=== PATIENT | female | born 1945 | race Caucasian/White ===

== ENCOUNTER 2016-12-05 10:52 | Inpatient (IN) | payer MEDICARE, OTHER ==
[~2016-12-05] VITALS: Ht 152.4 cm; Wt 77.1 kg
[~2016-12-05 10:52] MED LIST: ACET500T68 PO; ALBU0.63 NEB; ALPR0.5T6 PO; ASPI81TA2 PO; ATOR10TA60 PO; CEPH500C PO; CHOL2000 PO; CLON0.2T PO; COLE1TAB2 PO; DARB100D SQ; DARB10SY IJ; DICL100G7 TP; DIPH50DI IJ; FAMO20TA5 PO; FENT100D IV; FURO-68 PO; FURO40TA4 PO; GABA-585 PO; GLIP5TAB10 PO; HYDR-2666 PO; HYDR-2868 PO; HYDROCODONE PO; INSU100C SQ; INSU100C4 SQ; INSU100I13 SQ; INSU100I17 SQ; INSU100I27 SQ; INSU100V31 SQ; INSU100V8 SQ; ISOS30TA17 PO; LACT20SO PO; LEVO100T5 PO; LEVO500T38 PO; LEVO75TA5 PO; LISI-334 PO; MAGN400C PO; MECL25TA3 PO; METH-37 PO; METO2.5T5 PO; METO25TA4 PO; METO25TA9 PO; MORP2CAR IV; MULT-208 PO; NAPR220C4 PO; NITR0.4T6 SL; OMEP20CA9 PO; ONDA-35 PO; ONDA4TAB12 PO; PANT40TA5 PO; POTA20TA12 PO; PRED-220 PO; RIFA550T PO; SERT50TA8 PO; SIMV20TA PO; SPIR50TA PO; ZOLP5TAB5 PO; [UNRECOGNIZED DRUG - CODE] IV; welchol PO
[2016-12-05 13:48] LABS: BILIRUBIN,URINE NEGATIVE (NEG); GLUCOSE,URINE >=1000 mg/dL (NEG); NITRITE,URINE NEGATIVE (NEG); PROTEIN,URINE 100 mg/dL (NEG-TRACE); UROBILINOGEN,URINE 0.2 mg/dL (0.2 mg/dL)
--- NOTE | 2016-12-05 14:05 | ED.ADGEN ---
Past Medical History Past Medical History: Asthma, CHF, COPD, CVA, Depression, Diabetes-Type II, GERD, High Cholesterol, Hypertension, Hypothyroid, Renal Disease, Renal Failure , Other Additional Past Medical Histor: vertigo, Charcoe Qiana Tooth, neuropathy, Cirrhosis Past Surgical History: Hysterectomy, Other Additional Past Surgical Histo: bilat cataracts, L knee, bilat carpal tunnel, R trigger finger, R foot Alcohol Use: None Drug Use: None Adult General Chief Complaint Chief Complaint: MULTIPLE COMPLAINTS HPI HPI Patient is a 71 year old woman, history of type II diabetes mellitus, end- stage renal disease l disease on hemodialysis, hypertension, hyperlipidemia, CHF , COPD, CVA, Zktwbbm-Bxwar-Szhzs disease, who presents to the emergency department with complaint of difficulty moving her right upper extremity. Patient states that she did so last night were her arm felt like it was curled, and she was unable to flex or extend, states that her rubbed her hand and her forearm, and eventually did relax and she is able to use her hand again. States that she had some numbness in the right arm and hand as well, also in the right lower extremity. She states that this occurred this morning for a second time, both times it lasted about 50-30 minutes, currently is resolved with that she has some residual numbness in these extremities at this time. Denies any vision changes, any headache, any injuries, any other areas of weakness, numbness or tingling. States she had similar symptoms previously, that time she had a stroke. Review of Systems Review of Systems Constitutional: Denies fever or chills. [] Eyes: Denies change in visual acuity. [] HENT: Denies nasal congestion or sore throat. [] Respiratory: Denies cough or shortness of breath. [] Cardiovascular: Denies chest pain or edema. [] GI: Denies abdominal pain, nausea, vomiting, bloody stools or diarrhea. [] : Denies dysuria. [] Musculoskeletal: Denies back pain or joint pain. [] Integument: Denies rash. [] Neurologic: Denies headache, weakness and numbness in the right upper and lower extremity. Endocrine: Denies polyuria or polydipsia. [] Lymphatic: Denies swollen glands. [] Psychiatric: Denies depression or anxiety. [] Allergies Allergies Allergies Coded Allergies Type Severity Reaction Last Updated Verified adhesive Allergy Intermediate Rash 04/09/16 Yes Physical Exam Physical Exam Constitutional: Well developed, well nourished, no acute distress, non-toxic appearance. [] HENT: Normocephalic, atraumatic, bilateral external ears normal, oropharynx moist, no oral exudates, nose normal. [] Eyes: PERRLA, EOMI, conjunctiva normal, no discharge. [] Neck: Normal range of motion, no tenderness, supple, no stridor. [] Cardiovascular:Heart rate regular rhythm, no murmur [] Lungs & Thorax: Bilateral breath sounds clear to auscultation [] Abdomen: Bowel sounds normal, soft, no tenderness, no masses, no pulsatile masses. [] Skin: Warm, dry, no erythema, no rash. [] Back: No tenderness, no CVA tenderness. [] Extremities: No tenderness, no cyanosis, no clubbing, ROM intact, no edema. [] Neurologic: Alert and oriented X 3, normal motor function, normal sensory function, no focal deficits noted. [] Psychologic: Affect normal, judgement normal, mood normal. [] Current Patient Data Vital Signs Vital Signs Date Time Temp Pulse Resp B/P Pulse Ox O2 Delivery O2 Flow Rate FiO2 12/05/16 15:00 68 17 188/80 96 Room Air 12/05/16 13:07 98.3 98.3 Lab Values Laboratory Tests Test 12/05/16 13:30 12/05/16 14:15 Urine Collection Type Unknown Urine Color Yellow Urine Clarity Turbid Urine pH 5.0 Urine Specific Decker 1.015 Urine Protein 100mg/dL (NEG-TRACE) Urine Glucose (UA) >=1000mg/dL (NEG) Urine Ketones (Stick) Negativemg/dL (NEG) Urine Blood Moderate (NEG) Urine Nitrite Negative (NEG) Urine Bilirubin Negative (NEG) Urine Urobilinogen Dipstick 0.2mg/dL (0.2 mg/dL) Urine Leukocyte Esterase Large (NEG) Urine RBC 0/HPF (0-2) Urine WBC Tntc/HPF (0-4) Urine Squamous Epithelial Cells Few/LPF Urine Bacteria Few/HPF (0-FEW) Urine Opiates Screen Neg (NEG) Urine Methadone Screen Neg (NEG) Urine Barbiturates Neg (NEG) Urine Phencyclidine Screen Neg (NEG) Urine Amphetamine/Methamphetamine Neg (NEG) Urine Benzodiazepines Screen Neg (NEG) Urine Cocaine Screen Neg (NEG) Urine Cannabinoids Screen Neg (NEG) Urine Ethyl Alcohol Neg (NEG) White Blood Count 3.3x10^3/uL (4.0-11.0) L Red Blood Count 3.49x10^6/uL (3.50-5.40) L Hemoglobin 10.8g/dL (12.0-15.5) L Hematocrit 30.7% (36.0-47.0) L Mean Corpuscular Volume 88fL (79-100) Mean Corpuscular Hemoglobin 31pg (25-35) Mean Corpuscular Hemoglobin Concent 35g/dL (31-37) Red Cell Distribution Width 15.5% (11.5-14.5) H Platelet Count 45x10^3/uL (140-400) L Neutrophils (%) (Auto) 76% (31-73) H Lymphocytes (%) (Auto) 14% (24-48) L Monocytes (%) (Auto) 7% (0-9) Eosinophils (%) (Auto) 2% (0-3) Basophils (%) (Auto) 1% (0-3) Neutrophils # (Auto) 2.5x10^3uL (1.8-7.7) Lymphocytes # (Auto) 0.5x10^3/uL (1.0-4.8) L Monocytes # (Auto) 0.2x10^3/uL (0.0-1.1) Eosinophils # (Auto) 0.1x10^3/uL (0.0-0.7) Basophils # (Auto) 0.0x10^3/uL (0.0-0.2) Prothrombin Time 15.8SEC (11.7-14.0) H Prothrombin Time INR 1.3 (0.8-1.1) H PTT 39SEC (24-38) H Sodium Level 139mmol/L (136-145) Potassium Level 4.5mmol/L (3.5-5.1) Chloride Level 103mmol/L (98-107) Carbon Dioxide Level 26mmol/L (21-32) Anion Gap 10 (6-14) Blood Urea Nitrogen 45mg/dL (7-20) H Creatinine 3.9mg/dL (0.6-1.0) H Estimated GFR (Cockcroft-Gault) 11.4 BUN/Creatinine Ratio 12 (6-20) Glucose Level 461mg/dL (70-99) H Calcium Level 8.0mg/dL (8.5-10.1) L Phosphorus Level 4.9mg/dL (2.6-4.7) H Magnesium Level 2.0mg/dL (1.8-2.4) Total Bilirubin 0.8mg/dL (0.2-1.0) Aspartate Amino Transferase (AST) 18U/L (15-37) Alanine Aminotransferase (ALT) 27U/L (14-59) Alkaline Phosphatase 219U/L (46-116) H Troponin I Quantitative 0.020ng/mL (0.000-0.055) VI-Qmr-Y-Type Natriuretic Peptide 3921pg/mL (0-124) H Total Protein 6.7g/dL (6.4-8.2) Albumin 3.1g/dL (3.4-5.0) L Albumin/Globulin Ratio 0.9 (1.0-1.7) L Laboratory Tests 12/05/16 14:15 Laboratory Tests 12/05/16 14:15 EKG EKG EC: Sinus rhythm, heart rate 69 bpm, left axis deviation, QTC of 426, VA of 224, QRS of 80, no ST elevations or depressions, aside from left axis deviation, no other significant abnormalities identified. As interpreted by me. Radiology/Procedures Radiology/Procedures [] [facility] [address] [place], [place] [id number] IMAGING REPORT Signed PATIENT: YIN DIAZ ACCOUNT: [id number] : 1945 LOCATION: ER AGE: 71 SEX: F EXAM STATUS: REG ER ORD. PHYSICIAN: CAROLYN BOLAND DO REASON: LUE weakness PROCEDURE: CHEST AP ONLY Portable chest, 12/05/2016: History: Left upper extremity weakness Comparison is made to a study from 08/23/2016. The heart is enlarged. The pulmonary vascularity is at the upper limits of normal. No pulmonary infiltrates are seen. There is slight blunting of the lateral costophrenic angle suggesting a small amount of pleural fluid. IMPRESSION: 1. Cardiomegaly. 2. Probable tiny pleural effusions. DICTATED and SIGNED BY: RUPALI SLATER MD DATE: 12/05/16 1432 CC: CATHLEEN OLGUIN; CAROLYN BOLAND DO ~ Impressions: [facility] [address] [place] [address] IMAGING REPORT Signed PATIENT: YIN DIAZ ACCOUNT: [id number] : 1945 LOCATION: ER AGE: 71 SEX: F EXAM STATUS: REG ER ORD. PHYSICIAN: CAROLYN BOLAND DO REASON: LUE weakness PROCEDURE: CT HEAD WO CONTRAST CT of the head without contrast, 12/05/2016: History: Left upper extremity weakness Comparison is made to a study from 08/23/2016. There is moderate cerebral atrophy. The ventricles are within normal limits in size. There is no shift of the midline structures. There is no evidence of acute intracranial hemorrhage or mass effect. There is an unchanged single calcification in the right basal ganglia. IMPRESSION: No acute intracranial abnormality is detected. PQRS Compliance Statement: One or more of the following individualized dose reduction techniques were utilized for this examination: 1. Automated exposure control 2. Adjustment of the mA and/or kV according to patient size 3. Use of iterative reconstruction technique DICTATED and SIGNED BY: RUPALI SLATER MD DATE: 12/05/16 1448 CC: CATHLEEN OLGUIN; CAROLYN BOLAND DO ~ Course & Med Decision Making Course & Med Decision Making Pertinent Labs and Imaging studies reviewed. (See chart for details) Patient's examination does not reveal any evidence of motor function at this time, she does have some decreased sensation in the right upper and right lower extremity. CT of the head did not reveal any evidence of acutely concerning findings, patient did miss dialysis today, and her chest x-ray reveals some mild congestion. Laboratory studies not reveal any evidence of electrolyte abnormalities of a contributed to this finding. I did discuss findings as above with Dr. Jones of neurology with the patient, he recommends admission to the hospital for EEG and MRI to further elucidate her symptoms, as a possible focal seizure versus dystonia. Patient has had no recurrence of her symptoms at this time. Patient is agreeable with plan as stated, will also consult Dr. Miller the patient's teacher theater arts for establishing hemodialysis in the hospital. Findings as above discussed with Dr. Ledezma of internal medicine, patient accepted to his service as a full admission to the medical telemetry floor with plan as above. Bridge orders entered per discussion. Dragon Disclaimer Dragon Disclaimer This electronic medical record was generated, in whole or in part, using a voice recognition dictation system. Departure Impression: Primary Impression: Neurological complaint Additional Impressions: End stage renal disease Pulmonary edema Disposition: ADMITTED INPATIENT Admitting Physician: Kira Ledezma Condition: IMPROVED Problem Qualifiers CAROLYN BOLAND DO Dec 05, 2016 14:05
[2016-12-05 14:06] LABS: BACTERIA,URINE FEW /HPF (0-FEW); RBC,URINE 0 /HPF (0-2); SQUAMOUS EPITHELIAL CELL,UR FEW /LPF; WBC,URINE TNTC /HPF (0-4)
[2016-12-05 14:36] LABS: BASO % 1 % (0-3); EOS % 2 % (0-3); HEMATOCRIT 30.7 % (36.0-47.0); HEMOGLOBIN 10.8 g/dL (12.0-15.5); LYMPH # 0.5 x10^3/uL (1.0-4.8); LYMPH % 14 % (24-48); MEAN CORPUSCULAR HEMOGLOBIN 31 pg (25-35); MEAN CORPUSCULAR HGB CONC 35 g/dL (31-37); MEAN CORPUSCULAR VOLUME 88 fL (79-100); MONO % 7 % (0-9); NEUT % 76 % (31-73); PLATELET COUNT 45 x10^3/uL (140-400); RED BLOOD COUNT 3.49 x10^6/uL (3.50-5.40); RED CELL DISTRIBUTION WIDTH 15.5 % (11.5-14.5); WHITE BLOOD COUNT 3.3 x10^3/uL (4.0-11.0)
--- NOTE | 2016-12-05 14:36 | RAD ---
Portable chest, 12/05/2016: History: Left upper extremity weakness Comparison is made to a study from 08/23/2016. The heart is enlarged. The pulmonary vascularity is at the upper limits of normal. No pulmonary infiltrates are seen. There is slight blunting of the lateral costophrenic angle suggesting a small amount of pleural fluid. IMPRESSION: 1. Cardiomegaly. 2. Probable tiny pleural effusions.
[2016-12-05 14:47] LABS: INR 1.3 (0.8-1.1); PROTHROMBIN TIME PATIENT 15.8 SEC (11.7-14.0)
[2016-12-05 14:47] LABS: BARBITURATES NEG (NEG); BENZODIAZEPINES NEG (NEG); CANNABINOIDS NEG (NEG); COCAINE NEG (NEG); METHADONE NEG (NEG); OPIATES NEG (NEG); PHENCYCLIDINE NEG (NEG)
[2016-12-05 14:52] LABS: ETHANOL, URINE NEG (NEG)
--- NOTE | 2016-12-05 14:53 | RAD ---
CT of the head without contrast, 12/05/2016: History: Left upper extremity weakness Comparison is made to a study from 08/23/2016. There is moderate cerebral atrophy. The ventricles are within normal limits in size. There is no shift of the midline structures. There is no evidence of acute intracranial hemorrhage or mass effect. There is an unchanged single calcification in the right basal ganglia. IMPRESSION: No acute intracranial abnormality is detected. PQRS Compliance Statement: One or more of the following individualized dose reduction techniques were utilized for this examination: 1. Automated exposure control 2. Adjustment of the mA and/or kV according to patient size 3. Use of iterative reconstruction technique
[2016-12-05 14:57] LABS: CREATININE 3.9 mg/dL (0.6-1.0); GFR 11.4; POTASSIUM 4.5 mmol/L (3.5-5.1)
--- NOTE | 2016-12-05 15:00 | EKG ---
[facility] [address] [place] [address] Test Date: 2016-12-05 Test Time: 14:27:24 Pat Name: YIN DIAZ Department: Room: Gender: F Hospital Nurse Liaison: : 1945 Requested By: CAROLYN BOLAND Order Number: [id number] Reading MD: Measurements Intervals [place] Rate: 69 P: 27 [place]: 224 QRS: -8 QRSD: 88 T: 72 QT: 396 QTc: 426 Interpretive Statements SINUS RHYTHM PROLONGED OH INTERVAL LEFTWARD AXIS T ABNORMALITY IN HIGH LATERAL LEADS RI6.01 No previous ECG available for comparison
[2016-12-05 15:02] LABS: ALBUMIN 3.1 g/dL (3.4-5.0); ALBUMIN/GLOBULIN RATIO 0.9 (1.0-1.7); TOTAL BILIRUBIN 0.8 mg/dL (0.2-1.0); TOTAL PROTEIN 6.7 g/dL (6.4-8.2)
[2016-12-05 15:25] LABS: PHOSPHORUS 4.9 mg/dL (2.6-4.7)
[2016-12-05] MEDS ORDERED: DEXTROSE 50% 25 GM / 50ML DISP.SYRIN. IV PRN (15:45)
[2016-12-05] MEDS ORDERED: ACETAMINOPHEN 325 MG TABLET. PO PRN (15:45)
[2016-12-05] MEDS ORDERED: LORAZEPAM 0.5 MG TABLET. PO PRN (16:45)
[2016-12-05 17:16] VITALS: BP 164/68
[2016-12-05 17:17] VITALS: BP 164/68
[2016-12-05] MEDS ORDERED: INSU200I SQ (17:39)
[2016-12-05] MEDS ORDERED: INSULIN ASPART 300 UNITS/3 ML INSULN.PEN SQ ONE ×2 (17:45→21:30)
[2016-12-05] MEDS: INSULIN ASPART 300 UNITS/3 ML INSULN.PEN SQ SCH (18:27)
[2016-12-05 19:20] VITALS: BP 173/59
--- NOTE | 2016-12-05 19:23 | ACF ---
Admission Forms Criteria NEUROLOGY GRG Clinical Indications for Admission to Inpatient Care (Place ' X' for any and all applicable criteria): Hospital admission is needed for appropriate care of the patient because of 1 or more of the following: [ ]I. Encephalitis [ ]II. Severe LOW PR[employer]URE BOILER TENDER infections indicated by 1 or more of the following(1)(2)(3) : [ ]a) Intracranial abscess [ ]b) Spinal abscess or myelitis [ ]c) Tuberculous or other nonbacterial, nonviral LOW PRESSURE BOILER TENDER infection(8) [ ]III. Vasculitis and 1 or more of the following(14)(15): []a) Altered mental status that is severe or persistent or other acute neurologic change []b) Psychosis []c) Seizure [ ]IV. Status epilepticus or repetitive seizures not controlled with emergent treatment [A] (7)(8) [ ]V. Altered mental status that is severe or persistent [ ]. Transient alteration in consciousness with high-risk etiology; examples include (12)(13): [ ]a) Cardiovascular source [ ]b) Cataplexy [ ]VII. Cerebral aneurysm requiring ANY ONE of the following(14): [ ]a) IV antihypertensives or vasoactive agents [ ]b) Sedation and analgesia for suspected leak [ ]c) Need for external ventricular drainage and cerebral perfusion pressure monitoring [ ]d) Emergent evaluation to determine need for surgical clipping or endovascular coiling by interventional radiology. If surgery is required ( Also use Craniotomy, Supratentorial, for Surgery of Bleeding Intracranial Aneurysm (for bleeding aneurysm) or Craniotomy, Supratentorial (for nonbleeding aneurysm) as appropriate. [X]VIII. New-onset severe neurologic symptom requiring inpatient care indicated by ANY ONE of the following: [ ]a) Aphasia(15) [ ]b) Weakness (grade 3 or less) [ ]c) Paralysis (eg, hemiplegia) [ ]d) Spasticity(16) [ ]e) Dystonia [ ]e) Ataxia(17) [ ]f) Amnesia(18) [ ]g) Involuntary movements(19) [ ]h) Vertigo [ ] Visual loss [X]i) Other severe neurologic finding (eg, papilledema, mass effect on imaging, myoclonus not treatable at alternative level of care (eg, observation care) [ ]IX. Guillain-Independence syndrome(20) [ ]X. Myasthenia gravis crisis or inpatient monitoring need as indicated by 1 or more of the following(21): [ ]a) Intensive treatment (eg, course of plasmapheresis) with inadequate outpatient situation to monitor patients status [ ]b) Inadequate airway protection [ ]c) Respiratory insufficiency requiring intubation or inpatient. monitoring [ ]d) Progressive dysphagia with failure to thrive [ ]XI. Multiple sclerosis or other acute demyelinating disease requiring inpatient care as indicated by 1 or more of the following (22)(23): [ ]a) Acute severe deterioration requiring inpatient treatment (eg, IV steroids, plasmapheresis, close observation) [ ]b) Acute complication requiring inpatient care (eg, sepsis, severe decubitus, aspiration) [ ]XII.Parkinson disease requiring inpatient care (Also use Optimal Recovery Care Criteria or General Recovery Criteria as appropriate) indicated by 1 or more of the following(25): [ ]a) Infection (eg, aspiration pneumonia) not treatable at alternative level of care [ ]b Dehydration that is severe or persistent [ ]c) Life-threatening agitation or psychotic behavior not treatable on emergency, observation care, or alternative level (eg, residential) basis [ ]d) Severe medication withdrawal effects (eg, freezing, neuroleptic malignant syndrome) not responsive to emergency and observation care treatment ( as appropriate) [ ]e) Other severe manifestation not treatable at alternative level of care [ ]XII. Amyotrophic lateral sclerosis with inpatient care needs as indicated by ANY ONE of the following(26): [ ]a) Acute complications (eg, aspiration pneumonia, sepsis ) requiring inpatient care ( see other optimal Recovery Guideline as appropriate) [ ]b) Dehydration that is severe persistent AND artificial support desired [ ]c) Inadequate airway protection AND artificial support desired [ ]d) Severe ventilatory insufficiency AND artificial support desired [ ]XIII. Myasthenia gravis crisis or inpatient monitoring need as indicated by 1 or more of the following(21): [] a) Inadequate airway protection []b) Respiratory insufficiency requiring intubation or inpatient monitoring []c) Progressive dysphagia with failure to thrive []d) Intensive treatment (e.g., course of plasmapheresis) with inadequate outpatient situation to monitor patients status [ ]XIV. Multiple sclerosis or other acute demyelinating disease requiring inpatient care indicated by 1 or more of the following[C](36)(43)(44)(45)(46): []a) Acute severe deterioration requiring inpatient treatment (eg, IV steroids, plasmapheresis, close observation) []b) Acute complication requiring inpatient care (eg, sepsis, severe decubitus, aspiration) [ ]XV. Intracranial hypertension (e.g., pseudotumor cerebri) requiring inpatient care (e.g., acute visual loss, inadequate oral intake) (47)(48)(49) [ ]XVI. Parkinson disease requiring inpatient care (Also use Optimal Recovery Care Criteria or General Recovery Criteria as appropriate) indicated by 1 or more of the following(25): [] a) Infection (e.g., aspiration pneumonia) not treatable at alternative level of care []b) Volume depletion not responsive to emergency and observation care treatment (as appropriate) []c) Life-threatening agitation or psychotic behavior not treatable on emergency, observation care, or alternative level (e.g., residential) basis []d) Severe medication withdrawal effects (e.g., freezing, neuroleptic malignant syndrome) not responsive to emergency and observation care treatment (as appropriate) []e) Other severe manifestation not treatable at alternative level of care [ ]XVII. Amyotrophic lateral sclerosis with inpatient care needs as indicated by1 or more of the following(42): []a) Acute complications (eg, aspiration pneumonia, sepsis) requiring inpatient care (see other Optimal Recovery Guideline or General Recovery Guideline as appropriate) []b) Dehydration that is severe or persistent AND artificial support desired []c) Inadequate airway protection AND artificial support desired []d) Severe ventilatory insufficiency AND artificial support desired [ ]XVIII. Severe myopathy, neuropathy, or other neuromuscular disease indicated by 1 or more of the following(42)(52)(53)(54): []a ) New-onset severe diffuse weakness (eg, strength 3/5 or less) []b) Severe dysphagia []c) Dyspnea at rest or with minimal exertion (new) []d) Inadequate airway protection []e) Inadequate ventilation indicated by 1 or more of the following : i) Partial pressure of carbon dioxide greater than 44 mm Hg ( 5.9 kPa) (new) ii) Reduced peak expiratory flow rate (new) iii) Vital capacity less than 50% of predicted (less than 15 mL/kg) iv) Peak inspiratory force less negative than -30 cm H2O (- 2942 Pa) [ ]XVII.Complications of congenital or degenerative disease (eg, infection, seizures, dehydration, injury) not responsive to emergency and observation care treatment (as appropriate ) [C](16)(29)(30) [ ]XVIII.Suspected or confirmed nerve or muscle toxic injury, including ANY ONE of the following: [ ]a) Rhabdomyolysis(31) i) Acute renal failure ii) Dehydration that is severe or persistent iii) Altered mental status that is severe or persistent iv) Electrolyte abnormality that remains after emergency or observation level care ( as appropriate) [ ]b) Botulism(32) [ ]c) Other severe toxin-induced sign or symptom [ ]XIX. Neurologic trauma requiring inpatient treatment (medical) indicated by ANY ONE of the following(33)(34): [ ]a) Vital signs or neurologic signs more frequently than every 4 hours [ ]b) Hyperosmolar therapy [ ]c) Respiratory monitoring [ ]d) Intracranial pressure monitoring and treatment [ ]e) Stabilization and immobilization device placement (eg, braces, body jacket) [ ]f) Intubation & mechanical ventilation for airway protection or therapeutic hyperventilation [ ]g) Other treatment or monitoring needed that requires inpatient level of care [ ]XX.Complications of neurologic devices (eg, ventricular shunt, neurostimulator) requiring 1 or more of the following(35)(36): [ ]a) IV antibiotics with monitoring while awaiting culture results [ ]b) Monitoring for hydrocephalus [ ]XXI. Neurology condition symptom, or finding for which emergency and observation care have failed or are not considered appropriate. See General Criteria: Observation Care ISC, General Admission Criteria GRG, or Pediatric General Admission Criteria GRG guideline as appropriate. The original [facility] [employer] content created by [facility] has been revised. The portions of the content which have been revised are identified through the use of italic text or in bold, and [facility] has neither reviewed nor approved the modified material. All other unmodified content is copyright [facility] Please see references footnoted in the original [facility] edition 2016 Admission Criteria Met?: Yes DAVID HAMPTON Dec 05, 2016 19:23
--- NOTE | 2016-12-05 19:26 | PDOC2 ---
NEUROLOGY CONSULT Date of Admission Date of Admission DATE: 12/05/16 TIME: 19:12 Reason for Consult Reason for Consult: IMPRESSION: Right hand spasm x 2 days. Hyperglycemia, glucose 461. Bilateral carpal tunnel syndrome in past. Renal failure on dialysis. Pancytopenia. Thrombocytopenia. Hypocalcemia. UTI DM HTN HLD COPD Hypothyroidism Cardiomegaly. CHF RECOMMENDATIONS/PLAN: Treat medical diseases. Brain MRI was ordered. Lab: see orders. Please consult Hematology. OT/PT. HISTORY OF THE PRESENT ILLNESS: 71-y-old female patient with complicated medical diseases multiple complaints to come to the ER of [facility]. She also complained of right hand intermittent spasm since 12/04, so Neurology was called for consultation. She has renal failure on dialysis and calcium was low. No focalized motor or sensory deficits. PAST MEDICAL HISTORY: Please see above. PAST SURGERY HISTORY: Bilateral carpal tunnel release. Left knee surgery. ALLERGY: Reviewed. MEDICATIONS: Refer to [facility] FAMILY HISTORY: Non contributory. SOCIAL HISTORY: Denies illicit drug use. REVIEW OF SYSTEMS: Constitutional: No malnutrition, cachexia. Head: No traumatic brain or head injury. Skin: No edema, or rash. Ear: No infection, tinnitus. Eyes: No vision loss or color blindness. Nose: No bleeding or purulent discharges. Hearing: Hearing decrease. Neck: No injury. Breast: No history of cancer, masses,or discharges. Cardiac: CHF, HTN, HLD. Pulmonary: COPD. GI: No GI ulcer, GI bleeding. Urinary/genital: UTI. Endocrinologic: Diabetes Mellitus, hypothyroidism Skeletomuscular: No muscular atrophy, deformity. Neurological: see HP. Psychiatric: Denies drug use/abuse. Otherwise, not -alkwr review of systems. PHYSICAL EXAMINATION: General appearance is in subacute distress. HEENT: Normocephalic and nontraumatic. Eyes, nose, ears, and throat are unremarkable. Neck is supple. No lymphadenopathy. No crepitus. Cardiovascular: S1, S2, regular rate and rhythm. Pulmonary: Clear to auscultation bilaterally. Abdomen: Bowel sounds are positive. Extremities: No rash, lesions, or edema. No restriction of range of motion NEUROLOGICAL EXAMINATION: Awake. Oriented to time, place and person. PERRL. EOMI. CN: no focal findings. Muscle tone: within normal. Muscle strength: 4 DTR: 2 Plantar reflex: Flexor response bilaterally Gait: not examined in chair. Sensory exam: no abnormal findings. No cerebellar signs elicited. F-T-N test fine. Right hand spasm mild. Current Medications Current Medications Current Medications Acetaminophen (Tylenol) 650 mg PRN Q4HRS PRN PO FEVER; Start 12/05/16 at 15:45 ; Stop 12/06/16 at 15:44 Insulin Aspart (Novolog) 0-5 UNITS TIDWMEALS SQ Last administered on 12/05/16 18:27; Start 12/05/16 at 17:00 Dextrose (Dextrose 50%-Water Syringe) 12.5 gm PRN Q15MIN PRN IV SEE COMMENTS; Start 12/05/16 at 15:45 Lorazepam (Ativan) 0.5 mg PRN TID PRN PO TREMORS; Start 12/05/16 at 16:45 Insulin Aspart (Novolog) 15 units 1X ONCE SQ Last administered on 12/05/16 18 :27; Start 12/05/16 at 17:45; Stop 12/05/16 at 17:47; Status DC Active Scripts Active Lactulose 20 Gm/30 Ml Solution 30 Gm PO DAILY 30 Days Hydrocodone-Apap 5-325 (Hydrocodone Bit/Acetaminophen) 1 Each Tablet 1 Tab PO PRN Q6HRS PRN Reported Humalog Kwikpen (Insulin Lispro) 200 Unit/1 Ml Insuln.pen 20-30 Unit SQ TID Ondansetron Hcl 4 Mg Tablet 4 Mg PO Q6HRS PRN Zolpidem Tartrate 5 Mg Tablet 5 Mg PO PRN QHS PRN Famotidine 20 Mg Tablet 20 Mg PO DAILY Voltaren (Diclofenac Sodium) 100 Gm Gel..gram. 1 Gm TP TID Alprazolam 0.5 Mg Tablet 0.5 Mg PO Q8HRS PRN Gabapentin 100 Mg Capsule 100 Mg PO TID Levothyroxine Sodium 100 Mcg Tablet 1 Tab PO DAILY Clonidine Hcl 0.2 Mg Tablet 0.2 Mg PO DAILY PRN Xifaxan (Rifaximin) 550 Mg Tablet 1 Tab PO BID Metoprolol Tartrate 25 Mg Tablet 1 Tab PO DAILY Isosorbide Dinitrate 30 Mg Tablet 1 Tab PO DAILY Allergies Allergies: Coded Allergies: adhesive (Verified Allergy, Intermediate, Rash, 04/09/16) TAPE Vitals VITALS Vital Signs Date Time Temp Pulse Resp B/P Pulse Ox O2 Delivery O2 Flow Rate FiO2 12/05/16 17:17 97.5 71 19 164/68 95 Room Air 97.5 Labs Labs Laboratory Tests Test 12/05/16 13:30 12/05/16 14:15 12/05/16 17:22 Urine Collection Type Unknown Urine Color Yellow Urine Clarity Turbid Urine pH 5.0 Urine Specific [place] 1.015 Urine Protein 100mg/dL (NEG-TRACE) Urine Glucose (UA) >=1000mg/dL (NEG) Urine Ketones (Stick) Negativemg/dL (NEG) Urine Blood Moderate (NEG) Urine Nitrite Negative (NEG) Urine Bilirubin Negative (NEG) Urine Urobilinogen Dipstick 0.2mg/dL (0.2 mg/dL) Urine Leukocyte Esterase Large (NEG) Urine RBC 0/HPF (0-2) Urine WBC Tntc/HPF (0-4) Urine Squamous Epithelial Cells Few/LPF Urine Bacteria Few/HPF (0-FEW) Urine Opiates Screen Neg (NEG) Urine Methadone Screen Neg (NEG) Urine Barbiturates Neg (NEG) Urine Phencyclidine Screen Neg (NEG) Urine Amphetamine/Methamphetamine Neg (NEG) Urine Benzodiazepines Screen Neg (NEG) Urine Cocaine Screen Neg (NEG) Urine Cannabinoids Screen Neg (NEG) Urine Ethyl Alcohol Neg (NEG) White Blood Count 3.3x10^3/uL (4.0-11.0) Red Blood Count 3.49x10^6/uL (3.50-5.40) Hemoglobin 10.8g/dL (12.0-15.5) Hematocrit 30.7% (36.0-47.0) Mean Corpuscular Volume 88fL (79-100) Mean Corpuscular Hemoglobin 31pg (25-35) Mean Corpuscular Hemoglobin Concent 35g/dL (31-37) Red Cell Distribution Width 15.5% (11.5-14.5) Platelet Count 45x10^3/uL (140-400) Neutrophils (%) (Auto) 76% (31-73) Lymphocytes (%) (Auto) 14% (24-48) Monocytes (%) (Auto) 7% (0-9) Eosinophils (%) (Auto) 2% (0-3) Basophils (%) (Auto) 1% (0-3) Neutrophils # (Auto) 2.5x10^3uL (1.8-7.7) Lymphocytes # (Auto) 0.5x10^3/uL (1.0-4.8) Monocytes # (Auto) 0.2x10^3/uL (0.0-1.1) Eosinophils # (Auto) 0.1x10^3/uL (0.0-0.7) Basophils # (Auto) 0.0x10^3/uL (0.0-0.2) Prothrombin Time 15.8SEC (11.7-14.0) Prothromb Time International Ratio 1.3 (0.8-1.1) Activated Partial Thromboplast Time 39SEC (24-38) Sodium Level 139mmol/L (136-145) Potassium Level 4.5mmol/L (3.5-5.1) Chloride Level 103mmol/L (98-107) Carbon Dioxide Level 26mmol/L (21-32) Anion Gap 10 (6-14) Blood Urea Nitrogen 45mg/dL (7-20) Creatinine 3.9mg/dL (0.6-1.0) Estimated GFR (Cockcroft-Gault) 11.4 BUN/Creatinine Ratio 12 (6-20) Glucose Level 461mg/dL (70-99) Calcium Level 8.0mg/dL (8.5-10.1) Phosphorus Level 4.9mg/dL (2.6-4.7) Magnesium Level 2.0mg/dL (1.8-2.4) Total Bilirubin 0.8mg/dL (0.2-1.0) Aspartate Amino Transf (AST/SGOT) 18U/L (15-37) Alanine Aminotransferase (ALT/SGPT) 27U/L (14-59) Alkaline Phosphatase 219U/L (46-116) Troponin I Quantitative 0.020ng/mL (0.000-0.055) NL-Adh-P-Type Natriuretic Peptide 3921pg/mL (0-124) Total Protein 6.7g/dL (6.4-8.2) Albumin 3.1g/dL (3.4-5.0) Albumin/Globulin Ratio 0.9 (1.0-1.7) Glucose (Fingerstick) 360mg/dL (70-99) Laboratory Tests Test 12/05/16 13:30 12/05/16 14:15 12/05/16 17:22 Urine Collection Type Unknown Urine Color Yellow Urine Clarity Turbid Urine pH 5.0 Urine Specific [place] 1.015 Urine Protein 100mg/dL (NEG-TRACE) Urine Glucose (UA) >=1000mg/dL (NEG) Urine Ketones (Stick) Negativemg/dL (NEG) Urine Blood Moderate (NEG) Urine Nitrite Negative (NEG) Urine Bilirubin Negative (NEG) Urine Urobilinogen Dipstick 0.2mg/dL (0.2 mg/dL) Urine Leukocyte Esterase Large (NEG) Urine RBC 0/HPF (0-2) Urine WBC Tntc/HPF (0-4) Urine Squamous Epithelial Cells Few/LPF Urine Bacteria Few/HPF (0-FEW) Urine Opiates Screen Neg (NEG) Urine Methadone Screen Neg (NEG) Urine Barbiturates Neg (NEG) Urine Phencyclidine Screen Neg (NEG) Urine Amphetamine/Methamphetamine Neg (NEG) Urine Benzodiazepines Screen Neg (NEG) Urine Cocaine Screen Neg (NEG) Urine Cannabinoids Screen Neg (NEG) Urine Ethyl Alcohol Neg (NEG) White Blood Count 3.3x10^3/uL (4.0-11.0) Red Blood Count 3.49x10^6/uL (3.50-5.40) Hemoglobin 10.8g/dL (12.0-15.5) Hematocrit 30.7% (36.0-47.0) Mean Corpuscular Volume 88fL (79-100) Mean Corpuscular Hemoglobin 31pg (25-35) Mean Corpuscular Hemoglobin Concent 35g/dL (31-37) Red Cell Distribution Width 15.5% (11.5-14.5) Platelet Count 45x10^3/uL (140-400) Neutrophils (%) (Auto) 76% (31-73) Lymphocytes (%) (Auto) 14% (24-48) Monocytes (%) (Auto) 7% (0-9) Eosinophils (%) (Auto) 2% (0-3) Basophils (%) (Auto) 1% (0-3) Neutrophils # (Auto) 2.5x10^3uL (1.8-7.7) Lymphocytes # (Auto) 0.5x10^3/uL (1.0-4.8) Monocytes # (Auto) 0.2x10^3/uL (0.0-1.1) Eosinophils # (Auto) 0.1x10^3/uL (0.0-0.7) Basophils # (Auto) 0.0x10^3/uL (0.0-0.2) Prothrombin Time 15.8SEC (11.7-14.0) Prothromb Time International Ratio 1.3 (0.8-1.1) Activated Partial Thromboplast Time 39SEC (24-38) Sodium Level 139mmol/L (136-145) Potassium Level 4.5mmol/L (3.5-5.1) Chloride Level 103mmol/L (98-107) Carbon Dioxide Level 26mmol/L (21-32) Anion Gap 10 (6-14) Blood Urea Nitrogen 45mg/dL (7-20) Creatinine 3.9mg/dL (0.6-1.0) Estimated GFR (Cockcroft-Gault) 11.4 BUN/Creatinine Ratio 12 (6-20) Glucose Level 461mg/dL (70-99) Calcium Level 8.0mg/dL (8.5-10.1) Phosphorus Level 4.9mg/dL (2.6-4.7) Magnesium Level 2.0mg/dL (1.8-2.4) Total Bilirubin 0.8mg/dL (0.2-1.0) Aspartate Amino Transf (AST/SGOT) 18U/L (15-37) Alanine Aminotransferase (ALT/SGPT) 27U/L (14-59) Alkaline Phosphatase 219U/L (46-116) Troponin I Quantitative 0.020ng/mL (0.000-0.055) UT-Rfs-M-Type Natriuretic Peptide 3921pg/mL (0-124) Total Protein 6.7g/dL (6.4-8.2) Albumin 3.1g/dL (3.4-5.0) Albumin/Globulin Ratio 0.9 (1.0-1.7) Glucose (Fingerstick) 360mg/dL (70-99) GARY LOPES MD Dec 05, 2016 19:25
[2016-12-05] MEDS ORDERED: INSU100I13 SQ (19:51)
[2016-12-05] MEDS ORDERED: METO25TA9 PO (21:26)
[2016-12-05] MEDS ORDERED: CLONIDINE HCL 0.2 MG PO PRN (21:30)
[2016-12-05] MEDS ORDERED: HYDROCODONE/APAP 5/325MG TABLET. PO PRN (21:30)
[2016-12-05] MEDS ORDERED: ALPRAZOLAM 0.5 MG TABLET. PO PRN (21:30)
[2016-12-05] MEDS: ZOLPIDEM 5 MG TABLET. PO PRN (21:58)
[2016-12-05] MEDS: INSULIN DETEMIR 300 UNITS/3 ML INSULN.PEN. SQ SCH (22:02)
[2016-12-05] MEDS: RIFAXIMIN 550 MG TABLET PO SCH (22:02)
--- NOTE | 2016-12-05 23:01 | HP ---
ADMIT DATE: 12/05/2016 CHIEF COMPLAINT: Multiple complaints. HISTORY OF PRESENT ILLNESS: The patient is a pleasant 71-year-old female who has multiple medical problems. Basically, today she complains of right arm weakness. She complains that it is difficult to move. It shakes. She also has some associated neck pain. It appears she may have a possible stroke versus a TIA or even some atypical seizures. I have discussed the case with the ER physician. We are going to admit the patient and consult Neurology. PAST MEDICAL HISTORY: Cirrhosis, CHF, asthma, COPD, stroke, depression, anxiety, GERD, hyperlipidemia, diabetes, hypothyroidism, end-stage renal disease on dialysis, vertigo, Bbidesl-Ttrmn-[id number], neuropathy, cirrhosis, hysterectomy, bilateral cataracts, right trigger finger surgery, right foot surgery, bilateral carpal tunnel surgery. ALLERGIES: ADHESIVE. FAMILY HISTORY: Hypertension and strokes. SOCIAL HISTORY: She quit smoking. She is . 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 MEDICATIONS: Reviewed, please refer to the MRAD. REVIEW OF SYSTEMS: GENERAL: No history of weight change, weakness or fevers. SKIN: No bruising, hair changes or rashes. EYES: No blurred, double or loss of vision. NOSE AND THROAT: No history of nosebleeds, hoarseness or sore throat. HEART: No history of palpitations, chest pain or shortness of breath on exertion. LUNGS: Denies cough, hemoptysis, wheezing or shortness of breath. GASTROINTESTINAL: Denies changes in appetite, nausea, vomiting, diarrhea or constipation. GENITOURINARY: No history of frequency, urgency, hesitancy or nocturia. NEUROLOGIC: She complains of right arm weakness. PSYCHIATRIC: No history of panic, anxiety or depression. ENDOCRINE: No history of heat or cold intolerance, polyuria or polydipsia. EXTREMITIES: Denies muscle weakness, joint pain, pain on walking or stiffness. PHYSICAL EXAMINATION: VITAL SIGNS: Temperature afebrile, pulse 68, respirations 20, blood pressure 174/78. GENERAL: She is alert, cooperative, anxious. HEART: Normal S1, S2. LUNGS: Clear. ABDOMEN: Soft, positive bowel sounds. EXTREMITIES: 1+ edema. SKIN: No rashes. PSYCHIATRIC: She is anxious. VASCULAR: Good capillary refill. ENDOCRINE: No thyromegaly. LYMPHATICS: No cervical nodes. HEMATOPOIETIC: No bruising. NEUROLOGICAL: She is moving all extremities. The right arm is a little contracted at times. It shakes a little bit. It has got decreased screener and blender strength. LABORATORY DATA: White count 3, hemoglobin 10.8, platelets 45. Electrolytes: Sodium 139, potassium 4.5, chloride 103, bicarb 26, BUN 45, creatinine 3.9, glucose 461. CT of the head negative for acute disease. ASSESSMENT AND PLAN: Stroke-like symptoms versus a possible atypical seizure versus a nerve impingement in the neck. The patient has been admitted. We will consult Neurology. She also has pancytopenia. We will consult Hem/Onc, Dr. Gloria Matthews. Frequent labs, PT/OT. Resume home medicines. Cardiac monitoring. Consult Nephrology for dialysis. PROGNOSIS: Guarded. NIAL Jacinta CORREA DO DR: TRAE/susannah JOB#: [id number] / [id number]
[2016-12-05 23:25] VITALS: BP 152/43
[2016-12-06 03:25] VITALS: BP 141/58
[2016-12-06 04:13] LABS: BASO % 1 % (0-3); EOS % 3 % (0-3); HEMATOCRIT 28.2 % (36.0-47.0); HEMOGLOBIN 9.5 g/dL (12.0-15.5); LYMPH # 0.7 x10^3/uL (1.0-4.8); LYMPH % 16 % (24-48); MEAN CORPUSCULAR HEMOGLOBIN 30 pg (25-35); MEAN CORPUSCULAR HGB CONC 34 g/dL (31-37); MEAN CORPUSCULAR VOLUME 88 fL (79-100); MONO % 10 % (0-9); NEUT % 70 % (31-73); PLATELET COUNT 51 x10^3/uL (140-400); RED BLOOD COUNT 3.19 x10^6/uL (3.50-5.40); RED CELL DISTRIBUTION WIDTH 15.2 % (11.5-14.5); WHITE BLOOD COUNT 4.1 x10^3/uL (4.0-11.0)
[2016-12-06 04:26] LABS: CALCIUM 8.1 mg/dL (8.5-10.1); CREATININE 3.8 mg/dL (0.6-1.0); GFR 11.7; POTASSIUM 3.7 mmol/L (3.5-5.1)
[2016-12-06] MEDS: LEVOTHYROXINE 100 MCG TABLET PO SCH (06:04)
[2016-12-06 07:00] VITALS: BP 162/56
[2016-12-06] MEDS: INSULIN ASPART 300 UNITS/3 ML INSULN.PEN SQ SCH ×3 (08:00→17:22)
[2016-12-06] MEDS: DICLOFENAC SODIUM 1% TOPICAL GEL 100GM TUBE. TP SCH ×3 (08:55→20:35)
[2016-12-06] MEDS: LACTULOSE 20 GM/30 ML SOLUTION. PO SCH (08:56)
[2016-12-06] MEDS: RIFAXIMIN 550 MG TABLET PO SCH ×2 (08:56→20:33)
[2016-12-06] MEDS: FAMOTIDINE 20 MG TABLET. PO SCH (08:56)
[2016-12-06] MEDS: GABAPENTIN 100 MG CAPSULE. PO SCH ×3 (08:56→20:33)
[2016-12-06] MEDS ORDERED: ISOSORBIDE MONONITRATE ER 30 MG TAB.ER.24H PO SCH (09:00)
--- NOTE | 2016-12-06 09:19 | PDOC ---
Provider Note Provider Note Hem-Onc consult 1. Normochromic normocytic anemia/pancytopenia due to cirrhosis/ splenomegaly. Bone marrow bx done 08/28/2015, no evidence of malignancy or MDS. 2. Leukopenia. No evidence of infection. 3. Thrombocytopenia 4. Cirrhosis 5. Splenomegaly 20 cm per u/s 08/16/2015. See dictation # [id number] . KEITH SO MD Dec 06, 2016 09:19
--- NOTE | 2016-12-06 10:23 | RAD ---
PROCEDURE MRI brain without contrast. HISTORY Right hand weakness and tremors for 1 day TECHNIQUE Multiplanar, multi sequential non contrast MR imaging was performed of the brain. COMPARISON None FINDINGS There is motion degradation. There is no evidence of recent infarct or cytotoxic edema. There is no midline shift or intra-axial mass effect. There is mild supratentorial atrophy somewhat greater of the parietal lobes, ventricular size within normal limits. There is minimal T2 and FLAIR hyperintense signal abnormality of the supratentorial periventricular white matter, also a couple of small foci of the left emery radiata. There has been lens surgery bilaterally. There is nonspecific increased CSF signal of the optic nerve sheaths bilaterally. There is negligible patchy ethmoid air cell and frontal sinus mucosal thickening. There is patchy mild fluid of the mastoid air cells bilaterally. There is preservation of the major arterial intracranial flow voids at the skull base. Cerebellar tonsils are normal in location. There is no significant abnormality pineal gland or pituitary gland. Nonspecific mild heterogeneous low signal marrow of non expanded clivus. IMPRESSION 1. There is no evidence of a recent infarct or intracranial mass effect. 2. Minimal T2 and FLAIR hyperintense signal abnormality of the supratentorial white matter is most commonly due to chronic microvascular ischemic disease in a patient this age. 3. There is mild supratentorial atrophy relatively greater of the parietal lobes. Electronically signed by: Alonzo Beavers MD (Dec 06, 2016 10:22:01)
[2016-12-06 11:00] VITALS: BP 185/70
--- NOTE | 2016-12-06 11:47 | PDOC2 ---
CONSULT Date of Consult Date of Consult DATE: 12/06/16 TIME: 11:43 Reason for Consult Reason for Consult: ESRD Referring Physician Referring Physician: SUNNY Identification/Chief Complaint Chief Complaint RIGHT ARM AND RIGHT LE WEAKNESS Source Source: Chart review History of Present Illness Reason for Visit: THIS IS A 71 YR OLD WITH COMPLAINTS OF RIGHT ARM AND RIGHT LE WEAKNESS. 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 SHE HAS ESRD AND IS ON OP HD ON TTS. LABS ARE C/W ESRD Past Medical History Cardiovascular: CHF, HTN, Hyperlipidemia, Other Pulmonary: No pertinent hx, Other CENTRAL NERVOUS SYSTEM: CVA, Periperal neuropathy GI: GERD, Other Heme/Onc: Other Hepatobiliary: Cirrhosis Psych: Anxiety, Depression Musculoskeletal: Osteoarthritis, Other Rheumatologic: No pertinent hx Infectious disease: No pertinent hx Renal/: Chronic renal failure Endocrine: Diabetes, Hyperparathyroidism Past Surgical History Past Surgical History: Hysterectomy, Other Family History Family History: No Significant, Hypertension, Other Social History ALCOHOL: none Drugs: None Lives: with Family Current Problem List Problem List Problems Medical Problems: (1) End stage renal disease Status: Acute (2) Neurological complaint Status: Acute (3) Pulmonary edema Status: Acute Current Medications Current Medications Current Medications Acetaminophen (Tylenol) 650 mg PRN Q4HRS PRN PO FEVER; Start 12/05/16 at 15:45 ; Stop 12/06/16 at 15:44 Insulin Aspart (Novolog) 0-5 UNITS TIDWMEALS SQ Last administered on 12/05/16 18:27; Start 12/05/16 at 17:00 Dextrose (Dextrose 50%-Water Syringe) 12.5 gm PRN Q15MIN PRN IV SEE COMMENTS; Start 12/05/16 at 15:45 Lorazepam (Ativan) 0.5 mg PRN TID PRN PO TREMORS; Start 12/05/16 at 16:45 Insulin Aspart (Novolog) 15 units 1X ONCE SQ Last administered on 12/05/16 18 :27; Start 12/05/16 at 17:45; Stop 12/05/16 at 17:47; Status DC Insulin Aspart (Novolog) 20 units 1X ONCE SQ Last administered on 12/05/16 22 :02; Start 12/05/16 at 21:30; Stop 12/05/16 at 21:31; Status DC Alprazolam (Xanax) 0.5 mg PRN Q8HRS PRN PO ANXIETY / AGITATION; Start 12/05/16 at 21:30 Clonidine HCl (Catapres) 0.2 mg PRN DAILY PRN PO ELEVATED BP, SEE COMMENTS; Start 12/05/16 at 21:30 Diclofenac Sodium (Voltaren) 1 ronel TID TP ; Start 12/06/16 at 09:00 Famotidine (Pepcid) 20 mg DAILY PO Last administered on 12/06/16 08:56; Start 12/06/16 at 09:00 Gabapentin (Neurontin) 100 mg TID PO Last administered on 12/06/16 08:56; Start 12/06/16 at 09:00 Acetaminophen/ Hydrocodone Bitart (Lortab 5/325) 1 tab PRN Q6HRS PRN PO SEVERE PAIN; Start 12/05/16 at 21:30 Lactulose 30 gm DAILY PO ; Start 12/06/16 at 09:00 Levothyroxine Sodium (Synthroid) 100 mcg DAILY07 PO Last administered on 06:04; Start 12/06/16 at 07:00 Rifaximin (Xifaxan) 550 mg BID PO Last administered on 12/06/16 08:56; Start 12/05/16 at 22:00 Zolpidem Tartrate (Ambien) 5 mg PRN QHS PRN PO INSOMNIA Last administered on 21:58; Start 12/05/16 at 21:30 Insulin Detemir (Levemir) 50 units QHS SQ Last administered on 12/05/16 22:02 ; Start 12/05/16 at 22:00 Isosorbide Mononitrate (Imdur) 30 mg DAILY PO Last administered on 12/06/16 08 :56; Start 12/06/16 at 09:00 Active Scripts Active Lactulose 20 Gm/30 Ml Solution 30 Gm PO DAILY 30 Days Hydrocodone-Apap 5-325 (Hydrocodone Bit/Acetaminophen) 1 Each Tablet 1 Tab PO PRN Q6HRS PRN Reported Metoprolol Succinate ( Xl ) (Metoprolol Succinate) 25 Mg Tab.er.24h 25 Mg PO DAILY Lantus Solostar (Insulin Glargine,Hum.rec.anlog) 100 Unit/1 Ml Insuln.pen 50 Unit SQ QHS Humalog Kwikpen (Insulin Lispro) 200 Unit/1 Ml Insuln.pen 20-30 Unit SQ TID Ondansetron Hcl 4 Mg Tablet 4 Mg PO Q6HRS PRN Zolpidem Tartrate 5 Mg Tablet 5 Mg PO PRN QHS PRN Famotidine 20 Mg Tablet 20 Mg PO DAILY Voltaren (Diclofenac Sodium) 100 Gm Gel..gram. 1 Gm TP TID Alprazolam 0.5 Mg Tablet 0.5 Mg PO Q8HRS PRN Gabapentin 100 Mg Capsule 100 Mg PO TID Levothyroxine Sodium 100 Mcg Tablet 1 Tab PO DAILY Clonidine Hcl 0.2 Mg Tablet 0.2 Mg PO DAILY PRN Xifaxan (Rifaximin) 550 Mg Tablet 1 Tab PO BID Metoprolol Tartrate 25 Mg Tablet 1 Tab PO DAILY Isosorbide Dinitrate 30 Mg Tablet 1 Tab PO DAILY Allergies Allergies: Coded Allergies: adhesive (Verified Allergy, Intermediate, Rash, 04/09/16) TAPE ROS General: YES: Appetite, Fatigue PSYCHOLOGICAL ROS: YES: Anxiety Eyes: Yes Decreased vision HEENT: YES: Heacaches Respiratory: YES: Cough Gastrointestinal: Yes Constipation Genitourinary: YES Other (ANURIA) Musculoskeletal: Yes Muscular Weakness Neurological: Yes Weakness Skin: Yes Dry Skin Physical Exam General: Alert, Oriented X3, Cooperative, No acute distress HEENT: Atraumatic, PERRLA, EOMI, Mucous membr. moist/pink Lungs: Clear to auscultation, Normal air movement Heart: Regular rate, Normal S2 Abdomen: Normal bowel sounds, Soft, No tenderness Extremities: No clubbing Skin: No significant lesion Neuro: Normal speech Psych/Mental Status: Mental status NL, Mood NL MUSCULOSKELETAL: No deformity, No swelling Vitals VITALS Vital Signs Date Time Temp Pulse Resp B/P Pulse Ox O2 Delivery O2 Flow Rate FiO2 12/06/16 11:00 97.7 74 20 185/70 94 Room Air 97.7 12/06/16 03:25 2.0 Labs Labs Laboratory Tests Test 12/05/16 13:30 12/05/16 14:15 12/05/16 17:22 12/05/16 19:30 Urine Collection Type Unknown Urine Color Yellow Urine Clarity Turbid Urine pH 5.0 Urine Specific [place] 1.015 Urine Protein 100mg/dL (NEG-TRACE) Urine Glucose (UA) >=1000mg/dL (NEG) Urine Ketones (Stick) Negativemg/dL (NEG) Urine Blood Moderate (NEG) Urine Nitrite Negative (NEG) Urine Bilirubin Negative (NEG) Urine Urobilinogen Dipstick 0.2mg/dL (0.2 mg/dL) Urine Leukocyte Esterase Large (NEG) Urine RBC 0/HPF (0-2) Urine WBC Tntc/HPF (0-4) Urine Squamous Epithelial Cells Few/LPF Urine Bacteria Few/HPF (0-FEW) Urine Opiates Screen Neg (NEG) Urine Methadone Screen Neg (NEG) Urine Barbiturates Neg (NEG) Urine Phencyclidine Screen Neg (NEG) Urine Amphetamine/Methamphetamine Neg (NEG) Urine Benzodiazepines Screen Neg (NEG) Urine Cocaine Screen Neg (NEG) Urine Cannabinoids Screen Neg (NEG) Urine Ethyl Alcohol Neg (NEG) White Blood Count 3.3x10^3/uL (4.0-11.0) Red Blood Count 3.49x10^6/uL (3.50-5.40) Hemoglobin 10.8g/dL (12.0-15.5) Hematocrit 30.7% (36.0-47.0) Mean Corpuscular Volume 88fL (79-100) Mean Corpuscular Hemoglobin 31pg (25-35) Mean Corpuscular Hemoglobin Concent 35g/dL (31-37) Red Cell Distribution Width 15.5% (11.5-14.5) Platelet Count 45x10^3/uL (140-400) Neutrophils (%) (Auto) 76% (31-73) Lymphocytes (%) (Auto) 14% (24-48) Monocytes (%) (Auto) 7% (0-9) Eosinophils (%) (Auto) 2% (0-3) Basophils (%) (Auto) 1% (0-3) Neutrophils # (Auto) 2.5x10^3uL (1.8-7.7) Lymphocytes # (Auto) 0.5x10^3/uL (1.0-4.8) Monocytes # (Auto) 0.2x10^3/uL (0.0-1.1) Eosinophils # (Auto) 0.1x10^3/uL (0.0-0.7) Basophils # (Auto) 0.0x10^3/uL (0.0-0.2) Prothrombin Time 15.8SEC (11.7-14.0) Prothromb Time International Ratio 1.3 (0.8-1.1) Activated Partial Thromboplast Time 39SEC (24-38) Sodium Level 139mmol/L (136-145) Potassium Level 4.5mmol/L (3.5-5.1) Chloride Level 103mmol/L (98-107) Carbon Dioxide Level 26mmol/L (21-32) Anion Gap 10 (6-14) Blood Urea Nitrogen 45mg/dL (7-20) Creatinine 3.9mg/dL (0.6-1.0) Estimated GFR (Cockcroft-Gault) 11.4 BUN/Creatinine Ratio 12 (6-20) Glucose Level 461mg/dL (70-99) Calcium Level 8.0mg/dL (8.5-10.1) Phosphorus Level 4.9mg/dL (2.6-4.7) Magnesium Level 2.0mg/dL (1.8-2.4) Total Bilirubin 0.8mg/dL (0.2-1.0) Aspartate Amino Transf (AST/SGOT) 18U/L (15-37) Alanine Aminotransferase (ALT/SGPT) 27U/L (14-59) Alkaline Phosphatase 219U/L (46-116) Troponin I Quantitative 0.020ng/mL (0.000-0.055) AX-Axi-Y-Type Natriuretic Peptide 3921pg/mL (0-124) Total Protein 6.7g/dL (6.4-8.2) Albumin 3.1g/dL (3.4-5.0) Albumin/Globulin Ratio 0.9 (1.0-1.7) Glucose (Fingerstick) 360mg/dL (70-99) Erythrocyte Sedimentation Rate 20 (0-25) Ionized Calcium 1.07mmol/L (1.13-1.32) Test 12/05/16 21:08 12/06/16 03:30 12/06/16 08:09 Glucose (Fingerstick) 339mg/dL (70-99) 129mg/dL (70-99) White Blood Count 4.1x10^3/uL (4.0-11.0) Red Blood Count 3.19x10^6/uL (3.50-5.40) Hemoglobin 9.5g/dL (12.0-15.5) Hematocrit 28.2% (36.0-47.0) Mean Corpuscular Volume 88fL (79-100) Mean Corpuscular Hemoglobin 30pg (25-35) Mean Corpuscular Hemoglobin Concent 34g/dL (31-37) Red Cell Distribution Width 15.2% (11.5-14.5) Platelet Count 51x10^3/uL (140-400) Neutrophils (%) (Auto) 70% (31-73) Lymphocytes (%) (Auto) 16% (24-48) Monocytes (%) (Auto) 10% (0-9) Eosinophils (%) (Auto) 3% (0-3) Basophils (%) (Auto) 1% (0-3) Neutrophils # (Auto) 2.9x10^3uL (1.8-7.7) Lymphocytes # (Auto) 0.7x10^3/uL (1.0-4.8) Monocytes # (Auto) 0.4x10^3/uL (0.0-1.1) Eosinophils # (Auto) 0.1x10^3/uL (0.0-0.7) Basophils # (Auto) 0.0x10^3/uL (0.0-0.2) Sodium Level 142mmol/L (136-145) Potassium Level 3.7mmol/L (3.5-5.1) Chloride Level 106mmol/L (98-107) Carbon Dioxide Level 26mmol/L (21-32) Anion Gap 10 (6-14) Blood Urea Nitrogen 48mg/dL (7-20) Creatinine 3.8mg/dL (0.6-1.0) Estimated GFR (Cockcroft-Gault) 11.7 Glucose Level 92mg/dL (70-99) Calcium Level 8.1mg/dL (8.5-10.1) Triglycerides Level 61mg/dL (0-150) Cholesterol Level 99mg/dL (0-200) LDL Cholesterol, Calculated 37mg/dL (0-100) VLDL Cholesterol, Calculated 12mg/dL (0-40) HDL Cholesterol 50mg/dL (40-60) Cholesterol/HDL Ratio 2.0 Laboratory Tests Test 12/05/16 13:30 12/05/16 14:15 12/05/16 17:22 12/05/16 19:30 Urine Collection Type Unknown Urine Color Yellow Urine Clarity Turbid Urine pH 5.0 Urine Specific [place] 1.015 Urine Protein 100mg/dL (NEG-TRACE) Urine Glucose (UA) >=1000mg/dL (NEG) Urine Ketones (Stick) Negativemg/dL (NEG) Urine Blood Moderate (NEG) Urine Nitrite Negative (NEG) Urine Bilirubin Negative (NEG) Urine Urobilinogen Dipstick 0.2mg/dL (0.2 mg/dL) Urine Leukocyte Esterase Large (NEG) Urine RBC 0/HPF (0-2) Urine WBC Tntc/HPF (0-4) Urine Squamous Epithelial Cells Few/LPF Urine Bacteria Few/HPF (0-FEW) Urine Opiates Screen Neg (NEG) Urine Methadone Screen Neg (NEG) Urine Barbiturates Neg (NEG) Urine Phencyclidine Screen Neg (NEG) Urine Amphetamine/Methamphetamine Neg (NEG) Urine Benzodiazepines Screen Neg (NEG) Urine Cocaine Screen Neg (NEG) Urine Cannabinoids Screen Neg (NEG) Urine Ethyl Alcohol Neg (NEG) White Blood Count 3.3x10^3/uL (4.0-11.0) Red Blood Count 3.49x10^6/uL (3.50-5.40) Hemoglobin 10.8g/dL (12.0-15.5) Hematocrit 30.7% (36.0-47.0) Mean Corpuscular Volume 88fL (79-100) Mean Corpuscular Hemoglobin 31pg (25-35) Mean Corpuscular Hemoglobin Concent 35g/dL (31-37) Red Cell Distribution Width 15.5% (11.5-14.5) Platelet Count 45x10^3/uL (140-400) Neutrophils (%) (Auto) 76% (31-73) Lymphocytes (%) (Auto) 14% (24-48) Monocytes (%) (Auto) 7% (0-9) Eosinophils (%) (Auto) 2% (0-3) Basophils (%) (Auto) 1% (0-3) Neutrophils # (Auto) 2.5x10^3uL (1.8-7.7) Lymphocytes # (Auto) 0.5x10^3/uL (1.0-4.8) Monocytes # (Auto) 0.2x10^3/uL (0.0-1.1) Eosinophils # (Auto) 0.1x10^3/uL (0.0-0.7) Basophils # (Auto) 0.0x10^3/uL (0.0-0.2) Prothrombin Time 15.8SEC (11.7-14.0) Prothromb Time International Ratio 1.3 (0.8-1.1) Activated Partial Thromboplast Time 39SEC (24-38) Sodium Level 139mmol/L (136-145) Potassium Level 4.5mmol/L (3.5-5.1) Chloride Level 103mmol/L (98-107) Carbon Dioxide Level 26mmol/L (21-32) Anion Gap 10 (6-14) Blood Urea Nitrogen 45mg/dL (7-20) Creatinine 3.9mg/dL (0.6-1.0) Estimated GFR (Cockcroft-Gault) 11.4 BUN/Creatinine Ratio 12 (6-20) Glucose Level 461mg/dL (70-99) Calcium Level 8.0mg/dL (8.5-10.1) Phosphorus Level 4.9mg/dL (2.6-4.7) Magnesium Level 2.0mg/dL (1.8-2.4) Total Bilirubin 0.8mg/dL (0.2-1.0) Aspartate Amino Transf (AST/SGOT) 18U/L (15-37) Alanine Aminotransferase (ALT/SGPT) 27U/L (14-59) Alkaline Phosphatase 219U/L (46-116) Troponin I Quantitative 0.020ng/mL (0.000-0.055) UT-Mln-E-Type Natriuretic Peptide 3921pg/mL (0-124) Total Protein 6.7g/dL (6.4-8.2) Albumin 3.1g/dL (3.4-5.0) Albumin/Globulin Ratio 0.9 (1.0-1.7) Glucose (Fingerstick) 360mg/dL (70-99) Erythrocyte Sedimentation Rate 20 (0-25) Ionized Calcium 1.07mmol/L (1.13-1.32) Test 12/05/16 21:08 4/14/17 03:30 12/06/16 08:09 Glucose (Fingerstick) 339mg/dL (70-99) 129mg/dL (70-99) White Blood Count 4.1x10^3/uL (4.0-11.0) Red Blood Count 3.19x10^6/uL (3.50-5.40) Hemoglobin 9.5g/dL (12.0-15.5) Hematocrit 28.2% (36.0-47.0) Mean Corpuscular Volume 88fL (79-100) Mean Corpuscular Hemoglobin 30pg (25-35) Mean Corpuscular Hemoglobin Concent 34g/dL (31-37) Red Cell Distribution Width 15.2% (11.5-14.5) Platelet Count 51x10^3/uL (140-400) Neutrophils (%) (Auto) 70% (31-73) Lymphocytes (%) (Auto) 16% (24-48) Monocytes (%) (Auto) 10% (0-9) Eosinophils (%) (Auto) 3% (0-3) Basophils (%) (Auto) 1% (0-3) Neutrophils # (Auto) 2.9x10^3uL (1.8-7.7) Lymphocytes # (Auto) 0.7x10^3/uL (1.0-4.8) Monocytes # (Auto) 0.4x10^3/uL (0.0-1.1) Eosinophils # (Auto) 0.1x10^3/uL (0.0-0.7) Basophils # (Auto) 0.0x10^3/uL (0.0-0.2) Sodium Level 142mmol/L (136-145) Potassium Level 3.7mmol/L (3.5-5.1) Chloride Level 106mmol/L (98-107) Carbon Dioxide Level 26mmol/L (21-32) Anion Gap 10 (6-14) Blood Urea Nitrogen 48mg/dL (7-20) Creatinine 3.8mg/dL (0.6-1.0) Estimated GFR (Cockcroft-Gault) 11.7 Glucose Level 92mg/dL (70-99) Calcium Level 8.1mg/dL (8.5-10.1) Triglycerides Level 61mg/dL (0-150) Cholesterol Level 99mg/dL (0-200) LDL Cholesterol, Calculated 37mg/dL (0-100) VLDL Cholesterol, Calculated 12mg/dL (0-40) HDL Cholesterol 50mg/dL (40-60) Cholesterol/HDL Ratio 2.0 Assessment/Plan Assessment/Plan IMP ESRD POSSIBLE TIA ANEMIA DM II HTN PLAN START ARANESP HD TOMORROW NEUROLOGY EVAL AND TX WILL FOLLOW OPAL RUBI MD Dec 06, 2016 11:47
--- NOTE | 2016-12-06 14:11 | PDOC ---
PROGRESS NOTES Chief Complaint Chief Complaint cc: arm tightness A/P 1. RUE neuro symptoms, unclear etiology, : MRI negative, EEG pending, 2. End-stage renal disease, on hemodialysis: MTS 3. Nonalcoholic cirrhosis. 4. Hypertension. not controlled. :PRN hydralazine added, labs reviewed. 5. Diabetes mellitus with hyperglycemia. 6. Peripheral neuropathy. 7. Thrombocytopenia. : chronic stable. Vitals Vitals Vital Signs Date Time Temp Pulse Resp B/P Pulse Ox O2 Delivery O2 Flow Rate FiO2 12/06/16 12:58 18 Room Air 12/06/16 12:03 75 179/64 12/06/16 11:00 97.7 94 97.7 12/06/16 03:25 2.0 Physical Exam General: Alert, Oriented X3, Cooperative, No acute distress Heart: Regular rate, Normal S2 Lungs: Clear Abdomen: Normal bowel sounds, Soft, No tenderness Extremities: No clubbing Skin: No significant lesion Labs LABS Laboratory Tests Test 12/05/16 14:15 12/05/16 17:22 12/05/16 19:30 12/05/16 21:08 White Blood Count 3.3x10^3/uL (4.0-11.0) Red Blood Count 3.49x10^6/uL (3.50-5.40) Hemoglobin 10.8g/dL (12.0-15.5) Hematocrit 30.7% (36.0-47.0) Mean Corpuscular Volume 88fL (79-100) Mean Corpuscular Hemoglobin 31pg (25-35) Mean Corpuscular Hemoglobin Concent 35g/dL (31-37) Red Cell Distribution Width 15.5% (11.5-14.5) Platelet Count 45x10^3/uL (140-400) Neutrophils (%) (Auto) 76% (31-73) Lymphocytes (%) (Auto) 14% (24-48) Monocytes (%) (Auto) 7% (0-9) Eosinophils (%) (Auto) 2% (0-3) Basophils (%) (Auto) 1% (0-3) Neutrophils # (Auto) 2.5x10^3uL (1.8-7.7) Lymphocytes # (Auto) 0.5x10^3/uL (1.0-4.8) Monocytes # (Auto) 0.2x10^3/uL (0.0-1.1) Eosinophils # (Auto) 0.1x10^3/uL (0.0-0.7) Basophils # (Auto) 0.0x10^3/uL (0.0-0.2) Prothrombin Time 15.8SEC (11.7-14.0) Prothromb Time International Ratio 1.3 (0.8-1.1) Activated Partial Thromboplast Time 39SEC (24-38) Sodium Level 139mmol/L (136-145) Potassium Level 4.5mmol/L (3.5-5.1) Chloride Level 103mmol/L (98-107) Carbon Dioxide Level 26mmol/L (21-32) Anion Gap 10 (6-14) Blood Urea Nitrogen 45mg/dL (7-20) Creatinine 3.9mg/dL (0.6-1.0) Estimated GFR (Cockcroft-Gault) 11.4 BUN/Creatinine Ratio 12 (6-20) Glucose Level 461mg/dL (70-99) Calcium Level 8.0mg/dL (8.5-10.1) Phosphorus Level 4.9mg/dL (2.6-4.7) Magnesium Level 2.0mg/dL (1.8-2.4) Total Bilirubin 0.8mg/dL (0.2-1.0) Aspartate Amino Transf (AST/SGOT) 18U/L (15-37) Alanine Aminotransferase (ALT/SGPT) 27U/L (14-59) Alkaline Phosphatase 219U/L (46-116) Troponin I Quantitative 0.020ng/mL (0.000-0.055) RY-Gbd-V-Type Natriuretic Peptide 3921pg/mL (0-124) Total Protein 6.7g/dL (6.4-8.2) Albumin 3.1g/dL (3.4-5.0) Albumin/Globulin Ratio 0.9 (1.0-1.7) Glucose (Fingerstick) 360mg/dL (70-99) 339mg/dL (70-99) Erythrocyte Sedimentation Rate 20 (0-25) Ionized Calcium 1.07mmol/L (1.13-1.32) Rheumatoid Factor 36.0IU/mL (0.0-13.9) Test 12/06/16 03:30 12/06/16 08:09 12/06/16 12:00 White Blood Count 4.1x10^3/uL (4.0-11.0) Red Blood Count 3.19x10^6/uL (3.50-5.40) Hemoglobin 9.5g/dL (12.0-15.5) Hematocrit 28.2% (36.0-47.0) Mean Corpuscular Volume 88fL (79-100) Mean Corpuscular Hemoglobin 30pg (25-35) Mean Corpuscular Hemoglobin Concent 34g/dL (31-37) Red Cell Distribution Width 15.2% (11.5-14.5) Platelet Count 51x10^3/uL (140-400) Neutrophils (%) (Auto) 70% (31-73) Lymphocytes (%) (Auto) 16% (24-48) Monocytes (%) (Auto) 10% (0-9) Eosinophils (%) (Auto) 3% (0-3) Basophils (%) (Auto) 1% (0-3) Neutrophils # (Auto) 2.9x10^3uL (1.8-7.7) Lymphocytes # (Auto) 0.7x10^3/uL (1.0-4.8) Monocytes # (Auto) 0.4x10^3/uL (0.0-1.1) Eosinophils # (Auto) 0.1x10^3/uL (0.0-0.7) Basophils # (Auto) 0.0x10^3/uL (0.0-0.2) Sodium Level 142mmol/L (136-145) Potassium Level 3.7mmol/L (3.5-5.1) Chloride Level 106mmol/L (98-107) Carbon Dioxide Level 26mmol/L (21-32) Anion Gap 10 (6-14) Blood Urea Nitrogen 48mg/dL (7-20) Creatinine 3.8mg/dL (0.6-1.0) Estimated GFR (Cockcroft-Gault) 11.7 Glucose Level 92mg/dL (70-99) Calcium Level 8.1mg/dL (8.5-10.1) Triglycerides Level 61mg/dL (0-150) Cholesterol Level 99mg/dL (0-200) LDL Cholesterol, Calculated 37mg/dL (0-100) VLDL Cholesterol, Calculated 12mg/dL (0-40) HDL Cholesterol 50mg/dL (40-60) Cholesterol/HDL Ratio 2.0 Glucose (Fingerstick) 129mg/dL (70-99) 188mg/dL (70-99) Assessment and Plan Assessmemt and Plan Problems Medical Problems: (1) End stage renal disease Status: Acute (2) Neurological complaint Status: Acute (3) Pulmonary edema Status: Acute Problems: Comment Review of Relevant I have reviewed the following items karyn (where applicable) has been applied. Labs Laboratory Tests Test 12/05/16 13:30 12/05/16 14:15 12/05/16 17:22 12/05/16 19:30 Urine Collection Type Unknown Urine Color Yellow Urine Clarity Turbid Urine pH 5.0 Urine Specific [place] 1.015 Urine Protein 100mg/dL (NEG-TRACE) Urine Glucose (UA) >=1000mg/dL (NEG) Urine Ketones (Stick) Negativemg/dL (NEG) Urine Blood Moderate (NEG) Urine Nitrite Negative (NEG) Urine Bilirubin Negative (NEG) Urine Urobilinogen Dipstick 0.2mg/dL (0.2 mg/dL) Urine Leukocyte Esterase Large (NEG) Urine RBC 0/HPF (0-2) Urine WBC Tntc/HPF (0-4) Urine Squamous Epithelial Cells Few/LPF Urine Bacteria Few/HPF (0-FEW) Urine Opiates Screen Neg (NEG) Urine Methadone Screen Neg (NEG) Urine Barbiturates Neg (NEG) Urine Phencyclidine Screen Neg (NEG) Urine Amphetamine/Methamphetamine Neg (NEG) Urine Benzodiazepines Screen Neg (NEG) Urine Cocaine Screen Neg (NEG) Urine Cannabinoids Screen Neg (NEG) Urine Ethyl Alcohol Neg (NEG) White Blood Count 3.3x10^3/uL (4.0-11.0) Red Blood Count 3.49x10^6/uL (3.50-5.40) Hemoglobin 10.8g/dL (12.0-15.5) Hematocrit 30.7% (36.0-47.0) Mean Corpuscular Volume 88fL (79-100) Mean Corpuscular Hemoglobin 31pg (25-35) Mean Corpuscular Hemoglobin Concent 35g/dL (31-37) Red Cell Distribution Width 15.5% (11.5-14.5) Platelet Count 45x10^3/uL (140-400) Neutrophils (%) (Auto) 76% (31-73) Lymphocytes (%) (Auto) 14% (24-48) Monocytes (%) (Auto) 7% (0-9) Eosinophils (%) (Auto) 2% (0-3) Basophils (%) (Auto) 1% (0-3) Neutrophils # (Auto) 2.5x10^3uL (1.8-7.7) Lymphocytes # (Auto) 0.5x10^3/uL (1.0-4.8) Monocytes # (Auto) 0.2x10^3/uL (0.0-1.1) Eosinophils # (Auto) 0.1x10^3/uL (0.0-0.7) Basophils # (Auto) 0.0x10^3/uL (0.0-0.2) Prothrombin Time 15.8SEC (11.7-14.0) Prothromb Time International Ratio 1.3 (0.8-1.1) Activated Partial Thromboplast Time 39SEC (24-38) Sodium Level 139mmol/L (136-145) Potassium Level 4.5mmol/L (3.5-5.1) Chloride Level 103mmol/L (98-107) Carbon Dioxide Level 26mmol/L (21-32) Anion Gap 10 (6-14) Blood Urea Nitrogen 45mg/dL (7-20) Creatinine 3.9mg/dL (0.6-1.0) Estimated GFR (Cockcroft-Gault) 11.4 BUN/Creatinine Ratio 12 (6-20) Glucose Level 461mg/dL (70-99) Calcium Level 8.0mg/dL (8.5-10.1) Phosphorus Level 4.9mg/dL (2.6-4.7) Magnesium Level 2.0mg/dL (1.8-2.4) Total Bilirubin 0.8mg/dL (0.2-1.0) Aspartate Amino Transf (AST/SGOT) 18U/L (15-37) Alanine Aminotransferase (ALT/SGPT) 27U/L (14-59) Alkaline Phosphatase 219U/L (46-116) Troponin I Quantitative 0.020ng/mL (0.000-0.055) FH-Rhg-D-Type Natriuretic Peptide 3921pg/mL (0-124) Total Protein 6.7g/dL (6.4-8.2) Albumin 3.1g/dL (3.4-5.0) Albumin/Globulin Ratio 0.9 (1.0-1.7) Glucose (Fingerstick) 360mg/dL (70-99) Erythrocyte Sedimentation Rate 20 (0-25) Ionized Calcium 1.07mmol/L (1.13-1.32) Rheumatoid Factor 36.0IU/mL (0.0-13.9) Test 12/05/16 21:08 12/06/16 03:30 12/06/16 08:09 12/06/16 12:00 Glucose (Fingerstick) 339mg/dL (70-99) 129mg/dL (70-99) 188mg/dL (70-99) White Blood Count 4.1x10^3/uL (4.0-11.0) Red Blood Count 3.19x10^6/uL (3.50-5.40) Hemoglobin 9.5g/dL (12.0-15.5) Hematocrit 28.2% (36.0-47.0) Mean Corpuscular Volume 88fL (79-100) Mean Corpuscular Hemoglobin 30pg (25-35) Mean Corpuscular Hemoglobin Concent 34g/dL (31-37) Red Cell Distribution Width 15.2% (11.5-14.5) Platelet Count 51x10^3/uL (140-400) Neutrophils (%) (Auto) 70% (31-73) Lymphocytes (%) (Auto) 16% (24-48) Monocytes (%) (Auto) 10% (0-9) Eosinophils (%) (Auto) 3% (0-3) Basophils (%) (Auto) 1% (0-3) Neutrophils # (Auto) 2.9x10^3uL (1.8-7.7) Lymphocytes # (Auto) 0.7x10^3/uL (1.0-4.8) Monocytes # (Auto) 0.4x10^3/uL (0.0-1.1) Eosinophils # (Auto) 0.1x10^3/uL (0.0-0.7) Basophils # (Auto) 0.0x10^3/uL (0.0-0.2) Sodium Level 142mmol/L (136-145) Potassium Level 3.7mmol/L (3.5-5.1) Chloride Level 106mmol/L (98-107) Carbon Dioxide Level 26mmol/L (21-32) Anion Gap 10 (6-14) Blood Urea Nitrogen 48mg/dL (7-20) Creatinine 3.8mg/dL (0.6-1.0) Estimated GFR (Cockcroft-Gault) 11.7 Glucose Level 92mg/dL (70-99) Calcium Level 8.1mg/dL (8.5-10.1) Triglycerides Level 61mg/dL (0-150) Cholesterol Level 99mg/dL (0-200) LDL Cholesterol, Calculated 37mg/dL (0-100) VLDL Cholesterol, Calculated 12mg/dL (0-40) HDL Cholesterol 50mg/dL (40-60) Cholesterol/HDL Ratio 2.0 Laboratory Tests Test 12/05/16 14:15 12/05/16 17:22 12/05/16 19:30 12/05/16 21:08 White Blood Count 3.3x10^3/uL (4.0-11.0) Red Blood Count 3.49x10^6/uL (3.50-5.40) Hemoglobin 10.8g/dL (12.0-15.5) Hematocrit 30.7% (36.0-47.0) Mean Corpuscular Volume 88fL (79-100) Mean Corpuscular Hemoglobin 31pg (25-35) Mean Corpuscular Hemoglobin Concent 35g/dL (31-37) Red Cell Distribution Width 15.5% (11.5-14.5) Platelet Count 45x10^3/uL (140-400) Neutrophils (%) (Auto) 76% (31-73) Lymphocytes (%) (Auto) 14% (24-48) Monocytes (%) (Auto) 7% (0-9) Eosinophils (%) (Auto) 2% (0-3) Basophils (%) (Auto) 1% (0-3) Neutrophils # (Auto) 2.5x10^3uL (1.8-7.7) Lymphocytes # (Auto) 0.5x10^3/uL (1.0-4.8) Monocytes # (Auto) 0.2x10^3/uL (0.0-1.1) Eosinophils # (Auto) 0.1x10^3/uL (0.0-0.7) Basophils # (Auto) 0.0x10^3/uL (0.0-0.2) Prothrombin Time 15.8SEC (11.7-14.0) Prothromb Time International Ratio 1.3 (0.8-1.1) Activated Partial Thromboplast Time 39SEC (24-38) Sodium Level 139mmol/L (136-145) Potassium Level 4.5mmol/L (3.5-5.1) Chloride Level 103mmol/L (98-107) Carbon Dioxide Level 26mmol/L (21-32) Anion Gap 10 (6-14) Blood Urea Nitrogen 45mg/dL (7-20) Creatinine 3.9mg/dL (0.6-1.0) Estimated GFR (Cockcroft-Gault) 11.4 BUN/Creatinine Ratio 12 (6-20) Glucose Level 461mg/dL (70-99) Calcium Level 8.0mg/dL (8.5-10.1) Phosphorus Level 4.9mg/dL (2.6-4.7) Magnesium Level 2.0mg/dL (1.8-2.4) Total Bilirubin 0.8mg/dL (0.2-1.0) Aspartate Amino Transf (AST/SGOT) 18U/L (15-37) Alanine Aminotransferase (ALT/SGPT) 27U/L (14-59) Alkaline Phosphatase 219U/L (46-116) Troponin I Quantitative 0.020ng/mL (0.000-0.055) YJ-Kfk-N-Type Natriuretic Peptide 3921pg/mL (0-124) Total Protein 6.7g/dL (6.4-8.2) Albumin 3.1g/dL (3.4-5.0) Albumin/Globulin Ratio 0.9 (1.0-1.7) Glucose (Fingerstick) 360mg/dL (70-99) 339mg/dL (70-99) Erythrocyte Sedimentation Rate 20 (0-25) Ionized Calcium 1.07mmol/L (1.13-1.32) Rheumatoid Factor 36.0IU/mL (0.0-13.9) Test 12/06/16 03:30 12/06/16 08:09 12/06/16 12:00 White Blood Count 4.1x10^3/uL (4.0-11.0) Red Blood Count 3.19x10^6/uL (3.50-5.40) Hemoglobin 9.5g/dL (12.0-15.5) Hematocrit 28.2% (36.0-47.0) Mean Corpuscular Volume 88fL (79-100) Mean Corpuscular Hemoglobin 30pg (25-35) Mean Corpuscular Hemoglobin Concent 34g/dL (31-37) Red Cell Distribution Width 15.2% (11.5-14.5) Platelet Count 51x10^3/uL (140-400) Neutrophils (%) (Auto) 70% (31-73) Lymphocytes (%) (Auto) 16% (24-48) Monocytes (%) (Auto) 10% (0-9) Eosinophils (%) (Auto) 3% (0-3) Basophils (%) (Auto) 1% (0-3) Neutrophils # (Auto) 2.9x10^3uL (1.8-7.7) Lymphocytes # (Auto) 0.7x10^3/uL (1.0-4.8) Monocytes # (Auto) 0.4x10^3/uL (0.0-1.1) Eosinophils # (Auto) 0.1x10^3/uL (0.0-0.7) Basophils # (Auto) 0.0x10^3/uL (0.0-0.2) Sodium Level 142mmol/L (136-145) Potassium Level 3.7mmol/L (3.5-5.1) Chloride Level 106mmol/L (98-107) Carbon Dioxide Level 26mmol/L (21-32) Anion Gap 10 (6-14) Blood Urea Nitrogen 48mg/dL (7-20) Creatinine 3.8mg/dL (0.6-1.0) Estimated GFR (Cockcroft-Gault) 11.7 Glucose Level 92mg/dL (70-99) Calcium Level 8.1mg/dL (8.5-10.1) Triglycerides Level 61mg/dL (0-150) Cholesterol Level 99mg/dL (0-200) LDL Cholesterol, Calculated 37mg/dL (0-100) VLDL Cholesterol, Calculated 12mg/dL (0-40) HDL Cholesterol 50mg/dL (40-60) Cholesterol/HDL Ratio 2.0 Glucose (Fingerstick) 129mg/dL (70-99) 188mg/dL (70-99) Medications Current Medications Acetaminophen (Tylenol) 650 mg PRN Q4HRS PRN PO FEVER; Start 12/05/16 at 15:45 ; Stop 12/06/16 at 15:44 Insulin Aspart (Novolog) 0-5 UNITS TIDWMEALS SQ Last administered on 12/05/16 18:27; Start 12/05/16 at 17:00 Dextrose (Dextrose 50%-Water Syringe) 12.5 gm PRN Q15MIN PRN IV SEE COMMENTS; Start 12/05/16 at 15:45 Lorazepam (Ativan) 0.5 mg PRN TID PRN PO TREMORS Last administered on 12:03; Start 12/05/16 at 16:45 Insulin Aspart (Novolog) 15 units 1X ONCE SQ Last administered on 12/05/16 18 :27; Start 12/05/16 at 17:45; Stop 12/05/16 at 17:47; Status DC Insulin Aspart (Novolog) 20 units 1X ONCE SQ Last administered on 12/05/16 22 :02; Start 12/05/16 at 21:30; Stop 12/05/16 at 21:31; Status DC Alprazolam (Xanax) 0.5 mg PRN Q8HRS PRN PO ANXIETY / AGITATION; Start 12/05/16 at 21:30 Clonidine HCl (Catapres) 0.2 mg PRN DAILY PRN PO ELEVATED BP, SEE COMMENTS Last administered on 12/06/16 12:03; Start 12/05/16 at 21:30 Diclofenac Sodium (Voltaren) 1 ronel TID TP ; Start 12/06/16 at 09:00 Famotidine (Pepcid) 20 mg DAILY PO Last administered on 12/06/16 08:56; Start 12/06/16 at 09:00 Gabapentin (Neurontin) 100 mg TID PO Last administered on 12/06/16 08:56; Start 12/06/16 at 09:00 Acetaminophen/ Hydrocodone Bitart (Lortab 5/325) 1 tab PRN Q6HRS PRN PO SEVERE PAIN Last administered on 12/06/16 12:03; Start 12/05/16 at 21:30 Lactulose 30 gm DAILY PO ; Start 12/06/16 at 09:00 Levothyroxine Sodium (Synthroid) 100 mcg DAILY07 PO Last administered on 06:04; Start 12/06/16 at 07:00 Rifaximin (Xifaxan) 550 mg BID PO Last administered on 12/06/16 08:56; Start 12/05/16 at 22:00 Zolpidem Tartrate (Ambien) 5 mg PRN QHS PRN PO INSOMNIA Last administered on 21:58; Start 12/05/16 at 21:30 Insulin Detemir (Levemir) 50 units QHS SQ Last administered on 12/05/16 22:02 ; Start 12/05/16 at 22:00 Isosorbide Mononitrate (Imdur) 30 mg DAILY PO Last administered on 12/06/16 08 :56; Start 12/06/16 at 09:00 Darbepoetin Brandan (Aranesp) 60 mcg WEEKLYHS SQ ; Start 12/06/16 at 21:00 Hydralazine HCl (Apresoline) 10 mg PRN Q4HRS PRN IVP for SBP > 160; Start 12/06 at 14:15; Status UNV Active Scripts Active Lactulose 20 Gm/30 Ml Solution 30 Gm PO DAILY 30 Days Hydrocodone-Apap 5-325 (Hydrocodone Bit/Acetaminophen) 1 Each Tablet 1 Tab PO PRN Q6HRS PRN Reported Metoprolol Succinate ( Xl ) (Metoprolol Succinate) 25 Mg Tab.er.24h 25 Mg PO DAILY Lantus Solostar (Insulin Glargine,Hum.rec.anlog) 100 Unit/1 Ml Insuln.pen 50 Unit SQ QHS Humalog Kwikpen (Insulin Lispro) 200 Unit/1 Ml Insuln.pen 20-30 Unit SQ TID Ondansetron Hcl 4 Mg Tablet 4 Mg PO Q6HRS PRN Zolpidem Tartrate 5 Mg Tablet 5 Mg PO PRN QHS PRN Famotidine 20 Mg Tablet 20 Mg PO DAILY Voltaren (Diclofenac Sodium) 100 Gm Gel..gram. 1 Gm TP TID Alprazolam 0.5 Mg Tablet 0.5 Mg PO Q8HRS PRN Gabapentin 100 Mg Capsule 100 Mg PO TID Levothyroxine Sodium 100 Mcg Tablet 1 Tab PO DAILY Clonidine Hcl 0.2 Mg Tablet 0.2 Mg PO DAILY PRN Xifaxan (Rifaximin) 550 Mg Tablet 1 Tab PO BID Metoprolol Tartrate 25 Mg Tablet 1 Tab PO DAILY Isosorbide Dinitrate 30 Mg Tablet 1 Tab PO DAILY Vitals/I & O Vital Sign - Last 24 Hours 12/05/16 12/05/16 12/05/16 12/05/16 15:00 16:00 17:00 17:16 Temp 97.5 97.5 Pulse 68 64 71 Resp 17 16 19 B/P 188/80 174/78 164/68 Pulse Ox 96 96 95 O2 Delivery Room Air Room Air Room Air Room Air 12/05/16 12/05/16 12/05/16 12/05/16 17:17 19:20 20:05 23:25 Temp 97.5 98.1 98.1 97.5 98.1 98.1 Pulse 71 70 64 Resp 19 18 18 B/P 164/68 173/59 152/43 Pulse Ox 95 96 97 O2 Delivery Room Air Room Air Room Air Room Air 12/06/16 12/06/16 12/06/16 12/06/16 03:25 07:00 08:00 08:56 Temp 98.2 97.9 98.2 97.9 Pulse 60 67 67 Resp 18 20 B/P 141/58 162/56 162/56 Pulse Ox 100 95 O2 Delivery Nasal Cannula Room Air Room Air O2 Flow Rate 2.0 12/06/16 12/06/16 12/06/16 12/06/16 11:00 12:03 12:03 12:58 Temp 97.7 97.7 Pulse 74 75 Resp 20 16 18 B/P 185/70 179/64 Pulse Ox 94 O2 Delivery Room Air Room Air Room Air Intake and Output 12/05/16 12/05/1612/06/17 14:59 22:59 06:59 Intake Total 0 ml 0 ml Balance 0 ml 0 ml NARA DIAZ MD Dec 06, 2016 14:11
[2016-12-06] MEDS ORDERED: hydrALAZINE 20 MG/ML VIAL. IVP PRN (14:15)
[2016-12-06 15:00] VITALS: BP 103/43
--- NOTE | 2016-12-06 15:34 | PDOC ---
PROGRESS NOTES Assessment Assessment Right hand spasm x 2 days. Hyperglycemia, glucose 461. Bilateral carpal tunnel syndrome in past. Renal failure on dialysis. Pancytopenia. Thrombocytopenia. Hypocalcemia. UTI DM HTN HLD COPD Hypothyroidism Cardiomegaly. CHF RA? No evidence of acute CVA this time. RECOMMENDATIONS/PLAN: Treat medical diseases. Treat UTI. OT/PT. HISTORY OF THE PRESENT ILLNESS: 71-y-old female patient with complicated medical diseases multiple complaints to come to the ER of [facility]. She also complained of right hand intermittent spasm since 12/04, so Neurology was called for consultation. She has renal failure on dialysis and calcium was low. No focalized motor or sensory deficits. Right hand spasm improved on 12/06. PAST MEDICAL HISTORY: Please see above. PAST SURGERY HISTORY: Bilateral carpal tunnel release. Left knee surgery. ALLERGY: Reviewed. MEDICATIONS: Refer to [facility] HISTORY: Non contributory. SOCIAL HISTORY: Denies illicit drug use. REVIEW OF SYSTEMS: Constitutional: No malnutrition, cachexia. Head: No traumatic brain or head injury. Skin: No edema, or rash. Ear: No infection, tinnitus. Eyes: No vision loss or color blindness. Nose: No bleeding or purulent discharges. Hearing: Hearing decrease. Neck: No injury. Breast: No history of cancer, masses,or discharges. Cardiac: CHF, HTN, HLD. Pulmonary: COPD. GI: No GI ulcer, GI bleeding. Urinary/genital: UTI. Endocrinologic: Diabetes Mellitus, hypothyroidism Skeletomuscular: No muscular atrophy, deformity. Neurological: see HP. Psychiatric: Denies drug use/abuse. Otherwise, not [id number] review of systems. PHYSICAL EXAMINATION: General appearance is in no acute distress. HEENT: Normocephalic and nontraumatic. Eyes, nose, ears, and throat are unremarkable. Neck is supple. No lymphadenopathy. No crepitus. Cardiovascular: S1, S2, regular rate and rhythm. Pulmonary: Clear to auscultation bilaterally. Abdomen: Bowel sounds are positive. Extremities: No rash, lesions, or edema. No restriction of range of motion NEUROLOGICAL EXAMINATION: Awake. Oriented to time, place and person. PERRL. EOMI. CN: no focal findings. Muscle tone: within normal. Muscle strength: 4+ DTR: 2 Plantar reflex: Flexor response bilaterally Gait: able to walk with walker. Sensory exam: no abnormal findings. No cerebellar signs elicited. F-T-N test fine. Right hand spasm mild. Objective Objective Vital Signs Date Time Temp Pulse Resp B/P Pulse Ox O2 Delivery O2 Flow Rate FiO2 12/06/16 15:00 95.5 63 20 103/43 96 Room Air 95.5 12/06/16 03:25 2.0 Intake and Output 12/06/16 07:00 Intake Total 0 ml Balance 0 ml Intake Oral 0 ml # Voids 1 Vitals Signs Vitals VS - Last 72 Hours, by Label Date Time Temp Pulse Resp B/P Pulse Ox O2 Delivery O2 Flow Rate FiO2 12/06/16 15:00 95.5 63 20 103/43 96 Room Air 95.5 12/06/16 12:58 18 Room Air 12/06/16 12:03 16 Room Air 12/06/16 12:03 75 179/64 12/06/16 11:00 97.7 74 20 185/70 94 Room Air 97.7 12/06/16 08:56 67 162/56 12/06/16 08:00 Room Air 12/06/16 07:00 97.9 67 20 162/56 95 Room Air 97.9 12/06/16 03:25 98.2 60 18 141/58 100 Nasal Cannula 2.0 98.2 12/05/16 23:25 98.1 64 18 152/43 97 Room Air 98.1 12/05/16 20:05 Room Air 12/05/16 19:20 98.1 70 18 173/59 96 Room Air 98.1 12/05/16 17:17 97.5 71 19 164/68 95 Room Air 97.5 12/05/16 17:16 97.5 71 19 164/68 95 Room Air 97.5 12/05/16 17:00 Room Air 12/05/16 16:00 64 16 174/78 96 Room Air 12/05/16 15:00 68 17 188/80 96 Room Air 12/05/16 13:07 98.3 86 20 187/71 96 Room Air 98.3 Laboratory Laboratory Laboratory Tests Test 12/05/16 17:22 12/05/16 19:30 12/05/16 21:08 12/06/16 03:30 Glucose (Fingerstick) 360mg/dL (70-99) 339mg/dL (70-99) Erythrocyte Sedimentation Rate 20 (0-25) Ionized Calcium 1.07mmol/L (1.13-1.32) Rheumatoid Factor 36.0IU/mL (0.0-13.9) White Blood Count 4.1x10^3/uL (4.0-11.0) Red Blood Count 3.19x10^6/uL (3.50-5.40) Hemoglobin 9.5g/dL (12.0-15.5) Hematocrit 28.2% (36.0-47.0) Mean Corpuscular Volume 88fL (79-100) Mean Corpuscular Hemoglobin 30pg (25-35) Mean Corpuscular Hemoglobin Concent 34g/dL (31-37) Red Cell Distribution Width 15.2% (11.5-14.5) Platelet Count 51x10^3/uL (140-400) Neutrophils (%) (Auto) 70% (31-73) Lymphocytes (%) (Auto) 16% (24-48) Monocytes (%) (Auto) 10% (0-9) Eosinophils (%) (Auto) 3% (0-3) Basophils (%) (Auto) 1% (0-3) Neutrophils # (Auto) 2.9x10^3uL (1.8-7.7) Lymphocytes # (Auto) 0.7x10^3/uL (1.0-4.8) Monocytes # (Auto) 0.4x10^3/uL (0.0-1.1) Eosinophils # (Auto) 0.1x10^3/uL (0.0-0.7) Basophils # (Auto) 0.0x10^3/uL (0.0-0.2) Sodium Level 142mmol/L (136-145) Potassium Level 3.7mmol/L (3.5-5.1) Chloride Level 106mmol/L (98-107) Carbon Dioxide Level 26mmol/L (21-32) Anion Gap 10 (6-14) Blood Urea Nitrogen 48mg/dL (7-20) Creatinine 3.8mg/dL (0.6-1.0) Estimated GFR (Cockcroft-Gault) 11.7 Glucose Level 92mg/dL (70-99) Calcium Level 8.1mg/dL (8.5-10.1) Triglycerides Level 61mg/dL (0-150) Cholesterol Level 99mg/dL (0-200) LDL Cholesterol, Calculated 37mg/dL (0-100) VLDL Cholesterol, Calculated 12mg/dL (0-40) HDL Cholesterol 50mg/dL (40-60) Cholesterol/HDL Ratio 2.0 Test 12/06/16 08:09 12/06/16 12:00 Glucose (Fingerstick) 129mg/dL (70-99) 188mg/dL (70-99) Microbiology 12/05/16 Urine Culture - Preliminary, Resulted 12/05/16 Urine Culture Result 1 (DARIN) - Preliminary, Resulted Medication Medications Current Medications Acetaminophen (Tylenol) 650 mg PRN Q4HRS PRN PO FEVER; Start 12/05/16 at 15:45 ; Stop 12/06/16 at 15:44 Acetaminophen/ Hydrocodone Bitart (Lortab 5/325) 1 tab PRN Q6HRS PRN PO SEVERE PAIN Last administered on 12/06/16 12:03; Start 12/05/16 at 21:30 Alprazolam (Xanax) 0.5 mg PRN Q8HRS PRN PO ANXIETY / AGITATION; Start 12/05/16 at 21:30 Clonidine HCl (Catapres) 0.2 mg PRN DAILY PRN PO ELEVATED BP, SEE COMMENTS Last administered on 12/06/16 12:03; Start 12/05/16 at 21:30 Darbepoetin Brandan (Aranesp) 60 mcg WEEKLYHS SQ ; Start 12/06/16 at 21:00 Dextrose (Dextrose 50%-Water Syringe) 12.5 gm PRN Q15MIN PRN IV SEE COMMENTS; Start 12/05/16 at 15:45 Diclofenac Sodium (Voltaren) 1 ronel TID TP ; Start 12/06/16 at 09:00 Famotidine (Pepcid) 20 mg DAILY PO Last administered on 12/06/16 08:56; Start 12/06/16 at 09:00 Gabapentin (Neurontin) 100 mg TID PO Last administered on 12/06/16 14:23; Start 12/06/16 at 09:00 Hydralazine HCl (Apresoline) 10 mg PRN Q4HRS PRN IVP for SBP > 160; Start 12/06 at 14:15 Insulin Aspart (Novolog) 0-5 UNITS TIDWMEALS SQ Last administered on 12/05/16 18:27; Start 12/05/16 at 17:00 Insulin Aspart (Novolog) 15 units 1X ONCE SQ Last administered on 12/05/16 18 :27; Start 12/05/16 at 17:45; Stop 12/05/16 at 17:47; Status DC Insulin Aspart (Novolog) 20 units 1X ONCE SQ Last administered on 12/05/16 22 :02; Start 12/05/16 at 21:30; Stop 12/05/16 at 21:31; Status DC Insulin Detemir (Levemir) 50 units QHS SQ Last administered on 12/05/16 22:02 ; Start 12/05/16 at 22:00 Isosorbide Mononitrate (Imdur) 30 mg DAILY PO Last administered on 12/06/16 08 :56; Start 12/06/16 at 09:00 Lactulose 30 gm DAILY PO ; Start 12/06/16 at 09:00 Levothyroxine Sodium (Synthroid) 100 mcg DAILY07 PO Last administered on 06:04; Start 12/06/16 at 07:00 Lorazepam (Ativan) 0.5 mg PRN TID PRN PO TREMORS Last administered on 12:03; Start 12/05/16 at 16:45 Rifaximin (Xifaxan) 550 mg BID PO Last administered on 12/06/16 08:56; Start 12/05/16 at 22:00 Zolpidem Tartrate (Ambien) 5 mg PRN QHS PRN PO INSOMNIA Last administered on 21:58; Start 12/05/16 at 21:30 Comment Review of Relevant I have reviewed the following items karyn (where applicable) has been applied. GARY LOPES MD Dec 06, 2016 15:34
[2016-12-06 18:03] VITALS: BP 141/49
[2016-12-06] MEDS: ZOLPIDEM 5 MG TABLET. PO PRN (20:33)
[2016-12-06] MEDS: INSULIN DETEMIR 300 UNITS/3 ML INSULN.PEN. SQ SCH (20:41)
[2016-12-06] MEDS ORDERED: DARBEPOETIN ALFA 60 MCG/0.3 ML DISP.SYRIN. SQ SCH (21:00)
[2016-12-06 23:21] VITALS: BP 131/52
--- NOTE | 2016-12-06 23:22 | EEG ---
DATE OF SERVICE: 12/06/2016 EEG NUMBER: [id number]. OBJECTIVE: This is a 71-year-old female patient with history of abnormal movement in right hand multiple times a day. EEG was requested to help rule out seizure. METHOD: Twenty electrodes were applied according to the international 10-20 electrode placement system. EKG monitoring, hyperventilation and intermittent photic stimulation, monopolar and bipolar montages are routinely utilized. The record was obtained on a digital system with video monitoring. FINDINGS: 1. Background: The patient was recorded in the awake, drowsy, and sleep states. The overall background amplitude is 10-20 microvolts. A posterior dominant rhythm of 7-8 Hz is observed. 2. Abnormalities: No specific epileptiform discharge or electrographic seizure is seen. No focal or diffuse slowing. 3. Activation: Hyperventilation was performed with fair efforts and normal response. Intermittent photic stimulation was performed with photic driving. No specific epileptiform discharge or electrographic seizure induced with hyperventilation or intermittent photic stimulation. IMPRESSION: This EEG is a mildly abnormal study for the awake, drowsy, and sleep states. The posterior dominant rhythm of 7-8 Hz is mildly slow for age. No focal, lateralizing, specific epileptiform discharges, or electrographic seizure is seen. GARY LOPES MD DR: JULIUS/susannah JOB#: [id number] / [id number] GOKUL
--- NOTE | 2016-12-07 03:05 | CONS ---
DATE OF CONSULTATION: 12/06/2016 CONSULTATION REQUESTED BY: Dr. Eric Ledezma. REASON FOR CONSULTATION: Thrombocytopenia and anemia. HISTORY OF PRESENT ILLNESS: The patient is a 71-year-old female who has a history of nonalcoholic steatohepatitis, cirrhosis of the liver and splenomegaly, who was admitted to [facility] on 12/05/2016 with complaints of right arm weakness and concern for stroke. She was evaluated in the Emergency Room. She underwent CT scan of the head on 12/05/2016 that did not reveal any acute abnormality. Neurology was consulted and Neurology is now planning further evaluation and workup. She was noted to have pancytopenia on 12/05/2016 with a WBC of 3.3, hemoglobin 10.8, platelet count 45,000. A followup CBC on 12/06/2016 revealed a WBC to be 4.1, hemoglobin 9.5 and platelet count 51,000. Hence, I was consulted for further evaluation of pancytopenia. Review of the old records indicates that she has chronic pancytopenia. On 09/22/2013, her WBC was 3.8, hemoglobin 10, platelet count 83,000. On 09/01/2014, her WBC count was 3.6 with a hemoglobin of 11.9, platelet count of 92,000. On 08/28/2015, her hemoglobin was 9.8, WBC 3.6, platelet count 72,000. On 05/30/2016, her WBC was 2.6, hemoglobin 10.6, platelet count 56,000. She has had an abdominal ultrasound on 09/08/2015 that revealed evidence of ascites. CT scan of the abdomen and pelvis on 09/08/2015 revealed cirrhosis of the liver, portal hypertension, ascites, splenomegaly, varices. She has had nosebleeds on and off, but otherwise, she denies any hematemesis, melena, hematochezia, no hemoptysis or hematuria. PAST MEDICAL HISTORY: Carpal tunnel syndrome; end-stage renal disease, on hemodialysis; cirrhosis; splenomegaly; portal hypertension; ascites; encephalopathy; hypothyroidism; hypercholesterolemia; GERD; diabetes mellitus; congestive heart failure; asthma; COPD; CVA; vertigo; Kedgiuw-Mmimm-Sphop syndrome; neuropathy. PAST SURGICAL HISTORY: Hysterectomy, cataract surgery, left knee surgery, bilateral carpal tunnel surgery. SOCIAL HISTORY: No smoking or alcohol abuse. FAMILY HISTORY: Negative for any primary hematologic disorder. REVIEW OF SYSTEMS: A 12-point review of system was performed. Pertinent positives are mentioned in the history of present illness. Rest of the system review is negative. PHYSICAL EXAMINATION: GENERAL APPEARANCE: The patient is a 71-year-old female who is in no acute cardiorespiratory distress. VITAL SIGNS: Blood pressure 162/56, temperature 97.9. HEENT: Head: Atraumatic, normocephalic. Eyes: No icterus. NECK: Supple. CHEST: Bilaterally symmetrical. HEART: S1, S2 normal. ABDOMEN: Soft. She has umbilical hernia. CENTRAL NERVOUS SYSTEM: No focal deficits. LYMPHATICS: No lymphadenopathy. SKIN: No rashes. PSYCHOLOGIC: Mood and affect are appropriate. MUSCULOSKELETAL: No joint effusions. LYMPHATICS: No lymphadenopathy. LABORATORY DATA: On 12/06/2016, WBC 4.1, hemoglobin 9.5, MCV 88, platelet count 51,000. Her iron studies on 09/10/2015 were suggestive of anemia of chronic disease. B12 was normal on 08/16/2015. IMPRESSION AND PLAN: 1. Normochromic normocytic anemia secondary to anemia of chronic disease due to cirrhosis of the liver and end-stage renal disease. In addition, she has evidence of associated thrombocytopenia and leukopenia. Review of the old records indicates that she has chronic pancytopenia and records go back to 2013 when she has had pancytopenia. She did have extensive workup in the past including CT scan and abdominal ultrasound that revealed cirrhosis, portal hypertension and splenomegaly. She has also had a GI evaluation in the past. In addition, a bone marrow aspiration and biopsy was performed on 08/28/2015, which revealed no evidence of primary hematologic disorder and hence the pancytopenia was attributed to splenomegaly due to cirrhosis of the liver. There is no evidence of myelodysplastic syndrome. I explained to the patient the etiology of pancytopenia if cirrhosis and splenomegaly management is only a supportive care. I have advised continued monitoring of CBC and transfusions as needed. 2. Thrombocytopenia secondary to cirrhosis of the liver. Her platelet count was worse at 45,000 on 12/05/2016. There is no evidence of active blood loss. I explained to the patient that the etiology is splenomegaly and cirrhosis of the liver, management will be supportive and if she has any severe bleeding, she may require platelet transfusions. 3. Leukopenia secondary to cirrhosis and splenomegaly. Continue monitoring CBC as needed. 4. Nonalcoholic steatohepatitis, cirrhosis of the liver, portal hypertension. 5. Splenomegaly due to cirrhosis of the liver. 6. Spasms in her hands. Neurology workup ongoing. KEITH SO MD DR: LORENZO/susannah JOB#: [id number] / [id number] ERIC Zuniga
[2016-12-07 03:49] VITALS: BP 89/50
[2016-12-07 05:28] LABS: HEMOGLOBIN 9.8 g/dL (12.0-15.5); RED BLOOD COUNT 3.26 x10^6/uL (3.50-5.40); RED CELL DISTRIBUTION WIDTH 15.5 % (11.5-14.5); WHITE BLOOD COUNT 2.8 x10^3/uL (4.0-11.0)
[2016-12-07 05:46] LABS: GFR 11.1; POTASSIUM 3.8 mmol/L (3.5-5.1)
[2016-12-07] MEDS: LEVOTHYROXINE 100 MCG TABLET PO SCH (06:02)
[2016-12-07 07:00] VITALS: BP 133/52
[2016-12-07] MEDS: INSULIN ASPART 300 UNITS/3 ML INSULN.PEN SQ SCH ×2 (08:00→12:37)
[2016-12-07] MEDS: LACTULOSE 20 GM/30 ML SOLUTION. PO SCH ×2 (09:00→09:12)
[2016-12-07] MEDS: DICLOFENAC SODIUM 1% TOPICAL GEL 100GM TUBE. TP SCH ×2 (09:00→14:00)
[2016-12-07] MEDS: GABAPENTIN 100 MG CAPSULE. PO SCH ×2 (09:13→14:00)
[2016-12-07] MEDS: FAMOTIDINE 20 MG TABLET. PO SCH (09:13)
[2016-12-07] MEDS: RIFAXIMIN 550 MG TABLET PO SCH (09:13)
[2016-12-07 10:58] VITALS: BP 143/47
--- NOTE | 2016-12-07 12:57 | PDOC ---
PROGRESS NOTES Subjective Subjective SEEN IN FOLLOW UP OF ESRD Objective Objective Vital Signs Date Time Temp Pulse Resp B/P Pulse Ox O2 Delivery O2 Flow Rate FiO2 12/07/16 10:58 97.5 58 18 143/47 96 Room Air 97.5 12/07/16 07:00 2.0 Intake and Output 12/07/16 07:00 Intake Total 800 ml Balance 800 ml Intake Oral 800 ml # Voids 6 # Bowel Movements 3 Physical Exam Abdomen: Normal bowel sounds, Soft, No tenderness, No hepatosplenomegaly, No masses Heart: Regular rate, Normal S1, Normal S2, No murmurs, Gallops Extremities: No clubbing, No cyanosis, No edema, Normal pulses, No tenderness/ swelling General: Alert, Oriented X3, Cooperative, No acute distress Lungs: Clear to auscultation, Normal air movement Psych/Mental Status: Mental status NL, Mood NL Diagnosis RENAL FAILURE: ESRD Assessment Assessment Problems Medical Problems: (1) End stage renal disease Status: Acute (2) ESRD (end stage renal disease) Status: Acute (3) Neurological complaint Status: Acute (4) Pulmonary edema Status: Acute Plan Plan of Care FOR DIALYSIS TODAY Comment Review of Relevant I have reviewed the following items karyn (where applicable) has been applied. Labs Laboratory Tests Test 12/05/16 13:30 12/05/16 14:15 12/05/16 17:22 12/05/16 19:30 Urine Collection Type Unknown Urine Color Yellow Urine Clarity Turbid Urine pH 5.0 Urine Specific [place] 1.015 Urine Protein 100mg/dL (NEG-TRACE) Urine Glucose (UA) >=1000mg/dL (NEG) Urine Ketones (Stick) Negativemg/dL (NEG) Urine Blood Moderate (NEG) Urine Nitrite Negative (NEG) Urine Bilirubin Negative (NEG) Urine Urobilinogen Dipstick 0.2mg/dL (0.2 mg/dL) Urine Leukocyte Esterase Large (NEG) Urine RBC 0/HPF (0-2) Urine WBC Tntc/HPF (0-4) Urine Squamous Epithelial Cells Few/LPF Urine Bacteria Few/HPF (0-FEW) Urine Opiates Screen Neg (NEG) Urine Methadone Screen Neg (NEG) Urine Barbiturates Neg (NEG) Urine Phencyclidine Screen Neg (NEG) Urine Amphetamine/Methamphetamine Neg (NEG) Urine Benzodiazepines Screen Neg (NEG) Urine Cocaine Screen Neg (NEG) Urine Cannabinoids Screen Neg (NEG) Urine Ethyl Alcohol Neg (NEG) White Blood Count 3.3x10^3/uL (4.0-11.0) Red Blood Count 3.49x10^6/uL (3.50-5.40) Hemoglobin 10.8g/dL (12.0-15.5) Hematocrit 30.7% (36.0-47.0) Mean Corpuscular Volume 88fL (79-100) Mean Corpuscular Hemoglobin 31pg (25-35) Mean Corpuscular Hemoglobin Concent 35g/dL (31-37) Red Cell Distribution Width 15.5% (11.5-14.5) Platelet Count 45x10^3/uL (140-400) Neutrophils (%) (Auto) 76% (31-73) Lymphocytes (%) (Auto) 14% (24-48) Monocytes (%) (Auto) 7% (0-9) Eosinophils (%) (Auto) 2% (0-3) Basophils (%) (Auto) 1% (0-3) Neutrophils # (Auto) 2.5x10^3uL (1.8-7.7) Lymphocytes # (Auto) 0.5x10^3/uL (1.0-4.8) Monocytes # (Auto) 0.2x10^3/uL (0.0-1.1) Eosinophils # (Auto) 0.1x10^3/uL (0.0-0.7) Basophils # (Auto) 0.0x10^3/uL (0.0-0.2) Prothrombin Time 15.8SEC (11.7-14.0) Prothromb Time International Ratio 1.3 (0.8-1.1) Activated Partial Thromboplast Time 39SEC (24-38) Sodium Level 139mmol/L (136-145) Potassium Level 4.5mmol/L (3.5-5.1) Chloride Level 103mmol/L (98-107) Carbon Dioxide Level 26mmol/L (21-32) Anion Gap 10 (6-14) Blood Urea Nitrogen 45mg/dL (7-20) Creatinine 3.9mg/dL (0.6-1.0) Estimated GFR (Cockcroft-Gault) 11.4 BUN/Creatinine Ratio 12 (6-20) Glucose Level 461mg/dL (70-99) Calcium Level 8.0mg/dL (8.5-10.1) Phosphorus Level 4.9mg/dL (2.6-4.7) Magnesium Level 2.0mg/dL (1.8-2.4) Total Bilirubin 0.8mg/dL (0.2-1.0) Aspartate Amino Transf (AST/SGOT) 18U/L (15-37) Alanine Aminotransferase (ALT/SGPT) 27U/L (14-59) Alkaline Phosphatase 219U/L (46-116) Troponin I Quantitative 0.020ng/mL (0.000-0.055) ZY-Oxd-C-Type Natriuretic Peptide 3921pg/mL (0-124) Total Protein 6.7g/dL (6.4-8.2) Albumin 3.1g/dL (3.4-5.0) Albumin/Globulin Ratio 0.9 (1.0-1.7) Glucose (Fingerstick) 360mg/dL (70-99) Erythrocyte Sedimentation Rate 20 (0-25) Ionized Calcium 1.07mmol/L (1.13-1.32) Rheumatoid Factor 36.0IU/mL (0.0-13.9) Test 12/05/16 21:08 12/06/16 03:30 12/06/16 08:09 12/06/16 12:00 Glucose (Fingerstick) 339mg/dL (70-99) 129mg/dL (70-99) 188mg/dL (70-99) White Blood Count 4.1x10^3/uL (4.0-11.0) Red Blood Count 3.19x10^6/uL (3.50-5.40) Hemoglobin 9.5g/dL (12.0-15.5) Hematocrit 28.2% (36.0-47.0) Mean Corpuscular Volume 88fL (79-100) Mean Corpuscular Hemoglobin 30pg (25-35) Mean Corpuscular Hemoglobin Concent 34g/dL (31-37) Red Cell Distribution Width 15.2% (11.5-14.5) Platelet Count 51x10^3/uL (140-400) Neutrophils (%) (Auto) 70% (31-73) Lymphocytes (%) (Auto) 16% (24-48) Monocytes (%) (Auto) 10% (0-9) Eosinophils (%) (Auto) 3% (0-3) Basophils (%) (Auto) 1% (0-3) Neutrophils # (Auto) 2.9x10^3uL (1.8-7.7) Lymphocytes # (Auto) 0.7x10^3/uL (1.0-4.8) Monocytes # (Auto) 0.4x10^3/uL (0.0-1.1) Eosinophils # (Auto) 0.1x10^3/uL (0.0-0.7) Basophils # (Auto) 0.0x10^3/uL (0.0-0.2) Sodium Level 142mmol/L (136-145) Potassium Level 3.7mmol/L (3.5-5.1) Chloride Level 106mmol/L (98-107) Carbon Dioxide Level 26mmol/L (21-32) Anion Gap 10 (6-14) Blood Urea Nitrogen 48mg/dL (7-20) Creatinine 3.8mg/dL (0.6-1.0) Estimated GFR (Cockcroft-Gault) 11.7 Glucose Level 92mg/dL (70-99) Calcium Level 8.1mg/dL (8.5-10.1) Triglycerides Level 61mg/dL (0-150) Cholesterol Level 99mg/dL (0-200) LDL Cholesterol, Calculated 37mg/dL (0-100) VLDL Cholesterol, Calculated 12mg/dL (0-40) HDL Cholesterol 50mg/dL (40-60) Cholesterol/HDL Ratio 2.0 Test 12/06/16 16:13 12/06/16 20:33 12/07/16 03:40 12/07/16 07:25 Glucose (Fingerstick) 256mg/dL (70-99) 234mg/dL (70-99) 147mg/dL (70-99) White Blood Count 2.8x10^3/uL (4.0-11.0) Red Blood Count 3.26x10^6/uL (3.50-5.40) Hemoglobin 9.8g/dL (12.0-15.5) Hematocrit 29.0% (36.0-47.0) Mean Corpuscular Volume 89fL (79-100) Mean Corpuscular Hemoglobin 30pg (25-35) Mean Corpuscular Hemoglobin Concent 34g/dL (31-37) Red Cell Distribution Width 15.5% (11.5-14.5) Platelet Count 50x10^3/uL (140-400) Sodium Level 140mmol/L (136-145) Potassium Level 3.8mmol/L (3.5-5.1) Chloride Level 105mmol/L (98-107) Carbon Dioxide Level 27mmol/L (21-32) Anion Gap 8 (6-14) Blood Urea Nitrogen 51mg/dL (7-20) Creatinine 4.0mg/dL (0.6-1.0) Estimated GFR (Cockcroft-Gault) 11.1 Glucose Level 186mg/dL (70-99) Calcium Level 8.0mg/dL (8.5-10.1) Test 12/07/16 11:43 Glucose (Fingerstick) 217mg/dL (70-99) Laboratory Tests Test 12/06/16 16:13 12/06/16 20:33 12/07/16 03:40 12/07/16 07:25 Glucose (Fingerstick) 256mg/dL (70-99) 234mg/dL (70-99) 147mg/dL (70-99) White Blood Count 2.8x10^3/uL (4.0-11.0) Red Blood Count 3.26x10^6/uL (3.50-5.40) Hemoglobin 9.8g/dL (12.0-15.5) Hematocrit 29.0% (36.0-47.0) Mean Corpuscular Volume 89fL (79-100) Mean Corpuscular Hemoglobin 30pg (25-35) Mean Corpuscular Hemoglobin Concent 34g/dL (31-37) Red Cell Distribution Width 15.5% (11.5-14.5) Platelet Count 50x10^3/uL (140-400) Sodium Level 140mmol/L (136-145) Potassium Level 3.8mmol/L (3.5-5.1) Chloride Level 105mmol/L (98-107) Carbon Dioxide Level 27mmol/L (21-32) Anion Gap 8 (6-14) Blood Urea Nitrogen 51mg/dL (7-20) Creatinine 4.0mg/dL (0.6-1.0) Estimated GFR (Cockcroft-Gault) 11.1 Glucose Level 186mg/dL (70-99) Calcium Level 8.0mg/dL (8.5-10.1) Test 12/07/16 11:43 Glucose (Fingerstick) 217mg/dL (70-99) Microbiology 12/05/16 Urine Culture - Preliminary, Resulted 12/05/16 Urine Culture Result 1 (DARIN) - Preliminary, Resulted Medications Current Medications Acetaminophen (Tylenol) 650 mg PRN Q4HRS PRN PO FEVER; Start 12/05/16 at 15:45 ; Stop 12/06/16 at 15:44; Status DC Insulin Aspart (Novolog) 0-5 UNITS TIDWMEALS SQ Last administered on 12/07/16 12:37; Start 12/05/16 at 17:00 Dextrose (Dextrose 50%-Water Syringe) 12.5 gm PRN Q15MIN PRN IV SEE COMMENTS; Start 12/05/16 at 15:45 Lorazepam (Ativan) 0.5 mg PRN TID PRN PO TREMORS Last administered on 12:03; Start 12/05/16 at 16:45 Insulin Aspart (Novolog) 15 units 1X ONCE SQ Last administered on 12/05/16 18 :27; Start 12/05/16 at 17:45; Stop 12/05/16 at 17:47; Status DC Insulin Aspart (Novolog) 20 units 1X ONCE SQ Last administered on 12/05/16 22 :02; Start 12/05/16 at 21:30; Stop 12/05/16 at 21:31; Status DC Alprazolam (Xanax) 0.5 mg PRN Q8HRS PRN PO ANXIETY / AGITATION; Start 12/05/16 at 21:30 Clonidine HCl (Catapres) 0.2 mg PRN DAILY PRN PO ELEVATED BP, SEE COMMENTS Last administered on 12/06/16 12:03; Start 12/05/16 at 21:30 Diclofenac Sodium (Voltaren) 1 ronel TID TP Last administered on 12/06/16 20:35 ; Start 12/06/16 at 09:00 Famotidine (Pepcid) 20 mg DAILY PO Last administered on 12/07/16 09:13; Start 12/06/16 at 09:00 Gabapentin (Neurontin) 100 mg TID PO Last administered on 12/07/16 09:13; Start 12/06/16 at 09:00 Acetaminophen/ Hydrocodone Bitart (Lortab 5/325) 1 tab PRN Q6HRS PRN PO SEVERE PAIN Last administered on 12/06/16 12:03; Start 12/05/16 at 21:30 Lactulose 30 gm DAILY PO ; Start 12/06/16 at 09:00 Levothyroxine Sodium (Synthroid) 100 mcg DAILY07 PO Last administered on 06:02; Start 12/06/16 at 07:00 Rifaximin (Xifaxan) 550 mg BID PO Last administered on 12/07/16 09:13; Start 12/05/16 at 22:00 Zolpidem Tartrate (Ambien) 5 mg PRN QHS PRN PO INSOMNIA Last administered on 20:33; Start 12/05/16 at 21:30 Insulin Detemir (Levemir) 50 units QHS SQ Last administered on 12/06/16 20:41 ; Start 12/05/16 at 22:00 Isosorbide Mononitrate (Imdur) 30 mg DAILY PO Last administered on 12/06/16 08 :56; Start 12/06/16 at 09:00 Darbepoetin Brandan (Aranesp) 60 mcg WEEKLYHS SQ Last administered on 12/06/16 20 :34; Start 12/06/16 at 21:00 Hydralazine HCl (Apresoline) 10 mg PRN Q4HRS PRN IVP for SBP > 160; Start 12/06 at 14:15 Active Scripts Active Lactulose 20 Gm/30 Ml Solution 30 Gm PO DAILY 30 Days Hydrocodone-Apap 5-325 (Hydrocodone Bit/Acetaminophen) 1 Each Tablet 1 Tab PO PRN Q6HRS PRN Reported Metoprolol Succinate ( Xl ) (Metoprolol Succinate) 25 Mg Tab.er.24h 25 Mg PO DAILY Lantus Solostar (Insulin Glargine,Hum.rec.anlog) 100 Unit/1 Ml Insuln.pen 50 Unit SQ QHS Humalog Kwikpen (Insulin Lispro) 200 Unit/1 Ml Insuln.pen 20-30 Unit SQ TID Ondansetron Hcl 4 Mg Tablet 4 Mg PO Q6HRS PRN Zolpidem Tartrate 5 Mg Tablet 5 Mg PO PRN QHS PRN Famotidine 20 Mg Tablet 20 Mg PO DAILY Voltaren (Diclofenac Sodium) 100 Gm Gel..gram. 1 Gm TP TID Alprazolam 0.5 Mg Tablet 0.5 Mg PO Q8HRS PRN Gabapentin 100 Mg Capsule 100 Mg PO TID Levothyroxine Sodium 100 Mcg Tablet 1 Tab PO DAILY Clonidine Hcl 0.2 Mg Tablet 0.2 Mg PO DAILY PRN Xifaxan (Rifaximin) 550 Mg Tablet 1 Tab PO BID Metoprolol Tartrate 25 Mg Tablet 1 Tab PO DAILY Isosorbide Dinitrate 30 Mg Tablet 1 Tab PO DAILY Vitals/I & O Vital Sign - Last 24 Hours 12/06/16 12/06/16 12/06/16 12/06/16 12:58 15:00 18:03 20:07 Temp 95.5 97.7 95.5 97.7 Pulse 63 66 Resp 18 20 17 B/P 103/43 141/49 Pulse Ox 96 O2 Delivery Room Air Room Air Room Air Room Air 12/06/16 12/07/16 12/07/16 12/07/16 23:21 03:49 07:00 08:00 Temp 96.4 96.4 98.0 96.4 96.4 98.0 Pulse 68 63 58 Resp 16 16 18 B/P 131/52 89/50 133/52 Pulse Ox 94 99 100 O2 Delivery Room Air Room Air Nasal Cannula Room Air O2 Flow Rate 2.0 12/07/16 10:58 Temp 97.5 97.5 Pulse 58 Resp 18 B/P 143/47 Pulse Ox 96 O2 Delivery Room Air Intake and Output 12/06/16 12/06/16 12/07/16 15:00 23:00 07:00 Intake Total 360 ml 240 ml 200 ml Balance 360 ml 240 ml 200 ml Nutrition Consultation Dietary Evaluation: Recommendations by RD: Dietary education by RD, Increase Calorie Intake, Protein supplementation Comments: Boost glucose control BID - 250kcal and 14g protein per serving for increased nutrient needs of ESRD on HD Educated on renal diet and provided handout for reference upon d/c Expected Outcomes/Goals: to meet >75% est nutr needs Malnutrition Findings: Weight Status: Obese Fluid Accumulation (Non-Severe: Mild depletion LUDWIG MARIE MD Dec 07, 2016 12:57
--- NOTE | 2016-12-07 18:31 | PDOC ---
PROGRESS NOTES Chief Complaint Chief Complaint cc: arm tightness A/P 1. RUE neuro symptoms, unclear etiology, : MRI negative, EEG pending, Symptoms resolved, ? TIA vs Neuropathy 2. End-stage renal disease, on hemodialysis: MTS 3. Nonalcoholic cirrhosis. 4. Hypertension. not controlled. :PRN hydralazine added, labs reviewed. 5. Diabetes mellitus with hyperglycemia. 6. Peripheral neuropathy. 7. Thrombocytopenia. : chronic stable. Vitals Vitals Vital Signs Date Time Temp Pulse Resp B/P Pulse Ox O2 Delivery O2 Flow Rate FiO2 12/07/16 10:58 97.5 58 18 143/47 96 Room Air 97.5 12/07/16 07:00 2.0 Physical Exam General: Alert, Oriented X3, Cooperative, No acute distress Heart: Regular rate, Normal S1, Normal S2, No murmurs, Gallops Lungs: Clear Abdomen: Normal bowel sounds, Soft, No tenderness, No hepatosplenomegaly, No masses Extremities: No clubbing, No cyanosis, No edema, Normal pulses, No tenderness/ swelling Skin: No significant lesion Labs LABS Laboratory Tests Test 12/06/16 20:33 12/07/16 03:40 12/07/16 07:25 12/07/16 11:43 Glucose (Fingerstick) 234mg/dL (70-99) 147mg/dL (70-99) 217mg/dL (70-99) White Blood Count 2.8x10^3/uL (4.0-11.0) Red Blood Count 3.26x10^6/uL (3.50-5.40) Hemoglobin 9.8g/dL (12.0-15.5) Hematocrit 29.0% (36.0-47.0) Mean Corpuscular Volume 89fL (79-100) Mean Corpuscular Hemoglobin 30pg (25-35) Mean Corpuscular Hemoglobin Concent 34g/dL (31-37) Red Cell Distribution Width 15.5% (11.5-14.5) Platelet Count 50x10^3/uL (140-400) Sodium Level 140mmol/L (136-145) Potassium Level 3.8mmol/L (3.5-5.1) Chloride Level 105mmol/L (98-107) Carbon Dioxide Level 27mmol/L (21-32) Anion Gap 8 (6-14) Blood Urea Nitrogen 51mg/dL (7-20) Creatinine 4.0mg/dL (0.6-1.0) Estimated GFR (Cockcroft-Gault) 11.1 Glucose Level 186mg/dL (70-99) Calcium Level 8.0mg/dL (8.5-10.1) Assessment and Plan Assessmemt and Plan Problems Medical Problems: (1) End stage renal disease Status: Acute (2) ESRD (end stage renal disease) Status: Acute (3) Neurological complaint Status: Acute (4) Pulmonary edema Status: Acute Problems: Comment Review of Relevant I have reviewed the following items karyn (where applicable) has been applied. Labs Laboratory Tests Test 12/05/16 19:30 12/05/16 21:08 12/06/16 03:30 12/06/16 08:09 Erythrocyte Sedimentation Rate 20 (0-25) Ionized Calcium 1.07mmol/L (1.13-1.32) Rheumatoid Factor 36.0IU/mL (0.0-13.9) Glucose (Fingerstick) 339mg/dL (70-99) 129mg/dL (70-99) White Blood Count 4.1x10^3/uL (4.0-11.0) Red Blood Count 3.19x10^6/uL (3.50-5.40) Hemoglobin 9.5g/dL (12.0-15.5) Hematocrit 28.2% (36.0-47.0) Mean Corpuscular Volume 88fL (79-100) Mean Corpuscular Hemoglobin 30pg (25-35) Mean Corpuscular Hemoglobin Concent 34g/dL (31-37) Red Cell Distribution Width 15.2% (11.5-14.5) Platelet Count 51x10^3/uL (140-400) Neutrophils (%) (Auto) 70% (31-73) Lymphocytes (%) (Auto) 16% (24-48) Monocytes (%) (Auto) 10% (0-9) Eosinophils (%) (Auto) 3% (0-3) Basophils (%) (Auto) 1% (0-3) Neutrophils # (Auto) 2.9x10^3uL (1.8-7.7) Lymphocytes # (Auto) 0.7x10^3/uL (1.0-4.8) Monocytes # (Auto) 0.4x10^3/uL (0.0-1.1) Eosinophils # (Auto) 0.1x10^3/uL (0.0-0.7) Basophils # (Auto) 0.0x10^3/uL (0.0-0.2) Sodium Level 142mmol/L (136-145) Potassium Level 3.7mmol/L (3.5-5.1) Chloride Level 106mmol/L (98-107) Carbon Dioxide Level 26mmol/L (21-32) Anion Gap 10 (6-14) Blood Urea Nitrogen 48mg/dL (7-20) Creatinine 3.8mg/dL (0.6-1.0) Estimated GFR (Cockcroft-Gault) 11.7 Glucose Level 92mg/dL (70-99) Calcium Level 8.1mg/dL (8.5-10.1) Triglycerides Level 61mg/dL (0-150) Cholesterol Level 99mg/dL (0-200) LDL Cholesterol, Calculated 37mg/dL (0-100) VLDL Cholesterol, Calculated 12mg/dL (0-40) HDL Cholesterol 50mg/dL (40-60) Cholesterol/HDL Ratio 2.0 Test 12/06/16 12:00 12/06/16 16:13 12/06/16 20:33 12/07/16 03:40 Glucose (Fingerstick) 188mg/dL (70-99) 256mg/dL (70-99) 234mg/dL (70-99) White Blood Count 2.8x10^3/uL (4.0-11.0) Red Blood Count 3.26x10^6/uL (3.50-5.40) Hemoglobin 9.8g/dL (12.0-15.5) Hematocrit 29.0% (36.0-47.0) Mean Corpuscular Volume 89fL (79-100) Mean Corpuscular Hemoglobin 30pg (25-35) Mean Corpuscular Hemoglobin Concent 34g/dL (31-37) Red Cell Distribution Width 15.5% (11.5-14.5) Platelet Count 50x10^3/uL (140-400) Sodium Level 140mmol/L (136-145) Potassium Level 3.8mmol/L (3.5-5.1) Chloride Level 105mmol/L (98-107) Carbon Dioxide Level 27mmol/L (21-32) Anion Gap 8 (6-14) Blood Urea Nitrogen 51mg/dL (7-20) Creatinine 4.0mg/dL (0.6-1.0) Estimated GFR (Cockcroft-Gault) 11.1 Glucose Level 186mg/dL (70-99) Calcium Level 8.0mg/dL (8.5-10.1) Test 12/07/16 07:25 12/07/16 11:43 Glucose (Fingerstick) 147mg/dL (70-99) 217mg/dL (70-99) Laboratory Tests Test 12/06/16 20:33 12/07/16 03:40 12/07/16 07:25 12/07/16 11:43 Glucose (Fingerstick) 234mg/dL (70-99) 147mg/dL (70-99) 217mg/dL (70-99) White Blood Count 2.8x10^3/uL (4.0-11.0) Red Blood Count 3.26x10^6/uL (3.50-5.40) Hemoglobin 9.8g/dL (12.0-15.5) Hematocrit 29.0% (36.0-47.0) Mean Corpuscular Volume 89fL (79-100) Mean Corpuscular Hemoglobin 30pg (25-35) Mean Corpuscular Hemoglobin Concent 34g/dL (31-37) Red Cell Distribution Width 15.5% (11.5-14.5) Platelet Count 50x10^3/uL (140-400) Sodium Level 140mmol/L (136-145) Potassium Level 3.8mmol/L (3.5-5.1) Chloride Level 105mmol/L (98-107) Carbon Dioxide Level 27mmol/L (21-32) Anion Gap 8 (6-14) Blood Urea Nitrogen 51mg/dL (7-20) Creatinine 4.0mg/dL (0.6-1.0) Estimated GFR (Cockcroft-Gault) 11.1 Glucose Level 186mg/dL (70-99) Calcium Level 8.0mg/dL (8.5-10.1) Microbiology 12/05/16 Urine Culture - Final, Complete 12/05/16 Urine Culture Result 1 (DARIN) - Final, Complete 12/05/16 Antimicrobic Susceptibility - Final, Complete Medications Current Medications Acetaminophen (Tylenol) 650 mg PRN Q4HRS PRN PO FEVER; Start 12/05/16 at 15:45 ; Stop 12/06/16 at 15:44; Status DC Insulin Aspart (Novolog) 0-5 UNITS TIDWMEALS SQ Last administered on 12/07/16 12:37; Start 12/05/16 at 17:00 Dextrose (Dextrose 50%-Water Syringe) 12.5 gm PRN Q15MIN PRN IV SEE COMMENTS; Start 12/05/16 at 15:45 Lorazepam (Ativan) 0.5 mg PRN TID PRN PO TREMORS Last administered on 12:03; Start 12/05/16 at 16:45 Insulin Aspart (Novolog) 15 units 1X ONCE SQ Last administered on 12/05/16 18 :27; Start 12/05/16 at 17:45; Stop 12/05/16 at 17:47; Status DC Insulin Aspart (Novolog) 20 units 1X ONCE SQ Last administered on 12/05/16 22 :02; Start 12/05/16 at 21:30; Stop 12/05/16 at 21:31; Status DC Alprazolam (Xanax) 0.5 mg PRN Q8HRS PRN PO ANXIETY / AGITATION; Start 12/05/16 at 21:30 Clonidine HCl (Catapres) 0.2 mg PRN DAILY PRN PO ELEVATED BP, SEE COMMENTS Last administered on 12/06/16 12:03; Start 12/05/16 at 21:30 Diclofenac Sodium (Voltaren) 1 ronel TID TP Last administered on 12/06/16 20:35 ; Start 12/06/16 at 09:00 Famotidine (Pepcid) 20 mg DAILY PO Last administered on 12/07/16 09:13; Start 12/06/16 at 09:00 Gabapentin (Neurontin) 100 mg TID PO Last administered on 12/07/16 09:13; Start 12/06/16 at 09:00 Acetaminophen/ Hydrocodone Bitart (Lortab 5/325) 1 tab PRN Q6HRS PRN PO SEVERE PAIN Last administered on 12/06/16 12:03; Start 12/05/16 at 21:30 Lactulose 30 gm DAILY PO ; Start 12/06/16 at 09:00 Levothyroxine Sodium (Synthroid) 100 mcg DAILY07 PO Last administered on 06:02; Start 12/06/16 at 07:00 Rifaximin (Xifaxan) 550 mg BID PO Last administered on 12/07/16 09:13; Start 12/05/16 at 22:00 Zolpidem Tartrate (Ambien) 5 mg PRN QHS PRN PO INSOMNIA Last administered on 20:33; Start 12/05/16 at 21:30 Insulin Detemir (Levemir) 50 units QHS SQ Last administered on 12/06/16 20:41 ; Start 12/05/16 at 22:00 Isosorbide Mononitrate (Imdur) 30 mg DAILY PO Last administered on 12/06/16 08 :56; Start 12/06/16 at 09:00 Darbepoetin Brandan (Aranesp) 60 mcg WEEKLYHS SQ Last administered on 12/06/16 20 :34; Start 12/06/16 at 21:00 Hydralazine HCl (Apresoline) 10 mg PRN Q4HRS PRN IVP for SBP > 160; Start 12/06 at 14:15 Active Scripts Active Lactulose 20 Gm/30 Ml Solution 30 Gm PO DAILY 30 Days Hydrocodone-Apap 5-325 (Hydrocodone Bit/Acetaminophen) 1 Each Tablet 1 Tab PO PRN Q6HRS PRN Reported Metoprolol Succinate ( Xl ) (Metoprolol Succinate) 25 Mg Tab.er.24h 25 Mg PO DAILY Lantus Solostar (Insulin Glargine,Hum.rec.anlog) 100 Unit/1 Ml Insuln.pen 50 Unit SQ QHS Humalog Kwikpen (Insulin Lispro) 200 Unit/1 Ml Insuln.pen 20-30 Unit SQ TID Ondansetron Hcl 4 Mg Tablet 4 Mg PO Q6HRS PRN Zolpidem Tartrate 5 Mg Tablet 5 Mg PO PRN QHS PRN Famotidine 20 Mg Tablet 20 Mg PO DAILY Voltaren (Diclofenac Sodium) 100 Gm Gel..gram. 1 Gm TP TID Alprazolam 0.5 Mg Tablet 0.5 Mg PO Q8HRS PRN Gabapentin 100 Mg Capsule 100 Mg PO TID Levothyroxine Sodium 100 Mcg Tablet 1 Tab PO DAILY Clonidine Hcl 0.2 Mg Tablet 0.2 Mg PO DAILY PRN Xifaxan (Rifaximin) 550 Mg Tablet 1 Tab PO BID Metoprolol Tartrate 25 Mg Tablet 1 Tab PO DAILY Isosorbide Dinitrate 30 Mg Tablet 1 Tab PO DAILY Vitals/I & O Vital Sign - Last 24 Hours 12/06/16 12/06/16 12/07/16 12/07/16 20:07 23:21 03:49 07:00 Temp 96.4 96.4 98.0 96.4 96.4 98.0 Pulse 68 63 58 Resp 16 16 18 B/P 131/52 89/50 133/52 Pulse Ox 94 99 100 O2 Delivery Room Air Room Air Room Air Nasal Cannula O2 Flow Rate 2.0 12/07/16 12/07/16 08:00 10:58 Temp 97.5 97.5 Pulse 58 Resp 18 B/P 143/47 Pulse Ox 96 O2 Delivery Room Air Room Air Intake and Output 12/06/16 12/06/16 12/07/16 15:00 23:00 07:00 Intake Total 360 ml 240 ml 200 ml Balance 360 ml 240 ml 200 ml Nutrition Consultation Dietary Evaluation: Recommendations by RD: Dietary education by RD, Increase Calorie Intake, Protein supplementation Comments: Boost glucose control BID - 250kcal and 14g protein per serving for increased nutrient needs of ESRD on HD Educated on renal diet and provided handout for reference upon d/c Expected Outcomes/Goals: to meet >75% est nutr needs Malnutrition Findings: Weight Status: Obese Fluid Accumulation (Non-Severe: Mild depletion NARA DIAZ MD Dec 07, 2016 18:31
[2016-12-07 19:55] VITALS: BP 150/49
[2016-12-07] MEDS ORDERED: DIALYSIS PATIENT. MC PRN ×2 (22:30)
--- NOTE | 2016-12-16 05:56 | DS ---
DATE OF DISCHARGE: 12/08/2016 DISCHARGE DIAGNOSES: 1. Right upper extremity ____ symptoms, unclear etiology, suspected transient ischemic attack. MRI is negative. EEG is negative. 2. End-stage renal disease, on hemodialysis. 3. Nonalcoholic cirrhosis. 4. Hypertension. 5. Diabetes mellitus with hyperglycemia. 6. Peripheral neuropathy. 7. Thrombocytopenia. BRIEF HOSPITAL COURSE: This is a 71-year-old female patient admitted to the hospital for suspected CVA-like symptoms. She was evaluated by Neurology and she had investigations such as an MRI, which is negative. Her right upper extremity hand spasm for 2 days may be due to her carpal tunnel syndrome in the past or electrolyte problems due to her dialysis. At the time of my examination, the patient's strength is intact; however, she had some limited range of motion, which is chronic in nature as per the patient. At the time of discharge, she deemed clinically stable enough to go home and follow up with primary care doctor. DISCHARGE PHYSICAL EXAMINATION: Please see my progress note. DISCHARGE CONDITION: Stable. FOLLOWUP: With primary care doctor. MEDICATIONS: Reviewed, reconciled. Please see MRAD. DIET: Renal diet. Total time spent for discharge is 32 minutes for patient education, counseling and coordination of care. NARA DIAZ MD DR: LÁZARO/susannah JOB#: [id number] / [id number]
== END 2016-12-08 00:04 | disposition home or self-care (01) | DRG 291 ==
LOC: ER 10:52 → 6 SOUTH 15:31
PROVIDERS: ADMIT Internal Medicine; ATTEND Internal Medicine
PROC: 5A1D00Z (ICD-10-PCS; principal; 2016-12-06)
DX: I13.2 Hypertensive heart and chronic kidney disease with heart failure and with stage 5 chronic kidney disease, or end stage renal disease (principal); N18.6 End stage renal disease; K76.6 Portal hypertension; N39.0 Urinary tract infection, site not specified; G45.9 Transient cerebral ischemic attack, unspecified; E11.40 Type 2 diabetes mellitus with diabetic neuropathy, unspecified; R29.818 Other symptoms and signs involving the nervous system; E11.22 Type 2 diabetes mellitus with diabetic chronic kidney disease; E03.9 Hypothyroidism, unspecified; D69.59 Other secondary thrombocytopenia; D63.8 Anemia in other chronic diseases classified elsewhere; E11.65 Type 2 diabetes mellitus with hyperglycemia; E78.00 Pure hypercholesterolemia, unspecified; E78.5 Hyperlipidemia, unspecified; J44.9 Chronic obstructive pulmonary disease, unspecified; K21.9 Gastro-esophageal reflux disease without esophagitis; K74.60 Unspecified cirrhosis of liver; K75.81 Nonalcoholic steatohepatitis (NASH); E21.3 Hyperparathyroidism, unspecified; F32.9 Major depressive disorder, single episode, unspecified; F41.9 Anxiety disorder, unspecified; G56.03 Carpal tunnel syndrome, bilateral upper limbs; M19.90 Unspecified osteoarthritis, unspecified site; Z82.3 Family history of stroke; Z82.49 Family history of ischemic heart disease and other diseases of the circulatory system; Z86.73 Personal history of transient ischemic attack (TIA), and cerebral infarction without residual deficits; Z90.710 Acquired absence of both cervix and uterus; Z87.891 Personal history of nicotine dependence; Z99.2 Dependence on renal dialysis
CPT/HCPCS: 36415; 70450; 70551; 71010; 80048; 80053; 80061; 81001; 82310; 82947; 83735; 83880; 84100; 84484; 85027; 85610; 85651; 85730; 86431; 87086; 87186; 93005; 95816; G0481; J0881; J1815; 99285-25

== ENCOUNTER 2017-03-14 20:14 | Inpatient (IN) | payer MEDICARE, OTHER ==
[~2017-03-14] VITALS: Ht 152.4 cm; Wt 83.5 kg
[~2017-03-14 20:14] MED LIST changes: +ASPI-630 PO; -ASPI81TA2 PO; +DICL100G18 TP; -DICL100G7 TP; -HYDR-2666 PO; +HYDR-2758 PO; +INSU200I SQ; -ISOS30TA17 PO; +ISOS30TA19 PO; -LEVO500T38 PO; +LEVO500T59 PO; +NITR0.4T22 SL; -NITR0.4T6 SL; -ONDA-35 PO; +ONDA4TAB11 PO; -RIFA550T PO; +RIFA550T4 PO
--- NOTE | 2017-03-14 20:28 | PHYS DOC ---
Past Medical History Past Medical History: Asthma, CHF, COPD, CVA, Depression, Diabetes-Type II, GERD, High Cholesterol, Hypertension, Hypothyroid, Renal Disease, Renal Failure , Other Additional Past Medical Histor: vertigo, Charcoe Qiana Tooth, neuropathy, Cirrhosis Past Surgical History: Hysterectomy, Other Additional Past Surgical Histo: bilat cataracts, L knee, bilat carpal tunnel, R trigger finger, R foot Alcohol Use: None Drug Use: None Adult General Chief Complaint Chief Complaint: TREMORS HPI HPI Patient is a 71 year old female who presents with left-sided facial/ seizure activity, has been states that she was trying take her teeth out nose and she couldn't do anything she Staring at him he had a layered down on the side per EMS request. According her this lasted for partially 5 minutes until EMS arrived. EMS stated that her symptoms had resolved and she hadn't elevated glucose they could not even register on their machines. Currently she denies any fevers chills nausea vomiting abdominal pain or focal weaknesses. She states she was concerned she might be having a stroke since she's had one before needed TPA to fix it. She is end-stage renal disease and is scheduled for dialysis tomorrow. Review of Systems Review of Systems Constitutional: Denies fever or chills [] Eyes: Denies change in visual acuity, redness, or eye pain [] HENT: Denies nasal congestion or sore throat [] Respiratory: Denies cough or shortness of breath [] Cardiovascular: No additional information not addressed in HPI [] GI: Denies abdominal pain, nausea, vomiting, bloody stools or diarrhea [] : Denies dysuria or hematuria [] Musculoskeletal: Denies back pain or joint pain [] Integument: Denies rash or skin lesions [] Neurologic: Denies headache, focal weakness or sensory changes [] Endocrine: Denies polyuria or polydipsia [] Current Medications Current Medications Current Medications Medications (Trade) Dose Ordered Sig/Vijay Start Time Stop Time Status Last Admin Dose Admin Hydralazine HCl (Apresoline) 10 mg 1X ONCE 03/14/17 22:30 03/14/17 22:31 DC 03/14/17 22:25 10 MG Insulin Aspart (NovoLOG) 20 units 1X ONCE 03/14/17 22:30 03/14/17 22:31 DC 03/14/17 22:31 20 UNITS Lorazepam (Ativan) 2 mg STK-MED ONCE 03/14/17 22:32 03/14/17 22:33 DC Sodium Chloride 1,000 ml @ 1,000 mls/hr 1X ONCE 03/14/17 22:30 03/14/17 23:29 DC 03/14/17 22:23 1,000 MLS/HR Allergies Allergies Allergies Coded Allergies Type Severity Reaction Last Updated Verified adhesive Allergy Intermediate Rash 04/09/16 Yes Physical Exam Physical Exam Constitutional: Well developed, well nourished, no acute distress, non-toxic appearance. [] HENT: Normocephalic, atraumatic, bilateral external ears normal, oropharynx moist, no oral exudates, nose normal. [] Eyes: PERRLA, EOMI, conjunctiva normal, no discharge. [] Neck: Normal range of motion, no tenderness, supple, no stridor. [] Cardiovascular:Heart rate regular rhythm, no murmur [] Lungs & Thorax: Bilateral breath sounds clear to auscultation [] Abdomen: Bowel sounds normal, soft, no tenderness, no masses, no pulsatile masses. [] Skin: Warm, dry, no erythema, no rash. [] Back: No tenderness, no CVA tenderness. [] Extremities: No tenderness, no cyanosis, no clubbing, ROM intact, no edema. [] Neurologic: Alert and oriented X 3, normal motor function, normal sensory function, no focal deficits noted. [] Psychologic: Affect normal, judgement normal, mood normal. [] Current Patient Data Vital Signs Vital Signs Date Time Temp Pulse Resp B/P (MAP) Pulse Ox O2 Delivery O2 Flow Rate FiO2 03/14/17 22:25 81 197/121 03/14/17 20:24 98.2 26 97 Room Air 98.2 Lab Values Laboratory Tests Test 03/14/17 20:40 03/14/17 21:13 White Blood Count 3.0 x10^3/uL (4.0-11.0) L Red Blood Count 3.60 x10^6/uL (3.50-5.40) Hemoglobin 10.7 g/dL (12.0-15.5) L Hematocrit 32.6 % (36.0-47.0) L Mean Corpuscular Volume 91 fL (79-100) Mean Corpuscular Hemoglobin 30 pg (25-35) Mean Corpuscular Hemoglobin Concent 33 g/dL (31-37) Red Cell Distribution Width 16.5 % (11.5-14.5) H Platelet Count 58 x10^3/uL (140-400) L Neutrophils (%) (Auto) 69 % (31-73) Lymphocytes (%) (Auto) 16 % (24-48) L Monocytes (%) (Auto) 9 % (0-9) Eosinophils (%) (Auto) 5 % (0-3) H Basophils (%) (Auto) 1 % (0-3) Neutrophils # (Auto) 2.1 x10^3uL (1.8-7.7) Lymphocytes # (Auto) 0.5 x10^3/uL (1.0-4.8) L Monocytes # (Auto) 0.3 x10^3/uL (0.0-1.1) Eosinophils # (Auto) 0.1 x10^3/uL (0.0-0.7) Basophils # (Auto) 0.0 x10^3/uL (0.0-0.2) Sodium Level 134 mmol/L (136-145) L Potassium Level 3.8 mmol/L (3.5-5.1) Chloride Level 96 mmol/L (98-107) L Carbon Dioxide Level 28 mmol/L (21-32) Anion Gap 10 (6-14) Blood Urea Nitrogen 24 mg/dL (7-20) H Creatinine 2.9 mg/dL (0.6-1.0) H Estimated GFR (Cockcroft-Gault) 16.0 Glucose Level 747 mg/dL (70-99) *H Calcium Level 8.2 mg/dL (8.5-10.1) L Magnesium Level 1.8 mg/dL (1.8-2.4) Creatine Kinase 101 U/L (26-192) Creatine Kinase MB (Mass) 2.0 ng/mL (0.0-3.6) Creatine Kinase MB Relative Index 2.0 % (0-4) Troponin I Quantitative < 0.017 ng/mL (0.000-0.055) IB-Dgc-L-Type Natriuretic Peptide 4352 pg/mL (0-124) H Lipase 123 U/L (73-393) Thyroid Stimulating Hormone (TSH) 6.892 uIU/mL (0.358-3.74) H Urine Collection Type Unknown Urine Color Yellow Urine Clarity Clear Urine pH 5.0 Urine Specific [place] 1.025 Urine Protein 100 mg/dL (NEG-TRACE) Urine Glucose (UA) >=1000 mg/dL (NEG) Urine Ketones (Stick) Negative mg/dL (NEG) Urine Blood Large (NEG) Urine Nitrite Negative (NEG) Urine Bilirubin Negative (NEG) Urine Urobilinogen Dipstick 1.0 mg/dL (0.2 mg/dL) Urine Leukocyte Esterase Small (NEG) Urine RBC 11-20 /HPF (0-2) Urine WBC 5-10 /HPF (0-4) Urine Squamous Epithelial Cells Many /LPF Urine Bacteria Moderate /HPF (0-FEW) Laboratory Tests 03/14/17 20:40 Laboratory Tests 03/14/17 20:40 EKG EKG EKG shows sinus rhythm rate [address] elevations, T-wave inversions appreciated in lead aVL, left axis deviation noted, QTC 439 ms, as interpreted by me. Radiology/Procedures Radiology/Procedures View chest x-ray did not show any focal consolidations, bony abnormality, pneumothorax, as interpreted by me. [facility] [address] [place] [address] IMAGING REPORT Signed PATIENT: YIN DIAZ ACCOUNT: [id number] : 1945 LOCATION: ER AGE: 71 SEX: F EXAM STATUS: REG ER ORD. PHYSICIAN: MOHAMUD CONTRERAS MD REASON: left facial droop-resolved; pt has not taken her insulin today PROCEDURE: CT HEAD WO CONTRAST Exam performed: CT scan of the head without contrast. Date of Service: 03/14/2017. Comparison CT head without contrast from 12/05/2016. Clinical History: Dizziness and syncope. Technique: Helical acquisitions are obtained from the foramen magnum to the vertex without intravenous administration of contrast. Findings: Prominence of cortical sulci and ventricular system is noted consistent with age-related atrophy. There are areas of low-attenuation in both periventricular and subcortical deep white matter suggesting small vessel ischemic changes. Normal billy-white differentiation is maintained. There is no extra axial fluid collection, intraparenchymal hemorrhage or mass lesion. The visualized portions of the orbits, paranasal sinuses and the mastoid air cells appear clear. The calvarium is intact. Impression: 1. No acute intracranial process detected. 2. Age-related atrophy and bilateral periventricular small vessel ischemic changes. RS Compliance Statement: One or more of the following individualized dose reduction techniques were utilized for this examination: 1. Automated exposure control 2. Adjustment of the mA and/or kV according to patient size 3. Use of iterative reconstruction technique Electronically signed by: Angie Llamas MD (03/14/2017 10:14 PM) [facility] DICTATED and SIGNED BY: ANGIE LLAMAS MD DATE: 03/14/172211 CC: CATHLEEN OLGUIN; MOHAMUD CONTRERAS MD ~ Impressions: New-onset seizure Hyperglycemia Hypertensive urgency Uncontrolled diabetes Course & Med Decision Making Course & Med Decision Making Pertinent Labs and Imaging studies reviewed. (See chart for details) Her symptoms sound like a seizure. She did have a episode in the ER which lasted approximately 3 minutes of her jaw shaking and her unable to speak coherently no she can move all of her extremities and follow commands. This resolved with 1 mg Ativan. Spoke with Dr. Matias, who recommended giving a [address] head was negative which has been obtained and is now ordered. Her blood pressure is being treated with when necessary hydralazine IV. She also received 20 units subcutaneous NovoLog for glucose of 700s. She has a new onset seizure which could be secondary to her hyperglycemia or her previous stroke. MRI of brain is also ordered that can happen in the a.m. Patient is not a candidate for TPN since her glucose is greater than 400. male admitted to the ICU at this time in stable condition. Critical care time 55 minutes of critical care time was used on this patient excluding procedures. Dragon Disclaimer Dragon Disclaimer This electronic medical record was generated, in whole or in part, using a voice recognition dictation system. Departure Departure Impression: Primary Impression: Seizure Disposition: ADMITTED INPATIENT Admitting Physician: Other Condition: STABLE Referrals: CATHLEEN OLGUIN (PCP) MOHAMUD CONTRERAS MD Mar 14, 2017 20:28
[2017-03-14 20:47] LABS: BASO % 1 % (0-3); EOS % 5 % (0-3); HEMATOCRIT 32.6 % (36.0-47.0); HEMOGLOBIN 10.7 g/dL (12.0-15.5); LYMPH # 0.5 x10^3/uL (1.0-4.8); LYMPH % 16 % (24-48); MEAN CORPUSCULAR HEMOGLOBIN 30 pg (25-35); MEAN CORPUSCULAR HGB CONC 33 g/dL (31-37); MEAN CORPUSCULAR VOLUME 91 fL (79-100); MONO % 9 % (0-9); NEUT % 69 % (31-73); PLATELET COUNT 58 x10^3/uL (140-400); RED CELL DISTRIBUTION WIDTH 16.5 % (11.5-14.5)
[2017-03-14 21:14] LABS: CALCIUM 8.2 mg/dL (8.5-10.1); CREATININE 2.9 mg/dL (0.6-1.0); MAGNESIUM 1.8 mg/dL (1.8-2.4); POTASSIUM 3.8 mmol/L (3.5-5.1)
[2017-03-14 21:21] LABS: BILIRUBIN,URINE NEGATIVE (NEG); GLUCOSE,URINE >=1000 mg/dL (NEG); NITRITE,URINE NEGATIVE (NEG); PROTEIN,URINE 100 mg/dL (NEG-TRACE)
[2017-03-14 21:32] LABS: BACTERIA,URINE MODERATE /HPF (0-FEW); SQUAMOUS EPITHELIAL CELL,UR MANY /LPF
[2017-03-14] MEDS ORDERED: INSULIN ASPART 300 UNITS/3 ML INSULN.PEN SQ ONE ×2 (22:00→22:30)
--- NOTE | 2017-03-14 22:17 | RAD ---
Exam performed: CT scan of the head without contrast. Date of Service: 03/14/2017. Comparison CT head without contrast from 12/05/2016. Clinical History: Dizziness and syncope. Technique: Helical acquisitions are obtained from the foramen magnum to the vertex without intravenous administration of contrast. Findings: Prominence of cortical sulci and ventricular system is noted consistent with age-related atrophy. There are areas of low-attenuation in both periventricular and subcortical deep white matter suggesting small vessel ischemic changes. Normal billy-white differentiation is maintained. There is no extra axial fluid collection, intraparenchymal hemorrhage or mass lesion. The visualized portions of the orbits, paranasal sinuses and the mastoid air cells appear clear. The calvarium is intact. Impression: 1. No acute intracranial process detected. 2. Age-related atrophy and bilateral periventricular small vessel ischemic changes. RS Compliance Statement: One or more of the following individualized dose reduction techniques were utilized for this examination: 1. Automated exposure control 2. Adjustment of the mA and/or kV according to patient size 3. Use of iterative reconstruction technique Electronically signed by: Angie Llamas MD (03/14/2017 10:14 PM) [facility]
[2017-03-14] MEDS ORDERED: IV NORMAL SALINE 1000ML BAG 1,000 ML IV ONE (22:30)
[2017-03-14] MEDS ORDERED: hydrALAZINE 20 MG/ML VIAL. IVP ONE (22:30)
[2017-03-15] VITALS (20 sets, daily range): BP systolic 83–172; BP diastolic 34–86
[2017-03-15] MEDS ORDERED: hydrALAZINE 20 MG/ML VIAL. IVP PRN (00:15)
[2017-03-15] MEDS ORDERED: ONDANSETRON PF 4 MG/2 ML VIAL. IV PRN (00:15)
[2017-03-15] MEDS ORDERED: ASPIRIN CHEWABLE 81 MG TABLET. PO ONE (00:30)
[2017-03-15] MEDS ORDERED: DIPH25CA58 PO (01:48)
[2017-03-15] MEDS ORDERED: IPRA3AMP NEB (01:48)
[2017-03-15] MEDS ORDERED: LACT20SO PO (01:48)
[2017-03-15] MEDS ORDERED: CHOL500016 PO (01:48)
[2017-03-15] MEDS ORDERED: LEVO175T5 PO (01:48)
[2017-03-15] MEDS ORDERED: MULT-23 PO (01:48)
[2017-03-15] MEDS ORDERED: LOSA100T6 PO (01:48)
[2017-03-15] MEDS ORDERED: SERT50TA PO (01:49)
[2017-03-15] MEDS ORDERED: SEVE800T9 PO (01:49)
[2017-03-15] MEDS ORDERED: SODI650T PO (01:49)
[2017-03-15] MEDS ORDERED: GABA-585 PO (01:49)
[2017-03-15] MEDS ORDERED: ALPR0.5T6 PO (01:49)
[2017-03-15] MEDS ORDERED: CLON0.2T PO (01:49)
[2017-03-15] MEDS ORDERED: INSULIN ASPART 300 UNITS/3 ML INSULN.PEN SQ ONE (02:00)
--- NOTE | 2017-03-15 02:06 | ACF ---
Admission Forms Criteria SEIZURE Clinical Indications for Admission to Inpatient Care (Place 'X' for any and all applicable criteria): Admission is indicated for seizure and ANY ONE of the following(1)(2)(3)(4)(5): [X]I. Inpatient admission required rather than observation care (Also use Seizure: Observation Care Criteria as appropriate) because of ANY ONE of the following: [ ]a) Altered mental status that is severe or persistent [ ]b) New focal neurologic deficit that is severe or persistent [X]c) Metabolic disorder (eg, hypoglycemia, hyponatremia) that is severe or persistent [ ]d) Recurrent seizure [ ]e) Outpatient antiseizure regimen cannot be established (eg , patient cannot tolerate medication, initiation requires inpatient care) [ ]f) Need for ongoing intravenous infusion of antiseizure medication [ ]g) Cardiac arrhythmias of immediate concern [ ]h) Cerebral bleeding, hydrocephalus, or vasospasm monitoring (14) [ ]i) Increased intracranial pressure or cerebral edema monitoring (15) [ ]j) Other treatment or monitoring requiring inpatient admission [ ]II. Status epilepticus [A] or repetitive seizures not controlled with emergent treatment (6)(8) [ ]III. Brain disorder (eg, tumor, edema, and hydrocephalus) that requiring monitoring or intervention available only at inpatient level of care. [ ]IV. Brain insult (eg, severe trauma, stroke, drug toxicity, or withdrawal) that requires monitoring or intervention available only at inpatient level of care (10)(11) Extended stay beyond goal length of stay may be needed for (22) [ ]a) Complications of status epilepticus [ ]b) Refractory status epilepticus [ ]c) Etiology-specific therapy for conditions such as KAIAWHINA infection, head injury,eclampsia, severe metabolic abnormalities, and brain tumor [ ]d) Residual neurologic damage, [ ]e) Initiation of significant change to anticonvulsant treatment [ ]f) Older patients (65 years or older) [ ]g) Patient requiring intubation (eg, to protect airway) The original [employer] content created by [employer] has been revised. The portions of the content which have been revised are identified through the use of italic text or in bold, and [facility] has neither reviewed nor approved the modified material. All other unmodified content is copyright [facility] [employer]. Please see references footnoted in the original [facility] edition 2016 Admission Criteria Met?: Yes GURPREET SCHMIDT Mar 15, 2017 02:05
[2017-03-15] MEDS ORDERED: HYDROcodone/APAP 5/325MG 1 TAB TABLET PO PRN ×4 (05:15→08:15)
[2017-03-15] MEDS ORDERED: HYDR-2758 PO (05:44)
--- NOTE | 2017-03-15 07:35 | EKG ---
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
[2017-03-15 07:41] LABS: ALBUMIN 2.8 g/dL (3.4-5.0); ALBUMIN/GLOBULIN RATIO 0.8 (1.0-1.7); CALCIUM 7.4 mg/dL (8.5-10.1); CREATININE 2.8 mg/dL (0.6-1.0); GFR 16.7; POTASSIUM 3.1 mmol/L (3.5-5.1); TOTAL BILIRUBIN 1.4 mg/dL (0.2-1.0); TOTAL PROTEIN 6.3 g/dL (6.4-8.2)
[2017-03-15 07:51] LABS: BASO % 1 % (0-3); EOS % 5 % (0-3); HEMATOCRIT 31.2 % (36.0-47.0); HEMOGLOBIN 10.8 g/dL (12.0-15.5); LYMPH # 0.4 x10^3/uL (1.0-4.8); LYMPH % 11 % (24-48); MEAN CORPUSCULAR HEMOGLOBIN 31 pg (25-35); MEAN CORPUSCULAR HGB CONC 35 g/dL (31-37); MEAN CORPUSCULAR VOLUME 88 fL (79-100); MONO % 10 % (0-9); NEUT % 73 % (31-73); PLATELET COUNT 65 x10^3/uL (140-400); RED BLOOD COUNT 3.55 x10^6/uL (3.50-5.40); RED CELL DISTRIBUTION WIDTH 16.5 % (11.5-14.5); WHITE BLOOD COUNT 3.7 x10^3/uL (4.0-11.0)
[2017-03-15] MEDS ORDERED: DEXTROSE 50% 25 GM / 50ML DISP.SYRIN. IV PRN (08:15)
[2017-03-15] MEDS ORDERED: ONDANSETRON ODT 4 MG TAB.RAPDIS. PO PRN (08:30)
--- NOTE | 2017-03-15 08:36 | RAD ---
Indication CVA. Facial numbness. Protocol study. A single view of the chest was obtained and is compared to an examination 12/05/2016. There is unchanged mild cardiomegaly. There is no gross congestive heart failure. A consolidated pneumonia is not seen. No large pleural fluid collection is seen. There is no evidence of pneumothorax. IMPRESSION: Stable mild cardiomegaly. No acute or focal process seen in the chest
[2017-03-15] MEDS ORDERED: ALPRAZolam 0.5 MG TABLET PO SCH (09:00)
[2017-03-15] MEDS: FAMOTIDINE 20 MG TABLET. PO SCH (09:10)
[2017-03-15] MEDS: SEVELAMER CARBONATE 800 MG TABLET. PO SCH ×3 (09:10→17:34)
[2017-03-15] MEDS: GABAPENTIN 100 MG CAPSULE. PO SCH (09:10)
[2017-03-15] MEDS: rifAXIMin 550 MG TABLET PO SCH ×2 (09:10→22:02)
[2017-03-15] MEDS: cloNIDine HCL 0.2 MG TABLET PO SCH (09:10)
[2017-03-15] MEDS: ISOSORBIDE MONONITRATE ER 30 MG TAB.ER.24H PO SCH (09:10)
[2017-03-15] MEDS: METOPROLOL SUCC 24HR ER 25 MG TAB.ER.24H. PO SCH (09:11)
[2017-03-15] MEDS: SERTRALINE 50 MG TABLET. PO SCH (09:11)
[2017-03-15] MEDS: LOSARTAN POTASSIUM 50 MG TABLET. PO SCH (09:11)
[2017-03-15] MEDS: INSULIN ASPART 300 UNITS/3 ML INSULN.PEN SQ SCH ×6 (09:12→17:35)
--- NOTE | 2017-03-15 11:08 | PDOC2 ---
CONSULT Date of Consult Date of Consult DATE: 03/15/17 TIME: 11:00 Reason for Consult Reason for Consult: ESRD Referring Physician Referring Physician: Dr Cuellar Identification/Chief Complaint Chief Complaint ?subj Sz Problems: Source Source: Chart review, Patient History of Present Illness Reason for Visit: as dictated Past Medical History Cardiovascular: CHF, HTN, Hyperlipidemia, Other Pulmonary: No pertinent hx, Other CENTRAL NERVOUS SYSTEM: CVA, Periperal neuropathy GI: GERD, Other Heme/Onc: Other Hepatobiliary: Cirrhosis Psych: Anxiety, Depression Musculoskeletal: Osteoarthritis, Other Rheumatologic: No pertinent hx Infectious disease: No pertinent hx Renal/: Chronic renal failure Endocrine: Diabetes, Hyperparathyroidism Past Surgical History Past Surgical History: Hysterectomy, Other Family History Family History: No Significant, Hypertension, Other Social History ALCOHOL: none Drugs: None Lives: with Family Current Problem List Problem List Problems Medical Problems: (1) Seizure Status: Acute Current Medications Current Medications Current Medications Sodium Chloride 1,000 ml @ 1,000 mls/hr 1X ONCE IV Last administered on 22:23; Start 03/14/17 at 22:30; Stop 03/14/17 at 23:29; Status DC Hydralazine HCl (Apresoline) 10 mg 1X ONCE IVP Last administered on 03/14/17 22:25; Start 03/14/17 at 22:30; Stop 03/14/17 at 22:31; Status DC Insulin Aspart (NovoLOG) 30 units 1X ONCE SQ ; Start 03/14/17 at 22:00; Stop at 22:01; Status UNV Insulin Aspart (NovoLOG) 20 units 1X ONCE SQ Last administered on 03/14/17 22 :31; Start 03/14/17 at 22:30; Stop 03/14/17 at 22:31; Status DC Lorazepam (Ativan) 2 mg STK-MED ONCE .ROUTE ; Start 03/14/17 at 22:32; Stop at 22:33; Status DC Lorazepam (Ativan) 1 mg 1X ONCE IV Last administered on 03/14/17 22:36; Start 03/14/17 at 23:00; Stop 03/14/17 at 23:01; Status DC Ondansetron HCl (Zofran) 4 mg PRN Q8HRS PRN IV NAUSEA/VOMITING Last administered on 03/15/17 05:17; Start 03/15/17 at 00:15; Stop 03/16/17 at 00:14 Lorazepam (Ativan) 1 mg 1X PRN PRN IV seizure; Start 03/15/17 at 00:15 Hydralazine HCl (Apresoline) 10 mg PRN Q4HRS PRN IVP ELEVATED BP, SEE COMMENTS ; Start 03/15/17 at 00:15 Aspirin (Children'S Aspirin) 162 mg 1X ONCE PO ; Start 03/15/17 at 00:30; Stop 03/15/17 at 00:31; Status DC Insulin Aspart (NovoLOG) 30 units 1X ONCE SQ Last administered on 03/15/17 02 :37; Start 03/15/17 at 02:00; Stop 03/15/17 at 02:01; Status DC Acetaminophen/ Hydrocodone Bitart (Lortab 5/325) 1 tab PRN Q6HRS PRN PO MODERATE PAIN; Start 03/15/17 at 05:15 Acetaminophen/ Hydrocodone Bitart (Lortab 5/325) 2 tab PRN Q6HRS PRN PO SEVERE PAIN Last administered on 03/15/17 05:40; Start 03/15/17 at 05:15 Alprazolam (Xanax) 0.5 mg DAILY PO Last administered on 03/15/17 09:11; Start 03/15/17 at 09:00 Clonidine HCl (Catapres) 0.2 mg DAILY PO Last administered on 03/15/17 09:10; Start 03/15/17 at 09:00 Famotidine (Pepcid) 20 mg DAILY PO Last administered on 03/15/17 09:10; Start 03/15/17 at 09:00 Gabapentin (Neurontin) 100 mg DAILY PO Last administered on 03/15/17 09:10; Start 03/15/17 at 09:00 Acetaminophen/ Hydrocodone Bitart (Lortab 5/325) 1 tab PRN Q6HRS PRN PO PAIN; Start 03/15/17 at 08:15; Stop 03/15/17 at 08:26; Status DC Acetaminophen/ Hydrocodone Bitart (Lortab 5/325) 2 tab PRN Q6HRS PRN PO PAIN; Start 03/15/17 at 08:15; Stop 03/15/17 at 08:26; Status DC Albuterol/ Ipratropium (Duoneb) 3 ml QID NEB ; Start 03/15/17 at 09:00 Levothyroxine Sodium (Synthroid) 175 mcg DAILYAC PO ; Start 03/16/17 at 07:30 Metoprolol Succinate (Toprol Xl) 25 mg DAILY PO Last administered on 03/15/17 09:11; Start 03/15/17 at 09:00 Rifaximin (Xifaxan) 550 mg BID PO Last administered on 03/15/17 09:10; Start 03/15/17 at 09:00 Sertraline HCl (Zoloft) 50 mg DAILY PO Last administered on 03/15/17 09:11; Start 03/15/17 at 09:00 Sevelamer Carbonate (Renvela) 800 mg TIDWMEALS PO Last administered on 09:10; Start 03/15/17 at 09:00 Sodium Bicarbonate (Sodium Bicarbonate) 1,300 mg 3X/WEEK PO ; Start 03/17/17 at 09:00 Zolpidem Tartrate (Ambien) 5 mg PRN QHS PRN PO INSOMNIA; Start 03/15/17 at 08: 15 Ergocalciferol (Vitamin D2) 50,000 unit WEEKLY PO ; Start 03/22/17 at 09:00 Insulin Detemir (Levemir) 50 units QHS SQ ; Start 03/15/17 at 21:00 Isosorbide Mononitrate (Imdur) 30 mg DAILY PO Last administered on 03/15/17 09 :10; Start 03/15/17 at 09:00 Losartan Potassium (Cozaar) 100 mg DAILY PO Last administered on 03/15/17 09: 11; Start 03/15/17 at 09:00 Ondansetron HCl (Zofran Odt) 4 mg PRN Q6HRS PRN PO NAUSEA/VOMITING; Start 03/15 at 08:30 Insulin Aspart (NovoLOG) 0-9 UNITS TIDWMEALS SQ Last administered on 03/15/17 09:12; Start 03/15/17 at 09:03 Dextrose (Dextrose 50%-Water Syringe) 12.5 gm PRN Q15MIN PRN IV SEE COMMENTS; Start 7/22/17 at 08:15 Insulin Aspart (NovoLOG) 15 units TIDAC SQ ; Start 03/15/17 at 11:30; Stop 03/15 at 11:30; Status DC Insulin Aspart (NovoLOG) 20 units TIDAC SQ Last administered on 03/15/17t 09:13 ; Start 03/15/17 at 09:04 Active Scripts Active Hydrocodone-Apap 5-325 (Hydrocodone Bit/Acetaminophen) 1 Each Tablet 1 Tab PO PRN Q6HRS PRN Reported Hydrocodone-Apap 5-325 (Hydrocodone Bit/Acetaminophen) 1 Each Tablet 2 Tab PO PRN Q6HRS PRN Alprazolam 0.5 Mg Tablet 1 Tab PO DAILY Clonidine Hcl 0.2 Mg Tablet 0.2 Mg PO DAILY Gabapentin 100 Mg Capsule 100 Mg PO DAILY Sodium Bicarbonate 650 Mg Tablet 1,300 Mg PO 3X/WEEK Zoloft (Sertraline Hcl) 50 Mg Tablet 50 Mg PO DAILY Renvela (Sevelamer Carbonate) 800 Mg Tablet 1 Tab PO TIDWMEALS Losartan Potassium 100 Mg Tablet 100 Mg PO DAILY Levothyroxine Sodium 175 Mcg Tablet 175 Mcg PO DAILYAC Lactulose 20 Gm/30 Ml Solution 10 Gm PO PRN BID Dialyvite [place] D Tablet (Multivitamin, Min Cmb#25/Fa/D3) 1 Each Tablet 1 Each PO DAILY Vitamin D3 (Cholecalciferol (Vitamin D3)) 5,000 Unit Tablet 50,000 Unit PO WEEKLY Benadryl (Diphenhydramine Hcl) 25 Mg Capsule 1 Cap PO QHS PRN Duoneb 0.5-3(2.5) Mg/3 Ml (Albuterol/Ipratropium) 3 Ml Ampul.neb 3 Ml NEB QID Metoprolol Succinate ( Xl ) (Metoprolol Succinate) 25 Mg Tab.er.24h 25 Mg PO DAILY Lantus Solostar (Insulin Glargine,Hum.rec.anlog) 100 Unit/1 Ml Insuln.pen 50 Unit SQ QHS Humalog Kwikpen (Insulin Lispro) 200 Unit/1 Ml Insuln.pen 20-30 Unit SQ TID Ondansetron Hcl 4 Mg Tablet 4 Mg PO Q6HRS PRN Zolpidem Tartrate 5 Mg Tablet 5 Mg PO PRN QHS PRN Famotidine 20 Mg Tablet 20 Mg PO DAILY Voltaren (Diclofenac Sodium) 100 Gm Gel..gram. 1 Gm TP TID Xifaxan (Rifaximin) 550 Mg Tablet 1 Tab PO BID Isosorbide Dinitrate 30 Mg Tablet 1 Tab PO DAILY Allergies Allergies: Coded Allergies: adhesive (Verified Allergy, Intermediate, Rash, 04/09/16) TAPE ROS Review of System GEN: no Fevers no Chills EYES: no new Visual Complaints ENT: no EN Drainage no Hearing deficiets CVS: no Orthopnea no CP RESP: no SOB no BROOKE GI: + Nausea + Vomiting : no Dysuria no Urgency HEME: no easy bruising no Palp Ly Nodes NEURO no Focal Weakness + subj Sz PSYCH: no Suicidal Ideation no Depression SKIN: no Rashes ENDO: no Polyuria or Polydipsia no Hot/Cold Intolerance MU SK: no Arthraigia no Myalgia Physical Exam Physical Exam General Appearance: Awake Alert Oriented x 3 In no Distress Eyes: VIsion Unchanged Conjunctiva Normal EN: No EN Drainage Mucous Memb. dryish Neck: no JVD min JVP Supple no Thyromegaly CVS: S1 S2 ? Murmur No Gallop No Rub Ch brawny Edema Resp: no Rales no Rhonchi no Acc. Muscle use GI: BAS +ve NO Bruit Non Tender somewhat Distended : no CVA tenderness; no Suprapubic Tenderness SKIN: no Rashes Breast Exam deferred Mu.Sk: Adequate ROM no Muscle Atrophy Heme: Unable to palpate Obvious LAD no palp Splenomegaly NEURO: Good Strength and Tone Cranial Nerves II - XII grossly intact Psych: somewhat Depressed appearing no Active hallucination Vital Signs Vital Signs Date Time Temp Pulse Resp B/P (MAP) Pulse Ox O2 Delivery O2 Flow Rate FiO2 03/15/17 09:11 73 165/60 03/15/17 06:45 20 99 Nasal Cannula 2.0 03/15/17 04:00 98.3 98.3 Assessment & Plan ESRD: Dialysis as below F 180 NR 3.5 Hrs 4 K 2.5 Ca 140 Na 35 HC03 Qb 350 + Qd 500+ Heparin 0 Units Uf to dry weight as tolerated May give 25-50 gms of 25% Albumin if needed to maintain Hemodynamic stability Treatment plan reviewed and discussed with feather maker Anemia: Epogen Transfuse with next HD as needed. HTN: Current BP meds reviewed. See orders for changes. Bone & Mineral: follow phos and alter binder regimen as needed based on PO intake and trend HypoKalemia - Correct iwth HD Discussed Plan of Care and prognosis etc. at length with pt and RN Labs Labs Laboratory Tests Test 03/14/17 20:40 03/14/17 21:13 03/14/17 23:30 03/15/17 06:30 White Blood Count 3.0 x10^3/uL (4.0-11.0) 3.7 x10^3/uL (4.0-11.0) Red Blood Count 3.60 x10^6/uL (3.50-5.40) 3.55 x10^6/uL (3.50-5.40) Hemoglobin 10.7 g/dL (12.0-15.5) 10.8 g/dL (12.0-15.5) Hematocrit 32.6 % (36.0-47.0) 31.2 % (36.0-47.0) Mean Corpuscular Volume 91 fL (79-100) 88 fL (79-100) Mean Corpuscular Hemoglobin 30 pg (25-35) 31 pg (25-35) Mean Corpuscular Hemoglobin Concent 33 g/dL (31-37) 35 g/dL (31-37) Red Cell Distribution Width 16.5 % (11.5-14.5) 16.5 % (11.5-14.5) Platelet Count 58 x10^3/uL (140-400) 65 x10^3/uL (140-400) Neutrophils (%) (Auto) 69 % (31-73) 73 % (31-73) Lymphocytes (%) (Auto) 16 % (24-48) 11 % (24-48) Monocytes (%) (Auto) 9 % (0-9) 10 % (0-9) Eosinophils (%) (Auto) 5 % (0-3) 5 % (0-3) Basophils (%) (Auto) 1 % (0-3) 1 % (0-3) Neutrophils # (Auto) 2.1 x10^3uL (1.8-7.7) 2.7 x10^3uL (1.8-7.7) Lymphocytes # (Auto) 0.5 x10^3/uL (1.0-4.8) 0.4 x10^3/uL (1.0-4.8) Monocytes # (Auto) 0.3 x10^3/uL (0.0-1.1) 0.4 x10^3/uL (0.0-1.1) Eosinophils # (Auto) 0.1 x10^3/uL (0.0-0.7) 0.2 x10^3/uL (0.0-0.7) Basophils # (Auto) 0.0 x10^3/uL (0.0-0.2) 0.0 x10^3/uL (0.0-0.2) Sodium Level 134 mmol/L (136-145) 141 mmol/L (136-145) Potassium Level 3.8 mmol/L (3.5-5.1) 3.1 mmol/L (3.5-5.1) Chloride Level 96 mmol/L (98-107) 103 mmol/L (98-107) Carbon Dioxide Level 28 mmol/L (21-32) 30 mmol/L (21-32) Anion Gap 10 (6-14) 8 (6-14) Blood Urea Nitrogen 24 mg/dL (7-20) 26 mg/dL (7-20) Creatinine 2.9 mg/dL (0.6-1.0) 2.8 mg/dL (0.6-1.0) Estimated GFR (Cockcroft-Gault) 16.0 16.7 Glucose Level 747 mg/dL (70-99) 671 mg/dL (70-99) 214 mg/dL (70-99) Calcium Level 8.2 mg/dL (8.5-10.1) 7.4 mg/dL (8.5-10.1) Magnesium Level 1.8 mg/dL (1.8-2.4) Creatine Kinase 101 U/L (26-192) Creatine Kinase MB (Mass) 2.0 ng/mL (0.0-3.6) Creatine Kinase MB Relative Index 2.0 % (0-4) Troponin I Quantitative < 0.017 ng/mL (0.000-0.055) LR-Xvj-S-Type Natriuretic Peptide 4352 pg/mL (0-124) Lipase 123 U/L (73-393) Thyroid Stimulating Hormone (TSH) 6.892 uIU/mL (0.358-3.74) Urine Collection Type Unknown Urine Color Yellow Urine Clarity Clear Urine pH 5.0 Urine Specific [place] 1.025 Urine Protein 100 mg/dL (NEG-TRACE) Urine Glucose (UA) >=1000 mg/dL (NEG) Urine Ketones (Stick) Negative mg/dL (NEG) Urine Blood Large (NEG) Urine Nitrite Negative (NEG) Urine Bilirubin Negative (NEG) Urine Urobilinogen Dipstick 1.0 mg/dL (0.2 mg/dL) Urine Leukocyte Esterase Small (NEG) Urine RBC 11-20 /HPF (0-2) Urine WBC 5-10 /HPF (0-4) Urine Squamous Epithelial Cells Many /LPF Urine Bacteria Moderate /HPF (0-FEW) BUN/Creatinine Ratio 9 (6-20) Total Bilirubin 1.4 mg/dL (0.2-1.0) Aspartate Amino Transf (AST/SGOT) 17 U/L (15-37) Alanine Aminotransferase (ALT/SGPT) 22 U/L (14-59) Alkaline Phosphatase 203 U/L (46-116) Total Protein 6.3 g/dL (6.4-8.2) Albumin 2.8 g/dL (3.4-5.0) Albumin/Globulin Ratio 0.8 (1.0-1.7) Test 03/15/17 06:33 03/15/17 10:25 Troponin I Quantitative 0.022 ng/mL (0.000-0.055) Glucose (Fingerstick) 194 mg/dL (70-99) Laboratory Tests Test 03/14/17 20:40 03/14/17 21:13 03/14/17 23:30 03/15/17 06:30 White Blood Count 3.0 x10^3/uL (4.0-11.0) 3.7 x10^3/uL (4.0-11.0) Red Blood Count 3.60 x10^6/uL (3.50-5.40) 3.55 x10^6/uL (3.50-5.40) Hemoglobin 10.7 g/dL (12.0-15.5) 10.8 g/dL (12.0-15.5) Hematocrit 32.6 % (36.0-47.0) 31.2 % (36.0-47.0) Mean Corpuscular Volume 91 fL (79-100) 88 fL (79-100) Mean Corpuscular Hemoglobin 30 pg (25-35) 31 pg (25-35) Mean Corpuscular Hemoglobin Concent 33 g/dL (31-37) 35 g/dL (31-37) Red Cell Distribution Width 16.5 % (11.5-14.5) 16.5 % (11.5-14.5) Platelet Count 58 x10^3/uL (140-400) 65 x10^3/uL (140-400) Neutrophils (%) (Auto) 69 % (31-73) 73 % (31-73) Lymphocytes (%) (Auto) 16 % (24-48) 11 % (24-48) Monocytes (%) (Auto) 9 % (0-9) 10 % (0-9) Eosinophils (%) (Auto) 5 % (0-3) 5 % (0-3) Basophils (%) (Auto) 1 % (0-3) 1 % (0-3) Neutrophils # (Auto) 2.1 x10^3uL (1.8-7.7) 2.7 x10^3uL (1.8-7.7) Lymphocytes # (Auto) 0.5 x10^3/uL (1.0-4.8) 0.4 x10^3/uL (1.0-4.8) Monocytes # (Auto) 0.3 x10^3/uL (0.0-1.1) 0.4 x10^3/uL (0.0-1.1) Eosinophils # (Auto) 0.1 x10^3/uL (0.0-0.7) 0.2 x10^3/uL (0.0-0.7) Basophils # (Auto) 0.0 x10^3/uL (0.0-0.2) 0.0 x10^3/uL (0.0-0.2) Sodium Level 134 mmol/L (136-145) 141 mmol/L (136-145) Potassium Level 3.8 mmol/L (3.5-5.1) 3.1 mmol/L (3.5-5.1) Chloride Level 96 mmol/L (98-107) 103 mmol/L (98-107) Carbon Dioxide Level 28 mmol/L (21-32) 30 mmol/L (21-32) Anion Gap 10 (6-14) 8 (6-14) Blood Urea Nitrogen 24 mg/dL (7-20) 26 mg/dL (7-20) Creatinine 2.9 mg/dL (0.6-1.0) 2.8 mg/dL (0.6-1.0) Estimated GFR (Cockcroft-Gault) 16.0 16.7 Glucose Level 747 mg/dL (70-99) 671 mg/dL (70-99) 214 mg/dL (70-99) Calcium Level 8.2 mg/dL (8.5-10.1) 7.4 mg/dL (8.5-10.1) Magnesium Level 1.8 mg/dL (1.8-2.4) Creatine Kinase 101 U/L (26-192) Creatine Kinase MB (Mass) 2.0 ng/mL (0.0-3.6) Creatine Kinase MB Relative Index 2.0 % (0-4) Troponin I Quantitative < 0.017 ng/mL (0.000-0.055) SP-Tve-G-Type Natriuretic Peptide 4352 pg/mL (0-124) Lipase 123 U/L (73-393) Thyroid Stimulating Hormone (TSH) 6.892 uIU/mL (0.358-3.74) Urine Collection Type Unknown Urine Color Yellow Urine Clarity Clear Urine pH 5.0 Urine Specific [place] 1.025 Urine Protein 100 mg/dL (NEG-TRACE) Urine Glucose (UA) >=1000 mg/dL (NEG) Urine Ketones (Stick) Negative mg/dL (NEG) Urine Blood Large (NEG) Urine Nitrite Negative (NEG) Urine Bilirubin Negative (NEG) Urine Urobilinogen Dipstick 1.0 mg/dL (0.2 mg/dL) Urine Leukocyte Esterase Small (NEG) Urine RBC 11-20 /HPF (0-2) Urine WBC 5-10 /HPF (0-4) Urine Squamous Epithelial Cells Many /LPF Urine Bacteria Moderate /HPF (0-FEW) BUN/Creatinine Ratio 9 (6-20) Total Bilirubin 1.4 mg/dL (0.2-1.0) Aspartate Amino Transf (AST/SGOT) 17 U/L (15-37) Alanine Aminotransferase (ALT/SGPT) 22 U/L (14-59) Alkaline Phosphatase 203 U/L (46-116) Total Protein 6.3 g/dL (6.4-8.2) Albumin 2.8 g/dL (3.4-5.0) Albumin/Globulin Ratio 0.8 (1.0-1.7) Test 03/15/17 06:33 03/15/17 10:25 Troponin I Quantitative 0.022 ng/mL (0.000-0.055) Glucose (Fingerstick) 194 mg/dL (70-99) RALPH ALONZO MD Mar 15, 2017 11:08
[2017-03-15] MEDS ORDERED: IV NORMAL SALINE 1000ML BAG 1,000 ML IV PRN (11:23)
[2017-03-15] MEDS ORDERED: DIALYSIS PATIENT. MC PRN (11:30)
[2017-03-15] MEDS ORDERED: INSULIN ASPART 300 UNITS/3 ML INSULN.PEN SQ SCH (11:30)
[2017-03-15] MEDS ORDERED: ALBUMIN HUMAN 25% 200 ML IV PRN (11:30)
[2017-03-15] MEDS ORDERED: LIDOCAINE 1% PF 2 ML VIAL. INJ STA (12:25)
[2017-03-15] MEDS: IPRATRPIUM/ALBUTEROL 0.5/2.5MG 3 ML NEBU. NEB SCH ×3 (12:58→19:50)
--- NOTE | 2017-03-15 13:25 | PDOC1 ---
History and Physical Past Medical History Cardiovascular: CHF, HTN, Hyperlipidemia, Other Pulmonary: No pertinent hx, Other CENTRAL NERVOUS SYSTEM: CVA, Periperal neuropathy GI: GERD, Other Heme/Onc: Other Hepatobiliary: Cirrhosis Psych: Anxiety, Depression Rheumatologic: No pertinent hx Infectious disease: No pertinent hx Renal/: Chronic renal failure Endocrine: Diabetes, Hyperparathyroidism Past Surgical History Past Surgical History: Hysterectomy, Other Family History Family History: No Significant, Hypertension, Other Social History ALCOHOL: none Drugs: None Current Problem List Problem List Problems Medical Problems: (1) Seizure Status: Acute Current Medications Current Medications Current Medications Medications (Trade) Dose Ordered Sig/Vijay Start Time Stop Time Status Last Admin Dose Admin Acetaminophen/ Hydrocodone Bitart (Lortab 5/325) 2 tab PRN Q6HRS PRN 03/15/17 08:15 03/15/17 08:26 DC Albumin Human 200 ml @ 200 mls/hr 1X PRN PRN 03/15/17 11:30 03/15/17 17:29 Albuterol/ Ipratropium (Duoneb) 3 ml QID 03/15/17 09:00 03/15/17 12:58 3 ML Alprazolam (Xanax) 0.5 mg DAILY 03/15/17 09:00 03/15/17 09:11 0.5 MG Aspirin (Children'S Aspirin) 162 mg 1X ONCE 03/15/17 00:30 03/15/17 00:31 DC Clonidine HCl (Catapres) 0.2 mg DAILY 03/15/17 09:00 03/15/17 09:10 0.2 MG Dextrose (Dextrose 50%-Water Syringe) 12.5 gm PRN Q15MIN PRN 03/15/17 08:15 Ergocalciferol (Vitamin D2) 50,000 unit WEEKLY 03/22/17 09:00 Famotidine (Pepcid) 20 mg DAILY 03/15/17 09:00 03/15/17 09:10 20 MG Gabapentin (Neurontin) 100 mg DAILY 03/15/17 09:00 03/15/17 09:10 100 MG Hydralazine HCl (Apresoline) 10 mg PRN Q4HRS PRN 03/15/17 00:15 Info (PHARMACY MONITORING -- do not chart) 1 each PRN DAILY PRN 03/15/17 11:30 Insulin Aspart (NovoLOG) 20 units TIDAC 03/15/17 09:04 03/15/17 09:13 20 UNITS Insulin Detemir (Levemir) 50 units QHS 03/15/17 21:00 Isosorbide Mononitrate (Imdur) 30 mg DAILY 03/15/17 09:00 03/15/17 09:10 30 MG Levothyroxine Sodium (Synthroid) 175 mcg DAILYAC 03/16/17 07:30 Lidocaine HCl (Xylocaine-Mpf 1% Vial) 2 ml 1X STAT 03/15/17 12:25 03/15/17 12:27 DC Lorazepam (Ativan) 1 mg 1X PRN PRN 03/15/17 00:15 Losartan Potassium (Cozaar) 100 mg DAILY 03/15/17 09:00 03/15/17 09:11 100 MG Metoprolol Succinate (Toprol Xl) 25 mg DAILY 03/15/17 09:00 03/15/17 09:11 25 MG Ondansetron HCl (Zofran Odt) 4 mg PRN Q6HRS PRN 03/15/17 08:30 Ondansetron HCl (Zofran) 4 mg PRN Q8HRS PRN 03/15/17 00:15 03/16/17 00:14 03/15/17 05:17 4 MG Rifaximin (Xifaxan) 550 mg BID 03/15/17 09:00 03/15/17 09:10 550 MG Sertraline HCl (Zoloft) 50 mg DAILY 03/15/17 09:00 03/15/17 09:11 50 MG Sevelamer Carbonate (Renvela) 800 mg TIDWMEALS 03/15/17 09:00 03/15/17 09:10 800 MG Sodium Bicarbonate (Sodium Bicarbonate) 1,300 mg 3X/WEEK 03/17/17 09:00 Sodium Chloride 1,000 ml @ 1,000 mls/hr Q1H PRN 03/15/17 11:23 03/15/17 17:22 Zolpidem Tartrate (Ambien) 5 mg PRN QHS PRN 03/15/17 08:15 Allergies Allergies Allergies Coded Allergies Type Severity Reaction Last Updated Verified adhesive Allergy Intermediate Rash 04/09/16 Yes ROS Review of System CONSTITUTIONAL: No fever or chills, seizure-like activity EYES: No recent changes SKIN: No rash or itching CARDIOVASCULAR: No chest pain, syncope, palpitations, or edema RESPIRATORY: No SOB or cough GASTROINTESTINAL: No nausea, vomiting or abdominal pain NEUROLOGICAL: No headaches or weakness ENDOCRINE: No cold or heat intolerance GENITOURINARY: No urgency or frequency of urination MUSCULOSKELETAL: No back pain or joint pain LYMPHATICS: No enlarged lymph nodes PSYCHIATRIC: No anxiety or depression Physical Exam Physical Exam GEN.: No apparent distress. Alert and oriented. 3 HEENT: Head is normocephalic, atraumatic NECK: Supple. No JVD LUNGS: Clear to auscultation. Normal anterior airflow HEART: RRR, S1, S2 present. Peripheral pulses intact ABDOMEN: Soft, nontender. Positive bowel sounds. Distended with ventral hernia/umbilical hernia EXTREMITIES: Edema in bilateral lower extremities with bruising in the left lower extremity around the area, with redness in bilateral lower extremity with chronic changes NEUROLOGIC: Normal speech, normal tone PSYCHIATRIC: Normal affect, normal mood. SKIN: No visible cyanosis Vitals Vitals Vital Signs Date Time Temp Pulse Resp B/P (MAP) Pulse Ox O2 Delivery O2 Flow Rate FiO2 03/15/17 13:02 98 Nasal Cannula 2.0 03/15/17 09:11 73 165/60 03/15/17 06:45 20 03/15/17 04:00 98.3 98.3 Labs Labs Laboratory Tests Test 03/14/17 20:40 03/14/17 21:13 03/14/17 23:30 03/15/17 06:30 White Blood Count 3.0 x10^3/uL (4.0-11.0) 3.7 x10^3/uL (4.0-11.0) Red Blood Count 3.60 x10^6/uL (3.50-5.40) 3.55 x10^6/uL (3.50-5.40) Hemoglobin 10.7 g/dL (12.0-15.5) 10.8 g/dL (12.0-15.5) Hematocrit 32.6 % (36.0-47.0) 31.2 % (36.0-47.0) Mean Corpuscular Volume 91 fL (79-100) 88 fL (79-100) Mean Corpuscular Hemoglobin 30 pg (25-35) 31 pg (25-35) Mean Corpuscular Hemoglobin Concent 33 g/dL (31-37) 35 g/dL (31-37) Red Cell Distribution Width 16.5 % (11.5-14.5) 16.5 % (11.5-14.5) Platelet Count 58 x10^3/uL (140-400) 65 x10^3/uL (140-400) Neutrophils (%) (Auto) 69 % (31-73) 73 % (31-73) Lymphocytes (%) (Auto) 16 % (24-48) 11 % (24-48) Monocytes (%) (Auto) 9 % (0-9) 10 % (0-9) Eosinophils (%) (Auto) 5 % (0-3) 5 % (0-3) Basophils (%) (Auto) 1 % (0-3) 1 % (0-3) Neutrophils # (Auto) 2.1 x10^3uL (1.8-7.7) 2.7 x10^3uL (1.8-7.7) Lymphocytes # (Auto) 0.5 x10^3/uL (1.0-4.8) 0.4 x10^3/uL (1.0-4.8) Monocytes # (Auto) 0.3 x10^3/uL (0.0-1.1) 0.4 x10^3/uL (0.0-1.1) Eosinophils # (Auto) 0.1 x10^3/uL (0.0-0.7) 0.2 x10^3/uL (0.0-0.7) Basophils # (Auto) 0.0 x10^3/uL (0.0-0.2) 0.0 x10^3/uL (0.0-0.2) Sodium Level 134 mmol/L (136-145) 141 mmol/L (136-145) Potassium Level 3.8 mmol/L (3.5-5.1) 3.1 mmol/L (3.5-5.1) Chloride Level 96 mmol/L (98-107) 103 mmol/L (98-107) Carbon Dioxide Level 28 mmol/L (21-32) 30 mmol/L (21-32) Anion Gap 10 (6-14) 8 (6-14) Blood Urea Nitrogen 24 mg/dL (7-20) 26 mg/dL (7-20) Creatinine 2.9 mg/dL (0.6-1.0) 2.8 mg/dL (0.6-1.0) Estimated GFR (Cockcroft-Gault) 16.0 16.7 Glucose Level 747 mg/dL (70-99) 671 mg/dL (70-99) 214 mg/dL (70-99) Calcium Level 8.2 mg/dL (8.5-10.1) 7.4 mg/dL (8.5-10.1) Magnesium Level 1.8 mg/dL (1.8-2.4) Creatine Kinase 101 U/L (26-192) Creatine Kinase MB (Mass) 2.0 ng/mL (0.0-3.6) Creatine Kinase MB Relative Index 2.0 % (0-4) Troponin I Quantitative < 0.017 ng/mL (0.000-0.055) [id number]-Type Natriuretic Peptide 4352 pg/mL (0-124) Lipase 123 U/L (73-393) Thyroid Stimulating Hormone (TSH) 6.892 uIU/mL (0.358-3.74) Urine Collection Type Unknown Urine Color Yellow Urine Clarity Clear Urine pH 5.0 Urine Specific [place] 1.025 Urine Protein 100 mg/dL (NEG-TRACE) Urine Glucose (UA) >=1000 mg/dL (NEG) Urine Ketones (Stick) Negative mg/dL (NEG) Urine Blood Large (NEG) Urine Nitrite Negative (NEG) Urine Bilirubin Negative (NEG) Urine Urobilinogen Dipstick 1.0 mg/dL (0.2 mg/dL) Urine Leukocyte Esterase Small (NEG) Urine RBC 11-20 /HPF (0-2) Urine WBC 5-10 /HPF (0-4) Urine Squamous Epithelial Cells Many /LPF Urine Bacteria Moderate /HPF (0-FEW) BUN/Creatinine Ratio 9 (6-20) Total Bilirubin 1.4 mg/dL (0.2-1.0) Aspartate Amino Transf (AST/SGOT) 17 U/L (15-37) Alanine Aminotransferase (ALT/SGPT) 22 U/L (14-59) Alkaline Phosphatase 203 U/L (46-116) Total Protein 6.3 g/dL (6.4-8.2) Albumin 2.8 g/dL (3.4-5.0) Albumin/Globulin Ratio 0.8 (1.0-1.7) Test 03/15/17 06:33 03/15/17 10:25 Troponin I Quantitative 0.022 ng/mL (0.000-0.055) Glucose (Fingerstick) 194 mg/dL (70-99) Laboratory Tests Test 03/14/17 20:40 03/14/17 21:13 03/14/17 23:30 03/15/17 06:30 White Blood Count 3.0 x10^3/uL (4.0-11.0) 3.7 x10^3/uL (4.0-11.0) Red Blood Count 3.60 x10^6/uL (3.50-5.40) 3.55 x10^6/uL (3.50-5.40) Hemoglobin 10.7 g/dL (12.0-15.5) 10.8 g/dL (12.0-15.5) Hematocrit 32.6 % (36.0-47.0) 31.2 % (36.0-47.0) Mean Corpuscular Volume 91 fL (79-100) 88 fL (79-100) Mean Corpuscular Hemoglobin 30 pg (25-35) 31 pg (25-35) Mean Corpuscular Hemoglobin Concent 33 g/dL (31-37) 35 g/dL (31-37) Red Cell Distribution Width 16.5 % (11.5-14.5) 16.5 % (11.5-14.5) Platelet Count 58 x10^3/uL (140-400) 65 x10^3/uL (140-400) Neutrophils (%) (Auto) 69 % (31-73) 73 % (31-73) Lymphocytes (%) (Auto) 16 % (24-48) 11 % (24-48) Monocytes (%) (Auto) 9 % (0-9) 10 % (0-9) Eosinophils (%) (Auto) 5 % (0-3) 5 % (0-3) Basophils (%) (Auto) 1 % (0-3) 1 % (0-3) Neutrophils # (Auto) 2.1 x10^3uL (1.8-7.7) 2.7 x10^3uL (1.8-7.7) Lymphocytes # (Auto) 0.5 x10^3/uL (1.0-4.8) 0.4 x10^3/uL (1.0-4.8) Monocytes # (Auto) 0.3 x10^3/uL (0.0-1.1) 0.4 x10^3/uL (0.0-1.1) Eosinophils # (Auto) 0.1 x10^3/uL (0.0-0.7) 0.2 x10^3/uL (0.0-0.7) Basophils # (Auto) 0.0 x10^3/uL (0.0-0.2) 0.0 x10^3/uL (0.0-0.2) Sodium Level 134 mmol/L (136-145) 141 mmol/L (136-145) Potassium Level 3.8 mmol/L (3.5-5.1) 3.1 mmol/L (3.5-5.1) Chloride Level 96 mmol/L (98-107) 103 mmol/L (98-107) Carbon Dioxide Level 28 mmol/L (21-32) 30 mmol/L (21-32) Anion Gap 10 (6-14) 8 (6-14) Blood Urea Nitrogen 24 mg/dL (7-20) 26 mg/dL (7-20) Creatinine 2.9 mg/dL (0.6-1.0) 2.8 mg/dL (0.6-1.0) Estimated GFR (Cockcroft-Gault) 16.0 16.7 Glucose Level 747 mg/dL (70-99) 671 mg/dL (70-99) 214 mg/dL (70-99) Calcium Level 8.2 mg/dL (8.5-10.1) 7.4 mg/dL (8.5-10.1) Magnesium Level 1.8 mg/dL (1.8-2.4) Creatine Kinase 101 U/L (26-192) Creatine Kinase MB (Mass) 2.0 ng/mL (0.0-3.6) Creatine Kinase MB Relative Index 2.0 % (0-4) Troponin I Quantitative < 0.017 ng/mL (0.000-0.055) DT-[id number]-Type Natriuretic Peptide 4352 pg/mL (0-124) Lipase 123 U/L (73-393) Thyroid Stimulating Hormone (TSH) 6.892 uIU/mL (0.358-3.74) Urine Collection Type Unknown Urine Color Yellow Urine Clarity Clear Urine pH 5.0 Urine Specific [place] 1.025 Urine Protein 100 mg/dL (NEG-TRACE) Urine Glucose (UA) >=1000 mg/dL (NEG) Urine Ketones (Stick) Negative mg/dL (NEG) Urine Blood Large (NEG) Urine Nitrite Negative (NEG) Urine Bilirubin Negative (NEG) Urine Urobilinogen Dipstick 1.0 mg/dL (0.2 mg/dL) Urine Leukocyte Esterase Small (NEG) Urine RBC 11-20 /HPF (0-2) Urine WBC 5-10 /HPF (0-4) Urine Squamous Epithelial Cells Many /LPF Urine Bacteria Moderate /HPF (0-FEW) BUN/Creatinine Ratio 9 (6-20) Total Bilirubin 1.4 mg/dL (0.2-1.0) Aspartate Amino Transf (AST/SGOT) 17 U/L (15-37) Alanine Aminotransferase (ALT/SGPT) 22 U/L (14-59) Alkaline Phosphatase 203 U/L (46-116) Total Protein 6.3 g/dL (6.4-8.2) Albumin 2.8 g/dL (3.4-5.0) Albumin/Globulin Ratio 0.8 (1.0-1.7) Test 03/15/17 06:33 03/15/17 10:25 Troponin I Quantitative 0.022 ng/mL (0.000-0.055) Glucose (Fingerstick) 194 mg/dL (70-99) VTE Prophylaxis Ordered VTE Prophylaxis Devices: No VTE Pharmacological Prophylaxi: No NARA DIAZ MD Mar 15, 2017 13:25
[2017-03-15] MEDS: ALPRAZolam 0.5 MG TABLET PO SCH ×2 (15:00→22:03)
--- NOTE | 2017-03-15 15:23 | PDOC2 ---
NEUROLOGY CONSULT Date of Admission Date of Admission DATE: 03/15/17 TIME: 15:10 Reason for Consult Reason for Consult: IMPRESSION: Metabolic encephalopathy. Seizures x 2 , new onset. Hyperglycemia, glucose level 747 DM, poorly controlled. Renal failure on dialysis. CHF COPD HTN HLD CMT Hypothyroidism UTI Old CVA? RECOMMENDATIONS/PLAN: Control hyperglycemia. Rehydration. EEG Brain MRI w/o contrast. No contrast due to renal failure. Treat medical diseases. Dialysis. HISTORY OF THE PRESENT ILLNESS: 71-year-old female patient with above medical diseases had a seizure described as decreased mental status with left side facial abnormal twitching movements for several minutes observed by her . She was brought to the ER of [facility] and her glucode level revealed 747. She had 2 seizures per reports with postictal sleepiness. No history of seizure in the past. PAST MEDICAL HISTORY: Please see above. PAST SURGERY HISTORY: Cataract surgery. Carpal tunnel release surgery. Knee surgery. ALLERGY: Reviewed. MEDICATIONS: Refer to [facility] HISTORY: Non contributory. SOCIAL HISTORY: Lives with her at home. Denies current smoking, drinking, and illicit drug use. REVIEW OF SYSTEMS: Constitutional: No malnutrition, weight loss, cachexia. Head: No traumatic brain or head injury. Skin: No edema, or rash. Ear: No infection. Eyes: No vision loss or color blindness. Nose: No bleeding or purulent discharges. Hearing: No hearing decrease. Neck: No injury. Breast: No history of cancer, masses,or discharges. Cardiac: CHF, HTN, HLD. Pulmonary: COPD. GI: No GI ulcer, GI bleeding. Urinary/genital: UTI. Endocrinologic: Diabetes Mellitus Skeletomuscular: Generalized weakness. Neurological: see HP. Psychiatric: Denies drug use/abuse. Otherwise, not [id number] review of systems. PHYSICAL EXAMINATION: General appearance is in subacute distress. HEENT: Normocephalic and nontraumatic. Eyes, nose, ears, and throat are unremarkable. Neck is supple. No lymphadenopathy. No bruits are heard over the carotid artery. No crepitus. Cardiovascular: S1, S2, regular rate and rhythm. Pulmonary: Clear to auscultation bilaterally. Abdomen: Bowel sounds are positive. Extremities: No rash, lesions, or edema. No restriction of range of motion NEUROLOGICAL EXAMINATION: Drowsiness. Not oriented to time, but knows place and person. PERRL. EOMI. CN: no focal findings. Muscle tone: within normal. Muscle strength: 4 DTR: 2 Plantar reflex: Neutral response bilaterally Gait: not examined in bed. Sensory exam: no abnormal findings. No cerebellar signs elicited. F-T-N test not examed Current Medications Current Medications Current Medications Sodium Chloride 1,000 ml @ 1,000 mls/hr 1X ONCE IV Last administered on 22:23; Start 03/14/17 at 22:30; Stop 03/14/17 at 23:29; Status DC Hydralazine HCl (Apresoline) 10 mg 1X ONCE IVP Last administered on 03/14/17 22:25; Start 03/14/17 at 22:30; Stop 03/14/17 at 22:31; Status DC Insulin Aspart (NovoLOG) 30 units 1X ONCE SQ ; Start 03/14/17 at 22:00; Stop at 22:01; Status UNV Insulin Aspart (NovoLOG) 20 units 1X ONCE SQ Last administered on 03/14/17 22 :31; Start 03/14/17 at 22:30; Stop 03/14/17 at 22:31; Status DC Lorazepam (Ativan) 2 mg STK-MED ONCE .ROUTE ; Start 03/14/17 at 22:32; Stop at 22:33; Status DC Lorazepam (Ativan) 1 mg 1X ONCE IV Last administered on 03/14/17 22:36; Start 03/14/17 at 23:00; Stop 03/14/17 at 23:01; Status DC Ondansetron HCl (Zofran) 4 mg PRN Q8HRS PRN IV NAUSEA/VOMITING Last administered on 03/15/17 05:17; Start 03/15/17 at 00:15; Stop 03/16/17 at 00:14 Lorazepam (Ativan) 1 mg 1X PRN PRN IV seizure; Start 03/15/17 at 00:15 Hydralazine HCl (Apresoline) 10 mg PRN Q4HRS PRN IVP ELEVATED BP, SEE COMMENTS ; Start 03/15/17 at 00:15 Aspirin (Children'S Aspirin) 162 mg 1X ONCE PO ; Start 03/15/17 at 00:30; Stop 03/15/17 at 00:31; Status DC Insulin Aspart (NovoLOG) 30 units 1X ONCE SQ Last administered on 03/15/17 02 :37; Start 03/15/17 at 02:00; Stop 03/15/17 at 02:01; Status DC Acetaminophen/ Hydrocodone Bitart (Lortab 5/325) 1 tab PRN Q6HRS PRN PO MODERATE PAIN; Start 03/15/17 at 05:15 Acetaminophen/ Hydrocodone Bitart (Lortab 5/325) 2 tab PRN Q6HRS PRN PO SEVERE PAIN Last administered on 03/15/17 05:40; Start 03/15/17 at 05:15 Alprazolam (Xanax) 0.5 mg DAILY PO Last administered on 03/15/17 09:11; Start 03/15/17 at 09:00; Stop 03/15/17 at 14:46; Status DC Clonidine HCl (Catapres) 0.2 mg DAILY PO Last administered on 03/15/17 09:10; Start 03/15/17 at 09:00 Famotidine (Pepcid) 20 mg DAILY PO Last administered on 03/15/17 09:10; Start 03/15/17 at 09:00 Gabapentin (Neurontin) 100 mg DAILY PO Last administered on 03/15/17 09:10; Start 03/15/17 at 09:00 Acetaminophen/ Hydrocodone Bitart (Lortab 5/325) 1 tab PRN Q6HRS PRN PO PAIN; Start 03/15/17 at 08:15; Stop 03/15/17 at 08:26; Status DC Acetaminophen/ Hydrocodone Bitart (Lortab 5/325) 2 tab PRN Q6HRS PRN PO PAIN; Start 03/15/17 at 08:15; Stop 03/15/17 at 08:26; Status DC Albuterol/ Ipratropium (Duoneb) 3 ml QID NEB Last administered on 03/15/17 12: 58; Start 03/15/17 at 09:00 Levothyroxine Sodium (Synthroid) 175 mcg DAILYAC PO ; Start 03/16/17 at 07:30 Metoprolol Succinate (Toprol Xl) 25 mg DAILY PO Last administered on 03/15/17 09:11; Start 03/15/17 at 09:00 Rifaximin (Xifaxan) 550 mg BID PO Last administered on 03/15/17 09:10; Start 03/15/17 at 09:00 Sertraline HCl (Zoloft) 50 mg DAILY PO Last administered on 03/15/17 09:11; Start 03/15/17 at 09:00 Sevelamer Carbonate (Renvela) 800 mg TIDWMEALS PO Last administered on 09:10; Start 03/15/17 at 09:00 Sodium Bicarbonate (Sodium Bicarbonate) 1,300 mg 3X/WEEK PO ; Start 03/17/17 at 09:00 Zolpidem Tartrate (Ambien) 5 mg PRN QHS PRN PO INSOMNIA; Start 03/15/17 at 08: 15 Ergocalciferol (Vitamin D2) 50,000 unit WEEKLY PO ; Start 03/22/17 at 09:00 Insulin Detemir (Levemir) 50 units QHS SQ ; Start 03/15/17 at 21:00 Isosorbide Mononitrate (Imdur) 30 mg DAILY PO Last administered on 03/15/17 09 :10; Start 03/15/17 at 09:00 Losartan Potassium (Cozaar) 100 mg DAILY PO Last administered on 03/15/17 09: 11; Start 03/15/17 at 09:00 Ondansetron HCl (Zofran Odt) 4 mg PRN Q6HRS PRN PO NAUSEA/VOMITING; Start 03/15 at 08:30 Insulin Aspart (NovoLOG) 0-9 UNITS TIDWMEALS SQ Last administered on 03/15/17 09:12; Start 03/15/17 at 09:03 Dextrose (Dextrose 50%-Water Syringe) 12.5 gm PRN Q15MIN PRN IV SEE COMMENTS; Start 03/15/17 at 08:15 Insulin Aspart (NovoLOG) 15 units TIDAC SQ ; Start 03/15/17 at 11:30; Stop 03/15 at 11:30; Status DC Insulin Aspart (NovoLOG) 20 units TIDAC SQ Last administered on 03/15/17 09:13 ; Start 03/15/17 at 09:04 Sodium Chloride 1,000 ml @ 1,000 mls/hr Q1H PRN IV hypotension; Start 03/15/17 at 11:23; Stop 03/15/17 at 17:22 Albumin Human 200 ml @ 200 mls/hr 1X PRN PRN IV Hypotension Last administered on 03/15/17t 13:40; Start 03/15/17 at 11:30; Stop 03/15/17 at 17:29 Info (PHARMACY MONITORING -- do not chart) 1 each PRN DAILY PRN MC SEE COMMENTS ; Start 03/15/17 at 11:30 Lidocaine HCl (Xylocaine-Mpf 1% Vial) 2 ml 1X STAT INJ ; Start 03/15/17 at 12: 25; Stop 03/15/17 at 12:27; Status DC Alprazolam (Xanax) 0.5 mg TID PO ; Start 03/15/17 at 15:00 Active Scripts Active Hydrocodone-Apap 5-325 (Hydrocodone Bit/Acetaminophen) 1 Each Tablet 1 Tab PO PRN Q6HRS PRN Reported Hydrocodone-Apap 5-325 (Hydrocodone Bit/Acetaminophen) 1 Each Tablet 2 Tab PO PRN Q6HRS PRN Alprazolam 0.5 Mg Tablet 1 Tab PO DAILY Clonidine Hcl 0.2 Mg Tablet 0.2 Mg PO DAILY Gabapentin 100 Mg Capsule 100 Mg PO DAILY Sodium Bicarbonate 650 Mg Tablet 1,300 Mg PO 3X/WEEK Zoloft (Sertraline Hcl) 50 Mg Tablet 50 Mg PO DAILY Renvela (Sevelamer Carbonate) 800 Mg Tablet 1 Tab PO TIDWMEALS Losartan Potassium 100 Mg Tablet 100 Mg PO DAILY Levothyroxine Sodium 175 Mcg Tablet 175 Mcg PO DAILYAC Lactulose 20 Gm/30 Ml Solution 10 Gm PO PRN BID Dialyvite Floris D Tablet (Multivitamin, Min Cmb#25/Fa/D3) 1 Each Tablet 1 Each PO DAILY Vitamin D3 (Cholecalciferol (Vitamin D3)) 5,000 Unit Tablet 50,000 Unit PO WEEKLY Benadryl (Diphenhydramine Hcl) 25 Mg Capsule 1 Cap PO QHS PRN Duoneb 0.5-3(2.5) Mg/3 Ml (Albuterol/Ipratropium) 3 Ml Ampul.neb 3 Ml NEB QID Metoprolol Succinate ( Xl ) (Metoprolol Succinate) 25 Mg Tab.er.24h 25 Mg PO DAILY Lantus Solostar (Insulin Glargine,Hum.rec.anlog) 100 Unit/1 Ml Insuln.pen 50 Unit SQ QHS Humalog Kwikpen (Insulin Lispro) 200 Unit/1 Ml Insuln.pen 20-30 Unit SQ TID Ondansetron Hcl 4 Mg Tablet 4 Mg PO Q6HRS PRN Zolpidem Tartrate 5 Mg Tablet 5 Mg PO PRN QHS PRN Famotidine 20 Mg Tablet 20 Mg PO DAILY Voltaren (Diclofenac Sodium) 100 Gm Gel..gram. 1 Gm TP TID Xifaxan (Rifaximin) 550 Mg Tablet 1 Tab PO BID Isosorbide Dinitrate 30 Mg Tablet 1 Tab PO DAILY Allergies Allergies: Coded Allergies: adhesive (Verified Allergy, Intermediate, Rash, 04/09/16) TAPE Vitals VITALS Vital Signs Date Time Temp Pulse Resp B/P (MAP) Pulse Ox O2 Delivery O2 Flow Rate FiO2 03/15/17 13:02 98 Nasal Cannula 2.0 03/15/17 09:11 73 165/60 03/15/17 06:45 20 03/15/17 04:00 98.3 98.3 Labs Labs Laboratory Tests Test 03/14/17 20:40 03/14/17 21:13 03/14/17 23:30 03/15/17 06:30 White Blood Count 3.0 x10^3/uL (4.0-11.0) 3.7 x10^3/uL (4.0-11.0) Red Blood Count 3.60 x10^6/uL (3.50-5.40) 3.55 x10^6/uL (3.50-5.40) Hemoglobin 10.7 g/dL (12.0-15.5) 10.8 g/dL (12.0-15.5) Hematocrit 32.6 % (36.0-47.0) 31.2 % (36.0-47.0) Mean Corpuscular Volume 91 fL (79-100) 88 fL (79-100) Mean Corpuscular Hemoglobin 30 pg (25-35) 31 pg (25-35) Mean Corpuscular Hemoglobin Concent 33 g/dL (31-37) 35 g/dL (31-37) Red Cell Distribution Width 16.5 % (11.5-14.5) 16.5 % (11.5-14.5) Platelet Count 58 x10^3/uL (140-400) 65 x10^3/uL (140-400) Neutrophils (%) (Auto) 69 % (31-73) 73 % (31-73) Lymphocytes (%) (Auto) 16 % (24-48) 11 % (24-48) Monocytes (%) (Auto) 9 % (0-9) 10 % (0-9) Eosinophils (%) (Auto) 5 % (0-3) 5 % (0-3) Basophils (%) (Auto) 1 % (0-3) 1 % (0-3) Neutrophils # (Auto) 2.1 x10^3uL (1.8-7.7) 2.7 x10^3uL (1.8-7.7) Lymphocytes # (Auto) 0.5 x10^3/uL (1.0-4.8) 0.4 x10^3/uL (1.0-4.8) Monocytes # (Auto) 0.3 x10^3/uL (0.0-1.1) 0.4 x10^3/uL (0.0-1.1) Eosinophils # (Auto) 0.1 x10^3/uL (0.0-0.7) 0.2 x10^3/uL (0.0-0.7) Basophils # (Auto) 0.0 x10^3/uL (0.0-0.2) 0.0 x10^3/uL (0.0-0.2) Sodium Level 134 mmol/L (136-145) 141 mmol/L (136-145) Potassium Level 3.8 mmol/L (3.5-5.1) 3.1 mmol/L (3.5-5.1) Chloride Level 96 mmol/L (98-107) 103 mmol/L (98-107) Carbon Dioxide Level 28 mmol/L (21-32) 30 mmol/L (21-32) Anion Gap 10 (6-14) 8 (6-14) Blood Urea Nitrogen 24 mg/dL (7-20) 26 mg/dL (7-20) Creatinine 2.9 mg/dL (0.6-1.0) 2.8 mg/dL (0.6-1.0) Estimated GFR (Cockcroft-Gault) 16.0 16.7 Glucose Level 747 mg/dL (70-99) 671 mg/dL (70-99) 214 mg/dL (70-99) Calcium Level 8.2 mg/dL (8.5-10.1) 7.4 mg/dL (8.5-10.1) Magnesium Level 1.8 mg/dL (1.8-2.4) Creatine Kinase 101 U/L (26-192) Creatine Kinase MB (Mass) 2.0 ng/mL (0.0-3.6) Creatine Kinase MB Relative Index 2.0 % (0-4) Troponin I Quantitative < 0.017 ng/mL (0.000-0.055) LB-Hni-H-Type Natriuretic Peptide 4352 pg/mL (0-124) Lipase 123 U/L (73-393) Thyroid Stimulating Hormone (TSH) 6.892 uIU/mL (0.358-3.74) Urine Collection Type Unknown Urine Color Yellow Urine Clarity Clear Urine pH 5.0 Urine Specific [place] 1.025 Urine Protein 100 mg/dL (NEG-TRACE) Urine Glucose (UA) >=1000 mg/dL (NEG) Urine Ketones (Stick) Negative mg/dL (NEG) Urine Blood Large (NEG) Urine Nitrite Negative (NEG) Urine Bilirubin Negative (NEG) Urine Urobilinogen Dipstick 1.0 mg/dL (0.2 mg/dL) Urine Leukocyte Esterase Small (NEG) Urine RBC 11-20 /HPF (0-2) Urine WBC 5-10 /HPF (0-4) Urine Squamous Epithelial Cells Many /LPF Urine Bacteria Moderate /HPF (0-FEW) BUN/Creatinine Ratio 9 (6-20) Total Bilirubin 1.4 mg/dL (0.2-1.0) Aspartate Amino Transf (AST/SGOT) 17 U/L (15-37) Alanine Aminotransferase (ALT/SGPT) 22 U/L (14-59) Alkaline Phosphatase 203 U/L (46-116) Total Protein 6.3 g/dL (6.4-8.2) Albumin 2.8 g/dL (3.4-5.0) Albumin/Globulin Ratio 0.8 (1.0-1.7) Test 03/15/17 06:33 03/15/17 10:25 03/15/17 13:00 Troponin I Quantitative 0.022 ng/mL (0.000-0.055) < 0.017 ng/mL (0.000-0.055) Glucose (Fingerstick) 194 mg/dL (70-99) Laboratory Tests Test 03/14/17 20:40 03/14/17 21:13 03/14/17 23:30 03/15/17 06:30 White Blood Count 3.0 x10^3/uL (4.0-11.0) 3.7 x10^3/uL (4.0-11.0) Red Blood Count 3.60 x10^6/uL (3.50-5.40) 3.55 x10^6/uL (3.50-5.40) Hemoglobin 10.7 g/dL (12.0-15.5) 10.8 g/dL (12.0-15.5) Hematocrit 32.6 % (36.0-47.0) 31.2 % (36.0-47.0) Mean Corpuscular Volume 91 fL (79-100) 88 fL (79-100) Mean Corpuscular Hemoglobin 30 pg (25-35) 31 pg (25-35) Mean Corpuscular Hemoglobin Concent 33 g/dL (31-37) 35 g/dL (31-37) Red Cell Distribution Width 16.5 % (11.5-14.5) 16.5 % (11.5-14.5) Platelet Count 58 x10^3/uL (140-400) 65 x10^3/uL (140-400) Neutrophils (%) (Auto) 69 % (31-73) 73 % (31-73) Lymphocytes (%) (Auto) 16 % (24-48) 11 % (24-48) Monocytes (%) (Auto) 9 % (0-9) 10 % (0-9) Eosinophils (%) (Auto) 5 % (0-3) 5 % (0-3) Basophils (%) (Auto) 1 % (0-3) 1 % (0-3) Neutrophils # (Auto) 2.1 x10^3uL (1.8-7.7) 2.7 x10^3uL (1.8-7.7) Lymphocytes # (Auto) 0.5 x10^3/uL (1.0-4.8) 0.4 x10^3/uL (1.0-4.8) Monocytes # (Auto) 0.3 x10^3/uL (0.0-1.1) 0.4 x10^3/uL (0.0-1.1) Eosinophils # (Auto) 0.1 x10^3/uL (0.0-0.7) 0.2 x10^3/uL (0.0-0.7) Basophils # (Auto) 0.0 x10^3/uL (0.0-0.2) 0.0 x10^3/uL (0.0-0.2) Sodium Level 134 mmol/L (136-145) 141 mmol/L (136-145) Potassium Level 3.8 mmol/L (3.5-5.1) 3.1 mmol/L (3.5-5.1) Chloride Level 96 mmol/L (98-107) 103 mmol/L (98-107) Carbon Dioxide Level 28 mmol/L (21-32) 30 mmol/L (21-32) Anion Gap 10 (6-14) 8 (6-14) Blood Urea Nitrogen 24 mg/dL (7-20) 26 mg/dL (7-20) Creatinine 2.9 mg/dL (0.6-1.0) 2.8 mg/dL (0.6-1.0) Estimated GFR (Cockcroft-Gault) 16.0 16.7 Glucose Level 747 mg/dL (70-99) 671 mg/dL (70-99) 214 mg/dL (70-99) Calcium Level 8.2 mg/dL (8.5-10.1) 7.4 mg/dL (8.5-10.1) Magnesium Level 1.8 mg/dL (1.8-2.4) Creatine Kinase 101 U/L (26-192) Creatine Kinase MB (Mass) 2.0 ng/mL (0.0-3.6) Creatine Kinase MB Relative Index 2.0 % (0-4) Troponin I Quantitative < 0.017 ng/mL (0.000-0.055) EY-Opa-B-Type Natriuretic Peptide 4352 pg/mL (0-124) Lipase 123 U/L (73-393) Thyroid Stimulating Hormone (TSH) 6.892 uIU/mL (0.358-3.74) Urine Collection Type Unknown Urine Color Yellow Urine Clarity Clear Urine pH 5.0 Urine Specific [place] 1.025 Urine Protein 100 mg/dL (NEG-TRACE) Urine Glucose (UA) >=1000 mg/dL (NEG) Urine Ketones (Stick) Negative mg/dL (NEG) Urine Blood Large (NEG) Urine Nitrite Negative (NEG) Urine Bilirubin Negative (NEG) Urine Urobilinogen Dipstick 1.0 mg/dL (0.2 mg/dL) Urine Leukocyte Esterase Small (NEG) Urine RBC 11-20 /HPF (0-2) Urine WBC 5-10 /HPF (0-4) Urine Squamous Epithelial Cells Many /LPF Urine Bacteria Moderate /HPF (0-FEW) BUN/Creatinine Ratio 9 (6-20) Total Bilirubin 1.4 mg/dL (0.2-1.0) Aspartate Amino Transf (AST/SGOT) 17 U/L (15-37) Alanine Aminotransferase (ALT/SGPT) 22 U/L (14-59) Alkaline Phosphatase 203 U/L (46-116) Total Protein 6.3 g/dL (6.4-8.2) Albumin 2.8 g/dL (3.4-5.0) Albumin/Globulin Ratio 0.8 (1.0-1.7) Test 03/15/17 06:33 03/15/17 10:25 03/15/17 13:00 Troponin I Quantitative 0.022 ng/mL (0.000-0.055) < 0.017 ng/mL (0.000-0.055) Glucose (Fingerstick) 194 mg/dL (70-99) GARY LOPES MD Mar 15, 2017 15:23
--- NOTE | 2017-03-15 21:37 | RAD ---
MR of the brain without contrast Mild prominence of ventricles and sulci compatible with mild atrophy. HISTORY: Seizure activity. History of strokes. New onset seizure. TECHNIQUE: Axial diffusion weighted, T1-weighted, FLAIR, gradient echo, T2-weighted, coronal FLAIR, coronal T2 weighted, sagittal T1 weighted sequences are obtained. Emergency interpretation was requested. COMPARISON: December 06, 2016. FINDINGS: There is some degradation of image quality on this study due to mild/moderate motion. There is a tiny focus of restricted diffusion in the right parietal white matter. There may be an additional tiny focus of restricted diffusion in the right frontal white matter. No large or cortical areas of restricted diffusion are identified. Mild areas of hyperintense T2 and FLAIR signal are identified, roughly similar to the prior study. No evidence of acute intracranial hemorrhage. No evidence of abnormal extra-axial fluid collection. No evidence of midline shift. Major vascular structures demonstrate normal arterial intracranial flow voids. The sinuses appear essentially clear. IMPRESSION: 1. There appears to be a tiny focus of acute ischemia in the right parietal white matter. There may be an additional tiny focus of acute ischemia in the right frontal white matter. No large acute cortical infarction is seen. Findings communicated by telephone with the patient's nurse, Jen, at 2134 hours on 03/15/2017. 2. Mild T2 and FLAIR signal abnormality is again seen bilaterally, would most typically be due to chronic small vessel ischemic disease. Electronically signed by: Tony Montelongo MD (03/15/2017 9:34 PM) [id number]
[2017-03-15] MEDS: IV NORMAL SALINE 1000ML BAG 1,000 ML IV SCH ×2 (22:03→22:05)
[2017-03-15] MEDS: INSULIN DETEMIR 300 UNITS/3 ML INSULN.PEN. SQ SCH (22:04)
[2017-03-15] MEDS: ASPIRIN ENTERIC COATED 325 MG TABLET.DR. PO SCH (22:41)
[2017-03-16] VITALS (14 sets, daily range): BP systolic 80–138; BP diastolic 40–59
--- NOTE | 2017-03-16 00:05 | CONS ---
DATE OF CONSULTATION: PRIMARY PHYSICIAN: Dr. Cuellar. REASON FOR CONSULTATION: ESRD dialysis. HISTORY OF PRESENT ILLNESS: The patient is a 71-year-old female who I follow for ESRD needs. She dialyzes Friday, , Friday at [facility]. She has not missed any dialysis that she is aware of. She claims she had a subjective seizure-like activity where she claims her face was drawn towards the left and she could not her teeth. She came to the ER for further evaluation. Her glucose was noted to be 747 and a BNP of 4000. We were asked to see her for the same. This morning, her sugars are better controlled and her potassium has dropped to 3.1. She is up for dialysis today. We were asked to see her for the same. She has not had any further seizure activity that is reported. Neurology has been consulted. For rest of the details, see electronic records. RALPH ALONZO MD DR: TANYA/susannah JOB#: [id number] / [id number]
[2017-03-16 05:56] LABS: BASO % 1 % (0-3); EOS % 5 % (0-3); HEMATOCRIT 26.1 % (36.0-47.0); HEMOGLOBIN 9.1 g/dL (12.0-15.5); LYMPH # 0.5 x10^3/uL (1.0-4.8); LYMPH % 20 % (24-48); MEAN CORPUSCULAR HEMOGLOBIN 30 pg (25-35); MEAN CORPUSCULAR HGB CONC 35 g/dL (31-37); MEAN CORPUSCULAR VOLUME 86 fL (79-100); MONO % 10 % (0-9); NEUT % 64 % (31-73); PLATELET COUNT 49 x10^3/uL (140-400); RED BLOOD COUNT 3.03 x10^6/uL (3.50-5.40); RED CELL DISTRIBUTION WIDTH 16.7 % (11.5-14.5); WHITE BLOOD COUNT 2.4 x10^3/uL (4.0-11.0)
[2017-03-16 06:12] LABS: CALCIUM 7.1 mg/dL (8.5-10.1); CREATININE 2.3 mg/dL (0.6-1.0); POTASSIUM 3.3 mmol/L (3.5-5.1)
--- NOTE | 2017-03-16 06:57 | PDOC ---
PROGRESS NOTES Chief Complaint Chief Complaint Chief complaint seizure-like activity seizure-like activity unclear etiology possible due to hyperglycemia Hyperglycemia noncompliance End-stage renal disease on hemodialysis Pancytopenia likely do not on chronic cirrhosis Nonalcoholic cirrhosis with abdominal distention Hypertension Ascites with nonalcoholic cirrhosis Hypokalemia Plan Blood sugars are improving with sliding scale continue current regimen and home dose insulin Consult to interventional radiology for paracentesis Hemodialysis as per nephrology Patient continued to have pancytopenia which has been chronic likely due to cirrhosis and splenomegaly Her MRI showed a questionable a acute or /subacute CVA, neurology following EEG pending Echocardiogram and ultrasound carotid pending Physical therapy and occupational therapy Replace potassium History of Present Illness History of Present Illness No seizure-like activity noted, patient is feeling better, no fever no chills no nausea or vomiting except for mild distention of the abdomen Vitals Vitals Vital Signs Date Time Temp Pulse Resp B/P (MAP) Pulse Ox O2 Delivery O2 Flow Rate FiO2 03/16/17 06:00 54 11 136/59 (84) 95 Room Air 03/16/17 04:00 97.4 97.4 03/15/17 16:21 2.0 Physical Exam General: Alert, Oriented X3, Cooperative Heart: Normal S1, Normal S2 Lungs: Clear Abdomen: Normal bowel sounds, Other (abdomen distended with umbilical hernia) Extremities: No clubbing, No cyanosis Skin: Other (chronic edema with rash and lower extremities) Labs LABS Laboratory Tests Test 03/15/17 10:25 03/15/17 13:00 03/15/17 17:29 03/15/17 22:01 Glucose (Fingerstick) 194 mg/dL (70-99) 113 mg/dL (70-99) 130 mg/dL (70-99) Troponin I Quantitative < 0.017 ng/mL (0.000-0.055) Test 03/16/17 04:00 White Blood Count 2.4 x10^3/uL (4.0-11.0) Red Blood Count 3.03 x10^6/uL (3.50-5.40) Hemoglobin 9.1 g/dL (12.0-15.5) Hematocrit 26.1 % (36.0-47.0) Mean Corpuscular Volume 86 fL (79-100) Mean Corpuscular Hemoglobin 30 pg (25-35) Mean Corpuscular Hemoglobin Concent 35 g/dL (31-37) Red Cell Distribution Width 16.7 % (11.5-14.5) Platelet Count 49 x10^3/uL (140-400) Neutrophils (%) (Auto) 64 % (31-73) Lymphocytes (%) (Auto) 20 % (24-48) Monocytes (%) (Auto) 10 % (0-9) Eosinophils (%) (Auto) 5 % (0-3) Basophils (%) (Auto) 1 % (0-3) Neutrophils # (Auto) 1.6 x10^3uL (1.8-7.7) Lymphocytes # (Auto) 0.5 x10^3/uL (1.0-4.8) Monocytes # (Auto) 0.2 x10^3/uL (0.0-1.1) Eosinophils # (Auto) 0.1 x10^3/uL (0.0-0.7) Basophils # (Auto) 0.0 x10^3/uL (0.0-0.2) Sodium Level 140 mmol/L (136-145) Potassium Level 3.3 mmol/L (3.5-5.1) Chloride Level 105 mmol/L (98-107) Carbon Dioxide Level 29 mmol/L (21-32) Anion Gap 6 (6-14) Blood Urea Nitrogen 17 mg/dL (7-20) Creatinine 2.3 mg/dL (0.6-1.0) Estimated GFR (Cockcroft-Gault) 21.0 Glucose Level 80 mg/dL (70-99) Calcium Level 7.1 mg/dL (8.5-10.1) Assessment and Plan Assessmemt and Plan Problems Medical Problems: (1) Seizure Status: Acute Problems: Comment Review of Relevant I have reviewed the following items karyn (where applicable) has been applied. Labs Laboratory Tests Test 03/14/17 20:40 03/14/17 21:13 03/14/17 23:30 03/15/17 01:33 White Blood Count 3.0 x10^3/uL (4.0-11.0) Red Blood Count 3.60 x10^6/uL (3.50-5.40) Hemoglobin 10.7 g/dL (12.0-15.5) Hematocrit 32.6 % (36.0-47.0) Mean Corpuscular Volume 91 fL (79-100) Mean Corpuscular Hemoglobin 30 pg (25-35) Mean Corpuscular Hemoglobin Concent 33 g/dL (31-37) Red Cell Distribution Width 16.5 % (11.5-14.5) Platelet Count 58 x10^3/uL (140-400) Neutrophils (%) (Auto) 69 % (31-73) Lymphocytes (%) (Auto) 16 % (24-48) Monocytes (%) (Auto) 9 % (0-9) Eosinophils (%) (Auto) 5 % (0-3) Basophils (%) (Auto) 1 % (0-3) Neutrophils # (Auto) 2.1 x10^3uL (1.8-7.7) Lymphocytes # (Auto) 0.5 x10^3/uL (1.0-4.8) Monocytes # (Auto) 0.3 x10^3/uL (0.0-1.1) Eosinophils # (Auto) 0.1 x10^3/uL (0.0-0.7) Basophils # (Auto) 0.0 x10^3/uL (0.0-0.2) Sodium Level 134 mmol/L (136-145) Potassium Level 3.8 mmol/L (3.5-5.1) Chloride Level 96 mmol/L (98-107) Carbon Dioxide Level 28 mmol/L (21-32) Anion Gap 10 (6-14) Blood Urea Nitrogen 24 mg/dL (7-20) Creatinine 2.9 mg/dL (0.6-1.0) Estimated GFR (Cockcroft-Gault) 16.0 Glucose Level 747 mg/dL (70-99) 671 mg/dL (70-99) Calcium Level 8.2 mg/dL (8.5-10.1) Magnesium Level 1.8 mg/dL (1.8-2.4) Creatine Kinase 101 U/L (26-192) Creatine Kinase MB (Mass) 2.0 ng/mL (0.0-3.6) Creatine Kinase MB Relative Index 2.0 % (0-4) Troponin I Quantitative < 0.017 ng/mL (0.000-0.055) OJ-Ijv-Y-Type Natriuretic Peptide 4352 pg/mL (0-124) Lipase 123 U/L (73-393) Thyroid Stimulating Hormone (TSH) 6.892 uIU/mL (0.358-3.74) Urine Collection Type Unknown Urine Color Yellow Urine Clarity Clear Urine pH 5.0 Urine Specific Miller 1.025 Urine Protein 100 mg/dL (NEG-TRACE) Urine Glucose (UA) >=1000 mg/dL (NEG) Urine Ketones (Stick) Negative mg/dL (NEG) Urine Blood Large (NEG) Urine Nitrite Negative (NEG) Urine Bilirubin Negative (NEG) Urine Urobilinogen Dipstick 1.0 mg/dL (0.2 mg/dL) Urine Leukocyte Esterase Small (NEG) Urine RBC 11-20 /HPF (0-2) Urine WBC 5-10 /HPF (0-4) Urine Squamous Epithelial Cells Many /LPF Urine Bacteria Moderate /HPF (0-FEW) Nasal Screen MRSA (PCR) Negative (Negative) Test 03/15/17 06:30 03/15/17 06:33 03/15/17 10:25 03/15/17 13:00 White Blood Count 3.7 x10^3/uL (4.0-11.0) Red Blood Count 3.55 x10^6/uL (3.50-5.40) Hemoglobin 10.8 g/dL (12.0-15.5) Hematocrit 31.2 % (36.0-47.0) Mean Corpuscular Volume 88 fL (79-100) Mean Corpuscular Hemoglobin 31 pg (25-35) Mean Corpuscular Hemoglobin Concent 35 g/dL (31-37) Red Cell Distribution Width 16.5 % (11.5-14.5) Platelet Count 65 x10^3/uL (140-400) Neutrophils (%) (Auto) 73 % (31-73) Lymphocytes (%) (Auto) 11 % (24-48) Monocytes (%) (Auto) 10 % (0-9) Eosinophils (%) (Auto) 5 % (0-3) Basophils (%) (Auto) 1 % (0-3) Neutrophils # (Auto) 2.7 x10^3uL (1.8-7.7) Lymphocytes # (Auto) 0.4 x10^3/uL (1.0-4.8) Monocytes # (Auto) 0.4 x10^3/uL (0.0-1.1) Eosinophils # (Auto) 0.2 x10^3/uL (0.0-0.7) Basophils # (Auto) 0.0 x10^3/uL (0.0-0.2) Sodium Level 141 mmol/L (136-145) Potassium Level 3.1 mmol/L (3.5-5.1) Chloride Level 103 mmol/L (98-107) Carbon Dioxide Level 30 mmol/L (21-32) Anion Gap 8 (6-14) Blood Urea Nitrogen 26 mg/dL (7-20) Creatinine 2.8 mg/dL (0.6-1.0) Estimated GFR (Cockcroft-Gault) 16.7 BUN/Creatinine Ratio 9 (6-20) Glucose Level 214 mg/dL (70-99) Calcium Level 7.4 mg/dL (8.5-10.1) Total Bilirubin 1.4 mg/dL (0.2-1.0) Aspartate Amino Transf (AST/SGOT) 17 U/L (15-37) Alanine Aminotransferase (ALT/SGPT) 22 U/L (14-59) Alkaline Phosphatase 203 U/L (46-116) Total Protein 6.3 g/dL (6.4-8.2) Albumin 2.8 g/dL (3.4-5.0) Albumin/Globulin Ratio 0.8 (1.0-1.7) Troponin I Quantitative 0.022 ng/mL (0.000-0.055) < 0.017 ng/mL (0.000-0.055) Glucose (Fingerstick) 194 mg/dL (70-99) Test 03/15/17 17:29 03/15/17 22:01 03/16/17 04:00 Glucose (Fingerstick) 113 mg/dL (70-99) 130 mg/dL (70-99) White Blood Count 2.4 x10^3/uL (4.0-11.0) Red Blood Count 3.03 x10^6/uL (3.50-5.40) Hemoglobin 9.1 g/dL (12.0-15.5) Hematocrit 26.1 % (36.0-47.0) Mean Corpuscular Volume 86 fL (79-100) Mean Corpuscular Hemoglobin 30 pg (25-35) Mean Corpuscular Hemoglobin Concent 35 g/dL (31-37) Red Cell Distribution Width 16.7 % (11.5-14.5) Platelet Count 49 x10^3/uL (140-400) Neutrophils (%) (Auto) 64 % (31-73) Lymphocytes (%) (Auto) 20 % (24-48) Monocytes (%) (Auto) 10 % (0-9) Eosinophils (%) (Auto) 5 % (0-3) Basophils (%) (Auto) 1 % (0-3) Neutrophils # (Auto) 1.6 x10^3uL (1.8-7.7) Lymphocytes # (Auto) 0.5 x10^3/uL (1.0-4.8) Monocytes # (Auto) 0.2 x10^3/uL (0.0-1.1) Eosinophils # (Auto) 0.1 x10^3/uL (0.0-0.7) Basophils # (Auto) 0.0 x10^3/uL (0.0-0.2) Sodium Level 140 mmol/L (136-145) Potassium Level 3.3 mmol/L (3.5-5.1) Chloride Level 105 mmol/L (98-107) Carbon Dioxide Level 29 mmol/L (21-32) Anion Gap 6 (6-14) Blood Urea Nitrogen 17 mg/dL (7-20) Creatinine 2.3 mg/dL (0.6-1.0) Estimated GFR (Cockcroft-Gault) 21.0 Glucose Level 80 mg/dL (70-99) Calcium Level 7.1 mg/dL (8.5-10.1) Laboratory Tests Test 03/15/17 10:25 03/15/17 13:00 03/15/17 17:29 03/15/17 22:01 Glucose (Fingerstick) 194 mg/dL (70-99) 113 mg/dL (70-99) 130 mg/dL (70-99) Troponin I Quantitative < 0.017 ng/mL (0.000-0.055) Test 03/16/17 04:00 White Blood Count 2.4 x10^3/uL (4.0-11.0) Red Blood Count 3.03 x10^6/uL (3.50-5.40) Hemoglobin 9.1 g/dL (12.0-15.5) Hematocrit 26.1 % (36.0-47.0) Mean Corpuscular Volume 86 fL (79-100) Mean Corpuscular Hemoglobin 30 pg (25-35) Mean Corpuscular Hemoglobin Concent 35 g/dL (31-37) Red Cell Distribution Width 16.7 % (11.5-14.5) Platelet Count 49 x10^3/uL (140-400) Neutrophils (%) (Auto) 64 % (31-73) Lymphocytes (%) (Auto) 20 % (24-48) Monocytes (%) (Auto) 10 % (0-9) Eosinophils (%) (Auto) 5 % (0-3) Basophils (%) (Auto) 1 % (0-3) Neutrophils # (Auto) 1.6 x10^3uL (1.8-7.7) Lymphocytes # (Auto) 0.5 x10^3/uL (1.0-4.8) Monocytes # (Auto) 0.2 x10^3/uL (0.0-1.1) Eosinophils # (Auto) 0.1 x10^3/uL (0.0-0.7) Basophils # (Auto) 0.0 x10^3/uL (0.0-0.2) Sodium Level 140 mmol/L (136-145) Potassium Level 3.3 mmol/L (3.5-5.1) Chloride Level 105 mmol/L (98-107) Carbon Dioxide Level 29 mmol/L (21-32) Anion Gap 6 (6-14) Blood Urea Nitrogen 17 mg/dL (7-20) Creatinine 2.3 mg/dL (0.6-1.0) Estimated GFR (Cockcroft-Gault) 21.0 Glucose Level 80 mg/dL (70-99) Calcium Level 7.1 mg/dL (8.5-10.1) Microbiology 03/14/17 Urine Culture - Preliminary, Resulted 03/14/17 Urine Culture Result 1 (DARIN) - Preliminary, Resulted Medications Current Medications Sodium Chloride 1,000 ml @ 1,000 mls/hr 1X ONCE IV Last administered on t 22:23; Start 03/14/17 at 22:30; Stop 03/14/17 at 23:29; Status DC Hydralazine HCl (Apresoline) 10 mg 1X ONCE IVP Last administered on 03/14/17 22:25; Start 03/14/17 at 22:30; Stop 03/14/17 at 22:31; Status DC Insulin Aspart (NovoLOG) 30 units 1X ONCE SQ ; Start 03/14/17 at 22:00; Stop at 22:01; Status UNV Insulin Aspart (NovoLOG) 20 units 1X ONCE SQ Last administered on 03/14/17 22 :31; Start 03/14/17 at 22:30; Stop 03/14/17 at 22:31; Status DC Lorazepam (Ativan) 2 mg STK-MED ONCE .ROUTE ; Start 03/14/17 at 22:32; Stop at 22:33; Status DC Lorazepam (Ativan) 1 mg 1X ONCE IV Last administered on 03/14/17 22:36; Start 03/14/17 at 23:00; Stop 03/14/17 at 23:01; Status DC Ondansetron HCl (Zofran) 4 mg PRN Q8HRS PRN IV NAUSEA/VOMITING Last administered on 03/15/17 05:17; Start 03/15/17 at 00:15; Stop 03/16/17 at 00:14 ; Status DC Lorazepam (Ativan) 1 mg 1X PRN PRN IV seizure; Start 03/15/17 at 00:15 Hydralazine HCl (Apresoline) 10 mg PRN Q4HRS PRN IVP ELEVATED BP, SEE COMMENTS ; Start 03/15/17 at 00:15 Aspirin (Children'S Aspirin) 162 mg 1X ONCE PO ; Start 03/15/17 at 00:30; Stop 03/15/17 at 00:31; Status DC Insulin Aspart (NovoLOG) 30 units 1X ONCE SQ Last administered on 03/15/17 02 :37; Start 03/15/17 at 02:00; Stop 03/15/17 at 02:01; Status DC Acetaminophen/ Hydrocodone Bitart (Lortab 5/325) 1 tab PRN Q6HRS PRN PO MODERATE PAIN; Start 03/15/17 at 05:15 Acetaminophen/ Hydrocodone Bitart (Lortab 5/325) 2 tab PRN Q6HRS PRN PO SEVERE PAIN Last administered on 03/15/17 05:40; Start 03/15/17 at 05:15 Alprazolam (Xanax) 0.5 mg DAILY PO Last administered on 03/15/17 09:11; Start 03/15/17 at 09:00; Stop 03/15/17 at 14:46; Status DC Clonidine HCl (Catapres) 0.2 mg DAILY PO Last administered on 03/15/17 09:10; Start 03/15/17 at 09:00 Famotidine (Pepcid) 20 mg DAILY PO Last administered on 03/15/17 09:10; Start 03/15/17 at 09:00 Gabapentin (Neurontin) 100 mg DAILY PO Last administered on 03/15/17 09:10; Start 03/15/17 at 09:00 Acetaminophen/ Hydrocodone Bitart (Lortab 5/325) 1 tab PRN Q6HRS PRN PO PAIN; Start 03/15/17 at 08:15; Stop 03/15/17 at 08:26; Status DC Acetaminophen/ Hydrocodone Bitart (Lortab 5/325) 2 tab PRN Q6HRS PRN PO PAIN; Start 03/15/17 at 08:15; Stop 03/15/17 at 08:26; Status DC Albuterol/ Ipratropium (Duoneb) 3 ml QID NEB Last administered on 03/15/17 19: 50; Start 03/15/17 at 09:00 Levothyroxine Sodium (Synthroid) 175 mcg DAILYAC PO ; Start 03/16/17 at 07:30 Metoprolol Succinate (Toprol Xl) 25 mg DAILY PO Last administered on 03/15/17 09:11; Start 03/15/17 at 09:00 Rifaximin (Xifaxan) 550 mg BID PO Last administered on 03/15/17 22:02; Start 03/15/17 at 09:00 Sertraline HCl (Zoloft) 50 mg DAILY PO Last administered on 03/15/17 09:11; Start 03/15/17 at 09:00 Sevelamer Carbonate (Renvela) 800 mg TIDWMEALS PO Last administered on 17:34; Start 03/15/17 at 09:00 Sodium Bicarbonate (Sodium Bicarbonate) 1,300 mg 3X/WEEK PO ; Start 03/17/17 at 09:00 Zolpidem Tartrate (Ambien) 5 mg PRN QHS PRN PO INSOMNIA; Start 03/15/17 at 08: 15 Ergocalciferol (Vitamin D2) 50,000 unit WEEKLY PO ; Start 03/22/17 at 09:00 Insulin Detemir (Levemir) 50 units QHS SQ Last administered on 03/15/17 22:04 ; Start 03/15/17 at 21:00 Isosorbide Mononitrate (Imdur) 30 mg DAILY PO Last administered on 03/15/17 09 :10; Start 03/15/17 at 09:00 Losartan Potassium (Cozaar) 100 mg DAILY PO Last administered on 03/15/17 09: 11; Start 03/15/17 at 09:00 Ondansetron HCl (Zofran Odt) 4 mg PRN Q6HRS PRN PO NAUSEA/VOMITING; Start 03/15 at 08:30 Insulin Aspart (NovoLOG) 0-9 UNITS TIDWMEALS SQ Last administered on 03/15/17 09:12; Start 03/15/17 at 09:03 Dextrose (Dextrose 50%-Water Syringe) 12.5 gm PRN Q15MIN PRN IV SEE COMMENTS; Start 03/15/17 at 08:15 Insulin Aspart (NovoLOG) 15 units TIDAC SQ ; Start 03/15/17 at 11:30; Stop 03/15 at 11:30; Status DC Insulin Aspart (NovoLOG) 20 units TIDAC SQ Last administered on 03/15/17 17:35 ; Start 03/15/17 at 09:04 Sodium Chloride 1,000 ml @ 1,000 mls/hr Q1H PRN IV hypotension; Start 03/15/17 at 11:23; Stop 03/15/17 at 17:22; Status DC Albumin Human 200 ml @ 200 mls/hr 1X PRN PRN IV Hypotension Last administered on 03/15/17 13:40; Start 03/15/17 at 11:30; Stop 03/15/17 at 17:29; Status DC Info (PHARMACY MONITORING -- do not chart) 1 each PRN DAILY PRN MC SEE COMMENTS ; Start 03/15/17 at 11:30 Lidocaine HCl (Xylocaine-Mpf 1% Vial) 2 ml 1X STAT INJ ; Start 03/15/17 at 12: 25; Stop 03/15/17 at 12:27; Status DC Alprazolam (Xanax) 0.5 mg TID PO Last administered on 03/15/17 22:03; Start at 15:00 Sodium Chloride 1,000 ml @ 500 mls/hr Q2H IV Last administered on 03/15/17 22 :03; Start 03/15/17 at 19:15; Stop 03/15/17 at 22:22; Status DC Aspirin (Ecotrin) 325 mg DAILYWBKFT PO Last administered on 03/15/17 22:41; Start 03/15/17 at 22:30 Active Scripts Active Hydrocodone-Apap 5-325 (Hydrocodone Bit/Acetaminophen) 1 Each Tablet 1 Tab PO PRN Q6HRS PRN Reported Hydrocodone-Apap 5-325 (Hydrocodone Bit/Acetaminophen) 1 Each Tablet 2 Tab PO PRN Q6HRS PRN Alprazolam 0.5 Mg Tablet 1 Tab PO DAILY Clonidine Hcl 0.2 Mg Tablet 0.2 Mg PO DAILY Gabapentin 100 Mg Capsule 100 Mg PO DAILY Sodium Bicarbonate 650 Mg Tablet 1,300 Mg PO 3X/WEEK Zoloft (Sertraline Hcl) 50 Mg Tablet 50 Mg PO DAILY Renvela (Sevelamer Carbonate) 800 Mg Tablet 1 Tab PO TIDWMEALS Losartan Potassium 100 Mg Tablet 100 Mg PO DAILY Levothyroxine Sodium 175 Mcg Tablet 175 Mcg PO DAILYAC Lactulose 20 Gm/30 Ml Solution 10 Gm PO PRN BID Dialyvite [place] D Tablet (Multivitamin, Min Cmb#25/Fa/D3) 1 Each Tablet 1 Each PO DAILY Vitamin D3 (Cholecalciferol (Vitamin D3)) 5,000 Unit Tablet 50,000 Unit PO WEEKLY Benadryl (Diphenhydramine Hcl) 25 Mg Capsule 1 Cap PO QHS PRN Duoneb 0.5-3(2.5) Mg/3 Ml (Albuterol/Ipratropium) 3 Ml Ampul.neb 3 Ml NEB QID Metoprolol Succinate ( Xl ) (Metoprolol Succinate) 25 Mg Tab.er.24h 25 Mg PO DAILY Lantus Solostar (Insulin Glargine,Hum.rec.anlog) 100 Unit/1 Ml Insuln.pen 50 Unit SQ QHS Humalog Kwikpen (Insulin Lispro) 200 Unit/1 Ml Insuln.pen 20-30 Unit SQ TID Ondansetron Hcl 4 Mg Tablet 4 Mg PO Q6HRS PRN Zolpidem Tartrate 5 Mg Tablet 5 Mg PO PRN QHS PRN Famotidine 20 Mg Tablet 20 Mg PO DAILY Voltaren (Diclofenac Sodium) 100 Gm Gel..gram. 1 Gm TP TID Xifaxan (Rifaximin) 550 Mg Tablet 1 Tab PO BID Isosorbide Dinitrate 30 Mg Tablet 1 Tab PO DAILY Vitals/I & O Vital Sign - Last 24 Hours 03/15/17 03/15/17 03/15/17 03/15/17 08:00 08:00 09:10 09:10 Pulse 70 73 73 Resp 10 B/P (MAP) 153/71 (98) 165/60 165/60 Pulse Ox 97 O2 Delivery Room Air 03/15/17 03/15/17 03/15/17 03/15/17 09:11 09:11 11:00 12:00 Pulse 73 73 64 Resp 10 B/P (MAP) 165/60 165/60 108/59 (75) Pulse Ox 97 O2 Delivery Room Air 03/15/17 03/15/17 03/15/17 03/15/17 13:02 15:00 16:00 16:21 Pulse 54 Resp 10 B/P (MAP) 84/36 (52) Pulse Ox 98 97 98 O2 Delivery Nasal Cannula Room Air Nasal Cannula O2 Flow Rate 2.0 2.0 03/15/17 03/15/17 03/15/17 03/15/17 18:45 19:00 19:15 19:30 Pulse 54 54 52 54 Resp 12 12 12 10 B/P (MAP) 83/34 (50) 85/40 (55) 98/44 (62) 94/44 (61) Pulse Ox 97 97 96 95 O2 Delivery Room Air Room Air Room Air Room Air 03/15/17 03/15/17 03/15/17 03/15/17 19:45 19:45 19:50 20:00 Temp 97.4 97.4 Pulse 50 50 Resp 11 10 B/P (MAP) 91/45 (60) 97/45 (62) Pulse Ox 97 96 97 O2 Delivery Room Air Room Air Room Air Room Air 03/15/17 03/15/17 03/15/17 03/15/17 20:15 21:15 21:30 22:00 Pulse 54 56 57 60 Resp 10 10 10 10 B/P (MAP) 109/55 (73) 110/44 (66) 121/51 (74) Pulse Ox 100 96 98 95 O2 Delivery Room Air Room Air Room Air Room Air 03/15/17 03/16/17 03/16/17 03/16/17 23:00 00:00 00:09 01:00 Temp 97.4 97.4 Pulse 58 52 52 Resp 10 12 11 B/P (MAP) 101/45 (63) 87/43 (58) 80/42 (55) Pulse Ox 97 95 95 O2 Delivery Room Air Room Air Room Air Room Air 03/16/17 03/16/17 03/16/17 03/16/17 01:30 02:00 03:00 04:00 Temp 97.4 97.4 Pulse 50 50 50 50 Resp 11 11 11 11 B/P (MAP) 104/51 (68) 81/40 (54) 90/42 (58) 85/43 (57) Pulse Ox 95 95 95 96 O2 Delivery Room Air Room Air Room Air Room Air 03/16/17 03/16/17 03/16/17 03/16/17 04:10 04:30 05:00 06:00 Pulse 50 50 54 Resp 11 11 11 B/P (MAP) 95/44 (61) 93/43 (60) 136/59 (84) Pulse Ox 96 96 95 O2 Delivery Room Air Room Air Room Air Room Air Intake and Output 03/15/17 03/15/17 03/16/17 15:00 23:00 07:00 Output Total 200 ml 175 ml 30 ml Balance -200 ml -175 ml -30 ml NARA DIAZ MD Mar 16, 2017 06:57
[2017-03-16] MEDS: LEVOTHYROXINE 175 MCG TABLET PO SCH ×2 (07:26→07:48)
[2017-03-16] MEDS: LOSARTAN POTASSIUM 50 MG TABLET. PO SCH (07:28)
[2017-03-16] MEDS: cloNIDine HCL 0.2 MG TABLET PO SCH (07:28)
[2017-03-16] MEDS: METOPROLOL SUCC 24HR ER 25 MG TAB.ER.24H. PO SCH (07:29)
[2017-03-16] MEDS: ISOSORBIDE MONONITRATE ER 30 MG TAB.ER.24H PO SCH (07:29)
[2017-03-16] MEDS: INSULIN ASPART 300 UNITS/3 ML INSULN.PEN SQ SCH ×6 (07:30→17:19)
[2017-03-16] MEDS: rifAXIMin 550 MG TABLET PO SCH ×2 (07:48→21:09)
[2017-03-16] MEDS: ASPIRIN ENTERIC COATED 325 MG TABLET.DR. PO SCH (07:48)
[2017-03-16] MEDS: GABAPENTIN 100 MG CAPSULE. PO SCH (07:48)
[2017-03-16] MEDS: SEVELAMER CARBONATE 800 MG TABLET. PO SCH ×3 (07:48→17:17)
[2017-03-16] MEDS: SERTRALINE 50 MG TABLET. PO SCH (07:48)
[2017-03-16] MEDS: ALPRAZolam 0.5 MG TABLET PO SCH ×3 (07:48→21:09)
[2017-03-16] MEDS: FAMOTIDINE 20 MG TABLET. PO SCH (07:48)
--- NOTE | 2017-03-16 07:54 | PDOC ---
SUBJECTIVE ROS F/up for ESRD developed Hypotension yest when attempted to get to dry wt CVS: no Orthopnea, no CP RESP: no SOB, no BROOKE GI: no Nausea, no Vomiting : no Dysuria, no Urgency OBJECTIVE Vital Signs Vital Signs Date Time Temp Pulse Resp B/P (MAP) Pulse Ox O2 Delivery O2 Flow Rate FiO2 03/16/17 07:29 54 117/59 03/16/17 06:00 11 95 Room Air 03/16/17 04:00 97.4 97.4 03/15/17 16:21 2.0 I & 0 Intake and Output 03/16/17 07:00 Intake Total 1000 ml Output Total 405 ml Balance 595 ml IV Total 1000 ml Output Urine Total 405 ml PHYSICAL EXAM Physical Exam General Appearance: Awake Alert Oriented x 3 In no Distress Eyes: VIsion Unchanged Conjunctiva Normal EN: No EN Drainage Mucous Memb. dryish Neck: no JVD min JVP Supple no Thyromegaly CVS: S1 S2 ? Murmur No Gallop No Rub Ch brawny Edema Resp: no Rales no Rhonchi no Acc. Muscle use GI: BS +ve NO Bruit Non Tender somewhat Distended : no CVA tenderness; no Suprapubic Tenderness DIAGNOSIS/ASSESSMENT Assessment & Plan ESRD: Current fluid and E-lyte status does not necessitate emergent need for dialysis. Will re-evaluate for dialysis in the am and continue on TTSat schedule. Anemia: Epogen as ordered Transfuse with next HD as needed. HTN/ Hypotension: Current BP meds reviewed but are held. Suspect Dry weight will need to be changed from time to time depending on Hemodynamics and level of Ascites. Bone & Mineral: follow phos and alter binder regimen as needed based on PO intake and trend HypoKalemia - PO KCl Discussed Plan of Care and prognosis etc. at length with pt and RN Problems: COMMENT/RELEVANT DATA Meds Current Medications Medications (Trade) Dose Ordered Sig/Vijay Start Time Stop Time Status Last Admin Dose Admin Acetaminophen/ Hydrocodone Bitart (Lortab 5/325) 2 tab PRN Q6HRS PRN 03/15/17 08:15 03/15/17 08:26 DC Albumin Human 200 ml @ 200 mls/hr 1X PRN PRN 03/15/17 11:30 03/15/17 17:29 DC 03/15/17 13:40 200 MLS/HR Albuterol/ Ipratropium (Duoneb) 3 ml QID 03/15/17 09:00 03/15/17 19:50 3 ML Alprazolam (Xanax) 0.5 mg TID 03/15/17 15:00 03/16/17 07:48 0.5 MG Aspirin (Children'S Aspirin) 162 mg 1X ONCE 03/15/17 00:30 03/15/17 00:31 DC Aspirin (Ecotrin) 325 mg DAILYWBKFT 03/15/17 22:30 03/16/17 07:48 325 MG Clonidine HCl (Catapres) 0.2 mg DAILY 03/15/17 09:00 03/15/17 09:10 0.2 MG Dextrose (Dextrose 50%-Water Syringe) 12.5 gm PRN Q15MIN PRN 03/15/17 08:15 Ergocalciferol (Vitamin D2) 50,000 unit WEEKLY 03/22/17 09:00 Famotidine (Pepcid) 20 mg DAILY 03/15/17 09:00 03/16/17 07:48 20 MG Gabapentin (Neurontin) 100 mg DAILY 03/15/17 09:00 03/16/17 07:48 100 MG Hydralazine HCl (Apresoline) 10 mg PRN Q4HRS PRN 03/15/17 00:15 Info (PHARMACY MONITORING -- do not chart) 1 each PRN DAILY PRN 03/15/17 11:30 Insulin Aspart (NovoLOG) 20 units TIDAC 03/15/17 09:04 03/15/17 17:35 20 UNITS Insulin Detemir (Levemir) 50 units QHS 03/15/17 21:00 03/15/17 22:04 50 UNITS Isosorbide Mononitrate (Imdur) 30 mg DAILY 03/15/17 09:00 03/15/17 09:10 30 MG Levothyroxine Sodium (Synthroid) 175 mcg DAILYAC 03/16/17 07:30 03/16/17 07:48 175 MCG Lidocaine HCl (Xylocaine-Mpf 1% Vial) 2 ml 1X STAT 03/15/17 12:25 03/15/17 12:27 DC Lorazepam (Ativan) 1 mg 1X PRN PRN 03/15/17 00:15 Losartan Potassium (Cozaar) 100 mg DAILY 03/15/17 09:00 03/15/17 09:11 100 MG Metoprolol Succinate (Toprol Xl) 25 mg DAILY 03/15/17 09:00 03/15/17 09:11 25 MG Ondansetron HCl (Zofran Odt) 4 mg PRN Q6HRS PRN 03/15/17 08:30 Ondansetron HCl (Zofran) 4 mg PRN Q8HRS PRN 03/15/17 00:15 03/16/17 00:14 DC 03/15/17 05:17 4 MG Rifaximin (Xifaxan) 550 mg BID 03/15/17 09:00 03/16/17 07:48 550 MG Sertraline HCl (Zoloft) 50 mg DAILY 03/15/17 09:00 03/16/17 07:48 50 MG Sevelamer Carbonate (Renvela) 800 mg TIDWMEALS 03/15/17 09:00 03/16/17 07:48 800 MG Sodium Bicarbonate (Sodium Bicarbonate) 1,300 mg 3X/WEEK 03/17/17 09:00 Sodium Chloride 1,000 ml @ 500 mls/hr Q2H 03/15/17 19:15 03/15/17 22:22 DC 03/15/17 22:03 500 MLS/HR Zolpidem Tartrate (Ambien) 5 mg PRN QHS PRN 03/15/17 08:15 Lab Laboratory Tests Test 03/15/17 10:25 03/15/17 13:00 03/15/17 17:29 03/15/17 22:01 Glucose (Fingerstick) 194 mg/dL (70-99) 113 mg/dL (70-99) 130 mg/dL (70-99) Troponin I Quantitative < 0.017 ng/mL (0.000-0.055) Test 03/16/17 04:00 White Blood Count 2.4 x10^3/uL (4.0-11.0) Red Blood Count 3.03 x10^6/uL (3.50-5.40) Hemoglobin 9.1 g/dL (12.0-15.5) Hematocrit 26.1 % (36.0-47.0) Mean Corpuscular Volume 86 fL (79-100) Mean Corpuscular Hemoglobin 30 pg (25-35) Mean Corpuscular Hemoglobin Concent 35 g/dL (31-37) Red Cell Distribution Width 16.7 % (11.5-14.5) Platelet Count 49 x10^3/uL (140-400) Neutrophils (%) (Auto) 64 % (31-73) Lymphocytes (%) (Auto) 20 % (24-48) Monocytes (%) (Auto) 10 % (0-9) Eosinophils (%) (Auto) 5 % (0-3) Basophils (%) (Auto) 1 % (0-3) Neutrophils # (Auto) 1.6 x10^3uL (1.8-7.7) Lymphocytes # (Auto) 0.5 x10^3/uL (1.0-4.8) Monocytes # (Auto) 0.2 x10^3/uL (0.0-1.1) Eosinophils # (Auto) 0.1 x10^3/uL (0.0-0.7) Basophils # (Auto) 0.0 x10^3/uL (0.0-0.2) Sodium Level 140 mmol/L (136-145) Potassium Level 3.3 mmol/L (3.5-5.1) Chloride Level 105 mmol/L (98-107) Carbon Dioxide Level 29 mmol/L (21-32) Anion Gap 6 (6-14) Blood Urea Nitrogen 17 mg/dL (7-20) Creatinine 2.3 mg/dL (0.6-1.0) Estimated GFR (Cockcroft-Gault) 21.0 Glucose Level 80 mg/dL (70-99) Calcium Level 7.1 mg/dL (8.5-10.1) RALPH ALONZO MD Mar 16, 2017 07:54
[2017-03-16] MEDS ORDERED: POTASSIUM CHLORIDE 20 MEQ TABLET.ER. PO ONE ×2 (08:00→12:30)
[2017-03-16] MEDS ORDERED: MAGNESIUM SULFATE 2GM 50 ML IV PRN (08:00)
[2017-03-16 08:54] LABS: ANISOCYTOSIS SLIGHT; PLT ESTIMATE DECREASED (ADEQUATE)
[2017-03-16] MEDS: IPRATRPIUM/ALBUTEROL 0.5/2.5MG 3 ML NEBU. NEB SCH ×4 (09:47→21:02)
--- NOTE | 2017-03-16 10:20 | RAD ---
Indication:Abdominal distention and cirrhosis Grayscale images of the abdomen were obtained. Comparison note is made of a previous examination 11/18/2015 Liver:There is an abnormal contour of the liver. The appearance is compatible with the stated diagnosis of cirrhosis. A focal mass is not seen in the visualized liver. Gallbladder:Largely contracted. The common hepatic duct diameter of 7 mm is normal given the patient's age Spleen:Enlarged measuring approximately 18.4 cm in greatest dimension. No splenic mass was seen Pancreas:As visualized unremarkable. The entire body and tail were not seen. Kidneys:Normal Abdominal aorta and IVC:The most proximal abdominal aorta was seen and appeared unremarkable. The mid and distal abdominal aorta were obscured. The visualized inferior vena cava appeared normal Ancillary findings:Small amount of ascites Impression:Nodular liver and enlarged spleen compatible with the stated diagnosis of cirrhosis. Modest abdominal ascites. Midline structures largely obscured.
--- NOTE | 2017-03-16 14:05 | PDOC ---
PROGRESS NOTES Assessment Assessment Metabolic encephalopathy. Acute 2 tiny infarcts in right parietal WM and right frontal lobe. Seizures or seizure like episodes x 2 , new, related to acute metabolic condistion as hyperglycemia. Hyperglycemia, glucose level 747 DM, poorly controlled. Renal failure on dialysis. CHF COPD HTN HLD CMT Cirrhosis. Hypothyroidism UTI RECOMMENDATIONS/PLAN: Control hyperglycemia. Rehydration. ASA 325 mg daily. Carotid A US + Doppler. Echo + Bubble study. Fasting Lipid panel in a.m No AED is recommended at this time. Treat medical diseases. Dialysis. HISTORY OF THE PRESENT ILLNESS: 71-year-old female patient with above medical diseases had a seizure described as decreased mental status with left side facial abnormal twitching movements for several minutes observed by her . She was brought to the ER of [facility] and her glucode level revealed 747. She had 2 seizures or seizure like episodes per reports with postictal sleepiness. No history of seizure in the past. PAST MEDICAL HISTORY: Please see above. PAST SURGERY HISTORY: Cataract surgery. Carpal tunnel release surgery. Knee surgery. ALLERGY: Reviewed. MEDICATIONS: Refer to [facility] HISTORY: Non contributory. SOCIAL HISTORY: Lives with her at home. Denies current smoking, drinking, and illicit drug use. REVIEW OF SYSTEMS: Constitutional: No malnutrition, weight loss, cachexia. Head: No traumatic brain or head injury. Skin: No edema, or rash. Ear: No infection. Eyes: No vision loss or color blindness. Nose: No bleeding or purulent discharges. Hearing: No hearing decrease. Neck: No injury. Breast: No history of cancer, masses,or discharges. Cardiac: CHF, HTN, HLD. Pulmonary: COPD. GI: No GI ulcer, GI bleeding. Urinary/genital: UTI. Endocrinologic: Diabetes Mellitus Skeletomuscular: Generalized weakness. Neurological: see HP. Psychiatric: Denies drug use/abuse. Otherwise, not -dkncc review of systems. PHYSICAL EXAMINATION: General appearance is in subacute distress. HEENT: Normocephalic and nontraumatic. Eyes, nose, ears, and throat are unremarkable. Neck is supple. No lymphadenopathy. No bruits are heard over the carotid artery. No crepitus. Cardiovascular: S1, S2, regular rate and rhythm. Pulmonary: Clear to auscultation bilaterally. Abdomen: Bowel sounds are positive. Extremities: No rash, lesions, or edema. No restriction of range of motion NEUROLOGICAL EXAMINATION: Awake. Not fully oriented to time, but knows place and person. PERRL. EOMI. CN: no focal findings. Muscle tone: within normal. Muscle strength: 4+ DTR: 2 Plantar reflex: Neutral response bilaterally Gait: not examined in chair. Sensory exam: no abnormal findings. No cerebellar signs elicited. F-T-N test fine. Objective Objective Vital Signs Date Time Temp Pulse Resp B/P (MAP) Pulse Ox O2 Delivery O2 Flow Rate FiO2 03/16/17 12:22 Room Air 03/16/17 08:48 95 03/16/17 07:29 54 117/59 03/16/17 06:00 11 03/16/17 04:00 97.4 97.4 03/15/17 16:21 2.0 Intake and Output 03/16/17 07:00 Intake Total 1000 ml Output Total 405 ml Balance 595 ml IV Total 1000 ml Output Urine Total 405 ml Vitals Signs Vitals VS - Last 72 Hours, by Label Date Time Temp Pulse Resp B/P (MAP) Pulse Ox O2 Delivery O2 Flow Rate FiO2 03/16/17 12:22 Room Air 03/16/17 08:48 95 Room Air 03/16/17 07:29 54 117/59 03/16/17 07:29 55 117/55 03/16/17 07:28 54 117/55 03/16/17 07:28 54 117/55 03/16/17 06:00 54 11 136/59 (84) 95 Room Air 03/16/17 05:00 50 11 93/43 (60) 96 Room Air 03/16/17 04:30 50 11 95/44 (61) 96 Room Air 03/16/17 04:10 Room Air 03/16/17 04:00 97.4 50 11 85/43 (57) 96 Room Air 97.4 03/16/17 03:00 50 11 90/42 (58) 95 Room Air 03/16/17 02:00 50 11 81/40 (54) 95 Room Air 03/16/17 01:30 50 11 104/51 (68) 95 Room Air 03/16/17 01:00 52 11 80/42 (55) 95 Room Air 03/16/17 00:09 Room Air 03/16/17 00:00 97.4 52 12 87/43 (58) 95 Room Air 97.4 7/22/17 23:00 58 10 101/45 (63) 97 Room Air 03/15/17 22:00 60 10 121/51 (74) 95 Room Air 03/15/17 21:30 57 10 110/44 (66) 98 Room Air 03/15/17 21:15 56 10 109/55 (73) 96 Room Air 03/15/17 20:15 54 10 100 Room Air 03/15/17 20:00 50 10 97/45 (62) 97 Room Air 03/15/17 19:50 96 Room Air 03/15/17 19:45 Room Air 03/15/17 19:45 97.4 50 11 91/45 (60) 97 Room Air 97.4 03/15/17 19:30 54 10 94/44 (61) 95 Room Air 03/15/17 19:15 52 12 98/44 (62) 96 Room Air 03/15/17 19:00 54 12 85/40 (55) 97 Room Air 03/15/17 18:45 54 12 83/34 (50) 97 Room Air 03/15/17 16:21 98 Nasal Cannula 2.0 03/15/17 16:00 Room Air 03/15/17 15:00 54 10 84/36 (52) 97 03/15/17 13:02 98 Nasal Cannula 2.0 03/15/17 12:00 Room Air 03/15/17 11:00 64 10 108/59 (75) 97 03/15/17 09:11 73 165/60 03/15/17 09:11 73 165/60 03/15/17 09:10 73 165/60 03/15/17 09:10 73 165/60 03/15/17 08:00 70 10 153/71 (98) 97 03/15/17 08:00 Room Air Laboratory Laboratory Laboratory Tests Test 03/15/17 17:29 03/15/17 22:01 03/16/17 04:00 03/16/17 12:26 Glucose (Fingerstick) 113 mg/dL (70-99) 130 mg/dL (70-99) 126 mg/dL (70-99) White Blood Count 2.4 x10^3/uL (4.0-11.0) Red Blood Count 3.03 x10^6/uL (3.50-5.40) Hemoglobin 9.1 g/dL (12.0-15.5) Hematocrit 26.1 % (36.0-47.0) Mean Corpuscular Volume 86 fL (79-100) Mean Corpuscular Hemoglobin 30 pg (25-35) Mean Corpuscular Hemoglobin Concent 35 g/dL (31-37) Red Cell Distribution Width 16.7 % (11.5-14.5) Platelet Count 49 x10^3/uL (140-400) Neutrophils (%) (Auto) 64 % (31-73) Lymphocytes (%) (Auto) 20 % (24-48) Monocytes (%) (Auto) 10 % (0-9) Eosinophils (%) (Auto) 5 % (0-3) Basophils (%) (Auto) 1 % (0-3) Neutrophils # (Auto) 1.6 x10^3uL (1.8-7.7) Lymphocytes # (Auto) 0.5 x10^3/uL (1.0-4.8) Monocytes # (Auto) 0.2 x10^3/uL (0.0-1.1) Eosinophils # (Auto) 0.1 x10^3/uL (0.0-0.7) Basophils # (Auto) 0.0 x10^3/uL (0.0-0.2) Platelet Estimate Decreased (ADEQUATE) Anisocytosis Slight Sodium Level 140 mmol/L (136-145) Potassium Level 3.3 mmol/L (3.5-5.1) Chloride Level 105 mmol/L (98-107) Carbon Dioxide Level 29 mmol/L (21-32) Anion Gap 6 (6-14) Blood Urea Nitrogen 17 mg/dL (7-20) Creatinine 2.3 mg/dL (0.6-1.0) Estimated GFR (Cockcroft-Gault) 21.0 Glucose Level 80 mg/dL (70-99) Calcium Level 7.1 mg/dL (8.5-10.1) Microbiology 03/14/17 Urine Culture - Preliminary, Resulted 03/14/17 Urine Culture Result 1 (DARIN) - Preliminary, Resulted Medication Medications Current Medications Alprazolam (Xanax) 0.5 mg TID PO Last administered on 03/16/17t 07:48; Start at 15:00 Aspirin (Ecotrin) 325 mg DAILYWBKFT PO Last administered on 03/16/17 07:48; Start 03/15/17 at 22:30 Darbepoetin Brandan (Aranesp) 60 mcg WEEKLYHS SQ ; Start 03/16/17 at 21:00 Ergocalciferol (Vitamin D2) 50,000 unit WEEKLY PO ; Start 03/22/17 at 09:00 Insulin Detemir (Levemir) 50 units QHS SQ Last administered on 03/15/17 22:04 ; Start 03/15/17 at 21:00 Levothyroxine Sodium (Synthroid) 175 mcg DAILYAC PO Last administered on 07:48; Start 03/16/17 at 07:30 Magnesium Sulfate/ Dextrose 50 ml @ 25 mls/hr PRN DAILY PRN IV for Mag < 1.7 on am labs; Start 03/16/17 at 08:00 Potassium Chloride (Klor-Con) 40 meq 1X ONCE PO Last administered on 08:22; Start 03/16/17 at 08:00; Stop 03/16/17 at 08:04; Status DC Potassium Chloride (Klor-Con) 40 meq 1X ONCE PO ; Start 03/16/17 at 12:30; Stop 03/16/17 at 12:31; Status DC Sodium Bicarbonate (Sodium Bicarbonate) 1,300 mg 3X/WEEK PO ; Start 03/17/17 at 09:00 Sodium Chloride 1,000 ml @ 500 mls/hr Q2H IV Last administered on 03/15/17 22 :03; Start 03/15/17 at 19:15; Stop 03/15/17 at 22:22; Status DC Comment Review of Relevant I have reviewed the following items karyn (where applicable) has been applied. GARY LOPES MD Mar 16, 2017 14:05
--- NOTE | 2017-03-16 16:32 | RAD ---
Indication CVA. Grayscale color Doppler and spectral imaging targeted to the carotid bifurcations was performed. On the right there is modest plaquing at the bifurcation. The color Doppler images do not suggest significant turbulence. The common carotid is tortuous. Waveforms associated with the common carotid are unremarkable. The external carotid has a normal appearance. The internal carotid, similar to the common carotid, is tortuous. The peak systolic and diastolic values are within normal limits. The vertebral is patent and demonstrates normal directional flow. On the left there is no significant turbulence suggested on the color images. There is some modest plaquing at the bifurcation. The common carotid waveform and velocities are normal. The external carotid artery has a modestly elevated peak systolic velocity compatible with mild incidental stenosis in this vessel. The internal carotid waveform and velocities are normal. The vertebral is patent and demonstrates normal directional flow. There is an elevated peak velocity associated with the right subclavian artery of approximately 217 cm/s suggesting a stenotic component in this vessel. IMPRESSION: Mild atherosclerotic plaquing involving both carotid bifurcations. No evidence of hemodynamically significant stenosis involving the common or internal carotid arteries bilaterally. Stenosis 0-50%. Suggested mild stenosis associated with the right subclavian artery Note: Stenosis calculations for CT, MR and conventional angiography are based upon determination of the distal ICA diameter in accordance with the NASCET methodology. Stenosis calculations for doppler studies are derived from validated velocity criteria which are known to correlate with NASCET methodology of determining stenosis.
[2017-03-16] MEDS ORDERED: DARBEPOETIN ALFA 60 MCG/0.3 ML DISP.SYRIN. SQ SCH (21:00)
[2017-03-16] MEDS: ZOLPIDEM 5 MG TABLET. PO PRN (21:09)
[2017-03-16] MEDS: INSULIN DETEMIR 300 UNITS/3 ML INSULN.PEN. SQ SCH (21:10)
[2017-03-17 00:50] VITALS: BP 134/50
[2017-03-17 06:21] VITALS: BP 120/50
[2017-03-17 07:15] LABS: ALBUMIN 2.4 g/dL (3.4-5.0); CALCIUM 7.7 mg/dL (8.5-10.1); CREATININE 3.3 mg/dL (0.6-1.0); GFR 13.8; PHOSPHORUS 3.9 mg/dL (2.6-4.7)
[2017-03-17 07:18] LABS: CHOLESTEROL/HDL RATIO 1.8
[2017-03-17 08:00] VITALS: BP 149/78
[2017-03-17] MEDS: IPRATRPIUM/ALBUTEROL 0.5/2.5MG 3 ML NEBU. NEB SCH ×4 (08:12→20:01)
[2017-03-17] MEDS ORDERED: SODIUM BICARBONATE 650 MG TABLET. PO SCH (09:00)
[2017-03-17] MEDS ORDERED: MAGNESIUM SULFATE 2GM 50 ML IV ONE (09:30)
[2017-03-17] MEDS: ISOSORBIDE MONONITRATE ER 30 MG TAB.ER.24H PO SCH (09:36)
[2017-03-17] MEDS: ALPRAZolam 0.5 MG TABLET PO SCH ×3 (09:37→22:51)
[2017-03-17] MEDS: GABAPENTIN 100 MG CAPSULE. PO SCH (09:37)
[2017-03-17] MEDS: ASPIRIN ENTERIC COATED 325 MG TABLET.DR. PO SCH (09:37)
[2017-03-17] MEDS: SERTRALINE 50 MG TABLET. PO SCH (09:37)
[2017-03-17] MEDS: SEVELAMER CARBONATE 800 MG TABLET. PO SCH ×3 (09:37→17:24)
[2017-03-17] MEDS: rifAXIMin 550 MG TABLET PO SCH ×2 (09:37→22:51)
[2017-03-17] MEDS: FAMOTIDINE 20 MG TABLET. PO SCH (09:38)
[2017-03-17] MEDS: METOPROLOL SUCC 24HR ER 25 MG TAB.ER.24H. PO SCH (09:38)
[2017-03-17] MEDS: LOSARTAN POTASSIUM 50 MG TABLET. PO SCH (09:38)
[2017-03-17] MEDS: INSULIN ASPART 300 UNITS/3 ML INSULN.PEN SQ SCH ×6 (09:43→17:00)
--- NOTE | 2017-03-17 10:14 | PDOC ---
PROGRESS NOTES Assessment Problems Medical Problems: (1) Seizure Status: Acute Metabolic encephalopathy. Acute 2 tiny infarcts in right parietal WM and right frontal lobe. Seizures or seizure like episodes x 2 , new, related to acute metabolic condistion as hyperglycemia. Hyperglycemia, glucose level 747 DM, poorly controlled. Renal failure on dialysis. CHF COPD HTN HLD CMT Cirrhosis. Hypothyroidism UTI Objective Vital Signs Date Time Temp Pulse Resp B/P (MAP) Pulse Ox O2 Delivery O2 Flow Rate FiO2 03/17/17 09:38 75 149/57 03/17/17 08:12 Room Air 03/17/17 06:21 98.2 14 95 98.2 Intake and Output 03/17/17 07:00 Output Total 75 ml Balance -75 ml Output Urine Total 75 ml # Voids 1 PHYSICAL EXAM Alert. Oriented to place and person, Not time. PERRL. EOMI. CN: no focal findings. Muscle tone: normal. Muscle strength: 4/5 DTR: 2+ Plantar reflex: flexor Gait: not examined in bed. Sensory exam: no abnormal findings. No cerebellar signs elicited. Review of Relevant I have reviewed the following items karyn (where applicable) has been applied. Labs Laboratory Tests Test 03/15/17 10:25 03/15/17 13:00 03/15/17 17:29 03/15/17 22:01 Glucose (Fingerstick) 194 mg/dL (70-99) 113 mg/dL (70-99) 130 mg/dL (70-99) Troponin I Quantitative < 0.017 ng/mL (0.000-0.055) Test 03/16/17 04:00 03/16/17 12:26 03/16/17 17:15 03/16/17 21:01 White Blood Count 2.4 x10^3/uL (4.0-11.0) Red Blood Count 3.03 x10^6/uL (3.50-5.40) Hemoglobin 9.1 g/dL (12.0-15.5) Hematocrit 26.1 % (36.0-47.0) Mean Corpuscular Volume 86 fL (79-100) Mean Corpuscular Hemoglobin 30 pg (25-35) Mean Corpuscular Hemoglobin Concent 35 g/dL (31-37) Red Cell Distribution Width 16.7 % (11.5-14.5) Platelet Count 49 x10^3/uL (140-400) Neutrophils (%) (Auto) 64 % (31-73) Lymphocytes (%) (Auto) 20 % (24-48) Monocytes (%) (Auto) 10 % (0-9) Eosinophils (%) (Auto) 5 % (0-3) Basophils (%) (Auto) 1 % (0-3) Neutrophils # (Auto) 1.6 x10^3uL (1.8-7.7) Lymphocytes # (Auto) 0.5 x10^3/uL (1.0-4.8) Monocytes # (Auto) 0.2 x10^3/uL (0.0-1.1) Eosinophils # (Auto) 0.1 x10^3/uL (0.0-0.7) Basophils # (Auto) 0.0 x10^3/uL (0.0-0.2) Platelet Estimate Decreased (ADEQUATE) Anisocytosis Slight Sodium Level 140 mmol/L (136-145) Potassium Level 3.3 mmol/L (3.5-5.1) Chloride Level 105 mmol/L (98-107) Carbon Dioxide Level 29 mmol/L (21-32) Anion Gap 6 (6-14) Blood Urea Nitrogen 17 mg/dL (7-20) Creatinine 2.3 mg/dL (0.6-1.0) Estimated GFR (Cockcroft-Gault) 21.0 Glucose Level 80 mg/dL (70-99) Calcium Level 7.1 mg/dL (8.5-10.1) Glucose (Fingerstick) 126 mg/dL (70-99) 215 mg/dL (70-99) 187 mg/dL (70-99) Test 03/17/17 06:45 03/17/17 08:10 Hemoglobin 8.9 g/dL (12.0-15.5) Sodium Level 136 mmol/L (136-145) Potassium Level 4.0 mmol/L (3.5-5.1) Chloride Level 101 mmol/L (98-107) Carbon Dioxide Level 29 mmol/L (21-32) Anion Gap 6 (6-14) Blood Urea Nitrogen 28 mg/dL (7-20) Creatinine 3.3 mg/dL (0.6-1.0) Estimated GFR (Cockcroft-Gault) 13.8 Glucose Level 181 mg/dL (70-99) Calcium Level 7.7 mg/dL (8.5-10.1) Phosphorus Level 3.9 mg/dL (2.6-4.7) Magnesium Level 1.7 mg/dL (1.8-2.4) Albumin 2.4 g/dL (3.4-5.0) Triglycerides Level 40 mg/dL (0-150) Cholesterol Level 83 mg/dL (0-200) LDL Cholesterol, Calculated 29 mg/dL (0-100) VLDL Cholesterol, Calculated 8 mg/dL (0-40) Non-HDL Cholesterol Calculated 37 mg/dL (0-129) HDL Cholesterol 46 mg/dL (40-60) Cholesterol/HDL Ratio 1.8 Glucose (Fingerstick) 168 mg/dL (70-99) Laboratory Tests Test 03/16/17 12:26 03/16/17 17:15 03/16/17 21:01 03/17/17 06:45 Glucose (Fingerstick) 126 mg/dL (70-99) 215 mg/dL (70-99) 187 mg/dL (70-99) Hemoglobin 8.9 g/dL (12.0-15.5) Sodium Level 136 mmol/L (136-145) Potassium Level 4.0 mmol/L (3.5-5.1) Chloride Level 101 mmol/L (98-107) Carbon Dioxide Level 29 mmol/L (21-32) Anion Gap 6 (6-14) Blood Urea Nitrogen 28 mg/dL (7-20) Creatinine 3.3 mg/dL (0.6-1.0) Estimated GFR (Cockcroft-Gault) 13.8 Glucose Level 181 mg/dL (70-99) Calcium Level 7.7 mg/dL (8.5-10.1) Phosphorus Level 3.9 mg/dL (2.6-4.7) Magnesium Level 1.7 mg/dL (1.8-2.4) Albumin 2.4 g/dL (3.4-5.0) Triglycerides Level 40 mg/dL (0-150) Cholesterol Level 83 mg/dL (0-200) LDL Cholesterol, Calculated 29 mg/dL (0-100) VLDL Cholesterol, Calculated 8 mg/dL (0-40) Non-HDL Cholesterol Calculated 37 mg/dL (0-129) HDL Cholesterol 46 mg/dL (40-60) Cholesterol/HDL Ratio 1.8 Test 03/17/17 08:10 Glucose (Fingerstick) 168 mg/dL (70-99) Microbiology 03/14/17 Urine Culture - Final, Complete 03/14/17 Urine Culture Result 1 (DARIN) - Final, Complete Medications Current Medications Sodium Chloride 1,000 ml @ 1,000 mls/hr 1X ONCE IV Last administered on 22:23; Start 03/14/17 at 22:30; Stop 03/14/17 at 23:29; Status DC Hydralazine HCl (Apresoline) 10 mg 1X ONCE IVP Last administered on 03/14/17 22:25; Start 03/14/17 at 22:30; Stop 03/14/17 at 22:31; Status DC Insulin Aspart (NovoLOG) 30 units 1X ONCE SQ ; Start 03/14/17 at 22:00; Stop at 22:01; Status UNV Insulin Aspart (NovoLOG) 20 units 1X ONCE SQ Last administered on 03/14/17 22 :31; Start 03/14/17 at 22:30; Stop 03/14/17 at 22:31; Status DC Lorazepam (Ativan) 2 mg STK-MED ONCE .ROUTE ; Start 03/14/17 at 22:32; Stop at 22:33; Status DC Lorazepam (Ativan) 1 mg 1X ONCE IV Last administered on 03/14/17 22:36; Start 03/14/17 at 23:00; Stop 03/14/17 at 23:01; Status DC Ondansetron HCl (Zofran) 4 mg PRN Q8HRS PRN IV NAUSEA/VOMITING Last administered on 03/15/17 05:17; Start 03/15/17 at 00:15; Stop 03/16/17 at 00:14 ; Status DC Lorazepam (Ativan) 1 mg 1X PRN PRN IV seizure; Start 03/15/17 at 00:15 Hydralazine HCl (Apresoline) 10 mg PRN Q4HRS PRN IVP ELEVATED BP, SEE COMMENTS ; Start 03/15/17 at 00:15 Aspirin (Children'S Aspirin) 162 mg 1X ONCE PO ; Start 03/15/17 at 00:30; Stop 03/15/17 at 00:31; Status DC Insulin Aspart (NovoLOG) 30 units 1X ONCE SQ Last administered on 03/15/17 02 :37; Start 03/15/17 at 02:00; Stop 03/15/17 at 02:01; Status DC Acetaminophen/ Hydrocodone Bitart (Lortab 5/325) 1 tab PRN Q6HRS PRN PO MODERATE PAIN; Start 03/15/17 at 05:15 Acetaminophen/ Hydrocodone Bitart (Lortab 5/325) 2 tab PRN Q6HRS PRN PO SEVERE PAIN Last administered on 03/15/17 05:40; Start 03/15/17 at 05:15 Alprazolam (Xanax) 0.5 mg DAILY PO Last administered on 03/15/17 09:11; Start 03/15/17 at 09:00; Stop 03/15/17 at 14:46; Status DC Clonidine HCl (Catapres) 0.2 mg DAILY PO Last administered on 03/15/17 09:10; Start 03/15/17 at 09:00; Stop 03/16/17 at 07:54; Status DC Famotidine (Pepcid) 20 mg DAILY PO Last administered on 03/17/17 09:38; Start 03/15/17 at 09:00 Gabapentin (Neurontin) 100 mg DAILY PO Last administered on 03/17/17 09:37; Start 03/15/17 at 09:00 Acetaminophen/ Hydrocodone Bitart (Lortab 5/325) 1 tab PRN Q6HRS PRN PO PAIN; Start 03/15/17 at 08:15; Stop 03/15/17 at 08:26; Status DC Acetaminophen/ Hydrocodone Bitart (Lortab 5/325) 2 tab PRN Q6HRS PRN PO PAIN; Start 03/15/17 at 08:15; Stop 03/15/17 at 08:26; Status DC Albuterol/ Ipratropium (Duoneb) 3 ml QID NEB Last administered on 03/17/17 08: 12; Start 03/15/17 at 09:00 Levothyroxine Sodium (Synthroid) 175 mcg DAILYAC PO Last administered on 07:48; Start 03/16/17 at 07:30 Metoprolol Succinate (Toprol Xl) 25 mg DAILY PO Last administered on 03/17/17 09:38; Start 03/15/17 at 09:00 Rifaximin (Xifaxan) 550 mg BID PO Last administered on 03/17/17 09:37; Start 03/15/17 at 09:00 Sertraline HCl (Zoloft) 50 mg DAILY PO Last administered on 03/17/17 09:37; Start 03/15/17 at 09:00 Sevelamer Carbonate (Renvela) 800 mg TIDWMEALS PO Last administered on 09:37; Start 03/15/17 at 09:00 Sodium Bicarbonate (Sodium Bicarbonate) 1,300 mg 3X/WEEK PO Last administered on 03/17/17 09:37; Start 03/17/17 at 09:00 Zolpidem Tartrate (Ambien) 5 mg PRN QHS PRN PO INSOMNIA Last administered on 21:09; Start 03/15/17 at 08:15 Ergocalciferol (Vitamin D2) 50,000 unit WEEKLY PO ; Start 03/22/17 at 09:00 Insulin Detemir (Levemir) 50 units QHS SQ Last administered on 03/16/17 21:10 ; Start 03/15/17 at 21:00 Isosorbide Mononitrate (Imdur) 30 mg DAILY PO Last administered on 03/17/17 09 :36; Start 03/15/17 at 09:00 Losartan Potassium (Cozaar) 100 mg DAILY PO Last administered on 03/17/17 09: 38; Start 03/15/17 at 09:00 Ondansetron HCl (Zofran Odt) 4 mg PRN Q6HRS PRN PO NAUSEA/VOMITING; Start 03/15 at 08:30 Insulin Aspart (NovoLOG) 0-9 UNITS TIDWMEALS SQ Last administered on 03/17/17 09:43; Start 03/15/17 at 09:03 Dextrose (Dextrose 50%-Water Syringe) 12.5 gm PRN Q15MIN PRN IV SEE COMMENTS; Start 03/15/17 at 08:15 Insulin Aspart (NovoLOG) 15 units TIDAC SQ ; Start 03/15/17 at 11:30; Stop 03/15 at 11:30; Status DC Insulin Aspart (NovoLOG) 20 units TIDAC SQ Last administered on 03/17/17 09:43 ; Start 03/15/17 at 09:04 Sodium Chloride 1,000 ml @ 1,000 mls/hr Q1H PRN IV hypotension; Start 03/15/17 at 11:23; Stop 03/15/17 at 17:22; Status DC Albumin Human 200 ml @ 200 mls/hr 1X PRN PRN IV Hypotension Last administered on 03/15/17 13:40; Start 03/15/17 at 11:30; Stop 03/15/17 at 17:29; Status DC Info (PHARMACY MONITORING -- do not chart) 1 each PRN DAILY PRN MC SEE COMMENTS ; Start 03/15/17 at 11:30 Lidocaine HCl (Xylocaine-Mpf 1% Vial) 2 ml 1X STAT INJ ; Start 03/15/17 at 12: 25; Stop 03/15/17 at 12:27; Status DC Alprazolam (Xanax) 0.5 mg TID PO Last administered on 03/17/17 09:37; Start at 15:00 Sodium Chloride 1,000 ml @ 500 mls/hr Q2H IV Last administered on 03/15/17 22 :03; Start 03/15/17 at 19:15; Stop 03/15/17 at 22:22; Status DC Aspirin (Ecotrin) 325 mg DAILYWBKFT PO Last administered on 03/17/17 09:37; Start 03/15/17 at 22:30 Darbepoetin Brandan (Aranesp) 60 mcg WEEKLYHS SQ Last administered on 03/16/17 21 :08; Start 03/16/17 at 21:00 Potassium Chloride (Klor-Con) 40 meq 1X ONCE PO Last administered on 08:22; Start 03/16/17 at 08:00; Stop 03/16/17 at 08:04; Status DC Magnesium Sulfate/ Dextrose 50 ml @ 25 mls/hr PRN DAILY PRN IV for Mag < 1.7 on am labs; Start 03/16/17 at 08:00 Potassium Chloride (Klor-Con) 40 meq 1X ONCE PO ; Start 03/16/17 at 12:30; Stop 03/16/17 at 12:31; Status DC Magnesium Sulfate/ Dextrose 50 ml @ 25 mls/hr 1X ONCE IV ; Start 03/17/17 at 09 :30; Stop 03/17/17 at 11:29 Active Scripts Active Hydrocodone-Apap 5-325 (Hydrocodone Bit/Acetaminophen) 1 Each Tablet 1 Tab PO PRN Q6HRS PRN Reported Hydrocodone-Apap 5-325 (Hydrocodone Bit/Acetaminophen) 1 Each Tablet 2 Tab PO PRN Q6HRS PRN Alprazolam 0.5 Mg Tablet 1 Tab PO DAILY Clonidine Hcl 0.2 Mg Tablet 0.2 Mg PO DAILY Gabapentin 100 Mg Capsule 100 Mg PO DAILY Sodium Bicarbonate 650 Mg Tablet 1,300 Mg PO 3X/WEEK Zoloft (Sertraline Hcl) 50 Mg Tablet 50 Mg PO DAILY Renvela (Sevelamer Carbonate) 800 Mg Tablet 1 Tab PO TIDWMEALS Losartan Potassium 100 Mg Tablet 100 Mg PO DAILY Levothyroxine Sodium 175 Mcg Tablet 175 Mcg PO DAILYAC Lactulose 20 Gm/30 Ml Solution 10 Gm PO PRN BID Dialyvite [place] D Tablet (Multivitamin, Min Cmb#25/Fa/D3) 1 Each Tablet 1 Each PO DAILY Vitamin D3 (Cholecalciferol (Vitamin D3)) 5,000 Unit Tablet 50,000 Unit PO WEEKLY Benadryl (Diphenhydramine Hcl) 25 Mg Capsule 1 Cap PO QHS PRN Duoneb 0.5-3(2.5) Mg/3 Ml (Albuterol/Ipratropium) 3 Ml Ampul.neb 3 Ml NEB QID Metoprolol Succinate ( Xl ) (Metoprolol Succinate) 25 Mg Tab.er.24h 25 Mg PO DAILY Lantus Solostar (Insulin Glargine,Hum.rec.anlog) 100 Unit/1 Ml Insuln.pen 50 Unit SQ QHS Humalog Kwikpen (Insulin Lispro) 200 Unit/1 Ml Insuln.pen 20-30 Unit SQ TID Ondansetron Hcl 4 Mg Tablet 4 Mg PO Q6HRS PRN Zolpidem Tartrate 5 Mg Tablet 5 Mg PO PRN QHS PRN Famotidine 20 Mg Tablet 20 Mg PO DAILY Voltaren (Diclofenac Sodium) 100 Gm Gel..gram. 1 Gm TP TID Xifaxan (Rifaximin) 550 Mg Tablet 1 Tab PO BID Isosorbide Dinitrate 30 Mg Tablet 1 Tab PO DAILY Vitals/I & O Vital Sign - Last 24 Hours 03/16/17 03/16/17 03/16/17 03/16/17 11:00 12:22 13:00 15:00 Pulse 58 68 68 Resp 11 11 11 B/P (MAP) 126/56 (79) 114/44 (67) 114/44 (67) Pulse Ox 95 95 95 O2 Delivery Room Air Room Air Room Air Room Air 03/16/17 03/16/17 03/16/17 03/16/17 16:16 20:00 20:00 21:03 Temp 98.2 98.2 Pulse 65 Resp 14 B/P (MAP) 138/53 (81) Pulse Ox 98 O2 Delivery Room Air Room Air Room Air Room Air 03/17/17 03/17/17 03/17/17 03/17/17 00:50 06:21 08:12 09:36 Temp 98.2 98.2 98.2 98.2 Pulse 67 75 74 Resp 14 14 B/P (MAP) 134/50 (78) 120/50 (73) 149/57 Pulse Ox 97 95 O2 Delivery Room Air Room Air Room Air 03/17/17 03/17/17 09:38 09:38 Pulse 73 75 B/P (MAP) 149/57 149/57 Intake and Output 03/16/17 03/16/17 03/17/17 15:00 23:00 07:00 Output Total 75 ml Balance -75 ml JUAN MEJIAS MD Mar 17, 2017 10:14
--- NOTE | 2017-03-17 11:12 | PDOC ---
Renal-Progress Notes Subjective Notes Notes NONE History of Present Illness Hx of present illness STABLE Vitals Vitals Vital Signs Date Time Temp Pulse Resp B/P (MAP) Pulse Ox O2 Delivery O2 Flow Rate FiO2 03/17/17 09:38 75 149/57 03/17/17 08:12 Room Air 03/17/17 08:00 98.0 22 95 98.0 Weight Weight [ ] I.O. Intake and Output Intake and Output 03/17/17 07:00 Output Total 75 ml Balance -75 ml Output Urine Total 75 ml # Voids 1 Labs Labs Laboratory Tests Test 03/16/17 12:26 03/16/17 17:15 03/16/17 21:01 03/17/17 06:45 Glucose (Fingerstick) 126 mg/dL (70-99) 215 mg/dL (70-99) 187 mg/dL (70-99) Hemoglobin 8.9 g/dL (12.0-15.5) Sodium Level 136 mmol/L (136-145) Potassium Level 4.0 mmol/L (3.5-5.1) Chloride Level 101 mmol/L (98-107) Carbon Dioxide Level 29 mmol/L (21-32) Anion Gap 6 (6-14) Blood Urea Nitrogen 28 mg/dL (7-20) Creatinine 3.3 mg/dL (0.6-1.0) Estimated GFR (Cockcroft-Gault) 13.8 Glucose Level 181 mg/dL (70-99) Calcium Level 7.7 mg/dL (8.5-10.1) Phosphorus Level 3.9 mg/dL (2.6-4.7) Magnesium Level 1.7 mg/dL (1.8-2.4) Albumin 2.4 g/dL (3.4-5.0) Triglycerides Level 40 mg/dL (0-150) Cholesterol Level 83 mg/dL (0-200) LDL Cholesterol, Calculated 29 mg/dL (0-100) VLDL Cholesterol, Calculated 8 mg/dL (0-40) Non-HDL Cholesterol Calculated 37 mg/dL (0-129) HDL Cholesterol 46 mg/dL (40-60) Cholesterol/HDL Ratio 1.8 Test 03/17/17 08:10 Glucose (Fingerstick) 168 mg/dL (70-99) Micro Micro Microbiology 03/14/17 Urine Culture - Final, Complete 03/14/17 Urine Culture Result 1 (DARIN) - Final, Complete Review of Systems Constitutional: yes: alert, oriented Ears/Nose/Throat: Yes: no symptom reported Eyes: Yes: no symptom reported Cardiovascular: Yes edema Gastrointestional: Yes: constipation Musculoskeletal: Yes: muscle stiffness Skin: Yes no symptom reported Psychiatric/Neurological: Yes: no symptom reported Physical Exam General Appearance: no apparent distress Respiratory: bilateral CTA Heart: S1S2, RRR Abdomen: soft, bowel sounds present Extremities: pulses present Neurology: alert, oriented Musculoskeletal: Osteoarthritis, Other Assessment Assessment IMP SEIZURE HYPERGLYCEMIA ANEMIA ESRD COPD CHF PLAN CONT ARANESP HD TOMORROW LABS IN AM OPAL RUBI MD Mar 17, 2017 11:12
[2017-03-17 12:00] VITALS: BP 125/49
--- NOTE | 2017-03-17 13:36 | PDOC ---
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 Hypertension Ascites with nonalcoholic cirrhosis Hypokalemia hypomagnesemia MRI brain showed 2 small acute stroke Plan Blood sugars are improving with sliding scale continue current regimen and home dose insulin Consult to interventional radiology for paracentesis Hemodialysis as per nephrology Patient continued to have pancytopenia which has been chronic likely due to cirrhosis and splenomegaly Her MRI showed a questionable a acute or /subacute CVA, neurology following no EEG Echocardiogram and ultrasound carotid pending Physical therapy and occupational therapy Replace potassium replete Mag ok transfer out of ICU History of Present Illness History of Present Illness No seizure-like activity noted, patient is feeling better, no fever no chills no nausea or vomiting except for mild distention of the abdomen bl leg swelling chronic abd mild distended, with chronic ascites bl shaky thighs and fingers, otherwise no obvious neurologic deficit from acute small strokes Vitals Vitals Vital Signs Date Time Temp Pulse Resp B/P (MAP) Pulse Ox O2 Delivery O2 Flow Rate FiO2 03/17/17 13:05 95 Room Air 03/17/17 12:00 98.2 69 20 125/49 (74) 98.2 Physical Exam General: Alert, Oriented X3, Cooperative Heart: Normal S1, Normal S2 Lungs: Clear Abdomen: Normal bowel sounds, Other (abdomen distended with umbilical hernia) Extremities: No clubbing, No cyanosis, Other (bl leg 3+ edema) Skin: Other (chronic edema with rash and lower extremities) Labs LABS Laboratory Tests Test 03/16/17 17:15 03/16/17 21:01 03/17/17 06:45 03/17/17 08:10 Glucose (Fingerstick) 215 mg/dL (70-99) 187 mg/dL (70-99) 168 mg/dL (70-99) Hemoglobin 8.9 g/dL (12.0-15.5) Sodium Level 136 mmol/L (136-145) Potassium Level 4.0 mmol/L (3.5-5.1) Chloride Level 101 mmol/L (98-107) Carbon Dioxide Level 29 mmol/L (21-32) Anion Gap 6 (6-14) Blood Urea Nitrogen 28 mg/dL (7-20) Creatinine 3.3 mg/dL (0.6-1.0) Estimated GFR (Cockcroft-Gault) 13.8 Glucose Level 181 mg/dL (70-99) Calcium Level 7.7 mg/dL (8.5-10.1) Phosphorus Level 3.9 mg/dL (2.6-4.7) Magnesium Level 1.7 mg/dL (1.8-2.4) Albumin 2.4 g/dL (3.4-5.0) Triglycerides Level 40 mg/dL (0-150) Cholesterol Level 83 mg/dL (0-200) LDL Cholesterol, Calculated 29 mg/dL (0-100) VLDL Cholesterol, Calculated 8 mg/dL (0-40) Non-HDL Cholesterol Calculated 37 mg/dL (0-129) HDL Cholesterol 46 mg/dL (40-60) Cholesterol/HDL Ratio 1.8 Test 03/17/17 11:41 Glucose (Fingerstick) 155 mg/dL (70-99) Review of Systems Review of Systems no fever, chills, sob or chest pain Assessment and Plan Assessmemt and Plan Problems Medical Problems: (1) Seizure Status: Acute Problems: Comment Review of Relevant I have reviewed the following items karyn (where applicable) has been applied. Labs Laboratory Tests Test 03/15/17 17:29 03/15/17 22:01 03/16/17 04:00 03/16/17 12:26 Glucose (Fingerstick) 113 mg/dL (70-99) 130 mg/dL (70-99) 126 mg/dL (70-99) White Blood Count 2.4 x10^3/uL (4.0-11.0) Red Blood Count 3.03 x10^6/uL (3.50-5.40) Hemoglobin 9.1 g/dL (12.0-15.5) Hematocrit 26.1 % (36.0-47.0) Mean Corpuscular Volume 86 fL (79-100) Mean Corpuscular Hemoglobin 30 pg (25-35) Mean Corpuscular Hemoglobin Concent 35 g/dL (31-37) Red Cell Distribution Width 16.7 % (11.5-14.5) Platelet Count 49 x10^3/uL (140-400) Neutrophils (%) (Auto) 64 % (31-73) Lymphocytes (%) (Auto) 20 % (24-48) Monocytes (%) (Auto) 10 % (0-9) Eosinophils (%) (Auto) 5 % (0-3) Basophils (%) (Auto) 1 % (0-3) Neutrophils # (Auto) 1.6 x10^3uL (1.8-7.7) Lymphocytes # (Auto) 0.5 x10^3/uL (1.0-4.8) Monocytes # (Auto) 0.2 x10^3/uL (0.0-1.1) Eosinophils # (Auto) 0.1 x10^3/uL (0.0-0.7) Basophils # (Auto) 0.0 x10^3/uL (0.0-0.2) Platelet Estimate Decreased (ADEQUATE) Anisocytosis Slight Sodium Level 140 mmol/L (136-145) Potassium Level 3.3 mmol/L (3.5-5.1) Chloride Level 105 mmol/L (98-107) Carbon Dioxide Level 29 mmol/L (21-32) Anion Gap 6 (6-14) Blood Urea Nitrogen 17 mg/dL (7-20) Creatinine 2.3 mg/dL (0.6-1.0) Estimated GFR (Cockcroft-Gault) 21.0 Glucose Level 80 mg/dL (70-99) Calcium Level 7.1 mg/dL (8.5-10.1) Test 03/16/17 17:15 03/16/17 21:01 03/17/17 06:45 03/17/17 08:10 Glucose (Fingerstick) 215 mg/dL (70-99) 187 mg/dL (70-99) 168 mg/dL (70-99) Hemoglobin 8.9 g/dL (12.0-15.5) Sodium Level 136 mmol/L (136-145) Potassium Level 4.0 mmol/L (3.5-5.1) Chloride Level 101 mmol/L (98-107) Carbon Dioxide Level 29 mmol/L (21-32) Anion Gap 6 (6-14) Blood Urea Nitrogen 28 mg/dL (7-20) Creatinine 3.3 mg/dL (0.6-1.0) Estimated GFR (Cockcroft-Gault) 13.8 Glucose Level 181 mg/dL (70-99) Calcium Level 7.7 mg/dL (8.5-10.1) Phosphorus Level 3.9 mg/dL (2.6-4.7) Magnesium Level 1.7 mg/dL (1.8-2.4) Albumin 2.4 g/dL (3.4-5.0) Triglycerides Level 40 mg/dL (0-150) Cholesterol Level 83 mg/dL (0-200) LDL Cholesterol, Calculated 29 mg/dL (0-100) VLDL Cholesterol, Calculated 8 mg/dL (0-40) Non-HDL Cholesterol Calculated 37 mg/dL (0-129) HDL Cholesterol 46 mg/dL (40-60) Cholesterol/HDL Ratio 1.8 Test 03/17/17 11:41 Glucose (Fingerstick) 155 mg/dL (70-99) Laboratory Tests Test 03/16/17 17:15 03/16/17 21:01 03/17/17 06:45 03/17/17 08:10 Glucose (Fingerstick) 215 mg/dL (70-99) 187 mg/dL (70-99) 168 mg/dL (70-99) Hemoglobin 8.9 g/dL (12.0-15.5) Sodium Level 136 mmol/L (136-145) Potassium Level 4.0 mmol/L (3.5-5.1) Chloride Level 101 mmol/L (98-107) Carbon Dioxide Level 29 mmol/L (21-32) Anion Gap 6 (6-14) Blood Urea Nitrogen 28 mg/dL (7-20) Creatinine 3.3 mg/dL (0.6-1.0) Estimated GFR (Cockcroft-Gault) 13.8 Glucose Level 181 mg/dL (70-99) Calcium Level 7.7 mg/dL (8.5-10.1) Phosphorus Level 3.9 mg/dL (2.6-4.7) Magnesium Level 1.7 mg/dL (1.8-2.4) Albumin 2.4 g/dL (3.4-5.0) Triglycerides Level 40 mg/dL (0-150) Cholesterol Level 83 mg/dL (0-200) LDL Cholesterol, Calculated 29 mg/dL (0-100) VLDL Cholesterol, Calculated 8 mg/dL (0-40) Non-HDL Cholesterol Calculated 37 mg/dL (0-129) HDL Cholesterol 46 mg/dL (40-60) Cholesterol/HDL Ratio 1.8 Test 03/17/17 11:41 Glucose (Fingerstick) 155 mg/dL (70-99) Microbiology 03/14/17 Urine Culture - Final, Complete 03/14/17 Urine Culture Result 1 (DARIN) - Final, Complete Medications Current Medications Sodium Chloride 1,000 ml @ 1,000 mls/hr 1X ONCE IV Last administered on 22:23; Start 03/14/17 at 22:30; Stop 03/14/17 at 23:29; Status DC Hydralazine HCl (Apresoline) 10 mg 1X ONCE IVP Last administered on 03/14/17 22:25; Start 03/14/17 at 22:30; Stop 03/14/17 at 22:31; Status DC Insulin Aspart (NovoLOG) 30 units 1X ONCE SQ ; Start 03/14/17 at 22:00; Stop at 22:01; Status UNV Insulin Aspart (NovoLOG) 20 units 1X ONCE SQ Last administered on 03/14/17 22 :31; Start 03/14/17 at 22:30; Stop 03/14/17 at 22:31; Status DC Lorazepam (Ativan) 2 mg STK-MED ONCE .ROUTE ; Start 03/14/17 at 22:32; Stop at 22:33; Status DC Lorazepam (Ativan) 1 mg 1X ONCE IV Last administered on 03/14/17 22:36; Start 03/14/17 at 23:00; Stop 03/14/17 at 23:01; Status DC Ondansetron HCl (Zofran) 4 mg PRN Q8HRS PRN IV NAUSEA/VOMITING Last administered on 03/15/17 05:17; Start 03/15/17 at 00:15; Stop 03/16/17 at 00:14 ; Status DC Lorazepam (Ativan) 1 mg 1X PRN PRN IV seizure; Start 03/15/17 at 00:15 Hydralazine HCl (Apresoline) 10 mg PRN Q4HRS PRN IVP ELEVATED BP, SEE COMMENTS ; Start 03/15/17 at 00:15 Aspirin (Children'S Aspirin) 162 mg 1X ONCE PO ; Start 03/15/17 at 00:30; Stop 03/15/17 at 00:31; Status DC Insulin Aspart (NovoLOG) 30 units 1X ONCE SQ Last administered on 03/15/17 02 :37; Start 03/15/17 at 02:00; Stop 03/15/17 at 02:01; Status DC Acetaminophen/ Hydrocodone Bitart (Lortab 5/325) 1 tab PRN Q6HRS PRN PO MODERATE PAIN; Start 03/15/17 at 05:15 Acetaminophen/ Hydrocodone Bitart (Lortab 5/325) 2 tab PRN Q6HRS PRN PO SEVERE PAIN Last administered on 03/15/17 05:40; Start 03/15/17 at 05:15 Alprazolam (Xanax) 0.5 mg DAILY PO Last administered on 03/15/17 09:11; Start 03/15/17 at 09:00; Stop 03/15/17 at 14:46; Status DC Clonidine HCl (Catapres) 0.2 mg DAILY PO Last administered on 03/15/17 09:10; Start 03/15/17 at 09:00; Stop 03/16/17 at 07:54; Status DC Famotidine (Pepcid) 20 mg DAILY PO Last administered on 03/17/17 09:38; Start 03/15/17 at 09:00 Gabapentin (Neurontin) 100 mg DAILY PO Last administered on 03/17/17 09:37; Start 03/15/17 at 09:00 Acetaminophen/ Hydrocodone Bitart (Lortab 5/325) 1 tab PRN Q6HRS PRN PO PAIN; Start 03/15/17 at 08:15; Stop 03/15/17 at 08:26; Status DC Acetaminophen/ Hydrocodone Bitart (Lortab 5/325) 2 tab PRN Q6HRS PRN PO PAIN; Start 03/15/17 at 08:15; Stop 03/15/17 at 08:26; Status DC Albuterol/ Ipratropium (Duoneb) 3 ml QID NEB Last administered on 03/17/17 13: 05; Start 03/15/17 at 09:00 Levothyroxine Sodium (Synthroid) 175 mcg DAILYAC PO Last administered on 07:48; Start 03/16/17 at 07:30 Metoprolol Succinate (Toprol Xl) 25 mg DAILY PO Last administered on 03/17/17 09:38; Start 03/15/17 at 09:00 Rifaximin (Xifaxan) 550 mg BID PO Last administered on 03/17/17 09:37; Start 03/15/17 at 09:00 Sertraline HCl (Zoloft) 50 mg DAILY PO Last administered on 03/17/17 09:37; Start 03/15/17 at 09:00 Sevelamer Carbonate (Renvela) 800 mg TIDWMEALS PO Last administered on 11:39; Start 03/15/17 at 09:00 Sodium Bicarbonate (Sodium Bicarbonate) 1,300 mg 3X/WEEK PO Last administered on 03/17/17 09:37; Start 03/17/17 at 09:00 Zolpidem Tartrate (Ambien) 5 mg PRN QHS PRN PO INSOMNIA Last administered on 21:09; Start 03/15/17 at 08:15 Ergocalciferol (Vitamin D2) 50,000 unit WEEKLY PO ; Start 03/22/17 at 09:00 Insulin Detemir (Levemir) 50 units QHS SQ Last administered on 03/16/17 21:10 ; Start 03/15/17 at 21:00 Isosorbide Mononitrate (Imdur) 30 mg DAILY PO Last administered on 03/17/17 09 :36; Start 03/15/17 at 09:00 Losartan Potassium (Cozaar) 100 mg DAILY PO Last administered on 03/17/17 09: 38; Start 03/15/17 at 09:00 Ondansetron HCl (Zofran Odt) 4 mg PRN Q6HRS PRN PO NAUSEA/VOMITING; Start 03/15 at 08:30 Insulin Aspart (NovoLOG) 0-9 UNITS TIDWMEALS SQ Last administered on 03/17/17 11:43; Start 03/15/17 at 09:03 Dextrose (Dextrose 50%-Water Syringe) 12.5 gm PRN Q15MIN PRN IV SEE COMMENTS; Start 03/15/17 at 08:15 Insulin Aspart (NovoLOG) 15 units TIDAC SQ ; Start 03/15/17 at 11:30; Stop 03/15 at 11:30; Status DC Insulin Aspart (NovoLOG) 20 units TIDAC SQ Last administered on 03/17/17 11:42 ; Start 03/15/17 at 09:04 Sodium Chloride 1,000 ml @ 1,000 mls/hr Q1H PRN IV hypotension; Start 03/15/17 at 11:23; Stop 03/15/17 at 17:22; Status DC Albumin Human 200 ml @ 200 mls/hr 1X PRN PRN IV Hypotension Last administered on 03/15/17 13:40; Start 03/15/17 at 11:30; Stop 03/15/17 at 17:29; Status DC Info (PHARMACY MONITORING -- do not chart) 1 each PRN DAILY PRN MC SEE COMMENTS ; Start 03/15/17 at 11:30 Lidocaine HCl (Xylocaine-Mpf 1% Vial) 2 ml 1X STAT INJ ; Start 03/15/17 at 12: 25; Stop 03/15/17 at 12:27; Status DC Alprazolam (Xanax) 0.5 mg TID PO Last administered on 03/17/17 09:37; Start at 15:00 Sodium Chloride 1,000 ml @ 500 mls/hr Q2H IV Last administered on 03/15/17 22 :03; Start 03/15/17 at 19:15; Stop 03/15/17 at 22:22; Status DC Aspirin (Ecotrin) 325 mg DAILYWBKFT PO Last administered on 03/17/17 09:37; Start 03/15/17 at 22:30 Darbepoetin Brandan (Aranesp) 60 mcg WEEKLYHS SQ Last administered on 03/16/17 21 :08; Start 03/16/17 at 21:00 Potassium Chloride (Klor-Con) 40 meq 1X ONCE PO Last administered on 08:22; Start 03/16/17 at 08:00; Stop 03/16/17 at 08:04; Status DC Magnesium Sulfate/ Dextrose 50 ml @ 25 mls/hr PRN DAILY PRN IV for Mag < 1.7 on am labs; Start 03/16/17 at 08:00 Potassium Chloride (Klor-Con) 40 meq 1X ONCE PO ; Start 03/16/17 at 12:30; Stop 03/16/17 at 12:31; Status DC Magnesium Sulfate/ Dextrose 50 ml @ 25 mls/hr 1X ONCE IV Last administered on 03/17/17t 11:39; Start 03/17/17 at 09:30; Stop 03/17/17 at 11:29; Status DC Active Scripts Active Hydrocodone-Apap 5-325 (Hydrocodone Bit/Acetaminophen) 1 Each Tablet 1 Tab PO PRN Q6HRS PRN Reported Hydrocodone-Apap 5-325 (Hydrocodone Bit/Acetaminophen) 1 Each Tablet 2 Tab PO PRN Q6HRS PRN Alprazolam 0.5 Mg Tablet 1 Tab PO DAILY Clonidine Hcl 0.2 Mg Tablet 0.2 Mg PO DAILY Gabapentin 100 Mg Capsule 100 Mg PO DAILY Sodium Bicarbonate 650 Mg Tablet 1,300 Mg PO 3X/WEEK Zoloft (Sertraline Hcl) 50 Mg Tablet 50 Mg PO DAILY Renvela (Sevelamer Carbonate) 800 Mg Tablet 1 Tab PO TIDWMEALS Losartan Potassium 100 Mg Tablet 100 Mg PO DAILY Levothyroxine Sodium 175 Mcg Tablet 175 Mcg PO DAILYAC Lactulose 20 Gm/30 Ml Solution 10 Gm PO PRN BID Dialyvite Bastian D Tablet (Multivitamin, Min Cmb#25/Fa/D3) 1 Each Tablet 1 Each PO DAILY Vitamin D3 (Cholecalciferol (Vitamin D3)) 5,000 Unit Tablet 50,000 Unit PO WEEKLY Benadryl (Diphenhydramine Hcl) 25 Mg Capsule 1 Cap PO QHS PRN Duoneb 0.5-3(2.5) Mg/3 Ml (Albuterol/Ipratropium) 3 Ml Ampul.neb 3 Ml NEB QID Metoprolol Succinate ( Xl ) (Metoprolol Succinate) 25 Mg Tab.er.24h 25 Mg PO DAILY Lantus Solostar (Insulin Glargine,Hum.rec.anlog) 100 Unit/1 Ml Insuln.pen 50 Unit SQ QHS Humalog Kwikpen (Insulin Lispro) 200 Unit/1 Ml Insuln.pen 20-30 Unit SQ TID Ondansetron Hcl 4 Mg Tablet 4 Mg PO Q6HRS PRN Zolpidem Tartrate 5 Mg Tablet 5 Mg PO PRN QHS PRN Famotidine 20 Mg Tablet 20 Mg PO DAILY Voltaren (Diclofenac Sodium) 100 Gm Gel..gram. 1 Gm TP TID Xifaxan (Rifaximin) 550 Mg Tablet 1 Tab PO BID Isosorbide Dinitrate 30 Mg Tablet 1 Tab PO DAILY Vitals/I & O Vital Sign - Last 24 Hours 03/16/17 03/16/17 03/16/17 03/16/17 15:00 16:16 20:00 20:00 Temp 98.2 98.2 Pulse 68 65 Resp 11 14 B/P (MAP) 114/44 (67) 138/53 (81) Pulse Ox 95 98 O2 Delivery Room Air Room Air Room Air Room Air 03/16/17 03/17/17 03/17/17 03/17/17 21:03 00:50 06:21 08:00 Temp 98.2 98.2 98.0 98.2 98.2 98.0 Pulse 67 75 72 Resp 14 14 22 B/P (MAP) 134/50 (78) 120/50 (73) 149/78 (101) Pulse Ox 97 95 95 O2 Delivery Room Air Room Air Room Air Room Air 03/17/17 03/17/17 03/17/17 03/17/17 08:00 08:12 09:36 09:38 Pulse 74 73 B/P (MAP) 149/57 149/57 O2 Delivery Room Air Room Air 03/17/17 03/17/17 03/17/17 09:38 12:00 13:05 Temp 98.2 98.2 Pulse 75 69 Resp 20 B/P (MAP) 149/57 125/49 (74) Pulse Ox 96 95 O2 Delivery Room Air Room Air Intake and Output 03/16/17 03/16/17 03/17/17 14:59 22:59 06:59 Output Total 75 ml Balance -75 ml Nutrition Consultation Dietary Evaluation: Recommendations by RD: Dietary education by RD Comments: Provided education on the diabetic diet including handouts on carb counting and nutrition label reading. Discussed with pt Update diet order to renal/ada due to PmHx Expected Outcomes/Goals: meet 75% estimated nutrition needs stable blood sugar labs Malnutrition Findings: Malnutrition related to morbid: No Weight Status: Obese LETICIA BYRNES MD Mar 17, 2017 13:36
[2017-03-17] MEDS: HEPARIN PF for SUB-Q USE 5,000 UNIT/0.5 ML VIAL. SQ SCH ×2 (15:06→22:52)
[2017-03-17 16:00] VITALS: BP 161/64
--- NOTE | 2017-03-17 18:49 | CARD ---
APPROVED REPORT EXAM: Two-dimensional and M-mode echocardiogram with Doppler and color Doppler. Other Information Quality : Good INDICATION CVA/TIA 2D DIMENSIONS Left Atrium(2D)4.7 (1.6-4.0cm)IVSd1.3 (0.7-1.1cm) Aortic Root(2D)2.7 (2.0-3.7cm)LVDd4.8 (3.9-5.9cm) LVOT Diameter2.0 (1.8-2.4cm)PWd1.3 (0.7-1.1cm) LVDs2.6 (2.5-4.0cm)FS (%) 30.0 % SV85.2 mlLVEF(%)60.0 (>50%) Aortic Valve AoV Peak Sim.183.6cm/sAoV VTI39.6cm AO Peak GR.13.5mmHgLVOT VTI 33.99cm AO Mean GR.7mmHgAVA (VTI)2.60cm2 Mitral Valve MV E Wchwquyc416.6cm/sMV DECEL [id number] MV A Fqnxxfwc247.5cm/sE/A Ratio1.1 TDI Lateral E' P. V9.59cm/sMedial E' P. V5.15cm/s E/Lateral E'14.0E/Medial E'26.1 Tricuspid Valve TR P. Ngmpslls629ol/sRAP [id number] TR Peak Gr.[id number] Pulmonary Vein S1 Eaghapem95.8cm/sS2 Wahualtu56.84cm/s D2 Dwvwoyjh46.8cm/sPVa [id number] LEFT VENTRICLE The left ventricle is normal size. There is mild concentric left ventricular hypertrophy. The left ve ntricular systolic function is normal and the ejection fraction is within normal range. The Ejection Fraction is 60%. There is normal LV segmental wall motion. RIGHT VENTRICLE The right ventricle is normal size. The right ventricular systolic function is normal. ATRIA The left atrium is mildly dilated. The right atrium size is normal. The interatrial septum is intact with no evidence for an atrial septal defect or patent foramen ovale as noted on 2-D or Doppler imagi ng. AORTIC VALVE The aortic valve is calcified but opens well. Doppler and Color Flow revealed no significant aortic r egurgitation. There is no significant aortic valvular stenosis. MITRAL VALVE The mitral valve is calcified but opens well. Mitral annular calcification is mild. There is no evide nce of mitral valve prolapse. There is no mitral valve stenosis. Doppler and Color-flow revealed mild mitral regurgitation. TRICUSPID VALVE The tricuspid valve is normal in structure and function. Doppler and Color Flow revealed mild to mode rate tricuspid regurgitation. There is moderate pulmonary hypertension. The PA pressure was estimated at 54 mmHg. There is no tricuspid valve stenosis. PULMONIC VALVE The pulmonary valve is normal in structure Doppler and Color Flow revealed trace to mild pulmonic paul vular regurgitation. There is no pulmonic valvular stenosis. GREAT VESSELS The aortic root is normal in size. The ascending aorta is normal in size. The IVC is normal in size a nd collapses <50% with inspiration. PERICARDIAL EFFUSION There is moderate left and right pleural effusion. There is a trace circumferential pericardial effus ion. Critical Notification Critical Value: No <Conclusion> The left ventricular systolic function is normal and the ejection fraction is within normal range. The Ejection Fraction is 60%. There is mild concentric left ventricular hypertrophy. The left atrium is mildly dilated. The right atrium size is normal. The aortic valve is calcified but opens well. The mitral valve is calcified but opens well. Mitral annular calcification is mild. Doppler and Color-flow revealed mild mitral regurgitation. Doppler and Color Flow revealed mild to moderate tricuspid regurgitation. There is moderate pulmonary hypertension. The PA pressure was estimated at 54 mmHg. Doppler and Color Flow revealed trace to mild pulmonic valvular regurgitation. There is a trace circumferential pericardial effusion.
[2017-03-17 20:00] VITALS: BP 133/54
[2017-03-17] MEDS: ZOLPIDEM 5 MG TABLET. PO PRN (22:51)
[2017-03-17] MEDS: INSULIN DETEMIR 300 UNITS/3 ML INSULN.PEN. SQ SCH (22:52)
[2017-03-18] VITALS: BP 157/62
[2017-03-18 04:00] VITALS: BP 156/60
[2017-03-18 05:38] LABS: BASO % 1 % (0-3); EOS % 4 % (0-3); HEMATOCRIT 25.7 % (36.0-47.0); HEMOGLOBIN 9.1 g/dL (12.0-15.5); LYMPH # 0.5 x10^3/uL (1.0-4.8); LYMPH % 20 % (24-48); MEAN CORPUSCULAR HEMOGLOBIN 31 pg (25-35); MEAN CORPUSCULAR HGB CONC 35 g/dL (31-37); MEAN CORPUSCULAR VOLUME 86 fL (79-100); MONO % 12 % (0-9); NEUT % 62 % (31-73); PLATELET COUNT 60 x10^3/uL (140-400); RED BLOOD COUNT 2.99 x10^6/uL (3.50-5.40); RED CELL DISTRIBUTION WIDTH 16.6 % (11.5-14.5); WHITE BLOOD COUNT 2.4 x10^3/uL (4.0-11.0)
[2017-03-18 06:07] LABS: ALBUMIN 2.3 g/dL (3.4-5.0); CALCIUM 7.3 mg/dL (8.5-10.1); CREATININE 3.6 mg/dL (0.6-1.0); GFR 12.5; PHOSPHORUS 3.5 mg/dL (2.6-4.7); POTASSIUM 4.5 mmol/L (3.5-5.1)
[2017-03-18] MEDS: HEPARIN PF for SUB-Q USE 5,000 UNIT/0.5 ML VIAL. SQ SCH (06:17)
[2017-03-18 08:00] VITALS: BP 142/87
[2017-03-18] MEDS ORDERED: INSULIN ASPART 300 UNITS/3 ML INSULN.PEN SQ SCH (08:00)
[2017-03-18] MEDS: INSULIN ASPART 300 UNITS/3 ML INSULN.PEN SQ SCH (08:00)
[2017-03-18] MEDS ORDERED: IV NORMAL SALINE 1000ML BAG 1,000 ML IV PRN ×2 (08:04)
[2017-03-18] MEDS ORDERED: DIALYSIS PATIENT. MC PRN ×2 (08:15)
[2017-03-18] MEDS: IPRATRPIUM/ALBUTEROL 0.5/2.5MG 3 ML NEBU. NEB SCH ×2 (08:17→12:48)
[2017-03-18] MEDS: ALPRAZolam 0.5 MG TABLET PO SCH (09:00)
[2017-03-18] MEDS: METOPROLOL SUCC 24HR ER 25 MG TAB.ER.24H. PO SCH (09:00)
[2017-03-18] MEDS ORDERED: ASPI325T11 PO (09:10)
[2017-03-18] MEDS: SEVELAMER CARBONATE 800 MG TABLET. PO SCH (09:45)
[2017-03-18] MEDS: LEVOTHYROXINE 175 MCG TABLET PO SCH (09:45)
[2017-03-18] MEDS: rifAXIMin 550 MG TABLET PO SCH (09:46)
[2017-03-18] MEDS: SERTRALINE 50 MG TABLET. PO SCH (09:46)
[2017-03-18] MEDS: LOSARTAN POTASSIUM 50 MG TABLET. PO SCH (09:46)
[2017-03-18] MEDS: FAMOTIDINE 20 MG TABLET. PO SCH (09:46)
[2017-03-18] MEDS: ASPIRIN ENTERIC COATED 325 MG TABLET.DR. PO SCH (09:46)
[2017-03-18] MEDS: GABAPENTIN 100 MG CAPSULE. PO SCH (09:46)
[2017-03-18] MEDS: ISOSORBIDE MONONITRATE ER 30 MG TAB.ER.24H PO SCH (09:46)
--- NOTE | 2017-03-18 10:44 | PDOC ---
PROGRESS NOTES Assessment Problems Medical Problems: (1) Seizure Status: Acute Metabolic encephalopathy. Acute 2 tiny infarcts in right parietal white matter and right frontal lobe. Seizures due to hyperglycemia. Plan Continue current medications. No need for anticonvulsants Subjective No complaints Objective Vital Signs Date Time Temp Pulse Resp B/P (MAP) Pulse Ox O2 Delivery O2 Flow Rate FiO2 03/18/17 09:46 66 142/87 03/18/17 08:19 99 Room Air 03/18/17 08:00 98.5 13 98.5 03/18/17 04:00 2.0 Intake and Output 03/18/17 07:00 Intake Total 900 ml Balance 900 ml Intake Oral 900 ml # Voids 9 # Bowel Movements 1 PHYSICAL EXAM Alert. Oriented to place and person, Not time. She got some Ambien early this morning PERRL. EOMI. CN: no focal findings. Muscle tone: normal. Muscle strength: 4/5 DTR: 2+ Plantar reflex: flexor Gait: not examined in bed. Sensory exam: no abnormal findings. No cerebellar signs elicited. Review of Relevant I have reviewed the following items karyn (where applicable) has been applied. Labs Laboratory Tests Test 03/16/17 12:26 03/16/17 17:15 03/16/17 21:01 03/17/17 06:45 Glucose (Fingerstick) 126 mg/dL (70-99) 215 mg/dL (70-99) 187 mg/dL (70-99) Hemoglobin 8.9 g/dL (12.0-15.5) Sodium Level 136 mmol/L (136-145) Potassium Level 4.0 mmol/L (3.5-5.1) Chloride Level 101 mmol/L (98-107) Carbon Dioxide Level 29 mmol/L (21-32) Anion Gap 6 (6-14) Blood Urea Nitrogen 28 mg/dL (7-20) Creatinine 3.3 mg/dL (0.6-1.0) Estimated GFR (Cockcroft-Gault) 13.8 Glucose Level 181 mg/dL (70-99) Calcium Level 7.7 mg/dL (8.5-10.1) Phosphorus Level 3.9 mg/dL (2.6-4.7) Magnesium Level 1.7 mg/dL (1.8-2.4) Albumin 2.4 g/dL (3.4-5.0) Triglycerides Level 40 mg/dL (0-150) Cholesterol Level 83 mg/dL (0-200) LDL Cholesterol, Calculated 29 mg/dL (0-100) VLDL Cholesterol, Calculated 8 mg/dL (0-40) Non-HDL Cholesterol Calculated 37 mg/dL (0-129) HDL Cholesterol 46 mg/dL (40-60) Cholesterol/HDL Ratio 1.8 Test 03/17/17 08:10 03/17/17 11:41 03/17/17 16:51 03/17/17 16:52 Glucose (Fingerstick) 168 mg/dL (70-99) 155 mg/dL (70-99) 47 mg/dL (70-99) 48 mg/dL (70-99) Test 03/17/17 17:15 03/17/17 18:04 03/17/17 22:09 03/18/17 05:05 Glucose (Fingerstick) 100 mg/dL (70-99) 120 mg/dL (70-99) 189 mg/dL (70-99) White Blood Count 2.4 x10^3/uL (4.0-11.0) Red Blood Count 2.99 x10^6/uL (3.50-5.40) Hemoglobin 9.1 g/dL (12.0-15.5) Hematocrit 25.7 % (36.0-47.0) Mean Corpuscular Volume 86 fL (79-100) Mean Corpuscular Hemoglobin 31 pg (25-35) Mean Corpuscular Hemoglobin Concent 35 g/dL (31-37) Red Cell Distribution Width 16.6 % (11.5-14.5) Platelet Count 60 x10^3/uL (140-400) Neutrophils (%) (Auto) 62 % (31-73) Lymphocytes (%) (Auto) 20 % (24-48) Monocytes (%) (Auto) 12 % (0-9) Eosinophils (%) (Auto) 4 % (0-3) Basophils (%) (Auto) 1 % (0-3) Neutrophils # (Auto) 1.5 x10^3uL (1.8-7.7) Lymphocytes # (Auto) 0.5 x10^3/uL (1.0-4.8) Monocytes # (Auto) 0.3 x10^3/uL (0.0-1.1) Eosinophils # (Auto) 0.1 x10^3/uL (0.0-0.7) Basophils # (Auto) 0.0 x10^3/uL (0.0-0.2) Sodium Level 136 mmol/L (136-145) Potassium Level 4.5 mmol/L (3.5-5.1) Chloride Level 101 mmol/L (98-107) Carbon Dioxide Level 28 mmol/L (21-32) Anion Gap 7 (6-14) Blood Urea Nitrogen 38 mg/dL (7-20) Creatinine 3.6 mg/dL (0.6-1.0) Estimated GFR (Cockcroft-Gault) 12.5 Glucose Level 240 mg/dL (70-99) Calcium Level 7.3 mg/dL (8.5-10.1) Phosphorus Level 3.5 mg/dL (2.6-4.7) Magnesium Level 2.0 mg/dL (1.8-2.4) Albumin 2.3 g/dL (3.4-5.0) Test 03/18/17 07:49 Glucose (Fingerstick) 188 mg/dL (70-99) Laboratory Tests Test 03/17/17 11:41 03/17/17 16:51 03/17/17 16:52 03/17/17 17:15 Glucose (Fingerstick) 155 mg/dL (70-99) 47 mg/dL (70-99) 48 mg/dL (70-99) 100 mg/dL (70-99) Test 03/17/17 18:04 03/17/17 22:09 03/18/17 05:05 03/18/17 07:49 Glucose (Fingerstick) 120 mg/dL (70-99) 189 mg/dL (70-99) 188 mg/dL (70-99) White Blood Count 2.4 x10^3/uL (4.0-11.0) Red Blood Count 2.99 x10^6/uL (3.50-5.40) Hemoglobin 9.1 g/dL (12.0-15.5) Hematocrit 25.7 % (36.0-47.0) Mean Corpuscular Volume 86 fL (79-100) Mean Corpuscular Hemoglobin 31 pg (25-35) Mean Corpuscular Hemoglobin Concent 35 g/dL (31-37) Red Cell Distribution Width 16.6 % (11.5-14.5) Platelet Count 60 x10^3/uL (140-400) Neutrophils (%) (Auto) 62 % (31-73) Lymphocytes (%) (Auto) 20 % (24-48) Monocytes (%) (Auto) 12 % (0-9) Eosinophils (%) (Auto) 4 % (0-3) Basophils (%) (Auto) 1 % (0-3) Neutrophils # (Auto) 1.5 x10^3uL (1.8-7.7) Lymphocytes # (Auto) 0.5 x10^3/uL (1.0-4.8) Monocytes # (Auto) 0.3 x10^3/uL (0.0-1.1) Eosinophils # (Auto) 0.1 x10^3/uL (0.0-0.7) Basophils # (Auto) 0.0 x10^3/uL (0.0-0.2) Sodium Level 136 mmol/L (136-145) Potassium Level 4.5 mmol/L (3.5-5.1) Chloride Level 101 mmol/L (98-107) Carbon Dioxide Level 28 mmol/L (21-32) Anion Gap 7 (6-14) Blood Urea Nitrogen 38 mg/dL (7-20) Creatinine 3.6 mg/dL (0.6-1.0) Estimated GFR (Cockcroft-Gault) 12.5 Glucose Level 240 mg/dL (70-99) Calcium Level 7.3 mg/dL (8.5-10.1) Phosphorus Level 3.5 mg/dL (2.6-4.7) Magnesium Level 2.0 mg/dL (1.8-2.4) Albumin 2.3 g/dL (3.4-5.0) Microbiology 03/14/17 Urine Culture - Final, Complete 03/14/17 Urine Culture Result 1 (DARIN) - Final, Complete Medications Current Medications Sodium Chloride 1,000 ml @ 1,000 mls/hr 1X ONCE IV Last administered on t 22:23; Start 03/14/17 at 22:30; Stop 03/14/17 at 23:29; Status DC Hydralazine HCl (Apresoline) 10 mg 1X ONCE IVP Last administered on 03/14/17 22:25; Start 03/14/17 at 22:30; Stop 03/14/17 at 22:31; Status DC Insulin Aspart (NovoLOG) 30 units 1X ONCE SQ ; Start 03/14/17 at 22:00; Stop at 22:01; Status UNV Insulin Aspart (NovoLOG) 20 units 1X ONCE SQ Last administered on 03/14/17 22 :31; Start 03/14/17 at 22:30; Stop 03/14/17 at 22:31; Status DC Lorazepam (Ativan) 2 mg STK-MED ONCE .ROUTE ; Start 03/14/17 at 22:32; Stop at 22:33; Status DC Lorazepam (Ativan) 1 mg 1X ONCE IV Last administered on 03/14/17 22:36; Start 03/14/17 at 23:00; Stop 03/14/17 at 23:01; Status DC Ondansetron HCl (Zofran) 4 mg PRN Q8HRS PRN IV NAUSEA/VOMITING Last administered on 03/15/17 05:17; Start 03/15/17 at 00:15; Stop 03/16/17 at 00:14 ; Status DC Lorazepam (Ativan) 1 mg 1X PRN PRN IV seizure; Start 03/15/17 at 00:15 Hydralazine HCl (Apresoline) 10 mg PRN Q4HRS PRN IVP ELEVATED BP, SEE COMMENTS ; Start 03/15/17 at 00:15 Aspirin (Children'S Aspirin) 162 mg 1X ONCE PO ; Start 03/15/17 at 00:30; Stop 03/15/17 at 00:31; Status DC Insulin Aspart (NovoLOG) 30 units 1X ONCE SQ Last administered on 03/15/17 02 :37; Start 03/15/17 at 02:00; Stop 03/15/17 at 02:01; Status DC Acetaminophen/ Hydrocodone Bitart (Lortab 5/325) 1 tab PRN Q6HRS PRN PO MODERATE PAIN; Start 03/15/17 at 05:15 Acetaminophen/ Hydrocodone Bitart (Lortab 5/325) 2 tab PRN Q6HRS PRN PO SEVERE PAIN Last administered on 03/15/17 05:40; Start 03/15/17 at 05:15 Alprazolam (Xanax) 0.5 mg DAILY PO Last administered on 03/15/17 09:11; Start 03/15/17 at 09:00; Stop 03/15/17 at 14:46; Status DC Clonidine HCl (Catapres) 0.2 mg DAILY PO Last administered on 03/15/17 09:10; Start 03/15/17 at 09:00; Stop 03/16/17 at 07:54; Status DC Famotidine (Pepcid) 20 mg DAILY PO Last administered on 03/18/17 09:46; Start 03/15/17 at 09:00 Gabapentin (Neurontin) 100 mg DAILY PO Last administered on 03/18/17 09:46; Start 03/15/17 at 09:00 Acetaminophen/ Hydrocodone Bitart (Lortab 5/325) 1 tab PRN Q6HRS PRN PO PAIN; Start 03/15/17 at 08:15; Stop 03/15/17 at 08:26; Status DC Acetaminophen/ Hydrocodone Bitart (Lortab 5/325) 2 tab PRN Q6HRS PRN PO PAIN; Start 03/15/17 at 08:15; Stop 03/15/17 at 08:26; Status DC Albuterol/ Ipratropium (Duoneb) 3 ml QID NEB Last administered on 03/18/17 08: 17; Start 03/15/17 at 09:00 Levothyroxine Sodium (Synthroid) 175 mcg DAILYAC PO Last administered on 09:45; Start 03/16/17 at 07:30 Metoprolol Succinate (Toprol Xl) 25 mg DAILY PO Last administered on 03/17/17 09:38; Start 03/15/17 at 09:00 Rifaximin (Xifaxan) 550 mg BID PO Last administered on 03/18/17 09:46; Start 03/15/17 at 09:00 Sertraline HCl (Zoloft) 50 mg DAILY PO Last administered on 03/18/17 09:46; Start 03/15/17 at 09:00 Sevelamer Carbonate (Renvela) 800 mg TIDWMEALS PO Last administered on 09:45; Start 03/15/17 at 09:00 Sodium Bicarbonate (Sodium Bicarbonate) 1,300 mg 3X/WEEK PO Last administered on 03/17/17 09:37; Start 03/17/17 at 09:00 Zolpidem Tartrate (Ambien) 5 mg PRN QHS PRN PO INSOMNIA Last administered on 22:51; Start 03/15/17 at 08:15 Ergocalciferol (Vitamin D2) 50,000 unit WEEKLY PO ; Start 03/22/17 at 09:00 Insulin Detemir (Levemir) 50 units QHS SQ Last administered on 03/17/17 22:52 ; Start 03/15/17 at 21:00 Isosorbide Mononitrate (Imdur) 30 mg DAILY PO Last administered on 03/18/17 09 :46; Start 03/15/17 at 09:00 Losartan Potassium (Cozaar) 100 mg DAILY PO Last administered on 03/18/17 09: 46; Start 03/15/17 at 09:00 Ondansetron HCl (Zofran Odt) 4 mg PRN Q6HRS PRN PO NAUSEA/VOMITING; Start 03/15 at 08:30 Insulin Aspart (NovoLOG) 0-9 UNITS TIDWMEALS SQ Last administered on 03/17/17 11:43; Start 03/15/17 at 09:03 Dextrose (Dextrose 50%-Water Syringe) 12.5 gm PRN Q15MIN PRN IV SEE COMMENTS Last administered on 03/17/17 17:06; Start 03/15/17 at 08:15 Insulin Aspart (NovoLOG) 15 units TIDAC SQ ; Start 03/15/17 at 11:30; Stop 03/15 at 11:30; Status DC Insulin Aspart (NovoLOG) 20 units TIDAC SQ Last administered on 03/17/17 11:42 ; Start 03/15/17 at 09:04; Stop 03/18/17 at 07:47; Status DC Sodium Chloride 1,000 ml @ 1,000 mls/hr Q1H PRN IV hypotension; Start 03/15/17 at 11:23; Stop 03/15/17 at 17:22; Status DC Albumin Human 200 ml @ 200 mls/hr 1X PRN PRN IV Hypotension Last administered on 03/15/17 13:40; Start 03/15/17 at 11:30; Stop 03/15/17 at 17:29; Status DC Info (PHARMACY MONITORING -- do not chart) 1 each PRN DAILY PRN MC SEE COMMENTS ; Start 03/15/17 at 11:30 Lidocaine HCl (Xylocaine-Mpf 1% Vial) 2 ml 1X STAT INJ ; Start 03/15/17 at 12: 25; Stop 03/15/17 at 12:27; Status DC Alprazolam (Xanax) 0.5 mg TID PO Last administered on 03/17/17 22:51; Start at 15:00 Sodium Chloride 1,000 ml @ 500 mls/hr Q2H IV Last administered on 03/15/17 22 :03; Start 03/15/17 at 19:15; Stop 03/15/17 at 22:22; Status DC Aspirin (Ecotrin) 325 mg DAILYWBKFT PO Last administered on 03/18/17 09:46; Start 03/15/17 at 22:30 Darbepoetin Brandan (Aranesp) 60 mcg WEEKLYHS SQ Last administered on 03/16/17 21 :08; Start 03/16/17 at 21:00 Potassium Chloride (Klor-Con) 40 meq 1X ONCE PO Last administered on 08:22; Start 03/16/17 at 08:00; Stop 03/16/17 at 08:04; Status DC Magnesium Sulfate/ Dextrose 50 ml @ 25 mls/hr PRN DAILY PRN IV for Mag < 1.7 on am labs; Start 03/16/17 at 08:00 Potassium Chloride (Klor-Con) 40 meq 1X ONCE PO ; Start 03/16/17 at 12:30; Stop 03/16/17 at 12:31; Status DC Magnesium Sulfate/ Dextrose 50 ml @ 25 mls/hr 1X ONCE IV Last administered on 03/17/17 11:39; Start 03/17/17 at 09:30; Stop 03/17/17 at 11:29; Status DC Heparin Sodium (Porcine) (Heparin Sq) 5,000 unit Q8HRS SQ Last administered on 03/18/17 06:17; Start 03/17/17 at 14:00 Insulin Aspart (NovoLOG) 15 units TIDAC SQ ; Start 03/18/17 at 08:00 Sodium Chloride 1,000 ml @ 1,000 mls/hr Q1H PRN IV hypotension; Start 03/18/17 at 08:04; Stop 03/18/17 at 14:03 Sodium Chloride 1,000 ml @ 400 mls/hr Q2H30M PRN IV PATENCY; Start 03/18/17 at 08:04; Stop 03/18/17 at 20:03 Info (PHARMACY MONITORING -- do not chart) 1 each PRN DAILY PRN MC SEE COMMENTS ; Start 03/18/17 at 08:15; Stop 03/18/17 at 08:15; Status DC Info (PHARMACY MONITORING -- do not chart) 1 each PRN DAILY PRN MC SEE COMMENTS ; Start 03/18/17 at 08:15 Active Scripts Active Aspirin Ec (Aspirin) 325 Mg Tablet. 325 Mg PO DAILYWBKFT 30 Days Hydrocodone-Apap 5-325 (Hydrocodone Bit/Acetaminophen) 1 Each Tablet 1 Tab PO PRN Q6HRS PRN Reported Hydrocodone-Apap 5-325 (Hydrocodone Bit/Acetaminophen) 1 Each Tablet 2 Tab PO PRN Q6HRS PRN Alprazolam 0.5 Mg Tablet 1 Tab PO DAILY Clonidine Hcl 0.2 Mg Tablet 0.2 Mg PO DAILY Gabapentin 100 Mg Capsule 100 Mg PO DAILY Sodium Bicarbonate 650 Mg Tablet 1,300 Mg PO 3X/WEEK Zoloft (Sertraline Hcl) 50 Mg Tablet 50 Mg PO DAILY Renvela (Sevelamer Carbonate) 800 Mg Tablet 1 Tab PO TIDWMEALS Losartan Potassium 100 Mg Tablet 100 Mg PO DAILY Levothyroxine Sodium 175 Mcg Tablet 175 Mcg PO DAILYAC Lactulose 20 Gm/30 Ml Solution 10 Gm PO PRN BID Dialyvite [place] D Tablet (Multivitamin, Min Cmb#25/Fa/D3) 1 Each Tablet 1 Each PO DAILY Vitamin D3 (Cholecalciferol (Vitamin D3)) 5,000 Unit Tablet 50,000 Unit PO WEEKLY Benadryl (Diphenhydramine Hcl) 25 Mg Capsule 1 Cap PO QHS PRN Duoneb 0.5-3(2.5) Mg/3 Ml (Albuterol/Ipratropium) 3 Ml Ampul.neb 3 Ml NEB QID Metoprolol Succinate ( Xl ) (Metoprolol Succinate) 25 Mg Tab.er.24h 25 Mg PO DAILY Lantus Solostar (Insulin Glargine,Hum.rec.anlog) 100 Unit/1 Ml Insuln.pen 50 Unit SQ QHS Humalog Kwikpen (Insulin Lispro) 200 Unit/1 Ml Insuln.pen 20-30 Unit SQ TID Ondansetron Hcl 4 Mg Tablet 4 Mg PO Q6HRS PRN Zolpidem Tartrate 5 Mg Tablet 5 Mg PO PRN QHS PRN Famotidine 20 Mg Tablet 20 Mg PO DAILY Voltaren (Diclofenac Sodium) 100 Gm Gel..gram. 1 Gm TP TID Xifaxan (Rifaximin) 550 Mg Tablet 1 Tab PO BID Isosorbide Dinitrate 30 Mg Tablet 1 Tab PO DAILY Vitals/I & O Vital Sign - Last 24 Hours 03/17/17 03/17/17 03/17/17 03/17/17 12:00 13:05 16:00 16:11 Temp 98.2 97.9 98.2 97.9 Pulse 69 75 Resp 20 13 B/P (MAP) 125/49 (74) 161/64 (96) Pulse Ox 96 95 95 95 O2 Delivery Room Air Room Air Room Air Room Air 03/17/17 03/17/17 03/17/17 03/18/17 20:00 20:00 20:03 00:00 Temp 97.9 97.6 97.9 97.6 Pulse 62 74 Resp 16 12 B/P (MAP) 133/54 (80) 157/62 (93) Pulse Ox 93 99 93 O2 Delivery Room Air Room Air Room Air Room Air 03/18/17 03/18/17 03/18/17 03/18/17 04:00 08:00 08:00 08:19 Temp 97.6 98.5 97.6 98.5 Pulse 64 66 Resp 12 13 B/P (MAP) 156/60 (92) 142/87 (105) Pulse Ox 93 98 99 O2 Delivery Room Air Room Air Room Air Room Air O2 Flow Rate 2.0 03/18/17 03/18/17 09:46 09:46 Pulse 66 66 B/P (MAP) 142/87 142/87 Intake and Output 03/17/17 03/17/17 03/18/17 15:00 23:00 07:00 Intake Total 650 ml 250 ml Balance 650 ml 250 ml Images Echocardiogram 03/16: LEFT VENTRICLE The left ventricle is normal size. There is mild concentric left ventricular hypertrophy. The left ventricular systolic function is normal and the ejection fraction is within normal range. The Ejection Fraction is 60%. There is normal LV segmental wall motion. RIGHT VENTRICLE The right ventricle is normal size. The right ventricular systolic function is normal. ATRIA The left atrium is mildly dilated. The right atrium size is normal. The interatrial septum is intact with no evidence for an atrial septal defect or patent foramen ovale as noted on 2-D or Doppler imaging. AORTIC VALVE The aortic valve is calcified but opens well. Doppler and Color Flow revealed no significant aortic regurgitation. There is no significant aortic valvular stenosis. MITRAL VALVE The mitral valve is calcified but opens well. Mitral annular calcification is mild. There is no evidence of mitral valve prolapse. There is no mitral valve stenosis. Doppler and Color-flow revealed mild mitral regurgitation. TRICUSPID VALVE The tricuspid valve is normal in structure and function. Doppler and Color Flow revealed mild to moderate tricuspid regurgitation. There is moderate pulmonary hypertension. The PA pressure was estimated at 54 mmHg. There is no tricuspid valve stenosis. PULMONIC VALVE The pulmonary valve is normal in structure Doppler and Color Flow revealed trace to mild pulmonic valvular regurgitation. There is no pulmonic valvular stenosis. GREAT VESSELS The aortic root is normal in size. The ascending aorta is normal in size. The IVC is normal in size and collapses <50% with inspiration. PERICARDIAL EFFUSION There is moderate left and right pleural effusion. There is a trace circumferential pericardial effusion. Critical Notification Critical Value: No <Conclusion> The left ventricular systolic function is normal and the ejection fraction is within normal range. The Ejection Fraction is 60%. There is mild concentric left ventricular hypertrophy. The left atrium is mildly dilated. The right atrium size is normal. The aortic valve is calcified but opens well. The mitral valve is calcified but opens well. Mitral annular calcification is mild. Doppler and Color-flow revealed mild mitral regurgitation. Doppler and Color Flow revealed mild to moderate tricuspid regurgitation. There is moderate pulmonary hypertension. The PA pressure was estimated at 54 mmHg. Doppler and Color Flow revealed trace to mild pulmonic valvular regurgitation. There is a trace circumferential pericardial effusion. JUAN MEJIAS MD Mar 18, 2017 10:44
--- NOTE | 2017-03-18 11:54 | PDOC ---
Renal-Progress Notes Subjective Notes Notes NO NEW COMPLAINTS EXCEPT ABD DISTENTION History of Present Illness Hx of present illness STABLE Vitals Vitals Vital Signs Date Time Temp Pulse Resp B/P (MAP) Pulse Ox O2 Delivery O2 Flow Rate FiO2 03/18/17 09:46 66 142/87 03/18/17 08:19 99 Room Air 03/18/17 08:00 98.5 13 98.5 03/18/17 04:00 2.0 Weight Weight [ ] I.O. Intake and Output Intake and Output 03/18/17 07:00 Intake Total 900 ml Balance 900 ml Intake Oral 900 ml # Voids 9 # Bowel Movements 1 Labs Labs Laboratory Tests Test 03/17/17 16:51 03/17/17 16:52 03/17/17 17:15 03/17/17 18:04 Glucose (Fingerstick) 47 mg/dL (70-99) 48 mg/dL (70-99) 100 mg/dL (70-99) 120 mg/dL (70-99) Test 03/17/17 22:09 03/18/17 05:05 03/18/17 07:49 03/18/17 11:21 Glucose (Fingerstick) 189 mg/dL (70-99) 188 mg/dL (70-99) 111 mg/dL (70-99) White Blood Count 2.4 x10^3/uL (4.0-11.0) Red Blood Count 2.99 x10^6/uL (3.50-5.40) Hemoglobin 9.1 g/dL (12.0-15.5) Hematocrit 25.7 % (36.0-47.0) Mean Corpuscular Volume 86 fL (79-100) Mean Corpuscular Hemoglobin 31 pg (25-35) Mean Corpuscular Hemoglobin Concent 35 g/dL (31-37) Red Cell Distribution Width 16.6 % (11.5-14.5) Platelet Count 60 x10^3/uL (140-400) Neutrophils (%) (Auto) 62 % (31-73) Lymphocytes (%) (Auto) 20 % (24-48) Monocytes (%) (Auto) 12 % (0-9) Eosinophils (%) (Auto) 4 % (0-3) Basophils (%) (Auto) 1 % (0-3) Neutrophils # (Auto) 1.5 x10^3uL (1.8-7.7) Lymphocytes # (Auto) 0.5 x10^3/uL (1.0-4.8) Monocytes # (Auto) 0.3 x10^3/uL (0.0-1.1) Eosinophils # (Auto) 0.1 x10^3/uL (0.0-0.7) Basophils # (Auto) 0.0 x10^3/uL (0.0-0.2) Sodium Level 136 mmol/L (136-145) Potassium Level 4.5 mmol/L (3.5-5.1) Chloride Level 101 mmol/L (98-107) Carbon Dioxide Level 28 mmol/L (21-32) Anion Gap 7 (6-14) Blood Urea Nitrogen 38 mg/dL (7-20) Creatinine 3.6 mg/dL (0.6-1.0) Estimated GFR (Cockcroft-Gault) 12.5 Glucose Level 240 mg/dL (70-99) Calcium Level 7.3 mg/dL (8.5-10.1) Phosphorus Level 3.5 mg/dL (2.6-4.7) Magnesium Level 2.0 mg/dL (1.8-2.4) Albumin 2.3 g/dL (3.4-5.0) Micro Micro Microbiology 03/14/17 Urine Culture - Final, Complete 03/14/17 Urine Culture Result 1 (DARIN) - Final, Complete Review of Systems Constitutional: yes: alert, oriented Ears/Nose/Throat: Yes: no symptom reported Eyes: Yes: no symptom reported Cardiovascular: Yes edema Gastrointestional: Yes: constipation Musculoskeletal: Yes: muscle stiffness Skin: Yes no symptom reported Psychiatric/Neurological: Yes: no symptom reported Physical Exam General Appearance: no apparent distress Respiratory: bilateral CTA Heart: S1S2, RRR Abdomen: soft, bowel sounds present Extremities: pulses present, edema Neurology: alert, oriented Musculoskeletal: Osteoarthritis, Other Assessment Assessment IMP SEIZURE HYPERGLYCEMIA ANEMIA ESRD COPD CHF EDEMA PLAN CONT ARANESP HD TODAY UF ABOUT 4 LITERS WILL HD AGAIN TOMORROW PARACENTESIS PENDING OPAL RUBI MD Mar 18, 2017 11:54
[2017-03-18 12:00] VITALS: BP 86/61
--- NOTE | 2017-03-18 13:51 | PDOC3 ---
Discharge Summary [facility] Date of Admission: Mar 14, 2017 Discharge Date: Mar 18, 2017 Admitting Diagnosis seizure-like activity unclear etiology possible due to hyperglycemia Hyperglycemia noncompliance End-stage renal disease on hemodialysis TTS Pancytopenia with chronic cirrhosis Nonalcoholic cirrhosis with abdominal distention Hypertension Ascites with nonalcoholic cirrhosis, paracentesis q6ms Hypokalemia hypomagnesemia MRI brain showed 2 small acute stroke Problems: Final Diagnosis CONSULTS renal neuro Brief Hospital Course Ms. Douglass is a 71 old F, not compliant with her meds , came for some seizure like activity, likely 2/2 hyperglycemia. MRI showed 2 small acute stroke, which likely didnot cause any neurologic deficit. chronic BILLINGS with ascites and bl leg edema, ESRD on HD stable to go home, IR consulted for paracentesis which pt does every 6months, but IR wont do it given had heparin today, recommend do as outpt. dc time 35min , with asa 325mg daily. General: Alert, Oriented X3, Cooperative Heart: Normal S1, Normal S2 Lungs: Clear Abdomen: Normal bowel sounds, Other (abdomen distended with umbilical hernia) Extremities: No clubbing, No cyanosis, Other (bl leg 3+ edema) Skin: Other (chronic edema with rash and lower extremities) Patient History: Patient reports no known family medical history. Problems: Disposition home CONDITION AT DISCHARGE: Improved Diet renal Scheduled Alprazolam (Alprazolam), 1 TAB PO DAILY, (Reported) Aspirin (Aspirin Ec), 325 MG PO DAILYWBKFT Cholecalciferol (Vitamin D3) (Vitamin D3), 50,000 UNIT PO WEEKLY, (Reported) Clonidine Hcl (Clonidine Hcl), 0.2 MG PO DAILY, (Reported) Diclofenac Sodium (Voltaren), 1 GM TP TID, (Reported) Famotidine (Famotidine), 20 MG PO DAILY, (Reported) Gabapentin (Gabapentin), 100 MG PO DAILY, (Reported) Insulin Glargine,Hum.rec.anlog (Lantus Solostar), 50 UNIT SQ QHS, (Reported) Insulin Lispro (Humalog Kwikpen), 20-30 UNIT SQ TID, (Reported) Ipratropium/Albuterol Sulfate (Duoneb 0.5-3(2.5) Mg/3 Ml), 3 ML NEB QID, ( Reported) Isosorbide Dinitrate (Isosorbide Dinitrate), 1 TAB PO DAILY, (Reported) Lactulose (Lactulose), 10 GM PO PRN BID, (Reported) Levothyroxine Sodium (Levothyroxine Sodium), 175 MCG PO DAILYAC, (Reported) Losartan Potassium (Losartan Potassium), 100 MG PO DAILY, (Reported) Metoprolol Succinate (Metoprolol Succinate ( Xl )), 25 MG PO DAILY, (Reported) Multivitamin, Min Cmb#25/Fa/D3 (Dialyvite [place] D Tablet), 1 EACH PO DAILY, ( Reported) Rifaximin (Xifaxan), 1 TAB PO BID, (Reported) Sertraline Hcl (Zoloft), 50 MG PO DAILY, (Reported) Sevelamer Carbonate (Renvela), 1 TAB PO TIDWMEALS, (Reported) Sodium Bicarbonate (Sodium Bicarbonate), 1,300 MG PO 3X/WEEK, (Reported) Scheduled PRN Diphenhydramine Hcl (Benadryl), 1 CAP PO QHS PRN for INSOMNIA, (Reported) Hydrocodone Bit/Acetaminophen (Hydrocodone-Apap 5-325 ), 1 TAB PO PRN Q6HRS PRN for PAIN Hydrocodone Bit/Acetaminophen (Hydrocodone-Apap 5-325 ), 2 TAB PO PRN Q6HRS PRN for PAIN, (Reported) Ondansetron Hcl (Ondansetron Hcl), 4 MG PO Q6HRS PRN for NAUSEA/VOMITING, ( Reported) Zolpidem Tartrate (Zolpidem Tartrate), 5 MG PO PRN QHS PRN for INSOMNIA, ( Reported) Discontinued Medications Alprazolam (Alprazolam), 0.5 MG PO Q8HRS PRN for ANXIETY / AGITATION, (Reported) Clonidine Hcl (Clonidine Hcl), 0.2 MG PO DAILY PRN for ELEVATED BP, SEE COMMENTS , (Reported) Gabapentin (Gabapentin), 100 MG PO TID, (Reported) Levothyroxine Sodium (Levothyroxine Sodium), 1 TAB PO DAILY, (Reported) Follow Up pcp , LETICIA Muhammad MD Mar 18, 2017 13:51
[2017-03-18 16:00] VITALS: BP 125/60
[2017-03-22] MEDS ORDERED: ERGOCALCIFEROL (VITAMIN D2) 50,000 UNIT CAPSULE. PO SCH (09:00)
== END 2017-03-18 17:00 | disposition home or self-care (01) | DRG 100 ==
LOC: ER 20:14 → 1 WEST ICU 22:45
PROVIDERS: ADMIT Internal Medicine Hematology & Oncology; ATTEND Internal Medicine Hematology & Oncology
DX: R56.9 Unspecified convulsions (principal); G93.41 Metabolic encephalopathy; N18.6 End stage renal disease; I13.2 Hypertensive heart and chronic kidney disease with heart failure and with stage 5 chronic kidney disease, or end stage renal disease; N39.0 Urinary tract infection, site not specified; R18.8 Other ascites; D61.818 Other pancytopenia; E11.65 Type 2 diabetes mellitus with hyperglycemia; E03.9 Hypothyroidism, unspecified; E11.22 Type 2 diabetes mellitus with diabetic chronic kidney disease; E78.00 Pure hypercholesterolemia, unspecified; E78.5 Hyperlipidemia, unspecified; E87.6 Hypokalemia; I50.9 Heart failure, unspecified; J44.9 Chronic obstructive pulmonary disease, unspecified; K21.9 Gastro-esophageal reflux disease without esophagitis; E21.3 Hyperparathyroidism, unspecified; F32.9 Major depressive disorder, single episode, unspecified; F41.9 Anxiety disorder, unspecified; G56.03 Carpal tunnel syndrome, bilateral upper limbs; E11.42 Type 2 diabetes mellitus with diabetic polyneuropathy; M19.90 Unspecified osteoarthritis, unspecified site; E66.9 Obesity, unspecified; D64.9 Anemia, unspecified; R55 Syncope and collapse; I95.9 Hypotension, unspecified; K74.60 Unspecified cirrhosis of liver; Z79.4 Long term (current) use of insulin; Z79.82 Long term (current) use of aspirin; Z82.49 Family history of ischemic heart disease and other diseases of the circulatory system; Z86.73 Personal history of transient ischemic attack (TIA), and cerebral infarction without residual deficits; Z99.2 Dependence on renal dialysis; Z90.710 Acquired absence of both cervix and uterus; Z91.19 Patient's noncompliance with other medical treatment and regimen; Z88.8 Allergy status to other drugs, medicaments and biological substances; Z68.35 Body mass index [BMI] 35.0-35.9, adult
CPT/HCPCS: 36415; 51701; 70450; 70551; 71010; 76700; 80048; 80053; 80061; 80069; 81001; 82553; 82947; 82962; 83690; 83735; 83880; 84443; 84484; 85007; 85018; 85027; 87086; 87641; 93005; 93306; 93880; 94250; 94640; 94760; 96365; 96372; 96375; J0360; J0881; J1815; J2060; J2405; J7030; J7042; J7060; J7620; P9046; 97116; 97530; 99291-25

== ENCOUNTER → 2017-03-31 | Outpatient (CLI) | payer MEDICARE, OTHER ==
[~2017-03-31] VITALS: Ht 152.4 cm; Wt 80.3 kg
[~2017-03-31] MED LIST changes: +ASPI325T11 PO; +CHOL500016 PO; +CHOL500050 PO; +DIPH25CA58 PO; +IPRA3AMP NEB; +LEVO175T5 PO; +LOSA100T6 PO; +MULT-23 PO; +SERT50TA PO; +SEVE800T9 PO; +SODI650T PO; +TIZA2CAP PO
[2017-03-31 08:47] LABS: BASO % 1 % (0-3); EOS % 4 % (0-3); HEMATOCRIT 31.7 % (36.0-47.0); HEMOGLOBIN 10.7 g/dL (12.0-15.5); LYMPH # 0.5 x10^3/uL (1.0-4.8); LYMPH % 11 % (24-48); MEAN CORPUSCULAR HEMOGLOBIN 30 pg (25-35); MEAN CORPUSCULAR HGB CONC 34 g/dL (31-37); MEAN CORPUSCULAR VOLUME 90 fL (79-100); MONO % 6 % (0-9); NEUT % 77 % (31-73); PLATELET COUNT 74 x10^3/uL (140-400); RED BLOOD COUNT 3.53 x10^6/uL (3.50-5.40); RED CELL DISTRIBUTION WIDTH 16.4 % (11.5-14.5)
[2017-03-31 09:09] LABS: INR 1.4 (0.8-1.1); PROTHROMBIN TIME PATIENT 16.2 SEC (11.7-14.0)
[2017-03-31 09:19] VITALS: BP 117/55
--- NOTE | 2017-03-31 13:57 | RAD ---
Limited abdominal ultrasound 03/31/2017 Indication: Evaluation for paracentesis Discussion: Limited abdominal ultrasound was performed of the abdomen. Scant ascites is seen the right lower quadrant. No other significant ascites is identified. Paracentesis would be of questionable clinical benefit. This was discussed with the patient who elects to hold off on the procedure at this time. Impression: Only scant intra-abdominal ascites is noted. No paracentesis was performed.
== END | disposition home or self-care (01) ==
LOC: INTRAD 08:17
PROVIDERS: ATTEND Internal Medicine Gastroenterology
DX: K74.60 Unspecified cirrhosis of liver (principal); E78.00 Pure hypercholesterolemia, unspecified; J44.9 Chronic obstructive pulmonary disease, unspecified; E11.42 Type 2 diabetes mellitus with diabetic polyneuropathy; I13.2 Hypertensive heart and chronic kidney disease with heart failure and with stage 5 chronic kidney disease, or end stage renal disease; E11.22 Type 2 diabetes mellitus with diabetic chronic kidney disease; N18.6 End stage renal disease; I50.9 Heart failure, unspecified; E03.9 Hypothyroidism, unspecified; F41.9 Anxiety disorder, unspecified; F32.9 Major depressive disorder, single episode, unspecified; Z98.41 Cataract extraction status, right eye; Z98.42 Cataract extraction status, left eye; Z86.69 Personal history of other diseases of the nervous system and sense organs; Z90.710 Acquired absence of both cervix and uterus; Z99.2 Dependence on renal dialysis
CPT/HCPCS: 36415; 76705; 82962; 85027; 85610; C1887

== ENCOUNTER 2017-07-15 16:30 | Inpatient (IN) | payer MEDICARE, OTHER ==
[~2017-07-15] VITALS: Ht 152.4 cm; Wt 80.3 kg
[~2017-07-15 16:30] MED LIST changes: +METO-239 PO; -METO25TA9 PO
[2017-07-15] MEDS ORDERED: IPRATRPIUM/ALBUTEROL 0.5/2.5MG 3 ML NEBU. NEB ONE (17:00)
[2017-07-15] MEDS ORDERED: methylPREDNISolone SOD SUCC PF 125 MG/2 ML VIAL. IV ONE (17:00)
[2017-07-15] MEDS ORDERED: AZITHRMYCN 500MG IVPB FOR OMNI 250 ML IV ONE (17:00)
[2017-07-15] MEDS: IV NORMAL SALINE 1000ML BAG 1,000 ML IV SCH (17:12)
--- NOTE | 2017-07-15 17:13 | PHYS DOC ---
Past Medical History Past Medical History: Asthma, CHF, COPD, CVA, Depression, Diabetes-Type II, GERD, High Cholesterol, Hypertension, Hypothyroid, Renal Disease, Renal Failure , Other Additional Past Medical Histor: vertigo, Charcoe Qiana Tooth, neuropathy, Cirrhosis Past Surgical History: Hysterectomy, Other Additional Past Surgical Histo: bilat cataracts, L knee, bilat carpal tunnel, R trigger finger, R foot Alcohol Use: None Drug Use: None Adult General Chief Complaint Chief Complaint: SHORTNESS OF BREATH HPI HPI 71-year-old female with a history of CHF and COPD, no longer smokes but uses 2 L home O2 as needed. Patient now presents the emergency department because of productive cough worsening over several days with fevers today as high as 101. She's also had wheezing and shortness of breath beyond her baseline. Patient denies chest pain. She is a type II diabetic on insulin as well. Patient feels she has a pulmonary illness. She has not been admitted to the hospital for more than 2 days within the last 90 days and patient lives at home with her . She is a dialysis patient is been compliant with her dialysis with most recent treatment yesterday. No other complaints Review of Systems Review of Systems Constitutional: Denies fever or chills [] Eyes: Denies change in visual acuity, redness, or eye pain [] HENT: Denies nasal congestion or sore throat [] Respiratory: Denies cough or shortness of breath [] Cardiovascular: No additional information not addressed in HPI [] GI: Denies abdominal pain, nausea, vomiting, bloody stools or diarrhea [] : Denies dysuria or hematuria [] Musculoskeletal: Denies back pain or joint pain [] Integument: Denies rash or skin lesions [] Neurologic: Denies headache, focal weakness or sensory changes [] Endocrine: Denies polyuria or polydipsia [] All other systems were reviewed and found to be within normal limits, except as documented in this note. Current Medications Current Medications Current Medications Medications (Trade) Dose Ordered Sig/Vijay Start Time Stop Time Status Last Admin Dose Admin Acetaminophen (Tylenol) 650 mg PRN Q6HRS PRN 07/15/17 17:30 Acetaminophen/ Hydrocodone Bitart (Lortab 5/325) 2 tab PRN Q6HRS PRN 07/15/17 17:45 Al Hydroxide/Mg Hydroxide (Mylanta Plus Xs) 30 ml PRN Q3HRS PRN 07/15/17 17:30 Albuterol/ Ipratropium (Duoneb) 3 ml 1X ONCE 07/15/17 17:00 07/15/17 17:01 DC 07/15/17 17:27 3 ML Azithromycin 250 ml @ 250 mls/hr 1X ONCE 07/15/17 17:00 07/15/17 17:59 DC 07/15/17 18:30 250 MLS/HR Azithromycin 500 mg/Sodium Chloride 250 ml @ 250 mls/hr Q24H 07/15/17 17:30 07/15/17 18:57 DC Calcium Carbonate/ Glycine (Tums) 500 mg PRN Q3HRS PRN 07/15/17 17:30 Ceftriaxone Sodium 1 gm/ Dextrose 50 ml @ 100 mls/hr Q24H 07/15/17 17:30 07/15/17 18:56 DC Ceftriaxone Sodium 50 ml @ 100 mls/hr 1X ONCE 07/15/17 17:00 07/15/17 17:29 DC 07/15/17 17:19 100 MLS/HR Dextrose (Dextrose 50%-Water Syringe) 12.5 gm PRN Q15MIN PRN 07/15/17 17:45 Guaifenesin (Robitussin Dm) 10 ml PRN Q6HRS PRN 07/15/17 17:30 Lactulose 20 gm PRN Q12HR PRN 07/15/17 17:30 Magnesium Hydroxide (Milk Of Magnesia) 2,400 mg PRN Q12HR PRN 07/15/17 17:30 Methylprednisolone Sodium Succinate (SOLU-Medrol 125MG VIAL) 125 mg 1X ONCE 07/15/17 17:00 07/15/17 17:01 DC 07/15/17 17:15 125 MG Morphine Sulfate 1 mg PRN Q1HR PRN 07/15/17 17:30 Non-Formulary Medication 10 gm PRN TID PRN 07/15/17 17:45 UNV Ondansetron HCl (Zofran Odt) 4 mg PRN Q6HRS PRN 07/15/17 18:15 Ondansetron HCl (Zofran) 4 mg PRN Q8HRS PRN 07/15/17 18:30 07/16/17 18:29 Prochlorperazine (Compazine) 25 mg PRN Q12HR PRN 07/15/17 17:30 Prochlorperazine Edisylate (Compazine) 10 mg PRN Q6HRS PRN 07/15/17 17:30 Sodium Chloride 1,000 ml @ 125 mls/hr Q8H 07/15/17 18:17 07/16/17 18:16 07/16/17 03:56 125 MLS/HR Tizanidine HCl (Zanaflex) 2 mg PRN Q12HRS PRN 07/15/17 18:15 Allergies Allergies Allergies Coded Allergies Type Severity Reaction Last Updated Verified adhesive Allergy Intermediate Rash 04/09/16 Yes Physical Exam Physical Exam Constitutional: Well developed, well nourished, no acute distress, non-toxic appearance. [] HENT: Normocephalic, atraumatic, bilateral external ears normal, oropharynx moist, no oral exudates, nose normal. [] Eyes: PERRLA, EOMI, conjunctiva normal, no discharge. [] Neck: Normal range of motion, no tenderness, supple, no stridor. [] Cardiovascular:Heart rate regular rhythm, no murmur [] Lungs & Thorax: Bilateral breath sounds clear to auscultation [] Abdomen: Bowel sounds normal, soft, no tenderness, no masses, no pulsatile masses. [] Skin: Warm, dry, no erythema, no rash. [] Back: No tenderness, no CVA tenderness. [] Extremities: No tenderness, no cyanosis, no clubbing, ROM intact, no edema. [] Neurologic: Alert and oriented X 3, normal motor function, normal sensory function, no focal deficits noted. [] Psychologic: Affect normal, judgement normal, mood normal. [] Current Patient Data Vital Signs Vital Signs Date Time Temp Pulse Resp B/P (MAP) Pulse Ox O2 Delivery O2 Flow Rate FiO2 07/15/17 18:21 55 22 143/65 (91) 97 Nasal Cannula 2.0 07/15/17 16:43 98.4 98.4 Lab Values Laboratory Tests Test 07/15/17 17:08 White Blood Count 3.4 x10^3/uL (4.0-11.0) L Red Blood Count 3.54 x10^6/uL (3.50-5.40) Hemoglobin 10.8 g/dL (12.0-15.5) L Hematocrit 32.5 % (36.0-47.0) L Mean Corpuscular Volume 92 fL (79-100) Mean Corpuscular Hemoglobin 31 pg (25-35) Mean Corpuscular Hemoglobin Concent 33 g/dL (31-37) Red Cell Distribution Width 15.8 % (11.5-14.5) H Platelet Count 59 x10^3/uL (140-400) L Neutrophils (%) (Auto) 64 % (31-73) Lymphocytes (%) (Auto) 16 % (24-48) L Monocytes (%) (Auto) 15 % (0-9) H Eosinophils (%) (Auto) 4 % (0-3) H Basophils (%) (Auto) 1 % (0-3) Neutrophils # (Auto) 2.2 x10^3uL (1.8-7.7) Lymphocytes # (Auto) 0.6 x10^3/uL (1.0-4.8) L Monocytes # (Auto) 0.5 x10^3/uL (0.0-1.1) Eosinophils # (Auto) 0.1 x10^3/uL (0.0-0.7) Basophils # (Auto) 0.0 x10^3/uL (0.0-0.2) Sodium Level 139 mmol/L (136-145) Potassium Level 4.5 mmol/L (3.5-5.1) Chloride Level 103 mmol/L (98-107) Carbon Dioxide Level 27 mmol/L (21-32) Anion Gap 9 (6-14) Blood Urea Nitrogen 28 mg/dL (7-20) H Creatinine 3.6 mg/dL (0.6-1.0) H Estimated GFR (Cockcroft-Gault) 12.5 Glucose Level 201 mg/dL (70-99) H Lactic Acid Level 1.1 mmol/L (0.4-2.0) Calcium Level 8.0 mg/dL (8.5-10.1) L Troponin I Quantitative < 0.017 ng/mL (0.000-0.055) Laboratory Tests 07/15/17 17:08 Laboratory Tests 07/15/17 17:08 EKG EKG EKG with normal sinus rhythm at 57 normal axis no STEMI interpreted by me[] Radiology/Procedures Radiology/Procedures [] Course & Med Decision Making Course & Med Decision Making Pertinent Labs and Imaging studies reviewed. (See chart for details) Signs and symptoms consistent with pulmonary infection likely pneumonia clinically with fevers in the setting of COPD exacerbation. Patient has no orthopnea or significant lower extremity edema and does not seem to be manifesting clinical exacerbation of congestive heart failure. Full workup pending. Blood cultures drawn and sputum culture will be collected if available. Antibiotic coverage for pneumonia initiated Anticipate inpatient admission for further workup and treatment. [] Dragon Disclaimer Dragon Disclaimer This electronic medical record was generated, in whole or in part, using a voice recognition dictation system. Departure Departure Impression: Primary Impression: COPD exacerbation Additional Impressions: Pneumonia Fever Acute dyspnea Disposition: 09 ADMITTED INPATIENT Admitting Physician: Tori Funez Condition: IMPROVED Referrals: CATHLEEN OLGUIN (PCP) Problem Qualifiers LUDWIG LORENZO MD Jul 15, 2017 17:13
[2017-07-15 17:23] LABS: BASO % 1 % (0-3); EOS % 4 % (0-3); HEMATOCRIT 32.5 % (36.0-47.0); HEMOGLOBIN 10.8 g/dL (12.0-15.5); LYMPH # 0.6 x10^3/uL (1.0-4.8); LYMPH % 16 % (24-48); MEAN CORPUSCULAR HEMOGLOBIN 31 pg (25-35); MEAN CORPUSCULAR HGB CONC 33 g/dL (31-37); MEAN CORPUSCULAR VOLUME 92 fL (79-100); MONO % 15 % (0-9); NEUT % 64 % (31-73); PLATELET COUNT 59 x10^3/uL (140-400); RED BLOOD COUNT 3.54 x10^6/uL (3.50-5.40); RED CELL DISTRIBUTION WIDTH 15.8 % (11.5-14.5); WHITE BLOOD COUNT 3.4 x10^3/uL (4.0-11.0)
[2017-07-15] MEDS ORDERED: PROCHLORPERAZINE 10 MG/2 ML VIAL. IV PRN (17:30)
[2017-07-15] MEDS ORDERED: guaiFENesin DM 200MG/20MG 10 ML SYRUP PO PRN (17:30)
[2017-07-15] MEDS ORDERED: CALCIUM CARBONATE 500 MG TAB.CHEW PO PRN (17:30)
[2017-07-15] MEDS ORDERED: MAGNESIUM HYDROXIDE 2,400 MG/30 ML ORAL.SUSP. PO PRN (17:30)
[2017-07-15] MEDS ORDERED: PROCHLORPERAZINE 25 MG SUPP.RECT. PR PRN (17:30)
[2017-07-15] MEDS ORDERED: LACTULOSE 20 GM/30 ML SOLUTION. PO PRN (17:30)
[2017-07-15] MEDS ORDERED: MORPHINE SULFATE 2 MG/ML DISP.SYRIN. IV PRN (17:30)
[2017-07-15] MEDS ORDERED: ACETAMINOPHEN 325 MG TABLET. PO PRN (17:30)
[2017-07-15] MEDS ORDERED: MAG HYDROX/ALUMINUM HYD/SIMETH 30 ML ORAL.SUSP PO PRN (17:30)
[2017-07-15] MEDS ORDERED: ONDANSETRON PF 4 MG/2 ML VIAL. IV PRN ×2 (17:30→18:30)
[2017-07-15] MEDS ORDERED: AZITHROMYCIN 500 MG in IV NORMAL SALINE 250ML 250 ML IV SCH (17:30)
[2017-07-15 17:33] LABS: CREATININE 3.6 mg/dL (0.6-1.0); GFR 12.5; POTASSIUM 4.5 mmol/L (3.5-5.1)
--- NOTE | 2017-07-15 17:40 | EKG ---
[facility] [address] [place] [address] Test Date: 2017-07-15 Test Time: 16:45:48 Pat Name: YIN DIAZ Department: Room: Gender: Female Clinical Data Research: : 1945 Requested By: LUDWIG LORENZO Order Number: [id number] Reading MD: Thomas Farr Measurements Intervals [place] Rate: 57 P: 61 NM: 226 QRS: 1 QRSD: 80 T: 86 QT: 444 QTc: 435 Interpretive Statements SINUS RHYTHM PROLONGED NM INTERVAL T ABNORMALITY IN HIGH LATERAL LEADS ABNORMAL ECG Electronically Signed On 07-28-2017 13:56:14 MACHINE GREASER by Thomas Farr
[2017-07-15] MEDS ORDERED: DEXTROSE 50% 25 GM / 50ML DISP.SYRIN. IV PRN (17:45)
[2017-07-15] MEDS ORDERED: LACTULOSE 10 GM PO PRN (17:45)
[2017-07-15] MEDS ORDERED: HYDROcodone/APAP 5/325MG 1 TAB TABLET PO PRN (17:45)
--- NOTE | 2017-07-15 17:45 | PDOC1 ---
History and Physical Date of Admission Date of Admission DATE: 07/15/17 TIME: 17:40 Identification/Chief Complaint Chief Complaint SOA, phlegm Problems: Source Source: Caregiver, Chart review, Patient History of Present Illness History of Present Illness 71 y.o female known to me from advanced cirrhosis at one point needing abd paracentesis every so often, has been out of the hospital at least 90 days now, cough yellowish phlegm, fevers at home. being treated for CAP, CBC pending, She is drowsy bec she took nyquil today and given her liver fcn she does not metabolize this that well. VS ok, On HD, never missed as session, claims complaince to PO home meds Past Medical History Cardiovascular: CHF, HTN, Hyperlipidemia, Other Pulmonary: No pertinent hx, Other CENTRAL NERVOUS SYSTEM: CVA, Periperal neuropathy GI: GERD, Other Heme/Onc: Other Hepatobiliary: Cirrhosis Psych: Anxiety, Depression Musculoskeletal: Osteoarthritis, Other Rheumatologic: No pertinent hx Infectious disease: No pertinent hx Renal/: Chronic renal failure Endocrine: Diabetes, Hyperparathyroidism Past Surgical History Past Surgical History: Hysterectomy, Other Family History Family History: No Significant, Hypertension, Other Social History Smoke: No ALCOHOL: none Drugs: None Current Problem List Problem List Problems Medical Problems: (1) Acute dyspnea Status: Acute (2) COPD exacerbation Status: Acute (3) Fever Status: Acute (4) Pneumonia Status: Acute Problems: Current Medications Current Medications Current Medications Sodium Chloride 1,000 ml @ 125 mls/hr Q8H IV Last administered on 07/15/17 17:12; Start 07/15/17 at 16:52; Stop 07/16/17 at 16:51 Albuterol/ Ipratropium (Duoneb) 3 ml 1X ONCE NEB Last administered on 17:27; Start 07/15/17 at 17:00; Stop 07/15/17 at 17:01; Status DC Methylprednisolone Sodium Succinate (SOLU-Medrol 125MG VIAL) 125 mg 1X ONCE IV Last administered on 07/15/17 17:15; Start 07/15/17 at 17:00; Stop at 17:01; Status DC Ceftriaxone Sodium 1 gm/ Dextrose 50 ml @ 0 mls/hr 1X ONCE IV ; Start at 17:00; Stop 07/15/17 at 17:01; Status UNV Azithromycin 250 ml @ 250 mls/hr 1X ONCE IV ; Start 07/15/17 at 17:00; Stop 07/15/17 at 17:59 Ceftriaxone Sodium 50 ml @ 100 mls/hr 1X ONCE IV Last administered on t 17:19; Start 07/15/17 at 17:00; Stop 07/15/17 at 17:29; Status DC Ondansetron HCl (Zofran) 4 mg PRN Q6HRS PRN IV NAUSEA/VOMITING; Start at 17:30; Status UNV Prochlorperazine Edisylate (Compazine) 10 mg PRN Q6HRS PRN IV NAUSEA/VOMITING; Start 07/15/17 at 17:30 Prochlorperazine (Compazine) 25 mg PRN Q12HR PRN [place] NAUSEA/VOMITING; Start at 17:30 Al Hydroxide/Mg Hydroxide (Mylanta Plus Xs) 30 ml PRN Q3HRS PRN PO HEARTBURN / GAS; Start 07/15/17 at 17:30 Calcium Carbonate/ Glycine (Tums) 500 mg PRN Q3HRS PRN PO UPSET STOMACH; Start 07/15/17 at 17:30 Morphine Sulfate 1 mg PRN Q1HR PRN IV PAIN; Start 07/15/17 at 17:30 Acetaminophen (Tylenol) 650 mg PRN Q6HRS PRN PO Headaches, Temp > 101.5F; Start 07/15/17 at 17:30 Docusate Sodium (Colace) 100 mg BID PO ; Start 07/15/17 at 21:00 Magnesium Hydroxide (Milk Of Magnesia) 2,400 mg PRN Q12HR PRN PO CONSTIPATION; Start 07/15/17 at 17:30 Lactulose 20 gm PRN Q12HR PRN PO CONSTIPATION; Start 07/15/17 at 17:30 Heparin Sodium (Porcine) (Heparin Sq) 5,000 unit Q8HRS SQ ; Start 07/15/17 at 22:00 Albuterol/ Ipratropium (Duoneb) 3 ml RTQID NEB ; Start 07/15/17 at 20:00 Benzonatate (Tessalon Perle) 100 mg [id number] PO ; Start 07/15/17 at 21:00 Guaifenesin (Robitussin Dm) 10 ml PRN Q6HRS PRN PO COUGH; Start 07/15/17 at 17 :30 Ceftriaxone Sodium 1 gm/ Dextrose 50 ml @ 100 mls/hr Q24H IV ; Start 07/15/17 at 17:30; Status UNV Azithromycin 500 mg/Sodium Chloride 250 ml @ 250 mls/hr Q24H IV ; Start at 17:30; Status UNV Aspirin (Ecotrin) 325 mg DAILYWBKFT PO ; Start 07/16/17 at 08:00 Clonidine HCl (Catapres) 0.2 mg DAILY PO ; Start 07/16/17 at 09:00; Status UNV Diclofenac Sodium (Voltaren) 1 ronel BID TP ; Start 07/15/17 at 21:00; Status UNV Famotidine (Pepcid) 20 mg DAILY PO ; Start 07/16/17 at 09:00; Status UNV Gabapentin (Neurontin) 100 mg DAILY PO ; Start 07/16/17 at 09:00; Status UNV Acetaminophen/ Hydrocodone Bitart (Lortab 5/325) 2 tab PRN Q6HRS PRN PO PAIN; Start 07/15/17 at 17:45; Status UNV Insulin Aspart (NovoLOG) 25 units TIDAC SQ ; Start 07/16/17 at 07:30; Status UNV Levothyroxine Sodium (Synthroid) 125 mcg DAILYAC PO ; Start 07/16/17 at 07:30; Status UNV Metoprolol Succinate (Toprol Xl) 25 mg DAILY PO ; Start 07/16/17 at 09:00; Status UNV Rifaximin (Xifaxan) 550 mg BID PO ; Start 07/15/17 at 21:00; Status UNV Sertraline HCl (Zoloft) 75 mg DAILY PO ; Start 07/16/17 at 09:00; Status UNV Sevelamer Carbonate (Renvela) 800 mg TIDWMEALS PO ; Start 07/16/17 at 08:00; Status UNV Non-Formulary Medication 50,000 unit DAILY PO ; Start 07/16/17 at 09:00; Status UNV Non-Formulary Medication 30 unit QHS SQ ; Start 07/15/17 at 21:00; Status UNV Non-Formulary Medication 1 tab DAILY PO ; Start 07/16/17 at 09:00; Status UNV Non-Formulary Medication 10 gm PRN TID PRN PO CONSTIPATION; Start 07/15/17 at 17:45; Status UNV Non-Formulary Medication 1 tab TID PO ; Start 07/15/17 at 21:00; Status UNV Non-Formulary Medication 1 each DAILY PO ; Start 07/16/17 at 09:00; Status UNV Non-Formulary Medication 4 mg Q6HRS PRN PO NAUSEA/VOMITING; Start 07/15/17 at 17:45; Status UNV Non-Formulary Medication 2 mg BID PRN PO MUSCLE SPASMS; Start 07/15/17 at 17: 45; Status UNV Insulin Aspart (NovoLOG) 0-9 UNITS TIDWMEALS SQ ; Start 07/16/17 at 08:00; Status UNV Dextrose (Dextrose 50%-Water Syringe) 12.5 gm PRN Q15MIN PRN IV SEE COMMENTS; Start 07/15/17 at 17:45; Status UNV Active Scripts Active Aspirin Ec (Aspirin) 325 Mg Tablet.dr 325 Mg PO DAILYWBKFT 30 Days Reported Novolog Flexpen (Insulin Aspart) 100 Unit/1 Ml Insuln.pen 25 Unit SQ TIDAC Vitamin D (Cholecalciferol (Vitamin D3)) 50,000 Unit Capsule 50,000 Unit PO DAILY Tizanidine Hcl 2 Mg Capsule 2 Mg PO BID PRN Meclizine Hcl 25 Mg Tablet 1 Tab PO TID Voltaren (Diclofenac Sodium) 100 Gm Gel..gram. 1 Gm TP BID Hydrocodone-Apap 5-325 (Hydrocodone Bit/Acetaminophen) 1 Each Tablet 2 Tab PO PRN Q6HRS PRN Clonidine Hcl 0.2 Mg Tablet 0.2 Mg PO DAILY Gabapentin 100 Mg Capsule 100 Mg PO DAILY Zoloft (Sertraline Hcl) 50 Mg Tablet 75 Mg PO DAILY Renvela (Sevelamer Carbonate) 800 Mg Tablet 1 Tab PO TIDWMEALS Levothyroxine Sodium 175 Mcg Tablet 125 Mcg PO DAILYAC Lactulose 20 Gm/30 Ml Solution 10 Gm PO PRN TID PRN Dialyvite [place] D Tablet (Multivitamin, Min Cmb#25/Fa/D3) 1 Each Tablet 1 Each PO DAILY Metoprolol Succinate ( Xl ) (Metoprolol Succinate) 25 Mg Tab.er.24h 25 Mg PO DAILY Lantus Solostar (Insulin Glargine,Hum.rec.anlog) 100 Unit/1 Ml Insuln.pen 30 Unit SQ QHS Ondansetron Hcl 4 Mg Tablet 4 Mg PO Q6HRS PRN Zolpidem Tartrate 5 Mg Tablet 5 Mg PO PRN QHS PRN Famotidine 20 Mg Tablet 20 Mg PO DAILY Xifaxan (Rifaximin) 550 Mg Tablet 1 Tab PO BID Isosorbide Dinitrate 30 Mg Tablet 1 Tab PO DAILY Allergies Allergies: Coded Allergies: adhesive (Verified Allergy, Intermediate, Rash, 04/09/16) TAPE ROS General: YES: Chills, Fatigue, Malaise Eyes: No Blurry vision, No Decreased vision, No Double vision, No Dry eyes, No Excessive tearing, No Eye Pain, No Itchy Eyes, No Loss of vision, No Photophobia , No Scotomata, No Uses contacts, No Uses glasses, No Other HEENT: No: Heacaches, Visual Changes, Hearing change, Nasal congestion, Nasal discharge, Oral lesions, Sinus pain, Sore Throat, Epistaxis, Sneezing, Snoring, Tinnitus, Vertigo, Vocal changes, Other Hematological and Lymphatic: No: Bleeding Problems, Blood Clots, Blood Transfusions, Brusing, Night Sweats, Pallor, Swollen Lymph Nodes, Other ENDOCRINE: No: Breast Changes, Galactorrhea, Hair Pattern Changes, Hot Flashes , Malaise/lethargy, Mood Swings, Palpitations, Polydipsia/polyuria, Skin Changes , Temperature Intolerance, Unexpected Weight Changes, Other Respiratory: YES: Cough, Shortness of breath, SOB with excertion, Sputum Changes, No: Hemoptysis, Orthopnea, Pleuritic Pain, Stridor, Tachypnea, Wheezing, Other Cardiovascular: No Chest Pain, No Palpitations, No Orthopnea, No Paroxysmal Noc. Dyspnea, No Edema, No Lt Headedness, No Other Genitourinary: No Dysuria, No Frequency, No Incontinence, No Hematuria, No Retention, No Discharge, No Urgency, No Pain, No Flank Pain, No Other, No , No , No , No , No , No , No Musculoskeletal: No Gait Disturbance, No Joint Pain, No Joint Stiffness, No Joint Swelling, No Muscle Pain, No Muscular Weakness, No Pain In:, No Swelling In:, No Other Neurological: No Behavorial Changes, No Bowel/Bladder ControlChng, No Confusion , No Dizziness, No Gait Disturbance, No Headaches, No Impaired Coord/balance, No Memory Loss, No Numbness/Tingling, No Seizures, No Speech Problems, No Tremors, No Visual Changes, No Weakness, No Other Skin: No Dry Skin, No Eczema, No Hair Changes, No Lumps, No Mole Changes, No Mottling, No Nail Changes, No Pruritus, No Rash, No Skin Lesion Changes, No Other, No Acne Physical Exam General: Alert, Oriented X3, Cooperative, No acute distress HEENT: Atraumatic, PERRLA, EOMI Lungs: Clear to auscultation, Normal air movement Heart: S1S2, RRR, no thrills, no rubs, no gallops, no murmurs Cardiovascular: S1, S2 Breasts: Normal, Rt breast nml w/o mass, Lt breast nml w/o mass, Nipples normal Abdomen: Normal bowel sounds, Soft, No tenderness, No hepatosplenomegaly, No masses Rectal Exam: not examined PELVIC: Nml ext genitalia Extremities: No clubbing, No cyanosis, No edema, Normal pulses, No tenderness/ swelling Skin: No rashes, No breakdown, No significant lesion Neuro: Normal gait, Normal speech, Strength at 5/5 X4 ext, Normal tone, Sensation intact, Cranial nerves 3-12 NL, Reflexes 2+ Psych/Mental Status: Mental status NL, Mood NL Vitals Vitals Vital Signs Date Time Temp Pulse Resp B/P (MAP) Pulse Ox O2 Delivery O2 Flow Rate FiO2 07/15/17 17:27 92 Room Air 07/15/17 17:21 56 20 131/60 (83) 07/15/17 16:43 98.4 98.4 Labs Labs Laboratory Tests Test 07/15/17 17:08 White Blood Count 3.4 x10^3/uL (4.0-11.0) Red Blood Count 3.54 x10^6/uL (3.50-5.40) Hemoglobin 10.8 g/dL (12.0-15.5) Hematocrit 32.5 % (36.0-47.0) Mean Corpuscular Volume 92 fL (79-100) Mean Corpuscular Hemoglobin 31 pg (25-35) Mean Corpuscular Hemoglobin Concent 33 g/dL (31-37) Red Cell Distribution Width 15.8 % (11.5-14.5) Platelet Count 59 x10^3/uL (140-400) Neutrophils (%) (Auto) 64 % (31-73) Lymphocytes (%) (Auto) 16 % (24-48) Monocytes (%) (Auto) 15 % (0-9) Eosinophils (%) (Auto) 4 % (0-3) Basophils (%) (Auto) 1 % (0-3) Neutrophils # (Auto) 2.2 x10^3uL (1.8-7.7) Lymphocytes # (Auto) 0.6 x10^3/uL (1.0-4.8) Monocytes # (Auto) 0.5 x10^3/uL (0.0-1.1) Eosinophils # (Auto) 0.1 x10^3/uL (0.0-0.7) Basophils # (Auto) 0.0 x10^3/uL (0.0-0.2) Sodium Level 139 mmol/L (136-145) Potassium Level 4.5 mmol/L (3.5-5.1) Chloride Level 103 mmol/L (98-107) Carbon Dioxide Level 27 mmol/L (21-32) Anion Gap 9 (6-14) Blood Urea Nitrogen 28 mg/dL (7-20) Creatinine 3.6 mg/dL (0.6-1.0) Estimated GFR (Cockcroft-Gault) 12.5 Glucose Level 201 mg/dL (70-99) Calcium Level 8.0 mg/dL (8.5-10.1) Laboratory Tests Test 07/15/17 17:08 White Blood Count 3.4 x10^3/uL (4.0-11.0) Red Blood Count 3.54 x10^6/uL (3.50-5.40) Hemoglobin 10.8 g/dL (12.0-15.5) Hematocrit 32.5 % (36.0-47.0) Mean Corpuscular Volume 92 fL (79-100) Mean Corpuscular Hemoglobin 31 pg (25-35) Mean Corpuscular Hemoglobin Concent 33 g/dL (31-37) Red Cell Distribution Width 15.8 % (11.5-14.5) Platelet Count 59 x10^3/uL (140-400) Neutrophils (%) (Auto) 64 % (31-73) Lymphocytes (%) (Auto) 16 % (24-48) Monocytes (%) (Auto) 15 % (0-9) Eosinophils (%) (Auto) 4 % (0-3) Basophils (%) (Auto) 1 % (0-3) Neutrophils # (Auto) 2.2 x10^3uL (1.8-7.7) Lymphocytes # (Auto) 0.6 x10^3/uL (1.0-4.8) Monocytes # (Auto) 0.5 x10^3/uL (0.0-1.1) Eosinophils # (Auto) 0.1 x10^3/uL (0.0-0.7) Basophils # (Auto) 0.0 x10^3/uL (0.0-0.2) Sodium Level 139 mmol/L (136-145) Potassium Level 4.5 mmol/L (3.5-5.1) Chloride Level 103 mmol/L (98-107) Carbon Dioxide Level 27 mmol/L (21-32) Anion Gap 9 (6-14) Blood Urea Nitrogen 28 mg/dL (7-20) Creatinine 3.6 mg/dL (0.6-1.0) Estimated GFR (Cockcroft-Gault) 12.5 Glucose Level 201 mg/dL (70-99) Calcium Level 8.0 mg/dL (8.5-10.1) VTE Prophylaxis Ordered VTE Prophylaxis Devices: Yes VTE Pharmacological Prophylaxi: Yes Assessment/Plan Assessment/Plan 1. CAP 2. HX advanced cirrhosis and multiple abd taps in the past 3. Obesity 4. Carpal tunnel syndrome; end-stage renal disease, on hemodialysis; cirrhosis; splenomegaly; portal hypertension; ascites; encephalopathy; hypothyroidism; hypercholesterolemia; GERD; diabetes mellitus; congestive heart failure; asthma; COPD; CVA; vertigo; Dwskbcz-Xlqjy-Fzdut syndrome; neuropathy. 5. ESRD in HD 6,. ANemia of ESRD PLAn: Admit 2mN CAP coverage Renal consult for hD PT./OT Rsume home meds Duonebs COugh med Ff up basic labs Seen at ER Dw , HANNA Roldan MD Jul 15, 2017 17:45
[2017-07-15] MEDS ORDERED: tiZANidine 4 MG TABLET. PO PRN (18:15)
[2017-07-15] MEDS ORDERED: ONDANSETRON ODT 4 MG TAB.RAPDIS. PO PRN (18:15)
[2017-07-15 19:00] VITALS: BP 113/46
[2017-07-15] MEDS: IPRATRPIUM/ALBUTEROL 0.5/2.5MG 3 ML NEBU. NEB SCH (19:43)
[2017-07-15] MEDS: DICLOFENAC SODIUM 1% TOPICAL GEL 100GM TUBE. TP SCH (21:00)
[2017-07-15] MEDS: INSULIN DETEMIR 300 UNITS/3 ML INSULN.PEN. SQ SCH (21:00)
[2017-07-15] MEDS: DOCUSATE SODIUM 100 MG CAPSULE. PO SCH (21:00)
[2017-07-15] MEDS: BENZONATATE 100 MG CAPSULE. PO SCH (22:05)
[2017-07-15] MEDS: rifAXIMin 550 MG TABLET PO SCH (22:05)
[2017-07-15] MEDS: MECLIZINE HCL 12.5 MG TABLET. PO SCH (22:06)
[2017-07-15] MEDS: HEPARIN PF for SUB-Q USE 5,000 UNIT/0.5 ML VIAL. SQ SCH (22:12)
[2017-07-15 22:44] VITALS: BP 119/51
[2017-07-16 03:00] VITALS: BP 130/46
[2017-07-16] MEDS: IV NORMAL SALINE 1000ML BAG 1,000 ML IV SCH ×4 (03:56→10:17)
[2017-07-16 04:56] LABS: BASO % 0 % (0-3); EOS % 0 % (0-3); HEMATOCRIT 30.3 % (36.0-47.0); LYMPH # 0.2 x10^3/uL (1.0-4.8); LYMPH % 10 % (24-48); MEAN CORPUSCULAR HEMOGLOBIN 31 pg (25-35); MEAN CORPUSCULAR HGB CONC 33 g/dL (31-37); MEAN CORPUSCULAR VOLUME 93 fL (79-100); MONO % 2 % (0-9); NEUT % 87 % (31-73); PLATELET COUNT 45 x10^3/uL (140-400); RED BLOOD COUNT 3.27 x10^6/uL (3.50-5.40); RED CELL DISTRIBUTION WIDTH 15.9 % (11.5-14.5); WHITE BLOOD COUNT 2.2 x10^3/uL (4.0-11.0)
[2017-07-16 05:23] LABS: CALCIUM 7.6 mg/dL (8.5-10.1); CREATININE 4.1 mg/dL (0.6-1.0); GFR 10.8; POTASSIUM 5.9 mmol/L (3.5-5.1)
[2017-07-16] MEDS: LEVOTHYROXINE 125 MCG TABLET PO SCH (06:22)
[2017-07-16] MEDS: HEPARIN PF for SUB-Q USE 5,000 UNIT/0.5 ML VIAL. SQ SCH ×3 (06:26→21:27)
[2017-07-16] MEDS ORDERED: INSULIN ASPART 300 UNITS/3 ML INSULN.PEN SQ ONE ×2 (06:30→09:00)
[2017-07-16 06:59] LABS: ANISOCYTOSIS PRESENT; PLT ESTIMATE DECREASED (ADEQUATE)
[2017-07-16 07:30] VITALS: BP 142/54
[2017-07-16] MEDS: IPRATRPIUM/ALBUTEROL 0.5/2.5MG 3 ML NEBU. NEB SCH ×4 (07:54→20:43)
--- NOTE | 2017-07-16 08:08 | RAD ---
EXAM: Chest one view. HISTORY: Cough and bodyaches. COMPARISON: 03/14/2017. FINDINGS: A frontal view of the chest is obtained. There are mild interstitial opacities in the bases. Pulmonary vascular redistribution is noted. There is no pneumothorax. Tiny pleural effusions cannot be excluded. Interval aorta The heart is moderately enlarged. IMPRESSION: 1. Moderate cardiomegaly. Correlate for volume overload.
[2017-07-16] MEDS: MULTIVITAMIN with MINERAL TABLET. PO SCH (08:12)
[2017-07-16] MEDS: FAMOTIDINE 20 MG TABLET. PO SCH (08:12)
[2017-07-16] MEDS: BENZONATATE 100 MG CAPSULE. PO SCH ×3 (08:12→21:17)
[2017-07-16] MEDS: ASPIRIN ENTERIC COATED 325 MG TABLET.DR. PO SCH (08:12)
[2017-07-16] MEDS: MECLIZINE HCL 12.5 MG TABLET. PO SCH ×3 (08:12→21:17)
[2017-07-16] MEDS: GABAPENTIN 100 MG CAPSULE. PO SCH (08:13)
[2017-07-16] MEDS: SERTRALINE 25 MG TABLET. PO SCH (08:13)
[2017-07-16] MEDS: rifAXIMin 550 MG TABLET PO SCH ×2 (08:13→21:17)
[2017-07-16] MEDS: SEVELAMER CARBONATE 800 MG TABLET. PO SCH ×3 (08:14→18:14)
[2017-07-16] MEDS: INSULIN ASPART 300 UNITS/3 ML INSULN.PEN SQ SCH ×6 (08:22→17:00)
[2017-07-16] MEDS: DOCUSATE SODIUM 100 MG CAPSULE. PO SCH ×2 (09:00→21:00)
[2017-07-16] MEDS: DICLOFENAC SODIUM 1% TOPICAL GEL 100GM TUBE. TP SCH ×2 (09:00→21:00)
[2017-07-16] MEDS: METOPROLOL SUCC 24HR ER 25 MG TAB.ER.24H. PO SCH (09:00)
[2017-07-16] MEDS: cloNIDine HCL 0.2 MG TABLET PO SCH (09:00)
[2017-07-16] MEDS ORDERED: ERGOCALCIFEROL (VITAMIN D2) 50,000 UNIT CAPSULE. PO SCH (09:00)
[2017-07-16] MEDS: ISOSORBIDE MONONITRATE ER 30 MG TAB.ER.24H PO SCH (09:00)
[2017-07-16] MEDS ORDERED: IV NORMAL SALINE 1000ML BAG 1,000 ML IV PRN ×2 (10:47)
[2017-07-16] MEDS ORDERED: DIALYSIS PATIENT. MC PRN (11:00)
[2017-07-16] MEDS ORDERED: ALBUMIN HUMAN 25% 200 ML IV PRN (11:00)
[2017-07-16] MEDS ORDERED: diphenhydrAMINE 50 MG/ML VIAL IV PRN (11:30)
[2017-07-16] MEDS: SODIUM BICARBONATE 650 MG TABLET. PO SCH (12:00)
--- NOTE | 2017-07-16 12:00 | PDOC2 ---
CONSULT Date of Consult Date of Consult DATE: 07/16/17 TIME: 11:59 Reason for Consult Reason for Consult: ESRD Referring Physician Referring Physician: Dee Dee Source Source: Chart review, Patient History of Present Illness Reason for Visit: as dictated Past Medical History Cardiovascular: CHF, HTN, Hyperlipidemia, Other Pulmonary: No pertinent hx, Other CENTRAL NERVOUS SYSTEM: CVA, Periperal neuropathy GI: GERD, Other Heme/Onc: Other Hepatobiliary: Cirrhosis Psych: Anxiety, Depression Musculoskeletal: Osteoarthritis, Other Rheumatologic: No pertinent hx Infectious disease: No pertinent hx Renal/: Chronic renal failure Endocrine: Diabetes, Hyperparathyroidism Past Surgical History Past Surgical History: Hysterectomy, Other Family History Family History: No Significant, Hypertension, Other Social History No ALCOHOL: none Drugs: None Lives: with Family Current Problem List Problem List Problems Medical Problems: (1) Acute dyspnea Status: Acute (2) COPD exacerbation Status: Acute (3) Fever Status: Acute (4) Pneumonia Status: Acute Current Medications Current Medications Current Medications Sodium Chloride 1,000 ml @ 125 mls/hr Q8H IV Last administered on 07/15/17 17:12; Start 07/15/17 at 16:52; Stop 07/16/17 at 16:51 Albuterol/ Ipratropium (Duoneb) 3 ml 1X ONCE NEB Last administered on 17:27; Start 07/15/17 at 17:00; Stop 07/15/17 at 17:01; Status DC Methylprednisolone Sodium Succinate (SOLU-Medrol 125MG VIAL) 125 mg 1X ONCE IV Last administered on 07/15/17 17:15; Start 07/15/17 at 17:00; Stop at 17:01; Status DC Ceftriaxone Sodium 1 gm/ Dextrose 50 ml @ 0 mls/hr 1X ONCE IV ; Start at 17:00; Stop 07/15/17 at 17:01; Status UNV Azithromycin 250 ml @ 250 mls/hr 1X ONCE IV Last administered on 07/15/17 18:30; Start 07/15/17 at 17:00; Stop 07/15/17 at 17:59; Status DC Ceftriaxone Sodium 50 ml @ 100 mls/hr 1X ONCE IV Last administered on 17:19; Start 07/15/17 at 17:00; Stop 07/15/17 at 17:29; Status DC Ondansetron HCl (Zofran) 4 mg PRN Q6HRS PRN IV NAUSEA/VOMITING; Start at 17:30 Prochlorperazine Edisylate (Compazine) 10 mg PRN Q6HRS PRN IV NAUSEA/VOMITING; Start 07/15/17 at 17:30 Prochlorperazine (Compazine) 25 mg PRN Q12HR PRN [place] NAUSEA/VOMITING; Start at 17:30 Al Hydroxide/Mg Hydroxide (Mylanta Plus Xs) 30 ml PRN Q3HRS PRN PO HEARTBURN / GAS; Start 07/15/17 at 17:30 Calcium Carbonate/ Glycine (Tums) 500 mg PRN Q3HRS PRN PO UPSET STOMACH; Start 07/15/17 at 17:30 Morphine Sulfate 1 mg PRN Q1HR PRN IV PAIN; Start 07/15/17 at 17:30 Acetaminophen (Tylenol) 650 mg PRN Q6HRS PRN PO Headaches, Temp > 101.5F; Start 07/15/17 at 17:30 Docusate Sodium (Colace) 100 mg BID PO ; Start 07/15/17 at 21:00 Magnesium Hydroxide (Milk Of Magnesia) 2,400 mg PRN Q12HR PRN PO CONSTIPATION; Start 07/15/17 at 17:30 Lactulose 20 gm PRN Q12HR PRN PO CONSTIPATION; Start 07/15/17 at 17:30 Heparin Sodium (Porcine) (Heparin Sq) 5,000 unit Q8HRS SQ Last administered on 07/16/17 06:26; Start 07/15/17 at 22:00 Albuterol/ Ipratropium (Duoneb) 3 ml RTQID NEB Last administered on 07/16/17 07:54; Start 07/15/17 at 20:00 Benzonatate (Tessalon Perle) 100 mg [id number] PO Last administered on 07/16/17 08:12; Start 07/15/17 at 21:00 Guaifenesin (Robitussin Dm) 10 ml PRN Q6HRS PRN PO COUGH; Start 07/15/17 at 17 :30 Ceftriaxone Sodium 1 gm/ Dextrose 50 ml @ 100 mls/hr Q24H IV ; Start 07/15/17 at 17:30; Stop 07/15/17 at 18:56; Status DC Azithromycin 500 mg/Sodium Chloride 250 ml @ 250 mls/hr Q24H IV ; Start at 17:30; Stop 07/15/17 at 18:57; Status DC Aspirin (Ecotrin) 325 mg DAILYWBKFT PO Last administered on 07/16/17 08:12; Start 07/16/17 at 08:00 Clonidine HCl (Catapres) 0.2 mg DAILY PO ; Start 07/16/17 at 09:00 Diclofenac Sodium (Voltaren) 1 ronel BID TP ; Start 07/15/17 at 21:00 Famotidine (Pepcid) 20 mg DAILY PO Last administered on 07/16/17 08:12; Start 07/16/17 at 09:00 Gabapentin (Neurontin) 100 mg DAILY PO Last administered on 07/16/17 08:13; Start 07/16/17 at 09:00 Acetaminophen/ Hydrocodone Bitart (Lortab 5/325) 2 tab PRN Q6HRS PRN PO PAIN; Start 07/15/17 at 17:45 Insulin Aspart (NovoLOG) 25 units TIDAC SQ Last administered on 07/16/17 11: 25; Start 07/16/17 at 07:30 Levothyroxine Sodium (Synthroid) 125 mcg DAILY07 PO Last administered on 06:22; Start 07/16/17 at 07:00 Metoprolol Succinate (Toprol Xl) 25 mg DAILY PO ; Start 07/16/17 at 09:00 Rifaximin (Xifaxan) 550 mg BID PO Last administered on 07/16/17 08:13; Start 07/15/17 at 21:00 Sertraline HCl (Zoloft) 75 mg DAILY PO Last administered on 07/16/17 08:13; Start 07/16/17 at 09:00 Sevelamer Carbonate (Renvela) 800 mg TIDWMEALS PO Last administered on 08:14; Start 07/16/17 at 08:00 Ergocalciferol (Vitamin D2) 50,000 unit WEEKLY PO Last administered on 08:12; Start 07/16/17 at 09:00 Insulin Detemir (Levemir) 30 units QHS SQ ; Start 07/15/17 at 21:00 Isosorbide Mononitrate (Imdur) 30 mg DAILY PO ; Start 07/16/17 at 09:00 Non-Formulary Medication 10 gm PRN TID PRN PO CONSTIPATION; Start 07/15/17 at 17:45; Status UNV Meclizine HCl (Antivert) 25 mg TID PO Last administered on 07/16/17 08:12; Start 07/15/17 at 21:00 Multivitamins (Thera M Plus) 1 tab DAILY PO Last administered on 07/16/17 08: 12; Start 07/16/17 at 09:00 Ondansetron HCl (Zofran Odt) 4 mg PRN Q6HRS PRN PO NAUSEA/VOMITING; Start at 18:15 Tizanidine HCl (Zanaflex) 2 mg PRN Q12HRS PRN PO MUSCLE SPASMS; Start at 18:15 Insulin Aspart (NovoLOG) 0-9 UNITS TIDWMEALS SQ Last administered on 11:24; Start 07/16/17 at 08:00 Dextrose (Dextrose 50%-Water Syringe) 12.5 gm PRN Q15MIN PRN IV SEE COMMENTS; Start 07/15/17 at 17:45 Ondansetron HCl (Zofran) 4 mg PRN Q8HRS PRN IV NAUSEA/VOMITING; Start at 18:30; Stop 07/16/17 at 18:29 Sodium Chloride 1,000 ml @ 125 mls/hr Q8H IV Last administered on 07/16/17 03:56; Start 07/15/17 at 18:17; Stop 07/16/17 at 18:16 Ceftriaxone Sodium (Rocephin) 1 gm Q24H IVP ; Start 07/16/17 at 17:00 Azithromycin 500 mg/Sodium Chloride 250 ml @ 250 mls/hr Q24H IV ; Start at 18:00 Insulin Aspart (NovoLOG) 20 units 1X ONCE SQ Last administered on 07/16/17 06:44; Start 07/16/17 at 06:30; Stop 07/16/17 at 06:32; Status DC Insulin Aspart (NovoLOG) 5 units 1X ONCE SQ Last administered on 07/16/17 09 :11; Start 07/16/17 at 09:00; Stop 07/16/17 at 09:02; Status DC Sodium Chloride 1,000 ml @ 1,000 mls/hr Q1H PRN IV hypotension; Start at 10:47; Stop 07/16/17 at 16:46 Albumin Human 200 ml @ 200 mls/hr 1X PRN PRN IV Hypotension; Start 07/16/17 at 11:00; Stop 07/16/17 at 16:59 Sodium Chloride 1,000 ml @ 400 mls/hr Q2H30M PRN IV PATENCY; Start 07/16/17 at 10:47; Stop 07/16/17 at 22:46 Info (PHARMACY MONITORING -- do not chart) 1 each PRN DAILY PRN MC SEE COMMENTS ; Start 07/16/17 at 11:00 Diphenhydramine HCl (Benadryl) 25 mg 1X PRN PRN IV ITCHING Last administered on 07/16/17 11:48; Start 07/16/17 at 11:30; Stop 07/17/17 at 11:29 Sodium Bicarbonate (Sodium Bicarbonate) 1,300 mg DAILY PO ; Start 07/16/17 at 12:00 Active Scripts Active Aspirin Ec (Aspirin) 325 Mg Tablet. 325 Mg PO DAILYWBKFT 30 Days Reported Novolog Flexpen (Insulin Aspart) 100 Unit/1 Ml Insuln.pen 25 Unit SQ TIDAC Vitamin D (Cholecalciferol (Vitamin D3)) 50,000 Unit Capsule 50,000 Unit PO DAILY Tizanidine Hcl 2 Mg Capsule 2 Mg PO BID PRN Meclizine Hcl 25 Mg Tablet 1 Tab PO TID Voltaren (Diclofenac Sodium) 100 Gm Gel..gram. 1 Gm TP BID Hydrocodone-Apap 5-325 (Hydrocodone Bit/Acetaminophen) 1 Each Tablet 2 Tab PO PRN Q6HRS PRN Clonidine Hcl 0.2 Mg Tablet 0.2 Mg PO DAILY Gabapentin 100 Mg Capsule 100 Mg PO DAILY Zoloft (Sertraline Hcl) 50 Mg Tablet 75 Mg PO DAILY Renvela (Sevelamer Carbonate) 800 Mg Tablet 1 Tab PO TIDWMEALS Levothyroxine Sodium 175 Mcg Tablet 125 Mcg PO DAILYAC Lactulose 20 Gm/30 Ml Solution 10 Gm PO PRN TID PRN Dialyvite [place] D Tablet (Multivitamin, Min Cmb#25/Fa/D3) 1 Each Tablet 1 Each PO DAILY Metoprolol Succinate ( Xl ) (Metoprolol Succinate) 25 Mg Tab.er.24h 25 Mg PO DAILY Lantus Solostar (Insulin Glargine,Hum.rec.anlog) 100 Unit/1 Ml Insuln.pen 30 Unit SQ QHS Ondansetron Hcl 4 Mg Tablet 4 Mg PO Q6HRS PRN Zolpidem Tartrate 5 Mg Tablet 5 Mg PO PRN QHS PRN Famotidine 20 Mg Tablet 20 Mg PO DAILY Xifaxan (Rifaximin) 550 Mg Tablet 1 Tab PO BID Isosorbide Dinitrate 30 Mg Tablet 1 Tab PO DAILY Allergies Allergies: Coded Allergies: adhesive (Verified Allergy, Intermediate, Rash, 04/09/16) TAPE ROS Review of System GEN: + Fevers (101 over wknd) now low grd no Chills EYES: no new Visual Complaints ENT: no EN Drainage no Hearing deficiets CVS: no Orthopnea no CP RESP: no SOB no BROOKE GI: min Nausea + Vomiting ? diarrhea : no Dysuria no Urgency HEME: no easy bruising no Palp Ly Nodes NEURO no Focal Weakness no Sz PSYCH: no Suicidal Ideation no Depression SKIN: no Rashes ENDO: no Polyuria or Polydipsia no Hot/Cold Intolerance MU SK: + back Arthraigia no Myalgia Physical Exam Physical Exam General Appearance: Awake Alert Oriented x 3 In no Distress Eyes: VIsion Unchanged Conjunctiva Normal EN: No EN Drainage Mucous Memb. moist Neck: no JVD min JVP Supple no Thyromegaly CVS: S1 S2 soft Murmur No Gallop No Rub tr Edema Resp: no Rales no Rhonchi no Acc. Muscle use GI: BS +ve NO Bruit Non Tender Non Distended - Obese : ? Rt CVA pain wihout T'ness no Suprapubic Tenderness SKIN: no Rashes Breast Exam deferred Mu.Sk: Adequate ROM no Muscle Atrophy Heme: Unable to palpate Obvious LAD no palp Splenomegaly NEURO: Good Strength and Tone Cranial Nerves II - XII grossly intact Psych: not Depressed no Active hallucination Vital Signs Vital Signs Date Time Temp Pulse Resp B/P (MAP) Pulse Ox O2 Delivery O2 Flow Rate FiO2 07/16/17 08:00 Room Air 07/16/17 07:55 91 07/16/17 07:30 97.4 57 20 142/54 (83) 97.4 07/16/17 01:18 2.0 Assessment & Plan ESRD: Dialysis as below F 180 NR 3.0 Hrs 2 K 2.5 Ca 140 Na 35 HC03 Qb 350 + Qd 500+ Heparin 0 Units Uf 3 Kgs or to dry weight as tolerated May give 25-50 gms of 25% Albumin if needed to maintain Hemodynamic stability Treatment plan reviewed and discussed with grill chef ^edK - suspect due to ^ed FSBS too - antiicpate correction with HD Anemia: Epogen as ordered; Transfuse with next HD as needed. HTN: Current BP meds reviewed. See orders for changes. Bone & Mineral: follow phos and alter binder regimen as needed Discussed Plan of Care and prognosis etc. at length with family. Labs Labs Laboratory Tests Test 07/15/17 17:08 07/15/17 19:34 07/15/17 20:35 07/16/17 03:50 White Blood Count 3.4 x10^3/uL (4.0-11.0) 2.2 x10^3/uL (4.0-11.0) Red Blood Count 3.54 x10^6/uL (3.50-5.40) 3.27 x10^6/uL (3.50-5.40) Hemoglobin 10.8 g/dL (12.0-15.5) 10.0 g/dL (12.0-15.5) Hematocrit 32.5 % (36.0-47.0) 30.3 % (36.0-47.0) Mean Corpuscular Volume 92 fL (79-100) 93 fL (79-100) Mean Corpuscular Hemoglobin 31 pg (25-35) 31 pg (25-35) Mean Corpuscular Hemoglobin Concent 33 g/dL (31-37) 33 g/dL (31-37) Red Cell Distribution Width 15.8 % (11.5-14.5) 15.9 % (11.5-14.5) Platelet Count 59 x10^3/uL (140-400) 45 x10^3/uL (140-400) Neutrophils (%) (Auto) 64 % (31-73) 87 % (31-73) Lymphocytes (%) (Auto) 16 % (24-48) 10 % (24-48) Monocytes (%) (Auto) 15 % (0-9) 2 % (0-9) Eosinophils (%) (Auto) 4 % (0-3) 0 % (0-3) Basophils (%) (Auto) 1 % (0-3) 0 % (0-3) Neutrophils # (Auto) 2.2 x10^3uL (1.8-7.7) 1.9 x10^3uL (1.8-7.7) Lymphocytes # (Auto) 0.6 x10^3/uL (1.0-4.8) 0.2 x10^3/uL (1.0-4.8) Monocytes # (Auto) 0.5 x10^3/uL (0.0-1.1) 0.0 x10^3/uL (0.0-1.1) Eosinophils # (Auto) 0.1 x10^3/uL (0.0-0.7) 0.0 x10^3/uL (0.0-0.7) Basophils # (Auto) 0.0 x10^3/uL (0.0-0.2) 0.0 x10^3/uL (0.0-0.2) Sodium Level 139 mmol/L (136-145) 134 mmol/L (136-145) Potassium Level 4.5 mmol/L (3.5-5.1) 5.9 mmol/L (3.5-5.1) Chloride Level 103 mmol/L (98-107) 102 mmol/L (98-107) Carbon Dioxide Level 27 mmol/L (21-32) 21 mmol/L (21-32) Anion Gap 9 (6-14) 11 (6-14) Blood Urea Nitrogen 28 mg/dL (7-20) 38 mg/dL (7-20) Creatinine 3.6 mg/dL (0.6-1.0) 4.1 mg/dL (0.6-1.0) Estimated GFR (Cockcroft-Gault) 12.5 10.8 Glucose Level 201 mg/dL (70-99) 519 mg/dL (70-99) Lactic Acid Level 1.1 mmol/L (0.4-2.0) 1.7 mmol/L (0.4-2.0) Calcium Level 8.0 mg/dL (8.5-10.1) 7.6 mg/dL (8.5-10.1) Troponin I Quantitative < 0.017 ng/mL (0.000-0.055) Glucose (Fingerstick) 166 mg/dL (70-99) Segmented Neutrophils % 89 % (35-66) Band Neutrophils % 5 % (0-9) Lymphocytes % 6 % (24-48) Platelet Estimate Decreased (ADEQUATE) Anisocytosis Present 25-Hydroxy Vitamin D Total 34.0 ng/mL (30-100) Test 07/16/17 05:32 07/16/17 07:40 07/16/17 11:12 Glucose (Fingerstick) 488 mg/dL (70-99) 458 mg/dL (70-99) 480 mg/dL (70-99) Laboratory Tests Test 07/15/17 17:08 07/15/17 19:34 07/15/17 20:35 07/16/17 03:50 White Blood Count 3.4 x10^3/uL (4.0-11.0) 2.2 x10^3/uL (4.0-11.0) Red Blood Count 3.54 x10^6/uL (3.50-5.40) 3.27 x10^6/uL (3.50-5.40) Hemoglobin 10.8 g/dL (12.0-15.5) 10.0 g/dL (12.0-15.5) Hematocrit 32.5 % (36.0-47.0) 30.3 % (36.0-47.0) Mean Corpuscular Volume 92 fL (79-100) 93 fL (79-100) Mean Corpuscular Hemoglobin 31 pg (25-35) 31 pg (25-35) Mean Corpuscular Hemoglobin Concent 33 g/dL (31-37) 33 g/dL (31-37) Red Cell Distribution Width 15.8 % (11.5-14.5) 15.9 % (11.5-14.5) Platelet Count 59 x10^3/uL (140-400) 45 x10^3/uL (140-400) Neutrophils (%) (Auto) 64 % (31-73) 87 % (31-73) Lymphocytes (%) (Auto) 16 % (24-48) 10 % (24-48) Monocytes (%) (Auto) 15 % (0-9) 2 % (0-9) Eosinophils (%) (Auto) 4 % (0-3) 0 % (0-3) Basophils (%) (Auto) 1 % (0-3) 0 % (0-3) Neutrophils # (Auto) 2.2 x10^3uL (1.8-7.7) 1.9 x10^3uL (1.8-7.7) Lymphocytes # (Auto) 0.6 x10^3/uL (1.0-4.8) 0.2 x10^3/uL (1.0-4.8) Monocytes # (Auto) 0.5 x10^3/uL (0.0-1.1) 0.0 x10^3/uL (0.0-1.1) Eosinophils # (Auto) 0.1 x10^3/uL (0.0-0.7) 0.0 x10^3/uL (0.0-0.7) Basophils # (Auto) 0.0 x10^3/uL (0.0-0.2) 0.0 x10^3/uL (0.0-0.2) Sodium Level 139 mmol/L (136-145) 134 mmol/L (136-145) Potassium Level 4.5 mmol/L (3.5-5.1) 5.9 mmol/L (3.5-5.1) Chloride Level 103 mmol/L (98-107) 102 mmol/L (98-107) Carbon Dioxide Level 27 mmol/L (21-32) 21 mmol/L (21-32) Anion Gap 9 (6-14) 11 (6-14) Blood Urea Nitrogen 28 mg/dL (7-20) 38 mg/dL (7-20) Creatinine 3.6 mg/dL (0.6-1.0) 4.1 mg/dL (0.6-1.0) Estimated GFR (Cockcroft-Gault) 12.5 10.8 Glucose Level 201 mg/dL (70-99) 519 mg/dL (70-99) Lactic Acid Level 1.1 mmol/L (0.4-2.0) 1.7 mmol/L (0.4-2.0) Calcium Level 8.0 mg/dL (8.5-10.1) 7.6 mg/dL (8.5-10.1) Troponin I Quantitative < 0.017 ng/mL (0.000-0.055) Glucose (Fingerstick) 166 mg/dL (70-99) Segmented Neutrophils % 89 % (35-66) Band Neutrophils % 5 % (0-9) Lymphocytes % 6 % (24-48) Platelet Estimate Decreased (ADEQUATE) Anisocytosis Present 25-Hydroxy Vitamin D Total 34.0 ng/mL (30-100) Test 07/16/17 05:32 07/16/17 07:40 07/16/17 11:12 Glucose (Fingerstick) 488 mg/dL (70-99) 458 mg/dL (70-99) 480 mg/dL (70-99) Images Images COMPARISON: 03/14/2017. FINDINGS: A frontal view of the chest is obtained. There are mild interstitial opacities in the bases. Pulmonary vascular redistribution is noted. There is no pneumothorax. Tiny pleural effusions cannot be excluded. Interval aorta The heart is moderately enlarged. IMPRESSION: 1. Moderate cardiomegaly. Correlate for volume overload. RALPH ALONZO MD Jul 16, 2017 11:59
[2017-07-16] MEDS ORDERED: MAGNESIUM SULFATE 2GM 50 ML IV PRN (12:15)
[2017-07-16 15:00] VITALS: BP 130/60
--- NOTE | 2017-07-16 16:32 | PDOC ---
PROGRESS NOTES Vitals Vitals Vital Signs Date Time Temp Pulse Resp B/P (MAP) Pulse Ox O2 Delivery O2 Flow Rate FiO2 07/16/17 15:00 97.9 59 18 130/60 (83) 98 Room Air 97.9 07/16/17 01:18 2.0 Physical Exam Physical Exam ROS General: YES: Chills, Fatigue, Malaise Eyes: No Blurry vision, No Decreased vision, No Double vision, No Dry eyes, No Excessive tearing, No Eye Pain, No Itchy Eyes, No Loss of vision, No Photophobia , No Scotomata, No Uses contacts, No Uses glasses, No Other HEENT: No: Heacaches, Visual Changes, Hearing change, Nasal congestion, Nasal discharge, Oral lesions, Sinus pain, Sore Throat, Epistaxis, Sneezing, Snoring, Tinnitus, Vertigo, Vocal changes, Other Hematological and Lymphatic: No: Bleeding Problems, Blood Clots, Blood Transfusions, Brusing, Night Sweats, Pallor, Swollen Lymph Nodes, Other ENDOCRINE: No: Breast Changes, Galactorrhea, Hair Pattern Changes, Hot Flashes , Malaise/lethargy, Mood Swings, Palpitations, Polydipsia/polyuria, Skin Changes , Temperature Intolerance, Unexpected Weight Changes, Other Respiratory: YES: Cough, Shortness of breath, SOB with excertion, Sputum Changes, No: Hemoptysis, Orthopnea, Pleuritic Pain, Stridor, Tachypnea, Wheezing, Other Cardiovascular: No Chest Pain, No Palpitations, No Orthopnea, No Paroxysmal Noc. Dyspnea, No Edema, No Lt Headedness, No Other Genitourinary: No Dysuria, No Frequency, No Incontinence, No Hematuria, No Retention, No Discharge, No Urgency, No Pain, No Flank Pain, No Other, No , No , No , No , No , No , No Musculoskeletal: No Gait Disturbance, No Joint Pain, No Joint Stiffness, No Joint Swelling, No Muscle Pain, No Muscular Weakness, No Pain In:, No Swelling In:, No Other Neurological: No Behavorial Changes, No Bowel/Bladder ControlChng, No Confusion , No Dizziness, No Gait Disturbance, No Headaches, No Impaired Coord/balance, No Memory Loss, No Numbness/Tingling, No Seizures, No Speech Problems, No Tremors, No Visual Changes, No Weakness, No Other Skin: No Dry Skin, No Eczema, No Hair Changes, No Lumps, No Mole Changes, No Mottling, No Nail Changes, No Pruritus, No Rash, No Skin Lesion Changes, No Other, No Acne Physical Exam General: Alert, Oriented X3, Cooperative, No acute distress HEENT: Atraumatic, PERRLA, EOMI Lungs: Clear to auscultation, Normal air movement Heart: S1S2, RRR, no thrills, no rubs, no gallops, no murmurs Cardiovascular: S1, S2 Abdomen: Normal bowel sounds, Soft, No tenderness, No hepatosplenomegaly, No masses Rectal Exam: not examined PELVIC: Nml ext genitalia Extremities: No clubbing, No cyanosis, No edema, Normal pulses, No tenderness/ swelling Skin: No rashes, No breakdown, No significant lesion Neuro: Normal gait, Normal speech, Strength at 5/5 X4 ext, Normal tone, Sensation intact, Cranial nerves 3-12 NL, Reflexes 2+ Psych/Mental Status: Mental status NL, Mood NL General: Alert, Oriented X3, Cooperative, No acute distress Lungs: Clear Abdomen: Normal bowel sounds, Soft, No tenderness, No hepatosplenomegaly, No masses Extremities: No clubbing, No cyanosis, No edema, Normal pulses, No tenderness/ swelling Skin: No rashes, No breakdown, No significant lesion Labs LABS Laboratory Tests Test 07/15/17 17:08 07/15/17 19:34 07/15/17 20:35 07/16/17 03:50 White Blood Count 3.4 x10^3/uL (4.0-11.0) 2.2 x10^3/uL (4.0-11.0) Red Blood Count 3.54 x10^6/uL (3.50-5.40) 3.27 x10^6/uL (3.50-5.40) Hemoglobin 10.8 g/dL (12.0-15.5) 10.0 g/dL (12.0-15.5) Hematocrit 32.5 % (36.0-47.0) 30.3 % (36.0-47.0) Mean Corpuscular Volume 92 fL (79-100) 93 fL (79-100) Mean Corpuscular Hemoglobin 31 pg (25-35) 31 pg (25-35) Mean Corpuscular Hemoglobin Concent 33 g/dL (31-37) 33 g/dL (31-37) Red Cell Distribution Width 15.8 % (11.5-14.5) 15.9 % (11.5-14.5) Platelet Count 59 x10^3/uL (140-400) 45 x10^3/uL (140-400) Neutrophils (%) (Auto) 64 % (31-73) 87 % (31-73) Lymphocytes (%) (Auto) 16 % (24-48) 10 % (24-48) Monocytes (%) (Auto) 15 % (0-9) 2 % (0-9) Eosinophils (%) (Auto) 4 % (0-3) 0 % (0-3) Basophils (%) (Auto) 1 % (0-3) 0 % (0-3) Neutrophils # (Auto) 2.2 x10^3uL (1.8-7.7) 1.9 x10^3uL (1.8-7.7) Lymphocytes # (Auto) 0.6 x10^3/uL (1.0-4.8) 0.2 x10^3/uL (1.0-4.8) Monocytes # (Auto) 0.5 x10^3/uL (0.0-1.1) 0.0 x10^3/uL (0.0-1.1) Eosinophils # (Auto) 0.1 x10^3/uL (0.0-0.7) 0.0 x10^3/uL (0.0-0.7) Basophils # (Auto) 0.0 x10^3/uL (0.0-0.2) 0.0 x10^3/uL (0.0-0.2) Sodium Level 139 mmol/L (136-145) 134 mmol/L (136-145) Potassium Level 4.5 mmol/L (3.5-5.1) 5.9 mmol/L (3.5-5.1) Chloride Level 103 mmol/L (98-107) 102 mmol/L (98-107) Carbon Dioxide Level 27 mmol/L (21-32) 21 mmol/L (21-32) Anion Gap 9 (6-14) 11 (6-14) Blood Urea Nitrogen 28 mg/dL (7-20) 38 mg/dL (7-20) Creatinine 3.6 mg/dL (0.6-1.0) 4.1 mg/dL (0.6-1.0) Estimated GFR (Cockcroft-Gault) 12.5 10.8 Glucose Level 201 mg/dL (70-99) 519 mg/dL (70-99) Lactic Acid Level 1.1 mmol/L (0.4-2.0) 1.7 mmol/L (0.4-2.0) Calcium Level 8.0 mg/dL (8.5-10.1) 7.6 mg/dL (8.5-10.1) Troponin I Quantitative < 0.017 ng/mL (0.000-0.055) Glucose (Fingerstick) 166 mg/dL (70-99) Segmented Neutrophils % 89 % (35-66) Band Neutrophils % 5 % (0-9) Lymphocytes % 6 % (24-48) Platelet Estimate Decreased (ADEQUATE) Anisocytosis Present 25-Hydroxy Vitamin D Total 34.0 ng/mL (30-100) Test 07/16/17 05:32 07/16/17 06:04 07/16/17 07:40 07/16/17 11:12 Glucose (Fingerstick) 488 mg/dL (70-99) 458 mg/dL (70-99) 480 mg/dL (70-99) Clostridium difficile Toxin (PCR) Negative (Negative) Test 07/16/17 16:07 Glucose (Fingerstick) 46 mg/dL (70-99) Assessment and Plan Assessmemt and Plan Problems Medical Problems: (1) Acute dyspnea Status: Acute (2) COPD exacerbation Status: Acute (3) Fever Status: Acute (4) Pneumonia Status: Acute 5. ENDSTAGE RENAL DISEASE ON DIALYSIS Assessment/Plan Assessment/Plan 1. CAP 2. HX advanced cirrhosis and multiple abd taps in the past 3. Obesity 4. Carpal tunnel syndrome; end-stage renal disease, on hemodialysis; cirrhosis; splenomegaly; portal hypertension; ascites; encephalopathy; hypothyroidism; hypercholesterolemia; GERD; diabetes mellitus; congestive heart failure; asthma; COPD; CVA; vertigo; Vpqfuez-Ubzsm-Tmmpq syndrome; neuropathy. 5. ESRD in HD 6,. ANemia of ESRD 7. THROMBOCYTOPENIA sec to cirrhosis PLAn: CAP coverage Renal consult for hD PT./OT Rsume home meds Duonebs COugh med Ff up basic labs follow plts Problems: Comment Review of Relevant I have reviewed the following items karyn (where applicable) has been applied. Labs Laboratory Tests Test 07/15/17 17:08 07/15/17 19:34 07/15/17 20:35 07/16/17 03:50 White Blood Count 3.4 x10^3/uL (4.0-11.0) 2.2 x10^3/uL (4.0-11.0) Red Blood Count 3.54 x10^6/uL (3.50-5.40) 3.27 x10^6/uL (3.50-5.40) Hemoglobin 10.8 g/dL (12.0-15.5) 10.0 g/dL (12.0-15.5) Hematocrit 32.5 % (36.0-47.0) 30.3 % (36.0-47.0) Mean Corpuscular Volume 92 fL (79-100) 93 fL (79-100) Mean Corpuscular Hemoglobin 31 pg (25-35) 31 pg (25-35) Mean Corpuscular Hemoglobin Concent 33 g/dL (31-37) 33 g/dL (31-37) Red Cell Distribution Width 15.8 % (11.5-14.5) 15.9 % (11.5-14.5) Platelet Count 59 x10^3/uL (140-400) 45 x10^3/uL (140-400) Neutrophils (%) (Auto) 64 % (31-73) 87 % (31-73) Lymphocytes (%) (Auto) 16 % (24-48) 10 % (24-48) Monocytes (%) (Auto) 15 % (0-9) 2 % (0-9) Eosinophils (%) (Auto) 4 % (0-3) 0 % (0-3) Basophils (%) (Auto) 1 % (0-3) 0 % (0-3) Neutrophils # (Auto) 2.2 x10^3uL (1.8-7.7) 1.9 x10^3uL (1.8-7.7) Lymphocytes # (Auto) 0.6 x10^3/uL (1.0-4.8) 0.2 x10^3/uL (1.0-4.8) Monocytes # (Auto) 0.5 x10^3/uL (0.0-1.1) 0.0 x10^3/uL (0.0-1.1) Eosinophils # (Auto) 0.1 x10^3/uL (0.0-0.7) 0.0 x10^3/uL (0.0-0.7) Basophils # (Auto) 0.0 x10^3/uL (0.0-0.2) 0.0 x10^3/uL (0.0-0.2) Sodium Level 139 mmol/L (136-145) 134 mmol/L (136-145) Potassium Level 4.5 mmol/L (3.5-5.1) 5.9 mmol/L (3.5-5.1) Chloride Level 103 mmol/L (98-107) 102 mmol/L (98-107) Carbon Dioxide Level 27 mmol/L (21-32) 21 mmol/L (21-32) Anion Gap 9 (6-14) 11 (6-14) Blood Urea Nitrogen 28 mg/dL (7-20) 38 mg/dL (7-20) Creatinine 3.6 mg/dL (0.6-1.0) 4.1 mg/dL (0.6-1.0) Estimated GFR (Cockcroft-Gault) 12.5 10.8 Glucose Level 201 mg/dL (70-99) 519 mg/dL (70-99) Lactic Acid Level 1.1 mmol/L (0.4-2.0) 1.7 mmol/L (0.4-2.0) Calcium Level 8.0 mg/dL (8.5-10.1) 7.6 mg/dL (8.5-10.1) Troponin I Quantitative < 0.017 ng/mL (0.000-0.055) Glucose (Fingerstick) 166 mg/dL (70-99) Segmented Neutrophils % 89 % (35-66) Band Neutrophils % 5 % (0-9) Lymphocytes % 6 % (24-48) Platelet Estimate Decreased (ADEQUATE) Anisocytosis Present 25-Hydroxy Vitamin D Total 34.0 ng/mL (30-100) Test 07/16/17 05:32 07/16/17 06:04 07/16/17 07:40 07/16/17 11:12 Glucose (Fingerstick) 488 mg/dL (70-99) 458 mg/dL (70-99) 480 mg/dL (70-99) Clostridium difficile Toxin (PCR) Negative (Negative) Test 07/16/17 16:07 Glucose (Fingerstick) 46 mg/dL (70-99) Laboratory Tests Test 07/15/17 17:08 07/15/17 19:34 07/15/17 20:35 07/16/17 03:50 White Blood Count 3.4 x10^3/uL (4.0-11.0) 2.2 x10^3/uL (4.0-11.0) Red Blood Count 3.54 x10^6/uL (3.50-5.40) 3.27 x10^6/uL (3.50-5.40) Hemoglobin 10.8 g/dL (12.0-15.5) 10.0 g/dL (12.0-15.5) Hematocrit 32.5 % (36.0-47.0) 30.3 % (36.0-47.0) Mean Corpuscular Volume 92 fL (79-100) 93 fL (79-100) Mean Corpuscular Hemoglobin 31 pg (25-35) 31 pg (25-35) Mean Corpuscular Hemoglobin Concent 33 g/dL (31-37) 33 g/dL (31-37) Red Cell Distribution Width 15.8 % (11.5-14.5) 15.9 % (11.5-14.5) Platelet Count 59 x10^3/uL (140-400) 45 x10^3/uL (140-400) Neutrophils (%) (Auto) 64 % (31-73) 87 % (31-73) Lymphocytes (%) (Auto) 16 % (24-48) 10 % (24-48) Monocytes (%) (Auto) 15 % (0-9) 2 % (0-9) Eosinophils (%) (Auto) 4 % (0-3) 0 % (0-3) Basophils (%) (Auto) 1 % (0-3) 0 % (0-3) Neutrophils # (Auto) 2.2 x10^3uL (1.8-7.7) 1.9 x10^3uL (1.8-7.7) Lymphocytes # (Auto) 0.6 x10^3/uL (1.0-4.8) 0.2 x10^3/uL (1.0-4.8) Monocytes # (Auto) 0.5 x10^3/uL (0.0-1.1) 0.0 x10^3/uL (0.0-1.1) Eosinophils # (Auto) 0.1 x10^3/uL (0.0-0.7) 0.0 x10^3/uL (0.0-0.7) Basophils # (Auto) 0.0 x10^3/uL (0.0-0.2) 0.0 x10^3/uL (0.0-0.2) Sodium Level 139 mmol/L (136-145) 134 mmol/L (136-145) Potassium Level 4.5 mmol/L (3.5-5.1) 5.9 mmol/L (3.5-5.1) Chloride Level 103 mmol/L (98-107) 102 mmol/L (98-107) Carbon Dioxide Level 27 mmol/L (21-32) 21 mmol/L (21-32) Anion Gap 9 (6-14) 11 (6-14) Blood Urea Nitrogen 28 mg/dL (7-20) 38 mg/dL (7-20) Creatinine 3.6 mg/dL (0.6-1.0) 4.1 mg/dL (0.6-1.0) Estimated GFR (Cockcroft-Gault) 12.5 10.8 Glucose Level 201 mg/dL (70-99) 519 mg/dL (70-99) Lactic Acid Level 1.1 mmol/L (0.4-2.0) 1.7 mmol/L (0.4-2.0) Calcium Level 8.0 mg/dL (8.5-10.1) 7.6 mg/dL (8.5-10.1) Troponin I Quantitative < 0.017 ng/mL (0.000-0.055) Glucose (Fingerstick) 166 mg/dL (70-99) Segmented Neutrophils % 89 % (35-66) Band Neutrophils % 5 % (0-9) Lymphocytes % 6 % (24-48) Platelet Estimate Decreased (ADEQUATE) Anisocytosis Present 25-Hydroxy Vitamin D Total 34.0 ng/mL (30-100) Test 07/16/17 05:32 07/16/17 06:04 07/16/17 07:40 07/16/17 11:12 Glucose (Fingerstick) 488 mg/dL (70-99) 458 mg/dL (70-99) 480 mg/dL (70-99) Clostridium difficile Toxin (PCR) Negative (Negative) Test 07/16/17 16:07 Glucose (Fingerstick) 46 mg/dL (70-99) Medications Current Medications Sodium Chloride 1,000 ml @ 125 mls/hr Q8H IV Last administered on 07/15/17 17:12; Start 07/15/17 at 16:52; Stop 07/16/17 at 16:51 Albuterol/ Ipratropium (Duoneb) 3 ml 1X ONCE NEB Last administered on 17:27; Start 07/15/17 at 17:00; Stop 07/15/17 at 17:01; Status DC Methylprednisolone Sodium Succinate (SOLU-Medrol 125MG VIAL) 125 mg 1X ONCE IV Last administered on 07/15/17 17:15; Start 07/15/17 at 17:00; Stop at 17:01; Status DC Ceftriaxone Sodium 1 gm/ Dextrose 50 ml @ 0 mls/hr 1X ONCE IV ; Start at 17:00; Stop 07/15/17 at 17:01; Status UNV Azithromycin 250 ml @ 250 mls/hr 1X ONCE IV Last administered on 07/15/17 18:30; Start 07/15/17 at 17:00; Stop 07/15/17 at 17:59; Status DC Ceftriaxone Sodium 50 ml @ 100 mls/hr 1X ONCE IV Last administered on 17:19; Start 07/15/17 at 17:00; Stop 07/15/17 at 17:29; Status DC Ondansetron HCl (Zofran) 4 mg PRN Q6HRS PRN IV NAUSEA/VOMITING; Start at 17:30 Prochlorperazine Edisylate (Compazine) 10 mg PRN Q6HRS PRN IV NAUSEA/VOMITING; Start 07/15/17 at 17:30 Prochlorperazine (Compazine) 25 mg PRN Q12HR PRN PA NAUSEA/VOMITING; Start at 17:30 Al Hydroxide/Mg Hydroxide (Mylanta Plus Xs) 30 ml PRN Q3HRS PRN PO HEARTBURN / GAS; Start 07/15/17 at 17:30 Calcium Carbonate/ Glycine (Tums) 500 mg PRN Q3HRS PRN PO UPSET STOMACH; Start 07/15/17 at 17:30 Morphine Sulfate 1 mg PRN Q1HR PRN IV PAIN; Start 07/15/17 at 17:30 Acetaminophen (Tylenol) 650 mg PRN Q6HRS PRN PO Headaches, Temp > 101.5F; Start 07/15/17 at 17:30 Docusate Sodium (Colace) 100 mg BID PO ; Start 07/15/17 at 21:00 Magnesium Hydroxide (Milk Of Magnesia) 2,400 mg PRN Q12HR PRN PO CONSTIPATION; Start 07/15/17 at 17:30 Lactulose 20 gm PRN Q12HR PRN PO CONSTIPATION; Start 07/15/17 at 17:30 Heparin Sodium (Porcine) (Heparin Sq) 5,000 unit Q8HRS SQ Last administered on 07/16/17 06:26; Start 07/15/17 at 22:00 Albuterol/ Ipratropium (Duoneb) 3 ml RTQID NEB Last administered on 07/16/17 07:54; Start 07/15/17 at 20:00 Benzonatate (Tessalon Perle) 100 mg [id number] PO Last administered on 07/16/17 08:12; Start 07/15/17 at 21:00 Guaifenesin (Robitussin Dm) 10 ml PRN Q6HRS PRN PO COUGH; Start 07/15/17 at 17 :30 Ceftriaxone Sodium 1 gm/ Dextrose 50 ml @ 100 mls/hr Q24H IV ; Start 07/15/17 at 17:30; Stop 07/15/17 at 18:56; Status DC Azithromycin 500 mg/Sodium Chloride 250 ml @ 250 mls/hr Q24H IV ; Start at 17:30; Stop 07/15/17 at 18:57; Status DC Aspirin (Ecotrin) 325 mg DAILYWBKFT PO Last administered on 07/16/17 08:12; Start 07/16/17 at 08:00 Clonidine HCl (Catapres) 0.2 mg DAILY PO ; Start 07/16/17 at 09:00 Diclofenac Sodium (Voltaren) 1 ronel BID TP ; Start 07/15/17 at 21:00 Famotidine (Pepcid) 20 mg DAILY PO Last administered on 07/16/17 08:12; Start 07/16/17 at 09:00 Gabapentin (Neurontin) 100 mg DAILY PO Last administered on 07/16/17 08:13; Start 07/16/17 at 09:00 Acetaminophen/ Hydrocodone Bitart (Lortab 5/325) 2 tab PRN Q6HRS PRN PO PAIN; Start 07/15/17 at 17:45 Insulin Aspart (NovoLOG) 25 units TIDAC SQ Last administered on 07/16/17 11: 25; Start 07/16/17 at 07:30 Levothyroxine Sodium (Synthroid) 125 mcg DAILY07 PO Last administered on 06:22; Start 07/16/17 at 07:00 Metoprolol Succinate (Toprol Xl) 25 mg DAILY PO ; Start 07/16/17 at 09:00 Rifaximin (Xifaxan) 550 mg BID PO Last administered on 07/16/17 08:13; Start 07/15/17 at 21:00 Sertraline HCl (Zoloft) 75 mg DAILY PO Last administered on 07/16/17 08:13; Start 07/16/17 at 09:00 Sevelamer Carbonate (Renvela) 800 mg TIDWMEALS PO Last administered on 08:14; Start 07/16/17 at 08:00 Ergocalciferol (Vitamin D2) 50,000 unit WEEKLY PO Last administered on 08:12; Start 07/16/17 at 09:00 Insulin Detemir (Levemir) 30 units QHS SQ ; Start 07/15/17 at 21:00 Isosorbide Mononitrate (Imdur) 30 mg DAILY PO ; Start 07/16/17 at 09:00 Non-Formulary Medication 10 gm PRN TID PRN PO CONSTIPATION; Start 07/15/17 at 17:45; Status UNV Meclizine HCl (Antivert) 25 mg TID PO Last administered on 07/16/17 08:12; Start 07/15/17 at 21:00 Multivitamins (Thera M Plus) 1 tab DAILY PO Last administered on 07/16/17 08: 12; Start 07/16/17 at 09:00 Ondansetron HCl (Zofran Odt) 4 mg PRN Q6HRS PRN PO NAUSEA/VOMITING; Start at 18:15 Tizanidine HCl (Zanaflex) 2 mg PRN Q12HRS PRN PO MUSCLE SPASMS; Start at 18:15 Insulin Aspart (NovoLOG) 0-9 UNITS TIDWMEALS SQ Last administered on 11:24; Start 07/16/17 at 08:00 Dextrose (Dextrose 50%-Water Syringe) 12.5 gm PRN Q15MIN PRN IV SEE COMMENTS; Start 07/15/17 at 17:45 Ondansetron HCl (Zofran) 4 mg PRN Q8HRS PRN IV NAUSEA/VOMITING; Start at 18:30; Stop 07/16/17 at 18:29 Sodium Chloride 1,000 ml @ 125 mls/hr Q8H IV Last administered on 07/16/17 03:56; Start 07/15/17 at 18:17; Stop 07/16/17 at 18:16 Ceftriaxone Sodium (Rocephin) 1 gm Q24H IVP ; Start 07/16/17 at 17:00 Azithromycin 500 mg/Sodium Chloride 250 ml @ 250 mls/hr Q24H IV ; Start at 18:00 Insulin Aspart (NovoLOG) 20 units 1X ONCE SQ Last administered on 07/16/17 06:44; Start 07/16/17 at 06:30; Stop 07/16/17 at 06:32; Status DC Insulin Aspart (NovoLOG) 5 units 1X ONCE SQ Last administered on 07/16/17 09 :11; Start 07/16/17 at 09:00; Stop 07/16/17 at 09:02; Status DC Sodium Chloride 1,000 ml @ 1,000 mls/hr Q1H PRN IV hypotension; Start at 10:47; Stop 07/16/17 at 16:46 Albumin Human 200 ml @ 200 mls/hr 1X PRN PRN IV Hypotension; Start 07/16/17 at 11:00; Stop 07/16/17 at 16:59 Sodium Chloride 1,000 ml @ 400 mls/hr Q2H30M PRN IV PATENCY; Start 07/16/17 at 10:47; Stop 07/16/17 at 22:46 Info (PHARMACY MONITORING -- do not chart) 1 each PRN DAILY PRN MC SEE COMMENTS ; Start 07/16/17 at 11:00 Diphenhydramine HCl (Benadryl) 25 mg 1X PRN PRN IV ITCHING Last administered on 07/16/17 11:48; Start 07/16/17 at 11:30; Stop 07/17/17 at 11:29 Sodium Bicarbonate (Sodium Bicarbonate) 1,300 mg DAILY PO Last administered on 07/16/17t 12:00; Start 07/16/17 at 12:00 Magnesium Sulfate/ Dextrose 50 ml @ 25 mls/hr PRN DAILY PRN IV for Mag < 1.7 on am labs; Start 07/16/17 at 12:15 Darbepoetin Brandan (Aranesp) 60 mcg WEEKLYHS SQ ; Start 07/19/17 at 21:00 Lactobacillus Rhamnosus (Culturelle) 1 cap BID PO ; Start 07/16/17 at 21:00 Active Scripts Active Aspirin Ec (Aspirin) 325 Mg Tablet.dr 325 Mg PO DAILYWBKFT 30 Days Reported Novolog Flexpen (Insulin Aspart) 100 Unit/1 Ml Insuln.pen 25 Unit SQ TIDAC Vitamin D (Cholecalciferol (Vitamin D3)) 50,000 Unit Capsule 50,000 Unit PO DAILY Tizanidine Hcl 2 Mg Capsule 2 Mg PO BID PRN Meclizine Hcl 25 Mg Tablet 1 Tab PO TID Voltaren (Diclofenac Sodium) 100 Gm Gel..gram. 1 Gm TP BID Hydrocodone-Apap 5-325 (Hydrocodone Bit/Acetaminophen) 1 Each Tablet 2 Tab PO PRN Q6HRS PRN Clonidine Hcl 0.2 Mg Tablet 0.2 Mg PO DAILY Gabapentin 100 Mg Capsule 100 Mg PO DAILY Zoloft (Sertraline Hcl) 50 Mg Tablet 75 Mg PO DAILY Renvela (Sevelamer Carbonate) 800 Mg Tablet 1 Tab PO TIDWMEALS Levothyroxine Sodium 175 Mcg Tablet 125 Mcg PO DAILYAC Lactulose 20 Gm/30 Ml Solution 10 Gm PO PRN TID PRN Dialyvite Corcoran D Tablet (Multivitamin, Min Cmb#25/Fa/D3) 1 Each Tablet 1 Each PO DAILY Metoprolol Succinate ( Xl ) (Metoprolol Succinate) 25 Mg Tab.er.24h 25 Mg PO DAILY Lantus Solostar (Insulin Glargine,Hum.rec.anlog) 100 Unit/1 Ml Insuln.pen 30 Unit SQ QHS Ondansetron Hcl 4 Mg Tablet 4 Mg PO Q6HRS PRN Zolpidem Tartrate 5 Mg Tablet 5 Mg PO PRN QHS PRN Famotidine 20 Mg Tablet 20 Mg PO DAILY Xifaxan (Rifaximin) 550 Mg Tablet 1 Tab PO BID Isosorbide Dinitrate 30 Mg Tablet 1 Tab PO DAILY Vitals/I & O Vital Sign - Last 24 Hours 07/15/17 07/15/17 07/15/17 07/15/17 16:43 17:21 17:27 17:51 Temp 98.4 98.4 Pulse 59 56 54 Resp 20 20 22 B/P (MAP) 130/58 (82) 131/60 (83) 131/60 (83) Pulse Ox 96 98 92 100 O2 Delivery Room Air Room Air Room Air Nasal Cannula O2 Flow Rate 2.0 07/15/17 07/15/17 07/15/17 07/15/17 18:21 19:00 19:00 19:43 Temp 98.3 98.3 98.3 98.3 Pulse 55 65 65 Resp 18 18 B/P (MAP) 143/65 (91) 113/46 (68) 113/46 (68) Pulse Ox 97 94 94 94 O2 Delivery Nasal Cannula Room Air Room Air Room Air O2 Flow Rate 2.0 07/15/17 07/15/17 07/16/17 07/16/17 20:00 22:44 01:18 03:00 Temp 98.3 98.2 98.3 98.2 Pulse 68 69 Resp 17 B/P (MAP) 119/51 (73) 130/46 (74) Pulse Ox 93 96 O2 Delivery Nasal Cannula Room Air Nasal Cannula Room Air O2 Flow Rate 2.0 2.0 07/16/17 07/16/17 07/16/17 07/16/17 07:30 07:55 08:00 15:00 Temp 97.4 97.9 97.4 97.9 Pulse 57 59 Resp 20 18 B/P (MAP) 142/54 (83) 130/60 (83) Pulse Ox 97 91 98 O2 Delivery Room Air Room Air Room Air Room Air Intake and Output 07/15/17 07/15/17 07/16/17 15:00 23:00 07:00 Intake Total 50 ml 200 ml Balance 50 ml 200 ml FEROZ KELLY MD Jul 16, 2017 16:32
--- NOTE | 2017-07-16 16:56 | CONS ---
DATE OF CONSULTATION: PRIMARY PHYSICIAN: Dr. Funez. REASON FOR CONSULTATION: ESRD dialysis. HISTORY OF PRESENT ILLNESS: The patient is a 71-year-old female, known diabetic with BILLINGS, has been on dialysis for the last few years. She dialyzes at [facility] on Friday, Friday, and Friday basis. She apparently developed high-grade fevers as high as 101 at home over the weekend. She also claims she has had some yellowish cough and phlegm. She has low-grade fevers currently. She presented to the ER for similar complaints. In the ER, she was noted to have sugars of 519. Vitals from the ER are not available for review at this time. She has been compliant with her dialysis and went yesterday; however, her sugars were 519 and potassium was 5.9, hence she is being dialyzed today. I have seen her on dialysis for the same. Fevers are being worked up by Dr. Funez. For rest of the details, see electronic records. RALPH ALONZO MD DR: TANYA/susannah JOB#: [id number] / [id number]
[2017-07-16 17:54] LABS: BASO % 0 % (0-3); EOS % 1 % (0-3); HEMATOCRIT 32.2 % (36.0-47.0); HEMOGLOBIN 10.9 g/dL (12.0-15.5); LYMPH # 0.7 x10^3/uL (1.0-4.8); LYMPH % 12 % (24-48); MEAN CORPUSCULAR HEMOGLOBIN 31 pg (25-35); MEAN CORPUSCULAR HGB CONC 34 g/dL (31-37); MEAN CORPUSCULAR VOLUME 91 fL (79-100); MONO % 14 % (0-9); NEUT % 73 % (31-73); PLATELET COUNT 76 x10^3/uL (140-400); RED BLOOD COUNT 3.55 x10^6/uL (3.50-5.40); RED CELL DISTRIBUTION WIDTH 15.8 % (11.5-14.5); WHITE BLOOD COUNT 5.7 x10^3/uL (4.0-11.0)
[2017-07-16] MEDS ORDERED: AZITHROMYCIN 500 MG in IV NORMAL SALINE 250ML 250 ML IV SCH (18:00)
[2017-07-16] MEDS: cefTRIAXone IV Push 1 GM VIAL. IVP SCH (18:15)
[2017-07-16 19:00] VITALS: BP 124/49
[2017-07-16] MEDS ORDERED: ZOLPIDEM 5 MG TABLET. PO ONE (20:30)
[2017-07-16] MEDS: LACTOBACILLUS RHAMNOSUS GG 1 CAPSULE. PO SCH (21:17)
[2017-07-16] MEDS: INSULIN DETEMIR 300 UNITS/3 ML INSULN.PEN. SQ SCH (21:26)
[2017-07-16 23:00] VITALS: BP 122/44
[2017-07-17 03:00] VITALS: BP 133/48
[2017-07-17 05:07] LABS: ALBUMIN 2.8 g/dL (3.4-5.0); CALCIUM 7.6 mg/dL (8.5-10.1); CREATININE 3.2 mg/dL (0.6-1.0); GFR 14.3; PHOSPHORUS 4.7 mg/dL (2.6-4.7); POTASSIUM 3.9 mmol/L (3.5-5.1)
[2017-07-17 07:00] VITALS: BP 138/59
[2017-07-17] MEDS: IPRATRPIUM/ALBUTEROL 0.5/2.5MG 3 ML NEBU. NEB SCH ×4 (07:04→19:55)
[2017-07-17] MEDS: LEVOTHYROXINE 125 MCG TABLET PO SCH (07:11)
[2017-07-17] MEDS: HEPARIN PF for SUB-Q USE 5,000 UNIT/0.5 ML VIAL. SQ SCH ×4 (07:14→22:00)
[2017-07-17] MEDS: ASPIRIN ENTERIC COATED 325 MG TABLET.DR. PO SCH (08:25)
[2017-07-17] MEDS: SEVELAMER CARBONATE 800 MG TABLET. PO SCH ×3 (08:25→17:46)
[2017-07-17] MEDS: MECLIZINE HCL 12.5 MG TABLET. PO SCH ×3 (08:26→20:57)
[2017-07-17] MEDS: SODIUM BICARBONATE 650 MG TABLET. PO SCH (08:26)
[2017-07-17] MEDS: MULTIVITAMIN with MINERAL TABLET. PO SCH (08:27)
[2017-07-17] MEDS: FAMOTIDINE 20 MG TABLET. PO SCH (08:27)
[2017-07-17] MEDS: BENZONATATE 100 MG CAPSULE. PO SCH ×3 (08:27→20:57)
[2017-07-17] MEDS: GABAPENTIN 100 MG CAPSULE. PO SCH (08:27)
[2017-07-17] MEDS: SERTRALINE 25 MG TABLET. PO SCH (08:27)
[2017-07-17] MEDS: AZITHROMYCIN 250 MG TABLET. PO SCH (08:28)
[2017-07-17] MEDS: LACTOBACILLUS RHAMNOSUS GG 1 CAPSULE. PO SCH ×2 (08:28→20:58)
[2017-07-17] MEDS: ISOSORBIDE MONONITRATE ER 30 MG TAB.ER.24H PO SCH (08:28)
[2017-07-17] MEDS: METOPROLOL SUCC 24HR ER 25 MG TAB.ER.24H. PO SCH (08:29)
[2017-07-17] MEDS: DOCUSATE SODIUM 100 MG CAPSULE. PO SCH ×2 (08:29→20:59)
[2017-07-17] MEDS: cloNIDine HCL 0.2 MG TABLET PO SCH (08:29)
[2017-07-17] MEDS: INSULIN ASPART 300 UNITS/3 ML INSULN.PEN SQ SCH ×6 (08:44→17:00)
[2017-07-17] MEDS: rifAXIMin 550 MG TABLET PO SCH ×2 (08:46→20:58)
--- NOTE | 2017-07-17 10:26 | RAD ---
Single view chest History:Follow-up, cough An AP view of the chest is submitted. Comparison: 07/15/2017. Findings: Cardiac silhouette is enlarged although stable. There is probable trace left pleural effusion. There is mild interstitial opacity although stable. There is no pneumothorax. Impression: 1. There is probable trace left pleural effusion. There is mild interstitial opacity which is stable.
--- NOTE | 2017-07-17 11:08 | PDOC ---
PROGRESS NOTES Chief Complaint Chief Complaint Acute hypoxic respir failure ASSESSMENT AND PLAN: 1. CHF exacerbation: echo in 02/2107 with pHTN 54, normal EF at 60. manage with UF at HD 2. Bronchitis: on azithro, ceftriax. 3. Leukopenia: prob 2/2 viral syndrome; resolved 4. ESRD: on HD, next on Sat 5. Anemia: 2/2 ESRD 6. End stage cirrhosis 7. Recurrent ascites: serial taps PRN 8. Thrombocytopenia: 2/2 cirrhosis/splenomegaly 9. Hepatic encephalopathy: on lactulose tid 10. DM2: fair control; cont home regimen and ISS 11. Diabetic neuropathy: on gabapentin 10. GERD: PPI 11. Hypothyroidism: on synthroid. check TSH - elevated in February. 13. Obesity 14. Qefwxym-Cqupj-Tcxam syndrome 15. Carpal tunnel syndrome History of Present Illness History of Present Illness fatigued, cough, no CP or palp Vitals Vitals Vital Signs Date Time Temp Pulse Resp B/P (MAP) Pulse Ox O2 Delivery O2 Flow Rate FiO2 07/17/17 08:29 66 138/59 07/17/17 07:07 Room Air 07/17/17 07:00 98.8 18 91 98.8 07/16/17 20:00 2.0 Physical Exam Physical Exam ROS General: YES: Chills, Fatigue, Malaise Eyes: No Blurry vision, No Decreased vision, No Double vision, No Dry eyes, No Excessive tearing, No Eye Pain, No Itchy Eyes, No Loss of vision, No Photophobia , No Scotomata, No Uses contacts, No Uses glasses, No Other HEENT: No: Heacaches, Visual Changes, Hearing change, Nasal congestion, Nasal discharge, Oral lesions, Sinus pain, Sore Throat, Epistaxis, Sneezing, Snoring, Tinnitus, Vertigo, Vocal changes, Other Hematological and Lymphatic: No: Bleeding Problems, Blood Clots, Blood Transfusions, Brusing, Night Sweats, Pallor, Swollen Lymph Nodes, Other ENDOCRINE: No: Breast Changes, Galactorrhea, Hair Pattern Changes, Hot Flashes , Malaise/lethargy, Mood Swings, Palpitations, Polydipsia/polyuria, Skin Changes , Temperature Intolerance, Unexpected Weight Changes, Other Respiratory: YES: Cough, Shortness of breath, SOB with excertion, Sputum Changes, No: Hemoptysis, Orthopnea, Pleuritic Pain, Stridor, Tachypnea, Wheezing, Other Cardiovascular: No Chest Pain, No Palpitations, No Orthopnea, No Paroxysmal Noc. Dyspnea, No Edema, No Lt Headedness, No Other Genitourinary: No Dysuria, No Frequency, No Incontinence, No Hematuria, No Retention, No Discharge, No Urgency, No Pain, No Flank Pain, No Other, No , No , No , No , No , No , No Musculoskeletal: No Gait Disturbance, No Joint Pain, No Joint Stiffness, No Joint Swelling, No Muscle Pain, No Muscular Weakness, No Pain In:, No Swelling In:, No Other Neurological: No Behavorial Changes, No Bowel/Bladder ControlChng, No Confusion , No Dizziness, No Gait Disturbance, No Headaches, No Impaired Coord/balance, No Memory Loss, No Numbness/Tingling, No Seizures, No Speech Problems, No Tremors, No Visual Changes, No Weakness, No Other Skin: No Dry Skin, No Eczema, No Hair Changes, No Lumps, No Mole Changes, No Mottling, No Nail Changes, No Pruritus, No Rash, No Skin Lesion Changes, No Other, No Acne Physical Exam General: Alert, Oriented X3, Cooperative, No acute distress HEENT: Atraumatic, PERRLA, EOMI Lungs: Clear to auscultation, Normal air movement Heart: S1S2, RRR, no thrills, no rubs, no gallops, no murmurs Cardiovascular: S1, S2 Abdomen: Normal bowel sounds, Soft, No tenderness, No hepatosplenomegaly, No masses Rectal Exam: not examined PELVIC: Nml ext genitalia Extremities: No clubbing, No cyanosis, No edema, Normal pulses, No tenderness/ swelling Skin: No rashes, No breakdown, No significant lesion Neuro: Normal gait, Normal speech, Strength at 5/5 X4 ext, Normal tone, Sensation intact, Cranial nerves 3-12 NL, Reflexes 2+ Psych/Mental Status: Mental status NL, Mood NL General: Alert, Oriented X3, Cooperative, No acute distress Lungs: Clear Abdomen: Normal bowel sounds, Soft, No tenderness Extremities: No edema Skin: No rashes Labs LABS Laboratory Tests Test 07/16/17 11:12 07/16/17 16:07 07/16/17 17:02 07/16/17 17:40 Glucose (Fingerstick) 480 mg/dL (70-99) 46 mg/dL (70-99) 91 mg/dL (70-99) White Blood Count 5.7 x10^3/uL (4.0-11.0) Red Blood Count 3.55 x10^6/uL (3.50-5.40) Hemoglobin 10.9 g/dL (12.0-15.5) Hematocrit 32.2 % (36.0-47.0) Mean Corpuscular Volume 91 fL (79-100) Mean Corpuscular Hemoglobin 31 pg (25-35) Mean Corpuscular Hemoglobin Concent 34 g/dL (31-37) Red Cell Distribution Width 15.8 % (11.5-14.5) Platelet Count 76 x10^3/uL (140-400) Neutrophils (%) (Auto) 73 % (31-73) Lymphocytes (%) (Auto) 12 % (24-48) Monocytes (%) (Auto) 14 % (0-9) Eosinophils (%) (Auto) 1 % (0-3) Basophils (%) (Auto) 0 % (0-3) Neutrophils # (Auto) 4.1 x10^3uL (1.8-7.7) Lymphocytes # (Auto) 0.7 x10^3/uL (1.0-4.8) Monocytes # (Auto) 0.8 x10^3/uL (0.0-1.1) Eosinophils # (Auto) 0.1 x10^3/uL (0.0-0.7) Basophils # (Auto) 0.0 x10^3/uL (0.0-0.2) Test 07/16/17 19:42 07/16/17 20:53 07/17/17 04:22 07/17/17 07:43 Glucose (Fingerstick) 134 mg/dL (70-99) 139 mg/dL (70-99) 197 mg/dL (70-99) Hemoglobin 9.7 g/dL (12.0-15.5) Sodium Level 137 mmol/L (136-145) Potassium Level 3.9 mmol/L (3.5-5.1) Chloride Level 100 mmol/L (98-107) Carbon Dioxide Level 30 mmol/L (21-32) Anion Gap 7 (6-14) Blood Urea Nitrogen 39 mg/dL (7-20) Creatinine 3.2 mg/dL (0.6-1.0) Estimated GFR (Cockcroft-Gault) 14.3 Glucose Level 297 mg/dL (70-99) Calcium Level 7.6 mg/dL (8.5-10.1) Phosphorus Level 4.7 mg/dL (2.6-4.7) Magnesium Level 2.0 mg/dL (1.8-2.4) Albumin 2.8 g/dL (3.4-5.0) CATHERINE GIPSON MD Jul 17, 2017 11:08
[2017-07-17 11:12] VITALS: BP 90/44
[2017-07-17] MEDS: DICLOFENAC SODIUM 1% TOPICAL GEL 100GM TUBE. TP SCH ×2 (12:27→21:01)
[2017-07-17 15:25] VITALS: BP 113/41
[2017-07-17] MEDS: cefTRIAXone IV Push 1 GM VIAL. IVP SCH (17:48)
[2017-07-17 19:00] VITALS: BP 107/52
[2017-07-17] MEDS: INSULIN DETEMIR 300 UNITS/3 ML INSULN.PEN. SQ SCH (21:12)
[2017-07-17] MEDS ORDERED: ZOLPIDEM 5 MG TABLET. PO PRN (21:30)
[2017-07-17 23:00] VITALS: BP 115/56
[2017-07-18] MEDS: DICLOFENAC SODIUM 1% TOPICAL GEL 100GM TUBE. TP SCH ×2 (01:01→09:00)
[2017-07-18 03:00] VITALS: BP 106/93
[2017-07-18] MEDS: HEPARIN PF for SUB-Q USE 5,000 UNIT/0.5 ML VIAL. SQ SCH ×2 (06:00→14:00)
[2017-07-18 06:15] LABS: BASO % 1 % (0-3); EOS % 4 % (0-3); HEMATOCRIT 27.5 % (36.0-47.0); HEMOGLOBIN 9.5 g/dL (12.0-15.5); LYMPH # 0.6 x10^3/uL (1.0-4.8); LYMPH % 22 % (24-48); MEAN CORPUSCULAR HEMOGLOBIN 31 pg (25-35); MEAN CORPUSCULAR HGB CONC 35 g/dL (31-37); MEAN CORPUSCULAR VOLUME 90 fL (79-100); MONO % 12 % (0-9); NEUT % 60 % (31-73); PLATELET COUNT 53 x10^3/uL (140-400); RED BLOOD COUNT 3.07 x10^6/uL (3.50-5.40); RED CELL DISTRIBUTION WIDTH 15.7 % (11.5-14.5); WHITE BLOOD COUNT 2.5 x10^3/uL (4.0-11.0)
[2017-07-18] MEDS: LEVOTHYROXINE 125 MCG TABLET PO SCH (06:19)
[2017-07-18 07:00] VITALS: BP 136/60
[2017-07-18 07:26] LABS: ALBUMIN 2.8 g/dL (3.4-5.0); PHOSPHORUS 5.8 mg/dL (2.6-4.7)
[2017-07-18 07:29] LABS: CALCIUM 7.1 mg/dL (8.5-10.1); CREATININE 4.3 mg/dL (0.6-1.0); GFR 10.2; POTASSIUM 3.9 mmol/L (3.5-5.1)
[2017-07-18] MEDS: INSULIN ASPART 300 UNITS/3 ML INSULN.PEN SQ SCH ×4 (07:30→12:00)
[2017-07-18] MEDS: SEVELAMER CARBONATE 800 MG TABLET. PO SCH ×2 (08:00→12:54)
[2017-07-18] MEDS ORDERED: IV NORMAL SALINE 1000ML BAG 1,000 ML IV PRN ×2 (08:04)
[2017-07-18] MEDS ORDERED: DIALYSIS PATIENT. MC PRN ×2 (08:15)
[2017-07-18] MEDS: SODIUM BICARBONATE 650 MG TABLET. PO SCH (08:30)
[2017-07-18] MEDS: IPRATRPIUM/ALBUTEROL 0.5/2.5MG 3 ML NEBU. NEB SCH ×2 (08:39→11:50)
[2017-07-18] MEDS ORDERED: LIDOCAINE 1% PF 2 ML VIAL. ONE (08:49)
[2017-07-18] MEDS: DOCUSATE SODIUM 100 MG CAPSULE. PO SCH (09:00)
[2017-07-18 11:00] VITALS: BP 143/53
[2017-07-18] MEDS: LACTOBACILLUS RHAMNOSUS GG 1 CAPSULE. PO SCH (12:54)
[2017-07-18] MEDS: ASPIRIN ENTERIC COATED 325 MG TABLET.DR. PO SCH (12:54)
[2017-07-18] MEDS: cloNIDine HCL 0.2 MG TABLET PO SCH (12:55)
[2017-07-18] MEDS: SERTRALINE 25 MG TABLET. PO SCH (12:55)
[2017-07-18] MEDS: rifAXIMin 550 MG TABLET PO SCH (12:55)
[2017-07-18] MEDS: GABAPENTIN 100 MG CAPSULE. PO SCH (12:56)
[2017-07-18] MEDS: METOPROLOL SUCC 24HR ER 25 MG TAB.ER.24H. PO SCH (12:56)
[2017-07-18] MEDS: BENZONATATE 100 MG CAPSULE. PO SCH ×2 (12:56→13:24)
[2017-07-18] MEDS: ISOSORBIDE MONONITRATE ER 30 MG TAB.ER.24H PO SCH (12:56)
[2017-07-18] MEDS: MECLIZINE HCL 12.5 MG TABLET. PO SCH ×2 (12:56→13:24)
[2017-07-18] MEDS: AZITHROMYCIN 250 MG TABLET. PO SCH (12:57)
[2017-07-18] MEDS: FAMOTIDINE 20 MG TABLET. PO SCH (12:57)
[2017-07-18] MEDS: MULTIVITAMIN with MINERAL TABLET. PO SCH (12:57)
--- NOTE | 2017-07-18 13:43 | PDOC ---
PROGRESS NOTES Chief Complaint Chief Complaint Acute hypoxic respir failure ASSESSMENT AND PLAN: 1. CHF exacerbation: resolved. echo in 02/2107 with pHTN 54, normal EF at 60. manage with UF at HD 2. Bronchitis: on azithro, ceftriax. 3. Leukopenia: prob 2/2 viral syndrome; resolved 4. ESRD: on HD, next on Sat 5. Anemia: 2/2 ESRD 6. End stage cirrhosis 7. Recurrent ascites: serial taps PRN 8. Thrombocytopenia: 2/2 cirrhosis/splenomegaly 9. Hepatic encephalopathy: on lactulose tid 10. DM2: fair control; cont home regimen and ISS 11. Diabetic neuropathy: on gabapentin 10. GERD: PPI 11. Hypothyroidism: on synthroid. check TSH - elevated in February. 13. Obesity 14. Zsgcmbd-Klzca-Bgpbv syndrome 15. Carpal tunnel syndrome History of Present Illness History of Present Illness feels much improved. eager to go home Vitals Vitals Vital Signs Date Time Temp Pulse Resp B/P (MAP) Pulse Ox O2 Delivery O2 Flow Rate FiO2 07/18/17 12:56 63 143/53 07/18/17 11:51 96 Room Air 07/18/17 11:00 99.1 20 99.1 Physical Exam General: Alert, Oriented X3, Cooperative, No acute distress Heart: Regular rate Lungs: Clear Abdomen: Normal bowel sounds, Soft, No tenderness Extremities: No edema Skin: No rashes Labs LABS Laboratory Tests Test 07/17/17 15:58 07/17/17 20:12 07/18/17 05:20 07/18/17 07:06 Glucose (Fingerstick) 52 mg/dL (70-99) 70 mg/dL (70-99) 46 mg/dL (70-99) White Blood Count 2.5 x10^3/uL (4.0-11.0) Red Blood Count 3.07 x10^6/uL (3.50-5.40) Hemoglobin 9.5 g/dL (12.0-15.5) Hematocrit 27.5 % (36.0-47.0) Mean Corpuscular Volume 90 fL (79-100) Mean Corpuscular Hemoglobin 31 pg (25-35) Mean Corpuscular Hemoglobin Concent 35 g/dL (31-37) Red Cell Distribution Width 15.7 % (11.5-14.5) Platelet Count 53 x10^3/uL (140-400) Neutrophils (%) (Auto) 60 % (31-73) Lymphocytes (%) (Auto) 22 % (24-48) Monocytes (%) (Auto) 12 % (0-9) Eosinophils (%) (Auto) 4 % (0-3) Basophils (%) (Auto) 1 % (0-3) Neutrophils # (Auto) 1.5 x10^3uL (1.8-7.7) Lymphocytes # (Auto) 0.6 x10^3/uL (1.0-4.8) Monocytes # (Auto) 0.3 x10^3/uL (0.0-1.1) Eosinophils # (Auto) 0.1 x10^3/uL (0.0-0.7) Basophils # (Auto) 0.0 x10^3/uL (0.0-0.2) Sodium Level 137 mmol/L (136-145) Potassium Level 3.9 mmol/L (3.5-5.1) Chloride Level 101 mmol/L (98-107) Carbon Dioxide Level 29 mmol/L (21-32) Anion Gap 7 (6-14) Blood Urea Nitrogen 59 mg/dL (7-20) Creatinine 4.3 mg/dL (0.6-1.0) Estimated GFR (Cockcroft-Gault) 10.2 Glucose Level 47 mg/dL (70-99) Calcium Level 7.1 mg/dL (8.5-10.1) Phosphorus Level 5.8 mg/dL (2.6-4.7) Magnesium Level 1.9 mg/dL (1.8-2.4) Albumin 2.8 g/dL (3.4-5.0) 25-Hydroxy Vitamin D Total 38.7 ng/mL (30-100) Test 07/18/17 07:44 07/18/17 12:42 Glucose (Fingerstick) 173 mg/dL (70-99) 101 mg/dL (70-99) CATHERINE GIPSON MD Jul 18, 2017 13:43
[2017-07-18] MEDS ORDERED: DOXY100C14 PO (13:46)
--- NOTE | 2017-07-18 14:46 | PDOC ---
PROGRESS NOTES Subjective Subjective SEEN IN FOLLOW UP OF ESRD Objective Objective Vital Signs Date Time Temp Pulse Resp B/P (MAP) Pulse Ox O2 Delivery O2 Flow Rate FiO2 07/18/17 12:56 63 143/53 07/18/17 11:51 96 Room Air 07/18/17 11:00 99.1 20 99.1 07/16/17 20:00 2.0 Intake and Output 07/18/17 07:00 Intake Total 1460 ml Output Total 750 ml Balance 710 ml Intake Oral 1460 ml Output Urine Total 750 ml # Voids 2 Physical Exam Abdomen: Normal bowel sounds, Soft, No tenderness, No hepatosplenomegaly, No masses Heart: Regular rate, Normal S1, Normal S2, No murmurs, Gallops Extremities: No clubbing, No cyanosis, No edema, Normal pulses, No tenderness/ swelling General: Alert, Oriented X3, Cooperative, No acute distress Psych/Mental Status: Mental status NL, Mood NL Diagnosis RENAL FAILURE: ESRD Assessment Assessment Problems Medical Problems: (1) Acute dyspnea Status: Acute (2) COPD exacerbation Status: Acute (3) Fever Status: Acute (4) Pneumonia Status: Acute Plan Plan of Care DIALYSIS TODAY FOR SOLUTE CLEARANCE AND FLUID BALANCE. FOR D/C TODAY. TO OUTPATIENT DIALYSIS TOMORROW. EPOGEN FOR ANEMIA OF CKD GIVEN. SOME HYPOTENSION ATYEND OF DIALYSIS LIKELY DUE TO "AT DRY WEIGHT" Comment Review of Relevant I have reviewed the following items karyn (where applicable) has been applied. Labs Laboratory Tests Test 07/16/17 16:07 07/16/17 17:02 07/16/17 17:40 07/16/17 19:42 Glucose (Fingerstick) 46 mg/dL (70-99) 91 mg/dL (70-99) 134 mg/dL (70-99) White Blood Count 5.7 x10^3/uL (4.0-11.0) Red Blood Count 3.55 x10^6/uL (3.50-5.40) Hemoglobin 10.9 g/dL (12.0-15.5) Hematocrit 32.2 % (36.0-47.0) Mean Corpuscular Volume 91 fL (79-100) Mean Corpuscular Hemoglobin 31 pg (25-35) Mean Corpuscular Hemoglobin Concent 34 g/dL (31-37) Red Cell Distribution Width 15.8 % (11.5-14.5) Platelet Count 76 x10^3/uL (140-400) Neutrophils (%) (Auto) 73 % (31-73) Lymphocytes (%) (Auto) 12 % (24-48) Monocytes (%) (Auto) 14 % (0-9) Eosinophils (%) (Auto) 1 % (0-3) Basophils (%) (Auto) 0 % (0-3) Neutrophils # (Auto) 4.1 x10^3uL (1.8-7.7) Lymphocytes # (Auto) 0.7 x10^3/uL (1.0-4.8) Monocytes # (Auto) 0.8 x10^3/uL (0.0-1.1) Eosinophils # (Auto) 0.1 x10^3/uL (0.0-0.7) Basophils # (Auto) 0.0 x10^3/uL (0.0-0.2) Test 07/16/17 20:53 07/17/17 04:22 07/17/17 07:43 07/17/17 10:55 Glucose (Fingerstick) 139 mg/dL (70-99) 197 mg/dL (70-99) 87 mg/dL (70-99) Hemoglobin 9.7 g/dL (12.0-15.5) Sodium Level 137 mmol/L (136-145) Potassium Level 3.9 mmol/L (3.5-5.1) Chloride Level 100 mmol/L (98-107) Carbon Dioxide Level 30 mmol/L (21-32) Anion Gap 7 (6-14) Blood Urea Nitrogen 39 mg/dL (7-20) Creatinine 3.2 mg/dL (0.6-1.0) Estimated GFR (Cockcroft-Gault) 14.3 Glucose Level 297 mg/dL (70-99) Calcium Level 7.6 mg/dL (8.5-10.1) Phosphorus Level 4.7 mg/dL (2.6-4.7) Magnesium Level 2.0 mg/dL (1.8-2.4) GM-Ldx-W-Type Natriuretic Peptide 4853 pg/mL (0-124) Albumin 2.8 g/dL (3.4-5.0) Test 07/17/17 15:58 07/17/17 20:12 07/18/17 05:20 07/18/17 07:06 Glucose (Fingerstick) 52 mg/dL (70-99) 70 mg/dL (70-99) 46 mg/dL (70-99) White Blood Count 2.5 x10^3/uL (4.0-11.0) Red Blood Count 3.07 x10^6/uL (3.50-5.40) Hemoglobin 9.5 g/dL (12.0-15.5) Hematocrit 27.5 % (36.0-47.0) Mean Corpuscular Volume 90 fL (79-100) Mean Corpuscular Hemoglobin 31 pg (25-35) Mean Corpuscular Hemoglobin Concent 35 g/dL (31-37) Red Cell Distribution Width 15.7 % (11.5-14.5) Platelet Count 53 x10^3/uL (140-400) Neutrophils (%) (Auto) 60 % (31-73) Lymphocytes (%) (Auto) 22 % (24-48) Monocytes (%) (Auto) 12 % (0-9) Eosinophils (%) (Auto) 4 % (0-3) Basophils (%) (Auto) 1 % (0-3) Neutrophils # (Auto) 1.5 x10^3uL (1.8-7.7) Lymphocytes # (Auto) 0.6 x10^3/uL (1.0-4.8) Monocytes # (Auto) 0.3 x10^3/uL (0.0-1.1) Eosinophils # (Auto) 0.1 x10^3/uL (0.0-0.7) Basophils # (Auto) 0.0 x10^3/uL (0.0-0.2) Sodium Level 137 mmol/L (136-145) Potassium Level 3.9 mmol/L (3.5-5.1) Chloride Level 101 mmol/L (98-107) Carbon Dioxide Level 29 mmol/L (21-32) Anion Gap 7 (6-14) Blood Urea Nitrogen 59 mg/dL (7-20) Creatinine 4.3 mg/dL (0.6-1.0) Estimated GFR (Cockcroft-Gault) 10.2 Glucose Level 47 mg/dL (70-99) Calcium Level 7.1 mg/dL (8.5-10.1) Phosphorus Level 5.8 mg/dL (2.6-4.7) Magnesium Level 1.9 mg/dL (1.8-2.4) Albumin 2.8 g/dL (3.4-5.0) 25-Hydroxy Vitamin D Total 38.7 ng/mL (30-100) Test 07/18/17 07:44 07/18/17 12:42 Glucose (Fingerstick) 173 mg/dL (70-99) 101 mg/dL (70-99) Laboratory Tests Test 07/17/17 15:58 07/17/17 20:12 07/18/17 05:20 07/18/17 07:06 Glucose (Fingerstick) 52 mg/dL (70-99) 70 mg/dL (70-99) 46 mg/dL (70-99) White Blood Count 2.5 x10^3/uL (4.0-11.0) Red Blood Count 3.07 x10^6/uL (3.50-5.40) Hemoglobin 9.5 g/dL (12.0-15.5) Hematocrit 27.5 % (36.0-47.0) Mean Corpuscular Volume 90 fL (79-100) Mean Corpuscular Hemoglobin 31 pg (25-35) Mean Corpuscular Hemoglobin Concent 35 g/dL (31-37) Red Cell Distribution Width 15.7 % (11.5-14.5) Platelet Count 53 x10^3/uL (140-400) Neutrophils (%) (Auto) 60 % (31-73) Lymphocytes (%) (Auto) 22 % (24-48) Monocytes (%) (Auto) 12 % (0-9) Eosinophils (%) (Auto) 4 % (0-3) Basophils (%) (Auto) 1 % (0-3) Neutrophils # (Auto) 1.5 x10^3uL (1.8-7.7) Lymphocytes # (Auto) 0.6 x10^3/uL (1.0-4.8) Monocytes # (Auto) 0.3 x10^3/uL (0.0-1.1) Eosinophils # (Auto) 0.1 x10^3/uL (0.0-0.7) Basophils # (Auto) 0.0 x10^3/uL (0.0-0.2) Sodium Level 137 mmol/L (136-145) Potassium Level 3.9 mmol/L (3.5-5.1) Chloride Level 101 mmol/L (98-107) Carbon Dioxide Level 29 mmol/L (21-32) Anion Gap 7 (6-14) Blood Urea Nitrogen 59 mg/dL (7-20) Creatinine 4.3 mg/dL (0.6-1.0) Estimated GFR (Cockcroft-Gault) 10.2 Glucose Level 47 mg/dL (70-99) Calcium Level 7.1 mg/dL (8.5-10.1) Phosphorus Level 5.8 mg/dL (2.6-4.7) Magnesium Level 1.9 mg/dL (1.8-2.4) Albumin 2.8 g/dL (3.4-5.0) 25-Hydroxy Vitamin D Total 38.7 ng/mL (30-100) Test 07/18/17 07:44 07/18/17 12:42 Glucose (Fingerstick) 173 mg/dL (70-99) 101 mg/dL (70-99) Microbiology 07/15/17 Blood Culture - Preliminary, Resulted NO GROWTH AFTER 2 DAYS Medications Current Medications Sodium Chloride 1,000 ml @ 125 mls/hr Q8H IV Last administered on 07/15/17 17:12; Start 07/15/17 at 16:52; Stop 07/16/17 at 16:51; Status DC Albuterol/ Ipratropium (Duoneb) 3 ml 1X ONCE NEB Last administered on 17:27; Start 07/15/17 at 17:00; Stop 07/15/17 at 17:01; Status DC Methylprednisolone Sodium Succinate (SOLU-Medrol 125MG VIAL) 125 mg 1X ONCE IV Last administered on 07/15/17 17:15; Start 07/15/17 at 17:00; Stop at 17:01; Status DC Ceftriaxone Sodium 1 gm/ Dextrose 50 ml @ 0 mls/hr 1X ONCE IV ; Start at 17:00; Stop 07/15/17 at 17:01; Status UNV Azithromycin 250 ml @ 250 mls/hr 1X ONCE IV Last administered on 07/15/17 18:30; Start 07/15/17 at 17:00; Stop 07/15/17 at 17:59; Status DC Ceftriaxone Sodium 50 ml @ 100 mls/hr 1X ONCE IV Last administered on 17:19; Start 07/15/17 at 17:00; Stop 07/15/17 at 17:29; Status DC Ondansetron HCl (Zofran) 4 mg PRN Q6HRS PRN IV NAUSEA/VOMITING, 1ST CHOICE; Start 07/15/17 at 17:30 Prochlorperazine Edisylate (Compazine) 10 mg PRN Q6HRS PRN IV NAUSEA/VOMITING, 2ND CHOICE Last administered on 07/18/17 04:34; Start 07/15/17 at 17:30 Prochlorperazine (Compazine) 25 mg PRN Q12HR PRN MA NAUSEA/VOMITING; Start at 17:30 Al Hydroxide/Mg Hydroxide (Mylanta Plus Xs) 30 ml PRN Q3HRS PRN PO HEARTBURN / GAS; Start 07/15/17 at 17:30 Calcium Carbonate/ Glycine (Tums) 500 mg PRN Q3HRS PRN PO UPSET STOMACH; Start 07/15/17 at 17:30 Morphine Sulfate 1 mg PRN Q1HR PRN IV PAIN; Start 07/15/17 at 17:30 Acetaminophen (Tylenol) 650 mg PRN Q6HRS PRN PO Headaches, Temp > 101.5F; Start 07/15/17 at 17:30 Docusate Sodium (Colace) 100 mg BID PO Last administered on 07/17/17 08:29; Start 07/15/17 at 21:00 Magnesium Hydroxide (Milk Of Magnesia) 2,400 mg PRN Q12HR PRN PO CONSTIPATION; Start 07/15/17 at 17:30 Lactulose 20 gm PRN Q12HR PRN PO CONSTIPATION; Start 07/15/17 at 17:30 Heparin Sodium (Porcine) (Heparin Sq) 5,000 unit Q8HRS SQ Last administered on 07/17/17 07:14; Start 07/15/17 at 22:00 Albuterol/ Ipratropium (Duoneb) 3 ml RTQID NEB Last administered on 07/18/17 11:50; Start 07/15/17 at 20:00 Benzonatate (Tessalon Perle) 100 mg [id number] PO Last administered on 07/18/17 12:56; Start 07/15/17 at 21:00 Guaifenesin (Robitussin Dm) 10 ml PRN Q6HRS PRN PO COUGH Last administered on 07/16/17 21:17; Start 07/15/17 at 17:30 Ceftriaxone Sodium 1 gm/ Dextrose 50 ml @ 100 mls/hr Q24H IV ; Start 07/15/17 at 17:30; Stop 07/15/17 at 18:56; Status DC Azithromycin 500 mg/Sodium Chloride 250 ml @ 250 mls/hr Q24H IV ; Start at 17:30; Stop 07/15/17 at 18:57; Status DC Aspirin (Ecotrin) 325 mg [id number] PO Last administered on 07/18/17 12:54; Start 07/16/17 at 08:00 Clonidine HCl (Catapres) 0.2 mg DAILY PO Last administered on 07/18/17 12:55 ; Start 07/16/17 at 09:00 Diclofenac Sodium (Voltaren) 1 ronel BID TP Last administered on 07/17/17 21:01 ; Start 07/15/17 at 21:00 Famotidine (Pepcid) 20 mg DAILY PO Last administered on 07/18/17 12:57; Start 07/16/17 at 09:00 Gabapentin (Neurontin) 100 mg DAILY PO Last administered on 07/18/17 12:56; Start 07/16/17 at 09:00 Acetaminophen/ Hydrocodone Bitart (Lortab 5/325) 2 tab PRN Q6HRS PRN PO PAIN; Start 07/15/17 at 17:45 Insulin Aspart (NovoLOG) 25 units TIDAC SQ Last administered on 07/17/17 12: 35; Start 07/16/17 at 07:30 Levothyroxine Sodium (Synthroid) 125 mcg DAILY07 PO Last administered on 06:19; Start 07/16/17 at 07:00 Metoprolol Succinate (Toprol Xl) 25 mg DAILY PO Last administered on 12:56; Start 07/16/17 at 09:00 Rifaximin (Xifaxan) 550 mg BID PO Last administered on 07/18/17 12:55; Start 07/15/17 at 21:00 Sertraline HCl (Zoloft) 75 mg DAILY PO Last administered on 07/18/17 12:55; Start 07/16/17 at 09:00 Sevelamer Carbonate (Renvela) 800 mg TIDWMEALS PO Last administered on 12:54; Start 07/16/17 at 08:00 Ergocalciferol (Vitamin D2) 50,000 unit WEEKLY PO Last administered on 08:12; Start 07/16/17 at 09:00 Insulin Detemir (Levemir) 30 units QHS SQ Last administered on 07/17/17 21:12 ; Start 07/15/17 at 21:00; Stop 07/18/17 at 13:28; Status DC Isosorbide Mononitrate (Imdur) 30 mg DAILY PO Last administered on 07/18/17 12:56; Start 07/16/17 at 09:00 Non-Formulary Medication 10 gm PRN TID PRN PO CONSTIPATION; Start 07/15/17 at 17:45; Status UNV Meclizine HCl (Antivert) 25 mg TID PO Last administered on 07/18/17 12:56; Start 07/15/17 at 21:00 Multivitamins (Thera M Plus) 1 tab DAILY PO Last administered on 07/18/17 12: 57; Start 07/16/17 at 09:00 Ondansetron HCl (Zofran Odt) 4 mg PRN Q6HRS PRN PO NAUSEA/VOMITING; Start at 18:15 Tizanidine HCl (Zanaflex) 2 mg PRN Q12HRS PRN PO MUSCLE SPASMS; Start at 18:15 Insulin Aspart (NovoLOG) 0-9 UNITS TIDWMEALS SQ Last administered on 08:44; Start 07/16/17 at 08:00 Dextrose (Dextrose 50%-Water Syringe) 12.5 gm PRN Q15MIN PRN IV SEE COMMENTS Last administered on 07/18/17 07:14; Start 07/15/17 at 17:45 Ondansetron HCl (Zofran) 4 mg PRN Q8HRS PRN IV NAUSEA/VOMITING; Start at 18:30; Stop 07/16/17 at 18:29; Status DC Sodium Chloride 1,000 ml @ 125 mls/hr Q8H IV Last administered on 07/16/17 03:56; Start 07/15/17 at 18:17; Stop 07/16/17 at 18:16; Status DC Ceftriaxone Sodium (Rocephin) 1 gm Q24H IVP Last administered on 07/17/17 17: 48; Start 07/16/17 at 17:00 Azithromycin 500 mg/Sodium Chloride 250 ml @ 250 mls/hr Q24H IV Last administered on 07/16/17 18:15; Start 07/16/17 at 18:00; Stop 07/17/17 at 06 :00; Status DC Insulin Aspart (NovoLOG) 20 units 1X ONCE SQ Last administered on 07/16/17 06:44; Start 07/16/17 at 06:30; Stop 07/16/17 at 06:32; Status DC Insulin Aspart (NovoLOG) 5 units 1X ONCE SQ Last administered on 07/16/17 09 :11; Start 07/16/17 at 09:00; Stop 07/16/17 at 09:02; Status DC Sodium Chloride 1,000 ml @ 1,000 mls/hr Q1H PRN IV hypotension; Start at 10:47; Stop 07/16/17 at 16:46; Status DC Albumin Human 200 ml @ 200 mls/hr 1X PRN PRN IV Hypotension; Start 07/16/17 at 11:00; Stop 07/16/17 at 16:59; Status DC Sodium Chloride 1,000 ml @ 400 mls/hr Q2H30M PRN IV PATENCY; Start 07/16/17 at 10:47; Stop 07/16/17 at 22:46; Status DC Info (PHARMACY MONITORING -- do not chart) 1 each PRN DAILY PRN MC SEE COMMENTS ; Start 07/16/17 at 11:00 Diphenhydramine HCl (Benadryl) 25 mg 1X PRN PRN IV ITCHING Last administered on 07/16/17 11:48; Start 07/16/17 at 11:30; Stop 07/17/17 at 11:29; Status DC Sodium Bicarbonate (Sodium Bicarbonate) 1,300 mg DAILY PO Last administered on 07/18/17 08:30; Start 07/16/17 at 12:00 Magnesium Sulfate/ Dextrose 50 ml @ 25 mls/hr PRN DAILY PRN IV for Mag < 1.7 on am labs; Start 07/16/17 at 12:15 Darbepoetin Brandan (Aranesp) 60 mcg WEEKLYHS SQ ; Start 07/19/17 at 21:00 Lactobacillus Rhamnosus (Culturelle) 1 cap BID PO Last administered on 12:54; Start 07/16/17 at 21:00 Zolpidem Tartrate (Ambien) 5 mg 1X ONCE PO Last administered on 07/16/17 21: 17; Start 07/16/17 at 20:30; Stop 07/16/17 at 20:31; Status DC Azithromycin (Zithromax) 500 mg DAILY PO Last administered on 07/18/17 12:57 ; Start 07/17/17 at 09:00 Zolpidem Tartrate (Ambien) 2.5 mg PRN QHS PRN PO INSOMNIA Last administered on 07/17/17 23:01; Start 07/17/17 at 21:30 Sodium Chloride 1,000 ml @ 1,000 mls/hr Q1H PRN IV hypotension; Start at 08:04; Stop 07/18/17 at 14:03; Status DC Sodium Chloride 1,000 ml @ 400 mls/hr Q2H30M PRN IV PATENCY; Start 07/18/17 at 08:04; Stop 07/18/17 at 20:03 Info (PHARMACY MONITORING -- do not chart) 1 each PRN DAILY PRN MC SEE COMMENTS ; Start 07/18/17 at 08:15; Status UNV Info (PHARMACY MONITORING -- do not chart) 1 each PRN DAILY PRN MC SEE COMMENTS ; Start 07/18/17 at 08:15; Status UNV Insulin Detemir (Levemir) 25 units QHS SQ ; Start 07/18/17 at 21:00 Active Scripts Active Doxycycline Monohydrate 100 Mg Capsule 1 Cap PO BID Aspirin Ec (Aspirin) 325 Mg Tablet.dr 325 Mg PO [id number] 30 Days Reported Novolog Flexpen (Insulin Aspart) 100 Unit/1 Ml Insuln.pen 25 Unit SQ TIDAC Vitamin D (Cholecalciferol (Vitamin D3)) 50,000 Unit Capsule 50,000 Unit PO DAILY Tizanidine Hcl 2 Mg Capsule 2 Mg PO BID PRN Meclizine Hcl 25 Mg Tablet 1 Tab PO TID Voltaren (Diclofenac Sodium) 100 Gm Gel..gram. 1 Gm TP BID Hydrocodone-Apap 5-325 (Hydrocodone Bit/Acetaminophen) 1 Each Tablet 2 Tab PO PRN Q6HRS PRN Clonidine Hcl 0.2 Mg Tablet 0.2 Mg PO DAILY Gabapentin 100 Mg Capsule 100 Mg PO DAILY Zoloft (Sertraline Hcl) 50 Mg Tablet 75 Mg PO DAILY Renvela (Sevelamer Carbonate) 800 Mg Tablet 1 Tab PO TIDWMEALS Levothyroxine Sodium 175 Mcg Tablet 125 Mcg PO DAILYAC Lactulose 20 Gm/30 Ml Solution 10 Gm PO PRN TID PRN Dialyvite [place] D Tablet (Multivitamin, Min Cmb#25/Fa/D3) 1 Each Tablet 1 Each PO DAILY Metoprolol Succinate ( Xl ) (Metoprolol Succinate) 25 Mg Tab.er.24h 25 Mg PO DAILY Lantus Solostar (Insulin Glargine,Hum.rec.anlog) 100 Unit/1 Ml Insuln.pen 30 Unit SQ QHS Ondansetron Hcl 4 Mg Tablet 4 Mg PO Q6HRS PRN Zolpidem Tartrate 5 Mg Tablet 5 Mg PO PRN QHS PRN Famotidine 20 Mg Tablet 20 Mg PO DAILY Xifaxan (Rifaximin) 550 Mg Tablet 1 Tab PO BID Isosorbide Dinitrate 30 Mg Tablet 1 Tab PO DAILY Vitals/I & O Vital Sign - Last 24 Hours 07/17/17 07/17/17 07/17/17 07/17/17 15:14 15:25 19:00 19:56 Temp 98.0 98.1 98.0 98.1 Pulse 61 62 Resp 19 18 B/P (MAP) 113/41 (65) 107/52 (70) Pulse Ox 96 93 95 O2 Delivery Room Air Room Air Room Air Room Air 07/17/17 07/17/17 07/18/17 07/18/17 20:00 23:00 03:00 07:00 Temp 98.1 98.2 97.7 98.1 98.2 97.7 Pulse 104 63 63 Resp 16 16 24 B/P (MAP) 115/56 (75) 106/93 (97) 136/60 (85) Pulse Ox 94 90 98 O2 Delivery Room Air Room Air Room Air Room Air 07/18/17 07/18/17 07/18/17 07/18/17 08:05 08:42 11:00 11:51 Temp 99.1 99.1 Pulse 53 Resp 20 B/P (MAP) 143/53 (83) Pulse Ox 96 98 96 O2 Delivery Room Air Room Air Room Air Room Air 07/18/17 07/18/17 07/18/17 12:55 12:56 12:56 Pulse 63 63 63 B/P (MAP) 143/53 143/53 143/53 Intake and Output 07/17/17 07/17/17 07/18/17 15:00 23:00 07:00 Intake Total 360 ml 350 ml 750 ml Output Total 750 ml Balance 360 ml 350 ml 0 ml LUDWIG MARIE MD Jul 18, 2017 14:46
[2017-07-18 15:00] VITALS: BP 155/54
--- NOTE | 2017-07-18 15:34 | DS ---
DATE OF DISCHARGE: 07/18/2017 CHIEF COMPLAINT: Acute hypoxic respiratory failure. HOSPITAL COURSE: The patient is a 71-year-old woman with a known history of CHF, end-stage renal disease presenting with respiratory failure. This was attributed to CHF exacerbation as well as bronchitis. She was treated with additional ultrafiltration at dialysis as well as antibiotics for her bronchitis. She was noted to have a leukopenia, which was attributed to viral syndrome and resolved prior to discharge. For her end-stage renal disease, she was continued on dialysis. No other acute issues arose and patient was discharged to home on 07/18/2017. PHYSICAL EXAMINATION: VITAL SIGNS: Show blood pressure of 143/53, heart rate of 63, respiratory rate at 20. She is afebrile. GENERAL: Alert and oriented, no acute distress. HEENT: No icterus. LUNGS: Clear. HEART: Regular rate and rhythm. ABDOMEN: Obese, positive bowel sounds. EXTREMITIES: No edema. DISCHARGE DATE: 07/18/2017. DISCHARGE DIAGNOSES: Congestive heart failure exacerbation/fluid overload, bronchitis, end-stage renal disease. DISCHARGE DISPOSITION: To home. DISCHARGE CONDITION: Improved. DISCHARGE MEDICATIONS: Please refer to MAR. DISCHARGE INSTRUCTIONS: The patient will follow up with PCP in 1-2 weeks and with dialysis as previously arranged. CATHERINE GIPSON MD DR: JANEE/nts JOB#: [id number] / [id number] CATHLEEN Shultz
[2017-07-18] MEDS ORDERED: INSULIN DETEMIR 300 UNITS/3 ML INSULN.PEN. SQ SCH (21:00)
[2017-07-19] MEDS ORDERED: DARBEPOETIN ALFA 60 MCG/0.3 ML DISP.SYRIN. SQ SCH (21:00)
== END 2017-07-18 16:46 | disposition home or self-care (01) | DRG 871 ==
LOC: ER 16:30 → 5 SOUTH 18:33
PROVIDERS: ADMIT Internal Medicine; ATTEND Internal Medicine
PROC: 5A1D70Z Performance of Urinary Filtration, Intermittent, Less than 6 Hours Per Day (ICD-10-PCS; principal; 2017-07-16)
DX: A41.9 Sepsis, unspecified organism (principal); J96.01 Acute respiratory failure with hypoxia; I13.2 Hypertensive heart and chronic kidney disease with heart failure and with stage 5 chronic kidney disease, or end stage renal disease; J18.9 Pneumonia, unspecified organism; D69.59 Other secondary thrombocytopenia; E11.22 Type 2 diabetes mellitus with diabetic chronic kidney disease; E11.42 Type 2 diabetes mellitus with diabetic polyneuropathy; K76.6 Portal hypertension; N18.6 End stage renal disease; I50.33 Acute on chronic diastolic (congestive) heart failure; J44.0 Chronic obstructive pulmonary disease with (acute) lower respiratory infection; J44.1 Chronic obstructive pulmonary disease with (acute) exacerbation; R18.8 Other ascites; K72.90 Hepatic failure, unspecified without coma; G60.0 Hereditary motor and sensory neuropathy; D63.1 Anemia in chronic kidney disease; B34.9 Viral infection, unspecified; E03.9 Hypothyroidism, unspecified; E66.9 Obesity, unspecified; E78.00 Pure hypercholesterolemia, unspecified; E78.5 Hyperlipidemia, unspecified; G56.00 Carpal tunnel syndrome, unspecified upper limb; M65.30 Trigger finger, unspecified finger; M19.90 Unspecified osteoarthritis, unspecified site; G56.03 Carpal tunnel syndrome, bilateral upper limbs; F41.9 Anxiety disorder, unspecified; F32.9 Major depressive disorder, single episode, unspecified; K21.9 Gastro-esophageal reflux disease without esophagitis; K74.60 Unspecified cirrhosis of liver; Z79.4 Long term (current) use of insulin; Z82.49 Family history of ischemic heart disease and other diseases of the circulatory system; Z86.73 Personal history of transient ischemic attack (TIA), and cerebral infarction without residual deficits; Z90.710 Acquired absence of both cervix and uterus; Z87.891 Personal history of nicotine dependence; Z99.2 Dependence on renal dialysis; Z98.49 Cataract extraction status, unspecified eye; Z91.09 Other allergy status, other than to drugs and biological substances
CPT/HCPCS: 36415; 71010; 80048; 80069; 82306; 82962; 83605; 83735; 83880; 84484; 85007; 85018; 85025; 87040; 87324; 93005; 94250; 94640; 94760; 96365; 96367; 96375; J0456; J0690; J0696; J0780; J1200; J1815; J2930; J7030; J7042; J7050; J7620; J8597; Q0144; 99285-25

== ENCOUNTER 2018-01-02 18:01 | Emergency (ER) | payer MEDICARE, OTHER ==
[2018-01-02 18:52] LABS: ADD MAN DIFF? NO
[2018-01-02 18:56] LABS: BASO % 0 % (0-3); EOS # 0.1 x10^3/uL (0.0-0.7); EOS % 1 % (0-3); HEMATOCRIT 33.6 % (36.0-47.0); HEMOGLOBIN 11.6 g/dL (12.0-15.5); LYMPH # 0.5 x10^3/uL (1.0-4.8); LYMPH % 8 % (24-48); MEAN CORPUSCULAR HEMOGLOBIN 31 pg (25-35); MEAN CORPUSCULAR HGB CONC 34 g/dL (31-37); MEAN CORPUSCULAR VOLUME 91 fL (79-100); MONO # 0.6 x10^3/uL (0.0-1.1); MONO % 9 % (0-9); NEUT # 5.2 x10^3uL (1.8-7.7); NEUT % 82 % (31-73); PLATELET COUNT 79 x10^3/uL (140-400); RED BLOOD COUNT 3.71 x10^6/uL (3.50-5.40); RED CELL DISTRIBUTION WIDTH 15.2 % (11.5-14.5); WHITE BLOOD COUNT 6.4 x10^3/uL (4.0-11.0)
[2018-01-02 19:11] LABS: ANION GAP 10 (6-14); BLOOD UREA NITROGEN 47 mg/dL (7-20); BUN/CREATININE RATIO 8 (6-20); CARBON DIOXIDE 25 mmol/L (21-32); CHLORIDE 99 mmol/L (98-107); CREATININE 6.1 mg/dL (0.6-1.0); GFR 6.8; GLUCOSE 260 mg/dL (70-99); POTASSIUM 4.5 mmol/L (3.5-5.1); SODIUM 134 mmol/L (136-145)
[2018-01-02 19:17] LABS: ALBUMIN 2.7 g/dL (3.4-5.0); ALBUMIN/GLOBULIN RATIO 0.7 (1.0-1.7); ALK PHOS 87 U/L (46-116); ALT (SGPT) 24 U/L (14-59); AST (SGOT) 22 U/L (15-37); MAGNESIUM 2.2 mg/dL (1.8-2.4); TOTAL BILIRUBIN 1.1 mg/dL (0.2-1.0); TOTAL PROTEIN 6.7 g/dL (6.4-8.2)
[2018-01-02 19:24] LABS: CKMB MASS 1.6 ng/mL (0.0-3.6); CREATINE KINASE 153 U/L (26-192)
[2018-01-02 19:28] LABS: TROPONINI < 0.017 ng/mL (0.000-0.055)
[2018-01-02 19:30] LABS: BILIRUBIN,URINE SMALL (NEG); CLARITY,URINE CLOUDY; COLOR,URINE YELLOW; GLUCOSE,URINE 250 mg/dL (NEG); NITRITE,URINE NEGATIVE (NEG); PROTEIN,URINE 100 mg/dL (NEG-TRACE); UROBILINOGEN,URINE 0.2 mg/dL (0.2 mg/dL)
[2018-01-02 19:43] LABS: BACTERIA,URINE MANY /HPF (0-FEW); SQUAMOUS EPITHELIAL CELL,UR OCC /LPF; WBC,URINE 20-40 /HPF (0-4)
== END 2018-01-02 22:25 | disposition home or self-care (01) ==
LOC: ER 18:01
DX: N39.0 Urinary tract infection, site not specified (principal); R53.83 Other fatigue; E03.9 Hypothyroidism, unspecified; J44.9 Chronic obstructive pulmonary disease, unspecified; E78.00 Pure hypercholesterolemia, unspecified; I13.2 Hypertensive heart and chronic kidney disease with heart failure and with stage 5 chronic kidney disease, or end stage renal disease; E11.22 Type 2 diabetes mellitus with diabetic chronic kidney disease; N18.6 End stage renal disease; I50.9 Heart failure, unspecified; Z99.2 Dependence on renal dialysis; K21.9 Gastro-esophageal reflux disease without esophagitis; E11.40 Type 2 diabetes mellitus with diabetic neuropathy, unspecified; Z86.73 Personal history of transient ischemic attack (TIA), and cerebral infarction without residual deficits; Z90.710 Acquired absence of both cervix and uterus; Z88.8 Allergy status to other drugs, medicaments and biological substances
CPT/HCPCS: 36415; 71045; 80053; 81001; 82553; 83735; 84484; 85025; 93005; 96365; 99285-25; J0690

== ENCOUNTER 2018-10-15 13:24 | Inpatient (IN) | payer MEDICARE, OTHER ==
[~2018-10-15] VITALS: Ht 152.4 cm; Wt 80.9 kg
[~2018-10-15 13:24] MED LIST changes: +CIPR250T30 PO; +CIPR500T94 PO; +DOXY100C14 PO; -HYDR-2758 PO; +HYDR-2761 PO; +INSU100I11 SQ; -IPRA3AMP NEB; +IPRA3AMP29 NEB; +LACT1CAP19 PO; +LOSA100T14 PO; -LOSA100T6 PO; +OMEP20CA10 PO; -OMEP20CA9 PO; +SULF1TAB24 PO
[2018-10-15 14:12] LABS: BASO # 0.1 x10^3/uL (0.0-0.2); BASO % 1 % (0-3); EOS # 0.1 x10^3/uL (0.0-0.7); EOS % 2 % (0-3); HEMATOCRIT 29.9 % (36.0-47.0); LYMPH # 0.5 x10^3/uL (1.0-4.8); LYMPH % 10 % (24-48); MEAN CORPUSCULAR HEMOGLOBIN 31 pg (25-35); MEAN CORPUSCULAR HGB CONC 34 g/dL (31-37); MEAN CORPUSCULAR VOLUME 92 fL (79-100); MONO # 0.8 x10^3/uL (0.0-1.1); MONO % 16 % (0-9); NEUT # 3.5 x10^3uL (1.8-7.7); NEUT % 71 % (31-73); PLATELET COUNT 71 x10^3/uL (140-400); RED BLOOD COUNT 3.24 x10^6/uL (3.50-5.40); RED CELL DISTRIBUTION WIDTH 16.8 % (11.5-14.5); WHITE BLOOD COUNT 4.9 x10^3/uL (4.0-11.0)
[2018-10-15] MEDS: MORPHINE SULFATE 4 MG/ML VIAL. IV/SQ PRN ×2 (14:15→18:50)
[2018-10-15 14:31] LABS: CALCIUM 7.7 mg/dL (8.5-10.1); CREATININE 4.7 mg/dL (0.6-1.0); GFR 9.1; POTASSIUM 3.9 mmol/L (3.5-5.1)
[2018-10-15 14:37] LABS: ALBUMIN 2.2 g/dL (3.4-5.0); ALBUMIN/GLOBULIN RATIO 0.5 (1.0-1.7); C-REACTIVE PROTEIN 55.5 mg/L (0-3.3); MAGNESIUM 1.7 mg/dL (1.8-2.4); TOTAL BILIRUBIN 1.1 mg/dL (0.2-1.0); TOTAL PROTEIN 6.8 g/dL (6.4-8.2)
--- NOTE | 2018-10-15 14:44 | RAD ---
Indication:WEAKNESS, NAUSEA, RT SHOULDER PAIN. NO KNOWN INJURY TECHNIQUE:Portable AP chest X-ray COMPARISON:None FINDINGS: Heart is normal in size. Bilateral prominent bronchovascular markings are seen. No focal consolidation. No pneumothorax or pleural effusion. Visualized bony thorax within normal limits IMPRESSION: Findings of mild interstitial pulmonary edema, atypical/viral infection or chronic interstitial changes. Indication:WEAKNESS, NAUSEA, RT SHOULDER PAIN. NO KNOWN INJURY TECHNIQUE: 3 views of the right shoulder COMPARISON:None FINDINGS/impression:No acute fracture or dislocation. No significant arthritic changes. Electronically signed by: Dale Conde DO (10/15/2018 2:41 PM) [id number]
--- NOTE | 2018-10-15 14:57 | RAD ---
PQRS Compliance statement: One or more of the following individualized dose reduction techniques were utilized for this examination: 1. Automated exposure control. 2. Adjustment of the mA and/or kV according to patient size. 3. Use of iterative reconstruction technique. Indication:ABD PAIN X SEVERAL DAYS, MISSED DIALYSIS YESTERDAY TECHNIQUE: CT abdomen and pelvis without IV contrast with multiplanar reformats. COMPARISON: Previous exam from 02/23/2016 FINDINGS: Limited evaluation of solid abdominal and pelvic organs due to lack of IV contrast. Heart is normal in size. Trace bilateral pleural effusion. Clear lung bases. Nodular contour of the liver with multiple low attenuating lesions in segment IVb, the largest measuring 1 mm, stable from previous exam. Spleen is enlarged measuring 17 cm. Gallstones noted. Noncontrast appearance of the pancreas is within normal limits. Adrenal glands demonstrate no nodularity. Small volume ascites. No nephrolithiasis or hydronephrosis. Diffuse atherosclerotic disease of the abdominal aorta and its major arteries. No bowel obstruction. Midline umbilical hernia is seen containing small amount of ascitic fluid. Diffuse body wall edema. Mildly enlarged bilateral inguinal lymph nodes, nonspecific. No enlarged pelvic or retroperitoneal adenopathy. No pneumoperitoneum. No suspicious bony lesion. Urinary bladder demonstrates no radiopaque stones. Status post hysterectomy. IMPRESSION: Limited evaluation of solid abdominal and pelvic organs due to lack of IV contrast. 1. Cirrhosis with evidence of portal venous hypertension as suggested by splenomegaly and small volume ascites. 2. Cholelithiasis without imaging evidence of acute cholecystitis. Electronically signed by: Dale Conde DO (10/15/2018 2:54 PM) [id number]
[2018-10-15 15:49] LABS: BILIRUBIN,URINE NEGATIVE (NEG); COLOR,URINE YELLOW; NITRITE,URINE NEGATIVE (NEG); PH,URINE 5.5; PROTEIN,URINE 100 mg/dL (NEG-TRACE); UROBILINOGEN,URINE 0.2 mg/dL (0.2 mg/dL)
[2018-10-15 16:07] LABS: BACTERIA,URINE MANY /HPF (0-FEW); CLARITY,URINE HAZY; SQUAMOUS EPITHELIAL CELL,UR MANY /LPF
[2018-10-15 16:08] LABS: WBC,URINE 20-40 /HPF (0-4)
[2018-10-15] MEDS ORDERED: INSULIN REGULAR 100 UNIT/ML 3ML VIAL. IV ONE ×2 (16:45→17:15)
[2018-10-15] MEDS ORDERED: CEPH500T PO (17:34)
--- NOTE | 2018-10-15 17:35 | PHYS DOC ---
Past Medical History Past Medical History: Anxiety, COPD, CVA, Depression, Diabetes-Type II, Hypertension, Hypothyroid, Hepatitis, Liver Disease, Renal Failure, Other Additional Past Medical Histor: CIRRHOSIS Past Surgical History: Hysterectomy Additional Past Surgical Histo: bilat cataracts, L knee, bilat carpal tunnel, R trigger finger, R foot Alcohol Use: None Drug Use: None Adult General Chief Complaint Chief Complaint: MULTIPLE COMPLAINTS HPI HPI Patient is a 73 year old female with history of diabetes type 2, hypertension, high cholesterol, diabetes type 2, end-stage renal disease on dialysis Friday, Friday last dialyzed on Friday, who presents today complaining of 10 out of 10 right shoulder pain and generalized abdominal pain that she states has been going on "for a while". Patient states today she was supposed to have surgery on her right foot for chronic wound. She states she was not able to go to surgery this afternoon but came to the ED to be evaluated for abdominal pain. She also states she's had some nausea vomiting and diarrhea. She states she has history of liver disease as well and chronic abdominal distention from cirrhosis of the liver and is supposed to follow-up with GI doctor. Patient denies any fever. She states she missed dialysis yesterday. Patient denies any chest pain or shortness of breath. Review of Systems Review of Systems Constitutional: Denies fever or chills [] Eyes: Denies change in visual acuity, redness, or eye pain [] HENT: Denies nasal congestion or sore throat [] Respiratory: Denies cough or shortness of breath [] Cardiovascular: No additional information not addressed in HPI [] GI: Reports chronic abdominal pain, nausea and vomiting. Denies any hematemesis or melena : Denies dysuria or hematuria [] Musculoskeletal: Denies back pain or joint pain [] Integument: Denies rash or skin lesions [] Neurologic: Denies headache, focal weakness or sensory changes [] Endocrine: End-stage renal disease on dialysis Friday All other systems were reviewed and found to be within normal limits, except as documented in this note. Current Medications Current Medications Current Medications Medications (Trade) Dose Ordered Sig/Vijay Start Time Stop Time Status Last Admin Dose Admin Insulin Human Regular (HumuLIN R VIAL) 5 unit 1X ONCE 10/15/18 17:15 10/15/18 17:16 DC 10/15/18 17:04 5 UNIT Morphine Sulfate (Morphine Sulfate) 4 mg PRN Q15MIN PRN 10/15/18 14:15 10/16/18 14:14 10/15/18 18:50 4 MG Allergies Allergies Allergies Coded Allergies Type Severity Reaction Last Updated Verified adhesive Allergy Intermediate Rash 10/15/18 Yes Physical Exam Physical Exam Constitutional: Well developed, well nourished, no acute distress, non-toxic appearance. [] HENT: Normocephalic, atraumatic, bilateral external ears normal, oropharynx moist, no oral exudates, nose normal. [] Eyes: PERRLA, EOMI, conjunctiva normal, no discharge. [] Neck: Normal range of motion, no tenderness, supple, no stridor. [] Cardiovascular:Heart rate regular rhythm, no murmur [] Lungs & Thorax: Bilateral breath sounds clear to auscultation [] Abdomen: Chronic on a distended abdomen. Bowel sounds normal, soft, diffuse tenderness throughout, no masses, no pulsatile masses. [] Skin: arc of the right foot with an open wound approximately 3 x 3 cm. The wound appears to be tunneling. No drainage. Neurovascular exam is intact to the foot. Back: No tenderness, no CVA tenderness. [] Extremities: No tenderness, no cyanosis, no clubbing, ROM intact, no edema. [] Neurologic: Alert and oriented X 3, normal motor function, normal sensory function, no focal deficits noted. [] Psychologic: Affect normal, judgement normal, mood normal. [] Current Patient Data Vital Signs Vital Signs Date Time Temp Pulse Resp B/P (MAP) Pulse Ox O2 Delivery O2 Flow Rate FiO2 10/15/18 16:34 81 146/55 (85) 93 Room Air 10/15/18 15:34 20 10/15/18 13:38 98.9 98.9 Lab Values Laboratory Tests Test 10/15/18 13:41 10/15/18 13:50 10/15/18 15:00 10/15/18 15:41 Glucose (Fingerstick) 440 mg/dL (70-99) H White Blood Count 4.9 x10^3/uL (4.0-11.0) Red Blood Count 3.24 x10^6/uL (3.50-5.40) L Hemoglobin 10.0 g/dL (12.0-15.5) L Hematocrit 29.9 % (36.0-47.0) L Mean Corpuscular Volume 92 fL (79-100) Mean Corpuscular Hemoglobin 31 pg (25-35) Mean Corpuscular Hemoglobin Concent 34 g/dL (31-37) Red Cell Distribution Width 16.8 % (11.5-14.5) H Platelet Count 71 x10^3/uL (140-400) L Neutrophils (%) (Auto) 71 % (31-73) Lymphocytes (%) (Auto) 10 % (24-48) L Monocytes (%) (Auto) 16 % (0-9) H Eosinophils (%) (Auto) 2 % (0-3) Basophils (%) (Auto) 1 % (0-3) Neutrophils # (Auto) 3.5 x10^3uL (1.8-7.7) Lymphocytes # (Auto) 0.5 x10^3/uL (1.0-4.8) L Monocytes # (Auto) 0.8 x10^3/uL (0.0-1.1) Eosinophils # (Auto) 0.1 x10^3/uL (0.0-0.7) Basophils # (Auto) 0.1 x10^3/uL (0.0-0.2) Erythrocyte Sedimentation Rate 30 (0-25) H Sodium Level 134 mmol/L (136-145) L Potassium Level 3.9 mmol/L (3.5-5.1) Chloride Level 95 mmol/L (98-107) L Carbon Dioxide Level 26 mmol/L (21-32) Anion Gap 13 (6-14) Blood Urea Nitrogen 23 mg/dL (7-20) H Creatinine 4.7 mg/dL (0.6-1.0) H Estimated GFR (Cockcroft-Gault) 9.1 BUN/Creatinine Ratio 5 (6-20) L Glucose Level 476 mg/dL (70-99) H Lactic Acid Level 2.0 mmol/L (0.4-2.0) Calcium Level 7.7 mg/dL (8.5-10.1) L Magnesium Level 1.7 mg/dL (1.8-2.4) L Total Bilirubin 1.1 mg/dL (0.2-1.0) H Aspartate Amino Transferase (AST) 19 U/L (15-37) Alanine Aminotransferase (ALT) 14 U/L (14-59) Alkaline Phosphatase 110 U/L (46-116) Creatine Kinase 78 U/L (26-192) Creatine Kinase MB (Mass) 1.6 ng/mL (0.0-3.6) Creatine Kinase MB Relative Index 2.1 % (0-4) Troponin I Quantitative 0.017 ng/mL (0.000-0.055) C-Reactive Protein, Quantitative 55.5 mg/L (0-3.3) H CX-Rlp-Q-Type Natriuretic Peptide 56500 pg/mL (0-124) H Total Protein 6.8 g/dL (6.4-8.2) Albumin 2.2 g/dL (3.4-5.0) L Albumin/Globulin Ratio 0.5 (1.0-1.7) L Ammonia 47 mcmol/L (11-34) H Urine Collection Type Unknown Urine Color Yellow Urine Clarity Hazy Urine pH 5.5 Urine Specific [place] 1.020 Urine Protein 100 mg/dL (NEG-TRACE) Urine Glucose (UA) >=1000 mg/dL (NEG) Urine Ketones (Stick) Negative mg/dL (NEG) Urine Blood Large (NEG) Urine Nitrite Negative (NEG) Urine Bilirubin Negative (NEG) Urine Urobilinogen Dipstick 0.2 mg/dL (0.2 mg/dL) Urine Leukocyte Esterase Moderate (NEG) Urine RBC 3-5 /HPF (0-2) Urine WBC 20-40 /HPF (0-4) Urine Squamous Epithelial Cells Many /LPF Urine Bacteria Many /HPF (0-FEW) Laboratory Tests 10/15/18 13:50 Laboratory Tests 10/15/18 13:50 EKG EKG [address] Yeboah sinus rhythm HR 90 no STEMI[] Radiology/Procedures Radiology/Procedures [] Course & Med Decision Making Course & Med Decision Making Pertinent Labs and Imaging studies reviewed. (See chart for details) This is a 73-year-old female patient on end-stage renal disease, liver cirrhosis , presenting to the ED today complaining of abdominal pain and right shoulder pain for what sounds as a long time. There is nothing acute on her workup. Urine shows some infection. Offered patient admission, patient started complaining stating none of her family members came to see her in the hospital/ emergency room. She states she just wants to go home. Gave her prescription for cephalexin. She will follow-up with her own doctors tomorrow. Family returns and grand daughter on the phone requesting she gets admitted. consulted with Dr. Cuellar who accepted patient for admission. Dragon Disclaimer Dragon Disclaimer This electronic medical record was generated, in whole or in part, using a voice recognition dictation system. Departure Departure Impression: Primary Impression: UTI (urinary tract infection) Additional Impressions: Cirrhosis of liver with ascites Open wound of right foot Hyperglycemia Disposition: ADMITTED INPATIENT Condition: STABLE Referrals: ADDIS ANGEL (PCP) follow up in 1 days Patient Instructions: Abdominal Pain, Urinary Tract Infection Additional Instructions: You were evaluated in the emergency room, we put you on antibiotics, ensure you complete them. Continue following up with the GI doctor as well as a dialysis outpatient center and primary care doctor. Please come back to the ED at any point symptoms worsen. Scripts Ondansetron Hcl (ZOFRAN) 4 Mg Tablet 1 TAB PO Q6HRS, #20 TAB Prov: VANIA CASAREZ APRN 10/15/18 Cephalexin (CEPHALEXIN) 500 Mg Tablet 1 TAB PO BID, #14 TAB Prov: VANIA CASAREZ APRN 10/15/18 Problem Qualifiers Primary Impression: UTI (urinary tract infection) Urinary tract infection type: site unspecified Hematuria presence: without hematuria Qualified Codes: N39.0 - Urinary tract infection, site not specified Additional Impressions: Cirrhosis of liver with ascites Hepatic cirrhosis type: unspecified hepatic cirrhosis Qualified Codes: K74.60 - Unspecified cirrhosis of liver; R18.8 - Other ascites Open wound of right foot Encounter type: initial encounter Qualified Codes: S91.301A - Unspecified open wound, right foot, initial encounter VANIA CASAREZ APRN Oct 15, 2018 17:35
[2018-10-15] MEDS ORDERED: ONDA4TAB7 PO (17:38)
[2018-10-15] MEDS ORDERED: MORPHINE SULFATE 4 MG/ML VIAL. IV PRN (19:15)
[2018-10-15] MEDS ORDERED: DEXTROSE 50% 25 GM / 50ML DISP.SYRIN. IV PRN (19:15)
[2018-10-15] MEDS ORDERED: ONDANSETRON PF 4 MG/2 ML VIAL. IV PRN (19:15)
[2018-10-15] MEDS ORDERED: cefTRIAXone IV Push 1 GM VIAL. IVP SCH (20:00)
--- NOTE | 2018-10-15 20:44 | PDOC1 ---
History and Physical Date of Admission Date of Admission DATE: 10/15/18 TIME: 20:44 Source Source: Chart review, Patient History of Present Illness History of Present Illness Ms. Douglass is a 73 year old female with severe right shoulder pain and abdominal pain. Her pain to her abdomen fluctuates, worse today, no quigley ein stool, Also 10/10 right shoulder pain, she can barely move the arm due to pain. she was last dialyzed on Friday, and abd pain had fluctated in the past few days. seen earlier today in the ER, tried to DC home, Past Medical History Cardiovascular: CHF, HTN, Hyperlipidemia Pulmonary: COPD, Pneumonia, Other CENTRAL NERVOUS SYSTEM: CVA, Periperal neuropathy GI: GERD Heme/Onc: Anemia NOS Hepatobiliary: Cirrhosis Psych: Anxiety, Depression Musculoskeletal: Osteoarthritis Rheumatologic: No pertinent hx Infectious disease: No pertinent hx Renal/: Chronic renal failure, UTI Endocrine: Diabetes, Hypothyroidism Past Surgical History Past Surgical History: Hysterectomy Family History Family History: Diabetes Social History Smoke: No ALCOHOL: none Drugs: None Current Problem List Problem List Problems Medical Problems: (1) Cirrhosis of liver with ascites Status: Acute (2) Hyperglycemia Status: Acute (3) Open wound of right foot Status: Acute (4) UTI (urinary tract infection) Status: Acute Current Medications Current Medications Current Medications Morphine Sulfate (Morphine Sulfate) 4 mg PRN Q15MIN PRN IV/SQ PAIN GREATER THAN 3/10 Last administered on 10/15/18at 18:50; Start 10/15/18 at 14:15; Stop at 14:14 Insulin Human Regular (HumuLIN R VIAL) 10 unit 1X ONCE IV ; Start 10/15/18 at 16:45; Stop 10/15/18 at 16:46; Status Cancel Insulin Human Regular (HumuLIN R VIAL) 5 unit 1X ONCE IV Last administered on 10/15/18at 17:04; Start 10/15/18 at 17:15; Stop 10/15/18 at 17:16; Status DC Ondansetron HCl (Zofran) 4 mg PRN Q8HRS PRN IV NAUSEA/VOMITING; Start 10/15/18 at 19:15; Stop 10/16/18 at 19:14 Morphine Sulfate (Morphine Sulfate) 4 mg PRN Q2HR PRN IV PAIN; Start 10/15/18 at 19:15; Stop 10/16/18 at 19:14 Insulin Human Lispro (HumaLOG) 0-7 UNITS TIDWMEALS SQ ; Start 10/16/18 at 08:00 Dextrose (Dextrose 50%-Water Syringe) 12.5 gm PRN Q15MIN PRN IV SEE COMMENTS; Start 10/15/18 at 19:15 Ceftriaxone Sodium (Rocephin) 1 gm Q24H IVP ; Start 10/15/18 at 20:00 Active Scripts Active Zofran (Ondansetron Hcl) 4 Mg Tablet 1 Tab PO Q6HRS Cephalexin 500 Mg Tablet 1 Tab PO BID Humalog (Insulin Lispro) 100 Unit/1 Ml Insuln.pen 5 Units SQ TIDWMEALS 28 Days Culturelle (Lactobacillus Rhamnosus Gg) 1 Each Cap.sprink 1 Cap PO BID 28 Days Lantus Solostar (Insulin Glargine,Hum.rec.anlog) 100 Unit/1 Ml Insuln.pen 15 Units SQ DAILY 28 Days Cipro (Ciprofloxacin Hcl) 250 Mg Tablet 250 Mg PO DAILY 10 Days Lactulose 20 Gm/30 Ml Solution 10 Gm PO PRN TID PRN 10 Days Aspirin Ec (Aspirin) 325 Mg Tablet.dr 325 Mg PO DAILYWBKFT 30 Days Reported Vitamin D (Cholecalciferol (Vitamin D3)) 50,000 Unit Capsule 50,000 Unit PO DAILY Tizanidine Hcl 2 Mg Capsule 2 Mg PO BID PRN Meclizine Hcl 25 Mg Tablet 1 Tab PO TID Voltaren (Diclofenac Sodium) 100 Gm Gel..gram. 1 Gm TP BID Hydrocodone-Apap 5-325 (Hydrocodone Bit/Acetaminophen) 1 Each Tablet 2 Tab PO PRN Q6HRS PRN Clonidine Hcl 0.2 Mg Tablet 0.2 Mg PO DAILY Gabapentin (Gabapentin) 100 Mg Capsule 100 Mg PO DAILY Zoloft (Sertraline Hcl) 50 Mg Tablet 75 Mg PO DAILY Renvela (Sevelamer Carbonate) 800 Mg Tablet 1 Tab PO TIDWMEALS Levothyroxine Sodium 175 Mcg Tablet 125 Mcg PO DAILYAC Dialyvite Luxora D Tablet (Multivitamin, Min Cmb#25/Fa/D3) 1 Each Tablet 1 Each PO DAILY Metoprolol Succinate ( Xl ) (Metoprolol Succinate) 25 Mg Tab.er.24h 25 Mg PO DAILY Ondansetron Hcl 4 Mg Tablet 4 Mg PO Q6HRS PRN Zolpidem Tartrate 5 Mg Tablet 5 Mg PO PRN QHS PRN Famotidine 20 Mg Tablet 20 Mg PO DAILY Xifaxan (Rifaximin) 550 Mg Tablet 1 Tab PO BID Isosorbide Dinitrate 30 Mg Tablet 1 Tab PO DAILY Allergies Allergies: Coded Allergies: adhesive (Verified Allergy, Intermediate, Rash, 10/15/18) TAPE ROS General: YES: Chills, Fatigue, Malaise PSYCHOLOGICAL ROS: YES: Sleep disturbances; No: Anxiety, Behavioral Disorder, Concentration difficultie, Decreased libido , Depression, Disorientation, Hallucinations, Hostility, Irritablity, Memory difficulties, Mood Swings, Obsessive thoughts, Other Eyes: No Blurry vision, No Decreased vision, No Double vision, No Dry eyes, No Excessive tearing, No Eye Pain, No Itchy Eyes, No Loss of vision, No Photophobia , No Scotomata, No Uses contacts, No Uses glasses, No Other HEENT: No: Heacaches, Visual Changes, Hearing change, Nasal congestion, Nasal discharge, Oral lesions, Sinus pain, Sore Throat, Epistaxis, Sneezing, Snoring, Tinnitus, Vertigo, Vocal changes, Other Respiratory: No: Cough, Hemoptysis, Orthopnea, Pleuritic Pain, Shortness of breath, SOB with excertion, Sputum Changes, Stridor, Tachypnea, Wheezing, Other Cardiovascular: No Chest Pain, No Palpitations, No Orthopnea, No Paroxysmal Noc. Dyspnea, No Edema, No Lt Headedness, No Other Gastrointestinal: Yes Nausea, Yes Abdominal Pain Genitourinary: No Dysuria, No Frequency, No Incontinence, No Hematuria, No Retention, No Discharge, No Urgency, No Pain, No Flank Pain, No Other, No , No , No , No , No , No , No Musculoskeletal: Yes Joint Pain, Yes Joint Stiffness, Yes Muscle Pain, Yes Muscular Weakness (right shoulder) Neurological: No Behavorial Changes, No Bowel/Bladder ControlChng, No Confusion , No Dizziness, No Gait Disturbance, No Headaches, No Impaired Coord/balance, No Memory Loss, No Numbness/Tingling, No Seizures, No Speech Problems, No Tremors, No Visual Changes, No Weakness, No Other Skin: Yes Dry Skin; No Eczema, No Hair Changes, No Lumps, No Mole Changes, No Mottling, No Nail Changes, No Pruritus, No Rash, No Skin Lesion Changes, No Other, No Acne Physical Exam General: Alert, Oriented X3, Cooperative, moderate distress HEENT: Atraumatic, PERRLA, Other Lungs: Clear to auscultation, Normal air movement Abdomen: Soft (tender, diffuse right to mid-epigastrum. large ventral hernia , obese, ) Extremities: No cyanosis, Other (redness, and swelling to bilat feet, wound to right foot in bandaged) Skin: No rashes, No significant lesion Neuro: Normal speech, Normal tone, Cranial nerves 3-12 NL Psych/Mental Status: Mood NL Vitals Vitals Vital Signs Date Time Temp Pulse Resp B/P (MAP) Pulse Ox O2 Delivery O2 Flow Rate FiO2 10/15/18 20:04 71 18 131/60 (83) 100 Room Air 10/15/18 13:38 98.9 98.9 Labs Labs Laboratory Tests Test 10/15/18 13:41 10/15/18 13:50 10/15/18 15:00 10/15/18 15:41 Glucose (Fingerstick) 440 mg/dL (70-99) White Blood Count 4.9 x10^3/uL (4.0-11.0) Red Blood Count 3.24 x10^6/uL (3.50-5.40) Hemoglobin 10.0 g/dL (12.0-15.5) Hematocrit 29.9 % (36.0-47.0) Mean Corpuscular Volume 92 fL (79-100) Mean Corpuscular Hemoglobin 31 pg (25-35) Mean Corpuscular Hemoglobin Concent 34 g/dL (31-37) Red Cell Distribution Width 16.8 % (11.5-14.5) Platelet Count 71 x10^3/uL (140-400) Neutrophils (%) (Auto) 71 % (31-73) Lymphocytes (%) (Auto) 10 % (24-48) Monocytes (%) (Auto) 16 % (0-9) Eosinophils (%) (Auto) 2 % (0-3) Basophils (%) (Auto) 1 % (0-3) Neutrophils # (Auto) 3.5 x10^3uL (1.8-7.7) Lymphocytes # (Auto) 0.5 x10^3/uL (1.0-4.8) Monocytes # (Auto) 0.8 x10^3/uL (0.0-1.1) Eosinophils # (Auto) 0.1 x10^3/uL (0.0-0.7) Basophils # (Auto) 0.1 x10^3/uL (0.0-0.2) Erythrocyte Sedimentation Rate 30 (0-25) Sodium Level 134 mmol/L (136-145) Potassium Level 3.9 mmol/L (3.5-5.1) Chloride Level 95 mmol/L (98-107) Carbon Dioxide Level 26 mmol/L (21-32) Anion Gap 13 (6-14) Blood Urea Nitrogen 23 mg/dL (7-20) Creatinine 4.7 mg/dL (0.6-1.0) Estimated GFR (Cockcroft-Gault) 9.1 BUN/Creatinine Ratio 5 (6-20) Glucose Level 476 mg/dL (70-99) Lactic Acid Level 2.0 mmol/L (0.4-2.0) Calcium Level 7.7 mg/dL (8.5-10.1) Magnesium Level 1.7 mg/dL (1.8-2.4) Total Bilirubin 1.1 mg/dL (0.2-1.0) Aspartate Amino Transf (AST/SGOT) 19 U/L (15-37) Alanine Aminotransferase (ALT/SGPT) 14 U/L (14-59) Alkaline Phosphatase 110 U/L (46-116) Creatine Kinase 78 U/L (26-192) Creatine Kinase MB (Mass) 1.6 ng/mL (0.0-3.6) Creatine Kinase MB Relative Index 2.1 % (0-4) Troponin I Quantitative 0.017 ng/mL (0.000-0.055) C-Reactive Protein, Quantitative 55.5 mg/L (0-3.3) FV-Jsn-V-Type Natriuretic Peptide 61677 pg/mL (0-124) Total Protein 6.8 g/dL (6.4-8.2) Albumin 2.2 g/dL (3.4-5.0) Albumin/Globulin Ratio 0.5 (1.0-1.7) Ammonia 47 mcmol/L (11-34) Urine Collection Type Unknown Urine Color Yellow Urine Clarity Hazy Urine pH 5.5 Urine Specific [place] 1.020 Urine Protein 100 mg/dL (NEG-TRACE) Urine Glucose (UA) >=1000 mg/dL (NEG) Urine Ketones (Stick) Negative mg/dL (NEG) Urine Blood Large (NEG) Urine Nitrite Negative (NEG) Urine Bilirubin Negative (NEG) Urine Urobilinogen Dipstick 0.2 mg/dL (0.2 mg/dL) Urine Leukocyte Esterase Moderate (NEG) Urine RBC 3-5 /HPF (0-2) Urine WBC 20-40 /HPF (0-4) Urine Squamous Epithelial Cells Many /LPF Urine Bacteria Many /HPF (0-FEW) Laboratory Tests Test 10/15/18 13:41 10/15/18 13:50 10/15/18 15:00 10/15/18 15:41 Glucose (Fingerstick) 440 mg/dL (70-99) White Blood Count 4.9 x10^3/uL (4.0-11.0) Red Blood Count 3.24 x10^6/uL (3.50-5.40) Hemoglobin 10.0 g/dL (12.0-15.5) Hematocrit 29.9 % (36.0-47.0) Mean Corpuscular Volume 92 fL (79-100) Mean Corpuscular Hemoglobin 31 pg (25-35) Mean Corpuscular Hemoglobin Concent 34 g/dL (31-37) Red Cell Distribution Width 16.8 % (11.5-14.5) Platelet Count 71 x10^3/uL (140-400) Neutrophils (%) (Auto) 71 % (31-73) Lymphocytes (%) (Auto) 10 % (24-48) Monocytes (%) (Auto) 16 % (0-9) Eosinophils (%) (Auto) 2 % (0-3) Basophils (%) (Auto) 1 % (0-3) Neutrophils # (Auto) 3.5 x10^3uL (1.8-7.7) Lymphocytes # (Auto) 0.5 x10^3/uL (1.0-4.8) Monocytes # (Auto) 0.8 x10^3/uL (0.0-1.1) Eosinophils # (Auto) 0.1 x10^3/uL (0.0-0.7) Basophils # (Auto) 0.1 x10^3/uL (0.0-0.2) Erythrocyte Sedimentation Rate 30 (0-25) Sodium Level 134 mmol/L (136-145) Potassium Level 3.9 mmol/L (3.5-5.1) Chloride Level 95 mmol/L (98-107) Carbon Dioxide Level 26 mmol/L (21-32) Anion Gap 13 (6-14) Blood Urea Nitrogen 23 mg/dL (7-20) Creatinine 4.7 mg/dL (0.6-1.0) Estimated GFR (Cockcroft-Gault) 9.1 BUN/Creatinine Ratio 5 (6-20) Glucose Level 476 mg/dL (70-99) Lactic Acid Level 2.0 mmol/L (0.4-2.0) Calcium Level 7.7 mg/dL (8.5-10.1) Magnesium Level 1.7 mg/dL (1.8-2.4) Total Bilirubin 1.1 mg/dL (0.2-1.0) Aspartate Amino Transf (AST/SGOT) 19 U/L (15-37) Alanine Aminotransferase (ALT/SGPT) 14 U/L (14-59) Alkaline Phosphatase 110 U/L (46-116) Creatine Kinase 78 U/L (26-192) Creatine Kinase MB (Mass) 1.6 ng/mL (0.0-3.6) Creatine Kinase MB Relative Index 2.1 % (0-4) Troponin I Quantitative 0.017 ng/mL (0.000-0.055) C-Reactive Protein, Quantitative 55.5 mg/L (0-3.3) GU-Lii-U-Type Natriuretic Peptide 49946 pg/mL (0-124) Total Protein 6.8 g/dL (6.4-8.2) Albumin 2.2 g/dL (3.4-5.0) Albumin/Globulin Ratio 0.5 (1.0-1.7) Ammonia 47 mcmol/L (11-34) Urine Collection Type Unknown Urine Color Yellow Urine Clarity Hazy Urine pH 5.5 Urine Specific [place] 1.020 Urine Protein 100 mg/dL (NEG-TRACE) Urine Glucose (UA) >=1000 mg/dL (NEG) Urine Ketones (Stick) Negative mg/dL (NEG) Urine Blood Large (NEG) Urine Nitrite Negative (NEG) Urine Bilirubin Negative (NEG) Urine Urobilinogen Dipstick 0.2 mg/dL (0.2 mg/dL) Urine Leukocyte Esterase Moderate (NEG) Urine RBC 3-5 /HPF (0-2) Urine WBC 20-40 /HPF (0-4) Urine Squamous Epithelial Cells Many /LPF Urine Bacteria Many /HPF (0-FEW) VTE Prophylaxis Ordered VTE Prophylaxis Devices: No VTE Pharmacological Prophylaxi: Yes Assessment/Plan Assessment/Plan sepsis cellulitis foot weakness and debility, acquired acute on chroinc abdominal pain, has seen Dr. Zabala before unsure if some coliits right shoulder pain, bicep tendon tender to palpation, poor ROM, consult ortho foot wound in [facility], she has seen Dr. Teresa previously, will consult vascular, obese, BMI 31, severe malnutrition, alb 2.2, in [facility] ESRD, on HD, T,R,ROB Haddad MD Oct 15, 2018 20:44
[2018-10-15 20:55] VITALS: BP 128/42
[2018-10-15] MEDS ORDERED: CALC667T4 PO ×2 (21:05→21:07)
[2018-10-15] MEDS ORDERED: ZOLPIDEM 5 MG TABLET. PO PRN (22:15)
[2018-10-15 23:00] VITALS: BP 118/75
[2018-10-16 03:00] VITALS: BP 126/63
[2018-10-16 04:50] LABS: BASO # 0.1 x10^3/uL (0.0-0.2); BASO % 1 % (0-3); EOS # 0.2 x10^3/uL (0.0-0.7); EOS % 3 % (0-3); HEMATOCRIT 30.9 % (36.0-47.0); HEMOGLOBIN 10.3 g/dL (12.0-15.5); LYMPH # 0.7 x10^3/uL (1.0-4.8); LYMPH % 11 % (24-48); MEAN CORPUSCULAR HEMOGLOBIN 31 pg (25-35); MEAN CORPUSCULAR HGB CONC 34 g/dL (31-37); MEAN CORPUSCULAR VOLUME 92 fL (79-100); MONO % 15 % (0-9); NEUT # 4.8 x10^3uL (1.8-7.7); NEUT % 71 % (31-73); PLATELET COUNT 84 x10^3/uL (140-400); RED BLOOD COUNT 3.37 x10^6/uL (3.50-5.40); RED CELL DISTRIBUTION WIDTH 16.7 % (11.5-14.5); WHITE BLOOD COUNT 6.8 x10^3/uL (4.0-11.0)
[2018-10-16 06:01] LABS: ALBUMIN 2.2 g/dL (3.4-5.0); ALBUMIN/GLOBULIN RATIO 0.4 (1.0-1.7); CALCIUM 7.9 mg/dL (8.5-10.1); GFR 8.5; POTASSIUM 3.9 mmol/L (3.5-5.1); TOTAL BILIRUBIN 1.2 mg/dL (0.2-1.0); TOTAL PROTEIN 7.4 g/dL (6.4-8.2)
[2018-10-16 07:00] VITALS: BP 157/47
--- NOTE | 2018-10-16 08:21 | PDOC ---
PROGRESS NOTES Chief Complaint Chief Complaint Cirrhosis Foot ulcer ESRD on HD DM2 History of Present Illness History of Present Illness Ms. Douglass is a 73 year old female with severe right shoulder pain and abdominal pain. Her pain to her abdomen fluctuates, worse today, no quigley in stool, Also 10/10 right shoulder pain, she can barely move the arm due to pain. she was last dialyzed on Friday, and abd pain had fluctated in the past few days. seen earlier today in the ER, tried to DC home Right foot very painful today. No BM. Abdomen swelling. Plan: Consult vascular surgery - EBONY of right leg GI to see for cirrhosis Nephro to see for ESRD ID for history of MDRO infection - pseudomonas last month Vitals Vitals Vital Signs Date Time Temp Pulse Resp B/P (MAP) Pulse Ox O2 Delivery O2 Flow Rate FiO2 10/16/18 07:00 97.7 84 18 157/47 (83) 92 Room Air 97.7 Physical Exam General: Alert, Oriented X3, Cooperative, moderate distress Lungs: Clear Abdomen: Soft (tender, diffuse right to mid-epigastrum. large ventral hernia , obese, ) Extremities: No cyanosis, Other (redness, and swelling to bilat feet, wound to right foot in bandaged) Skin: No rashes, No significant lesion Labs LABS Laboratory Tests Test 10/15/18 13:41 10/15/18 13:50 10/15/18 15:00 10/15/18 15:41 Glucose (Fingerstick) 440 mg/dL (70-99) White Blood Count 4.9 x10^3/uL (4.0-11.0) Red Blood Count 3.24 x10^6/uL (3.50-5.40) Hemoglobin 10.0 g/dL (12.0-15.5) Hematocrit 29.9 % (36.0-47.0) Mean Corpuscular Volume 92 fL (79-100) Mean Corpuscular Hemoglobin 31 pg (25-35) Mean Corpuscular Hemoglobin Concent 34 g/dL (31-37) Red Cell Distribution Width 16.8 % (11.5-14.5) Platelet Count 71 x10^3/uL (140-400) Neutrophils (%) (Auto) 71 % (31-73) Lymphocytes (%) (Auto) 10 % (24-48) Monocytes (%) (Auto) 16 % (0-9) Eosinophils (%) (Auto) 2 % (0-3) Basophils (%) (Auto) 1 % (0-3) Neutrophils # (Auto) 3.5 x10^3uL (1.8-7.7) Lymphocytes # (Auto) 0.5 x10^3/uL (1.0-4.8) Monocytes # (Auto) 0.8 x10^3/uL (0.0-1.1) Eosinophils # (Auto) 0.1 x10^3/uL (0.0-0.7) Basophils # (Auto) 0.1 x10^3/uL (0.0-0.2) Erythrocyte Sedimentation Rate 30 (0-25) Sodium Level 134 mmol/L (136-145) Potassium Level 3.9 mmol/L (3.5-5.1) Chloride Level 95 mmol/L (98-107) Carbon Dioxide Level 26 mmol/L (21-32) Anion Gap 13 (6-14) Blood Urea Nitrogen 23 mg/dL (7-20) Creatinine 4.7 mg/dL (0.6-1.0) Estimated GFR (Cockcroft-Gault) 9.1 BUN/Creatinine Ratio 5 (6-20) Glucose Level 476 mg/dL (70-99) Lactic Acid Level 2.0 mmol/L (0.4-2.0) Calcium Level 7.7 mg/dL (8.5-10.1) Magnesium Level 1.7 mg/dL (1.8-2.4) Total Bilirubin 1.1 mg/dL (0.2-1.0) Aspartate Amino Transf (AST/SGOT) 19 U/L (15-37) Alanine Aminotransferase (ALT/SGPT) 14 U/L (14-59) Alkaline Phosphatase 110 U/L (46-116) Creatine Kinase 78 U/L (26-192) Creatine Kinase MB (Mass) 1.6 ng/mL (0.0-3.6) Creatine Kinase MB Relative Index 2.1 % (0-4) Troponin I Quantitative 0.017 ng/mL (0.000-0.055) C-Reactive Protein, Quantitative 55.5 mg/L (0-3.3) KM-Rpg-I-Type Natriuretic Peptide 36580 pg/mL (0-124) Total Protein 6.8 g/dL (6.4-8.2) Albumin 2.2 g/dL (3.4-5.0) Albumin/Globulin Ratio 0.5 (1.0-1.7) Ammonia 47 mcmol/L (11-34) Urine Collection Type Unknown Urine Color Yellow Urine Clarity Hazy Urine pH 5.5 Urine Specific [place] 1.020 Urine Protein 100 mg/dL (NEG-TRACE) Urine Glucose (UA) >=1000 mg/dL (NEG) Urine Ketones (Stick) Negative mg/dL (NEG) Urine Blood Large (NEG) Urine Nitrite Negative (NEG) Urine Bilirubin Negative (NEG) Urine Urobilinogen Dipstick 0.2 mg/dL (0.2 mg/dL) Urine Leukocyte Esterase Moderate (NEG) Urine RBC 3-5 /HPF (0-2) Urine WBC 20-40 /HPF (0-4) Urine Squamous Epithelial Cells Many /LPF Urine Bacteria Many /HPF (0-FEW) Test 10/16/18 04:10 10/16/18 08:03 White Blood Count 6.8 x10^3/uL (4.0-11.0) Red Blood Count 3.37 x10^6/uL (3.50-5.40) Hemoglobin 10.3 g/dL (12.0-15.5) Hematocrit 30.9 % (36.0-47.0) Mean Corpuscular Volume 92 fL (79-100) Mean Corpuscular Hemoglobin 31 pg (25-35) Mean Corpuscular Hemoglobin Concent 34 g/dL (31-37) Red Cell Distribution Width 16.7 % (11.5-14.5) Platelet Count 84 x10^3/uL (140-400) Neutrophils (%) (Auto) 71 % (31-73) Lymphocytes (%) (Auto) 11 % (24-48) Monocytes (%) (Auto) 15 % (0-9) Eosinophils (%) (Auto) 3 % (0-3) Basophils (%) (Auto) 1 % (0-3) Neutrophils # (Auto) 4.8 x10^3uL (1.8-7.7) Lymphocytes # (Auto) 0.7 x10^3/uL (1.0-4.8) Monocytes # (Auto) 1.0 x10^3/uL (0.0-1.1) Eosinophils # (Auto) 0.2 x10^3/uL (0.0-0.7) Basophils # (Auto) 0.1 x10^3/uL (0.0-0.2) Sodium Level 133 mmol/L (136-145) Potassium Level 3.9 mmol/L (3.5-5.1) Chloride Level 96 mmol/L (98-107) Carbon Dioxide Level 24 mmol/L (21-32) Anion Gap 13 (6-14) Blood Urea Nitrogen 26 mg/dL (7-20) Creatinine 5.0 mg/dL (0.6-1.0) Estimated GFR (Cockcroft-Gault) 8.5 BUN/Creatinine Ratio 5 (6-20) Glucose Level 336 mg/dL (70-99) Calcium Level 7.9 mg/dL (8.5-10.1) Total Bilirubin 1.2 mg/dL (0.2-1.0) Aspartate Amino Transf (AST/SGOT) 17 U/L (15-37) Alanine Aminotransferase (ALT/SGPT) 14 U/L (14-59) Alkaline Phosphatase 101 U/L (46-116) Total Protein 7.4 g/dL (6.4-8.2) Albumin 2.2 g/dL (3.4-5.0) Albumin/Globulin Ratio 0.4 (1.0-1.7) Glucose (Fingerstick) 324 mg/dL (70-99) Assessment and Plan Assessmemt and Plan Problems Medical Problems: (1) Cirrhosis of liver with ascites Status: Acute (2) Hyperglycemia Status: Acute (3) Open wound of right foot Status: Acute (4) UTI (urinary tract infection) Status: Acute Comment Review of Relevant I have reviewed the following items karyn (where applicable) has been applied. Labs Laboratory Tests Test 10/15/18 13:41 10/15/18 13:50 10/15/18 15:00 10/15/18 15:41 Glucose (Fingerstick) 440 mg/dL (70-99) White Blood Count 4.9 x10^3/uL (4.0-11.0) Red Blood Count 3.24 x10^6/uL (3.50-5.40) Hemoglobin 10.0 g/dL (12.0-15.5) Hematocrit 29.9 % (36.0-47.0) Mean Corpuscular Volume 92 fL (79-100) Mean Corpuscular Hemoglobin 31 pg (25-35) Mean Corpuscular Hemoglobin Concent 34 g/dL (31-37) Red Cell Distribution Width 16.8 % (11.5-14.5) Platelet Count 71 x10^3/uL (140-400) Neutrophils (%) (Auto) 71 % (31-73) Lymphocytes (%) (Auto) 10 % (24-48) Monocytes (%) (Auto) 16 % (0-9) Eosinophils (%) (Auto) 2 % (0-3) Basophils (%) (Auto) 1 % (0-3) Neutrophils # (Auto) 3.5 x10^3uL (1.8-7.7) Lymphocytes # (Auto) 0.5 x10^3/uL (1.0-4.8) Monocytes # (Auto) 0.8 x10^3/uL (0.0-1.1) Eosinophils # (Auto) 0.1 x10^3/uL (0.0-0.7) Basophils # (Auto) 0.1 x10^3/uL (0.0-0.2) Erythrocyte Sedimentation Rate 30 (0-25) Sodium Level 134 mmol/L (136-145) Potassium Level 3.9 mmol/L (3.5-5.1) Chloride Level 95 mmol/L (98-107) Carbon Dioxide Level 26 mmol/L (21-32) Anion Gap 13 (6-14) Blood Urea Nitrogen 23 mg/dL (7-20) Creatinine 4.7 mg/dL (0.6-1.0) Estimated GFR (Cockcroft-Gault) 9.1 BUN/Creatinine Ratio 5 (6-20) Glucose Level 476 mg/dL (70-99) Lactic Acid Level 2.0 mmol/L (0.4-2.0) Calcium Level 7.7 mg/dL (8.5-10.1) Magnesium Level 1.7 mg/dL (1.8-2.4) Total Bilirubin 1.1 mg/dL (0.2-1.0) Aspartate Amino Transf (AST/SGOT) 19 U/L (15-37) Alanine Aminotransferase (ALT/SGPT) 14 U/L (14-59) Alkaline Phosphatase 110 U/L (46-116) Creatine Kinase 78 U/L (26-192) Creatine Kinase MB (Mass) 1.6 ng/mL (0.0-3.6) Creatine Kinase MB Relative Index 2.1 % (0-4) Troponin I Quantitative 0.017 ng/mL (0.000-0.055) C-Reactive Protein, Quantitative 55.5 mg/L (0-3.3) QK-Azq-W-Type Natriuretic Peptide 82967 pg/mL (0-124) Total Protein 6.8 g/dL (6.4-8.2) Albumin 2.2 g/dL (3.4-5.0) Albumin/Globulin Ratio 0.5 (1.0-1.7) Ammonia 47 mcmol/L (11-34) Urine Collection Type Unknown Urine Color Yellow Urine Clarity Hazy Urine pH 5.5 Urine Specific [place] 1.020 Urine Protein 100 mg/dL (NEG-TRACE) Urine Glucose (UA) >=1000 mg/dL (NEG) Urine Ketones (Stick) Negative mg/dL (NEG) Urine Blood Large (NEG) Urine Nitrite Negative (NEG) Urine Bilirubin Negative (NEG) Urine Urobilinogen Dipstick 0.2 mg/dL (0.2 mg/dL) Urine Leukocyte Esterase Moderate (NEG) Urine RBC 3-5 /HPF (0-2) Urine WBC 20-40 /HPF (0-4) Urine Squamous Epithelial Cells Many /LPF Urine Bacteria Many /HPF (0-FEW) Test 10/16/18 04:10 10/16/18 08:03 White Blood Count 6.8 x10^3/uL (4.0-11.0) Red Blood Count 3.37 x10^6/uL (3.50-5.40) Hemoglobin 10.3 g/dL (12.0-15.5) Hematocrit 30.9 % (36.0-47.0) Mean Corpuscular Volume 92 fL (79-100) Mean Corpuscular Hemoglobin 31 pg (25-35) Mean Corpuscular Hemoglobin Concent 34 g/dL (31-37) Red Cell Distribution Width 16.7 % (11.5-14.5) Platelet Count 84 x10^3/uL (140-400) Neutrophils (%) (Auto) 71 % (31-73) Lymphocytes (%) (Auto) 11 % (24-48) Monocytes (%) (Auto) 15 % (0-9) Eosinophils (%) (Auto) 3 % (0-3) Basophils (%) (Auto) 1 % (0-3) Neutrophils # (Auto) 4.8 x10^3uL (1.8-7.7) Lymphocytes # (Auto) 0.7 x10^3/uL (1.0-4.8) Monocytes # (Auto) 1.0 x10^3/uL (0.0-1.1) Eosinophils # (Auto) 0.2 x10^3/uL (0.0-0.7) Basophils # (Auto) 0.1 x10^3/uL (0.0-0.2) Sodium Level 133 mmol/L (136-145) Potassium Level 3.9 mmol/L (3.5-5.1) Chloride Level 96 mmol/L (98-107) Carbon Dioxide Level 24 mmol/L (21-32) Anion Gap 13 (6-14) Blood Urea Nitrogen 26 mg/dL (7-20) Creatinine 5.0 mg/dL (0.6-1.0) Estimated GFR (Cockcroft-Gault) 8.5 BUN/Creatinine Ratio 5 (6-20) Glucose Level 336 mg/dL (70-99) Calcium Level 7.9 mg/dL (8.5-10.1) Total Bilirubin 1.2 mg/dL (0.2-1.0) Aspartate Amino Transf (AST/SGOT) 17 U/L (15-37) Alanine Aminotransferase (ALT/SGPT) 14 U/L (14-59) Alkaline Phosphatase 101 U/L (46-116) Total Protein 7.4 g/dL (6.4-8.2) Albumin 2.2 g/dL (3.4-5.0) Albumin/Globulin Ratio 0.4 (1.0-1.7) Glucose (Fingerstick) 324 mg/dL (70-99) Laboratory Tests Test 10/15/18 13:41 10/15/18 13:50 10/15/18 15:00 10/15/18 15:41 Glucose (Fingerstick) 440 mg/dL (70-99) White Blood Count 4.9 x10^3/uL (4.0-11.0) Red Blood Count 3.24 x10^6/uL (3.50-5.40) Hemoglobin 10.0 g/dL (12.0-15.5) Hematocrit 29.9 % (36.0-47.0) Mean Corpuscular Volume 92 fL (79-100) Mean Corpuscular Hemoglobin 31 pg (25-35) Mean Corpuscular Hemoglobin Concent 34 g/dL (31-37) Red Cell Distribution Width 16.8 % (11.5-14.5) Platelet Count 71 x10^3/uL (140-400) Neutrophils (%) (Auto) 71 % (31-73) Lymphocytes (%) (Auto) 10 % (24-48) Monocytes (%) (Auto) 16 % (0-9) Eosinophils (%) (Auto) 2 % (0-3) Basophils (%) (Auto) 1 % (0-3) Neutrophils # (Auto) 3.5 x10^3uL (1.8-7.7) Lymphocytes # (Auto) 0.5 x10^3/uL (1.0-4.8) Monocytes # (Auto) 0.8 x10^3/uL (0.0-1.1) Eosinophils # (Auto) 0.1 x10^3/uL (0.0-0.7) Basophils # (Auto) 0.1 x10^3/uL (0.0-0.2) Erythrocyte Sedimentation Rate 30 (0-25) Sodium Level 134 mmol/L (136-145) Potassium Level 3.9 mmol/L (3.5-5.1) Chloride Level 95 mmol/L (98-107) Carbon Dioxide Level 26 mmol/L (21-32) Anion Gap 13 (6-14) Blood Urea Nitrogen 23 mg/dL (7-20) Creatinine 4.7 mg/dL (0.6-1.0) Estimated GFR (Cockcroft-Gault) 9.1 BUN/Creatinine Ratio 5 (6-20) Glucose Level 476 mg/dL (70-99) Lactic Acid Level 2.0 mmol/L (0.4-2.0) Calcium Level 7.7 mg/dL (8.5-10.1) Magnesium Level 1.7 mg/dL (1.8-2.4) Total Bilirubin 1.1 mg/dL (0.2-1.0) Aspartate Amino Transf (AST/SGOT) 19 U/L (15-37) Alanine Aminotransferase (ALT/SGPT) 14 U/L (14-59) Alkaline Phosphatase 110 U/L (46-116) Creatine Kinase 78 U/L (26-192) Creatine Kinase MB (Mass) 1.6 ng/mL (0.0-3.6) Creatine Kinase MB Relative Index 2.1 % (0-4) Troponin I Quantitative 0.017 ng/mL (0.000-0.055) C-Reactive Protein, Quantitative 55.5 mg/L (0-3.3) MW-Jbt-B-Type Natriuretic Peptide 53434 pg/mL (0-124) Total Protein 6.8 g/dL (6.4-8.2) Albumin 2.2 g/dL (3.4-5.0) Albumin/Globulin Ratio 0.5 (1.0-1.7) Ammonia 47 mcmol/L (11-34) Urine Collection Type Unknown Urine Color Yellow Urine Clarity Hazy Urine pH 5.5 Urine Specific [place] 1.020 Urine Protein 100 mg/dL (NEG-TRACE) Urine Glucose (UA) >=1000 mg/dL (NEG) Urine Ketones (Stick) Negative mg/dL (NEG) Urine Blood Large (NEG) Urine Nitrite Negative (NEG) Urine Bilirubin Negative (NEG) Urine Urobilinogen Dipstick 0.2 mg/dL (0.2 mg/dL) Urine Leukocyte Esterase Moderate (NEG) Urine RBC 3-5 /HPF (0-2) Urine WBC 20-40 /HPF (0-4) Urine Squamous Epithelial Cells Many /LPF Urine Bacteria Many /HPF (0-FEW) Test 10/16/18 04:10 10/16/18 08:03 White Blood Count 6.8 x10^3/uL (4.0-11.0) Red Blood Count 3.37 x10^6/uL (3.50-5.40) Hemoglobin 10.3 g/dL (12.0-15.5) Hematocrit 30.9 % (36.0-47.0) Mean Corpuscular Volume 92 fL (79-100) Mean Corpuscular Hemoglobin 31 pg (25-35) Mean Corpuscular Hemoglobin Concent 34 g/dL (31-37) Red Cell Distribution Width 16.7 % (11.5-14.5) Platelet Count 84 x10^3/uL (140-400) Neutrophils (%) (Auto) 71 % (31-73) Lymphocytes (%) (Auto) 11 % (24-48) Monocytes (%) (Auto) 15 % (0-9) Eosinophils (%) (Auto) 3 % (0-3) Basophils (%) (Auto) 1 % (0-3) Neutrophils # (Auto) 4.8 x10^3uL (1.8-7.7) Lymphocytes # (Auto) 0.7 x10^3/uL (1.0-4.8) Monocytes # (Auto) 1.0 x10^3/uL (0.0-1.1) Eosinophils # (Auto) 0.2 x10^3/uL (0.0-0.7) Basophils # (Auto) 0.1 x10^3/uL (0.0-0.2) Sodium Level 133 mmol/L (136-145) Potassium Level 3.9 mmol/L (3.5-5.1) Chloride Level 96 mmol/L (98-107) Carbon Dioxide Level 24 mmol/L (21-32) Anion Gap 13 (6-14) Blood Urea Nitrogen 26 mg/dL (7-20) Creatinine 5.0 mg/dL (0.6-1.0) Estimated GFR (Cockcroft-Gault) 8.5 BUN/Creatinine Ratio 5 (6-20) Glucose Level 336 mg/dL (70-99) Calcium Level 7.9 mg/dL (8.5-10.1) Total Bilirubin 1.2 mg/dL (0.2-1.0) Aspartate Amino Transf (AST/SGOT) 17 U/L (15-37) Alanine Aminotransferase (ALT/SGPT) 14 U/L (14-59) Alkaline Phosphatase 101 U/L (46-116) Total Protein 7.4 g/dL (6.4-8.2) Albumin 2.2 g/dL (3.4-5.0) Albumin/Globulin Ratio 0.4 (1.0-1.7) Glucose (Fingerstick) 324 mg/dL (70-99) Medications Current Medications Morphine Sulfate (Morphine Sulfate) 4 mg PRN Q15MIN PRN IV/SQ PAIN GREATER THAN 3/10 Last administered on 10/15/18at 18:50; Start 10/15/18 at 14:15; Stop at 14:14 Insulin Human Regular (HumuLIN R VIAL) 10 unit 1X ONCE IV ; Start 10/15/18 at 16:45; Stop 10/15/18 at 16:46; Status Cancel Insulin Human Regular (HumuLIN R VIAL) 5 unit 1X ONCE IV Last administered on 10/15/18at 17:04; Start 10/15/18 at 17:15; Stop 10/15/18 at 17:16; Status DC Ondansetron HCl (Zofran) 4 mg PRN Q8HRS PRN IV NAUSEA/VOMITING; Start 10/15/18 at 19:15; Stop 10/16/18 at 19:14 Morphine Sulfate (Morphine Sulfate) 4 mg PRN Q2HR PRN IV PAIN; Start 10/15/18 at 19:15; Stop 10/16/18 at 19:14 Insulin Human Lispro (HumaLOG) 0-7 UNITS TIDWMEALS SQ ; Start 10/16/18 at 08:00 Dextrose (Dextrose 50%-Water Syringe) 12.5 gm PRN Q15MIN PRN IV SEE COMMENTS; Start 10/15/18 at 19:15 Ceftriaxone Sodium (Rocephin) 1 gm Q24H IVP Last administered on 10/15/18at 22: 27; Start 10/15/18 at 20:00 Zolpidem Tartrate (Ambien) 5 mg PRN QHS PRN PO INSOMNIA Last administered on at 22:27; Start 10/15/18 at 22:15 Active Scripts Active Zofran (Ondansetron Hcl) 4 Mg Tablet 1 Tab PO Q6HRS Cephalexin 500 Mg Tablet 1 Tab PO BID Humalog (Insulin Lispro) 100 Unit/1 Ml Insuln.pen 5 Units SQ TIDWMEALS 28 Days Culturelle (Lactobacillus Rhamnosus Gg) 1 Each Cap.sprink 1 Cap PO BID 28 Days Lantus Solostar (Insulin Glargine,Hum.rec.anlog) 100 Unit/1 Ml Insuln.pen 15 Units SQ DAILY 28 Days Cipro (Ciprofloxacin Hcl) 250 Mg Tablet 250 Mg PO DAILY 10 Days Lactulose 20 Gm/30 Ml Solution 10 Gm PO PRN TID PRN 10 Days Aspirin Ec (Aspirin) 325 Mg Tablet.dr 325 Mg PO DAILYWBKFT 30 Days Reported Calcium Acetate 667 Mg Tablet 667 Mg PO BID Calcium Acetate 667 Mg Tablet 1,334 Mg PO TIDWMEALS Vitamin D (Cholecalciferol (Vitamin D3)) 50,000 Unit Capsule 50,000 Unit PO DAILY Tizanidine Hcl 2 Mg Capsule 2 Mg PO BID PRN Meclizine Hcl 25 Mg Tablet 1 Tab PO TID Voltaren (Diclofenac Sodium) 100 Gm Gel..gram. 1 Gm TP BID Hydrocodone-Apap 5-325 (Hydrocodone Bit/Acetaminophen) 1 Each Tablet 2 Tab PO PRN Q6HRS PRN Clonidine Hcl 0.2 Mg Tablet 0.2 Mg PO DAILY Gabapentin (Gabapentin) 100 Mg Capsule 100 Mg PO DAILY Zoloft (Sertraline Hcl) 50 Mg Tablet 75 Mg PO DAILY Renvela (Sevelamer Carbonate) 800 Mg Tablet 1 Tab PO TIDWMEALS Levothyroxine Sodium 175 Mcg Tablet 125 Mcg PO DAILYAC Dialyvite [place] D Tablet (Multivitamin, Min Cmb#25/Fa/D3) 1 Each Tablet 1 Each PO DAILY Metoprolol Succinate ( Xl ) (Metoprolol Succinate) 25 Mg Tab.er.24h 25 Mg PO DAILY Ondansetron Hcl 4 Mg Tablet 4 Mg PO Q6HRS PRN Zolpidem Tartrate 5 Mg Tablet 5 Mg PO PRN QHS PRN Famotidine 20 Mg Tablet 20 Mg PO DAILY Xifaxan (Rifaximin) 550 Mg Tablet 1 Tab PO BID Isosorbide Dinitrate 30 Mg Tablet 1 Tab PO DAILY Vitals/I & O Vital Sign - Last 24 Hours 10/15/18 10/15/18 10/15/18 10/15/18 13:38 14:04 14:15 15:25 Temp 98.9 98.9 Pulse 89 87 90 Resp 18 20 16 20 B/P (MAP) 170/67 (101) 143/49 (80) 158/61 (93) Pulse Ox 95 87 95 93 O2 Delivery Room Air Room Air Room Air 10/15/18 10/15/18 10/15/18 10/15/18 15:34 16:04 16:34 20:04 Pulse 84 85 81 71 Resp 20 18 B/P (MAP) 155/62 (93) 149/72 (97) 146/55 (85) 131/60 (83) Pulse Ox 90 93 93 100 O2 Delivery Room Air Room Air Room Air Room Air 10/15/18 10/15/18 10/16/18 10/16/18 20:55 23:00 03:00 07:00 Temp 98.4 98.3 98.3 97.7 98.4 98.3 98.3 97.7 Pulse 75 42 58 84 Resp 18 17 17 18 B/P (MAP) 128/42 (70) 118/75 (89) 126/63 (84) 157/47 (83) Pulse Ox 93 99 99 92 O2 Delivery Room Air Room Air Room Air Room Air Images CT Abd - 1. Cirrhosis with evidence of portal venous hypertension as suggested by splenomegaly and small volume ascites. 2. Cholelithiasis without imaging evidence of acute cholecystitis. IVIS SAWYER MD Oct 16, 2018 08:21
[2018-10-16] MEDS ORDERED: LACTULOSE 20 GM/30 ML SOLUTION. PO PRN (08:30)
[2018-10-16] MEDS: INSULIN LISPRO 300 UNITS/3 ML INSULN.PEN. SQ SCH ×5 (08:43→17:11)
--- NOTE | 2018-10-16 08:58 | PDOC2 ---
CONSULT Date of Consult Date of Consult DATE: 10/16/18 TIME: 08:46 Reason for Consult Reason for Consult: Right foot chronic DM ulcer History of Present Illness Reason for Visit: This is a 73 year old female with history of DM2, cirrhosis and ESRD on dialysis who was admitted yesterday for right shoulder pain and abdominal pain. She has a right foot chronic DM ulcer that has reportedly been treated by wound care in the past. I am unable to assess how long this has been present or obtain a history from the patient as she is very drowsy, she reportedly received Ambien last night. She is arousable, but not opening her eyes or participating in history or exam. She does respond appropriately when stimulated. There is no family present bedside. History obtained from chart review from [facility], our office and Count includes the [facility] wound care center. She had an MRI on 09/07/18 that did not show acute evidence of osteomyelitis, but clinical correlation advised. She was seen at [facility] after a 3 year absence on 09/08/[address] Arias who recommended she follow up with us which was supposed to take place yesterday. I am unable to find any records of arterial studies. She reportedly was going to [facility] for wound care. She also had a carotid duplex in 2017 showing less than 50%. She was seen in our office back in 2016 for her right upper arm shunt, however not since. She usually does dialysis TTS. Past Medical History Cardiovascular: CHF, HTN, Hyperlipidemia Pulmonary: COPD, Pneumonia, Other CENTRAL NERVOUS SYSTEM: CVA, Periperal neuropathy GI: GERD Heme/Onc: Anemia NOS Hepatobiliary: Cirrhosis Psych: Anxiety, Depression Musculoskeletal: Osteoarthritis Rheumatologic: No pertinent hx Infectious disease: No pertinent hx Renal/: Chronic renal failure, UTI Endocrine: Diabetes, Hypothyroidism Past Surgical History Past Surgical History Unable to obtain other than chart review Past Surgical History: Hysterectomy Family History Family History Unable to obtiain other than chart review Family History: Diabetes Social History Social History Unable to obtain other than chart review No ALCOHOL: none Drugs: None Lives: with Family Current Problem List Problem List Problems Medical Problems: (1) Cirrhosis of liver with ascites Status: Acute (2) Hyperglycemia Status: Acute (3) Open wound of right foot Status: Acute (4) UTI (urinary tract infection) Status: Acute Current Medications Current Medications Current Medications Morphine Sulfate (Morphine Sulfate) 4 mg PRN Q15MIN PRN IV/SQ PAIN GREATER THAN 3/10 Last administered on 10/15/18at 18:50; Start 10/15/18 at 14:15; Stop at 14:14 Insulin Human Regular (HumuLIN R VIAL) 10 unit 1X ONCE IV ; Start 10/15/18 at 16:45; Stop 10/15/18 at 16:46; Status Cancel Insulin Human Regular (HumuLIN R VIAL) 5 unit 1X ONCE IV Last administered on 10/15/18at 17:04; Start 10/15/18 at 17:15; Stop 10/15/18 at 17:16; Status DC Ondansetron HCl (Zofran) 4 mg PRN Q8HRS PRN IV NAUSEA/VOMITING; Start 10/15/18 at 19:15; Stop 10/16/18 at 19:14 Morphine Sulfate (Morphine Sulfate) 4 mg PRN Q2HR PRN IV PAIN; Start 10/15/18 at 19:15; Stop 10/16/18 at 19:14 Insulin Human Lispro (HumaLOG) 0-7 UNITS TIDWMEALS SQ ; Start 10/16/18 at 08:00 Dextrose (Dextrose 50%-Water Syringe) 12.5 gm PRN Q15MIN PRN IV SEE COMMENTS; Start 10/15/18 at 19:15 Ceftriaxone Sodium (Rocephin) 1 gm Q24H IVP Last administered on 10/15/18at 22: 27; Start 10/15/18 at 20:00 Zolpidem Tartrate (Ambien) 5 mg PRN QHS PRN PO INSOMNIA Last administered on at 22:27; Start 10/15/18 at 22:15 Aspirin (Ecotrin) 325 mg DAILYWBKFT PO ; Start 10/16/18 at 10:00 Clonidine HCl (Catapres) 0.2 mg DAILY PO ; Start 10/16/18 at 09:00 Diclofenac Sodium (Voltaren) 1 ronel BID TP ; Start 10/16/18 at 09:00 Famotidine (Pepcid) 20 mg QODAY PO ; Start 10/16/18 at 09:00 Gabapentin (Neurontin) 100 mg DAILY PO ; Start 10/16/18 at 09:00 Acetaminophen/ Hydrocodone Bitart (Lortab 5/325) 2 tab PRN Q6HRS PRN PO PAIN; Start 10/16/18 at 08:30 Insulin Glargine (Lantus) 15 units DAILY SQ ; Start 10/16/18 at 09:00 Insulin Human Lispro (HumaLOG) 5 units TIDWMEALS SQ ; Start 10/16/18 at 12:00 Lactobacillus Rhamnosus (Culturelle) 1 cap BID PO ; Start 10/16/18 at 09:00 Lactulose (Lactulose) 10 gm PRN TID PRN PO CONSTIPATION; Start 10/16/18 at 08: 30 Levothyroxine Sodium (Synthroid) 125 mcg DAILY06 PO ; Start 10/16/18 at 09:00 Metoprolol Succinate (Toprol Xl) 25 mg DAILY PO ; Start 10/16/18 at 09:00 Rifaximin (Xifaxan) 550 mg BID PO ; Start 10/16/18 at 09:00 Sertraline HCl (Zoloft) 75 mg DAILY PO ; Start 10/16/18 at 09:00 Sevelamer Carbonate (Renvela) 800 mg TIDWMEALS PO ; Start 10/16/18 at 12:00 Isosorbide Mononitrate (Imdur) 30 mg DAILY PO ; Start 10/16/18 at 09:00 Active Scripts Active Zofran (Ondansetron Hcl) 4 Mg Tablet 1 Tab PO Q6HRS Cephalexin 500 Mg Tablet 1 Tab PO BID Humalog (Insulin Lispro) 100 Unit/1 Ml Insuln.pen 5 Units SQ TIDWMEALS 28 Days Culturelle (Lactobacillus Rhamnosus Gg) 1 Each Cap.sprink 1 Cap PO BID 28 Days Lantus Solostar (Insulin Glargine,Hum.rec.anlog) 100 Unit/1 Ml Insuln.pen 15 Units SQ DAILY 28 Days Cipro (Ciprofloxacin Hcl) 250 Mg Tablet 250 Mg PO DAILY 10 Days Lactulose 20 Gm/30 Ml Solution 10 Gm PO PRN TID PRN 10 Days Aspirin Ec (Aspirin) 325 Mg Tablet.dr 325 Mg PO DAILYWBKFT 30 Days Reported Calcium Acetate 667 Mg Tablet 667 Mg PO BID Calcium Acetate 667 Mg Tablet 1,334 Mg PO TIDWMEALS Vitamin D (Cholecalciferol (Vitamin D3)) 50,000 Unit Capsule 50,000 Unit PO DAILY Tizanidine Hcl 2 Mg Capsule 2 Mg PO BID PRN Meclizine Hcl 25 Mg Tablet 1 Tab PO TID Voltaren (Diclofenac Sodium) 100 Gm Gel..gram. 1 Gm TP BID Hydrocodone-Apap 5-325 (Hydrocodone Bit/Acetaminophen) 1 Each Tablet 2 Tab PO PRN Q6HRS PRN Clonidine Hcl 0.2 Mg Tablet 0.2 Mg PO DAILY Gabapentin (Gabapentin) 100 Mg Capsule 100 Mg PO DAILY Zoloft (Sertraline Hcl) 50 Mg Tablet 75 Mg PO DAILY Renvela (Sevelamer Carbonate) 800 Mg Tablet 1 Tab PO TIDWMEALS Levothyroxine Sodium 175 Mcg Tablet 125 Mcg PO DAILYAC Dialyvite Ezel D Tablet (Multivitamin, Min Cmb#25/Fa/D3) 1 Each Tablet 1 Each PO DAILY Metoprolol Succinate ( Xl ) (Metoprolol Succinate) 25 Mg Tab.er.24h 25 Mg PO DAILY Ondansetron Hcl 4 Mg Tablet 4 Mg PO Q6HRS PRN Zolpidem Tartrate 5 Mg Tablet 5 Mg PO PRN QHS PRN Famotidine 20 Mg Tablet 20 Mg PO DAILY Xifaxan (Rifaximin) 550 Mg Tablet 1 Tab PO BID Isosorbide Dinitrate 30 Mg Tablet 1 Tab PO DAILY Allergies Allergies: Coded Allergies: adhesive (Verified Allergy, Intermediate, Rash, 10/15/18) TAPE ROS Review of System Unable to obtain Physical Exam General: No acute distress, Other (Pt drowsy, responds appropriately with stimulation. Does not participate in exam) HEENT: Atraumatic Lungs: Normal air movement Heart: Regular rate Abdomen: Normal bowel sounds, Other (Tenderness to both lower quadrants. Skin hypertrophied in both lower quadrants. ) Extremities: No cyanosis, Other (Right upper arm shunt with strong thrill and bruit. Good radial pulses bilaterally. Femoral pulses bilaterally present. Unable to appreciate pedal pulses as pt with cellulitis and edema to both lower extermities. Doppler signals weak but present on left AT and PT, right AT dopplerable, unable to find right PT doppler signal. ) Skin: Other (Erythema and edema to both lower extremities inferior to knees with pedal edema, skin dry. Left foot with no wounds or skin breakdown. Right foot with large ulcer to plantar mid foot with lateral deformity, there is some granulation tissue with moist white thick covering, mild odor, minimal what appears to be pustular drainage. Can probe to bone, wound undermines distally at distal wound. ) Neuro: Normal speech Psych/Mental Status: Mental status NL MUSCULOSKELETAL: Other (Significant right shoulder pain, resistent to any ROM) Vitals VITALS Vital Signs Date Time Temp Pulse Resp B/P (MAP) Pulse Ox O2 Delivery O2 Flow Rate FiO2 10/16/18 07:00 97.7 84 18 157/47 (83) 92 Room Air 97.7 Labs Labs Laboratory Tests Test 10/15/18 13:41 10/15/18 13:50 10/15/18 15:00 10/15/18 15:41 Glucose (Fingerstick) 440 mg/dL (70-99) White Blood Count 4.9 x10^3/uL (4.0-11.0) Red Blood Count 3.24 x10^6/uL (3.50-5.40) Hemoglobin 10.0 g/dL (12.0-15.5) Hematocrit 29.9 % (36.0-47.0) Mean Corpuscular Volume 92 fL (79-100) Mean Corpuscular Hemoglobin 31 pg (25-35) Mean Corpuscular Hemoglobin Concent 34 g/dL (31-37) Red Cell Distribution Width 16.8 % (11.5-14.5) Platelet Count 71 x10^3/uL (140-400) Neutrophils (%) (Auto) 71 % (31-73) Lymphocytes (%) (Auto) 10 % (24-48) Monocytes (%) (Auto) 16 % (0-9) Eosinophils (%) (Auto) 2 % (0-3) Basophils (%) (Auto) 1 % (0-3) Neutrophils # (Auto) 3.5 x10^3uL (1.8-7.7) Lymphocytes # (Auto) 0.5 x10^3/uL (1.0-4.8) Monocytes # (Auto) 0.8 x10^3/uL (0.0-1.1) Eosinophils # (Auto) 0.1 x10^3/uL (0.0-0.7) Basophils # (Auto) 0.1 x10^3/uL (0.0-0.2) Erythrocyte Sedimentation Rate 30 (0-25) Sodium Level 134 mmol/L (136-145) Potassium Level 3.9 mmol/L (3.5-5.1) Chloride Level 95 mmol/L (98-107) Carbon Dioxide Level 26 mmol/L (21-32) Anion Gap 13 (6-14) Blood Urea Nitrogen 23 mg/dL (7-20) Creatinine 4.7 mg/dL (0.6-1.0) Estimated GFR (Cockcroft-Gault) 9.1 BUN/Creatinine Ratio 5 (6-20) Glucose Level 476 mg/dL (70-99) Lactic Acid Level 2.0 mmol/L (0.4-2.0) Calcium Level 7.7 mg/dL (8.5-10.1) Magnesium Level 1.7 mg/dL (1.8-2.4) Total Bilirubin 1.1 mg/dL (0.2-1.0) Aspartate Amino Transf (AST/SGOT) 19 U/L (15-37) Alanine Aminotransferase (ALT/SGPT) 14 U/L (14-59) Alkaline Phosphatase 110 U/L (46-116) Creatine Kinase 78 U/L (26-192) Creatine Kinase MB (Mass) 1.6 ng/mL (0.0-3.6) Creatine Kinase MB Relative Index 2.1 % (0-4) Troponin I Quantitative 0.017 ng/mL (0.000-0.055) C-Reactive Protein, Quantitative 55.5 mg/L (0-3.3) LA-Vyb-V-Type Natriuretic Peptide 70842 pg/mL (0-124) Total Protein 6.8 g/dL (6.4-8.2) Albumin 2.2 g/dL (3.4-5.0) Albumin/Globulin Ratio 0.5 (1.0-1.7) Ammonia 47 mcmol/L (11-34) Urine Collection Type Unknown Urine Color Yellow Urine Clarity Hazy Urine pH 5.5 Urine Specific Ethridge 1.020 Urine Protein 100 mg/dL (NEG-TRACE) Urine Glucose (UA) >=1000 mg/dL (NEG) Urine Ketones (Stick) Negative mg/dL (NEG) Urine Blood Large (NEG) Urine Nitrite Negative (NEG) Urine Bilirubin Negative (NEG) Urine Urobilinogen Dipstick 0.2 mg/dL (0.2 mg/dL) Urine Leukocyte Esterase Moderate (NEG) Urine RBC 3-5 /HPF (0-2) Urine WBC 20-40 /HPF (0-4) Urine Squamous Epithelial Cells Many /LPF Urine Bacteria Many /HPF (0-FEW) Test 10/16/18 04:10 10/16/18 08:03 White Blood Count 6.8 x10^3/uL (4.0-11.0) Red Blood Count 3.37 x10^6/uL (3.50-5.40) Hemoglobin 10.3 g/dL (12.0-15.5) Hematocrit 30.9 % (36.0-47.0) Mean Corpuscular Volume 92 fL (79-100) Mean Corpuscular Hemoglobin 31 pg (25-35) Mean Corpuscular Hemoglobin Concent 34 g/dL (31-37) Red Cell Distribution Width 16.7 % (11.5-14.5) Platelet Count 84 x10^3/uL (140-400) Neutrophils (%) (Auto) 71 % (31-73) Lymphocytes (%) (Auto) 11 % (24-48) Monocytes (%) (Auto) 15 % (0-9) Eosinophils (%) (Auto) 3 % (0-3) Basophils (%) (Auto) 1 % (0-3) Neutrophils # (Auto) 4.8 x10^3uL (1.8-7.7) Lymphocytes # (Auto) 0.7 x10^3/uL (1.0-4.8) Monocytes # (Auto) 1.0 x10^3/uL (0.0-1.1) Eosinophils # (Auto) 0.2 x10^3/uL (0.0-0.7) Basophils # (Auto) 0.1 x10^3/uL (0.0-0.2) Sodium Level 133 mmol/L (136-145) Potassium Level 3.9 mmol/L (3.5-5.1) Chloride Level 96 mmol/L (98-107) Carbon Dioxide Level 24 mmol/L (21-32) Anion Gap 13 (6-14) Blood Urea Nitrogen 26 mg/dL (7-20) Creatinine 5.0 mg/dL (0.6-1.0) Estimated GFR (Cockcroft-Gault) 8.5 BUN/Creatinine Ratio 5 (6-20) Glucose Level 336 mg/dL (70-99) Calcium Level 7.9 mg/dL (8.5-10.1) Total Bilirubin 1.2 mg/dL (0.2-1.0) Aspartate Amino Transf (AST/SGOT) 17 U/L (15-37) Alanine Aminotransferase (ALT/SGPT) 14 U/L (14-59) Alkaline Phosphatase 101 U/L (46-116) Total Protein 7.4 g/dL (6.4-8.2) Albumin 2.2 g/dL (3.4-5.0) Albumin/Globulin Ratio 0.4 (1.0-1.7) Glucose (Fingerstick) 324 mg/dL (70-99) Laboratory Tests Test 10/15/18 13:41 10/15/18 13:50 10/15/18 15:00 10/15/18 15:41 Glucose (Fingerstick) 440 mg/dL (70-99) White Blood Count 4.9 x10^3/uL (4.0-11.0) Red Blood Count 3.24 x10^6/uL (3.50-5.40) Hemoglobin 10.0 g/dL (12.0-15.5) Hematocrit 29.9 % (36.0-47.0) Mean Corpuscular Volume 92 fL (79-100) Mean Corpuscular Hemoglobin 31 pg (25-35) Mean Corpuscular Hemoglobin Concent 34 g/dL (31-37) Red Cell Distribution Width 16.8 % (11.5-14.5) Platelet Count 71 x10^3/uL (140-400) Neutrophils (%) (Auto) 71 % (31-73) Lymphocytes (%) (Auto) 10 % (24-48) Monocytes (%) (Auto) 16 % (0-9) Eosinophils (%) (Auto) 2 % (0-3) Basophils (%) (Auto) 1 % (0-3) Neutrophils # (Auto) 3.5 x10^3uL (1.8-7.7) Lymphocytes # (Auto) 0.5 x10^3/uL (1.0-4.8) Monocytes # (Auto) 0.8 x10^3/uL (0.0-1.1) Eosinophils # (Auto) 0.1 x10^3/uL (0.0-0.7) Basophils # (Auto) 0.1 x10^3/uL (0.0-0.2) Erythrocyte Sedimentation Rate 30 (0-25) Sodium Level 134 mmol/L (136-145) Potassium Level 3.9 mmol/L (3.5-5.1) Chloride Level 95 mmol/L (98-107) Carbon Dioxide Level 26 mmol/L (21-32) Anion Gap 13 (6-14) Blood Urea Nitrogen 23 mg/dL (7-20) Creatinine 4.7 mg/dL (0.6-1.0) Estimated GFR (Cockcroft-Gault) 9.1 BUN/Creatinine Ratio 5 (6-20) Glucose Level 476 mg/dL (70-99) Lactic Acid Level 2.0 mmol/L (0.4-2.0) Calcium Level 7.7 mg/dL (8.5-10.1) Magnesium Level 1.7 mg/dL (1.8-2.4) Total Bilirubin 1.1 mg/dL (0.2-1.0) Aspartate Amino Transf (AST/SGOT) 19 U/L (15-37) Alanine Aminotransferase (ALT/SGPT) 14 U/L (14-59) Alkaline Phosphatase 110 U/L (46-116) Creatine Kinase 78 U/L (26-192) Creatine Kinase MB (Mass) 1.6 ng/mL (0.0-3.6) Creatine Kinase MB Relative Index 2.1 % (0-4) Troponin I Quantitative 0.017 ng/mL (0.000-0.055) C-Reactive Protein, Quantitative 55.5 mg/L (0-3.3) DA-Xlw-G-Type Natriuretic Peptide 44677 pg/mL (0-124) Total Protein 6.8 g/dL (6.4-8.2) Albumin 2.2 g/dL (3.4-5.0) Albumin/Globulin Ratio 0.5 (1.0-1.7) Ammonia 47 mcmol/L (11-34) Urine Collection Type Unknown Urine Color Yellow Urine Clarity Hazy Urine pH 5.5 Urine Specific Ethridge 1.020 Urine Protein 100 mg/dL (NEG-TRACE) Urine Glucose (UA) >=1000 mg/dL (NEG) Urine Ketones (Stick) Negative mg/dL (NEG) Urine Blood Large (NEG) Urine Nitrite Negative (NEG) Urine Bilirubin Negative (NEG) Urine Urobilinogen Dipstick 0.2 mg/dL (0.2 mg/dL) Urine Leukocyte Esterase Moderate (NEG) Urine RBC 3-5 /HPF (0-2) Urine WBC 20-40 /HPF (0-4) Urine Squamous Epithelial Cells Many /LPF Urine Bacteria Many /HPF (0-FEW) Test 10/16/18 04:10 10/16/18 08:03 White Blood Count 6.8 x10^3/uL (4.0-11.0) Red Blood Count 3.37 x10^6/uL (3.50-5.40) Hemoglobin 10.3 g/dL (12.0-15.5) Hematocrit 30.9 % (36.0-47.0) Mean Corpuscular Volume 92 fL (79-100) Mean Corpuscular Hemoglobin 31 pg (25-35) Mean Corpuscular Hemoglobin Concent 34 g/dL (31-37) Red Cell Distribution Width 16.7 % (11.5-14.5) Platelet Count 84 x10^3/uL (140-400) Neutrophils (%) (Auto) 71 % (31-73) Lymphocytes (%) (Auto) 11 % (24-48) Monocytes (%) (Auto) 15 % (0-9) Eosinophils (%) (Auto) 3 % (0-3) Basophils (%) (Auto) 1 % (0-3) Neutrophils # (Auto) 4.8 x10^3uL (1.8-7.7) Lymphocytes # (Auto) 0.7 x10^3/uL (1.0-4.8) Monocytes # (Auto) 1.0 x10^3/uL (0.0-1.1) Eosinophils # (Auto) 0.2 x10^3/uL (0.0-0.7) Basophils # (Auto) 0.1 x10^3/uL (0.0-0.2) Sodium Level 133 mmol/L (136-145) Potassium Level 3.9 mmol/L (3.5-5.1) Chloride Level 96 mmol/L (98-107) Carbon Dioxide Level 24 mmol/L (21-32) Anion Gap 13 (6-14) Blood Urea Nitrogen 26 mg/dL (7-20) Creatinine 5.0 mg/dL (0.6-1.0) Estimated GFR (Cockcroft-Gault) 8.5 BUN/Creatinine Ratio 5 (6-20) Glucose Level 336 mg/dL (70-99) Calcium Level 7.9 mg/dL (8.5-10.1) Total Bilirubin 1.2 mg/dL (0.2-1.0) Aspartate Amino Transf (AST/SGOT) 17 U/L (15-37) Alanine Aminotransferase (ALT/SGPT) 14 U/L (14-59) Alkaline Phosphatase 101 U/L (46-116) Total Protein 7.4 g/dL (6.4-8.2) Albumin 2.2 g/dL (3.4-5.0) Albumin/Globulin Ratio 0.4 (1.0-1.7) Glucose (Fingerstick) 324 mg/dL (70-99) Assessment/Plan Assessment/Plan Pt with chronic DM right foot plantar ulcer that penetrates to bone. This appears to have been present for years although exact amount of time present is unknown at this time. She had an MRI on 09/07/18 that did not show osteomyelitis , however wound does probe to bone and clinical correlation may indicate another scan. I am unsure wether she was on abx prior to her admission last night when Rocephin was started. Will consult ID. Cannot appreciate palpable pulses due to cellulitis, and doppler signals not impressive. I am Unable to find any records of arterial studies in [facility], [facility] or through our office (please see history), will obtain arterial US to start. Pt will likely require wound debridement possible TMA in the future once arterial circulation shows adequacy. If inadequate via US pt will likely require arteriogram. She is ESRD on HD, her right arm AV shunt is functioning well with good radial pulse. Continue baby aspirin. Pt should be heel touch only on right foot, nonweight bearing on right midfoot. Discussed with Dr. Arango. We will continue to follow, thank you for consult. SANDRA ISRAEL Oct 16, 2018 08:58
[2018-10-16] MEDS: DICLOFENAC SODIUM 1% TOPICAL GEL 100GM TUBE. TP SCH ×2 (09:00→20:52)
[2018-10-16] MEDS ORDERED: FAMOTIDINE 20 MG TABLET. PO SCH (09:00)
[2018-10-16] MEDS ORDERED: rifAXIMin 550 MG TABLET PO SCH (09:00)
--- NOTE | 2018-10-16 09:30 | NUR ---
PATIENT SLEEPING THROUGHOUT THE AM, RESPONDS TO NAME AND LIGHT TOUCH, PATIENT ANSWERS QUESTIONS READILY AND THEN FALLS BACK TO SLEEP, PATIENT DID NOT CONSUME BREAKFAST THIS AM DUE TO BEING TOO SLEEPY, WILL HOLD AM MEDS AT THIS TIME AND ADMINISTER THEM WHEN PATIENT IS MORE FULLY AWAKE. ASSESSMENT COMPLETED, WILL MONITOR.
--- NOTE | 2018-10-16 09:35 | PDOC2 ---
GI CONSULT Reason For Consult: Liver cirrhosis HPI: HPI: 73 y/o female who is very drowsy this morning, has difficulty keeping her eyes open during the interview. Had Ambien and morphine last night. Came to ER w/ shoulder and abd pain yesterday, admitted. H/o cirrhosis (suspected BILLINGS - viral hepatitis negative in the past along w/ JULES), ascites and paracentesis, and hepatic encephalopathy. Last admission had GI eval for abdominal pain - therapeutic paracentesis considered but not pursued after discussion with IR - felt not enough fluid present to alter symptoms. Unclear what she takes at home - this time has lactulose ordered PRN , no Xifaxan. Additional orders for famotidine QOD. Cholelithiasis on past imaging (again demonstrated on yesterday's CT w/o cholecystitis). ACD w/ past hematology eval and bone marrow biopsy. Reviewed w/ our office - had EGD (Dr. Nuno) in 2006 w/ single non-bleeding ulcer. No record of colonoscopy. Has cancelled several office visits, also no- showed once. H/o DM, CHF, ESRD on HD (w/ some compliance issues I think). PMH: PMH: CHF, HTN, HLD, COPD, pneumonia, GONZALO, CVA, peripheral neuropathy, anemia ( chronic disease), cirrhosis (ascites, paracentesis, hepatic encephalopathy), anxiety, depression, OA, ESRD on HD, UTI, DM, hypothyroidism, cholelithiasis, PUD hysterectomy, bone marrow biopsy FH: Family History: DM Social History: Smoke: No ALCOHOL: none Drugs: None ROS: Difficult to obtain, please refer to HPI. Vitals: Vitals: Vital Signs Date Time Temp Pulse Resp B/P (MAP) Pulse Ox O2 Delivery O2 Flow Rate FiO2 10/16/18 07:00 97.7 84 18 157/47 (83) 92 Room Air 97.7 Labs: Labs: Laboratory Tests Test 10/15/18 13:41 10/15/18 13:50 10/15/18 15:00 10/15/18 15:41 Glucose (Fingerstick) 440 mg/dL (70-99) White Blood Count 4.9 x10^3/uL (4.0-11.0) Red Blood Count 3.24 x10^6/uL (3.50-5.40) Hemoglobin 10.0 g/dL (12.0-15.5) Hematocrit 29.9 % (36.0-47.0) Mean Corpuscular Volume 92 fL (79-100) Mean Corpuscular Hemoglobin 31 pg (25-35) Mean Corpuscular Hemoglobin Concent 34 g/dL (31-37) Red Cell Distribution Width 16.8 % (11.5-14.5) Platelet Count 71 x10^3/uL (140-400) Neutrophils (%) (Auto) 71 % (31-73) Lymphocytes (%) (Auto) 10 % (24-48) Monocytes (%) (Auto) 16 % (0-9) Eosinophils (%) (Auto) 2 % (0-3) Basophils (%) (Auto) 1 % (0-3) Neutrophils # (Auto) 3.5 x10^3uL (1.8-7.7) Lymphocytes # (Auto) 0.5 x10^3/uL (1.0-4.8) Monocytes # (Auto) 0.8 x10^3/uL (0.0-1.1) Eosinophils # (Auto) 0.1 x10^3/uL (0.0-0.7) Basophils # (Auto) 0.1 x10^3/uL (0.0-0.2) Erythrocyte Sedimentation Rate 30 (0-25) Sodium Level 134 mmol/L (136-145) Potassium Level 3.9 mmol/L (3.5-5.1) Chloride Level 95 mmol/L (98-107) Carbon Dioxide Level 26 mmol/L (21-32) Anion Gap 13 (6-14) Blood Urea Nitrogen 23 mg/dL (7-20) Creatinine 4.7 mg/dL (0.6-1.0) Estimated GFR (Cockcroft-Gault) 9.1 BUN/Creatinine Ratio 5 (6-20) Glucose Level 476 mg/dL (70-99) Lactic Acid Level 2.0 mmol/L (0.4-2.0) Calcium Level 7.7 mg/dL (8.5-10.1) Magnesium Level 1.7 mg/dL (1.8-2.4) Total Bilirubin 1.1 mg/dL (0.2-1.0) Aspartate Amino Transf (AST/SGOT) 19 U/L (15-37) Alanine Aminotransferase (ALT/SGPT) 14 U/L (14-59) Alkaline Phosphatase 110 U/L (46-116) Creatine Kinase 78 U/L (26-192) Creatine Kinase MB (Mass) 1.6 ng/mL (0.0-3.6) Creatine Kinase MB Relative Index 2.1 % (0-4) Troponin I Quantitative 0.017 ng/mL (0.000-0.055) C-Reactive Protein, Quantitative 55.5 mg/L (0-3.3) SX-Zbr-E-Type Natriuretic Peptide 90261 pg/mL (0-124) Total Protein 6.8 g/dL (6.4-8.2) Albumin 2.2 g/dL (3.4-5.0) Albumin/Globulin Ratio 0.5 (1.0-1.7) Ammonia 47 mcmol/L (11-34) Urine Collection Type Unknown Urine Color Yellow Urine Clarity Hazy Urine pH 5.5 Urine Specific [place] 1.020 Urine Protein 100 mg/dL (NEG-TRACE) Urine Glucose (UA) >=1000 mg/dL (NEG) Urine Ketones (Stick) Negative mg/dL (NEG) Urine Blood Large (NEG) Urine Nitrite Negative (NEG) Urine Bilirubin Negative (NEG) Urine Urobilinogen Dipstick 0.2 mg/dL (0.2 mg/dL) Urine Leukocyte Esterase Moderate (NEG) Urine RBC 3-5 /HPF (0-2) Urine WBC 20-40 /HPF (0-4) Urine Squamous Epithelial Cells Many /LPF Urine Bacteria Many /HPF (0-FEW) Test 10/16/18 04:10 10/16/18 08:03 White Blood Count 6.8 x10^3/uL (4.0-11.0) Red Blood Count 3.37 x10^6/uL (3.50-5.40) Hemoglobin 10.3 g/dL (12.0-15.5) Hematocrit 30.9 % (36.0-47.0) Mean Corpuscular Volume 92 fL (79-100) Mean Corpuscular Hemoglobin 31 pg (25-35) Mean Corpuscular Hemoglobin Concent 34 g/dL (31-37) Red Cell Distribution Width 16.7 % (11.5-14.5) Platelet Count 84 x10^3/uL (140-400) Neutrophils (%) (Auto) 71 % (31-73) Lymphocytes (%) (Auto) 11 % (24-48) Monocytes (%) (Auto) 15 % (0-9) Eosinophils (%) (Auto) 3 % (0-3) Basophils (%) (Auto) 1 % (0-3) Neutrophils # (Auto) 4.8 x10^3uL (1.8-7.7) Lymphocytes # (Auto) 0.7 x10^3/uL (1.0-4.8) Monocytes # (Auto) 1.0 x10^3/uL (0.0-1.1) Eosinophils # (Auto) 0.2 x10^3/uL (0.0-0.7) Basophils # (Auto) 0.1 x10^3/uL (0.0-0.2) Sodium Level 133 mmol/L (136-145) Potassium Level 3.9 mmol/L (3.5-5.1) Chloride Level 96 mmol/L (98-107) Carbon Dioxide Level 24 mmol/L (21-32) Anion Gap 13 (6-14) Blood Urea Nitrogen 26 mg/dL (7-20) Creatinine 5.0 mg/dL (0.6-1.0) Estimated GFR (Cockcroft-Gault) 8.5 BUN/Creatinine Ratio 5 (6-20) Glucose Level 336 mg/dL (70-99) Calcium Level 7.9 mg/dL (8.5-10.1) Total Bilirubin 1.2 mg/dL (0.2-1.0) Aspartate Amino Transf (AST/SGOT) 17 U/L (15-37) Alanine Aminotransferase (ALT/SGPT) 14 U/L (14-59) Alkaline Phosphatase 101 U/L (46-116) Total Protein 7.4 g/dL (6.4-8.2) Albumin 2.2 g/dL (3.4-5.0) Albumin/Globulin Ratio 0.4 (1.0-1.7) Glucose (Fingerstick) 324 mg/dL (70-99) Allergies: Coded Allergies: adhesive (Verified Allergy, Intermediate, Rash, 10/15/18) TAPE Medications: Current Medications Medications (Trade) Dose Ordered Sig/Vijay Route PRN Reason Start Time Stop Time Status Last Admin Dose Admin Morphine Sulfate (Morphine Sulfate) 4 mg PRN Q15MIN PRN IV/SQ PAIN GREATER THAN 3/10 10/15/18 14:15 10/16/18 14:14 10/15/18 18:50 Insulin Human Regular (HumuLIN R VIAL) 5 unit 1X ONCE IV 10/15/18 17:15 10/15/18 17:16 DC 10/15/18 17:04 Insulin Human Lispro (HumaLOG) 0-7 UNITS TIDWMEALS SQ 10/16/18 08:00 10/16/18 08:43 Ceftriaxone Sodium (Rocephin) 1 gm Q24H IVP 10/15/18 20:00 10/15/18 22:27 Zolpidem Tartrate (Ambien) 5 mg PRN QHS PRN PO INSOMNIA 10/15/18 22:15 10/15/18 22:27 Imaging: Imaging: CXR IMPRESSION: Findings of mild interstitial pulmonary edema, atypical/viral infection or chronic interstitial changes. Right shoulder X-Ray IMPRESSION:No acute fracture or dislocation. No significant arthritic changes. CT A/P w/o contrast FINDINGS: Limited evaluation of solid abdominal and pelvic organs due to lack of IV contrast. Heart is normal in size. Trace bilateral pleural effusion. Clear lung bases. Nodular contour of the liver with multiple low attenuating lesions in segment IVb, the largest measuring 1 mm, stable from previous exam. Spleen is enlarged measuring 17 cm. Gallstones noted. Noncontrast appearance of the pancreas is within normal limits. Adrenal glands demonstrate no nodularity. Small volume ascites. No nephrolithiasis or hydronephrosis. Diffuse atherosclerotic disease of the abdominal aorta and its major arteries. No bowel obstruction. Midline umbilical hernia is seen containing small amount of ascitic fluid. Diffuse body wall edema. Mildly enlarged bilateral inguinal lymph nodes, nonspecific. No enlarged pelvic or retroperitoneal adenopathy. No pneumoperitoneum. No suspicious bony lesion. Urinary bladder demonstrates no radiopaque stones. Status post hysterectomy. IMPRESSION: Limited evaluation of solid abdominal and pelvic organs due to lack of IV contrast. 1. Cirrhosis with evidence of portal venous hypertension as suggested by splenomegaly and small volume ascites. 2. Cholelithiasis without imaging evidence of acute cholecystitis. PE: GEN: NAD HEENT: Atraumatic, PERRL LUNGS: CTAB HEART: RRR ABD: obese, lower abdomen/above pannus is quite tender to light touch - skin is thickened and erythematous - seems superficial tenderness, also note umbilical hernia EXTREMITY/SKIN: chronic changes BLE w/ woody erythema, right foot wound NEURO/PSYCH: drowsy, eyes will flutter open when asked, mumbles a few words - seems oriented A/P: A/P: Shoulder and abd pain, right foot wound -note plans for ID to see Cirrhosis, h/o ascites/paracentesis, h/o hepatic encephalopathy -portal hypertension noted on CT, small ascites -ammonia 47 -doppler last month ok H/o GERD, PUD ACD, DM/hyperglycemia, ESRD on HD Asymptomatic cholelithiasis CRC screen - unclear -- ?abd pain seems superficial Add Xiafaxan, adjust lactulose as needed - goal for 2-3 stools daily. Will change from H2 bakari QOD to PPI QD. Could consider paracentesis though only small ascites on CT. Other per BRENDA Mcclelland Oct 16, 2018 09:35
[2018-10-16] MEDS: rifAXIMin 550 MG TABLET PO SCH ×2 (10:00→20:52)
--- NOTE | 2018-10-16 10:18 | EKG ---
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
[2018-10-16 11:00] VITALS: BP 142/58
[2018-10-16] MEDS ORDERED: VANCOMYCIN 1.75 GM in IV NORMAL SALINE 500ML BAG 500 ML IV ONE (11:00)
--- NOTE | 2018-10-16 11:03 | PDOC ---
Infectious Disease Note Vital Sign Vital Signs Vital Signs Date Time Temp Pulse Resp B/P (MAP) Pulse Ox O2 Delivery O2 Flow Rate FiO2 10/16/18 07:00 97.7 84 18 157/47 (83) 92 Room Air 97.7 Labs Lab Laboratory Tests Test 10/15/18 13:41 10/15/18 13:50 10/15/18 15:00 10/15/18 15:41 Glucose (Fingerstick) 440 mg/dL (70-99) White Blood Count 4.9 x10^3/uL (4.0-11.0) Red Blood Count 3.24 x10^6/uL (3.50-5.40) Hemoglobin 10.0 g/dL (12.0-15.5) Hematocrit 29.9 % (36.0-47.0) Mean Corpuscular Volume 92 fL (79-100) Mean Corpuscular Hemoglobin 31 pg (25-35) Mean Corpuscular Hemoglobin Concent 34 g/dL (31-37) Red Cell Distribution Width 16.8 % (11.5-14.5) Platelet Count 71 x10^3/uL (140-400) Neutrophils (%) (Auto) 71 % (31-73) Lymphocytes (%) (Auto) 10 % (24-48) Monocytes (%) (Auto) 16 % (0-9) Eosinophils (%) (Auto) 2 % (0-3) Basophils (%) (Auto) 1 % (0-3) Neutrophils # (Auto) 3.5 x10^3uL (1.8-7.7) Lymphocytes # (Auto) 0.5 x10^3/uL (1.0-4.8) Monocytes # (Auto) 0.8 x10^3/uL (0.0-1.1) Eosinophils # (Auto) 0.1 x10^3/uL (0.0-0.7) Basophils # (Auto) 0.1 x10^3/uL (0.0-0.2) Erythrocyte Sedimentation Rate 30 (0-25) Sodium Level 134 mmol/L (136-145) Potassium Level 3.9 mmol/L (3.5-5.1) Chloride Level 95 mmol/L (98-107) Carbon Dioxide Level 26 mmol/L (21-32) Anion Gap 13 (6-14) Blood Urea Nitrogen 23 mg/dL (7-20) Creatinine 4.7 mg/dL (0.6-1.0) Estimated GFR (Cockcroft-Gault) 9.1 BUN/Creatinine Ratio 5 (6-20) Glucose Level 476 mg/dL (70-99) Lactic Acid Level 2.0 mmol/L (0.4-2.0) Calcium Level 7.7 mg/dL (8.5-10.1) Magnesium Level 1.7 mg/dL (1.8-2.4) Total Bilirubin 1.1 mg/dL (0.2-1.0) Aspartate Amino Transf (AST/SGOT) 19 U/L (15-37) Alanine Aminotransferase (ALT/SGPT) 14 U/L (14-59) Alkaline Phosphatase 110 U/L (46-116) Creatine Kinase 78 U/L (26-192) Creatine Kinase MB (Mass) 1.6 ng/mL (0.0-3.6) Creatine Kinase MB Relative Index 2.1 % (0-4) Troponin I Quantitative 0.017 ng/mL (0.000-0.055) C-Reactive Protein, Quantitative 55.5 mg/L (0-3.3) ON-Yyh-G-Type Natriuretic Peptide 90023 pg/mL (0-124) Total Protein 6.8 g/dL (6.4-8.2) Albumin 2.2 g/dL (3.4-5.0) Albumin/Globulin Ratio 0.5 (1.0-1.7) Ammonia 47 mcmol/L (11-34) Urine Collection Type Unknown Urine Color Yellow Urine Clarity Hazy Urine pH 5.5 Urine Specific [place] 1.020 Urine Protein 100 mg/dL (NEG-TRACE) Urine Glucose (UA) >=1000 mg/dL (NEG) Urine Ketones (Stick) Negative mg/dL (NEG) Urine Blood Large (NEG) Urine Nitrite Negative (NEG) Urine Bilirubin Negative (NEG) Urine Urobilinogen Dipstick 0.2 mg/dL (0.2 mg/dL) Urine Leukocyte Esterase Moderate (NEG) Urine RBC 3-5 /HPF (0-2) Urine WBC 20-40 /HPF (0-4) Urine Squamous Epithelial Cells Many /LPF Urine Bacteria Many /HPF (0-FEW) Test 10/16/18 04:10 10/16/18 08:03 White Blood Count 6.8 x10^3/uL (4.0-11.0) Red Blood Count 3.37 x10^6/uL (3.50-5.40) Hemoglobin 10.3 g/dL (12.0-15.5) Hematocrit 30.9 % (36.0-47.0) Mean Corpuscular Volume 92 fL (79-100) Mean Corpuscular Hemoglobin 31 pg (25-35) Mean Corpuscular Hemoglobin Concent 34 g/dL (31-37) Red Cell Distribution Width 16.7 % (11.5-14.5) Platelet Count 84 x10^3/uL (140-400) Neutrophils (%) (Auto) 71 % (31-73) Lymphocytes (%) (Auto) 11 % (24-48) Monocytes (%) (Auto) 15 % (0-9) Eosinophils (%) (Auto) 3 % (0-3) Basophils (%) (Auto) 1 % (0-3) Neutrophils # (Auto) 4.8 x10^3uL (1.8-7.7) Lymphocytes # (Auto) 0.7 x10^3/uL (1.0-4.8) Monocytes # (Auto) 1.0 x10^3/uL (0.0-1.1) Eosinophils # (Auto) 0.2 x10^3/uL (0.0-0.7) Basophils # (Auto) 0.1 x10^3/uL (0.0-0.2) Sodium Level 133 mmol/L (136-145) Potassium Level 3.9 mmol/L (3.5-5.1) Chloride Level 96 mmol/L (98-107) Carbon Dioxide Level 24 mmol/L (21-32) Anion Gap 13 (6-14) Blood Urea Nitrogen 26 mg/dL (7-20) Creatinine 5.0 mg/dL (0.6-1.0) Estimated GFR (Cockcroft-Gault) 8.5 BUN/Creatinine Ratio 5 (6-20) Glucose Level 336 mg/dL (70-99) Calcium Level 7.9 mg/dL (8.5-10.1) Total Bilirubin 1.2 mg/dL (0.2-1.0) Aspartate Amino Transf (AST/SGOT) 17 U/L (15-37) Alanine Aminotransferase (ALT/SGPT) 14 U/L (14-59) Alkaline Phosphatase 101 U/L (46-116) Total Protein 7.4 g/dL (6.4-8.2) Albumin 2.2 g/dL (3.4-5.0) Albumin/Globulin Ratio 0.4 (1.0-1.7) Glucose (Fingerstick) 324 mg/dL (70-99) Micro Pseudomonas aeruginosa 4+ AEROBIC RES 2 Final Mixed skin georgi Scant growth ANTIMICROBIAL SUSCEPTIBILITY Final Comment S = Susceptible; I = Intermediate; R = Resistant P = Positive; N = Negative MICS are expressed in micrograms per mL Antibiotic RSLT#1 RSLT#2 RSLT#3 RSLT#4 Amikacin S<=2 Cefepime S =2 Ceftazidime S =4 Ciprofloxacin S<=0.25 Gentamicin S<=1 CONTINUED ON NEXT PAGE RUN DATE: 09/11/18 PAGE 2 RUN TIME: 1724 [facility] [address] [id number] Sebastian Lyons M.D., Housekeeping Staff SPEC: [id number] PATIENT: YIN DIAZ [id number] ( Continued) Procedure Result ANTIMICROBIAL SUSCEPTIBILITY Final (continued) Imipenem S<=1 Levofloxacin S =1 Meropenem S<=0.25 Piperacillin S =8 Ticarcillin S =32 Tobramycin S<=1 Objective Assessment R Foot Dm plantar ulcer - probes to bone Encephalopathy H/o PSA 09/08 CKD on HD cirrhosis Toe cellulitis - healed Shoulder pain - no swelling Plan Plan of Care D/c rocephin Begin Zosyn/Vanc F/u arterial studies F/u labs and cults Await further vascular f/u will likely need I and D Await Ortho eval shoulder D/w Dr. Arango and Gracia HO Thank you # [phone] KJ MEZA MD Oct 16, 2018 11:03
--- NOTE | 2018-10-16 11:14 | NUR ---
SW reviewed pt's medical chart and evaluated for dc needs. Pt is from home with spouse and was admitted chronic abdominal pain and UTI. Pt is current with [facility], phone: [phone], fax: [phone] and will resume services upon dc. Polina with [facility] confirmed plan for resumption. Pt is current with [facility] in [place]. Pt chair time is T, TH, S at 10:15am. SW will be available to resume pt's HH and for any additional dc needs.
--- NOTE | 2018-10-16 11:42 | RAD ---
Right lower extremity arterial ultrasound, 10/16/2018: HISTORY: Chronic diabetic foot ulcer, nonpalpable pulses Duplex evaluation of the major arteries in the right lower extremity was performed including grayscale, color-flow and spectral Doppler analysis. Portions of the exam were compromised by the patient's inability to fully cooperate. There are moderate scattered calcified atherosclerotic plaques. The right common femoral Doppler waveform is triphasic. The right superficial femoral and popliteal Doppler waveforms are predominantly monophasic. No significant focal velocity acceleration is seen through those regions to suggest high-grade focal stenosis. Patent posterior tibial, peroneal and anterior tibial arteries are present in the right lower leg demonstrating good amplitude monophasic Doppler waveforms. The right dorsalis pedis artery is also patent with a monophasic Doppler waveform. Incidental note is made of moderate generalized subcutaneous edema. A prominent lymph node is noted at the right groin measuring 30 x 28 x 9 mm. IMPRESSION: 1. Moderate generalized atherosclerotic plaquing. 2. No high-grade focal femoral-popliteal stenosis is identified. 3. Mild degradation of the distal Doppler waveforms. Electronically signed by: Carlos Solis MD (10/16/2018 11:39 AM) [facility]
[2018-10-16] MEDS: SEVELAMER CARBONATE 800 MG TABLET. PO SCH ×2 (12:00→16:56)
[2018-10-16] MEDS: INSULIN GLARGINE 300 UNITS/3 ML INSULN.PEN. SQ SCH (13:31)
--- NOTE | 2018-10-16 13:34 | PDOC2 ---
CONSULT Date of Consult Date of Consult DATE: 10/16/18 TIME: 13:29 Identification/Chief Complaint Chief Complaint Right shoulder pain and weakness Source Source: Chart review, Patient History of Present Illness Reason for Visit: 73-year-old left-handed woman with complaint of right shoulder pain for about 2 weeks area and she says she fell, while holding onto a handrail and had pain and weakness of the shoulder after that. She think she had an MRI of the shoulder at [facility] but I don't see anything on our system to indicate MRI of the shoulder. She has multiple other comorbidities Past Medical History Cardiovascular: CHF, HTN, Hyperlipidemia Pulmonary: COPD, Pneumonia, Other CENTRAL NERVOUS SYSTEM: CVA, Periperal neuropathy GI: GERD Heme/Onc: Anemia NOS Hepatobiliary: Cirrhosis Psych: Anxiety, Depression Musculoskeletal: Osteoarthritis Rheumatologic: No pertinent hx Infectious disease: No pertinent hx Renal/: Chronic renal failure, UTI Endocrine: Diabetes, Hypothyroidism Past Surgical History Past Surgical History: Hysterectomy Family History Family History: Diabetes Social History No ALCOHOL: none Drugs: None Lives: with Family Current Problem List Problem List Problems Medical Problems: (1) Cirrhosis of liver with ascites Status: Acute (2) Hyperglycemia Status: Acute (3) Open wound of right foot Status: Acute (4) UTI (urinary tract infection) Status: Acute Current Medications Current Medications Current Medications Morphine Sulfate (Morphine Sulfate) 4 mg PRN Q15MIN PRN IV/SQ PAIN GREATER THAN 3/10 Last administered on 10/15/18at 18:50; Start 10/15/18 at 14:15; Stop at 14:14 Insulin Human Regular (HumuLIN R VIAL) 10 unit 1X ONCE IV ; Start 10/15/18 at 16:45; Stop 10/15/18 at 16:46; Status Cancel Insulin Human Regular (HumuLIN R VIAL) 5 unit 1X ONCE IV Last administered on 10/15/18at 17:04; Start 10/15/18 at 17:15; Stop 10/15/18 at 17:16; Status DC Ondansetron HCl (Zofran) 4 mg PRN Q8HRS PRN IV NAUSEA/VOMITING; Start 10/15/18 at 19:15; Stop 10/16/18 at 19:14 Morphine Sulfate (Morphine Sulfate) 4 mg PRN Q2HR PRN IV PAIN; Start 10/15/18 at 19:15; Stop 10/16/18 at 19:14 Insulin Human Lispro (HumaLOG) 0-7 UNITS TIDWMEALS SQ Last administered on 10/16at 08:43; Start 10/16/18 at 08:00 Dextrose (Dextrose 50%-Water Syringe) 12.5 gm PRN Q15MIN PRN IV SEE COMMENTS; Start 10/15/18 at 19:15 Ceftriaxone Sodium (Rocephin) 1 gm Q24H IVP Last administered on 10/15/18at 22: 27; Start 10/15/18 at 20:00; Stop 10/16/18 at 10:39; Status DC Zolpidem Tartrate (Ambien) 5 mg PRN QHS PRN PO INSOMNIA Last administered on at 22:27; Start 10/15/18 at 22:15 Aspirin (Ecotrin) 325 mg DAILYWBKFT PO ; Start 10/16/18 at 10:00 Clonidine HCl (Catapres) 0.2 mg DAILY PO ; Start 10/16/18 at 09:00 Diclofenac Sodium (Voltaren) 1 ronel BID TP ; Start 10/16/18 at 09:00 Famotidine (Pepcid) 20 mg QODAY PO ; Start 10/16/18 at 09:00; Stop 10/16/18 at 09:35; Status DC Gabapentin (Neurontin) 100 mg DAILY PO ; Start 10/16/18 at 09:00 Acetaminophen/ Hydrocodone Bitart (Lortab 5/325) 2 tab PRN Q6HRS PRN PO PAIN; Start 10/16/18 at 08:30 Insulin Glargine (Lantus) 15 units DAILY SQ ; Start 10/16/18 at 09:00 Insulin Human Lispro (HumaLOG) 5 units TIDWMEALS SQ ; Start 10/16/18 at 12:00 Lactobacillus Rhamnosus (Culturelle) 1 cap BID PO ; Start 10/16/18 at 09:00 Lactulose (Lactulose) 10 gm PRN TID PRN PO CONSTIPATION; Start 10/16/18 at 08: 30; Stop 10/16/18 at 09:35; Status DC Levothyroxine Sodium (Synthroid) 125 mcg DAILY06 PO ; Start 10/16/18 at 09:00 Metoprolol Succinate (Toprol Xl) 25 mg DAILY PO ; Start 10/16/18 at 09:00 Rifaximin (Xifaxan) 550 mg BID PO ; Start 10/16/18 at 09:00 Sertraline HCl (Zoloft) 75 mg DAILY PO ; Start 10/16/18 at 09:00 Sevelamer Carbonate (Renvela) 800 mg TIDWMEALS PO ; Start 10/16/18 at 12:00 Isosorbide Mononitrate (Imdur) 30 mg DAILY PO ; Start 10/16/18 at 09:00 Lactulose (Lactulose) 10 gm TID PO ; Start 10/16/18 at 14:00 Rifaximin (Xifaxan) 550 mg Q12HR PO ; Start 10/16/18 at 10:00 Pantoprazole Sodium (Protonix) 40 mg DAILYAC PO ; Start 10/16/18 at 10:00 Piperacillin Sod/ Tazobactam Sod 2.25 gm/Sodium Chloride 50 ml @ 100 mls/hr Q8HRS IV ; Start 10/16/18 at 11:00 Vancomycin HCl (Vanco Per Pharmacy) 1 each PRN DAILY PRN MC SEE COMMENTS; Start 10/16/18 at 10:45 Vancomycin HCl 1.75 gm/Sodium Chloride 500 ml @ 250 mls/hr 1X ONCE IV ; Start 10/16/18 at 11:00; Stop 10/16/18 at 12:59; Status DC Active Scripts Active Zofran (Ondansetron Hcl) 4 Mg Tablet 1 Tab PO Q6HRS Cephalexin 500 Mg Tablet 1 Tab PO BID Humalog (Insulin Lispro) 100 Unit/1 Ml Insuln.pen 5 Units SQ TIDWMEALS 28 Days Culturelle (Lactobacillus Rhamnosus Gg) 1 Each Cap.sprink 1 Cap PO BID 28 Days Lantus Solostar (Insulin Glargine,Hum.rec.anlog) 100 Unit/1 Ml Insuln.pen 15 Units SQ DAILY 28 Days Cipro (Ciprofloxacin Hcl) 250 Mg Tablet 250 Mg PO DAILY 10 Days Lactulose 20 Gm/30 Ml Solution 10 Gm PO PRN TID PRN 10 Days Aspirin Ec (Aspirin) 325 Mg Tablet.dr 325 Mg PO DAILYWBKFT 30 Days Reported Calcium Acetate 667 Mg Tablet 667 Mg PO BID Calcium Acetate 667 Mg Tablet 1,334 Mg PO TIDWMEALS Vitamin D (Cholecalciferol (Vitamin D3)) 50,000 Unit Capsule 50,000 Unit PO DAILY Tizanidine Hcl 2 Mg Capsule 2 Mg PO BID PRN Meclizine Hcl 25 Mg Tablet 1 Tab PO TID Voltaren (Diclofenac Sodium) 100 Gm Gel..gram. 1 Gm TP BID Hydrocodone-Apap 5-325 (Hydrocodone Bit/Acetaminophen) 1 Each Tablet 2 Tab PO PRN Q6HRS PRN Clonidine Hcl 0.2 Mg Tablet 0.2 Mg PO DAILY Gabapentin (Gabapentin) 100 Mg Capsule 100 Mg PO DAILY Zoloft (Sertraline Hcl) 50 Mg Tablet 75 Mg PO DAILY Renvela (Sevelamer Carbonate) 800 Mg Tablet 1 Tab PO TIDWMEALS Levothyroxine Sodium 175 Mcg Tablet 125 Mcg PO DAILYAC Dialyvite [place] D Tablet (Multivitamin, Min Cmb#25/Fa/D3) 1 Each Tablet 1 Each PO DAILY Metoprolol Succinate ( Xl ) (Metoprolol Succinate) 25 Mg Tab.er.24h 25 Mg PO DAILY Ondansetron Hcl 4 Mg Tablet 4 Mg PO Q6HRS PRN Zolpidem Tartrate 5 Mg Tablet 5 Mg PO PRN QHS PRN Famotidine 20 Mg Tablet 20 Mg PO DAILY Xifaxan (Rifaximin) 550 Mg Tablet 1 Tab PO BID Isosorbide Dinitrate 30 Mg Tablet 1 Tab PO DAILY Allergies Allergies: Coded Allergies: adhesive (Verified Allergy, Intermediate, Rash, 10/15/18) TAPE ROS Review of System She denied numbness or tingling in the fingers of the right hand. She denied neck pain other than slight radiation from the right shoulder to the neck. She said the shoulder is painful for range of motion, and is weak Physical Exam General: Alert, Cooperative HEENT: Atraumatic Lungs: Normal air movement Heart: Regular rate Abdomen: Soft Extremities: Other (the right shoulder is tender to palpation around the greater tuberosity and rotator cuff. The gross alignment is normal and there is no effusion or erythema. Passive range of motion is very limited, and was painful at the extremes, only about 40 forward flexion and 40 of abduction before it got quite painful and she said "I'm going to hit you if you continue" . She has a pulsatile dialysis shunt in the right upper arm near the distal biceps, anterior humerus antecubital fossa region. The biceps tendon seems to be intact to resisted motion, and there does not seem to be pain or deformity at the elbow. Her distal sensation and motor function are preserved.) Neuro: Normal speech, Normal tone MUSCULOSKELETAL: Abnormal exam of right (shoulder. Weak active range of motion and painful passive range of motion. Difficult examination. Skin intact. No obvious infection.) Vitals VITALS Vital Signs Date Time Temp Pulse Resp B/P (MAP) Pulse Ox O2 Delivery O2 Flow Rate FiO2 10/16/18 11:00 97.8 75 18 142/58 (86) 94 Room Air 97.8 Labs Labs Laboratory Tests Test 10/15/18 13:41 10/15/18 13:50 10/15/18 15:00 10/15/18 15:41 Glucose (Fingerstick) 440 mg/dL (70-99) White Blood Count 4.9 x10^3/uL (4.0-11.0) Red Blood Count 3.24 x10^6/uL (3.50-5.40) Hemoglobin 10.0 g/dL (12.0-15.5) Hematocrit 29.9 % (36.0-47.0) Mean Corpuscular Volume 92 fL (79-100) Mean Corpuscular Hemoglobin 31 pg (25-35) Mean Corpuscular Hemoglobin Concent 34 g/dL (31-37) Red Cell Distribution Width 16.8 % (11.5-14.5) Platelet Count 71 x10^3/uL (140-400) Neutrophils (%) (Auto) 71 % (31-73) Lymphocytes (%) (Auto) 10 % (24-48) Monocytes (%) (Auto) 16 % (0-9) Eosinophils (%) (Auto) 2 % (0-3) Basophils (%) (Auto) 1 % (0-3) Neutrophils # (Auto) 3.5 x10^3uL (1.8-7.7) Lymphocytes # (Auto) 0.5 x10^3/uL (1.0-4.8) Monocytes # (Auto) 0.8 x10^3/uL (0.0-1.1) Eosinophils # (Auto) 0.1 x10^3/uL (0.0-0.7) Basophils # (Auto) 0.1 x10^3/uL (0.0-0.2) Erythrocyte Sedimentation Rate 30 (0-25) Sodium Level 134 mmol/L (136-145) Potassium Level 3.9 mmol/L (3.5-5.1) Chloride Level 95 mmol/L (98-107) Carbon Dioxide Level 26 mmol/L (21-32) Anion Gap 13 (6-14) Blood Urea Nitrogen 23 mg/dL (7-20) Creatinine 4.7 mg/dL (0.6-1.0) Estimated GFR (Cockcroft-Gault) 9.1 BUN/Creatinine Ratio 5 (6-20) Glucose Level 476 mg/dL (70-99) Lactic Acid Level 2.0 mmol/L (0.4-2.0) Calcium Level 7.7 mg/dL (8.5-10.1) Magnesium Level 1.7 mg/dL (1.8-2.4) Total Bilirubin 1.1 mg/dL (0.2-1.0) Aspartate Amino Transf (AST/SGOT) 19 U/L (15-37) Alanine Aminotransferase (ALT/SGPT) 14 U/L (14-59) Alkaline Phosphatase 110 U/L (46-116) Creatine Kinase 78 U/L (26-192) Creatine Kinase MB (Mass) 1.6 ng/mL (0.0-3.6) Creatine Kinase MB Relative Index 2.1 % (0-4) Troponin I Quantitative 0.017 ng/mL (0.000-0.055) C-Reactive Protein, Quantitative 55.5 mg/L (0-3.3) DI-Xki-T-Type Natriuretic Peptide 12497 pg/mL (0-124) Total Protein 6.8 g/dL (6.4-8.2) Albumin 2.2 g/dL (3.4-5.0) Albumin/Globulin Ratio 0.5 (1.0-1.7) Ammonia 47 mcmol/L (11-34) Urine Collection Type Unknown Urine Color Yellow Urine Clarity Hazy Urine pH 5.5 Urine Specific [place] 1.020 Urine Protein 100 mg/dL (NEG-TRACE) Urine Glucose (UA) >=1000 mg/dL (NEG) Urine Ketones (Stick) Negative mg/dL (NEG) Urine Blood Large (NEG) Urine Nitrite Negative (NEG) Urine Bilirubin Negative (NEG) Urine Urobilinogen Dipstick 0.2 mg/dL (0.2 mg/dL) Urine Leukocyte Esterase Moderate (NEG) Urine RBC 3-5 /HPF (0-2) Urine WBC 20-40 /HPF (0-4) Urine Squamous Epithelial Cells Many /LPF Urine Bacteria Many /HPF (0-FEW) Test 10/16/18 04:10 10/16/18 08:03 10/16/18 11:17 White Blood Count 6.8 x10^3/uL (4.0-11.0) Red Blood Count 3.37 x10^6/uL (3.50-5.40) Hemoglobin 10.3 g/dL (12.0-15.5) Hematocrit 30.9 % (36.0-47.0) Mean Corpuscular Volume 92 fL (79-100) Mean Corpuscular Hemoglobin 31 pg (25-35) Mean Corpuscular Hemoglobin Concent 34 g/dL (31-37) Red Cell Distribution Width 16.7 % (11.5-14.5) Platelet Count 84 x10^3/uL (140-400) Neutrophils (%) (Auto) 71 % (31-73) Lymphocytes (%) (Auto) 11 % (24-48) Monocytes (%) (Auto) 15 % (0-9) Eosinophils (%) (Auto) 3 % (0-3) Basophils (%) (Auto) 1 % (0-3) Neutrophils # (Auto) 4.8 x10^3uL (1.8-7.7) Lymphocytes # (Auto) 0.7 x10^3/uL (1.0-4.8) Monocytes # (Auto) 1.0 x10^3/uL (0.0-1.1) Eosinophils # (Auto) 0.2 x10^3/uL (0.0-0.7) Basophils # (Auto) 0.1 x10^3/uL (0.0-0.2) Sodium Level 133 mmol/L (136-145) Potassium Level 3.9 mmol/L (3.5-5.1) Chloride Level 96 mmol/L (98-107) Carbon Dioxide Level 24 mmol/L (21-32) Anion Gap 13 (6-14) Blood Urea Nitrogen 26 mg/dL (7-20) Creatinine 5.0 mg/dL (0.6-1.0) Estimated GFR (Cockcroft-Gault) 8.5 BUN/Creatinine Ratio 5 (6-20) Glucose Level 336 mg/dL (70-99) Calcium Level 7.9 mg/dL (8.5-10.1) Total Bilirubin 1.2 mg/dL (0.2-1.0) Aspartate Amino Transf (AST/SGOT) 17 U/L (15-37) Alanine Aminotransferase (ALT/SGPT) 14 U/L (14-59) Alkaline Phosphatase 101 U/L (46-116) Total Protein 7.4 g/dL (6.4-8.2) Albumin 2.2 g/dL (3.4-5.0) Albumin/Globulin Ratio 0.4 (1.0-1.7) Glucose (Fingerstick) 324 mg/dL (70-99) 293 mg/dL (70-99) Laboratory Tests Test 10/15/18 13:41 10/15/18 13:50 10/15/18 15:00 10/15/18 15:41 Glucose (Fingerstick) 440 mg/dL (70-99) White Blood Count 4.9 x10^3/uL (4.0-11.0) Red Blood Count 3.24 x10^6/uL (3.50-5.40) Hemoglobin 10.0 g/dL (12.0-15.5) Hematocrit 29.9 % (36.0-47.0) Mean Corpuscular Volume 92 fL (79-100) Mean Corpuscular Hemoglobin 31 pg (25-35) Mean Corpuscular Hemoglobin Concent 34 g/dL (31-37) Red Cell Distribution Width 16.8 % (11.5-14.5) Platelet Count 71 x10^3/uL (140-400) Neutrophils (%) (Auto) 71 % (31-73) Lymphocytes (%) (Auto) 10 % (24-48) Monocytes (%) (Auto) 16 % (0-9) Eosinophils (%) (Auto) 2 % (0-3) Basophils (%) (Auto) 1 % (0-3) Neutrophils # (Auto) 3.5 x10^3uL (1.8-7.7) Lymphocytes # (Auto) 0.5 x10^3/uL (1.0-4.8) Monocytes # (Auto) 0.8 x10^3/uL (0.0-1.1) Eosinophils # (Auto) 0.1 x10^3/uL (0.0-0.7) Basophils # (Auto) 0.1 x10^3/uL (0.0-0.2) Erythrocyte Sedimentation Rate 30 (0-25) Sodium Level 134 mmol/L (136-145) Potassium Level 3.9 mmol/L (3.5-5.1) Chloride Level 95 mmol/L (98-107) Carbon Dioxide Level 26 mmol/L (21-32) Anion Gap 13 (6-14) Blood Urea Nitrogen 23 mg/dL (7-20) Creatinine 4.7 mg/dL (0.6-1.0) Estimated GFR (Cockcroft-Gault) 9.1 BUN/Creatinine Ratio 5 (6-20) Glucose Level 476 mg/dL (70-99) Lactic Acid Level 2.0 mmol/L (0.4-2.0) Calcium Level 7.7 mg/dL (8.5-10.1) Magnesium Level 1.7 mg/dL (1.8-2.4) Total Bilirubin 1.1 mg/dL (0.2-1.0) Aspartate Amino Transf (AST/SGOT) 19 U/L (15-37) Alanine Aminotransferase (ALT/SGPT) 14 U/L (14-59) Alkaline Phosphatase 110 U/L (46-116) Creatine Kinase 78 U/L (26-192) Creatine Kinase MB (Mass) 1.6 ng/mL (0.0-3.6) Creatine Kinase MB Relative Index 2.1 % (0-4) Troponin I Quantitative 0.017 ng/mL (0.000-0.055) C-Reactive Protein, Quantitative 55.5 mg/L (0-3.3) IZ-Hyw-Z-Type Natriuretic Peptide 58582 pg/mL (0-124) Total Protein 6.8 g/dL (6.4-8.2) Albumin 2.2 g/dL (3.4-5.0) Albumin/Globulin Ratio 0.5 (1.0-1.7) Ammonia 47 mcmol/L (11-34) Urine Collection Type Unknown Urine Color Yellow Urine Clarity Hazy Urine pH 5.5 Urine Specific [place] 1.020 Urine Protein 100 mg/dL (NEG-TRACE) Urine Glucose (UA) >=1000 mg/dL (NEG) Urine Ketones (Stick) Negative mg/dL (NEG) Urine Blood Large (NEG) Urine Nitrite Negative (NEG) Urine Bilirubin Negative (NEG) Urine Urobilinogen Dipstick 0.2 mg/dL (0.2 mg/dL) Urine Leukocyte Esterase Moderate (NEG) Urine RBC 3-5 /HPF (0-2) Urine WBC 20-40 /HPF (0-4) Urine Squamous Epithelial Cells Many /LPF Urine Bacteria Many /HPF (0-FEW) Test 10/16/18 04:10 10/16/18 08:03 10/16/18 11:17 White Blood Count 6.8 x10^3/uL (4.0-11.0) Red Blood Count 3.37 x10^6/uL (3.50-5.40) Hemoglobin 10.3 g/dL (12.0-15.5) Hematocrit 30.9 % (36.0-47.0) Mean Corpuscular Volume 92 fL (79-100) Mean Corpuscular Hemoglobin 31 pg (25-35) Mean Corpuscular Hemoglobin Concent 34 g/dL (31-37) Red Cell Distribution Width 16.7 % (11.5-14.5) Platelet Count 84 x10^3/uL (140-400) Neutrophils (%) (Auto) 71 % (31-73) Lymphocytes (%) (Auto) 11 % (24-48) Monocytes (%) (Auto) 15 % (0-9) Eosinophils (%) (Auto) 3 % (0-3) Basophils (%) (Auto) 1 % (0-3) Neutrophils # (Auto) 4.8 x10^3uL (1.8-7.7) Lymphocytes # (Auto) 0.7 x10^3/uL (1.0-4.8) Monocytes # (Auto) 1.0 x10^3/uL (0.0-1.1) Eosinophils # (Auto) 0.2 x10^3/uL (0.0-0.7) Basophils # (Auto) 0.1 x10^3/uL (0.0-0.2) Sodium Level 133 mmol/L (136-145) Potassium Level 3.9 mmol/L (3.5-5.1) Chloride Level 96 mmol/L (98-107) Carbon Dioxide Level 24 mmol/L (21-32) Anion Gap 13 (6-14) Blood Urea Nitrogen 26 mg/dL (7-20) Creatinine 5.0 mg/dL (0.6-1.0) Estimated GFR (Cockcroft-Gault) 8.5 BUN/Creatinine Ratio 5 (6-20) Glucose Level 336 mg/dL (70-99) Calcium Level 7.9 mg/dL (8.5-10.1) Total Bilirubin 1.2 mg/dL (0.2-1.0) Aspartate Amino Transf (AST/SGOT) 17 U/L (15-37) Alanine Aminotransferase (ALT/SGPT) 14 U/L (14-59) Alkaline Phosphatase 101 U/L (46-116) Total Protein 7.4 g/dL (6.4-8.2) Albumin 2.2 g/dL (3.4-5.0) Albumin/Globulin Ratio 0.4 (1.0-1.7) Glucose (Fingerstick) 324 mg/dL (70-99) 293 mg/dL (70-99) Images Images Plain x-rays of the shoulder were normal. Images and report reviewed. I don't see evidence of an MRI of the shoulder. Indication:WEAKNESS, NAUSEA, RT SHOULDER PAIN. NO KNOWN INJURY TECHNIQUE: 3 views of the right shoulder COMPARISON:None FINDINGS/impression:No acute fracture or dislocation. No significant arthritic changes. Electronically signed by: Dale Francois DO (10/15/2018 2:41 PM) [id number] DICTATED and SIGNED BY: DALE FRANCOIS DO DATE: 10/15/18 1439 Assessment/Plan Assessment/Plan Right shoulder pain and weakness. Recent injury. I suspect a significant rotator cuff tear. Difficult examination. I recommended MRI. I spoke to her about obtaining an MRI during this hospitalization and she is agreeable to me ordering an MRI. BLAINE HURTADO MD Oct 16, 2018 13:34
[2018-10-16] MEDS: cloNIDine HCL 0.2 MG TABLET PO SCH (13:40)
[2018-10-16] MEDS: GABAPENTIN 100 MG CAPSULE. PO SCH (13:41)
[2018-10-16] MEDS: METOPROLOL SUCC 24HR ER 25 MG TAB.ER.24H. PO SCH (13:41)
[2018-10-16] MEDS: LACTOBACILLUS RHAMNOSUS GG 1 CAPSULE. PO SCH ×2 (13:42→20:52)
[2018-10-16] MEDS: ISOSORBIDE MONONITRATE ER 30 MG TAB.ER.24H PO SCH (13:42)
[2018-10-16] MEDS: PANTOPRAZOLE 40 MG TABLET.DR. PO SCH (13:42)
[2018-10-16] MEDS: SERTRALINE 50 MG TABLET. PO SCH (13:42)
[2018-10-16] MEDS: LEVOTHYROXINE 125 MCG TABLET PO SCH (13:43)
[2018-10-16] MEDS: ASPIRIN ENTERIC COATED 325 MG TABLET.DR. PO SCH (13:43)
[2018-10-16] MEDS: PIPERACILLIN/TAZOBACTAM 2.25 GM in IV NORMAL SALINE 50ML 50 ML IV SCH ×3 (13:47→20:52)
--- NOTE | 2018-10-16 14:31 | PDOC2 ---
CONSULT Date of Consult Date of Consult DATE: 10/16/18 TIME: 14:19 Reason for Consult Reason for Consult: ESRD TTS Identification/Chief Complaint Chief Complaint Sleepy Source Source: Chart review History of Present Illness Reason for Visit: 73 y/oCF ESRD on HD TTS very drowsy this morning, has difficulty keeping her eyes open during the interview - Ambien and morphine last night. She Came to ER w/ shoulder and abd pain yesterday H/o cirrhosis (suspected BILLINGS - viral hepatitis negative in the past along w/ JULES), ascites and paracentesis, and hepatic encephalopathy. ACD w/ past hematology eval and bone marrow biopsy. EGD (Dr. Nuno) in 2006 w/ single non-bleeding ulcer. No record of colonoscopy. Has cancelled several GI office visits . Compliiance issues with HD as well, misses treatments No CP, SOB, Lying flat, RA. Past Medical History Cardiovascular: CHF, HTN, Hyperlipidemia Pulmonary: COPD, Pneumonia, Other CENTRAL NERVOUS SYSTEM: CVA, Periperal neuropathy GI: GERD Heme/Onc: Anemia NOS Hepatobiliary: Cirrhosis Psych: Anxiety, Depression Musculoskeletal: Osteoarthritis Rheumatologic: No pertinent hx Infectious disease: No pertinent hx Renal/: Chronic renal failure, UTI Endocrine: Diabetes, Hypothyroidism Past Surgical History Past Surgical History: Hysterectomy Family History Family History: Diabetes Social History No ALCOHOL: none Drugs: None Lives: with Family Current Problem List Problem List Problems Medical Problems: (1) Cirrhosis of liver with ascites Status: Acute (2) Hyperglycemia Status: Acute (3) Open wound of right foot Status: Acute (4) UTI (urinary tract infection) Status: Acute Current Medications Current Medications Current Medications Morphine Sulfate (Morphine Sulfate) 4 mg PRN Q15MIN PRN IV/SQ PAIN GREATER THAN 3/10 Last administered on 10/15/18at 18:50; Start 10/15/18 at 14:15; Stop at 14:14; Status DC Insulin Human Regular (HumuLIN R VIAL) 10 unit 1X ONCE IV ; Start 10/15/18 at 16:45; Stop 10/15/18 at 16:46; Status Cancel Insulin Human Regular (HumuLIN R VIAL) 5 unit 1X ONCE IV Last administered on 10/15/18at 17:04; Start 10/15/18 at 17:15; Stop 10/15/18 at 17:16; Status DC Ondansetron HCl (Zofran) 4 mg PRN Q8HRS PRN IV NAUSEA/VOMITING; Start 10/15/18 at 19:15; Stop 10/16/18 at 19:14 Morphine Sulfate (Morphine Sulfate) 4 mg PRN Q2HR PRN IV PAIN; Start 10/15/18 at 19:15; Stop 10/16/18 at 19:14 Insulin Human Lispro (HumaLOG) 0-7 UNITS TIDWMEALS SQ Last administered on 10/16at 13:30; Start 10/16/18 at 08:00 Dextrose (Dextrose 50%-Water Syringe) 12.5 gm PRN Q15MIN PRN IV SEE COMMENTS; Start 10/15/18 at 19:15 Ceftriaxone Sodium (Rocephin) 1 gm Q24H IVP Last administered on 10/15/18at 22: 27; Start 10/15/18 at 20:00; Stop 10/16/18 at 10:39; Status DC Zolpidem Tartrate (Ambien) 5 mg PRN QHS PRN PO INSOMNIA Last administered on at 22:27; Start 10/15/18 at 22:15 Aspirin (Ecotrin) 325 mg DAILYWBKFT PO Last administered on 10/16/18at 13:43; Start 10/16/18 at 10:00 Clonidine HCl (Catapres) 0.2 mg DAILY PO Last administered on 10/16/18 13:40; Start 10/16/18 at 09:00 Diclofenac Sodium (Voltaren) 1 ronel BID TP Last administered on 10/16/18at 09:00 ; Start 10/16/18 at 09:00 Famotidine (Pepcid) 20 mg QODAY PO ; Start 10/16/18 at 09:00; Stop 10/16/18 at 09:35; Status DC Gabapentin (Neurontin) 100 mg DAILY PO Last administered on 10/16/18at 13:41; Start 10/16/18 at 09:00 Acetaminophen/ Hydrocodone Bitart (Lortab 5/325) 2 tab PRN Q6HRS PRN PO PAIN; Start 10/16/18 at 08:30 Insulin Glargine (Lantus) 15 units DAILY SQ Last administered on 10/16/18at 13: 31; Start 10/16/18 at 09:00 Insulin Human Lispro (HumaLOG) 5 units TIDWMEALS SQ Last administered on 13:29; Start 10/16/18 at 12:00 Lactobacillus Rhamnosus (Culturelle) 1 cap BID PO Last administered on 13:42; Start 10/16/18 at 09:00 Lactulose (Lactulose) 10 gm PRN TID PRN PO CONSTIPATION; Start 10/16/18 at 08: 30; Stop 10/16/18 at 09:35; Status DC Levothyroxine Sodium (Synthroid) 125 mcg DAILY06 PO Last administered on 13:43; Start 10/16/18 at 09:00 Metoprolol Succinate (Toprol Xl) 25 mg DAILY PO Last administered on 10/16/18 13:41; Start 10/16/18 at 09:00 Rifaximin (Xifaxan) 550 mg BID PO Last administered on 10/16/18 13:40; Start 10/16/18 at 09:00 Sertraline HCl (Zoloft) 75 mg DAILY PO Last administered on 10/16/18 13:42; Start 10/16/18 at 09:00 Sevelamer Carbonate (Renvela) 800 mg TIDWMEALS PO ; Start 10/16/18 at 12:00 Isosorbide Mononitrate (Imdur) 30 mg DAILY PO Last administered on 10/16/18 13 :42; Start 10/16/18 at 09:00 Lactulose (Lactulose) 10 gm TID PO ; Start 10/16/18 at 14:00 Rifaximin (Xifaxan) 550 mg Q12HR PO ; Start 10/16/18 at 10:00 Pantoprazole Sodium (Protonix) 40 mg DAILYAC PO Last administered on 10/16/18 13:42; Start 10/16/18 at 10:00 Piperacillin Sod/ Tazobactam Sod 2.25 gm/Sodium Chloride 50 ml @ 100 mls/hr Q8HRS IV Last administered on 10/16/18at 13:47; Start 10/16/18 at 11:00 Vancomycin HCl (Vanco Per Pharmacy) 1 each PRN DAILY PRN MC SEE COMMENTS; Start 10/16/18 at 10:45 Vancomycin HCl 1.75 gm/Sodium Chloride 500 ml @ 250 mls/hr 1X ONCE IV ; Start 10/16/18 at 11:00; Stop 10/16/18 at 12:59; Status DC Active Scripts Active Zofran (Ondansetron Hcl) 4 Mg Tablet 1 Tab PO Q6HRS Cephalexin 500 Mg Tablet 1 Tab PO BID Humalog (Insulin Lispro) 100 Unit/1 Ml Insuln.pen 5 Units SQ TIDWMEALS 28 Days Culturelle (Lactobacillus Rhamnosus Gg) 1 Each Cap.sprink 1 Cap PO BID 28 Days Lantus Solostar (Insulin Glargine,Hum.rec.anlog) 100 Unit/1 Ml Insuln.pen 15 Units SQ DAILY 28 Days Cipro (Ciprofloxacin Hcl) 250 Mg Tablet 250 Mg PO DAILY 10 Days Lactulose 20 Gm/30 Ml Solution 10 Gm PO PRN TID PRN 10 Days Aspirin Ec (Aspirin) 325 Mg Tablet.dr 325 Mg PO DAILYWBKFT 30 Days Reported Calcium Acetate 667 Mg Tablet 667 Mg PO BID Calcium Acetate 667 Mg Tablet 1,334 Mg PO TIDWMEALS Vitamin D (Cholecalciferol (Vitamin D3)) 50,000 Unit Capsule 50,000 Unit PO DAILY Tizanidine Hcl 2 Mg Capsule 2 Mg PO BID PRN Meclizine Hcl 25 Mg Tablet 1 Tab PO TID Voltaren (Diclofenac Sodium) 100 Gm Gel..gram. 1 Gm TP BID Hydrocodone-Apap 5-325 (Hydrocodone Bit/Acetaminophen) 1 Each Tablet 2 Tab PO PRN Q6HRS PRN Clonidine Hcl 0.2 Mg Tablet 0.2 Mg PO DAILY Gabapentin (Gabapentin) 100 Mg Capsule 100 Mg PO DAILY Zoloft (Sertraline Hcl) 50 Mg Tablet 75 Mg PO DAILY Renvela (Sevelamer Carbonate) 800 Mg Tablet 1 Tab PO TIDWMEALS Levothyroxine Sodium 175 Mcg Tablet 125 Mcg PO DAILYAC Dialyvite [place] D Tablet (Multivitamin, Min Cmb#25/Fa/D3) 1 Each Tablet 1 Each PO DAILY Metoprolol Succinate ( Xl ) (Metoprolol Succinate) 25 Mg Tab.er.24h 25 Mg PO DAILY Ondansetron Hcl 4 Mg Tablet 4 Mg PO Q6HRS PRN Zolpidem Tartrate 5 Mg Tablet 5 Mg PO PRN QHS PRN Famotidine 20 Mg Tablet 20 Mg PO DAILY Xifaxan (Rifaximin) 550 Mg Tablet 1 Tab PO BID Isosorbide Dinitrate 30 Mg Tablet 1 Tab PO DAILY Allergies Allergies: Coded Allergies: adhesive (Verified Allergy, Intermediate, Rash, 10/15/18) TAPE ROS Review of System As per HPI Physical Exam Physical Exam General: Alert, Oriented X3, Cooperative, moderate distress HEENT: Atraumatic, PERRLA, Other Neck supple Lungs: Clear to auscultation, Normal air movement Abdomen: Soft (tender, diffuse right to mid-epigastrum. large ventral hernia , obese, ) Extremities: No cyanosis, Other (redness, and swelling to bilat feet, wound to right foot in bandaged) Skin: No rashes, No significant lesion Neuro: Normal speech, Normal tone, Cranial nerves 3-12 NL No fairchild Vital Signs Vital Signs Date Time Temp Pulse Resp B/P (MAP) Pulse Ox O2 Delivery O2 Flow Rate FiO2 10/16/18 13:42 75 142/58 10/16/18 11:00 97.8 18 94 Room Air 97.8 Assessment & Plan ESRD - HD TTS at [facility] Missed treatments Labs and Vol status stable Currently No Indication for HD today Tomorrow as per her schedule Right shoulder pain and weakness- Recent injury- Ortho consulted MRI as per Ortho Chronic DM right foot plantar ulcer that penetrates to bone- chronic MRI on 09/07/18 No osteomyelitis. Vascular following Cirrhosis, h/o ascites/paracentesis, h/o hepatic encephalopathy portal hypertension noted on CT, small ascites ammonia 47 Labs Labs Laboratory Tests Test 10/15/18 13:41 10/15/18 13:50 10/15/18 15:00 10/15/18 15:41 Glucose (Fingerstick) 440 mg/dL (70-99) White Blood Count 4.9 x10^3/uL (4.0-11.0) Red Blood Count 3.24 x10^6/uL (3.50-5.40) Hemoglobin 10.0 g/dL (12.0-15.5) Hematocrit 29.9 % (36.0-47.0) Mean Corpuscular Volume 92 fL (79-100) Mean Corpuscular Hemoglobin 31 pg (25-35) Mean Corpuscular Hemoglobin Concent 34 g/dL (31-37) Red Cell Distribution Width 16.8 % (11.5-14.5) Platelet Count 71 x10^3/uL (140-400) Neutrophils (%) (Auto) 71 % (31-73) Lymphocytes (%) (Auto) 10 % (24-48) Monocytes (%) (Auto) 16 % (0-9) Eosinophils (%) (Auto) 2 % (0-3) Basophils (%) (Auto) 1 % (0-3) Neutrophils # (Auto) 3.5 x10^3uL (1.8-7.7) Lymphocytes # (Auto) 0.5 x10^3/uL (1.0-4.8) Monocytes # (Auto) 0.8 x10^3/uL (0.0-1.1) Eosinophils # (Auto) 0.1 x10^3/uL (0.0-0.7) Basophils # (Auto) 0.1 x10^3/uL (0.0-0.2) Erythrocyte Sedimentation Rate 30 (0-25) Sodium Level 134 mmol/L (136-145) Potassium Level 3.9 mmol/L (3.5-5.1) Chloride Level 95 mmol/L (98-107) Carbon Dioxide Level 26 mmol/L (21-32) Anion Gap 13 (6-14) Blood Urea Nitrogen 23 mg/dL (7-20) Creatinine 4.7 mg/dL (0.6-1.0) Estimated GFR (Cockcroft-Gault) 9.1 BUN/Creatinine Ratio 5 (6-20) Glucose Level 476 mg/dL (70-99) Lactic Acid Level 2.0 mmol/L (0.4-2.0) Calcium Level 7.7 mg/dL (8.5-10.1) Magnesium Level 1.7 mg/dL (1.8-2.4) Total Bilirubin 1.1 mg/dL (0.2-1.0) Aspartate Amino Transf (AST/SGOT) 19 U/L (15-37) Alanine Aminotransferase (ALT/SGPT) 14 U/L (14-59) Alkaline Phosphatase 110 U/L (46-116) Creatine Kinase 78 U/L (26-192) Creatine Kinase MB (Mass) 1.6 ng/mL (0.0-3.6) Creatine Kinase MB Relative Index 2.1 % (0-4) Troponin I Quantitative 0.017 ng/mL (0.000-0.055) C-Reactive Protein, Quantitative 55.5 mg/L (0-3.3) LE-Nab-R-Type Natriuretic Peptide 42568 pg/mL (0-124) Total Protein 6.8 g/dL (6.4-8.2) Albumin 2.2 g/dL (3.4-5.0) Albumin/Globulin Ratio 0.5 (1.0-1.7) Ammonia 47 mcmol/L (11-34) Urine Collection Type Unknown Urine Color Yellow Urine Clarity Hazy Urine pH 5.5 Urine Specific [place] 1.020 Urine Protein 100 mg/dL (NEG-TRACE) Urine Glucose (UA) >=1000 mg/dL (NEG) Urine Ketones (Stick) Negative mg/dL (NEG) Urine Blood Large (NEG) Urine Nitrite Negative (NEG) Urine Bilirubin Negative (NEG) Urine Urobilinogen Dipstick 0.2 mg/dL (0.2 mg/dL) Urine Leukocyte Esterase Moderate (NEG) Urine RBC 3-5 /HPF (0-2) Urine WBC 20-40 /HPF (0-4) Urine Squamous Epithelial Cells Many /LPF Urine Bacteria Many /HPF (0-FEW) Test 10/16/18 04:10 10/16/18 08:03 10/16/18 11:17 White Blood Count 6.8 x10^3/uL (4.0-11.0) Red Blood Count 3.37 x10^6/uL (3.50-5.40) Hemoglobin 10.3 g/dL (12.0-15.5) Hematocrit 30.9 % (36.0-47.0) Mean Corpuscular Volume 92 fL (79-100) Mean Corpuscular Hemoglobin 31 pg (25-35) Mean Corpuscular Hemoglobin Concent 34 g/dL (31-37) Red Cell Distribution Width 16.7 % (11.5-14.5) Platelet Count 84 x10^3/uL (140-400) Neutrophils (%) (Auto) 71 % (31-73) Lymphocytes (%) (Auto) 11 % (24-48) Monocytes (%) (Auto) 15 % (0-9) Eosinophils (%) (Auto) 3 % (0-3) Basophils (%) (Auto) 1 % (0-3) Neutrophils # (Auto) 4.8 x10^3uL (1.8-7.7) Lymphocytes # (Auto) 0.7 x10^3/uL (1.0-4.8) Monocytes # (Auto) 1.0 x10^3/uL (0.0-1.1) Eosinophils # (Auto) 0.2 x10^3/uL (0.0-0.7) Basophils # (Auto) 0.1 x10^3/uL (0.0-0.2) Sodium Level 133 mmol/L (136-145) Potassium Level 3.9 mmol/L (3.5-5.1) Chloride Level 96 mmol/L (98-107) Carbon Dioxide Level 24 mmol/L (21-32) Anion Gap 13 (6-14) Blood Urea Nitrogen 26 mg/dL (7-20) Creatinine 5.0 mg/dL (0.6-1.0) Estimated GFR (Cockcroft-Gault) 8.5 BUN/Creatinine Ratio 5 (6-20) Glucose Level 336 mg/dL (70-99) Calcium Level 7.9 mg/dL (8.5-10.1) Total Bilirubin 1.2 mg/dL (0.2-1.0) Aspartate Amino Transf (AST/SGOT) 17 U/L (15-37) Alanine Aminotransferase (ALT/SGPT) 14 U/L (14-59) Alkaline Phosphatase 101 U/L (46-116) Total Protein 7.4 g/dL (6.4-8.2) Albumin 2.2 g/dL (3.4-5.0) Albumin/Globulin Ratio 0.4 (1.0-1.7) Glucose (Fingerstick) 324 mg/dL (70-99) 293 mg/dL (70-99) Laboratory Tests Test 10/15/18 15:00 10/15/18 15:41 10/16/18 04:10 10/16/18 08:03 Ammonia 47 mcmol/L (11-34) Urine Collection Type Unknown Urine Color Yellow Urine Clarity Hazy Urine pH 5.5 Urine Specific [place] 1.020 Urine Protein 100 mg/dL (NEG-TRACE) Urine Glucose (UA) >=1000 mg/dL (NEG) Urine Ketones (Stick) Negative mg/dL (NEG) Urine Blood Large (NEG) Urine Nitrite Negative (NEG) Urine Bilirubin Negative (NEG) Urine Urobilinogen Dipstick 0.2 mg/dL (0.2 mg/dL) Urine Leukocyte Esterase Moderate (NEG) Urine RBC 3-5 /HPF (0-2) Urine WBC 20-40 /HPF (0-4) Urine Squamous Epithelial Cells Many /LPF Urine Bacteria Many /HPF (0-FEW) White Blood Count 6.8 x10^3/uL (4.0-11.0) Red Blood Count 3.37 x10^6/uL (3.50-5.40) Hemoglobin 10.3 g/dL (12.0-15.5) Hematocrit 30.9 % (36.0-47.0) Mean Corpuscular Volume 92 fL (79-100) Mean Corpuscular Hemoglobin 31 pg (25-35) Mean Corpuscular Hemoglobin Concent 34 g/dL (31-37) Red Cell Distribution Width 16.7 % (11.5-14.5) Platelet Count 84 x10^3/uL (140-400) Neutrophils (%) (Auto) 71 % (31-73) Lymphocytes (%) (Auto) 11 % (24-48) Monocytes (%) (Auto) 15 % (0-9) Eosinophils (%) (Auto) 3 % (0-3) Basophils (%) (Auto) 1 % (0-3) Neutrophils # (Auto) 4.8 x10^3uL (1.8-7.7) Lymphocytes # (Auto) 0.7 x10^3/uL (1.0-4.8) Monocytes # (Auto) 1.0 x10^3/uL (0.0-1.1) Eosinophils # (Auto) 0.2 x10^3/uL (0.0-0.7) Basophils # (Auto) 0.1 x10^3/uL (0.0-0.2) Sodium Level 133 mmol/L (136-145) Potassium Level 3.9 mmol/L (3.5-5.1) Chloride Level 96 mmol/L (98-107) Carbon Dioxide Level 24 mmol/L (21-32) Anion Gap 13 (6-14) Blood Urea Nitrogen 26 mg/dL (7-20) Creatinine 5.0 mg/dL (0.6-1.0) Estimated GFR (Cockcroft-Gault) 8.5 BUN/Creatinine Ratio 5 (6-20) Glucose Level 336 mg/dL (70-99) Calcium Level 7.9 mg/dL (8.5-10.1) Total Bilirubin 1.2 mg/dL (0.2-1.0) Aspartate Amino Transf (AST/SGOT) 17 U/L (15-37) Alanine Aminotransferase (ALT/SGPT) 14 U/L (14-59) Alkaline Phosphatase 101 U/L (46-116) Total Protein 7.4 g/dL (6.4-8.2) Albumin 2.2 g/dL (3.4-5.0) Albumin/Globulin Ratio 0.4 (1.0-1.7) Glucose (Fingerstick) 324 mg/dL (70-99) Test 10/16/18 11:17 Glucose (Fingerstick) 293 mg/dL (70-99) Review All relevant outside records, renal labs, imaging studies, telemetry/EKG's were reviewed. ALE YEH MD Oct 16, 2018 14:31
--- NOTE | 2018-10-16 14:52 | NUR ---
wound care patient seen per wound care consult. see wound assessment. patient has a DFU to the right plantar foot, the wound was cleaned, measured and redressed with recommendations of packing with Aquacel ag and placing an abd pad over with Kerlix and tape, change every 2-3 days. patient needs to keep heels in an offloading position, this was done so at this time. patient was assessed from head to toe and no other wounds noted at this time, wound care will continue to f/u for possible changes.
[2018-10-16 15:00] VITALS: BP 145/54
--- NOTE | 2018-10-16 15:08 | PDOC ---
Progress Note-Wound Care SUBJECTIVE Ms. Douglass has significant DFU which has been followed at [facility] and is currently being addressed by Vascular Surgery. She has not been seen in our wound care clinic. I appreciate the request to participate in this pt's care but I believe our services would duplicate those already being provided by Dr. Nicole and his team. For now I will defer from becoming involved in this case. If there are services that we can provide, or if pt wants to be followed in our clinic after discharge, I will certainly oblige. Otherwise I'll leave her in the capable hands of the Vascular Surgery team. Thanks. OBJECTIVE Vital Signs Vital Signs Date Time Temp Pulse Resp B/P (MAP) Pulse Ox O2 Delivery O2 Flow Rate FiO2 10/15/18 13:38 98.9 89 18 170/67 (101) 95 Room Air 98.9 Vital Signs Date Time Temp Pulse Resp B/P (MAP) Pulse Ox O2 Delivery O2 Flow Rate FiO2 10/16/18 13:42 75 142/58 10/16/18 11:00 97.8 18 94 Room Air 97.8 WOUND Surrounding Tissue Appearance: pink Wound Description: skin, SQ, muscle Grade Goldberg: 2 ANNA VILLELA MD Oct 16, 2018 15:08
[2018-10-16] MEDS: LACTULOSE 20 GM/30 ML SOLUTION. PO SCH ×2 (15:24→20:52)
[2018-10-16] MEDS: VANCOMYCIN PER PHARMACY MC PRN (16:10)
--- NOTE | 2018-10-16 16:10 | NUR ---
Pharmacy Vancomycin Dosing Note S:Consulted to monitor and dose vancomycin started 10/16/18. O:YIN DIAZ is a 73 year old F with a DM foot ulcer, no mention of osteo in notes. Height: 5 feet, 0 inches Weight: 80.7 kg Dosing Weight: Actual Other Antibiotics: ZOSYN 2.25G IV Q8HRS LABS: Last BUN: 26 Last Creatinine: 5.0 Creatinine Clearance: ESRD on HD Tue/Thur/Sat Last WBC: 6.8 Last Procalcitonin: - Tmax (past 24 hours): 98.9 Microbiology: URINE CX PENDING I/O: 300/output not documented; 2 voids A: Patient requires vancomycin for a DM ulcer, goal trough 10-20 mcg/ml. Patient is ESRD on HD Tue/Thur/Sat. P: 1. Initiate Vancomycin 1750 IV x 1 dose 2. Follow up Random level on 10/17/18 at 0600 3. Pharmacy will continue to monitor, follow and adjust therapy as needed. KADEEM MCARTHUR [facility], 10/16/18 [id number]
[2018-10-16] MEDS ORDERED: IOHEXOL 350 MG/ML 100 ML VIAL. IV ONE (17:15)
[2018-10-16] MEDS ORDERED: CONTRAST GIVEN. MC PRN (17:30)
[2018-10-16 19:00] VITALS: BP 99/45
--- NOTE | 2018-10-16 21:25 | PDOC2 ---
CONSULT Date of Consult Date of Consult DATE: 10/16/18 TIME: 21:21 Reason for Consult Reason for Consult: abd pain Referring Physician Referring Physician: Polo Identification/Chief Complaint Chief Complaint abd pain Source Source: Chart review, Patient History of Present Illness Reason for Visit: 73 yo F with multiple medical problems presents with right shoulder pain and abd pain. Shoulder pain being addressed by ortho. Pt notes rash and pain in bilateral pannus area with induration of this with some erythematous rash. Tolerating reg diet. Past Medical History Cardiovascular: CHF, HTN, Hyperlipidemia Pulmonary: COPD, Pneumonia, Other CENTRAL NERVOUS SYSTEM: CVA, Periperal neuropathy GI: GERD Heme/Onc: Anemia NOS Hepatobiliary: Cirrhosis Psych: Anxiety, Depression Musculoskeletal: Osteoarthritis Rheumatologic: No pertinent hx Infectious disease: No pertinent hx Renal/: Chronic renal failure, UTI Endocrine: Diabetes, Hypothyroidism Past Surgical History Past Surgical History: Hysterectomy Family History Family History: Diabetes Social History No ALCOHOL: none Drugs: None Lives: with Family Current Problem List Problem List Problems Medical Problems: (1) Cirrhosis of liver with ascites Status: Acute (2) Hyperglycemia Status: Acute (3) Open wound of right foot Status: Acute (4) UTI (urinary tract infection) Status: Acute Current Medications Current Medications Current Medications Morphine Sulfate (Morphine Sulfate) 4 mg PRN Q15MIN PRN IV/SQ PAIN GREATER THAN 3/10 Last administered on 10/15/18at 18:50; Start 10/15/18 at 14:15; Stop at 14:14; Status DC Insulin Human Regular (HumuLIN R VIAL) 10 unit 1X ONCE IV ; Start 10/15/18 at 16:45; Stop 10/15/18 at 16:46; Status Cancel Insulin Human Regular (HumuLIN R VIAL) 5 unit 1X ONCE IV Last administered on 10/15/18at 17:04; Start 10/15/18 at 17:15; Stop 10/15/18 at 17:16; Status DC Ondansetron HCl (Zofran) 4 mg PRN Q8HRS PRN IV NAUSEA/VOMITING; Start 10/15/18 at 19:15; Stop 10/16/18 at 19:14; Status DC Morphine Sulfate (Morphine Sulfate) 4 mg PRN Q2HR PRN IV PAIN; Start 10/15/18 at 19:15; Stop 10/16/18 at 19:14; Status DC Insulin Human Lispro (HumaLOG) 0-7 UNITS TIDWMEALS SQ Last administered on 10/16 17:11; Start 10/16/18 at 08:00 Dextrose (Dextrose 50%-Water Syringe) 12.5 gm PRN Q15MIN PRN IV SEE COMMENTS; Start 10/15/18 at 19:15 Ceftriaxone Sodium (Rocephin) 1 gm Q24H IVP Last administered on 10/15/18at 22: 27; Start 10/15/18 at 20:00; Stop 10/16/18 at 10:39; Status DC Zolpidem Tartrate (Ambien) 5 mg PRN QHS PRN PO INSOMNIA Last administered on at 22:27; Start 10/15/18 at 22:15 Aspirin (Ecotrin) 325 mg DAILYWBKFT PO Last administered on 10/16/18 13:43; Start 10/16/18 at 10:00 Clonidine HCl (Catapres) 0.2 mg DAILY PO Last administered on 10/16/18 13:40; Start 10/16/18 at 09:00 Diclofenac Sodium (Voltaren) 1 ronel BID TP Last administered on 10/16/18 20:52 ; Start 10/16/18 at 09:00 Famotidine (Pepcid) 20 mg QODAY PO ; Start 10/16/18 at 09:00; Stop 10/16/18 at 09:35; Status DC Gabapentin (Neurontin) 100 mg DAILY PO Last administered on 10/16/18at 13:41; Start 10/16/18 at 09:00 Acetaminophen/ Hydrocodone Bitart (Lortab 5/325) 2 tab PRN Q6HRS PRN PO PAIN; Start 10/16/18 at 08:30 Insulin Glargine (Lantus) 15 units DAILY SQ Last administered on 10/16/18 13: 31; Start 10/16/18 at 09:00 Insulin Human Lispro (HumaLOG) 5 units TIDWMEALS SQ Last administered on 13:29; Start 10/16/18 at 12:00 Lactobacillus Rhamnosus (Culturelle) 1 cap BID PO Last administered on at 20:52; Start 10/16/18 at 09:00 Lactulose (Lactulose) 10 gm PRN TID PRN PO CONSTIPATION; Start 10/16/18 at 08: 30; Stop 10/16/18 at 09:35; Status DC Levothyroxine Sodium (Synthroid) 125 mcg DAILY06 PO Last administered on 13:43; Start 10/16/18 at 09:00 Metoprolol Succinate (Toprol Xl) 25 mg DAILY PO Last administered on 10/16/18 13:41; Start 10/16/18 at 09:00 Rifaximin (Xifaxan) 550 mg BID PO Last administered on 10/16/18 13:40; Start 10/16/18 at 09:00; Stop 10/16/18 at 16:03; Status DC Sertraline HCl (Zoloft) 75 mg DAILY PO Last administered on 10/16/18 13:42; Start 10/16/18 at 09:00 Sevelamer Carbonate (Renvela) 800 mg TIDWMEALS PO Last administered on 16:56; Start 10/16/18 at 12:00 Isosorbide Mononitrate (Imdur) 30 mg DAILY PO Last administered on 10/16/18 13 :42; Start 10/16/18 at 09:00 Lactulose (Lactulose) 10 gm TID PO Last administered on 10/16/18 20:52; Start 10/16/18 at 14:00 Rifaximin (Xifaxan) 550 mg Q12HR PO Last administered on 10/16/18 20:52; Start 10/16/18 at 10:00 Pantoprazole Sodium (Protonix) 40 mg DAILYAC PO Last administered on 10/16/18 13:42; Start 10/16/18 at 10:00 Piperacillin Sod/ Tazobactam Sod 2.25 gm/Sodium Chloride 50 ml @ 100 mls/hr Q8HRS IV Last administered on 10/16/18 20:52; Start 10/16/18 at 11:00 Vancomycin HCl (Vanco Per Pharmacy) 1 each PRN DAILY PRN MC SEE COMMENTS Last administered on 10/16/18 16:10; Start 10/16/18 at 10:45 Vancomycin HCl 1.75 gm/Sodium Chloride 500 ml @ 250 mls/hr 1X ONCE IV Last administered on 10/16/18at 15:24; Start 10/16/18 at 11:00; Stop 10/16/18 at 12:59 ; Status DC Vancomycin HCl (Vancomycin Random Level) 1 each 1X ONCE MC ; Start 10/17/18 at 06:00; Stop 10/17/18 at 06:01 Iohexol (Omnipaque 350 Mg/ml) 100 ml 1X ONCE IV ; Start 10/16/18 at 17:15; Stop 10/16/18 at 17:16; Status DC Info (CONTRAST GIVEN -- Rx MONITORING) 1 each PRN DAILY PRN MC SEE COMMENTS; Start 10/16/18 at 17:30; Stop 10/18/18 at 17:29 Active Scripts Active Zofran (Ondansetron Hcl) 4 Mg Tablet 1 Tab PO Q6HRS Cephalexin 500 Mg Tablet 1 Tab PO BID Humalog (Insulin Lispro) 100 Unit/1 Ml Insuln.pen 5 Units SQ TIDWMEALS 28 Days Culturelle (Lactobacillus Rhamnosus Gg) 1 Each Cap.sprink 1 Cap PO BID 28 Days Lantus Solostar (Insulin Glargine,Hum.rec.anlog) 100 Unit/1 Ml Insuln.pen 15 Units SQ DAILY 28 Days Cipro (Ciprofloxacin Hcl) 250 Mg Tablet 250 Mg PO DAILY 10 Days Lactulose 20 Gm/30 Ml Solution 10 Gm PO PRN TID PRN 10 Days Aspirin Ec (Aspirin) 325 Mg Tablet.dr 325 Mg PO DAILYWBKFT 30 Days Reported Calcium Acetate 667 Mg Tablet 667 Mg PO BID Calcium Acetate 667 Mg Tablet 1,334 Mg PO TIDWMEALS Vitamin D (Cholecalciferol (Vitamin D3)) 50,000 Unit Capsule 50,000 Unit PO DAILY Tizanidine Hcl 2 Mg Capsule 2 Mg PO BID PRN Meclizine Hcl 25 Mg Tablet 1 Tab PO TID Voltaren (Diclofenac Sodium) 100 Gm Gel..gram. 1 Gm TP BID Hydrocodone-Apap 5-325 (Hydrocodone Bit/Acetaminophen) 1 Each Tablet 2 Tab PO PRN Q6HRS PRN Clonidine Hcl 0.2 Mg Tablet 0.2 Mg PO DAILY Gabapentin (Gabapentin) 100 Mg Capsule 100 Mg PO DAILY Zoloft (Sertraline Hcl) 50 Mg Tablet 75 Mg PO DAILY Renvela (Sevelamer Carbonate) 800 Mg Tablet 1 Tab PO TIDWMEALS Levothyroxine Sodium 175 Mcg Tablet 125 Mcg PO DAILYAC Dialyvite Success D Tablet (Multivitamin, Min Cmb#25/Fa/D3) 1 Each Tablet 1 Each PO DAILY Metoprolol Succinate ( Xl ) (Metoprolol Succinate) 25 Mg Tab.er.24h 25 Mg PO DAILY Ondansetron Hcl 4 Mg Tablet 4 Mg PO Q6HRS PRN Zolpidem Tartrate 5 Mg Tablet 5 Mg PO PRN QHS PRN Famotidine 20 Mg Tablet 20 Mg PO DAILY Xifaxan (Rifaximin) 550 Mg Tablet 1 Tab PO BID Isosorbide Dinitrate 30 Mg Tablet 1 Tab PO DAILY Allergies Allergies: Coded Allergies: adhesive (Verified Allergy, Intermediate, Rash, 10/15/18) TAPE ROS Gastrointestinal: Yes Abdominal Pain Musculoskeletal: Yes Joint Pain Physical Exam General: Alert, Oriented X3, Cooperative, mild distress HEENT: Atraumatic Lungs: Normal air movement Abdomen: Soft, Other (bilateral pannus induration, mild TTP, umbilical hernia, reducible, mild erythema left groin under pannus) Skin: Other (as above) Neuro: Normal speech, Sensation intact Psych/Mental Status: Mental status NL, Mood NL Vitals VITALS Vital Signs Date Time Temp Pulse Resp B/P (MAP) Pulse Ox O2 Delivery O2 Flow Rate FiO2 10/16/18 19:00 98.8 58 18 99/45 (63) 97 98.8 10/16/18 15:00 Room Air Labs Labs Laboratory Tests Test 10/15/18 13:41 10/15/18 13:50 10/15/18 15:00 10/15/18 15:41 Glucose (Fingerstick) 440 mg/dL (70-99) White Blood Count 4.9 x10^3/uL (4.0-11.0) Red Blood Count 3.24 x10^6/uL (3.50-5.40) Hemoglobin 10.0 g/dL (12.0-15.5) Hematocrit 29.9 % (36.0-47.0) Mean Corpuscular Volume 92 fL (79-100) Mean Corpuscular Hemoglobin 31 pg (25-35) Mean Corpuscular Hemoglobin Concent 34 g/dL (31-37) Red Cell Distribution Width 16.8 % (11.5-14.5) Platelet Count 71 x10^3/uL (140-400) Neutrophils (%) (Auto) 71 % (31-73) Lymphocytes (%) (Auto) 10 % (24-48) Monocytes (%) (Auto) 16 % (0-9) Eosinophils (%) (Auto) 2 % (0-3) Basophils (%) (Auto) 1 % (0-3) Neutrophils # (Auto) 3.5 x10^3uL (1.8-7.7) Lymphocytes # (Auto) 0.5 x10^3/uL (1.0-4.8) Monocytes # (Auto) 0.8 x10^3/uL (0.0-1.1) Eosinophils # (Auto) 0.1 x10^3/uL (0.0-0.7) Basophils # (Auto) 0.1 x10^3/uL (0.0-0.2) Erythrocyte Sedimentation Rate 30 (0-25) Sodium Level 134 mmol/L (136-145) Potassium Level 3.9 mmol/L (3.5-5.1) Chloride Level 95 mmol/L (98-107) Carbon Dioxide Level 26 mmol/L (21-32) Anion Gap 13 (6-14) Blood Urea Nitrogen 23 mg/dL (7-20) Creatinine 4.7 mg/dL (0.6-1.0) Estimated GFR (Cockcroft-Gault) 9.1 BUN/Creatinine Ratio 5 (6-20) Glucose Level 476 mg/dL (70-99) Lactic Acid Level 2.0 mmol/L (0.4-2.0) Calcium Level 7.7 mg/dL (8.5-10.1) Magnesium Level 1.7 mg/dL (1.8-2.4) Total Bilirubin 1.1 mg/dL (0.2-1.0) Aspartate Amino Transf (AST/SGOT) 19 U/L (15-37) Alanine Aminotransferase (ALT/SGPT) 14 U/L (14-59) Alkaline Phosphatase 110 U/L (46-116) Creatine Kinase 78 U/L (26-192) Creatine Kinase MB (Mass) 1.6 ng/mL (0.0-3.6) Creatine Kinase MB Relative Index 2.1 % (0-4) Troponin I Quantitative 0.017 ng/mL (0.000-0.055) C-Reactive Protein, Quantitative 55.5 mg/L (0-3.3) IY-Noq-W-Type Natriuretic Peptide 82458 pg/mL (0-124) Total Protein 6.8 g/dL (6.4-8.2) Albumin 2.2 g/dL (3.4-5.0) Albumin/Globulin Ratio 0.5 (1.0-1.7) Ammonia 47 mcmol/L (11-34) Urine Collection Type Unknown Urine Color Yellow Urine Clarity Hazy Urine pH 5.5 Urine Specific [place] 1.020 Urine Protein 100 mg/dL (NEG-TRACE) Urine Glucose (UA) >=1000 mg/dL (NEG) Urine Ketones (Stick) Negative mg/dL (NEG) Urine Blood Large (NEG) Urine Nitrite Negative (NEG) Urine Bilirubin Negative (NEG) Urine Urobilinogen Dipstick 0.2 mg/dL (0.2 mg/dL) Urine Leukocyte Esterase Moderate (NEG) Urine RBC 3-5 /HPF (0-2) Urine WBC 20-40 /HPF (0-4) Urine Squamous Epithelial Cells Many /LPF Urine Bacteria Many /HPF (0-FEW) Test 10/16/18 04:10 10/16/18 08:03 10/16/18 11:17 10/16/18 16:35 White Blood Count 6.8 x10^3/uL (4.0-11.0) Red Blood Count 3.37 x10^6/uL (3.50-5.40) Hemoglobin 10.3 g/dL (12.0-15.5) Hematocrit 30.9 % (36.0-47.0) Mean Corpuscular Volume 92 fL (79-100) Mean Corpuscular Hemoglobin 31 pg (25-35) Mean Corpuscular Hemoglobin Concent 34 g/dL (31-37) Red Cell Distribution Width 16.7 % (11.5-14.5) Platelet Count 84 x10^3/uL (140-400) Neutrophils (%) (Auto) 71 % (31-73) Lymphocytes (%) (Auto) 11 % (24-48) Monocytes (%) (Auto) 15 % (0-9) Eosinophils (%) (Auto) 3 % (0-3) Basophils (%) (Auto) 1 % (0-3) Neutrophils # (Auto) 4.8 x10^3uL (1.8-7.7) Lymphocytes # (Auto) 0.7 x10^3/uL (1.0-4.8) Monocytes # (Auto) 1.0 x10^3/uL (0.0-1.1) Eosinophils # (Auto) 0.2 x10^3/uL (0.0-0.7) Basophils # (Auto) 0.1 x10^3/uL (0.0-0.2) Sodium Level 133 mmol/L (136-145) Potassium Level 3.9 mmol/L (3.5-5.1) Chloride Level 96 mmol/L (98-107) Carbon Dioxide Level 24 mmol/L (21-32) Anion Gap 13 (6-14) Blood Urea Nitrogen 26 mg/dL (7-20) Creatinine 5.0 mg/dL (0.6-1.0) Estimated GFR (Cockcroft-Gault) 8.5 BUN/Creatinine Ratio 5 (6-20) Glucose Level 336 mg/dL (70-99) Calcium Level 7.9 mg/dL (8.5-10.1) Total Bilirubin 1.2 mg/dL (0.2-1.0) Aspartate Amino Transf (AST/SGOT) 17 U/L (15-37) Alanine Aminotransferase (ALT/SGPT) 14 U/L (14-59) Alkaline Phosphatase 101 U/L (46-116) Total Protein 7.4 g/dL (6.4-8.2) Albumin 2.2 g/dL (3.4-5.0) Albumin/Globulin Ratio 0.4 (1.0-1.7) Glucose (Fingerstick) 324 mg/dL (70-99) 293 mg/dL (70-99) 202 mg/dL (70-99) Laboratory Tests Test 10/16/18 04:10 10/16/18 08:03 10/16/18 11:17 10/16/18 16:35 White Blood Count 6.8 x10^3/uL (4.0-11.0) Red Blood Count 3.37 x10^6/uL (3.50-5.40) Hemoglobin 10.3 g/dL (12.0-15.5) Hematocrit 30.9 % (36.0-47.0) Mean Corpuscular Volume 92 fL (79-100) Mean Corpuscular Hemoglobin 31 pg (25-35) Mean Corpuscular Hemoglobin Concent 34 g/dL (31-37) Red Cell Distribution Width 16.7 % (11.5-14.5) Platelet Count 84 x10^3/uL (140-400) Neutrophils (%) (Auto) 71 % (31-73) Lymphocytes (%) (Auto) 11 % (24-48) Monocytes (%) (Auto) 15 % (0-9) Eosinophils (%) (Auto) 3 % (0-3) Basophils (%) (Auto) 1 % (0-3) Neutrophils # (Auto) 4.8 x10^3uL (1.8-7.7) Lymphocytes # (Auto) 0.7 x10^3/uL (1.0-4.8) Monocytes # (Auto) 1.0 x10^3/uL (0.0-1.1) Eosinophils # (Auto) 0.2 x10^3/uL (0.0-0.7) Basophils # (Auto) 0.1 x10^3/uL (0.0-0.2) Sodium Level 133 mmol/L (136-145) Potassium Level 3.9 mmol/L (3.5-5.1) Chloride Level 96 mmol/L (98-107) Carbon Dioxide Level 24 mmol/L (21-32) Anion Gap 13 (6-14) Blood Urea Nitrogen 26 mg/dL (7-20) Creatinine 5.0 mg/dL (0.6-1.0) Estimated GFR (Cockcroft-Gault) 8.5 BUN/Creatinine Ratio 5 (6-20) Glucose Level 336 mg/dL (70-99) Calcium Level 7.9 mg/dL (8.5-10.1) Total Bilirubin 1.2 mg/dL (0.2-1.0) Aspartate Amino Transf (AST/SGOT) 17 U/L (15-37) Alanine Aminotransferase (ALT/SGPT) 14 U/L (14-59) Alkaline Phosphatase 101 U/L (46-116) Total Protein 7.4 g/dL (6.4-8.2) Albumin 2.2 g/dL (3.4-5.0) Albumin/Globulin Ratio 0.4 (1.0-1.7) Glucose (Fingerstick) 324 mg/dL (70-99) 293 mg/dL (70-99) 202 mg/dL (70-99) Images Images Ct with hernia and cirrhosis, anasarca Assessment/Plan Assessment/Plan Mild panniculitis will try nystatin powder recommend against any surgical intervention given cirrhosis and portal hypertension. Thanks for consult! ARIC BALDERAS MD Oct 16, 2018 21:25
[2018-10-16] MEDS: NYSTATIN TOPICAL POWDER 15GM BOTTLE. TP SCH (21:30)
[2018-10-16 23:00] VITALS: BP_SYST 120; BP_SYST 126; BP_DIAS 60; BP_DIAS 81
[2018-10-16 23:10] LABS: HEMOGLOBIN A1C 7.5 % (4.8-5.6)
--- NOTE | 2018-10-16 23:29 | CONS ---
DATE OF CONSULTATION: 10/16/2018 ROOM: 578. REQUESTING PHYSICIAN: ____ Vascular Surgery. REASON FOR CONSULTATION: Foot pain. HISTORY OF PRESENT ILLNESS: The patient is a 73-year-old female with history of chronic kidney disease, on hemodialysis, also has a history of cirrhosis. She was recently treated for right great toe infection with pseudomonas. She was brought to [facility] Emergency Room on the evening of the secondary to complaints of shoulder pain. Currently, she is a little encephalopathic. She has received some Ambien last evening. She states she has fallen in the hospital, but she does not know when. The pain was 10/10 and she is supposed to have some surgery on her right foot, but was unable to go to surgery. On arrival, she had a white count of 4.9, it was normal. Sed rate was 30. She was placed on Rocephin. She underwent shoulder x-ray and chest x-ray, did not show any acute complications, although she has some mild interstitial pulmonary edema. Additionally, she underwent a CT abdomen and pelvis, which showed some cirrhosis and cholelithiasis without acute cholecystitis. She was seen by ____ this morning, it was noted that she had a large plantar ulcer that was probing to the bone, hence I have been consulted. Currently, the patient lying in bed. She is fairly comfortable. She is arousing, but is a questionable historian at this point. She is uncertain if she has taken any antibiotics prior to coming to the hospital. She had a little bit of nausea. No sinus headaches, no sore throat, no cough or chest pain. PAST MEDICAL HISTORY: Positive for recent toe cellulitis with pseudomonas, congestive heart failure, hypertension, hyperlipidemia, COPD, pneumonia, CVA, peripheral neuropathy, gastroesophageal reflux disease, anemia, cirrhosis, depression, anxiety, osteoarthritis, chronic kidney disease, on hemodialysis, diabetes, and hypothyroidism. PAST SURGICAL HISTORY: Positive for hysterectomy as well as previous right great toe removal, has a history of right AV shunt, upper extremity, as well as hysterectomy. REVIEW OF SYSTEMS: Otherwise negative, is somewhat unreliable. ALLERGIES: LISTED ADHESIVE TAPE. SOCIAL HISTORY: No tobacco or alcohol. Supportive family. FAMILY HISTORY: Positive for hypertension. CURRENT MEDICATIONS: Include Rocephin, aspirin, Catapres, Pepcid, Neurontin, insulin, lactobacillus, lactulose, rifaximin, and Ambien. PHYSICAL EXAMINATION: VITAL SIGNS: Afebrile, temperature 97.7, pulse 84, respirations 18, blood pressure 157/47, and satting 93% on room air. CONSTITUTIONAL: She is arousable. She appears comfortable. She is in no acute distress. HEENT: Oral cavity, pharynx is dry. She has normal conjunctivae. NECK: Supple. LUNGS: Decreased at bases. HEART: S1 and S2. ABDOMEN: Obese, soft, mildly tender, is tender to the right side. There is no guarding, there is no rebound. Does have an umbilical hernia that is reducible. EXTREMITIES: Without clubbing, cyanosis. She has chronic changes of her lower extremities. Right foot has a large plantar ulcer, it does probe to the bone. There is odor associated with it. There is no pus. No gross erythema. Her right shoulder is without gross erythema or edema. She does have pain, particularly with extension. Passive range of motion. There is no crepitus or collarbone. SKIN: Otherwise warm to touch. NEUROLOGIC: She is somewhat encephalopathic. LABORATORY DATA: White count 6.8, hemoglobin 10.3, platelets of 84, segs are 71. The sed rate of 30, creatinine was 5, glucose 336. Normal liver function study tests. Urinalysis, many squamous cells appears contaminated. ASSESSMENT: 1. 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 2. Encephalopathy. 3. History of pseudomonas on 09/08/2018. 4. Chronic kidney disease, on hemodialysis. 5. Cirrhosis. 6. History of toe cellulitis and wound that is healed. 7. Shoulder pain without swelling. RECOMMENDATIONS: We will discontinue Rocephin. Begin Zosyn and vancomycin. Follow up arterial studies. Wait labs and cultures, await further vascular followup. Will likely need I and D. Await ortho evaluation of the shoulder. Thank you for allowing us to participate in the patient's care. Should you have any further questions, please do not hesitate to contact me. KJ MEZA MD DR: AYE/susannah JOB#: [id number] / [id number]
[2018-10-17] MEDS: HYDROcodone/APAP 5/325MG 1 TAB TABLET PO PRN ×4 (00:36→21:31)
[2018-10-17 03:00] VITALS: BP 95/35
[2018-10-17] MEDS: PIPERACILLIN/TAZOBACTAM 2.25 GM in IV NORMAL SALINE 50ML 50 ML IV SCH ×3 (05:05→21:34)
[2018-10-17] MEDS: LEVOTHYROXINE 125 MCG TABLET PO SCH (05:05)
[2018-10-17] MEDS ORDERED: VANCOMYCIN RANDOM LEVEL. MC ONE (06:00)
[2018-10-17 07:00] VITALS: BP 120/41
[2018-10-17] MEDS: ASPIRIN ENTERIC COATED 325 MG TABLET.DR. PO SCH ×2 (08:00→08:44)
[2018-10-17] MEDS: SEVELAMER CARBONATE 800 MG TABLET. PO SCH ×3 (08:44→18:10)
[2018-10-17] MEDS: PANTOPRAZOLE 40 MG TABLET.DR. PO SCH (08:44)
[2018-10-17] MEDS: GABAPENTIN 100 MG CAPSULE. PO SCH (08:45)
[2018-10-17] MEDS: LACTOBACILLUS RHAMNOSUS GG 1 CAPSULE. PO SCH ×2 (08:45→21:30)
[2018-10-17] MEDS: SERTRALINE 50 MG TABLET. PO SCH (08:47)
[2018-10-17] MEDS: LACTULOSE 20 GM/30 ML SOLUTION. PO SCH ×4 (08:48→21:00)
[2018-10-17] MEDS: DICLOFENAC SODIUM 1% TOPICAL GEL 100GM TUBE. TP SCH ×2 (08:57→21:32)
[2018-10-17] MEDS: rifAXIMin 550 MG TABLET PO SCH ×2 (08:57→21:29)
[2018-10-17] MEDS: NYSTATIN TOPICAL POWDER 15GM BOTTLE. TP SCH ×2 (09:00→21:32)
[2018-10-17] MEDS: METOPROLOL SUCC 24HR ER 25 MG TAB.ER.24H. PO SCH (09:00)
[2018-10-17] MEDS: cloNIDine HCL 0.2 MG TABLET PO SCH (09:00)
--- NOTE | 2018-10-17 09:03 | PDOC ---
SURGICAL PROGRESS NOTE Subjective Pt with c/o mild RLQ abd pain, eren PO well, denies N/V Vital Signs Vital Signs Date Time Temp Pulse Resp B/P (MAP) Pulse Ox O2 Delivery O2 Flow Rate FiO2 10/17/18 03:00 98.2 57 16 95/35 (55) 98 Room Air 98.2 I&O Intake and Output 10/17/18 06:59 Intake Total 1180 ml Balance 1180 ml Intake Oral 1180 ml # Voids 4 # Bowel Movements 3 General: Alert, Cooperative, No acute distress Abdomen: Soft, Other (mild TTP, hernia reducible) Skin: Other (right foot dressing with some sanguinous drainage) Labs Laboratory Tests Test 10/15/18 13:41 10/15/18 13:50 10/15/18 15:00 10/15/18 15:41 Glucose (Fingerstick) 440 mg/dL (70-99) White Blood Count 4.9 x10^3/uL (4.0-11.0) Red Blood Count 3.24 x10^6/uL (3.50-5.40) Hemoglobin 10.0 g/dL (12.0-15.5) Hematocrit 29.9 % (36.0-47.0) Mean Corpuscular Volume 92 fL (79-100) Mean Corpuscular Hemoglobin 31 pg (25-35) Mean Corpuscular Hemoglobin Concent 34 g/dL (31-37) Red Cell Distribution Width 16.8 % (11.5-14.5) Platelet Count 71 x10^3/uL (140-400) Neutrophils (%) (Auto) 71 % (31-73) Lymphocytes (%) (Auto) 10 % (24-48) Monocytes (%) (Auto) 16 % (0-9) Eosinophils (%) (Auto) 2 % (0-3) Basophils (%) (Auto) 1 % (0-3) Neutrophils # (Auto) 3.5 x10^3uL (1.8-7.7) Lymphocytes # (Auto) 0.5 x10^3/uL (1.0-4.8) Monocytes # (Auto) 0.8 x10^3/uL (0.0-1.1) Eosinophils # (Auto) 0.1 x10^3/uL (0.0-0.7) Basophils # (Auto) 0.1 x10^3/uL (0.0-0.2) Erythrocyte Sedimentation Rate 30 (0-25) Sodium Level 134 mmol/L (136-145) Potassium Level 3.9 mmol/L (3.5-5.1) Chloride Level 95 mmol/L (98-107) Carbon Dioxide Level 26 mmol/L (21-32) Anion Gap 13 (6-14) Blood Urea Nitrogen 23 mg/dL (7-20) Creatinine 4.7 mg/dL (0.6-1.0) Estimated GFR (Cockcroft-Gault) 9.1 BUN/Creatinine Ratio 5 (6-20) Glucose Level 476 mg/dL (70-99) Lactic Acid Level 2.0 mmol/L (0.4-2.0) Calcium Level 7.7 mg/dL (8.5-10.1) Magnesium Level 1.7 mg/dL (1.8-2.4) Total Bilirubin 1.1 mg/dL (0.2-1.0) Aspartate Amino Transf (AST/SGOT) 19 U/L (15-37) Alanine Aminotransferase (ALT/SGPT) 14 U/L (14-59) Alkaline Phosphatase 110 U/L (46-116) Creatine Kinase 78 U/L (26-192) Creatine Kinase MB (Mass) 1.6 ng/mL (0.0-3.6) Creatine Kinase MB Relative Index 2.1 % (0-4) Troponin I Quantitative 0.017 ng/mL (0.000-0.055) C-Reactive Protein, Quantitative 55.5 mg/L (0-3.3) JP-Ist-P-Type Natriuretic Peptide 61392 pg/mL (0-124) Total Protein 6.8 g/dL (6.4-8.2) Albumin 2.2 g/dL (3.4-5.0) Albumin/Globulin Ratio 0.5 (1.0-1.7) Ammonia 47 mcmol/L (11-34) Urine Collection Type Unknown Urine Color Yellow Urine Clarity Hazy Urine pH 5.5 Urine Specific [place] 1.020 Urine Protein 100 mg/dL (NEG-TRACE) Urine Glucose (UA) >=1000 mg/dL (NEG) Urine Ketones (Stick) Negative mg/dL (NEG) Urine Blood Large (NEG) Urine Nitrite Negative (NEG) Urine Bilirubin Negative (NEG) Urine Urobilinogen Dipstick 0.2 mg/dL (0.2 mg/dL) Urine Leukocyte Esterase Moderate (NEG) Urine RBC 3-5 /HPF (0-2) Urine WBC 20-40 /HPF (0-4) Urine Squamous Epithelial Cells Many /LPF Urine Bacteria Many /HPF (0-FEW) Test 10/16/18 04:10 10/16/18 08:03 10/16/18 11:17 10/16/18 16:35 White Blood Count 6.8 x10^3/uL (4.0-11.0) Red Blood Count 3.37 x10^6/uL (3.50-5.40) Hemoglobin 10.3 g/dL (12.0-15.5) Hematocrit 30.9 % (36.0-47.0) Mean Corpuscular Volume 92 fL (79-100) Mean Corpuscular Hemoglobin 31 pg (25-35) Mean Corpuscular Hemoglobin Concent 34 g/dL (31-37) Red Cell Distribution Width 16.7 % (11.5-14.5) Platelet Count 84 x10^3/uL (140-400) Neutrophils (%) (Auto) 71 % (31-73) Lymphocytes (%) (Auto) 11 % (24-48) Monocytes (%) (Auto) 15 % (0-9) Eosinophils (%) (Auto) 3 % (0-3) Basophils (%) (Auto) 1 % (0-3) Neutrophils # (Auto) 4.8 x10^3uL (1.8-7.7) Lymphocytes # (Auto) 0.7 x10^3/uL (1.0-4.8) Monocytes # (Auto) 1.0 x10^3/uL (0.0-1.1) Eosinophils # (Auto) 0.2 x10^3/uL (0.0-0.7) Basophils # (Auto) 0.1 x10^3/uL (0.0-0.2) Sodium Level 133 mmol/L (136-145) Potassium Level 3.9 mmol/L (3.5-5.1) Chloride Level 96 mmol/L (98-107) Carbon Dioxide Level 24 mmol/L (21-32) Anion Gap 13 (6-14) Blood Urea Nitrogen 26 mg/dL (7-20) Creatinine 5.0 mg/dL (0.6-1.0) Estimated GFR (Cockcroft-Gault) 8.5 BUN/Creatinine Ratio 5 (6-20) Glucose Level 336 mg/dL (70-99) Hemoglobin A1c 7.5 % (4.8-5.6) Calcium Level 7.9 mg/dL (8.5-10.1) Total Bilirubin 1.2 mg/dL (0.2-1.0) Aspartate Amino Transf (AST/SGOT) 17 U/L (15-37) Alanine Aminotransferase (ALT/SGPT) 14 U/L (14-59) Alkaline Phosphatase 101 U/L (46-116) Total Protein 7.4 g/dL (6.4-8.2) Albumin 2.2 g/dL (3.4-5.0) Albumin/Globulin Ratio 0.4 (1.0-1.7) Glucose (Fingerstick) 324 mg/dL (70-99) 293 mg/dL (70-99) 202 mg/dL (70-99) Test 10/17/18 04:10 10/17/18 08:08 Random Vancomycin Level 16.6 mcg/mL Glucose (Fingerstick) 157 mg/dL (70-99) Laboratory Tests Test 10/16/18 11:17 10/16/18 16:35 10/17/18 04:10 10/17/18 08:08 Glucose (Fingerstick) 293 mg/dL (70-99) 202 mg/dL (70-99) 157 mg/dL (70-99) Random Vancomycin Level 16.6 mcg/mL Problem List Problems Medical Problems: (1) Cirrhosis of liver with ascites Status: Acute (2) Hyperglycemia Status: Acute (3) Open wound of right foot Status: Acute (4) UTI (urinary tract infection) Status: Acute Assessment/Plan suspect mild panniculitis of lower abd wall will cont nystatin powder poor surgical candidate ARIC BALEDRAS MD Oct 17, 2018 09:02
[2018-10-17] MEDS: INSULIN GLARGINE 300 UNITS/3 ML INSULN.PEN. SQ SCH (09:15)
[2018-10-17] MEDS: INSULIN LISPRO 300 UNITS/3 ML INSULN.PEN. SQ SCH ×6 (09:16→18:19)
--- NOTE | 2018-10-17 09:27 | PDOC ---
PROGRESS NOTES Chief Complaint Chief Complaint Cirrhosis Foot ulcer ESRD on HD DM2 History of Present Illness History of Present Illness Ms. Douglass is a 73 year old female with severe right shoulder pain and abdominal pain. Her pain to her abdomen fluctuates, worse today, no quigley in stool, Also 10/10 right shoulder pain, she can barely move the arm due to pain. she was last dialyzed on Friday, and abd pain had fluctated in the past few days prior to admit. 10/17: Seen by vascular for right foot, ID for h/o infection, nephro for ESRD, general surgery for panniculitis. Seen by ortho for shoulder pain. Right foot very painful today. No BM. Abdomen swelling. Tolerated diet ok. Seen on dialysis Plan: Consult vascular surgery - EBONY of right leg. Patient would like second opinion on BKA recommendation, will reach out to ortho for this. GI to see for cirrhosis Nephro to see for ESRD ID for history of MDRO infection - pseudomonas last month Vitals Vitals Vital Signs Date Time Temp Pulse Resp B/P (MAP) Pulse Ox O2 Delivery O2 Flow Rate FiO2 10/17/18 09:22 16 96 Room Air 10/17/18 07:00 98.4 56 120/41 (67) 98.4 Physical Exam General: Alert, Cooperative, No acute distress Heart: Regular rate Lungs: Clear Abdomen: Soft, Other (mild TTP, hernia reducible) Extremities: Other (the right shoulder is tender to palpation around the greater tuberosity and rotator cuff. The gross alignment is normal and there is no effusion or erythema. Passive range of motion is very limited, and was painful at the extremes, only about 40 forward flexion and 40 of abduction before it got quite painful and she said "I'm going to hit you if you continue" . She has a pulsatile dialysis shunt in the right upper arm near the distal biceps, anterior humerus antecubital fossa region. The biceps tendon seems to be intact to resisted motion, and there does not seem to be pain or deformity at the elbow. Her distal sensation and motor function are preserved.) Skin: Other (right foot dressing with some sanguinous drainage) Labs LABS Laboratory Tests Test 10/16/18 11:17 10/16/18 16:35 10/17/18 04:10 10/17/18 08:08 Glucose (Fingerstick) 293 mg/dL (70-99) 202 mg/dL (70-99) 157 mg/dL (70-99) Random Vancomycin Level 16.6 mcg/mL Assessment and Plan Assessmemt and Plan Problems Medical Problems: (1) Cirrhosis of liver with ascites Status: Acute (2) Hyperglycemia Status: Acute (3) Open wound of right foot Status: Acute (4) UTI (urinary tract infection) Status: Acute Comment Review of Relevant I have reviewed the following items karyn (where applicable) has been applied. Labs Laboratory Tests Test 10/15/18 13:41 10/15/18 13:50 10/15/18 15:00 10/15/18 15:41 Glucose (Fingerstick) 440 mg/dL (70-99) White Blood Count 4.9 x10^3/uL (4.0-11.0) Red Blood Count 3.24 x10^6/uL (3.50-5.40) Hemoglobin 10.0 g/dL (12.0-15.5) Hematocrit 29.9 % (36.0-47.0) Mean Corpuscular Volume 92 fL (79-100) Mean Corpuscular Hemoglobin 31 pg (25-35) Mean Corpuscular Hemoglobin Concent 34 g/dL (31-37) Red Cell Distribution Width 16.8 % (11.5-14.5) Platelet Count 71 x10^3/uL (140-400) Neutrophils (%) (Auto) 71 % (31-73) Lymphocytes (%) (Auto) 10 % (24-48) Monocytes (%) (Auto) 16 % (0-9) Eosinophils (%) (Auto) 2 % (0-3) Basophils (%) (Auto) 1 % (0-3) Neutrophils # (Auto) 3.5 x10^3uL (1.8-7.7) Lymphocytes # (Auto) 0.5 x10^3/uL (1.0-4.8) Monocytes # (Auto) 0.8 x10^3/uL (0.0-1.1) Eosinophils # (Auto) 0.1 x10^3/uL (0.0-0.7) Basophils # (Auto) 0.1 x10^3/uL (0.0-0.2) Erythrocyte Sedimentation Rate 30 (0-25) Sodium Level 134 mmol/L (136-145) Potassium Level 3.9 mmol/L (3.5-5.1) Chloride Level 95 mmol/L (98-107) Carbon Dioxide Level 26 mmol/L (21-32) Anion Gap 13 (6-14) Blood Urea Nitrogen 23 mg/dL (7-20) Creatinine 4.7 mg/dL (0.6-1.0) Estimated GFR (Cockcroft-Gault) 9.1 BUN/Creatinine Ratio 5 (6-20) Glucose Level 476 mg/dL (70-99) Lactic Acid Level 2.0 mmol/L (0.4-2.0) Calcium Level 7.7 mg/dL (8.5-10.1) Magnesium Level 1.7 mg/dL (1.8-2.4) Total Bilirubin 1.1 mg/dL (0.2-1.0) Aspartate Amino Transf (AST/SGOT) 19 U/L (15-37) Alanine Aminotransferase (ALT/SGPT) 14 U/L (14-59) Alkaline Phosphatase 110 U/L (46-116) Creatine Kinase 78 U/L (26-192) Creatine Kinase MB (Mass) 1.6 ng/mL (0.0-3.6) Creatine Kinase MB Relative Index 2.1 % (0-4) Troponin I Quantitative 0.017 ng/mL (0.000-0.055) C-Reactive Protein, Quantitative 55.5 mg/L (0-3.3) XZ-Wqs-[id number]-Type Natriuretic Peptide 87337 pg/mL (0-124) Total Protein 6.8 g/dL (6.4-8.2) Albumin 2.2 g/dL (3.4-5.0) Albumin/Globulin Ratio 0.5 (1.0-1.7) Ammonia 47 mcmol/L (11-34) Urine Collection Type Unknown Urine Color Yellow Urine Clarity Hazy Urine pH 5.5 Urine Specific [place] 1.020 Urine Protein 100 mg/dL (NEG-TRACE) Urine Glucose (UA) >=1000 mg/dL (NEG) Urine Ketones (Stick) Negative mg/dL (NEG) Urine Blood Large (NEG) Urine Nitrite Negative (NEG) Urine Bilirubin Negative (NEG) Urine Urobilinogen Dipstick 0.2 mg/dL (0.2 mg/dL) Urine Leukocyte Esterase Moderate (NEG) Urine RBC 3-5 /HPF (0-2) Urine WBC 20-40 /HPF (0-4) Urine Squamous Epithelial Cells Many /LPF Urine Bacteria Many /HPF (0-FEW) Test 10/16/18 04:10 10/16/18 08:03 10/16/18 11:17 10/16/18 16:35 White Blood Count 6.8 x10^3/uL (4.0-11.0) Red Blood Count 3.37 x10^6/uL (3.50-5.40) Hemoglobin 10.3 g/dL (12.0-15.5) Hematocrit 30.9 % (36.0-47.0) Mean Corpuscular Volume 92 fL (79-100) Mean Corpuscular Hemoglobin 31 pg (25-35) Mean Corpuscular Hemoglobin Concent 34 g/dL (31-37) Red Cell Distribution Width 16.7 % (11.5-14.5) Platelet Count 84 x10^3/uL (140-400) Neutrophils (%) (Auto) 71 % (31-73) Lymphocytes (%) (Auto) 11 % (24-48) Monocytes (%) (Auto) 15 % (0-9) Eosinophils (%) (Auto) 3 % (0-3) Basophils (%) (Auto) 1 % (0-3) Neutrophils # (Auto) 4.8 x10^3uL (1.8-7.7) Lymphocytes # (Auto) 0.7 x10^3/uL (1.0-4.8) Monocytes # (Auto) 1.0 x10^3/uL (0.0-1.1) Eosinophils # (Auto) 0.2 x10^3/uL (0.0-0.7) Basophils # (Auto) 0.1 x10^3/uL (0.0-0.2) Sodium Level 133 mmol/L (136-145) Potassium Level 3.9 mmol/L (3.5-5.1) Chloride Level 96 mmol/L (98-107) Carbon Dioxide Level 24 mmol/L (21-32) Anion Gap 13 (6-14) Blood Urea Nitrogen 26 mg/dL (7-20) Creatinine 5.0 mg/dL (0.6-1.0) Estimated GFR (Cockcroft-Gault) 8.5 BUN/Creatinine Ratio 5 (6-20) Glucose Level 336 mg/dL (70-99) Hemoglobin A1c 7.5 % (4.8-5.6) Calcium Level 7.9 mg/dL (8.5-10.1) Total Bilirubin 1.2 mg/dL (0.2-1.0) Aspartate Amino Transf (AST/SGOT) 17 U/L (15-37) Alanine Aminotransferase (ALT/SGPT) 14 U/L (14-59) Alkaline Phosphatase 101 U/L (46-116) Total Protein 7.4 g/dL (6.4-8.2) Albumin 2.2 g/dL (3.4-5.0) Albumin/Globulin Ratio 0.4 (1.0-1.7) Glucose (Fingerstick) 324 mg/dL (70-99) 293 mg/dL (70-99) 202 mg/dL (70-99) Test 10/17/18 04:10 10/17/18 08:08 Random Vancomycin Level 16.6 mcg/mL Glucose (Fingerstick) 157 mg/dL (70-99) Laboratory Tests Test 10/16/18 11:17 10/16/18 16:35 10/17/18 04:10 10/17/18 08:08 Glucose (Fingerstick) 293 mg/dL (70-99) 202 mg/dL (70-99) 157 mg/dL (70-99) Random Vancomycin Level 16.6 mcg/mL Microbiology 10/15/18 Urine Culture - Final, Complete 10/15/18 Urine Culture Result 1 (DARIN) - Final, Complete Medications Current Medications Morphine Sulfate (Morphine Sulfate) 4 mg PRN Q15MIN PRN IV/SQ PAIN GREATER THAN 3/10 Last administered on 10/15/18at 18:50; Start 10/15/18 at 14:15; Stop at 14:14; Status DC Insulin Human Regular (HumuLIN R VIAL) 10 unit 1X ONCE IV ; Start 10/15/18 at 16:45; Stop 10/15/18 at 16:46; Status Cancel Insulin Human Regular (HumuLIN R VIAL) 5 unit 1X ONCE IV Last administered on 10/15/18at 17:04; Start 10/15/18 at 17:15; Stop 10/15/18 at 17:16; Status DC Ondansetron HCl (Zofran) 4 mg PRN Q8HRS PRN IV NAUSEA/VOMITING; Start 10/15/18 at 19:15; Stop 10/16/18 at 19:14; Status DC Morphine Sulfate (Morphine Sulfate) 4 mg PRN Q2HR PRN IV PAIN; Start 10/15/18 at 19:15; Stop 10/16/18 at 19:14; Status DC Insulin Human Lispro (HumaLOG) 0-7 UNITS TIDWMEALS SQ Last administered on 10/17at 09:17; Start 10/16/18 at 08:00 Dextrose (Dextrose 50%-Water Syringe) 12.5 gm PRN Q15MIN PRN IV SEE COMMENTS; Start 10/15/18 at 19:15 Ceftriaxone Sodium (Rocephin) 1 gm Q24H IVP Last administered on 10/15/18at 22: 27; Start 10/15/18 at 20:00; Stop 10/16/18 at 10:39; Status DC Zolpidem Tartrate (Ambien) 5 mg PRN QHS PRN PO INSOMNIA Last administered on at 22:27; Start 10/15/18 at 22:15; Stop 10/16/18 at 22:30; Status DC Aspirin (Ecotrin) 325 mg DAILYWBKFT PO Last administered on 10/16/18at 13:43; Start 10/16/18 at 10:00 Clonidine HCl (Catapres) 0.2 mg DAILY PO Last administered on 10/16/18at 13:40; Start 10/16/18 at 09:00 Diclofenac Sodium (Voltaren) 1 ronel BID TP Last administered on 10/17/18at 08:57 ; Start 10/16/18 at 09:00 Famotidine (Pepcid) 20 mg QODAY PO ; Start 10/16/18 at 09:00; Stop 10/16/18 at 09:35; Status DC Gabapentin (Neurontin) 100 mg DAILY PO Last administered on 10/17/18at 08:45; Start 10/16/18 at 09:00 Acetaminophen/ Hydrocodone Bitart (Lortab 5/325) 2 tab PRN Q6HRS PRN PO PAIN Last administered on 10/17/18at 09:22; Start 10/16/18 at 08:30 Insulin Glargine (Lantus) 15 units DAILY SQ Last administered on 10/17/18 09: 15; Start 10/16/18 at 09:00 Insulin Human Lispro (HumaLOG) 5 units TIDWMEALS SQ Last administered on 09:16; Start 10/16/18 at 12:00 Lactobacillus Rhamnosus (Culturelle) 1 cap BID PO Last administered on 08:45; Start 10/16/18 at 09:00 Lactulose (Lactulose) 10 gm PRN TID PRN PO CONSTIPATION; Start 10/16/18 at 08: 30; Stop 10/16/18 at 09:35; Status DC Levothyroxine Sodium (Synthroid) 125 mcg DAILY06 PO Last administered on 05:05; Start 10/16/18 at 09:00 Metoprolol Succinate (Toprol Xl) 25 mg DAILY PO Last administered on 10/16/18 13:41; Start 10/16/18 at 09:00 Rifaximin (Xifaxan) 550 mg BID PO Last administered on 10/16/18 13:40; Start 10/16/18 at 09:00; Stop 10/16/18 at 16:03; Status DC Sertraline HCl (Zoloft) 75 mg DAILY PO Last administered on 10/17/18 08:47; Start 10/16/18 at 09:00 Sevelamer Carbonate (Renvela) 800 mg TIDWMEALS PO Last administered on 08:44; Start 10/16/18 at 12:00 Isosorbide Mononitrate (Imdur) 30 mg DAILY PO Last administered on 10/16/18 13 :42; Start 10/16/18 at 09:00 Lactulose (Lactulose) 10 gm TID PO Last administered on 10/16/18 20:52; Start 10/16/18 at 14:00 Rifaximin (Xifaxan) 550 mg Q12HR PO Last administered on 10/17/18 08:57; Start 10/16/18 at 10:00 Pantoprazole Sodium (Protonix) 40 mg DAILYAC PO Last administered on 10/17/18 08:44; Start 10/16/18 at 10:00 Piperacillin Sod/ Tazobactam Sod 2.25 gm/Sodium Chloride 50 ml @ 100 mls/hr Q8HRS IV Last administered on 10/17/18at 05:05; Start 10/16/18 at 11:00 Vancomycin HCl (Vanco Per Pharmacy) 1 each PRN DAILY PRN MC SEE COMMENTS Last administered on 10/16/18at 16:10; Start 10/16/18 at 10:45 Vancomycin HCl 1.75 gm/Sodium Chloride 500 ml @ 250 mls/hr 1X ONCE IV Last administered on 10/16/18at 15:24; Start 10/16/18 at 11:00; Stop 10/16/18 at 12:59 ; Status DC Vancomycin HCl (Vancomycin Random Level) 1 each 1X ONCE MC Last administered on 10/17/18at 05:05; Start 10/17/18 at 06:00; Stop 10/17/18 at 06:01; Status DC Iohexol (Omnipaque 350 Mg/ml) 100 ml 1X ONCE IV ; Start 10/16/18 at 17:15; Stop 10/16/18 at 17:16; Status DC Info (CONTRAST GIVEN -- Rx MONITORING) 1 each PRN DAILY PRN MC SEE COMMENTS; Start 10/16/18 at 17:30; Stop 10/18/18 at 17:29 Nystatin (Nystop) 1 ronel BID TP Last administered on 10/16/18at 21:30; Start at 21:30 Temazepam (Restoril) 7.5 mg PRN QHS PRN PO INSOMNIA; Start 10/16/18 at 22:30 Active Scripts Active Zofran (Ondansetron Hcl) 4 Mg Tablet 1 Tab PO Q6HRS Cephalexin 500 Mg Tablet 1 Tab PO BID Humalog (Insulin Lispro) 100 Unit/1 Ml Insuln.pen 5 Units SQ TIDWMEALS 28 Days Culturelle (Lactobacillus Rhamnosus Gg) 1 Each Cap.sprink 1 Cap PO BID 28 Days Lantus Solostar (Insulin Glargine,Hum.rec.anlog) 100 Unit/1 Ml Insuln.pen 15 Units SQ DAILY 28 Days Cipro (Ciprofloxacin Hcl) 250 Mg Tablet 250 Mg PO DAILY 10 Days Lactulose 20 Gm/30 Ml Solution 10 Gm PO PRN TID PRN 10 Days Aspirin Ec (Aspirin) 325 Mg Tablet.dr 325 Mg PO DAILYWBKFT 30 Days Reported Calcium Acetate 667 Mg Tablet 667 Mg PO BID Calcium Acetate 667 Mg Tablet 1,334 Mg PO TIDWMEALS Vitamin D (Cholecalciferol (Vitamin D3)) 50,000 Unit Capsule 50,000 Unit PO DAILY Tizanidine Hcl 2 Mg Capsule 2 Mg PO BID PRN Meclizine Hcl 25 Mg Tablet 1 Tab PO TID Voltaren (Diclofenac Sodium) 100 Gm Gel..gram. 1 Gm TP BID Hydrocodone-Apap 5-325 (Hydrocodone Bit/Acetaminophen) 1 Each Tablet 2 Tab PO PRN Q6HRS PRN Clonidine Hcl 0.2 Mg Tablet 0.2 Mg PO DAILY Gabapentin (Gabapentin) 100 Mg Capsule 100 Mg PO DAILY Zoloft (Sertraline Hcl) 50 Mg Tablet 75 Mg PO DAILY Renvela (Sevelamer Carbonate) 800 Mg Tablet 1 Tab PO TIDWMEALS Levothyroxine Sodium 175 Mcg Tablet 125 Mcg PO DAILYAC Dialyvite [place] D Tablet (Multivitamin, Min Cmb#25/Fa/D3) 1 Each Tablet 1 Each PO DAILY Metoprolol Succinate ( Xl ) (Metoprolol Succinate) 25 Mg Tab.er.24h 25 Mg PO DAILY Ondansetron Hcl 4 Mg Tablet 4 Mg PO Q6HRS PRN Zolpidem Tartrate 5 Mg Tablet 5 Mg PO PRN QHS PRN Famotidine 20 Mg Tablet 20 Mg PO DAILY Xifaxan (Rifaximin) 550 Mg Tablet 1 Tab PO BID Isosorbide Dinitrate 30 Mg Tablet 1 Tab PO DAILY Vitals/I & O Vital Sign - Last 24 Hours 10/16/18 10/16/18 10/16/18 10/16/18 11:00 13:40 13:41 13:42 Temp 97.8 97.8 Pulse 75 75 75 75 Resp 18 B/P (MAP) 142/58 (86) 142/58 142/58 142/58 Pulse Ox 94 O2 Delivery Room Air 10/16/18 10/16/18 10/16/18 10/17/18 15:00 19:00 23:00 00:36 Temp 97.8 98.8 98.2 97.8 98.8 98.2 Pulse 78 58 63 Resp 18 18 20 B/P (MAP) 145/54 (84) 99/45 (63) 126/60 (82) Pulse Ox 94 97 100 O2 Delivery Room Air Room Air 10/17/18 10/17/18 10/17/18 10/17/18 01:31 03:00 07:00 09:22 Temp 98.2 98.4 98.2 98.4 Pulse 57 56 Resp 16 16 16 B/P (MAP) 95/35 (55) 120/41 (67) Pulse Ox 98 96 96 O2 Delivery Room Air Room Air Room Air Room Air Intake and Output 10/16/18 10/16/18 10/17/18 14:59 22:59 06:59 Intake Total 300 ml 360 ml 520 ml Balance 300 ml 360 ml 520 ml IVIS SAWYER MD Oct 17, 2018 09:27
[2018-10-17] MEDS ORDERED: IV NORMAL SALINE 1000ML BAG 1,000 ML IV PRN ×2 (09:28)
[2018-10-17] MEDS ORDERED: ALBUMIN HUMAN 25% 200 ML IV PRN (09:30)
[2018-10-17] MEDS ORDERED: DIALYSIS PATIENT. MC PRN ×2 (09:30)
--- NOTE | 2018-10-17 10:00 | PDOC ---
Infectious Disease Note Subjective Subjective c/o right shoulder pain and weakness Denies F/C/S/N/V/SOA ROS ROS per HPI otherwise neg Vital Sign Vital Signs Vital Signs Date Time Temp Pulse Resp B/P (MAP) Pulse Ox O2 Delivery O2 Flow Rate FiO2 10/17/18 09:22 16 96 Room Air 10/17/18 07:00 98.4 56 120/41 (67) 98.4 Physical Exam PHYSICAL EXAM GENERAL: Up in the chair, alert, NAD HEENT: Oral cavity, pharynx is dry. She has normal conjunctivae. NECK: Supple. LUNGS: Decreased at bases. HEART: S1 and S2. ABDOMEN: Obese, soft, mildly tender, is tender to the right side. There is no guarding, there is no rebound. Does have an umbilical hernia that is reducible. EXTREMITIES: Without clubbing, cyanosis. Chronic changes lower extremities. Right foot bandaged. SKIN: No rash NEUROLOGIC: Alert, responds appropriately PIV ok Labs Lab Laboratory Tests Test 10/16/18 11:17 10/16/18 16:35 10/17/18 04:10 10/17/18 08:08 Glucose (Fingerstick) 293 mg/dL (70-99) 202 mg/dL (70-99) 157 mg/dL (70-99) Random Vancomycin Level 16.6 mcg/mL Right arterial 1. Moderate generalized atherosclerotic plaquing. 2. No high-grade focal femoral-popliteal stenosis is identified. 3. Mild degradation of the distal Doppler waveforms. Micro URINE CULTURE RES 1 Final Comment Mixed urogenital georgi Objective Assessment Right foot diabetic plantar ulcer, 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 Encephalopathy, better History of pseudomonas on 09/08/2018. Chronic kidney disease, on hemodialysis. Cirrhosis. History of toe cellulitis and wound that is healed. Shoulder pain without swelling. Plan Plan of Care Vanc and Zosyn Random [id number] MRI report pending Await further vascular f/u will likely need I and D Await Ortho eval shoulder D/w Dr. Huitron - needs BKA but she wants a second opinion Attending Co-Sign Attending Co-Sign The patient was seen and interviewed as well as examined at the bedside. The chart was reviewed. The case was discussed. Agree with the plan of care. JOELLE GUTIERREZ APRN Oct 17, 2018 10:00 KJ MEZA MD Oct 17, 2018 14:01
--- NOTE | 2018-10-17 11:28 | PDOC ---
Dialysis Progress Note Dialysis Note Dialysis Note Seen on Hemodialysis, tolerating treatment Okay so far Vitals on Hemodialysis General Appearance: Awake: Alert Oriented x 2-3 Neck: No JVD or JVP Chest: CTA [place] Heart: S1 S2 Abdomen - Soft NT, ? Obese vs distended Extremities - + Edema ESRD: Dialysis as below F 180 NR 3.15 Hrs 3 K 2.5 Ca 140 Na 35 HC03 Qb 350 + Qd 500+ Heparin 0 Units Uf 1 Kgs or to dry weight as tolerated May give 25-50 gms of 25% Albumin if needed to maintain Hemodynamic stability Treatment plan reviewed and discussed with locum tenens Vitals Vital Signs Vital Signs Date Time Temp Pulse Resp B/P (MAP) Pulse Ox O2 Delivery O2 Flow Rate FiO2 10/17/18 09:22 16 96 Room Air 10/17/18 07:00 98.4 56 120/41 (67) 98.4 Labs Last Labs Laboratory Tests Test 10/15/18 13:41 10/15/18 13:50 10/15/18 15:00 10/15/18 15:41 Glucose (Fingerstick) 440 mg/dL (70-99) White Blood Count 4.9 x10^3/uL (4.0-11.0) Red Blood Count 3.24 x10^6/uL (3.50-5.40) Hemoglobin 10.0 g/dL (12.0-15.5) Hematocrit 29.9 % (36.0-47.0) Mean Corpuscular Volume 92 fL (79-100) Mean Corpuscular Hemoglobin 31 pg (25-35) Mean Corpuscular Hemoglobin Concent 34 g/dL (31-37) Red Cell Distribution Width 16.8 % (11.5-14.5) Platelet Count 71 x10^3/uL (140-400) Neutrophils (%) (Auto) 71 % (31-73) Lymphocytes (%) (Auto) 10 % (24-48) Monocytes (%) (Auto) 16 % (0-9) Eosinophils (%) (Auto) 2 % (0-3) Basophils (%) (Auto) 1 % (0-3) Neutrophils # (Auto) 3.5 x10^3uL (1.8-7.7) Lymphocytes # (Auto) 0.5 x10^3/uL (1.0-4.8) Monocytes # (Auto) 0.8 x10^3/uL (0.0-1.1) Eosinophils # (Auto) 0.1 x10^3/uL (0.0-0.7) Basophils # (Auto) 0.1 x10^3/uL (0.0-0.2) Erythrocyte Sedimentation Rate 30 (0-25) Sodium Level 134 mmol/L (136-145) Potassium Level 3.9 mmol/L (3.5-5.1) Chloride Level 95 mmol/L (98-107) Carbon Dioxide Level 26 mmol/L (21-32) Anion Gap 13 (6-14) Blood Urea Nitrogen 23 mg/dL (7-20) Creatinine 4.7 mg/dL (0.6-1.0) Estimated GFR (Cockcroft-Gault) 9.1 BUN/Creatinine Ratio 5 (6-20) Glucose Level 476 mg/dL (70-99) Lactic Acid Level 2.0 mmol/L (0.4-2.0) Calcium Level 7.7 mg/dL (8.5-10.1) Magnesium Level 1.7 mg/dL (1.8-2.4) Total Bilirubin 1.1 mg/dL (0.2-1.0) Aspartate Amino Transf (AST/SGOT) 19 U/L (15-37) Alanine Aminotransferase (ALT/SGPT) 14 U/L (14-59) Alkaline Phosphatase 110 U/L (46-116) Creatine Kinase 78 U/L (26-192) Creatine Kinase MB (Mass) 1.6 ng/mL (0.0-3.6) Creatine Kinase MB Relative Index 2.1 % (0-4) Troponin I Quantitative 0.017 ng/mL (0.000-0.055) C-Reactive Protein, Quantitative 55.5 mg/L (0-3.3) ZC-Mhq-P-Type Natriuretic Peptide 57579 pg/mL (0-124) Total Protein 6.8 g/dL (6.4-8.2) Albumin 2.2 g/dL (3.4-5.0) Albumin/Globulin Ratio 0.5 (1.0-1.7) Ammonia 47 mcmol/L (11-34) Urine Collection Type Unknown Urine Color Yellow Urine Clarity Hazy Urine pH 5.5 Urine Specific [place] 1.020 Urine Protein 100 mg/dL (NEG-TRACE) Urine Glucose (UA) >=1000 mg/dL (NEG) Urine Ketones (Stick) Negative mg/dL (NEG) Urine Blood Large (NEG) Urine Nitrite Negative (NEG) Urine Bilirubin Negative (NEG) Urine Urobilinogen Dipstick 0.2 mg/dL (0.2 mg/dL) Urine Leukocyte Esterase Moderate (NEG) Urine RBC 3-5 /HPF (0-2) Urine WBC 20-40 /HPF (0-4) Urine Squamous Epithelial Cells Many /LPF Urine Bacteria Many /HPF (0-FEW) Test 10/16/18 04:10 10/16/18 08:03 10/16/18 11:17 10/16/18 16:35 White Blood Count 6.8 x10^3/uL (4.0-11.0) Red Blood Count 3.37 x10^6/uL (3.50-5.40) Hemoglobin 10.3 g/dL (12.0-15.5) Hematocrit 30.9 % (36.0-47.0) Mean Corpuscular Volume 92 fL (79-100) Mean Corpuscular Hemoglobin 31 pg (25-35) Mean Corpuscular Hemoglobin Concent 34 g/dL (31-37) Red Cell Distribution Width 16.7 % (11.5-14.5) Platelet Count 84 x10^3/uL (140-400) Neutrophils (%) (Auto) 71 % (31-73) Lymphocytes (%) (Auto) 11 % (24-48) Monocytes (%) (Auto) 15 % (0-9) Eosinophils (%) (Auto) 3 % (0-3) Basophils (%) (Auto) 1 % (0-3) Neutrophils # (Auto) 4.8 x10^3uL (1.8-7.7) Lymphocytes # (Auto) 0.7 x10^3/uL (1.0-4.8) Monocytes # (Auto) 1.0 x10^3/uL (0.0-1.1) Eosinophils # (Auto) 0.2 x10^3/uL (0.0-0.7) Basophils # (Auto) 0.1 x10^3/uL (0.0-0.2) Sodium Level 133 mmol/L (136-145) Potassium Level 3.9 mmol/L (3.5-5.1) Chloride Level 96 mmol/L (98-107) Carbon Dioxide Level 24 mmol/L (21-32) Anion Gap 13 (6-14) Blood Urea Nitrogen 26 mg/dL (7-20) Creatinine 5.0 mg/dL (0.6-1.0) Estimated GFR (Cockcroft-Gault) 8.5 BUN/Creatinine Ratio 5 (6-20) Glucose Level 336 mg/dL (70-99) Hemoglobin A1c 7.5 % (4.8-5.6) Calcium Level 7.9 mg/dL (8.5-10.1) Total Bilirubin 1.2 mg/dL (0.2-1.0) Aspartate Amino Transf (AST/SGOT) 17 U/L (15-37) Alanine Aminotransferase (ALT/SGPT) 14 U/L (14-59) Alkaline Phosphatase 101 U/L (46-116) Total Protein 7.4 g/dL (6.4-8.2) Albumin 2.2 g/dL (3.4-5.0) Albumin/Globulin Ratio 0.4 (1.0-1.7) Glucose (Fingerstick) 324 mg/dL (70-99) 293 mg/dL (70-99) 202 mg/dL (70-99) Test 10/17/18 04:10 10/17/18 08:08 Random Vancomycin Level 16.6 mcg/mL Glucose (Fingerstick) 157 mg/dL (70-99) Laboratory Tests Test 10/16/18 16:35 10/17/18 04:10 10/17/18 08:08 Glucose (Fingerstick) 202 mg/dL (70-99) 157 mg/dL (70-99) Random Vancomycin Level 16.6 mcg/mL Assessment Assessment Problems Medical Problems: (1) Cirrhosis of liver with ascites Status: Acute (2) Hyperglycemia Status: Acute (3) Open wound of right foot Status: Acute (4) UTI (urinary tract infection) Status: Acute Plan Plan of Care Problems Medical Problems: (1) Cirrhosis of liver with ascites Status: Acute (2) Hyperglycemia Status: Acute (3) Open wound of right foot Status: Acute (4) UTI (urinary tract infection) Status: Acute RALPH ALONZO MD Oct 17, 2018 11:28
--- NOTE | 2018-10-17 13:29 | PDOC ---
G I PROGRESS NOTE Subjective Still with complaints of abdominal pain; indicates roughly RLQ. Physical Exam Lungs clear. RRR Abdomen soft, obese. Reducible umbilical hernia. Tender, indurated area roughly RLQ, but clearly skin/abdominal wall-related. Feels warmer than other skin apart from this. Review of Relevant I have reviewed the following items karyn (where applicable) has been applied. Labs Laboratory Tests Test 10/15/18 13:41 10/15/18 13:50 10/15/18 15:00 10/15/18 15:41 Glucose (Fingerstick) 440 mg/dL (70-99) White Blood Count 4.9 x10^3/uL (4.0-11.0) Red Blood Count 3.24 x10^6/uL (3.50-5.40) Hemoglobin 10.0 g/dL (12.0-15.5) Hematocrit 29.9 % (36.0-47.0) Mean Corpuscular Volume 92 fL (79-100) Mean Corpuscular Hemoglobin 31 pg (25-35) Mean Corpuscular Hemoglobin Concent 34 g/dL (31-37) Red Cell Distribution Width 16.8 % (11.5-14.5) Platelet Count 71 x10^3/uL (140-400) Neutrophils (%) (Auto) 71 % (31-73) Lymphocytes (%) (Auto) 10 % (24-48) Monocytes (%) (Auto) 16 % (0-9) Eosinophils (%) (Auto) 2 % (0-3) Basophils (%) (Auto) 1 % (0-3) Neutrophils # (Auto) 3.5 x10^3uL (1.8-7.7) Lymphocytes # (Auto) 0.5 x10^3/uL (1.0-4.8) Monocytes # (Auto) 0.8 x10^3/uL (0.0-1.1) Eosinophils # (Auto) 0.1 x10^3/uL (0.0-0.7) Basophils # (Auto) 0.1 x10^3/uL (0.0-0.2) Erythrocyte Sedimentation Rate 30 (0-25) Sodium Level 134 mmol/L (136-145) Potassium Level 3.9 mmol/L (3.5-5.1) Chloride Level 95 mmol/L (98-107) Carbon Dioxide Level 26 mmol/L (21-32) Anion Gap 13 (6-14) Blood Urea Nitrogen 23 mg/dL (7-20) Creatinine 4.7 mg/dL (0.6-1.0) Estimated GFR (Cockcroft-Gault) 9.1 BUN/Creatinine Ratio 5 (6-20) Glucose Level 476 mg/dL (70-99) Lactic Acid Level 2.0 mmol/L (0.4-2.0) Calcium Level 7.7 mg/dL (8.5-10.1) Magnesium Level 1.7 mg/dL (1.8-2.4) Total Bilirubin 1.1 mg/dL (0.2-1.0) Aspartate Amino Transf (AST/SGOT) 19 U/L (15-37) Alanine Aminotransferase (ALT/SGPT) 14 U/L (14-59) Alkaline Phosphatase 110 U/L (46-116) Creatine Kinase 78 U/L (26-192) Creatine Kinase MB (Mass) 1.6 ng/mL (0.0-3.6) Creatine Kinase MB Relative Index 2.1 % (0-4) Troponin I Quantitative 0.017 ng/mL (0.000-0.055) C-Reactive Protein, Quantitative 55.5 mg/L (0-3.3) PU-Xex-O-Type Natriuretic Peptide 69405 pg/mL (0-124) Total Protein 6.8 g/dL (6.4-8.2) Albumin 2.2 g/dL (3.4-5.0) Albumin/Globulin Ratio 0.5 (1.0-1.7) Ammonia 47 mcmol/L (11-34) Urine Collection Type Unknown Urine Color Yellow Urine Clarity Hazy Urine pH 5.5 Urine Specific Sunflower 1.020 Urine Protein 100 mg/dL (NEG-TRACE) Urine Glucose (UA) >=1000 mg/dL (NEG) Urine Ketones (Stick) Negative mg/dL (NEG) Urine Blood Large (NEG) Urine Nitrite Negative (NEG) Urine Bilirubin Negative (NEG) Urine Urobilinogen Dipstick 0.2 mg/dL (0.2 mg/dL) Urine Leukocyte Esterase Moderate (NEG) Urine RBC 3-5 /HPF (0-2) Urine WBC 20-40 /HPF (0-4) Urine Squamous Epithelial Cells Many /LPF Urine Bacteria Many /HPF (0-FEW) Test 10/16/18 04:10 10/16/18 08:03 10/16/18 11:17 10/16/18 16:35 White Blood Count 6.8 x10^3/uL (4.0-11.0) Red Blood Count 3.37 x10^6/uL (3.50-5.40) Hemoglobin 10.3 g/dL (12.0-15.5) Hematocrit 30.9 % (36.0-47.0) Mean Corpuscular Volume 92 fL (79-100) Mean Corpuscular Hemoglobin 31 pg (25-35) Mean Corpuscular Hemoglobin Concent 34 g/dL (31-37) Red Cell Distribution Width 16.7 % (11.5-14.5) Platelet Count 84 x10^3/uL (140-400) Neutrophils (%) (Auto) 71 % (31-73) Lymphocytes (%) (Auto) 11 % (24-48) Monocytes (%) (Auto) 15 % (0-9) Eosinophils (%) (Auto) 3 % (0-3) Basophils (%) (Auto) 1 % (0-3) Neutrophils # (Auto) 4.8 x10^3uL (1.8-7.7) Lymphocytes # (Auto) 0.7 x10^3/uL (1.0-4.8) Monocytes # (Auto) 1.0 x10^3/uL (0.0-1.1) Eosinophils # (Auto) 0.2 x10^3/uL (0.0-0.7) Basophils # (Auto) 0.1 x10^3/uL (0.0-0.2) Sodium Level 133 mmol/L (136-145) Potassium Level 3.9 mmol/L (3.5-5.1) Chloride Level 96 mmol/L (98-107) Carbon Dioxide Level 24 mmol/L (21-32) Anion Gap 13 (6-14) Blood Urea Nitrogen 26 mg/dL (7-20) Creatinine 5.0 mg/dL (0.6-1.0) Estimated GFR (Cockcroft-Gault) 8.5 BUN/Creatinine Ratio 5 (6-20) Glucose Level 336 mg/dL (70-99) Hemoglobin A1c 7.5 % (4.8-5.6) Calcium Level 7.9 mg/dL (8.5-10.1) Total Bilirubin 1.2 mg/dL (0.2-1.0) Aspartate Amino Transf (AST/SGOT) 17 U/L (15-37) Alanine Aminotransferase (ALT/SGPT) 14 U/L (14-59) Alkaline Phosphatase 101 U/L (46-116) Total Protein 7.4 g/dL (6.4-8.2) Albumin 2.2 g/dL (3.4-5.0) Albumin/Globulin Ratio 0.4 (1.0-1.7) Glucose (Fingerstick) 324 mg/dL (70-99) 293 mg/dL (70-99) 202 mg/dL (70-99) Test 10/17/18 04:10 10/17/18 08:08 Random Vancomycin Level 16.6 mcg/mL Glucose (Fingerstick) 157 mg/dL (70-99) Laboratory Tests Test 10/16/18 16:35 10/17/18 04:10 10/17/18 08:08 Glucose (Fingerstick) 202 mg/dL (70-99) 157 mg/dL (70-99) Random Vancomycin Level 16.6 mcg/mL Microbiology 10/15/18 Urine Culture - Final, Complete 10/15/18 Urine Culture Result 1 (DARIN) - Final, Complete Vitals/I & O Vital Sign - Last 24 Hours 10/16/18 10/16/18 10/16/18 10/16/18 13:40 13:41 13:42 15:00 Temp 97.8 97.8 Pulse 75 75 75 78 Resp 18 B/P (MAP) 142/58 142/58 142/58 145/54 (84) Pulse Ox 94 O2 Delivery Room Air 10/16/18 10/16/18 10/17/18 10/17/18 19:00 23:00 00:36 01:31 Temp 98.8 98.2 98.8 98.2 Pulse 58 63 Resp 18 20 B/P (MAP) 99/45 (63) 126/60 (82) Pulse Ox 97 100 O2 Delivery Room Air Room Air 10/17/18 10/17/18 10/17/18 03:00 07:00 09:22 Temp 98.2 98.4 98.2 98.4 Pulse 57 56 Resp 16 16 16 B/P (MAP) 95/35 (55) 120/41 (67) Pulse Ox 98 96 96 O2 Delivery Room Air Room Air Room Air Intake and Output 10/16/18 10/16/18 10/17/18 14:59 22:59 06:59 Intake Total 300 ml 360 ml 520 ml Balance 300 ml 360 ml 520 ml Problem List Problems Medical Problems: (1) Cirrhosis of liver with ascites Status: Acute (2) Hyperglycemia Status: Acute (3) Open wound of right foot Status: Acute (4) UTI (urinary tract infection) Status: Acute Assessment Abdominal pain; on exam, seems likely from skin/underlying structures and not intra-abdominal. Not typical appearance, but cellulitis? Plan of Care: Continue current Tx, LUDWIG Hernandez MD Oct 17, 2018 13:29
[2018-10-17 15:00] VITALS: BP 115/38
[2018-10-17] MEDS: VANCOMYCIN PER PHARMACY MC PRN (15:19)
[2018-10-17] MEDS: ISOSORBIDE MONONITRATE ER 30 MG TAB.ER.24H PO SCH (15:21)
--- NOTE | 2018-10-17 15:41 | PDOC ---
Provider Note Provider Note MRI completed and not yet read. I reviewed images. Motion degradation. I believe there is a small rotator cuff tear, and shoulder effusion, but not the massive tear that I was expecting. I will wait for radiology report. BLAINE HURTADO MD Oct 17, 2018 15:41
--- NOTE | 2018-10-17 16:42 | NUR ---
Patient underwent hemodialysis this morning at HD unit, held dose of clonidine and metoprolol. She's back at the unit at 1430, no complaints of pain; right foot dressing changed. Patient ate her lunch post dialysis, family members present at bedside.
[2018-10-17] MEDS: VANCOMYCIN 500 MG in IV NORMAL SALINE 100ML 100 ML IV SCH (17:25)
[2018-10-17 19:00] VITALS: BP 102/42
[2018-10-17 22:32] VITALS: BP 110/45
[2018-10-18 02:45] VITALS: BP 111/45
[2018-10-18] MEDS: LEVOTHYROXINE 125 MCG TABLET PO SCH (05:23)
[2018-10-18] MEDS: PIPERACILLIN/TAZOBACTAM 2.25 GM in IV NORMAL SALINE 50ML 50 ML IV SCH ×3 (05:24→20:58)
[2018-10-18 07:00] VITALS: BP 116/43
[2018-10-18] MEDS: ASPIRIN ENTERIC COATED 325 MG TABLET.DR. PO SCH ×2 (08:00→08:48)
[2018-10-18] MEDS: INSULIN LISPRO 300 UNITS/3 ML INSULN.PEN. SQ SCH ×6 (08:00→17:03)
--- NOTE | 2018-10-18 08:22 | PDOC ---
PROGRESS NOTES Chief Complaint Chief Complaint Cirrhosis Foot ulcer ESRD on HD DM2 History of Present Illness History of Present Illness Ms. Douglass is a 73 year old female with severe right shoulder pain and abdominal pain. Her pain to her abdomen fluctuates, worse today, no quigley in stool, Also 10/10 right shoulder pain, she can barely move the arm due to pain. she was last dialyzed on Friday, and abd pain had fluctated in the past few days prior to admit. 10/17: Seen by vascular for right foot, ID for h/o infection, nephro for ESRD, general surgery for panniculitis. Seen by ortho for shoulder pain. 10/18: Right foot very painful today. No BM. Abdomen swelling. Tolerated diet ok. Seen on dialysis. MRI shoulder resulted - Rotator cuff tendinosis. There does appear to be a small full-thickness rotator cuff tear of the supraspinatus tendon, and a probable mild subscapularis tendon tear. Mild subdeltoid bursal fluid or bursitis. She is feeling shoulder pain, foot pain, breast pain today all on the right from her fall. She is depressed now that nearly all physicians have told her she should undergo BKA of RLE. Labs reviewed. D/W nursing staff Plan: Consult vascular surgery - EBONY of right leg. Patient would like second opinion on BKA recommendation, will reach out to ortho for this. GI to see for cirrhosis Nephro to see for ESRD ID for history of MDRO infection - pseudomonas last month Vitals Vitals Vital Signs Date Time Temp Pulse Resp B/P (MAP) Pulse Ox O2 Delivery O2 Flow Rate FiO2 10/18/18 07:00 98.1 64 19 116/43 (67) 92 Room Air 98.1 Physical Exam Physical Exam GENERAL: Up in the chair, alert, NAD HEENT: Oral cavity, pharynx is dry. She has normal conjunctivae. NECK: Supple. LUNGS: Decreased at bases. HEART: S1 and S2. ABDOMEN: Obese, soft, mildly tender, is tender to the right side. There is no guarding, there is no rebound. Does have an umbilical hernia that is reducible. EXTREMITIES: Without clubbing, cyanosis. Chronic changes lower extremities. Right foot bandaged. SKIN: No rash NEUROLOGIC: Alert, responds appropriately PIV ok General: Alert, Cooperative, No acute distress Heart: Regular rate Lungs: Clear Abdomen: Soft, Other (mild TTP, hernia reducible) Extremities: Other (the right shoulder is tender to palpation around the greater tuberosity and rotator cuff. The gross alignment is normal and there is no effusion or erythema. Passive range of motion is very limited, and was painful at the extremes, only about 40 forward flexion and 40 of abduction before it got quite painful and she said "I'm going to hit you if you continue" . She has a pulsatile dialysis shunt in the right upper arm near the distal biceps, anterior humerus antecubital fossa region. The biceps tendon seems to be intact to resisted motion, and there does not seem to be pain or deformity at the elbow. Her distal sensation and motor function are preserved.) Skin: Other (right foot dressing with some sanguinous drainage) Labs LABS Laboratory Tests Test 10/17/18 13:29 10/17/18 17:10 10/17/18 20:19 10/18/18 07:29 Glucose (Fingerstick) 111 mg/dL (70-99) 138 mg/dL (70-99) 169 mg/dL (70-99) 198 mg/dL (70-99) Assessment and Plan Assessmemt and Plan Problems Medical Problems: (1) Cirrhosis of liver with ascites Status: Acute (2) Hyperglycemia Status: Acute (3) Open wound of right foot Status: Acute (4) UTI (urinary tract infection) Status: Acute Comment Review of Relevant I have reviewed the following items karyn (where applicable) has been applied. Labs Laboratory Tests Test 10/16/18 11:17 10/16/18 16:35 10/16/18 20:58 10/17/18 04:10 Glucose (Fingerstick) 293 mg/dL (70-99) 202 mg/dL (70-99) 147 mg/dL (70-99) Random Vancomycin Level 16.6 mcg/mL Test 10/17/18 08:08 10/17/18 13:29 10/17/18 17:10 10/17/18 20:19 Glucose (Fingerstick) 157 mg/dL (70-99) 111 mg/dL (70-99) 138 mg/dL (70-99) 169 mg/dL (70-99) Test 10/18/18 07:29 Glucose (Fingerstick) 198 mg/dL (70-99) Laboratory Tests Test 10/17/18 13:29 10/17/18 17:10 10/17/18 20:19 10/18/18 07:29 Glucose (Fingerstick) 111 mg/dL (70-99) 138 mg/dL (70-99) 169 mg/dL (70-99) 198 mg/dL (70-99) Microbiology 10/15/18 Urine Culture - Final, Complete 10/15/18 Urine Culture Result 1 (DARIN) - Final, Complete Medications Current Medications Morphine Sulfate (Morphine Sulfate) 4 mg PRN Q15MIN PRN IV/SQ PAIN GREATER THAN 3/10 Last administered on 10/15/18at 18:50; Start 10/15/18 at 14:15; Stop at 14:14; Status DC Insulin Human Regular (HumuLIN R VIAL) 10 unit 1X ONCE IV ; Start 10/15/18 at 16:45; Stop 10/15/18 at 16:46; Status Cancel Insulin Human Regular (HumuLIN R VIAL) 5 unit 1X ONCE IV Last administered on 10/15/18at 17:04; Start 10/15/18 at 17:15; Stop 10/15/18 at 17:16; Status DC Ondansetron HCl (Zofran) 4 mg PRN Q8HRS PRN IV NAUSEA/VOMITING; Start 10/15/18 at 19:15; Stop 10/16/18 at 19:14; Status DC Morphine Sulfate (Morphine Sulfate) 4 mg PRN Q2HR PRN IV PAIN; Start 10/15/18 at 19:15; Stop 10/16/18 at 19:14; Status DC Insulin Human Lispro (HumaLOG) 0-7 UNITS TIDWMEALS SQ Last administered on 10/17at 09:17; Start 10/16/18 at 08:00 Dextrose (Dextrose 50%-Water Syringe) 12.5 gm PRN Q15MIN PRN IV SEE COMMENTS; Start 10/15/18 at 19:15 Ceftriaxone Sodium (Rocephin) 1 gm Q24H IVP Last administered on 10/15/18at 22: 27; Start 10/15/18 at 20:00; Stop 10/16/18 at 10:39; Status DC Zolpidem Tartrate (Ambien) 5 mg PRN QHS PRN PO INSOMNIA Last administered on at 22:27; Start 10/15/18 at 22:15; Stop 10/16/18 at 22:30; Status DC Aspirin (Ecotrin) 325 mg DAILYWBKFT PO Last administered on 10/16/18 13:43; Start 10/16/18 at 10:00 Clonidine HCl (Catapres) 0.2 mg DAILY PO Last administered on 10/16/18 13:40; Start 10/16/18 at 09:00 Diclofenac Sodium (Voltaren) 1 ronel BID TP Last administered on 10/17/18 21:32 ; Start 10/16/18 at 09:00 Famotidine (Pepcid) 20 mg QODAY PO ; Start 10/16/18 at 09:00; Stop 10/16/18 at 09:35; Status DC Gabapentin (Neurontin) 100 mg DAILY PO Last administered on 10/17/18 08:45; Start 10/16/18 at 09:00 Acetaminophen/ Hydrocodone Bitart (Lortab 5/325) 2 tab PRN Q6HRS PRN PO PAIN Last administered on 10/17/18 21:31; Start 10/16/18 at 08:30 Insulin Glargine (Lantus) 15 units DAILY SQ Last administered on 10/17/18 09: 15; Start 10/16/18 at 09:00 Insulin Human Lispro (HumaLOG) 5 units TIDWMEALS SQ Last administered on 18:19; Start 10/16/18 at 12:00 Lactobacillus Rhamnosus (Culturelle) 1 cap BID PO Last administered on 21:30; Start 10/16/18 at 09:00 Lactulose (Lactulose) 10 gm PRN TID PRN PO CONSTIPATION; Start 10/16/18 at 08: 30; Stop 10/16/18 at 09:35; Status DC Levothyroxine Sodium (Synthroid) 125 mcg DAILY06 PO Last administered on 05:23; Start 10/16/18 at 09:00 Metoprolol Succinate (Toprol Xl) 25 mg DAILY PO Last administered on 10/16/18 13:41; Start 10/16/18 at 09:00 Rifaximin (Xifaxan) 550 mg BID PO Last administered on 10/16/18 13:40; Start 10/16/18 at 09:00; Stop 10/16/18 at 16:03; Status DC Sertraline HCl (Zoloft) 75 mg DAILY PO Last administered on 10/17/18at 08:47; Start 10/16/18 at 09:00 Sevelamer Carbonate (Renvela) 800 mg TIDWMEALS PO Last administered on at 18:10; Start 10/16/18 at 12:00 Isosorbide Mononitrate (Imdur) 30 mg DAILY PO Last administered on 10/17/18at 15 :21; Start 10/16/18 at 09:00 Lactulose (Lactulose) 10 gm TID PO Last administered on 10/16/18at 20:52; Start 10/16/18 at 14:00 Rifaximin (Xifaxan) 550 mg Q12HR PO Last administered on 10/17/18 21:29; Start 10/16/18 at 10:00 Pantoprazole Sodium (Protonix) 40 mg DAILYAC PO Last administered on 10/17/18at 08:44; Start 10/16/18 at 10:00 Piperacillin Sod/ Tazobactam Sod 2.25 gm/Sodium Chloride 50 ml @ 100 mls/hr Q8HRS IV Last administered on 10/18/18at 05:24; Start 10/16/18 at 11:00 Vancomycin HCl (Vanco Per Pharmacy) 1 each PRN DAILY PRN MC SEE COMMENTS Last administered on 10/17/18at 15:19; Start 10/16/18 at 10:45 Vancomycin HCl 1.75 gm/Sodium Chloride 500 ml @ 250 mls/hr 1X ONCE IV Last administered on 10/16/18at 15:24; Start 10/16/18 at 11:00; Stop 10/16/18 at 12:59 ; Status DC Vancomycin HCl (Vancomycin Random Level) 1 each 1X ONCE MC Last administered on 10/17/18at 05:05; Start 10/17/18 at 06:00; Stop 10/17/18 at 06:01; Status DC Iohexol (Omnipaque 350 Mg/ml) 100 ml 1X ONCE IV ; Start 10/16/18 at 17:15; Stop 10/16/18 at 17:16; Status DC Info (CONTRAST GIVEN -- Rx MONITORING) 1 each PRN DAILY PRN MC SEE COMMENTS; Start 10/16/18 at 17:30; Stop 10/18/18 at 17:29 Nystatin (Nystop) 1 ronel BID TP Last administered on 10/17/18at 21:32; Start at 21:30 Temazepam (Restoril) 7.5 mg PRN QHS PRN PO INSOMNIA; Start 10/16/18 at 22:30 Sodium Chloride 1,000 ml @ 1,000 mls/hr Q1H PRN IV hypotension; Start 10/17/18 at 09:28; Stop 10/17/18 at 15:27; Status DC Albumin Human 200 ml @ 200 mls/hr 1X PRN PRN IV Hypotension; Start 10/17/18 at 09:30; Stop 10/17/18 at 15:29; Status DC Sodium Chloride 1,000 ml @ 400 mls/hr Q2H30M PRN IV PATENCY; Start 10/17/18 at 09:28; Stop 10/17/18 at 21:27; Status DC Info (PHARMACY MONITORING -- do not chart) 1 each PRN DAILY PRN MC SEE COMMENTS ; Start 10/17/18 at 09:30; Stop 10/17/18 at 09:34; Status DC Info (PHARMACY MONITORING -- do not chart) 1 each PRN DAILY PRN MC SEE COMMENTS ; Start 10/17/18 at 09:30 Vancomycin HCl 500 mg/Sodium Chloride 100 ml @ 100 mls/hr QTUTHSA IV Last administered on 10/17/18at 17:25; Start 10/17/18 at 16:00 Active Scripts Active Zofran (Ondansetron Hcl) 4 Mg Tablet 1 Tab PO Q6HRS Cephalexin 500 Mg Tablet 1 Tab PO BID Humalog (Insulin Lispro) 100 Unit/1 Ml Insuln.pen 5 Units SQ TIDWMEALS 28 Days Culturelle (Lactobacillus Rhamnosus Gg) 1 Each Cap.sprink 1 Cap PO BID 28 Days Lantus Solostar (Insulin Glargine,Hum.rec.anlog) 100 Unit/1 Ml Insuln.pen 15 Units SQ DAILY 28 Days Cipro (Ciprofloxacin Hcl) 250 Mg Tablet 250 Mg PO DAILY 10 Days Lactulose 20 Gm/30 Ml Solution 10 Gm PO PRN TID PRN 10 Days Aspirin Ec (Aspirin) 325 Mg Tablet.dr 325 Mg PO DAILYWBKFT 30 Days Reported Calcium Acetate 667 Mg Tablet 667 Mg PO BID Calcium Acetate 667 Mg Tablet 1,334 Mg PO TIDWMEALS Vitamin D (Cholecalciferol (Vitamin D3)) 50,000 Unit Capsule 50,000 Unit PO DAILY Tizanidine Hcl 2 Mg Capsule 2 Mg PO BID PRN Meclizine Hcl 25 Mg Tablet 1 Tab PO TID Voltaren (Diclofenac Sodium) 100 Gm Gel..gram. 1 Gm TP BID Hydrocodone-Apap 5-325 (Hydrocodone Bit/Acetaminophen) 1 Each Tablet 2 Tab PO PRN Q6HRS PRN Clonidine Hcl 0.2 Mg Tablet 0.2 Mg PO DAILY Gabapentin (Gabapentin) 100 Mg Capsule 100 Mg PO DAILY Zoloft (Sertraline Hcl) 50 Mg Tablet 75 Mg PO DAILY Renvela (Sevelamer Carbonate) 800 Mg Tablet 1 Tab PO TIDWMEALS Levothyroxine Sodium 175 Mcg Tablet 125 Mcg PO DAILYAC Dialyvite [place] D Tablet (Multivitamin, Min Cmb#25/Fa/D3) 1 Each Tablet 1 Each PO DAILY Metoprolol Succinate ( Xl ) (Metoprolol Succinate) 25 Mg Tab.er.24h 25 Mg PO DAILY Ondansetron Hcl 4 Mg Tablet 4 Mg PO Q6HRS PRN Zolpidem Tartrate 5 Mg Tablet 5 Mg PO PRN QHS PRN Famotidine 20 Mg Tablet 20 Mg PO DAILY Xifaxan (Rifaximin) 550 Mg Tablet 1 Tab PO BID Isosorbide Dinitrate 30 Mg Tablet 1 Tab PO DAILY Vitals/I & O Vital Sign - Last 24 Hours 10/17/18 10/17/18 10/17/18 10/17/18 09:22 15:00 15:21 15:25 Temp 98.2 98.2 Pulse 61 69 Resp 16 18 16 B/P (MAP) 115/38 (63) 115/38 Pulse Ox 96 94 96 O2 Delivery Room Air Room Air Room Air 10/17/18 10/17/18 10/17/18 10/17/18 19:00 20:00 21:31 22:32 Temp 97.9 98.1 97.9 98.1 Pulse 58 55 Resp 16 17 18 B/P (MAP) 102/42 (62) 110/45 (66) Pulse Ox 94 94 96 O2 Delivery Room Air Room Air Room Air Room Air 10/17/18 10/18/18 10/18/18 23:05 02:45 07:00 Temp 97.4 98.1 97.4 98.1 Pulse 59 64 Resp B/P (MAP) 111/45 (67) 116/43 (67) Pulse Ox 96 94 92 O2 Delivery Room Air Room Air Room Air Intake and Output 10/17/18 10/17/18 10/18/18 15:00 23:00 07:00 Intake Total 50 ml Output Total 10 ml Balance 50 ml -10 ml IVIS SAWYER MD Oct 18, 2018 08:22
[2018-10-18] MEDS: LACTULOSE 20 GM/30 ML SOLUTION. PO SCH ×4 (08:44→20:56)
[2018-10-18] MEDS: SERTRALINE 50 MG TABLET. PO SCH (08:45)
[2018-10-18] MEDS: METOPROLOL SUCC 24HR ER 25 MG TAB.ER.24H. PO SCH (08:46)
[2018-10-18] MEDS: cloNIDine HCL 0.2 MG TABLET PO SCH (08:46)
[2018-10-18] MEDS: rifAXIMin 550 MG TABLET PO SCH ×2 (08:46→20:57)
[2018-10-18] MEDS: LACTOBACILLUS RHAMNOSUS GG 1 CAPSULE. PO SCH ×2 (08:46→20:57)
[2018-10-18] MEDS: ISOSORBIDE MONONITRATE ER 30 MG TAB.ER.24H PO SCH (08:47)
[2018-10-18] MEDS: GABAPENTIN 100 MG CAPSULE. PO SCH (08:47)
[2018-10-18] MEDS: PANTOPRAZOLE 40 MG TABLET.DR. PO SCH (08:47)
[2018-10-18] MEDS: SEVELAMER CARBONATE 800 MG TABLET. PO SCH ×3 (08:47→16:49)
[2018-10-18] MEDS: NYSTATIN TOPICAL POWDER 15GM BOTTLE. TP SCH ×2 (08:58→20:55)
[2018-10-18] MEDS: DICLOFENAC SODIUM 1% TOPICAL GEL 100GM TUBE. TP SCH ×2 (09:00→20:56)
--- NOTE | 2018-10-18 09:35 | PDOC ---
Infectious Disease Note Subjective Subjective Feeling better this morning Got some sleep, + appetite Right shoulder pain/limited ROM No F/C/S ROS ROS per HPI otherwise neg Vital Sign Vital Signs Vital Signs Date Time Temp Pulse Resp B/P (MAP) Pulse Ox O2 Delivery O2 Flow Rate FiO2 10/18/18 08:47 64 116/43 10/18/18 07:00 98.1 19 92 Room Air 98.1 Physical Exam PHYSICAL EXAM GENERAL: Sitting on the side of the bed, alert, eating breakfast. In chair on my arrival but looks better HEENT: Oral cavity, pharynx is dry. NECK: Supple. LUNGS: Decreased at bases. HEART: S1 and S2. ABDOMEN: Obese, soft EXTREMITIES: Without clubbing, cyanosis. Chronic changes lower extremities, trace edema, RUE-AVF unremarkable. Right foot bandaged. SKIN: No rash NEUROLOGIC: Alert, responds appropriately PIV ok Labs Lab Laboratory Tests Test 10/17/18 13:29 10/17/18 17:10 10/17/18 20:19 10/18/18 07:29 Glucose (Fingerstick) 111 mg/dL (70-99) 138 mg/dL (70-99) 169 mg/dL (70-99) 198 mg/dL (70-99) Micro URINE CULTURE RES 1 Final Comment Mixed urogenital georgi MRI shoulder IMPRESSION: 1. Moderate motion degradation. 2. Rotator cuff tendinosis. There does appear to be a small full-thickness rotator cuff tear of the supraspinatus tendon, and a probable mild subscapularis tendon tear. Mild subdeltoid bursal fluid or bursitis. 3. Diffuse soft tissue and intramuscular edema or strain. Objective Assessment Right foot diabetic plantar ulcer, 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 Encephalopathy, better History of pseudomonas on 09/08/2018. Chronic kidney disease, on hemodialysis via AVF Cirrhosis. History of toe cellulitis and wound that is healed. Shoulder pain without swelling. ? rotator tear. Ortho is following Plan Plan of Care Vanc and Zosyn Random [id number] Probiotics Vacular recommending BKA but she wants a second opinion - Ortho consulted f/u am labs Supportive care Attending Co-Sign Attending Co-Sign The patient was seen and interviewed as well as examined at the bedside. The chart was reviewed. The case was discussed. Agree with the plan of care. JOELLE GUTIERREZ APRN Oct 18, 2018 09:35 KJ MEZA MD Oct 18, 2018 11:33
--- NOTE | 2018-10-18 09:39 | RAD ---
MR of the right shoulder HISTORY: Pain and weakness. Recent injury. TECHNIQUE: Routine multiplanar sequences are obtained. No prior for comparison. FINDINGS: Moderate motion degradation. The acromioclavicular joint is degenerative with small undersurface osteophytes. Small effusion of the joint. There is extensive rotator cuff tendinosis. Tear of the supraspinatus tendon appears to be full-thickness, coronal series 8, image 8 and 9, and no more than 1 cm in diameter. No gross retraction. Small subdeltoid bursal effusion. Subscapularis tendinosis with probable partial tearing. Mild muscle volume loss and fatty infiltration, as well as intramuscular edema. Small glenohumeral joint effusion. Labrum an biceps tendon not adequately visualized to exclude a tear. No evidence of acute fracture or bone destruction. Diffuse soft tissue and intramuscular edema. IMPRESSION: 1. Moderate motion degradation. 2. Rotator cuff tendinosis. There does appear to be a small full-thickness rotator cuff tear of the supraspinatus tendon, and a probable mild subscapularis tendon tear. Mild subdeltoid bursal fluid or bursitis. 3. Diffuse soft tissue and intramuscular edema or strain. Electronically signed by: Tony Montelongo MD (10/18/2018 9:37 AM) [facility]
[2018-10-18] MEDS: INSULIN GLARGINE 300 UNITS/3 ML INSULN.PEN. SQ SCH (09:42)
[2018-10-18 09:49] LABS: BASO % 1 % (0-3); EOS # 0.2 x10^3/uL (0.0-0.7); EOS % 3 % (0-3); HEMATOCRIT 30.5 % (36.0-47.0); HEMOGLOBIN 10.3 g/dL (12.0-15.5); LYMPH # 0.5 x10^3/uL (1.0-4.8); LYMPH % 8 % (24-48); MEAN CORPUSCULAR HEMOGLOBIN 31 pg (25-35); MEAN CORPUSCULAR HGB CONC 34 g/dL (31-37); MEAN CORPUSCULAR VOLUME 92 fL (79-100); MONO # 0.6 x10^3/uL (0.0-1.1); MONO % 9 % (0-9); NEUT # 4.8 x10^3uL (1.8-7.7); NEUT % 79 % (31-73); PLATELET COUNT 71 x10^3/uL (140-400); RED BLOOD COUNT 3.31 x10^6/uL (3.50-5.40); RED CELL DISTRIBUTION WIDTH 16.7 % (11.5-14.5); WHITE BLOOD COUNT 6.1 x10^3/uL (4.0-11.0)
[2018-10-18 10:01] LABS: ALBUMIN 1.9 g/dL (3.4-5.0); CALCIUM 7.4 mg/dL (8.5-10.1); PHOSPHORUS 4.7 mg/dL (2.6-4.7); POTASSIUM 3.7 mmol/L (3.5-5.1)
[2018-10-18 11:00] VITALS: BP 85/39
[2018-10-18] MEDS ORDERED: IV NORMAL SALINE 500ML BAG 250 ML IV PRN (12:30)
[2018-10-18] MEDS ORDERED: methylPREDNISolone ACETATE 40 MG/ML VIAL. IM ONE (13:45)
[2018-10-18] MEDS ORDERED: BUPIVACAINE MPF 0.25% 10 ML VIAL. IJ ONE (13:45)
--- NOTE | 2018-10-18 13:59 | PDOC ---
SURGICAL PROGRESS NOTE Subjective Pt with persistent lower abd pain, but eren diet Vital Signs Vital Signs Date Time Temp Pulse Resp B/P (MAP) Pulse Ox O2 Delivery O2 Flow Rate FiO2 10/18/18 11:00 98.1 50 16 85/39 (54) 95 Room Air 98.1 I&O Intake and Output 10/18/18 07:00 Intake Total 50 ml Output Total 10 ml Balance 40 ml Intake Oral 50 ml Output Urine Total 10 ml # Voids 2 General: Alert, Oriented X3, Cooperative, No acute distress Abdomen: Soft, Other (mild induration bilateral lower abd, reducible hernia) Labs Laboratory Tests Test 10/16/18 16:35 10/16/18 20:58 10/17/18 04:10 10/17/18 08:08 Glucose (Fingerstick) 202 mg/dL (70-99) 147 mg/dL (70-99) 157 mg/dL (70-99) Random Vancomycin Level 16.6 mcg/mL Test 10/17/18 13:29 10/17/18 17:10 10/17/18 20:19 10/18/18 07:29 Glucose (Fingerstick) 111 mg/dL (70-99) 138 mg/dL (70-99) 169 mg/dL (70-99) 198 mg/dL (70-99) Test 10/18/18 09:35 10/18/18 10:58 White Blood Count 6.1 x10^3/uL (4.0-11.0) Red Blood Count 3.31 x10^6/uL (3.50-5.40) Hemoglobin 10.3 g/dL (12.0-15.5) Hematocrit 30.5 % (36.0-47.0) Mean Corpuscular Volume 92 fL (79-100) Mean Corpuscular Hemoglobin 31 pg (25-35) Mean Corpuscular Hemoglobin Concent 34 g/dL (31-37) Red Cell Distribution Width 16.7 % (11.5-14.5) Platelet Count 71 x10^3/uL (140-400) Neutrophils (%) (Auto) 79 % (31-73) Lymphocytes (%) (Auto) 8 % (24-48) Monocytes (%) (Auto) 9 % (0-9) Eosinophils (%) (Auto) 3 % (0-3) Basophils (%) (Auto) 1 % (0-3) Neutrophils # (Auto) 4.8 x10^3uL (1.8-7.7) Lymphocytes # (Auto) 0.5 x10^3/uL (1.0-4.8) Monocytes # (Auto) 0.6 x10^3/uL (0.0-1.1) Eosinophils # (Auto) 0.2 x10^3/uL (0.0-0.7) Basophils # (Auto) 0.0 x10^3/uL (0.0-0.2) Sodium Level 136 mmol/L (136-145) Potassium Level 3.7 mmol/L (3.5-5.1) Chloride Level 97 mmol/L (98-107) Carbon Dioxide Level 28 mmol/L (21-32) Anion Gap 11 (6-14) Blood Urea Nitrogen 23 mg/dL (7-20) Creatinine 4.0 mg/dL (0.6-1.0) Estimated GFR (Cockcroft-Gault) 11.0 Glucose Level 208 mg/dL (70-99) Calcium Level 7.4 mg/dL (8.5-10.1) Phosphorus Level 4.7 mg/dL (2.6-4.7) Albumin 1.9 g/dL (3.4-5.0) Glucose (Fingerstick) 167 mg/dL (70-99) Laboratory Tests Test 10/17/18 17:10 10/17/18 20:19 10/18/18 07:29 10/18/18 09:35 Glucose (Fingerstick) 138 mg/dL (70-99) 169 mg/dL (70-99) 198 mg/dL (70-99) White Blood Count 6.1 x10^3/uL (4.0-11.0) Red Blood Count 3.31 x10^6/uL (3.50-5.40) Hemoglobin 10.3 g/dL (12.0-15.5) Hematocrit 30.5 % (36.0-47.0) Mean Corpuscular Volume 92 fL (79-100) Mean Corpuscular Hemoglobin 31 pg (25-35) Mean Corpuscular Hemoglobin Concent 34 g/dL (31-37) Red Cell Distribution Width 16.7 % (11.5-14.5) Platelet Count 71 x10^3/uL (140-400) Neutrophils (%) (Auto) 79 % (31-73) Lymphocytes (%) (Auto) 8 % (24-48) Monocytes (%) (Auto) 9 % (0-9) Eosinophils (%) (Auto) 3 % (0-3) Basophils (%) (Auto) 1 % (0-3) Neutrophils # (Auto) 4.8 x10^3uL (1.8-7.7) Lymphocytes # (Auto) 0.5 x10^3/uL (1.0-4.8) Monocytes # (Auto) 0.6 x10^3/uL (0.0-1.1) Eosinophils # (Auto) 0.2 x10^3/uL (0.0-0.7) Basophils # (Auto) 0.0 x10^3/uL (0.0-0.2) Sodium Level 136 mmol/L (136-145) Potassium Level 3.7 mmol/L (3.5-5.1) Chloride Level 97 mmol/L (98-107) Carbon Dioxide Level 28 mmol/L (21-32) Anion Gap 11 (6-14) Blood Urea Nitrogen 23 mg/dL (7-20) Creatinine 4.0 mg/dL (0.6-1.0) Estimated GFR (Cockcroft-Gault) 11.0 Glucose Level 208 mg/dL (70-99) Calcium Level 7.4 mg/dL (8.5-10.1) Phosphorus Level 4.7 mg/dL (2.6-4.7) Albumin 1.9 g/dL (3.4-5.0) Test 10/18/18 10:58 Glucose (Fingerstick) 167 mg/dL (70-99) Problem List Problems Medical Problems: (1) Cirrhosis of liver with ascites Status: Acute (2) Hyperglycemia Status: Acute (3) Open wound of right foot Status: Acute (4) UTI (urinary tract infection) Status: Acute Assessment/Plan mild panniculitis cont supportive care and nystatin ARIC BALDERAS MD Oct 18, 2018 13:59
[2018-10-18 15:00] VITALS: BP 92/46
--- NOTE | 2018-10-18 15:23 | PDOC ---
PROGRESS NOTES Subjective Subjective Reviewed right shoulder MRI results with her. Small rotator cuff tear and some edema. Rotator cuff tendinitis. She and I and her also discussed her right foot wound and I examined that. She has a rocker-bottom deformity, poor sensation, plantar ulcer that tracks to bone. The recent MRI did not show osteomyelitis. She has not been septic. She had a wound debridement about a month ago. Her says the wound is getting smaller and smaller with wound care and time. Objective Vital Signs Vital Signs Date Time Temp Pulse Resp B/P (MAP) Pulse Ox O2 Delivery O2 Flow Rate FiO2 10/18/18 11:00 98.1 50 16 85/39 (54) 95 Room Air 98.1 Physical Exam Right shoulder is still mildly tender to palpation. Active range of motion is poor. The right foot has a plantar ulcer 3 x 3 cm, at the center of her rocker- bottom deformity. Decreased pulses, and decreased sensation. I did not detect a followed her. No purulent drainage. Deep ulcer that probably tracks to bone on the plantar aspect. She does not appear septic Labs Laboratory Tests Test 10/16/18 16:35 10/16/18 20:58 10/17/18 04:10 10/17/18 08:08 Glucose (Fingerstick) 202 mg/dL (70-99) 147 mg/dL (70-99) 157 mg/dL (70-99) Random Vancomycin Level 16.6 mcg/mL Test 10/17/18 13:29 10/17/18 17:10 10/17/18 20:19 10/18/18 07:29 Glucose (Fingerstick) 111 mg/dL (70-99) 138 mg/dL (70-99) 169 mg/dL (70-99) 198 mg/dL (70-99) Test 10/18/18 09:35 10/18/18 10:58 White Blood Count 6.1 x10^3/uL (4.0-11.0) Red Blood Count 3.31 x10^6/uL (3.50-5.40) Hemoglobin 10.3 g/dL (12.0-15.5) Hematocrit 30.5 % (36.0-47.0) Mean Corpuscular Volume 92 fL (79-100) Mean Corpuscular Hemoglobin 31 pg (25-35) Mean Corpuscular Hemoglobin Concent 34 g/dL (31-37) Red Cell Distribution Width 16.7 % (11.5-14.5) Platelet Count 71 x10^3/uL (140-400) Neutrophils (%) (Auto) 79 % (31-73) Lymphocytes (%) (Auto) 8 % (24-48) Monocytes (%) (Auto) 9 % (0-9) Eosinophils (%) (Auto) 3 % (0-3) Basophils (%) (Auto) 1 % (0-3) Neutrophils # (Auto) 4.8 x10^3uL (1.8-7.7) Lymphocytes # (Auto) 0.5 x10^3/uL (1.0-4.8) Monocytes # (Auto) 0.6 x10^3/uL (0.0-1.1) Eosinophils # (Auto) 0.2 x10^3/uL (0.0-0.7) Basophils # (Auto) 0.0 x10^3/uL (0.0-0.2) Sodium Level 136 mmol/L (136-145) Potassium Level 3.7 mmol/L (3.5-5.1) Chloride Level 97 mmol/L (98-107) Carbon Dioxide Level 28 mmol/L (21-32) Anion Gap 11 (6-14) Blood Urea Nitrogen 23 mg/dL (7-20) Creatinine 4.0 mg/dL (0.6-1.0) Estimated GFR (Cockcroft-Gault) 11.0 Glucose Level 208 mg/dL (70-99) Calcium Level 7.4 mg/dL (8.5-10.1) Phosphorus Level 4.7 mg/dL (2.6-4.7) Albumin 1.9 g/dL (3.4-5.0) Glucose (Fingerstick) 167 mg/dL (70-99) Laboratory Tests Test 10/17/18 17:10 10/17/18 20:19 10/18/18 07:29 10/18/18 09:35 Glucose (Fingerstick) 138 mg/dL (70-99) 169 mg/dL (70-99) 198 mg/dL (70-99) White Blood Count 6.1 x10^3/uL (4.0-11.0) Red Blood Count 3.31 x10^6/uL (3.50-5.40) Hemoglobin 10.3 g/dL (12.0-15.5) Hematocrit 30.5 % (36.0-47.0) Mean Corpuscular Volume 92 fL (79-100) Mean Corpuscular Hemoglobin 31 pg (25-35) Mean Corpuscular Hemoglobin Concent 34 g/dL (31-37) Red Cell Distribution Width 16.7 % (11.5-14.5) Platelet Count 71 x10^3/uL (140-400) Neutrophils (%) (Auto) 79 % (31-73) Lymphocytes (%) (Auto) 8 % (24-48) Monocytes (%) (Auto) 9 % (0-9) Eosinophils (%) (Auto) 3 % (0-3) Basophils (%) (Auto) 1 % (0-3) Neutrophils # (Auto) 4.8 x10^3uL (1.8-7.7) Lymphocytes # (Auto) 0.5 x10^3/uL (1.0-4.8) Monocytes # (Auto) 0.6 x10^3/uL (0.0-1.1) Eosinophils # (Auto) 0.2 x10^3/uL (0.0-0.7) Basophils # (Auto) 0.0 x10^3/uL (0.0-0.2) Sodium Level 136 mmol/L (136-145) Potassium Level 3.7 mmol/L (3.5-5.1) Chloride Level 97 mmol/L (98-107) Carbon Dioxide Level 28 mmol/L (21-32) Anion Gap 11 (6-14) Blood Urea Nitrogen 23 mg/dL (7-20) Creatinine 4.0 mg/dL (0.6-1.0) Estimated GFR (Cockcroft-Gault) 11.0 Glucose Level 208 mg/dL (70-99) Calcium Level 7.4 mg/dL (8.5-10.1) Phosphorus Level 4.7 mg/dL (2.6-4.7) Albumin 1.9 g/dL (3.4-5.0) Test 10/18/18 10:58 Glucose (Fingerstick) 167 mg/dL (70-99) Assessment Assessment Right shoulder small rotator cuff tear. I recommend nonoperative treatment. She agrees with a cortisone injection today, and I will order physical therapy for the shoulder. The right foot has a plantar ulcer, draining wound, and she is high risk for poor wound healing with dialysis, diabetes and other comorbidities. There was no osteomyelitis on the recent MRI, and she is not currently septic. She and her both don't want to proceed with amputation at this time. I agree with Dr. Driscoll, amputation would be the best surgical choice for healing. She currently does not want any surgery and I think it is reasonable to continue wound care and antibiotics, with the caveat that if she gets septic or worsens she needs amputation urgently. She has not been on routine antibiotics, so adding antibiotics to her wound care may be helpful. They were offered hyperbaric treatment through , but deferred. She does have a [place] walker prescribed by Dr. Hunter at and I recommended she use that when she is out of bed to offload the ulcer. Plan Plan of Care Verbal and written consent was obtained. The skin was cleansed with isopropyl alcohol, and then prepared in sterile fashion with a Chlorhexidine swab. Topical ethyl chloride was used for skin anesthesia. I injected the right shoulder subacromial bursa with 40 mg of Depo-Medrol and 2 cc of 0.25% bupivacaine, under sterile technique. The patient tolerated the procedure well. A Band-Aid was placed BLAINE HURTADO MD Oct 18, 2018 15:23
[2018-10-18 19:00] VITALS: BP 128/46
[2018-10-18 23:00] VITALS: BP 113/48
[2018-10-19 03:00] VITALS: BP 116/51
[2018-10-19 04:32] LABS: BASO % 0 % (0-3); EOS # 0.1 x10^3/uL (0.0-0.7); EOS % 2 % (0-3); HEMATOCRIT 30.7 % (36.0-47.0); HEMOGLOBIN 10.4 g/dL (12.0-15.5); LYMPH # 0.5 x10^3/uL (1.0-4.8); LYMPH % 7 % (24-48); MEAN CORPUSCULAR HEMOGLOBIN 31 pg (25-35); MEAN CORPUSCULAR HGB CONC 34 g/dL (31-37); MEAN CORPUSCULAR VOLUME 91 fL (79-100); MONO # 0.6 x10^3/uL (0.0-1.1); MONO % 8 % (0-9); NEUT # 6.3 x10^3uL (1.8-7.7); NEUT % 84 % (31-73); PLATELET COUNT 91 x10^3/uL (140-400); RED BLOOD COUNT 3.36 x10^6/uL (3.50-5.40); RED CELL DISTRIBUTION WIDTH 16.6 % (11.5-14.5); WHITE BLOOD COUNT 7.5 x10^3/uL (4.0-11.0)
[2018-10-19 04:48] LABS: CALCIUM 7.5 mg/dL (8.5-10.1); CREATININE 4.5 mg/dL (0.6-1.0); GFR 9.6; PHOSPHORUS 5.2 mg/dL (2.6-4.7)
[2018-10-19] MEDS: LEVOTHYROXINE 125 MCG TABLET PO SCH (06:03)
[2018-10-19] MEDS: PIPERACILLIN/TAZOBACTAM 2.25 GM in IV NORMAL SALINE 50ML 50 ML IV SCH ×3 (06:04→22:10)
[2018-10-19 07:00] VITALS: BP 127/40
[2018-10-19] MEDS: ASPIRIN ENTERIC COATED 325 MG TABLET.DR. PO SCH (08:00)
[2018-10-19] MEDS: INSULIN LISPRO 300 UNITS/3 ML INSULN.PEN. SQ SCH ×6 (08:05→18:02)
[2018-10-19] MEDS: GABAPENTIN 100 MG CAPSULE. PO SCH (08:43)
[2018-10-19] MEDS: PANTOPRAZOLE 40 MG TABLET.DR. PO SCH (08:54)
[2018-10-19] MEDS: ISOSORBIDE MONONITRATE ER 30 MG TAB.ER.24H PO SCH (08:54)
[2018-10-19] MEDS: METOPROLOL SUCC 24HR ER 25 MG TAB.ER.24H. PO SCH (08:55)
[2018-10-19] MEDS: cloNIDine HCL 0.2 MG TABLET PO SCH (08:56)
[2018-10-19] MEDS: rifAXIMin 550 MG TABLET PO SCH ×2 (08:56→21:07)
[2018-10-19] MEDS: SERTRALINE 50 MG TABLET. PO SCH (08:57)
[2018-10-19] MEDS: LACTOBACILLUS RHAMNOSUS GG 1 CAPSULE. PO SCH ×2 (08:59→21:07)
[2018-10-19] MEDS: SEVELAMER CARBONATE 800 MG TABLET. PO SCH ×3 (08:59→17:58)
[2018-10-19] MEDS: LACTULOSE 20 GM/30 ML SOLUTION. PO SCH ×3 (09:00→21:07)
[2018-10-19] MEDS: DICLOFENAC SODIUM 1% TOPICAL GEL 100GM TUBE. TP SCH ×2 (09:05→22:10)
[2018-10-19] MEDS: NYSTATIN TOPICAL POWDER 15GM BOTTLE. TP SCH ×2 (09:05→21:00)
[2018-10-19] MEDS: INSULIN GLARGINE 300 UNITS/3 ML INSULN.PEN. SQ SCH (09:42)
--- NOTE | 2018-10-19 09:44 | PDOC ---
SURGICAL PROGRESS NOTE Subjective Pt frustrated with her overall poor health "not much liver left", c/o right shoulder pain and abd wall pain Vital Signs Vital Signs Date Time Temp Pulse Resp B/P (MAP) Pulse Ox O2 Delivery O2 Flow Rate FiO2 10/19/18 08:56 68 136/49 10/19/18 07:00 97.8 18 94 Room Air 97.8 I&O Intake and Output 10/19/18 07:00 Intake Total 750 ml Balance 750 ml Intake Oral 600 ml IV Total 150 ml # Voids 2 # Bowel Movements 3 General: Alert, Oriented X3, Cooperative, mild distress Abdomen: Other (induration and edema bilateral pannus, mild erythema) Labs Laboratory Tests Test 10/17/18 13:29 10/17/18 17:10 10/17/18 20:19 10/18/18 07:29 Glucose (Fingerstick) 111 mg/dL (70-99) 138 mg/dL (70-99) 169 mg/dL (70-99) 198 mg/dL (70-99) Test 10/18/18 09:35 10/18/18 10:58 10/18/18 16:59 10/18/18 21:02 White Blood Count 6.1 x10^3/uL (4.0-11.0) Red Blood Count 3.31 x10^6/uL (3.50-5.40) Hemoglobin 10.3 g/dL (12.0-15.5) Hematocrit 30.5 % (36.0-47.0) Mean Corpuscular Volume 92 fL (79-100) Mean Corpuscular Hemoglobin 31 pg (25-35) Mean Corpuscular Hemoglobin Concent 34 g/dL (31-37) Red Cell Distribution Width 16.7 % (11.5-14.5) Platelet Count 71 x10^3/uL (140-400) Neutrophils (%) (Auto) 79 % (31-73) Lymphocytes (%) (Auto) 8 % (24-48) Monocytes (%) (Auto) 9 % (0-9) Eosinophils (%) (Auto) 3 % (0-3) Basophils (%) (Auto) 1 % (0-3) Neutrophils # (Auto) 4.8 x10^3uL (1.8-7.7) Lymphocytes # (Auto) 0.5 x10^3/uL (1.0-4.8) Monocytes # (Auto) 0.6 x10^3/uL (0.0-1.1) Eosinophils # (Auto) 0.2 x10^3/uL (0.0-0.7) Basophils # (Auto) 0.0 x10^3/uL (0.0-0.2) Sodium Level 136 mmol/L (136-145) Potassium Level 3.7 mmol/L (3.5-5.1) Chloride Level 97 mmol/L (98-107) Carbon Dioxide Level 28 mmol/L (21-32) Anion Gap 11 (6-14) Blood Urea Nitrogen 23 mg/dL (7-20) Creatinine 4.0 mg/dL (0.6-1.0) Estimated GFR (Cockcroft-Gault) 11.0 Glucose Level 208 mg/dL (70-99) Calcium Level 7.4 mg/dL (8.5-10.1) Phosphorus Level 4.7 mg/dL (2.6-4.7) Albumin 1.9 g/dL (3.4-5.0) Glucose (Fingerstick) 167 mg/dL (70-99) 153 mg/dL (70-99) 157 mg/dL (70-99) Test 10/19/18 03:55 10/19/18 07:36 White Blood Count 7.5 x10^3/uL (4.0-11.0) Red Blood Count 3.36 x10^6/uL (3.50-5.40) Hemoglobin 10.4 g/dL (12.0-15.5) Hematocrit 30.7 % (36.0-47.0) Mean Corpuscular Volume 91 fL (79-100) Mean Corpuscular Hemoglobin 31 pg (25-35) Mean Corpuscular Hemoglobin Concent 34 g/dL (31-37) Red Cell Distribution Width 16.6 % (11.5-14.5) Platelet Count 91 x10^3/uL (140-400) Neutrophils (%) (Auto) 84 % (31-73) Lymphocytes (%) (Auto) 7 % (24-48) Monocytes (%) (Auto) 8 % (0-9) Eosinophils (%) (Auto) 2 % (0-3) Basophils (%) (Auto) 0 % (0-3) Neutrophils # (Auto) 6.3 x10^3uL (1.8-7.7) Lymphocytes # (Auto) 0.5 x10^3/uL (1.0-4.8) Monocytes # (Auto) 0.6 x10^3/uL (0.0-1.1) Eosinophils # (Auto) 0.1 x10^3/uL (0.0-0.7) Basophils # (Auto) 0.0 x10^3/uL (0.0-0.2) Sodium Level 136 mmol/L (136-145) Potassium Level 4.0 mmol/L (3.5-5.1) Chloride Level 97 mmol/L (98-107) Carbon Dioxide Level 27 mmol/L (21-32) Anion Gap 12 (6-14) Blood Urea Nitrogen 29 mg/dL (7-20) Creatinine 4.5 mg/dL (0.6-1.0) Estimated GFR (Cockcroft-Gault) 9.6 Glucose Level 230 mg/dL (70-99) Calcium Level 7.5 mg/dL (8.5-10.1) Phosphorus Level 5.2 mg/dL (2.6-4.7) Albumin 2.0 g/dL (3.4-5.0) Glucose (Fingerstick) 225 mg/dL (70-99) Laboratory Tests Test 10/18/18 10:58 10/18/18 16:59 10/18/18 21:02 10/19/18 03:55 Glucose (Fingerstick) 167 mg/dL (70-99) 153 mg/dL (70-99) 157 mg/dL (70-99) White Blood Count 7.5 x10^3/uL (4.0-11.0) Red Blood Count 3.36 x10^6/uL (3.50-5.40) Hemoglobin 10.4 g/dL (12.0-15.5) Hematocrit 30.7 % (36.0-47.0) Mean Corpuscular Volume 91 fL (79-100) Mean Corpuscular Hemoglobin 31 pg (25-35) Mean Corpuscular Hemoglobin Concent 34 g/dL (31-37) Red Cell Distribution Width 16.6 % (11.5-14.5) Platelet Count 91 x10^3/uL (140-400) Neutrophils (%) (Auto) 84 % (31-73) Lymphocytes (%) (Auto) 7 % (24-48) Monocytes (%) (Auto) 8 % (0-9) Eosinophils (%) (Auto) 2 % (0-3) Basophils (%) (Auto) 0 % (0-3) Neutrophils # (Auto) 6.3 x10^3uL (1.8-7.7) Lymphocytes # (Auto) 0.5 x10^3/uL (1.0-4.8) Monocytes # (Auto) 0.6 x10^3/uL (0.0-1.1) Eosinophils # (Auto) 0.1 x10^3/uL (0.0-0.7) Basophils # (Auto) 0.0 x10^3/uL (0.0-0.2) Sodium Level 136 mmol/L (136-145) Potassium Level 4.0 mmol/L (3.5-5.1) Chloride Level 97 mmol/L (98-107) Carbon Dioxide Level 27 mmol/L (21-32) Anion Gap 12 (6-14) Blood Urea Nitrogen 29 mg/dL (7-20) Creatinine 4.5 mg/dL (0.6-1.0) Estimated GFR (Cockcroft-Gault) 9.6 Glucose Level 230 mg/dL (70-99) Calcium Level 7.5 mg/dL (8.5-10.1) Phosphorus Level 5.2 mg/dL (2.6-4.7) Albumin 2.0 g/dL (3.4-5.0) Test 10/19/18 07:36 Glucose (Fingerstick) 225 mg/dL (70-99) Problem List Problems Medical Problems: (1) Cirrhosis of liver with ascites Status: Acute (2) Hyperglycemia Status: Acute (3) Open wound of right foot Status: Acute (4) UTI (urinary tract infection) Status: Acute Assessment/Plan panniculitis cont supportive care, hopefully will improve with diuresis ARIC BALDERAS MD Oct 19, 2018 09:44
[2018-10-19 10:45] VITALS: BP 138/50
--- NOTE | 2018-10-19 11:03 | PDOC ---
Infectious Disease Note Subjective Subjective feeling ok ROS ROS no n/v/d/sob Vital Sign Vital Signs Vital Signs Date Time Temp Pulse Resp B/P (MAP) Pulse Ox O2 Delivery O2 Flow Rate FiO2 10/19/18 10:45 97.8 68 18 138/50 (79) 95 Room Air 97.8 Physical Exam PHYSICAL EXAM GENERAL: Sitting on the side of the bed, alert, eating breakfast. In chair on my arrival but looks better HEENT: Oral cavity, pharynx is dry. NECK: Supple. LUNGS: Decreased at bases. HEART: S1 and S2. ABDOMEN: Obese, soft EXTREMITIES: Without clubbing, cyanosis. Chronic changes lower extremities, trace edema, RUE-AVF unremarkable. Right foot bandaged. SKIN: No rash NEUROLOGIC: Alert, responds appropriately PIV ok Labs Lab Laboratory Tests Test 10/18/18 16:59 10/18/18 21:02 10/19/18 03:55 10/19/18 07:36 Glucose (Fingerstick) 153 mg/dL (70-99) 157 mg/dL (70-99) 225 mg/dL (70-99) White Blood Count 7.5 x10^3/uL (4.0-11.0) Red Blood Count 3.36 x10^6/uL (3.50-5.40) Hemoglobin 10.4 g/dL (12.0-15.5) Hematocrit 30.7 % (36.0-47.0) Mean Corpuscular Volume 91 fL (79-100) Mean Corpuscular Hemoglobin 31 pg (25-35) Mean Corpuscular Hemoglobin Concent 34 g/dL (31-37) Red Cell Distribution Width 16.6 % (11.5-14.5) Platelet Count 91 x10^3/uL (140-400) Neutrophils (%) (Auto) 84 % (31-73) Lymphocytes (%) (Auto) 7 % (24-48) Monocytes (%) (Auto) 8 % (0-9) Eosinophils (%) (Auto) 2 % (0-3) Basophils (%) (Auto) 0 % (0-3) Neutrophils # (Auto) 6.3 x10^3uL (1.8-7.7) Lymphocytes # (Auto) 0.5 x10^3/uL (1.0-4.8) Monocytes # (Auto) 0.6 x10^3/uL (0.0-1.1) Eosinophils # (Auto) 0.1 x10^3/uL (0.0-0.7) Basophils # (Auto) 0.0 x10^3/uL (0.0-0.2) Sodium Level 136 mmol/L (136-145) Potassium Level 4.0 mmol/L (3.5-5.1) Chloride Level 97 mmol/L (98-107) Carbon Dioxide Level 27 mmol/L (21-32) Anion Gap 12 (6-14) Blood Urea Nitrogen 29 mg/dL (7-20) Creatinine 4.5 mg/dL (0.6-1.0) Estimated GFR (Cockcroft-Gault) 9.6 Glucose Level 230 mg/dL (70-99) Calcium Level 7.5 mg/dL (8.5-10.1) Phosphorus Level 5.2 mg/dL (2.6-4.7) Albumin 2.0 g/dL (3.4-5.0) Micro Microbiology 10/15/18 Urine Culture - Final, Complete 10/15/18 Urine Culture Result 1 (DARIN) - Final, Complete Objective Assessment Right foot diabetic plantar ulcer, 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 Encephalopathy, better History of pseudomonas on 09/08/2018. Chronic kidney disease, on hemodialysis via AVF Cirrhosis. History of toe cellulitis and wound that is healed. Shoulder pain without swelling. ? rotator tear. Ortho is following Plan Plan of Care Vanc and Zosyn Random [id number] Probiotics Vacular and ortho and us recom amputation, f/u am labs Supportive care I d/w pt and grand daughter, pt is thinking about amputation, grand daughter encouraged her to have one ANUPAMA ALONZO MD Oct 19, 2018 11:03
--- NOTE | 2018-10-19 12:44 | PDOC ---
Subjective: Subjective: Was tearful when I saw, talked about possible amputation. Still has pain in right lower abdomen - better when standing. Tolerating PO and stooling. Talks about her brothers and sister and granddaughter and great-grandchildren. Objective: Objective: 4 stools charted? Vital Signs: Vital Signs Date Time Temp Pulse Resp B/P (MAP) Pulse Ox O2 Delivery O2 Flow Rate FiO2 10/19/18 10:45 97.8 68 18 138/50 (79) 95 Room Air 97.8 Labs: Laboratory Tests Test 10/18/18 16:59 10/18/18 21:02 10/19/18 03:55 10/19/18 07:36 Glucose (Fingerstick) 153 mg/dL 157 mg/dL 225 mg/dL White Blood Count 7.5 x10^3/uL Red Blood Count 3.36 x10^6/uL Hemoglobin 10.4 g/dL Hematocrit 30.7 % Mean Corpuscular Volume 91 fL Mean Corpuscular Hemoglobin 31 pg Mean Corpuscular Hemoglobin Concent 34 g/dL Red Cell Distribution Width 16.6 % Platelet Count 91 x10^3/uL Neutrophils (%) (Auto) 84 % Lymphocytes (%) (Auto) 7 % Monocytes (%) (Auto) 8 % Eosinophils (%) (Auto) 2 % Basophils (%) (Auto) 0 % Neutrophils # (Auto) 6.3 x10^3uL Lymphocytes # (Auto) 0.5 x10^3/uL Monocytes # (Auto) 0.6 x10^3/uL Eosinophils # (Auto) 0.1 x10^3/uL Basophils # (Auto) 0.0 x10^3/uL Sodium Level 136 mmol/L Potassium Level 4.0 mmol/L Chloride Level 97 mmol/L Carbon Dioxide Level 27 mmol/L Anion Gap 12 Blood Urea Nitrogen 29 mg/dL Creatinine 4.5 mg/dL Estimated GFR (Cockcroft-Gault) 9.6 Glucose Level 230 mg/dL Calcium Level 7.5 mg/dL Phosphorus Level 5.2 mg/dL Albumin 2.0 g/dL Test 10/19/18 11:04 Glucose (Fingerstick) 169 mg/dL PE: GEN: NAD LUNGS: room air HEART: RRR ABD: tender superficially RLQ, indurated but less erythema, reducible umb hernia NEURO/PSYCH: A & O 3, tearful A/P: Right foot ulcer, panniculitis ESRD on HD, DM, ACD Cirrhosis - small ascites on CT -- ?amputation considered Continue same per GI. Monitor ascites as needed. BRENDA DONOVAN Oct 19, 2018 12:44 TRI BOWERS MD Oct 19, 2018 13:02
--- NOTE | 2018-10-19 13:10 | PDOC ---
Renal-Progress Notes Subjective Notes Notes NOTHING NEW History of Present Illness Hx of present illness STABLE Vitals Vitals Vital Signs Date Time Temp Pulse Resp B/P (MAP) Pulse Ox O2 Delivery O2 Flow Rate FiO2 10/19/18 10:45 97.8 68 18 138/50 (79) 95 Room Air 97.8 Weight Weight [ ] I.O. Intake and Output Intake and Output 10/19/18 06:59 Intake Total 750 ml Balance 750 ml Intake Oral 600 ml IV Total 150 ml # Voids 2 # Bowel Movements 3 Labs Labs Laboratory Tests Test 10/18/18 16:59 10/18/18 21:02 10/19/18 03:55 10/19/18 07:36 Glucose (Fingerstick) 153 mg/dL (70-99) 157 mg/dL (70-99) 225 mg/dL (70-99) White Blood Count 7.5 x10^3/uL (4.0-11.0) Red Blood Count 3.36 x10^6/uL (3.50-5.40) Hemoglobin 10.4 g/dL (12.0-15.5) Hematocrit 30.7 % (36.0-47.0) Mean Corpuscular Volume 91 fL (79-100) Mean Corpuscular Hemoglobin 31 pg (25-35) Mean Corpuscular Hemoglobin Concent 34 g/dL (31-37) Red Cell Distribution Width 16.6 % (11.5-14.5) Platelet Count 91 x10^3/uL (140-400) Neutrophils (%) (Auto) 84 % (31-73) Lymphocytes (%) (Auto) 7 % (24-48) Monocytes (%) (Auto) 8 % (0-9) Eosinophils (%) (Auto) 2 % (0-3) Basophils (%) (Auto) 0 % (0-3) Neutrophils # (Auto) 6.3 x10^3uL (1.8-7.7) Lymphocytes # (Auto) 0.5 x10^3/uL (1.0-4.8) Monocytes # (Auto) 0.6 x10^3/uL (0.0-1.1) Eosinophils # (Auto) 0.1 x10^3/uL (0.0-0.7) Basophils # (Auto) 0.0 x10^3/uL (0.0-0.2) Sodium Level 136 mmol/L (136-145) Potassium Level 4.0 mmol/L (3.5-5.1) Chloride Level 97 mmol/L (98-107) Carbon Dioxide Level 27 mmol/L (21-32) Anion Gap 12 (6-14) Blood Urea Nitrogen 29 mg/dL (7-20) Creatinine 4.5 mg/dL (0.6-1.0) Estimated GFR (Cockcroft-Gault) 9.6 Glucose Level 230 mg/dL (70-99) Calcium Level 7.5 mg/dL (8.5-10.1) Phosphorus Level 5.2 mg/dL (2.6-4.7) Albumin 2.0 g/dL (3.4-5.0) Test 10/19/18 11:04 Glucose (Fingerstick) 169 mg/dL (70-99) Micro Micro Microbiology 10/15/18 Urine Culture - Final, Complete 10/15/18 Urine Culture Result 1 (DARIN) - Final, Complete Review of Systems Constitutional: yes: alert, oriented Ears/Nose/Throat: Yes: no symptom reported Eyes: Yes: no symptom reported Pulmonary: Yes no symptom reported Cardiovascular: Yes no symptom reported Gastrointestional: Yes: no symptom reported Genitourinary: Yes: no symptom reported Musculoskeletal: Yes: no symptom reported Skin: Yes no symptom reported Psychiatric/Neurological: Yes: no symptom reported Endocrine: Yes: no symptom reported Physical Exam General Appearance: no apparent distress Skin: warm Respiratory: decreased breath sounds Heart: S1S2 Abdomen: soft, bowel sounds present Genitourinary: bladder flat Extremities: pulses present Neurology: alert Musculoskeletal: Osteoarthritis Assessment Assessment IMP ESRD ANEMIA RIGHT FOOT WOUND DM II HTN PLAN ANTIBIOTICS WOUND CARE HD TOMORROW OPAL RUBI MD Oct 19, 2018 13:10
--- NOTE | 2018-10-19 13:24 | PDOC ---
PROGRESS NOTES Chief Complaint Chief Complaint Cirrhosis Foot ulcer ESRD on HD DM2 History of Present Illness History of Present Illness Ms. Douglass is a 73 year old female with severe right shoulder pain and abdominal pain. Her pain to her abdomen fluctuates, no quigley in stool, Also 10/10 right shoulder pain, she can barely move the arm due to pain. she was last dialyzed on Friday, and abd pain had fluctuated in the past few days prior to admit. 10/17: Seen by vascular for right foot, ID for h/o infection, nephro for ESRD, general surgery for panniculitis surgery not recommensed due to high risk with cirrhosis . Seen by ortho for shoulder pain. 10/18: Right foot very painful today. No BM. Abdomen swelling. Tolerated diet ok. Seen on dialysis. MRI shoulder resulted - Rotator cuff tendinosis. There does appear to be a small full-thickness rotator cuff tear of the supraspinatus tendon, and a probable mild subscapularis tendon tear. Mild subdeltoid bursal fluid or bursitis. 10/19 WOUND PROBES TO THE BONE may need amputation , risk of significant complications given cirrhosis Nondisplaced chip fracture at the medial base of the left second toe proximal phalanx. She is feeling shoulder pain, foot pain, breast pain all on the right from her fall. should undergo BKA of RLE. Labs reviewed. D/W nursing staff Plan: Consult vascular surgery - EBONY of right leg. Patient would like second opinion on BKA recommendation, ortho will see GI to see for cirrhosis Nephro to see for ESRD ID for history of MDRO infection - pseudomonas last month will ct right foot 10/19 Vitals Vitals Vital Signs Date Time Temp Pulse Resp B/P (MAP) Pulse Ox O2 Delivery O2 Flow Rate FiO2 10/19/18 10:45 97.8 68 18 138/50 (79) 95 Room Air 97.8 Physical Exam Physical Exam GENERAL: Sitting on the side of the bed, alert, eating breakfast. In chair on my arrival but looks better HEENT: Oral cavity, pharynx is dry. NECK: Supple. LUNGS: Decreased at bases. HEART: S1 and S2. ABDOMEN: Obese, soft EXTREMITIES: Without clubbing, cyanosis. Chronic changes lower extremities, trace edema, RUE-AVF unremarkable. Right foot bandaged. SKIN: No rash NEUROLOGIC: Alert, responds appropriately PIV ok General: Alert, Oriented X3, Cooperative, mild distress Heart: Regular rate, Normal S1, Normal S2 Lungs: Clear Abdomen: Soft, Other (induration and edema bilateral pannus, mild erythema) Extremities: No cyanosis, Other (the right shoulder is tender to palpation around the greater tuberosity and rotator cuff. The gross alignment is normal and there is no effusion or erythema. Passive range of motion is very limited, and was painful at the extremes, only about 40 forward flexion and 40 of abduction before it got quite painful and she said "I'm going to hit you if you continue". She has a pulsatile dialysis shunt in the right upper arm near the distal biceps, anterior humerus antecubital fossa region. The biceps tendon seems to be intact to resisted motion, and there does not seem to be pain or deformity at the elbow. Her distal sensation and motor function are preserved.) Skin: Other (right foot dressing with some sanguinous drainage) Labs LABS FOOT BILAT 3V Clinical Indication: ? BROKEN RIGHT GREAT TOE AND LEFT MIDDLE TOE. BOTH PATIENTS FEET ARE SWOLLEN AND THERE IS A SORE ON THE SOLE OF THE RT FOOT MID FOOT. Comparison: None. Findings: Severe arterial calcification is noted bilaterally. Right: There is advanced tarsometatarsal arthropathy. Cannot exclude that the cuneiforms are partially fused. No acute fracture is identified. There is soft tissue swelling of the toes. Mild dorsal soft tissue swelling of both feet. Left: There is inferior calcaneus bony spur. Tarsal metatarsal joint space narrowing is present but significantly less than the right foot. Best seen on the AP view there is tiny lucency at the medial base of the proximal phalanx of the second toe and nondisplaced fracture cannot be excluded. IMPRESSION: 1. Nondisplaced chip fracture at the medial base of the left second toe proximal phalanx. 2. No acute fracture of the right foot. Electronically signed by: Blas Dickerson MD (09/06/2018 5:15 PM) [facility] Laboratory Tests Test 10/18/18 16:59 10/18/18 21:02 10/19/18 03:55 10/19/18 07:36 Glucose (Fingerstick) 153 mg/dL (70-99) 157 mg/dL (70-99) 225 mg/dL (70-99) White Blood Count 7.5 x10^3/uL (4.0-11.0) Red Blood Count 3.36 x10^6/uL (3.50-5.40) Hemoglobin 10.4 g/dL (12.0-15.5) Hematocrit 30.7 % (36.0-47.0) Mean Corpuscular Volume 91 fL (79-100) Mean Corpuscular Hemoglobin 31 pg (25-35) Mean Corpuscular Hemoglobin Concent 34 g/dL (31-37) Red Cell Distribution Width 16.6 % (11.5-14.5) Platelet Count 91 x10^3/uL (140-400) Neutrophils (%) (Auto) 84 % (31-73) Lymphocytes (%) (Auto) 7 % (24-48) Monocytes (%) (Auto) 8 % (0-9) Eosinophils (%) (Auto) 2 % (0-3) Basophils (%) (Auto) 0 % (0-3) Neutrophils # (Auto) 6.3 x10^3uL (1.8-7.7) Lymphocytes # (Auto) 0.5 x10^3/uL (1.0-4.8) Monocytes # (Auto) 0.6 x10^3/uL (0.0-1.1) Eosinophils # (Auto) 0.1 x10^3/uL (0.0-0.7) Basophils # (Auto) 0.0 x10^3/uL (0.0-0.2) Sodium Level 136 mmol/L (136-145) Potassium Level 4.0 mmol/L (3.5-5.1) Chloride Level 97 mmol/L (98-107) Carbon Dioxide Level 27 mmol/L (21-32) Anion Gap 12 (6-14) Blood Urea Nitrogen 29 mg/dL (7-20) Creatinine 4.5 mg/dL (0.6-1.0) Estimated GFR (Cockcroft-Gault) 9.6 Glucose Level 230 mg/dL (70-99) Calcium Level 7.5 mg/dL (8.5-10.1) Phosphorus Level 5.2 mg/dL (2.6-4.7) Albumin 2.0 g/dL (3.4-5.0) Test 10/19/18 11:04 Glucose (Fingerstick) 169 mg/dL (70-99) Assessment and Plan Assessmemt and Plan Problems Medical Problems: (1) Cirrhosis of liver with ascites Status: Acute (2) Hyperglycemia Status: Acute (3) Open wound of right foot Status: Acute (4) UTI (urinary tract infection) Status: Acute Comment Review of Relevant I have reviewed the following items karyn (where applicable) has been applied. Labs Laboratory Tests Test 10/17/18 13:29 10/17/18 17:10 10/17/18 20:19 10/18/18 07:29 Glucose (Fingerstick) 111 mg/dL (70-99) 138 mg/dL (70-99) 169 mg/dL (70-99) 198 mg/dL (70-99) Test 10/18/18 09:35 10/18/18 10:58 10/18/18 16:59 10/18/18 21:02 White Blood Count 6.1 x10^3/uL (4.0-11.0) Red Blood Count 3.31 x10^6/uL (3.50-5.40) Hemoglobin 10.3 g/dL (12.0-15.5) Hematocrit 30.5 % (36.0-47.0) Mean Corpuscular Volume 92 fL (79-100) Mean Corpuscular Hemoglobin 31 pg (25-35) Mean Corpuscular Hemoglobin Concent 34 g/dL (31-37) Red Cell Distribution Width 16.7 % (11.5-14.5) Platelet Count 71 x10^3/uL (140-400) Neutrophils (%) (Auto) 79 % (31-73) Lymphocytes (%) (Auto) 8 % (24-48) Monocytes (%) (Auto) 9 % (0-9) Eosinophils (%) (Auto) 3 % (0-3) Basophils (%) (Auto) 1 % (0-3) Neutrophils # (Auto) 4.8 x10^3uL (1.8-7.7) Lymphocytes # (Auto) 0.5 x10^3/uL (1.0-4.8) Monocytes # (Auto) 0.6 x10^3/uL (0.0-1.1) Eosinophils # (Auto) 0.2 x10^3/uL (0.0-0.7) Basophils # (Auto) 0.0 x10^3/uL (0.0-0.2) Sodium Level 136 mmol/L (136-145) Potassium Level 3.7 mmol/L (3.5-5.1) Chloride Level 97 mmol/L (98-107) Carbon Dioxide Level 28 mmol/L (21-32) Anion Gap 11 (6-14) Blood Urea Nitrogen 23 mg/dL (7-20) Creatinine 4.0 mg/dL (0.6-1.0) Estimated GFR (Cockcroft-Gault) 11.0 Glucose Level 208 mg/dL (70-99) Calcium Level 7.4 mg/dL (8.5-10.1) Phosphorus Level 4.7 mg/dL (2.6-4.7) Albumin 1.9 g/dL (3.4-5.0) Glucose (Fingerstick) 167 mg/dL (70-99) 153 mg/dL (70-99) 157 mg/dL (70-99) Test 10/19/18 03:55 10/19/18 07:36 10/19/18 11:04 White Blood Count 7.5 x10^3/uL (4.0-11.0) Red Blood Count 3.36 x10^6/uL (3.50-5.40) Hemoglobin 10.4 g/dL (12.0-15.5) Hematocrit 30.7 % (36.0-47.0) Mean Corpuscular Volume 91 fL (79-100) Mean Corpuscular Hemoglobin 31 pg (25-35) Mean Corpuscular Hemoglobin Concent 34 g/dL (31-37) Red Cell Distribution Width 16.6 % (11.5-14.5) Platelet Count 91 x10^3/uL (140-400) Neutrophils (%) (Auto) 84 % (31-73) Lymphocytes (%) (Auto) 7 % (24-48) Monocytes (%) (Auto) 8 % (0-9) Eosinophils (%) (Auto) 2 % (0-3) Basophils (%) (Auto) 0 % (0-3) Neutrophils # (Auto) 6.3 x10^3uL (1.8-7.7) Lymphocytes # (Auto) 0.5 x10^3/uL (1.0-4.8) Monocytes # (Auto) 0.6 x10^3/uL (0.0-1.1) Eosinophils # (Auto) 0.1 x10^3/uL (0.0-0.7) Basophils # (Auto) 0.0 x10^3/uL (0.0-0.2) Sodium Level 136 mmol/L (136-145) Potassium Level 4.0 mmol/L (3.5-5.1) Chloride Level 97 mmol/L (98-107) Carbon Dioxide Level 27 mmol/L (21-32) Anion Gap 12 (6-14) Blood Urea Nitrogen 29 mg/dL (7-20) Creatinine 4.5 mg/dL (0.6-1.0) Estimated GFR (Cockcroft-Gault) 9.6 Glucose Level 230 mg/dL (70-99) Calcium Level 7.5 mg/dL (8.5-10.1) Phosphorus Level 5.2 mg/dL (2.6-4.7) Albumin 2.0 g/dL (3.4-5.0) Glucose (Fingerstick) 225 mg/dL (70-99) 169 mg/dL (70-99) Laboratory Tests Test 10/18/18 16:59 10/18/18 21:02 10/19/18 03:55 10/19/18 07:36 Glucose (Fingerstick) 153 mg/dL (70-99) 157 mg/dL (70-99) 225 mg/dL (70-99) White Blood Count 7.5 x10^3/uL (4.0-11.0) Red Blood Count 3.36 x10^6/uL (3.50-5.40) Hemoglobin 10.4 g/dL (12.0-15.5) Hematocrit 30.7 % (36.0-47.0) Mean Corpuscular Volume 91 fL (79-100) Mean Corpuscular Hemoglobin 31 pg (25-35) Mean Corpuscular Hemoglobin Concent 34 g/dL (31-37) Red Cell Distribution Width 16.6 % (11.5-14.5) Platelet Count 91 x10^3/uL (140-400) Neutrophils (%) (Auto) 84 % (31-73) Lymphocytes (%) (Auto) 7 % (24-48) Monocytes (%) (Auto) 8 % (0-9) Eosinophils (%) (Auto) 2 % (0-3) Basophils (%) (Auto) 0 % (0-3) Neutrophils # (Auto) 6.3 x10^3uL (1.8-7.7) Lymphocytes # (Auto) 0.5 x10^3/uL (1.0-4.8) Monocytes # (Auto) 0.6 x10^3/uL (0.0-1.1) Eosinophils # (Auto) 0.1 x10^3/uL (0.0-0.7) Basophils # (Auto) 0.0 x10^3/uL (0.0-0.2) Sodium Level 136 mmol/L (136-145) Potassium Level 4.0 mmol/L (3.5-5.1) Chloride Level 97 mmol/L (98-107) Carbon Dioxide Level 27 mmol/L (21-32) Anion Gap 12 (6-14) Blood Urea Nitrogen 29 mg/dL (7-20) Creatinine 4.5 mg/dL (0.6-1.0) Estimated GFR (Cockcroft-Gault) 9.6 Glucose Level 230 mg/dL (70-99) Calcium Level 7.5 mg/dL (8.5-10.1) Phosphorus Level 5.2 mg/dL (2.6-4.7) Albumin 2.0 g/dL (3.4-5.0) Test 10/19/18 11:04 Glucose (Fingerstick) 169 mg/dL (70-99) Microbiology 10/15/18 Urine Culture - Final, Complete 10/15/18 Urine Culture Result 1 (DARIN) - Final, Complete Medications Current Medications Morphine Sulfate (Morphine Sulfate) 4 mg PRN Q15MIN PRN IV/SQ PAIN GREATER THAN 3/10 Last administered on 10/15/18at 18:50; Start 10/15/18 at 14:15; Stop at 14:14; Status DC Insulin Human Regular (HumuLIN R VIAL) 10 unit 1X ONCE IV ; Start 10/15/18 at 16:45; Stop 10/15/18 at 16:46; Status Cancel Insulin Human Regular (HumuLIN R VIAL) 5 unit 1X ONCE IV Last administered on 10/15/18at 17:04; Start 10/15/18 at 17:15; Stop 10/15/18 at 17:16; Status DC Ondansetron HCl (Zofran) 4 mg PRN Q8HRS PRN IV NAUSEA/VOMITING; Start 10/15/18 at 19:15; Stop 10/16/18 at 19:14; Status DC Morphine Sulfate (Morphine Sulfate) 4 mg PRN Q2HR PRN IV PAIN; Start 10/15/18 at 19:15; Stop 10/16/18 at 19:14; Status DC Insulin Human Lispro (HumaLOG) 0-7 UNITS TIDWMEALS SQ Last administered on 10/19at 12:40; Start 10/16/18 at 08:00 Dextrose (Dextrose 50%-Water Syringe) 12.5 gm PRN Q15MIN PRN IV SEE COMMENTS; Start 10/15/18 at 19:15 Ceftriaxone Sodium (Rocephin) 1 gm Q24H IVP Last administered on 10/15/18at 22: 27; Start 10/15/18 at 20:00; Stop 10/16/18 at 10:39; Status DC Zolpidem Tartrate (Ambien) 5 mg PRN QHS PRN PO INSOMNIA Last administered on at 22:27; Start 10/15/18 at 22:15; Stop 10/16/18 at 22:30; Status DC Aspirin (Ecotrin) 325 mg DAILYWBKFT PO Last administered on 10/16/18at 13:43; Start 10/16/18 at 10:00 Clonidine HCl (Catapres) 0.2 mg DAILY PO Last administered on 10/19/18at 08:56; Start 10/16/18 at 09:00 Diclofenac Sodium (Voltaren) 1 ronel BID TP Last administered on 10/19/18at 09:05 ; Start 10/16/18 at 09:00 Famotidine (Pepcid) 20 mg QODAY PO ; Start 10/16/18 at 09:00; Stop 10/16/18 at 09:35; Status DC Gabapentin (Neurontin) 100 mg DAILY PO Last administered on 10/19/18at 08:43; Start 10/16/18 at 09:00 Acetaminophen/ Hydrocodone Bitart (Lortab 5/325) 2 tab PRN Q6HRS PRN PO PAIN Last administered on 10/17/18 21:31; Start 10/16/18 at 08:30 Insulin Glargine (Lantus) 15 units DAILY SQ Last administered on 10/19/18 09: 42; Start 10/16/18 at 09:00 Insulin Human Lispro (HumaLOG) 5 units TIDWMEALS SQ Last administered on 12:41; Start 10/16/18 at 12:00 Lactobacillus Rhamnosus (Culturelle) 1 cap BID PO Last administered on 08:59; Start 10/16/18 at 09:00 Lactulose (Lactulose) 10 gm PRN TID PRN PO CONSTIPATION; Start 10/16/18 at 08: 30; Stop 10/16/18 at 09:35; Status DC Levothyroxine Sodium (Synthroid) 125 mcg DAILY06 PO Last administered on 06:03; Start 10/16/18 at 09:00 Metoprolol Succinate (Toprol Xl) 25 mg DAILY PO Last administered on 10/19/18 08:55; Start 10/16/18 at 09:00 Rifaximin (Xifaxan) 550 mg BID PO Last administered on 10/16/18 13:40; Start 10/16/18 at 09:00; Stop 10/16/18 at 16:03; Status DC Sertraline HCl (Zoloft) 75 mg DAILY PO Last administered on 10/19/18 08:57; Start 10/16/18 at 09:00 Sevelamer Carbonate (Renvela) 800 mg TIDWMEALS PO Last administered on 12:35; Start 10/16/18 at 12:00 Isosorbide Mononitrate (Imdur) 30 mg DAILY PO Last administered on 10/19/18 08 :54; Start 10/16/18 at 09:00 Lactulose (Lactulose) 10 gm TID PO Last administered on 10/16/18 20:52; Start 10/16/18 at 14:00 Rifaximin (Xifaxan) 550 mg Q12HR PO Last administered on 10/19/18 08:56; Start 10/16/18 at 10:00 Pantoprazole Sodium (Protonix) 40 mg DAILYAC PO Last administered on 10/19/18at 08:54; Start 10/16/18 at 10:00 Piperacillin Sod/ Tazobactam Sod 2.25 gm/Sodium Chloride 50 ml @ 100 mls/hr Q8HRS IV Last administered on 10/19/18at 06:04; Start 10/16/18 at 11:00 Vancomycin HCl (Vanco Per Pharmacy) 1 each PRN DAILY PRN MC SEE COMMENTS Last administered on 10/17/18at 15:19; Start 10/16/18 at 10:45 Vancomycin HCl 1.75 gm/Sodium Chloride 500 ml @ 250 mls/hr 1X ONCE IV Last administered on 10/16/18at 15:24; Start 10/16/18 at 11:00; Stop 10/16/18 at 12:59 ; Status DC Vancomycin HCl (Vancomycin Random Level) 1 each 1X ONCE MC Last administered on 10/17/18at 05:05; Start 10/17/18 at 06:00; Stop 10/17/18 at 06:01; Status DC Iohexol (Omnipaque 350 Mg/ml) 100 ml 1X ONCE IV ; Start 10/16/18 at 17:15; Stop 10/16/18 at 17:16; Status DC Info (CONTRAST GIVEN -- Rx MONITORING) 1 each PRN DAILY PRN MC SEE COMMENTS; Start 10/16/18 at 17:30; Stop 10/18/18 at 17:29; Status DC Nystatin (Nystop) 1 ronel BID TP Last administered on 10/19/18at 09:05; Start at 21:30 Temazepam (Restoril) 7.5 mg PRN QHS PRN PO INSOMNIA; Start 10/16/18 at 22:30 Sodium Chloride 1,000 ml @ 1,000 mls/hr Q1H PRN IV hypotension; Start 10/17/18 at 09:28; Stop 10/17/18 at 15:27; Status DC Albumin Human 200 ml @ 200 mls/hr 1X PRN PRN IV Hypotension; Start 10/17/18 at 09:30; Stop 10/17/18 at 15:29; Status DC Sodium Chloride 1,000 ml @ 400 mls/hr Q2H30M PRN IV PATENCY; Start 10/17/18 at 09:28; Stop 10/17/18 at 21:27; Status DC Info (PHARMACY MONITORING -- do not chart) 1 each PRN DAILY PRN MC SEE COMMENTS ; Start 10/17/18 at 09:30; Stop 10/17/18 at 09:34; Status DC Info (PHARMACY MONITORING -- do not chart) 1 each PRN DAILY PRN MC SEE COMMENTS ; Start 10/17/18 at 09:30 Vancomycin HCl 500 mg/Sodium Chloride 100 ml @ 100 mls/hr QTUTHSA IV Last administered on 10/17/18at 17:25; Start 10/17/18 at 16:00 Sodium Chloride 250 ml @ 0 mls/hr 1X PRN PRN IV SBP <= 80; Start 10/18/18 at 12 :30 Methylprednisolone Acetate (DEPO-Medrol 40MG VIAL) 40 mg 1X ONCE IM Last administered on 10/18/18at 14:40; Start 10/18/18 at 13:45; Stop 10/18/18 at 13:46 ; Status DC Bupivacaine HCl (Sensorcaine-Mpf 0.25%) 10 ml 1X ONCE IJ Last administered on 10/18/18at 14:40; Start 10/18/18 at 13:45; Stop 10/18/18 at 13:46; Status DC Lorazepam (Ativan) 0.5 mg PRN Q8HRS PRN PO ANXIETY / AGITATION; Start 10/19/18 at 13:15 Active Scripts Active Zofran (Ondansetron Hcl) 4 Mg Tablet 1 Tab PO Q6HRS Cephalexin 500 Mg Tablet 1 Tab PO BID Humalog (Insulin Lispro) 100 Unit/1 Ml Insuln.pen 5 Units SQ TIDWMEALS 28 Days Culturelle (Lactobacillus Rhamnosus Gg) 1 Each Cap.sprink 1 Cap PO BID 28 Days Lantus Solostar (Insulin Glargine,Hum.rec.anlog) 100 Unit/1 Ml Insuln.pen 15 Units SQ DAILY 28 Days Cipro (Ciprofloxacin Hcl) 250 Mg Tablet 250 Mg PO DAILY 10 Days Lactulose 20 Gm/30 Ml Solution 10 Gm PO PRN TID PRN 10 Days Aspirin Ec (Aspirin) 325 Mg Tablet.dr 325 Mg PO DAILYWBKFT 30 Days Reported Calcium Acetate 667 Mg Tablet 667 Mg PO BID Calcium Acetate 667 Mg Tablet 1,334 Mg PO TIDWMEALS Vitamin D (Cholecalciferol (Vitamin D3)) 50,000 Unit Capsule 50,000 Unit PO DAILY Tizanidine Hcl 2 Mg Capsule 2 Mg PO BID PRN Meclizine Hcl 25 Mg Tablet 1 Tab PO TID Voltaren (Diclofenac Sodium) 100 Gm Gel..gram. 1 Gm TP BID Hydrocodone-Apap 5-325 (Hydrocodone Bit/Acetaminophen) 1 Each Tablet 2 Tab PO PRN Q6HRS PRN Clonidine Hcl 0.2 Mg Tablet 0.2 Mg PO DAILY Gabapentin (Gabapentin) 100 Mg Capsule 100 Mg PO DAILY Zoloft (Sertraline Hcl) 50 Mg Tablet 75 Mg PO DAILY Renvela (Sevelamer Carbonate) 800 Mg Tablet 1 Tab PO TIDWMEALS Levothyroxine Sodium 175 Mcg Tablet 125 Mcg PO DAILYAC Dialyvite [place] D Tablet (Multivitamin, Min Cmb#25/Fa/D3) 1 Each Tablet 1 Each PO DAILY Metoprolol Succinate ( Xl ) (Metoprolol Succinate) 25 Mg Tab.er.24h 25 Mg PO DAILY Ondansetron Hcl 4 Mg Tablet 4 Mg PO Q6HRS PRN Zolpidem Tartrate 5 Mg Tablet 5 Mg PO PRN QHS PRN Famotidine 20 Mg Tablet 20 Mg PO DAILY Xifaxan (Rifaximin) 550 Mg Tablet 1 Tab PO BID Isosorbide Dinitrate 30 Mg Tablet 1 Tab PO DAILY Vitals/I & O Vital Sign - Last 24 Hours 10/18/18 10/18/18 10/18/18 10/18/18 15:00 19:00 19:58 23:00 Temp 98.1 97.6 97.9 98.1 97.6 97.9 Pulse 58 57 57 Resp 18 20 20 B/P (MAP) 92/46 (61) 128/46 (73) 113/48 (69) Pulse Ox 95 99 97 O2 Delivery Room Air Room Air Room Air Room Air 10/19/18 10/19/18 10/19/18 10/19/18 03:00 07:00 08:54 08:55 Temp 97.8 97.8 97.8 97.8 Pulse 51 59 68 68 Resp 20 18 B/P (MAP) 116/51 (72) 127/40 (69) 139/49 136/49 Pulse Ox 95 94 O2 Delivery Room Air Room Air 10/19/18 10/19/18 08:56 10:45 Temp 97.8 97.8 Pulse 68 68 Resp 18 B/P (MAP) 136/49 138/50 (79) Pulse Ox 95 O2 Delivery Room Air Intake and Output 10/18/18 10/18/18 10/19/18 15:00 23:00 07:00 Intake Total 0 ml 410 ml 340 ml Balance 0 ml 410 ml 340 ml FEROZ KELLY MD Oct 19, 2018 13:24
[2018-10-19] MEDS ORDERED: ALPRAZolam 0.25 MG TABLET PO PRN (13:30)
[2018-10-19] MEDS: VANCOMYCIN PER PHARMACY MC PRN (14:17)
[2018-10-19] MEDS: LORazepam 0.5 MG TABLET PO PRN (14:47)
[2018-10-19 15:05] VITALS: BP 142/54
--- NOTE | 2018-10-19 15:35 | NUR ---
SW following up with pt dc plan. SW met with pt and spoke with pt's Kevin via telephone, phone: [phone] to discuss PT/OT recommendations, senior living unit choices, and Medicare coverage. Pt and pts family have been notified of Medicare coverage (stay is covered in full the first 20 days and starting on day 21, they will be responsible for 20% of the cost) regarding senior living units. Pt declined viewing a [employer] with a list of senior living units and their star-ratings. chose [facility]. SW phoned and faxed referral, phone: [phone], fax: [phone]. SW will await acceptance decision and proceed accordingly.
--- NOTE | 2018-10-19 16:03 | NUR ---
Wound care wound care follow up for wound assessment. Cleansed DFU to R plantar foot, packed with Aquacel ag and covered with ABD and Kerlix. Recommend to change every 2 days. Pt pannus is cellulitic, indurated and painful with no open wounds or drainage, No wound care interventions needed at this time. Pt currently refusing BKA, will have Dr Hunter follow up for other options available. WC will continue to follow for possible changes. Pt left in recliner for lunch with heels elevated and floated.
--- NOTE | 2018-10-19 16:45 | RAD ---
CT study of the right foot without contrast Clinical indications: Deep complex right foot wound. TECHNIQUE: Noncontrast helical CT scanning of the right foot was performed. PQRS compliance Statement One or more of the following individualized dose reduction techniques were utilized for this study: 1. Automated exposure control 2. Adjustment of the mA and/or kV according to patient size 3. Use of iterative reconstruction technique COMPARISON: Radiographic study of the right foot dated September 06, 2018. FINDINGS: Diffuse circumferential subcutaneous soft tissue edema is seen consistent with cellulitis. No discrete soft tissue abscess is seen on this noncontrast study. There is a focal area of more prominent inflammation/edema involving the plantar aspect of the right foot at the level of the tarsal bones and tarsal metatarsal joints. There is a deep ulceration here which extends 14 mm mm deep. It is 8 mm wide. It extends down to the muscular fascia and plantar aponeurosis. The plantar fascia appears disrupted in this area. This does not extend down to the bone. No underlying lytic process or cortical erosion is seen. No fracture is evident. 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 There is a prominent plantar spur of the calcaneus. IMPRESSION: Prominent plantar ulceration of the right midfoot without underlying osteomyelitis. Electronically signed by: Orlando Ace MD (10/19/2018 4:41 PM) [facility]
[2018-10-19 19:00] VITALS: BP 141/43
[2018-10-19 22:37] VITALS: BP 141/51
[2018-10-20 03:00] VITALS: BP 118/56
[2018-10-20 05:11] LABS: BASO % 1 % (0-3); EOS # 0.2 x10^3/uL (0.0-0.7); EOS % 4 % (0-3); HEMATOCRIT 25.7 % (36.0-47.0); HEMOGLOBIN 8.7 g/dL (12.0-15.5); LYMPH # 0.7 x10^3/uL (1.0-4.8); LYMPH % 15 % (24-48); MEAN CORPUSCULAR HEMOGLOBIN 31 pg (25-35); MEAN CORPUSCULAR HGB CONC 34 g/dL (31-37); MEAN CORPUSCULAR VOLUME 90 fL (79-100); MONO # 0.5 x10^3/uL (0.0-1.1); MONO % 11 % (0-9); NEUT # 3.1 x10^3uL (1.8-7.7); NEUT % 69 % (31-73); PLATELET COUNT 71 x10^3/uL (140-400); RED BLOOD COUNT 2.84 x10^6/uL (3.50-5.40); RED CELL DISTRIBUTION WIDTH 16.5 % (11.5-14.5); WHITE BLOOD COUNT 4.5 x10^3/uL (4.0-11.0)
[2018-10-20 06:23] LABS: ALBUMIN 1.5 g/dL (3.4-5.0); CALCIUM 7.4 mg/dL (8.5-10.1); CREATININE 5.2 mg/dL (0.6-1.0); GFR 8.1; POTASSIUM 3.6 mmol/L (3.5-5.1)
[2018-10-20 07:00] VITALS: BP 109/53
[2018-10-20] MEDS: INSULIN LISPRO 300 UNITS/3 ML INSULN.PEN. SQ SCH ×6 (08:00→17:00)
[2018-10-20] MEDS: SEVELAMER CARBONATE 800 MG TABLET. PO SCH ×3 (08:00→17:19)
[2018-10-20] MEDS: ASPIRIN ENTERIC COATED 325 MG TABLET.DR. PO SCH (08:00)
[2018-10-20] MEDS: PIPERACILLIN/TAZOBACTAM 2.25 GM in IV NORMAL SALINE 50ML 50 ML IV SCH ×3 (08:25→22:56)
[2018-10-20] MEDS: PANTOPRAZOLE 40 MG TABLET.DR. PO SCH (08:25)
[2018-10-20] MEDS: LEVOTHYROXINE 125 MCG TABLET PO SCH (08:25)
[2018-10-20] MEDS ORDERED: IV NORMAL SALINE 1000ML BAG 1,000 ML IV PRN ×2 (08:29)
[2018-10-20] MEDS ORDERED: DIALYSIS PATIENT. MC PRN ×2 (08:30)
[2018-10-20] MEDS ORDERED: LIDOCAINE 1% Multi-Dose 20 ML VIAL. INJ ONE (08:45)
--- NOTE | 2018-10-20 08:49 | PDOC ---
PROGRESS NOTES Chief Complaint Chief Complaint Cirrhosis Foot ulcer ESRD on HD DM2 History of Present Illness History of Present Illness Ms. Douglass is a 73 year old female with severe right shoulder pain and abdominal pain. Her pain to her abdomen fluctuates, no quigley in stool, Also 10/10 right shoulder pain, she can barely move the arm due to pain. she was last dialyzed on Friday, and abd pain had fluctuated in the past few days prior to admit. 10/17: Seen by vascular for right foot, ID for h/o infection, nephro for ESRD, general surgery for panniculitis surgery not recommensed due to high risk with cirrhosis . Seen by ortho for shoulder pain. 10/18: Right foot very painful today. No BM. Abdomen swelling. Tolerated diet ok. Seen on dialysis. MRI shoulder resulted - Rotator cuff tendinosis. There does appear to be a small full-thickness rotator cuff tear of the supraspinatus tendon, and a probable mild subscapularis tendon tear. Mild subdeltoid bursal fluid or bursitis. 10/19 WOUND PROBES TO THE BONE may need amputation , risk of significant complications given cirrhosis Nondisplaced chip fracture at the medial base of the left second toe 10/20 pt is thinking about amputation, grand daughter encouraged 10/20 She foot pain RIGHT, NOT IMPROVED, breast pain all on the right from her fall. should undergo BKA of RLE. Labs reviewed. D/W nursing staff Plan: ortho FOLLOWING GI to see for cirrhosis Nephro to see for ESRD ID for history of MDRO infection - pseudomonas ct right foot 10/19 PERSONALLY REVIEWED IMAGES Vitals Vitals Vital Signs Date Time Temp Pulse Resp B/P (MAP) Pulse Ox O2 Delivery O2 Flow Rate FiO2 10/20/18 07:00 98.4 78 17 109/53 (71) 94 Room Air 98.4 Physical Exam Physical Exam GENERAL: Sitting on the side of the bed, alert, eating breakfast. In chair on my arrival but looks better HEENT: Oral cavity, pharynx is dry. NECK: Supple. LUNGS: Decreased at bases. HEART: S1 and S2. ABDOMEN: Obese, soft EXTREMITIES: Without clubbing, cyanosis. Chronic changes lower extremities, trace edema, RUE-AVF unremarkable. Right foot bandaged. SKIN: No rash NEUROLOGIC: Alert, responds appropriately PIV ok General: Alert, Oriented X3, Cooperative, mild distress Heart: Regular rate, Normal S1, Normal S2 Lungs: Clear Abdomen: Soft, Other (induration and edema bilateral pannus, mild erythema) Extremities: No cyanosis, Other (the right shoulder is tender to palpation around the greater tuberosity and rotator cuff. The gross alignment is normal and there is no effusion or erythema. Passive range of motion is very limited, and was painful at the extremes, only about 40 forward flexion and 40 of abduction before it got quite painful and she said "I'm going to hit you if you continue". She has a pulsatile dialysis shunt in the right upper arm near the distal biceps, anterior humerus antecubital fossa region. The biceps tendon seems to be intact to resisted motion, and there does not seem to be pain or deformity at the elbow. Her distal sensation and motor function are preserved.) Skin: Other (right foot dressing with some sanguinous drainage) Labs LABS CT study of the right foot without contrast Clinical indications: Deep complex right foot wound. TECHNIQUE: Noncontrast helical CT scanning of the right foot was performed. PQRS compliance Statement One or more of the following individualized dose reduction techniques were utilized for this study: 1. Automated exposure control 2. Adjustment of the mA and/or kV according to patient size 3. Use of iterative reconstruction technique COMPARISON: Radiographic study of the right foot dated September 06, 2018. FINDINGS: Diffuse circumferential subcutaneous soft tissue edema is seen consistent with cellulitis. No discrete soft tissue abscess is seen on this noncontrast study. There is a focal area of more prominent inflammation/edema involving the plantar aspect of the right foot at the level of the tarsal bones and tarsal metatarsal joints. There is a deep ulceration here which extends 14 mm mm deep. It is 8 mm wide. It extends down to the muscular fascia and plantar aponeurosis. The plantar fascia appears disrupted in this area. This does not extend down to the bone. No underlying lytic process or cortical erosion is seen. No fracture is evident. 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 There is a prominent plantar spur of the calcaneus. IMPRESSION: Prominent plantar ulceration of the right midfoot without underlying osteomyelitis. Electronically signed by: Orlando Ace MD (10/19/2018 4:41 PM) [facility] Laboratory Tests Test 10/19/18 11:04 10/19/18 16:30 10/20/18 04:35 10/20/18 07:20 Glucose (Fingerstick) 169 mg/dL (70-99) 154 mg/dL (70-99) 78 mg/dL (70-99) White Blood Count 4.5 x10^3/uL (4.0-11.0) Red Blood Count 2.84 x10^6/uL (3.50-5.40) Hemoglobin 8.7 g/dL (12.0-15.5) Hematocrit 25.7 % (36.0-47.0) Mean Corpuscular Volume 90 fL (79-100) Mean Corpuscular Hemoglobin 31 pg (25-35) Mean Corpuscular Hemoglobin Concent 34 g/dL (31-37) Red Cell Distribution Width 16.5 % (11.5-14.5) Platelet Count 71 x10^3/uL (140-400) Neutrophils (%) (Auto) 69 % (31-73) Lymphocytes (%) (Auto) 15 % (24-48) Monocytes (%) (Auto) 11 % (0-9) Eosinophils (%) (Auto) 4 % (0-3) Basophils (%) (Auto) 1 % (0-3) Neutrophils # (Auto) 3.1 x10^3uL (1.8-7.7) Lymphocytes # (Auto) 0.7 x10^3/uL (1.0-4.8) Monocytes # (Auto) 0.5 x10^3/uL (0.0-1.1) Eosinophils # (Auto) 0.2 x10^3/uL (0.0-0.7) Basophils # (Auto) 0.0 x10^3/uL (0.0-0.2) Sodium Level 137 mmol/L (136-145) Potassium Level 3.6 mmol/L (3.5-5.1) Chloride Level 100 mmol/L (98-107) Carbon Dioxide Level 25 mmol/L (21-32) Anion Gap 12 (6-14) Blood Urea Nitrogen 36 mg/dL (7-20) Creatinine 5.2 mg/dL (0.6-1.0) Estimated GFR (Cockcroft-Gault) 8.1 Glucose Level 96 mg/dL (70-99) Calcium Level 7.4 mg/dL (8.5-10.1) Phosphorus Level 6.0 mg/dL (2.6-4.7) Albumin 1.5 g/dL (3.4-5.0) Assessment and Plan Assessmemt and Plan Problems Medical Problems: (1) Cirrhosis of liver with ascites Status: Acute (2) Hyperglycemia Status: Acute (3) Open wound of right foot Status: Acute (4) UTI (urinary tract infection) Status: Acute Comment Review of Relevant I have reviewed the following items karyn (where applicable) has been applied. Labs Laboratory Tests Test 10/18/18 09:35 10/18/18 10:58 10/18/18 16:59 10/18/18 21:02 White Blood Count 6.1 x10^3/uL (4.0-11.0) Red Blood Count 3.31 x10^6/uL (3.50-5.40) Hemoglobin 10.3 g/dL (12.0-15.5) Hematocrit 30.5 % (36.0-47.0) Mean Corpuscular Volume 92 fL (79-100) Mean Corpuscular Hemoglobin 31 pg (25-35) Mean Corpuscular Hemoglobin Concent 34 g/dL (31-37) Red Cell Distribution Width 16.7 % (11.5-14.5) Platelet Count 71 x10^3/uL (140-400) Neutrophils (%) (Auto) 79 % (31-73) Lymphocytes (%) (Auto) 8 % (24-48) Monocytes (%) (Auto) 9 % (0-9) Eosinophils (%) (Auto) 3 % (0-3) Basophils (%) (Auto) 1 % (0-3) Neutrophils # (Auto) 4.8 x10^3uL (1.8-7.7) Lymphocytes # (Auto) 0.5 x10^3/uL (1.0-4.8) Monocytes # (Auto) 0.6 x10^3/uL (0.0-1.1) Eosinophils # (Auto) 0.2 x10^3/uL (0.0-0.7) Basophils # (Auto) 0.0 x10^3/uL (0.0-0.2) Sodium Level 136 mmol/L (136-145) Potassium Level 3.7 mmol/L (3.5-5.1) Chloride Level 97 mmol/L (98-107) Carbon Dioxide Level 28 mmol/L (21-32) Anion Gap 11 (6-14) Blood Urea Nitrogen 23 mg/dL (7-20) Creatinine 4.0 mg/dL (0.6-1.0) Estimated GFR (Cockcroft-Gault) 11.0 Glucose Level 208 mg/dL (70-99) Calcium Level 7.4 mg/dL (8.5-10.1) Phosphorus Level 4.7 mg/dL (2.6-4.7) Albumin 1.9 g/dL (3.4-5.0) Glucose (Fingerstick) 167 mg/dL (70-99) 153 mg/dL (70-99) 157 mg/dL (70-99) Test 10/19/18 03:55 10/19/18 07:36 10/19/18 11:04 10/19/18 16:30 White Blood Count 7.5 x10^3/uL (4.0-11.0) Red Blood Count 3.36 x10^6/uL (3.50-5.40) Hemoglobin 10.4 g/dL (12.0-15.5) Hematocrit 30.7 % (36.0-47.0) Mean Corpuscular Volume 91 fL (79-100) Mean Corpuscular Hemoglobin 31 pg (25-35) Mean Corpuscular Hemoglobin Concent 34 g/dL (31-37) Red Cell Distribution Width 16.6 % (11.5-14.5) Platelet Count 91 x10^3/uL (140-400) Neutrophils (%) (Auto) 84 % (31-73) Lymphocytes (%) (Auto) 7 % (24-48) Monocytes (%) (Auto) 8 % (0-9) Eosinophils (%) (Auto) 2 % (0-3) Basophils (%) (Auto) 0 % (0-3) Neutrophils # (Auto) 6.3 x10^3uL (1.8-7.7) Lymphocytes # (Auto) 0.5 x10^3/uL (1.0-4.8) Monocytes # (Auto) 0.6 x10^3/uL (0.0-1.1) Eosinophils # (Auto) 0.1 x10^3/uL (0.0-0.7) Basophils # (Auto) 0.0 x10^3/uL (0.0-0.2) Sodium Level 136 mmol/L (136-145) Potassium Level 4.0 mmol/L (3.5-5.1) Chloride Level 97 mmol/L (98-107) Carbon Dioxide Level 27 mmol/L (21-32) Anion Gap 12 (6-14) Blood Urea Nitrogen 29 mg/dL (7-20) Creatinine 4.5 mg/dL (0.6-1.0) Estimated GFR (Cockcroft-Gault) 9.6 Glucose Level 230 mg/dL (70-99) Calcium Level 7.5 mg/dL (8.5-10.1) Phosphorus Level 5.2 mg/dL (2.6-4.7) Albumin 2.0 g/dL (3.4-5.0) Glucose (Fingerstick) 225 mg/dL (70-99) 169 mg/dL (70-99) 154 mg/dL (70-99) Test 10/20/18 04:35 10/20/18 07:20 White Blood Count 4.5 x10^3/uL (4.0-11.0) Red Blood Count 2.84 x10^6/uL (3.50-5.40) Hemoglobin 8.7 g/dL (12.0-15.5) Hematocrit 25.7 % (36.0-47.0) Mean Corpuscular Volume 90 fL (79-100) Mean Corpuscular Hemoglobin 31 pg (25-35) Mean Corpuscular Hemoglobin Concent 34 g/dL (31-37) Red Cell Distribution Width 16.5 % (11.5-14.5) Platelet Count 71 x10^3/uL (140-400) Neutrophils (%) (Auto) 69 % (31-73) Lymphocytes (%) (Auto) 15 % (24-48) Monocytes (%) (Auto) 11 % (0-9) Eosinophils (%) (Auto) 4 % (0-3) Basophils (%) (Auto) 1 % (0-3) Neutrophils # (Auto) 3.1 x10^3uL (1.8-7.7) Lymphocytes # (Auto) 0.7 x10^3/uL (1.0-4.8) Monocytes # (Auto) 0.5 x10^3/uL (0.0-1.1) Eosinophils # (Auto) 0.2 x10^3/uL (0.0-0.7) Basophils # (Auto) 0.0 x10^3/uL (0.0-0.2) Sodium Level 137 mmol/L (136-145) Potassium Level 3.6 mmol/L (3.5-5.1) Chloride Level 100 mmol/L (98-107) Carbon Dioxide Level 25 mmol/L (21-32) Anion Gap 12 (6-14) Blood Urea Nitrogen 36 mg/dL (7-20) Creatinine 5.2 mg/dL (0.6-1.0) Estimated GFR (Cockcroft-Gault) 8.1 Glucose Level 96 mg/dL (70-99) Calcium Level 7.4 mg/dL (8.5-10.1) Phosphorus Level 6.0 mg/dL (2.6-4.7) Albumin 1.5 g/dL (3.4-5.0) Glucose (Fingerstick) 78 mg/dL (70-99) Laboratory Tests Test 10/19/18 11:04 10/19/18 16:30 10/20/18 04:35 10/20/18 07:20 Glucose (Fingerstick) 169 mg/dL (70-99) 154 mg/dL (70-99) 78 mg/dL (70-99) White Blood Count 4.5 x10^3/uL (4.0-11.0) Red Blood Count 2.84 x10^6/uL (3.50-5.40) Hemoglobin 8.7 g/dL (12.0-15.5) Hematocrit 25.7 % (36.0-47.0) Mean Corpuscular Volume 90 fL (79-100) Mean Corpuscular Hemoglobin 31 pg (25-35) Mean Corpuscular Hemoglobin Concent 34 g/dL (31-37) Red Cell Distribution Width 16.5 % (11.5-14.5) Platelet Count 71 x10^3/uL (140-400) Neutrophils (%) (Auto) 69 % (31-73) Lymphocytes (%) (Auto) 15 % (24-48) Monocytes (%) (Auto) 11 % (0-9) Eosinophils (%) (Auto) 4 % (0-3) Basophils (%) (Auto) 1 % (0-3) Neutrophils # (Auto) 3.1 x10^3uL (1.8-7.7) Lymphocytes # (Auto) 0.7 x10^3/uL (1.0-4.8) Monocytes # (Auto) 0.5 x10^3/uL (0.0-1.1) Eosinophils # (Auto) 0.2 x10^3/uL (0.0-0.7) Basophils # (Auto) 0.0 x10^3/uL (0.0-0.2) Sodium Level 137 mmol/L (136-145) Potassium Level 3.6 mmol/L (3.5-5.1) Chloride Level 100 mmol/L (98-107) Carbon Dioxide Level 25 mmol/L (21-32) Anion Gap 12 (6-14) Blood Urea Nitrogen 36 mg/dL (7-20) Creatinine 5.2 mg/dL (0.6-1.0) Estimated GFR (Cockcroft-Gault) 8.1 Glucose Level 96 mg/dL (70-99) Calcium Level 7.4 mg/dL (8.5-10.1) Phosphorus Level 6.0 mg/dL (2.6-4.7) Albumin 1.5 g/dL (3.4-5.0) Microbiology 10/15/18 Urine Culture - Final, Complete 10/15/18 Urine Culture Result 1 (DARIN) - Final, Complete Medications Current Medications Morphine Sulfate (Morphine Sulfate) 4 mg PRN Q15MIN PRN IV/SQ PAIN GREATER THAN 3/10 Last administered on 10/15/18at 18:50; Start 10/15/18 at 14:15; Stop at 14:14; Status DC Insulin Human Regular (HumuLIN R VIAL) 10 unit 1X ONCE IV ; Start 10/15/18 at 16:45; Stop 10/15/18 at 16:46; Status Cancel Insulin Human Regular (HumuLIN R VIAL) 5 unit 1X ONCE IV Last administered on 10/15/18at 17:04; Start 10/15/18 at 17:15; Stop 10/15/18 at 17:16; Status DC Ondansetron HCl (Zofran) 4 mg PRN Q8HRS PRN IV NAUSEA/VOMITING; Start 10/15/18 at 19:15; Stop 10/16/18 at 19:14; Status DC Morphine Sulfate (Morphine Sulfate) 4 mg PRN Q2HR PRN IV PAIN; Start 10/15/18 at 19:15; Stop 10/16/18 at 19:14; Status DC Insulin Human Lispro (HumaLOG) 0-7 UNITS TIDWMEALS SQ Last administered on 10/19 18:02; Start 10/16/18 at 08:00 Dextrose (Dextrose 50%-Water Syringe) 12.5 gm PRN Q15MIN PRN IV SEE COMMENTS; Start 10/15/18 at 19:15 Ceftriaxone Sodium (Rocephin) 1 gm Q24H IVP Last administered on 10/15/18 22: 27; Start 10/15/18 at 20:00; Stop 10/16/18 at 10:39; Status DC Zolpidem Tartrate (Ambien) 5 mg PRN QHS PRN PO INSOMNIA Last administered on 22:27; Start 10/15/18 at 22:15; Stop 10/16/18 at 22:30; Status DC Aspirin (Ecotrin) 325 mg DAILYWBKFT PO Last administered on 10/16/18 13:43; Start 10/16/18 at 10:00 Clonidine HCl (Catapres) 0.2 mg DAILY PO Last administered on 10/19/18 08:56; Start 10/16/18 at 09:00 Diclofenac Sodium (Voltaren) 1 ronel BID TP Last administered on 10/19/18 22:10 ; Start 10/16/18 at 09:00 Famotidine (Pepcid) 20 mg QODAY PO ; Start 10/16/18 at 09:00; Stop 10/16/18 at 09:35; Status DC Gabapentin (Neurontin) 100 mg DAILY PO Last administered on 10/19/18 08:43; Start 10/16/18 at 09:00 Acetaminophen/ Hydrocodone Bitart (Lortab 5/325) 2 tab PRN Q6HRS PRN PO PAIN Last administered on 10/17/18at 21:31; Start 10/16/18 at 08:30 Insulin Glargine (Lantus) 15 units DAILY SQ Last administered on 10/19/18 09: 42; Start 10/16/18 at 09:00 Insulin Human Lispro (HumaLOG) 5 units TIDWMEALS SQ Last administered on 18:01; Start 10/16/18 at 12:00 Lactobacillus Rhamnosus (Culturelle) 1 cap BID PO Last administered on 21:07; Start 10/16/18 at 09:00 Lactulose (Lactulose) 10 gm PRN TID PRN PO CONSTIPATION; Start 10/16/18 at 08: 30; Stop 10/16/18 at 09:35; Status DC Levothyroxine Sodium (Synthroid) 125 mcg DAILY06 PO Last administered on 08:25; Start 10/16/18 at 09:00 Metoprolol Succinate (Toprol Xl) 25 mg DAILY PO Last administered on 10/19/18 08:55; Start 10/16/18 at 09:00 Rifaximin (Xifaxan) 550 mg BID PO Last administered on 10/16/18 13:40; Start 10/16/18 at 09:00; Stop 10/16/18 at 16:03; Status DC Sertraline HCl (Zoloft) 75 mg DAILY PO Last administered on 10/19/18 08:57; Start 10/16/18 at 09:00 Sevelamer Carbonate (Renvela) 800 mg TIDWMEALS PO Last administered on 17:58; Start 10/16/18 at 12:00 Isosorbide Mononitrate (Imdur) 30 mg DAILY PO Last administered on 10/19/18 08 :54; Start 10/16/18 at 09:00 Lactulose (Lactulose) 10 gm TID PO Last administered on 10/19/18 21:07; Start 10/16/18 at 14:00 Rifaximin (Xifaxan) 550 mg Q12HR PO Last administered on 10/19/18 21:07; Start 10/16/18 at 10:00 Pantoprazole Sodium (Protonix) 40 mg DAILYAC PO Last administered on 10/20/18 08:25; Start 10/16/18 at 10:00 Piperacillin Sod/ Tazobactam Sod 2.25 gm/Sodium Chloride 50 ml @ 100 mls/hr Q8HRS IV Last administered on 10/20/18at 08:25; Start 10/16/18 at 11:00 Vancomycin HCl (Vanco Per Pharmacy) 1 each PRN DAILY PRN MC SEE COMMENTS Last administered on 10/19/18at 14:17; Start 10/16/18 at 10:45 Vancomycin HCl 1.75 gm/Sodium Chloride 500 ml @ 250 mls/hr 1X ONCE IV Last administered on 10/16/18at 15:24; Start 10/16/18 at 11:00; Stop 10/16/18 at 12:59 ; Status DC Vancomycin HCl (Vancomycin Random Level) 1 each 1X ONCE MC Last administered on 10/17/18at 05:05; Start 10/17/18 at 06:00; Stop 10/17/18 at 06:01; Status DC Iohexol (Omnipaque 350 Mg/ml) 100 ml 1X ONCE IV ; Start 10/16/18 at 17:15; Stop 10/16/18 at 17:16; Status DC Info (CONTRAST GIVEN -- Rx MONITORING) 1 each PRN DAILY PRN MC SEE COMMENTS; Start 10/16/18 at 17:30; Stop 10/18/18 at 17:29; Status DC Nystatin (Nystop) 1 ronel BID TP Last administered on 10/19/18at 09:05; Start at 21:30 Temazepam (Restoril) 7.5 mg PRN QHS PRN PO INSOMNIA; Start 10/16/18 at 22:30 Sodium Chloride 1,000 ml @ 1,000 mls/hr Q1H PRN IV hypotension; Start 10/17/18 at 09:28; Stop 10/17/18 at 15:27; Status DC Albumin Human 200 ml @ 200 mls/hr 1X PRN PRN IV Hypotension; Start 10/17/18 at 09:30; Stop 10/17/18 at 15:29; Status DC Sodium Chloride 1,000 ml @ 400 mls/hr Q2H30M PRN IV PATENCY; Start 10/17/18 at 09:28; Stop 10/17/18 at 21:27; Status DC Info (PHARMACY MONITORING -- do not chart) 1 each PRN DAILY PRN MC SEE COMMENTS ; Start 10/17/18 at 09:30; Stop 10/17/18 at 09:34; Status DC Info (PHARMACY MONITORING -- do not chart) 1 each PRN DAILY PRN MC SEE COMMENTS ; Start 10/17/18 at 09:30 Vancomycin HCl 500 mg/Sodium Chloride 100 ml @ 100 mls/hr QTUTHSA IV Last administered on 10/17/18at 17:25; Start 10/17/18 at 16:00 Sodium Chloride 250 ml @ 0 mls/hr 1X PRN PRN IV SBP <= 80; Start 10/18/18 at 12 :30 Methylprednisolone Acetate (DEPO-Medrol 40MG VIAL) 40 mg 1X ONCE IM Last administered on 10/18/18at 14:40; Start 10/18/18 at 13:45; Stop 10/18/18 at 13:46 ; Status DC Bupivacaine HCl (Sensorcaine-Mpf 0.25%) 10 ml 1X ONCE IJ Last administered on 10/18/18at 14:40; Start 10/18/18 at 13:45; Stop 10/18/18 at 13:46; Status DC Lorazepam (Ativan) 0.5 mg PRN Q8HRS PRN PO ANXIETY / AGITATION 1ST CHOICE Last administered on 10/19/18at 14:47; Start 10/19/18 at 13:15 Alprazolam (Xanax) 0.25 mg PRN Q8HRS PRN PO ANXIETY / AGITATION 2ND CHOICE; Start 10/19/18 at 13:30 Sodium Chloride 1,000 ml @ 1,000 mls/hr Q1H PRN IV hypotension; Start 10/20/18 at 08:29; Stop 10/20/18 at 14:28 Sodium Chloride 1,000 ml @ 400 mls/hr Q2H30M PRN IV PATENCY; Start 10/20/18 at 08:29; Stop 10/20/18 at 20:28 Info (PHARMACY MONITORING -- do not chart) 1 each PRN DAILY PRN MC SEE COMMENTS ; Start 10/20/18 at 08:30; Status UNV Info (PHARMACY MONITORING -- do not chart) 1 each PRN DAILY PRN MC SEE COMMENTS ; Start 10/20/18 at 08:30; Status UNV Lidocaine HCl (Lidocaine 1% 20ml Vial) 20 ml 1X ONCE INJ ; Start 10/20/18 at 08 :45; Stop 10/20/18 at 08:46; Status DC Active Scripts Active Zofran (Ondansetron Hcl) 4 Mg Tablet 1 Tab PO Q6HRS Cephalexin 500 Mg Tablet 1 Tab PO BID Humalog (Insulin Lispro) 100 Unit/1 Ml Insuln.pen 5 Units SQ TIDWMEALS 28 Days Culturelle (Lactobacillus Rhamnosus Gg) 1 Each Cap.sprink 1 Cap PO BID 28 Days Lantus Solostar (Insulin Glargine,Hum.rec.anlog) 100 Unit/1 Ml Insuln.pen 15 Units SQ DAILY 28 Days Cipro (Ciprofloxacin Hcl) 250 Mg Tablet 250 Mg PO DAILY 10 Days Lactulose 20 Gm/30 Ml Solution 10 Gm PO PRN TID PRN 10 Days Aspirin Ec (Aspirin) 325 Mg Tablet.dr 325 Mg PO DAILYWBKFT 30 Days Reported Calcium Acetate 667 Mg Tablet 667 Mg PO BID Calcium Acetate 667 Mg Tablet 1,334 Mg PO TIDWMEALS Vitamin D (Cholecalciferol (Vitamin D3)) 50,000 Unit Capsule 50,000 Unit PO DAILY Tizanidine Hcl 2 Mg Capsule 2 Mg PO BID PRN Meclizine Hcl 25 Mg Tablet 1 Tab PO TID Voltaren (Diclofenac Sodium) 100 Gm Gel..gram. 1 Gm TP BID Hydrocodone-Apap 5-325 (Hydrocodone Bit/Acetaminophen) 1 Each Tablet 2 Tab PO PRN Q6HRS PRN Clonidine Hcl 0.2 Mg Tablet 0.2 Mg PO DAILY Gabapentin (Gabapentin) 100 Mg Capsule 100 Mg PO DAILY Zoloft (Sertraline Hcl) 50 Mg Tablet 75 Mg PO DAILY Renvela (Sevelamer Carbonate) 800 Mg Tablet 1 Tab PO TIDWMEALS Levothyroxine Sodium 175 Mcg Tablet 125 Mcg PO DAILYAC Dialyvite Barada D Tablet (Multivitamin, Min Cmb#25/Fa/D3) 1 Each Tablet 1 Each PO DAILY Metoprolol Succinate ( Xl ) (Metoprolol Succinate) 25 Mg Tab.er.24h 25 Mg PO DAILY Ondansetron Hcl 4 Mg Tablet 4 Mg PO Q6HRS PRN Zolpidem Tartrate 5 Mg Tablet 5 Mg PO PRN QHS PRN Famotidine 20 Mg Tablet 20 Mg PO DAILY Xifaxan (Rifaximin) 550 Mg Tablet 1 Tab PO BID Isosorbide Dinitrate 30 Mg Tablet 1 Tab PO DAILY Vitals/I & O Vital Sign - Last 24 Hours 10/19/18 10/19/18 10/19/18 10/19/18 08:54 08:55 08:56 10:45 Temp 97.8 97.8 Pulse 68 68 68 68 Resp 18 B/P (MAP) 139/49 136/49 136/49 138/50 (79) Pulse Ox 95 O2 Delivery Room Air 10/19/18 10/19/18 10/19/18 10/20/18 15:05 19:00 22:37 03:00 Temp 97.8 97.9 97.7 98.1 97.8 97.9 97.7 98.1 Pulse 60 63 66 72 Resp 18 18 18 18 B/P (MAP) 142/54 (83) 141/43 (75) 141/51 (81) 118/56 (76) Pulse Ox 95 96 99 98 O2 Delivery Room Air Room Air Room Air Room Air 10/20/18 07:00 Temp 98.4 98.4 Pulse 78 Resp 17 B/P (MAP) 109/53 (71) Pulse Ox 94 O2 Delivery Room Air Intake and Output 10/19/18 10/19/18 10/20/18 15:00 23:00 07:00 Intake Total 600 ml 350 ml 240 ml Balance 600 ml 350 ml 240 ml FEROZ KELLY MD Oct 20, 2018 08:49
[2018-10-20] MEDS ORDERED: LIDOCAINE 1% PF 2 ML VIAL. ONE ×2 (08:55→09:00)
[2018-10-20] MEDS: rifAXIMin 550 MG TABLET PO SCH ×2 (09:00→21:00)
[2018-10-20] MEDS: NYSTATIN TOPICAL POWDER 15GM BOTTLE. TP SCH ×2 (09:00→21:00)
[2018-10-20] MEDS: LACTOBACILLUS RHAMNOSUS GG 1 CAPSULE. PO SCH ×2 (09:00→21:00)
[2018-10-20] MEDS: METOPROLOL SUCC 24HR ER 25 MG TAB.ER.24H. PO SCH (09:00)
[2018-10-20] MEDS: ISOSORBIDE MONONITRATE ER 30 MG TAB.ER.24H PO SCH (09:00)
[2018-10-20] MEDS: LACTULOSE 20 GM/30 ML SOLUTION. PO SCH ×3 (09:00→21:00)
[2018-10-20] MEDS: GABAPENTIN 100 MG CAPSULE. PO SCH (09:00)
[2018-10-20] MEDS: cloNIDine HCL 0.2 MG TABLET PO SCH (09:00)
[2018-10-20] MEDS: DICLOFENAC SODIUM 1% TOPICAL GEL 100GM TUBE. TP SCH ×2 (09:00→21:00)
--- NOTE | 2018-10-20 09:00 | NUR ---
KEITH following pt. Spoke with Keisha at [facility] and they have declined to take pt due to medication and transportation cost. KEITH left a voice mail pt's Kevin, phone: [phone] requesting a call back to discuss other options. Will continue to follow.
--- NOTE | 2018-10-20 09:27 | PDOC ---
KAPIL MAZARIEGOS NURSE CASE MANAGEMENT 10/20/18926: SURGICAL PROGRESS NOTE Subjective pain abdomen continues seen during dialysis Vital Signs Vital Signs Date Time Temp Pulse Resp B/P (MAP) Pulse Ox O2 Delivery O2 Flow Rate FiO2 10/20/18 07:00 98.4 78 17 109/53 (71) 94 Room Air 98.4 I&O Intake and Output 10/20/18 06:59 Intake Total 1190 ml Balance 1190 ml Intake Oral 1140 ml IV Total 50 ml # Bowel Movements 2 General: Alert, Oriented X3, Cooperative, No acute distress Abdomen: Soft, Other (pannus with thickend tissue, tenderness on exam) Labs Laboratory Tests Test 10/18/18 09:35 10/18/18 10:58 10/18/18 16:59 10/18/18 21:02 White Blood Count 6.1 x10^3/uL (4.0-11.0) Red Blood Count 3.31 x10^6/uL (3.50-5.40) Hemoglobin 10.3 g/dL (12.0-15.5) Hematocrit 30.5 % (36.0-47.0) Mean Corpuscular Volume 92 fL (79-100) Mean Corpuscular Hemoglobin 31 pg (25-35) Mean Corpuscular Hemoglobin Concent 34 g/dL (31-37) Red Cell Distribution Width 16.7 % (11.5-14.5) Platelet Count 71 x10^3/uL (140-400) Neutrophils (%) (Auto) 79 % (31-73) Lymphocytes (%) (Auto) 8 % (24-48) Monocytes (%) (Auto) 9 % (0-9) Eosinophils (%) (Auto) 3 % (0-3) Basophils (%) (Auto) 1 % (0-3) Neutrophils # (Auto) 4.8 x10^3uL (1.8-7.7) Lymphocytes # (Auto) 0.5 x10^3/uL (1.0-4.8) Monocytes # (Auto) 0.6 x10^3/uL (0.0-1.1) Eosinophils # (Auto) 0.2 x10^3/uL (0.0-0.7) Basophils # (Auto) 0.0 x10^3/uL (0.0-0.2) Sodium Level 136 mmol/L (136-145) Potassium Level 3.7 mmol/L (3.5-5.1) Chloride Level 97 mmol/L (98-107) Carbon Dioxide Level 28 mmol/L (21-32) Anion Gap 11 (6-14) Blood Urea Nitrogen 23 mg/dL (7-20) Creatinine 4.0 mg/dL (0.6-1.0) Estimated GFR (Cockcroft-Gault) 11.0 Glucose Level 208 mg/dL (70-99) Calcium Level 7.4 mg/dL (8.5-10.1) Phosphorus Level 4.7 mg/dL (2.6-4.7) Albumin 1.9 g/dL (3.4-5.0) Glucose (Fingerstick) 167 mg/dL (70-99) 153 mg/dL (70-99) 157 mg/dL (70-99) Test 10/19/18 03:55 10/19/18 07:36 10/19/18 11:04 10/19/18 16:30 White Blood Count 7.5 x10^3/uL (4.0-11.0) Red Blood Count 3.36 x10^6/uL (3.50-5.40) Hemoglobin 10.4 g/dL (12.0-15.5) Hematocrit 30.7 % (36.0-47.0) Mean Corpuscular Volume 91 fL (79-100) Mean Corpuscular Hemoglobin 31 pg (25-35) Mean Corpuscular Hemoglobin Concent 34 g/dL (31-37) Red Cell Distribution Width 16.6 % (11.5-14.5) Platelet Count 91 x10^3/uL (140-400) Neutrophils (%) (Auto) 84 % (31-73) Lymphocytes (%) (Auto) 7 % (24-48) Monocytes (%) (Auto) 8 % (0-9) Eosinophils (%) (Auto) 2 % (0-3) Basophils (%) (Auto) 0 % (0-3) Neutrophils # (Auto) 6.3 x10^3uL (1.8-7.7) Lymphocytes # (Auto) 0.5 x10^3/uL (1.0-4.8) Monocytes # (Auto) 0.6 x10^3/uL (0.0-1.1) Eosinophils # (Auto) 0.1 x10^3/uL (0.0-0.7) Basophils # (Auto) 0.0 x10^3/uL (0.0-0.2) Sodium Level 136 mmol/L (136-145) Potassium Level 4.0 mmol/L (3.5-5.1) Chloride Level 97 mmol/L (98-107) Carbon Dioxide Level 27 mmol/L (21-32) Anion Gap 12 (6-14) Blood Urea Nitrogen 29 mg/dL (7-20) Creatinine 4.5 mg/dL (0.6-1.0) Estimated GFR (Cockcroft-Gault) 9.6 Glucose Level 230 mg/dL (70-99) Calcium Level 7.5 mg/dL (8.5-10.1) Phosphorus Level 5.2 mg/dL (2.6-4.7) Albumin 2.0 g/dL (3.4-5.0) Glucose (Fingerstick) 225 mg/dL (70-99) 169 mg/dL (70-99) 154 mg/dL (70-99) Test 10/20/18 04:35 10/20/18 07:20 White Blood Count 4.5 x10^3/uL (4.0-11.0) Red Blood Count 2.84 x10^6/uL (3.50-5.40) Hemoglobin 8.7 g/dL (12.0-15.5) Hematocrit 25.7 % (36.0-47.0) Mean Corpuscular Volume 90 fL (79-100) Mean Corpuscular Hemoglobin 31 pg (25-35) Mean Corpuscular Hemoglobin Concent 34 g/dL (31-37) Red Cell Distribution Width 16.5 % (11.5-14.5) Platelet Count 71 x10^3/uL (140-400) Neutrophils (%) (Auto) 69 % (31-73) Lymphocytes (%) (Auto) 15 % (24-48) Monocytes (%) (Auto) 11 % (0-9) Eosinophils (%) (Auto) 4 % (0-3) Basophils (%) (Auto) 1 % (0-3) Neutrophils # (Auto) 3.1 x10^3uL (1.8-7.7) Lymphocytes # (Auto) 0.7 x10^3/uL (1.0-4.8) Monocytes # (Auto) 0.5 x10^3/uL (0.0-1.1) Eosinophils # (Auto) 0.2 x10^3/uL (0.0-0.7) Basophils # (Auto) 0.0 x10^3/uL (0.0-0.2) Sodium Level 137 mmol/L (136-145) Potassium Level 3.6 mmol/L (3.5-5.1) Chloride Level 100 mmol/L (98-107) Carbon Dioxide Level 25 mmol/L (21-32) Anion Gap 12 (6-14) Blood Urea Nitrogen 36 mg/dL (7-20) Creatinine 5.2 mg/dL (0.6-1.0) Estimated GFR (Cockcroft-Gault) 8.1 Glucose Level 96 mg/dL (70-99) Calcium Level 7.4 mg/dL (8.5-10.1) Phosphorus Level 6.0 mg/dL (2.6-4.7) Albumin 1.5 g/dL (3.4-5.0) Glucose (Fingerstick) 78 mg/dL (70-99) Laboratory Tests Test 10/19/18 11:04 10/19/18 16:30 10/20/18 04:35 10/20/18 07:20 Glucose (Fingerstick) 169 mg/dL (70-99) 154 mg/dL (70-99) 78 mg/dL (70-99) White Blood Count 4.5 x10^3/uL (4.0-11.0) Red Blood Count 2.84 x10^6/uL (3.50-5.40) Hemoglobin 8.7 g/dL (12.0-15.5) Hematocrit 25.7 % (36.0-47.0) Mean Corpuscular Volume 90 fL (79-100) Mean Corpuscular Hemoglobin 31 pg (25-35) Mean Corpuscular Hemoglobin Concent 34 g/dL (31-37) Red Cell Distribution Width 16.5 % (11.5-14.5) Platelet Count 71 x10^3/uL (140-400) Neutrophils (%) (Auto) 69 % (31-73) Lymphocytes (%) (Auto) 15 % (24-48) Monocytes (%) (Auto) 11 % (0-9) Eosinophils (%) (Auto) 4 % (0-3) Basophils (%) (Auto) 1 % (0-3) Neutrophils # (Auto) 3.1 x10^3uL (1.8-7.7) Lymphocytes # (Auto) 0.7 x10^3/uL (1.0-4.8) Monocytes # (Auto) 0.5 x10^3/uL (0.0-1.1) Eosinophils # (Auto) 0.2 x10^3/uL (0.0-0.7) Basophils # (Auto) 0.0 x10^3/uL (0.0-0.2) Sodium Level 137 mmol/L (136-145) Potassium Level 3.6 mmol/L (3.5-5.1) Chloride Level 100 mmol/L (98-107) Carbon Dioxide Level 25 mmol/L (21-32) Anion Gap 12 (6-14) Blood Urea Nitrogen 36 mg/dL (7-20) Creatinine 5.2 mg/dL (0.6-1.0) Estimated GFR (Cockcroft-Gault) 8.1 Glucose Level 96 mg/dL (70-99) Calcium Level 7.4 mg/dL (8.5-10.1) Phosphorus Level 6.0 mg/dL (2.6-4.7) Albumin 1.5 g/dL (3.4-5.0) Problem List Problems Medical Problems: (1) Cirrhosis of liver with ascites Status: Acute (2) Hyperglycemia Status: Acute (3) Open wound of right foot Status: Acute (4) UTI (urinary tract infection) Status: Acute Assessment/Plan continue current care ARIC BALDERAS MD 10/20/18 1506: SURGICAL PROGRESS NOTE Assessment/Plan Pt seen and examined. Agree with Ms. Mazariegos's note Pt notes cont abd pain, but tolerating diet well abd wall edema cont supportive care KAPIL MAZARIEGOS NURSE CASE MANAGEMENT Oct 20, 2018 09:27 ARIC BALDERAS MD Oct 20, 2018 15:06
--- NOTE | 2018-10-20 11:54 | NUR ---
KEITH following pt. SW received a voice mail from pt's requesting referral be sent to [facility] in [place]. KEITH phoned and faxed referral to [facility]. Pt admission and acceptance pending. Will continue to follow.
[2018-10-20] MEDS: HYDROcodone/APAP 5/325MG 1 TAB TABLET PO PRN ×2 (12:09→18:31)
[2018-10-20] MEDS: VANCOMYCIN PER PHARMACY MC PRN (13:39)
--- NOTE | 2018-10-20 13:46 | PDOC ---
Infectious Disease Note Subjective Subjective feeling ok ROS ROS no n/v/d/sob Vital Sign Vital Signs Vital Signs Date Time Temp Pulse Resp B/P (MAP) Pulse Ox O2 Delivery O2 Flow Rate FiO2 10/20/18 12:09 20 93 Room Air 10/20/18 07:00 98.4 78 109/53 (71) 98.4 Physical Exam PHYSICAL EXAM GENERAL: Sitting on the side of the bed, alert, eating breakfast. In chair on my arrival but looks better HEENT: Oral cavity, pharynx is dry. NECK: Supple. LUNGS: Decreased at bases. HEART: S1 and S2. ABDOMEN: Obese, soft EXTREMITIES: Without clubbing, cyanosis. Chronic changes lower extremities, trace edema, RUE-AVF unremarkable. Right foot bandaged. SKIN: No rash NEUROLOGIC: Alert, responds appropriately PIV ok Labs Lab Laboratory Tests Test 10/19/18 16:30 10/20/18 04:35 10/20/18 07:20 10/20/18 12:08 Glucose (Fingerstick) 154 mg/dL (70-99) 78 mg/dL (70-99) 107 mg/dL (70-99) White Blood Count 4.5 x10^3/uL (4.0-11.0) Red Blood Count 2.84 x10^6/uL (3.50-5.40) Hemoglobin 8.7 g/dL (12.0-15.5) Hematocrit 25.7 % (36.0-47.0) Mean Corpuscular Volume 90 fL (79-100) Mean Corpuscular Hemoglobin 31 pg (25-35) Mean Corpuscular Hemoglobin Concent 34 g/dL (31-37) Red Cell Distribution Width 16.5 % (11.5-14.5) Platelet Count 71 x10^3/uL (140-400) Neutrophils (%) (Auto) 69 % (31-73) Lymphocytes (%) (Auto) 15 % (24-48) Monocytes (%) (Auto) 11 % (0-9) Eosinophils (%) (Auto) 4 % (0-3) Basophils (%) (Auto) 1 % (0-3) Neutrophils # (Auto) 3.1 x10^3uL (1.8-7.7) Lymphocytes # (Auto) 0.7 x10^3/uL (1.0-4.8) Monocytes # (Auto) 0.5 x10^3/uL (0.0-1.1) Eosinophils # (Auto) 0.2 x10^3/uL (0.0-0.7) Basophils # (Auto) 0.0 x10^3/uL (0.0-0.2) Sodium Level 137 mmol/L (136-145) Potassium Level 3.6 mmol/L (3.5-5.1) Chloride Level 100 mmol/L (98-107) Carbon Dioxide Level 25 mmol/L (21-32) Anion Gap 12 (6-14) Blood Urea Nitrogen 36 mg/dL (7-20) Creatinine 5.2 mg/dL (0.6-1.0) Estimated GFR (Cockcroft-Gault) 8.1 Glucose Level 96 mg/dL (70-99) Calcium Level 7.4 mg/dL (8.5-10.1) Phosphorus Level 6.0 mg/dL (2.6-4.7) Albumin 1.5 g/dL (3.4-5.0) Micro Microbiology 10/15/18 Urine Culture - Final, Complete 10/15/18 Urine Culture Result 1 (DARIN) - Final, Complete Objective Assessment Right foot diabetic plantar ulcer, 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 Encephalopathy, better History of pseudomonas on 09/08/2018. Chronic kidney disease, on hemodialysis via AVF Cirrhosis. History of toe cellulitis and wound that is healed. Shoulder pain without swelling. ? rotator tear. Ortho is following Plan Plan of Care Vanc and Zosyn Random [id number] Probiotics Vacular and ortho and us recom amputation, f/u am labs Supportive care I d/w pt and grand daughter, pt is thinking about amputation, grand daughter encouraged her to have one pt now agreed to go for amputation will inform vascular surgery ANUPAMA ALONZO MD Oct 20, 2018 13:46
--- NOTE | 2018-10-20 14:39 | PDOC ---
Provider Note Provider Note Notified today by Dr. Miller that she is agreeable to proceed with the right below the knee amputation. Surgery scheduled on 10/21/2018. MATTIE SANTIAGO MD Oct 20, 2018 14:39
[2018-10-20 15:00] VITALS: BP 112/59
--- NOTE | 2018-10-20 15:02 | PDOC ---
Renal-Progress Notes Subjective Notes Notes NONE History of Present Illness Hx of present illness STABLE Vitals Vitals Vital Signs Date Time Temp Pulse Resp B/P (MAP) Pulse Ox O2 Delivery O2 Flow Rate FiO2 10/20/18 12:09 20 93 Room Air 10/20/18 07:00 98.4 78 109/53 (71) 98.4 Weight Weight [ ] I.O. Intake and Output Intake and Output 10/20/18 07:00 Intake Total 1190 ml Balance 1190 ml Intake Oral 1140 ml IV Total 50 ml # Bowel Movements 2 Labs Labs Laboratory Tests Test 10/19/18 16:30 10/20/18 04:35 10/20/18 07:20 10/20/18 12:08 Glucose (Fingerstick) 154 mg/dL (70-99) 78 mg/dL (70-99) 107 mg/dL (70-99) White Blood Count 4.5 x10^3/uL (4.0-11.0) Red Blood Count 2.84 x10^6/uL (3.50-5.40) Hemoglobin 8.7 g/dL (12.0-15.5) Hematocrit 25.7 % (36.0-47.0) Mean Corpuscular Volume 90 fL (79-100) Mean Corpuscular Hemoglobin 31 pg (25-35) Mean Corpuscular Hemoglobin Concent 34 g/dL (31-37) Red Cell Distribution Width 16.5 % (11.5-14.5) Platelet Count 71 x10^3/uL (140-400) Neutrophils (%) (Auto) 69 % (31-73) Lymphocytes (%) (Auto) 15 % (24-48) Monocytes (%) (Auto) 11 % (0-9) Eosinophils (%) (Auto) 4 % (0-3) Basophils (%) (Auto) 1 % (0-3) Neutrophils # (Auto) 3.1 x10^3uL (1.8-7.7) Lymphocytes # (Auto) 0.7 x10^3/uL (1.0-4.8) Monocytes # (Auto) 0.5 x10^3/uL (0.0-1.1) Eosinophils # (Auto) 0.2 x10^3/uL (0.0-0.7) Basophils # (Auto) 0.0 x10^3/uL (0.0-0.2) Sodium Level 137 mmol/L (136-145) Potassium Level 3.6 mmol/L (3.5-5.1) Chloride Level 100 mmol/L (98-107) Carbon Dioxide Level 25 mmol/L (21-32) Anion Gap 12 (6-14) Blood Urea Nitrogen 36 mg/dL (7-20) Creatinine 5.2 mg/dL (0.6-1.0) Estimated GFR (Cockcroft-Gault) 8.1 Glucose Level 96 mg/dL (70-99) Calcium Level 7.4 mg/dL (8.5-10.1) Phosphorus Level 6.0 mg/dL (2.6-4.7) Albumin 1.5 g/dL (3.4-5.0) Micro Micro Microbiology 10/15/18 Urine Culture - Final, Complete 10/15/18 Urine Culture Result 1 (DARIN) - Final, Complete Review of Systems Constitutional: yes: alert, oriented Ears/Nose/Throat: Yes: no symptom reported Eyes: Yes: no symptom reported Pulmonary: Yes no symptom reported Cardiovascular: Yes no symptom reported Gastrointestional: Yes: no symptom reported Genitourinary: Yes: no symptom reported Musculoskeletal: Yes: no symptom reported Skin: Yes no symptom reported Psychiatric/Neurological: Yes: no symptom reported Endocrine: Yes: no symptom reported Physical Exam General Appearance: no apparent distress Skin: warm Respiratory: decreased breath sounds Heart: S1S2 Abdomen: soft, bowel sounds present Genitourinary: bladder flat Extremities: pulses present Neurology: alert Musculoskeletal: Osteoarthritis Assessment Assessment IMP ESRD ANEMIA RIGHT FOOT WOUND DM II HTN PLAN ANTIBIOTICS WOUND CARE HD TODAY UF TO OPAL HESTER MD Oct 20, 2018 15:02
--- NOTE | 2018-10-20 15:13 | NUR ---
SW following pt. Aug from [facility] reported they will come out to do bedside assessment tomorrow. Pt is scheduled for Sx tomorrow. Discussed with pt's , Kevin. Acceptance and admission still pending. Will continue to follow.
--- NOTE | 2018-10-20 15:22 | PDOC ---
Subjective: Subjective: "I don't know!" Objective: Vital Signs: Vital Signs Date Time Temp Pulse Resp B/P (MAP) Pulse Ox O2 Delivery O2 Flow Rate FiO2 10/20/18 12:09 20 93 Room Air 10/20/18 07:00 98.4 78 109/53 (71) 98.4 Labs: Laboratory Tests Test 10/19/18 16:30 10/20/18 07:20 10/20/18 12:08 Glucose (Fingerstick) 154 mg/dL (70-99) 78 mg/dL (70-99) 107 mg/dL (70-99) PE: GEN: NAD, sitting on edge of bed LUNGS: room air NEURO/PSYCH: A & O 3, tearful, doesn't say much A/P: Right foot ulcer, panniculitis/abd wall edema ESRD on HD, DM, ACD, cirrhosis -- Note amputation planned for tomorrow, will follow. BRENDA DONOVAN Oct 20, 2018 15:21
[2018-10-20] MEDS: ONDANSETRON PF 4 MG/2 ML VIAL. IV PRN ×2 (17:19→21:00)
[2018-10-20] MEDS: SERTRALINE 50 MG TABLET. PO SCH (17:20)
[2018-10-20] MEDS: INSULIN GLARGINE 300 UNITS/3 ML INSULN.PEN. SQ SCH (17:32)
[2018-10-20 18:42] VITALS: BP 148/69
[2018-10-20] MEDS: VANCOMYCIN 500 MG in IV NORMAL SALINE 100ML 100 ML IV SCH (20:59)
[2018-10-20 23:00] VITALS: BP 131/35
[2018-10-21] VITALS (11 sets, daily range): BP systolic 109–152; BP diastolic 38–78
[2018-10-21] MEDS: TEMAZEPAM 7.5 MG CAPSULE PO PRN (00:43)
[2018-10-21] MEDS: HYDROcodone/APAP 5/325MG 1 TAB TABLET PO PRN ×2 (00:44→07:59)
[2018-10-21] MEDS: LEVOTHYROXINE 125 MCG TABLET PO SCH (05:07)
[2018-10-21] MEDS: LORazepam 0.5 MG TABLET PO PRN (05:07)
[2018-10-21] MEDS: PIPERACILLIN/TAZOBACTAM 2.25 GM in IV NORMAL SALINE 50ML 50 ML IV SCH ×3 (05:08→21:32)
[2018-10-21 06:50] LABS: BASO # 0.1 x10^3/uL (0.0-0.2); BASO % 1 % (0-3); EOS # 0.2 x10^3/uL (0.0-0.7); EOS % 2 % (0-3); HEMATOCRIT 34.1 % (36.0-47.0); HEMOGLOBIN 11.4 g/dL (12.0-15.5); LYMPH % 11 % (24-48); MEAN CORPUSCULAR HEMOGLOBIN 31 pg (25-35); MEAN CORPUSCULAR HGB CONC 33 g/dL (31-37); MEAN CORPUSCULAR VOLUME 92 fL (79-100); MONO # 0.9 x10^3/uL (0.0-1.1); MONO % 10 % (0-9); NEUT # 6.8 x10^3uL (1.8-7.7); NEUT % 76 % (31-73); PLATELET COUNT 117 x10^3/uL (140-400); RED BLOOD COUNT 3.73 x10^6/uL (3.50-5.40); RED CELL DISTRIBUTION WIDTH 16.4 % (11.5-14.5)
[2018-10-21 06:56] LABS: PROTHROMBIN TIME PATIENT 18.1 SEC (11.7-14.0)
[2018-10-21] MEDS ORDERED: MORPHINE SULFATE 4 MG/ML VIAL. IV PRN (07:00)
[2018-10-21] MEDS ORDERED: HYDROmorphone 2 MG/ML VIAL IV PRN (07:00)
[2018-10-21] MEDS ORDERED: fentaNYL PF VIAL 100 MCG/2 ML VIAL IV PRN (07:00)
[2018-10-21] MEDS ORDERED: PROCHLORPERAZINE 10 MG/2 ML VIAL. IV PRN (07:00)
[2018-10-21] MEDS ORDERED: IV NORMAL SALINE 1000ML BAG 1,000 ML IV SCH (07:00)
[2018-10-21 07:16] LABS: ALBUMIN 2.2 g/dL (3.4-5.0); CALCIUM 8.2 mg/dL (8.5-10.1); CREATININE 3.6 mg/dL (0.6-1.0); GFR 12.4; PHOSPHORUS 4.7 mg/dL (2.6-4.7); POTASSIUM 3.8 mmol/L (3.5-5.1)
[2018-10-21] MEDS: PANTOPRAZOLE 40 MG TABLET.DR. PO SCH (07:30)
[2018-10-21] MEDS: INSULIN LISPRO 300 UNITS/3 ML INSULN.PEN. SQ SCH ×6 (08:00→16:47)
[2018-10-21] MEDS: SEVELAMER CARBONATE 800 MG TABLET. PO SCH ×3 (08:00→17:00)
[2018-10-21] MEDS: ASPIRIN ENTERIC COATED 325 MG TABLET.DR. PO SCH (08:00)
[2018-10-21] MEDS: LACTOBACILLUS RHAMNOSUS GG 1 CAPSULE. PO SCH ×2 (08:08→21:27)
[2018-10-21] MEDS: INSULIN GLARGINE 300 UNITS/3 ML INSULN.PEN. SQ SCH (08:09)
[2018-10-21] MEDS: NYSTATIN TOPICAL POWDER 15GM BOTTLE. TP SCH ×2 (08:09→21:00)
[2018-10-21] MEDS: LACTULOSE 20 GM/30 ML SOLUTION. PO SCH ×3 (08:10→21:00)
[2018-10-21] MEDS: DICLOFENAC SODIUM 1% TOPICAL GEL 100GM TUBE. TP SCH ×2 (08:10→21:29)
[2018-10-21] MEDS: SERTRALINE 50 MG TABLET. PO SCH (09:00)
[2018-10-21] MEDS: rifAXIMin 550 MG TABLET PO SCH ×2 (09:00→21:26)
[2018-10-21] MEDS: GABAPENTIN 100 MG CAPSULE. PO SCH (09:00)
[2018-10-21] MEDS: ISOSORBIDE MONONITRATE ER 30 MG TAB.ER.24H PO SCH (09:01)
[2018-10-21] MEDS: cloNIDine HCL 0.2 MG TABLET PO SCH (09:01)
[2018-10-21] MEDS: METOPROLOL SUCC 24HR ER 25 MG TAB.ER.24H. PO SCH (09:02)
--- NOTE | 2018-10-21 09:20 | PDOC ---
PROGRESS NOTES Chief Complaint Chief Complaint Cirrhosis Foot ulcer ESRD on HD DM2 History of Present Illness History of Present Illness Ms. Douglass is a 73 year old female with severe right shoulder pain and abdominal pain. Her pain to her abdomen fluctuates, no quigley in stool, Also 10/10 right shoulder pain, she can barely move the arm due to pain. she was last dialyzed on Friday, and abd pain had fluctuated in the past few days prior to admit. 10/17: Seen by vascular for right foot, ID for h/o infection, nephro for ESRD, general surgery for panniculitis surgery not recommensed due to high risk with cirrhosis . Seen by ortho for shoulder pain. 10/18: Right foot very painful today. No BM. Abdomen swelling. Tolerated diet ok. Seen on dialysis. MRI shoulder resulted - Rotator cuff tendinosis. There does appear to be a small full-thickness rotator cuff tear of the supraspinatus tendon, and a probable mild subscapularis tendon tear. Mild subdeltoid bursal fluid or bursitis. 10/19 WOUND PROBES TO THE BONE may need amputation , risk of significant complications given cirrhosis Nondisplaced chip fracture at the medial base of the left second toe 10/20 pt is thinking about amputation, grand daughter encouraged 10/20 She foot pain RIGHT, NOT IMPROVED, breast pain all on the right from her fall. should undergo BKA of RLE. Labs reviewed. D/W nursing staff 10/21 DATE OF SURGERY: 10/21/2018 SURGEON: Xochilt Child M.D. WOOD MODEL BUILDER: Deanna Merino. 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 POSTOPERATIVE DIAGNOSES: Right foot infected gangrene and nonhealing wounds. OPERATION PERFORMED: Right [id number] amputation. BLOOD LOSS: 50 mL. ANESTHESIA USED: General anesthesia. Plan: ortho FOLLOWING GI to see for cirrhosis Nephro to see for ESRD ID for history of MDRO infection - pseudomonas ct right foot 10/19 PERSONALLY REVIEWED IMAGES in my opinion amputation needed, wound unlikely to heal otherwise Vitals Vitals Vital Signs Date Time Temp Pulse Resp B/P (MAP) Pulse Ox O2 Delivery O2 Flow Rate FiO2 10/21/18 09:02 62 152/54 10/21/18 07:59 Room Air 10/21/18 07:15 97.7 20 96 97.7 Physical Exam Physical Exam GENERAL: Sitting on the side of the bed, alert, eating breakfast. In chair on my arrival but looks better HEENT: Oral cavity, pharynx is dry. NECK: Supple. LUNGS: Decreased at bases. HEART: S1 and S2. ABDOMEN: Obese, soft EXTREMITIES: Without clubbing, cyanosis. Chronic changes lower extremities, trace edema, RUE-AVF unremarkable. Right foot bandaged. SKIN: No rash NEUROLOGIC: Alert, responds appropriately PIV ok General: Alert, Oriented X3, Cooperative, No acute distress Heart: Regular rate, Normal S1, Normal S2 Lungs: Clear Abdomen: Soft, Other (pannus with thickend tissue, tenderness on exam) Extremities: No cyanosis, Other (the right shoulder is tender to palpation around the greater tuberosity and rotator cuff. The gross alignment is normal and there is no effusion or erythema. Passive range of motion is very limited, and was painful at the extremes, only about 40 forward flexion and 40 of abduction before it got quite painful and she said "I'm going to hit you if you continue". She has a pulsatile dialysis shunt in the right upper arm near the distal biceps, anterior humerus antecubital fossa region. The biceps tendon seems to be intact to resisted motion, and there does not seem to be pain or deformity at the elbow. Her distal sensation and motor function are preserved.) Skin: Other (right foot dressing with some sanguinous drainage) Labs LABS Laboratory Tests Test 10/20/18 12:08 10/20/18 17:17 10/20/18 21:50 10/21/18 06:00 Glucose (Fingerstick) 107 mg/dL (70-99) 142 mg/dL (70-99) 149 mg/dL (70-99) White Blood Count 9.0 x10^3/uL (4.0-11.0) Red Blood Count 3.73 x10^6/uL (3.50-5.40) Hemoglobin 11.4 g/dL (12.0-15.5) Hematocrit 34.1 % (36.0-47.0) Mean Corpuscular Volume 92 fL (79-100) Mean Corpuscular Hemoglobin 31 pg (25-35) Mean Corpuscular Hemoglobin Concent 33 g/dL (31-37) Red Cell Distribution Width 16.4 % (11.5-14.5) Platelet Count 117 x10^3/uL (140-400) Neutrophils (%) (Auto) 76 % (31-73) Lymphocytes (%) (Auto) 11 % (24-48) Monocytes (%) (Auto) 10 % (0-9) Eosinophils (%) (Auto) 2 % (0-3) Basophils (%) (Auto) 1 % (0-3) Neutrophils # (Auto) 6.8 x10^3uL (1.8-7.7) Lymphocytes # (Auto) 1.0 x10^3/uL (1.0-4.8) Monocytes # (Auto) 0.9 x10^3/uL (0.0-1.1) Eosinophils # (Auto) 0.2 x10^3/uL (0.0-0.7) Basophils # (Auto) 0.1 x10^3/uL (0.0-0.2) Prothrombin Time 18.1 SEC (11.7-14.0) Prothromb Time International Ratio 1.5 (0.8-1.1) Sodium Level 140 mmol/L (136-145) Potassium Level 3.8 mmol/L (3.5-5.1) Chloride Level 99 mmol/L (98-107) Carbon Dioxide Level 28 mmol/L (21-32) Anion Gap 13 (6-14) Blood Urea Nitrogen 23 mg/dL (7-20) Creatinine 3.6 mg/dL (0.6-1.0) Estimated GFR (Cockcroft-Gault) 12.4 Glucose Level 121 mg/dL (70-99) Calcium Level 8.2 mg/dL (8.5-10.1) Phosphorus Level 4.7 mg/dL (2.6-4.7) Albumin 2.2 g/dL (3.4-5.0) Test 10/21/18 07:40 Glucose (Fingerstick) 101 mg/dL (70-99) Assessment and Plan Assessmemt and Plan Problems Medical Problems: (1) Cirrhosis of liver with ascites Status: Acute (2) Hyperglycemia Status: Acute (3) Open wound of right foot Status: Acute (4) UTI (urinary tract infection) Status: Acute Comment Review of Relevant I have reviewed the following items karyn (where applicable) has been applied. Labs Laboratory Tests Test 10/19/18 11:04 10/19/18 16:30 10/20/18 04:35 10/20/18 07:20 Glucose (Fingerstick) 169 mg/dL (70-99) 154 mg/dL (70-99) 78 mg/dL (70-99) White Blood Count 4.5 x10^3/uL (4.0-11.0) Red Blood Count 2.84 x10^6/uL (3.50-5.40) Hemoglobin 8.7 g/dL (12.0-15.5) Hematocrit 25.7 % (36.0-47.0) Mean Corpuscular Volume 90 fL (79-100) Mean Corpuscular Hemoglobin 31 pg (25-35) Mean Corpuscular Hemoglobin Concent 34 g/dL (31-37) Red Cell Distribution Width 16.5 % (11.5-14.5) Platelet Count 71 x10^3/uL (140-400) Neutrophils (%) (Auto) 69 % (31-73) Lymphocytes (%) (Auto) 15 % (24-48) Monocytes (%) (Auto) 11 % (0-9) Eosinophils (%) (Auto) 4 % (0-3) Basophils (%) (Auto) 1 % (0-3) Neutrophils # (Auto) 3.1 x10^3uL (1.8-7.7) Lymphocytes # (Auto) 0.7 x10^3/uL (1.0-4.8) Monocytes # (Auto) 0.5 x10^3/uL (0.0-1.1) Eosinophils # (Auto) 0.2 x10^3/uL (0.0-0.7) Basophils # (Auto) 0.0 x10^3/uL (0.0-0.2) Sodium Level 137 mmol/L (136-145) Potassium Level 3.6 mmol/L (3.5-5.1) Chloride Level 100 mmol/L (98-107) Carbon Dioxide Level 25 mmol/L (21-32) Anion Gap 12 (6-14) Blood Urea Nitrogen 36 mg/dL (7-20) Creatinine 5.2 mg/dL (0.6-1.0) Estimated GFR (Cockcroft-Gault) 8.1 Glucose Level 96 mg/dL (70-99) Calcium Level 7.4 mg/dL (8.5-10.1) Phosphorus Level 6.0 mg/dL (2.6-4.7) Albumin 1.5 g/dL (3.4-5.0) Test 10/20/18 12:08 10/20/18 17:17 10/20/18 21:50 10/21/18 06:00 Glucose (Fingerstick) 107 mg/dL (70-99) 142 mg/dL (70-99) 149 mg/dL (70-99) White Blood Count 9.0 x10^3/uL (4.0-11.0) Red Blood Count 3.73 x10^6/uL (3.50-5.40) Hemoglobin 11.4 g/dL (12.0-15.5) Hematocrit 34.1 % (36.0-47.0) Mean Corpuscular Volume 92 fL (79-100) Mean Corpuscular Hemoglobin 31 pg (25-35) Mean Corpuscular Hemoglobin Concent 33 g/dL (31-37) Red Cell Distribution Width 16.4 % (11.5-14.5) Platelet Count 117 x10^3/uL (140-400) Neutrophils (%) (Auto) 76 % (31-73) Lymphocytes (%) (Auto) 11 % (24-48) Monocytes (%) (Auto) 10 % (0-9) Eosinophils (%) (Auto) 2 % (0-3) Basophils (%) (Auto) 1 % (0-3) Neutrophils # (Auto) 6.8 x10^3uL (1.8-7.7) Lymphocytes # (Auto) 1.0 x10^3/uL (1.0-4.8) Monocytes # (Auto) 0.9 x10^3/uL (0.0-1.1) Eosinophils # (Auto) 0.2 x10^3/uL (0.0-0.7) Basophils # (Auto) 0.1 x10^3/uL (0.0-0.2) Prothrombin Time 18.1 SEC (11.7-14.0) Prothromb Time International Ratio 1.5 (0.8-1.1) Sodium Level 140 mmol/L (136-145) Potassium Level 3.8 mmol/L (3.5-5.1) Chloride Level 99 mmol/L (98-107) Carbon Dioxide Level 28 mmol/L (21-32) Anion Gap 13 (6-14) Blood Urea Nitrogen 23 mg/dL (7-20) Creatinine 3.6 mg/dL (0.6-1.0) Estimated GFR (Cockcroft-Gault) 12.4 Glucose Level 121 mg/dL (70-99) Calcium Level 8.2 mg/dL (8.5-10.1) Phosphorus Level 4.7 mg/dL (2.6-4.7) Albumin 2.2 g/dL (3.4-5.0) Test 10/21/18 07:40 Glucose (Fingerstick) 101 mg/dL (70-99) Laboratory Tests Test 10/20/18 12:08 10/20/18 17:17 10/20/18 21:50 10/21/18 06:00 Glucose (Fingerstick) 107 mg/dL (70-99) 142 mg/dL (70-99) 149 mg/dL (70-99) White Blood Count 9.0 x10^3/uL (4.0-11.0) Red Blood Count 3.73 x10^6/uL (3.50-5.40) Hemoglobin 11.4 g/dL (12.0-15.5) Hematocrit 34.1 % (36.0-47.0) Mean Corpuscular Volume 92 fL (79-100) Mean Corpuscular Hemoglobin 31 pg (25-35) Mean Corpuscular Hemoglobin Concent 33 g/dL (31-37) Red Cell Distribution Width 16.4 % (11.5-14.5) Platelet Count 117 x10^3/uL (140-400) Neutrophils (%) (Auto) 76 % (31-73) Lymphocytes (%) (Auto) 11 % (24-48) Monocytes (%) (Auto) 10 % (0-9) Eosinophils (%) (Auto) 2 % (0-3) Basophils (%) (Auto) 1 % (0-3) Neutrophils # (Auto) 6.8 x10^3uL (1.8-7.7) Lymphocytes # (Auto) 1.0 x10^3/uL (1.0-4.8) Monocytes # (Auto) 0.9 x10^3/uL (0.0-1.1) Eosinophils # (Auto) 0.2 x10^3/uL (0.0-0.7) Basophils # (Auto) 0.1 x10^3/uL (0.0-0.2) Prothrombin Time 18.1 SEC (11.7-14.0) Prothromb Time International Ratio 1.5 (0.8-1.1) Sodium Level 140 mmol/L (136-145) Potassium Level 3.8 mmol/L (3.5-5.1) Chloride Level 99 mmol/L (98-107) Carbon Dioxide Level 28 mmol/L (21-32) Anion Gap 13 (6-14) Blood Urea Nitrogen 23 mg/dL (7-20) Creatinine 3.6 mg/dL (0.6-1.0) Estimated GFR (Cockcroft-Gault) 12.4 Glucose Level 121 mg/dL (70-99) Calcium Level 8.2 mg/dL (8.5-10.1) Phosphorus Level 4.7 mg/dL (2.6-4.7) Albumin 2.2 g/dL (3.4-5.0) Test 10/21/18 07:40 Glucose (Fingerstick) 101 mg/dL (70-99) Microbiology 10/15/18 Urine Culture - Final, Complete 10/15/18 Urine Culture Result 1 (DARIN) - Final, Complete Medications Current Medications Morphine Sulfate (Morphine Sulfate) 4 mg PRN Q15MIN PRN IV/SQ PAIN GREATER THAN 3/10 Last administered on 10/15/18at 18:50; Start 10/15/18 at 14:15; Stop at 14:14; Status DC Insulin Human Regular (HumuLIN R VIAL) 10 unit 1X ONCE IV ; Start 10/15/18 at 16:45; Stop 10/15/18 at 16:46; Status Cancel Insulin Human Regular (HumuLIN R VIAL) 5 unit 1X ONCE IV Last administered on 10/15/18at 17:04; Start 10/15/18 at 17:15; Stop 10/15/18 at 17:16; Status DC Ondansetron HCl (Zofran) 4 mg PRN Q8HRS PRN IV NAUSEA/VOMITING; Start 10/15/18 at 19:15; Stop 10/16/18 at 19:14; Status DC Morphine Sulfate (Morphine Sulfate) 4 mg PRN Q2HR PRN IV PAIN; Start 10/15/18 at 19:15; Stop 10/16/18 at 19:14; Status DC Insulin Human Lispro (HumaLOG) 0-7 UNITS TIDWMEALS SQ Last administered on 10/19at 18:02; Start 10/16/18 at 08:00 Dextrose (Dextrose 50%-Water Syringe) 12.5 gm PRN Q15MIN PRN IV SEE COMMENTS; Start 10/15/18 at 19:15 Ceftriaxone Sodium (Rocephin) 1 gm Q24H IVP Last administered on 10/15/18at 22: 27; Start 10/15/18 at 20:00; Stop 10/16/18 at 10:39; Status DC Zolpidem Tartrate (Ambien) 5 mg PRN QHS PRN PO INSOMNIA Last administered on at 22:27; Start 10/15/18 at 22:15; Stop 10/16/18 at 22:30; Status DC Aspirin (Ecotrin) 325 mg DAILYWBKFT PO Last administered on 10/16/18at 13:43; Start 10/16/18 at 10:00 Clonidine HCl (Catapres) 0.2 mg DAILY PO Last administered on 10/21/18at 09:01; Start 10/16/18 at 09:00 Diclofenac Sodium (Voltaren) 1 ronel BID TP Last administered on 10/19/18at 22:10 ; Start 10/16/18 at 09:00 Famotidine (Pepcid) 20 mg QODAY PO ; Start 10/16/18 at 09:00; Stop 10/16/18 at 09:35; Status DC Gabapentin (Neurontin) 100 mg DAILY PO Last administered on 10/19/18at 08:43; Start 10/16/18 at 09:00 Acetaminophen/ Hydrocodone Bitart (Lortab 5/325) 2 tab PRN Q6HRS PRN PO PAIN Last administered on 10/21/18at 07:59; Start 10/16/18 at 08:30 Insulin Glargine (Lantus) 15 units DAILY SQ Last administered on 10/20/18at 17: 32; Start 10/16/18 at 09:00 Insulin Human Lispro (HumaLOG) 5 units TIDWMEALS SQ Last administered on 17:00; Start 10/16/18 at 12:00 Lactobacillus Rhamnosus (Culturelle) 1 cap BID PO Last administered on at 21:00; Start 10/16/18 at 09:00 Lactulose (Lactulose) 10 gm PRN TID PRN PO CONSTIPATION; Start 10/16/18 at 08: 30; Stop 10/16/18 at 09:35; Status DC Levothyroxine Sodium (Synthroid) 125 mcg DAILY06 PO Last administered on 05:07; Start 10/16/18 at 09:00 Metoprolol Succinate (Toprol Xl) 25 mg DAILY PO Last administered on 10/21/18 09:02; Start 10/16/18 at 09:00 Rifaximin (Xifaxan) 550 mg BID PO Last administered on 10/16/18at 13:40; Start 10/16/18 at 09:00; Stop 10/16/18 at 16:03; Status DC Sertraline HCl (Zoloft) 75 mg DAILY PO Last administered on 10/20/18 17:20; Start 10/16/18 at 09:00 Sevelamer Carbonate (Renvela) 800 mg TIDWMEALS PO Last administered on 17:19; Start 10/16/18 at 12:00 Isosorbide Mononitrate (Imdur) 30 mg DAILY PO Last administered on 10/21/18 09 :01; Start 10/16/18 at 09:00 Lactulose (Lactulose) 10 gm TID PO Last administered on 10/19/18 21:07; Start 10/16/18 at 14:00 Rifaximin (Xifaxan) 550 mg Q12HR PO Last administered on 10/20/18 21:00; Start 10/16/18 at 10:00 Pantoprazole Sodium (Protonix) 40 mg DAILYAC PO Last administered on 10/20/18 08:25; Start 10/16/18 at 10:00 Piperacillin Sod/ Tazobactam Sod 2.25 gm/Sodium Chloride 50 ml @ 100 mls/hr Q8HRS IV Last administered on 2/27/19at 05:08; Start 10/16/18 at 11:00 Vancomycin HCl (Vanco Per Pharmacy) 1 each PRN DAILY PRN MC SEE COMMENTS Last administered on 10/20/18at 13:39; Start 10/16/18 at 10:45 Vancomycin HCl 1.75 gm/Sodium Chloride 500 ml @ 250 mls/hr 1X ONCE IV Last administered on 10/16/18at 15:24; Start 10/16/18 at 11:00; Stop 10/16/18 at 12:59 ; Status DC Vancomycin HCl (Vancomycin Random Level) 1 each 1X ONCE MC Last administered on 10/17/18at 05:05; Start 10/17/18 at 06:00; Stop 10/17/18 at 06:01; Status DC Iohexol (Omnipaque 350 Mg/ml) 100 ml 1X ONCE IV ; Start 10/16/18 at 17:15; Stop 10/16/18 at 17:16; Status DC Info (CONTRAST GIVEN -- Rx MONITORING) 1 each PRN DAILY PRN MC SEE COMMENTS; Start 10/16/18 at 17:30; Stop 10/18/18 at 17:29; Status DC Nystatin (Nystop) 1 ronel BID TP Last administered on 10/19/18at 09:05; Start at 21:30 Temazepam (Restoril) 7.5 mg PRN QHS PRN PO INSOMNIA Last administered on at 00:43; Start 10/16/18 at 22:30 Sodium Chloride 1,000 ml @ 1,000 mls/hr Q1H PRN IV hypotension; Start 10/17/18 at 09:28; Stop 10/17/18 at 15:27; Status DC Albumin Human 200 ml @ 200 mls/hr 1X PRN PRN IV Hypotension; Start 10/17/18 at 09:30; Stop 10/17/18 at 15:29; Status DC Sodium Chloride 1,000 ml @ 400 mls/hr Q2H30M PRN IV PATENCY; Start 10/17/18 at 09:28; Stop 10/17/18 at 21:27; Status DC Info (PHARMACY MONITORING -- do not chart) 1 each PRN DAILY PRN MC SEE COMMENTS ; Start 10/17/18 at 09:30; Stop 10/17/18 at 09:34; Status DC Info (PHARMACY MONITORING -- do not chart) 1 each PRN DAILY PRN MC SEE COMMENTS ; Start 10/17/18 at 09:30 Vancomycin HCl 500 mg/Sodium Chloride 100 ml @ 100 mls/hr QTUTHSA IV Last administered on 10/20/18at 20:59; Start 10/17/18 at 16:00 Sodium Chloride 250 ml @ 0 mls/hr 1X PRN PRN IV SBP <= 80; Start 10/18/18 at 12 :30 Methylprednisolone Acetate (DEPO-Medrol 40MG VIAL) 40 mg 1X ONCE IM Last administered on 10/18/18at 14:40; Start 10/18/18 at 13:45; Stop 10/18/18 at 13:46 ; Status DC Bupivacaine HCl (Sensorcaine-Mpf 0.25%) 10 ml 1X ONCE IJ Last administered on 10/18/18at 14:40; Start 10/18/18 at 13:45; Stop 10/18/18 at 13:46; Status DC Lorazepam (Ativan) 0.5 mg PRN Q8HRS PRN PO ANXIETY / AGITATION 1ST CHOICE Last administered on 10/21/18at 05:07; Start 10/19/18 at 13:15 Alprazolam (Xanax) 0.25 mg PRN Q8HRS PRN PO ANXIETY / AGITATION 2ND CHOICE; Start 10/19/18 at 13:30 Sodium Chloride 1,000 ml @ 1,000 mls/hr Q1H PRN IV hypotension; Start 10/20/18 at 08:29; Stop 10/20/18 at 14:28; Status DC Sodium Chloride 1,000 ml @ 400 mls/hr Q2H30M PRN IV PATENCY; Start 10/20/18 at 08:29; Stop 10/20/18 at 20:30; Status DC Info (PHARMACY MONITORING -- do not chart) 1 each PRN DAILY PRN MC SEE COMMENTS ; Start 10/20/18 at 08:30; Status UNV Info (PHARMACY MONITORING -- do not chart) 1 each PRN DAILY PRN MC SEE COMMENTS ; Start 10/20/18 at 08:30; Status UNV Lidocaine HCl (Lidocaine 1% 20ml Vial) 20 ml 1X ONCE INJ ; Start 10/20/18 at 08 :45; Stop 10/20/18 at 08:46; Status DC Lidocaine HCl (Xylocaine-Mpf 1% 2ml Vial) 2 ml STK-MED ONCE .ROUTE ; Start 10/20 at 08:55; Stop 10/20/18 at 08:56; Status DC Ondansetron HCl (Zofran) 4 mg PRN Q6HRS PRN IV NAUSEA/VOMITING Last administered on 10/20/18at 21:00; Start 10/20/18 at 16:30 Fentanyl Citrate (Fentanyl 2ml Vial) 25 mcg PRN Q5MIN PRN IV MILD PAIN; Start 10/21/18 at 07:00; Stop 10/22/18 at 06:59 Fentanyl Citrate (Fentanyl 2ml Vial) 50 mcg PRN Q5MIN PRN IV MODERATE TO SEVERE PAIN; Start 10/21/18 at 07:00; Stop 10/22/18 at 06:59 Morphine Sulfate (Morphine Sulfate) 1 mg PRN Q10MIN PRN IV SEVERE PAIN; Start 10/21/18 at 07:00; Stop 10/22/18 at 06:59 Hydromorphone HCl (Dilaudid) 0.5 mg PRN Q10MIN PRN IV SEV PAIN, Second choice; Start 10/21/18 at 07:00; Stop 10/22/18 at 06:59 Prochlorperazine Edisylate (Compazine) 5 mg PACU PRN PRN IV NAUSEA, MRX1; Start 10/21/18 at 07:00; Stop 10/22/18 at 06:59 Sodium Chloride 1,000 ml @ 0 mls/hr Q0M IV ; Start 10/21/18 at 07:00 Active Scripts Active Zofran (Ondansetron Hcl) 4 Mg Tablet 1 Tab PO Q6HRS Cephalexin 500 Mg Tablet 1 Tab PO BID Humalog (Insulin Lispro) 100 Unit/1 Ml Insuln.pen 5 Units SQ TIDWMEALS 28 Days Culturelle (Lactobacillus Rhamnosus Gg) 1 Each Cap.sprink 1 Cap PO BID 28 Days Lantus Solostar (Insulin Glargine,Hum.rec.anlog) 100 Unit/1 Ml Insuln.pen 15 Units SQ DAILY 28 Days Cipro (Ciprofloxacin Hcl) 250 Mg Tablet 250 Mg PO DAILY 10 Days Lactulose 20 Gm/30 Ml Solution 10 Gm PO PRN TID PRN 10 Days Aspirin Ec (Aspirin) 325 Mg Tablet.dr 325 Mg PO DAILYWBKFT 30 Days Reported Calcium Acetate 667 Mg Tablet 667 Mg PO BID Calcium Acetate 667 Mg Tablet 1,334 Mg PO TIDWMEALS Vitamin D (Cholecalciferol (Vitamin D3)) 50,000 Unit Capsule 50,000 Unit PO DAILY Tizanidine Hcl 2 Mg Capsule 2 Mg PO BID PRN Meclizine Hcl 25 Mg Tablet 1 Tab PO TID Voltaren (Diclofenac Sodium) 100 Gm Gel..gram. 1 Gm TP BID Hydrocodone-Apap 5-325 (Hydrocodone Bit/Acetaminophen) 1 Each Tablet 2 Tab PO PRN Q6HRS PRN Clonidine Hcl 0.2 Mg Tablet 0.2 Mg PO DAILY Gabapentin (Gabapentin) 100 Mg Capsule 100 Mg PO DAILY Zoloft (Sertraline Hcl) 50 Mg Tablet 75 Mg PO DAILY Renvela (Sevelamer Carbonate) 800 Mg Tablet 1 Tab PO TIDWMEALS Levothyroxine Sodium 175 Mcg Tablet 125 Mcg PO DAILYAC Dialyvite Colona D Tablet (Multivitamin, Min Cmb#25/Fa/D3) 1 Each Tablet 1 Each PO DAILY Metoprolol Succinate ( Xl ) (Metoprolol Succinate) 25 Mg Tab.er.24h 25 Mg PO DAILY Ondansetron Hcl 4 Mg Tablet 4 Mg PO Q6HRS PRN Zolpidem Tartrate 5 Mg Tablet 5 Mg PO PRN QHS PRN Famotidine 20 Mg Tablet 20 Mg PO DAILY Xifaxan (Rifaximin) 550 Mg Tablet 1 Tab PO BID Isosorbide Dinitrate 30 Mg Tablet 1 Tab PO DAILY Vitals/I & O Vital Sign - Last 24 Hours 10/20/18 10/20/18 10/20/18 10/20/18 12:09 15:00 18:31 18:42 Temp 98.4 97.8 98.4 97.8 Pulse 75 60 Resp 20 17 20 18 B/P (MAP) 112/59 (76) 148/69 (95) Pulse Ox 93 97 93 95 O2 Delivery Room Air Room Air Room Air Room Air 10/20/18 10/20/18 10/20/18 10/21/18 19:34 20:14 23:00 00:44 Temp 98.1 98.1 Pulse 67 Resp 18 18 B/P (MAP) 131/35 (67) Pulse Ox 95 96 96 O2 Delivery Room Air Room Air Room Air 10/21/18 10/21/18 10/21/18 10/21/18 02:38 03:00 07:15 07:59 Temp 98.1 97.7 98.1 97.7 Pulse 62 62 Resp 18 18 20 B/P (MAP) 138/40 (72) 152/54 (86) Pulse Ox 96 96 O2 Delivery Room Air Room Air Room Air Room Air 10/21/18 10/21/18 10/21/18 09:01 09:01 09:02 Pulse 62 62 62 B/P (MAP) 152/54 152/54 152/54 FEROZ KELLY MD Oct 21, 2018 09:20
--- NOTE | 2018-10-21 10:06 | PDOC ---
SURGICAL PROGRESS NOTE Subjective Pt sleepy, but awakens easily, c/o persistent abd pain, mildly better Vital Signs Vital Signs Date Time Temp Pulse Resp B/P (MAP) Pulse Ox O2 Delivery O2 Flow Rate FiO2 10/21/18 09:02 62 152/54 10/21/18 07:59 Room Air 10/21/18 07:15 97.7 20 96 97.7 I&O Intake and Output 10/21/18 07:00 # Bowel Movements 2 General: Alert, Oriented X3, Cooperative, mild distress Abdomen: Soft, Other (mild BLQ TTP) Labs Laboratory Tests Test 10/19/18 11:04 10/19/18 16:30 10/20/18 04:35 10/20/18 07:20 Glucose (Fingerstick) 169 mg/dL (70-99) 154 mg/dL (70-99) 78 mg/dL (70-99) White Blood Count 4.5 x10^3/uL (4.0-11.0) Red Blood Count 2.84 x10^6/uL (3.50-5.40) Hemoglobin 8.7 g/dL (12.0-15.5) Hematocrit 25.7 % (36.0-47.0) Mean Corpuscular Volume 90 fL (79-100) Mean Corpuscular Hemoglobin 31 pg (25-35) Mean Corpuscular Hemoglobin Concent 34 g/dL (31-37) Red Cell Distribution Width 16.5 % (11.5-14.5) Platelet Count 71 x10^3/uL (140-400) Neutrophils (%) (Auto) 69 % (31-73) Lymphocytes (%) (Auto) 15 % (24-48) Monocytes (%) (Auto) 11 % (0-9) Eosinophils (%) (Auto) 4 % (0-3) Basophils (%) (Auto) 1 % (0-3) Neutrophils # (Auto) 3.1 x10^3uL (1.8-7.7) Lymphocytes # (Auto) 0.7 x10^3/uL (1.0-4.8) Monocytes # (Auto) 0.5 x10^3/uL (0.0-1.1) Eosinophils # (Auto) 0.2 x10^3/uL (0.0-0.7) Basophils # (Auto) 0.0 x10^3/uL (0.0-0.2) Sodium Level 137 mmol/L (136-145) Potassium Level 3.6 mmol/L (3.5-5.1) Chloride Level 100 mmol/L (98-107) Carbon Dioxide Level 25 mmol/L (21-32) Anion Gap 12 (6-14) Blood Urea Nitrogen 36 mg/dL (7-20) Creatinine 5.2 mg/dL (0.6-1.0) Estimated GFR (Cockcroft-Gault) 8.1 Glucose Level 96 mg/dL (70-99) Calcium Level 7.4 mg/dL (8.5-10.1) Phosphorus Level 6.0 mg/dL (2.6-4.7) Albumin 1.5 g/dL (3.4-5.0) Test 10/20/18 12:08 10/20/18 17:17 10/20/18 21:50 10/21/18 06:00 Glucose (Fingerstick) 107 mg/dL (70-99) 142 mg/dL (70-99) 149 mg/dL (70-99) White Blood Count 9.0 x10^3/uL (4.0-11.0) Red Blood Count 3.73 x10^6/uL (3.50-5.40) Hemoglobin 11.4 g/dL (12.0-15.5) Hematocrit 34.1 % (36.0-47.0) Mean Corpuscular Volume 92 fL (79-100) Mean Corpuscular Hemoglobin 31 pg (25-35) Mean Corpuscular Hemoglobin Concent 33 g/dL (31-37) Red Cell Distribution Width 16.4 % (11.5-14.5) Platelet Count 117 x10^3/uL (140-400) Neutrophils (%) (Auto) 76 % (31-73) Lymphocytes (%) (Auto) 11 % (24-48) Monocytes (%) (Auto) 10 % (0-9) Eosinophils (%) (Auto) 2 % (0-3) Basophils (%) (Auto) 1 % (0-3) Neutrophils # (Auto) 6.8 x10^3uL (1.8-7.7) Lymphocytes # (Auto) 1.0 x10^3/uL (1.0-4.8) Monocytes # (Auto) 0.9 x10^3/uL (0.0-1.1) Eosinophils # (Auto) 0.2 x10^3/uL (0.0-0.7) Basophils # (Auto) 0.1 x10^3/uL (0.0-0.2) Prothrombin Time 18.1 SEC (11.7-14.0) Prothromb Time International Ratio 1.5 (0.8-1.1) Sodium Level 140 mmol/L (136-145) Potassium Level 3.8 mmol/L (3.5-5.1) Chloride Level 99 mmol/L (98-107) Carbon Dioxide Level 28 mmol/L (21-32) Anion Gap 13 (6-14) Blood Urea Nitrogen 23 mg/dL (7-20) Creatinine 3.6 mg/dL (0.6-1.0) Estimated GFR (Cockcroft-Gault) 12.4 Glucose Level 121 mg/dL (70-99) Calcium Level 8.2 mg/dL (8.5-10.1) Phosphorus Level 4.7 mg/dL (2.6-4.7) Albumin 2.2 g/dL (3.4-5.0) Test 10/21/18 07:40 Glucose (Fingerstick) 101 mg/dL (70-99) Laboratory Tests Test 10/20/18 12:08 10/20/18 17:17 10/20/18 21:50 10/21/18 06:00 Glucose (Fingerstick) 107 mg/dL (70-99) 142 mg/dL (70-99) 149 mg/dL (70-99) White Blood Count 9.0 x10^3/uL (4.0-11.0) Red Blood Count 3.73 x10^6/uL (3.50-5.40) Hemoglobin 11.4 g/dL (12.0-15.5) Hematocrit 34.1 % (36.0-47.0) Mean Corpuscular Volume 92 fL (79-100) Mean Corpuscular Hemoglobin 31 pg (25-35) Mean Corpuscular Hemoglobin Concent 33 g/dL (31-37) Red Cell Distribution Width 16.4 % (11.5-14.5) Platelet Count 117 x10^3/uL (140-400) Neutrophils (%) (Auto) 76 % (31-73) Lymphocytes (%) (Auto) 11 % (24-48) Monocytes (%) (Auto) 10 % (0-9) Eosinophils (%) (Auto) 2 % (0-3) Basophils (%) (Auto) 1 % (0-3) Neutrophils # (Auto) 6.8 x10^3uL (1.8-7.7) Lymphocytes # (Auto) 1.0 x10^3/uL (1.0-4.8) Monocytes # (Auto) 0.9 x10^3/uL (0.0-1.1) Eosinophils # (Auto) 0.2 x10^3/uL (0.0-0.7) Basophils # (Auto) 0.1 x10^3/uL (0.0-0.2) Prothrombin Time 18.1 SEC (11.7-14.0) Prothromb Time International Ratio 1.5 (0.8-1.1) Sodium Level 140 mmol/L (136-145) Potassium Level 3.8 mmol/L (3.5-5.1) Chloride Level 99 mmol/L (98-107) Carbon Dioxide Level 28 mmol/L (21-32) Anion Gap 13 (6-14) Blood Urea Nitrogen 23 mg/dL (7-20) Creatinine 3.6 mg/dL (0.6-1.0) Estimated GFR (Cockcroft-Gault) 12.4 Glucose Level 121 mg/dL (70-99) Calcium Level 8.2 mg/dL (8.5-10.1) Phosphorus Level 4.7 mg/dL (2.6-4.7) Albumin 2.2 g/dL (3.4-5.0) Test 10/21/18 07:40 Glucose (Fingerstick) 101 mg/dL (70-99) Problem List Problems Medical Problems: (1) Cirrhosis of liver with ascites Status: Acute (2) Hyperglycemia Status: Acute (3) Open wound of right foot Status: Acute (4) UTI (urinary tract infection) Status: Acute Assessment/Plan panniculitis cont supportive care no surgical plans ARIC BALDERAS MD Oct 21, 2018 10:06
--- NOTE | 2018-10-21 10:51 | PDOC ---
Infectious Disease Note Subjective Subjective feeling ok per , pt sleepy ROS ROS no n/v/d/sob/fever Vital Sign Vital Signs Vital Signs Date Time Temp Pulse Resp B/P (MAP) Pulse Ox O2 Delivery O2 Flow Rate FiO2 10/21/18 09:02 62 152/54 10/21/18 07:59 Room Air 10/21/18 07:15 97.7 20 96 97.7 Physical Exam PHYSICAL EXAM GENERAL: Sitting on the side of the bed, alert, eating breakfast. In chair on my arrival but looks better HEENT: Oral cavity, pharynx is dry. NECK: Supple. LUNGS: Decreased at bases. HEART: S1 and S2. ABDOMEN: Obese, soft EXTREMITIES: Without clubbing, cyanosis. Chronic changes lower extremities, trace edema, RUE-AVF unremarkable. Right foot bandaged. SKIN: No rash NEUROLOGIC: Alert, responds appropriately PIV ok Labs Lab Laboratory Tests Test 10/20/18 12:08 10/20/18 17:17 10/20/18 21:50 10/21/18 06:00 Glucose (Fingerstick) 107 mg/dL (70-99) 142 mg/dL (70-99) 149 mg/dL (70-99) White Blood Count 9.0 x10^3/uL (4.0-11.0) Red Blood Count 3.73 x10^6/uL (3.50-5.40) Hemoglobin 11.4 g/dL (12.0-15.5) Hematocrit 34.1 % (36.0-47.0) Mean Corpuscular Volume 92 fL (79-100) Mean Corpuscular Hemoglobin 31 pg (25-35) Mean Corpuscular Hemoglobin Concent 33 g/dL (31-37) Red Cell Distribution Width 16.4 % (11.5-14.5) Platelet Count 117 x10^3/uL (140-400) Neutrophils (%) (Auto) 76 % (31-73) Lymphocytes (%) (Auto) 11 % (24-48) Monocytes (%) (Auto) 10 % (0-9) Eosinophils (%) (Auto) 2 % (0-3) Basophils (%) (Auto) 1 % (0-3) Neutrophils # (Auto) 6.8 x10^3uL (1.8-7.7) Lymphocytes # (Auto) 1.0 x10^3/uL (1.0-4.8) Monocytes # (Auto) 0.9 x10^3/uL (0.0-1.1) Eosinophils # (Auto) 0.2 x10^3/uL (0.0-0.7) Basophils # (Auto) 0.1 x10^3/uL (0.0-0.2) Prothrombin Time 18.1 SEC (11.7-14.0) Prothromb Time International Ratio 1.5 (0.8-1.1) Sodium Level 140 mmol/L (136-145) Potassium Level 3.8 mmol/L (3.5-5.1) Chloride Level 99 mmol/L (98-107) Carbon Dioxide Level 28 mmol/L (21-32) Anion Gap 13 (6-14) Blood Urea Nitrogen 23 mg/dL (7-20) Creatinine 3.6 mg/dL (0.6-1.0) Estimated GFR (Cockcroft-Gault) 12.4 Glucose Level 121 mg/dL (70-99) Calcium Level 8.2 mg/dL (8.5-10.1) Phosphorus Level 4.7 mg/dL (2.6-4.7) Albumin 2.2 g/dL (3.4-5.0) Test 10/21/18 07:40 Glucose (Fingerstick) 101 mg/dL (70-99) Micro Microbiology 10/15/18 Urine Culture - Final, Complete 10/15/18 Urine Culture Result 1 (DARIN) - Final, Complete Objective Assessment Right foot diabetic plantar ulcer, 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 Encephalopathy, better History of pseudomonas on 09/08/2018. Chronic kidney disease, on hemodialysis via AVF Cirrhosis. History of toe cellulitis and wound that is healed. Shoulder pain without swelling. ? rotator tear. Ortho is following Plan Plan of Care Vanc and Zosyn Random [id number] Probiotics Vacular and ortho and us recom amputation, f/u am labs Supportive care pt is going for amputation today d/w in detail ANUPAMA ALONZO MD Oct 21, 2018 10:50
[2018-10-21] MEDS ORDERED: DEXAMETHASONE SOD PHOS 20 MG/5 ML VIAL. ONE (11:41)
[2018-10-21] MEDS ORDERED: SEVOFLURANE 61 TO 120 MINUTES. IH ONE (11:41)
[2018-10-21] MEDS ORDERED: LIDOCAINE 2% PF 5 ML VIAL. ONE (11:41)
[2018-10-21] MEDS ORDERED: KETAMINE HCL IN NACL, ISO-OSM 50 MG/5 ML SYRINGE ONE (11:41)
[2018-10-21] MEDS ORDERED: fentaNYL PF VIAL 100 MCG/2 ML VIAL ONE ×3 (11:41→14:49)
[2018-10-21] MEDS ORDERED: PROPOFOL 20 ML IV ONE (11:41)
[2018-10-21] MEDS ORDERED: ONDANSETRON PF 4 MG/2 ML VIAL. ONE (11:41)
[2018-10-21] MEDS ORDERED: PHENYLEPHRINE 10 MG/ML VIAL. ONE (11:43)
[2018-10-21] MEDS ORDERED: BACITRACIN 50,000 UNIT in IV NORMAL SALINE 500ML BAG 500 ML IRR ONE (12:43)
--- NOTE | 2018-10-21 14:23 | PDOC ---
BRIEF OPERATIVE NOTE Date: Oct 21, 2018 Pre-Op Diagnosis Infected right foot gangrene Post-Op Diagnosis same Procedure Performed Right below knee amputation Surgeon Dr. Child Senior It Architect Trevon Alicea NP Anesthesia Type: General Blood Loss 50cc Specimens Obtained right leg Findings gangrene right foot Complications none Operative Note see dictated note TREVON ALICEA SECTION WEAVER Oct 21, 2018 14:23
[2018-10-21] MEDS: fentaNYL PF VIAL 100 MCG/2 ML VIAL IV PRN ×3 (14:26→14:51)
--- NOTE | 2018-10-21 14:30 | PDOC ---
Subjective: Subjective: Out of room when I went by earlier during [facility] downtime. Objective: Vital Signs: Vital Signs Date Time Temp Pulse Resp B/P (MAP) Pulse Ox O2 Delivery O2 Flow Rate FiO2 10/21/18 12:05 97.3 59 16 112/57 100 Room Air 2 97.3 Labs: Laboratory Tests Test 10/20/18 17:17 10/20/18 21:50 10/21/18 06:00 10/21/18 07:40 Glucose (Fingerstick) 142 mg/dL 149 mg/dL 101 mg/dL White Blood Count 9.0 x10^3/uL Red Blood Count 3.73 x10^6/uL Hemoglobin 11.4 g/dL Hematocrit 34.1 % Mean Corpuscular Volume 92 fL Mean Corpuscular Hemoglobin 31 pg Mean Corpuscular Hemoglobin Concent 33 g/dL Red Cell Distribution Width 16.4 % Platelet Count 117 x10^3/uL Neutrophils (%) (Auto) 76 % Lymphocytes (%) (Auto) 11 % Monocytes (%) (Auto) 10 % Eosinophils (%) (Auto) 2 % Basophils (%) (Auto) 1 % Neutrophils # (Auto) 6.8 x10^3uL Lymphocytes # (Auto) 1.0 x10^3/uL Monocytes # (Auto) 0.9 x10^3/uL Eosinophils # (Auto) 0.2 x10^3/uL Basophils # (Auto) 0.1 x10^3/uL Prothrombin Time 18.1 SEC Prothromb Time International Ratio 1.5 Sodium Level 140 mmol/L Potassium Level 3.8 mmol/L Chloride Level 99 mmol/L Carbon Dioxide Level 28 mmol/L Anion Gap 13 Blood Urea Nitrogen 23 mg/dL Creatinine 3.6 mg/dL Estimated GFR (Cockcroft-Gault) 12.4 Glucose Level 121 mg/dL Calcium Level 8.2 mg/dL Phosphorus Level 4.7 mg/dL Albumin 2.2 g/dL Test 10/21/18 11:56 10/21/18 14:21 Glucose (Fingerstick) 114 mg/dL 132 mg/dL PE: out of room A/P: S/p RBKA 10/21 Panniculitis/abd wall edema ACD, cirrhosis -- Continue current GI meds, will follow post-op. BRENDA DONOVAN Oct 21, 2018 14:30
--- NOTE | 2018-10-21 14:34 | NUR ---
SW following. Discussed with RN, pt is having a right BKA today. [facility] will meet with pt and family after surgery to do a bedside assessment. SW will continue to follow.
--- NOTE | 2018-10-21 15:03 | OP ---
DATE OF SURGERY: 10/21/2018 SURGEON: Xochilt Child M.D. ASSISTANT COMMISSIONER: Deanna Merino. 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 POSTOPERATIVE DIAGNOSES: Right foot infected gangrene and nonhealing wounds. OPERATION PERFORMED: Right [id number] amputation. BLOOD LOSS: 50 mL. ANESTHESIA USED: General anesthesia. INDICATIONS: The patient is a 73-year-old female with a history of peripheral arterial disease and diabetes mellitus who has a chronic right foot wound, which is very deep in the foot and infected. This area of gangrene has not healed despite wound care in the past. She has been minimally ambulatory at home. Recommendations were made by both Vascular Surgery and Orthopedic Surgery for right [id number] amputation. The patient is agreeable to proceed and informed consent was obtained. Informed consent was obtained including the risks of bleeding, infection, incisional wound healing infections and difficulty healing her incision, possibly requiring further debridement or an above knee amputation in the future. DETAILS OF THE OPERATION: The patient was brought into the operating room and placed on a table in supine position. She received general anesthesia monitored throughout the case by the anesthesiologist. Her right leg was prepped and draped from the groin down to the ankle circumferentially by normal sterile fashion. Her right infected foot was put into a stockinette and wrapped with Coban. We used a sterile tourniquet at the thigh. We used an Esmarch to exsanguinate the leg in an elevated fashion and then inflated the tourniquet. We made a normal type incision for the [id number] amputation with a posterior flap at the lower mid leg. We dissected down through the subcutaneous tissue and fascia with electrocautery. There was copious amount of edema within her soft tissues, but no signs of infection. We dissected down to the tibia bone. We dissected this out anteromedially. We then took down the medial muscular structures down to the popliteal vessels. The popliteal artery and veins were dissected out. They were clamped proximally and distally. They were suture ligated and oversewed with 0 silk sutures and then the clamps removed. We took down the muscular structures in the lateral leg down to the anterior tibial artery vessels, which were clamped proximally and distally. We suture ligated these and oversewn with 0 silk sutures. We dissected down through the muscular structures down to the fibula, which was dissected out and the lateral muscles taken down as well. We elevated the tibia and fibula bone with a bone elevator proximally under the tissues. We then used a bone saw. We divided the tibia bone in an angled fashion so there was no tension on the skin and divided the fibula. We used a bone elevator and elevated the leg. We took down the posterior muscle and tissue layers and then removed the lower leg. The posterior flap was healthy. It came up to the anterior surface easily without tension. We then took the tourniquet off and areas of bleeding were oversewed with 0 silk sutures. We explored the wound meticulously, made sure there was good hemostasis with sutures for several minutes. We then irrigated with copious amounts of antibiotic solution. We placed bone wax over the bone stumps. We made sure there was good hemostasis with no further bleeding before closing. A #10 Carroll-Caal drain was left within the wound through a separate medial lower leg incision. We then closed the fascial layer with interrupted 2-0 Vicryl sutures along the length of the incision. We made sure these were closed together and there were no gallops or looseness of the fascial closure. We then closed the skin with running 3-0 nylon sutures. Sterile dressings, Kerlix wrap and an Florian bandage were placed. She tolerated the surgery well with no immediate complications. XOCHILT CHILD MD DR: PAULINE/susannah JOB#: [id number] / [id number]
[2018-10-21] MEDS: MORPHINE SULFATE 4 MG/ML VIAL. IV PRN ×3 (15:23→19:44)
[2018-10-21] MEDS: VANCOMYCIN PER PHARMACY MC PRN (16:25)
--- NOTE | 2018-10-21 19:30 | NUR ---
[facility] came by and spoke with patient about possibly discharging to their senior care. foot worker Josefina kuo
[2018-10-22 01:36] VITALS: BP 111/47
[2018-10-22] MEDS: HYDROcodone/APAP 5/325MG 1 TAB TABLET PO PRN ×2 (01:51→17:50)
[2018-10-22 03:00] VITALS: BP 114/31
[2018-10-22] MEDS: LEVOTHYROXINE 125 MCG TABLET PO SCH (06:01)
[2018-10-22 06:06] LABS: BASO % 0 % (0-3); EOS % 0 % (0-3); HEMATOCRIT 30.3 % (36.0-47.0); HEMOGLOBIN 10.1 g/dL (12.0-15.5); LYMPH # 0.6 x10^3/uL (1.0-4.8); LYMPH % 7 % (24-48); MEAN CORPUSCULAR HEMOGLOBIN 31 pg (25-35); MEAN CORPUSCULAR HGB CONC 33 g/dL (31-37); MEAN CORPUSCULAR VOLUME 92 fL (79-100); MONO # 0.3 x10^3/uL (0.0-1.1); MONO % 3 % (0-9); NEUT # 8.2 x10^3uL (1.8-7.7); NEUT % 90 % (31-73); PLATELET COUNT 106 x10^3/uL (140-400); RED BLOOD COUNT 3.28 x10^6/uL (3.50-5.40); RED CELL DISTRIBUTION WIDTH 16.9 % (11.5-14.5); WHITE BLOOD COUNT 9.2 x10^3/uL (4.0-11.0)
[2018-10-22] MEDS: PIPERACILLIN/TAZOBACTAM 2.25 GM in IV NORMAL SALINE 50ML 50 ML IV SCH (06:07)
[2018-10-22 06:26] LABS: ALBUMIN 1.7 g/dL (3.4-5.0); CALCIUM 8.1 mg/dL (8.5-10.1); CREATININE 4.4 mg/dL (0.6-1.0); GFR 9.9; PHOSPHORUS 7.7 mg/dL (2.6-4.7); POTASSIUM 4.6 mmol/L (3.5-5.1)
[2018-10-22 07:00] VITALS: BP 101/49
[2018-10-22 07:28] LABS: % ATYL 1 % (0-0); % LYMPHS 2 % (24-48); % METAS 1 % (0-0); % MONOS 1 % (0-10); % SEGS 95 % (35-66); PLT ESTIMATE ADEQUATE (ADEQUATE)
[2018-10-22] MEDS: NYSTATIN TOPICAL POWDER 15GM BOTTLE. TP SCH ×2 (08:04→20:39)
[2018-10-22] MEDS: DICLOFENAC SODIUM 1% TOPICAL GEL 100GM TUBE. TP SCH ×2 (08:04→20:40)
[2018-10-22] MEDS: SERTRALINE 50 MG TABLET. PO SCH (08:05)
[2018-10-22] MEDS: GABAPENTIN 100 MG CAPSULE. PO SCH (08:05)
[2018-10-22] MEDS: PANTOPRAZOLE 40 MG TABLET.DR. PO SCH (08:05)
[2018-10-22] MEDS: rifAXIMin 550 MG TABLET PO SCH ×2 (08:05→20:39)
[2018-10-22] MEDS: LACTOBACILLUS RHAMNOSUS GG 1 CAPSULE. PO SCH ×2 (08:05→20:39)
[2018-10-22] MEDS: SEVELAMER CARBONATE 800 MG TABLET. PO SCH ×3 (08:06→16:28)
[2018-10-22] MEDS: ASPIRIN ENTERIC COATED 325 MG TABLET.DR. PO SCH (08:06)
[2018-10-22] MEDS: ISOSORBIDE MONONITRATE ER 30 MG TAB.ER.24H PO SCH (08:06)
[2018-10-22] MEDS: cloNIDine HCL 0.2 MG TABLET PO SCH (08:06)
[2018-10-22] MEDS: LACTULOSE 20 GM/30 ML SOLUTION. PO SCH ×3 (08:07→20:39)
[2018-10-22] MEDS: METOPROLOL SUCC 24HR ER 25 MG TAB.ER.24H. PO SCH (08:07)
[2018-10-22] MEDS: INSULIN LISPRO 300 UNITS/3 ML INSULN.PEN. SQ SCH ×6 (08:14→16:28)
[2018-10-22] MEDS: INSULIN GLARGINE 300 UNITS/3 ML INSULN.PEN. SQ SCH (08:15)
--- NOTE | 2018-10-22 08:39 | PDOC ---
SURGICAL PROGRESS NOTE Subjective Pt with c/o RLE pain, eren diet Vital Signs Vital Signs Date Time Temp Pulse Resp B/P (MAP) Pulse Ox O2 Delivery O2 Flow Rate FiO2 10/22/18 08:07 49 114/31 10/22/18 08:00 Nasal Cannula 3.0 10/22/18 07:00 98.2 18 95 98.2 I&O Intake and Output 10/22/18 06:59 Intake Total 370 ml Output Total 95 ml Balance 275 ml Intake Oral 120 ml IV Total 250 ml Output Urine Total 10 ml Drainage Total 35 ml Estimated Blood Loss 50 ml # Voids 2 General: Alert, Oriented X3, Cooperative, No acute distress Abdomen: Soft, No tenderness Labs Laboratory Tests Test 10/20/18 12:08 10/20/18 17:17 10/20/18 21:50 10/21/18 03:00 Glucose (Fingerstick) 107 mg/dL (70-99) 142 mg/dL (70-99) 149 mg/dL (70-99) Clostridium difficile Toxin B Gene Negative (Negative) Test 10/21/18 06:00 10/21/18 07:40 10/21/18 11:56 10/21/18 14:21 White Blood Count 9.0 x10^3/uL (4.0-11.0) Red Blood Count 3.73 x10^6/uL (3.50-5.40) Hemoglobin 11.4 g/dL (12.0-15.5) Hematocrit 34.1 % (36.0-47.0) Mean Corpuscular Volume 92 fL (79-100) Mean Corpuscular Hemoglobin 31 pg (25-35) Mean Corpuscular Hemoglobin Concent 33 g/dL (31-37) Red Cell Distribution Width 16.4 % (11.5-14.5) Platelet Count 117 x10^3/uL (140-400) Neutrophils (%) (Auto) 76 % (31-73) Lymphocytes (%) (Auto) 11 % (24-48) Monocytes (%) (Auto) 10 % (0-9) Eosinophils (%) (Auto) 2 % (0-3) Basophils (%) (Auto) 1 % (0-3) Neutrophils # (Auto) 6.8 x10^3uL (1.8-7.7) Lymphocytes # (Auto) 1.0 x10^3/uL (1.0-4.8) Monocytes # (Auto) 0.9 x10^3/uL (0.0-1.1) Eosinophils # (Auto) 0.2 x10^3/uL (0.0-0.7) Basophils # (Auto) 0.1 x10^3/uL (0.0-0.2) Prothrombin Time 18.1 SEC (11.7-14.0) Prothromb Time International Ratio 1.5 (0.8-1.1) Sodium Level 140 mmol/L (136-145) Potassium Level 3.8 mmol/L (3.5-5.1) Chloride Level 99 mmol/L (98-107) Carbon Dioxide Level 28 mmol/L (21-32) Anion Gap 13 (6-14) Blood Urea Nitrogen 23 mg/dL (7-20) Creatinine 3.6 mg/dL (0.6-1.0) Estimated GFR (Cockcroft-Gault) 12.4 Glucose Level 121 mg/dL (70-99) Calcium Level 8.2 mg/dL (8.5-10.1) Phosphorus Level 4.7 mg/dL (2.6-4.7) Albumin 2.2 g/dL (3.4-5.0) Glucose (Fingerstick) 101 mg/dL (70-99) 114 mg/dL (70-99) 132 mg/dL (70-99) Test 10/21/18 16:38 10/21/18 20:30 10/22/18 05:25 10/22/18 07:14 Glucose (Fingerstick) 129 mg/dL (70-99) 131 mg/dL (70-99) 280 mg/dL (70-99) White Blood Count 9.2 x10^3/uL (4.0-11.0) Red Blood Count 3.28 x10^6/uL (3.50-5.40) Hemoglobin 10.1 g/dL (12.0-15.5) Hematocrit 30.3 % (36.0-47.0) Mean Corpuscular Volume 92 fL (79-100) Mean Corpuscular Hemoglobin 31 pg (25-35) Mean Corpuscular Hemoglobin Concent 33 g/dL (31-37) Red Cell Distribution Width 16.9 % (11.5-14.5) Platelet Count 106 x10^3/uL (140-400) Neutrophils (%) (Auto) 90 % (31-73) Lymphocytes (%) (Auto) 7 % (24-48) Monocytes (%) (Auto) 3 % (0-9) Eosinophils (%) (Auto) 0 % (0-3) Basophils (%) (Auto) 0 % (0-3) Neutrophils # (Auto) 8.2 x10^3uL (1.8-7.7) Lymphocytes # (Auto) 0.6 x10^3/uL (1.0-4.8) Monocytes # (Auto) 0.3 x10^3/uL (0.0-1.1) Eosinophils # (Auto) 0.0 x10^3/uL (0.0-0.7) Basophils # (Auto) 0.0 x10^3/uL (0.0-0.2) Segmented Neutrophils % 95 % (35-66) Lymphocytes % 2 % (24-48) Atypical Lymphocytes % (Manual) 1 % (0-0) Monocytes % 1 % (0-10) Metamyelocytes % 1 % (0-0) Platelet Estimate Adequate (ADEQUATE) Sodium Level 139 mmol/L (136-145) Potassium Level 4.6 mmol/L (3.5-5.1) Chloride Level 100 mmol/L (98-107) Carbon Dioxide Level 26 mmol/L (21-32) Anion Gap 13 (6-14) Blood Urea Nitrogen 32 mg/dL (7-20) Creatinine 4.4 mg/dL (0.6-1.0) Estimated GFR (Cockcroft-Gault) 9.9 Glucose Level 224 mg/dL (70-99) Calcium Level 8.1 mg/dL (8.5-10.1) Phosphorus Level 7.7 mg/dL (2.6-4.7) Albumin 1.7 g/dL (3.4-5.0) Laboratory Tests Test 10/21/18 11:56 10/21/18 14:21 10/21/18 16:38 10/21/18 20:30 Glucose (Fingerstick) 114 mg/dL (70-99) 132 mg/dL (70-99) 129 mg/dL (70-99) 131 mg/dL (70-99) Test 10/22/18 05:25 10/22/18 07:14 White Blood Count 9.2 x10^3/uL (4.0-11.0) Red Blood Count 3.28 x10^6/uL (3.50-5.40) Hemoglobin 10.1 g/dL (12.0-15.5) Hematocrit 30.3 % (36.0-47.0) Mean Corpuscular Volume 92 fL (79-100) Mean Corpuscular Hemoglobin 31 pg (25-35) Mean Corpuscular Hemoglobin Concent 33 g/dL (31-37) Red Cell Distribution Width 16.9 % (11.5-14.5) Platelet Count 106 x10^3/uL (140-400) Neutrophils (%) (Auto) 90 % (31-73) Lymphocytes (%) (Auto) 7 % (24-48) Monocytes (%) (Auto) 3 % (0-9) Eosinophils (%) (Auto) 0 % (0-3) Basophils (%) (Auto) 0 % (0-3) Neutrophils # (Auto) 8.2 x10^3uL (1.8-7.7) Lymphocytes # (Auto) 0.6 x10^3/uL (1.0-4.8) Monocytes # (Auto) 0.3 x10^3/uL (0.0-1.1) Eosinophils # (Auto) 0.0 x10^3/uL (0.0-0.7) Basophils # (Auto) 0.0 x10^3/uL (0.0-0.2) Segmented Neutrophils % 95 % (35-66) Lymphocytes % 2 % (24-48) Atypical Lymphocytes % (Manual) 1 % (0-0) Monocytes % 1 % (0-10) Metamyelocytes % 1 % (0-0) Platelet Estimate Adequate (ADEQUATE) Sodium Level 139 mmol/L (136-145) Potassium Level 4.6 mmol/L (3.5-5.1) Chloride Level 100 mmol/L (98-107) Carbon Dioxide Level 26 mmol/L (21-32) Anion Gap 13 (6-14) Blood Urea Nitrogen 32 mg/dL (7-20) Creatinine 4.4 mg/dL (0.6-1.0) Estimated GFR (Cockcroft-Gault) 9.9 Glucose Level 224 mg/dL (70-99) Calcium Level 8.1 mg/dL (8.5-10.1) Phosphorus Level 7.7 mg/dL (2.6-4.7) Albumin 1.7 g/dL (3.4-5.0) Glucose (Fingerstick) 280 mg/dL (70-99) Problem List Problems Medical Problems: (1) Cirrhosis of liver with ascites Status: Acute (2) Hyperglycemia Status: Acute (3) Open wound of right foot Status: Acute (4) UTI (urinary tract infection) Status: Acute Assessment/Plan panniculitis now s/p R BKA cont supportive care, no gen surg plans ARIC BALDERAS MD Oct 22, 2018 08:39
[2018-10-22] MEDS ORDERED: DIALYSIS PATIENT. MC PRN ×2 (10:15)
[2018-10-22] MEDS ORDERED: LIDOCAINE 1% PF 2 ML VIAL. ONE ×2 (10:16→10:30)
--- NOTE | 2018-10-22 10:36 | PDOC ---
PROGRESS NOTES Chief Complaint Chief Complaint Cirrhosis Foot ulcer ESRD on HD DM2 History of Present Illness History of Present Illness Ms. Douglass is a 73 year old female with severe right shoulder pain and abdominal pain. Her pain to her abdomen fluctuates, no quigley in stool, Also 10/10 right shoulder pain, she can barely move the arm due to pain. she was last dialyzed on Friday, and abd pain had fluctuated in the past few days prior to admit. 10/17: Seen by vascular for right foot, ID for h/o infection, nephro for ESRD, general surgery for panniculitis surgery not recommensed due to high risk with cirrhosis . Seen by ortho for shoulder pain. 10/18: Right foot very painful today. No BM. Abdomen swelling. Tolerated diet ok. Seen on dialysis. MRI shoulder resulted - Rotator cuff tendinosis. There does appear to be a small full-thickness rotator cuff tear of the supraspinatus tendon, and a probable mild subscapularis tendon tear. Mild subdeltoid bursal fluid or bursitis. 10/19 WOUND PROBES TO THE BONE may need amputation , risk of significant complications given cirrhosis Nondisplaced chip fracture at the medial base of the left second toe 10/20 pt is thinking about amputation, grand daughter encouraged 10/20 She foot pain RIGHT, NOT IMPROVED, breast pain all on the right from her fall. should undergo BKA of RLE. Labs reviewed. D/W nursing staff 10/21 DATE OF SURGERY: 10/21/2018 SURGEON: Xochilt Child M.D. FLIGHT TEACHER: Deanna Merino. 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 POSTOPERATIVE DIAGNOSES: Right foot infected gangrene and nonhealing wounds. OPERATION PERFORMED: Right [id number] amputation. BLOOD LOSS: 50 mL. ANESTHESIA USED: General anesthesia. 10/22 moderate post-op pain persists, pt somnolent albumin very low at 1.7 Plan: ortho FOLLOWING GI to see for cirrhosis Nephro to see for ESRD ID for history of MDRO infection - pseudomonas ct right foot 10/19 PERSONALLY REVIEWED IMAGES in my opinion amputation needed , wound unlikely to heal otherwise Vitals Vitals Vital Signs Date Time Temp Pulse Resp B/P (MAP) Pulse Ox O2 Delivery O2 Flow Rate FiO2 10/22/18 08:07 49 114/31 10/22/18 08:00 Nasal Cannula 3.0 10/22/18 07:00 98.2 18 95 98.2 Physical Exam Physical Exam GENERAL: Sitting on the side of the bed, alert, HEENT: Oral cavity, pharynx is dry. NECK: Supple. LUNGS: Decreased at bases. HEART: S1 and S2. ABDOMEN: Obese, soft EXTREMITIES: Without clubbing, cyanosis. Chronic changes lower extremities, trace edema, RUE-AVF unremarkable. Right foot bandaged. SKIN: No rash NEUROLOGIC: Alert, responds appropriately PIV ok General: Alert, Oriented X3, Cooperative, No acute distress, moderate distress Heart: Regular rate, Normal S1, Normal S2 Lungs: Clear Abdomen: Soft, No tenderness Extremities: No cyanosis, Other (the right shoulder is tender to palpation around the greater tuberosity and rotator cuff. The gross alignment is normal and there is no effusion or erythema. Passive range of motion is very limited, and was painful at the extremes, only about 40 forward flexion and 40 of abduction before it got quite painful and she said "I'm going to hit you if you continue". She has a pulsatile dialysis shunt in the right upper arm near the distal biceps, anterior humerus antecubital fossa region. The biceps tendon seems to be intact to resisted motion, and there does not seem to be pain or deformity at the elbow. Her distal sensation and motor function are preserved.) Skin: Other (right foot dressing with some sanguinous drainage) Labs LABS Laboratory Tests Test 10/21/18 11:56 10/21/18 14:21 10/21/18 16:38 10/21/18 20:30 Glucose (Fingerstick) 114 mg/dL (70-99) 132 mg/dL (70-99) 129 mg/dL (70-99) 131 mg/dL (70-99) Test 10/22/18 05:25 10/22/18 07:14 White Blood Count 9.2 x10^3/uL (4.0-11.0) Red Blood Count 3.28 x10^6/uL (3.50-5.40) Hemoglobin 10.1 g/dL (12.0-15.5) Hematocrit 30.3 % (36.0-47.0) Mean Corpuscular Volume 92 fL (79-100) Mean Corpuscular Hemoglobin 31 pg (25-35) Mean Corpuscular Hemoglobin Concent 33 g/dL (31-37) Red Cell Distribution Width 16.9 % (11.5-14.5) Platelet Count 106 x10^3/uL (140-400) Neutrophils (%) (Auto) 90 % (31-73) Lymphocytes (%) (Auto) 7 % (24-48) Monocytes (%) (Auto) 3 % (0-9) Eosinophils (%) (Auto) 0 % (0-3) Basophils (%) (Auto) 0 % (0-3) Neutrophils # (Auto) 8.2 x10^3uL (1.8-7.7) Lymphocytes # (Auto) 0.6 x10^3/uL (1.0-4.8) Monocytes # (Auto) 0.3 x10^3/uL (0.0-1.1) Eosinophils # (Auto) 0.0 x10^3/uL (0.0-0.7) Basophils # (Auto) 0.0 x10^3/uL (0.0-0.2) Segmented Neutrophils % 95 % (35-66) Lymphocytes % 2 % (24-48) Atypical Lymphocytes % (Manual) 1 % (0-0) Monocytes % 1 % (0-10) Metamyelocytes % 1 % (0-0) Platelet Estimate Adequate (ADEQUATE) Sodium Level 139 mmol/L (136-145) Potassium Level 4.6 mmol/L (3.5-5.1) Chloride Level 100 mmol/L (98-107) Carbon Dioxide Level 26 mmol/L (21-32) Anion Gap 13 (6-14) Blood Urea Nitrogen 32 mg/dL (7-20) Creatinine 4.4 mg/dL (0.6-1.0) Estimated GFR (Cockcroft-Gault) 9.9 Glucose Level 224 mg/dL (70-99) Calcium Level 8.1 mg/dL (8.5-10.1) Phosphorus Level 7.7 mg/dL (2.6-4.7) Albumin 1.7 g/dL (3.4-5.0) Glucose (Fingerstick) 280 mg/dL (70-99) Assessment and Plan Assessmemt and Plan Problems Medical Problems: (1) Cirrhosis of liver with ascites Status: Acute (2) Hyperglycemia Status: Acute (3) Open wound of right foot Status: Acute (4) UTI (urinary tract infection) Status: Acute Comment Review of Relevant I have reviewed the following items karyn (where applicable) has been applied. Labs Laboratory Tests Test 10/20/18 12:08 10/20/18 17:17 10/20/18 21:50 10/21/18 03:00 Glucose (Fingerstick) 107 mg/dL (70-99) 142 mg/dL (70-99) 149 mg/dL (70-99) Clostridium difficile Toxin B Gene Negative (Negative) Test 10/21/18 06:00 10/21/18 07:40 10/21/18 11:56 10/21/18 14:21 White Blood Count 9.0 x10^3/uL (4.0-11.0) Red Blood Count 3.73 x10^6/uL (3.50-5.40) Hemoglobin 11.4 g/dL (12.0-15.5) Hematocrit 34.1 % (36.0-47.0) Mean Corpuscular Volume 92 fL (79-100) Mean Corpuscular Hemoglobin 31 pg (25-35) Mean Corpuscular Hemoglobin Concent 33 g/dL (31-37) Red Cell Distribution Width 16.4 % (11.5-14.5) Platelet Count 117 x10^3/uL (140-400) Neutrophils (%) (Auto) 76 % (31-73) Lymphocytes (%) (Auto) 11 % (24-48) Monocytes (%) (Auto) 10 % (0-9) Eosinophils (%) (Auto) 2 % (0-3) Basophils (%) (Auto) 1 % (0-3) Neutrophils # (Auto) 6.8 x10^3uL (1.8-7.7) Lymphocytes # (Auto) 1.0 x10^3/uL (1.0-4.8) Monocytes # (Auto) 0.9 x10^3/uL (0.0-1.1) Eosinophils # (Auto) 0.2 x10^3/uL (0.0-0.7) Basophils # (Auto) 0.1 x10^3/uL (0.0-0.2) Prothrombin Time 18.1 SEC (11.7-14.0) Prothromb Time International Ratio 1.5 (0.8-1.1) Sodium Level 140 mmol/L (136-145) Potassium Level 3.8 mmol/L (3.5-5.1) Chloride Level 99 mmol/L (98-107) Carbon Dioxide Level 28 mmol/L (21-32) Anion Gap 13 (6-14) Blood Urea Nitrogen 23 mg/dL (7-20) Creatinine 3.6 mg/dL (0.6-1.0) Estimated GFR (Cockcroft-Gault) 12.4 Glucose Level 121 mg/dL (70-99) Calcium Level 8.2 mg/dL (8.5-10.1) Phosphorus Level 4.7 mg/dL (2.6-4.7) Albumin 2.2 g/dL (3.4-5.0) Glucose (Fingerstick) 101 mg/dL (70-99) 114 mg/dL (70-99) 132 mg/dL (70-99) Test 10/21/18 16:38 10/21/18 20:30 10/22/18 05:25 10/22/18 07:14 Glucose (Fingerstick) 129 mg/dL (70-99) 131 mg/dL (70-99) 280 mg/dL (70-99) White Blood Count 9.2 x10^3/uL (4.0-11.0) Red Blood Count 3.28 x10^6/uL (3.50-5.40) Hemoglobin 10.1 g/dL (12.0-15.5) Hematocrit 30.3 % (36.0-47.0) Mean Corpuscular Volume 92 fL (79-100) Mean Corpuscular Hemoglobin 31 pg (25-35) Mean Corpuscular Hemoglobin Concent 33 g/dL (31-37) Red Cell Distribution Width 16.9 % (11.5-14.5) Platelet Count 106 x10^3/uL (140-400) Neutrophils (%) (Auto) 90 % (31-73) Lymphocytes (%) (Auto) 7 % (24-48) Monocytes (%) (Auto) 3 % (0-9) Eosinophils (%) (Auto) 0 % (0-3) Basophils (%) (Auto) 0 % (0-3) Neutrophils # (Auto) 8.2 x10^3uL (1.8-7.7) Lymphocytes # (Auto) 0.6 x10^3/uL (1.0-4.8) Monocytes # (Auto) 0.3 x10^3/uL (0.0-1.1) Eosinophils # (Auto) 0.0 x10^3/uL (0.0-0.7) Basophils # (Auto) 0.0 x10^3/uL (0.0-0.2) Segmented Neutrophils % 95 % (35-66) Lymphocytes % 2 % (24-48) Atypical Lymphocytes % (Manual) 1 % (0-0) Monocytes % 1 % (0-10) Metamyelocytes % 1 % (0-0) Platelet Estimate Adequate (ADEQUATE) Sodium Level 139 mmol/L (136-145) Potassium Level 4.6 mmol/L (3.5-5.1) Chloride Level 100 mmol/L (98-107) Carbon Dioxide Level 26 mmol/L (21-32) Anion Gap 13 (6-14) Blood Urea Nitrogen 32 mg/dL (7-20) Creatinine 4.4 mg/dL (0.6-1.0) Estimated GFR (Cockcroft-Gault) 9.9 Glucose Level 224 mg/dL (70-99) Calcium Level 8.1 mg/dL (8.5-10.1) Phosphorus Level 7.7 mg/dL (2.6-4.7) Albumin 1.7 g/dL (3.4-5.0) Laboratory Tests Test 10/21/18 11:56 10/21/18 14:21 10/21/18 16:38 10/21/18 20:30 Glucose (Fingerstick) 114 mg/dL (70-99) 132 mg/dL (70-99) 129 mg/dL (70-99) 131 mg/dL (70-99) Test 10/22/18 05:25 10/22/18 07:14 White Blood Count 9.2 x10^3/uL (4.0-11.0) Red Blood Count 3.28 x10^6/uL (3.50-5.40) Hemoglobin 10.1 g/dL (12.0-15.5) Hematocrit 30.3 % (36.0-47.0) Mean Corpuscular Volume 92 fL (79-100) Mean Corpuscular Hemoglobin 31 pg (25-35) Mean Corpuscular Hemoglobin Concent 33 g/dL (31-37) Red Cell Distribution Width 16.9 % (11.5-14.5) Platelet Count 106 x10^3/uL (140-400) Neutrophils (%) (Auto) 90 % (31-73) Lymphocytes (%) (Auto) 7 % (24-48) Monocytes (%) (Auto) 3 % (0-9) Eosinophils (%) (Auto) 0 % (0-3) Basophils (%) (Auto) 0 % (0-3) Neutrophils # (Auto) 8.2 x10^3uL (1.8-7.7) Lymphocytes # (Auto) 0.6 x10^3/uL (1.0-4.8) Monocytes # (Auto) 0.3 x10^3/uL (0.0-1.1) Eosinophils # (Auto) 0.0 x10^3/uL (0.0-0.7) Basophils # (Auto) 0.0 x10^3/uL (0.0-0.2) Segmented Neutrophils % 95 % (35-66) Lymphocytes % 2 % (24-48) Atypical Lymphocytes % (Manual) 1 % (0-0) Monocytes % 1 % (0-10) Metamyelocytes % 1 % (0-0) Platelet Estimate Adequate (ADEQUATE) Sodium Level 139 mmol/L (136-145) Potassium Level 4.6 mmol/L (3.5-5.1) Chloride Level 100 mmol/L (98-107) Carbon Dioxide Level 26 mmol/L (21-32) Anion Gap 13 (6-14) Blood Urea Nitrogen 32 mg/dL (7-20) Creatinine 4.4 mg/dL (0.6-1.0) Estimated GFR (Cockcroft-Gault) 9.9 Glucose Level 224 mg/dL (70-99) Calcium Level 8.1 mg/dL (8.5-10.1) Phosphorus Level 7.7 mg/dL (2.6-4.7) Albumin 1.7 g/dL (3.4-5.0) Glucose (Fingerstick) 280 mg/dL (70-99) Microbiology 10/15/18 Urine Culture - Final, Complete 10/15/18 Urine Culture Result 1 (DARIN) - Final, Complete Medications Current Medications Morphine Sulfate (Morphine Sulfate) 4 mg PRN Q15MIN PRN IV/SQ PAIN GREATER THAN 3/10 Last administered on 10/15/18at 18:50; Start 10/15/18 at 14:15; Stop at 14:14; Status DC Insulin Human Regular (HumuLIN R VIAL) 10 unit 1X ONCE IV ; Start 10/15/18 at 16:45; Stop 10/15/18 at 16:46; Status Cancel Insulin Human Regular (HumuLIN R VIAL) 5 unit 1X ONCE IV Last administered on 10/15/18at 17:04; Start 10/15/18 at 17:15; Stop 10/15/18 at 17:16; Status DC Ondansetron HCl (Zofran) 4 mg PRN Q8HRS PRN IV NAUSEA/VOMITING; Start 10/15/18 at 19:15; Stop 10/16/18 at 19:14; Status DC Morphine Sulfate (Morphine Sulfate) 4 mg PRN Q2HR PRN IV PAIN; Start 10/15/18 at 19:15; Stop 10/16/18 at 19:14; Status DC Insulin Human Lispro (HumaLOG) 0-7 UNITS TIDWMEALS SQ Last administered on 10/22at 08:14; Start 10/16/18 at 08:00 Dextrose (Dextrose 50%-Water Syringe) 12.5 gm PRN Q15MIN PRN IV SEE COMMENTS; Start 10/15/18 at 19:15 Ceftriaxone Sodium (Rocephin) 1 gm Q24H IVP Last administered on 10/15/18at 22: 27; Start 10/15/18 at 20:00; Stop 10/16/18 at 10:39; Status DC Zolpidem Tartrate (Ambien) 5 mg PRN QHS PRN PO INSOMNIA Last administered on at 22:27; Start 10/15/18 at 22:15; Stop 10/16/18 at 22:30; Status DC Aspirin (Ecotrin) 325 mg DAILYWBKFT PO Last administered on 10/22/18at 08:06; Start 10/16/18 at 10:00 Clonidine HCl (Catapres) 0.2 mg DAILY PO Last administered on 10/21/18at 09:01; Start 10/16/18 at 09:00 Diclofenac Sodium (Voltaren) 1 ronel BID TP Last administered on 10/22/18 08:04 ; Start 10/16/18 at 09:00 Famotidine (Pepcid) 20 mg QODAY PO ; Start 10/16/18 at 09:00; Stop 10/16/18 at 09:35; Status DC Gabapentin (Neurontin) 100 mg DAILY PO Last administered on 10/22/18 08:05; Start 10/16/18 at 09:00 Acetaminophen/ Hydrocodone Bitart (Lortab 5/325) 2 tab PRN Q6HRS PRN PO PAIN Last administered on 10/22/18 01:51; Start 10/16/18 at 08:30 Insulin Glargine (Lantus) 15 units DAILY SQ Last administered on 10/22/18 08: 15; Start 10/16/18 at 09:00 Insulin Human Lispro (HumaLOG) 5 units TIDWMEALS SQ Last administered on 08:14; Start 10/16/18 at 12:00 Lactobacillus Rhamnosus (Culturelle) 1 cap BID PO Last administered on 08:05; Start 10/16/18 at 09:00 Lactulose (Lactulose) 10 gm PRN TID PRN PO CONSTIPATION; Start 10/16/18 at 08: 30; Stop 10/16/18 at 09:35; Status DC Levothyroxine Sodium (Synthroid) 125 mcg DAILY06 PO Last administered on 06:01; Start 10/16/18 at 09:00 Metoprolol Succinate (Toprol Xl) 25 mg DAILY PO Last administered on 10/21/18 09:02; Start 10/16/18 at 09:00 Rifaximin (Xifaxan) 550 mg BID PO Last administered on 10/16/18at 13:40; Start 10/16/18 at 09:00; Stop 10/16/18 at 16:03; Status DC Sertraline HCl (Zoloft) 75 mg DAILY PO Last administered on 10/22/18 08:05; Start 10/16/18 at 09:00 Sevelamer Carbonate (Renvela) 800 mg TIDWMEALS PO Last administered on 08:06; Start 10/16/18 at 12:00 Isosorbide Mononitrate (Imdur) 30 mg DAILY PO Last administered on 10/21/18 09 :01; Start 10/16/18 at 09:00 Lactulose (Lactulose) 10 gm TID PO Last administered on 10/19/18at 21:07; Start 10/16/18 at 14:00 Rifaximin (Xifaxan) 550 mg Q12HR PO Last administered on 10/22/18 08:05; Start 10/16/18 at 10:00 Pantoprazole Sodium (Protonix) 40 mg DAILYAC PO Last administered on 10/22/18 08:05; Start 10/16/18 at 10:00 Piperacillin Sod/ Tazobactam Sod 2.25 gm/Sodium Chloride 50 ml @ 100 mls/hr Q8HRS IV Last administered on 10/22/18 06:07; Start 10/16/18 at 11:00 Vancomycin HCl (Vanco Per Pharmacy) 1 each PRN DAILY PRN MC SEE COMMENTS Last administered on 10/21/18at 16:25; Start 10/16/18 at 10:45 Vancomycin HCl 1.75 gm/Sodium Chloride 500 ml @ 250 mls/hr 1X ONCE IV Last administered on 10/16/18 15:24; Start 10/16/18 at 11:00; Stop 10/16/18 at 12:59 ; Status DC Vancomycin HCl (Vancomycin Random Level) 1 each 1X ONCE MC Last administered on 10/17/18at 05:05; Start 10/17/18 at 06:00; Stop 10/17/18 at 06:01; Status DC Iohexol (Omnipaque 350 Mg/ml) 100 ml 1X ONCE IV ; Start 10/16/18 at 17:15; Stop 10/16/18 at 17:16; Status DC Info (CONTRAST GIVEN -- Rx MONITORING) 1 each PRN DAILY PRN MC SEE COMMENTS; Start 10/16/18 at 17:30; Stop 10/18/18 at 17:29; Status DC Nystatin (Nystop) 1 ronel BID TP Last administered on 10/19/18at 09:05; Start at 21:30 Temazepam (Restoril) 7.5 mg PRN QHS PRN PO INSOMNIA Last administered on 2/27/ 19at 00:43; Start 10/16/18 at 22:30 Sodium Chloride 1,000 ml @ 1,000 mls/hr Q1H PRN IV hypotension; Start 10/17/18 at 09:28; Stop 10/17/18 at 15:27; Status DC Albumin Human 200 ml @ 200 mls/hr 1X PRN PRN IV Hypotension; Start 10/17/18 at 09:30; Stop 10/17/18 at 15:29; Status DC Sodium Chloride 1,000 ml @ 400 mls/hr Q2H30M PRN IV PATENCY; Start 10/17/18 at 09:28; Stop 10/17/18 at 21:27; Status DC Info (PHARMACY MONITORING -- do not chart) 1 each PRN DAILY PRN MC SEE COMMENTS ; Start 10/17/18 at 09:30; Stop 10/17/18 at 09:34; Status DC Info (PHARMACY MONITORING -- do not chart) 1 each PRN DAILY PRN MC SEE COMMENTS ; Start 10/17/18 at 09:30 Vancomycin HCl 500 mg/Sodium Chloride 100 ml @ 100 mls/hr QTUTHSA IV Last administered on 10/20/18at 20:59; Start 10/17/18 at 16:00 Sodium Chloride 250 ml @ 0 mls/hr 1X PRN PRN IV SBP <= 80; Start 10/18/18 at 12 :30 Methylprednisolone Acetate (DEPO-Medrol 40MG VIAL) 40 mg 1X ONCE IM Last administered on 10/18/18at 14:40; Start 10/18/18 at 13:45; Stop 10/18/18 at 13:46 ; Status DC Bupivacaine HCl (Sensorcaine-Mpf 0.25%) 10 ml 1X ONCE IJ Last administered on 10/18/18at 14:40; Start 10/18/18 at 13:45; Stop 10/18/18 at 13:46; Status DC Lorazepam (Ativan) 0.5 mg PRN Q8HRS PRN PO ANXIETY / AGITATION 1ST CHOICE Last administered on 10/21/18at 05:07; Start 10/19/18 at 13:15 Alprazolam (Xanax) 0.25 mg PRN Q8HRS PRN PO ANXIETY / AGITATION 2ND CHOICE; Start 10/19/18 at 13:30 Sodium Chloride 1,000 ml @ 1,000 mls/hr Q1H PRN IV hypotension; Start 10/20/18 at 08:29; Stop 10/20/18 at 14:28; Status DC Sodium Chloride 1,000 ml @ 400 mls/hr Q2H30M PRN IV PATENCY; Start 10/20/18 at 08:29; Stop 10/20/18 at 20:30; Status DC Info (PHARMACY MONITORING -- do not chart) 1 each PRN DAILY PRN MC SEE COMMENTS ; Start 10/20/18 at 08:30; Status UNV Info (PHARMACY MONITORING -- do not chart) 1 each PRN DAILY PRN MC SEE COMMENTS ; Start 10/20/18 at 08:30; Status UNV Lidocaine HCl (Lidocaine 1% 20ml Vial) 20 ml 1X ONCE INJ ; Start 10/20/18 at 08 :45; Stop 10/20/18 at 08:46; Status DC Lidocaine HCl (Xylocaine-Mpf 1% 2ml Vial) 2 ml STK-MED ONCE .ROUTE ; Start 10/20 at 08:55; Stop 10/20/18 at 08:56; Status DC Ondansetron HCl (Zofran) 4 mg PRN Q6HRS PRN IV NAUSEA/VOMITING Last administered on 10/20/18at 21:00; Start 10/20/18 at 16:30 Fentanyl Citrate (Fentanyl 2ml Vial) 25 mcg PRN Q5MIN PRN IV MILD PAIN; Start 10/21/18 at 07:00; Stop 10/22/18 at 06:59; Status DC Fentanyl Citrate (Fentanyl 2ml Vial) 50 mcg PRN Q5MIN PRN IV MODERATE TO SEVERE PAIN Last administered on 10/21/18at 14:51; Start 10/21/18 at 07:00; Stop 10/22/18 at 06:59; Status DC Morphine Sulfate (Morphine Sulfate) 1 mg PRN Q10MIN PRN IV SEVERE PAIN; Start 10/21/18 at 07:00; Stop 10/21/18 at 14:26; Status DC Hydromorphone HCl (Dilaudid) 0.5 mg PRN Q10MIN PRN IV SEV PAIN, Second choice; Start 10/21/18 at 07:00; Stop 10/22/18 at 06:59; Status DC Prochlorperazine Edisylate (Compazine) 5 mg PACU PRN PRN IV NAUSEA, MRX1; Start 10/21/18 at 07:00; Stop 10/22/18 at 06:59; Status DC Sodium Chloride 1,000 ml @ 0 mls/hr Q0M IV ; Start 10/21/18 at 07:00 Fentanyl Citrate (Fentanyl 2ml Vial) 100 mcg STK-MED ONCE .ROUTE ; Start at 11:41; Stop 10/21/18 at 11:42; Status DC Ketamine HCl (Ketamine) 50 mg STK-MED ONCE .ROUTE ; Start 10/21/18 at 11:41; Stop 10/21/18 at 11:42; Status DC Sevoflurane (Ultane) 60 ml STK-MED ONCE IH ; Start 10/21/18 at 11:41; Stop 10/21 at 11:42; Status DC Propofol 20 ml @ As Directed STK-MED ONCE IV ; Start 10/21/18 at 11:41; Stop at 11:42; Status DC Dexamethasone Sodium Phosphate (Decadron) 20 mg STK-MED ONCE .ROUTE ; Start at 11:41; Stop 10/21/18 at 11:42; Status DC Ondansetron HCl (Zofran) 4 mg STK-MED ONCE .ROUTE ; Start 10/21/18 at 11:41; Stop 10/21/18 at 11:42; Status DC Lidocaine HCl (Lidocaine Pf 2% Vial) 5 ml STK-MED ONCE .ROUTE ; Start 10/21/18 at 11:41; Stop 10/21/18 at 11:42; Status DC Phenylephrine HCl (Taran-Synephrine Inj) 10 mg STK-MED ONCE .ROUTE ; Start at 11:43; Stop 10/21/18 at 11:44; Status DC Bacitracin 94356 unit/Sodium Chloride 500 ml @ 500 mls/hr 1X ONCE IRR Last administered on 10/21/18at 13:26; Start 10/21/18 at 12:43; Stop 10/21/18 at 13:42 ; Status DC Ephedrine Sulfate (Akovaz) 50 mg STK-MED ONCE .ROUTE ; Start 10/21/18 at 13:05; Stop 10/21/18 at 13:06; Status DC Morphine Sulfate (Morphine Sulfate) 2 mg PRN Q2HR PRN IV PAIN Last administered on 10/21/18at 19:44; Start 10/21/18 at 14:15 Fentanyl Citrate (Fentanyl 2ml Vial) 100 mcg STK-MED ONCE .ROUTE ; Start at 14:23; Stop 10/21/18 at 14:24; Status DC Fentanyl Citrate (Fentanyl 2ml Vial) 100 mcg STK-MED ONCE .ROUTE ; Start at 14:49; Stop 10/21/18 at 14:50; Status DC Lidocaine HCl (Xylocaine-Mpf 1% 2ml Vial) 2 ml STK-MED ONCE .ROUTE ; Start 10/20 at 09:00; Stop 10/22/18 at 09:09; Status DC Info (PHARMACY MONITORING -- do not chart) 1 each PRN DAILY PRN MC SEE COMMENTS ; Start 10/22/18 at 10:15; Status UNV Info (PHARMACY MONITORING -- do not chart) 1 each PRN DAILY PRN MC SEE COMMENTS ; Start 10/22/18 at 10:15; Status UNV Lidocaine HCl (Xylocaine-Mpf 1% 2ml Vial) 2 ml STK-MED ONCE .ROUTE ; Start 10/22 at 10:16; Stop 10/22/18 at 10:17; Status DC Active Scripts Active Zofran (Ondansetron Hcl) 4 Mg Tablet 1 Tab PO Q6HRS Cephalexin 500 Mg Tablet 1 Tab PO BID Humalog (Insulin Lispro) 100 Unit/1 Ml Insuln.pen 5 Units SQ TIDWMEALS 28 Days Culturelle (Lactobacillus Rhamnosus Gg) 1 Each Cap.sprink 1 Cap PO BID 28 Days Lantus Solostar (Insulin Glargine,Hum.rec.anlog) 100 Unit/1 Ml Insuln.pen 15 Units SQ DAILY 28 Days Cipro (Ciprofloxacin Hcl) 250 Mg Tablet 250 Mg PO DAILY 10 Days Lactulose 20 Gm/30 Ml Solution 10 Gm PO PRN TID PRN 10 Days Aspirin Ec (Aspirin) 325 Mg Tablet.dr 325 Mg PO DAILYWBKFT 30 Days Reported Calcium Acetate 667 Mg Tablet 667 Mg PO BID Calcium Acetate 667 Mg Tablet 1,334 Mg PO TIDWMEALS Vitamin D (Cholecalciferol (Vitamin D3)) 50,000 Unit Capsule 50,000 Unit PO DAILY Tizanidine Hcl 2 Mg Capsule 2 Mg PO BID PRN Meclizine Hcl 25 Mg Tablet 1 Tab PO TID Voltaren (Diclofenac Sodium) 100 Gm Gel..gram. 1 Gm TP BID Hydrocodone-Apap 5-325 (Hydrocodone Bit/Acetaminophen) 1 Each Tablet 2 Tab PO PRN Q6HRS PRN Clonidine Hcl 0.2 Mg Tablet 0.2 Mg PO DAILY Gabapentin (Gabapentin) 100 Mg Capsule 100 Mg PO DAILY Zoloft (Sertraline Hcl) 50 Mg Tablet 75 Mg PO DAILY Renvela (Sevelamer Carbonate) 800 Mg Tablet 1 Tab PO TIDWMEALS Levothyroxine Sodium 175 Mcg Tablet 125 Mcg PO DAILYAC Dialyvite Gerton D Tablet (Multivitamin, Min Cmb#25/Fa/D3) 1 Each Tablet 1 Each PO DAILY Metoprolol Succinate ( Xl ) (Metoprolol Succinate) 25 Mg Tab.er.24h 25 Mg PO DAILY Ondansetron Hcl 4 Mg Tablet 4 Mg PO Q6HRS PRN Zolpidem Tartrate 5 Mg Tablet 5 Mg PO PRN QHS PRN Famotidine 20 Mg Tablet 20 Mg PO DAILY Xifaxan (Rifaximin) 550 Mg Tablet 1 Tab PO BID Isosorbide Dinitrate 30 Mg Tablet 1 Tab PO DAILY Vitals/I & O Vital Sign - Last 24 Hours 10/21/18 10/21/18 10/21/18 10/21/18 11:01 12:05 14:15 14:15 Temp 97.3 97.3 98.0 97.3 97.3 98.0 Pulse 59 59 67 Resp 20 16 16 B/P (MAP) 147/53 (84) 112/57 129/51 Pulse Ox 96 100 98 O2 Delivery Room Air Room Air Room Air Simple Mask O2 Flow Rate 2 2 10 10/21/18 10/21/18 10/21/18 10/21/18 14:26 14:30 14:42 14:45 Temp 98.0 98.0 98.0 98.0 Pulse 68 69 Resp 16 12 16 15 B/P (MAP) 133/43 113/45 Pulse Ox 100 93 98 98 O2 Delivery Room Air Nasal Cannula Room Air Nasal Cannula O2 Flow Rate 2.0 2.0 2.0 10/21/18 10/21/18 10/21/1810/21/19 14:51 15:00 15:00 15:15 Temp 98.0 98.1 98.0 98.1 Pulse 68 65 Resp 15 15 16 B/P (MAP) 114/50 123/46 (71) 130/40 (70) Pulse Ox 98 100 100 O2 Delivery Room Air Nasal Cannula Nasal Cannula Nasal Cannula O2 Flow Rate 2.0 2.0 2.0 10/21/18 10/21/18 10/21/18 10/21/18 15:23 15:30 15:45 16:30 Temp 97.3 97.3 Pulse 61 Resp 18 B/P (MAP) 133/61 (85) 124/43 (70) 118/46 (70) Pulse Ox 99 O2 Delivery Nasal Cannula Nasal Cannula Nasal Cannula Nasal Cannula O2 Flow Rate 2.0 10/21/18 10/21/18 10/21/18 10/21/18 17:26 17:30 19:00 19:44 Temp 98.0 98.1 98.0 98.1 Pulse 63 61 Resp 18 16 14 B/P (MAP) 120/78 (92) 109/45 (66) Pulse Ox 98 97 98 O2 Delivery Nasal Cannula Nasal Cannula Nasal Cannula Room Air O2 Flow Rate 2.0 2.0 2.0 3.0 10/21/18 10/21/18 10/21/18 10/22/18 20:00 20:32 23:00 01:36 Temp 98.2 98.2 Pulse 47 72 Resp 16 18 B/P (MAP) 110/38 (62) 111/47 (68) Pulse Ox 98 96 O2 Delivery Nasal Cannula Nasal Cannula Room Air O2 Flow Rate 3.0 3.0 10/22/18 10/22/18 10/22/18 10/22/18 01:51 03:00 03:00 07:00 Temp 98.1 98.2 98.1 98.2 Pulse 49 69 Resp 16 16 17 18 B/P (MAP) 114/31 (58) 101/49 (66) Pulse Ox 96 97 97 95 O2 Delivery Room Air Room Air Room Air Room Air 10/22/18 10/22/18 10/22/18 10/22/18 08:00 08:06 08:06 08:07 Pulse 49 49 49 B/P (MAP) 114/31 114/31 114/31 O2 Delivery Nasal Cannula O2 Flow Rate 3.0 Intake and Output 10/21/18 10/21/18 10/22/18 14:59 22:59 06:59 Intake Total 250 ml 120 ml Output Total 60 ml 35 ml Balance 190 ml 120 ml -35 ml FEROZ KELLY MD Oct 22, 2018 10:36
--- NOTE | 2018-10-22 10:50 | PDOC ---
Objective: Objective: Reviewed w/ RN - still "foggy" after surgery but tolerating PO. Refuses lactulose. 2 stools charted yesterday. Vital Signs: Vital Signs Date Time Temp Pulse Resp B/P (MAP) Pulse Ox O2 Delivery O2 Flow Rate FiO2 10/22/18 08:07 49 114/31 10/22/18 08:00 Nasal Cannula 3.0 10/22/18 07:00 98.2 18 95 98.2 Labs: Laboratory Tests Test 10/21/18 11:56 10/21/18 14:21 10/21/18 16:38 10/21/18 20:30 Glucose (Fingerstick) 114 mg/dL 132 mg/dL 129 mg/dL 131 mg/dL Test 10/22/18 05:25 10/22/18 07:14 White Blood Count 9.2 x10^3/uL Red Blood Count 3.28 x10^6/uL Hemoglobin 10.1 g/dL Hematocrit 30.3 % Mean Corpuscular Volume 92 fL Mean Corpuscular Hemoglobin 31 pg Mean Corpuscular Hemoglobin Concent 33 g/dL Red Cell Distribution Width 16.9 % Platelet Count 106 x10^3/uL Neutrophils (%) (Auto) 90 % Lymphocytes (%) (Auto) 7 % Monocytes (%) (Auto) 3 % Eosinophils (%) (Auto) 0 % Basophils (%) (Auto) 0 % Neutrophils # (Auto) 8.2 x10^3uL Lymphocytes # (Auto) 0.6 x10^3/uL Monocytes # (Auto) 0.3 x10^3/uL Eosinophils # (Auto) 0.0 x10^3/uL Basophils # (Auto) 0.0 x10^3/uL Segmented Neutrophils % 95 % Lymphocytes % 2 % Atypical Lymphocytes % (Manual) 1 % Monocytes % 1 % Metamyelocytes % 1 % Platelet Estimate Adequate Sodium Level 139 mmol/L Potassium Level 4.6 mmol/L Chloride Level 100 mmol/L Carbon Dioxide Level 26 mmol/L Anion Gap 13 Blood Urea Nitrogen 32 mg/dL Creatinine 4.4 mg/dL Estimated GFR (Cockcroft-Gault) 9.9 Glucose Level 224 mg/dL Calcium Level 8.1 mg/dL Phosphorus Level 7.7 mg/dL Albumin 1.7 g/dL Glucose (Fingerstick) 280 mg/dL PE: GEN: NAD LUNGS: room air NEURO/PSYCH: sleeping, not awakened A/P: S/p RBKA, panniculitis ESRD, ACD, cirrhosis, hypoalbuminemia -- Continue support per GI. BRENDA DONOVAN Oct 22, 2018 10:50
--- NOTE | 2018-10-22 10:52 | PDOC ---
Provider Note Provider Note Pt seen in her hospital bed POD #1 R BKA She c/o some incisional pain, denies any SOB or CP VSS right BKA stump dressing c/d/i no bleed-through on dressing IFEOMA drain with moderate output --> will leave in place one more day Needs to be up to chair today work on IS anticipate here for 3 to 4 days post-op then to rehab likely MADIE PERDUE MD Oct 22, 2018 10:52
[2018-10-22 11:04] VITALS: BP 104/46
--- NOTE | 2018-10-22 11:20 | PDOC ---
Infectious Disease Note Subjective Subjective feeling good ROS ROS no n/v/d/sob Vital Sign Vital Signs Vital Signs Date Time Temp Pulse Resp B/P (MAP) Pulse Ox O2 Delivery O2 Flow Rate FiO2 10/22/18 11:04 97.8 71 20 104/46 (65) 96 Room Air 97.8 10/22/18 08:00 3.0 Physical Exam PHYSICAL EXAM GENERAL: Sitting on the side of the bed, alert, HEENT: Oral cavity, pharynx is dry. NECK: Supple. LUNGS: Decreased at bases. HEART: S1 and S2. ABDOMEN: Obese, soft EXTREMITIES: Without clubbing, cyanosis. Chronic changes lower extremities, trace edema, RUE-AVF unremarkable. Right BKA SKIN: No rash NEUROLOGIC: Alert, responds appropriately PIV ok Labs Lab Laboratory Tests Test 10/21/18 11:56 10/21/18 14:21 10/21/18 16:38 10/21/18 20:30 Glucose (Fingerstick) 114 mg/dL (70-99) 132 mg/dL (70-99) 129 mg/dL (70-99) 131 mg/dL (70-99) Test 10/22/18 05:25 10/22/18 07:14 White Blood Count 9.2 x10^3/uL (4.0-11.0) Red Blood Count 3.28 x10^6/uL (3.50-5.40) Hemoglobin 10.1 g/dL (12.0-15.5) Hematocrit 30.3 % (36.0-47.0) Mean Corpuscular Volume 92 fL (79-100) Mean Corpuscular Hemoglobin 31 pg (25-35) Mean Corpuscular Hemoglobin Concent 33 g/dL (31-37) Red Cell Distribution Width 16.9 % (11.5-14.5) Platelet Count 106 x10^3/uL (140-400) Neutrophils (%) (Auto) 90 % (31-73) Lymphocytes (%) (Auto) 7 % (24-48) Monocytes (%) (Auto) 3 % (0-9) Eosinophils (%) (Auto) 0 % (0-3) Basophils (%) (Auto) 0 % (0-3) Neutrophils # (Auto) 8.2 x10^3uL (1.8-7.7) Lymphocytes # (Auto) 0.6 x10^3/uL (1.0-4.8) Monocytes # (Auto) 0.3 x10^3/uL (0.0-1.1) Eosinophils # (Auto) 0.0 x10^3/uL (0.0-0.7) Basophils # (Auto) 0.0 x10^3/uL (0.0-0.2) Segmented Neutrophils % 95 % (35-66) Lymphocytes % 2 % (24-48) Atypical Lymphocytes % (Manual) 1 % (0-0) Monocytes % 1 % (0-10) Metamyelocytes % 1 % (0-0) Platelet Estimate Adequate (ADEQUATE) Sodium Level 139 mmol/L (136-145) Potassium Level 4.6 mmol/L (3.5-5.1) Chloride Level 100 mmol/L (98-107) Carbon Dioxide Level 26 mmol/L (21-32) Anion Gap 13 (6-14) Blood Urea Nitrogen 32 mg/dL (7-20) Creatinine 4.4 mg/dL (0.6-1.0) Estimated GFR (Cockcroft-Gault) 9.9 Glucose Level 224 mg/dL (70-99) Calcium Level 8.1 mg/dL (8.5-10.1) Phosphorus Level 7.7 mg/dL (2.6-4.7) Albumin 1.7 g/dL (3.4-5.0) Glucose (Fingerstick) 280 mg/dL (70-99) Micro Microbiology 10/15/18 Urine Culture - Final, Complete 10/15/18 Urine Culture Result 1 (DARIN) - Final, Complete Objective Assessment Right foot diabetic plantar ulcer, 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 Chronic kidney disease, on hemodialysis via AVF Cirrhosis. History of toe cellulitis and wound that is healed. Shoulder pain without swelling. ? rotator tear. Ortho is following Plan Plan of Care d/c Vanc and Zosyn f/u am labs Supportive care ANUPAMA ALONZO MD Oct 22, 2018 11:20
--- NOTE | 2018-10-22 11:33 | PDOC ---
Renal-Progress Notes Subjective Notes Notes NONE History of Present Illness Hx of present illness STABLE Vitals Vitals Vital Signs Date Time Temp Pulse Resp B/P (MAP) Pulse Ox O2 Delivery O2 Flow Rate FiO2 10/22/18 11:04 97.8 71 20 104/46 (65) 96 Room Air 97.8 10/22/18 08:00 3.0 Weight Weight [ ] I.O. Intake and Output Intake and Output 10/22/18 06:59 Intake Total 370 ml Output Total 95 ml Balance 275 ml Intake Oral 120 ml IV Total 250 ml Output Urine Total 10 ml Drainage Total 35 ml Estimated Blood Loss 50 ml # Voids 2 Labs Labs Laboratory Tests Test 10/21/18 11:56 10/21/18 14:21 10/21/18 16:38 10/21/18 20:30 Glucose (Fingerstick) 114 mg/dL (70-99) 132 mg/dL (70-99) 129 mg/dL (70-99) 131 mg/dL (70-99) Test 10/22/18 05:25 10/22/18 07:14 White Blood Count 9.2 x10^3/uL (4.0-11.0) Red Blood Count 3.28 x10^6/uL (3.50-5.40) Hemoglobin 10.1 g/dL (12.0-15.5) Hematocrit 30.3 % (36.0-47.0) Mean Corpuscular Volume 92 fL (79-100) Mean Corpuscular Hemoglobin 31 pg (25-35) Mean Corpuscular Hemoglobin Concent 33 g/dL (31-37) Red Cell Distribution Width 16.9 % (11.5-14.5) Platelet Count 106 x10^3/uL (140-400) Neutrophils (%) (Auto) 90 % (31-73) Lymphocytes (%) (Auto) 7 % (24-48) Monocytes (%) (Auto) 3 % (0-9) Eosinophils (%) (Auto) 0 % (0-3) Basophils (%) (Auto) 0 % (0-3) Neutrophils # (Auto) 8.2 x10^3uL (1.8-7.7) Lymphocytes # (Auto) 0.6 x10^3/uL (1.0-4.8) Monocytes # (Auto) 0.3 x10^3/uL (0.0-1.1) Eosinophils # (Auto) 0.0 x10^3/uL (0.0-0.7) Basophils # (Auto) 0.0 x10^3/uL (0.0-0.2) Segmented Neutrophils % 95 % (35-66) Lymphocytes % 2 % (24-48) Atypical Lymphocytes % (Manual) 1 % (0-0) Monocytes % 1 % (0-10) Metamyelocytes % 1 % (0-0) Platelet Estimate Adequate (ADEQUATE) Sodium Level 139 mmol/L (136-145) Potassium Level 4.6 mmol/L (3.5-5.1) Chloride Level 100 mmol/L (98-107) Carbon Dioxide Level 26 mmol/L (21-32) Anion Gap 13 (6-14) Blood Urea Nitrogen 32 mg/dL (7-20) Creatinine 4.4 mg/dL (0.6-1.0) Estimated GFR (Cockcroft-Gault) 9.9 Glucose Level 224 mg/dL (70-99) Calcium Level 8.1 mg/dL (8.5-10.1) Phosphorus Level 7.7 mg/dL (2.6-4.7) Albumin 1.7 g/dL (3.4-5.0) Glucose (Fingerstick) 280 mg/dL (70-99) Micro Micro Microbiology 10/15/18 Urine Culture - Final, Complete 10/15/18 Urine Culture Result 1 (DARIN) - Final, Complete Review of Systems Constitutional: yes: alert, oriented Ears/Nose/Throat: Yes: no symptom reported Eyes: Yes: no symptom reported Pulmonary: Yes no symptom reported Cardiovascular: Yes no symptom reported Gastrointestional: Yes: no symptom reported Genitourinary: Yes: no symptom reported Musculoskeletal: Yes: no symptom reported Skin: Yes no symptom reported Psychiatric/Neurological: Yes: no symptom reported Endocrine: Yes: no symptom reported Physical Exam General Appearance: no apparent distress Skin: warm Respiratory: decreased breath sounds Heart: S1S2 Abdomen: soft, bowel sounds present Genitourinary: bladder flat Extremities: pulses present Neurology: alert Musculoskeletal: Osteoarthritis Assessment Assessment IMP ESRD ANEMIA RIGHT FOOT WOUND DM II HTN PLAN ANTIBIOTICS WOUND CARE HD TODAY UF TO DW OPAL RUBI MD Oct 22, 2018 11:33
[2018-10-22] MEDS: AMOXICILLIN/K CLAV 500/125MG TABLET. PO SCH ×2 (12:29→20:38)
--- NOTE | 2018-10-22 13:15 | NUR ---
KEITH following. Discussed with RN. KEITH contacted Alex at [facility] in [place], [place] (ph: [phone]) to determine if pt had been accepted. Alex advised they are still deciding. RN advised possible discharge date of tomorrow (10/23/18). KEITH left message for Alex, advising of the possible discharge date. KEITH will continue to follow.
[2018-10-22] MEDS: LORazepam 0.5 MG TABLET PO PRN (17:50)
[2018-10-22 19:00] VITALS: BP 105/49
[2018-10-22] MEDS: TEMAZEPAM 7.5 MG CAPSULE PO PRN (20:39)
[2018-10-22 22:51] VITALS: BP 107/51
[2018-10-23 02:48] VITALS: BP 110/54
--- NOTE | 2018-10-23 03:00 | NUR ---
Patient accidentally discontinued IV site. Patient refusing IV reinsertion at this time stating "I'm tired of IV's, I've been poked a million times and I'm done with it." Will pass along to day RN.
[2018-10-23] MEDS: HYDROcodone/APAP 5/325MG 1 TAB TABLET PO PRN ×4 (03:33→20:41)
[2018-10-23 07:00] VITALS: BP 114/50
[2018-10-23 07:16] LABS: BASO % 0 % (0-3); EOS # 0.2 x10^3/uL (0.0-0.7); EOS % 2 % (0-3); HEMOGLOBIN 9.6 g/dL (12.0-15.5); LYMPH # 0.9 x10^3/uL (1.0-4.8); LYMPH % 14 % (24-48); MEAN CORPUSCULAR HEMOGLOBIN 31 pg (25-35); MEAN CORPUSCULAR HGB CONC 33 g/dL (31-37); MEAN CORPUSCULAR VOLUME 93 fL (79-100); MONO # 0.6 x10^3/uL (0.0-1.1); MONO % 8 % (0-9); NEUT % 75 % (31-73); PLATELET COUNT 93 x10^3/uL (140-400); RED BLOOD COUNT 3.12 x10^6/uL (3.50-5.40); RED CELL DISTRIBUTION WIDTH 16.6 % (11.5-14.5); WHITE BLOOD COUNT 6.7 x10^3/uL (4.0-11.0)
[2018-10-23 07:37] LABS: ALBUMIN 1.9 g/dL (3.4-5.0); CALCIUM 8.2 mg/dL (8.5-10.1); CREATININE 3.2 mg/dL (0.6-1.0); GFR 14.2; PHOSPHORUS 4.3 mg/dL (2.6-4.7); POTASSIUM 3.7 mmol/L (3.5-5.1)
[2018-10-23] MEDS: INSULIN LISPRO 300 UNITS/3 ML INSULN.PEN. SQ SCH ×6 (08:00→17:00)
[2018-10-23] MEDS: METOPROLOL SUCC 24HR ER 25 MG TAB.ER.24H. PO SCH (08:21)
[2018-10-23] MEDS: cloNIDine HCL 0.2 MG TABLET PO SCH (08:22)
[2018-10-23] MEDS: SEVELAMER CARBONATE 800 MG TABLET. PO SCH ×3 (08:22→17:52)
[2018-10-23] MEDS: GABAPENTIN 100 MG CAPSULE. PO SCH (08:22)
[2018-10-23] MEDS: rifAXIMin 550 MG TABLET PO SCH ×2 (08:22→20:41)
[2018-10-23] MEDS: AMOXICILLIN/K CLAV 500/125MG TABLET. PO SCH ×2 (08:22→20:40)
[2018-10-23] MEDS: ASPIRIN ENTERIC COATED 325 MG TABLET.DR. PO SCH (08:22)
[2018-10-23] MEDS: PANTOPRAZOLE 40 MG TABLET.DR. PO SCH (08:22)
[2018-10-23] MEDS: LEVOTHYROXINE 125 MCG TABLET PO SCH (08:23)
[2018-10-23] MEDS: SERTRALINE 50 MG TABLET. PO SCH (08:23)
[2018-10-23] MEDS: LACTOBACILLUS RHAMNOSUS GG 1 CAPSULE. PO SCH ×2 (08:23→20:40)
[2018-10-23] MEDS: ISOSORBIDE MONONITRATE ER 30 MG TAB.ER.24H PO SCH (08:24)
[2018-10-23] MEDS: LACTULOSE 20 GM/30 ML SOLUTION. PO SCH ×3 (08:24→20:42)
[2018-10-23] MEDS: NYSTATIN TOPICAL POWDER 15GM BOTTLE. TP SCH ×2 (08:25→20:42)
[2018-10-23] MEDS: DICLOFENAC SODIUM 1% TOPICAL GEL 100GM TUBE. TP SCH ×2 (08:25→20:40)
[2018-10-23] MEDS: INSULIN GLARGINE 300 UNITS/3 ML INSULN.PEN. SQ SCH (08:43)
--- NOTE | 2018-10-23 08:48 | PDOC ---
Provider Note Provider Note Vascular S: Pt seen in her hospital bed, she is drowsy and not communicating. O:Drowsy VSS, afebrile Right BKA stump dressing and drain removed. Incision dry and intact. No swelling or ecchymosis. H/H stable A/P: POD #2 Right BKA Continue PT/OT, discussed with nurse to obtain rooke boot rigid knee protector with soft interface, hopefully prior to discharge. Daily dry gauze dressing changes. Ok for patient to transfer to rehab/SNF today, follow up 11/12/2018 2:30 with kira Wilson in chart. TREVON ALICEA APRN Oct 23, 2018 08:48
--- NOTE | 2018-10-23 10:43 | PDOC ---
Subjective: Subjective: Says she's at [place], the year is 2007, and doesn't know who the president is. Objective: Objective: Reviewed w/ RN - possible DC to [facility] today. Vital Signs: Vital Signs Date Time Temp Pulse Resp B/P (MAP) Pulse Ox O2 Delivery O2 Flow Rate FiO2 10/23/18 08:24 75 114/50 10/23/18 08:00 Room Air 10/23/18 07:00 97.7 18 94 97.7 10/22/18 08:00 3.0 Labs: Laboratory Tests Test 10/22/18 11:45 10/22/18 20:29 10/23/18 06:15 10/23/18 07:41 Glucose (Fingerstick) 156 mg/dL 95 mg/dL 125 mg/dL White Blood Count 6.7 x10^3/uL Red Blood Count 3.12 x10^6/uL Hemoglobin 9.6 g/dL Hematocrit 29.0 % Mean Corpuscular Volume 93 fL Mean Corpuscular Hemoglobin 31 pg Mean Corpuscular Hemoglobin Concent 33 g/dL Red Cell Distribution Width 16.6 % Platelet Count 93 x10^3/uL Neutrophils (%) (Auto) 75 % Lymphocytes (%) (Auto) 14 % Monocytes (%) (Auto) 8 % Eosinophils (%) (Auto) 2 % Basophils (%) (Auto) 0 % Neutrophils # (Auto) 5.0 x10^3uL Lymphocytes # (Auto) 0.9 x10^3/uL Monocytes # (Auto) 0.6 x10^3/uL Eosinophils # (Auto) 0.2 x10^3/uL Basophils # (Auto) 0.0 x10^3/uL Sodium Level 139 mmol/L Potassium Level 3.7 mmol/L Chloride Level 101 mmol/L Carbon Dioxide Level 29 mmol/L Anion Gap 9 Blood Urea Nitrogen 21 mg/dL Creatinine 3.2 mg/dL Estimated GFR (Cockcroft-Gault) 14.2 Glucose Level 130 mg/dL Calcium Level 8.2 mg/dL Phosphorus Level 4.3 mg/dL Albumin 1.9 g/dL PE: GEN: up to chair eating breakfast w/ help from staff LUNGS: CTAB HEART: RRR ABD: stable - tender NEURO/PSYCH: tearful and confused A/P: S/p RBKA, panniculitis ESRD, ACD, cirrhosis Confusion -- Confused (occurs intermittently for her), refuses lactulose (though on Xifaxan) - check ammonia. DC per primary/vascular. BRENDA DONOVAN Oct 23, 2018 10:43
--- NOTE | 2018-10-23 10:54 | PDOC ---
SURGICAL PROGRESS NOTE Subjective very groggy during visit still has pain Vital Signs Vital Signs Date Time Temp Pulse Resp B/P (MAP) Pulse Ox O2 Delivery O2 Flow Rate FiO2 10/23/18 08:24 75 114/50 10/23/18 08:00 Room Air 10/23/18 07:00 97.7 18 94 97.7 10/22/18 08:00 3.0 I&O Intake and Output 10/23/18 07:00 Intake Total 860 ml Output Total 40 ml Balance 820 ml Intake Oral 860 ml Other 40 ml General: No acute distress, Other (groggy) Abdomen: Soft, Other (chronic skin changes to pannus) Labs Laboratory Tests Test 10/21/18 11:56 10/21/18 14:21 10/21/18 16:38 10/21/18 20:30 Glucose (Fingerstick) 114 mg/dL (70-99) 132 mg/dL (70-99) 129 mg/dL (70-99) 131 mg/dL (70-99) Test 10/22/18 05:25 10/22/18 07:14 10/22/18 11:45 10/22/18 20:29 White Blood Count 9.2 x10^3/uL (4.0-11.0) Red Blood Count 3.28 x10^6/uL (3.50-5.40) Hemoglobin 10.1 g/dL (12.0-15.5) Hematocrit 30.3 % (36.0-47.0) Mean Corpuscular Volume 92 fL (79-100) Mean Corpuscular Hemoglobin 31 pg (25-35) Mean Corpuscular Hemoglobin Concent 33 g/dL (31-37) Red Cell Distribution Width 16.9 % (11.5-14.5) Platelet Count 106 x10^3/uL (140-400) Neutrophils (%) (Auto) 90 % (31-73) Lymphocytes (%) (Auto) 7 % (24-48) Monocytes (%) (Auto) 3 % (0-9) Eosinophils (%) (Auto) 0 % (0-3) Basophils (%) (Auto) 0 % (0-3) Neutrophils # (Auto) 8.2 x10^3uL (1.8-7.7) Lymphocytes # (Auto) 0.6 x10^3/uL (1.0-4.8) Monocytes # (Auto) 0.3 x10^3/uL (0.0-1.1) Eosinophils # (Auto) 0.0 x10^3/uL (0.0-0.7) Basophils # (Auto) 0.0 x10^3/uL (0.0-0.2) Segmented Neutrophils % 95 % (35-66) Lymphocytes % 2 % (24-48) Atypical Lymphocytes % (Manual) 1 % (0-0) Monocytes % 1 % (0-10) Metamyelocytes % 1 % (0-0) Platelet Estimate Adequate (ADEQUATE) Sodium Level 139 mmol/L (136-145) Potassium Level 4.6 mmol/L (3.5-5.1) Chloride Level 100 mmol/L (98-107) Carbon Dioxide Level 26 mmol/L (21-32) Anion Gap 13 (6-14) Blood Urea Nitrogen 32 mg/dL (7-20) Creatinine 4.4 mg/dL (0.6-1.0) Estimated GFR (Cockcroft-Gault) 9.9 Glucose Level 224 mg/dL (70-99) Calcium Level 8.1 mg/dL (8.5-10.1) Phosphorus Level 7.7 mg/dL (2.6-4.7) Albumin 1.7 g/dL (3.4-5.0) Glucose (Fingerstick) 280 mg/dL (70-99) 156 mg/dL (70-99) 95 mg/dL (70-99) Test 10/23/18 06:15 10/23/18 07:41 White Blood Count 6.7 x10^3/uL (4.0-11.0) Red Blood Count 3.12 x10^6/uL (3.50-5.40) Hemoglobin 9.6 g/dL (12.0-15.5) Hematocrit 29.0 % (36.0-47.0) Mean Corpuscular Volume 93 fL (79-100) Mean Corpuscular Hemoglobin 31 pg (25-35) Mean Corpuscular Hemoglobin Concent 33 g/dL (31-37) Red Cell Distribution Width 16.6 % (11.5-14.5) Platelet Count 93 x10^3/uL (140-400) Neutrophils (%) (Auto) 75 % (31-73) Lymphocytes (%) (Auto) 14 % (24-48) Monocytes (%) (Auto) 8 % (0-9) Eosinophils (%) (Auto) 2 % (0-3) Basophils (%) (Auto) 0 % (0-3) Neutrophils # (Auto) 5.0 x10^3uL (1.8-7.7) Lymphocytes # (Auto) 0.9 x10^3/uL (1.0-4.8) Monocytes # (Auto) 0.6 x10^3/uL (0.0-1.1) Eosinophils # (Auto) 0.2 x10^3/uL (0.0-0.7) Basophils # (Auto) 0.0 x10^3/uL (0.0-0.2) Sodium Level 139 mmol/L (136-145) Potassium Level 3.7 mmol/L (3.5-5.1) Chloride Level 101 mmol/L (98-107) Carbon Dioxide Level 29 mmol/L (21-32) Anion Gap 9 (6-14) Blood Urea Nitrogen 21 mg/dL (7-20) Creatinine 3.2 mg/dL (0.6-1.0) Estimated GFR (Cockcroft-Gault) 14.2 Glucose Level 130 mg/dL (70-99) Calcium Level 8.2 mg/dL (8.5-10.1) Phosphorus Level 4.3 mg/dL (2.6-4.7) Albumin 1.9 g/dL (3.4-5.0) Glucose (Fingerstick) 125 mg/dL (70-99) Laboratory Tests Test 10/22/18 11:45 10/22/18 20:29 10/23/18 06:15 10/23/18 07:41 Glucose (Fingerstick) 156 mg/dL (70-99) 95 mg/dL (70-99) 125 mg/dL (70-99) White Blood Count 6.7 x10^3/uL (4.0-11.0) Red Blood Count 3.12 x10^6/uL (3.50-5.40) Hemoglobin 9.6 g/dL (12.0-15.5) Hematocrit 29.0 % (36.0-47.0) Mean Corpuscular Volume 93 fL (79-100) Mean Corpuscular Hemoglobin 31 pg (25-35) Mean Corpuscular Hemoglobin Concent 33 g/dL (31-37) Red Cell Distribution Width 16.6 % (11.5-14.5) Platelet Count 93 x10^3/uL (140-400) Neutrophils (%) (Auto) 75 % (31-73) Lymphocytes (%) (Auto) 14 % (24-48) Monocytes (%) (Auto) 8 % (0-9) Eosinophils (%) (Auto) 2 % (0-3) Basophils (%) (Auto) 0 % (0-3) Neutrophils # (Auto) 5.0 x10^3uL (1.8-7.7) Lymphocytes # (Auto) 0.9 x10^3/uL (1.0-4.8) Monocytes # (Auto) 0.6 x10^3/uL (0.0-1.1) Eosinophils # (Auto) 0.2 x10^3/uL (0.0-0.7) Basophils # (Auto) 0.0 x10^3/uL (0.0-0.2) Sodium Level 139 mmol/L (136-145) Potassium Level 3.7 mmol/L (3.5-5.1) Chloride Level 101 mmol/L (98-107) Carbon Dioxide Level 29 mmol/L (21-32) Anion Gap 9 (6-14) Blood Urea Nitrogen 21 mg/dL (7-20) Creatinine 3.2 mg/dL (0.6-1.0) Estimated GFR (Cockcroft-Gault) 14.2 Glucose Level 130 mg/dL (70-99) Calcium Level 8.2 mg/dL (8.5-10.1) Phosphorus Level 4.3 mg/dL (2.6-4.7) Albumin 1.9 g/dL (3.4-5.0) Problem List Problems Medical Problems: (1) Cirrhosis of liver with ascites Status: Acute (2) Hyperglycemia Status: Acute (3) Open wound of right foot Status: Acute (4) UTI (urinary tract infection) Status: Acute Assessment/Plan supportive measures, no surgical plans, available if needed KAPIL MAZARIEGOS NIGHT SUPERVISOR Oct 23, 2018 10:54
--- NOTE | 2018-10-23 10:59 | NUR ---
SW following pt. Spoke with Alex at [facility] regarding acceptance/denial. Facility declined to take pt stating they are not able to meet pt's needs at this time. Spoke with pt's , Kevin via phone and discussed other options. Pt's still wants to stay in [facility]. agreeable with [facility]. SW phoned and faxed referral to both facilities. Pt admission and acceptance pending. Will continue to follow.
[2018-10-23 11:00] VITALS: BP 90/34
--- NOTE | 2018-10-23 11:05 | PDOC ---
Infectious Disease Note Subjective Subjective feeling better ROS ROS no n/v/d/ Vital Sign Vital Signs Vital Signs Date Time Temp Pulse Resp B/P (MAP) Pulse Ox O2 Delivery O2 Flow Rate FiO2 10/23/18 08:24 75 114/50 10/23/18 08:00 Room Air 10/23/18 07:00 97.7 18 94 97.7 10/22/18 08:00 3.0 Physical Exam PHYSICAL EXAM GENERAL: Sitting on the side of the bed, alert, HEENT: Oral cavity, pharynx is dry. NECK: Supple. LUNGS: Decreased at bases. HEART: S1 and S2. ABDOMEN: Obese, soft EXTREMITIES: Without clubbing, cyanosis. Chronic changes lower extremities, trace edema, RUE-AVF unremarkable. Right BKA SKIN: No rash NEUROLOGIC: Alert, responds appropriately PIV ok Labs Lab Laboratory Tests Test 10/22/18 11:45 10/22/18 20:29 10/23/18 06:15 10/23/18 07:41 Glucose (Fingerstick) 156 mg/dL (70-99) 95 mg/dL (70-99) 125 mg/dL (70-99) White Blood Count 6.7 x10^3/uL (4.0-11.0) Red Blood Count 3.12 x10^6/uL (3.50-5.40) Hemoglobin 9.6 g/dL (12.0-15.5) Hematocrit 29.0 % (36.0-47.0) Mean Corpuscular Volume 93 fL (79-100) Mean Corpuscular Hemoglobin 31 pg (25-35) Mean Corpuscular Hemoglobin Concent 33 g/dL (31-37) Red Cell Distribution Width 16.6 % (11.5-14.5) Platelet Count 93 x10^3/uL (140-400) Neutrophils (%) (Auto) 75 % (31-73) Lymphocytes (%) (Auto) 14 % (24-48) Monocytes (%) (Auto) 8 % (0-9) Eosinophils (%) (Auto) 2 % (0-3) Basophils (%) (Auto) 0 % (0-3) Neutrophils # (Auto) 5.0 x10^3uL (1.8-7.7) Lymphocytes # (Auto) 0.9 x10^3/uL (1.0-4.8) Monocytes # (Auto) 0.6 x10^3/uL (0.0-1.1) Eosinophils # (Auto) 0.2 x10^3/uL (0.0-0.7) Basophils # (Auto) 0.0 x10^3/uL (0.0-0.2) Sodium Level 139 mmol/L (136-145) Potassium Level 3.7 mmol/L (3.5-5.1) Chloride Level 101 mmol/L (98-107) Carbon Dioxide Level 29 mmol/L (21-32) Anion Gap 9 (6-14) Blood Urea Nitrogen 21 mg/dL (7-20) Creatinine 3.2 mg/dL (0.6-1.0) Estimated GFR (Cockcroft-Gault) 14.2 Glucose Level 130 mg/dL (70-99) Calcium Level 8.2 mg/dL (8.5-10.1) Phosphorus Level 4.3 mg/dL (2.6-4.7) Albumin 1.9 g/dL (3.4-5.0) Micro Microbiology 10/15/18 Urine Culture - Final, Complete 10/15/18 Urine Culture Result 1 (DARIN) - Final, Complete Objective Assessment Right foot diabetic plantar ulcer, 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 Chronic kidney disease, on hemodialysis via AVF Cirrhosis. History of toe cellulitis and wound that is healed. Shoulder pain without swelling. ? rotator tear. Ortho is following Plan Plan of Care vivien he to d/c f/u am labs Supportive care ANUPAMA ALONZO MD Oct 23, 2018 11:05
--- NOTE | 2018-10-23 11:24 | PDOC ---
Renal-Progress Notes Subjective Notes Notes STABLE History of Present Illness Hx of present illness NO CHANGE Vitals Vitals Vital Signs Date Time Temp Pulse Resp B/P (MAP) Pulse Ox O2 Delivery O2 Flow Rate FiO2 10/23/18 08:24 75 114/50 10/23/18 08:00 Room Air 10/23/18 07:00 97.7 18 94 97.7 10/22/18 08:00 3.0 Weight Weight [ ] I.O. Intake and Output Intake and Output 10/23/18 07:00 Intake Total 860 ml Output Total 40 ml Balance 820 ml Intake Oral 860 ml Other 40 ml Labs Labs Laboratory Tests Test 10/22/18 11:45 10/22/18 20:29 10/23/18 06:15 10/23/18 07:41 Glucose (Fingerstick) 156 mg/dL (70-99) 95 mg/dL (70-99) 125 mg/dL (70-99) White Blood Count 6.7 x10^3/uL (4.0-11.0) Red Blood Count 3.12 x10^6/uL (3.50-5.40) Hemoglobin 9.6 g/dL (12.0-15.5) Hematocrit 29.0 % (36.0-47.0) Mean Corpuscular Volume 93 fL (79-100) Mean Corpuscular Hemoglobin 31 pg (25-35) Mean Corpuscular Hemoglobin Concent 33 g/dL (31-37) Red Cell Distribution Width 16.6 % (11.5-14.5) Platelet Count 93 x10^3/uL (140-400) Neutrophils (%) (Auto) 75 % (31-73) Lymphocytes (%) (Auto) 14 % (24-48) Monocytes (%) (Auto) 8 % (0-9) Eosinophils (%) (Auto) 2 % (0-3) Basophils (%) (Auto) 0 % (0-3) Neutrophils # (Auto) 5.0 x10^3uL (1.8-7.7) Lymphocytes # (Auto) 0.9 x10^3/uL (1.0-4.8) Monocytes # (Auto) 0.6 x10^3/uL (0.0-1.1) Eosinophils # (Auto) 0.2 x10^3/uL (0.0-0.7) Basophils # (Auto) 0.0 x10^3/uL (0.0-0.2) Sodium Level 139 mmol/L (136-145) Potassium Level 3.7 mmol/L (3.5-5.1) Chloride Level 101 mmol/L (98-107) Carbon Dioxide Level 29 mmol/L (21-32) Anion Gap 9 (6-14) Blood Urea Nitrogen 21 mg/dL (7-20) Creatinine 3.2 mg/dL (0.6-1.0) Estimated GFR (Cockcroft-Gault) 14.2 Glucose Level 130 mg/dL (70-99) Calcium Level 8.2 mg/dL (8.5-10.1) Phosphorus Level 4.3 mg/dL (2.6-4.7) Albumin 1.9 g/dL (3.4-5.0) Micro Micro Microbiology 10/15/18 Urine Culture - Final, Complete 10/15/18 Urine Culture Result 1 (DARIN) - Final, Complete Review of Systems Constitutional: yes: alert, oriented Ears/Nose/Throat: Yes: no symptom reported Eyes: Yes: no symptom reported Pulmonary: Yes no symptom reported Cardiovascular: Yes no symptom reported Gastrointestional: Yes: no symptom reported Genitourinary: Yes: no symptom reported Musculoskeletal: Yes: no symptom reported Skin: Yes no symptom reported Psychiatric/Neurological: Yes: no symptom reported Endocrine: Yes: no symptom reported Physical Exam General Appearance: no apparent distress Skin: warm Respiratory: decreased breath sounds Heart: S1S2 Abdomen: soft, bowel sounds present Genitourinary: bladder flat Extremities: pulses present Neurology: alert Musculoskeletal: Osteoarthritis Assessment Assessment IMP ESRD ANEMIA RIGHT FOOT WOUND S/P R BKA DM II HTN PLAN ANTIBIOTICS WOUND CARE HD TOMORROW OPAL RUBI MD Oct 23, 2018 11:24
--- NOTE | 2018-10-23 12:00 | PDOC ---
PROGRESS NOTES Chief Complaint Chief Complaint Cirrhosis Foot ulcer ESRD on HD DM2 History of Present Illness History of Present Illness Ms. Douglass is a 73 year old female with severe right shoulder pain and abdominal pain. Her pain to her abdomen fluctuates, no quigley in stool, Also 10/10 right shoulder pain, she can barely move the arm due to pain. she was last dialyzed on Friday, and abd pain had fluctuated in the past few days prior to admit. 10/17: Seen by vascular for right foot, ID for h/o infection, nephro for ESRD, general surgery for panniculitis surgery not recommensed due to high risk with cirrhosis . Seen by ortho for shoulder pain. 10/18: Right foot very painful today. No BM. Abdomen swelling. Tolerated diet ok. Seen on dialysis. MRI shoulder resulted - Rotator cuff tendinosis. There does appear to be a small full-thickness rotator cuff tear of the supraspinatus tendon, and a probable mild subscapularis tendon tear. Mild subdeltoid bursal fluid or bursitis. 10/19 WOUND PROBES TO THE BONE may need amputation , risk of significant complications given cirrhosis Nondisplaced chip fracture at the medial base of the left second toe 10/20 pt is thinking about amputation, grand daughter encouraged 10/20 She foot pain RIGHT, NOT IMPROVED, breast pain all on the right from her fall. should undergo BKA of RLE. Labs reviewed. D/W nursing staff 10/21 DATE OF SURGERY: 10/21/201810/23 still very somnolent, will reduce pain meds SURGEON: Xochilt Child M.D. EMERGENCY DEPARTMENT MANAGER: Deanna Merino. 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 POSTOPERATIVE DIAGNOSES: Right foot infected gangrene and nonhealing wounds. OPERATION PERFORMED: Right [id number] amputation. BLOOD LOSS: 50 mL. ANESTHESIA USED: General anesthesia. 10/22 moderate post-op pain persists, pt somnolent albumin very low at 1.7 10/23 very somnolent reducing narcotics today Plan: ortho FOLLOWING GI to see for cirrhosis Nephro to see for ESRD ID for history of MDRO infection - pseudomonas ct right foot 10/19 PERSONALLY REVIEWED IMAGES in my opinion amputation needed , wound unlikely to heal otherwise Vitals Vitals Vital Signs Date Time Temp Pulse Resp B/P (MAP) Pulse Ox O2 Delivery O2 Flow Rate FiO2 10/23/18 11:54 Room Air 10/23/18 08:24 75 114/50 10/23/18 07:00 97.7 18 94 97.7 10/22/18 08:00 3.0 Physical Exam Physical Exam GENERAL: Sitting on the side of the bed, alert, HEENT: Oral cavity, pharynx is dry. NECK: Supple. LUNGS: Decreased at bases. HEART: S1 and S2. ABDOMEN: Obese, soft EXTREMITIES: Without clubbing, cyanosis. Chronic changes lower extremities, trace edema, RUE-AVF unremarkable. Right BKA SKIN: No rash NEUROLOGIC: Alert, responds appropriately PIV ok General: Alert, Cooperative, No acute distress, mild distress, Other (groggy) Heart: Regular rate, Normal S1, Normal S2 Lungs: Clear Abdomen: Normal bowel sounds, Soft, Other (chronic skin changes to pannus) Extremities: No cyanosis, Other (the right shoulder is tender to palpation around the greater tuberosity and rotator cuff. The gross alignment is normal and there is no effusion or erythema. Passive range of motion is very limited, and was painful at the extremes, only about 40 forward flexion and 40 of abduction before it got quite painful and she said "I'm going to hit you if you continue". She has a pulsatile dialysis shunt in the right upper arm near the distal biceps, anterior humerus antecubital fossa region. The biceps tendon seems to be intact to resisted motion, and there does not seem to be pain or deformity at the elbow. Her distal sensation and motor function are preserved.) Skin: Other (right foot dressing with some sanguinous drainage) Labs LABS Laboratory Tests Test 10/22/18 20:29 10/23/18 06:15 10/23/18 07:41 10/23/18 11:43 Glucose (Fingerstick) 95 mg/dL (70-99) 125 mg/dL (70-99) 128 mg/dL (70-99) White Blood Count 6.7 x10^3/uL (4.0-11.0) Red Blood Count 3.12 x10^6/uL (3.50-5.40) Hemoglobin 9.6 g/dL (12.0-15.5) Hematocrit 29.0 % (36.0-47.0) Mean Corpuscular Volume 93 fL (79-100) Mean Corpuscular Hemoglobin 31 pg (25-35) Mean Corpuscular Hemoglobin Concent 33 g/dL (31-37) Red Cell Distribution Width 16.6 % (11.5-14.5) Platelet Count 93 x10^3/uL (140-400) Neutrophils (%) (Auto) 75 % (31-73) Lymphocytes (%) (Auto) 14 % (24-48) Monocytes (%) (Auto) 8 % (0-9) Eosinophils (%) (Auto) 2 % (0-3) Basophils (%) (Auto) 0 % (0-3) Neutrophils # (Auto) 5.0 x10^3uL (1.8-7.7) Lymphocytes # (Auto) 0.9 x10^3/uL (1.0-4.8) Monocytes # (Auto) 0.6 x10^3/uL (0.0-1.1) Eosinophils # (Auto) 0.2 x10^3/uL (0.0-0.7) Basophils # (Auto) 0.0 x10^3/uL (0.0-0.2) Sodium Level 139 mmol/L (136-145) Potassium Level 3.7 mmol/L (3.5-5.1) Chloride Level 101 mmol/L (98-107) Carbon Dioxide Level 29 mmol/L (21-32) Anion Gap 9 (6-14) Blood Urea Nitrogen 21 mg/dL (7-20) Creatinine 3.2 mg/dL (0.6-1.0) Estimated GFR (Cockcroft-Gault) 14.2 Glucose Level 130 mg/dL (70-99) Calcium Level 8.2 mg/dL (8.5-10.1) Phosphorus Level 4.3 mg/dL (2.6-4.7) Albumin 1.9 g/dL (3.4-5.0) Assessment and Plan Assessmemt and Plan Problems Medical Problems: (1) Cirrhosis of liver with ascites Status: Acute (2) Hyperglycemia Status: Acute (3) Open wound of right foot Status: Acute (4) UTI (urinary tract infection) Status: Acute Comment Review of Relevant I have reviewed the following items karyn (where applicable) has been applied. Labs Laboratory Tests Test 10/21/18 14:21 2/27/19 16:38 10/21/18 20:30 10/22/18 05:25 Glucose (Fingerstick) 132 mg/dL (70-99) 129 mg/dL (70-99) 131 mg/dL (70-99) White Blood Count 9.2 x10^3/uL (4.0-11.0) Red Blood Count 3.28 x10^6/uL (3.50-5.40) Hemoglobin 10.1 g/dL (12.0-15.5) Hematocrit 30.3 % (36.0-47.0) Mean Corpuscular Volume 92 fL (79-100) Mean Corpuscular Hemoglobin 31 pg (25-35) Mean Corpuscular Hemoglobin Concent 33 g/dL (31-37) Red Cell Distribution Width 16.9 % (11.5-14.5) Platelet Count 106 x10^3/uL (140-400) Neutrophils (%) (Auto) 90 % (31-73) Lymphocytes (%) (Auto) 7 % (24-48) Monocytes (%) (Auto) 3 % (0-9) Eosinophils (%) (Auto) 0 % (0-3) Basophils (%) (Auto) 0 % (0-3) Neutrophils # (Auto) 8.2 x10^3uL (1.8-7.7) Lymphocytes # (Auto) 0.6 x10^3/uL (1.0-4.8) Monocytes # (Auto) 0.3 x10^3/uL (0.0-1.1) Eosinophils # (Auto) 0.0 x10^3/uL (0.0-0.7) Basophils # (Auto) 0.0 x10^3/uL (0.0-0.2) Segmented Neutrophils % 95 % (35-66) Lymphocytes % 2 % (24-48) Atypical Lymphocytes % (Manual) 1 % (0-0) Monocytes % 1 % (0-10) Metamyelocytes % 1 % (0-0) Platelet Estimate Adequate (ADEQUATE) Sodium Level 139 mmol/L (136-145) Potassium Level 4.6 mmol/L (3.5-5.1) Chloride Level 100 mmol/L (98-107) Carbon Dioxide Level 26 mmol/L (21-32) Anion Gap 13 (6-14) Blood Urea Nitrogen 32 mg/dL (7-20) Creatinine 4.4 mg/dL (0.6-1.0) Estimated GFR (Cockcroft-Gault) 9.9 Glucose Level 224 mg/dL (70-99) Calcium Level 8.1 mg/dL (8.5-10.1) Phosphorus Level 7.7 mg/dL (2.6-4.7) Albumin 1.7 g/dL (3.4-5.0) Test 10/22/18 07:14 10/22/18 11:45 10/22/18 20:29 10/23/18 06:15 Glucose (Fingerstick) 280 mg/dL (70-99) 156 mg/dL (70-99) 95 mg/dL (70-99) White Blood Count 6.7 x10^3/uL (4.0-11.0) Red Blood Count 3.12 x10^6/uL (3.50-5.40) Hemoglobin 9.6 g/dL (12.0-15.5) Hematocrit 29.0 % (36.0-47.0) Mean Corpuscular Volume 93 fL (79-100) Mean Corpuscular Hemoglobin 31 pg (25-35) Mean Corpuscular Hemoglobin Concent 33 g/dL (31-37) Red Cell Distribution Width 16.6 % (11.5-14.5) Platelet Count 93 x10^3/uL (140-400) Neutrophils (%) (Auto) 75 % (31-73) Lymphocytes (%) (Auto) 14 % (24-48) Monocytes (%) (Auto) 8 % (0-9) Eosinophils (%) (Auto) 2 % (0-3) Basophils (%) (Auto) 0 % (0-3) Neutrophils # (Auto) 5.0 x10^3uL (1.8-7.7) Lymphocytes # (Auto) 0.9 x10^3/uL (1.0-4.8) Monocytes # (Auto) 0.6 x10^3/uL (0.0-1.1) Eosinophils # (Auto) 0.2 x10^3/uL (0.0-0.7) Basophils # (Auto) 0.0 x10^3/uL (0.0-0.2) Sodium Level 139 mmol/L (136-145) Potassium Level 3.7 mmol/L (3.5-5.1) Chloride Level 101 mmol/L (98-107) Carbon Dioxide Level 29 mmol/L (21-32) Anion Gap 9 (6-14) Blood Urea Nitrogen 21 mg/dL (7-20) Creatinine 3.2 mg/dL (0.6-1.0) Estimated GFR (Cockcroft-Gault) 14.2 Glucose Level 130 mg/dL (70-99) Calcium Level 8.2 mg/dL (8.5-10.1) Phosphorus Level 4.3 mg/dL (2.6-4.7) Albumin 1.9 g/dL (3.4-5.0) Test 10/23/18 07:41 10/23/18 11:43 Glucose (Fingerstick) 125 mg/dL (70-99) 128 mg/dL (70-99) Laboratory Tests Test 10/22/18 20:29 10/23/18 06:15 10/23/18 07:41 10/23/18 11:43 Glucose (Fingerstick) 95 mg/dL (70-99) 125 mg/dL (70-99) 128 mg/dL (70-99) White Blood Count 6.7 x10^3/uL (4.0-11.0) Red Blood Count 3.12 x10^6/uL (3.50-5.40) Hemoglobin 9.6 g/dL (12.0-15.5) Hematocrit 29.0 % (36.0-47.0) Mean Corpuscular Volume 93 fL (79-100) Mean Corpuscular Hemoglobin 31 pg (25-35) Mean Corpuscular Hemoglobin Concent 33 g/dL (31-37) Red Cell Distribution Width 16.6 % (11.5-14.5) Platelet Count 93 x10^3/uL (140-400) Neutrophils (%) (Auto) 75 % (31-73) Lymphocytes (%) (Auto) 14 % (24-48) Monocytes (%) (Auto) 8 % (0-9) Eosinophils (%) (Auto) 2 % (0-3) Basophils (%) (Auto) 0 % (0-3) Neutrophils # (Auto) 5.0 x10^3uL (1.8-7.7) Lymphocytes # (Auto) 0.9 x10^3/uL (1.0-4.8) Monocytes # (Auto) 0.6 x10^3/uL (0.0-1.1) Eosinophils # (Auto) 0.2 x10^3/uL (0.0-0.7) Basophils # (Auto) 0.0 x10^3/uL (0.0-0.2) Sodium Level 139 mmol/L (136-145) Potassium Level 3.7 mmol/L (3.5-5.1) Chloride Level 101 mmol/L (98-107) Carbon Dioxide Level 29 mmol/L (21-32) Anion Gap 9 (6-14) Blood Urea Nitrogen 21 mg/dL (7-20) Creatinine 3.2 mg/dL (0.6-1.0) Estimated GFR (Cockcroft-Gault) 14.2 Glucose Level 130 mg/dL (70-99) Calcium Level 8.2 mg/dL (8.5-10.1) Phosphorus Level 4.3 mg/dL (2.6-4.7) Albumin 1.9 g/dL (3.4-5.0) Microbiology 10/15/18 Urine Culture - Final, Complete 10/15/18 Urine Culture Result 1 (DARIN) - Final, Complete Medications Current Medications Morphine Sulfate (Morphine Sulfate) 4 mg PRN Q15MIN PRN IV/SQ PAIN GREATER THAN 3/10 Last administered on 10/15/18at 18:50; Start 10/15/18 at 14:15; Stop at 14:14; Status DC Insulin Human Regular (HumuLIN R VIAL) 10 unit 1X ONCE IV ; Start 10/15/18 at 16:45; Stop 10/15/18 at 16:46; Status Cancel Insulin Human Regular (HumuLIN R VIAL) 5 unit 1X ONCE IV Last administered on 10/15/18at 17:04; Start 10/15/18 at 17:15; Stop 10/15/18 at 17:16; Status DC Ondansetron HCl (Zofran) 4 mg PRN Q8HRS PRN IV NAUSEA/VOMITING; Start 10/15/18 at 19:15; Stop 10/16/18 at 19:14; Status DC Morphine Sulfate (Morphine Sulfate) 4 mg PRN Q2HR PRN IV PAIN; Start 10/15/18 at 19:15; Stop 10/16/18 at 19:14; Status DC Insulin Human Lispro (HumaLOG) 0-7 UNITS TIDWMEALS SQ Last administered on 10/22 12:34; Start 10/16/18 at 08:00 Dextrose (Dextrose 50%-Water Syringe) 12.5 gm PRN Q15MIN PRN IV SEE COMMENTS; Start 10/15/18 at 19:15 Ceftriaxone Sodium (Rocephin) 1 gm Q24H IVP Last administered on 10/15/18 22: 27; Start 10/15/18 at 20:00; Stop 10/16/18 at 10:39; Status DC Zolpidem Tartrate (Ambien) 5 mg PRN QHS PRN PO INSOMNIA Last administered on 22:27; Start 10/15/18 at 22:15; Stop 10/16/18 at 22:30; Status DC Aspirin (Ecotrin) 325 mg DAILYWBKFT PO Last administered on 10/23/18 08:22; Start 10/16/18 at 10:00 Clonidine HCl (Catapres) 0.2 mg DAILY PO Last administered on 10/23/18 08:22; Start 10/16/18 at 09:00 Diclofenac Sodium (Voltaren) 1 ronel BID TP Last administered on 10/23/18 08:25; Start 10/16/18 at 09:00 Famotidine (Pepcid) 20 mg QODAY PO ; Start 10/16/18 at 09:00; Stop 10/16/18 at 09:35; Status DC Gabapentin (Neurontin) 100 mg DAILY PO Last administered on 10/23/18 08:22; Start 10/16/18 at 09:00 Acetaminophen/ Hydrocodone Bitart (Lortab 5/325) 2 tab PRN Q6HRS PRN PO PAIN Last administered on 10/23/18 11:54; Start 10/16/18 at 08:30 Insulin Glargine (Lantus) 15 units DAILY SQ Last administered on 10/23/18 08:43 ; Start 10/16/18 at 09:00 Insulin Human Lispro (HumaLOG) 5 units TIDWMEALS SQ Last administered on 12:34; Start 10/16/18 at 12:00 Lactobacillus Rhamnosus (Culturelle) 1 cap BID PO Last administered on 08:23; Start 10/16/18 at 09:00 Lactulose (Lactulose) 10 gm PRN TID PRN PO CONSTIPATION; Start 10/16/18 at 08: 30; Stop 10/16/18 at 09:35; Status DC Levothyroxine Sodium (Synthroid) 125 mcg DAILY06 PO Last administered on 08:23; Start 10/16/18 at 09:00 Metoprolol Succinate (Toprol Xl) 25 mg DAILY PO Last administered on 10/23/18 08:21; Start 10/16/18 at 09:00 Rifaximin (Xifaxan) 550 mg BID PO Last administered on 10/16/18 13:40; Start 10/16/18 at 09:00; Stop 10/16/18 at 16:03; Status DC Sertraline HCl (Zoloft) 75 mg DAILY PO Last administered on 10/23/18 08:23; Start 10/16/18 at 09:00 Sevelamer Carbonate (Renvela) 800 mg TIDWMEALS PO Last administered on 11:54; Start 10/16/18 at 12:00 Isosorbide Mononitrate (Imdur) 30 mg DAILY PO Last administered on 10/23/18 08: 24; Start 10/16/18 at 09:00 Lactulose (Lactulose) 10 gm TID PO Last administered on 10/19/18 21:07; Start 10/16/18 at 14:00 Rifaximin (Xifaxan) 550 mg Q12HR PO Last administered on 10/23/18 08:22; Start 10/16/18 at 10:00 Pantoprazole Sodium (Protonix) 40 mg DAILYAC PO Last administered on 10/23/18 08:22; Start 10/16/18 at 10:00 Piperacillin Sod/ Tazobactam Sod 2.25 gm/Sodium Chloride 50 ml @ 100 mls/hr Q8HRS IV Last administered on 10/22/18 06:07; Start 10/16/18 at 11:00; Stop at 11:21; Status DC Vancomycin HCl (Vanco Per Pharmacy) 1 each PRN DAILY PRN MC SEE COMMENTS Last administered on 10/21/18at 16:25; Start 10/16/18 at 10:45; Stop 10/22/18 at 11:22 ; Status DC Vancomycin HCl 1.75 gm/Sodium Chloride 500 ml @ 250 mls/hr 1X ONCE IV Last administered on 10/16/18at 15:24; Start 10/16/18 at 11:00; Stop 10/16/18 at 12:59 ; Status DC Vancomycin HCl (Vancomycin Random Level) 1 each 1X ONCE MC Last administered on 10/17/18at 05:05; Start 10/17/18 at 06:00; Stop 10/17/18 at 06:01; Status DC Iohexol (Omnipaque 350 Mg/ml) 100 ml 1X ONCE IV ; Start 10/16/18 at 17:15; Stop 10/16/18 at 17:16; Status DC Info (CONTRAST GIVEN -- Rx MONITORING) 1 each PRN DAILY PRN MC SEE COMMENTS; Start 10/16/18 at 17:30; Stop 10/18/18 at 17:29; Status DC Nystatin (Nystop) 1 ronel BID TP Last administered on 10/19/18at 09:05; Start at 21:30 Temazepam (Restoril) 7.5 mg PRN QHS PRN PO INSOMNIA Last administered on at 20:39; Start 10/16/18 at 22:30 Sodium Chloride 1,000 ml @ 1,000 mls/hr Q1H PRN IV hypotension; Start 10/17/18 at 09:28; Stop 10/17/18 at 15:27; Status DC Albumin Human 200 ml @ 200 mls/hr 1X PRN PRN IV Hypotension; Start 10/17/18 at 09:30; Stop 10/17/18 at 15:29; Status DC Sodium Chloride 1,000 ml @ 400 mls/hr Q2H30M PRN IV PATENCY; Start 10/17/18 at 09:28; Stop 10/17/18 at 21:27; Status DC Info (PHARMACY MONITORING -- do not chart) 1 each PRN DAILY PRN MC SEE COMMENTS ; Start 10/17/18 at 09:30; Stop 10/17/18 at 09:34; Status DC Info (PHARMACY MONITORING -- do not chart) 1 each PRN DAILY PRN MC SEE COMMENTS ; Start 10/17/18 at 09:30 Vancomycin HCl 500 mg/Sodium Chloride 100 ml @ 100 mls/hr QTUTHSA IV Last administered on 10/20/18at 20:59; Start 10/17/18 at 16:00; Stop 10/22/18 at 11:21 ; Status DC Sodium Chloride 250 ml @ 0 mls/hr 1X PRN PRN IV SBP <= 80; Start 10/18/18 at 12 :30 Methylprednisolone Acetate (DEPO-Medrol 40MG VIAL) 40 mg 1X ONCE IM Last administered on 10/18/18at 14:40; Start 10/18/18 at 13:45; Stop 10/18/18 at 13:46 ; Status DC Bupivacaine HCl (Sensorcaine-Mpf 0.25%) 10 ml 1X ONCE IJ Last administered on 10/18/18at 14:40; Start 10/18/18 at 13:45; Stop 10/18/18 at 13:46; Status DC Lorazepam (Ativan) 0.5 mg PRN Q8HRS PRN PO ANXIETY / AGITATION 1ST CHOICE Last administered on 10/22/18at 17:50; Start 10/19/18 at 13:15 Alprazolam (Xanax) 0.25 mg PRN Q8HRS PRN PO ANXIETY / AGITATION 2ND CHOICE Last administered on 10/23/18at 03:32; Start 10/19/18 at 13:30 Sodium Chloride 1,000 ml @ 1,000 mls/hr Q1H PRN IV hypotension; Start 10/20/18 at 08:29; Stop 10/20/18 at 14:28; Status DC Sodium Chloride 1,000 ml @ 400 mls/hr Q2H30M PRN IV PATENCY; Start 10/20/18 at 08:29; Stop 10/20/18 at 20:30; Status DC Info (PHARMACY MONITORING -- do not chart) 1 each PRN DAILY PRN MC SEE COMMENTS ; Start 10/20/18 at 08:30; Status UNV Info (PHARMACY MONITORING -- do not chart) 1 each PRN DAILY PRN MC SEE COMMENTS ; Start 10/20/18 at 08:30; Status UNV Lidocaine HCl (Lidocaine 1% 20ml Vial) 20 ml 1X ONCE INJ ; Start 10/20/18 at 08 :45; Stop 10/20/18 at 08:46; Status DC Lidocaine HCl (Xylocaine-Mpf 1% 2ml Vial) 2 ml STK-MED ONCE .ROUTE ; Start 10/20 at 08:55; Stop 10/20/18 at 08:56; Status DC Ondansetron HCl (Zofran) 4 mg PRN Q6HRS PRN IV NAUSEA/VOMITING Last administered on 10/20/18at 21:00; Start 10/20/18 at 16:30 Fentanyl Citrate (Fentanyl 2ml Vial) 25 mcg PRN Q5MIN PRN IV MILD PAIN; Start 10/21/18 at 07:00; Stop 10/22/18 at 06:59; Status DC Fentanyl Citrate (Fentanyl 2ml Vial) 50 mcg PRN Q5MIN PRN IV MODERATE TO SEVERE PAIN Last administered on 10/21/18at 14:51; Start 10/21/18 at 07:00; Stop 10/22/18 at 06:59; Status DC Morphine Sulfate (Morphine Sulfate) 1 mg PRN Q10MIN PRN IV SEVERE PAIN; Start 10/21/18 at 07:00; Stop 10/21/18 at 14:26; Status DC Hydromorphone HCl (Dilaudid) 0.5 mg PRN Q10MIN PRN IV SEV PAIN, Second choice; Start 10/21/18 at 07:00; Stop 10/22/18 at 06:59; Status DC Prochlorperazine Edisylate (Compazine) 5 mg PACU PRN PRN IV NAUSEA, MRX1; Start 10/21/18 at 07:00; Stop 10/22/18 at 06:59; Status DC Sodium Chloride 1,000 ml @ 0 mls/hr Q0M IV ; Start 10/21/18 at 07:00 Fentanyl Citrate (Fentanyl 2ml Vial) 100 mcg STK-MED ONCE .ROUTE ; Start at 11:41; Stop 10/21/18 at 11:42; Status DC Ketamine HCl (Ketamine) 50 mg STK-MED ONCE .ROUTE ; Start 10/21/18 at 11:41; Stop 10/21/18 at 11:42; Status DC Sevoflurane (Ultane) 60 ml STK-MED ONCE IH ; Start 10/21/18 at 11:41; Stop 10/21 at 11:42; Status DC Propofol 20 ml @ As Directed STK-MED ONCE IV ; Start 10/21/18 at 11:41; Stop at 11:42; Status DC Dexamethasone Sodium Phosphate (Decadron) 20 mg STK-MED ONCE .ROUTE ; Start at 11:41; Stop 10/21/18 at 11:42; Status DC Ondansetron HCl (Zofran) 4 mg STK-MED ONCE .ROUTE ; Start 10/21/18 at 11:41; Stop 10/21/18 at 11:42; Status DC Lidocaine HCl (Lidocaine Pf 2% Vial) 5 ml STK-MED ONCE .ROUTE ; Start 10/21/18 at 11:41; Stop 10/21/18 at 11:42; Status DC Phenylephrine HCl (Taran-Synephrine Inj) 10 mg STK-MED ONCE .ROUTE ; Start at 11:43; Stop 10/21/18 at 11:44; Status DC Bacitracin 44646 unit/Sodium Chloride 500 ml @ 500 mls/hr 1X ONCE IRR Last administered on 10/21/18at 13:26; Start 10/21/18 at 12:43; Stop 10/21/18 at 13:42 ; Status DC Ephedrine Sulfate (Akovaz) 50 mg STK-MED ONCE .ROUTE ; Start 10/21/18 at 13:05; Stop 10/21/18 at 13:06; Status DC Morphine Sulfate (Morphine Sulfate) 2 mg PRN Q2HR PRN IV PAIN Last administered on 10/21/18at 19:44; Start 10/21/18 at 14:15 Fentanyl Citrate (Fentanyl 2ml Vial) 100 mcg STK-MED ONCE .ROUTE ; Start at 14:23; Stop 10/21/18 at 14:24; Status DC Fentanyl Citrate (Fentanyl 2ml Vial) 100 mcg STK-MED ONCE .ROUTE ; Start at 14:49; Stop 10/21/18 at 14:50; Status DC Lidocaine HCl (Xylocaine-Mpf 1% 2ml Vial) 2 ml STK-MED ONCE .ROUTE ; Start 10/20 at 09:00; Stop 10/22/18 at 09:09; Status DC Info (PHARMACY MONITORING -- do not chart) 1 each PRN DAILY PRN MC SEE COMMENTS ; Start 10/22/18 at 10:15; Status UNV Info (PHARMACY MONITORING -- do not chart) 1 each PRN DAILY PRN MC SEE COMMENTS ; Start 10/22/18 at 10:15; Status UNV Lidocaine HCl (Xylocaine-Mpf 1% 2ml Vial) 2 ml STK-MED ONCE .ROUTE ; Start 10/22 at 10:16; Stop 10/22/18 at 10:17; Status DC Amoxicillin/ Clavulanate Potassium (Augmentin 500/ 125mg) 1 tab BID PO Last administered on 10/23/18at 08:22; Start 10/22/18 at 12:00 Lidocaine HCl (Xylocaine-Mpf 1% 2ml Vial) 2 ml STK-MED ONCE .ROUTE ; Start 10/22 at 10:30; Stop 10/23/18 at 09:02; Status DC Active Scripts Active Zofran (Ondansetron Hcl) 4 Mg Tablet 1 Tab PO Q6HRS Cephalexin 500 Mg Tablet 1 Tab PO BID Humalog (Insulin Lispro) 100 Unit/1 Ml Insuln.pen 5 Units SQ TIDWMEALS 28 Days Culturelle (Lactobacillus Rhamnosus Gg) 1 Each Cap.sprink 1 Cap PO BID 28 Days Lantus Solostar (Insulin Glargine,Hum.rec.anlog) 100 Unit/1 Ml Insuln.pen 15 Units SQ DAILY 28 Days Cipro (Ciprofloxacin Hcl) 250 Mg Tablet 250 Mg PO DAILY 10 Days Lactulose 20 Gm/30 Ml Solution 10 Gm PO PRN TID PRN 10 Days Aspirin Ec (Aspirin) 325 Mg Tablet.dr 325 Mg PO DAILYWBKFT 30 Days Reported Calcium Acetate 667 Mg Tablet 667 Mg PO BID Calcium Acetate 667 Mg Tablet 1,334 Mg PO TIDWMEALS Vitamin D (Cholecalciferol (Vitamin D3)) 50,000 Unit Capsule 50,000 Unit PO DAILY Tizanidine Hcl 2 Mg Capsule 2 Mg PO BID PRN Meclizine Hcl 25 Mg Tablet 1 Tab PO TID Voltaren (Diclofenac Sodium) 100 Gm Gel..gram. 1 Gm TP BID Hydrocodone-Apap 5-325 (Hydrocodone Bit/Acetaminophen) 1 Each Tablet 2 Tab PO PRN Q6HRS PRN Clonidine Hcl 0.2 Mg Tablet 0.2 Mg PO DAILY Gabapentin (Gabapentin) 100 Mg Capsule 100 Mg PO DAILY Zoloft (Sertraline Hcl) 50 Mg Tablet 75 Mg PO DAILY Renvela (Sevelamer Carbonate) 800 Mg Tablet 1 Tab PO TIDWMEALS Levothyroxine Sodium 175 Mcg Tablet 125 Mcg PO DAILYAC Dialyvite [place] D Tablet (Multivitamin, Min Cmb#25/Fa/D3) 1 Each Tablet 1 Each PO DAILY Metoprolol Succinate ( Xl ) (Metoprolol Succinate) 25 Mg Tab.er.24h 25 Mg PO DAILY Ondansetron Hcl 4 Mg Tablet 4 Mg PO Q6HRS PRN Zolpidem Tartrate 5 Mg Tablet 5 Mg PO PRN QHS PRN Famotidine 20 Mg Tablet 20 Mg PO DAILY Xifaxan (Rifaximin) 550 Mg Tablet 1 Tab PO BID Isosorbide Dinitrate 30 Mg Tablet 1 Tab PO DAILY Vitals/I & O Vital Sign - Last 24 Hours 10/22/18 10/22/18 10/22/18 10/22/18 17:50 19:00 20:00 22:51 Temp 97.8 97.5 97.8 97.5 Pulse 76 77 Resp 20 18 18 B/P (MAP) 105/49 (67) 107/51 (69) Pulse Ox 96 94 94 O2 Delivery Room Air Room Air Room Air Room Air 10/23/18 10/23/18 10/23/18 10/23/18 02:48 03:33 04:36 07:00 Temp 97.6 97.7 97.6 97.7 Pulse 79 75 Resp 19 15 15 18 B/P (MAP) 110/54 (72) 114/50 (71) Pulse Ox 93 93 93 94 O2 Delivery Room Air Room Air Room Air Room Air 10/23/18 10/23/18 10/23/18 10/23/18 08:00 08:21 08:22 08:24 Pulse 75 75 75 B/P (MAP) 114/50 114/50 114/50 O2 Delivery Room Air 10/23/18 11:54 O2 Delivery Room Air Intake and Output 10/22/18 10/22/18 10/23/18 14:59 22:59 06:59 Intake Total 360 ml 150 ml 350 ml Output Total 40 ml Balance 360 ml 110 ml 350 ml FEROZ KELLY MD Oct 23, 2018 12:00
--- NOTE | 2018-10-23 13:00 | NUR ---
Óscar FISHER reported they do not have an open bed at this time. [facility] and rehab is reviewing clinicals. Will continue to follow.
[2018-10-23 15:00] VITALS: BP 95/38
--- NOTE | 2018-10-23 17:10 | PATHOLOGY ---
[facility] Accession Number: [id number] . 01 Material submitted: . RIGHT LEG, BKA . 01 Clinical history: . Gangrene . 02 Diagnosis: Right below knee amputation: - Deeply penetrating ulcer of plantar aspect of foot with ulcer base showing necrosis and acute inflammation and underlying granulation tissue. 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 - Skin and subcutaneous tissue of proximal amputation margin viable. (JPM/db; 10/23/2018) LBQ/10/23/2018 . 02 Electronically signed: . Sebastian Lyons MD, Pathologist NPI- [id number] . 01 Gross description: . The specimen is received fresh, labeled "Cecily Douglass, right leg". Received is a right naorx-ndw-bjse amputation measuring 21.7 cm from toe to heel, 11.6 cm from heel to skin margin, 24.6 cm from heel to fibular margin, and 26.4 cm from heel to tibial margin. The skin and soft tissue margins appear viable. All five toes are present. The nails are pale alvarez to blue-billy and thickened in appearance. On the plantar aspect of the foot, there is a well-circumscribed, necrotic lesion measuring 2.5 x 2.0 cm, which probes to a depth of 1.9 cm down to the bone. The dorsal and medial aspects of the epidermal surface are flaky in appearance. Sectioning through the anterior and posterior tibial vasculatures reveals slightly patent lumens, with calcification present in the anterior aspect. The specimen is submitted representatively as follows: . A1 skin and soft tissue margins A2 direct customer service representative section of lesion on plantar aspect of foot down to the bone A3 direct customer service representative section of bone underlying the lesion, following decalcification A4 anterior tibial vasculature A5 posterior tibial vasculature. (CAA; 10/22/2018) QAC/QAC . 02 Pathologist provided ICD-10: I70.261, I70.239 . 02 CPT . 129299, 539302 Specimen Comment: A courtesy copy of this report has been sent to Specimen Comment: [phone], , , . Specimen Comment: Report sent to ,DR GAMEZ,DR ANGEL / DR CASAREZ Performed at: [address] [facility], [place] [id number] MD Keo Garcia MD Phone: [phone] Performed at: [address] [id number] MD Sebastian Lyons MD Phone: [phone]
--- NOTE | 2018-10-23 18:01 | NUR ---
Night RN informed this RN patient does not want IV, this statement stayed true during the RN's shift. Dr. Ledezma paged and notified, patient's wishes respected-no IV at this time.
[2018-10-23 19:59] VITALS: BP 98/42
[2018-10-23 23:59] VITALS: BP 103/59
[2018-10-24 03:59] VITALS: BP 119/52
[2018-10-24] MEDS: LEVOTHYROXINE 125 MCG TABLET PO SCH (05:33)
[2018-10-24 06:29] LABS: BASO % 1 % (0-3); EOS # 0.2 x10^3/uL (0.0-0.7); EOS % 3 % (0-3); HEMOGLOBIN 8.8 g/dL (12.0-15.5); LYMPH # 0.6 x10^3/uL (1.0-4.8); LYMPH % 9 % (24-48); MEAN CORPUSCULAR HEMOGLOBIN 31 pg (25-35); MEAN CORPUSCULAR HGB CONC 34 g/dL (31-37); MEAN CORPUSCULAR VOLUME 92 fL (79-100); MONO # 0.4 x10^3/uL (0.0-1.1); MONO % 6 % (0-9); NEUT # 5.2 x10^3uL (1.8-7.7); NEUT % 81 % (31-73); PLATELET COUNT 77 x10^3/uL (140-400); RED BLOOD COUNT 2.82 x10^6/uL (3.50-5.40); RED CELL DISTRIBUTION WIDTH 16.4 % (11.5-14.5); WHITE BLOOD COUNT 6.4 x10^3/uL (4.0-11.0)
[2018-10-24 06:48] LABS: CALCIUM 8.1 mg/dL (8.5-10.1); CREATININE 4.1 mg/dL (0.6-1.0); GFR 10.7; POTASSIUM 3.9 mmol/L (3.5-5.1)
[2018-10-24 07:00] VITALS: BP 141/51
[2018-10-24] MEDS: INSULIN LISPRO 300 UNITS/3 ML INSULN.PEN. SQ SCH ×6 (08:00→17:00)
[2018-10-24] MEDS: ASPIRIN ENTERIC COATED 325 MG TABLET.DR. PO SCH (08:57)
[2018-10-24] MEDS: LACTOBACILLUS RHAMNOSUS GG 1 CAPSULE. PO SCH ×2 (08:57→20:52)
[2018-10-24] MEDS: PANTOPRAZOLE 40 MG TABLET.DR. PO SCH (08:58)
[2018-10-24] MEDS: SEVELAMER CARBONATE 800 MG TABLET. PO SCH ×3 (08:58→17:32)
[2018-10-24] MEDS: SERTRALINE 50 MG TABLET. PO SCH (08:58)
[2018-10-24] MEDS: AMOXICILLIN/K CLAV 500/125MG TABLET. PO SCH ×2 (08:59→20:51)
[2018-10-24] MEDS: GABAPENTIN 100 MG CAPSULE. PO SCH (08:59)
[2018-10-24] MEDS: NYSTATIN TOPICAL POWDER 15GM BOTTLE. TP SCH ×2 (09:00→20:52)
[2018-10-24] MEDS: cloNIDine HCL 0.2 MG TABLET PO SCH (09:00)
[2018-10-24] MEDS: LACTULOSE 20 GM/30 ML SOLUTION. PO SCH ×4 (09:00→21:00)
[2018-10-24] MEDS: ISOSORBIDE MONONITRATE ER 30 MG TAB.ER.24H PO SCH (09:00)
[2018-10-24] MEDS: rifAXIMin 550 MG TABLET PO SCH ×2 (09:00→20:51)
[2018-10-24] MEDS: METOPROLOL SUCC 24HR ER 25 MG TAB.ER.24H. PO SCH (09:00)
[2018-10-24] MEDS: HYDROcodone/APAP 5/325MG 1 TAB TABLET PO PRN ×2 (09:00→19:01)
[2018-10-24] MEDS: INSULIN GLARGINE 300 UNITS/3 ML INSULN.PEN. SQ SCH (09:18)
[2018-10-24] MEDS: DICLOFENAC SODIUM 1% TOPICAL GEL 100GM TUBE. TP SCH ×2 (09:19→21:00)
[2018-10-24] MEDS ORDERED: ALBUMIN HUMAN 25% 200 ML IV PRN (10:30)
[2018-10-24] MEDS ORDERED: IV NORMAL SALINE 1000ML BAG 1,000 ML IV PRN (10:30)
--- NOTE | 2018-10-24 10:30 | NUR ---
Pt refused meds, including nystatin powder; per HD Nurse, please hold BP meds for afternoon run.
--- NOTE | 2018-10-24 10:48 | PDOC ---
PROGRESS NOTES Chief Complaint Chief Complaint Cirrhosis Foot ulcer ESRD on HD DM2 History of Present Illness History of Present Illness Ms. Douglass is a 73 year old female with severe right shoulder pain and abdominal pain. Her pain to her abdomen fluctuates, no quigley in stool, Also 10/10 right shoulder pain, she can barely move the arm due to pain. she was last dialyzed on Friday, and abd pain had fluctuated in the past few days prior to admit. 10/17: Seen by vascular for right foot, ID for h/o infection, nephro for ESRD, general surgery for panniculitis surgery not recommensed due to high risk with cirrhosis . Seen by ortho for shoulder pain. 10/18: Right foot very painful today. No BM. Abdomen swelling. Tolerated diet ok. Seen on dialysis. MRI shoulder resulted - Rotator cuff tendinosis. There does appear to be a small full-thickness rotator cuff tear of the supraspinatus tendon, and a probable mild subscapularis tendon tear. Mild subdeltoid bursal fluid or bursitis. 10/19 WOUND PROBES TO THE BONE may need amputation , risk of significant complications given cirrhosis Nondisplaced chip fracture at the medial base of the left second toe 10/20 pt is thinking about amputation, grand daughter encouraged 10/20 She foot pain RIGHT, NOT IMPROVED, breast pain all on the right from her fall. should undergo BKA of RLE. Labs reviewed. D/W nursing staff 10/21 DATE OF SURGERY: 10/21/201810/23 still very somnolent, will reduce pain meds SURGEON: Xochilt Child M.D. SHOE RECONDITIONER: Deanna Merino. 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 POSTOPERATIVE DIAGNOSES: Right foot infected gangrene and nonhealing wounds. OPERATION PERFORMED: Right [id number] amputation. BLOOD LOSS: 50 mL. ANESTHESIA USED: General anesthesia. 10/22 moderate post-op pain persists, pt somnolent albumin very low at 1.7 10/23 very somnolent reducing narcotics today 10/24 SEEMS MORE DEPRESSED AND TEARFUL Plan: ortho FOLLOWING GI to see for cirrhosis Nephro to see for ESRD ID for history of MDRO infection - pseudomonas ct right foot 10/19 PERSONALLY REVIEWED IMAGES in my opinion amputation needed , wound unlikely to heal otherwise Vitals Vitals Vital Signs Date Time Temp Pulse Resp B/P (MAP) Pulse Ox O2 Delivery O2 Flow Rate FiO2 10/24/18 09:00 18 100 Room Air 10/24/18 09:00 65 141/51 10/24/18 07:00 99.1 3.0 99.1 Physical Exam Physical Exam GENERAL: Sitting on the side of the bed, alert, HEENT: Oral cavity, pharynx is dry. NECK: Supple. LUNGS: Decreased at bases. HEART: S1 and S2. ABDOMEN: Obese, soft EXTREMITIES: Without clubbing, cyanosis. Chronic changes lower extremities, trace edema, RUE-AVF unremarkable. Right BKA SKIN: No rash NEUROLOGIC: Alert, responds appropriately PIV ok General: Alert, Oriented X3, Cooperative, No acute distress, mild distress, Other (groggy) Heart: Regular rate, Normal S1, Normal S2 Lungs: Clear Abdomen: Normal bowel sounds, Soft, No hepatosplenomegaly, Other (chronic skin changes to pannus) Extremities: No cyanosis, Other (the right shoulder is tender to palpation around the greater tuberosity and rotator cuff. The gross alignment is normal and there is no effusion or erythema. Passive range of motion is very limited, and was painful at the extremes, only about 40 forward flexion and 40 of abduction before it got quite painful and she said "I'm going to hit you if you continue". She has a pulsatile dialysis shunt in the right upper arm near the distal biceps, anterior humerus antecubital fossa region. The biceps tendon seems to be intact to resisted motion, and there does not seem to be pain or deformity at the elbow. Her distal sensation and motor function are preserved.) Skin: Other (right foot dressing DRY) Labs LABS Laboratory Tests Test 10/23/18 11:43 10/23/18 13:05 10/23/18 17:06 10/23/18 20:41 Glucose (Fingerstick) 128 mg/dL (70-99) 126 mg/dL (70-99) 127 mg/dL (70-99) Ammonia 11 mcmol/L (11-34) Test 10/24/18 05:55 10/24/18 07:22 White Blood Count 6.4 x10^3/uL (4.0-11.0) Red Blood Count 2.82 x10^6/uL (3.50-5.40) Hemoglobin 8.8 g/dL (12.0-15.5) Hematocrit 26.0 % (36.0-47.0) Mean Corpuscular Volume 92 fL (79-100) Mean Corpuscular Hemoglobin 31 pg (25-35) Mean Corpuscular Hemoglobin Concent 34 g/dL (31-37) Red Cell Distribution Width 16.4 % (11.5-14.5) Platelet Count 77 x10^3/uL (140-400) Neutrophils (%) (Auto) 81 % (31-73) Lymphocytes (%) (Auto) 9 % (24-48) Monocytes (%) (Auto) 6 % (0-9) Eosinophils (%) (Auto) 3 % (0-3) Basophils (%) (Auto) 1 % (0-3) Neutrophils # (Auto) 5.2 x10^3uL (1.8-7.7) Lymphocytes # (Auto) 0.6 x10^3/uL (1.0-4.8) Monocytes # (Auto) 0.4 x10^3/uL (0.0-1.1) Eosinophils # (Auto) 0.2 x10^3/uL (0.0-0.7) Basophils # (Auto) 0.0 x10^3/uL (0.0-0.2) Sodium Level 138 mmol/L (136-145) Potassium Level 3.9 mmol/L (3.5-5.1) Chloride Level 100 mmol/L (98-107) Carbon Dioxide Level 30 mmol/L (21-32) Anion Gap 8 (6-14) Blood Urea Nitrogen 27 mg/dL (7-20) Creatinine 4.1 mg/dL (0.6-1.0) Estimated GFR (Cockcroft-Gault) 10.7 Glucose Level 150 mg/dL (70-99) Calcium Level 8.1 mg/dL (8.5-10.1) Glucose (Fingerstick) 147 mg/dL (70-99) Assessment and Plan Assessmemt and Plan Problems Medical Problems: (1) Cirrhosis of liver with ascites Status: Acute (2) Hyperglycemia Status: Acute (3) Open wound of right foot Status: Acute (4) UTI (urinary tract infection) Status: Acute Comment Review of Relevant I have reviewed the following items karyn (where applicable) has been applied. Labs Laboratory Tests Test 10/22/18 11:45 10/22/18 20:29 10/23/18 06:15 10/23/18 07:41 Glucose (Fingerstick) 156 mg/dL (70-99) 95 mg/dL (70-99) 125 mg/dL (70-99) White Blood Count 6.7 x10^3/uL (4.0-11.0) Red Blood Count 3.12 x10^6/uL (3.50-5.40) Hemoglobin 9.6 g/dL (12.0-15.5) Hematocrit 29.0 % (36.0-47.0) Mean Corpuscular Volume 93 fL (79-100) Mean Corpuscular Hemoglobin 31 pg (25-35) Mean Corpuscular Hemoglobin Concent 33 g/dL (31-37) Red Cell Distribution Width 16.6 % (11.5-14.5) Platelet Count 93 x10^3/uL (140-400) Neutrophils (%) (Auto) 75 % (31-73) Lymphocytes (%) (Auto) 14 % (24-48) Monocytes (%) (Auto) 8 % (0-9) Eosinophils (%) (Auto) 2 % (0-3) Basophils (%) (Auto) 0 % (0-3) Neutrophils # (Auto) 5.0 x10^3uL (1.8-7.7) Lymphocytes # (Auto) 0.9 x10^3/uL (1.0-4.8) Monocytes # (Auto) 0.6 x10^3/uL (0.0-1.1) Eosinophils # (Auto) 0.2 x10^3/uL (0.0-0.7) Basophils # (Auto) 0.0 x10^3/uL (0.0-0.2) Sodium Level 139 mmol/L (136-145) Potassium Level 3.7 mmol/L (3.5-5.1) Chloride Level 101 mmol/L (98-107) Carbon Dioxide Level 29 mmol/L (21-32) Anion Gap 9 (6-14) Blood Urea Nitrogen 21 mg/dL (7-20) Creatinine 3.2 mg/dL (0.6-1.0) Estimated GFR (Cockcroft-Gault) 14.2 Glucose Level 130 mg/dL (70-99) Calcium Level 8.2 mg/dL (8.5-10.1) Phosphorus Level 4.3 mg/dL (2.6-4.7) Albumin 1.9 g/dL (3.4-5.0) Test 10/23/18 11:43 10/23/18 13:05 10/23/18 17:06 10/23/18 20:41 Glucose (Fingerstick) 128 mg/dL (70-99) 126 mg/dL (70-99) 127 mg/dL (70-99) Ammonia 11 mcmol/L (11-34) Test 10/24/18 05:55 10/24/18 07:22 White Blood Count 6.4 x10^3/uL (4.0-11.0) Red Blood Count 2.82 x10^6/uL (3.50-5.40) Hemoglobin 8.8 g/dL (12.0-15.5) Hematocrit 26.0 % (36.0-47.0) Mean Corpuscular Volume 92 fL (79-100) Mean Corpuscular Hemoglobin 31 pg (25-35) Mean Corpuscular Hemoglobin Concent 34 g/dL (31-37) Red Cell Distribution Width 16.4 % (11.5-14.5) Platelet Count 77 x10^3/uL (140-400) Neutrophils (%) (Auto) 81 % (31-73) Lymphocytes (%) (Auto) 9 % (24-48) Monocytes (%) (Auto) 6 % (0-9) Eosinophils (%) (Auto) 3 % (0-3) Basophils (%) (Auto) 1 % (0-3) Neutrophils # (Auto) 5.2 x10^3uL (1.8-7.7) Lymphocytes # (Auto) 0.6 x10^3/uL (1.0-4.8) Monocytes # (Auto) 0.4 x10^3/uL (0.0-1.1) Eosinophils # (Auto) 0.2 x10^3/uL (0.0-0.7) Basophils # (Auto) 0.0 x10^3/uL (0.0-0.2) Sodium Level 138 mmol/L (136-145) Potassium Level 3.9 mmol/L (3.5-5.1) Chloride Level 100 mmol/L (98-107) Carbon Dioxide Level 30 mmol/L (21-32) Anion Gap 8 (6-14) Blood Urea Nitrogen 27 mg/dL (7-20) Creatinine 4.1 mg/dL (0.6-1.0) Estimated GFR (Cockcroft-Gault) 10.7 Glucose Level 150 mg/dL (70-99) Calcium Level 8.1 mg/dL (8.5-10.1) Glucose (Fingerstick) 147 mg/dL (70-99) Laboratory Tests Test 10/23/18 11:43 10/23/18 13:05 10/23/18 17:06 10/23/18 20:41 Glucose (Fingerstick) 128 mg/dL (70-99) 126 mg/dL (70-99) 127 mg/dL (70-99) Ammonia 11 mcmol/L (11-34) Test 10/24/18 05:55 10/24/18 07:22 White Blood Count 6.4 x10^3/uL (4.0-11.0) Red Blood Count 2.82 x10^6/uL (3.50-5.40) Hemoglobin 8.8 g/dL (12.0-15.5) Hematocrit 26.0 % (36.0-47.0) Mean Corpuscular Volume 92 fL (79-100) Mean Corpuscular Hemoglobin 31 pg (25-35) Mean Corpuscular Hemoglobin Concent 34 g/dL (31-37) Red Cell Distribution Width 16.4 % (11.5-14.5) Platelet Count 77 x10^3/uL (140-400) Neutrophils (%) (Auto) 81 % (31-73) Lymphocytes (%) (Auto) 9 % (24-48) Monocytes (%) (Auto) 6 % (0-9) Eosinophils (%) (Auto) 3 % (0-3) Basophils (%) (Auto) 1 % (0-3) Neutrophils # (Auto) 5.2 x10^3uL (1.8-7.7) Lymphocytes # (Auto) 0.6 x10^3/uL (1.0-4.8) Monocytes # (Auto) 0.4 x10^3/uL (0.0-1.1) Eosinophils # (Auto) 0.2 x10^3/uL (0.0-0.7) Basophils # (Auto) 0.0 x10^3/uL (0.0-0.2) Sodium Level 138 mmol/L (136-145) Potassium Level 3.9 mmol/L (3.5-5.1) Chloride Level 100 mmol/L (98-107) Carbon Dioxide Level 30 mmol/L (21-32) Anion Gap 8 (6-14) Blood Urea Nitrogen 27 mg/dL (7-20) Creatinine 4.1 mg/dL (0.6-1.0) Estimated GFR (Cockcroft-Gault) 10.7 Glucose Level 150 mg/dL (70-99) Calcium Level 8.1 mg/dL (8.5-10.1) Glucose (Fingerstick) 147 mg/dL (70-99) Microbiology 10/15/18 Urine Culture - Final, Complete 10/15/18 Urine Culture Result 1 (DARIN) - Final, Complete Medications Current Medications Morphine Sulfate (Morphine Sulfate) 4 mg PRN Q15MIN PRN IV/SQ PAIN GREATER THAN 3/10 Last administered on 10/15/18at 18:50; Start 10/15/18 at 14:15; Stop at 14:14; Status DC Insulin Human Regular (HumuLIN R VIAL) 10 unit 1X ONCE IV ; Start 10/15/18 at 16:45; Stop 10/15/18 at 16:46; Status Cancel Insulin Human Regular (HumuLIN R VIAL) 5 unit 1X ONCE IV Last administered on 10/15/18at 17:04; Start 10/15/18 at 17:15; Stop 10/15/18 at 17:16; Status DC Ondansetron HCl (Zofran) 4 mg PRN Q8HRS PRN IV NAUSEA/VOMITING; Start 10/15/18 at 19:15; Stop 10/16/18 at 19:14; Status DC Morphine Sulfate (Morphine Sulfate) 4 mg PRN Q2HR PRN IV PAIN; Start 10/15/18 at 19:15; Stop 10/16/18 at 19:14; Status DC Insulin Human Lispro (HumaLOG) 0-7 UNITS TIDWMEALS SQ Last administered on 10/22at 12:34; Start 10/16/18 at 08:00 Dextrose (Dextrose 50%-Water Syringe) 12.5 gm PRN Q15MIN PRN IV SEE COMMENTS; Start 10/15/18 at 19:15 Ceftriaxone Sodium (Rocephin) 1 gm Q24H IVP Last administered on 10/15/18 22: 27; Start 10/15/18 at 20:00; Stop 10/16/18 at 10:39; Status DC Zolpidem Tartrate (Ambien) 5 mg PRN QHS PRN PO INSOMNIA Last administered on at 22:27; Start 10/15/18 at 22:15; Stop 10/16/18 at 22:30; Status DC Aspirin (Ecotrin) 325 mg DAILYWBKFT PO Last administered on 10/24/18 08:57; Start 10/16/18 at 10:00 Clonidine HCl (Catapres) 0.2 mg DAILY PO Last administered on 10/23/18 08:22; Start 10/16/18 at 09:00 Diclofenac Sodium (Voltaren) 1 ronel BID TP Last administered on 10/24/18 09:19; Start 10/16/18 at 09:00 Famotidine (Pepcid) 20 mg QODAY PO ; Start 10/16/18 at 09:00; Stop 10/16/18 at 09:35; Status DC Gabapentin (Neurontin) 100 mg DAILY PO Last administered on 10/24/18 08:59; Start 10/16/18 at 09:00 Acetaminophen/ Hydrocodone Bitart (Lortab 5/325) 2 tab PRN Q6HRS PRN PO PAIN Last administered on 10/23/18 11:54; Start 10/16/18 at 08:30; Stop 10/23/18 at 15 :59; Status DC Insulin Glargine (Lantus) 15 units DAILY SQ Last administered on 10/24/18 09:18 ; Start 10/16/18 at 09:00 Insulin Human Lispro (HumaLOG) 5 units TIDWMEALS SQ Last administered on 09:19; Start 10/16/18 at 12:00 Lactobacillus Rhamnosus (Culturelle) 1 cap BID PO Last administered on 08:57; Start 10/16/18 at 09:00 Lactulose (Lactulose) 10 gm PRN TID PRN PO CONSTIPATION; Start 10/16/18 at 08: 30; Stop 10/16/18 at 09:35; Status DC Levothyroxine Sodium (Synthroid) 125 mcg DAILY06 PO Last administered on 05:33; Start 10/16/18 at 09:00 Metoprolol Succinate (Toprol Xl) 25 mg DAILY PO Last administered on 10/23/18 08:21; Start 10/16/18 at 09:00 Rifaximin (Xifaxan) 550 mg BID PO Last administered on 10/16/18 13:40; Start 10/16/18 at 09:00; Stop 10/16/18 at 16:03; Status DC Sertraline HCl (Zoloft) 75 mg DAILY PO Last administered on 10/24/18 08:58; Start 10/16/18 at 09:00 Sevelamer Carbonate (Renvela) 800 mg TIDWMEALS PO Last administered on 08:58; Start 10/16/18 at 12:00 Isosorbide Mononitrate (Imdur) 30 mg DAILY PO Last administered on 10/23/18 08: 24; Start 10/16/18 at 09:00 Lactulose (Lactulose) 10 gm TID PO Last administered on 10/19/18 21:07; Start 10/16/18 at 14:00 Rifaximin (Xifaxan) 550 mg Q12HR PO Last administered on 10/24/18 09:00; Start 10/16/18 at 10:00 Pantoprazole Sodium (Protonix) 40 mg DAILYAC PO Last administered on 10/24/18 08:58; Start 10/16/18 at 10:00 Piperacillin Sod/ Tazobactam Sod 2.25 gm/Sodium Chloride 50 ml @ 100 mls/hr Q8HRS IV Last administered on 10/22/18 06:07; Start 10/16/18 at 11:00; Stop at 11:21; Status DC Vancomycin HCl (Vanco Per Pharmacy) 1 each PRN DAILY PRN MC SEE COMMENTS Last administered on 10/21/18 16:25; Start 10/16/18 at 10:45; Stop 10/22/18 at 11:22 ; Status DC Vancomycin HCl 1.75 gm/Sodium Chloride 500 ml @ 250 mls/hr 1X ONCE IV Last administered on 10/16/18at 15:24; Start 10/16/18 at 11:00; Stop 10/16/18 at 12:59 ; Status DC Vancomycin HCl (Vancomycin Random Level) 1 each 1X ONCE MC Last administered on 10/17/18at 05:05; Start 10/17/18 at 06:00; Stop 10/17/18 at 06:01; Status DC Iohexol (Omnipaque 350 Mg/ml) 100 ml 1X ONCE IV ; Start 10/16/18 at 17:15; Stop 10/16/18 at 17:16; Status DC Info (CONTRAST GIVEN -- Rx MONITORING) 1 each PRN DAILY PRN MC SEE COMMENTS; Start 10/16/18 at 17:30; Stop 10/18/18 at 17:29; Status DC Nystatin (Nystop) 1 ronel BID TP Last administered on 10/19/18at 09:05; Start at 21:30 Temazepam (Restoril) 7.5 mg PRN QHS PRN PO INSOMNIA Last administered on at 20:39; Start 10/16/18 at 22:30 Sodium Chloride 1,000 ml @ 1,000 mls/hr Q1H PRN IV hypotension; Start 10/17/18 at 09:28; Stop 10/17/18 at 15:27; Status DC Albumin Human 200 ml @ 200 mls/hr 1X PRN PRN IV Hypotension; Start 10/17/18 at 09:30; Stop 10/17/18 at 15:29; Status DC Sodium Chloride 1,000 ml @ 400 mls/hr Q2H30M PRN IV PATENCY; Start 10/17/18 at 09:28; Stop 10/17/18 at 21:27; Status DC Info (PHARMACY MONITORING -- do not chart) 1 each PRN DAILY PRN MC SEE COMMENTS ; Start 10/17/18 at 09:30; Stop 10/17/18 at 09:34; Status DC Info (PHARMACY MONITORING -- do not chart) 1 each PRN DAILY PRN MC SEE COMMENTS ; Start 10/17/18 at 09:30 Vancomycin HCl 500 mg/Sodium Chloride 100 ml @ 100 mls/hr QTUTHSA IV Last administered on 10/20/18at 20:59; Start 10/17/18 at 16:00; Stop 10/22/18 at 11:21 ; Status DC Sodium Chloride 250 ml @ 0 mls/hr 1X PRN PRN IV SBP <= 80; Start 10/18/18 at 12 :30 Methylprednisolone Acetate (DEPO-Medrol 40MG VIAL) 40 mg 1X ONCE IM Last administered on 10/18/18at 14:40; Start 10/18/18 at 13:45; Stop 10/18/18 at 13:46 ; Status DC Bupivacaine HCl (Sensorcaine-Mpf 0.25%) 10 ml 1X ONCE IJ Last administered on 10/18/18at 14:40; Start 10/18/18 at 13:45; Stop 10/18/18 at 13:46; Status DC Lorazepam (Ativan) 0.5 mg PRN Q8HRS PRN PO ANXIETY / AGITATION 1ST CHOICE Last administered on 10/22/18at 17:50; Start 10/19/18 at 13:15 Alprazolam (Xanax) 0.25 mg PRN Q8HRS PRN PO ANXIETY / AGITATION 2ND CHOICE Last administered on 10/23/18at 03:32; Start 10/19/18 at 13:30 Sodium Chloride 1,000 ml @ 1,000 mls/hr Q1H PRN IV hypotension; Start 10/20/18 at 08:29; Stop 10/20/18 at 14:28; Status DC Sodium Chloride 1,000 ml @ 400 mls/hr Q2H30M PRN IV PATENCY; Start 10/20/18 at 08:29; Stop 10/20/18 at 20:30; Status DC Info (PHARMACY MONITORING -- do not chart) 1 each PRN DAILY PRN MC SEE COMMENTS ; Start 10/20/18 at 08:30; Status UNV Info (PHARMACY MONITORING -- do not chart) 1 each PRN DAILY PRN MC SEE COMMENTS ; Start 10/20/18 at 08:30; Status UNV Lidocaine HCl (Lidocaine 1% 20ml Vial) 20 ml 1X ONCE INJ ; Start 10/20/18 at 08 :45; Stop 10/20/18 at 08:46; Status DC Lidocaine HCl (Xylocaine-Mpf 1% 2ml Vial) 2 ml STK-MED ONCE .ROUTE ; Start 10/20 at 08:55; Stop 10/20/18 at 08:56; Status DC Ondansetron HCl (Zofran) 4 mg PRN Q6HRS PRN IV NAUSEA/VOMITING Last administered on 10/20/18at 21:00; Start 10/20/18 at 16:30 Fentanyl Citrate (Fentanyl 2ml Vial) 25 mcg PRN Q5MIN PRN IV MILD PAIN; Start 10/21/18 at 07:00; Stop 10/22/18 at 06:59; Status DC Fentanyl Citrate (Fentanyl 2ml Vial) 50 mcg PRN Q5MIN PRN IV MODERATE TO SEVERE PAIN Last administered on 10/21/18at 14:51; Start 10/21/18 at 07:00; Stop 10/22/18 at 06:59; Status DC Morphine Sulfate (Morphine Sulfate) 1 mg PRN Q10MIN PRN IV SEVERE PAIN; Start 10/21/18 at 07:00; Stop 10/21/18 at 14:26; Status DC Hydromorphone HCl (Dilaudid) 0.5 mg PRN Q10MIN PRN IV SEV PAIN, Second choice; Start 10/21/18 at 07:00; Stop 10/22/18 at 06:59; Status DC Prochlorperazine Edisylate (Compazine) 5 mg PACU PRN PRN IV NAUSEA, MRX1; Start 10/21/18 at 07:00; Stop 10/22/18 at 06:59; Status DC Sodium Chloride 1,000 ml @ 0 mls/hr Q0M IV ; Start 10/21/18 at 07:00 Fentanyl Citrate (Fentanyl 2ml Vial) 100 mcg STK-MED ONCE .ROUTE ; Start at 11:41; Stop 10/21/18 at 11:42; Status DC Ketamine HCl (Ketamine) 50 mg STK-MED ONCE .ROUTE ; Start 10/21/18 at 11:41; Stop 10/21/18 at 11:42; Status DC Sevoflurane (Ultane) 60 ml STK-MED ONCE IH ; Start 10/21/18 at 11:41; Stop 10/21 at 11:42; Status DC Propofol 20 ml @ As Directed STK-MED ONCE IV ; Start 10/21/18 at 11:41; Stop at 11:42; Status DC Dexamethasone Sodium Phosphate (Decadron) 20 mg STK-MED ONCE .ROUTE ; Start at 11:41; Stop 10/21/18 at 11:42; Status DC Ondansetron HCl (Zofran) 4 mg STK-MED ONCE .ROUTE ; Start 10/21/18 at 11:41; Stop 10/21/18 at 11:42; Status DC Lidocaine HCl (Lidocaine Pf 2% Vial) 5 ml STK-MED ONCE .ROUTE ; Start 10/21/18 at 11:41; Stop 10/21/18 at 11:42; Status DC Phenylephrine HCl (Taran-Synephrine Inj) 10 mg STK-MED ONCE .ROUTE ; Start at 11:43; Stop 10/21/18 at 11:44; Status DC Bacitracin 24096 unit/Sodium Chloride 500 ml @ 500 mls/hr 1X ONCE IRR Last administered on 10/21/18at 13:26; Start 10/21/18 at 12:43; Stop 10/21/18 at 13:42 ; Status DC Ephedrine Sulfate (Akovaz) 50 mg STK-MED ONCE .ROUTE ; Start 10/21/18 at 13:05; Stop 10/21/18 at 13:06; Status DC Morphine Sulfate (Morphine Sulfate) 2 mg PRN Q2HR PRN IV PAIN Last administered on 10/21/18at 19:44; Start 10/21/18 at 14:15; Stop 10/23/18 at 16:00 ; Status DC Fentanyl Citrate (Fentanyl 2ml Vial) 100 mcg STK-MED ONCE .ROUTE ; Start at 14:23; Stop 10/21/18 at 14:24; Status DC Fentanyl Citrate (Fentanyl 2ml Vial) 100 mcg STK-MED ONCE .ROUTE ; Start at 14:49; Stop 10/21/18 at 14:50; Status DC Lidocaine HCl (Xylocaine-Mpf 1% 2ml Vial) 2 ml STK-MED ONCE .ROUTE ; Start 10/20 at 09:00; Stop 10/22/18 at 09:09; Status DC Info (PHARMACY MONITORING -- do not chart) 1 each PRN DAILY PRN MC SEE COMMENTS ; Start 10/22/18 at 10:15; Status UNV Info (PHARMACY MONITORING -- do not chart) 1 each PRN DAILY PRN MC SEE COMMENTS ; Start 10/22/18 at 10:15; Status UNV Lidocaine HCl (Xylocaine-Mpf 1% 2ml Vial) 2 ml STK-MED ONCE .ROUTE ; Start 10/22 at 10:16; Stop 10/22/18 at 10:17; Status DC Amoxicillin/ Clavulanate Potassium (Augmentin 500/ 125mg) 1 tab BID PO Last administered on 10/24/18at 08:59; Start 10/22/18 at 12:00 Lidocaine HCl (Xylocaine-Mpf 1% 2ml Vial) 2 ml STK-MED ONCE .ROUTE ; Start 10/22 at 10:30; Stop 10/23/18 at 09:02; Status DC Acetaminophen/ Hydrocodone Bitart (Lortab 5/325) 1 tab PRN Q6HRS PRN PO PAIN Last administered on 10/24/18at 09:00; Start 10/23/18 at 16:00 Active Scripts Active Zofran (Ondansetron Hcl) 4 Mg Tablet 1 Tab PO Q6HRS Cephalexin 500 Mg Tablet 1 Tab PO BID Humalog (Insulin Lispro) 100 Unit/1 Ml Insuln.pen 5 Units SQ TIDWMEALS 28 Days Culturelle (Lactobacillus Rhamnosus Gg) 1 Each Cap.sprink 1 Cap PO BID 28 Days Lantus Solostar (Insulin Glargine,Hum.rec.anlog) 100 Unit/1 Ml Insuln.pen 15 Units SQ DAILY 28 Days Cipro (Ciprofloxacin Hcl) 250 Mg Tablet 250 Mg PO DAILY 10 Days Lactulose 20 Gm/30 Ml Solution 10 Gm PO PRN TID PRN 10 Days Aspirin Ec (Aspirin) 325 Mg Tablet. 325 Mg PO DAILYWBKFT 30 Days Reported Calcium Acetate 667 Mg Tablet 667 Mg PO BID Calcium Acetate 667 Mg Tablet 1,334 Mg PO TIDWMEALS Vitamin D (Cholecalciferol (Vitamin D3)) 50,000 Unit Capsule 50,000 Unit PO DAILY Tizanidine Hcl 2 Mg Capsule 2 Mg PO BID PRN Meclizine Hcl 25 Mg Tablet 1 Tab PO TID Voltaren (Diclofenac Sodium) 100 Gm Gel..gram. 1 Gm TP BID Hydrocodone-Apap 5-325 (Hydrocodone Bit/Acetaminophen) 1 Each Tablet 2 Tab PO PRN Q6HRS PRN Clonidine Hcl 0.2 Mg Tablet 0.2 Mg PO DAILY Gabapentin (Gabapentin) 100 Mg Capsule 100 Mg PO DAILY Zoloft (Sertraline Hcl) 50 Mg Tablet 75 Mg PO DAILY Renvela (Sevelamer Carbonate) 800 Mg Tablet 1 Tab PO TIDWMEALS Levothyroxine Sodium 175 Mcg Tablet 125 Mcg PO DAILYAC Dialyvite Betances D Tablet (Multivitamin, Min Cmb#25/Fa/D3) 1 Each Tablet 1 Each PO DAILY Metoprolol Succinate ( Xl ) (Metoprolol Succinate) 25 Mg Tab.er.24h 25 Mg PO DAILY Ondansetron Hcl 4 Mg Tablet 4 Mg PO Q6HRS PRN Zolpidem Tartrate 5 Mg Tablet 5 Mg PO PRN QHS PRN Famotidine 20 Mg Tablet 20 Mg PO DAILY Xifaxan (Rifaximin) 550 Mg Tablet 1 Tab PO BID Isosorbide Dinitrate 30 Mg Tablet 1 Tab PO DAILY Vitals/I & O Vital Sign - Last 24 Hours 10/23/18 10/23/18 10/23/18 10/23/18 11:00 11:54 12:59 15:00 Temp 97.9 97.5 97.9 97.5 Pulse 56 54 Resp 18 B/P (MAP) 90/34 (52) 95/38 (57) Pulse Ox 93 91 O2 Delivery Room Air Room Air Room Air Room Air O2 Flow Rate 3.0 10/23/18 10/23/18 10/23/18 10/23/18 19:59 19:59 20:12 20:41 Temp 97.4 97.4 97.4 97.4 Pulse 58 58 Resp 18 B/P (MAP) 98/42 (60) 98/42 (60) Pulse Ox 98 91 91 O2 Delivery Nasal Cannula Nasal Cannula Room Air Room Air O2 Flow Rate 1.5 3.0 3.0 10/23/18 10/23/18 10/24/18 10/24/18 22:19 23:59 03:59 07:00 Temp 97.6 98.4 99.1 97.6 98.4 99.1 Pulse 58 60 65 Resp 18 18 19 20 B/P (MAP) 103/59 (74) 119/52 (74) 141/51 (81) Pulse Ox 91 100 100 100 O2 Delivery Room Air Nasal Cannula Nasal Cannula Nasal Cannula O2 Flow Rate 3.0 3.0 3.0 3.0 10/24/18 10/24/18 10/24/18 10/24/18 09:00 09:00 09:00 09:00 Pulse 65 65 65 Resp 18 B/P (MAP) 141/51 141/51 141/51 Pulse Ox 100 O2 Delivery Room Air Intake and Output 10/23/18 10/23/18 10/24/18 14:59 22:59 06:59 Intake Total 240 ml 120 ml Balance 240 ml 120 ml FEROZ KELLY MD Oct 24, 2018 10:48
[2018-10-24] MEDS ORDERED: DIALYSIS PATIENT. MC PRN ×2 (12:00)
--- NOTE | 2018-10-24 13:37 | PDOC ---
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
--- NOTE | 2018-10-24 14:21 | PDOC ---
PROGRESS NOTES Subjective Subjective SEEN IN FOLLOW UP OF ESRD Objective Objective Vital Signs Date Time Temp Pulse Resp B/P (MAP) Pulse Ox O2 Delivery O2 Flow Rate FiO2 10/24/18 10:00 18 100 Room Air 3.0 10/24/18 09:00 65 141/51 10/24/18 07:00 99.1 99.1 Intake and Output 10/24/18 06:59 Intake Total 360 ml Balance 360 ml Intake Oral 360 ml Physical Exam Abdomen: Normal bowel sounds, Soft, No tenderness, No hepatosplenomegaly, No masses Heart: Regular rate, Normal S1, Normal S2, No murmurs, Gallops General: Alert, Oriented X3, Other (TEARFUL) Lungs: Clear to auscultation Psych/Mental Status: Other (DEPRESSED) Diagnosis RENAL FAILURE: ESRD Assessment Assessment Problems Medical Problems: (1) Cirrhosis of liver with ascites Status: Acute (2) Hyperglycemia Status: Acute (3) Open wound of right foot Status: Acute (4) UTI (urinary tract infection) Status: Acute Plan Plan of Care SEEN ON DIALYSIS AND TOLERATING WELL. CONT EPOGEN FOR ANEMIA. CONT WOUND CARE Comment Review of Relevant I have reviewed the following items karyn (where applicable) has been applied. Labs Laboratory Tests Test 10/22/18 20:29 10/23/18 06:15 10/23/18 07:41 10/23/18 11:43 Glucose (Fingerstick) 95 mg/dL (70-99) 125 mg/dL (70-99) 128 mg/dL (70-99) White Blood Count 6.7 x10^3/uL (4.0-11.0) Red Blood Count 3.12 x10^6/uL (3.50-5.40) Hemoglobin 9.6 g/dL (12.0-15.5) Hematocrit 29.0 % (36.0-47.0) Mean Corpuscular Volume 93 fL (79-100) Mean Corpuscular Hemoglobin 31 pg (25-35) Mean Corpuscular Hemoglobin Concent 33 g/dL (31-37) Red Cell Distribution Width 16.6 % (11.5-14.5) Platelet Count 93 x10^3/uL (140-400) Neutrophils (%) (Auto) 75 % (31-73) Lymphocytes (%) (Auto) 14 % (24-48) Monocytes (%) (Auto) 8 % (0-9) Eosinophils (%) (Auto) 2 % (0-3) Basophils (%) (Auto) 0 % (0-3) Neutrophils # (Auto) 5.0 x10^3uL (1.8-7.7) Lymphocytes # (Auto) 0.9 x10^3/uL (1.0-4.8) Monocytes # (Auto) 0.6 x10^3/uL (0.0-1.1) Eosinophils # (Auto) 0.2 x10^3/uL (0.0-0.7) Basophils # (Auto) 0.0 x10^3/uL (0.0-0.2) Sodium Level 139 mmol/L (136-145) Potassium Level 3.7 mmol/L (3.5-5.1) Chloride Level 101 mmol/L (98-107) Carbon Dioxide Level 29 mmol/L (21-32) Anion Gap 9 (6-14) Blood Urea Nitrogen 21 mg/dL (7-20) Creatinine 3.2 mg/dL (0.6-1.0) Estimated GFR (Cockcroft-Gault) 14.2 Glucose Level 130 mg/dL (70-99) Calcium Level 8.2 mg/dL (8.5-10.1) Phosphorus Level 4.3 mg/dL (2.6-4.7) Albumin 1.9 g/dL (3.4-5.0) Test 10/23/18 13:05 10/23/18 17:06 10/23/18 20:41 10/24/18 05:55 Ammonia 11 mcmol/L (11-34) Glucose (Fingerstick) 126 mg/dL (70-99) 127 mg/dL (70-99) White Blood Count 6.4 x10^3/uL (4.0-11.0) Red Blood Count 2.82 x10^6/uL (3.50-5.40) Hemoglobin 8.8 g/dL (12.0-15.5) Hematocrit 26.0 % (36.0-47.0) Mean Corpuscular Volume 92 fL (79-100) Mean Corpuscular Hemoglobin 31 pg (25-35) Mean Corpuscular Hemoglobin Concent 34 g/dL (31-37) Red Cell Distribution Width 16.4 % (11.5-14.5) Platelet Count 77 x10^3/uL (140-400) Neutrophils (%) (Auto) 81 % (31-73) Lymphocytes (%) (Auto) 9 % (24-48) Monocytes (%) (Auto) 6 % (0-9) Eosinophils (%) (Auto) 3 % (0-3) Basophils (%) (Auto) 1 % (0-3) Neutrophils # (Auto) 5.2 x10^3uL (1.8-7.7) Lymphocytes # (Auto) 0.6 x10^3/uL (1.0-4.8) Monocytes # (Auto) 0.4 x10^3/uL (0.0-1.1) Eosinophils # (Auto) 0.2 x10^3/uL (0.0-0.7) Basophils # (Auto) 0.0 x10^3/uL (0.0-0.2) Sodium Level 138 mmol/L (136-145) Potassium Level 3.9 mmol/L (3.5-5.1) Chloride Level 100 mmol/L (98-107) Carbon Dioxide Level 30 mmol/L (21-32) Anion Gap 8 (6-14) Blood Urea Nitrogen 27 mg/dL (7-20) Creatinine 4.1 mg/dL (0.6-1.0) Estimated GFR (Cockcroft-Gault) 10.7 Glucose Level 150 mg/dL (70-99) Calcium Level 8.1 mg/dL (8.5-10.1) Test 10/24/18 07:22 10/24/18 12:22 Glucose (Fingerstick) 147 mg/dL (70-99) 128 mg/dL (70-99) Laboratory Tests Test 10/23/18 17:06 10/23/18 20:41 10/24/18 05:55 10/24/18 07:22 Glucose (Fingerstick) 126 mg/dL (70-99) 127 mg/dL (70-99) 147 mg/dL (70-99) White Blood Count 6.4 x10^3/uL (4.0-11.0) Red Blood Count 2.82 x10^6/uL (3.50-5.40) Hemoglobin 8.8 g/dL (12.0-15.5) Hematocrit 26.0 % (36.0-47.0) Mean Corpuscular Volume 92 fL (79-100) Mean Corpuscular Hemoglobin 31 pg (25-35) Mean Corpuscular Hemoglobin Concent 34 g/dL (31-37) Red Cell Distribution Width 16.4 % (11.5-14.5) Platelet Count 77 x10^3/uL (140-400) Neutrophils (%) (Auto) 81 % (31-73) Lymphocytes (%) (Auto) 9 % (24-48) Monocytes (%) (Auto) 6 % (0-9) Eosinophils (%) (Auto) 3 % (0-3) Basophils (%) (Auto) 1 % (0-3) Neutrophils # (Auto) 5.2 x10^3uL (1.8-7.7) Lymphocytes # (Auto) 0.6 x10^3/uL (1.0-4.8) Monocytes # (Auto) 0.4 x10^3/uL (0.0-1.1) Eosinophils # (Auto) 0.2 x10^3/uL (0.0-0.7) Basophils # (Auto) 0.0 x10^3/uL (0.0-0.2) Sodium Level 138 mmol/L (136-145) Potassium Level 3.9 mmol/L (3.5-5.1) Chloride Level 100 mmol/L (98-107) Carbon Dioxide Level 30 mmol/L (21-32) Anion Gap 8 (6-14) Blood Urea Nitrogen 27 mg/dL (7-20) Creatinine 4.1 mg/dL (0.6-1.0) Estimated GFR (Cockcroft-Gault) 10.7 Glucose Level 150 mg/dL (70-99) Calcium Level 8.1 mg/dL (8.5-10.1) Test 10/24/18 12:22 Glucose (Fingerstick) 128 mg/dL (70-99) Microbiology 10/15/18 Urine Culture - Final, Complete 10/15/18 Urine Culture Result 1 (DARIN) - Final, Complete Medications Current Medications Morphine Sulfate (Morphine Sulfate) 4 mg PRN Q15MIN PRN IV/SQ PAIN GREATER THAN 3/10 Last administered on 10/15/18at 18:50; Start 10/15/18 at 14:15; Stop at 14:14; Status DC Insulin Human Regular (HumuLIN R VIAL) 10 unit 1X ONCE IV ; Start 10/15/18 at 16:45; Stop 10/15/18 at 16:46; Status Cancel Insulin Human Regular (HumuLIN R VIAL) 5 unit 1X ONCE IV Last administered on 10/15/18at 17:04; Start 10/15/18 at 17:15; Stop 10/15/18 at 17:16; Status DC Ondansetron HCl (Zofran) 4 mg PRN Q8HRS PRN IV NAUSEA/VOMITING; Start 10/15/18 at 19:15; Stop 10/16/18 at 19:14; Status DC Morphine Sulfate (Morphine Sulfate) 4 mg PRN Q2HR PRN IV PAIN; Start 10/15/18 at 19:15; Stop 10/16/18 at 19:14; Status DC Insulin Human Lispro (HumaLOG) 0-7 UNITS TIDWMEALS SQ Last administered on 10/22at 12:34; Start 10/16/18 at 08:00 Dextrose (Dextrose 50%-Water Syringe) 12.5 gm PRN Q15MIN PRN IV SEE COMMENTS; Start 10/15/18 at 19:15 Ceftriaxone Sodium (Rocephin) 1 gm Q24H IVP Last administered on 10/15/18at 22: 27; Start 10/15/18 at 20:00; Stop 10/16/18 at 10:39; Status DC Zolpidem Tartrate (Ambien) 5 mg PRN QHS PRN PO INSOMNIA Last administered on at 22:27; Start 10/15/18 at 22:15; Stop 10/16/18 at 22:30; Status DC Aspirin (Ecotrin) 325 mg DAILYWBKFT PO Last administered on 10/24/18 08:57; Start 10/16/18 at 10:00 Clonidine HCl (Catapres) 0.2 mg DAILY PO Last administered on 10/23/18 08:22; Start 10/16/18 at 09:00 Diclofenac Sodium (Voltaren) 1 ronel BID TP Last administered on 10/24/18 09:19; Start 10/16/18 at 09:00 Famotidine (Pepcid) 20 mg QODAY PO ; Start 10/16/18 at 09:00; Stop 10/16/18 at 09:35; Status DC Gabapentin (Neurontin) 100 mg DAILY PO Last administered on 10/24/18 08:59; Start 10/16/18 at 09:00 Acetaminophen/ Hydrocodone Bitart (Lortab 5/325) 2 tab PRN Q6HRS PRN PO PAIN Last administered on 10/23/18 11:54; Start 10/16/18 at 08:30; Stop 10/23/18 at 15 :59; Status DC Insulin Glargine (Lantus) 15 units DAILY SQ Last administered on 10/24/18 09:18 ; Start 10/16/18 at 09:00 Insulin Human Lispro (HumaLOG) 5 units TIDWMEALS SQ Last administered on 09:19; Start 10/16/18 at 12:00 Lactobacillus Rhamnosus (Culturelle) 1 cap BID PO Last administered on 08:57; Start 10/16/18 at 09:00 Lactulose (Lactulose) 10 gm PRN TID PRN PO CONSTIPATION; Start 10/16/18 at 08: 30; Stop 10/16/18 at 09:35; Status DC Levothyroxine Sodium (Synthroid) 125 mcg DAILY06 PO Last administered on 05:33; Start 10/16/18 at 09:00 Metoprolol Succinate (Toprol Xl) 25 mg DAILY PO Last administered on 10/23/18 08:21; Start 10/16/18 at 09:00 Rifaximin (Xifaxan) 550 mg BID PO Last administered on 10/16/18at 13:40; Start 10/16/18 at 09:00; Stop 10/16/18 at 16:03; Status DC Sertraline HCl (Zoloft) 75 mg DAILY PO Last administered on 10/24/18 08:58; Start 10/16/18 at 09:00 Sevelamer Carbonate (Renvela) 800 mg TIDWMEALS PO Last administered on 08:58; Start 10/16/18 at 12:00 Isosorbide Mononitrate (Imdur) 30 mg DAILY PO Last administered on 10/23/18 08: 24; Start 10/16/18 at 09:00 Lactulose (Lactulose) 10 gm TID PO Last administered on 10/19/18 21:07; Start 10/16/18 at 14:00 Rifaximin (Xifaxan) 550 mg Q12HR PO Last administered on 10/24/18 09:00; Start 10/16/18 at 10:00 Pantoprazole Sodium (Protonix) 40 mg DAILYAC PO Last administered on 10/24/18 08:58; Start 10/16/18 at 10:00 Piperacillin Sod/ Tazobactam Sod 2.25 gm/Sodium Chloride 50 ml @ 100 mls/hr Q8HRS IV Last administered on 10/22/18 06:07; Start 10/16/18 at 11:00; Stop at 11:21; Status DC Vancomycin HCl (Vanco Per Pharmacy) 1 each PRN DAILY PRN MC SEE COMMENTS Last administered on 10/21/18at 16:25; Start 10/16/18 at 10:45; Stop 10/22/18 at 11:22 ; Status DC Vancomycin HCl 1.75 gm/Sodium Chloride 500 ml @ 250 mls/hr 1X ONCE IV Last administered on 10/16/18at 15:24; Start 10/16/18 at 11:00; Stop 10/16/18 at 12:59 ; Status DC Vancomycin HCl (Vancomycin Random Level) 1 each 1X ONCE MC Last administered on 10/17/18at 05:05; Start 10/17/18 at 06:00; Stop 10/17/18 at 06:01; Status DC Iohexol (Omnipaque 350 Mg/ml) 100 ml 1X ONCE IV ; Start 10/16/18 at 17:15; Stop 10/16/18 at 17:16; Status DC Info (CONTRAST GIVEN -- Rx MONITORING) 1 each PRN DAILY PRN MC SEE COMMENTS; Start 10/16/18 at 17:30; Stop 10/18/18 at 17:29; Status DC Nystatin (Nystop) 1 ronel BID TP Last administered on 10/19/18at 09:05; Start at 21:30 Temazepam (Restoril) 7.5 mg PRN QHS PRN PO INSOMNIA Last administered on at 20:39; Start 10/16/18 at 22:30 Sodium Chloride 1,000 ml @ 1,000 mls/hr Q1H PRN IV hypotension; Start 10/17/18 at 09:28; Stop 10/17/18 at 15:27; Status DC Albumin Human 200 ml @ 200 mls/hr 1X PRN PRN IV Hypotension; Start 10/17/18 at 09:30; Stop 10/17/18 at 15:29; Status DC Sodium Chloride 1,000 ml @ 400 mls/hr Q2H30M PRN IV PATENCY; Start 10/17/18 at 09:28; Stop 10/17/18 at 21:27; Status DC Info (PHARMACY MONITORING -- do not chart) 1 each PRN DAILY PRN MC SEE COMMENTS ; Start 10/17/18 at 09:30; Stop 10/17/18 at 09:34; Status DC Info (PHARMACY MONITORING -- do not chart) 1 each PRN DAILY PRN MC SEE COMMENTS ; Start 10/17/18 at 09:30 Vancomycin HCl 500 mg/Sodium Chloride 100 ml @ 100 mls/hr QTUTHSA IV Last administered on 10/20/18at 20:59; Start 10/17/18 at 16:00; Stop 10/22/18 at 11:21 ; Status DC Sodium Chloride 250 ml @ 0 mls/hr 1X PRN PRN IV SBP <= 80; Start 10/18/18 at 12 :30 Methylprednisolone Acetate (DEPO-Medrol 40MG VIAL) 40 mg 1X ONCE IM Last administered on 10/18/18at 14:40; Start 10/18/18 at 13:45; Stop 10/18/18 at 13:46 ; Status DC Bupivacaine HCl (Sensorcaine-Mpf 0.25%) 10 ml 1X ONCE IJ Last administered on 10/18/18at 14:40; Start 10/18/18 at 13:45; Stop 10/18/18 at 13:46; Status DC Lorazepam (Ativan) 0.5 mg PRN Q8HRS PRN PO ANXIETY / AGITATION 1ST CHOICE Last administered on 10/22/18at 17:50; Start 10/19/18 at 13:15 Alprazolam (Xanax) 0.25 mg PRN Q8HRS PRN PO ANXIETY / AGITATION 2ND CHOICE Last administered on 10/23/18at 03:32; Start 10/19/18 at 13:30 Sodium Chloride 1,000 ml @ 1,000 mls/hr Q1H PRN IV hypotension; Start 10/20/18 at 08:29; Stop 10/20/18 at 14:28; Status DC Sodium Chloride 1,000 ml @ 400 mls/hr Q2H30M PRN IV PATENCY; Start 10/20/18 at 08:29; Stop 10/20/18 at 20:30; Status DC Info (PHARMACY MONITORING -- do not chart) 1 each PRN DAILY PRN MC SEE COMMENTS ; Start 10/20/18 at 08:30; Status UNV Info (PHARMACY MONITORING -- do not chart) 1 each PRN DAILY PRN MC SEE COMMENTS ; Start 10/20/18 at 08:30; Status UNV Lidocaine HCl (Lidocaine 1% 20ml Vial) 20 ml 1X ONCE INJ ; Start 10/20/18 at 08 :45; Stop 10/20/18 at 08:46; Status DC Lidocaine HCl (Xylocaine-Mpf 1% 2ml Vial) 2 ml STK-MED ONCE .ROUTE ; Start 10/20 at 08:55; Stop 10/20/18 at 08:56; Status DC Ondansetron HCl (Zofran) 4 mg PRN Q6HRS PRN IV NAUSEA/VOMITING Last administered on 10/20/18at 21:00; Start 10/20/18 at 16:30 Fentanyl Citrate (Fentanyl 2ml Vial) 25 mcg PRN Q5MIN PRN IV MILD PAIN; Start 10/21/18 at 07:00; Stop 10/22/18 at 06:59; Status DC Fentanyl Citrate (Fentanyl 2ml Vial) 50 mcg PRN Q5MIN PRN IV MODERATE TO SEVERE PAIN Last administered on 10/21/18at 14:51; Start 10/21/18 at 07:00; Stop 10/22/18 at 06:59; Status DC Morphine Sulfate (Morphine Sulfate) 1 mg PRN Q10MIN PRN IV SEVERE PAIN; Start 10/21/18 at 07:00; Stop 10/21/18 at 14:26; Status DC Hydromorphone HCl (Dilaudid) 0.5 mg PRN Q10MIN PRN IV SEV PAIN, Second choice; Start 10/21/18 at 07:00; Stop 10/22/18 at 06:59; Status DC Prochlorperazine Edisylate (Compazine) 5 mg PACU PRN PRN IV NAUSEA, MRX1; Start 10/21/18 at 07:00; Stop 10/22/18 at 06:59; Status DC Sodium Chloride 1,000 ml @ 0 mls/hr Q0M IV ; Start 10/21/18 at 07:00 Fentanyl Citrate (Fentanyl 2ml Vial) 100 mcg STK-MED ONCE .ROUTE ; Start at 11:41; Stop 10/21/18 at 11:42; Status DC Ketamine HCl (Ketamine) 50 mg STK-MED ONCE .ROUTE ; Start 10/21/18 at 11:41; Stop 10/21/18 at 11:42; Status DC Sevoflurane (Ultane) 60 ml STK-MED ONCE IH ; Start 10/21/18 at 11:41; Stop 10/21 at 11:42; Status DC Propofol 20 ml @ As Directed STK-MED ONCE IV ; Start 10/21/18 at 11:41; Stop at 11:42; Status DC Dexamethasone Sodium Phosphate (Decadron) 20 mg STK-MED ONCE .ROUTE ; Start at 11:41; Stop 10/21/18 at 11:42; Status DC Ondansetron HCl (Zofran) 4 mg STK-MED ONCE .ROUTE ; Start 10/21/18 at 11:41; Stop 10/21/18 at 11:42; Status DC Lidocaine HCl (Lidocaine Pf 2% Vial) 5 ml STK-MED ONCE .ROUTE ; Start 10/21/18 at 11:41; Stop 10/21/18 at 11:42; Status DC Phenylephrine HCl (Taran-Synephrine Inj) 10 mg STK-MED ONCE .ROUTE ; Start at 11:43; Stop 10/21/18 at 11:44; Status DC Bacitracin 63606 unit/Sodium Chloride 500 ml @ 500 mls/hr 1X ONCE IRR Last administered on 10/21/18at 13:26; Start 10/21/18 at 12:43; Stop 10/21/18 at 13:42 ; Status DC Ephedrine Sulfate (Akovaz) 50 mg STK-MED ONCE .ROUTE ; Start 10/21/18 at 13:05; Stop 10/21/18 at 13:06; Status DC Morphine Sulfate (Morphine Sulfate) 2 mg PRN Q2HR PRN IV PAIN Last administered on 10/21/18at 19:44; Start 10/21/18 at 14:15; Stop 10/23/18 at 16:00 ; Status DC Fentanyl Citrate (Fentanyl 2ml Vial) 100 mcg STK-MED ONCE .ROUTE ; Start at 14:23; Stop 10/21/18 at 14:24; Status DC Fentanyl Citrate (Fentanyl 2ml Vial) 100 mcg STK-MED ONCE .ROUTE ; Start at 14:49; Stop 10/21/18 at 14:50; Status DC Lidocaine HCl (Xylocaine-Mpf 1% 2ml Vial) 2 ml STK-MED ONCE .ROUTE ; Start 10/20 at 09:00; Stop 10/22/18 at 09:09; Status DC Info (PHARMACY MONITORING -- do not chart) 1 each PRN DAILY PRN MC SEE COMMENTS ; Start 10/22/18 at 10:15; Status UNV Info (PHARMACY MONITORING -- do not chart) 1 each PRN DAILY PRN MC SEE COMMENTS ; Start 10/22/18 at 10:15; Status UNV Lidocaine HCl (Xylocaine-Mpf 1% 2ml Vial) 2 ml STK-MED ONCE .ROUTE ; Start 10/22 at 10:16; Stop 10/22/18 at 10:17; Status DC Amoxicillin/ Clavulanate Potassium (Augmentin 500/ 125mg) 1 tab BID PO Last administered on 10/24/18at 08:59; Start 10/22/18 at 12:00 Lidocaine HCl (Xylocaine-Mpf 1% 2ml Vial) 2 ml STK-MED ONCE .ROUTE ; Start 10/22 at 10:30; Stop 10/23/18 at 09:02; Status DC Acetaminophen/ Hydrocodone Bitart (Lortab 5/325) 1 tab PRN Q6HRS PRN PO PAIN Last administered on 10/24/18at 09:00; Start 10/23/18 at 16:00 Sodium Chloride 1,000 ml @ 1,000 mls/hr Q1H PRN IV hypotension; Start 10/24/18 at 10:30; Stop 10/24/18 at 16:29 Albumin Human 200 ml @ 200 mls/hr 1X PRN PRN IV Hypotension; Start 10/24/18 at 10:30; Stop 10/24/18 at 16:29 Info (PHARMACY MONITORING -- do not chart) 1 each PRN DAILY PRN MC SEE COMMENTS ; Start 10/24/18 at 12:00; Status UNV Info (PHARMACY MONITORING -- do not chart) 1 each PRN DAILY PRN MC SEE COMMENTS ; Start 10/24/18 at 12:00; Status UNV Active Scripts Active Zofran (Ondansetron Hcl) 4 Mg Tablet 1 Tab PO Q6HRS Cephalexin 500 Mg Tablet 1 Tab PO BID Humalog (Insulin Lispro) 100 Unit/1 Ml Insuln.pen 5 Units SQ TIDWMEALS 28 Days Culturelle (Lactobacillus Rhamnosus Gg) 1 Each Cap.sprink 1 Cap PO BID 28 Days Lantus Solostar (Insulin Glargine,Hum.rec.anlog) 100 Unit/1 Ml Insuln.pen 15 Units SQ DAILY 28 Days Cipro (Ciprofloxacin Hcl) 250 Mg Tablet 250 Mg PO DAILY 10 Days Lactulose 20 Gm/30 Ml Solution 10 Gm PO PRN TID PRN 10 Days Aspirin Ec (Aspirin) 325 Mg Tablet.dr 325 Mg PO DAILYWBKFT 30 Days Reported Calcium Acetate 667 Mg Tablet 667 Mg PO BID Calcium Acetate 667 Mg Tablet 1,334 Mg PO TIDWMEALS Vitamin D (Cholecalciferol (Vitamin D3)) 50,000 Unit Capsule 50,000 Unit PO DAILY Tizanidine Hcl 2 Mg Capsule 2 Mg PO BID PRN Meclizine Hcl 25 Mg Tablet 1 Tab PO TID Voltaren (Diclofenac Sodium) 100 Gm Gel..gram. 1 Gm TP BID Hydrocodone-Apap 5-325 (Hydrocodone Bit/Acetaminophen) 1 Each Tablet 2 Tab PO PRN Q6HRS PRN Clonidine Hcl 0.2 Mg Tablet 0.2 Mg PO DAILY Gabapentin (Gabapentin) 100 Mg Capsule 100 Mg PO DAILY Zoloft (Sertraline Hcl) 50 Mg Tablet 75 Mg PO DAILY Renvela (Sevelamer Carbonate) 800 Mg Tablet 1 Tab PO TIDWMEALS Levothyroxine Sodium 175 Mcg Tablet 125 Mcg PO DAILYAC Dialyvite Callaghan D Tablet (Multivitamin, Min Cmb#25/Fa/D3) 1 Each Tablet 1 Each PO DAILY Metoprolol Succinate ( Xl ) (Metoprolol Succinate) 25 Mg Tab.er.24h 25 Mg PO DAILY Ondansetron Hcl 4 Mg Tablet 4 Mg PO Q6HRS PRN Zolpidem Tartrate 5 Mg Tablet 5 Mg PO PRN QHS PRN Famotidine 20 Mg Tablet 20 Mg PO DAILY Xifaxan (Rifaximin) 550 Mg Tablet 1 Tab PO BID Isosorbide Dinitrate 30 Mg Tablet 1 Tab PO DAILY Vitals/I & O Vital Sign - Last 24 Hours 10/23/18 10/23/18 10/23/18 10/23/18 15:00 19:59 19:59 20:12 Temp 97.5 97.4 97.4 97.5 97.4 97.4 Pulse 54 58 58 Resp B/P (MAP) 95/38 (57) 98/42 (60) 98/42 (60) Pulse Ox 91 98 91 O2 Delivery Room Air Nasal Cannula Nasal Cannula Room Air O2 Flow Rate 3.0 1.5 3.0 10/23/18 10/23/18 10/24/18 10/24/18 20:41 23:59 03:59 07:00 Temp 97.6 98.4 99.1 97.6 98.4 99.1 Pulse 58 60 65 Resp 18 20 B/P (MAP) 103/59 (74) 119/52 (74) 141/51 (81) Pulse Ox 91 100 100 100 O2 Delivery Room Air Nasal Cannula Nasal Cannula Nasal Cannula O2 Flow Rate 3.0 3.0 3.0 3.0 10/24/18 10/24/18 10/24/18 10/24/18 09:00 09:00 09:00 09:00 Pulse 65 65 65 Resp 18 B/P (MAP) 141/51 141/51 141/51 Pulse Ox 100 O2 Delivery Room Air 10/24/18 10:00 Resp 18 Pulse Ox 100 O2 Delivery Room Air O2 Flow Rate 3.0 Intake and Output 10/23/18 10/23/18 10/24/18 14:59 22:59 06:59 Intake Total 240 ml 120 ml Balance 240 ml 120 ml LUDWIG MARIE MD Oct 24, 2018 14:21
[2018-10-24 15:51] VITALS: BP_SYST 126; BP_SYST 128; BP_DIAS 35; BP_DIAS 42
[2018-10-24 19:59] VITALS: BP 156/44
[2018-10-24] MEDS: LORazepam 0.5 MG TABLET PO PRN (20:50)
[2018-10-24] MEDS: TEMAZEPAM 7.5 MG CAPSULE PO PRN (20:50)
[2018-10-24 23:59] VITALS: BP 127/48
[2018-10-25 03:59] VITALS: BP 147/40
[2018-10-25] MEDS: HYDROcodone/APAP 5/325MG 1 TAB TABLET PO PRN ×3 (05:04→19:12)
[2018-10-25] MEDS: LEVOTHYROXINE 125 MCG TABLET PO SCH (05:04)
[2018-10-25 05:06] LABS: BASO % 1 % (0-3); EOS # 0.1 x10^3/uL (0.0-0.7); EOS % 2 % (0-3); HEMATOCRIT 25.2 % (36.0-47.0); HEMOGLOBIN 8.2 g/dL (12.0-15.5); LYMPH # 0.4 x10^3/uL (1.0-4.8); LYMPH % 10 % (24-48); MEAN CORPUSCULAR HEMOGLOBIN 31 pg (25-35); MEAN CORPUSCULAR HGB CONC 33 g/dL (31-37); MEAN CORPUSCULAR VOLUME 93 fL (79-100); MONO # 0.4 x10^3/uL (0.0-1.1); MONO % 8 % (0-9); NEUT # 3.7 x10^3uL (1.8-7.7); NEUT % 80 % (31-73); PLATELET COUNT 61 x10^3/uL (140-400); RED CELL DISTRIBUTION WIDTH 16.8 % (11.5-14.5); WHITE BLOOD COUNT 4.6 x10^3/uL (4.0-11.0)
[2018-10-25 05:41] LABS: ALBUMIN 2.2 g/dL (3.4-5.0); ALBUMIN/GLOBULIN RATIO 0.5 (1.0-1.7); CALCIUM 7.8 mg/dL (8.5-10.1); GFR 15.3; POTASSIUM 3.8 mmol/L (3.5-5.1); TOTAL BILIRUBIN 0.8 mg/dL (0.2-1.0); TOTAL PROTEIN 6.3 g/dL (6.4-8.2)
[2018-10-25 07:00] VITALS: BP 154/43
[2018-10-25] MEDS: SEVELAMER CARBONATE 800 MG TABLET. PO SCH ×3 (08:07→17:14)
[2018-10-25] MEDS: PANTOPRAZOLE 40 MG TABLET.DR. PO SCH (08:07)
[2018-10-25] MEDS: ASPIRIN ENTERIC COATED 325 MG TABLET.DR. PO SCH (08:07)
[2018-10-25] MEDS: INSULIN LISPRO 300 UNITS/3 ML INSULN.PEN. SQ SCH ×6 (08:36→17:24)
[2018-10-25] MEDS: NYSTATIN TOPICAL POWDER 15GM BOTTLE. TP SCH ×2 (09:00→20:31)
[2018-10-25] MEDS: DICLOFENAC SODIUM 1% TOPICAL GEL 100GM TUBE. TP SCH ×2 (09:00→20:31)
[2018-10-25] MEDS: cloNIDine HCL 0.2 MG TABLET PO SCH (09:24)
[2018-10-25] MEDS: AMOXICILLIN/K CLAV 500/125MG TABLET. PO SCH ×2 (09:24→20:31)
[2018-10-25] MEDS: LACTOBACILLUS RHAMNOSUS GG 1 CAPSULE. PO SCH ×2 (09:25→20:31)
[2018-10-25] MEDS: GABAPENTIN 100 MG CAPSULE. PO SCH (09:26)
[2018-10-25] MEDS: ISOSORBIDE MONONITRATE ER 30 MG TAB.ER.24H PO SCH (09:26)
[2018-10-25] MEDS: SERTRALINE 50 MG TABLET. PO SCH (09:27)
[2018-10-25] MEDS: rifAXIMin 550 MG TABLET PO SCH ×2 (09:27→20:31)
[2018-10-25] MEDS: LACTULOSE 20 GM/30 ML SOLUTION. PO SCH ×3 (09:27→20:31)
[2018-10-25] MEDS: METOPROLOL SUCC 24HR ER 25 MG TAB.ER.24H. PO SCH (09:27)
[2018-10-25] MEDS: INSULIN GLARGINE 300 UNITS/3 ML INSULN.PEN. SQ SCH (09:46)
--- NOTE | 2018-10-25 10:24 | PDOC ---
Infectious Disease Note Subjective Subjective c/o little bit of a nosebleed Denies F/C/S/pain/N/V/SOA ROS ROS per HPI Vital Sign Vital Signs Vital Signs Date Time Temp Pulse Resp B/P (MAP) Pulse Ox O2 Delivery O2 Flow Rate FiO2 10/25/18 09:27 60 154/43 10/25/18 07:00 98.9 18 100 Nasal Cannula 2.0 98.9 Physical Exam PHYSICAL EXAM GENERAL: Propped up in bed, alert, eating HEENT: Oral cavity, pharynx is dry. NECK: Supple. LUNGS: Decreased at bases. HEART: S1 and S2. ABDOMEN: Obese, soft EXTREMITIES: Chronic changes left lower extremity, trace edema. RUE-AVF unremarkable. Right BKA SKIN: No rash NEUROLOGIC: Alert, responds appropriately PIV ok Labs Lab Laboratory Tests Test 10/24/18 12:22 10/24/18 15:45 10/24/18 21:33 10/25/18 04:30 Glucose (Fingerstick) 128 mg/dL (70-99) 130 mg/dL (70-99) 192 mg/dL (70-99) White Blood Count 4.6 x10^3/uL (4.0-11.0) Red Blood Count 2.70 x10^6/uL (3.50-5.40) Hemoglobin 8.2 g/dL (12.0-15.5) Hematocrit 25.2 % (36.0-47.0) Mean Corpuscular Volume 93 fL (79-100) Mean Corpuscular Hemoglobin 31 pg (25-35) Mean Corpuscular Hemoglobin Concent 33 g/dL (31-37) Red Cell Distribution Width 16.8 % (11.5-14.5) Platelet Count 61 x10^3/uL (140-400) Neutrophils (%) (Auto) 80 % (31-73) Lymphocytes (%) (Auto) 10 % (24-48) Monocytes (%) (Auto) 8 % (0-9) Eosinophils (%) (Auto) 2 % (0-3) Basophils (%) (Auto) 1 % (0-3) Neutrophils # (Auto) 3.7 x10^3uL (1.8-7.7) Lymphocytes # (Auto) 0.4 x10^3/uL (1.0-4.8) Monocytes # (Auto) 0.4 x10^3/uL (0.0-1.1) Eosinophils # (Auto) 0.1 x10^3/uL (0.0-0.7) Basophils # (Auto) 0.0 x10^3/uL (0.0-0.2) Sodium Level 140 mmol/L (136-145) Potassium Level 3.8 mmol/L (3.5-5.1) Chloride Level 103 mmol/L (98-107) Carbon Dioxide Level 30 mmol/L (21-32) Anion Gap 7 (6-14) Blood Urea Nitrogen 16 mg/dL (7-20) Creatinine 3.0 mg/dL (0.6-1.0) Estimated GFR (Cockcroft-Gault) 15.3 BUN/Creatinine Ratio 5 (6-20) Glucose Level 227 mg/dL (70-99) Calcium Level 7.8 mg/dL (8.5-10.1) Total Bilirubin 0.8 mg/dL (0.2-1.0) Aspartate Amino Transf (AST/SGOT) 21 U/L (15-37) Alanine Aminotransferase (ALT/SGPT) 14 U/L (14-59) Alkaline Phosphatase 94 U/L (46-116) Total Protein 6.3 g/dL (6.4-8.2) Albumin 2.2 g/dL (3.4-5.0) Albumin/Globulin Ratio 0.5 (1.0-1.7) Test 10/25/18 08:00 Glucose (Fingerstick) 237 mg/dL (70-99) Micro URINE CULTURE RES 1 Final Comment Mixed urogenital georgi Objective Assessment Right foot diabetic plantar ulcer, 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 Chronic kidney disease, on hemodialysis via AVF Cirrhosis. History of toe cellulitis and wound that is healed. Shoulder pain without swelling. ? rotator tear. Ortho is following Plan Plan of Care Augmentin Probiotics Supportive care ok to d/c. waiting placement f/u vascular as directed Attending Co-Sign The patient was seen and interviewed as well as examined at the bedside. The chart was reviewed. The case was discussed. Agree with the plan of care. JOELLE GUTIERREZ APRN Oct 25, 2018 10:24 ANUPAMA ALONZO MD Oct 25, 2018 11:36
[2018-10-25 11:00] VITALS: BP 149/48
--- NOTE | 2018-10-25 12:09 | PDOC ---
PROGRESS NOTES Chief Complaint Chief Complaint Cirrhosis Foot ulcer ESRD on HD DM2 History of Present Illness History of Present Illness Ms. Douglass is a 73 year old female with severe right shoulder pain and abdominal pain. Her pain to her abdomen fluctuates, no quigley in stool, Also 10/10 right shoulder pain, she can barely move the arm due to pain. she was last dialyzed on Friday, and abd pain had fluctuated in the past few days prior to admit. 10/17: Seen by vascular for right foot, ID for h/o infection, nephro for ESRD, general surgery for panniculitis surgery not recommensed due to high risk with cirrhosis . Seen by ortho for shoulder pain. 10/18: Right foot very painful today. No BM. Abdomen swelling. Tolerated diet ok. Seen on dialysis. MRI shoulder resulted - Rotator cuff tendinosis. There does appear to be a small full-thickness rotator cuff tear of the supraspinatus tendon, and a probable mild subscapularis tendon tear. Mild subdeltoid bursal fluid or bursitis. 10/19 WOUND PROBES TO THE BONE may need amputation , risk of significant complications given cirrhosis Nondisplaced chip fracture at the medial base of the left second toe 10/20 pt is thinking about amputation, grand daughter encouraged 10/20 She foot pain RIGHT, NOT IMPROVED, breast pain all on the right from her fall. should undergo BKA of RLE. Labs reviewed. D/W nursing staff 10/21 DATE OF SURGERY: 10/21/201810/23 still very somnolent, will reduce pain meds /3 more alert today appetite fair SURGEON: Xochilt Child M.D. SPIRITUAL COUNSELOR: Deanna Merino. 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 POSTOPERATIVE DIAGNOSES: Right foot infected gangrene and nonhealing wounds. OPERATION PERFORMED: Right [id number] amputation. BLOOD LOSS: 50 mL. ANESTHESIA USED: General anesthesia. 10/22 moderate post-op pain persists, pt somnolent albumin very low at 1.7 10/23 very somnolent reducing narcotics today 3/ SEEMS MORE DEPRESSED AND TEARFUL 10/25 depression still moderate Plan: ortho FOLLOWING GI to see for cirrhosis Nephro to see for ESRD ID for history of MDRO infection - pseudomonas ct right foot 10/19 PERSONALLY REVIEWED IMAGES in my opinion amputation needed , wound unlikely to heal otherwise Vitals Vitals Vital Signs Date Time Temp Pulse Resp B/P (MAP) Pulse Ox O2 Delivery O2 Flow Rate FiO2 10/25/18 11:00 98.4 60 18 149/48 (81) 99 Nasal Cannula 2.0 98.4 Physical Exam Physical Exam GENERAL: Propped up in bed, alert, eating HEENT: Oral cavity, pharynx is dry. NECK: Supple. LUNGS: Decreased at bases. HEART: S1 and S2. ABDOMEN: Obese, soft EXTREMITIES: Chronic changes left lower extremity, trace edema. RUE-AVF unremarkable. Right BKA SKIN: No rash NEUROLOGIC: Alert, responds appropriately PIV ok General: Alert, Oriented X3, Cooperative, No acute distress, mild distress, Other (groggy) Heart: Regular rate, Normal S1, Normal S2, No murmurs, Gallops Lungs: Clear Abdomen: Normal bowel sounds, Soft, No hepatosplenomegaly, Other (chronic skin changes to pannus) Extremities: No cyanosis, Other (the right shoulder is tender to palpation around the greater tuberosity and rotator cuff. The gross alignment is normal and there is no effusion or erythema. Passive range of motion is very limited, and was painful at the extremes, only about 40 forward flexion and 40 of abduction before it got quite painful and she said "I'm going to hit you if you continue". She has a pulsatile dialysis shunt in the right upper arm near the distal biceps, anterior humerus antecubital fossa region. The biceps tendon seems to be intact to resisted motion, and there does not seem to be pain or deformity at the elbow. Her distal sensation and motor function are preserved.) Skin: Other (right foot dressing DRY) Labs LABS Laboratory Tests Test 10/24/18 12:22 10/24/18 15:45 10/24/18 21:33 10/25/18 04:30 Glucose (Fingerstick) 128 mg/dL (70-99) 130 mg/dL (70-99) 192 mg/dL (70-99) White Blood Count 4.6 x10^3/uL (4.0-11.0) Red Blood Count 2.70 x10^6/uL (3.50-5.40) Hemoglobin 8.2 g/dL (12.0-15.5) Hematocrit 25.2 % (36.0-47.0) Mean Corpuscular Volume 93 fL (79-100) Mean Corpuscular Hemoglobin 31 pg (25-35) Mean Corpuscular Hemoglobin Concent 33 g/dL (31-37) Red Cell Distribution Width 16.8 % (11.5-14.5) Platelet Count 61 x10^3/uL (140-400) Neutrophils (%) (Auto) 80 % (31-73) Lymphocytes (%) (Auto) 10 % (24-48) Monocytes (%) (Auto) 8 % (0-9) Eosinophils (%) (Auto) 2 % (0-3) Basophils (%) (Auto) 1 % (0-3) Neutrophils # (Auto) 3.7 x10^3uL (1.8-7.7) Lymphocytes # (Auto) 0.4 x10^3/uL (1.0-4.8) Monocytes # (Auto) 0.4 x10^3/uL (0.0-1.1) Eosinophils # (Auto) 0.1 x10^3/uL (0.0-0.7) Basophils # (Auto) 0.0 x10^3/uL (0.0-0.2) Sodium Level 140 mmol/L (136-145) Potassium Level 3.8 mmol/L (3.5-5.1) Chloride Level 103 mmol/L (98-107) Carbon Dioxide Level 30 mmol/L (21-32) Anion Gap 7 (6-14) Blood Urea Nitrogen 16 mg/dL (7-20) Creatinine 3.0 mg/dL (0.6-1.0) Estimated GFR (Cockcroft-Gault) 15.3 BUN/Creatinine Ratio 5 (6-20) Glucose Level 227 mg/dL (70-99) Calcium Level 7.8 mg/dL (8.5-10.1) Total Bilirubin 0.8 mg/dL (0.2-1.0) Aspartate Amino Transf (AST/SGOT) 21 U/L (15-37) Alanine Aminotransferase (ALT/SGPT) 14 U/L (14-59) Alkaline Phosphatase 94 U/L (46-116) Total Protein 6.3 g/dL (6.4-8.2) Albumin 2.2 g/dL (3.4-5.0) Albumin/Globulin Ratio 0.5 (1.0-1.7) Test 10/25/18 08:00 Glucose (Fingerstick) 237 mg/dL (70-99) Assessment and Plan Assessmemt and Plan Problems Medical Problems: (1) Cirrhosis of liver with ascites Status: Acute (2) Hyperglycemia Status: Acute (3) Open wound of right foot Status: Acute (4) UTI (urinary tract infection) Status: Acute Comment Review of Relevant I have reviewed the following items karyn (where applicable) has been applied. Labs Laboratory Tests Test 10/23/18 13:05 10/23/18 17:06 10/23/18 20:41 10/24/18 05:55 Ammonia 11 mcmol/L (11-34) Glucose (Fingerstick) 126 mg/dL (70-99) 127 mg/dL (70-99) White Blood Count 6.4 x10^3/uL (4.0-11.0) Red Blood Count 2.82 x10^6/uL (3.50-5.40) Hemoglobin 8.8 g/dL (12.0-15.5) Hematocrit 26.0 % (36.0-47.0) Mean Corpuscular Volume 92 fL (79-100) Mean Corpuscular Hemoglobin 31 pg (25-35) Mean Corpuscular Hemoglobin Concent 34 g/dL (31-37) Red Cell Distribution Width 16.4 % (11.5-14.5) Platelet Count 77 x10^3/uL (140-400) Neutrophils (%) (Auto) 81 % (31-73) Lymphocytes (%) (Auto) 9 % (24-48) Monocytes (%) (Auto) 6 % (0-9) Eosinophils (%) (Auto) 3 % (0-3) Basophils (%) (Auto) 1 % (0-3) Neutrophils # (Auto) 5.2 x10^3uL (1.8-7.7) Lymphocytes # (Auto) 0.6 x10^3/uL (1.0-4.8) Monocytes # (Auto) 0.4 x10^3/uL (0.0-1.1) Eosinophils # (Auto) 0.2 x10^3/uL (0.0-0.7) Basophils # (Auto) 0.0 x10^3/uL (0.0-0.2) Sodium Level 138 mmol/L (136-145) Potassium Level 3.9 mmol/L (3.5-5.1) Chloride Level 100 mmol/L (98-107) Carbon Dioxide Level 30 mmol/L (21-32) Anion Gap 8 (6-14) Blood Urea Nitrogen 27 mg/dL (7-20) Creatinine 4.1 mg/dL (0.6-1.0) Estimated GFR (Cockcroft-Gault) 10.7 Glucose Level 150 mg/dL (70-99) Calcium Level 8.1 mg/dL (8.5-10.1) Test 10/24/18 07:22 10/24/18 12:22 10/24/18 15:45 10/24/18 21:33 Glucose (Fingerstick) 147 mg/dL (70-99) 128 mg/dL (70-99) 130 mg/dL (70-99) 192 mg/dL (70-99) Test 10/25/18 04:30 10/25/18 08:00 White Blood Count 4.6 x10^3/uL (4.0-11.0) Red Blood Count 2.70 x10^6/uL (3.50-5.40) Hemoglobin 8.2 g/dL (12.0-15.5) Hematocrit 25.2 % (36.0-47.0) Mean Corpuscular Volume 93 fL (79-100) Mean Corpuscular Hemoglobin 31 pg (25-35) Mean Corpuscular Hemoglobin Concent 33 g/dL (31-37) Red Cell Distribution Width 16.8 % (11.5-14.5) Platelet Count 61 x10^3/uL (140-400) Neutrophils (%) (Auto) 80 % (31-73) Lymphocytes (%) (Auto) 10 % (24-48) Monocytes (%) (Auto) 8 % (0-9) Eosinophils (%) (Auto) 2 % (0-3) Basophils (%) (Auto) 1 % (0-3) Neutrophils # (Auto) 3.7 x10^3uL (1.8-7.7) Lymphocytes # (Auto) 0.4 x10^3/uL (1.0-4.8) Monocytes # (Auto) 0.4 x10^3/uL (0.0-1.1) Eosinophils # (Auto) 0.1 x10^3/uL (0.0-0.7) Basophils # (Auto) 0.0 x10^3/uL (0.0-0.2) Sodium Level 140 mmol/L (136-145) Potassium Level 3.8 mmol/L (3.5-5.1) Chloride Level 103 mmol/L (98-107) Carbon Dioxide Level 30 mmol/L (21-32) Anion Gap 7 (6-14) Blood Urea Nitrogen 16 mg/dL (7-20) Creatinine 3.0 mg/dL (0.6-1.0) Estimated GFR (Cockcroft-Gault) 15.3 BUN/Creatinine Ratio 5 (6-20) Glucose Level 227 mg/dL (70-99) Calcium Level 7.8 mg/dL (8.5-10.1) Total Bilirubin 0.8 mg/dL (0.2-1.0) Aspartate Amino Transf (AST/SGOT) 21 U/L (15-37) Alanine Aminotransferase (ALT/SGPT) 14 U/L (14-59) Alkaline Phosphatase 94 U/L (46-116) Total Protein 6.3 g/dL (6.4-8.2) Albumin 2.2 g/dL (3.4-5.0) Albumin/Globulin Ratio 0.5 (1.0-1.7) Glucose (Fingerstick) 237 mg/dL (70-99) Laboratory Tests Test 10/24/18 12:22 10/24/18 15:45 10/24/18 21:33 10/25/18 04:30 Glucose (Fingerstick) 128 mg/dL (70-99) 130 mg/dL (70-99) 192 mg/dL (70-99) White Blood Count 4.6 x10^3/uL (4.0-11.0) Red Blood Count 2.70 x10^6/uL (3.50-5.40) Hemoglobin 8.2 g/dL (12.0-15.5) Hematocrit 25.2 % (36.0-47.0) Mean Corpuscular Volume 93 fL (79-100) Mean Corpuscular Hemoglobin 31 pg (25-35) Mean Corpuscular Hemoglobin Concent 33 g/dL (31-37) Red Cell Distribution Width 16.8 % (11.5-14.5) Platelet Count 61 x10^3/uL (140-400) Neutrophils (%) (Auto) 80 % (31-73) Lymphocytes (%) (Auto) 10 % (24-48) Monocytes (%) (Auto) 8 % (0-9) Eosinophils (%) (Auto) 2 % (0-3) Basophils (%) (Auto) 1 % (0-3) Neutrophils # (Auto) 3.7 x10^3uL (1.8-7.7) Lymphocytes # (Auto) 0.4 x10^3/uL (1.0-4.8) Monocytes # (Auto) 0.4 x10^3/uL (0.0-1.1) Eosinophils # (Auto) 0.1 x10^3/uL (0.0-0.7) Basophils # (Auto) 0.0 x10^3/uL (0.0-0.2) Sodium Level 140 mmol/L (136-145) Potassium Level 3.8 mmol/L (3.5-5.1) Chloride Level 103 mmol/L (98-107) Carbon Dioxide Level 30 mmol/L (21-32) Anion Gap 7 (6-14) Blood Urea Nitrogen 16 mg/dL (7-20) Creatinine 3.0 mg/dL (0.6-1.0) Estimated GFR (Cockcroft-Gault) 15.3 BUN/Creatinine Ratio 5 (6-20) Glucose Level 227 mg/dL (70-99) Calcium Level 7.8 mg/dL (8.5-10.1) Total Bilirubin 0.8 mg/dL (0.2-1.0) Aspartate Amino Transf (AST/SGOT) 21 U/L (15-37) Alanine Aminotransferase (ALT/SGPT) 14 U/L (14-59) Alkaline Phosphatase 94 U/L (46-116) Total Protein 6.3 g/dL (6.4-8.2) Albumin 2.2 g/dL (3.4-5.0) Albumin/Globulin Ratio 0.5 (1.0-1.7) Test 10/25/18 08:00 Glucose (Fingerstick) 237 mg/dL (70-99) Microbiology 10/15/18 Urine Culture - Final, Complete 10/15/18 Urine Culture Result 1 (DARIN) - Final, Complete Medications Current Medications Morphine Sulfate (Morphine Sulfate) 4 mg PRN Q15MIN PRN IV/SQ PAIN GREATER THAN 3/10 Last administered on 10/15/18at 18:50; Start 10/15/18 at 14:15; Stop at 14:14; Status DC Insulin Human Regular (HumuLIN R VIAL) 10 unit 1X ONCE IV ; Start 10/15/18 at 16:45; Stop 10/15/18 at 16:46; Status Cancel Insulin Human Regular (HumuLIN R VIAL) 5 unit 1X ONCE IV Last administered on 10/15/18at 17:04; Start 10/15/18 at 17:15; Stop 10/15/18 at 17:16; Status DC Ondansetron HCl (Zofran) 4 mg PRN Q8HRS PRN IV NAUSEA/VOMITING; Start 10/15/18 at 19:15; Stop 10/16/18 at 19:14; Status DC Morphine Sulfate (Morphine Sulfate) 4 mg PRN Q2HR PRN IV PAIN; Start 10/15/18 at 19:15; Stop 10/16/18 at 19:14; Status DC Insulin Human Lispro (HumaLOG) 0-7 UNITS TIDWMEALS SQ Last administered on at 12:04; Start 10/16/18 at 08:00 Dextrose (Dextrose 50%-Water Syringe) 12.5 gm PRN Q15MIN PRN IV SEE COMMENTS; Start 10/15/18 at 19:15 Ceftriaxone Sodium (Rocephin) 1 gm Q24H IVP Last administered on 10/15/18at 22: 27; Start 10/15/18 at 20:00; Stop 10/16/18 at 10:39; Status DC Zolpidem Tartrate (Ambien) 5 mg PRN QHS PRN PO INSOMNIA Last administered on at 22:27; Start 10/15/18 at 22:15; Stop 10/16/18 at 22:30; Status DC Aspirin (Ecotrin) 325 mg DAILYWBKFT PO Last administered on 10/25/18at 08:07; Start 10/16/18 at 10:00 Clonidine HCl (Catapres) 0.2 mg DAILY PO Last administered on 10/25/18 09:24; Start 10/16/18 at 09:00 Diclofenac Sodium (Voltaren) 1 ronel BID TP Last administered on 10/24/18 09:19; Start 10/16/18 at 09:00 Famotidine (Pepcid) 20 mg QODAY PO ; Start 10/16/18 at 09:00; Stop 10/16/18 at 09:35; Status DC Gabapentin (Neurontin) 100 mg DAILY PO Last administered on 10/25/18 09:26; Start 10/16/18 at 09:00 Acetaminophen/ Hydrocodone Bitart (Lortab 5/325) 2 tab PRN Q6HRS PRN PO PAIN Last administered on 10/23/18 11:54; Start 10/16/18 at 08:30; Stop 10/23/18 at 15 :59; Status DC Insulin Glargine (Lantus) 15 units DAILY SQ Last administered on 10/25/18 09:46 ; Start 10/16/18 at 09:00 Insulin Human Lispro (HumaLOG) 5 units TIDWMEALS SQ Last administered on 12:05; Start 10/16/18 at 12:00 Lactobacillus Rhamnosus (Culturelle) 1 cap BID PO Last administered on 09:25; Start 10/16/18 at 09:00 Lactulose (Lactulose) 10 gm PRN TID PRN PO CONSTIPATION; Start 10/16/18 at 08: 30; Stop 10/16/18 at 09:35; Status DC Levothyroxine Sodium (Synthroid) 125 mcg DAILY06 PO Last administered on 05:04; Start 10/16/18 at 09:00 Metoprolol Succinate (Toprol Xl) 25 mg DAILY PO Last administered on 10/25/18 09:27; Start 10/16/18 at 09:00 Rifaximin (Xifaxan) 550 mg BID PO Last administered on 10/16/18 13:40; Start 10/16/18 at 09:00; Stop 10/16/18 at 16:03; Status DC Sertraline HCl (Zoloft) 75 mg DAILY PO Last administered on 10/25/18 09:27; Start 10/16/18 at 09:00 Sevelamer Carbonate (Renvela) 800 mg TIDWMEALS PO Last administered on 12:05; Start 10/16/18 at 12:00 Isosorbide Mononitrate (Imdur) 30 mg DAILY PO Last administered on 10/25/18 09: 26; Start 10/16/18 at 09:00 Lactulose (Lactulose) 10 gm TID PO Last administered on 10/25/18 09:27; Start 10/16/18 at 14:00 Rifaximin (Xifaxan) 550 mg Q12HR PO Last administered on 10/25/18 09:27; Start 10/16/18 at 10:00 Pantoprazole Sodium (Protonix) 40 mg DAILYAC PO Last administered on 10/25/18 08:07; Start 10/16/18 at 10:00 Piperacillin Sod/ Tazobactam Sod 2.25 gm/Sodium Chloride 50 ml @ 100 mls/hr Q8HRS IV Last administered on 10/22/18at 06:07; Start 10/16/18 at 11:00; Stop at 11:21; Status DC Vancomycin HCl (Vanco Per Pharmacy) 1 each PRN DAILY PRN MC SEE COMMENTS Last administered on 10/21/18at 16:25; Start 10/16/18 at 10:45; Stop 10/22/18 at 11:22 ; Status DC Vancomycin HCl 1.75 gm/Sodium Chloride 500 ml @ 250 mls/hr 1X ONCE IV Last administered on 10/16/18at 15:24; Start 10/16/18 at 11:00; Stop 10/16/18 at 12:59 ; Status DC Vancomycin HCl (Vancomycin Random Level) 1 each 1X ONCE MC Last administered on 10/17/18at 05:05; Start 10/17/18 at 06:00; Stop 10/17/18 at 06:01; Status DC Iohexol (Omnipaque 350 Mg/ml) 100 ml 1X ONCE IV ; Start 10/16/18 at 17:15; Stop 10/16/18 at 17:16; Status DC Info (CONTRAST GIVEN -- Rx MONITORING) 1 each PRN DAILY PRN MC SEE COMMENTS; Start 10/16/18 at 17:30; Stop 10/18/18 at 17:29; Status DC Nystatin (Nystop) 1 ronel BID TP Last administered on 10/24/18 20:52; Start 10/16 at 21:30 Temazepam (Restoril) 7.5 mg PRN QHS PRN PO INSOMNIA Last administered on 20:50; Start 10/16/18 at 22:30 Sodium Chloride 1,000 ml @ 1,000 mls/hr Q1H PRN IV hypotension; Start 10/17/18 at 09:28; Stop 10/17/18 at 15:27; Status DC Albumin Human 200 ml @ 200 mls/hr 1X PRN PRN IV Hypotension; Start 10/17/18 at 09:30; Stop 10/17/18 at 15:29; Status DC Sodium Chloride 1,000 ml @ 400 mls/hr Q2H30M PRN IV PATENCY; Start 10/17/18 at 09:28; Stop 10/17/18 at 21:27; Status DC Info (PHARMACY MONITORING -- do not chart) 1 each PRN DAILY PRN MC SEE COMMENTS ; Start 10/17/18 at 09:30; Stop 10/17/18 at 09:34; Status DC Info (PHARMACY MONITORING -- do not chart) 1 each PRN DAILY PRN MC SEE COMMENTS ; Start 10/17/18 at 09:30 Vancomycin HCl 500 mg/Sodium Chloride 100 ml @ 100 mls/hr QTUTHSA IV Last administered on 10/20/18at 20:59; Start 10/17/18 at 16:00; Stop 10/22/18 at 11:21 ; Status DC Sodium Chloride 250 ml @ 0 mls/hr 1X PRN PRN IV SBP <= 80; Start 10/18/18 at 12 :30 Methylprednisolone Acetate (DEPO-Medrol 40MG VIAL) 40 mg 1X ONCE IM Last administered on 10/18/18at 14:40; Start 10/18/18 at 13:45; Stop 10/18/18 at 13:46 ; Status DC Bupivacaine HCl (Sensorcaine-Mpf 0.25%) 10 ml 1X ONCE IJ Last administered on 10/18/18at 14:40; Start 10/18/18 at 13:45; Stop 10/18/18 at 13:46; Status DC Lorazepam (Ativan) 0.5 mg PRN Q8HRS PRN PO ANXIETY / AGITATION 1ST CHOICE Last administered on 10/24/18at 20:50; Start 10/19/18 at 13:15 Alprazolam (Xanax) 0.25 mg PRN Q8HRS PRN PO ANXIETY / AGITATION 2ND CHOICE Last administered on 10/23/18at 03:32; Start 10/19/18 at 13:30 Sodium Chloride 1,000 ml @ 1,000 mls/hr Q1H PRN IV hypotension; Start 10/20/18 at 08:29; Stop 10/20/18 at 14:28; Status DC Sodium Chloride 1,000 ml @ 400 mls/hr Q2H30M PRN IV PATENCY; Start 10/20/18 at 08:29; Stop 10/20/18 at 20:30; Status DC Info (PHARMACY MONITORING -- do not chart) 1 each PRN DAILY PRN MC SEE COMMENTS ; Start 10/20/18 at 08:30; Status UNV Info (PHARMACY MONITORING -- do not chart) 1 each PRN DAILY PRN MC SEE COMMENTS ; Start 10/20/18 at 08:30; Status UNV Lidocaine HCl (Lidocaine 1% 20ml Vial) 20 ml 1X ONCE INJ ; Start 10/20/18 at 08 :45; Stop 10/20/18 at 08:46; Status DC Lidocaine HCl (Xylocaine-Mpf 1% 2ml Vial) 2 ml STK-MED ONCE .ROUTE ; Start 10/20 at 08:55; Stop 10/20/18 at 08:56; Status DC Ondansetron HCl (Zofran) 4 mg PRN Q6HRS PRN IV NAUSEA/VOMITING Last administered on 10/20/18at 21:00; Start 10/20/18 at 16:30 Fentanyl Citrate (Fentanyl 2ml Vial) 25 mcg PRN Q5MIN PRN IV MILD PAIN; Start 10/21/18 at 07:00; Stop 10/22/18 at 06:59; Status DC Fentanyl Citrate (Fentanyl 2ml Vial) 50 mcg PRN Q5MIN PRN IV MODERATE TO SEVERE PAIN Last administered on 10/21/18at 14:51; Start 10/21/18 at 07:00; Stop 10/22/18 at 06:59; Status DC Morphine Sulfate (Morphine Sulfate) 1 mg PRN Q10MIN PRN IV SEVERE PAIN; Start 10/21/18 at 07:00; Stop 10/21/18 at 14:26; Status DC Hydromorphone HCl (Dilaudid) 0.5 mg PRN Q10MIN PRN IV SEV PAIN, Second choice; Start 10/21/18 at 07:00; Stop 10/22/18 at 06:59; Status DC Prochlorperazine Edisylate (Compazine) 5 mg PACU PRN PRN IV NAUSEA, MRX1; Start 10/21/18 at 07:00; Stop 10/22/18 at 06:59; Status DC Sodium Chloride 1,000 ml @ 0 mls/hr Q0M IV ; Start 10/21/18 at 07:00 Fentanyl Citrate (Fentanyl 2ml Vial) 100 mcg STK-MED ONCE .ROUTE ; Start at 11:41; Stop 10/21/18 at 11:42; Status DC Ketamine HCl (Ketamine) 50 mg STK-MED ONCE .ROUTE ; Start 10/21/18 at 11:41; Stop 10/21/18 at 11:42; Status DC Sevoflurane (Ultane) 60 ml STK-MED ONCE IH ; Start 10/21/18 at 11:41; Stop 10/21 at 11:42; Status DC Propofol 20 ml @ As Directed STK-MED ONCE IV ; Start 10/21/18 at 11:41; Stop at 11:42; Status DC Dexamethasone Sodium Phosphate (Decadron) 20 mg STK-MED ONCE .ROUTE ; Start at 11:41; Stop 10/21/18 at 11:42; Status DC Ondansetron HCl (Zofran) 4 mg STK-MED ONCE .ROUTE ; Start 10/21/18 at 11:41; Stop 10/21/18 at 11:42; Status DC Lidocaine HCl (Lidocaine Pf 2% Vial) 5 ml STK-MED ONCE .ROUTE ; Start 10/21/18 at 11:41; Stop 10/21/18 at 11:42; Status DC Phenylephrine HCl (Taran-Synephrine Inj) 10 mg STK-MED ONCE .ROUTE ; Start at 11:43; Stop 10/21/18 at 11:44; Status DC Bacitracin 44132 unit/Sodium Chloride 500 ml @ 500 mls/hr 1X ONCE IRR Last administered on 10/21/18at 13:26; Start 10/21/18 at 12:43; Stop 10/21/18 at 13:42 ; Status DC Ephedrine Sulfate (Akovaz) 50 mg STK-MED ONCE .ROUTE ; Start 10/21/18 at 13:05; Stop 10/21/18 at 13:06; Status DC Morphine Sulfate (Morphine Sulfate) 2 mg PRN Q2HR PRN IV PAIN Last administered on 10/21/18at 19:44; Start 10/21/18 at 14:15; Stop 10/23/18 at 16:00 ; Status DC Fentanyl Citrate (Fentanyl 2ml Vial) 100 mcg STK-MED ONCE .ROUTE ; Start at 14:23; Stop 10/21/18 at 14:24; Status DC Fentanyl Citrate (Fentanyl 2ml Vial) 100 mcg STK-MED ONCE .ROUTE ; Start at 14:49; Stop 10/21/18 at 14:50; Status DC Lidocaine HCl (Xylocaine-Mpf 1% 2ml Vial) 2 ml STK-MED ONCE .ROUTE ; Start 10/20 at 09:00; Stop 10/22/18 at 09:09; Status DC Info (PHARMACY MONITORING -- do not chart) 1 each PRN DAILY PRN MC SEE COMMENTS ; Start 10/22/18 at 10:15; Status UNV Info (PHARMACY MONITORING -- do not chart) 1 each PRN DAILY PRN MC SEE COMMENTS ; Start 10/22/18 at 10:15; Status UNV Lidocaine HCl (Xylocaine-Mpf 1% 2ml Vial) 2 ml STK-MED ONCE .ROUTE ; Start 10/22 at 10:16; Stop 10/22/18 at 10:17; Status DC Amoxicillin/ Clavulanate Potassium (Augmentin 500/ 125mg) 1 tab BID PO Last administered on 10/25/18at 09:24; Start 10/22/18 at 12:00 Lidocaine HCl (Xylocaine-Mpf 1% 2ml Vial) 2 ml STK-MED ONCE .ROUTE ; Start 10/22 at 10:30; Stop 10/23/18 at 09:02; Status DC Acetaminophen/ Hydrocodone Bitart (Lortab 5/325) 1 tab PRN Q6HRS PRN PO PAIN Last administered on 10/25/18at 10:52; Start 10/23/18 at 16:00 Sodium Chloride 1,000 ml @ 1,000 mls/hr Q1H PRN IV hypotension; Start 10/24/18 at 10:30; Stop 10/24/18 at 16:29; Status DC Albumin Human 200 ml @ 200 mls/hr 1X PRN PRN IV Hypotension; Start 10/24/18 at 10:30; Stop 10/24/18 at 16:29; Status DC Info (PHARMACY MONITORING -- do not chart) 1 each PRN DAILY PRN MC SEE COMMENTS ; Start 10/24/18 at 12:00; Status UNV Info (PHARMACY MONITORING -- do not chart) 1 each PRN DAILY PRN MC SEE COMMENTS ; Start 10/24/18 at 12:00; Status UNV Active Scripts Active Zofran (Ondansetron Hcl) 4 Mg Tablet 1 Tab PO Q6HRS Cephalexin 500 Mg Tablet 1 Tab PO BID Humalog (Insulin Lispro) 100 Unit/1 Ml Insuln.pen 5 Units SQ TIDWMEALS 28 Days Culturelle (Lactobacillus Rhamnosus Gg) 1 Each Cap.sprink 1 Cap PO BID 28 Days Lantus Solostar (Insulin Glargine,Hum.rec.anlog) 100 Unit/1 Ml Insuln.pen 15 Units SQ DAILY 28 Days Cipro (Ciprofloxacin Hcl) 250 Mg Tablet 250 Mg PO DAILY 10 Days Lactulose 20 Gm/30 Ml Solution 10 Gm PO PRN TID PRN 10 Days Aspirin Ec (Aspirin) 325 Mg Tablet.dr 325 Mg PO DAILYWBKFT 30 Days Reported Calcium Acetate 667 Mg Tablet 667 Mg PO BID Calcium Acetate 667 Mg Tablet 1,334 Mg PO TIDWMEALS Vitamin D (Cholecalciferol (Vitamin D3)) 50,000 Unit Capsule 50,000 Unit PO DAILY Tizanidine Hcl 2 Mg Capsule 2 Mg PO BID PRN Meclizine Hcl 25 Mg Tablet 1 Tab PO TID Voltaren (Diclofenac Sodium) 100 Gm Gel..gram. 1 Gm TP BID Hydrocodone-Apap 5-325 (Hydrocodone Bit/Acetaminophen) 1 Each Tablet 2 Tab PO PRN Q6HRS PRN Clonidine Hcl 0.2 Mg Tablet 0.2 Mg PO DAILY Gabapentin (Gabapentin) 100 Mg Capsule 100 Mg PO DAILY Zoloft (Sertraline Hcl) 50 Mg Tablet 75 Mg PO DAILY Renvela (Sevelamer Carbonate) 800 Mg Tablet 1 Tab PO TIDWMEALS Levothyroxine Sodium 175 Mcg Tablet 125 Mcg PO DAILYAC Dialyvite Cankton D Tablet (Multivitamin, Min Cmb#25/Fa/D3) 1 Each Tablet 1 Each PO DAILY Metoprolol Succinate ( Xl ) (Metoprolol Succinate) 25 Mg Tab.er.24h 25 Mg PO DAILY Ondansetron Hcl 4 Mg Tablet 4 Mg PO Q6HRS PRN Zolpidem Tartrate 5 Mg Tablet 5 Mg PO PRN QHS PRN Famotidine 20 Mg Tablet 20 Mg PO DAILY Xifaxan (Rifaximin) 550 Mg Tablet 1 Tab PO BID Isosorbide Dinitrate 30 Mg Tablet 1 Tab PO DAILY Vitals/I & O Vital Sign - Last 24 Hours 10/24/18 10/24/18 10/24/18 10/24/18 15:51 15:51 19:01 19:59 Temp 98.1 98.1 Pulse 69 69 Resp 18 18 17 B/P (MAP) 128/35 (66) 126/42 (70) 156/44 (81) Pulse Ox 99 99 100 O2 Delivery Nasal Cannula Room Air Room Air O2 Flow Rate 3.0 10/24/18 10/24/18 10/25/18 10/25/18 20:00 23:59 03:59 05:04 Temp 100.6 98.4 100.6 98.4 Pulse 68 66 Resp 18 17 21 B/P (MAP) 127/48 (74) 147/40 (75) Pulse Ox 98 98 O2 Delivery Room Air Nasal Cannula Nasal Cannula Nasal Cannula O2 Flow Rate 2.0 2.0 10/25/18 10/25/18 10/25/18 10/25/18 06:04 07:00 09:24 09:26 Temp 98.9 98.9 Pulse 60 60 60 Resp 20 18 B/P (MAP) 154/43 (80) 154/43 154/43 Pulse Ox 100 O2 Delivery Nasal Cannula Nasal Cannula O2 Flow Rate 2.0 10/25/18 10/25/18 10/25/18 09:27 10:52 11:00 Temp 98.4 98.4 Pulse 60 60 Resp 18 18 B/P (MAP) 154/43 149/48 (81) Pulse Ox 100 99 O2 Delivery Room Air Nasal Cannula O2 Flow Rate 2.0 2.0 Intake and Output 10/24/18 10/24/18 10/25/18 15:00 23:00 07:00 Intake Total 100 ml 150 ml Balance 100 ml 150 ml FEROZ KELLY MD Oct 25, 2018 12:09
[2018-10-25 15:00] VITALS: BP 155/46
[2018-10-25 19:00] VITALS: BP 129/43
[2018-10-25 23:00] VITALS: BP 140/52
[2018-10-26 03:00] VITALS: BP 135/50
[2018-10-26] MEDS: HYDROcodone/APAP 5/325MG 1 TAB TABLET PO PRN ×2 (03:20→10:24)
[2018-10-26] MEDS: LEVOTHYROXINE 125 MCG TABLET PO SCH (05:43)
[2018-10-26 07:00] VITALS: BP 140/43
[2018-10-26] MEDS: ASPIRIN ENTERIC COATED 325 MG TABLET.DR. PO SCH (08:00)
--- NOTE | 2018-10-26 08:50 | PDOC ---
Provider Note Provider Note Vascular S: Pt seen in room, she is tearful today O:Drowsy VSS, afebrile Right BKA stump dressing dry and intact with knee protector in place H/H stable A/P: POD #5 Right BKA Continue PT/OT Daily dry gauze dressing changes. Ok for patient to transfer to rehab/SNF today, follow up 11/12/2018 2:30 with kira Wilson in chart. TREVON ALICEA APRN Oct 26, 2018 08:50
[2018-10-26] MEDS: NYSTATIN TOPICAL POWDER 15GM BOTTLE. TP SCH (09:00)
[2018-10-26] MEDS: LACTULOSE 20 GM/30 ML SOLUTION. PO SCH ×2 (09:00→14:00)
[2018-10-26] MEDS: DICLOFENAC SODIUM 1% TOPICAL GEL 100GM TUBE. TP SCH (09:00)
[2018-10-26] MEDS: AMOXICILLIN/K CLAV 500/125MG TABLET. PO SCH (09:03)
[2018-10-26] MEDS: rifAXIMin 550 MG TABLET PO SCH (09:04)
[2018-10-26] MEDS: cloNIDine HCL 0.2 MG TABLET PO SCH (09:04)
[2018-10-26] MEDS: SERTRALINE 50 MG TABLET. PO SCH (09:04)
[2018-10-26] MEDS: ISOSORBIDE MONONITRATE ER 30 MG TAB.ER.24H PO SCH (09:05)
[2018-10-26] MEDS: PANTOPRAZOLE 40 MG TABLET.DR. PO SCH (09:05)
[2018-10-26] MEDS: METOPROLOL SUCC 24HR ER 25 MG TAB.ER.24H. PO SCH (09:05)
[2018-10-26] MEDS: LACTOBACILLUS RHAMNOSUS GG 1 CAPSULE. PO SCH (09:05)
[2018-10-26] MEDS: SEVELAMER CARBONATE 800 MG TABLET. PO SCH ×3 (09:05→17:25)
[2018-10-26] MEDS: GABAPENTIN 100 MG CAPSULE. PO SCH (09:05)
[2018-10-26] MEDS: INSULIN GLARGINE 300 UNITS/3 ML INSULN.PEN. SQ SCH (09:21)
[2018-10-26] MEDS: INSULIN LISPRO 300 UNITS/3 ML INSULN.PEN. SQ SCH ×6 (09:22→17:28)
--- NOTE | 2018-10-26 10:04 | PDOC ---
PROGRESS NOTES Chief Complaint Chief Complaint Cirrhosis Foot ulcer COMPLEX, DEEP POST BKA R ESRD on HD DM2 History of Present Illness History of Present Illness Ms. Douglass is a 73 year old female with severe right shoulder pain and abdominal pain. Her pain to her abdomen fluctuates, no quigley in stool, Also 10/10 right shoulder pain, she can barely move the arm due to pain. she was last dialyzed on Friday, and abd pain had fluctuated in the past few days prior to admit. 10/17: Seen by vascular for right foot, ID for h/o infection, nephro for ESRD, general surgery for panniculitis surgery not recommensed due to high risk with cirrhosis . Seen by ortho for shoulder pain. 10/18: Right foot very painful today. No BM. Abdomen swelling. Tolerated diet ok. Seen on dialysis. MRI shoulder resulted - Rotator cuff tendinosis. There does appear to be a small full-thickness rotator cuff tear of the supraspinatus tendon, and a probable mild subscapularis tendon tear. Mild subdeltoid bursal fluid or bursitis. 10/19 WOUND PROBES TO THE BONE may need amputation , risk of significant complications given cirrhosis Nondisplaced chip fracture at the medial base of the left second toe 10/20 pt is thinking about amputation, grand daughter encouraged 10/20 She foot pain RIGHT, NOT IMPROVED, breast pain all on the right from her fall. should undergo BKA of RLE. Labs reviewed. D/W nursing staff 10/21 DATE OF SURGERY: 10/21/201810/23 still very somnolent, will reduce pain meds 3/3 more alert today appetite fair 3/4 back to baseline alertness plan to snf bed in [facility] TODAY D/C PLANNING 39 MIN SURGEON: Xochilt Child M.D. [employer] REPAIR TECHNICIAN: Deanna Merino. 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 POSTOPERATIVE DIAGNOSES: Right foot infected gangrene and nonhealing wounds. OPERATION PERFORMED: Right avssm-zey-viam amputation. BLOOD LOSS: 50 mL. ANESTHESIA USED: General anesthesia. 10/22 moderate post-op pain persists, pt somnolent albumin very low at 1.7 / very somnolent reducing narcotics today 3/2 SEEMS MORE DEPRESSED AND TEARFUL 3/3 depression still moderate Plan: ortho FOLLOWING GI to see for cirrhosis Nephro to see for ESRD ID for history of MDRO infection - pseudomonas ct right foot 10/19 PERSONALLY REVIEWED IMAGES in my opinion amputation needed , wound unlikely to heal otherwise Vitals Vitals Vital Signs Date Time Temp Pulse Resp B/P (MAP) Pulse Ox O2 Delivery O2 Flow Rate FiO2 10/26/18 09:05 64 135/50 10/26/18 08:00 Nasal Cannula 2.0 10/26/18 07:00 99.7 18 95 99.7 Physical Exam Physical Exam GENERAL: Propped up in bed, alert, eating NO INC PAIN HEENT: Oral cavity, pharynx is dry. NECK: Supple. LUNGS: Decreased at bases. HEART: S1 and S2. ABDOMEN: Obese, soft EXTREMITIES: DRESSING DRY RUE-AVF unremarkable. Right BKA SKIN: No rash NEUROLOGIC: Alert, responds appropriately PIV ok General: Alert, Oriented X3, Cooperative, No acute distress, Other (groggy) Heart: Regular rate, Normal S1, Normal S2, No murmurs, Gallops Lungs: Clear Abdomen: Normal bowel sounds, Soft, No hepatosplenomegaly, Other (chronic skin changes to pannus) Extremities: No cyanosis, Other (the right shoulder is tender to palpation around the greater tuberosity and rotator cuff. The gross alignment is normal and there is no effusion or erythema. Passive range of motion is very limited) Skin: Other (right foot dressing DRY) Labs LABS Laboratory Tests Test 10/25/18 11:55 10/25/18 16:47 10/25/18 19:07 10/26/18 07:47 Glucose (Fingerstick) 209 mg/dL (70-99) 192 mg/dL (70-99) 171 mg/dL (70-99) 197 mg/dL (70-99) Assessment and Plan Assessmemt and Plan Problems Medical Problems: (1) Cirrhosis of liver with ascites Status: Acute (2) Hyperglycemia Status: Acute (3) Open wound of right foot Status: Acute (4) UTI (urinary tract infection) Status: Acute Comment Review of Relevant I have reviewed the following items karyn (where applicable) has been applied. Labs Laboratory Tests Test 10/24/18 12:22 10/24/18 15:45 10/24/18 21:33 10/25/18 04:30 Glucose (Fingerstick) 128 mg/dL (70-99) 130 mg/dL (70-99) 192 mg/dL (70-99) White Blood Count 4.6 x10^3/uL (4.0-11.0) Red Blood Count 2.70 x10^6/uL (3.50-5.40) Hemoglobin 8.2 g/dL (12.0-15.5) Hematocrit 25.2 % (36.0-47.0) Mean Corpuscular Volume 93 fL (79-100) Mean Corpuscular Hemoglobin 31 pg (25-35) Mean Corpuscular Hemoglobin Concent 33 g/dL (31-37) Red Cell Distribution Width 16.8 % (11.5-14.5) Platelet Count 61 x10^3/uL (140-400) Neutrophils (%) (Auto) 80 % (31-73) Lymphocytes (%) (Auto) 10 % (24-48) Monocytes (%) (Auto) 8 % (0-9) Eosinophils (%) (Auto) 2 % (0-3) Basophils (%) (Auto) 1 % (0-3) Neutrophils # (Auto) 3.7 x10^3uL (1.8-7.7) Lymphocytes # (Auto) 0.4 x10^3/uL (1.0-4.8) Monocytes # (Auto) 0.4 x10^3/uL (0.0-1.1) Eosinophils # (Auto) 0.1 x10^3/uL (0.0-0.7) Basophils # (Auto) 0.0 x10^3/uL (0.0-0.2) Sodium Level 140 mmol/L (136-145) Potassium Level 3.8 mmol/L (3.5-5.1) Chloride Level 103 mmol/L (98-107) Carbon Dioxide Level 30 mmol/L (21-32) Anion Gap 7 (6-14) Blood Urea Nitrogen 16 mg/dL (7-20) Creatinine 3.0 mg/dL (0.6-1.0) Estimated GFR (Cockcroft-Gault) 15.3 BUN/Creatinine Ratio 5 (6-20) Glucose Level 227 mg/dL (70-99) Calcium Level 7.8 mg/dL (8.5-10.1) Total Bilirubin 0.8 mg/dL (0.2-1.0) Aspartate Amino Transf (AST/SGOT) 21 U/L (15-37) Alanine Aminotransferase (ALT/SGPT) 14 U/L (14-59) Alkaline Phosphatase 94 U/L (46-116) Total Protein 6.3 g/dL (6.4-8.2) Albumin 2.2 g/dL (3.4-5.0) Albumin/Globulin Ratio 0.5 (1.0-1.7) Test 10/25/18 08:00 10/25/18 11:55 10/25/18 16:47 10/25/18 19:07 Glucose (Fingerstick) 237 mg/dL (70-99) 209 mg/dL (70-99) 192 mg/dL (70-99) 171 mg/dL (70-99) Test 10/26/18 07:47 Glucose (Fingerstick) 197 mg/dL (70-99) Laboratory Tests Test 10/25/18 11:55 10/25/18 16:47 10/25/18 19:07 10/26/18 07:47 Glucose (Fingerstick) 209 mg/dL (70-99) 192 mg/dL (70-99) 171 mg/dL (70-99) 197 mg/dL (70-99) Microbiology 10/15/18 Urine Culture - Final, Complete 10/15/18 Urine Culture Result 1 (DARIN) - Final, Complete Medications Current Medications Morphine Sulfate (Morphine Sulfate) 4 mg PRN Q15MIN PRN IV/SQ PAIN GREATER THAN 3/10 Last administered on 10/15/18at 18:50; Start 10/15/18 at 14:15; Stop at 14:14; Status DC Insulin Human Regular (HumuLIN R VIAL) 10 unit 1X ONCE IV ; Start 10/15/18 at 16:45; Stop 10/15/18 at 16:46; Status Cancel Insulin Human Regular (HumuLIN R VIAL) 5 unit 1X ONCE IV Last administered on 10/15/18at 17:04; Start 10/15/18 at 17:15; Stop 10/15/18 at 17:16; Status DC Ondansetron HCl (Zofran) 4 mg PRN Q8HRS PRN IV NAUSEA/VOMITING; Start 10/15/18 at 19:15; Stop 10/16/18 at 19:14; Status DC Morphine Sulfate (Morphine Sulfate) 4 mg PRN Q2HR PRN IV PAIN; Start 10/15/18 at 19:15; Stop 10/16/18 at 19:14; Status DC Insulin Human Lispro (HumaLOG) 0-7 UNITS TIDWMEALS SQ Last administered on 09:22; Start 10/16/18 at 08:00 Dextrose (Dextrose 50%-Water Syringe) 12.5 gm PRN Q15MIN PRN IV SEE COMMENTS; Start 10/15/18 at 19:15 Ceftriaxone Sodium (Rocephin) 1 gm Q24H IVP Last administered on 10/15/18 22: 27; Start 10/15/18 at 20:00; Stop 10/16/18 at 10:39; Status DC Zolpidem Tartrate (Ambien) 5 mg PRN QHS PRN PO INSOMNIA Last administered on 22:27; Start 10/15/18 at 22:15; Stop 10/16/18 at 22:30; Status DC Aspirin (Ecotrin) 325 mg DAILYWBKFT PO Last administered on 10/25/18 08:07; Start 10/16/18 at 10:00 Clonidine HCl (Catapres) 0.2 mg DAILY PO Last administered on 10/26/18 09:04; Start 10/16/18 at 09:00 Diclofenac Sodium (Voltaren) 1 ronel BID TP Last administered on 10/24/18 09:19; Start 10/16/18 at 09:00 Famotidine (Pepcid) 20 mg QODAY PO ; Start 10/16/18 at 09:00; Stop 10/16/18 at 09:35; Status DC Gabapentin (Neurontin) 100 mg DAILY PO Last administered on 10/26/18 09:05; Start 10/16/18 at 09:00 Acetaminophen/ Hydrocodone Bitart (Lortab 5/325) 2 tab PRN Q6HRS PRN PO PAIN Last administered on 10/23/18 11:54; Start 10/16/18 at 08:30; Stop 10/23/18 at 15 :59; Status DC Insulin Glargine (Lantus) 15 units DAILY SQ Last administered on 10/26/18 09:21 ; Start 10/16/18 at 09:00 Insulin Human Lispro (HumaLOG) 5 units TIDWMEALS SQ Last administered on 09:23; Start 10/16/18 at 12:00 Lactobacillus Rhamnosus (Culturelle) 1 cap BID PO Last administered on 09:05; Start 10/16/18 at 09:00 Lactulose (Lactulose) 10 gm PRN TID PRN PO CONSTIPATION; Start 10/16/18 at 08: 30; Stop 10/16/18 at 09:35; Status DC Levothyroxine Sodium (Synthroid) 125 mcg DAILY06 PO Last administered on 05:43; Start 10/16/18 at 09:00 Metoprolol Succinate (Toprol Xl) 25 mg DAILY PO Last administered on 10/26/18 09:05; Start 10/16/18 at 09:00 Rifaximin (Xifaxan) 550 mg BID PO Last administered on 10/16/18 13:40; Start 10/16/18 at 09:00; Stop 10/16/18 at 16:03; Status DC Sertraline HCl (Zoloft) 75 mg DAILY PO Last administered on 10/26/18 09:04; Start 10/16/18 at 09:00 Sevelamer Carbonate (Renvela) 800 mg TIDWMEALS PO Last administered on 09:05; Start 10/16/18 at 12:00 Isosorbide Mononitrate (Imdur) 30 mg DAILY PO Last administered on 10/26/18 09: 05; Start 10/16/18 at 09:00 Lactulose (Lactulose) 10 gm TID PO Last administered on 10/25/18 16:21; Start 10/16/18 at 14:00 Rifaximin (Xifaxan) 550 mg Q12HR PO Last administered on 10/26/18 09:04; Start 10/16/18 at 10:00 Pantoprazole Sodium (Protonix) 40 mg DAILYAC PO Last administered on 10/26/18 09:05; Start 10/16/18 at 10:00 Piperacillin Sod/ Tazobactam Sod 2.25 gm/Sodium Chloride 50 ml @ 100 mls/hr Q8HRS IV Last administered on 2/28/19at 06:07; Start 10/16/18 at 11:00; Stop at 11:21; Status DC Vancomycin HCl (Vanco Per Pharmacy) 1 each PRN DAILY PRN MC SEE COMMENTS Last administered on 10/21/18at 16:25; Start 10/16/18 at 10:45; Stop 10/22/18 at 11:22 ; Status DC Vancomycin HCl 1.75 gm/Sodium Chloride 500 ml @ 250 mls/hr 1X ONCE IV Last administered on 10/16/18at 15:24; Start 10/16/18 at 11:00; Stop 10/16/18 at 12:59 ; Status DC Vancomycin HCl (Vancomycin Random Level) 1 each 1X ONCE MC Last administered on 10/17/18at 05:05; Start 10/17/18 at 06:00; Stop 10/17/18 at 06:01; Status DC Iohexol (Omnipaque 350 Mg/ml) 100 ml 1X ONCE IV ; Start 10/16/18 at 17:15; Stop 10/16/18 at 17:16; Status DC Info (CONTRAST GIVEN -- Rx MONITORING) 1 each PRN DAILY PRN MC SEE COMMENTS; Start 10/16/18 at 17:30; Stop 10/18/18 at 17:29; Status DC Nystatin (Nystop) 1 ronel BID TP Last administered on 10/24/18 20:52; Start 10/16 at 21:30 Temazepam (Restoril) 7.5 mg PRN QHS PRN PO INSOMNIA Last administered on 20:50; Start 10/16/18 at 22:30 Sodium Chloride 1,000 ml @ 1,000 mls/hr Q1H PRN IV hypotension; Start 10/17/18 at 09:28; Stop 10/17/18 at 15:27; Status DC Albumin Human 200 ml @ 200 mls/hr 1X PRN PRN IV Hypotension; Start 10/17/18 at 09:30; Stop 10/17/18 at 15:29; Status DC Sodium Chloride 1,000 ml @ 400 mls/hr Q2H30M PRN IV PATENCY; Start 10/17/18 at 09:28; Stop 10/17/18 at 21:27; Status DC Info (PHARMACY MONITORING -- do not chart) 1 each PRN DAILY PRN MC SEE COMMENTS ; Start 10/17/18 at 09:30; Stop 10/17/18 at 09:34; Status DC Info (PHARMACY MONITORING -- do not chart) 1 each PRN DAILY PRN MC SEE COMMENTS ; Start 10/17/18 at 09:30 Vancomycin HCl 500 mg/Sodium Chloride 100 ml @ 100 mls/hr QTUTHSA IV Last administered on 10/20/18at 20:59; Start 10/17/18 at 16:00; Stop 10/22/18 at 11:21 ; Status DC Sodium Chloride 250 ml @ 0 mls/hr 1X PRN PRN IV SBP <= 80; Start 10/18/18 at 12 :30 Methylprednisolone Acetate (DEPO-Medrol 40MG VIAL) 40 mg 1X ONCE IM Last administered on 10/18/18at 14:40; Start 10/18/18 at 13:45; Stop 10/18/18 at 13:46 ; Status DC Bupivacaine HCl (Sensorcaine-Mpf 0.25%) 10 ml 1X ONCE IJ Last administered on 10/18/18at 14:40; Start 10/18/18 at 13:45; Stop 10/18/18 at 13:46; Status DC Lorazepam (Ativan) 0.5 mg PRN Q8HRS PRN PO ANXIETY / AGITATION 1ST CHOICE Last administered on 10/24/18at 20:50; Start 10/19/18 at 13:15 Alprazolam (Xanax) 0.25 mg PRN Q8HRS PRN PO ANXIETY / AGITATION 2ND CHOICE Last administered on 10/23/18at 03:32; Start 10/19/18 at 13:30 Sodium Chloride 1,000 ml @ 1,000 mls/hr Q1H PRN IV hypotension; Start 10/20/18 at 08:29; Stop 10/20/18 at 14:28; Status DC Sodium Chloride 1,000 ml @ 400 mls/hr Q2H30M PRN IV PATENCY; Start 10/20/18 at 08:29; Stop 10/20/18 at 20:30; Status DC Info (PHARMACY MONITORING -- do not chart) 1 each PRN DAILY PRN MC SEE COMMENTS ; Start 10/20/18 at 08:30; Status UNV Info (PHARMACY MONITORING -- do not chart) 1 each PRN DAILY PRN MC SEE COMMENTS ; Start 10/20/18 at 08:30; Status UNV Lidocaine HCl (Lidocaine 1% 20ml Vial) 20 ml 1X ONCE INJ ; Start 10/20/18 at 08 :45; Stop 10/20/18 at 08:46; Status DC Lidocaine HCl (Xylocaine-Mpf 1% 2ml Vial) 2 ml STK-MED ONCE .ROUTE ; Start 10/20 at 08:55; Stop 10/20/18 at 08:56; Status DC Ondansetron HCl (Zofran) 4 mg PRN Q6HRS PRN IV NAUSEA/VOMITING Last administered on 10/20/18at 21:00; Start 10/20/18 at 16:30 Fentanyl Citrate (Fentanyl 2ml Vial) 25 mcg PRN Q5MIN PRN IV MILD PAIN; Start 10/21/18 at 07:00; Stop 10/22/18 at 06:59; Status DC Fentanyl Citrate (Fentanyl 2ml Vial) 50 mcg PRN Q5MIN PRN IV MODERATE TO SEVERE PAIN Last administered on 10/21/18at 14:51; Start 10/21/18 at 07:00; Stop 10/22/18 at 06:59; Status DC Morphine Sulfate (Morphine Sulfate) 1 mg PRN Q10MIN PRN IV SEVERE PAIN; Start 10/21/18 at 07:00; Stop 10/21/18 at 14:26; Status DC Hydromorphone HCl (Dilaudid) 0.5 mg PRN Q10MIN PRN IV SEV PAIN, Second choice; Start 10/21/18 at 07:00; Stop 10/22/18 at 06:59; Status DC Prochlorperazine Edisylate (Compazine) 5 mg PACU PRN PRN IV NAUSEA, MRX1; Start 10/21/18 at 07:00; Stop 10/22/18 at 06:59; Status DC Sodium Chloride 1,000 ml @ 0 mls/hr Q0M IV ; Start 10/21/18 at 07:00 Fentanyl Citrate (Fentanyl 2ml Vial) 100 mcg STK-MED ONCE .ROUTE ; Start at 11:41; Stop 10/21/18 at 11:42; Status DC Ketamine HCl (Ketamine) 50 mg STK-MED ONCE .ROUTE ; Start 10/21/18 at 11:41; Stop 10/21/18 at 11:42; Status DC Sevoflurane (Ultane) 60 ml STK-MED ONCE IH ; Start 10/21/18 at 11:41; Stop 10/21 at 11:42; Status DC Propofol 20 ml @ As Directed STK-MED ONCE IV ; Start 10/21/18 at 11:41; Stop at 11:42; Status DC Dexamethasone Sodium Phosphate (Decadron) 20 mg STK-MED ONCE .ROUTE ; Start at 11:41; Stop 10/21/18 at 11:42; Status DC Ondansetron HCl (Zofran) 4 mg STK-MED ONCE .ROUTE ; Start 10/21/18 at 11:41; Stop 10/21/18 at 11:42; Status DC Lidocaine HCl (Lidocaine Pf 2% Vial) 5 ml STK-MED ONCE .ROUTE ; Start 10/21/18 at 11:41; Stop 10/21/18 at 11:42; Status DC Phenylephrine HCl (Taran-Synephrine Inj) 10 mg STK-MED ONCE .ROUTE ; Start at 11:43; Stop 10/21/18 at 11:44; Status DC Bacitracin 58576 unit/Sodium Chloride 500 ml @ 500 mls/hr 1X ONCE IRR Last administered on 10/21/18at 13:26; Start 10/21/18 at 12:43; Stop 10/21/18 at 13:42 ; Status DC Ephedrine Sulfate (Akovaz) 50 mg STK-MED ONCE .ROUTE ; Start 10/21/18 at 13:05; Stop 10/21/18 at 13:06; Status DC Morphine Sulfate (Morphine Sulfate) 2 mg PRN Q2HR PRN IV PAIN Last administered on 10/21/18at 19:44; Start 10/21/18 at 14:15; Stop 10/23/18 at 16:00 ; Status DC Fentanyl Citrate (Fentanyl 2ml Vial) 100 mcg STK-MED ONCE .ROUTE ; Start at 14:23; Stop 10/21/18 at 14:24; Status DC Fentanyl Citrate (Fentanyl 2ml Vial) 100 mcg STK-MED ONCE .ROUTE ; Start at 14:49; Stop 10/21/18 at 14:50; Status DC Lidocaine HCl (Xylocaine-Mpf 1% 2ml Vial) 2 ml STK-MED ONCE .ROUTE ; Start 10/20 at 09:00; Stop 10/22/18 at 09:09; Status DC Info (PHARMACY MONITORING -- do not chart) 1 each PRN DAILY PRN MC SEE COMMENTS ; Start 10/22/18 at 10:15; Status UNV Info (PHARMACY MONITORING -- do not chart) 1 each PRN DAILY PRN MC SEE COMMENTS ; Start 10/22/18 at 10:15; Status UNV Lidocaine HCl (Xylocaine-Mpf 1% 2ml Vial) 2 ml STK-MED ONCE .ROUTE ; Start 10/22 at 10:16; Stop 10/22/18 at 10:17; Status DC Amoxicillin/ Clavulanate Potassium (Augmentin 500/ 125mg) 1 tab BID PO Last administered on 10/26/18at 09:03; Start 10/22/18 at 12:00 Lidocaine HCl (Xylocaine-Mpf 1% 2ml Vial) 2 ml STK-MED ONCE .ROUTE ; Start 10/22 at 10:30; Stop 10/23/18 at 09:02; Status DC Acetaminophen/ Hydrocodone Bitart (Lortab 5/325) 1 tab PRN Q6HRS PRN PO PAIN Last administered on 10/26/18at 03:20; Start 10/23/18 at 16:00 Sodium Chloride 1,000 ml @ 1,000 mls/hr Q1H PRN IV hypotension; Start 10/24/18 at 10:30; Stop 10/24/18 at 16:29; Status DC Albumin Human 200 ml @ 200 mls/hr 1X PRN PRN IV Hypotension; Start 10/24/18 at 10:30; Stop 10/24/18 at 16:29; Status DC Info (PHARMACY MONITORING -- do not chart) 1 each PRN DAILY PRN MC SEE COMMENTS ; Start 10/24/18 at 12:00; Status UNV Info (PHARMACY MONITORING -- do not chart) 1 each PRN DAILY PRN MC SEE COMMENTS ; Start 10/24/18 at 12:00; Status UNV Active Scripts Active Zofran (Ondansetron Hcl) 4 Mg Tablet 1 Tab PO Q6HRS Cephalexin 500 Mg Tablet 1 Tab PO BID Humalog (Insulin Lispro) 100 Unit/1 Ml Insuln.pen 5 Units SQ TIDWMEALS 28 Days Culturelle (Lactobacillus Rhamnosus Gg) 1 Each Cap.sprink 1 Cap PO BID 28 Days Lantus Solostar (Insulin Glargine,Hum.rec.anlog) 100 Unit/1 Ml Insuln.pen 15 Units SQ DAILY 28 Days Cipro (Ciprofloxacin Hcl) 250 Mg Tablet 250 Mg PO DAILY 10 Days Lactulose 20 Gm/30 Ml Solution 10 Gm PO PRN TID PRN 10 Days Aspirin Ec (Aspirin) 325 Mg Tablet.dr 325 Mg PO DAILYWBKFT 30 Days Reported Calcium Acetate 667 Mg Tablet 667 Mg PO BID Calcium Acetate 667 Mg Tablet 1,334 Mg PO TIDWMEALS Vitamin D (Cholecalciferol (Vitamin D3)) 50,000 Unit Capsule 50,000 Unit PO DAILY Tizanidine Hcl 2 Mg Capsule 2 Mg PO BID PRN Meclizine Hcl 25 Mg Tablet 1 Tab PO TID Voltaren (Diclofenac Sodium) 100 Gm Gel..gram. 1 Gm TP BID Hydrocodone-Apap 5-325 (Hydrocodone Bit/Acetaminophen) 1 Each Tablet 2 Tab PO PRN Q6HRS PRN Clonidine Hcl 0.2 Mg Tablet 0.2 Mg PO DAILY Gabapentin (Gabapentin) 100 Mg Capsule 100 Mg PO DAILY Zoloft (Sertraline Hcl) 50 Mg Tablet 75 Mg PO DAILY Renvela (Sevelamer Carbonate) 800 Mg Tablet 1 Tab PO TIDWMEALS Levothyroxine Sodium 175 Mcg Tablet 125 Mcg PO DAILYAC Dialyvite [place] D Tablet (Multivitamin, Min Cmb#25/Fa/D3) 1 Each Tablet 1 Each PO DAILY Metoprolol Succinate ( Xl ) (Metoprolol Succinate) 25 Mg Tab.er.24h 25 Mg PO DAILY Ondansetron Hcl 4 Mg Tablet 4 Mg PO Q6HRS PRN Zolpidem Tartrate 5 Mg Tablet 5 Mg PO PRN QHS PRN Famotidine 20 Mg Tablet 20 Mg PO DAILY Xifaxan (Rifaximin) 550 Mg Tablet 1 Tab PO BID Isosorbide Dinitrate 30 Mg Tablet 1 Tab PO DAILY Vitals/I & O Vital Sign - Last 24 Hours 10/25/18 10/25/18 10/25/18 10/25/18 10:52 11:00 15:00 19:00 Temp 98.4 98.4 98.0 98.4 98.4 98.0 Pulse 60 60 56 Resp 18 18 18 18 B/P (MAP) 149/48 (81) 155/46 (82) 129/43 (71) Pulse Ox 100 99 99 94 O2 Delivery Room Air Nasal Cannula Nasal Cannula Nasal Cannula O2 Flow Rate 2.0 2.0 2.0 2.0 10/25/18 10/25/18 10/25/18 10/25/18 19:12 19:56 20:13 23:00 Temp 98.1 98.1 Pulse 58 Resp 14 18 B/P (MAP) 140/52 (81) Pulse Ox 99 92 O2 Delivery Nasal Cannula Nasal Cannula Room Air O2 Flow Rate 2.0 2.0 2.0 2.0 10/26/18 10/26/18 10/26/18 10/26/18 03:00 03:20 05:01 07:00 Temp 98.2 99.7 98.2 99.7 Pulse 64 63 Resp 18 18 18 18 B/P (MAP) 135/50 (78) 140/43 (75) Pulse Ox 93 92 92 95 O2 Delivery Nasal Cannula Nasal Cannula Room Air Nasal Cannula O2 Flow Rate 2.0 2.0 10/26/18 10/26/18 10/26/18 10/26/18 08:00 09:04 09:05 09:05 Pulse 64 64 64 B/P (MAP) 135/50 135/50 135/50 O2 Delivery Nasal Cannula O2 Flow Rate 2.0 Intake and Output 10/25/18 10/25/18 10/26/18 15:00 23:00 07:00 Intake Total 500 ml 200 ml 240 ml Output Total 250 ml Balance 500 ml 200 ml -10 ml FEROZ KELLY MD Oct 26, 2018 10:04
--- NOTE | 2018-10-26 10:22 | PDOC ---
Infectious Disease Note Subjective: Subjective c/o little bit of a nosebleed Denies F/C/S/pain/N/V/SOA ROS: ROS Negative except for above. Vital Signs: Vital Signs Vital Signs Date Time Temp Pulse Resp B/P (MAP) Pulse Ox O2 Delivery O2 Flow Rate FiO2 10/26/18 09:05 64 135/50 10/26/18 08:00 Nasal Cannula 2.0 10/26/18 07:00 99.7 18 95 99.7 Physical Exam: PHYSICAL EXAM GENERAL: Propped up in bed, alert, eating HEENT: Oral cavity, pharynx is dry. NECK: Supple. LUNGS: Decreased at bases. HEART: S1 and S2. ABDOMEN: Obese, soft EXTREMITIES: Chronic changes left lower extremity, trace edema. RUE-AVF unremarkable. Right BKA SKIN: No rash NEUROLOGIC: Alert, responds appropriately PIV ok Medications: Inpatient Meds: Current Medications Medications (Trade) Dose Ordered Sig/Vijay Start Time Stop Time Status Last Admin Dose Admin Acetaminophen/ Hydrocodone Bitart (Lortab 5/325) 1 tab PRN Q6HRS PRN 10/23/18 16:00 10/26/18 03:20 1 TAB Albumin Human 200 ml @ 200 mls/hr 1X PRN PRN 10/24/18 10:30 10/24/18 16:29 DC Alprazolam (Xanax) 0.25 mg PRN Q8HRS PRN 10/19/18 13:30 10/23/18 03:32 0.25 MG Amoxicillin/ Clavulanate Potassium (Augmentin 500/ 125mg) 1 tab BID 10/22/18 12:00 10/26/18 09:03 1 TAB Aspirin (Ecotrin) 325 mg [id number] 10/16/18 10:00 10/25/18 08:07 325 MG Bacitracin 56664 unit/Sodium Chloride 500 ml @ 500 mls/hr 1X ONCE 10/21/18 12:43 10/21/18 13:42 DC 10/21/18 13:26 Bupivacaine HCl (Sensorcaine-Mpf 0.25%) 10 ml 1X ONCE 10/18/18 13:45 10/18/18 13:46 DC 10/18/18 14:40 10 ML Ceftriaxone Sodium (Rocephin) 1 gm Q24H 10/15/18 20:00 10/16/18 10:39 DC 10/15/18 22:27 1 GM Clonidine HCl (Catapres) 0.2 mg DAILY 10/16/18 09:00 10/26/18 09:04 0.2 MG Dexamethasone Sodium Phosphate (Decadron) 20 mg STK-MED ONCE 10/21/18 11:41 10/21/18 11:42 DC Dextrose (Dextrose 50%-Water Syringe) 12.5 gm PRN Q15MIN PRN 10/15/18 19:15 Diclofenac Sodium (Voltaren) 1 ronel BID 10/16/18 09:00 10/24/18 09:19 1 RONEL Ephedrine Sulfate (Akovaz) 50 mg STK-MED ONCE 10/21/18 13:05 10/21/18 13:06 DC Famotidine (Pepcid) 20 mg QODAY 10/16/18 09:00 10/16/18 09:35 DC Fentanyl Citrate (Fentanyl 2ml Vial) 100 mcg STK-MED ONCE 10/21/18 14:49 10/21/18 14:50 DC Gabapentin (Neurontin) 100 mg DAILY 10/16/18 09:00 10/26/18 09:05 100 MG Hydromorphone HCl (Dilaudid) 0.5 mg PRN Q10MIN PRN 10/21/18 07:00 10/22/18 06:59 DC Info (CONTRAST GIVEN -- Rx MONITORING) 1 each PRN DAILY PRN 10/16/18 17:30 10/18/18 17:29 DC Info (PHARMACY MONITORING -- do not chart) 1 each PRN DAILY PRN 10/24/18 12:00 UNV Insulin Glargine (Lantus) 15 units DAILY 10/16/18 09:00 10/26/18 09:21 15 UNITS Insulin Human Lispro (HumaLOG) 5 units TIDWMEALS 10/16/18 12:00 10/26/18 09:23 5 UNITS Insulin Human Regular (HumuLIN R VIAL) 5 unit 1X ONCE 10/15/18 17:15 10/15/18 17:16 DC 10/15/18 17:04 5 UNIT Iohexol (Omnipaque 350 Mg/ml) 100 ml 1X ONCE 10/16/18 17:15 10/16/18 17:16 DC Isosorbide Mononitrate (Imdur) 30 mg DAILY 10/16/18 09:00 10/26/18 09:05 30 MG Ketamine HCl (Ketamine) 50 mg STK-MED ONCE 10/21/18 11:41 10/21/18 11:42 DC Lactobacillus Rhamnosus (Culturelle) 1 cap BID 10/16/18 09:00 10/26/18 09:05 1 CAP Lactulose (Lactulose) 10 gm TID 10/16/18 14:00 10/25/18 16:21 10 GM Levothyroxine Sodium (Synthroid) 125 mcg DAILY06 10/16/18 09:00 10/26/18 05:43 125 MCG Lidocaine HCl (Lidocaine 1% 20ml Vial) 20 ml 1X ONCE 10/20/18 08:45 10/20/18 08:46 DC Lidocaine HCl (Lidocaine Pf 2% Vial) 5 ml STK-MED ONCE 10/21/18 11:41 10/21/18 11:42 DC Lidocaine HCl (Xylocaine-Mpf 1% 2ml Vial) 2 ml STK-MED ONCE 10/22/18 10:30 10/23/18 09:02 DC Lorazepam (Ativan) 0.5 mg PRN Q8HRS PRN 10/19/18 13:15 10/24/18 20:50 0.5 MG Methylprednisolone Acetate (DEPO-Medrol 40MG VIAL) 40 mg 1X ONCE 10/18/18 13:45 10/18/18 13:46 DC 10/18/18 14:40 40 MG Metoprolol Succinate (Toprol Xl) 25 mg DAILY 10/16/18 09:00 10/26/18 09:05 25 MG Morphine Sulfate (Morphine Sulfate) 2 mg PRN Q2HR PRN 10/21/18 14:15 10/23/18 16:00 DC 10/21/18 19:44 2 MG Nystatin (Nystop) 1 ronel BID 10/16/18 21:30 10/24/18 20:52 1 RONEL Ondansetron HCl (Zofran) 4 mg STK-MED ONCE 10/21/18 11:41 10/21/18 11:42 DC Pantoprazole Sodium (Protonix) 40 mg DAILYAC 10/16/18 10:00 10/26/18 09:05 40 MG Phenylephrine HCl (Taran-Synephrine Inj) 10 mg STK-MED ONCE 10/21/18 11:43 10/21/18 11:44 DC Piperacillin Sod/ Tazobactam Sod 2.25 gm/Sodium Chloride 50 ml @ 100 mls/hr Q8HRS 10/16/18 11:00 10/22/18 11:21 DC 10/22/18 06:07 100 MLS/HR Prochlorperazine Edisylate (Compazine) 5 mg PACU PRN PRN 10/21/18 07:00 10/22/18 06:59 DC Propofol 20 ml @ As Directed STK-MED ONCE 10/21/18 11:41 10/21/18 11:42 DC Rifaximin (Xifaxan) 550 mg Q12HR 10/16/18 10:00 10/26/18 09:04 550 MG Sertraline HCl (Zoloft) 75 mg DAILY 10/16/18 09:00 10/26/18 09:04 75 MG Sevelamer Carbonate (Renvela) 800 mg TIDWMEALS 10/16/18 12:00 10/26/18 09:05 800 MG Sevoflurane (Ultane) 60 ml STK-MED ONCE 10/21/18 11:41 10/21/18 11:42 DC Sodium Chloride 1,000 ml @ 1,000 mls/hr Q1H PRN 10/24/18 10:30 10/24/18 16:29 DC Temazepam (Restoril) 7.5 mg PRN QHS PRN 10/16/18 22:30 10/24/18 20:50 7.5 MG Vancomycin HCl (Vanco Per Pharmacy) 1 each PRN DAILY PRN 10/16/18 10:45 10/22/18 11:22 DC 10/21/18 16:25 1 EACH Vancomycin HCl (Vancomycin Random Level) 1 each 1X ONCE 10/17/18 06:00 10/17/18 06:01 DC 10/17/18 05:05 1 EACH Vancomycin HCl 1.75 gm/Sodium Chloride 500 ml @ 250 mls/hr 1X ONCE 10/16/18 11:00 10/16/18 12:59 DC 10/16/18 15:24 250 MLS/HR Vancomycin HCl 500 mg/Sodium Chloride 100 ml @ 100 mls/hr QTUTHSA 10/17/18 16:00 10/22/18 11:21 DC 10/20/18 20:59 100 MLS/HR Zolpidem Tartrate (Ambien) 5 mg PRN QHS PRN 10/15/18 22:15 10/16/18 22:30 DC 10/15/18 22:27 5 MG Labs: Lab Laboratory Tests Test 10/25/18 11:55 10/25/18 16:47 10/25/18 19:07 10/26/18 07:47 Glucose (Fingerstick) 209 mg/dL (70-99) 192 mg/dL (70-99) 171 mg/dL (70-99) 197 mg/dL (70-99) Objective: Assessment: Right foot diabetic plantar ulcer, 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 Chronic kidney disease, on hemodialysis via AVF Cirrhosis. History of toe cellulitis and wound that is healed. Shoulder pain without swelling. ? rotator tear. Ortho is following Plan: Plan of Care Augmentin Probiotics Supportive care ok to d/c. awaiting placement f/u vascular as directed MARTIN ALONZO MD Oct 26, 2018 10:22
[2018-10-26 11:00] VITALS: BP 111/29
--- NOTE | 2018-10-26 11:42 | PDOC ---
Objective: Objective: Reviewed w/ RN - awaiting placement. Passes stool w/ flatus, has declined lactulose. Still get teary, sometimes drowsy and confused. Vital Signs: Vital Signs Date Time Temp Pulse Resp B/P (MAP) Pulse Ox O2 Delivery O2 Flow Rate FiO2 10/26/18 11:00 98.4 62 16 111/29 (56) 95 Nasal Cannula 2.0 98.4 Labs: Laboratory Tests Test 10/25/18 11:55 10/25/18 16:47 10/25/18 19:07 10/26/18 07:47 Glucose (Fingerstick) 209 mg/dL 192 mg/dL 171 mg/dL 197 mg/dL PE: GEN: NAD, asleep in chair LUNGS: room air A/P: S/p RBKA ESRD, ACD, cirrhosis, panniculitis -- Await DC plans. Continue same per GI - goals is 2-3 stools daily, can adjust lactulose as needed. BRENDA DONOVAN Oct 26, 2018 11:42
--- NOTE | 2018-10-26 11:49 | NUR ---
SW following for discharge planning. Discussed with RN, pt has been accepted at [facility]. SW awaiting discharge paperwork, in order to set up transportation. RN notified. SW will continue to follow.
--- NOTE | 2018-10-26 14:13 | PDOC3 ---
Discharge Summary Date of Admission: Oct 15, 2018 Date of Discharge: Oct 26, 2018 Follow-Up: 1-2 days Admitting Diagnosis comment: DISCHARGE DX Chief Complaint Cirrhosis SEVERE pvd Foot ulcer COMPLEX, DEEP POST BKA R ESRD on HD DM2 History of Present Illness History of Present Illness Ms. Douglass is a 73 year old female with severe right shoulder pain and abdominal pain. Her pain to her abdomen fluctuates, no quigley in stool, Also 10/10 right shoulder pain, she can barely move the arm due to pain. she was last dialyzed on Friday, and abd pain had fluctuated in the past few days prior to admit. 10/17: Seen by vascular for right foot, ID for h/o infection, nephro for ESRD, general surgery for panniculitis surgery not recommensed due to high risk with cirrhosis . Seen by ortho for shoulder pain. 10/18: Right foot very painful today. No BM. Abdomen swelling. Tolerated diet ok. Seen on dialysis. MRI shoulder resulted - Rotator cuff tendinosis. There does appear to be a small full-thickness rotator cuff tear of the supraspinatus tendon, and a probable mild subscapularis tendon tear. Mild subdeltoid bursal fluid or bursitis. 10/19 WOUND PROBES TO THE BONE may need amputation , risk of significant complications given cirrhosis Nondisplaced chip fracture at the medial base of the left second toe 10/20 pt is thinking about amputation, grand daughter encouraged 10/20 She foot pain RIGHT, NOT IMPROVED, breast pain all on the right from her fall. should undergo BKA of RLE. Labs reviewed. D/W nursing staff 10/21 DATE OF SURGERY: 10/21/2018 3/ still very somnolent, will reduce pain meds 3/3 more alert today appetite fair 3/4 back to baseline alertness plan to snf bed in [place] TODAY D/C PLANNING 39 MIN SURGEON: Xochilt Child M.D. 10/21 OPERATIONS VICE PRESIDENT: Deanna Merino. 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 POSTOPERATIVE DIAGNOSES: Right foot infected gangrene and nonhealing wounds. OPERATION PERFORMED: Right [id number]-[id number]-xfob amputation. BLOOD LOSS: 50 mL. ANESTHESIA USED: General anesthesia. 10/22 moderate post-op pain persists, pt somnolent albumin very low at 1.7 10/23 very somnolent reducing narcotics today 3/2 SEEMS MORE DEPRESSED AND TEARFUL 3/ depression still moderate 3/4 more cheerful today Plan: ortho FOLLOWING GI to see for cirrhosis Nephro to see for ESRD ID for history of MDRO infection - pseudomonas ct right foot 10/19 PERSONALLY REVIEWED IMAGES in my opinion amputation needed , wound unlikely to heal otherwise Vitals Vitals Vital Signs Date Time Temp Pulse Resp B/P (MAP) Pulse Ox O2 Delivery O2 Flow Rate FiO2 10/26/18 09:05 64 135/50 10/26/18 08:00 Nasal Cannula 2.0 10/26/18 07:00 99.7 18 95 99.7 Physical Exam Physical Exam GENERAL: Propped up in bed, alert, eating NO INC PAIN HEENT: Oral cavity, pharynx is dry. NECK: Supple. LUNGS: Decreased at bases. HEART: S1 and S2. ABDOMEN: Obese, soft EXTREMITIES: DRESSING DRY RUE-AVF unremarkable. Right BKA SKIN: No rash NEUROLOGIC: Alert, responds appropriately PIV ok General: Alert, Oriented X3, Cooperative, No acute distress, Other (groggy) Heart: Regular rate, Normal S1, Normal S2, No murmurs, Gallops Lungs: Clear Abdomen: Normal bowel sounds, Soft, No hepatosplenomegaly, Other (chronic skin changes to pannus) Extremities: No cyanosis, Other (the right shoulder is tender to palpation around the greater tuberosity and rotator cuff. The gross alignment is normal and there is no effusion or erythema. Passive range of motion is very limited) Skin: Other (right foot dressing DRY) Labs FINAL DIAGNOSIS Problems Medical Problems: (1) Cirrhosis of liver with ascites Status: Acute (2) Hyperglycemia Status: Acute (3) Open wound of right foot Status: Acute (4) UTI (urinary tract infection) Status: Acute Brief Hospital Course Ms. Douglass is a 73 old [sex] who presented with [ right foot vascular wound complex] CONDITION AT DISCHARGE: Improved Discharge Medications Current Medications Morphine Sulfate (Morphine Sulfate) 4 mg PRN Q15MIN PRN IV/SQ PAIN GREATER THAN 3/10 Last administered on 10/15/18at 18:50; Start 10/15/18 at 14:15; Stop at 14:14; Status DC Insulin Human Regular (HumuLIN R VIAL) 10 unit 1X ONCE IV ; Start 10/15/18 at 16:45; Stop 10/15/18 at 16:46; Status Cancel Insulin Human Regular (HumuLIN R VIAL) 5 unit 1X ONCE IV Last administered on 10/15/18at 17:04; Start 10/15/18 at 17:15; Stop 10/15/18 at 17:16; Status DC Ondansetron HCl (Zofran) 4 mg PRN Q8HRS PRN IV NAUSEA/VOMITING; Start 10/15/18 at 19:15; Stop 10/16/18 at 19:14; Status DC Morphine Sulfate (Morphine Sulfate) 4 mg PRN Q2HR PRN IV PAIN; Start 10/15/18 at 19:15; Stop 10/16/18 at 19:14; Status DC Insulin Human Lispro (HumaLOG) 0-7 UNITS TIDWMEALS SQ Last administered on at 12:05; Start 10/16/18 at 08:00 Dextrose (Dextrose 50%-Water Syringe) 12.5 gm PRN Q15MIN PRN IV SEE COMMENTS; Start 10/15/18 at 19:15 Ceftriaxone Sodium (Rocephin) 1 gm Q24H IVP Last administered on 10/15/18at 22: 27; Start 10/15/18 at 20:00; Stop 10/16/18 at 10:39; Status DC Zolpidem Tartrate (Ambien) 5 mg PRN QHS PRN PO INSOMNIA Last administered on at 22:27; Start 10/15/18 at 22:15; Stop 10/16/18 at 22:30; Status DC Aspirin (Ecotrin) 325 mg DAILYWBKFT PO Last administered on 10/25/18at 08:07; Start 10/16/18 at 10:00 Clonidine HCl (Catapres) 0.2 mg DAILY PO Last administered on 10/26/18 09:04; Start 10/16/18 at 09:00 Diclofenac Sodium (Voltaren) 1 ronel BID TP Last administered on 10/24/18 09:19; Start 10/16/18 at 09:00 Famotidine (Pepcid) 20 mg QODAY PO ; Start 10/16/18 at 09:00; Stop 10/16/18 at 09:35; Status DC Gabapentin (Neurontin) 100 mg DAILY PO Last administered on 10/26/18 09:05; Start 10/16/18 at 09:00 Acetaminophen/ Hydrocodone Bitart (Lortab 5/325) 2 tab PRN Q6HRS PRN PO PAIN Last administered on 10/23/18 11:54; Start 10/16/18 at 08:30; Stop 10/23/18 at 15 :59; Status DC Insulin Glargine (Lantus) 15 units DAILY SQ Last administered on 10/26/18 09:21 ; Start 10/16/18 at 09:00 Insulin Human Lispro (HumaLOG) 5 units TIDWMEALS SQ Last administered on 12:06; Start 10/16/18 at 12:00 Lactobacillus Rhamnosus (Culturelle) 1 cap BID PO Last administered on 09:05; Start 10/16/18 at 09:00 Lactulose (Lactulose) 10 gm PRN TID PRN PO CONSTIPATION; Start 10/16/18 at 08: 30; Stop 10/16/18 at 09:35; Status DC Levothyroxine Sodium (Synthroid) 125 mcg DAILY06 PO Last administered on 05:43; Start 10/16/18 at 09:00 Metoprolol Succinate (Toprol Xl) 25 mg DAILY PO Last administered on 10/26/18 09:05; Start 10/16/18 at 09:00 Rifaximin (Xifaxan) 550 mg BID PO Last administered on 10/16/18 13:40; Start 10/16/18 at 09:00; Stop 10/16/18 at 16:03; Status DC Sertraline HCl (Zoloft) 75 mg DAILY PO Last administered on 10/26/18 09:04; Start 10/16/18 at 09:00 Sevelamer Carbonate (Renvela) 800 mg TIDWMEALS PO Last administered on 12:01; Start 10/16/18 at 12:00 Isosorbide Mononitrate (Imdur) 30 mg DAILY PO Last administered on 10/26/18 09: 05; Start 10/16/18 at 09:00 Lactulose (Lactulose) 10 gm TID PO Last administered on 10/25/18 16:21; Start 10/16/18 at 14:00 Rifaximin (Xifaxan) 550 mg Q12HR PO Last administered on 10/26/18 09:04; Start 10/16/18 at 10:00 Pantoprazole Sodium (Protonix) 40 mg DAILYAC PO Last administered on 10/26/18 09:05; Start 10/16/18 at 10:00 Piperacillin Sod/ Tazobactam Sod 2.25 gm/Sodium Chloride 50 ml @ 100 mls/hr Q8HRS IV Last administered on 10/22/18 06:07; Start 10/16/18 at 11:00; Stop at 11:21; Status DC Vancomycin HCl (Vanco Per Pharmacy) 1 each PRN DAILY PRN MC SEE COMMENTS Last administered on 10/21/18 16:25; Start 10/16/18 at 10:45; Stop 10/22/18 at 11:22 ; Status DC Vancomycin HCl 1.75 gm/Sodium Chloride 500 ml @ 250 mls/hr 1X ONCE IV Last administered on 10/16/18 15:24; Start 10/16/18 at 11:00; Stop 10/16/18 at 12:59 ; Status DC Vancomycin HCl (Vancomycin Random Level) 1 each 1X ONCE MC Last administered on 10/17/18 05:05; Start 10/17/18 at 06:00; Stop 10/17/18 at 06:01; Status DC Iohexol (Omnipaque 350 Mg/ml) 100 ml 1X ONCE IV ; Start 10/16/18 at 17:15; Stop 10/16/18 at 17:16; Status DC Info (CONTRAST GIVEN -- Rx MONITORING) 1 each PRN DAILY PRN MC SEE COMMENTS; Start 10/16/18 at 17:30; Stop 10/18/18 at 17:29; Status DC Nystatin (Nystop) 1 ronel BID TP Last administered on 10/24/18 20:52; Start 10/16 at 21:30 Temazepam (Restoril) 7.5 mg PRN QHS PRN PO INSOMNIA Last administered on 20:50; Start 10/16/18 at 22:30 Sodium Chloride 1,000 ml @ 1,000 mls/hr Q1H PRN IV hypotension; Start 10/17/18 at 09:28; Stop 10/17/18 at 15:27; Status DC Albumin Human 200 ml @ 200 mls/hr 1X PRN PRN IV Hypotension; Start 10/17/18 at 09:30; Stop 10/17/18 at 15:29; Status DC Sodium Chloride 1,000 ml @ 400 mls/hr Q2H30M PRN IV PATENCY; Start 10/17/18 at 09:28; Stop 10/17/18 at 21:27; Status DC Info (PHARMACY MONITORING -- do not chart) 1 each PRN DAILY PRN MC SEE COMMENTS ; Start 10/17/18 at 09:30; Stop 10/17/18 at 09:34; Status DC Info (PHARMACY MONITORING -- do not chart) 1 each PRN DAILY PRN MC SEE COMMENTS ; Start 10/17/18 at 09:30 Vancomycin HCl 500 mg/Sodium Chloride 100 ml @ 100 mls/hr QTUTHSA IV Last administered on 10/20/18at 20:59; Start 10/17/18 at 16:00; Stop 10/22/18 at 11:21 ; Status DC Sodium Chloride 250 ml @ 0 mls/hr 1X PRN PRN IV SBP <= 80; Start 10/18/18 at 12 :30 Methylprednisolone Acetate (DEPO-Medrol 40MG VIAL) 40 mg 1X ONCE IM Last administered on 10/18/18at 14:40; Start 10/18/18 at 13:45; Stop 10/18/18 at 13:46 ; Status DC Bupivacaine HCl (Sensorcaine-Mpf 0.25%) 10 ml 1X ONCE IJ Last administered on 10/18/18at 14:40; Start 10/18/18 at 13:45; Stop 10/18/18 at 13:46; Status DC Lorazepam (Ativan) 0.5 mg PRN Q8HRS PRN PO ANXIETY / AGITATION 1ST CHOICE Last administered on 10/24/18at 20:50; Start 10/19/18 at 13:15 Alprazolam (Xanax) 0.25 mg PRN Q8HRS PRN PO ANXIETY / AGITATION 2ND CHOICE Last administered on 10/23/18at 03:32; Start 10/19/18 at 13:30 Sodium Chloride 1,000 ml @ 1,000 mls/hr Q1H PRN IV hypotension; Start 10/20/18 at 08:29; Stop 10/20/18 at 14:28; Status DC Sodium Chloride 1,000 ml @ 400 mls/hr Q2H30M PRN IV PATENCY; Start 10/20/18 at 08:29; Stop 10/20/18 at 20:30; Status DC Info (PHARMACY MONITORING -- do not chart) 1 each PRN DAILY PRN MC SEE COMMENTS ; Start 10/20/18 at 08:30; Status UNV Info (PHARMACY MONITORING -- do not chart) 1 each PRN DAILY PRN MC SEE COMMENTS ; Start 10/20/18 at 08:30; Status UNV Lidocaine HCl (Lidocaine 1% 20ml Vial) 20 ml 1X ONCE INJ ; Start 10/20/18 at 08 :45; Stop 10/20/18 at 08:46; Status DC Lidocaine HCl (Xylocaine-Mpf 1% 2ml Vial) 2 ml STK-MED ONCE .ROUTE ; Start 10/20 at 08:55; Stop 10/20/18 at 08:56; Status DC Ondansetron HCl (Zofran) 4 mg PRN Q6HRS PRN IV NAUSEA/VOMITING Last administered on 10/20/18at 21:00; Start 10/20/18 at 16:30 Fentanyl Citrate (Fentanyl 2ml Vial) 25 mcg PRN Q5MIN PRN IV MILD PAIN; Start 10/21/18 at 07:00; Stop 10/22/18 at 06:59; Status DC Fentanyl Citrate (Fentanyl 2ml Vial) 50 mcg PRN Q5MIN PRN IV MODERATE TO SEVERE PAIN Last administered on 10/21/18at 14:51; Start 10/21/18 at 07:00; Stop 10/22/18 at 06:59; Status DC Morphine Sulfate (Morphine Sulfate) 1 mg PRN Q10MIN PRN IV SEVERE PAIN; Start 10/21/18 at 07:00; Stop 10/21/18 at 14:26; Status DC Hydromorphone HCl (Dilaudid) 0.5 mg PRN Q10MIN PRN IV SEV PAIN, Second choice; Start 10/21/18 at 07:00; Stop 10/22/18 at 06:59; Status DC Prochlorperazine Edisylate (Compazine) 5 mg PACU PRN PRN IV NAUSEA, MRX1; Start 10/21/18 at 07:00; Stop 10/22/18 at 06:59; Status DC Sodium Chloride 1,000 ml @ 0 mls/hr Q0M IV ; Start 10/21/18 at 07:00 Fentanyl Citrate (Fentanyl 2ml Vial) 100 mcg STK-MED ONCE .ROUTE ; Start at 11:41; Stop 10/21/18 at 11:42; Status DC Ketamine HCl (Ketamine) 50 mg STK-MED ONCE .ROUTE ; Start 10/21/18 at 11:41; Stop 10/21/18 at 11:42; Status DC Sevoflurane (Ultane) 60 ml STK-MED ONCE IH ; Start 10/21/18 at 11:41; Stop 10/21 at 11:42; Status DC Propofol 20 ml @ As Directed STK-MED ONCE IV ; Start 10/21/18 at 11:41; Stop at 11:42; Status DC Dexamethasone Sodium Phosphate (Decadron) 20 mg STK-MED ONCE .ROUTE ; Start at 11:41; Stop 10/21/18 at 11:42; Status DC Ondansetron HCl (Zofran) 4 mg STK-MED ONCE .ROUTE ; Start 10/21/18 at 11:41; Stop 10/21/18 at 11:42; Status DC Lidocaine HCl (Lidocaine Pf 2% Vial) 5 ml STK-MED ONCE .ROUTE ; Start 10/21/18 at 11:41; Stop 10/21/18 at 11:42; Status DC Phenylephrine HCl (Taran-Synephrine Inj) 10 mg STK-MED ONCE .ROUTE ; Start at 11:43; Stop 10/21/18 at 11:44; Status DC Bacitracin 03812 unit/Sodium Chloride 500 ml @ 500 mls/hr 1X ONCE IRR Last administered on 10/21/18at 13:26; Start 10/21/18 at 12:43; Stop 10/21/18 at 13:42 ; Status DC Ephedrine Sulfate (Akovaz) 50 mg STK-MED ONCE .ROUTE ; Start 10/21/18 at 13:05; Stop 10/21/18 at 13:06; Status DC Morphine Sulfate (Morphine Sulfate) 2 mg PRN Q2HR PRN IV PAIN Last administered on 10/21/18at 19:44; Start 10/21/18 at 14:15; Stop 10/23/18 at 16:00 ; Status DC Fentanyl Citrate (Fentanyl 2ml Vial) 100 mcg STK-MED ONCE .ROUTE ; Start at 14:23; Stop 10/21/18 at 14:24; Status DC Fentanyl Citrate (Fentanyl 2ml Vial) 100 mcg STK-MED ONCE .ROUTE ; Start at 14:49; Stop 10/21/18 at 14:50; Status DC Lidocaine HCl (Xylocaine-Mpf 1% 2ml Vial) 2 ml STK-MED ONCE .ROUTE ; Start 10/20 at 09:00; Stop 10/22/18 at 09:09; Status DC Info (PHARMACY MONITORING -- do not chart) 1 each PRN DAILY PRN MC SEE COMMENTS ; Start 10/22/18 at 10:15; Status UNV Info (PHARMACY MONITORING -- do not chart) 1 each PRN DAILY PRN MC SEE COMMENTS ; Start 10/22/18 at 10:15; Status UNV Lidocaine HCl (Xylocaine-Mpf 1% 2ml Vial) 2 ml STK-MED ONCE .ROUTE ; Start 10/22 at 10:16; Stop 10/22/18 at 10:17; Status DC Amoxicillin/ Clavulanate Potassium (Augmentin 500/ 125mg) 1 tab BID PO Last administered on 10/26/18at 09:03; Start 10/22/18 at 12:00 Lidocaine HCl (Xylocaine-Mpf 1% 2ml Vial) 2 ml STK-MED ONCE .ROUTE ; Start 10/22 at 10:30; Stop 10/23/18 at 09:02; Status DC Acetaminophen/ Hydrocodone Bitart (Lortab 5/325) 1 tab PRN Q6HRS PRN PO PAIN Last administered on 10/26/18at 10:24; Start 10/23/18 at 16:00 Sodium Chloride 1,000 ml @ 1,000 mls/hr Q1H PRN IV hypotension; Start 10/24/18 at 10:30; Stop 10/24/18 at 16:29; Status DC Albumin Human 200 ml @ 200 mls/hr 1X PRN PRN IV Hypotension; Start 10/24/18 at 10:30; Stop 10/24/18 at 16:29; Status DC Info (PHARMACY MONITORING -- do not chart) 1 each PRN DAILY PRN MC SEE COMMENTS ; Start 10/24/18 at 12:00; Status UNV Info (PHARMACY MONITORING -- do not chart) 1 each PRN DAILY PRN MC SEE COMMENTS ; Start 10/24/18 at 12:00; Status UNV Active Scripts Active Zofran (Ondansetron Hcl) 4 Mg Tablet 1 Tab PO Q6HRS Cephalexin 500 Mg Tablet 1 Tab PO BID Humalog (Insulin Lispro) 100 Unit/1 Ml Insuln.pen 5 Units SQ TIDWMEALS 28 Days Culturelle (Lactobacillus Rhamnosus Gg) 1 Each Cap.sprink 1 Cap PO BID 28 Days Lantus Solostar (Insulin Glargine,Hum.rec.anlog) 100 Unit/1 Ml Insuln.pen 15 Units SQ DAILY 28 Days Cipro (Ciprofloxacin Hcl) 250 Mg Tablet 250 Mg PO DAILY 10 Days Lactulose 20 Gm/30 Ml Solution 10 Gm PO PRN TID PRN 10 Days Aspirin Ec (Aspirin) 325 Mg Tablet.dr 325 Mg PO DAILYWBKFT 30 Days Reported Calcium Acetate 667 Mg Tablet 667 Mg PO BID Calcium Acetate 667 Mg Tablet 1,334 Mg PO TIDWMEALS Vitamin D (Cholecalciferol (Vitamin D3)) 50,000 Unit Capsule 50,000 Unit PO DAILY Tizanidine Hcl 2 Mg Capsule 2 Mg PO BID PRN Meclizine Hcl 25 Mg Tablet 1 Tab PO TID Voltaren (Diclofenac Sodium) 100 Gm Gel..gram. 1 Gm TP BID Hydrocodone-Apap 5-325 (Hydrocodone Bit/Acetaminophen) 1 Each Tablet 2 Tab PO PRN Q6HRS PRN Clonidine Hcl 0.2 Mg Tablet 0.2 Mg PO DAILY Gabapentin (Gabapentin) 100 Mg Capsule 100 Mg PO DAILY Zoloft (Sertraline Hcl) 50 Mg Tablet 75 Mg PO DAILY Renvela (Sevelamer Carbonate) 800 Mg Tablet 1 Tab PO TIDWMEALS Levothyroxine Sodium 175 Mcg Tablet 125 Mcg PO DAILYAC Dialyvite Hebo D Tablet (Multivitamin, Min Cmb#25/Fa/D3) 1 Each Tablet 1 Each PO DAILY Metoprolol Succinate ( Xl ) (Metoprolol Succinate) 25 Mg Tab.er.24h 25 Mg PO DAILY Ondansetron Hcl 4 Mg Tablet 4 Mg PO Q6HRS PRN Zolpidem Tartrate 5 Mg Tablet 5 Mg PO PRN QHS PRN Famotidine 20 Mg Tablet 20 Mg PO DAILY Xifaxan (Rifaximin) 550 Mg Tablet 1 Tab PO BID Isosorbide Dinitrate 30 Mg Tablet 1 Tab PO DAILY Vital Signs Vital Signs Date Time Temp Pulse Resp B/P (MAP) Pulse Ox O2 Delivery O2 Flow Rate FiO2 10/26/18 12:30 95 Nasal Cannula 2.0 10/26/18 11:00 98.4 62 16 111/29 (56) 98.4 Labs Laboratory Tests Test 10/24/18 15:45 10/24/18 21:33 10/25/18 04:30 10/25/18 08:00 Glucose (Fingerstick) 130 mg/dL (70-99) 192 mg/dL (70-99) 237 mg/dL (70-99) White Blood Count 4.6 x10^3/uL (4.0-11.0) Red Blood Count 2.70 x10^6/uL (3.50-5.40) Hemoglobin 8.2 g/dL (12.0-15.5) Hematocrit 25.2 % (36.0-47.0) Mean Corpuscular Volume 93 fL (79-100) Mean Corpuscular Hemoglobin 31 pg (25-35) Mean Corpuscular Hemoglobin Concent 33 g/dL (31-37) Red Cell Distribution Width 16.8 % (11.5-14.5) Platelet Count 61 x10^3/uL (140-400) Neutrophils (%) (Auto) 80 % (31-73) Lymphocytes (%) (Auto) 10 % (24-48) Monocytes (%) (Auto) 8 % (0-9) Eosinophils (%) (Auto) 2 % (0-3) Basophils (%) (Auto) 1 % (0-3) Neutrophils # (Auto) 3.7 x10^3uL (1.8-7.7) Lymphocytes # (Auto) 0.4 x10^3/uL (1.0-4.8) Monocytes # (Auto) 0.4 x10^3/uL (0.0-1.1) Eosinophils # (Auto) 0.1 x10^3/uL (0.0-0.7) Basophils # (Auto) 0.0 x10^3/uL (0.0-0.2) Sodium Level 140 mmol/L (136-145) Potassium Level 3.8 mmol/L (3.5-5.1) Chloride Level 103 mmol/L (98-107) Carbon Dioxide Level 30 mmol/L (21-32) Anion Gap 7 (6-14) Blood Urea Nitrogen 16 mg/dL (7-20) Creatinine 3.0 mg/dL (0.6-1.0) Estimated GFR (Cockcroft-Gault) 15.3 BUN/Creatinine Ratio 5 (6-20) Glucose Level 227 mg/dL (70-99) Calcium Level 7.8 mg/dL (8.5-10.1) Total Bilirubin 0.8 mg/dL (0.2-1.0) Aspartate Amino Transf (AST/SGOT) 21 U/L (15-37) Alanine Aminotransferase (ALT/SGPT) 14 U/L (14-59) Alkaline Phosphatase 94 U/L (46-116) Total Protein 6.3 g/dL (6.4-8.2) Albumin 2.2 g/dL (3.4-5.0) Albumin/Globulin Ratio 0.5 (1.0-1.7) Test 10/25/18 11:55 10/25/18 16:47 10/25/18 19:07 10/26/18 07:47 Glucose (Fingerstick) 209 mg/dL (70-99) 192 mg/dL (70-99) 171 mg/dL (70-99) 197 mg/dL (70-99) Test 10/26/18 11:54 Glucose (Fingerstick) 221 mg/dL (70-99) Laboratory Tests Test 10/25/18 16:47 10/25/18 19:07 10/26/18 07:47 10/26/18 11:54 Glucose (Fingerstick) 192 mg/dL (70-99) 171 mg/dL (70-99) 197 mg/dL (70-99) 221 mg/dL (70-99) Allergies Allergies Coded Allergies Type Severity Reaction Last Updated Verified adhesive Allergy Intermediate Rash 10/15/18 Yes Disposition/Orders: Other (to snf bed abhi) Patient Instructions d/c planning 39 min FEROZ KELLY MD Oct 26, 2018 14:13
[2018-10-26] MEDS ORDERED: AMOX1TAB10 PO (14:16)
--- NOTE | 2018-10-26 14:18 | DISCH ---
DISCHARGE DISCHARGE INFORMATION: FINAL DIAGNOSIS Problems Medical Problems: (1) Cirrhosis of liver with ascites Status: Acute (2) Hyperglycemia Status: Acute (3) Open wound of right foot Status: Acute (4) UTI (urinary tract infection) Status: Acute CONDITION ON DISCHARGE: Stable CODE STATUS: Code Status: Full [facility]: SNF STAY <30 DAYS: Yes HOSPICE: HOSPICE: No HOSPICE EVAL & TREAT: No LTAC: ADMIT TO LTAC: No POST DISCHARGE ORDERS: ACTIVITY ORDERS: Other, see below WEIGHT BEARING STATUS: Other, see below BATHING ORDERS: No Tub Bath until see DIET AFTER DISCHARGE: Renal WOUND/INCISION CARE: Change dressing CHECKS AFTER DISCHARGE: CHECKS AFTER DISCHARGE: Check blood press - daily, Check blood sugar, ac/hs TREATMENT/EQUIPMENT ORDERS: ADAPTIVE EQUIPMENT NEEDED: None RESPIRATORY EQUIPMENT NEEDED: Oxygen Physical Therapy For: Evalulation/Treatment Occupational Therapy For: Evaluation/Treatment Speech Language Pathology For: Evaluation/Treatment DISCHARGE MEDICATIONS: Home Meds Active Scripts Amoxicillin/Potassium Clav (AMOX TR-K CLV 500-125 MG TAB) 1 Each Tablet, 1 TAB PO BID for infection for 7 Days, #14 TAB Prov:FEROZ KELLY MD 10/26/18 Ondansetron Hcl (ZOFRAN) 4 Mg Tablet, 1 TAB PO Q6HRS, #20 TAB Prov:VANIA CASAREZ APRN 10/15/18 Insulin Lispro (HUMALOG) 100 Unit/1 Ml Insuln.pen, 5 UNITS SQ TIDWMEALS for glucose for 28 Days, #2 EACH Prov:FEROZ KELLY MD 09/11/18 Lactobacillus Rhamnosus Gg (CULTURELLE) 1 Each Cap.sprink, 1 CAP PO BID for supplement for 28 Days, #56 CAP Prov:FEROZ KELLY MD 09/11/18 Insulin Glargine,Hum.rec.anlog (LANTUS SOLOSTAR) 100 Unit/1 Ml Insuln.pen, 15 UNITS SQ DAILY for glucose for 28 Days, EACH Prov:FEROZ KELLY MD 09/11/18 Lactulose (LACTULOSE) 20 Gm/30 Ml Solution, 10 GM PO PRN TID PRN for CONSTIPATION for 10 Days, MISC Prov:HANNA VILLEGAS MD 06/20/18 Aspirin (ASPIRIN EC) 325 Mg Tablet.dr 325 MG PO DAILYWBKFT for 30 Days, #30 TAB.SR Prov:LETICIA BYRNES MD 03/18/17 Reported Medications Calcium Acetate (CALCIUM ACETATE) 667 Mg Tablet, 667 MG PO BID for SUPPLEMENT , CAP 10/15/18 Calcium Acetate (CALCIUM ACETATE) 667 Mg Tablet, 1334 MG PO TIDWMEALS for SUPPLEMENT , CAP 10/15/18 Cholecalciferol (Vitamin D3) (Vitamin D) 50,000 Unit Capsule, 59707 UNIT PO DAILY, CAP 03/31/17 Tizanidine Hcl (TIZANIDINE HCL) 2 Mg Capsule, 2 MG PO BID PRN for MUSCLE SPASMS , CAP 03/31/17 Meclizine Hcl (MECLIZINE HCL) 25 Mg Tablet, 1 TAB PO TID, #90 TAB 03/31/17 Diclofenac Sodium (VOLTAREN) 100 Gm Gel..gram., 1 GM TP BID, #100 GM 2 Refills 03/31/17 Hydrocodone Bit/Acetaminophen (HYDROCODONE-APAP 5-325 ) 1 Each Tablet, 2 TAB PO PRN Q6HRS PRN for PAIN, TAB 0 Refills 03/15/17 Clonidine Hcl (CLONIDINE HCL) 0.2 Mg Tablet, 0.2 MG PO DAILY, TAB 03/15/17 Gabapentin (GABAPENTIN ) 100 Mg Capsule, 100 MG PO DAILY, CAP 03/15/17 Sertraline Hcl (ZOLOFT) 50 Mg Tablet, 75 MG PO DAILY for ANTI-DEPRESSANT, TAB 0 Refills 03/15/17 Sevelamer Carbonate (RENVELA) 800 Mg Tablet, 1 TAB PO TIDWMEALS, #270 TAB 3 Refills 03/15/17 Levothyroxine Sodium (LEVOTHYROXINE SODIUM) 175 Mcg Tablet, 125 MCG PO DAILYAC for THYROID SUPPLEMENT, #30 TAB 0 Refills 03/15/17 Multivitamin, Min Cmb#25/Fa/D3 (DIALYVITE SUPREME D TABLET) 1 Each Tablet, 1 EACH PO DAILY, TAB 03/15/17 Metoprolol Succinate (METOPROLOL SUCCINATE ( XL )) 25 Mg Tab.er.24h, 25 MG PO DAILY for FOR HYPERTENSION, #30 TAB 0 Refills 12/05/16 Ondansetron Hcl (ONDANSETRON HCL) 4 Mg Tablet, 4 MG PO Q6HRS PRN for NAUSEA/ VOMITING, TAB 05/30/16 Zolpidem Tartrate (ZOLPIDEM TARTRATE) 5 Mg Tablet, 5 MG PO PRN QHS PRN for INSOMNIA, TAB 0 Refills 05/30/16 Famotidine (FAMOTIDINE) 20 Mg Tablet, 20 MG PO DAILY, TAB 12/29/15 Rifaximin (XIFAXAN) 550 Mg Tablet, 1 TAB PO BID, #28 TAB 12/12/15 Isosorbide Dinitrate (ISOSORBIDE DINITRATE) 30 Mg Tablet, 1 TAB PO DAILY 09/22/13 Discontinued Scripts Cephalexin (CEPHALEXIN) 500 Mg Tablet, 1 TAB PO BID, #14 TAB Prov:VANIA CASAREZ APRN 10/15/18 Ciprofloxacin Hcl (CIPRO) 250 Mg Tablet, 250 MG PO DAILY for infection for 10 Days, #10 TAB Prov:FEROZ KELLY MD 09/11/18 FEROZ KELLY MD Oct 26, 2018 14:18
[2018-10-26 15:00] VITALS: BP 127/89
--- NOTE | 2018-10-26 15:13 | NUR ---
SW following. SW faxed discharge paperwork. Awaiting transport time from [facility]. Pt choice and rights letter signed and placed on chart. RN notified.
--- NOTE | 2018-10-26 15:56 | NUR ---
SW following. [facility] will transport pt at 1830. RN notified.
--- NOTE | 2018-10-26 19:19 | NUR ---
Discharge Note: [facility] Discharge instructions and discharge home medications reviewed with Other facility and a copy given. All questions have been answered and understanding verbalized. The following instructions and handouts were given: BKA Discontinued lines and drains: Peripheral IV intact. Patient discharged to Rehab Facility with Self via Wheelchair
== END 2018-10-26 19:21 | DRG 853 ==
LOC: ER 13:24 → 5 SOUTH 18:40
PROVIDERS: ADMIT Internal Medicine; ATTEND Internal Medicine
PROC: 5A1D70Z Performance of Urinary Filtration, Intermittent, Less than 6 Hours Per Day (ICD-10-PCS; 2018-10-17)
PROC: 5A1D70Z Performance of Urinary Filtration, Intermittent, Less than 6 Hours Per Day (ICD-10-PCS; 2018-10-20)
PROC: 0Y6H0Z2 Detachment at Right Lower Leg, Mid, Open Approach (ICD-10-PCS; principal; 2018-10-21 13:00)
PROC: 5A1D70Z Performance of Urinary Filtration, Intermittent, Less than 6 Hours Per Day (ICD-10-PCS; 2018-10-22)
PROC: 5A1D70Z Performance of Urinary Filtration, Intermittent, Less than 6 Hours Per Day (ICD-10-PCS; 2018-10-24)
DX: A41.9 Sepsis, unspecified organism (principal); N18.6 End stage renal disease; E43 Unspecified severe protein-calorie malnutrition; E11.52 Type 2 diabetes mellitus with diabetic peripheral angiopathy with gangrene; I96 Gangrene, not elsewhere classified; N39.0 Urinary tract infection, site not specified; I13.2 Hypertensive heart and chronic kidney disease with heart failure and with stage 5 chronic kidney disease, or end stage renal disease; K76.6 Portal hypertension; R18.8 Other ascites; L03.115 Cellulitis of right lower limb; I50.9 Heart failure, unspecified; E78.5 Hyperlipidemia, unspecified; Z68.31 Body mass index [BMI] 31.0-31.9, adult; E11.65 Type 2 diabetes mellitus with hyperglycemia; E66.9 Obesity, unspecified; E11.22 Type 2 diabetes mellitus with diabetic chronic kidney disease; Z99.2 Dependence on renal dialysis; E03.9 Hypothyroidism, unspecified; E11.42 Type 2 diabetes mellitus with diabetic polyneuropathy; E11.621 Type 2 diabetes mellitus with foot ulcer; E11.622 Type 2 diabetes mellitus with other skin ulcer; E78.00 Pure hypercholesterolemia, unspecified; F32.9 Major depressive disorder, single episode, unspecified; F41.9 Anxiety disorder, unspecified; G47.33 Obstructive sleep apnea (adult) (pediatric); K21.9 Gastro-esophageal reflux disease without esophagitis; K74.60 Unspecified cirrhosis of liver; M19.90 Unspecified osteoarthritis, unspecified site; K80.20 Calculus of gallbladder without cholecystitis without obstruction; L97.519 Non-pressure chronic ulcer of other part of right foot with unspecified severity; M75.121 Complete rotator cuff tear or rupture of right shoulder, not specified as traumatic; M79.3 Panniculitis, unspecified; D63.8 Anemia in other chronic diseases classified elsewhere; N64.4 Mastodynia; R04.0 Epistaxis; Z89.431 Acquired absence of right foot; S91.301A Unspecified open wound, right foot, initial encounter; X58.XXXA Exposure to other specified factors, initial encounter; Z82.49 Family history of ischemic heart disease and other diseases of the circulatory system; Z83.3 Family history of diabetes mellitus; Z86.73 Personal history of transient ischemic attack (TIA), and cerebral infarction without residual deficits; Z90.710 Acquired absence of both cervix and uterus; Z91.19 Patient's noncompliance with other medical treatment and regimen; Z79.4 Long term (current) use of insulin; Z87.01 Personal history of pneumonia (recurrent); Z68.34 Body mass index [BMI] 34.0-34.9, adult; Z91.048 Other nonmedicinal substance allergy status; Y93.89 Activity, other specified; Y92.89 Other specified places as the place of occurrence of the external cause; Y99.8 Other external cause status
CPT/HCPCS: 36415; 71045; 73030; 73221; 73700; 74176; 80048; 80053; 80069; 80202; 81001; 82140; 82553; 82962; 83036; 83605; 83735; 83880; 84484; 85007; 85025; 85610; 85651; 86140; 86850; 86900; 86901; 87086; 87493; 88307; 88311; 93005; 93926; 96374; A7015; J0696; J1030; J1100; J1815; J2001; J2270; J2405; J2543; J2704; J3010; J3370; J3490; J7040; 97110; 97530; 97535; 99285-25

== ENCOUNTER 2018-11-25 08:14 | Emergency (ER) | payer MEDICARE, OTHER ==
[~2018-11-25] VITALS: Ht 152.4 cm; Wt 81.6 kg
[~2018-11-25 08:14] MED LIST changes: +AMOX1TAB10 PO; +CALC667T4 PO; +CEPH500T PO; +ONDA4TAB7 PO
[2018-11-25 09:27] LABS: CALCIUM 8.8 mg/dL (8.5-10.1); CREATININE 4.5 mg/dL (0.6-1.0); GFR 9.6; POTASSIUM 4.8 mmol/L (3.5-5.1)
[2018-11-25 09:31] LABS: PROTHROMBIN TIME PATIENT 18.7 SEC (11.7-14.0)
[2018-11-25 09:33] LABS: ALBUMIN 2.2 g/dL (3.4-5.0); ALBUMIN/GLOBULIN RATIO 0.4 (1.0-1.7); TOTAL BILIRUBIN 0.9 mg/dL (0.2-1.0); TOTAL PROTEIN 7.4 g/dL (6.4-8.2)
--- NOTE | 2018-11-25 09:42 | PHYS DOC ---
Past Medical History Past Medical History: Anxiety, COPD, CVA, Depression, Diabetes-Type II, Hypertension, Hypothyroid, Hepatitis, Liver Disease, Renal Failure, Other Additional Past Medical Histor: CIRRHOSIS Past Surgical History: Hysterectomy Additional Past Surgical Histo: cataracts, L knee, bilat carpal tunnel, R trigger finger, R foot, R BKA Alcohol Use: None Drug Use: None Adult General Chief Complaint Chief Complaint: OTHER COMPLAINTS HPI HPI Patient is a 73 year old female who presents with fatigue and left leg pain. 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 nurse sent her here today because she was concerned about change in color of skin and no pulse in the left leg which rn thought was new. on further questioning, jose luis , who is a medic thinks there is pulse and that everything is stable. She reports that she has had some pain in her leg for the last few days. She reports taking an antibiotic for her wound but does not know which one. She denies chest pain, shortness of breath, abdominal pain, hematemesis, hematochezia. She receives dialysis Friday, , Friday and no longer makes urine. She reports that she is sometimes fatigued after dialysis. She is cared for at [facility]. Review of Systems Review of Systems Constitutional: Reports resolved fever, denies chills. Reports continued fatigue and pain in R-BKA wound.[] Eyes: Denies change in visual acuity, redness, or eye pain [] HENT: Denies nasal congestion or sore throat [] Respiratory: Reports intermittent cough, reports 2L O2 normally but denies change in respiration, denies shortness of breath [] Cardiovascular: Reports murmur [] GI: Reports nausea and one episode of vomiting yesterday. Denies abdominal pain , bloody stools or diarrhea [] : Pt is anuric and is on dialysis T// [] Musculoskeletal: Denies back pain or joint pain [] Integument: Ulcerative wound on R-BKA[] Neurologic: Denies headache, focal weakness or sensory changes [] Endocrine: Denies polyuria or polydipsia [] All other systems were reviewed and found to be within normal limits, except as documented in this note. Current Medications Current Medications see med list Allergies Allergies Allergies Coded Allergies Type Severity Reaction Last Updated Verified adhesive Allergy Intermediate Rash 10/15/18 Yes Physical Exam Physical Exam Constitutional: Well developed, well nourished, no acute distress, non-toxic appearance, appears fatigued. [] HENT: Normocephalic, atraumatic, bilateral external ears normal, oropharynx moist, no oral exudates, nose normal. [] Eyes: PERRLA, EOMI, conjunctiva normal, no discharge. [] Neck: Normal range of motion, no tenderness, supple, no stridor. [] Cardiovascular:Heart rate regular rate and rhythm, 3/6 systolic murmur, no carotid bruits auscultated [] Lungs & Thorax: Bilateral breath sounds clear to auscultation [] Abdomen: Bowel sounds normal, ttp mild RLQ, multiple large, edema subq noted on lower abdcomen, reducible umbilical hernia, no pulsatile masses. [] Skin: Warm, dry, no erythema, no rash. [] Back: No tenderness, no CVA tenderness. [] Extremities: R-BKA amputation with 1x1 ulcerative wound on lateral edge of amputation, wound is wrapped with wound vac in place. No purulence, odor, erythema, or necrosis observed. Left lower pedal pulse palpable and doplerable. chronic appearing skin changes, foot is warm, no ulcer. Neurologic: Alert and oriented X 3, normal motor function, normal sensory function, no focal deficits noted. [] Psychologic: Affect normal, judgement normal, mood normal. [] Current Patient Data Vital Signs Vital Signs Date Time Temp Pulse Resp B/P (MAP) Pulse Ox O2 Delivery O2 Flow Rate FiO2 11/25/18 11:30 56 18 166/84 (111) 98 Nasal Cannula 2.0 11/25/18 08:24 98.9 98.9 Lab Values Laboratory Tests Test 11/25/18 08:45 11/25/18 10:10 Prothrombin Time 18.7 SEC (11.7-14.0) H Prothrombin Time INR 1.6 (0.8-1.1) H Sodium Level 142 mmol/L (136-145) Potassium Level 4.8 mmol/L (3.5-5.1) Chloride Level 105 mmol/L (98-107) Carbon Dioxide Level 29 mmol/L (21-32) Anion Gap 8 (6-14) Blood Urea Nitrogen 25 mg/dL (7-20) H Creatinine 4.5 mg/dL (0.6-1.0) H Estimated GFR (Cockcroft-Gault) 9.6 BUN/Creatinine Ratio 6 (6-20) Glucose Level 202 mg/dL (70-99) H Calcium Level 8.8 mg/dL (8.5-10.1) Total Bilirubin 0.9 mg/dL (0.2-1.0) Aspartate Amino Transferase (AST) 30 U/L (15-37) Alanine Aminotransferase (ALT) 17 U/L (14-59) Alkaline Phosphatase 182 U/L (46-116) H Total Protein 7.4 g/dL (6.4-8.2) Albumin 2.2 g/dL (3.4-5.0) L Albumin/Globulin Ratio 0.4 (1.0-1.7) L White Blood Count 4.3 x10^3/uL (4.0-11.0) Red Blood Count 3.08 x10^6/uL (3.50-5.40) L Hemoglobin 9.3 g/dL (12.0-15.5) L Hematocrit 28.9 % (36.0-47.0) L Mean Corpuscular Volume 94 fL (79-100) Mean Corpuscular Hemoglobin 30 pg (25-35) Mean Corpuscular Hemoglobin Concent 32 g/dL (31-37) Red Cell Distribution Width 18.7 % (11.5-14.5) H Platelet Count 51 x10^3/uL (140-400) L Neutrophils (%) (Auto) 72 % (31-73) Lymphocytes (%) (Auto) 14 % (24-48) L Monocytes (%) (Auto) 9 % (0-9) Eosinophils (%) (Auto) 4 % (0-3) H Basophils (%) (Auto) 1 % (0-3) Neutrophils # (Auto) 3.1 x10^3uL (1.8-7.7) Lymphocytes # (Auto) 0.6 x10^3/uL (1.0-4.8) L Monocytes # (Auto) 0.4 x10^3/uL (0.0-1.1) Eosinophils # (Auto) 0.2 x10^3/uL (0.0-0.7) Basophils # (Auto) 0.1 x10^3/uL (0.0-0.2) Laboratory Tests 11/25/18 10:10 Laboratory Tests 11/25/18 08:45 EKG EKG [] Radiology/Procedures Radiology/Procedures [] Impressions: IMPRESSION: 1. Atherosclerotic plaque throughout the left lower extremity arteries from the superficial femoral artery to the calf arteries. There is a relatively elevated peak systolic velocity within the anterior tibial artery which may be due to hemodynamically significant stenosis. No occlusion is seen. 2. 4.6 cm left Yeboah's cyst and soft tissue edema along the medial left knee. Electronically signed by: Sienna Chavez MD (11/25/2018 10:26 AM) [facility] Course & Med Decision Making Course & Med Decision Making Pertinent Labs and Imaging studies reviewed. (See chart for details) Pt brought to ER for alleged pulseless LLE per rn at [facility]. Conducting arterial study of LLE. Recommend continuing wound vac and antibiotic therapy. Review ultrasound patient does have a pulse does have some peripheral arterial disease but I doubt that it is acute the foot is warm the granddaughter thinks that her left foot and leg looked the same as they always have for the last 10 years. She'll be discharged in stable condition she is currently on aspirin I think is okay to continue that and she should have routine follow-up with her doctor. Right BKA appears to be intact without obvious new infection wound VAC is in place advised to continue to complete her antibiotics and can go back to the SNF at this time []Basic labs were essentially stable Dragon Disclaimer Dragon Disclaimer This electronic medical record was generated, in whole or in part, using a voice recognition dictation system. Departure Departure Impression: Primary Impression: Peripheral arterial disease Disposition: HOME, SELF-CARE Condition: STABLE Referrals: RENEE PALMER MD (PCP) JIHAN GILLIAM MD Nov 25, 2018 09:42
[2018-11-25 10:16] LABS: BASO # 0.1 x10^3/uL (0.0-0.2); BASO % 1 % (0-3); EOS # 0.2 x10^3/uL (0.0-0.7); EOS % 4 % (0-3); HEMATOCRIT 28.9 % (36.0-47.0); HEMOGLOBIN 9.3 g/dL (12.0-15.5); LYMPH # 0.6 x10^3/uL (1.0-4.8); LYMPH % 14 % (24-48); MEAN CORPUSCULAR HEMOGLOBIN 30 pg (25-35); MEAN CORPUSCULAR HGB CONC 32 g/dL (31-37); MEAN CORPUSCULAR VOLUME 94 fL (79-100); MONO # 0.4 x10^3/uL (0.0-1.1); MONO % 9 % (0-9); NEUT # 3.1 x10^3uL (1.8-7.7); NEUT % 72 % (31-73); PLATELET COUNT 51 x10^3/uL (140-400); RED BLOOD COUNT 3.08 x10^6/uL (3.50-5.40); RED CELL DISTRIBUTION WIDTH 18.7 % (11.5-14.5); WHITE BLOOD COUNT 4.3 x10^3/uL (4.0-11.0)
--- NOTE | 2018-11-25 10:29 | RAD ---
EXAM: Left lower extremity arterial Doppler sonogram. HISTORY: Peripheral artery disease. Skin color changes in left lower extremity. TECHNIQUE: Hernandez scale and color Doppler sonographic imaging of the left lower extremity arteries with spectral waveform analysis was performed. COMPARISON: None. FINDINGS: There are biphasic waveforms throughout the left lower extremity arteries. There is atherosclerotic plaque within the superficial femoral, popliteal and calf arteries. There is soft tissue edema along the medial left knee and there is a Yeboah's cyst within the left popliteal fossa measuring 4.6 cm in maximum dimension. The peak systolic velocities within the left lower extremity arteries measure 136 cm/s within the common femoral artery, 86 cm/s within the deep femoral artery, 73 cm/s within the proximal superficial femoral artery, 116 cm/s within the mid superficial femoral artery, 78 cm/s within the distal superficial femoral artery, 88 cm/s within the popliteal artery, 58 cm/s within the posterior tibial artery, 61 cm/s within the peroneal artery, 142 cm/s within the anterior tibial artery, and 78 cm/s within the dorsalis pedis artery. IMPRESSION: 1. Atherosclerotic plaque throughout the left lower extremity arteries from the superficial femoral artery to the calf arteries. There is a relatively elevated peak systolic velocity within the anterior tibial artery which may be due to hemodynamically significant stenosis. No occlusion is seen. 2. 4.6 cm left Yeboah's cyst and soft tissue edema along the medial left knee. Electronically signed by: Sienna Chavez MD (11/25/2018 10:26 AM) [facility]
[2018-11-25 11:30] VITALS: BP 166/84
== END 2018-11-25 11:27 | disposition home or self-care (01) ==
LOC: ER 08:14
DX: I73.9 Peripheral vascular disease, unspecified (principal); J44.9 Chronic obstructive pulmonary disease, unspecified; E03.9 Hypothyroidism, unspecified; I12.9 Hypertensive chronic kidney disease with stage 1 through stage 4 chronic kidney disease, or unspecified chronic kidney disease; E11.22 Type 2 diabetes mellitus with diabetic chronic kidney disease; N18.9 Chronic kidney disease, unspecified; Z99.2 Dependence on renal dialysis; Z86.73 Personal history of transient ischemic attack (TIA), and cerebral infarction without residual deficits; Z88.8 Allergy status to other drugs, medicaments and biological substances
CPT/HCPCS: 36415; 36556; 80053; 85025; 85610; 93923; 99285-25

== ENCOUNTER 2018-12-06 16:11 | Inpatient (IN) | payer MEDICARE, OTHER ==
[~2018-12-06] VITALS: Ht 152.4 cm; Wt 88.5 kg
[2018-12-06] MEDS ORDERED: IV NORMAL SALINE 500ML BAG 500 ML IV ONE (16:45)
[2018-12-06] MEDS ORDERED: CONTRAST GIVEN. MC PRN (16:45)
[2018-12-06] MEDS ORDERED: IOHEXOL 300 MG/ML 100ML VIAL. IV ONE ×2 (16:45)
--- NOTE | 2018-12-06 17:05 | PHYS DOC ---
Past Medical History Past Medical History: Anxiety, COPD, CVA, Depression, Diabetes-Type II, Hypertension, Hypothyroid, Hepatitis, Liver Disease, Renal Failure, Other Additional Past Medical Histor: CIRRHOSIS Past Surgical History: Hysterectomy Additional Past Surgical Histo: cataracts, L knee, bilat carpal tunnel, R trigger finger, R foot, R BKA Alcohol Use: None Drug Use: None Adult General Chief Complaint Chief Complaint: ALTERED MENTAL STATUS HPI HPI 73 y/o female presents to ER via EMS from local rehab center for reports pt has had decreased LOC of consciousness today. EMS reported family had wanted pt evaluated as was less alert today around 1 p.m. Per rehab paperwork pt was admitted to that facility 10/26/18. Her MAR shows pt is on daily aspirin no other blood thinners. Pt on arrival is A&Ox3 during discussion she appears to go to sleep- easily aroused by voice command. She reports she fell at 3 a.m. striking her lt side posterior head/lt side of head and lt side back on floor. Pt states she remembers looking at the clock when she fell out of bed so she knew what time fall occurred. Pt has bruising to those areas and lt knee. She has bruising to rt upper arm above dialysis cath with sm. bruise rt lateral neck/ clavicle area. She denies CP, SOA, abd pain, or nausea. Accu check on arrival 84. 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 Dialysis pt schedule , th, sat. Rt upper arm dialysis cath. Review of Systems Review of Systems Constitutional: Denies fever or chills. Reports feeling fatigued Eyes: Denies change in visual acuity, redness, or eye pain [] HENT: Denies nasal congestion or sore throat [] Respiratory: Denies cough or shortness of breath [] Cardiovascular: Denies CP GI: Denies abdominal pain, nausea, vomiting, bloody stools or diarrhea [] : Denies dysuria or hematuria [] Musculoskeletal: Denies back pain or joint pain [] Integument: Denies rash or skin lesions [] Neurologic: Denies headache, focal weakness or sensory changes [] Endocrine: Denies polyuria or polydipsia [] All other systems were reviewed and found to be within normal limits, except as documented in this note. Current Medications Current Medications Current Medications Medications (Trade) Dose Ordered Sig/Vijay Start Time Stop Time Status Last Admin Dose Admin Dextrose (Dextrose 50%-Water Syringe) 12.5 gm 1X ONCE 12/06/18 18:00 12/06/18 18:03 DC 12/06/18 18:11 12.5 GM Info (CONTRAST GIVEN -- Rx MONITORING) 1 each PRN DAILY PRN 12/06/18 16:45 12/08/18 16:44 DC Iohexol (Omnipaque 300 Mg/ml) 60 ml 1X ONCE 12/06/18 16:45 12/06/18 16:46 DC 12/06/18 16:45 60 ML Sodium Chloride 500 ml @ 500 mls/hr 1X ONCE 12/06/18 16:45 12/06/18 17:44 DC 12/06/18 18:13 500 MLS/HR Allergies Allergies Allergies Coded Allergies Type Severity Reaction Last Updated Verified adhesive Allergy Intermediate Rash 10/15/18 Yes Physical Exam Physical Exam Constitutional: Well developed, well nourished, no acute distress, non-toxic appearance. Lethargic during exam- will wake to verbal command and is answering questions appropriately HENT: Normocephalic, tender lt posterior head with swelling no ecchymosis/wound - lt ear at helix area with ecchymosis no wounds. bilat ear exam NL with no drainage in canals or erythema. No ecchymosis behind ear, oropharynx moist, no oral injuries, nose normal. [] Eyes: 3mm PERRLA, no nystagmus, conjunctiva normal, no discharge. [] Neck: Normal range of motion, no tenderness on palp. mid cspine- no palp. deformity/crepitus, supple, no stridor. Trachea midline. Bruising to rt lateral neck into clavicle area- no crepitus/deformity or swelling Cardiovascular: Heart rate regular rhythm, no murmur [] Lungs & Thorax: Bilateral breath sounds clear to auscultation- resp. equal/ nonlabored Abdomen: Bowel sounds normal, soft, no tenderness- no distention/rigidity, no visible injury on abd, no masses, no pulsatile masses. [] Skin: Warm, dry Back: Ecchymosis lt flank area- tender on palp. No midline spinal tenderness or palp. deformity, no CVA tenderness. [] Extremities: Pelvis stable/nontender. Abrasion/ecchymosis lt anterior knee- tender on palp. with no palp. deformity/crepitus. Wound vac rt BKA stump- bloody drainage at in tubing. Stump is purplish in color and tender on palp. No cyanosis, no clubbing, ROM intact- slow purposeful movements, no edema. [] Neurologic: Alert and oriented X 3, normal motor function, normal sensory function, no focal deficits noted. [] Psychologic: Affect normal, judgement normal, no anxiety/restlessness. [] Current Patient Data Vital Signs Vital Signs Date Time Temp Pulse Resp B/P (MAP) Pulse Ox O2 Delivery O2 Flow Rate FiO2 12/06/18 19:28 62 18 95 12/06/18 16:11 98.6 210/85 (126) Room Air 98.6 Lab Values Laboratory Tests Test 12/06/18 16:24 12/06/18 17:45 12/06/18 17:59 12/06/18 18:56 Glucose (Fingerstick) 84 mg/dL (70-99) 71 mg/dL (70-99) White Blood Count 5.7 x10^3/uL (4.0-11.0) Red Blood Count 3.63 x10^6/uL (3.50-5.40) Hemoglobin 11.0 g/dL (12.0-15.5) L Hematocrit 34.1 % (36.0-47.0) L Mean Corpuscular Volume 94 fL (79-100) Mean Corpuscular Hemoglobin 30 pg (25-35) Mean Corpuscular Hemoglobin Concent 32 g/dL (31-37) Red Cell Distribution Width 18.9 % (11.5-14.5) H Platelet Count 73 x10^3/uL (140-400) L Neutrophils (%) (Auto) 71 % (31-73) Lymphocytes (%) (Auto) 15 % (24-48) L Monocytes (%) (Auto) 10 % (0-9) H Eosinophils (%) (Auto) 3 % (0-3) Basophils (%) (Auto) 1 % (0-3) Neutrophils # (Auto) 4.0 x10^3uL (1.8-7.7) Lymphocytes # (Auto) 0.9 x10^3/uL (1.0-4.8) L Monocytes # (Auto) 0.5 x10^3/uL (0.0-1.1) Eosinophils # (Auto) 0.2 x10^3/uL (0.0-0.7) Basophils # (Auto) 0.1 x10^3/uL (0.0-0.2) Prothrombin Time 18.7 SEC (11.7-14.0) H Prothrombin Time INR 1.6 (0.8-1.1) H PTT 38 SEC (24-38) Sodium Level 140 mmol/L (136-145) Potassium Level 3.8 mmol/L (3.5-5.1) Chloride Level 103 mmol/L (98-107) Carbon Dioxide Level 25 mmol/L (21-32) Anion Gap 12 (6-14) Blood Urea Nitrogen 18 mg/dL (7-20) Creatinine 3.3 mg/dL (0.6-1.0) H Estimated GFR (Cockcroft-Gault) 13.7 BUN/Creatinine Ratio 5 (6-20) L Glucose Level 98 mg/dL (70-99) Lactic Acid Level 2.2 mmol/L (0.4-2.0) H Calcium Level 8.6 mg/dL (8.5-10.1) Magnesium Level 2.1 mg/dL (1.8-2.4) Total Bilirubin 0.9 mg/dL (0.2-1.0) Aspartate Amino Transferase (AST) 27 U/L (15-37) Alanine Aminotransferase (ALT) 19 U/L (14-59) Alkaline Phosphatase 162 U/L (46-116) H Troponin I Quantitative 0.028 ng/mL (0.000-0.055) Total Protein 7.0 g/dL (6.4-8.2) Albumin 2.3 g/dL (3.4-5.0) L Albumin/Globulin Ratio 0.5 (1.0-1.7) L Ammonia 33 mcmol/L (11-34) Laboratory Tests 12/06/18 17:45 Laboratory Tests 12/06/18 17:45 Microbiology 12/06/18 Blood Culture - Preliminary, Resulted NO GROWTH AFTER 2 DAYS EKG EKG EKG obtained 12/06/18 at [address] Bee Sinus rhythm Ltward axis Rate 60 No STEMI Radiology/Procedures Radiology/Procedures PROCEDURE: CT ABD PELV W/ IV CONTRST ONLY Examination: CT ABD PELV W/ IV CONTRST ONLY History: trauma
iv Omni 300 60 mls
previous, pain Comparison/Correlation: 10/15/2018 CT abdomen and pelvis without contrast Findings: Axial images of the abdomen and pelvis were obtained following IV contrast. Sagittal and coronal reformatted images were provided. Small moderate-sized bilateral pleural effusions are present. Minimal adjacent atelectasis noted. Anasarca are noted. Nodular contour of the liver is present. There are 2 low-attenuation lesions involving the inferior aspect of the right hepatic lobe which probably were present cysts. Multiple calculi present within the gallbladder. Spleen is enlarged measuring 16.2 cm longitudinal. Vascular collaterals are notable involving the epigastric region including about the gastroesophageal junction level. Moderate to large amount of ascites and pelvic free fluid noted. Umbilical hernia defect is present with ascites within it. Kidneys are unremarkable. Pancreas is unremarkable. Adrenal glands are unremarkable. Lordosis of the lumbar spine is evident. Facet joint degenerative changes of the lumbar spine are present. Subcutaneous edema is noted involving the proximal right thigh. Impression: Bilateral pleural effusions with adjacent atelectasis. Hepatic cirrhosis with findings of splenomegaly and vascular collaterals. Cholelithiasis. Anasarca. Ascites is notably increased compared to the prior exam. No evidence of organ laceration. PQRS Compliance Statement: One or more of the following individualized dose reduction techniques were utilized for this examination: 1. Automated exposure control 2. Adjustment of the mA and/or kV according to patient size 3. Use of iterative reconstruction technique Electronically signed by: Ángel Hu MD (12/06/2018 6:14 PM) [facility] DICTATED and SIGNED BY: ÁNGEL HU MD DATE: 12/06/181813 Course & Med Decision Making Course & Med Decision Making Pertinent Labs and Imaging studies reviewed. (See chart for details) 1750: Patient returned from CT and appears more confused. She is alert to self and place but seems more lethargic. Patient's initial blood sugar was 84 on recheck at this time she is at 71. 1/2 amp D50 IV was ordered. 1850: Pt's husb. Brown arrived to ER and provided insight into pt's condition. He reports in the past 2-3 weeks patient's mental status has gradually declined with patient having increasingly more episodes of confusion and lethargy. He reports her appetite has been decreased. He reports she has fell out of her floor level bed multiple times. He reports he thought patient's right stump appeared more purplish as well although at this time after patient has had stump elevated while in the ER skin color at stump appears better. Wound drainage in wound VAC tubing is serosanguineous. He reports bruising to rt upper arm and rt side neck not new and rt side neck bruising from attempted IV while inpt from previous hospitalization. Discussed pt being admitted to hospitalist for further care and monitoring and he is agreeable with this plan. Pt had CT abd/pelvis with ascites noted- ammonia was NL on labs. Pt's blood glucose has fluctuated while in the ER pt's husb. reported pt hasn't been eating and facility had been holding insulin however in report EMS had reported pt had received her insulin this morning. Pt's accu check again dropped to 71 so 1/2 amp. D50 ordered. 1945: Spoke with Dr. Cuellar, hospitalist and discussed pt's case and admit plan. Dragon Disclaimer Dragon Disclaimer This electronic medical record was generated, in whole or in part, using a voice recognition dictation system. Departure Departure Impression: Primary Impression: Decreased level of consciousness Additional Impression: Pleural effusion, bilateral Disposition: ADMITTED INPATIENT Admitting Physician: Rosa Maria Cuellar Condition: STABLE Referrals: RENEE PALMER MD (PCP) Problem Qualifiers RENEE GRAY APRN Dec 06, 2018 17:05
[2018-12-06 17:59] LABS: BASO # 0.1 x10^3/uL (0.0-0.2); BASO % 1 % (0-3); EOS # 0.2 x10^3/uL (0.0-0.7); EOS % 3 % (0-3); HEMATOCRIT 34.1 % (36.0-47.0); LYMPH # 0.9 x10^3/uL (1.0-4.8); LYMPH % 15 % (24-48); MEAN CORPUSCULAR HEMOGLOBIN 30 pg (25-35); MEAN CORPUSCULAR HGB CONC 32 g/dL (31-37); MEAN CORPUSCULAR VOLUME 94 fL (79-100); MONO # 0.5 x10^3/uL (0.0-1.1); MONO % 10 % (0-9); NEUT % 71 % (31-73); PLATELET COUNT 73 x10^3/uL (140-400); RED BLOOD COUNT 3.63 x10^6/uL (3.50-5.40); RED CELL DISTRIBUTION WIDTH 18.9 % (11.5-14.5); WHITE BLOOD COUNT 5.7 x10^3/uL (4.0-11.0)
[2018-12-06] MEDS ORDERED: DEXTROSE 50% 25 GM / 50ML DISP.SYRIN. IV ONE ×2 (18:00→20:45)
--- NOTE | 2018-12-06 18:09 | RAD ---
Examination: CT HEAD AND CERVICAL SPINE WO History: fall- hit lt posterior/side of head
previous, pain Comparison/Correlation: 09/04/2017 CT head without contrast Findings: Axial images of the head and cervical spine were obtained without contrast. Sagittal and coronal reformatted images of the cervical spine were provided. Atrophy is present. Chronic ischemic changes white matter noted. Calcification along the tentorium is present. Globes and optic nerves are unremarkable. Atlantoaxial joint degenerative remodeling is present. Minimal anterolisthesis of C4 in relation C5 is present. Significant C5-C6 disc space narrowing is present. Linear lucency involving the right C4 facet is noted at its superior aspect extending intra-articularly on a single sagittal image #33 of series 17. No definite finding of fracture however. Soft tissues of the neck are unremarkable. Carotid bulb calcifications are noted. Impression: No intracranial hemorrhage. Alignment of the cervical spine is within normal limits. No definite findings for fracture. PQRS Compliance Statement: One or more of the following individualized dose reduction techniques were utilized for this examination: 1. Automated exposure control 2. Adjustment of the mA and/or kV according to patient size 3. Use of iterative reconstruction technique Electronically signed by: Ángel Herbert MD (12/06/2018 6:06 PM) [facility]
[2018-12-06 18:10] LABS: PROTHROMBIN TIME PATIENT 18.7 SEC (11.7-14.0)
[2018-12-06 18:11] LABS: CALCIUM 8.6 mg/dL (8.5-10.1); CREATININE 3.3 mg/dL (0.6-1.0); GFR 13.7; POTASSIUM 3.8 mmol/L (3.5-5.1)
[2018-12-06 18:16] LABS: ALBUMIN 2.3 g/dL (3.4-5.0); ALBUMIN/GLOBULIN RATIO 0.5 (1.0-1.7); MAGNESIUM 2.1 mg/dL (1.8-2.4); TOTAL BILIRUBIN 0.9 mg/dL (0.2-1.0)
--- NOTE | 2018-12-06 18:17 | RAD ---
Examination: CT ABD PELV W/ IV CONTRST ONLY History: trauma
iv Omni 300 60 mls
previous, pain Comparison/Correlation: 10/15/2018 CT abdomen and pelvis without contrast Findings: Axial images of the abdomen and pelvis were obtained following IV contrast. Sagittal and coronal reformatted images were provided. Small moderate-sized bilateral pleural effusions are present. Minimal adjacent atelectasis noted. Anasarca are noted. Nodular contour of the liver is present. There are 2 low-attenuation lesions involving the inferior aspect of the right hepatic lobe which probably were present cysts. Multiple calculi present within the gallbladder. Spleen is enlarged measuring 16.2 cm longitudinal. Vascular collaterals are notable involving the epigastric region including about the gastroesophageal junction level. Moderate to large amount of ascites and pelvic free fluid noted. Umbilical hernia defect is present with ascites within it. Kidneys are unremarkable. Pancreas is unremarkable. Adrenal glands are unremarkable. Lordosis of the lumbar spine is evident. Facet joint degenerative changes of the lumbar spine are present. Subcutaneous edema is noted involving the proximal right thigh. Impression: Bilateral pleural effusions with adjacent atelectasis. Hepatic cirrhosis with findings of splenomegaly and vascular collaterals. Cholelithiasis. Anasarca. Ascites is notably increased compared to the prior exam. No evidence of organ laceration. PQRS Compliance Statement: One or more of the following individualized dose reduction techniques were utilized for this examination: 1. Automated exposure control 2. Adjustment of the mA and/or kV according to patient size 3. Use of iterative reconstruction technique Electronically signed by: Ángel Herbert MD (12/06/2018 6:14 PM) [facility]
--- NOTE | 2018-12-06 20:43 | RAD ---
EXAM: 1. Chest one view. 2. Left shoulder 2 views. 3. Left humerus 2 views. 4. Right humerus 2 views. HISTORY: Fall with chest and bilateral arm/shoulder pain. COMPARISON: 03/29/2007. FINDINGS: The heart is moderately enlarged. Interstitial opacities in a perihilar and basilar distribution indicate mild pulmonary edema and atelectasis. There is no pneumothorax or pleural effusion. There are atherosclerotic calcifications of the aorta. There is a chronic healed fracture of the left proximal humerus. No acute fracture is seen within the left shoulder or left humerus. The glenohumeral joint space appears preserved. There is no significant acromioclavicular osteoarthritis for patient change. The alignment at the left elbow appears maintained. No fractures are appreciated in the right humerus. Right acromioclavicular osteoarthritis is mild. There are surgical clips in the medial upper arm. Atherosclerotic calcifications are noted. IMPRESSION: 1. Mild pulmonary edema. Moderate cardiomegaly. 2. No acute fracture. Electronically signed by: Cezar Mitchell MD (12/06/2018 8:40 PM) [facility]
[2018-12-06 22:04] LABS: BASE EXCESS COOX -3 mmol/L (-3-3); HCO3 COOX 23 mmol/L (21-28); METHEMOGLOBIN 0.3 % (0.0-1.9); OXYHEMOGLOBIN 88.8 %; PCO2 COOX 41 mmHg (35-46); PO2 COOX 64 mmHg (65-108); SAT O2 COOX 90 % (92-99)
[2018-12-06] MEDS ORDERED: MELA3TAB2 PO (22:04)
[2018-12-06] MEDS ORDERED: BUSP10TA PO (22:04)
[2018-12-06] MEDS ORDERED: CEPH-264 PO (22:04)
[2018-12-06] MEDS ORDERED: LORA0.5T96 PO (22:04)
[2018-12-06 22:05] VITALS: BP 188/62
--- NOTE | 2018-12-06 22:17 | PDOC1 ---
History and Physical Date of Admission Date of Admission DATE: 12/06/18 TIME: 22:16 History of Present Illness History of Present Illness 73 y/o female presents to ER via EMS from local rehab center for reports pt has had decreased LOC of consciousness today. EMS reported family had wanted pt evaluated as was less alert today around 1 p.m. Per rehab paperwork pt was admitted to that facility 10/26/18. Her MAR shows pt is on daily aspirin no other blood thinners. Pt on arrival is A&Ox3 during discussion she appears to go to sleep- easily aroused by voice command. She reports she fell at 3 a.m. striking her lt side posterior head/lt side of head and lt side back on floor. Pt states she remembers looking at the clock when she fell out of bed so she knew what time fall occurred. Pt has bruising to those areas and lt knee. She has bruising to rt upper arm above dialysis cath with sm. bruise rt lateral neck/ clavicle area. She denies CP, SOA, abd pain, or nausea. Accu check on arrival 84. 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 Dialysis pt schedule , , sat. Rt upper arm dialysis cath. Past Medical History Cardiovascular: CHF, HTN, Hyperlipidemia Pulmonary: COPD, Pneumonia, Other CENTRAL NERVOUS SYSTEM: CVA, Periperal neuropathy GI: GERD Heme/Onc: Anemia NOS Hepatobiliary: Cirrhosis Psych: Anxiety, Depression Musculoskeletal: Osteoarthritis Rheumatologic: No pertinent hx Infectious disease: No pertinent hx Renal/: Chronic renal failure, UTI Endocrine: Diabetes, Hypothyroidism Past Surgical History Past Surgical History: Hysterectomy Family History Family History: Diabetes Social History ALCOHOL: none Drugs: None Current Medications Current Medications Current Medications Sodium Chloride 500 ml @ 500 mls/hr 1X ONCE IV Last administered on at 18:13; Start 12/06/18 at 16:45; Stop 12/06/18 at 17:44; Status DC Iohexol (Omnipaque 300 Mg/ml) 75 ml 1X ONCE IV ; Start 12/06/18 at 16:45; Stop 12/06/18 at 16:46; Status DC Iohexol (Omnipaque 300 Mg/ml) 60 ml 1X ONCE IV Last administered on 12/06/18at 16:45; Start 12/06/18 at 16:45; Stop 12/06/18 at 16:46; Status DC Info (CONTRAST GIVEN -- Rx MONITORING) 1 each PRN DAILY PRN MC SEE COMMENTS; Start 12/06/18 at 16:45; Stop 12/08/18 at 16:44 Dextrose (Dextrose 50%-Water Syringe) 12.5 gm 1X ONCE IV Last administered on 12/06/18at 18:11; Start 12/06/18 at 18:00; Stop 12/06/18 at 18:03; Status DC Dextrose (Dextrose 50%-Water Syringe) 12.5 gm 1X ONCE IV ; Start 12/06/18 at 20 :45; Stop 12/06/18 at 20:46; Status DC Active Scripts Active Zofran (Ondansetron Hcl) 4 Mg Tablet 1 Tab PO Q6HRS Lantus Solostar (Insulin Glargine,Hum.rec.anlog) 100 Unit/1 Ml Insuln.pen 15 Units SQ DAILY 28 Days Lactulose 20 Gm/30 Ml Solution 10 Gm PO PRN TID PRN 10 Days Aspirin Ec (Aspirin) 325 Mg Tablet.dr 325 Mg PO DAILYWBKFT 30 Days Reported Melatonin 3 Mg Tablet 6 Mg PO QHS Keflex (Cephalexin) 500 Mg Capsule 1 Cap PO BID Buspirone Hcl 10 Mg Tablet 10 Mg PO TIDWMEALS Ativan (Lorazepam) 0.5 Mg Tablet 0.5 Mg PO PRN Q6HRS PRN Calcium Acetate 667 Mg Tablet 667 Mg PO TIDWMEALS Tizanidine Hcl 2 Mg Capsule 2 Mg PO BID PRN Meclizine Hcl 25 Mg Tablet 1 Tab PO TID Voltaren (Diclofenac Sodium) 100 Gm Gel..gram. 1 Gm TP BID Hydrocodone-Apap 5-325 (Hydrocodone Bit/Acetaminophen) 1 Each Tablet 2 Tab PO PRN Q6HRS PRN Clonidine Hcl 0.2 Mg Tablet 0.2 Mg PO DAILY Gabapentin (Gabapentin) 100 Mg Capsule 100 Mg PO DAILY Zoloft (Sertraline Hcl) 50 Mg Tablet 75 Mg PO DAILY Renvela (Sevelamer Carbonate) 800 Mg Tablet 1 Tab PO TIDWMEALS Levothyroxine Sodium 175 Mcg Tablet 125 Mcg PO DAILYAC Dialyvite [place] D Tablet (Multivitamin, Min Cmb#25/Fa/D3) 1 Each Tablet 1 Each PO DAILY Metoprolol Succinate ( Xl ) (Metoprolol Succinate) 25 Mg Tab.er.24h 25 Mg PO DAILY Famotidine 20 Mg Tablet 20 Mg PO DAILY Isosorbide Dinitrate 30 Mg Tablet 1 Tab PO DAILY Allergies Allergies: Coded Allergies: adhesive (Verified Allergy, Intermediate, Rash, 10/15/18) TAPE ROS General: YES: Chills, Fatigue, Malaise PSYCHOLOGICAL ROS: YES: Memory difficulties, Sleep disturbances; No: Anxiety, Behavioral Disorder, Concentration difficultie, Decreased libido , Depression, Disorientation, Hallucinations, Hostility, Irritablity, Mood Swings, Obsessive thoughts, Other Eyes: No Blurry vision, No Decreased vision, No Double vision, No Dry eyes, No Excessive tearing, No Eye Pain, No Itchy Eyes, No Loss of vision, No Photophobia , No Scotomata, No Uses contacts, No Uses glasses, No Other HEENT: No: Heacaches, Visual Changes, Hearing change, Nasal congestion, Nasal discharge, Oral lesions, Sinus pain, Sore Throat, Epistaxis, Sneezing, Snoring, Tinnitus, Vertigo, Vocal changes, Other Respiratory: No: Cough, Hemoptysis, Orthopnea, Pleuritic Pain, Shortness of breath, SOB with excertion, Sputum Changes, Stridor, Tachypnea, Wheezing, Other Cardiovascular: No Chest Pain, No Palpitations, No Orthopnea, No Paroxysmal Noc. Dyspnea, No Edema, No Lt Headedness, No Other Gastrointestinal: Yes Nausea; No Vomiting, No Abdominal Pain, No Diarrhea, No Constipation, No Melena, No Hematochezia, No Other Genitourinary: No Dysuria, No Frequency, No Incontinence, No Hematuria, No Retention, No Discharge, No Urgency, No Pain, No Flank Pain, No Other, No , No , No , No , No , No , No Musculoskeletal: Yes Gait Disturbance (right AKA), Yes Joint Stiffness; No Joint Pain, No Joint Swelling, No Muscle Pain, No Muscular Weakness, No Pain In:, No Swelling In:, No Other Neurological: Yes Impaired Coord/balance, Yes Weakness; No Bowel/Bladder ControlChng, No Confusion, No Dizziness, No Memory Loss, No Numbness/Tingling, No Seizures, No Other Skin: Yes Dry Skin; No Eczema, No Hair Changes, No Lumps, No Mole Changes, No Mottling, No Nail Changes, No Pruritus, No Rash, No Skin Lesion Changes, No Other, No Acne Physical Exam General: Alert, Cooperative, No acute distress, Other (lethargic, mild oriented 1/3) Lungs: Clear to auscultation Heart: S1S2, no murmurs Extremities: No cyanosis, Other (right BKA with wound) Skin: No rashes Neuro: Normal speech, Sensation intact Psych/Mental Status: Mood NL Vitals Vitals Vital Signs Date Time Temp Pulse Resp B/P (MAP) Pulse Ox O2 Delivery O2 Flow Rate FiO2 12/06/18 20:50 66 16 94 12/06/18 16:11 98.6 210/85 (126) Room Air 98.6 Labs Labs Laboratory Tests Test 12/06/18 16:24 12/06/18 17:45 12/06/18 17:59 12/06/18 18:56 Glucose (Fingerstick) 84 mg/dL (70-99) 71 mg/dL (70-99) White Blood Count 5.7 x10^3/uL (4.0-11.0) Red Blood Count 3.63 x10^6/uL (3.50-5.40) Hemoglobin 11.0 g/dL (12.0-15.5) Hematocrit 34.1 % (36.0-47.0) Mean Corpuscular Volume 94 fL (79-100) Mean Corpuscular Hemoglobin 30 pg (25-35) Mean Corpuscular Hemoglobin Concent 32 g/dL (31-37) Red Cell Distribution Width 18.9 % (11.5-14.5) Platelet Count 73 x10^3/uL (140-400) Neutrophils (%) (Auto) 71 % (31-73) Lymphocytes (%) (Auto) 15 % (24-48) Monocytes (%) (Auto) 10 % (0-9) Eosinophils (%) (Auto) 3 % (0-3) Basophils (%) (Auto) 1 % (0-3) Neutrophils # (Auto) 4.0 x10^3uL (1.8-7.7) Lymphocytes # (Auto) 0.9 x10^3/uL (1.0-4.8) Monocytes # (Auto) 0.5 x10^3/uL (0.0-1.1) Eosinophils # (Auto) 0.2 x10^3/uL (0.0-0.7) Basophils # (Auto) 0.1 x10^3/uL (0.0-0.2) Prothrombin Time 18.7 SEC (11.7-14.0) Prothromb Time International Ratio 1.6 (0.8-1.1) Activated Partial Thromboplast Time 38 SEC (24-38) Sodium Level 140 mmol/L (136-145) Potassium Level 3.8 mmol/L (3.5-5.1) Chloride Level 103 mmol/L (98-107) Carbon Dioxide Level 25 mmol/L (21-32) Anion Gap 12 (6-14) Blood Urea Nitrogen 18 mg/dL (7-20) Creatinine 3.3 mg/dL (0.6-1.0) Estimated GFR (Cockcroft-Gault) 13.7 BUN/Creatinine Ratio 5 (6-20) Glucose Level 98 mg/dL (70-99) Lactic Acid Level 2.2 mmol/L (0.4-2.0) Calcium Level 8.6 mg/dL (8.5-10.1) Magnesium Level 2.1 mg/dL (1.8-2.4) Total Bilirubin 0.9 mg/dL (0.2-1.0) Aspartate Amino Transf (AST/SGOT) 27 U/L (15-37) Alanine Aminotransferase (ALT/SGPT) 19 U/L (14-59) Alkaline Phosphatase 162 U/L (46-116) Troponin I Quantitative 0.028 ng/mL (0.000-0.055) Total Protein 7.0 g/dL (6.4-8.2) Albumin 2.3 g/dL (3.4-5.0) Albumin/Globulin Ratio 0.5 (1.0-1.7) Ammonia 33 mcmol/L (11-34) Test 12/06/18 19:42 12/06/18 20:19 12/06/18 21:20 Glucose (Fingerstick) 104 mg/dL (70-99) 77 mg/dL (70-99) O2 Saturation 90 % (92-99) Arterial Blood pH 7.36 (7.35-7.45) Arterial Blood pCO2 at Patient Temp 41 mmHg (35-46) Arterial Blood pO2 at Patient Temp 64 mmHg (65-108) Arterial Blood HCO3 23 mmol/L (21-28) Arterial Blood Base Excess -3 mmol/L (-3-3) Oxyhemoglobin 88.8 % Methemoglobin 0.3 % (0.0-1.9) Carbon Monoxide, Quantitative 1.5 % (0.0-1.9) FiO2 21 Laboratory Tests Test 12/06/18 16:24 12/06/18 17:45 12/06/18 17:59 12/06/18 18:56 Glucose (Fingerstick) 84 mg/dL (70-99) 71 mg/dL (70-99) White Blood Count 5.7 x10^3/uL (4.0-11.0) Red Blood Count 3.63 x10^6/uL (3.50-5.40) Hemoglobin 11.0 g/dL (12.0-15.5) Hematocrit 34.1 % (36.0-47.0) Mean Corpuscular Volume 94 fL (79-100) Mean Corpuscular Hemoglobin 30 pg (25-35) Mean Corpuscular Hemoglobin Concent 32 g/dL (31-37) Red Cell Distribution Width 18.9 % (11.5-14.5) Platelet Count 73 x10^3/uL (140-400) Neutrophils (%) (Auto) 71 % (31-73) Lymphocytes (%) (Auto) 15 % (24-48) Monocytes (%) (Auto) 10 % (0-9) Eosinophils (%) (Auto) 3 % (0-3) Basophils (%) (Auto) 1 % (0-3) Neutrophils # (Auto) 4.0 x10^3uL (1.8-7.7) Lymphocytes # (Auto) 0.9 x10^3/uL (1.0-4.8) Monocytes # (Auto) 0.5 x10^3/uL (0.0-1.1) Eosinophils # (Auto) 0.2 x10^3/uL (0.0-0.7) Basophils # (Auto) 0.1 x10^3/uL (0.0-0.2) Prothrombin Time 18.7 SEC (11.7-14.0) Prothromb Time International Ratio 1.6 (0.8-1.1) Activated Partial Thromboplast Time 38 SEC (24-38) Sodium Level 140 mmol/L (136-145) Potassium Level 3.8 mmol/L (3.5-5.1) Chloride Level 103 mmol/L (98-107) Carbon Dioxide Level 25 mmol/L (21-32) Anion Gap 12 (6-14) Blood Urea Nitrogen 18 mg/dL (7-20) Creatinine 3.3 mg/dL (0.6-1.0) Estimated GFR (Cockcroft-Gault) 13.7 BUN/Creatinine Ratio 5 (6-20) Glucose Level 98 mg/dL (70-99) Lactic Acid Level 2.2 mmol/L (0.4-2.0) Calcium Level 8.6 mg/dL (8.5-10.1) Magnesium Level 2.1 mg/dL (1.8-2.4) Total Bilirubin 0.9 mg/dL (0.2-1.0) Aspartate Amino Transf (AST/SGOT) 27 U/L (15-37) Alanine Aminotransferase (ALT/SGPT) 19 U/L (14-59) Alkaline Phosphatase 162 U/L (46-116) Troponin I Quantitative 0.028 ng/mL (0.000-0.055) Total Protein 7.0 g/dL (6.4-8.2) Albumin 2.3 g/dL (3.4-5.0) Albumin/Globulin Ratio 0.5 (1.0-1.7) Ammonia 33 mcmol/L (11-34) Test 12/06/18 19:42 12/06/18 20:19 12/06/18 21:20 Glucose (Fingerstick) 104 mg/dL (70-99) 77 mg/dL (70-99) O2 Saturation 90 % (92-99) Arterial Blood pH 7.36 (7.35-7.45) Arterial Blood pCO2 at Patient Temp 41 mmHg (35-46) Arterial Blood pO2 at Patient Temp 64 mmHg (65-108) Arterial Blood HCO3 23 mmol/L (21-28) Arterial Blood Base Excess -3 mmol/L (-3-3) Oxyhemoglobin 88.8 % Methemoglobin 0.3 % (0.0-1.9) Carbon Monoxide, Quantitative 1.5 % (0.0-1.9) FiO2 21 VTE Prophylaxis Ordered VTE Prophylaxis Devices: Contraindicated VTE Pharmacological Prophylaxi: Yes Assessment/Plan Assessment/Plan weakness, debility falls at home worsening confusion Dm2, concern for hypoglycemia CKD 4 or 5, consult renal right leg wound with vacuum attached, prior infection, will consult ID and wound care, she may still be on course of abx, she is unsure, acute on chronic encephalopahty Pt and OT and soc work, may need skilled ROB GAMEZ MD Dec 06, 2018 22:17
[2018-12-06] MEDS ORDERED: LABETALOL 20 MG/4 ML DISP.SYRIN. IVP PRN (23:15)
[2018-12-07] VITALS (20 sets, daily range): BP systolic 113–177; BP diastolic 5–78
[2018-12-07] MEDS: hydrALAZINE 20 MG/ML VIAL. IVP PRN (00:03)
[2018-12-07] MEDS ORDERED: LACTULOSE 20 GM/30 ML SOLUTION. PO PRN (07:00)
[2018-12-07] MEDS ORDERED: ONDANSETRON ODT 4 MG TAB.RAPDIS. PO PRN (07:15)
--- NOTE | 2018-12-07 07:47 | EKG ---
[facility] [address] [place] [address] Test Date: 2018-12-06 Test Time: 16:20:57 Pat Name: YIN DIAZ Department: Room: 254 1 Gender: F Collaborating Supervising Physician: : [id number] Requested By: RENEE GRAY Order Number: [id number] Reading MD: Thomas Farr Measurements Intervals [place] Rate: 60 P: 47 MI: 196 QRS: -8 QRSD: 80 T: 17 QT: 412 QTc: 412 Interpretive Statements SINUS RHYTHM LEFTWARD AXIS Electronically Signed On 12-14-2018 12:52:58 CDT by Thomas Farr
--- NOTE | 2018-12-07 07:48 | RAD ---
Bilateral knees, 6 views, 12/06/2018: HISTORY: Fall, previous right BKA The bony structures are demineralized. No fracture or dislocation is identified. There is a tubing overlying the stump in the upper aspect of the right lower leg compatible with a surgical drain. There are surgical clips in this region. Extensive arterial calcifications are present. Subcutaneous edema is noted bilaterally. IMPRESSION: 1. Postsurgical change on the right. 2. Demineralization. 3. No acute bony abnormality is detected. Electronically signed by: Carlos Solis MD (12/07/2018 7:45 AM) [facility]
[2018-12-07] MEDS ORDERED: INSULIN GLARGINE 300 UNITS/3 ML INSULN.PEN. SQ SCH (09:00)
[2018-12-07] MEDS ORDERED: NON FORMULARY ITEM (Cephalexin (Keflex) 1 CAP) PO SCH (09:00)
[2018-12-07] MEDS ORDERED: FAMOTIDINE 20 MG TABLET. PO SCH (09:00)
[2018-12-07] MEDS: ISOSORBIDE MONONITRATE ER 30 MG TAB.ER.24H PO SCH (09:38)
[2018-12-07] MEDS: SERTRALINE 50 MG TABLET. PO SCH (09:38)
[2018-12-07] MEDS: GABAPENTIN 100 MG CAPSULE. PO SCH (09:39)
[2018-12-07] MEDS: METOPROLOL SUCC 24HR ER 25 MG TAB.ER.24H. PO SCH (09:39)
[2018-12-07] MEDS: SEVELAMER CARBONATE 800 MG TABLET. PO SCH ×3 (09:39→17:38)
[2018-12-07] MEDS: MECLIZINE HCL 12.5 MG TABLET. PO SCH ×3 (09:39→20:41)
[2018-12-07] MEDS: busPIRone 10 MG TABLET. PO SCH ×3 (09:39→17:38)
[2018-12-07] MEDS: LEVOTHYROXINE 125 MCG TABLET PO SCH (09:39)
[2018-12-07] MEDS: cloNIDine HCL 0.2 MG TABLET PO SCH (09:40)
[2018-12-07] MEDS: LORazepam 0.5 MG TABLET PO PRN ×2 (09:44→20:41)
[2018-12-07] MEDS ORDERED: AMOXICILLIN/K CLAV 500/125MG TABLET. PO SCH (10:30)
--- NOTE | 2018-12-07 10:44 | PDOC ---
PROGRESS NOTES Chief Complaint Chief Complaint weakness, debility: PT/OT Acute Encephalopathy: CT head negative, not on sedating meds. no fever or leukocytosis. check ammonia, b12 Dm2: continue home lantus. hold meal time insulin till takes mor ePO. CKD 4 or 5: renal consulted right leg wound with vacuum attached, prior infection: consult ID and wound care dispo: to SNF once medically stable History of Present Illness History of Present Illness patient anxious to go home. last HD Sat. no complaints. denies chest pain, sob, nausea vomiting diarrhea Vitals Vitals Vital Signs Date Time Temp Pulse Resp B/P (MAP) Pulse Ox O2 Delivery O2 Flow Rate FiO2 12/07/18 09:40 64 146/78 12/07/18 07:00 98.5 18 95 Room Air 98.5 12/06/18 23:16 2.0 Physical Exam General: Alert, Cooperative, No acute distress, Other (lethargic, mild oriented 1/3) Lungs: Clear Extremities: No cyanosis, Other (right BKA with wound vac) Skin: No rashes Labs LABS Laboratory Tests Test 12/06/18 16:24 12/06/18 17:45 12/06/18 17:59 12/06/18 18:56 Glucose (Fingerstick) 84 mg/dL (70-99) 71 mg/dL (70-99) White Blood Count 5.7 x10^3/uL (4.0-11.0) Red Blood Count 3.63 x10^6/uL (3.50-5.40) Hemoglobin 11.0 g/dL (12.0-15.5) Hematocrit 34.1 % (36.0-47.0) Mean Corpuscular Volume 94 fL (79-100) Mean Corpuscular Hemoglobin 30 pg (25-35) Mean Corpuscular Hemoglobin Concent 32 g/dL (31-37) Red Cell Distribution Width 18.9 % (11.5-14.5) Platelet Count 73 x10^3/uL (140-400) Neutrophils (%) (Auto) 71 % (31-73) Lymphocytes (%) (Auto) 15 % (24-48) Monocytes (%) (Auto) 10 % (0-9) Eosinophils (%) (Auto) 3 % (0-3) Basophils (%) (Auto) 1 % (0-3) Neutrophils # (Auto) 4.0 x10^3uL (1.8-7.7) Lymphocytes # (Auto) 0.9 x10^3/uL (1.0-4.8) Monocytes # (Auto) 0.5 x10^3/uL (0.0-1.1) Eosinophils # (Auto) 0.2 x10^3/uL (0.0-0.7) Basophils # (Auto) 0.1 x10^3/uL (0.0-0.2) Prothrombin Time 18.7 SEC (11.7-14.0) Prothromb Time International Ratio 1.6 (0.8-1.1) Activated Partial Thromboplast Time 38 SEC (24-38) Sodium Level 140 mmol/L (136-145) Potassium Level 3.8 mmol/L (3.5-5.1) Chloride Level 103 mmol/L (98-107) Carbon Dioxide Level 25 mmol/L (21-32) Anion Gap 12 (6-14) Blood Urea Nitrogen 18 mg/dL (7-20) Creatinine 3.3 mg/dL (0.6-1.0) Estimated GFR (Cockcroft-Gault) 13.7 BUN/Creatinine Ratio 5 (6-20) Glucose Level 98 mg/dL (70-99) Lactic Acid Level 2.2 mmol/L (0.4-2.0) Calcium Level 8.6 mg/dL (8.5-10.1) Magnesium Level 2.1 mg/dL (1.8-2.4) Total Bilirubin 0.9 mg/dL (0.2-1.0) Aspartate Amino Transf (AST/SGOT) 27 U/L (15-37) Alanine Aminotransferase (ALT/SGPT) 19 U/L (14-59) Alkaline Phosphatase 162 U/L (46-116) Troponin I Quantitative 0.028 ng/mL (0.000-0.055) Total Protein 7.0 g/dL (6.4-8.2) Albumin 2.3 g/dL (3.4-5.0) Albumin/Globulin Ratio 0.5 (1.0-1.7) Ammonia 33 mcmol/L (11-34) Test 12/06/18 19:42 12/06/18 20:19 12/06/18 21:20 12/07/18 00:30 Glucose (Fingerstick) 104 mg/dL (70-99) 77 mg/dL (70-99) O2 Saturation 90 % (92-99) Arterial Blood pH 7.36 (7.35-7.45) Arterial Blood pCO2 at Patient Temp 41 mmHg (35-46) Arterial Blood pO2 at Patient Temp 64 mmHg (65-108) Arterial Blood HCO3 23 mmol/L (21-28) Arterial Blood Base Excess -3 mmol/L (-3-3) Oxyhemoglobin 88.8 % Methemoglobin 0.3 % (0.0-1.9) Carbon Monoxide, Quantitative 1.5 % (0.0-1.9) FiO2 21 Lactic Acid Level 1.8 mmol/L (0.4-2.0) Test 12/07/18 08:08 Glucose (Fingerstick) 100 mg/dL (70-99) Comment Review of Relevant I have reviewed the following items karyn (where applicable) has been applied. Labs Laboratory Tests Test 12/06/18 16:24 12/06/18 17:45 12/06/18 17:59 12/06/18 18:56 Glucose (Fingerstick) 84 mg/dL (70-99) 71 mg/dL (70-99) White Blood Count 5.7 x10^3/uL (4.0-11.0) Red Blood Count 3.63 x10^6/uL (3.50-5.40) Hemoglobin 11.0 g/dL (12.0-15.5) Hematocrit 34.1 % (36.0-47.0) Mean Corpuscular Volume 94 fL (79-100) Mean Corpuscular Hemoglobin 30 pg (25-35) Mean Corpuscular Hemoglobin Concent 32 g/dL (31-37) Red Cell Distribution Width 18.9 % (11.5-14.5) Platelet Count 73 x10^3/uL (140-400) Neutrophils (%) (Auto) 71 % (31-73) Lymphocytes (%) (Auto) 15 % (24-48) Monocytes (%) (Auto) 10 % (0-9) Eosinophils (%) (Auto) 3 % (0-3) Basophils (%) (Auto) 1 % (0-3) Neutrophils # (Auto) 4.0 x10^3uL (1.8-7.7) Lymphocytes # (Auto) 0.9 x10^3/uL (1.0-4.8) Monocytes # (Auto) 0.5 x10^3/uL (0.0-1.1) Eosinophils # (Auto) 0.2 x10^3/uL (0.0-0.7) Basophils # (Auto) 0.1 x10^3/uL (0.0-0.2) Prothrombin Time 18.7 SEC (11.7-14.0) Prothromb Time International Ratio 1.6 (0.8-1.1) Activated Partial Thromboplast Time 38 SEC (24-38) Sodium Level 140 mmol/L (136-145) Potassium Level 3.8 mmol/L (3.5-5.1) Chloride Level 103 mmol/L (98-107) Carbon Dioxide Level 25 mmol/L (21-32) Anion Gap 12 (6-14) Blood Urea Nitrogen 18 mg/dL (7-20) Creatinine 3.3 mg/dL (0.6-1.0) Estimated GFR (Cockcroft-Gault) 13.7 BUN/Creatinine Ratio 5 (6-20) Glucose Level 98 mg/dL (70-99) Lactic Acid Level 2.2 mmol/L (0.4-2.0) Calcium Level 8.6 mg/dL (8.5-10.1) Magnesium Level 2.1 mg/dL (1.8-2.4) Total Bilirubin 0.9 mg/dL (0.2-1.0) Aspartate Amino Transf (AST/SGOT) 27 U/L (15-37) Alanine Aminotransferase (ALT/SGPT) 19 U/L (14-59) Alkaline Phosphatase 162 U/L (46-116) Troponin I Quantitative 0.028 ng/mL (0.000-0.055) Total Protein 7.0 g/dL (6.4-8.2) Albumin 2.3 g/dL (3.4-5.0) Albumin/Globulin Ratio 0.5 (1.0-1.7) Ammonia 33 mcmol/L (11-34) Test 12/06/18 19:42 12/06/18 20:19 12/06/18 21:20 12/07/18 00:30 Glucose (Fingerstick) 104 mg/dL (70-99) 77 mg/dL (70-99) O2 Saturation 90 % (92-99) Arterial Blood pH 7.36 (7.35-7.45) Arterial Blood pCO2 at Patient Temp 41 mmHg (35-46) Arterial Blood pO2 at Patient Temp 64 mmHg (65-108) Arterial Blood HCO3 23 mmol/L (21-28) Arterial Blood Base Excess -3 mmol/L (-3-3) Oxyhemoglobin 88.8 % Methemoglobin 0.3 % (0.0-1.9) Carbon Monoxide, Quantitative 1.5 % (0.0-1.9) FiO2 21 Lactic Acid Level 1.8 mmol/L (0.4-2.0) Test 12/07/18 08:08 Glucose (Fingerstick) 100 mg/dL (70-99) Laboratory Tests Test 12/06/18 16:24 12/06/18 17:45 12/06/18 17:59 12/06/18 18:56 Glucose (Fingerstick) 84 mg/dL (70-99) 71 mg/dL (70-99) White Blood Count 5.7 x10^3/uL (4.0-11.0) Red Blood Count 3.63 x10^6/uL (3.50-5.40) Hemoglobin 11.0 g/dL (12.0-15.5) Hematocrit 34.1 % (36.0-47.0) Mean Corpuscular Volume 94 fL (79-100) Mean Corpuscular Hemoglobin 30 pg (25-35) Mean Corpuscular Hemoglobin Concent 32 g/dL (31-37) Red Cell Distribution Width 18.9 % (11.5-14.5) Platelet Count 73 x10^3/uL (140-400) Neutrophils (%) (Auto) 71 % (31-73) Lymphocytes (%) (Auto) 15 % (24-48) Monocytes (%) (Auto) 10 % (0-9) Eosinophils (%) (Auto) 3 % (0-3) Basophils (%) (Auto) 1 % (0-3) Neutrophils # (Auto) 4.0 x10^3uL (1.8-7.7) Lymphocytes # (Auto) 0.9 x10^3/uL (1.0-4.8) Monocytes # (Auto) 0.5 x10^3/uL (0.0-1.1) Eosinophils # (Auto) 0.2 x10^3/uL (0.0-0.7) Basophils # (Auto) 0.1 x10^3/uL (0.0-0.2) Prothrombin Time 18.7 SEC (11.7-14.0) Prothromb Time International Ratio 1.6 (0.8-1.1) Activated Partial Thromboplast Time 38 SEC (24-38) Sodium Level 140 mmol/L (136-145) Potassium Level 3.8 mmol/L (3.5-5.1) Chloride Level 103 mmol/L (98-107) Carbon Dioxide Level 25 mmol/L (21-32) Anion Gap 12 (6-14) Blood Urea Nitrogen 18 mg/dL (7-20) Creatinine 3.3 mg/dL (0.6-1.0) Estimated GFR (Cockcroft-Gault) 13.7 BUN/Creatinine Ratio 5 (6-20) Glucose Level 98 mg/dL (70-99) Lactic Acid Level 2.2 mmol/L (0.4-2.0) Calcium Level 8.6 mg/dL (8.5-10.1) Magnesium Level 2.1 mg/dL (1.8-2.4) Total Bilirubin 0.9 mg/dL (0.2-1.0) Aspartate Amino Transf (AST/SGOT) 27 U/L (15-37) Alanine Aminotransferase (ALT/SGPT) 19 U/L (14-59) Alkaline Phosphatase 162 U/L (46-116) Troponin I Quantitative 0.028 ng/mL (0.000-0.055) Total Protein 7.0 g/dL (6.4-8.2) Albumin 2.3 g/dL (3.4-5.0) Albumin/Globulin Ratio 0.5 (1.0-1.7) Ammonia 33 mcmol/L (11-34) Test 12/06/18 19:42 12/06/18 20:19 12/06/18 21:20 12/07/18 00:30 Glucose (Fingerstick) 104 mg/dL (70-99) 77 mg/dL (70-99) O2 Saturation 90 % (92-99) Arterial Blood pH 7.36 (7.35-7.45) Arterial Blood pCO2 at Patient Temp 41 mmHg (35-46) Arterial Blood pO2 at Patient Temp 64 mmHg (65-108) Arterial Blood HCO3 23 mmol/L (21-28) Arterial Blood Base Excess -3 mmol/L (-3-3) Oxyhemoglobin 88.8 % Methemoglobin 0.3 % (0.0-1.9) Carbon Monoxide, Quantitative 1.5 % (0.0-1.9) FiO2 21 Lactic Acid Level 1.8 mmol/L (0.4-2.0) Test 12/07/18 08:08 Glucose (Fingerstick) 100 mg/dL (70-99) Medications Current Medications Sodium Chloride 500 ml @ 500 mls/hr 1X ONCE IV Last administered on at 18:13; Start 12/06/18 at 16:45; Stop 12/06/18 at 17:44; Status DC Iohexol (Omnipaque 300 Mg/ml) 75 ml 1X ONCE IV ; Start 12/06/18 at 16:45; Stop 12/06/18 at 16:46; Status DC Iohexol (Omnipaque 300 Mg/ml) 60 ml 1X ONCE IV Last administered on 12/06/18at 16:45; Start 12/06/18 at 16:45; Stop 12/06/18 at 16:46; Status DC Info (CONTRAST GIVEN -- Rx MONITORING) 1 each PRN DAILY PRN MC SEE COMMENTS; Start 12/06/18 at 16:45; Stop 12/08/18 at 16:44 Dextrose (Dextrose 50%-Water Syringe) 12.5 gm 1X ONCE IV Last administered on 12/06/18at 18:11; Start 12/06/18 at 18:00; Stop 12/06/18 at 18:03; Status DC Dextrose (Dextrose 50%-Water Syringe) 12.5 gm 1X ONCE IV ; Start 12/06/18 at 20 :45; Stop 12/06/18 at 20:46; Status DC Labetalol HCl (Normodyne Iv Push) 20 mg PRN Q2HR PRN IVP HYPERTENSION, SEE COMMENTS; Start 12/06/18 at 23:15 Hydralazine HCl (Apresoline Inj) 10 mg PRN Q4HRS PRN IVP ELEVATED BP, SEE COMMENTS Last administered on 12/07/18 00:03; Start 12/06/18 at 23:15 Buspirone HCl (Buspar) 10 mg TIDWMEALS PO Last administered on 12/07/18 09:39 ; Start 12/07/18 at 08:00 Clonidine HCl (Catapres) 0.2 mg DAILY PO Last administered on 12/07/18 09:40; Start 12/07/18 at 09:00 Famotidine (Pepcid) 20 mg DAILY PO Last administered on 12/07/18 09:40; Start 12/07/18 at 09:00 Gabapentin (Neurontin) 100 mg DAILY PO Last administered on 12/07/18 09:39; Start 12/07/18 at 09:00 Insulin Glargine (Lantus) 15 units DAILY SQ ; Start 12/07/18 at 09:00; Stop at 09:51; Status DC Lactulose (Lactulose) 10 gm PRN TID PRN PO CONSTIPATION; Start 12/07/18 at 07: 00 Levothyroxine Sodium (Synthroid) 125 mcg DAILY06 PO Last administered on 09:39; Start 12/07/18 at 06:00 Lorazepam (Ativan) 0.5 mg PRN Q6HRS PRN PO ANXIETY / AGITATION Last administered on 12/07/18 09:44; Start 12/07/18 at 07:00 Metoprolol Succinate (Toprol Xl) 25 mg DAILY PO Last administered on 12/07/18 09:39; Start 12/07/18 at 09:00 Sertraline HCl (Zoloft) 75 mg DAILY PO Last administered on 12/07/18 09:38; Start 12/07/18 at 09:00 Sevelamer Carbonate (Renvela) 800 mg TIDWMEALS PO Last administered on 09:39; Start 12/07/18 at 08:00 Non-Formulary Medication (Cephalexin (Keflex)) 1 cap BID PO ; Start 12/07/18 at 09:00; Stop 12/07/18 at 09:00; Status DC Isosorbide Mononitrate (Imdur) 30 mg DAILY PO Last administered on 4/15/19at 09 :38; Start 12/07/18 at 09:00 Meclizine HCl (Antivert) 25 mg TID PO Last administered on 12/07/18at 09:39; Start 12/07/18 at 08:00 Ondansetron HCl (Zofran Odt) 4 mg PRN Q6HRS PRN PO NAUSEA/VOMITING; Start 12/07 at 07:15 Tizanidine HCl (Zanaflex) 4 mg PRN Q12HRS PRN PO MUSCLE SPASMS; Start 12/07/18 at 07:15 Insulin Glargine (Lantus) 15 units QHS SQ ; Start 12/07/18 at 21:00 Amoxicillin/ Clavulanate Potassium (Augmentin 500/ 125mg) 1 tab BID PO ; Start 12/07/18 at 10:30; Stop 12/07/18 at 10:30; Status DC Active Scripts Active Zofran (Ondansetron Hcl) 4 Mg Tablet 1 Tab PO Q6HRS Lantus Solostar (Insulin Glargine,Hum.rec.anlog) 100 Unit/1 Ml Insuln.pen 15 Units SQ DAILY 28 Days Lactulose 20 Gm/30 Ml Solution 10 Gm PO PRN TID PRN 10 Days Aspirin Ec (Aspirin) 325 Mg Tablet.dr 325 Mg PO DAILYWBKFT 30 Days Reported Melatonin 3 Mg Tablet 6 Mg PO QHS Keflex (Cephalexin) 500 Mg Capsule 1 Cap PO BID Buspirone Hcl 10 Mg Tablet 10 Mg PO TIDWMEALS Ativan (Lorazepam) 0.5 Mg Tablet 0.5 Mg PO PRN Q6HRS PRN Calcium Acetate 667 Mg Tablet 667 Mg PO TIDWMEALS Tizanidine Hcl 2 Mg Capsule 2 Mg PO BID PRN Meclizine Hcl 25 Mg Tablet 1 Tab PO TID Voltaren (Diclofenac Sodium) 100 Gm Gel..gram. 1 Gm TP BID Hydrocodone-Apap 5-325 (Hydrocodone Bit/Acetaminophen) 1 Each Tablet 2 Tab PO PRN Q6HRS PRN Clonidine Hcl 0.2 Mg Tablet 0.2 Mg PO DAILY Gabapentin (Gabapentin) 100 Mg Capsule 100 Mg PO DAILY Zoloft (Sertraline Hcl) 50 Mg Tablet 75 Mg PO DAILY Renvela (Sevelamer Carbonate) 800 Mg Tablet 1 Tab PO TIDWMEALS Levothyroxine Sodium 175 Mcg Tablet 125 Mcg PO DAILYAC Dialyvite Porter D Tablet (Multivitamin, Min Cmb#25/Fa/D3) 1 Each Tablet 1 Each PO DAILY Metoprolol Succinate ( Xl ) (Metoprolol Succinate) 25 Mg Tab.er.24h 25 Mg PO DAILY Famotidine 20 Mg Tablet 20 Mg PO DAILY Isosorbide Dinitrate 30 Mg Tablet 1 Tab PO DAILY Vitals/I & O Vital Sign - Last 24 Hours 12/06/18 12/06/18 12/06/18 12/06/18 16:11 18:35 19:28 19:50 Temp 98.6 98.6 Pulse 68 66 62 60 Resp 20 18 18 17 B/P (MAP) 210/85 (126) Pulse Ox 93 95 95 96 O2 Delivery Room Air 12/06/18 12/06/18 12/06/18 12/06/18 20:07 20:20 20:36 20:50 Pulse 56 59 60 66 Resp 17 17 16 16 Pulse Ox 94 94 94 94 12/06/18 12/06/18 12/07/18 12/07/18 22:05 23:16 00:03 03:52 Temp 98.0 98.5 98.0 98.5 Pulse 63 63 65 Resp 16 16 B/P (MAP) 188/62 (104) 188/62 133/35 (67) Pulse Ox 95 98 O2 Delivery Room Air Nasal Cannula Room Air O2 Flow Rate 2.0 12/07/18 12/07/18 12/07/18 12/07/18 07:00 09:38 09:39 09:40 Temp 98.5 98.5 Pulse 64 64 64 64 Resp 18 B/P (MAP) 146/78 (100) 146/78 146/78 146/78 Pulse Ox 95 O2 Delivery Room Air HORACIO GILL MD Dec 07, 2018 10:44
--- NOTE | 2018-12-07 10:57 | PDOC2 ---
PALLIATIVE CARE Palliative Care Note Palliative Care Consult requested by Dr. Duarte at family request. Medical Condition per medical record. weakness, debility falls at home worsening confusion Dm2, concern for hypoglycemia CKD 4 or 5, consult renal right leg wound with vacuum attached, prior infection, Patient lethargic. Attempts to open eyes. No respiratory distress. Spoke with patient's -Kevin. States they have had discussion with hospice recently. Discussed Code States; Kevin requests DNR/DNI. Understands what without this attempt she likely would . Kevin plans to visit around 6 pm tonight. Plan family meeting tomorrow at 2 pm. Message to Angela--granddaughter to return call. VEDA SIEGEL Dec 07, 2018 10:57
--- NOTE | 2018-12-07 10:59 | PDOC ---
Provider Note Provider Note Pt seen and examined ID consult dictated MARTIN ALONZO MD Dec 07, 2018 10:59
--- NOTE | 2018-12-07 11:20 | PDOC2 ---
CONSULT Date of Consult Date of Consult DATE: 12/07/18 TIME: 11:15 Reason for Consult Reason for Consult: ESRD on HD Source Source: Chart review, Patient History of Present Illness Reason for Visit: 73 y/o CF ESRd on HD TTS presented to ER via EMS from local rehab center for reports pt has had decreased LOC of consciousness today. Daughter at bedside reports that she was noticed to be less alert today around 1 p.m. She reports on Sat she was sitting at the dinning table and was alert She has been at Rehab facility since 10/26/18. She is on daily aspirin no other blood thinners.On arrival she was A&Ox3 during discussion she appears to go to sleep- easily aroused by voice command. She reports she fell at 3 a.m. striking her lt side posterior head/lt side of head and lt side back on floor. Pt has bruising to those areas and lt knee. She has bruising to rt upper arm above dialysis cath . Bruise rt lateral neck/clavicle area. She denies CP, SOA, abd pain, or nausea. Currently she states she wants to go back home. She is c/o constipation and Abdominal distension . She has Chronic Dx of Cirrhosis , CT scan shows worsening Ascites Pt has rt BKA with wound vac at site- bloody appearance drainage with stump purplish in color. Last HD was on Friday per her schedule Past Medical History Cardiovascular: CHF, HTN, Hyperlipidemia Pulmonary: COPD, Pneumonia, Other CENTRAL NERVOUS SYSTEM: CVA, Periperal neuropathy GI: GERD Heme/Onc: Anemia NOS Hepatobiliary: Cirrhosis Psych: Anxiety, Depression Musculoskeletal: Osteoarthritis Rheumatologic: No pertinent hx Infectious disease: No pertinent hx Renal/: Chronic renal failure, UTI Endocrine: Diabetes, Hypothyroidism Past Surgical History Past Surgical History: Hysterectomy Family History Family History: Diabetes Social History ALCOHOL: none Drugs: None Lives: with Family Current Medications Current Medications Current Medications Sodium Chloride 500 ml @ 500 mls/hr 1X ONCE IV Last administered on at 18:13; Start 12/06/18 at 16:45; Stop 12/06/18 at 17:44; Status DC Iohexol (Omnipaque 300 Mg/ml) 75 ml 1X ONCE IV ; Start 12/06/18 at 16:45; Stop 12/06/18 at 16:46; Status DC Iohexol (Omnipaque 300 Mg/ml) 60 ml 1X ONCE IV Last administered on 12/06/18at 16:45; Start 12/06/18 at 16:45; Stop 12/06/18 at 16:46; Status DC Info (CONTRAST GIVEN -- Rx MONITORING) 1 each PRN DAILY PRN MC SEE COMMENTS; Start 12/06/18 at 16:45; Stop 12/08/18 at 16:44 Dextrose (Dextrose 50%-Water Syringe) 12.5 gm 1X ONCE IV Last administered on 12/06/18at 18:11; Start 12/06/18 at 18:00; Stop 12/06/18 at 18:03; Status DC Dextrose (Dextrose 50%-Water Syringe) 12.5 gm 1X ONCE IV ; Start 12/06/18 at 20 :45; Stop 12/06/18 at 20:46; Status DC Labetalol HCl (Normodyne Iv Push) 20 mg PRN Q2HR PRN IVP HYPERTENSION, SEE COMMENTS; Start 12/06/18 at 23:15 Hydralazine HCl (Apresoline Inj) 10 mg PRN Q4HRS PRN IVP ELEVATED BP, SEE COMMENTS Last administered on 12/07/18at 00:03; Start 12/06/18 at 23:15 Buspirone HCl (Buspar) 10 mg TIDWMEALS PO Last administered on 12/07/18at 09:39 ; Start 12/07/18 at 08:00 Clonidine HCl (Catapres) 0.2 mg DAILY PO Last administered on 12/07/18at 09:40; Start 12/07/18 at 09:00 Famotidine (Pepcid) 20 mg DAILY PO Last administered on 12/07/18at 09:40; Start 12/07/18 at 09:00 Gabapentin (Neurontin) 100 mg DAILY PO Last administered on 12/07/18at 09:39; Start 12/07/18 at 09:00 Insulin Glargine (Lantus) 15 units DAILY SQ ; Start 12/07/18 at 09:00; Stop at 09:51; Status DC Lactulose (Lactulose) 10 gm PRN TID PRN PO CONSTIPATION; Start 12/07/18 at 07: 00 Levothyroxine Sodium (Synthroid) 125 mcg DAILY06 PO Last administered on at 09:39; Start 12/07/18 at 06:00 Lorazepam (Ativan) 0.5 mg PRN Q6HRS PRN PO ANXIETY / AGITATION Last administered on 12/07/18 09:44; Start 12/07/18 at 07:00 Metoprolol Succinate (Toprol Xl) 25 mg DAILY PO Last administered on 12/07/18 09:39; Start 12/07/18 at 09:00 Sertraline HCl (Zoloft) 75 mg DAILY PO Last administered on 12/07/18 09:38; Start 12/07/18 at 09:00 Sevelamer Carbonate (Renvela) 800 mg TIDWMEALS PO Last administered on 09:39; Start 12/07/18 at 08:00 Non-Formulary Medication (Cephalexin (Keflex)) 1 cap BID PO ; Start 12/07/18 at 09:00; Stop 12/07/18 at 09:00; Status DC Isosorbide Mononitrate (Imdur) 30 mg DAILY PO Last administered on 12/07/18 09 :38; Start 12/07/18 at 09:00 Meclizine HCl (Antivert) 25 mg TID PO Last administered on 12/07/18 09:39; Start 12/07/18 at 08:00 Ondansetron HCl (Zofran Odt) 4 mg PRN Q6HRS PRN PO NAUSEA/VOMITING; Start 12/07 at 07:15 Tizanidine HCl (Zanaflex) 4 mg PRN Q12HRS PRN PO MUSCLE SPASMS; Start 12/07/18 at 07:15 Insulin Glargine (Lantus) 15 units QHS SQ ; Start 12/07/18 at 21:00 Amoxicillin/ Clavulanate Potassium (Augmentin 500/ 125mg) 1 tab BID PO ; Start 12/07/18 at 10:30; Stop 12/07/18 at 10:30; Status DC Active Scripts Active Zofran (Ondansetron Hcl) 4 Mg Tablet 1 Tab PO Q6HRS Lantus Solostar (Insulin Glargine,Hum.rec.anlog) 100 Unit/1 Ml Insuln.pen 15 Units SQ DAILY 28 Days Lactulose 20 Gm/30 Ml Solution 10 Gm PO PRN TID PRN 10 Days Aspirin Ec (Aspirin) 325 Mg Tablet. 325 Mg PO DAILYWBKFT 30 Days Reported Melatonin 3 Mg Tablet 6 Mg PO QHS Keflex (Cephalexin) 500 Mg Capsule 1 Cap PO BID Buspirone Hcl 10 Mg Tablet 10 Mg PO TIDWMEALS Ativan (Lorazepam) 0.5 Mg Tablet 0.5 Mg PO PRN Q6HRS PRN Calcium Acetate 667 Mg Tablet 667 Mg PO TIDWMEALS Tizanidine Hcl 2 Mg Capsule 2 Mg PO BID PRN Meclizine Hcl 25 Mg Tablet 1 Tab PO TID Voltaren (Diclofenac Sodium) 100 Gm Gel..gram. 1 Gm TP BID Hydrocodone-Apap 5-325 (Hydrocodone Bit/Acetaminophen) 1 Each Tablet 2 Tab PO PRN Q6HRS PRN Clonidine Hcl 0.2 Mg Tablet 0.2 Mg PO DAILY Gabapentin (Gabapentin) 100 Mg Capsule 100 Mg PO DAILY Zoloft (Sertraline Hcl) 50 Mg Tablet 75 Mg PO DAILY Renvela (Sevelamer Carbonate) 800 Mg Tablet 1 Tab PO TIDWMEALS Levothyroxine Sodium 175 Mcg Tablet 125 Mcg PO DAILYAC Dialyvite [place] D Tablet (Multivitamin, Min Cmb#25/Fa/D3) 1 Each Tablet 1 Each PO DAILY Metoprolol Succinate ( Xl ) (Metoprolol Succinate) 25 Mg Tab.er.24h 25 Mg PO DAILY Famotidine 20 Mg Tablet 20 Mg PO DAILY Isosorbide Dinitrate 30 Mg Tablet 1 Tab PO DAILY Allergies Allergies: Coded Allergies: adhesive (Verified Allergy, Intermediate, Rash, 10/15/18) TAPE ROS Review of System As per HPI Physical Exam Physical Exam GEN: NAD HEEN: Om moist , O2 by NC NECK: Supple CVS: RRR, Murmur + RESP: CTA , No Acc. Muscle Use GI: BS + ve, Distended, soft, Ascites + : [No CVA tenderness, No Suprapubic Tenderness Ext- Rt BKA Neuro- Grossly normal Vital Signs Vital Signs Date Time Temp Pulse Resp B/P (MAP) Pulse Ox O2 Delivery O2 Flow Rate FiO2 12/07/18 09:40 64 146/78 12/07/18 07:00 98.5 18 95 Room Air 98.5 12/06/18 23:16 2.0 Assessment & Plan ESRD- On HD TTS Last HD on Friday Currently No Indication for HD , Labs stable Hx of Cirrhosis - Increased Ascites on CT scan and clinically GI Consulted Anemia- Hgb stable As OP on WANDA and Fe as per protocol Hx of hepatic encephalopathy -portal hypertension/varices on imaging -last doppler 08/2018 ACD, thrombocytopenia, coagulopathy Palliative consulted after DW Patient and Daughter Labs Labs Laboratory Tests Test 12/06/18 16:24 12/06/18 17:45 12/06/18 17:59 12/06/18 18:56 Glucose (Fingerstick) 84 mg/dL (70-99) 71 mg/dL (70-99) White Blood Count 5.7 x10^3/uL (4.0-11.0) Red Blood Count 3.63 x10^6/uL (3.50-5.40) Hemoglobin 11.0 g/dL (12.0-15.5) Hematocrit 34.1 % (36.0-47.0) Mean Corpuscular Volume 94 fL (79-100) Mean Corpuscular Hemoglobin 30 pg (25-35) Mean Corpuscular Hemoglobin Concent 32 g/dL (31-37) Red Cell Distribution Width 18.9 % (11.5-14.5) Platelet Count 73 x10^3/uL (140-400) Neutrophils (%) (Auto) 71 % (31-73) Lymphocytes (%) (Auto) 15 % (24-48) Monocytes (%) (Auto) 10 % (0-9) Eosinophils (%) (Auto) 3 % (0-3) Basophils (%) (Auto) 1 % (0-3) Neutrophils # (Auto) 4.0 x10^3uL (1.8-7.7) Lymphocytes # (Auto) 0.9 x10^3/uL (1.0-4.8) Monocytes # (Auto) 0.5 x10^3/uL (0.0-1.1) Eosinophils # (Auto) 0.2 x10^3/uL (0.0-0.7) Basophils # (Auto) 0.1 x10^3/uL (0.0-0.2) Prothrombin Time 18.7 SEC (11.7-14.0) Prothromb Time International Ratio 1.6 (0.8-1.1) Activated Partial Thromboplast Time 38 SEC (24-38) Sodium Level 140 mmol/L (136-145) Potassium Level 3.8 mmol/L (3.5-5.1) Chloride Level 103 mmol/L (98-107) Carbon Dioxide Level 25 mmol/L (21-32) Anion Gap 12 (6-14) Blood Urea Nitrogen 18 mg/dL (7-20) Creatinine 3.3 mg/dL (0.6-1.0) Estimated GFR (Cockcroft-Gault) 13.7 BUN/Creatinine Ratio 5 (6-20) Glucose Level 98 mg/dL (70-99) Lactic Acid Level 2.2 mmol/L (0.4-2.0) Calcium Level 8.6 mg/dL (8.5-10.1) Magnesium Level 2.1 mg/dL (1.8-2.4) Total Bilirubin 0.9 mg/dL (0.2-1.0) Aspartate Amino Transf (AST/SGOT) 27 U/L (15-37) Alanine Aminotransferase (ALT/SGPT) 19 U/L (14-59) Alkaline Phosphatase 162 U/L (46-116) Troponin I Quantitative 0.028 ng/mL (0.000-0.055) Total Protein 7.0 g/dL (6.4-8.2) Albumin 2.3 g/dL (3.4-5.0) Albumin/Globulin Ratio 0.5 (1.0-1.7) Ammonia 33 mcmol/L (11-34) Test 12/06/18 19:42 12/06/18 20:19 12/06/18 21:20 12/07/18 00:30 Glucose (Fingerstick) 104 mg/dL (70-99) 77 mg/dL (70-99) O2 Saturation 90 % (92-99) Arterial Blood pH 7.36 (7.35-7.45) Arterial Blood pCO2 at Patient Temp 41 mmHg (35-46) Arterial Blood pO2 at Patient Temp 64 mmHg (65-108) Arterial Blood HCO3 23 mmol/L (21-28) Arterial Blood Base Excess -3 mmol/L (-3-3) Oxyhemoglobin 88.8 % Methemoglobin 0.3 % (0.0-1.9) Carbon Monoxide, Quantitative 1.5 % (0.0-1.9) FiO2 21 Lactic Acid Level 1.8 mmol/L (0.4-2.0) Test 12/07/18 08:08 Glucose (Fingerstick) 100 mg/dL (70-99) Laboratory Tests Test 12/06/18 16:24 12/06/18 17:45 12/06/18 17:59 12/06/18 18:56 Glucose (Fingerstick) 84 mg/dL (70-99) 71 mg/dL (70-99) White Blood Count 5.7 x10^3/uL (4.0-11.0) Red Blood Count 3.63 x10^6/uL (3.50-5.40) Hemoglobin 11.0 g/dL (12.0-15.5) Hematocrit 34.1 % (36.0-47.0) Mean Corpuscular Volume 94 fL (79-100) Mean Corpuscular Hemoglobin 30 pg (25-35) Mean Corpuscular Hemoglobin Concent 32 g/dL (31-37) Red Cell Distribution Width 18.9 % (11.5-14.5) Platelet Count 73 x10^3/uL (140-400) Neutrophils (%) (Auto) 71 % (31-73) Lymphocytes (%) (Auto) 15 % (24-48) Monocytes (%) (Auto) 10 % (0-9) Eosinophils (%) (Auto) 3 % (0-3) Basophils (%) (Auto) 1 % (0-3) Neutrophils # (Auto) 4.0 x10^3uL (1.8-7.7) Lymphocytes # (Auto) 0.9 x10^3/uL (1.0-4.8) Monocytes # (Auto) 0.5 x10^3/uL (0.0-1.1) Eosinophils # (Auto) 0.2 x10^3/uL (0.0-0.7) Basophils # (Auto) 0.1 x10^3/uL (0.0-0.2) Prothrombin Time 18.7 SEC (11.7-14.0) Prothromb Time International Ratio 1.6 (0.8-1.1) Activated Partial Thromboplast Time 38 SEC (24-38) Sodium Level 140 mmol/L (136-145) Potassium Level 3.8 mmol/L (3.5-5.1) Chloride Level 103 mmol/L (98-107) Carbon Dioxide Level 25 mmol/L (21-32) Anion Gap 12 (6-14) Blood Urea Nitrogen 18 mg/dL (7-20) Creatinine 3.3 mg/dL (0.6-1.0) Estimated GFR (Cockcroft-Gault) 13.7 BUN/Creatinine Ratio 5 (6-20) Glucose Level 98 mg/dL (70-99) Lactic Acid Level 2.2 mmol/L (0.4-2.0) Calcium Level 8.6 mg/dL (8.5-10.1) Magnesium Level 2.1 mg/dL (1.8-2.4) Total Bilirubin 0.9 mg/dL (0.2-1.0) Aspartate Amino Transf (AST/SGOT) 27 U/L (15-37) Alanine Aminotransferase (ALT/SGPT) 19 U/L (14-59) Alkaline Phosphatase 162 U/L (46-116) Troponin I Quantitative 0.028 ng/mL (0.000-0.055) Total Protein 7.0 g/dL (6.4-8.2) Albumin 2.3 g/dL (3.4-5.0) Albumin/Globulin Ratio 0.5 (1.0-1.7) Ammonia 33 mcmol/L (11-34) Test 12/06/18 19:42 12/06/18 20:19 12/06/18 21:20 12/07/18 00:30 Glucose (Fingerstick) 104 mg/dL (70-99) 77 mg/dL (70-99) O2 Saturation 90 % (92-99) Arterial Blood pH 7.36 (7.35-7.45) Arterial Blood pCO2 at Patient Temp 41 mmHg (35-46) Arterial Blood pO2 at Patient Temp 64 mmHg (65-108) Arterial Blood HCO3 23 mmol/L (21-28) Arterial Blood Base Excess -3 mmol/L (-3-3) Oxyhemoglobin 88.8 % Methemoglobin 0.3 % (0.0-1.9) Carbon Monoxide, Quantitative 1.5 % (0.0-1.9) FiO2 21 Lactic Acid Level 1.8 mmol/L (0.4-2.0) Test 12/07/18 08:08 Glucose (Fingerstick) 100 mg/dL (70-99) Review All relevant outside records, renal labs, imaging studies, telemetry/EKG's were reviewed. Images Images CT Scan abdomen- Bilateral pleural effusions with adjacent atelectasis. Hepatic cirrhosis with findings of splenomegaly and vascular collaterals. Cholelithiasis. Anasarca. Ascites is notably increased compared to the prior exam. No evidence of organ laceration. ALE YEH MD Dec 07, 2018 11:20
[2018-12-07] MEDS: DOCUSATE SODIUM 100 MG CAPSULE. PO SCH (11:43)
--- NOTE | 2018-12-07 12:12 | NUR ---
Wound care: Patient seen per wound care consult. See wound assessment. Patient has wound vac on to an open incision from right BKA that took place initially in September of this year. Patient states she has been at facility in [place] for rehab and within the last week wound has really opened up. Wound vac removed and wound cleansed, assessed, measured, and pictured. Wound vac to be held at this time until vascular can assess wound and give orders to reapply wound vac. Wound would likely benefit from veraflo vac. The wound is reddened, with slough and mild odor. Granddaughter at bedside whom is involved in patient's care and would also like for physician to see patient's wound. Patient having some pain in wound. Recommendations for Aquacel Ag to wound bed and cover with ABD pad and kerlix at this time. If vascular can see patient today, wound care can reapply wound vac if ordered. Dressing applied and patient tolerated well. Patient also has some incontinence associated dermatitis to coccyx. Area cleansed and assessed. Recommendations for calazime cream. Cream applied. Patient self turns well with minimal assistance. Patient repositioned in bed and educated on turning. Call light in reach and bed lowered. Dressing change instructions left in room. Wound care will follow up with patient later today or tomorrow.
--- NOTE | 2018-12-07 12:53 | PDOC2 ---
GI CONSULT Reason For Consult: Ascites HPI: HPI: 73 y/o female sent to ER from SNU after falls. CT noticed increased ascites and we were asked to see for same. Slightly difficult historian - quiet, drowsy (not unusual). She denies abd pain. Hasn't been taking lactulose because she "didn't want to poop a lot." Not sure about Xifaxan, though neither are included on med list. H/o cirrhosis (suspected BILLINGS - viral hepatitis negative in the past along w/ JULES), ascites and paracentesis, and hepatic encephalopathy. We have recently seen her for abdominal pain - not enough ascites at that time for therapeutic paracentesis. Reviewed w/ our office - had EGD (Dr. Nuno) in 2006 w/ single non-bleeding ulcer. No record of colonoscopy. Has cancelled several office visits, also no- showed once. Known cholelithiasis. ACD w/ past hematology eval and bone marrow biopsy. H/o DM, CHF, ESRD on HD (past issues w/ compliance), and recent right BKA. PMH: PMH: CHF, HTN, HLD, COPD, pneumonia, GONZALO, CVA, peripheral neuropathy, anemia ( chronic disease), cirrhosis (ascites, paracentesis, hepatic encephalopathy), anxiety, depression, OA, ESRD on HD, UTI, DM, hypothyroidism, cholelithiasis, PUD hysterectomy, bone marrow biopsy, RBKA FH: Family History: DM Social History: ALCOHOL: none Drugs: None ROS: Difficult to obtain. Vitals: Vitals: Vital Signs Date Time Temp Pulse Resp B/P (MAP) Pulse Ox O2 Delivery O2 Flow Rate FiO2 12/07/18 09:40 64 146/78 12/07/18 07:00 98.5 18 95 Room Air 98.5 12/06/18 23:16 2.0 Labs: Labs: Laboratory Tests Test 12/06/18 16:24 12/06/18 17:45 12/06/18 17:59 12/06/18 18:56 Glucose (Fingerstick) 84 mg/dL (70-99) 71 mg/dL (70-99) White Blood Count 5.7 x10^3/uL (4.0-11.0) Red Blood Count 3.63 x10^6/uL (3.50-5.40) Hemoglobin 11.0 g/dL (12.0-15.5) Hematocrit 34.1 % (36.0-47.0) Mean Corpuscular Volume 94 fL (79-100) Mean Corpuscular Hemoglobin 30 pg (25-35) Mean Corpuscular Hemoglobin Concent 32 g/dL (31-37) Red Cell Distribution Width 18.9 % (11.5-14.5) Platelet Count 73 x10^3/uL (140-400) Neutrophils (%) (Auto) 71 % (31-73) Lymphocytes (%) (Auto) 15 % (24-48) Monocytes (%) (Auto) 10 % (0-9) Eosinophils (%) (Auto) 3 % (0-3) Basophils (%) (Auto) 1 % (0-3) Neutrophils # (Auto) 4.0 x10^3uL (1.8-7.7) Lymphocytes # (Auto) 0.9 x10^3/uL (1.0-4.8) Monocytes # (Auto) 0.5 x10^3/uL (0.0-1.1) Eosinophils # (Auto) 0.2 x10^3/uL (0.0-0.7) Basophils # (Auto) 0.1 x10^3/uL (0.0-0.2) Prothrombin Time 18.7 SEC (11.7-14.0) Prothromb Time International Ratio 1.6 (0.8-1.1) Activated Partial Thromboplast Time 38 SEC (24-38) Sodium Level 140 mmol/L (136-145) Potassium Level 3.8 mmol/L (3.5-5.1) Chloride Level 103 mmol/L (98-107) Carbon Dioxide Level 25 mmol/L (21-32) Anion Gap 12 (6-14) Blood Urea Nitrogen 18 mg/dL (7-20) Creatinine 3.3 mg/dL (0.6-1.0) Estimated GFR (Cockcroft-Gault) 13.7 BUN/Creatinine Ratio 5 (6-20) Glucose Level 98 mg/dL (70-99) Lactic Acid Level 2.2 mmol/L (0.4-2.0) Calcium Level 8.6 mg/dL (8.5-10.1) Magnesium Level 2.1 mg/dL (1.8-2.4) Total Bilirubin 0.9 mg/dL (0.2-1.0) Aspartate Amino Transf (AST/SGOT) 27 U/L (15-37) Alanine Aminotransferase (ALT/SGPT) 19 U/L (14-59) Alkaline Phosphatase 162 U/L (46-116) Troponin I Quantitative 0.028 ng/mL (0.000-0.055) Total Protein 7.0 g/dL (6.4-8.2) Albumin 2.3 g/dL (3.4-5.0) Albumin/Globulin Ratio 0.5 (1.0-1.7) Ammonia 33 mcmol/L (11-34) Test 12/06/18 19:42 12/06/18 20:19 12/06/18 21:20 12/07/18 00:30 Glucose (Fingerstick) 104 mg/dL (70-99) 77 mg/dL (70-99) O2 Saturation 90 % (92-99) Arterial Blood pH 7.36 (7.35-7.45) Arterial Blood pCO2 at Patient Temp 41 mmHg (35-46) Arterial Blood pO2 at Patient Temp 64 mmHg (65-108) Arterial Blood HCO3 23 mmol/L (21-28) Arterial Blood Base Excess -3 mmol/L (-3-3) Oxyhemoglobin 88.8 % Methemoglobin 0.3 % (0.0-1.9) Carbon Monoxide, Quantitative 1.5 % (0.0-1.9) FiO2 21 Lactic Acid Level 1.8 mmol/L (0.4-2.0) Test 12/07/18 08:08 Glucose (Fingerstick) 100 mg/dL (70-99) Allergies: Coded Allergies: adhesive (Verified Allergy, Intermediate, Rash, 10/15/18) TAPE Medications: Current Medications Medications (Trade) Dose Ordered Sig/Vijay Route PRN Reason Start Time Stop Time Status Last Admin Dose Admin Sodium Chloride 500 ml @ 500 mls/hr 1X ONCE IV 12/06/18 16:45 12/06/18 17:44 DC 12/06/18 18:13 Iohexol (Omnipaque 300 Mg/ml) 60 ml 1X ONCE IV 12/06/18 16:45 12/06/18 16:46 DC 12/06/18 16:45 Dextrose (Dextrose 50%-Water Syringe) 12.5 gm 1X ONCE IV 12/06/18 18:00 12/06/18 18:03 DC 12/06/18 18:11 Hydralazine HCl (Apresoline Inj) 10 mg PRN Q4HRS PRN IVP ELEVATED BP, SEE COMMENTS 12/06/18 23:15 12/07/18 00:03 Buspirone HCl (Buspar) 10 mg TIDWMEALS PO 12/07/18 08:00 12/07/18 09:39 Clonidine HCl (Catapres) 0.2 mg DAILY PO 12/07/18 09:00 12/07/18 09:40 Famotidine (Pepcid) 20 mg DAILY PO 12/07/18 09:00 12/07/18 09:40 Gabapentin (Neurontin) 100 mg DAILY PO 12/07/18 09:00 12/07/18 09:39 Levothyroxine Sodium (Synthroid) 125 mcg DAILY06 PO 12/07/18 06:00 12/07/18 09:39 Lorazepam (Ativan) 0.5 mg PRN Q6HRS PRN PO ANXIETY / AGITATION 12/07/18 07:00 12/07/18 09:44 Metoprolol Succinate (Toprol Xl) 25 mg DAILY PO 12/07/18 09:00 12/07/18 09:39 Sertraline HCl (Zoloft) 75 mg DAILY PO 12/07/18 09:00 12/07/18 09:38 Sevelamer Carbonate (Renvela) 800 mg TIDWMEALS PO 12/07/18 08:00 12/07/18 09:39 Isosorbide Mononitrate (Imdur) 30 mg DAILY PO 12/07/18 09:00 12/07/18 09:38 Meclizine HCl (Antivert) 25 mg TID PO 12/07/18 08:00 12/07/18 09:39 Docusate Sodium (Colace) 100 mg DAILY PO 12/07/18 12:30 12/07/18 11:43 Imaging: Imaging: CT A/P w/ IV contrast Small moderate-sized bilateral pleural effusions are present. Minimal adjacent atelectasis noted. Anasarca are noted. Nodular contour of the liver is present. There are 2 low-attenuation lesions involving the inferior aspect of the right hepatic lobe which probably were present cysts. Multiple calculi present within the gallbladder. Spleen is enlarged measuring 16.2 cm longitudinal. Vascular collaterals are notable involving the epigastric region including about the gastroesophageal junction level. Moderate to large amount of ascites and pelvic free fluid noted. Umbilical hernia defect is present with ascites within it. Kidneys are unremarkable. Pancreas is unremarkable. Adrenal glands are unremarkable. Lordosis of the lumbar spine is evident. Facet joint degenerative changes of the lumbar spine are present. Subcutaneous edema is noted involving the proximal right thigh. Impression: Bilateral pleural effusions with adjacent atelectasis. Hepatic cirrhosis with findings of splenomegaly and vascular collaterals. Cholelithiasis. Anasarca. Ascites is notably increased compared to the prior exam. No evidence of organ laceration. please see EMR for additional imaging PE: GEN: NAD HEENT: Atraumatic, PERRL LUNGS: CTAB HEART: RRR ABD: large, ascites (though not too tight/tender), umbilical hernia, firmness to lower abdomen (similar to last admission) EXTREMITY: right BKA w/ bandage SKIN: chronic discoloration LLE NEURO/PSYCH: drowsy A/P: A/P: Falls, ?confusion Cirrhosis, h/o ascites/paracentesis, h/o hepatic encephalopathy -portal hypertension/varices on imaging -last doppler 08/2018 ACD, thrombocytopenia, coagulopathy H/o GERD, PUD Cholelithiasis CRC screen - unclear DM, ESRD on HD, recent right BKA -- Ammonia level pending. Note palliative care asked to follow. Resume Xafaxin and lactulose - adjust lactulose as needed. Will ask for paracentesis and fluid studies. Other recs per Dr. Zabala (?need to repeat doppler, etc). BRENDA DONOVAN Dec 07, 2018 12:53
[2018-12-07] MEDS: rifAXIMin 550 MG TABLET PO SCH ×2 (13:00→20:41)
[2018-12-07] MEDS ORDERED: ALBUMIN HUMAN 25% 100 ML IV ONE ×2 (14:08→14:15)
--- NOTE | 2018-12-07 14:32 | NUR ---
SS following for discharge planning. SS received notification that pt was from [facility], ; fax [phone]. SS contacted [facility] to verify pt's previous placement. 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 SS will continue to follow for discharge planning.
--- NOTE | 2018-12-07 15:51 | RAD ---
Ultrasound-guided paracentesis 12/07/2018 3:47 PM Procedure: The risks and benefits of the procedure were discussed the patient. Informed consent was obtained. A timeout procedure was performed. Sonographic evaluation of the abdomen was performed demonstrating ascites . The left lower quadrant was prepped and draped using maximum sterile barrier technique. 1% lidocaine without epinephrine was administered for local anesthesia. Real-time ultrasonographic guidance was used in passing a 5 Bengali Yueh catheter into the fluid collection. 4.5 L of serous ascites was removed. The catheter was removed and pressure held to achieve hemostasis. A sterile dressing was applied. Impression: Successful ultrasound-guided paracentesis
--- NOTE | 2018-12-07 16:10 | PDOC2 ---
CONSULT Date of Consult Date of Consult DATE: 12/07/18 TIME: 16:07 Reason for Consult Reason for Consult: Right BKA stump nonhealing wound Identification/Chief Complaint Chief Complaint Patient well known to our service recent right below-knee amputation admitted with a fall and decreased level of consciousness and right BKA stump dehiscence Source Source: Chart review History of Present Illness Reason for Visit: Patient with multiple medical problems who recently underwent a right below- knee amputation. She was admitted from a rehabilitation facility with a fall and decreased level of consciousness. Workup showed no acute injury. She has multiple medical problems including end-stage renal disease, ascites, possible cirrhosis. Past Medical History Cardiovascular: CHF, HTN, Hyperlipidemia Pulmonary: COPD, Pneumonia, Other CENTRAL NERVOUS SYSTEM: CVA, Periperal neuropathy GI: GERD Heme/Onc: Anemia NOS Hepatobiliary: Cirrhosis Psych: Anxiety, Depression Musculoskeletal: Osteoarthritis Rheumatologic: No pertinent hx Infectious disease: No pertinent hx Renal/: Chronic renal failure, UTI Endocrine: Diabetes, Hypothyroidism Past Surgical History Past Surgical History Right below-knee amputation Past Surgical History: Hysterectomy Family History Family History: Diabetes Social History ALCOHOL: none Drugs: None Lives: with Family Current Medications Current Medications Current Medications Sodium Chloride 500 ml @ 500 mls/hr 1X ONCE IV Last administered on at 18:13; Start 12/06/18 at 16:45; Stop 12/06/18 at 17:44; Status DC Iohexol (Omnipaque 300 Mg/ml) 75 ml 1X ONCE IV ; Start 12/06/18 at 16:45; Stop 12/06/18 at 16:46; Status DC Iohexol (Omnipaque 300 Mg/ml) 60 ml 1X ONCE IV Last administered on 12/06/18at 16:45; Start 12/06/18 at 16:45; Stop 12/06/18 at 16:46; Status DC Info (CONTRAST GIVEN -- Rx MONITORING) 1 each PRN DAILY PRN MC SEE COMMENTS; Start 12/06/18 at 16:45; Stop 12/08/18 at 16:44 Dextrose (Dextrose 50%-Water Syringe) 12.5 gm 1X ONCE IV Last administered on 12/06/18at 18:11; Start 12/06/18 at 18:00; Stop 12/06/18 at 18:03; Status DC Dextrose (Dextrose 50%-Water Syringe) 12.5 gm 1X ONCE IV ; Start 12/06/18 at 20 :45; Stop 12/06/18 at 20:46; Status DC Labetalol HCl (Normodyne Iv Push) 20 mg PRN Q2HR PRN IVP HYPERTENSION, SEE COMMENTS; Start 12/06/18 at 23:15 Hydralazine HCl (Apresoline Inj) 10 mg PRN Q4HRS PRN IVP ELEVATED BP, SEE COMMENTS Last administered on 12/07/18at 00:03; Start 12/06/18 at 23:15 Buspirone HCl (Buspar) 10 mg TIDWMEALS PO Last administered on 12/07/18 09:39 ; Start 12/07/18 at 08:00 Clonidine HCl (Catapres) 0.2 mg DAILY PO Last administered on 12/07/18 09:40; Start 12/07/18 at 09:00 Famotidine (Pepcid) 20 mg DAILY PO Last administered on 12/07/18at 09:40; Start 12/07/18 at 09:00; Stop 12/07/18 at 12:52; Status DC Gabapentin (Neurontin) 100 mg DAILY PO Last administered on 12/07/18at 09:39; Start 12/07/18 at 09:00 Insulin Glargine (Lantus) 15 units DAILY SQ ; Start 12/07/18 at 09:00; Stop at 09:51; Status DC Lactulose (Lactulose) 10 gm PRN TID PRN PO CONSTIPATION; Start 12/07/18 at 07: 00; Stop 12/07/18 at 12:52; Status DC Levothyroxine Sodium (Synthroid) 125 mcg DAILY06 PO Last administered on at 09:39; Start 12/07/18 at 06:00 Lorazepam (Ativan) 0.5 mg PRN Q6HRS PRN PO ANXIETY / AGITATION Last administered on 12/07/18 09:44; Start 12/07/18 at 07:00 Metoprolol Succinate (Toprol Xl) 25 mg DAILY PO Last administered on 12/07/18 09:39; Start 12/07/18 at 09:00 Sertraline HCl (Zoloft) 75 mg DAILY PO Last administered on 12/07/18 09:38; Start 12/07/18 at 09:00 Sevelamer Carbonate (Renvela) 800 mg TIDWMEALS PO Last administered on at 09:39; Start 12/07/18 at 08:00 Non-Formulary Medication (Cephalexin (Keflex)) 1 cap BID PO ; Start 12/07/18 at 09:00; Stop 12/07/18 at 09:00; Status DC Isosorbide Mononitrate (Imdur) 30 mg DAILY PO Last administered on 12/07/18at 09 :38; Start 12/07/18 at 09:00 Meclizine HCl (Antivert) 25 mg TID PO Last administered on 12/07/18at 09:39; Start 12/07/18 at 08:00 Ondansetron HCl (Zofran Odt) 4 mg PRN Q6HRS PRN PO NAUSEA/VOMITING; Start 12/07 at 07:15 Tizanidine HCl (Zanaflex) 4 mg PRN Q12HRS PRN PO MUSCLE SPASMS; Start 12/07/18 at 07:15 Insulin Glargine (Lantus) 15 units QHS SQ ; Start 12/07/18 at 21:00 Amoxicillin/ Clavulanate Potassium (Augmentin 500/ 125mg) 1 tab BID PO ; Start 12/07/18 at 10:30; Stop 12/07/18 at 10:30; Status DC Docusate Sodium (Colace) 100 mg DAILY PO Last administered on 12/07/18at 11:43; Start 12/07/18 at 12:30 Lactulose (Lactulose) 20 gm BID PO ; Start 12/07/18 at 21:00 Rifaximin (Xifaxan) 550 mg Q12HR PO ; Start 12/07/18 at 13:00 Pantoprazole Sodium (Protonix) 40 mg DAILYAC PO ; Start 12/08/18 at 07:30 Albumin Human 100 ml @ As Directed STK-MED ONCE IV ; Start 12/07/18 at 14:08; Stop 12/07/18 at 14:09; Status DC Albumin Human 100 ml @ 100 mls/hr 1X ONCE IV Last administered on 12/07/18at 14:25; Start 12/07/18 at 14:15; Stop 12/07/18 at 15:14; Status DC Active Scripts Active Zofran (Ondansetron Hcl) 4 Mg Tablet 1 Tab PO Q6HRS Lantus Solostar (Insulin Glargine,Hum.rec.anlog) 100 Unit/1 Ml Insuln.pen 15 Units SQ DAILY 28 Days Lactulose 20 Gm/30 Ml Solution 10 Gm PO PRN TID PRN 10 Days Aspirin Ec (Aspirin) 325 Mg Tablet.dr 325 Mg PO DAILYWBKFT 30 Days Reported Melatonin 3 Mg Tablet 6 Mg PO QHS Keflex (Cephalexin) 500 Mg Capsule 1 Cap PO BID Buspirone Hcl 10 Mg Tablet 10 Mg PO TIDWMEALS Ativan (Lorazepam) 0.5 Mg Tablet 0.5 Mg PO PRN Q6HRS PRN Calcium Acetate 667 Mg Tablet 667 Mg PO TIDWMEALS Tizanidine Hcl 2 Mg Capsule 2 Mg PO BID PRN Meclizine Hcl 25 Mg Tablet 1 Tab PO TID Voltaren (Diclofenac Sodium) 100 Gm Gel..gram. 1 Gm TP BID Hydrocodone-Apap 5-325 (Hydrocodone Bit/Acetaminophen) 1 Each Tablet 2 Tab PO PRN Q6HRS PRN Clonidine Hcl 0.2 Mg Tablet 0.2 Mg PO DAILY Gabapentin (Gabapentin) 100 Mg Capsule 100 Mg PO DAILY Zoloft (Sertraline Hcl) 50 Mg Tablet 75 Mg PO DAILY Renvela (Sevelamer Carbonate) 800 Mg Tablet 1 Tab PO TIDWMEALS Levothyroxine Sodium 175 Mcg Tablet 125 Mcg PO DAILYAC Dialyvite Bovina D Tablet (Multivitamin, Min Cmb#25/Fa/D3) 1 Each Tablet 1 Each PO DAILY Metoprolol Succinate ( Xl ) (Metoprolol Succinate) 25 Mg Tab.er.24h 25 Mg PO DAILY Famotidine 20 Mg Tablet 20 Mg PO DAILY Isosorbide Dinitrate 30 Mg Tablet 1 Tab PO DAILY Allergies Allergies: Coded Allergies: adhesive (Verified Allergy, Intermediate, Rash, 10/15/18) TAPE Physical Exam Physical Exam Right BKA stump skin edges are necrotic, no clear purulent drainage no evidence of acute septic infection Vitals VITALS Vital Signs Date Time Temp Pulse Resp B/P (MAP) Pulse Ox O2 Delivery O2 Flow Rate FiO2 12/07/18 14:33 62 16 135/63 (87) 95 Room Air 12/07/18 11:00 98.4 98.4 4/14/19 23:16 2.0 Labs Labs Laboratory Tests Test 12/06/18 16:24 12/06/18 17:45 12/06/18 17:59 12/06/18 18:56 Glucose (Fingerstick) 84 mg/dL (70-99) 71 mg/dL (70-99) White Blood Count 5.7 x10^3/uL (4.0-11.0) Red Blood Count 3.63 x10^6/uL (3.50-5.40) Hemoglobin 11.0 g/dL (12.0-15.5) Hematocrit 34.1 % (36.0-47.0) Mean Corpuscular Volume 94 fL (79-100) Mean Corpuscular Hemoglobin 30 pg (25-35) Mean Corpuscular Hemoglobin Concent 32 g/dL (31-37) Red Cell Distribution Width 18.9 % (11.5-14.5) Platelet Count 73 x10^3/uL (140-400) Neutrophils (%) (Auto) 71 % (31-73) Lymphocytes (%) (Auto) 15 % (24-48) Monocytes (%) (Auto) 10 % (0-9) Eosinophils (%) (Auto) 3 % (0-3) Basophils (%) (Auto) 1 % (0-3) Neutrophils # (Auto) 4.0 x10^3uL (1.8-7.7) Lymphocytes # (Auto) 0.9 x10^3/uL (1.0-4.8) Monocytes # (Auto) 0.5 x10^3/uL (0.0-1.1) Eosinophils # (Auto) 0.2 x10^3/uL (0.0-0.7) Basophils # (Auto) 0.1 x10^3/uL (0.0-0.2) Prothrombin Time 18.7 SEC (11.7-14.0) Prothromb Time International Ratio 1.6 (0.8-1.1) Activated Partial Thromboplast Time 38 SEC (24-38) Sodium Level 140 mmol/L (136-145) Potassium Level 3.8 mmol/L (3.5-5.1) Chloride Level 103 mmol/L (98-107) Carbon Dioxide Level 25 mmol/L (21-32) Anion Gap 12 (6-14) Blood Urea Nitrogen 18 mg/dL (7-20) Creatinine 3.3 mg/dL (0.6-1.0) Estimated GFR (Cockcroft-Gault) 13.7 BUN/Creatinine Ratio 5 (6-20) Glucose Level 98 mg/dL (70-99) Lactic Acid Level 2.2 mmol/L (0.4-2.0) Calcium Level 8.6 mg/dL (8.5-10.1) Magnesium Level 2.1 mg/dL (1.8-2.4) Total Bilirubin 0.9 mg/dL (0.2-1.0) Aspartate Amino Transf (AST/SGOT) 27 U/L (15-37) Alanine Aminotransferase (ALT/SGPT) 19 U/L (14-59) Alkaline Phosphatase 162 U/L (46-116) Troponin I Quantitative 0.028 ng/mL (0.000-0.055) Total Protein 7.0 g/dL (6.4-8.2) Albumin 2.3 g/dL (3.4-5.0) Albumin/Globulin Ratio 0.5 (1.0-1.7) Ammonia 33 mcmol/L (11-34) Test 12/06/18 19:42 12/06/18 20:19 12/06/18 21:20 12/07/18 00:30 Glucose (Fingerstick) 104 mg/dL (70-99) 77 mg/dL (70-99) O2 Saturation 90 % (92-99) Arterial Blood pH 7.36 (7.35-7.45) Arterial Blood pCO2 at Patient Temp 41 mmHg (35-46) Arterial Blood pO2 at Patient Temp 64 mmHg (65-108) Arterial Blood HCO3 23 mmol/L (21-28) Arterial Blood Base Excess -3 mmol/L (-3-3) Oxyhemoglobin 88.8 % Methemoglobin 0.3 % (0.0-1.9) Carbon Monoxide, Quantitative 1.5 % (0.0-1.9) FiO2 21 Lactic Acid Level 1.8 mmol/L (0.4-2.0) Test 12/07/18 08:08 12/07/18 12:35 12/07/18 13:26 Glucose (Fingerstick) 100 mg/dL (70-99) 147 mg/dL (70-99) Ammonia 63 mcmol/L (11-34) Vitamin B12 Level 1359 pg/mL (247-911) Laboratory Tests Test 12/06/18 16:24 12/06/18 17:45 12/06/18 17:59 12/06/18 18:56 Glucose (Fingerstick) 84 mg/dL (70-99) 71 mg/dL (70-99) White Blood Count 5.7 x10^3/uL (4.0-11.0) Red Blood Count 3.63 x10^6/uL (3.50-5.40) Hemoglobin 11.0 g/dL (12.0-15.5) Hematocrit 34.1 % (36.0-47.0) Mean Corpuscular Volume 94 fL (79-100) Mean Corpuscular Hemoglobin 30 pg (25-35) Mean Corpuscular Hemoglobin Concent 32 g/dL (31-37) Red Cell Distribution Width 18.9 % (11.5-14.5) Platelet Count 73 x10^3/uL (140-400) Neutrophils (%) (Auto) 71 % (31-73) Lymphocytes (%) (Auto) 15 % (24-48) Monocytes (%) (Auto) 10 % (0-9) Eosinophils (%) (Auto) 3 % (0-3) Basophils (%) (Auto) 1 % (0-3) Neutrophils # (Auto) 4.0 x10^3uL (1.8-7.7) Lymphocytes # (Auto) 0.9 x10^3/uL (1.0-4.8) Monocytes # (Auto) 0.5 x10^3/uL (0.0-1.1) Eosinophils # (Auto) 0.2 x10^3/uL (0.0-0.7) Basophils # (Auto) 0.1 x10^3/uL (0.0-0.2) Prothrombin Time 18.7 SEC (11.7-14.0) Prothromb Time International Ratio 1.6 (0.8-1.1) Activated Partial Thromboplast Time 38 SEC (24-38) Sodium Level 140 mmol/L (136-145) Potassium Level 3.8 mmol/L (3.5-5.1) Chloride Level 103 mmol/L (98-107) Carbon Dioxide Level 25 mmol/L (21-32) Anion Gap 12 (6-14) Blood Urea Nitrogen 18 mg/dL (7-20) Creatinine 3.3 mg/dL (0.6-1.0) Estimated GFR (Cockcroft-Gault) 13.7 BUN/Creatinine Ratio 5 (6-20) Glucose Level 98 mg/dL (70-99) Lactic Acid Level 2.2 mmol/L (0.4-2.0) Calcium Level 8.6 mg/dL (8.5-10.1) Magnesium Level 2.1 mg/dL (1.8-2.4) Total Bilirubin 0.9 mg/dL (0.2-1.0) Aspartate Amino Transf (AST/SGOT) 27 U/L (15-37) Alanine Aminotransferase (ALT/SGPT) 19 U/L (14-59) Alkaline Phosphatase 162 U/L (46-116) Troponin I Quantitative 0.028 ng/mL (0.000-0.055) Total Protein 7.0 g/dL (6.4-8.2) Albumin 2.3 g/dL (3.4-5.0) Albumin/Globulin Ratio 0.5 (1.0-1.7) Ammonia 33 mcmol/L (11-34) Test 12/06/18 19:42 12/06/18 20:19 12/06/18 21:20 12/07/18 00:30 Glucose (Fingerstick) 104 mg/dL (70-99) 77 mg/dL (70-99) O2 Saturation 90 % (92-99) Arterial Blood pH 7.36 (7.35-7.45) Arterial Blood pCO2 at Patient Temp 41 mmHg (35-46) Arterial Blood pO2 at Patient Temp 64 mmHg (65-108) Arterial Blood HCO3 23 mmol/L (21-28) Arterial Blood Base Excess -3 mmol/L (-3-3) Oxyhemoglobin 88.8 % Methemoglobin 0.3 % (0.0-1.9) Carbon Monoxide, Quantitative 1.5 % (0.0-1.9) FiO2 21 Lactic Acid Level 1.8 mmol/L (0.4-2.0) Test 12/07/18 08:08 12/07/18 12:35 12/07/18 13:26 Glucose (Fingerstick) 100 mg/dL (70-99) 147 mg/dL (70-99) Ammonia 63 mcmol/L (11-34) Vitamin B12 Level 1359 pg/mL (247-911) Assessment/Plan Assessment/Plan 73-year-old woman with multiple medical problems recent right BKA and stump dehiscence. I see in her notes that she has had consult palliative care. In examining her BKA stump today she will need revision and likely conversion to an above-knee amputation if she is going to continue with her medical care. If family decides to make her comfort care only and does not want the surgery then we'll forego this. Her graft we will follow along and see with family's decisions are. MADIE PERDUE MD Dec 07, 2018 16:10
[2018-12-07 16:30] LABS: BF CLARITY CLEAR; BF COLOR YELLOW; BF MON % 93 %; BF PMN % 2 %; BF RBC COUNT 300 /cmm (Not Established); BF SOURCE ASCITES; BF WBC COUNT 85 /cmm (Not Established)
[2018-12-07 16:31] LABS: BF OTHER % 2 %
--- NOTE | 2018-12-07 19:48 | CONS ---
DATE OF CONSULTATION: 12/07/2018 REFERRING PHYSICIAN: Dr. Cuellar. REASON FOR CONSULTATION: Right BKA wound with wound VAC. HISTORY OF PRESENT ILLNESS: A 73-year-old female with history of chronic kidney disease on hemodialysis, history of cirrhosis, history of recent right BKA for severe right foot infection in is 10/21/2018, history of encephalopathy, history of pseudomonas was brought in to the ER by EMS from local rehab facility where the patient was found to have decreased level of consciousness yesterday. The patient apparently had a history of fall and hit the left side of the posterior head and left side back on the floor. The patient had bruising in these areas and the left knee, also had bruising of the right upper extremity where the patient has dialysis. The patient's blood sugar on arrival was 84. Right BKA with wound VAC site had bloody appearance of the stump. The patient undergoes dialysis through right upper extremity dialysis fistula on Friday, , and Friday. The patient has completed her p.o. antibiotics on 11/27/2018 as per plan upon discharge from [facility]. At the care home, currently she is not on any antibiotics. Currently, the patient is lying in bed. She is fairly comfortable, arousable, not a very good historian, but was able to say yes or no too many questions. She says she is uncertain if she has been taking any antibiotics prior to coming to the hospital. She had some nausea and vomiting yesterday, but currently it is resolved. She also had some pain at the right BKA site, but that is under control. Denies any headache, sore throat, nausea, vomiting, diarrhea, abdominal pain, chest pain. She has multiple bruises especially over the right upper extremity, left knee and some bruising over the right medial thigh. PAST MEDICAL HISTORY: Recent right BKA 10/21/2018, CHF, hypertension, hyperlipidemia, COPD, pneumonia, CVA, peripheral neuropathy, GERD, cirrhosis, anemia, anxiety, depression, osteoarthritis, CKD on hemodialysis, diabetes, hypothyroidism, status post hysterectomy, right AV shunt in upper extremity. REVIEW OF SYSTEMS: Negative except for above, though is somewhat unreliable. ALLERGIES: ADHESIVE TAPE. SOCIAL HISTORY: Currently at rehabilitation facility. No tobacco, no alcohol. Granddaughter at bedside. FAMILY HISTORY: As per HPI. CURRENT MEDICATIONS: Antibiotics none. Other medications reviewed in medication list. PHYSICAL EXAMINATION: VITAL SIGNS: Temperature 98.5, pulse 64, respiratory rate 18, blood pressure 146/78, oxygen saturation 95% on room air. CONSTITUTIONAL: Alert, awake, comfortable female in no acute distress, lying comfortably in bed. HEENT: Oropharynx clear. Normal conjunctivae. NECK: Supple. LUNGS: Decreased breath sounds at bases. CARDIOVASCULAR: S1, S2. ABDOMEN: Soft, nondistended. Bowel sounds present. No rebound or guarding. EXTREMITIES: No edema. Right BKA with wound VAC in place, intact, blood blisters present over the medial aspect of the right thigh. I did not take the wound VAC down. Numerous bruises present over the upper and lower extremity.Awaiting wound vac change later today per RN DERMATOLOGIC: Warm, dry. No generalized skin rash. NEUROLOGIC: Normal speech. Sensation intact. PSYCHIATRIC: Normal mood. LABORATORY DATA: WBC 5.7, hemoglobin 11.0, hematocrit 34.1, platelets 73. Sodium 140, potassium 3.8, chloride 103, bicarbonate 25, BUN 18, creatinine 3.3. Lactate was 2.2, glucose 71, magnesium 2.1. Troponin 0.028. MICROBIOLOGY: Urine culture and blood culture pending at this time. IMAGING: Abdomen and pelvic CT shows bilateral pleural effusion with adjacent atelectasis, hepatic cirrhosis with findings of splenomegaly and vascular collateral, cholelithiasis, anasarca. No evidence of organ laceration. Head and cervical spine CT shows no intracranial hemorrhage. Alignment of cervical spine is within normal limits, no definite findings of fracture, chronic ischemic changes with white matter noted. Calcification of the tentorium is present. Globes and optic nerves are unremarkable. Chest x-ray shows mild pulmonary edema, moderate cardiomegaly. No acute fracture. Humerus x-ray left and right shows no acute fracture. Right knee x-ray shows post-surgical change, demineralization, no acute bony abnormalities detected. Left lower extremity Doppler ultrasound on 11/25/2018 shows atherosclerotic plaque throughout the left lower extremity arteries from the superficial femoral to the calf arteries, 4.6 cm left [place] cyst and soft tissue edema along the medial left knee. IMPRESSION: 1. History of fall at a rehab facility prior to admission. 2. Encephalopathy, improving. 3. Chronic kidney disease, on hemodialysis. 4. Cirrhosis. 5. History of recent right [id number] on 10/21/[address] in place[address] 6. Ascites 7. Diabetes mellitus 2 with concern for hypoglycemia. RECOMMENDATIONS: 1. Pt has completed recent po antibiotics at the [facility]. 2. Awaiting wound team evaluation . 3. Continue local wound care. 4. Maintain aspiration precautions. 5. Vascular consult is pending. Discussed with granddaughter at bedside. Discussed with nursing. Thank you, Dr. Cuellar for consulting Infectious Disease to participate in this patient's care. If you have any questions, do not hesitate to contact me. MARTIN ALONZO MD DR: VICTOR MANUEL/nts JOB#: [id number] / [id number] GOKUL
[2018-12-07] MEDS: tiZANidine 4 MG TABLET. PO PRN (20:41)
[2018-12-07] MEDS: LACTULOSE 20 GM/30 ML SOLUTION. PO SCH (20:42)
[2018-12-07] MEDS: INSULIN GLARGINE 300 UNITS/3 ML INSULN.PEN. SQ SCH (20:47)
[2018-12-08] MEDS: hydrALAZINE 20 MG/ML VIAL. IVP PRN (02:06)
[2018-12-08 03:28] VITALS: BP 139/62
[2018-12-08 05:02] LABS: BASO # 0.1 x10^3/uL (0.0-0.2); BASO % 2 % (0-3); EOS # 0.2 x10^3/uL (0.0-0.7); EOS % 5 % (0-3); HEMATOCRIT 28.7 % (36.0-47.0); HEMOGLOBIN 9.3 g/dL (12.0-15.5); LYMPH # 0.7 x10^3/uL (1.0-4.8); LYMPH % 18 % (24-48); MEAN CORPUSCULAR HEMOGLOBIN 30 pg (25-35); MEAN CORPUSCULAR HGB CONC 32 g/dL (31-37); MEAN CORPUSCULAR VOLUME 94 fL (79-100); MONO # 0.4 x10^3/uL (0.0-1.1); MONO % 12 % (0-9); NEUT # 2.3 x10^3uL (1.8-7.7); NEUT % 63 % (31-73); PLATELET COUNT 60 x10^3/uL (140-400); RED BLOOD COUNT 3.07 x10^6/uL (3.50-5.40); RED CELL DISTRIBUTION WIDTH 19.6 % (11.5-14.5); WHITE BLOOD COUNT 3.6 x10^3/uL (4.0-11.0)
[2018-12-08 05:15] LABS: CALCIUM 8.3 mg/dL (8.5-10.1); GFR 8.5
[2018-12-08] MEDS: LEVOTHYROXINE 125 MCG TABLET PO SCH (06:16)
[2018-12-08 07:00] VITALS: BP 142/64
[2018-12-08] MEDS: SEVELAMER CARBONATE 800 MG TABLET. PO SCH ×3 (08:00→17:35)
[2018-12-08] MEDS: busPIRone 10 MG TABLET. PO SCH ×3 (08:00→17:35)
[2018-12-08] MEDS ORDERED: IV NORMAL SALINE 1000ML BAG 1,000 ML IV PRN ×2 (08:14)
[2018-12-08] MEDS ORDERED: diphenhydrAMINE 50 MG/ML VIAL IV PRN ×2 (08:15)
[2018-12-08] MEDS ORDERED: ACETAMINOPHEN 500 MG TABLET PO PRN (08:15)
[2018-12-08] MEDS ORDERED: DIALYSIS PATIENT. MC PRN (08:15)
[2018-12-08] MEDS ORDERED: ALBUMIN HUMAN 25% 200 ML IV PRN (08:15)
[2018-12-08] MEDS ORDERED: LIDOCAINE 1% PF 2 ML VIAL. ONE (08:27)
[2018-12-08] MEDS: MECLIZINE HCL 12.5 MG TABLET. PO SCH ×3 (09:00→21:19)
[2018-12-08] MEDS: DOCUSATE SODIUM 100 MG CAPSULE. PO SCH (09:00)
--- NOTE | 2018-12-08 10:11 | PDOC ---
Infectious Disease Note Subjective: Subjective pt is sleepy but arousable says pain is under control undergoing dialysis ROS: ROS no f/c/n/v/d Vital Signs: Vital Signs Vital Signs Date Time Temp Pulse Resp B/P (MAP) Pulse Ox O2 Delivery O2 Flow Rate FiO2 12/08/18 08:00 Nasal Cannula 2.0 12/08/18 07:00 97.6 44 14 142/64 (90) 98 97.6 Physical Exam: PHYSICAL EXAM CONSTITUTIONAL: Alert, awake, comfortable female in no acute distress, lying comfortably in bed. HEENT: Oropharynx clear. Normal conjunctivae. NECK: Supple. LUNGS: Decreased breath sounds at bases. CARDIOVASCULAR: S1, S2. ABDOMEN: Soft, nondistended. Bowel sounds present. No rebound or guarding. EXTREMITIES: No edema. Right BKA with wound VAC in place, intact, blood blisters present over the medial aspect of the right thigh. I did not take the wound VAC down. Numerous bruises present over the upper and lower extremity.Awaiting wound vac change later today per RN DERMATOLOGIC: Warm, dry. No generalized skin rash. NEUROLOGIC: Normal speech. Sensation intact. PSYCHIATRIC: Normal mood. Medications: Inpatient Meds: Current Medications Medications (Trade) Dose Ordered Sig/Vijay Start Time Stop Time Status Last Admin Dose Admin Acetaminophen (Tylenol) 500 mg 1X PRN PRN 12/08/18 08:15 12/09/18 08:14 12/08/18 10:05 500 MG Albumin Human 200 ml @ 200 mls/hr 1X PRN PRN 12/08/18 08:15 12/08/18 14:14 Amoxicillin/ Clavulanate Potassium (Augmentin 500/ 125mg) 1 tab BID 12/07/18 10:30 12/07/18 10:30 DC Buspirone HCl (Buspar) 10 mg TIDWMEALS 12/07/18 08:00 12/07/18 17:38 10 MG Clonidine HCl (Catapres) 0.2 mg DAILY 12/07/18 09:00 12/07/18 09:40 0.2 MG Dextrose (Dextrose 50%-Water Syringe) 12.5 gm 1X ONCE 12/06/18 20:45 12/06/18 20:46 DC Diphenhydramine HCl (Benadryl) 25 mg 1X PRN PRN 12/08/18 08:15 12/09/18 08:14 Docusate Sodium (Colace) 100 mg DAILY 12/07/18 12:30 12/07/18 11:43 100 MG Famotidine (Pepcid) 20 mg DAILY 12/07/18 09:00 12/07/18 12:52 DC 12/07/18 09:40 20 MG Gabapentin (Neurontin) 100 mg DAILY 12/07/18 09:00 12/07/18 09:39 100 MG Hydralazine HCl (Apresoline Inj) 10 mg PRN Q4HRS PRN 12/06/18 23:15 12/08/18 02:06 10 MG Info (CONTRAST GIVEN -- Rx MONITORING) 1 each PRN DAILY PRN 12/06/18 16:45 12/08/18 16:44 Info (PHARMACY MONITORING -- do not chart) 1 each PRN DAILY PRN 12/08/18 08:15 Insulin Glargine (Lantus) 15 units QHS 12/07/18 21:00 12/07/18 20:47 15 UNITS Iohexol (Omnipaque 300 Mg/ml) 60 ml 1X ONCE 12/06/18 16:45 12/06/18 16:46 DC 12/06/18 16:45 60 ML Isosorbide Mononitrate (Imdur) 30 mg DAILY 12/07/18 09:00 12/07/18 09:38 30 MG Labetalol HCl (Normodyne Iv Push) 20 mg PRN Q2HR PRN 12/06/18 23:15 Lactulose (Lactulose) 20 gm BID 12/07/18 21:00 12/07/18 20:42 20 GM Levothyroxine Sodium (Synthroid) 125 mcg DAILY06 12/07/18 06:00 12/08/18 06:16 125 MCG Lidocaine HCl (Xylocaine-Mpf 1% 2ml Vial) 2 ml STK-MED ONCE 12/08/18 08:27 12/08/18 08:28 DC Lorazepam (Ativan) 0.5 mg PRN Q6HRS PRN 12/07/18 07:00 12/07/18 20:41 0.5 MG Meclizine HCl (Antivert) 25 mg TID 12/07/18 08:00 12/07/18 20:41 25 MG Metoprolol Succinate (Toprol Xl) 25 mg DAILY 12/07/18 09:00 12/07/18 09:39 25 MG Non-Formulary Medication (Cephalexin (Keflex)) 1 cap BID 12/07/18 09:00 12/07/18 09:00 DC Ondansetron HCl (Zofran Odt) 4 mg PRN Q6HRS PRN 12/07/18 07:15 Pantoprazole Sodium (Protonix) 40 mg DAILYAC 12/08/18 07:30 Rifaximin (Xifaxan) 550 mg Q12HR 12/07/18 13:00 12/07/18 20:41 550 MG Sertraline HCl (Zoloft) 75 mg DAILY 12/07/18 09:00 12/07/18 09:38 75 MG Sevelamer Carbonate (Renvela) 800 mg TIDWMEALS 12/07/18 08:00 12/07/18 17:38 800 MG Sodium Chloride 1,000 ml @ 400 mls/hr Q2H30M PRN 12/08/18 08:14 12/08/18 20:13 Tizanidine HCl (Zanaflex) 4 mg PRN Q12HRS PRN 12/07/18 07:15 12/07/18 20:41 4 MG Labs: Lab Laboratory Tests Test 12/07/18 12:35 12/07/18 13:26 12/07/18 13:55 12/07/18 16:33 Ammonia 63 mcmol/L (11-34) Vitamin B12 Level 1359 pg/mL (247-911) Glucose (Fingerstick) 147 mg/dL (70-99) 130 mg/dL (70-99) Body Fluid Source Ascites Body Fluid Color Yellow Body Fluid Clarity Clear Body Fluid Nucleated Cells 85 /cmm (Not Established) Body Fluid Mononuclear WBCs (%) 93 % Body Fluid Polymorphonuclear Cells 2 % Body Fluid Total RBCs Counted 300 /cmm (Not Established) Body Fluid Other Cells (%) 2 % Test 12/07/18 21:55 12/08/18 03:50 12/08/18 07:54 Glucose (Fingerstick) 203 mg/dL (70-99) 219 mg/dL (70-99) White Blood Count 3.6 x10^3/uL (4.0-11.0) Red Blood Count 3.07 x10^6/uL (3.50-5.40) Hemoglobin 9.3 g/dL (12.0-15.5) Hematocrit 28.7 % (36.0-47.0) Mean Corpuscular Volume 94 fL (79-100) Mean Corpuscular Hemoglobin 30 pg (25-35) Mean Corpuscular Hemoglobin Concent 32 g/dL (31-37) Red Cell Distribution Width 19.6 % (11.5-14.5) Platelet Count 60 x10^3/uL (140-400) Neutrophils (%) (Auto) 63 % (31-73) Lymphocytes (%) (Auto) 18 % (24-48) Monocytes (%) (Auto) 12 % (0-9) Eosinophils (%) (Auto) 5 % (0-3) Basophils (%) (Auto) 2 % (0-3) Neutrophils # (Auto) 2.3 x10^3uL (1.8-7.7) Lymphocytes # (Auto) 0.7 x10^3/uL (1.0-4.8) Monocytes # (Auto) 0.4 x10^3/uL (0.0-1.1) Eosinophils # (Auto) 0.2 x10^3/uL (0.0-0.7) Basophils # (Auto) 0.1 x10^3/uL (0.0-0.2) Sodium Level 140 mmol/L (136-145) Potassium Level 4.0 mmol/L (3.5-5.1) Chloride Level 105 mmol/L (98-107) Carbon Dioxide Level 25 mmol/L (21-32) Anion Gap 10 (6-14) Blood Urea Nitrogen 30 mg/dL (7-20) Creatinine 5.0 mg/dL (0.6-1.0) Estimated GFR (Cockcroft-Gault) 8.5 Glucose Level 270 mg/dL (70-99) Calcium Level 8.3 mg/dL (8.5-10.1) Objective: Assessment: 1. History of fall at a rehab facility prior to admission. 2. Encephalopathy, improving. 3. Chronic kidney disease, on hemodialysis. 4. Cirrhosis. 5. History of recent right [id number] on 10/21/[address] in [address] now with wound dehiscence Vascular has recommended AKA, family has not been able to decide on the same, 6. Ascites 7. Diabetes mellitus 2 with concern for hypoglycemia. Plan: Plan of Care 1. start zosyn 2. Wound care per wound team 3. f/u ascitic fluid studies 4. Maintain aspiration precautions. 5. Vascular consult noted 6. Palliative care consulted Discussed with nursing. MARTIN ALONZO MD Dec 08, 2018 10:11
--- NOTE | 2018-12-08 12:54 | PDOC ---
Subjective: Subjective: Denies pain. Objective: Objective: Reviewed w/ RN - vascular has suggested AKA, plans for palliative discussion re : this. Has been out for dialysis today, but tolerated PO and has loose stools w/ lactulose. Vital Signs: Vital Signs Date Time Temp Pulse Resp B/P (MAP) Pulse Ox O2 Delivery O2 Flow Rate FiO2 12/08/18 08:00 Nasal Cannula 2.0 12/08/18 07:00 97.6 44 14 142/64 (90) 98 97.6 Labs: Laboratory Tests Test 12/07/18 13:26 12/07/18 13:55 12/07/18 16:33 12/07/18 21:55 Glucose (Fingerstick) 147 mg/dL 130 mg/dL 203 mg/dL Body Fluid Source Ascites Body Fluid Color Yellow Body Fluid Clarity Clear Body Fluid Nucleated Cells 85 /cmm Body Fluid Mononuclear WBCs (%) 93 % Body Fluid Polymorphonuclear Cells 2 % Body Fluid Total RBCs Counted 300 /cmm Body Fluid Other Cells (%) 2 % Test 12/08/18 03:50 12/08/18 07:54 White Blood Count 3.6 x10^3/uL Red Blood Count 3.07 x10^6/uL Hemoglobin 9.3 g/dL Hematocrit 28.7 % Mean Corpuscular Volume 94 fL Mean Corpuscular Hemoglobin 30 pg Mean Corpuscular Hemoglobin Concent 32 g/dL Red Cell Distribution Width 19.6 % Platelet Count 60 x10^3/uL Neutrophils (%) (Auto) 63 % Lymphocytes (%) (Auto) 18 % Monocytes (%) (Auto) 12 % Eosinophils (%) (Auto) 5 % Basophils (%) (Auto) 2 % Neutrophils # (Auto) 2.3 x10^3uL Lymphocytes # (Auto) 0.7 x10^3/uL Monocytes # (Auto) 0.4 x10^3/uL Eosinophils # (Auto) 0.2 x10^3/uL Basophils # (Auto) 0.1 x10^3/uL Sodium Level 140 mmol/L Potassium Level 4.0 mmol/L Chloride Level 105 mmol/L Carbon Dioxide Level 25 mmol/L Anion Gap 10 Blood Urea Nitrogen 30 mg/dL Creatinine 5.0 mg/dL Estimated GFR (Cockcroft-Gault) 8.5 Glucose Level 270 mg/dL Calcium Level 8.3 mg/dL Glucose (Fingerstick) 219 mg/dL Imaging: Paracentesis 12/07 4.5 L of serous ascites was removed. PE: GEN: dialyzing LUNGS: NC HEART: bradycardic ABD: less distended s/p paracentesis, soft, reducible umb hernia NEURO/PSYCH: very drowsy A/P: Cirrhosis w/ ascites, hepatic encephalopathy Pancytopenia DM, ESRD on HD, s/p RBKA w/ stump dehiscence -- Distention improved s/p paracentesis. Continue lactulose (goal 3-4 stools daily ) and Xifaxan. Await outcome of family meeting. BRENDA DONOVAN Dec 08, 2018 12:54
--- NOTE | 2018-12-08 13:55 | PDOC ---
PROGRESS NOTES Chief Complaint Chief Complaint History of fall at a rehab facility prior to admission: PT/OT Acute Encephalopathy: CT head negative, not on sedating meds. no fever or leukocytosis. improved, ammonia level okay Dm2: continue home insulin therapy ESRD on HD: nephro consulted recent right BKA and stump dehiscence: sx and wound care consulted. likely needs revision. family to help make decision. ID consulted and recommends Zosyn Cirrhosis w/ ascites s/p paracentesis. Continue lactulose (goal 3-4 stools daily) and Xifaxan. Pancytopenia dispo: to SNF once medically stable History of Present Illness History of Present Illness patient seen in HD. no complaints. denies chest pain sob nausea vomiting diarrhea Vitals Vitals Vital Signs Date Time Temp Pulse Resp B/P (MAP) Pulse Ox O2 Delivery O2 Flow Rate FiO2 12/08/18 08:00 Nasal Cannula 2.0 12/08/18 07:00 97.6 44 14 142/64 (90) 98 97.6 Physical Exam Physical Exam CONSTITUTIONAL: Alert, awake, comfortable female in no acute distress, lying comfortably in bed. HEENT: Oropharynx clear. Normal conjunctivae. NECK: Supple. LUNGS: Decreased breath sounds at bases. CARDIOVASCULAR: S1, S2. ABDOMEN: Soft, nondistended. Bowel sounds present. No rebound or guarding. EXTREMITIES: No edema. Right BKA with wound VAC in place, intact, blood blisters present over the medial aspect of the right thigh. I did not take the wound VAC down. Numerous bruises present over the upper and lower extremity.Awaiting wound vac change later today per RN DERMATOLOGIC: Warm, dry. No generalized skin rash. NEUROLOGIC: Normal speech. Sensation intact. PSYCHIATRIC: Normal mood. General: Alert, Cooperative, No acute distress, Other (lethargic, mild oriented 1/3) Lungs: Clear Extremities: No cyanosis, Other (right BKA with wound vac) Skin: No rashes Labs LABS Laboratory Tests Test 12/07/18 13:55 12/07/18 16:33 12/07/18 21:55 12/08/18 03:50 Body Fluid Source Ascites Body Fluid Color Yellow Body Fluid Clarity Clear Body Fluid Nucleated Cells 85 /cmm (Not Established) Body Fluid Mononuclear WBCs (%) 93 % Body Fluid Polymorphonuclear Cells 2 % Body Fluid Total RBCs Counted 300 /cmm (Not Established) Body Fluid Other Cells (%) 2 % Glucose (Fingerstick) 130 mg/dL (70-99) 203 mg/dL (70-99) White Blood Count 3.6 x10^3/uL (4.0-11.0) Red Blood Count 3.07 x10^6/uL (3.50-5.40) Hemoglobin 9.3 g/dL (12.0-15.5) Hematocrit 28.7 % (36.0-47.0) Mean Corpuscular Volume 94 fL (79-100) Mean Corpuscular Hemoglobin 30 pg (25-35) Mean Corpuscular Hemoglobin Concent 32 g/dL (31-37) Red Cell Distribution Width 19.6 % (11.5-14.5) Platelet Count 60 x10^3/uL (140-400) Neutrophils (%) (Auto) 63 % (31-73) Lymphocytes (%) (Auto) 18 % (24-48) Monocytes (%) (Auto) 12 % (0-9) Eosinophils (%) (Auto) 5 % (0-3) Basophils (%) (Auto) 2 % (0-3) Neutrophils # (Auto) 2.3 x10^3uL (1.8-7.7) Lymphocytes # (Auto) 0.7 x10^3/uL (1.0-4.8) Monocytes # (Auto) 0.4 x10^3/uL (0.0-1.1) Eosinophils # (Auto) 0.2 x10^3/uL (0.0-0.7) Basophils # (Auto) 0.1 x10^3/uL (0.0-0.2) Sodium Level 140 mmol/L (136-145) Potassium Level 4.0 mmol/L (3.5-5.1) Chloride Level 105 mmol/L (98-107) Carbon Dioxide Level 25 mmol/L (21-32) Anion Gap 10 (6-14) Blood Urea Nitrogen 30 mg/dL (7-20) Creatinine 5.0 mg/dL (0.6-1.0) Estimated GFR (Cockcroft-Gault) 8.5 Glucose Level 270 mg/dL (70-99) Calcium Level 8.3 mg/dL (8.5-10.1) Test 12/08/18 07:54 Glucose (Fingerstick) 219 mg/dL (70-99) Comment Review of Relevant I have reviewed the following items karyn (where applicable) has been applied. Labs Laboratory Tests Test 12/06/18 16:24 12/06/18 17:45 12/06/18 17:59 12/06/18 18:56 Glucose (Fingerstick) 84 mg/dL (70-99) 71 mg/dL (70-99) White Blood Count 5.7 x10^3/uL (4.0-11.0) Red Blood Count 3.63 x10^6/uL (3.50-5.40) Hemoglobin 11.0 g/dL (12.0-15.5) Hematocrit 34.1 % (36.0-47.0) Mean Corpuscular Volume 94 fL (79-100) Mean Corpuscular Hemoglobin 30 pg (25-35) Mean Corpuscular Hemoglobin Concent 32 g/dL (31-37) Red Cell Distribution Width 18.9 % (11.5-14.5) Platelet Count 73 x10^3/uL (140-400) Neutrophils (%) (Auto) 71 % (31-73) Lymphocytes (%) (Auto) 15 % (24-48) Monocytes (%) (Auto) 10 % (0-9) Eosinophils (%) (Auto) 3 % (0-3) Basophils (%) (Auto) 1 % (0-3) Neutrophils # (Auto) 4.0 x10^3uL (1.8-7.7) Lymphocytes # (Auto) 0.9 x10^3/uL (1.0-4.8) Monocytes # (Auto) 0.5 x10^3/uL (0.0-1.1) Eosinophils # (Auto) 0.2 x10^3/uL (0.0-0.7) Basophils # (Auto) 0.1 x10^3/uL (0.0-0.2) Prothrombin Time 18.7 SEC (11.7-14.0) Prothromb Time International Ratio 1.6 (0.8-1.1) Activated Partial Thromboplast Time 38 SEC (24-38) Sodium Level 140 mmol/L (136-145) Potassium Level 3.8 mmol/L (3.5-5.1) Chloride Level 103 mmol/L (98-107) Carbon Dioxide Level 25 mmol/L (21-32) Anion Gap 12 (6-14) Blood Urea Nitrogen 18 mg/dL (7-20) Creatinine 3.3 mg/dL (0.6-1.0) Estimated GFR (Cockcroft-Gault) 13.7 BUN/Creatinine Ratio 5 (6-20) Glucose Level 98 mg/dL (70-99) Lactic Acid Level 2.2 mmol/L (0.4-2.0) Calcium Level 8.6 mg/dL (8.5-10.1) Magnesium Level 2.1 mg/dL (1.8-2.4) Total Bilirubin 0.9 mg/dL (0.2-1.0) Aspartate Amino Transf (AST/SGOT) 27 U/L (15-37) Alanine Aminotransferase (ALT/SGPT) 19 U/L (14-59) Alkaline Phosphatase 162 U/L (46-116) Troponin I Quantitative 0.028 ng/mL (0.000-0.055) Total Protein 7.0 g/dL (6.4-8.2) Albumin 2.3 g/dL (3.4-5.0) Albumin/Globulin Ratio 0.5 (1.0-1.7) Ammonia 33 mcmol/L (11-34) Test 12/06/18 19:42 12/06/18 20:19 12/06/18 21:20 12/06/18 22:55 Glucose (Fingerstick) 104 mg/dL (70-99) 77 mg/dL (70-99) O2 Saturation 90 % (92-99) Arterial Blood pH 7.36 (7.35-7.45) Arterial Blood pCO2 at Patient Temp 41 mmHg (35-46) Arterial Blood pO2 at Patient Temp 64 mmHg (65-108) Arterial Blood HCO3 23 mmol/L (21-28) Arterial Blood Base Excess -3 mmol/L (-3-3) Oxyhemoglobin 88.8 % Methemoglobin 0.3 % (0.0-1.9) Carbon Monoxide, Quantitative 1.5 % (0.0-1.9) FiO2 21 Nasal Screen MRSA (PCR) Negative (Negative) Test 12/07/18 00:30 12/07/18 08:08 12/07/18 12:35 12/07/18 13:26 Lactic Acid Level 1.8 mmol/L (0.4-2.0) Glucose (Fingerstick) 100 mg/dL (70-99) 147 mg/dL (70-99) Ammonia 63 mcmol/L (11-34) Vitamin B12 Level 1359 pg/mL (247-911) Test 12/07/18 13:55 12/07/18 16:33 12/07/18 21:55 12/08/18 03:50 Body Fluid Source Ascites Body Fluid Color Yellow Body Fluid Clarity Clear Body Fluid Nucleated Cells 85 /cmm (Not Established) Body Fluid Mononuclear WBCs (%) 93 % Body Fluid Polymorphonuclear Cells 2 % Body Fluid Total RBCs Counted 300 /cmm (Not Established) Body Fluid Other Cells (%) 2 % Glucose (Fingerstick) 130 mg/dL (70-99) 203 mg/dL (70-99) White Blood Count 3.6 x10^3/uL (4.0-11.0) Red Blood Count 3.07 x10^6/uL (3.50-5.40) Hemoglobin 9.3 g/dL (12.0-15.5) Hematocrit 28.7 % (36.0-47.0) Mean Corpuscular Volume 94 fL (79-100) Mean Corpuscular Hemoglobin 30 pg (25-35) Mean Corpuscular Hemoglobin Concent 32 g/dL (31-37) Red Cell Distribution Width 19.6 % (11.5-14.5) Platelet Count 60 x10^3/uL (140-400) Neutrophils (%) (Auto) 63 % (31-73) Lymphocytes (%) (Auto) 18 % (24-48) Monocytes (%) (Auto) 12 % (0-9) Eosinophils (%) (Auto) 5 % (0-3) Basophils (%) (Auto) 2 % (0-3) Neutrophils # (Auto) 2.3 x10^3uL (1.8-7.7) Lymphocytes # (Auto) 0.7 x10^3/uL (1.0-4.8) Monocytes # (Auto) 0.4 x10^3/uL (0.0-1.1) Eosinophils # (Auto) 0.2 x10^3/uL (0.0-0.7) Basophils # (Auto) 0.1 x10^3/uL (0.0-0.2) Sodium Level 140 mmol/L (136-145) Potassium Level 4.0 mmol/L (3.5-5.1) Chloride Level 105 mmol/L (98-107) Carbon Dioxide Level 25 mmol/L (21-32) Anion Gap 10 (6-14) Blood Urea Nitrogen 30 mg/dL (7-20) Creatinine 5.0 mg/dL (0.6-1.0) Estimated GFR (Cockcroft-Gault) 8.5 Glucose Level 270 mg/dL (70-99) Calcium Level 8.3 mg/dL (8.5-10.1) Test 12/08/18 07:54 Glucose (Fingerstick) 219 mg/dL (70-99) Laboratory Tests Test 12/07/18 13:55 12/07/18 16:33 12/07/18 21:55 12/08/18 03:50 Body Fluid Source Ascites Body Fluid Color Yellow Body Fluid Clarity Clear Body Fluid Nucleated Cells 85 /cmm (Not Established) Body Fluid Mononuclear WBCs (%) 93 % Body Fluid Polymorphonuclear Cells 2 % Body Fluid Total RBCs Counted 300 /cmm (Not Established) Body Fluid Other Cells (%) 2 % Glucose (Fingerstick) 130 mg/dL (70-99) 203 mg/dL (70-99) White Blood Count 3.6 x10^3/uL (4.0-11.0) Red Blood Count 3.07 x10^6/uL (3.50-5.40) Hemoglobin 9.3 g/dL (12.0-15.5) Hematocrit 28.7 % (36.0-47.0) Mean Corpuscular Volume 94 fL (79-100) Mean Corpuscular Hemoglobin 30 pg (25-35) Mean Corpuscular Hemoglobin Concent 32 g/dL (31-37) Red Cell Distribution Width 19.6 % (11.5-14.5) Platelet Count 60 x10^3/uL (140-400) Neutrophils (%) (Auto) 63 % (31-73) Lymphocytes (%) (Auto) 18 % (24-48) Monocytes (%) (Auto) 12 % (0-9) Eosinophils (%) (Auto) 5 % (0-3) Basophils (%) (Auto) 2 % (0-3) Neutrophils # (Auto) 2.3 x10^3uL (1.8-7.7) Lymphocytes # (Auto) 0.7 x10^3/uL (1.0-4.8) Monocytes # (Auto) 0.4 x10^3/uL (0.0-1.1) Eosinophils # (Auto) 0.2 x10^3/uL (0.0-0.7) Basophils # (Auto) 0.1 x10^3/uL (0.0-0.2) Sodium Level 140 mmol/L (136-145) Potassium Level 4.0 mmol/L (3.5-5.1) Chloride Level 105 mmol/L (98-107) Carbon Dioxide Level 25 mmol/L (21-32) Anion Gap 10 (6-14) Blood Urea Nitrogen 30 mg/dL (7-20) Creatinine 5.0 mg/dL (0.6-1.0) Estimated GFR (Cockcroft-Gault) 8.5 Glucose Level 270 mg/dL (70-99) Calcium Level 8.3 mg/dL (8.5-10.1) Test 12/08/18 07:54 Glucose (Fingerstick) 219 mg/dL (70-99) Microbiology 12/06/18 Blood Culture - Preliminary, Resulted NO GROWTH AFTER 1 DAY Medications Current Medications Sodium Chloride 500 ml @ 500 mls/hr 1X ONCE IV Last administered on at 18:13; Start 12/06/18 at 16:45; Stop 12/06/18 at 17:44; Status DC Iohexol (Omnipaque 300 Mg/ml) 75 ml 1X ONCE IV ; Start 12/06/18 at 16:45; Stop 12/06/18 at 16:46; Status DC Iohexol (Omnipaque 300 Mg/ml) 60 ml 1X ONCE IV Last administered on 12/06/18at 16:45; Start 12/06/18 at 16:45; Stop 12/06/18 at 16:46; Status DC Info (CONTRAST GIVEN -- Rx MONITORING) 1 each PRN DAILY PRN MC SEE COMMENTS; Start 12/06/18 at 16:45; Stop 12/08/18 at 16:44 Dextrose (Dextrose 50%-Water Syringe) 12.5 gm 1X ONCE IV Last administered on 12/06/18at 18:11; Start 12/06/18 at 18:00; Stop 12/06/18 at 18:03; Status DC Dextrose (Dextrose 50%-Water Syringe) 12.5 gm 1X ONCE IV ; Start 12/06/18 at 20 :45; Stop 12/06/18 at 20:46; Status DC Labetalol HCl (Normodyne Iv Push) 20 mg PRN Q2HR PRN IVP HYPERTENSION, SEE COMMENTS; Start 12/06/18 at 23:15 Hydralazine HCl (Apresoline Inj) 10 mg PRN Q4HRS PRN IVP ELEVATED BP, SEE COMMENTS Last administered on 12/08/18at 02:06; Start 12/06/18 at 23:15 Buspirone HCl (Buspar) 10 mg TIDWMEALS PO Last administered on 12/07/18at 17:38 ; Start 12/07/18 at 08:00 Clonidine HCl (Catapres) 0.2 mg DAILY PO Last administered on 12/07/18at 09:40; Start 12/07/18 at 09:00 Famotidine (Pepcid) 20 mg DAILY PO Last administered on 12/07/18at 09:40; Start 12/07/18 at 09:00; Stop 12/07/18 at 12:52; Status DC Gabapentin (Neurontin) 100 mg DAILY PO Last administered on 12/07/18at 09:39; Start 12/07/18 at 09:00 Insulin Glargine (Lantus) 15 units DAILY SQ ; Start 12/07/18 at 09:00; Stop at 09:51; Status DC Lactulose (Lactulose) 10 gm PRN TID PRN PO CONSTIPATION; Start 12/07/18 at 07: 00; Stop 12/07/18 at 12:52; Status DC Levothyroxine Sodium (Synthroid) 125 mcg DAILY06 PO Last administered on at 06:16; Start 12/07/18 at 06:00 Lorazepam (Ativan) 0.5 mg PRN Q6HRS PRN PO ANXIETY / AGITATION Last administered on 12/07/18at 20:41; Start 12/07/18 at 07:00 Metoprolol Succinate (Toprol Xl) 25 mg DAILY PO Last administered on 12/07/18 09:39; Start 12/07/18 at 09:00 Sertraline HCl (Zoloft) 75 mg DAILY PO Last administered on 12/07/18 09:38; Start 12/07/18 at 09:00 Sevelamer Carbonate (Renvela) 800 mg TIDWMEALS PO Last administered on 17:38; Start 12/07/18 at 08:00 Non-Formulary Medication (Cephalexin (Keflex)) 1 cap BID PO ; Start 12/07/18 at 09:00; Stop 12/07/18 at 09:00; Status DC Isosorbide Mononitrate (Imdur) 30 mg DAILY PO Last administered on 12/07/18 09 :38; Start 12/07/18 at 09:00 Meclizine HCl (Antivert) 25 mg TID PO Last administered on 12/07/18 20:41; Start 12/07/18 at 08:00 Ondansetron HCl (Zofran Odt) 4 mg PRN Q6HRS PRN PO NAUSEA/VOMITING; Start 12/07 at 07:15 Tizanidine HCl (Zanaflex) 4 mg PRN Q12HRS PRN PO MUSCLE SPASMS Last administered on 12/07/18 20:41; Start 12/07/18 at 07:15 Insulin Glargine (Lantus) 15 units QHS SQ Last administered on 12/07/18 20:47 ; Start 12/07/18 at 21:00 Amoxicillin/ Clavulanate Potassium (Augmentin 500/ 125mg) 1 tab BID PO ; Start 12/07/18 at 10:30; Stop 12/07/18 at 10:30; Status DC Docusate Sodium (Colace) 100 mg DAILY PO Last administered on 12/07/18 11:43; Start 12/07/18 at 12:30 Lactulose (Lactulose) 20 gm BID PO Last administered on 12/07/18 20:42; Start 12/07/18 at 21:00 Rifaximin (Xifaxan) 550 mg Q12HR PO Last administered on 12/07/18 20:41; Start 12/07/18 at 13:00 Pantoprazole Sodium (Protonix) 40 mg DAILYAC PO ; Start 12/08/18 at 07:30 Albumin Human 100 ml @ As Directed STK-MED ONCE IV ; Start 12/07/18 at 14:08; Stop 12/07/18 at 14:09; Status DC Albumin Human 100 ml @ 100 mls/hr 1X ONCE IV Last administered on 12/07/18at 14:25; Start 12/07/18 at 14:15; Stop 12/07/18 at 15:14; Status DC Sodium Chloride 1,000 ml @ 1,000 mls/hr Q1H PRN IV hypotension; Start 12/08/18 at 08:14; Stop 12/08/18 at 14:13 Albumin Human 200 ml @ 200 mls/hr 1X PRN PRN IV Hypotension; Start 12/08/18 at 08:15; Stop 12/08/18 at 14:14 Acetaminophen (Tylenol) 500 mg 1X PRN PRN PO MILD PAIN / TEMP Last administered on 12/08/18at 10:05; Start 12/08/18 at 08:15; Stop 12/09/18 at 08:14 Diphenhydramine HCl (Benadryl) 25 mg 1X PRN PRN IV ITCHING; Start 12/08/18 at 08:15; Stop 12/09/18 at 08:14 Diphenhydramine HCl (Benadryl) 25 mg 1X PRN PRN IV ITCHING; Start 12/08/18 at 08:15; Stop 12/09/18 at 08:14 Sodium Chloride 1,000 ml @ 400 mls/hr Q2H30M PRN IV PATENCY; Start 12/08/18 at 08:14; Stop 12/08/18 at 20:13 Info (PHARMACY MONITORING -- do not chart) 1 each PRN DAILY PRN MC SEE COMMENTS ; Start 12/08/18 at 08:15 Lidocaine HCl (Xylocaine-Mpf 1% 2ml Vial) 2 ml STK-MED ONCE .ROUTE ; Start 12/08 at 08:27; Stop 12/08/18 at 08:28; Status DC Ondansetron HCl (Zofran) 4 mg PRN Q6HRS PRN IV NAUSEA/VOMITING; Start 12/09/18 at 07:00; Stop 12/10/18 at 06:59 Fentanyl Citrate (Fentanyl 2ml Vial) 25 mcg PRN Q5MIN PRN IV MILD PAIN; Start 12/09/18 at 07:00; Stop 12/10/18 at 06:59 Fentanyl Citrate (Fentanyl 2ml Vial) 50 mcg PRN Q5MIN PRN IV MODERATE TO SEVERE PAIN; Start 12/09/18 at 07:00; Stop 12/10/18 at 06:59 Morphine Sulfate (Morphine Sulfate) 1 mg PRN Q10MIN PRN IV SEVERE PAIN; Start 12/09/18 at 07:00; Stop 12/10/18 at 06:59 Ringer's Solution 1,000 ml @ 30 mls/hr Q24H IV ; Start 12/09/18 at 07:00; Stop 12/09/18 at 18:59 Lidocaine HCl (Xylocaine-Mpf 1% 2ml Vial) 2 ml PRN 1X PRN ID IV START; Start at 07:00; Stop 12/10/18 at 06:59 Hydromorphone HCl (Dilaudid) 0.5 mg PRN Q10MIN PRN IV SEV PAIN, Second choice; Start 12/09/18 at 07:00; Stop 12/10/18 at 06:59 Prochlorperazine Edisylate (Compazine) 5 mg PACU PRN PRN IV NAUSEA, MRX1; Start 12/09/18 at 07:00; Stop 12/10/18 at 06:59 Piperacillin Sod/ Tazobactam Sod 2.25 gm/Sodium Chloride 50 ml @ 100 mls/hr Q8HRS IV ; Start 12/08/18 at 13:00 Bacitracin 17446 unit/Sodium Chloride 500 ml @ 500 mls/hr 1X ONCE IRR ; Start 12/09/18 at 06:00; Stop 12/09/18 at 06:59 Active Scripts Active Zofran (Ondansetron Hcl) 4 Mg Tablet 1 Tab PO Q6HRS Lantus Solostar (Insulin Glargine,Hum.rec.anlog) 100 Unit/1 Ml Insuln.pen 15 Units SQ DAILY 28 Days Lactulose 20 Gm/30 Ml Solution 10 Gm PO PRN TID PRN 10 Days Aspirin Ec (Aspirin) 325 Mg Tablet.dr 325 Mg PO DAILYWBKFT 30 Days Reported Melatonin 3 Mg Tablet 6 Mg PO QHS Keflex (Cephalexin) 500 Mg Capsule 1 Cap PO BID Buspirone Hcl 10 Mg Tablet 10 Mg PO TIDWMEALS Ativan (Lorazepam) 0.5 Mg Tablet 0.5 Mg PO PRN Q6HRS PRN Calcium Acetate 667 Mg Tablet 667 Mg PO TIDWMEALS Tizanidine Hcl 2 Mg Capsule 2 Mg PO BID PRN Meclizine Hcl 25 Mg Tablet 1 Tab PO TID Voltaren (Diclofenac Sodium) 100 Gm Gel..gram. 1 Gm TP BID Hydrocodone-Apap 5-325 (Hydrocodone Bit/Acetaminophen) 1 Each Tablet 2 Tab PO PRN Q6HRS PRN Clonidine Hcl 0.2 Mg Tablet 0.2 Mg PO DAILY Gabapentin (Gabapentin) 100 Mg Capsule 100 Mg PO DAILY Zoloft (Sertraline Hcl) 50 Mg Tablet 75 Mg PO DAILY Renvela (Sevelamer Carbonate) 800 Mg Tablet 1 Tab PO TIDWMEALS Levothyroxine Sodium 175 Mcg Tablet 125 Mcg PO DAILYAC Dialyvite [place] D Tablet (Multivitamin, Min Cmb#25/Fa/D3) 1 Each Tablet 1 Each PO DAILY Metoprolol Succinate ( Xl ) (Metoprolol Succinate) 25 Mg Tab.er.24h 25 Mg PO DAILY Famotidine 20 Mg Tablet 20 Mg PO DAILY Isosorbide Dinitrate 30 Mg Tablet 1 Tab PO DAILY Vitals/I & O Vital Sign - Last 24 Hours 12/07/18 12/07/18 12/07/18 12/07/18 13:53 13:58 14:03 14:08 Pulse 59 55 55 51 Resp 18 18 18 B/P (MAP) 151/68 (95) 140/66 (90) 126/58 (80) 114/58 (76) Pulse Ox 91 93 93 93 O2 Delivery Room Air Room Air Room Air Room Air 12/07/18 12/07/18 12/07/18 12/07/18 14:13 14:18 14:23 14:28 Pulse 56 56 59 60 Resp 18 18 16 16 B/P (MAP) 113/57 (75) 114/55 (74) 138/62 (87) 127/62 (83) Pulse Ox 92 92 92 92 O2 Delivery Room Air Room Air Room Air Room Air 12/07/18 12/07/18 12/07/18 12/07/18 14:33 14:59 15:14 15:44 Pulse 62 Resp 16 B/P (MAP) 135/63 (87) 122/56 (78) 114/56 (75) 116/57 (76) Pulse Ox 95 O2 Delivery Room Air 12/07/18 12/07/18 12/07/18 12/08/18 19:55 20:00 23:00 02:06 Temp 97.9 97.9 Pulse 62 54 54 Resp 16 16 B/P (MAP) 121/62 (81) 172/74 (106) 172/74 Pulse Ox 96 98 O2 Delivery Room Air Nasal Cannula Nasal Cannula O2 Flow Rate 2.0 2.0 12/08/18 12/08/18 12/08/18 03:28 07:00 08:00 Temp 98.1 97.6 98.1 97.6 Pulse 46 44 Resp 16 14 B/P (MAP) 139/62 (87) 142/64 (90) Pulse Ox 97 98 O2 Delivery Nasal Cannula Nasal Cannula Nasal Cannula O2 Flow Rate 2.0 2.0 2.0 Intake and Output 12/07/18 12/07/18 12/08/18 15:00 23:00 07:00 Intake Total 280 ml Output Total 4500 ml Balance -4500 ml 280 ml HORACIO GILL MD Dec 08, 2018 13:55
[2018-12-08] MEDS: METOPROLOL SUCC 24HR ER 25 MG TAB.ER.24H. PO SCH (13:59)
[2018-12-08] MEDS: cloNIDine HCL 0.2 MG TABLET PO SCH (14:00)
[2018-12-08] MEDS: ISOSORBIDE MONONITRATE ER 30 MG TAB.ER.24H PO SCH (14:01)
[2018-12-08] MEDS: PANTOPRAZOLE 40 MG TABLET.DR. PO SCH (14:02)
[2018-12-08] MEDS: rifAXIMin 550 MG TABLET PO SCH ×2 (14:02→21:19)
[2018-12-08] MEDS: GABAPENTIN 100 MG CAPSULE. PO SCH (14:02)
[2018-12-08] MEDS: SERTRALINE 50 MG TABLET. PO SCH (14:02)
[2018-12-08] MEDS: LACTULOSE 20 GM/30 ML SOLUTION. PO SCH ×2 (14:03→21:19)
[2018-12-08 15:00] VITALS: BP 140/65
--- NOTE | 2018-12-08 15:07 | PDOC2 ---
PALLIATIVE CARE Palliative Care Note Palliative Care Patient alert. Recently returned from dialysis. Visiting with granddaughter Angela. Met with patient, Angela and patient's Kevin per phone. 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 right leg wound Discussed options for care; continue current treatment plan with option of AKA ; continue dialysis, management of cirrhosis/fluids. vs comfort care--stopping aggressive care, dialysis and no surgery. Patient shared that she feels she still has some quality of life--family, participating in activities at the alf. Kevin is supportive of her wishes. Confirmed Code Status; DNR/DNI. Outside the Hospital DNR/DNI form signed. Angela understands DNR/DNI will be held while in surgery [place]; important part of her life. Anglea will have more conversation with her grandfather. She is concerned about her grandmother's suffering. Patient will likely return to alf when discharged. If any plans change Angela will be in contact. Plan: Continue current treatment plan. DNR/DNI VEDA SIEGEL Dec 08, 2018 15:07
[2018-12-08] MEDS: PIPERACILLIN/TAZOBACTAM 2.25 GM in IV NORMAL SALINE 50ML 50 ML IV SCH ×2 (15:09→21:20)
--- NOTE | 2018-12-08 16:32 | PDOC ---
Provider Note Provider Note S: Consulted regarding right BKA wound dehiscence. Pt doing ok today. Does not report any pain. O: VSS, afebrile, in no apparent distress Right BKA stump skin edges are necrotic, no clear purulent drainage no evidence of acute septic infection A/P: Pt seen today, discussed surgery tomorrow. Right above knee amputation has been recommended. 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 I discussed with her options as discussed between her and Dr. Zuniga, she reports she would like to proceed with surgery. I did discuss with her risks/benefits of surgery, she agreed to proceed as planned. For surgery tomorrow. Discussed with BREANNE. SANDRA ISRAEL Dec 08, 2018 16:32
--- NOTE | 2018-12-08 17:07 | PATHOLOGY ---
Note [facility] Accession Number: [id number] TESTS RESULT FLAG UNITS REF RANGE LAB Clinician Provided Cytology Information No. of containers..01 Other (Miscellaneous) Source: 01 ABDOMINAL FLUID DIAGNOSIS: 02 ABDOMINAL FLUID NEGATIVE FOR MALIGNANT CELLS. FOCALLY REACTIVE MESOTHELIAL AND INFLAMMATORY CELLS PRESENT. THIS INTERPRETATION INCLUDES EVALUATION OF A CELL BLOCK. Signed out by: 02 Sebastian Lyons MD, Pathologist NPI- [id number] Performed by: Denise Jacobo, Region Manager ([facility]) Gross description: 01 27ML, YELLOW, CLOUDY /LCS FLAG LEGEND: L-Low Normal,H-High Normal,LL-Alert Low,HH-Alert High <-Panic Low,>-Panic High,A-Abnormal,AA-Critical Abnormal Performed at: [facility] [address] [place] [address] Keo Garcia MD, 02 [facility] [address] [place] [address] Sebastian Lyons MD, Specimen Comment: A courtesy copy of this report has been sent to Specimen Comment: [phone], , , . Specimen Comment: Report sent to DR CHEN,DR PAREKH,DR TRUONG / DR GAMEZ Specimen Comment: A duplicate report has been generated due to demographic updates. Performed at: 01 [facility] [id number], [place], [place] [id number] MD Keo Garcia MD Phone: [phone]
--- NOTE | 2018-12-08 17:34 | PDOC ---
SUBJECTIVE ROS Seen on HD states much better "since fluid removed from belly" OBJECTIVE Vital Signs Vital Signs Date Time Temp Pulse Resp B/P (MAP) Pulse Ox O2 Delivery O2 Flow Rate FiO2 12/08/18 15:00 97.9 52 16 140/65 (90) 96 Nasal Cannula 2.0 97.9 I & 0 Intake and Output 12/08/18 07:00 Intake Total 280 ml Output Total 4500 ml Balance -4220 ml Intake Oral 280 ml Output Drainage Total 4500 ml # Voids 1 # Bowel Movements 6 PHYSICAL EXAM Physical Exam GEN: NAD HEEN: Om moist , O2 by NC NECK: Supple CVS: RRR, Murmur + RESP: CTA , No Acc. 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 Hx of Cirrhosis - Increased Ascites s/p Paracentesis 4.5 L of serous ascites removed on lactulose (goal 3-4 stools daily) and Xifaxan as per GI Anemia- As OP on WANDA and Fe as per protocol Hx of hepatic encephalopathy -portal hypertension/varices on imaging -last doppler 08/2018 ACD, thrombocytopenia, coagulopathy Palliative consulted as requested by Pt, Pt and family wants to continue care COMMENT/RELEVANT DATA Meds Current Medications Medications (Trade) Dose Ordered Sig/Vijay Start Time Stop Time Status Last Admin Dose Admin Acetaminophen (Tylenol) 500 mg 1X PRN PRN 12/08/18 08:15 12/09/18 08:14 12/08/18 10:05 500 MG Albumin Human 200 ml @ 200 mls/hr 1X PRN PRN 12/08/18 08:15 12/08/18 14:14 DC Amoxicillin/ Clavulanate Potassium (Augmentin 500/ 125mg) 1 tab BID 12/07/18 10:30 12/07/18 10:30 DC Bacitracin 10242 unit/Sodium Chloride 500 ml @ 500 mls/hr 1X ONCE 12/09/18 06:00 12/09/18 06:59 Buspirone HCl (Buspar) 10 mg TIDWMEALS 12/07/18 08:00 12/08/18 14:02 10 MG Clonidine HCl (Catapres) 0.2 mg DAILY 12/07/18 09:00 12/08/18 14:00 0.2 MG Dextrose (Dextrose 50%-Water Syringe) 12.5 gm 1X ONCE 12/06/18 20:45 12/06/18 20:46 DC Diphenhydramine HCl (Benadryl) 25 mg 1X PRN PRN 12/08/18 08:15 12/09/18 08:14 Docusate Sodium (Colace) 100 mg DAILY 12/07/18 12:30 12/07/18 11:43 100 MG Famotidine (Pepcid) 20 mg DAILY 12/07/18 09:00 12/07/18 12:52 DC 12/07/18 09:40 20 MG Fentanyl Citrate (Fentanyl 2ml Vial) 50 mcg PRN Q5MIN PRN 12/09/18 07:00 12/10/18 06:59 Gabapentin (Neurontin) 100 mg DAILY 12/07/18 09:00 12/08/18 14:02 100 MG Hydralazine HCl (Apresoline Inj) 10 mg PRN Q4HRS PRN 12/06/18 23:15 12/08/18 02:06 10 MG Hydromorphone HCl (Dilaudid) 0.5 mg PRN Q10MIN PRN 12/09/18 07:00 12/10/18 06:59 Info (CONTRAST GIVEN -- Rx MONITORING) 1 each PRN DAILY PRN 12/06/18 16:45 12/08/18 16:44 DC Info (PHARMACY MONITORING -- do not chart) 1 each PRN DAILY PRN 12/08/18 08:15 Insulin Glargine (Lantus) 15 units QHS 12/07/18 21:00 12/07/18 20:47 15 UNITS Iohexol (Omnipaque 300 Mg/ml) 60 ml 1X ONCE 12/06/18 16:45 12/06/18 16:46 DC 12/06/18 16:45 60 ML Isosorbide Mononitrate (Imdur) 30 mg DAILY 12/07/18 09:00 12/08/18 14:01 30 MG Labetalol HCl (Normodyne Iv Push) 20 mg PRN Q2HR PRN 12/06/18 23:15 Lactobacillus Rhamnosus (Culturelle) 1 cap BID 12/08/18 21:00 Lactulose (Lactulose) 20 gm BID 12/07/18 21:00 12/08/18 14:03 20 GM Levothyroxine Sodium (Synthroid) 125 mcg DAILY06 12/07/18 06:00 12/08/18 06:16 125 MCG Lidocaine HCl (Xylocaine-Mpf 1% 2ml Vial) 2 ml PRN 1X PRN 12/09/18 07:00 12/10/18 06:59 Lorazepam (Ativan) 0.5 mg PRN Q6HRS PRN 12/07/18 07:00 12/07/18 20:41 0.5 MG Meclizine HCl (Antivert) 25 mg TID 12/07/18 08:00 12/08/18 14:02 25 MG Metoprolol Succinate (Toprol Xl) 25 mg DAILY 12/07/18 09:00 12/08/18 13:59 25 MG Morphine Sulfate (Morphine Sulfate) 1 mg PRN Q10MIN PRN 12/09/18 07:00 12/10/18 06:59 Non-Formulary Medication (Cephalexin (Keflex)) 1 cap BID 12/07/18 09:00 12/07/18 09:00 DC Ondansetron HCl (Zofran Odt) 4 mg PRN Q6HRS PRN 12/07/18 07:15 Ondansetron HCl (Zofran) 4 mg PRN Q6HRS PRN 12/09/18 07:00 12/10/18 06:59 Pantoprazole Sodium (Protonix) 40 mg DAILYAC 12/08/18 07:30 12/08/18 14:02 40 MG Piperacillin Sod/ Tazobactam Sod 2.25 gm/Sodium Chloride 50 ml @ 100 mls/hr Q8HRS 12/08/18 13:00 12/08/18 15:09 100 MLS/HR Prochlorperazine Edisylate (Compazine) 5 mg PACU PRN PRN 12/09/18 07:00 12/10/18 06:59 Rifaximin (Xifaxan) 550 mg Q12HR 12/07/18 13:00 12/08/18 14:02 550 MG Ringer's Solution 1,000 ml @ 30 mls/hr Q24H 4/17/19 07:00 12/09/18 18:59 Sertraline HCl (Zoloft) 75 mg DAILY 12/07/18 09:00 12/08/18 14:02 75 MG Sevelamer Carbonate (Renvela) 800 mg TIDWMEALS 12/07/18 08:00 12/08/18 13:56 800 MG Sodium Chloride 1,000 ml @ 400 mls/hr Q2H30M PRN 12/08/18 08:14 12/08/18 20:13 Tizanidine HCl (Zanaflex) 4 mg PRN Q12HRS PRN 12/07/18 07:15 12/07/18 20:41 4 MG Lab Laboratory Tests Test 12/07/18 21:55 12/08/18 03:50 12/08/18 07:54 Glucose (Fingerstick) 203 mg/dL (70-99) 219 mg/dL (70-99) White Blood Count 3.6 x10^3/uL (4.0-11.0) Red Blood Count 3.07 x10^6/uL (3.50-5.40) Hemoglobin 9.3 g/dL (12.0-15.5) Hematocrit 28.7 % (36.0-47.0) Mean Corpuscular Volume 94 fL (79-100) Mean Corpuscular Hemoglobin 30 pg (25-35) Mean Corpuscular Hemoglobin Concent 32 g/dL (31-37) Red Cell Distribution Width 19.6 % (11.5-14.5) Platelet Count 60 x10^3/uL (140-400) Neutrophils (%) (Auto) 63 % (31-73) Lymphocytes (%) (Auto) 18 % (24-48) Monocytes (%) (Auto) 12 % (0-9) Eosinophils (%) (Auto) 5 % (0-3) Basophils (%) (Auto) 2 % (0-3) Neutrophils # (Auto) 2.3 x10^3uL (1.8-7.7) Lymphocytes # (Auto) 0.7 x10^3/uL (1.0-4.8) Monocytes # (Auto) 0.4 x10^3/uL (0.0-1.1) Eosinophils # (Auto) 0.2 x10^3/uL (0.0-0.7) Basophils # (Auto) 0.1 x10^3/uL (0.0-0.2) Sodium Level 140 mmol/L (136-145) Potassium Level 4.0 mmol/L (3.5-5.1) Chloride Level 105 mmol/L (98-107) Carbon Dioxide Level 25 mmol/L (21-32) Anion Gap 10 (6-14) Blood Urea Nitrogen 30 mg/dL (7-20) Creatinine 5.0 mg/dL (0.6-1.0) Estimated GFR (Cockcroft-Gault) 8.5 Glucose Level 270 mg/dL (70-99) Calcium Level 8.3 mg/dL (8.5-10.1) Results All relevant outside records, renal labs, imaging studies, telemetry/EKG's were reviewed. ALE YEH MD Dec 08, 2018 17:34
[2018-12-08 19:15] VITALS: BP 146/92
[2018-12-08] MEDS: LORazepam 0.5 MG TABLET PO PRN (21:18)
[2018-12-08] MEDS: tiZANidine 4 MG TABLET. PO PRN (21:18)
[2018-12-08] MEDS: LACTOBACILLUS RHAMNOSUS GG 1 CAPSULE. PO SCH (21:19)
[2018-12-08] MEDS: INSULIN GLARGINE 300 UNITS/3 ML INSULN.PEN. SQ SCH (22:08)
[2018-12-08 23:34] VITALS: BP 142/45
[2018-12-09 03:45] VITALS: BP 142/37
[2018-12-09 04:43] LABS: HEMATOCRIT 31.1 % (36.0-47.0); HEMOGLOBIN 10.1 g/dL (12.0-15.5); MEAN CORPUSCULAR HEMOGLOBIN 30 pg (25-35); MEAN CORPUSCULAR HGB CONC 33 g/dL (31-37); MEAN CORPUSCULAR VOLUME 93 fL (79-100); PLATELET COUNT 61 x10^3/uL (140-400); RED BLOOD COUNT 3.35 x10^6/uL (3.50-5.40); WHITE BLOOD COUNT 3.5 x10^3/uL (4.0-11.0)
[2018-12-09] MEDS: LEVOTHYROXINE 125 MCG TABLET PO SCH (04:59)
[2018-12-09 05:00] LABS: CALCIUM 8.1 mg/dL (8.5-10.1); CREATININE 3.6 mg/dL (0.6-1.0); GFR 12.4; POTASSIUM 3.5 mmol/L (3.5-5.1)
[2018-12-09] MEDS: PIPERACILLIN/TAZOBACTAM 2.25 GM in IV NORMAL SALINE 50ML 50 ML IV SCH ×2 (05:00→14:00)
[2018-12-09] MEDS ORDERED: BACITRACIN 50,000 UNIT in IV NORMAL SALINE 500ML BAG 500 ML IRR ONE (06:00)
[2018-12-09 07:00] VITALS: BP 152/47
[2018-12-09] MEDS ORDERED: LIDOCAINE 1% PF 2 ML VIAL. ID PRN (07:00)
[2018-12-09] MEDS ORDERED: IV RINGERS,LACTATED 1000ML 1,000 ML IV SCH (07:00)
[2018-12-09] MEDS ORDERED: HYDROmorphone 2 MG/ML VIAL IV PRN (07:00)
[2018-12-09] MEDS ORDERED: MORPHINE SULFATE 2 MG/ML VIAL. IV PRN (07:00)
[2018-12-09] MEDS ORDERED: PROCHLORPERAZINE 10 MG/2 ML VIAL. IV PRN (07:00)
[2018-12-09] MEDS ORDERED: fentaNYL PF VIAL 100 MCG/2 ML VIAL IV PRN ×2 (07:00)
[2018-12-09] MEDS ORDERED: ONDANSETRON PF 4 MG/2 ML VIAL. IV PRN (07:00)
--- NOTE | 2018-12-09 07:41 | NUR ---
After communicating with the patient and her and granddaughter last night, the patient and family has decided to not have her amputation surgery which was scheduled for 12/09/18. The family wishes to go back to retirement on a palliative care approach. This RN will contact surgery, Pat, RN from palliative services and SW to update them with what is the current plan.
--- NOTE | 2018-12-09 07:46 | PDOC ---
PROGRESS NOTES Chief Complaint Chief Complaint History of fall at a rehab facility prior to admission: PT/OT Acute Encephalopathy: CT head negative, not on sedating meds. no fever or leukocytosis. improved, ammonia level okay Dm2: continue home insulin therapy ESRD on HD: nephro consulted recent right BKA and stump dehiscence: sx and wound care consulted. likely needs revision. family to help make decision. ID consulted and recommends Zosyn Cirrhosis w/ ascites s/p paracentesis. Continue lactulose (goal 3-4 stools daily) and Xifaxan. 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 Tolerated HD well yesterday. no complaints. denies chest pain sob nausea vomiting diarrhea. Plan for possible R AKA is discontinued due to patient and family deciding for palliative care and d/c to SNF, aware the infection will inevitably recur Vitals Vitals Vital Signs Date Time Temp Pulse Resp B/P (MAP) Pulse Ox O2 Delivery O2 Flow Rate FiO2 12/09/18 03:45 98.4 50 18 142/37 (72) 94 Room Air 98.4 12/08/18 20:00 2.0 Physical Exam Physical Exam CONSTITUTIONAL: Alert, awake, comfortable female in no acute distress, lying comfortably in bed. HEENT: Oropharynx clear. Normal conjunctivae. NECK: Supple. LUNGS: Decreased breath sounds at bases. CARDIOVASCULAR: S1, S2. ABDOMEN: Soft, nondistended. Bowel sounds present. No rebound or guarding. EXTREMITIES: No edema. Right BKA with wound VAC in place, intact, blood blisters present over the medial aspect of the right thigh. I did not take the wound VAC down. Numerous bruises present over the upper and lower extremity.Awaiting wound vac change later today per RN DERMATOLOGIC: Warm, dry. No generalized skin rash. NEUROLOGIC: Normal speech. Sensation intact. PSYCHIATRIC: Normal mood. General: Alert, Cooperative, No acute distress, Other (lethargic, mild oriented 1/3) Lungs: Clear Extremities: No cyanosis, Other (right BKA with wound vac) Skin: No rashes Labs LABS Laboratory Tests Test 12/08/18 07:54 12/08/18 17:29 12/08/18 20:52 12/09/18 03:55 Glucose (Fingerstick) 219 mg/dL (70-99) 166 mg/dL (70-99) 195 mg/dL (70-99) White Blood Count 3.5 x10^3/uL (4.0-11.0) Red Blood Count 3.35 x10^6/uL (3.50-5.40) Hemoglobin 10.1 g/dL (12.0-15.5) Hematocrit 31.1 % (36.0-47.0) Mean Corpuscular Volume 93 fL (79-100) Mean Corpuscular Hemoglobin 30 pg (25-35) Mean Corpuscular Hemoglobin Concent 33 g/dL (31-37) Red Cell Distribution Width 19.0 % (11.5-14.5) Platelet Count 61 x10^3/uL (140-400) Prothrombin Time 20.0 SEC (11.7-14.0) Prothromb Time International Ratio 1.7 (0.8-1.1) Sodium Level 139 mmol/L (136-145) Potassium Level 3.5 mmol/L (3.5-5.1) Chloride Level 103 mmol/L (98-107) Carbon Dioxide Level 29 mmol/L (21-32) Anion Gap 7 (6-14) Blood Urea Nitrogen 17 mg/dL (7-20) Creatinine 3.6 mg/dL (0.6-1.0) Estimated GFR (Cockcroft-Gault) 12.4 Glucose Level 185 mg/dL (70-99) Calcium Level 8.1 mg/dL (8.5-10.1) Test 12/09/18 07:06 Glucose (Fingerstick) 164 mg/dL (70-99) Comment Review of Relevant I have reviewed the following items karyn (where applicable) has been applied. Labs Laboratory Tests Test 12/07/18 08:08 12/07/18 12:35 12/07/18 13:26 12/07/18 13:55 Glucose (Fingerstick) 100 mg/dL (70-99) 147 mg/dL (70-99) Ammonia 63 mcmol/L (11-34) Vitamin B12 Level 1359 pg/mL (247-911) Body Fluid Source Ascites Body Fluid Color Yellow Body Fluid Clarity Clear Body Fluid Nucleated Cells 85 /cmm (Not Established) Body Fluid Mononuclear WBCs (%) 93 % Body Fluid Polymorphonuclear Cells 2 % Body Fluid Total RBCs Counted 300 /cmm (Not Established) Body Fluid Other Cells (%) 2 % Body Fluid Glucose 147 mg/dL (.) Body Fluid Total Protein 1.9 g/dL (.) Body Fluid Lactate Dehydrogenase 57 IU/L (.) Body Fluid Amylase 18 U/L (.) Test 12/07/18 16:33 12/07/18 21:55 12/08/18 03:50 12/08/18 07:54 Glucose (Fingerstick) 130 mg/dL (70-99) 203 mg/dL (70-99) 219 mg/dL (70-99) White Blood Count 3.6 x10^3/uL (4.0-11.0) Red Blood Count 3.07 x10^6/uL (3.50-5.40) Hemoglobin 9.3 g/dL (12.0-15.5) Hematocrit 28.7 % (36.0-47.0) Mean Corpuscular Volume 94 fL (79-100) Mean Corpuscular Hemoglobin 30 pg (25-35) Mean Corpuscular Hemoglobin Concent 32 g/dL (31-37) Red Cell Distribution Width 19.6 % (11.5-14.5) Platelet Count 60 x10^3/uL (140-400) Neutrophils (%) (Auto) 63 % (31-73) Lymphocytes (%) (Auto) 18 % (24-48) Monocytes (%) (Auto) 12 % (0-9) Eosinophils (%) (Auto) 5 % (0-3) Basophils (%) (Auto) 2 % (0-3) Neutrophils # (Auto) 2.3 x10^3uL (1.8-7.7) Lymphocytes # (Auto) 0.7 x10^3/uL (1.0-4.8) Monocytes # (Auto) 0.4 x10^3/uL (0.0-1.1) Eosinophils # (Auto) 0.2 x10^3/uL (0.0-0.7) Basophils # (Auto) 0.1 x10^3/uL (0.0-0.2) Sodium Level 140 mmol/L (136-145) Potassium Level 4.0 mmol/L (3.5-5.1) Chloride Level 105 mmol/L (98-107) Carbon Dioxide Level 25 mmol/L (21-32) Anion Gap 10 (6-14) Blood Urea Nitrogen 30 mg/dL (7-20) Creatinine 5.0 mg/dL (0.6-1.0) Estimated GFR (Cockcroft-Gault) 8.5 Glucose Level 270 mg/dL (70-99) Calcium Level 8.3 mg/dL (8.5-10.1) Test 12/08/18 17:29 12/08/18 20:52 12/09/18 03:55 12/09/18 07:06 Glucose (Fingerstick) 166 mg/dL (70-99) 195 mg/dL (70-99) 164 mg/dL (70-99) White Blood Count 3.5 x10^3/uL (4.0-11.0) Red Blood Count 3.35 x10^6/uL (3.50-5.40) Hemoglobin 10.1 g/dL (12.0-15.5) Hematocrit 31.1 % (36.0-47.0) Mean Corpuscular Volume 93 fL (79-100) Mean Corpuscular Hemoglobin 30 pg (25-35) Mean Corpuscular Hemoglobin Concent 33 g/dL (31-37) Red Cell Distribution Width 19.0 % (11.5-14.5) Platelet Count 61 x10^3/uL (140-400) Prothrombin Time 20.0 SEC (11.7-14.0) Prothromb Time International Ratio 1.7 (0.8-1.1) Sodium Level 139 mmol/L (136-145) Potassium Level 3.5 mmol/L (3.5-5.1) Chloride Level 103 mmol/L (98-107) Carbon Dioxide Level 29 mmol/L (21-32) Anion Gap 7 (6-14) Blood Urea Nitrogen 17 mg/dL (7-20) Creatinine 3.6 mg/dL (0.6-1.0) Estimated GFR (Cockcroft-Gault) 12.4 Glucose Level 185 mg/dL (70-99) Calcium Level 8.1 mg/dL (8.5-10.1) Laboratory Tests Test 12/08/18 07:54 12/08/18 17:29 12/08/18 20:52 12/09/18 03:55 Glucose (Fingerstick) 219 mg/dL (70-99) 166 mg/dL (70-99) 195 mg/dL (70-99) White Blood Count 3.5 x10^3/uL (4.0-11.0) Red Blood Count 3.35 x10^6/uL (3.50-5.40) Hemoglobin 10.1 g/dL (12.0-15.5) Hematocrit 31.1 % (36.0-47.0) Mean Corpuscular Volume 93 fL (79-100) Mean Corpuscular Hemoglobin 30 pg (25-35) Mean Corpuscular Hemoglobin Concent 33 g/dL (31-37) Red Cell Distribution Width 19.0 % (11.5-14.5) Platelet Count 61 x10^3/uL (140-400) Prothrombin Time 20.0 SEC (11.7-14.0) Prothromb Time International Ratio 1.7 (0.8-1.1) Sodium Level 139 mmol/L (136-145) Potassium Level 3.5 mmol/L (3.5-5.1) Chloride Level 103 mmol/L (98-107) Carbon Dioxide Level 29 mmol/L (21-32) Anion Gap 7 (6-14) Blood Urea Nitrogen 17 mg/dL (7-20) Creatinine 3.6 mg/dL (0.6-1.0) Estimated GFR (Cockcroft-Gault) 12.4 Glucose Level 185 mg/dL (70-99) Calcium Level 8.1 mg/dL (8.5-10.1) Test 12/09/18 07:06 Glucose (Fingerstick) 164 mg/dL (70-99) Microbiology 12/06/18 Blood Culture - Preliminary, Resulted NO GROWTH AFTER 2 DAYS 12/07/18 Anaerobic/Aerobic Culture, Resulted Pending 12/07/18 Anaerobic Culture Result 1 (DARIN), Resulted Pending 12/07/18 Aerobic Culture, Resulted Pending 12/07/18 Aerobic Culture Result 1 (DARIN), Resulted Pending 12/07/18 Gram Stain - Final, Resulted 12/07/18 Gram Stain Result 1 (DARIN) - Final, Resulted 12/07/18 Gram Stain Result 2 (DARIN) - Final, Resulted Medications Current Medications Sodium Chloride 500 ml @ 500 mls/hr 1X ONCE IV Last administered on at 18:13; Start 12/06/18 at 16:45; Stop 12/06/18 at 17:44; Status DC Iohexol (Omnipaque 300 Mg/ml) 75 ml 1X ONCE IV ; Start 12/06/18 at 16:45; Stop 12/06/18 at 16:46; Status DC Iohexol (Omnipaque 300 Mg/ml) 60 ml 1X ONCE IV Last administered on 12/06/18at 16:45; Start 12/06/18 at 16:45; Stop 12/06/18 at 16:46; Status DC Info (CONTRAST GIVEN -- Rx MONITORING) 1 each PRN DAILY PRN MC SEE COMMENTS; Start 12/06/18 at 16:45; Stop 12/08/18 at 16:44; Status DC Dextrose (Dextrose 50%-Water Syringe) 12.5 gm 1X ONCE IV Last administered on 12/06/18at 18:11; Start 12/06/18 at 18:00; Stop 12/06/18 at 18:03; Status DC Dextrose (Dextrose 50%-Water Syringe) 12.5 gm 1X ONCE IV ; Start 12/06/18 at 20 :45; Stop 12/06/18 at 20:46; Status DC Labetalol HCl (Normodyne Iv Push) 20 mg PRN Q2HR PRN IVP HYPERTENSION, 1ST CHOICE; Start 12/06/18 at 23:15 Hydralazine HCl (Apresoline Inj) 10 mg PRN Q4HRS PRN IVP ELEVATED BP, 2ND CHOICE Last administered on 12/08/18at 02:06; Start 12/06/18 at 23:15 Buspirone HCl (Buspar) 10 mg TIDWMEALS PO Last administered on 12/08/18at 17:35 ; Start 12/07/18 at 08:00 Clonidine HCl (Catapres) 0.2 mg DAILY PO Last administered on 12/08/18at 14:00; Start 12/07/18 at 09:00 Famotidine (Pepcid) 20 mg DAILY PO Last administered on 12/07/18 09:40; Start 12/07/18 at 09:00; Stop 12/07/18 at 12:52; Status DC Gabapentin (Neurontin) 100 mg DAILY PO Last administered on 12/08/18at 14:02; Start 12/07/18 at 09:00 Insulin Glargine (Lantus) 15 units DAILY SQ ; Start 12/07/18 at 09:00; Stop at 09:51; Status DC Lactulose (Lactulose) 10 gm PRN TID PRN PO CONSTIPATION; Start 12/07/18 at 07: 00; Stop 12/07/18 at 12:52; Status DC Levothyroxine Sodium (Synthroid) 125 mcg DAILY06 PO Last administered on 04:59; Start 12/07/18 at 06:00 Lorazepam (Ativan) 0.5 mg PRN Q6HRS PRN PO ANXIETY / AGITATION Last administered on 12/08/18 21:18; Start 12/07/18 at 07:00 Metoprolol Succinate (Toprol Xl) 25 mg DAILY PO Last administered on 12/08/18 13:59; Start 12/07/18 at 09:00 Sertraline HCl (Zoloft) 75 mg DAILY PO Last administered on 12/08/18 14:02; Start 12/07/18 at 09:00 Sevelamer Carbonate (Renvela) 800 mg TIDWMEALS PO Last administered on 17:35; Start 12/07/18 at 08:00 Non-Formulary Medication (Cephalexin (Keflex)) 1 cap BID PO ; Start 12/07/18 at 09:00; Stop 12/07/18 at 09:00; Status DC Isosorbide Mononitrate (Imdur) 30 mg DAILY PO Last administered on 12/08/18at 14 :01; Start 12/07/18 at 09:00 Meclizine HCl (Antivert) 25 mg TID PO Last administered on 12/08/18 21:19; Start 12/07/18 at 08:00 Ondansetron HCl (Zofran Odt) 4 mg PRN Q6HRS PRN PO NAUSEA/VOMITING; Start 12/07 at 07:15 Tizanidine HCl (Zanaflex) 4 mg PRN Q12HRS PRN PO MUSCLE SPASMS Last administered on 12/08/18at 21:18; Start 12/07/18 at 07:15 Insulin Glargine (Lantus) 15 units QHS SQ Last administered on 12/08/18at 22:08 ; Start 12/07/18 at 21:00 Amoxicillin/ Clavulanate Potassium (Augmentin 500/ 125mg) 1 tab BID PO ; Start 12/07/18 at 10:30; Stop 12/07/18 at 10:30; Status DC Docusate Sodium (Colace) 100 mg DAILY PO Last administered on 12/07/18at 11:43; Start 12/07/18 at 12:30 Lactulose (Lactulose) 20 gm BID PO Last administered on 12/08/18at 21:19; Start 12/07/18 at 21:00 Rifaximin (Xifaxan) 550 mg Q12HR PO Last administered on 12/08/18at 21:19; Start 12/07/18 at 13:00 Pantoprazole Sodium (Protonix) 40 mg DAILYAC PO Last administered on 12/08/18at 14:02; Start 12/08/18 at 07:30 Albumin Human 100 ml @ As Directed STK-MED ONCE IV ; Start 12/07/18 at 14:08; Stop 12/07/18 at 14:09; Status DC Albumin Human 100 ml @ 100 mls/hr 1X ONCE IV Last administered on 12/07/18at 14:25; Start 12/07/18 at 14:15; Stop 12/07/18 at 15:14; Status DC Sodium Chloride 1,000 ml @ 1,000 mls/hr Q1H PRN IV hypotension; Start 12/08/18 at 08:14; Stop 12/08/18 at 14:13; Status DC Albumin Human 200 ml @ 200 mls/hr 1X PRN PRN IV Hypotension; Start 12/08/18 at 08:15; Stop 12/08/18 at 14:14; Status DC Acetaminophen (Tylenol) 500 mg 1X PRN PRN PO MILD PAIN / TEMP Last administered on 12/08/18at 10:05; Start 12/08/18 at 08:15; Stop 12/09/18 at 08:14 Diphenhydramine HCl (Benadryl) 25 mg 1X PRN PRN IV ITCHING; Start 12/08/18 at 08:15; Stop 12/09/18 at 08:14 Diphenhydramine HCl (Benadryl) 25 mg 1X PRN PRN IV ITCHING; Start 12/08/18 at 08:15; Stop 12/09/18 at 08:14 Sodium Chloride 1,000 ml @ 400 mls/hr Q2H30M PRN IV PATENCY; Start 12/08/18 at 08:14; Stop 12/08/18 at 20:13; Status DC Info (PHARMACY MONITORING -- do not chart) 1 each PRN DAILY PRN MC SEE COMMENTS ; Start 12/08/18 at 08:15 Lidocaine HCl (Xylocaine-Mpf 1% 2ml Vial) 2 ml STK-MED ONCE .ROUTE ; Start 12/08 at 08:27; Stop 12/08/18 at 08:28; Status DC Ondansetron HCl (Zofran) 4 mg PRN Q6HRS PRN IV NAUSEA/VOMITING; Start 12/09/18 at 07:00; Stop 12/10/18 at 06:59 Fentanyl Citrate (Fentanyl 2ml Vial) 25 mcg PRN Q5MIN PRN IV MILD PAIN; Start 12/09/18 at 07:00; Stop 12/10/18 at 06:59 Fentanyl Citrate (Fentanyl 2ml Vial) 50 mcg PRN Q5MIN PRN IV MODERATE TO SEVERE PAIN; Start 12/09/18 at 07:00; Stop 12/10/18 at 06:59 Morphine Sulfate (Morphine Sulfate) 1 mg PRN Q10MIN PRN IV SEVERE PAIN; Start 12/09/18 at 07:00; Stop 12/10/18 at 06:59 Ringer's Solution 1,000 ml @ 30 mls/hr Q24H IV ; Start 12/09/18 at 07:00; Stop 12/09/18 at 18:59 Lidocaine HCl (Xylocaine-Mpf 1% 2ml Vial) 2 ml PRN 1X PRN ID IV START; Start at 07:00; Stop 12/10/18 at 06:59 Hydromorphone HCl (Dilaudid) 0.5 mg PRN Q10MIN PRN IV SEV PAIN, Second choice; Start 12/09/18 at 07:00; Stop 12/10/18 at 06:59 Prochlorperazine Edisylate (Compazine) 5 mg PACU PRN PRN IV NAUSEA, MRX1; Start 12/09/18 at 07:00; Stop 12/10/18 at 06:59 Piperacillin Sod/ Tazobactam Sod 2.25 gm/Sodium Chloride 50 ml @ 100 mls/hr Q8HRS IV Last administered on 12/09/18at 05:00; Start 12/08/18 at 13:00 Bacitracin 43990 unit/Sodium Chloride 500 ml @ 500 mls/hr 1X ONCE IRR ; Start 12/09/18 at 06:00; Stop 12/09/18 at 06:59; Status DC Lactobacillus Rhamnosus (Culturelle) 1 cap BID PO Last administered on at 21:19; Start 12/08/18 at 21:00 Active Scripts Active Zofran (Ondansetron Hcl) 4 Mg Tablet 1 Tab PO Q6HRS Lantus Solostar (Insulin Glargine,Hum.rec.anlog) 100 Unit/1 Ml Insuln.pen 15 Units SQ DAILY 28 Days Lactulose 20 Gm/30 Ml Solution 10 Gm PO PRN TID PRN 10 Days Aspirin Ec (Aspirin) 325 Mg Tablet.dr 325 Mg PO DAILYWBKFT 30 Days Reported Melatonin 3 Mg Tablet 6 Mg PO QHS Keflex (Cephalexin) 500 Mg Capsule 1 Cap PO BID Buspirone Hcl 10 Mg Tablet 10 Mg PO TIDWMEALS Ativan (Lorazepam) 0.5 Mg Tablet 0.5 Mg PO PRN Q6HRS PRN Calcium Acetate 667 Mg Tablet 667 Mg PO TIDWMEALS Tizanidine Hcl 2 Mg Capsule 2 Mg PO BID PRN Meclizine Hcl 25 Mg Tablet 1 Tab PO TID Voltaren (Diclofenac Sodium) 100 Gm Gel..gram. 1 Gm TP BID Hydrocodone-Apap 5-325 (Hydrocodone Bit/Acetaminophen) 1 Each Tablet 2 Tab PO PRN Q6HRS PRN Clonidine Hcl 0.2 Mg Tablet 0.2 Mg PO DAILY Gabapentin (Gabapentin) 100 Mg Capsule 100 Mg PO DAILY Zoloft (Sertraline Hcl) 50 Mg Tablet 75 Mg PO DAILY Renvela (Sevelamer Carbonate) 800 Mg Tablet 1 Tab PO TIDWMEALS Levothyroxine Sodium 175 Mcg Tablet 125 Mcg PO DAILYAC Dialyvite Tina D Tablet (Multivitamin, Min Cmb#25/Fa/D3) 1 Each Tablet 1 Each PO DAILY Metoprolol Succinate ( Xl ) (Metoprolol Succinate) 25 Mg Tab.er.24h 25 Mg PO DAILY Famotidine 20 Mg Tablet 20 Mg PO DAILY Isosorbide Dinitrate 30 Mg Tablet 1 Tab PO DAILY Vitals/I & O Vital Sign - Last 24 Hours 12/08/18 12/08/18 12/08/18 12/08/18 08:00 13:59 14:00 14:01 Pulse 54 54 54 B/P (MAP) 140/65 140/65 140/65 O2 Delivery Nasal Cannula O2 Flow Rate 2.0 12/08/18 12/08/18 12/08/18 12/08/18 15:00 19:15 20:00 23:34 Temp 97.9 98.0 98.0 97.9 98.0 98.0 Pulse 52 50 50 Resp 16 20 20 B/P (MAP) 140/65 (90) 146/92 (110) 142/45 (77) Pulse Ox 96 95 94 O2 Delivery Nasal Cannula Room Air Nasal Cannula Room Air O2 Flow Rate 2.0 2.0 12/09/18 03:45 Temp 98.4 98.4 Pulse 50 Resp 18 B/P (MAP) 142/37 (72) Pulse Ox 94 O2 Delivery Room Air Intake and Output 12/08/18 12/08/18 12/09/18 14:59 22:59 06:59 Intake Total 220 ml 400 ml Balance 220 ml 400 ml IVIS SAWYER MD Dec 09, 2018 07:46
--- NOTE | 2018-12-09 08:09 | PDOC ---
Infectious Disease Note Subjective: Subjective pt says wants to go home Denies any f/c/n/v/d/abdo pain/sob denies any leg or stump pain d/w RN Vital Signs: Vital Signs Vital Signs Date Time Temp Pulse Resp B/P (MAP) Pulse Ox O2 Delivery O2 Flow Rate FiO2 12/09/18 07:00 97.9 51 17 152/47 (82) 94 Room Air 97.9 12/08/18 20:00 2.0 Physical Exam: PHYSICAL EXAM CONSTITUTIONAL: Alert, awake, comfortable female in no acute distress, lying comfortably in bed. HEENT: Oropharynx clear. Normal conjunctivae. NECK: Supple. LUNGS: Decreased breath sounds at bases. CARDIOVASCULAR: S1, S2. ABDOMEN: Soft, nondistended. Bowel sounds present. No rebound or guarding. EXTREMITIES: No edema. Right BKA with wound VAC in place, intact, blood blisters present over the medial aspect of the right thigh. I did not take the wound VAC down. Numerous bruises present over the upper and lower extremity.Awaiting wound vac change later today per RN DERMATOLOGIC: Warm, dry. No generalized skin rash. NEUROLOGIC: Normal speech. Sensation intact. PSYCHIATRIC: Normal mood. Medications: Inpatient Meds: Current Medications Medications (Trade) Dose Ordered Sig/Vijay Start Time Stop Time Status Last Admin Dose Admin Acetaminophen (Tylenol) 500 mg 1X PRN PRN 12/08/18 08:15 12/09/18 08:14 12/08/18 10:05 Albumin Human 200 ml @ 200 mls/hr 1X PRN PRN 12/08/18 08:15 12/08/18 14:14 DC Amoxicillin/ Clavulanate Potassium (Augmentin 500/ 125mg) 1 tab BID 12/07/18 10:30 12/07/18 10:30 DC Bacitracin 74916 unit/Sodium Chloride 500 ml @ 500 mls/hr 1X ONCE 12/09/18 06:00 12/09/18 06:59 DC Buspirone HCl (Buspar) 10 mg TIDWMEALS 12/07/18 08:00 12/08/18 17:35 Clonidine HCl (Catapres) 0.2 mg DAILY 12/07/18 09:00 12/08/18 14:00 Dextrose (Dextrose 50%-Water Syringe) 12.5 gm 1X ONCE 12/06/18 20:45 4/14/19 20:46 DC Diphenhydramine HCl (Benadryl) 25 mg 1X PRN PRN 12/08/18 08:15 12/09/18 08:14 Docusate Sodium (Colace) 100 mg DAILY 12/07/18 12:30 12/07/18 11:43 Famotidine (Pepcid) 20 mg DAILY 12/07/18 09:00 12/07/18 12:52 DC 12/07/18 09:40 Fentanyl Citrate (Fentanyl 2ml Vial) 50 mcg PRN Q5MIN PRN 12/09/18 07:00 12/10/18 06:59 Gabapentin (Neurontin) 100 mg DAILY 12/07/18 09:00 12/08/18 14:02 Hydralazine HCl (Apresoline Inj) 10 mg PRN Q4HRS PRN 12/06/18 23:15 12/08/18 02:06 Hydromorphone HCl (Dilaudid) 0.5 mg PRN Q10MIN PRN 12/09/18 07:00 12/10/18 06:59 Info (CONTRAST GIVEN -- Rx MONITORING) 1 each PRN DAILY PRN 12/06/18 16:45 12/08/18 16:44 DC Info (PHARMACY MONITORING -- do not chart) 1 each PRN DAILY PRN 12/08/18 08:15 Insulin Glargine (Lantus) 15 units QHS 12/07/18 21:00 12/08/18 22:08 Iohexol (Omnipaque 300 Mg/ml) 60 ml 1X ONCE 12/06/18 16:45 12/06/18 16:46 DC 12/06/18 16:45 Isosorbide Mononitrate (Imdur) 30 mg DAILY 12/07/18 09:00 12/08/18 14:01 Labetalol HCl (Normodyne Iv Push) 20 mg PRN Q2HR PRN 12/06/18 23:15 Lactobacillus Rhamnosus (Culturelle) 1 cap BID 12/08/18 21:00 12/08/18 21:19 Lactulose (Lactulose) 20 gm BID 12/07/18 21:00 12/08/18 21:19 Levothyroxine Sodium (Synthroid) 125 mcg DAILY06 12/07/18 06:00 12/09/18 04:59 Lidocaine HCl (Xylocaine-Mpf 1% 2ml Vial) 2 ml PRN 1X PRN 12/09/18 07:00 12/10/18 06:59 Lorazepam (Ativan) 0.5 mg PRN Q6HRS PRN 12/07/18 07:00 12/08/18 21:18 Meclizine HCl (Antivert) 25 mg TID 12/07/18 08:00 12/08/18 21:19 Metoprolol Succinate (Toprol Xl) 25 mg DAILY 12/07/18 09:00 12/08/18 13:59 Morphine Sulfate (Morphine Sulfate) 1 mg PRN Q10MIN PRN 12/09/18 07:00 12/10/18 06:59 Non-Formulary Medication (Cephalexin (Keflex)) 1 cap BID 12/07/18 09:00 12/07/18 09:00 DC Ondansetron HCl (Zofran Odt) 4 mg PRN Q6HRS PRN 12/07/18 07:15 Ondansetron HCl (Zofran) 4 mg PRN Q6HRS PRN 12/09/18 07:00 12/10/18 06:59 Pantoprazole Sodium (Protonix) 40 mg DAILYAC 12/08/18 07:30 12/08/18 14:02 Piperacillin Sod/ Tazobactam Sod 2.25 gm/Sodium Chloride 50 ml @ 100 mls/hr Q8HRS 12/08/18 13:00 12/09/18 05:00 Prochlorperazine Edisylate (Compazine) 5 mg PACU PRN PRN 12/09/18 07:00 12/10/18 06:59 Rifaximin (Xifaxan) 550 mg Q12HR 12/07/18 13:00 12/08/18 21:19 Ringer's Solution 1,000 ml @ 30 mls/hr Q24H 12/09/18 07:00 12/09/18 18:59 Sertraline HCl (Zoloft) 75 mg DAILY 12/07/18 09:00 12/08/18 14:02 Sevelamer Carbonate (Renvela) 800 mg TIDWMEALS 12/07/18 08:00 12/08/18 17:35 Sodium Chloride 1,000 ml @ 400 mls/hr Q2H30M PRN 12/08/18 08:14 12/08/18 20:13 DC Tizanidine HCl (Zanaflex) 4 mg PRN Q12HRS PRN 12/07/18 07:15 12/08/18 21:18 Labs: Lab Laboratory Tests Test 12/08/18 17:29 12/08/18 20:52 12/09/18 03:55 12/09/18 07:06 Glucose (Fingerstick) 166 mg/dL (70-99) 195 mg/dL (70-99) 164 mg/dL (70-99) White Blood Count 3.5 x10^3/uL (4.0-11.0) Red Blood Count 3.35 x10^6/uL (3.50-5.40) Hemoglobin 10.1 g/dL (12.0-15.5) Hematocrit 31.1 % (36.0-47.0) Mean Corpuscular Volume 93 fL (79-100) Mean Corpuscular Hemoglobin 30 pg (25-35) Mean Corpuscular Hemoglobin Concent 33 g/dL (31-37) Red Cell Distribution Width 19.0 % (11.5-14.5) Platelet Count 61 x10^3/uL (140-400) Prothrombin Time 20.0 SEC (11.7-14.0) Prothromb Time International Ratio 1.7 (0.8-1.1) Sodium Level 139 mmol/L (136-145) Potassium Level 3.5 mmol/L (3.5-5.1) Chloride Level 103 mmol/L (98-107) Carbon Dioxide Level 29 mmol/L (21-32) Anion Gap 7 (6-14) Blood Urea Nitrogen 17 mg/dL (7-20) Creatinine 3.6 mg/dL (0.6-1.0) Estimated GFR (Cockcroft-Gault) 12.4 Glucose Level 185 mg/dL (70-99) Calcium Level 8.1 mg/dL (8.5-10.1) Objective: Assessment: 1. History of fall at a rehab facility prior to admission. 2. Encephalopathy, improved 3. Chronic kidney disease, on hemodialysis. 4. Cirrhosis. 5. History of recent right [id number] on 10/21/[address] now with wound dehiscence Vascular has recommended AKA, pt and have refused for the same They are leaning towards hospice if no improvement in a couple of days 6. Ascites 7. Diabetes mellitus 2 with concern for hypoglycemia. 8. Thrombocytopenia chronic Plan: Plan of Care DC Zosyn on discharge Augmentin for 10 days Local wound care Wound care per wound team Pt will go on hospice if no improvement with conservative tx per team Discussed with nursing. MARTIN ALONZO MD Dec 09, 2018 08:09
[2018-12-09] MEDS: LACTULOSE 20 GM/30 ML SOLUTION. PO SCH ×2 (09:00→09:08)
[2018-12-09] MEDS: DOCUSATE SODIUM 100 MG CAPSULE. PO SCH (09:00)
[2018-12-09] MEDS: busPIRone 10 MG TABLET. PO SCH ×2 (09:06→12:53)
[2018-12-09] MEDS: LACTOBACILLUS RHAMNOSUS GG 1 CAPSULE. PO SCH (09:06)
[2018-12-09] MEDS: rifAXIMin 550 MG TABLET PO SCH (09:06)
[2018-12-09] MEDS: GABAPENTIN 100 MG CAPSULE. PO SCH (09:07)
[2018-12-09] MEDS: PANTOPRAZOLE 40 MG TABLET.DR. PO SCH (09:07)
[2018-12-09] MEDS: SEVELAMER CARBONATE 800 MG TABLET. PO SCH ×2 (09:07→12:53)
[2018-12-09] MEDS: ISOSORBIDE MONONITRATE ER 30 MG TAB.ER.24H PO SCH (09:07)
[2018-12-09] MEDS: cloNIDine HCL 0.2 MG TABLET PO SCH (09:07)
[2018-12-09] MEDS: MECLIZINE HCL 12.5 MG TABLET. PO SCH ×2 (09:07→15:00)
[2018-12-09] MEDS: METOPROLOL SUCC 24HR ER 25 MG TAB.ER.24H. PO SCH (09:08)
[2018-12-09] MEDS: SERTRALINE 50 MG TABLET. PO SCH (09:08)
--- NOTE | 2018-12-09 09:17 | PDOC2 ---
PALLIATIVE CARE Palliative Care Note Palliative Care Spoke with Kevin-. Family has decided they do not want surgery. Want to return to Shelter, continue dialysis and wound care. They are not interested in Hospice. They are "OK with her returning to the hospital if needed" Confirmed DNR/DNI. Alexandra NASCIMENTO will assist with discharge plans. VEDA SIEGEL Dec 09, 2018 09:17
[2018-12-09 09:56] LABS: PLT ESTIMATE DECREASED (ADEQUATE)
[2018-12-09 11:04] VITALS: BP 157/69
--- NOTE | 2018-12-09 12:13 | PDOC ---
Subjective: Subjective: Says eating and stooling okay, would like to go home, doesn't want surgery. Objective: Objective: D/w RN - family decided against surgery last night. Reviewed PC note - Family has decided they do not want surgery. Want to return to Prison, continue dialysis and wound care. They are not interested in Hospice. They are "OK with her returning to the hospital if needed" Chart indicates refusing lactulose.but taking Xifaxan w/ 4 stools charted. Vital Signs: Vital Signs Date Time Temp Pulse Resp B/P (MAP) Pulse Ox O2 Delivery O2 Flow Rate FiO2 12/09/18 11:04 98.4 54 16 157/69 (98) 95 Room Air 98.4 12/09/18 08:00 2.0 Labs: Laboratory Tests Test 12/08/18 17:29 12/08/18 20:52 12/09/18 03:55 12/09/18 07:06 Glucose (Fingerstick) 166 mg/dL 195 mg/dL 164 mg/dL White Blood Count 3.5 x10^3/uL Red Blood Count 3.35 x10^6/uL Hemoglobin 10.1 g/dL Hematocrit 31.1 % Mean Corpuscular Volume 93 fL Mean Corpuscular Hemoglobin 30 pg Mean Corpuscular Hemoglobin Concent 33 g/dL Red Cell Distribution Width 19.0 % Platelet Count 61 x10^3/uL Platelet Estimate Decreased Large Platelets Present Prothrombin Time 20.0 SEC Prothromb Time International Ratio 1.7 Sodium Level 139 mmol/L Potassium Level 3.5 mmol/L Chloride Level 103 mmol/L Carbon Dioxide Level 29 mmol/L Anion Gap 7 Blood Urea Nitrogen 17 mg/dL Creatinine 3.6 mg/dL Estimated GFR (Cockcroft-Gault) 12.4 Glucose Level 185 mg/dL Calcium Level 8.1 mg/dL Test 12/09/18 11:31 Glucose (Fingerstick) 168 mg/dL BLOOD CULTURE Preliminary NO GROWTH AFTER 2 DAYS PE: GEN: NAD - up to chair LUNGS: room air ABD: S/ND/NT NEURO/PSYCH: A & O 3 - more talkative today A/P: Cirrhosis w/ ascites, hepatic encephalopathy Anemia, thrombocytopenia, coagulopathy DM, ESRD on HD, recent RBKA w/ stump dehiscence - pt declines surgery -- Await discharge plans - would send on Xifaxan since compliance with lactulose is questionable. Paracentesis as needed. BRENDA DONOVAN Dec 09, 2018 12:13
--- NOTE | 2018-12-09 12:44 | NUR ---
SS following up with discharge planning. Family declining AKA and wanting to return to prison unit. Pt's family declining hospice. SS phoned and faxed clinical to [facility], ; fax [phone]. SS discussed with physician, Dr. Maher, and stated concerns with unsafe discharge plan as pt would most likely readmit without care of hospice services. Dr. Maher reported that he would discuss with family.
[2018-12-09] MEDS ORDERED: RIFA550T4 PO (13:06)
[2018-12-09] MEDS ORDERED: HYDR-2761 PO (13:06)
[2018-12-09] MEDS ORDERED: AMOX1TAB61 PO (13:06)
[2018-12-09] MEDS ORDERED: LORA0.5T96 PO (13:06)
[2018-12-09] MEDS ORDERED: LACT1CAP19 PO (13:06)
[2018-12-09] MEDS ORDERED: Pantoprazole PO (13:06)
--- NOTE | 2018-12-09 13:14 | PDOC3 ---
Discharge Summary Visit Information Date of Admission: Dec 06, 2018 Date of Discharge: Dec 09, 2018 Admitting Diagnosis: Right stump dehiscence Final Diagnosis Right BKA stump dehiscence Brief Hospital Course Allergies Allergies Coded Allergies Type Severity Reaction Last Updated Verified adhesive Allergy Intermediate Rash 10/15/18 Yes Vital Signs Vital Signs Date Time Temp Pulse Resp B/P (MAP) Pulse Ox O2 Delivery O2 Flow Rate FiO2 12/09/18 11:04 98.4 54 16 157/69 (98) 95 Room Air 98.4 12/09/18 08:00 2.0 Lab Results Laboratory Tests Test 12/07/18 13:26 12/07/18 13:55 12/07/18 16:33 12/07/18 21:55 Glucose (Fingerstick) 147 mg/dL (70-99) 130 mg/dL (70-99) 203 mg/dL (70-99) Body Fluid Source Ascites Body Fluid Color Yellow Body Fluid Clarity Clear Body Fluid Nucleated Cells 85 /cmm (Not Established) Body Fluid Mononuclear WBCs (%) 93 % Body Fluid Polymorphonuclear Cells 2 % Body Fluid Total RBCs Counted 300 /cmm (Not Established) Body Fluid Other Cells (%) 2 % Body Fluid Glucose 147 mg/dL (.) Body Fluid Total Protein 1.9 g/dL (.) Body Fluid Lactate Dehydrogenase 57 IU/L (.) Body Fluid Amylase 18 U/L (.) Test 12/08/18 03:50 12/08/18 07:54 12/08/18 17:29 12/08/18 20:52 White Blood Count 3.6 x10^3/uL (4.0-11.0) Red Blood Count 3.07 x10^6/uL (3.50-5.40) Hemoglobin 9.3 g/dL (12.0-15.5) Hematocrit 28.7 % (36.0-47.0) Mean Corpuscular Volume 94 fL (79-100) Mean Corpuscular Hemoglobin 30 pg (25-35) Mean Corpuscular Hemoglobin Concent 32 g/dL (31-37) Red Cell Distribution Width 19.6 % (11.5-14.5) Platelet Count 60 x10^3/uL (140-400) Neutrophils (%) (Auto) 63 % (31-73) Lymphocytes (%) (Auto) 18 % (24-48) Monocytes (%) (Auto) 12 % (0-9) Eosinophils (%) (Auto) 5 % (0-3) Basophils (%) (Auto) 2 % (0-3) Neutrophils # (Auto) 2.3 x10^3uL (1.8-7.7) Lymphocytes # (Auto) 0.7 x10^3/uL (1.0-4.8) Monocytes # (Auto) 0.4 x10^3/uL (0.0-1.1) Eosinophils # (Auto) 0.2 x10^3/uL (0.0-0.7) Basophils # (Auto) 0.1 x10^3/uL (0.0-0.2) Sodium Level 140 mmol/L (136-145) Potassium Level 4.0 mmol/L (3.5-5.1) Chloride Level 105 mmol/L (98-107) Carbon Dioxide Level 25 mmol/L (21-32) Anion Gap 10 (6-14) Blood Urea Nitrogen 30 mg/dL (7-20) Creatinine 5.0 mg/dL (0.6-1.0) Estimated GFR (Cockcroft-Gault) 8.5 Glucose Level 270 mg/dL (70-99) Calcium Level 8.3 mg/dL (8.5-10.1) Glucose (Fingerstick) 219 mg/dL (70-99) 166 mg/dL (70-99) 195 mg/dL (70-99) Test 12/09/18 03:55 12/09/18 07:06 12/09/18 11:31 White Blood Count 3.5 x10^3/uL (4.0-11.0) Red Blood Count 3.35 x10^6/uL (3.50-5.40) Hemoglobin 10.1 g/dL (12.0-15.5) Hematocrit 31.1 % (36.0-47.0) Mean Corpuscular Volume 93 fL (79-100) Mean Corpuscular Hemoglobin 30 pg (25-35) Mean Corpuscular Hemoglobin Concent 33 g/dL (31-37) Red Cell Distribution Width 19.0 % (11.5-14.5) Platelet Count 61 x10^3/uL (140-400) Platelet Estimate Decreased (ADEQUATE) Large Platelets Present Prothrombin Time 20.0 SEC (11.7-14.0) Prothromb Time International Ratio 1.7 (0.8-1.1) Sodium Level 139 mmol/L (136-145) Potassium Level 3.5 mmol/L (3.5-5.1) Chloride Level 103 mmol/L (98-107) Carbon Dioxide Level 29 mmol/L (21-32) Anion Gap 7 (6-14) Blood Urea Nitrogen 17 mg/dL (7-20) Creatinine 3.6 mg/dL (0.6-1.0) Estimated GFR (Cockcroft-Gault) 12.4 Glucose Level 185 mg/dL (70-99) Calcium Level 8.1 mg/dL (8.5-10.1) Glucose (Fingerstick) 164 mg/dL (70-99) 168 mg/dL (70-99) Laboratory Tests Test 12/08/18 17:29 12/08/18 20:52 12/09/18 03:55 12/09/18 07:06 Glucose (Fingerstick) 166 mg/dL (70-99) 195 mg/dL (70-99) 164 mg/dL (70-99) White Blood Count 3.5 x10^3/uL (4.0-11.0) Red Blood Count 3.35 x10^6/uL (3.50-5.40) Hemoglobin 10.1 g/dL (12.0-15.5) Hematocrit 31.1 % (36.0-47.0) Mean Corpuscular Volume 93 fL (79-100) Mean Corpuscular Hemoglobin 30 pg (25-35) Mean Corpuscular Hemoglobin Concent 33 g/dL (31-37) Red Cell Distribution Width 19.0 % (11.5-14.5) Platelet Count 61 x10^3/uL (140-400) Platelet Estimate Decreased (ADEQUATE) Large Platelets Present Prothrombin Time 20.0 SEC (11.7-14.0) Prothromb Time International Ratio 1.7 (0.8-1.1) Sodium Level 139 mmol/L (136-145) Potassium Level 3.5 mmol/L (3.5-5.1) Chloride Level 103 mmol/L (98-107) Carbon Dioxide Level 29 mmol/L (21-32) Anion Gap 7 (6-14) Blood Urea Nitrogen 17 mg/dL (7-20) Creatinine 3.6 mg/dL (0.6-1.0) Estimated GFR (Cockcroft-Gault) 12.4 Glucose Level 185 mg/dL (70-99) Calcium Level 8.1 mg/dL (8.5-10.1) Test 12/09/18 11:31 Glucose (Fingerstick) 168 mg/dL (70-99) Brief Hospital Course Ms Douglass is a 73yo F w/ PMHx 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 The patient apparently had a history of fall and hit the left side of the posterior head and left side back on the floor. The patient had bruising in these areas and the left knee, also had bruising of the right upper extremity where the patient has dialysis. The patient's blood sugar on arrival was 84. Right BKA with wound VAC site had bloody appearance of the stump. The patient undergoes dialysis through right upper extremity dialysis fistula on Friday, , and Friday. The patient has completed her p.o. antibiotics on 11/27 as per plan upon discharge from [facility]. Was seen by ID , vascular surgery, recommended for AKA, patient and refused for this to occur and wish for palliative care and antibiotics by mouth with the knowledge that the dehisced necrotic wound will continue to harbor infectious organisms. Greater than 30 minutes spent on discharge ESRD- On HD TTS No indication for HD today Hx of Cirrhosis - Increased Ascites s/p Paracentesis 4.5 L of serous ascites removed. on lactulose (goal 3-4 stools daily) and Xifaxan as per GI Anemia- As OP on WANDA and Fe as per protocol Hx of hepatic encephalopathy -portal hypertension/varices on imaging -last doppler 08/2018 Right BKA stump skin edges are necrotic, no clear purulent drainage no evidence of acute septic infection Right above knee amputation has been recommended, Pt and family refused Palliative consulted as requested by Pt, Pt and family wants to continue care History of fall at a rehab facility prior to admission: PT/OT Acute Encephalopathy: CT head negative, not on sedating meds. no fever or leukocytosis. improved, ammonia level okay Dm2: continue home insulin therapy ESRD on HD: nephro consulted recent right BKA and stump dehiscence: sx and wound care consulted. likely needs revision. family to help make decision. ID consulted and recommends augmentin on d/c Cirrhosis w/ ascites s/p paracentesis. Continue lactulose (goal 3-4 stools daily) and Xifaxan. Pancytopenia dispo: to SNF once medically stable Discharge Information Condition at Discharge: Improved Follow Up: Weeks (2) Disposition/Orders: D/C to Another Facility ([facility] with palliative care) Scheduled Amoxicillin/Potassium Clav (Augmentin 875-125 Tablet) 1 Each Tablet, 1 TAB PO BID for Cellulitis for 10 Days, #20 Prescribed by: IVIS SAWYER MD on 12/09/18 1306 Aspirin (Aspirin Ec) 325 Mg Tablet.dr, 325 MG PO DAILYWBKFT for 30 Days, #30 Prescribed by: LETICIA BYRNES MD on 03/18/17 0910 Last Action: Reviewed on 12/06/182203 by JOSH GARCIA Buspirone Hcl (Buspirone Hcl) 10 Mg Tablet, 10 MG PO TIDWMEALS for cirrhosis, ( Reported) Entered as Reported by: JOSH GARCIA on 12/06/182203 Last Taken: Unknown Dose on 12/06/18 1700 Last Action: Continued on 656 by ROB GAMEZ Calcium Acetate (Calcium Acetate) 667 Mg Tablet, 667 MG PO TIDWMEALS for SUPPLEMENT , (Reported) Entered as Reported by: LESA MEDINA on 10/15/182104 Last Action: HELD on 12/07/18656 by ROB GAMEZ Clonidine Hcl (Clonidine Hcl) 0.2 Mg Tablet, 0.2 MG PO DAILY, (Reported) Entered as Reported by: ERNIE CHENG on 03/15/17 0149 Last Action: Continued on 12/07/18656 by ROB GAMEZ Diclofenac Sodium (Voltaren) 100 Gm Gel..gram., 1 GM TP BID, #100 Ref 2 ( Reported) Entered as Reported by: Estefany Martinez on 8/7/17 0853 Last Action: Reviewed on 12/06/182203 by JOSH GARCIA Gabapentin (Gabapentin ) 100 Mg Capsule, 100 MG PO DAILY, (Reported) Entered as Reported by: ERNIE CHENG on 03/15/17148 Last Action: Continued on 12/07/18656 by ROB GAMEZ Insulin Glargine,Hum.rec.anlog (Lantus Solostar) 100 Unit/1 Ml Insuln.pen, 15 UNITS SQ DAILY for glucose for 28 Days Prescribed by: FEROZ KELLY MD on 09/11/18 1334 Last Action: Continued on 12/07/18656 by ROB GAMEZ Isosorbide Dinitrate (Isosorbide Dinitrate) 30 Mg Tablet, 1 TAB PO DAILY, ( Reported) Entered as Reported by: NEAL GAINES on 09/22/1335 Last Action: Converted on 12/07/18656 by ROB GAMEZ Lactobacillus Rhamnosus Gg (Culturelle) 1 Each Cap.sprink, 1 CAP PO BID for diarrhea for 10 Days, #20 Prescribed by: IVIS SAWYER MD on 12/09/18 1306 Levothyroxine Sodium (Levothyroxine Sodium) 175 Mcg Tablet, 125 MCG PO DAILYAC for THYROID SUPPLEMENT, #30 Ref 0 (Reported) Entered as Reported by: ERNIE CHENG on 03/15/17147 Last Action: Continued on 12/07/18656 by ROB GAMEZ Meclizine Hcl (Meclizine Hcl) 25 Mg Tablet, 1 TAB PO TID, #90 (Reported) Entered as Reported by: Estefany Martinez on 03/31/17852 Last Action: Converted on 12/07/18656 by ROB GAMEZ Melatonin (Melatonin) 3 Mg Tablet, 6 MG PO QHS for insomnia, (Reported) Entered as Reported by: JOHS GARCIA on 12/06/182203 Last Taken: Unknown Dose on Unknown Date & Time Last Action: HELD on 12/07 by ROB GAMEZ Metoprolol Succinate (Metoprolol Succinate ( Xl )) 25 Mg Tab.er.24h, 25 MG PO DAILY for FOR HYPERTENSION, #30 Ref 0 (Reported) Entered as Reported by: ORVILLE SHORT on 12/05/162125 Last Action: Continued on 12/07/18656 by ROB GAMEZ Multivitamin, Min Cmb#25/Fa/D3 (Dialyvite [place] D Tablet) 1 Each Tablet, 1 EACH PO DAILY, (Reported) Entered as Reported by: ERNIE CHENG on 03/15/17147 Last Action: HELD on 12/07/18656 by ROB GAMEZ Ondansetron Hcl (Zofran) 4 Mg Tablet, 1 TAB PO Q6HRS, #20 Prescribed by: Akanksha Lee APRN on 10/15/181737 Last Action: Converted on 12/07/18656 by ROB GAMEZ Rifaximin (Xifaxan) 550 Mg Tablet, 550 MG PO Q12HR for cirrhosis for 30 Days, # 60 Prescribed by: IVIS SAWYER MD on 12/09/18 1306 Sertraline Hcl (Zoloft) 50 Mg Tablet, 75 MG PO DAILY for ANTI-DEPRESSANT, Ref 0 (Reported) Entered as Reported by: ERNIE CHENG on 03/15/17148 Last Action: Continued on 12/07/18656 by ROB GAMEZ Sevelamer Carbonate (Renvela) 800 Mg Tablet, 1 TAB PO TIDWMEALS, #270 Ref 3 ( Reported) Entered as Reported by: ERNIE CHENG on 03/15/17148 Last Action: Continued on 12/07/18656 by ROB GAMEZ [Pantoprazole] 40 MG TABLET.DR, 40 MG PO DAILYAC for GERD for 30 Days, #30 Ref 2 Prescribed by: IVIS SAWYER MD on 12/09/18 1306 Scheduled PRN Hydrocodone Bit/Acetaminophen (Hydrocodone-Apap 5-325 ) 1 Each Tablet, 2 TAB PO PRN Q6HRS PRN for PAIN for 6 Days, #24 Ref 0 Prescribed by: IVIS SAWYER MD on 12/09/18 1306 Lactulose (Lactulose) 20 Gm/30 Ml Solution, 10 GM PO PRN TID PRN for CONSTIPATION for 10 Days Prescribed by: HANNA VILLEGAS on 06/20/18 0986 Last Action: Continued on 12/07/18656 by ROB GAMEZ Lorazepam (Ativan) 0.5 Mg Tablet, 0.5 MG PO PRN Q6HRS PRN for ANXIETY / AGITATION for 6 Days, #18 Prescribed by: IVIS SAWYER MD on 12/09/18 1306 Tizanidine Hcl (Tizanidine Hcl) 2 Mg Capsule, 2 MG PO BID PRN for MUSCLE SPASMS, (Reported) Entered as Reported by: Estefany Martinez on 03/31/17 0853 Last Action: Converted on 12/07/18656 by ROB GAMEZ Discontinued Medications Calcium Acetate (Calcium Acetate) 667 Mg Tablet, 667 MG PO BID for SUPPLEMENT , (Reported) Entered as Reported by: LESA MEDINA on 10/15/182106 Last Action: Discontinued on 12/06/182203 by JOSH GARCIA Cephalexin (Keflex) 500 Mg Capsule, 1 CAP PO BID for wound care, #14 (Reported) Entered as Reported by: JOSH GARCIA on 12/06/182203 Last Action: Converted on 12/07/18656 by ROB GAMEZ Famotidine (Famotidine) 20 Mg Tablet, 20 MG PO DAILY, (Reported) Entered as Reported by: MYLES LEE on 12/29/15 0959 Last Action: Continued on 12/07/18656 by IVIS RORDIGUEZ MD Dec 09, 2018 13:14
--- NOTE | 2018-12-09 13:14 | SNU/HH DC ---
DISCHARGE ORDERS DISCHARGE INFORMATION: DISCHARGE DATE: Dec 09, 2018 CONDITION ON DISCHARGE: Stable CODE STATUS: Code Status: DNR/DNI LONG-TERM: SNF STAY <30 DAYS: Yes (PALLIATIVE CARE [facility] or [place]) POST DISCHARGE ORDERS: ACTIVITY ORDERS: Activity as tolerated WEIGHT BEARING STATUS: Other, see below BATHING ORDERS: No Tub Bath until see DIET AFTER DISCHARGE: Renal WOUND/INCISION CARE: Keep wound elevated, Change dressing, Reinforce dressing PRN CHECKS AFTER DISCHARGE: CHECKS AFTER DISCHARGE: Check blood press - daily, Check blood sugar, ac/hs FOLLOW-UP: ADDITIONAL FOLLOW-UP: PALLIATIVE CARE - or [place] TREATMENT/EQUIPMENT ORDERS: ADAPTIVE EQUIPMENT NEEDED: None RESPIRATORY EQUIPMENT NEEDED: Oxygen Physical Therapy For: Evalulation/Treatment Occupational Therapy For: Evaluation/Treatment Speech Language Pathology For: Evaluation/Treatment DISCHARGE MEDICATIONS: Home Meds Active Scripts Amoxicillin/Potassium Clav (AUGMENTIN 875-125 TABLET) 1 Each Tablet, 1 TAB PO BID for Cellulitis for 10 Days, #20 TAB Prov:IVIS SAWYER MD 12/09/18 Lactobacillus Rhamnosus Gg (CULTURELLE) 1 Each Cap.sprink, 1 CAP PO BID for diarrhea for 10 Days, #20 CAP Prov:IVIS SAWYER MD 12/09/18 [Pantoprazole] 40 MG TABLET.DR Stone Conflict Check, 40 MG PO DAILYAC for GERD for 30 Days, #30 2 Refills Prov:IVIS SAWYER MD 12/09/18 Rifaximin (XIFAXAN) 550 Mg Tablet, 550 MG PO Q12HR for cirrhosis for 30 Days, # 60 TAB Prov:IVIS SAWYER MD 12/09/18 Lorazepam (ATIVAN) 0.5 Mg Tablet, 0.5 MG PO PRN Q6HRS PRN for ANXIETY / AGITATION for 6 Days, #18 TAB Prov:IVIS SAWYER MD 12/09/18 Hydrocodone Bit/Acetaminophen (HYDROCODONE-APAP 5-325 ) 1 Each Tablet, 2 TAB PO PRN Q6HRS PRN for PAIN for 6 Days, #24 TAB 0 Refills Prov:IVIS SAWYER MD 12/09/18 Ondansetron Hcl (ZOFRAN) 4 Mg Tablet, 1 TAB PO Q6HRS, #20 TAB Prov:MUTUNGA,VANIA TAILING HAND 10/15/18 Insulin Glargine,Hum.rec.anlog (LANTUS SOLOSTAR) 100 Unit/1 Ml Insuln.pen, 15 UNITS SQ DAILY for glucose for 28 Days, EACH Prov:FEROZ KELLY MD 09/11/18 Lactulose (LACTULOSE) 20 Gm/30 Ml Solution, 10 GM PO PRN TID PRN for CONSTIPATION for 10 Days, MISC Prov:HANNA VILLEGAS MD 06/20/18 Aspirin (ASPIRIN EC) 325 Mg Tablet.dr, 325 MG PO DAILYWBKFT for 30 Days, #30 TAB.SR Prov:LETICIA BYRNES MD 03/18/17 Reported Medications Melatonin (MELATONIN) 3 Mg Tablet, 6 MG PO QHS for insomnia, TAB 12/06/18 Buspirone Hcl (BUSPIRONE HCL) 10 Mg Tablet, 10 MG PO TIDWMEALS for cirrhosis, TAB 12/06/18 Calcium Acetate (CALCIUM ACETATE) 667 Mg Tablet, 667 MG PO TIDWMEALS for SUPPLEMENT , CAP 10/15/18 Tizanidine Hcl (TIZANIDINE HCL) 2 Mg Capsule, 2 MG PO BID PRN for MUSCLE SPASMS , CAP 03/31/17 Meclizine Hcl (MECLIZINE HCL) 25 Mg Tablet, 1 TAB PO TID, #90 TAB 03/31/17 Diclofenac Sodium (VOLTAREN) 100 Gm Gel..gram., 1 GM TP BID, #100 GM 2 Refills 03/31/17 Clonidine Hcl (CLONIDINE HCL) 0.2 Mg Tablet, 0.2 MG PO DAILY, TAB 03/15/17 Gabapentin (GABAPENTIN ) 100 Mg Capsule, 100 MG PO DAILY, CAP 03/15/17 Sertraline Hcl (ZOLOFT) 50 Mg Tablet, 75 MG PO DAILY for ANTI-DEPRESSANT, TAB 0 Refills 03/15/17 Sevelamer Carbonate (RENVELA) 800 Mg Tablet, 1 TAB PO TIDWMEALS, #270 TAB 3 Refills 03/15/17 Levothyroxine Sodium (LEVOTHYROXINE SODIUM) 175 Mcg Tablet, 125 MCG PO DAILYAC for THYROID SUPPLEMENT, #30 TAB 0 Refills 03/15/17 Multivitamin, Min Cmb#25/Fa/D3 (DIALYVITE SUPREME D TABLET) 1 Each Tablet, 1 EACH PO DAILY, TAB 03/15/17 Metoprolol Succinate (METOPROLOL SUCCINATE ( XL )) 25 Mg Tab.er.24h, 25 MG PO DAILY for FOR HYPERTENSION, #30 TAB 0 Refills 12/05/16 Isosorbide Dinitrate (ISOSORBIDE DINITRATE) 30 Mg Tablet, 1 TAB PO DAILY 09/22/13 Discontinued Reported Medications Cephalexin (KEFLEX) 500 Mg Capsule, 1 CAP PO BID for wound care, #14 CAP 12/06/18 Famotidine (FAMOTIDINE) 20 Mg Tablet, 20 MG PO DAILY, TAB 12/29/15 Calcium Acetate (CALCIUM ACETATE) 667 Mg Tablet, 667 MG PO BID for SUPPLEMENT , CAP 10/15/18 IVIS SAWYER MD Dec 09, 2018 13:14
--- NOTE | 2018-12-09 13:49 | NUR ---
SS following up with discharge planning. Discharge orders received for return to [facility] with follow up with [facility]. SS phoned and faxed discharge orders to [facility], ; fax [phone]. SS phoned and faxed referral to [facility], ; fax [phone]. Pt will discharge today and return to [facility] at 1500 via [facility] ambulance, . Pt, pt's family, and pt's RN notified.
--- NOTE | 2018-12-09 14:16 | PDOC ---
Provider Note Provider Note We were notified this am that patient was requesting to cancel surgery that was scheduled today, we spoke with RN. After discussing with , pt would like to continue with conservative management and would not like to proceed with surgery at this time. We will sign off at this point, please notify us if needed. Thank you. [facility] SANDRA ISRAEL Dec 09, 2018 14:16
--- NOTE | 2018-12-09 15:40 | PDOC ---
SUBJECTIVE ROS Sitting up in chair, ready to go home, states feeling much better OBJECTIVE Vital Signs Vital Signs Date Time Temp Pulse Resp B/P (MAP) Pulse Ox O2 Delivery O2 Flow Rate FiO2 12/09/18 15:07 Room Air 12/09/18 11:04 98.4 54 16 157/69 (98) 95 98.4 12/09/18 08:00 2.0 I & 0 Intake and Output 12/09/18 06:59 Intake Total 620 ml Balance 620 ml Intake Oral 620 ml # Voids 1 # Bowel Movements 1 PHYSICAL EXAM Physical Exam GEN: NAD HEEN: Om moist , O2 by NC NECK: Supple CVS: RRR, Murmur + RESP: CTA , No Acc. Muscle Use GI: BS + ve, : [No CVA tenderness, No Suprapubic Tenderness Ext- Rt BKA Neuro- Grossly normal DIAGNOSIS/ASSESSMENT Assessment & Plan ESRD- On HD TTS No indication for HD today Adalid go back to OP Unit Tomorrow if dced home Hx of Cirrhosis - Increased Ascites s/p Paracentesis 4.5 L of serous ascites removed on lactulose (goal 3-4 stools daily) and Xifaxan as per GI Anemia- As OP on WANDA and Fe as per protocol Hx of hepatic encephalopathy -portal hypertension/varices on imaging -last doppler 08/2018 ACD, thrombocytopenia, coagulopathy Right BKA stump skin edges are necrotic, no clear purulent drainage no evidence of acute septic infection Right above knee amputation has been recommended, Pt and family refused Palliative consulted as requested by Pt, Pt and family wants to continue care COMMENT/RELEVANT DATA Meds Current Medications Medications (Trade) Dose Ordered Sig/Vijay Start Time Stop Time Status Last Admin Dose Admin Acetaminophen (Tylenol) 500 mg 1X PRN PRN 12/08/18 08:15 12/09/18 08:14 DC 12/08/18 10:05 500 MG Albumin Human 200 ml @ 200 mls/hr 1X PRN PRN 12/08/18 08:15 12/08/18 14:14 DC Amoxicillin/ Clavulanate Potassium (Augmentin 500/ 125mg) 1 tab BID 12/07/18 10:30 12/07/18 10:30 DC Bacitracin 87176 unit/Sodium Chloride 500 ml @ 500 mls/hr 1X ONCE 12/09/18 06:00 12/09/18 06:59 DC Buspirone HCl (Buspar) 10 mg TIDWMEALS 12/07/18 08:00 12/09/18 12:53 10 MG Clonidine HCl (Catapres) 0.2 mg DAILY 12/07/18 09:00 12/09/18 09:07 0.2 MG Dextrose (Dextrose 50%-Water Syringe) 12.5 gm 1X ONCE 12/06/18 20:45 12/06/18 20:46 DC Diphenhydramine HCl (Benadryl) 25 mg 1X PRN PRN 12/08/18 08:15 12/09/18 08:14 DC Docusate Sodium (Colace) 100 mg DAILY 12/07/18 12:30 12/07/18 11:43 100 MG Famotidine (Pepcid) 20 mg DAILY 12/07/18 09:00 12/07/18 12:52 DC 12/07/18 09:40 20 MG Fentanyl Citrate (Fentanyl 2ml Vial) 50 mcg PRN Q5MIN PRN 12/09/18 07:00 12/10/18 06:59 Gabapentin (Neurontin) 100 mg DAILY 12/07/18 09:00 12/09/18 09:07 100 MG Hydralazine HCl (Apresoline Inj) 10 mg PRN Q4HRS PRN 12/06/18 23:15 12/08/18 02:06 10 MG Hydromorphone HCl (Dilaudid) 0.5 mg PRN Q10MIN PRN 12/09/18 07:00 12/10/18 06:59 Info (CONTRAST GIVEN -- Rx MONITORING) 1 each PRN DAILY PRN 12/06/18 16:45 12/08/18 16:44 DC Info (PHARMACY MONITORING -- do not chart) 1 each PRN DAILY PRN 12/08/18 08:15 Insulin Glargine (Lantus) 15 units QHS 12/07/18 21:00 12/08/18 22:08 15 UNITS Iohexol (Omnipaque 300 Mg/ml) 60 ml 1X ONCE 12/06/18 16:45 12/06/18 16:46 DC 12/06/18 16:45 60 ML Isosorbide Mononitrate (Imdur) 30 mg DAILY 12/07/18 09:00 12/09/18 09:07 30 MG Labetalol HCl (Normodyne Iv Push) 20 mg PRN Q2HR PRN 12/06/18 23:15 Lactobacillus Rhamnosus (Culturelle) 1 cap BID 12/08/18 21:00 12/09/18 09:06 1 CAP Lactulose (Lactulose) 20 gm BID 12/07/18 21:00 12/08/18 21:19 20 GM Levothyroxine Sodium (Synthroid) 125 mcg DAILY06 12/07/18 06:00 12/09/18 04:59 125 MCG Lidocaine HCl (Xylocaine-Mpf 1% 2ml Vial) 2 ml PRN 1X PRN 12/09/18 07:00 12/10/18 06:59 Lorazepam (Ativan) 0.5 mg PRN Q6HRS PRN 12/07/18 07:00 12/08/18 21:18 0.5 MG Meclizine HCl (Antivert) 25 mg TID 12/07/18 08:00 12/09/18 15:00 25 MG Metoprolol Succinate (Toprol Xl) 25 mg DAILY 12/07/18 09:00 12/09/18 09:08 25 MG Morphine Sulfate (Morphine Sulfate) 1 mg PRN Q10MIN PRN 12/09/18 07:00 12/10/18 06:59 Non-Formulary Medication (Cephalexin (Keflex)) 1 cap BID 12/07/18 09:00 12/07/18 09:00 DC Ondansetron HCl (Zofran Odt) 4 mg PRN Q6HRS PRN 12/07/18 07:15 Ondansetron HCl (Zofran) 4 mg PRN Q6HRS PRN 12/09/18 07:00 12/10/18 06:59 Pantoprazole Sodium (Protonix) 40 mg DAILYAC 12/08/18 07:30 12/09/18 09:07 40 MG Piperacillin Sod/ Tazobactam Sod 2.25 gm/Sodium Chloride 50 ml @ 100 mls/hr Q8HRS 12/08/18 13:00 12/09/18 05:00 100 MLS/HR Prochlorperazine Edisylate (Compazine) 5 mg PACU PRN PRN 12/09/18 07:00 12/10/18 06:59 Rifaximin (Xifaxan) 550 mg Q12HR 12/07/18 13:00 12/09/18 09:06 550 MG Ringer's Solution 1,000 ml @ 30 mls/hr Q24H 12/09/18 07:00 12/09/18 18:59 Sertraline HCl (Zoloft) 75 mg DAILY 12/07/18 09:00 12/09/18 09:08 75 MG Sevelamer Carbonate (Renvela) 800 mg TIDWMEALS 12/07/18 08:00 12/09/18 12:53 800 MG Sodium Chloride 1,000 ml @ 400 mls/hr Q2H30M PRN 12/08/18 08:14 12/08/18 20:13 DC Tizanidine HCl (Zanaflex) 4 mg PRN Q12HRS PRN 12/07/18 07:15 12/08/18 21:18 4 MG Lab Laboratory Tests Test 12/08/18 17:29 12/08/18 20:52 12/09/18 03:55 12/09/18 07:06 Glucose (Fingerstick) 166 mg/dL (70-99) 195 mg/dL (70-99) 164 mg/dL (70-99) White Blood Count 3.5 x10^3/uL (4.0-11.0) Red Blood Count 3.35 x10^6/uL (3.50-5.40) Hemoglobin 10.1 g/dL (12.0-15.5) Hematocrit 31.1 % (36.0-47.0) Mean Corpuscular Volume 93 fL (79-100) Mean Corpuscular Hemoglobin 30 pg (25-35) Mean Corpuscular Hemoglobin Concent 33 g/dL (31-37) Red Cell Distribution Width 19.0 % (11.5-14.5) Platelet Count 61 x10^3/uL (140-400) Platelet Estimate Decreased (ADEQUATE) Large Platelets Present Prothrombin Time 20.0 SEC (11.7-14.0) Prothromb Time International Ratio 1.7 (0.8-1.1) Sodium Level 139 mmol/L (136-145) Potassium Level 3.5 mmol/L (3.5-5.1) Chloride Level 103 mmol/L (98-107) Carbon Dioxide Level 29 mmol/L (21-32) Anion Gap 7 (6-14) Blood Urea Nitrogen 17 mg/dL (7-20) Creatinine 3.6 mg/dL (0.6-1.0) Estimated GFR (Cockcroft-Gault) 12.4 Glucose Level 185 mg/dL (70-99) Calcium Level 8.1 mg/dL (8.5-10.1) Test 12/09/18 11:31 Glucose (Fingerstick) 168 mg/dL (70-99) Results All relevant outside records, renal labs, imaging studies, telemetry/EKG's were reviewed. ALE YEH MD Dec 09, 2018 15:40
--- NOTE | 2018-12-09 17:08 | NUR ---
Discharge Note: BRIJESH DIAZ [facility] Discharge instructions and discharge home medications reviewed with BREANNE Valladares at [facility] and a copy given to ambulance service at discharge. All questions have been answered and understanding verbalized.
== END 2018-12-09 17:00 | disposition home or self-care (01) | DRG 564 ==
LOC: ER 16:11 → 2 SOUTH 19:40
PROVIDERS: ADMIT Internal Medicine; ATTEND Internal Medicine
PROC: 0W9G3ZZ Drainage of Peritoneal Cavity, Percutaneous Approach (ICD-10-PCS; principal; 2018-12-07)
PROC: 5A1D70Z Performance of Urinary Filtration, Intermittent, Less than 6 Hours Per Day (ICD-10-PCS; 2018-12-08)
DX: T87.81 Dehiscence of amputation stump (principal); N18.6 End stage renal disease; G93.40 Encephalopathy, unspecified; I13.2 Hypertensive heart and chronic kidney disease with heart failure and with stage 5 chronic kidney disease, or end stage renal disease; J98.11 Atelectasis; D61.818 Other pancytopenia; D68.9 Coagulation defect, unspecified; R18.8 Other ascites; K76.6 Portal hypertension; F41.9 Anxiety disorder, unspecified; F32.9 Major depressive disorder, single episode, unspecified; E11.42 Type 2 diabetes mellitus with diabetic polyneuropathy; E03.9 Hypothyroidism, unspecified; K75.9 Inflammatory liver disease, unspecified; M65.30 Trigger finger, unspecified finger; H26.9 Unspecified cataract; G56.03 Carpal tunnel syndrome, bilateral upper limbs; I50.9 Heart failure, unspecified; E78.5 Hyperlipidemia, unspecified; G62.9 Polyneuropathy, unspecified; K21.9 Gastro-esophageal reflux disease without esophagitis; M19.90 Unspecified osteoarthritis, unspecified site; K80.20 Calculus of gallbladder without cholecystitis without obstruction; Z51.5 Encounter for palliative care; G47.33 Obstructive sleep apnea (adult) (pediatric); K74.60 Unspecified cirrhosis of liver; Y83.5 Amputation of limb(s) as the cause of abnormal reaction of the patient, or of later complication, without mention of misadventure at the time of the procedure; K72.90 Hepatic failure, unspecified without coma; E11.22 Type 2 diabetes mellitus with diabetic chronic kidney disease; J44.9 Chronic obstructive pulmonary disease, unspecified; Z86.73 Personal history of transient ischemic attack (TIA), and cerebral infarction without residual deficits; Z90.710 Acquired absence of both cervix and uterus; Z89.511 Acquired absence of right leg below knee; Z99.2 Dependence on renal dialysis; Z83.3 Family history of diabetes mellitus; Z88.8 Allergy status to other drugs, medicaments and biological substances; Z91.041 Radiographic dye allergy status; Z79.4 Long term (current) use of insulin; Z79.82 Long term (current) use of aspirin
CPT/HCPCS: 36415; 36600; 49083; 70450; 71045; 72125; 73030; 73060; 73562; 74177; 80048; 80053; 82140; 82150; 82607; 82805; 82945; 82962; 83605; 83615; 83735; 84157; 84484; 85025; 85027; 85610; 85730; 86850; 86900; 86901; 87040; 87071; 87075; 87641; 88112; 88305; 89050; 93005; 96361; 96374; J0360; J1815; J2543; J7040; J7042; J8597; P9046; Q9967; 97530; 97535; 99285-25

== ENCOUNTER 2018-12-26 12:44 | Inpatient (IN) | payer MEDICARE, OTHER ==
[~2018-12-26] VITALS: Ht 152.4 cm; Wt 82.6 kg
[~2018-12-26 12:44] MED LIST changes: +AMOX1TAB61 PO; +BUSP10TA PO; +CEPH-264 PO; +LORA0.5T96 PO; +MELA3TAB2 PO; +Pantoprazole PO
[2018-12-26 13:38] LABS: BASO # 0.1 x10^3/uL (0.0-0.2); BASO % 1 % (0-3); EOS # 0.1 x10^3/uL (0.0-0.7); EOS % 4 % (0-3); HEMATOCRIT 29.4 % (36.0-47.0); HEMOGLOBIN 9.6 g/dL (12.0-15.5); LYMPH # 0.6 x10^3/uL (1.0-4.8); LYMPH % 17 % (24-48); MEAN CORPUSCULAR HEMOGLOBIN 31 pg (25-35); MEAN CORPUSCULAR HGB CONC 33 g/dL (31-37); MEAN CORPUSCULAR VOLUME 94 fL (79-100); MONO # 0.4 x10^3/uL (0.0-1.1); MONO % 11 % (0-9); NEUT # 2.5 x10^3uL (1.8-7.7); NEUT % 66 % (31-73); PLATELET COUNT 64 x10^3/uL (140-400); RED BLOOD COUNT 3.12 x10^6/uL (3.50-5.40); RED CELL DISTRIBUTION WIDTH 19.4 % (11.5-14.5); WHITE BLOOD COUNT 3.7 x10^3/uL (4.0-11.0)
--- NOTE | 2018-12-26 13:43 | RAD ---
EXAM: Chest, single view. HISTORY: Hypotension. COMPARISON: 12/06/2018 FINDINGS: A frontal view of the chest obtained. There is stable mild diffuse increased interstitial opacity likely due to congestion. There is stable superimposed left lower lobe atelectasis or infiltrate. There is no pleural effusion or pneumothorax. There is a stable prominent cardiac silhouette. IMPRESSION: 1. Stable suspected left lower lobe atelectasis or infiltrate. 2. Stable pulmonary congestion. 3. Stable enlarged cardiac silhouette. Electronically signed by: Sienna Chavez MD (12/26/2018 1:41 PM) [facility]
[2018-12-26 13:52] LABS: CREATININE 4.7 mg/dL (0.6-1.0); GFR 9.1; POTASSIUM 3.8 mmol/L (3.5-5.1)
[2018-12-26 13:58] LABS: ALBUMIN 1.7 g/dL (3.4-5.0); ALBUMIN/GLOBULIN RATIO 0.4 (1.0-1.7); MAGNESIUM 1.8 mg/dL (1.8-2.4); TOTAL BILIRUBIN 0.6 mg/dL (0.2-1.0); TOTAL PROTEIN 5.6 g/dL (6.4-8.2)
--- NOTE | 2018-12-26 14:49 | PHYS DOC ---
Past Medical History Past Medical History: Anxiety, COPD, CVA, Depression, Diabetes-Type II, Hypertension, Hypothyroid, Hepatitis, Liver Disease, Renal Failure, UTI, Other Additional Past Medical Histor: CIRRHOSIS,ESRD Past Surgical History: Hysterectomy Additional Past Surgical Histo: cataracts, L knee bilat carpal tunnel,R trigger finger,R foot,R BKA Alcohol Use: None Drug Use: None Adult General Chief Complaint Chief Complaint: HYPOTENSION HPI HPI Patient is a 73 year old female with history of chronic renal failure on hemodialysis brought in by EMS because of hypotension. Patient had drop of blood pressure to 60/40 at the end of dialysis with one episode of decrease of level of consciousness and EMS was informed. EMS reported that patient had blood pressure of 104/66 and blood sugar of 240 and GCS of 15. Patient had history of right below-knee amputation in September with wound problem. Patient is alert and oriented and denies any pain at arrival to ER. Review of Systems Review of Systems Constitutional: Denies fever or chills [] Eyes: Denies change in visual acuity, redness, or eye pain [] HENT: Denies nasal congestion or sore throat [] Respiratory: Denies cough or shortness of breath [] Cardiovascular: No additional information not addressed in HPI [] GI: Denies abdominal pain, nausea, vomiting, bloody stools or diarrhea [] : Denies dysuria or hematuria [] Musculoskeletal: Denies back pain or joint pain [] Integument: Denies rash or skin lesions [] Neurologic: Denies headache, focal weakness or sensory changes [] Endocrine: Denies polyuria or polydipsia [] All other systems were reviewed and found to be within normal limits, except as documented in this note. Current Medications Current Medications Current Medications Medications (Trade) Dose Ordered Sig/Vijay Start Time Stop Time Status Last Admin Dose Admin Albumin Human 250 ml @ 62.5 mls/hr 1X ONCE 12/26/18 15:00 12/26/18 18:59 12/26/18 15:39 62.5 MLS/HR Ceftriaxone Sodium (Rocephin) 1 gm 1X ONCE 12/26/18 15:00 12/26/18 15:01 DC 12/26/18 15:38 1 GM Sodium Chloride 500 ml @ 500 mls/hr 1X ONCE 12/26/18 15:00 12/26/18 15:59 DC 12/26/18 15:39 500 MLS/HR Allergies Allergies Allergies Coded Allergies Type Severity Reaction Last Updated Verified adhesive Allergy Intermediate Rash 10/15/18 Yes Physical Exam Physical Exam Constitutional: Well developed, mild distress, non-toxic appearance. [] HENT: Normocephalic, atraumatic, oropharynx moist. Eyes: PERRLA, EOMI, conjunctiva normal, no discharge. [] Neck: Normal range of motion, no tenderness, supple, no stridor. [] Cardiovascular: Bradycardia, no murmur [] Lungs & Thorax: Bilateral breath sounds clear to auscultation [] Abdomen: Bowel sounds normal, soft, no tenderness, no masses, no pulsatile masses. [] Skin: Warm, dry, no erythema, no rash. [] Back: No tenderness, no CVA tenderness. [] Extremities: Right below-knee amputation with stump wound with mild dehiscence without drainage of pus. Neurologic: Alert and oriented X 3, normal motor function, normal sensory function, no focal deficits noted. [] Psychologic: Affect normal, mood normal. [] Current Patient Data Vital Signs Vital Signs Date Time Temp Pulse Resp B/P (MAP) Pulse Ox O2 Delivery O2 Flow Rate FiO2 12/26/18 14:06 55 16 96/43 (60) 96 Room Air 12/26/18 12:44 97.8 97.8 Lab Values Laboratory Tests Test 12/26/18 13:25 12/26/18 14:45 12/26/18 14:57 White Blood Count 3.7 x10^3/uL (4.0-11.0) L Red Blood Count 3.12 x10^6/uL (3.50-5.40) L Hemoglobin 9.6 g/dL (12.0-15.5) L Hematocrit 29.4 % (36.0-47.0) L Mean Corpuscular Volume 94 fL (79-100) Mean Corpuscular Hemoglobin 31 pg (25-35) Mean Corpuscular Hemoglobin Concent 33 g/dL (31-37) Red Cell Distribution Width 19.4 % (11.5-14.5) H Platelet Count 64 x10^3/uL (140-400) L Neutrophils (%) (Auto) 66 % (31-73) Lymphocytes (%) (Auto) 17 % (24-48) L Monocytes (%) (Auto) 11 % (0-9) H Eosinophils (%) (Auto) 4 % (0-3) H Basophils (%) (Auto) 1 % (0-3) Neutrophils # (Auto) 2.5 x10^3uL (1.8-7.7) Lymphocytes # (Auto) 0.6 x10^3/uL (1.0-4.8) L Monocytes # (Auto) 0.4 x10^3/uL (0.0-1.1) Eosinophils # (Auto) 0.1 x10^3/uL (0.0-0.7) Basophils # (Auto) 0.1 x10^3/uL (0.0-0.2) Prothrombin Time 19.0 SEC (11.7-14.0) H Prothrombin Time INR 1.6 (0.8-1.1) H Sodium Level 142 mmol/L (136-145) Potassium Level 3.8 mmol/L (3.5-5.1) Chloride Level 106 mmol/L (98-107) Carbon Dioxide Level 27 mmol/L (21-32) Anion Gap 9 (6-14) Blood Urea Nitrogen 25 mg/dL (7-20) H Creatinine 4.7 mg/dL (0.6-1.0) H Estimated GFR (Cockcroft-Gault) 9.1 BUN/Creatinine Ratio 5 (6-20) L Glucose Level 203 mg/dL (70-99) H Lactic Acid Level 1.9 mmol/L (0.4-2.0) Calcium Level 8.0 mg/dL (8.5-10.1) L Magnesium Level 1.8 mg/dL (1.8-2.4) Total Bilirubin 0.6 mg/dL (0.2-1.0) Aspartate Amino Transferase (AST) 25 U/L (15-37) Alanine Aminotransferase (ALT) 16 U/L (14-59) Alkaline Phosphatase 165 U/L (46-116) H Creatine Kinase 38 U/L (26-192) Troponin I Quantitative 0.043 ng/mL (0.000-0.055) Total Protein 5.6 g/dL (6.4-8.2) L Albumin 1.7 g/dL (3.4-5.0) L Albumin/Globulin Ratio 0.4 (1.0-1.7) L Glucose (Fingerstick) 149 mg/dL (70-99) H Urine Collection Type U cath Urine Color Red Urine Clarity Turbid Urine pH 7.0 Urine Specific Constantine 1.015 Urine Protein >=300 mg/dL (NEG-TRACE) Urine Glucose (UA) Negative mg/dL (NEG) Urine Ketones (Stick) Negative mg/dL (NEG) Urine Blood Large (NEG) Urine Nitrite Positive (NEG) Urine Bilirubin Negative (NEG) Urine Urobilinogen Dipstick 0.2 mg/dL (0.2 mg/dL) Urine Leukocyte Esterase Large (NEG) Urine RBC 3-5 /HPF (0-2) Urine WBC Tntc /HPF (0-4) Urine Bacteria Moderate /HPF (0-FEW) Laboratory Tests 12/26/18 13:25 Laboratory Tests 12/26/18 13:25 EKG EKG EKG interpreted by me. EKG at 1300 showed sinus bradycardia at rate of 55, low voltage QRS, normal HI towards, nonspecific T-wave abnormalities poor R-wave progress in anteroseptal leads. Radiology/Procedures Radiology/Procedures [facility] [address] [place] [address] IMAGING REPORT Signed PATIENT: YIN DIAZ ACCOUNT: [id number] : 1945 LOCATION: ER AGE: 73 SEX: F EXAM STATUS: PRE ER ORD. PHYSICIAN: PAT SHAH MD REASON: hypotension PROCEDURE: PORTABLE CHEST 1V EXAM: Chest, single view. HISTORY: Hypotension. COMPARISON: 12/06/2018 FINDINGS: A frontal view of the chest obtained. There is stable mild diffuse increased interstitial opacity likely due to congestion. There is stable superimposed left lower lobe atelectasis or infiltrate. There is no pleural effusion or pneumothorax. There is a stable prominent cardiac silhouette. IMPRESSION: 1. Stable suspected left lower lobe atelectasis or infiltrate. 2. Stable pulmonary congestion. 3. Stable enlarged cardiac silhouette. Electronically signed by: Sienna Glasgow MD (12/26/2018 1:41 PM) [facility] DICTATED and SIGNED BY: SIENNA GLASGOW MD DATE: 12/26/18 3563 Course & Med Decision Making Course & Med Decision Making Pertinent Labs and Imaging studies reviewed. (See chart for details) Evaluation of patient in ER showed 73-year-old female patient with chronic renal failure on hemodialysis brought in because of hypertension and depression. Patient was alert and oriented at arrival to ER blood pressure of 91 that gradually had drop of blood pressure as low as 79/50s and became somnolent. Patient had chronic leukopenia with unremarkable lactic acid and chest x-ray. Patient had UTI without electrolyte problem. Patient is DNR. Plan to admit patient to hospitalist with diagnosis of hypertension, UTI, chronic renal failure. Because of drop of blood pressure patient treated with 500 mL of normal saline after consulting the hospitalist with improvement of blood pressure to more than 90..Patient requiring admission for further evaluation and treatment. Discussed with Dr. Cuellar who is in agreement with admission. Discussed findings and plan with patient and family, who acknowledge understanding and agreement. Dragon Disclaimer Dragon Disclaimer This electronic medical record was generated, in whole or in part, using a voice recognition dictation system. Departure Departure Impression: Primary Impression: Hypotension Additional Impressions: UTI (urinary tract infection) Leukopenia Uncontrolled diabetes mellitus Amputation stump infection Anemia Hypoalbuminemia Altered level of consciousness Chronic kidney disease with end stage renal failure on dialysis Disposition: ADMITTED INPATIENT (at 1458) Admitting Physician: Rosa Maria Cuellar (accepted admission at 1457) Condition: IMPROVED Referrals: CATHLEEN OLGUIN (PCP) Critical Care Time Critical care time was 75 minutes exclusive of procedures. Problem Qualifiers Primary Impression: Hypotension Hypotension type: unspecified hypotension type Qualified Codes: I95.9 - Hy potension, unspecified Additional Impressions: UTI (urinary tract infection) Urinary tract infection type: site unspecified Hematuria presence: with hematuria Qualified Codes: N39.0 - Urinary tract infection, site not specified; R31.9 - Hematuria, unspecified Leukopenia Leukopenia type: unspecified Qualified Codes: D72.819 - Decreased white blood cell count, unspecified Uncontrolled diabetes mellitus Diabetes mellitus type: other specified (including JOSY) Glycemic state: with hyperglycemia Qualified Codes: E13.65 - Other specified diabetes mellitus with hyperglycemia Anemia Anemia type: unspecified type Qualified Codes: D64.9 - Anemia, unspecified PAT SHAH MD December 26, 2018 14:49
[2018-12-26] MEDS ORDERED: ALBUMIN HUMAN 5% 250 ML IV ONE (15:00)
[2018-12-26] MEDS ORDERED: IV NORMAL SALINE 500ML BAG 500 ML IV ONE (15:00)
[2018-12-26] MEDS ORDERED: cefTRIAXone IV Push 1 GM VIAL. IVP ONE (15:00)
[2018-12-26 15:04] LABS: BILIRUBIN,URINE NEGATIVE (NEG); CLARITY,URINE TURBID; COLOR,URINE RED; NITRITE,URINE POSITIVE (NEG); PROTEIN,URINE >=300 mg/dL (NEG-TRACE); UROBILINOGEN,URINE 0.2 mg/dL (0.2 mg/dL)
[2018-12-26 15:12] LABS: BACTERIA,URINE MODERATE /HPF (0-FEW); WBC,URINE TNTC /HPF (0-4)
--- NOTE | 2018-12-26 16:51 | PDOC1 ---
History and Physical Date of Admission Date of Admission DATE: 12/26/18 TIME: 16:47 Source Source: Caregiver (her grandson), Chart review, Patient History of Present Illness History of Present Illness Cecily is a 73 year old female adtmi for hypotension at dialysis. She has ESRD, and was at hemodialysis brought in by EMS because of hypotension there, 60/40 and already better to 90 range systolic before IV fluid or albumin given in the ER she was lethargic in the ER, but alert and talkative, her grandson and great grandson were there. Patient had history of right below-knee amputation in September with and ongoing wound that has dressing on it,. Past Medical History Cardiovascular: CHF, HTN, Hyperlipidemia Pulmonary: COPD, Pneumonia, Other CENTRAL NERVOUS SYSTEM: CVA, Periperal neuropathy GI: GERD Heme/Onc: Anemia NOS Hepatobiliary: Cirrhosis Psych: Anxiety, Depression Musculoskeletal: Osteoarthritis Rheumatologic: No pertinent hx Infectious disease: No pertinent hx Renal/: Chronic renal failure, UTI Endocrine: Diabetes, Hypothyroidism Past Surgical History Past Surgical History: Hysterectomy, Other (amputation) Family History Family History: Diabetes Social History ALCOHOL: none Drugs: None Current Problem List Problem List Problems Medical Problems: (1) Altered level of consciousness Status: Acute (2) Amputation stump infection Status: Acute (3) Anemia Status: Acute (4) Chronic kidney disease with end stage renal failure on dialysis Status: Acute (5) Hypoalbuminemia Status: Acute (6) Hypotension Status: Acute (7) Leukopenia Status: Acute (8) Uncontrolled diabetes mellitus Status: Acute (9) UTI (urinary tract infection) Status: Acute Current Medications Current Medications Current Medications Ceftriaxone Sodium (Rocephin) 1 gm 1X ONCE IVP Last administered on 12/26/18at 15:38; Start 12/26/18 at 15:00; Stop 12/26/18 at 15:01; Status DC Albumin Human 250 ml @ 62.5 mls/hr 1X ONCE IV Last administered on 12/26/18at 15:39; Start 12/26/18 at 15:00; Stop 12/26/18 at 18:59 Sodium Chloride 500 ml @ 500 mls/hr 1X ONCE IV Last administered on 12/26/18at 15:39; Start 12/26/18 at 15:00; Stop 12/26/18 at 15:59; Status DC Active Scripts Active Augmentin 875-125 Tablet (Amoxicillin/Potassium Clav) 1 Each Tablet 1 Tab PO BID 10 Days Culturelle (Lactobacillus Rhamnosus Gg) 1 Each Cap.sprink 1 Cap PO BID 10 Days [Pantoprazole] 40 MG Tablet.dr 40 Mg PO DAILYAC 30 Days Xifaxan (Rifaximin) 550 Mg Tablet 550 Mg PO Q12HR 30 Days Ativan (Lorazepam) 0.5 Mg Tablet 0.5 Mg PO PRN Q6HRS PRN 6 Days Hydrocodone-Apap 5-325 (Hydrocodone Bit/Acetaminophen) 1 Each Tablet 2 Tab PO PRN Q6HRS PRN 6 Days Zofran (Ondansetron Hcl) 4 Mg Tablet 1 Tab PO Q6HRS Lantus Solostar (Insulin Glargine,Hum.rec.anlog) 100 Unit/1 Ml Insuln.pen 15 Units SQ DAILY 28 Days Lactulose 20 Gm/30 Ml Solution 10 Gm PO PRN TID PRN 10 Days Aspirin Ec (Aspirin) 325 Mg Tablet.dr 325 Mg PO DAILYWBKFT 30 Days Reported Melatonin 3 Mg Tablet 6 Mg PO QHS Buspirone Hcl 10 Mg Tablet 10 Mg PO TIDWMEALS Calcium Acetate 667 Mg Tablet 667 Mg PO TIDWMEALS Tizanidine Hcl 2 Mg Capsule 2 Mg PO BID PRN Meclizine Hcl 25 Mg Tablet 1 Tab PO TID Voltaren (Diclofenac Sodium) 100 Gm Gel..gram. 1 Gm TP BID Clonidine Hcl 0.2 Mg Tablet 0.2 Mg PO DAILY Gabapentin (Gabapentin) 100 Mg Capsule 100 Mg PO DAILY Zoloft (Sertraline Hcl) 50 Mg Tablet 75 Mg PO DAILY Renvela (Sevelamer Carbonate) 800 Mg Tablet 1 Tab PO TIDWMEALS Levothyroxine Sodium 175 Mcg Tablet 125 Mcg PO DAILYAC Dialyvite [place] D Tablet (Multivitamin, Min Cmb#25/Fa/D3) 1 Each Tablet 1 Each PO DAILY Metoprolol Succinate ( Xl ) (Metoprolol Succinate) 25 Mg Tab.er.24h 25 Mg PO DAILY Isosorbide Dinitrate 30 Mg Tablet 1 Tab PO DAILY Allergies Allergies: Coded Allergies: adhesive (Verified Allergy, Intermediate, Rash, 10/15/18) TAPE ROS General: YES: Chills, Fatigue; No: Night Sweats, Malaise, Appetite, Other PSYCHOLOGICAL ROS: No: Anxiety, Behavioral Disorder, Concentration difficultie, Decreased libido, Depression, Disorientation, Hallucinations, Hostility, Irritablity, Memory difficulties, Mood Swings, Obsessive thoughts, Physical abuse, Sexual abuse, Sleep disturbances, Suicidal ideation, Other Respiratory: YES: Cough; No: Hemoptysis, Orthopnea, Pleuritic Pain, Shortness of breath, SOB with excertion, Sputum Changes, Stridor, Tachypnea, Wheezing, Other Cardiovascular: No Chest Pain, No Palpitations, No Orthopnea, No Paroxysmal Noc. Dyspnea, No Edema, No Lt Headedness, No Other Gastrointestinal: Yes Nausea Genitourinary: No Dysuria, No Frequency, No Incontinence, No Hematuria, No Retention, No Discharge, No Urgency, No Pain, No Flank Pain, No Other, No , No , No , No , No , No , No Musculoskeletal: Yes Joint Pain (phantom pain), Yes Joint Stiffness; No Gait Disturbance, No Joint Swelling, No Muscle Pain, No Muscular Weakness, No Pain In:, No Swelling In:, No Other Neurological: Yes Confusion, Yes Headaches, Yes Other Skin: Yes Dry Skin, Yes Rash Physical Exam General: Alert, Oriented X3, Cooperative, mild distress HEENT: Atraumatic, PERRLA Lungs: Clear to auscultation Abdomen: Normal bowel sounds, Soft Extremities: No cyanosis, Other (right AKA with poor wound healing to stump, ) Neuro: Normal speech, Sensation intact Psych/Mental Status: Mood NL, Other (lethargic ) Vitals Vitals Vital Signs Date Time Temp Pulse Resp B/P (MAP) Pulse Ox O2 Delivery O2 Flow Rate FiO2 12/26/18 16:10 56 100/54 (69) 12/26/18 14:06 16 96 Room Air 12/26/18 12:44 97.8 97.8 Labs Labs Laboratory Tests Test 12/26/18 13:25 12/26/18 14:45 12/26/18 14:57 White Blood Count 3.7 x10^3/uL (4.0-11.0) Red Blood Count 3.12 x10^6/uL (3.50-5.40) Hemoglobin 9.6 g/dL (12.0-15.5) Hematocrit 29.4 % (36.0-47.0) Mean Corpuscular Volume 94 fL (79-100) Mean Corpuscular Hemoglobin 31 pg (25-35) Mean Corpuscular Hemoglobin Concent 33 g/dL (31-37) Red Cell Distribution Width 19.4 % (11.5-14.5) Platelet Count 64 x10^3/uL (140-400) Neutrophils (%) (Auto) 66 % (31-73) Lymphocytes (%) (Auto) 17 % (24-48) Monocytes (%) (Auto) 11 % (0-9) Eosinophils (%) (Auto) 4 % (0-3) Basophils (%) (Auto) 1 % (0-3) Neutrophils # (Auto) 2.5 x10^3uL (1.8-7.7) Lymphocytes # (Auto) 0.6 x10^3/uL (1.0-4.8) Monocytes # (Auto) 0.4 x10^3/uL (0.0-1.1) Eosinophils # (Auto) 0.1 x10^3/uL (0.0-0.7) Basophils # (Auto) 0.1 x10^3/uL (0.0-0.2) Prothrombin Time 19.0 SEC (11.7-14.0) Prothromb Time International Ratio 1.6 (0.8-1.1) Sodium Level 142 mmol/L (136-145) Potassium Level 3.8 mmol/L (3.5-5.1) Chloride Level 106 mmol/L (98-107) Carbon Dioxide Level 27 mmol/L (21-32) Anion Gap 9 (6-14) Blood Urea Nitrogen 25 mg/dL (7-20) Creatinine 4.7 mg/dL (0.6-1.0) Estimated GFR (Cockcroft-Gault) 9.1 BUN/Creatinine Ratio 5 (6-20) Glucose Level 203 mg/dL (70-99) Lactic Acid Level 1.9 mmol/L (0.4-2.0) Calcium Level 8.0 mg/dL (8.5-10.1) Magnesium Level 1.8 mg/dL (1.8-2.4) Total Bilirubin 0.6 mg/dL (0.2-1.0) Aspartate Amino Transf (AST/SGOT) 25 U/L (15-37) Alanine Aminotransferase (ALT/SGPT) 16 U/L (14-59) Alkaline Phosphatase 165 U/L (46-116) Creatine Kinase 38 U/L (26-192) Troponin I Quantitative 0.043 ng/mL (0.000-0.055) Total Protein 5.6 g/dL (6.4-8.2) Albumin 1.7 g/dL (3.4-5.0) Albumin/Globulin Ratio 0.4 (1.0-1.7) Glucose (Fingerstick) 149 mg/dL (70-99) Urine Collection Type U cath Urine Color Red Urine Clarity Turbid Urine pH 7.0 Urine Specific [place] 1.015 Urine Protein >=300 mg/dL (NEG-TRACE) Urine Glucose (UA) Negative mg/dL (NEG) Urine Ketones (Stick) Negative mg/dL (NEG) Urine Blood Large (NEG) Urine Nitrite Positive (NEG) Urine Bilirubin Negative (NEG) Urine Urobilinogen Dipstick 0.2 mg/dL (0.2 mg/dL) Urine Leukocyte Esterase Large (NEG) Urine RBC 3-5 /HPF (0-2) Urine WBC Tntc /HPF (0-4) Urine Bacteria Moderate /HPF (0-FEW) Laboratory Tests Test 12/26/18 13:25 12/26/18 14:45 12/26/18 14:57 White Blood Count 3.7 x10^3/uL (4.0-11.0) Red Blood Count 3.12 x10^6/uL (3.50-5.40) Hemoglobin 9.6 g/dL (12.0-15.5) Hematocrit 29.4 % (36.0-47.0) Mean Corpuscular Volume 94 fL (79-100) Mean Corpuscular Hemoglobin 31 pg (25-35) Mean Corpuscular Hemoglobin Concent 33 g/dL (31-37) Red Cell Distribution Width 19.4 % (11.5-14.5) Platelet Count 64 x10^3/uL (140-400) Neutrophils (%) (Auto) 66 % (31-73) Lymphocytes (%) (Auto) 17 % (24-48) Monocytes (%) (Auto) 11 % (0-9) Eosinophils (%) (Auto) 4 % (0-3) Basophils (%) (Auto) 1 % (0-3) Neutrophils # (Auto) 2.5 x10^3uL (1.8-7.7) Lymphocytes # (Auto) 0.6 x10^3/uL (1.0-4.8) Monocytes # (Auto) 0.4 x10^3/uL (0.0-1.1) Eosinophils # (Auto) 0.1 x10^3/uL (0.0-0.7) Basophils # (Auto) 0.1 x10^3/uL (0.0-0.2) Prothrombin Time 19.0 SEC (11.7-14.0) Prothromb Time International Ratio 1.6 (0.8-1.1) Sodium Level 142 mmol/L (136-145) Potassium Level 3.8 mmol/L (3.5-5.1) Chloride Level 106 mmol/L (98-107) Carbon Dioxide Level 27 mmol/L (21-32) Anion Gap 9 (6-14) Blood Urea Nitrogen 25 mg/dL (7-20) Creatinine 4.7 mg/dL (0.6-1.0) Estimated GFR (Cockcroft-Gault) 9.1 BUN/Creatinine Ratio 5 (6-20) Glucose Level 203 mg/dL (70-99) Lactic Acid Level 1.9 mmol/L (0.4-2.0) Calcium Level 8.0 mg/dL (8.5-10.1) Magnesium Level 1.8 mg/dL (1.8-2.4) Total Bilirubin 0.6 mg/dL (0.2-1.0) Aspartate Amino Transf (AST/SGOT) 25 U/L (15-37) Alanine Aminotransferase (ALT/SGPT) 16 U/L (14-59) Alkaline Phosphatase 165 U/L (46-116) Creatine Kinase 38 U/L (26-192) Troponin I Quantitative 0.043 ng/mL (0.000-0.055) Total Protein 5.6 g/dL (6.4-8.2) Albumin 1.7 g/dL (3.4-5.0) Albumin/Globulin Ratio 0.4 (1.0-1.7) Glucose (Fingerstick) 149 mg/dL (70-99) Urine Collection Type U cath Urine Color Red Urine Clarity Turbid Urine pH 7.0 Urine Specific [place] 1.015 Urine Protein >=300 mg/dL (NEG-TRACE) Urine Glucose (UA) Negative mg/dL (NEG) Urine Ketones (Stick) Negative mg/dL (NEG) Urine Blood Large (NEG) Urine Nitrite Positive (NEG) Urine Bilirubin Negative (NEG) Urine Urobilinogen Dipstick 0.2 mg/dL (0.2 mg/dL) Urine Leukocyte Esterase Large (NEG) Urine RBC 3-5 /HPF (0-2) Urine WBC Tntc /HPF (0-4) Urine Bacteria Moderate /HPF (0-FEW) VTE Prophylaxis Ordered VTE Prophylaxis Devices: Contraindicated VTE Pharmacological Prophylaxi: Yes Assessment/Plan Assessment/Plan symptomatic hypotension hypotension on ESRD, at dialysis chronic liver disease severe malnutrition chronic RLE wound, poor wound healing ROB GAMEZ MD December 26, 2018 16:51
[2018-12-26] MEDS ORDERED: LORazepam 0.5 MG TABLET PO PRN (17:00)
[2018-12-26] MEDS ORDERED: LACTULOSE 20 GM/30 ML SOLUTION. PO PRN (17:00)
[2018-12-26] MEDS ORDERED: tiZANidine 4 MG TABLET. PO PRN (17:00)
[2018-12-26 17:10] VITALS: BP 110/38
[2018-12-26] MEDS ORDERED: NON FORMULARY ITEM (Ondansetron Hcl (Zofran) 1 TAB) PO SCH (18:00)
[2018-12-26 19:10] VITALS: BP 135/68
[2018-12-26] MEDS: CALCIUM ACETATE 667 MG CAPSULE PO SCH (19:25)
[2018-12-26] MEDS: SEVELAMER CARBONATE 800 MG TABLET. PO SCH (19:25)
[2018-12-26] MEDS: busPIRone 10 MG TABLET. PO SCH (19:25)
[2018-12-26] MEDS: LACTOBACILLUS RHAMNOSUS GG 1 CAPSULE. PO SCH (20:29)
[2018-12-26] MEDS: MECLIZINE HCL 12.5 MG TABLET. PO SCH (20:29)
[2018-12-26] MEDS: rifAXIMin 550 MG TABLET PO SCH (20:29)
[2018-12-26] MEDS: DICLOFENAC SODIUM 1% TOPICAL GEL 100GM TUBE. TP SCH (20:30)
[2018-12-26] MEDS ORDERED: NON FORMULARY ITEM (Melatonin 6 MG) PO SCH (21:00)
--- NOTE | 2018-12-26 23:00 | NUR ---
Family friend who is claimed to be pt's "Palliative" care nurse, Sy, from [facility] came be to see pt. Sy stated that pt is on palliative care and had state to her that she would like to go back home on Hospice, and not back to the skilled facility. Sy left her phone number [phone], stated she will be back in the morning to speak to the doctors regarding pt's care.
[2018-12-26 23:48] VITALS: BP 145/45
[2018-12-27 03:41] VITALS: BP 113/39
[2018-12-27] MEDS: LEVOTHYROXINE 125 MCG TABLET PO SCH (05:41)
[2018-12-27 07:00] VITALS: BP 125/46
[2018-12-27] MEDS: DICLOFENAC SODIUM 1% TOPICAL GEL 100GM TUBE. TP SCH ×2 (08:36→21:00)
[2018-12-27] MEDS: HYDROcodone/APAP 5/325MG 1 TAB TABLET PO PRN ×2 (08:37→17:52)
[2018-12-27] MEDS: MECLIZINE HCL 12.5 MG TABLET. PO SCH ×3 (08:38→21:32)
[2018-12-27] MEDS: CALCIUM ACETATE 667 MG CAPSULE PO SCH ×3 (08:38→17:51)
[2018-12-27] MEDS: busPIRone 10 MG TABLET. PO SCH ×3 (08:38→17:51)
[2018-12-27] MEDS: LACTOBACILLUS RHAMNOSUS GG 1 CAPSULE. PO SCH ×2 (08:38→21:32)
[2018-12-27] MEDS: MULTIVITAMIN with MINERAL TABLET. PO SCH (08:39)
[2018-12-27] MEDS: SEVELAMER CARBONATE 800 MG TABLET. PO SCH ×3 (08:39→17:51)
[2018-12-27] MEDS: GABAPENTIN 100 MG CAPSULE. PO SCH (08:40)
[2018-12-27] MEDS: SERTRALINE 50 MG TABLET. PO SCH (08:40)
[2018-12-27] MEDS: rifAXIMin 550 MG TABLET PO SCH ×2 (08:40→21:32)
[2018-12-27] MEDS: PANTOPRAZOLE 40 MG TABLET.DR. PO SCH (08:40)
[2018-12-27] MEDS: ASPIRIN ENTERIC COATED 325 MG TABLET.DR. PO SCH (08:40)
[2018-12-27] MEDS ORDERED: INSULIN GLARGINE 300 UNITS/3 ML INSULN.PEN. SQ SCH (09:00)
[2018-12-27] MEDS: METOPROLOL SUCC 24HR ER 25 MG TAB.ER.24H. PO SCH (09:00)
--- NOTE | 2018-12-27 09:54 | EKG ---
[facility] [address] [place] [address] Test Date: 2018-12-26 Test Time: 13:00:52 Pat Name: YIN DIAZ Department: Room: [facility] Gender: F Credit Collections Manager: : 1945 Requested By: PAT SHAH Order Number: [id number] Reading MD: Chriss Sue MD Measurements Intervals [place] Rate: 54 P: 62 AL: 214 QRS: 7 QRSD: 84 T: 10 QT: 482 QTc: 463 Interpretive Statements SINUS RHYTHM LOW LIMB LEAD VOLTAGE NON SPECIFIC T ABNORMALITY Electronically Signed On 12-29-2018 14:09:32 CDT by Chriss Sue MD
[2018-12-27 11:00] VITALS: BP 136/46
[2018-12-27] MEDS ORDERED: PIP/TAZO PER PHARMACY MC PRN (11:45)
--- NOTE | 2018-12-27 12:00 | PDOC ---
Infectious Disease Note Vital Sign Vital Signs Vital Signs Date Time Temp Pulse Resp B/P (MAP) Pulse Ox O2 Delivery O2 Flow Rate FiO2 12/27/18 09:37 17 Room Air 12/27/18 07:00 98.1 56 125/46 (72) 92 98.1 Labs Lab Laboratory Tests Test 12/26/18 13:25 12/26/18 14:45 12/26/18 14:57 12/26/18 17:13 White Blood Count 3.7 x10^3/uL (4.0-11.0) Red Blood Count 3.12 x10^6/uL (3.50-5.40) Hemoglobin 9.6 g/dL (12.0-15.5) Hematocrit 29.4 % (36.0-47.0) Mean Corpuscular Volume 94 fL (79-100) Mean Corpuscular Hemoglobin 31 pg (25-35) Mean Corpuscular Hemoglobin Concent 33 g/dL (31-37) Red Cell Distribution Width 19.4 % (11.5-14.5) Platelet Count 64 x10^3/uL (140-400) Neutrophils (%) (Auto) 66 % (31-73) Lymphocytes (%) (Auto) 17 % (24-48) Monocytes (%) (Auto) 11 % (0-9) Eosinophils (%) (Auto) 4 % (0-3) Basophils (%) (Auto) 1 % (0-3) Neutrophils # (Auto) 2.5 x10^3uL (1.8-7.7) Lymphocytes # (Auto) 0.6 x10^3/uL (1.0-4.8) Monocytes # (Auto) 0.4 x10^3/uL (0.0-1.1) Eosinophils # (Auto) 0.1 x10^3/uL (0.0-0.7) Basophils # (Auto) 0.1 x10^3/uL (0.0-0.2) Prothrombin Time 19.0 SEC (11.7-14.0) Prothromb Time International Ratio 1.6 (0.8-1.1) Sodium Level 142 mmol/L (136-145) Potassium Level 3.8 mmol/L (3.5-5.1) Chloride Level 106 mmol/L (98-107) Carbon Dioxide Level 27 mmol/L (21-32) Anion Gap 9 (6-14) Blood Urea Nitrogen 25 mg/dL (7-20) Creatinine 4.7 mg/dL (0.6-1.0) Estimated GFR (Cockcroft-Gault) 9.1 BUN/Creatinine Ratio 5 (6-20) Glucose Level 203 mg/dL (70-99) Lactic Acid Level 1.9 mmol/L (0.4-2.0) Calcium Level 8.0 mg/dL (8.5-10.1) Magnesium Level 1.8 mg/dL (1.8-2.4) Total Bilirubin 0.6 mg/dL (0.2-1.0) Aspartate Amino Transf (AST/SGOT) 25 U/L (15-37) Alanine Aminotransferase (ALT/SGPT) 16 U/L (14-59) Alkaline Phosphatase 165 U/L (46-116) Creatine Kinase 38 U/L (26-192) Troponin I Quantitative 0.043 ng/mL (0.000-0.055) Total Protein 5.6 g/dL (6.4-8.2) Albumin 1.7 g/dL (3.4-5.0) Albumin/Globulin Ratio 0.4 (1.0-1.7) Glucose (Fingerstick) 149 mg/dL (70-99) 151 mg/dL (70-99) Urine Collection Type U cath Urine Color Red Urine Clarity Turbid Urine pH 7.0 Urine Specific [place] 1.015 Urine Protein >=300 mg/dL (NEG-TRACE) Urine Glucose (UA) Negative mg/dL (NEG) Urine Ketones (Stick) Negative mg/dL (NEG) Urine Blood Large (NEG) Urine Nitrite Positive (NEG) Urine Bilirubin Negative (NEG) Urine Urobilinogen Dipstick 0.2 mg/dL (0.2 mg/dL) Urine Leukocyte Esterase Large (NEG) Urine RBC 3-5 /HPF (0-2) Urine WBC Tntc /HPF (0-4) Urine Bacteria Moderate /HPF (0-FEW) Test 12/26/18 19:23 12/27/18 07:16 Glucose (Fingerstick) 207 mg/dL (70-99) 251 mg/dL (70-99) Micro Objective Assessment Infected nonhealing right below knee stump -surgery was 10/21/2018 -h/o PSA pansensitive Pyuria -h/o E. coli and enterococcus, PCN-S Hypotension, responsive to IVF Pancytopenia Cirrhosis with ascites CKD/HD via AVF DM II w/ peripheral neuropathy PAD Plan Plan of Care Dose Zosyn Needs debridement. She has declined revision/AKA in past. She wants to talk to family about what to do. Wound care team has been consulted. Awaiting cultures results Monitor labs/temp D/w Dr. Cuellar Thank you [phone] Patient seen, examined, Chart reviewed Labs,micro,imaging reviewed D/W Nursing staff I agree with above assessment and plan formulated by FOREPART RASPER. JOELLE GUTIERREZ APRN December 27, 2018 12:00 MARTIN ALONZO MD December 27, 2018 16:01
--- NOTE | 2018-12-27 12:27 | PDOC2 ---
CONSULT Date of Consult Date of Consult DATE: 12/27/18 TIME: 12:20 Reason for Consult Reason for Consult: ESRD Referring Physician Referring Physician: FRANCO Identification/Chief Complaint Chief Complaint LOW BP, CONFUSION Source Source: Chart review History of Present Illness Reason for Visit: THIS IS A 73 YR OLD ESRD PT WITH OP HD ON TTS. I WAS NOTIFIED BY STAFF THAT SHE WAS POORLY RESPONSIVE AND NOTED TO HAVE SBP IN THE 70-80 RANGE. SHE WAS TAKEN OFF HD AND SENT TO THE ER. LABS ARE C/W ESRD. SHE ALSO HAS PANCYTOPENIA AND NOTED TO HAVE RIGHT LE WOUND. SHE ALSO HAS ESLD WITH ASCITES REQUIRING PARACENTESIS IN THE PAST. HER ASCITES IS TENSE. SHE IS CONFUSED AND NOT ABLE PROVIDE ANY HX Past Medical History Cardiovascular: CHF, HTN, Hyperlipidemia Pulmonary: COPD, Pneumonia, Other CENTRAL NERVOUS SYSTEM: CVA, Periperal neuropathy GI: GERD Heme/Onc: Anemia NOS Hepatobiliary: Cirrhosis Psych: Anxiety, Depression Musculoskeletal: Osteoarthritis Rheumatologic: No pertinent hx Infectious disease: No pertinent hx Renal/: Chronic renal failure, UTI Endocrine: Diabetes, Hypothyroidism Past Surgical History Past Surgical History: Hysterectomy, Other (amputation) Family History Family History: Diabetes Social History ALCOHOL: none Drugs: None Lives: with Family Current Problem List Problem List Problems Medical Problems: (1) Altered level of consciousness Status: Acute (2) Amputation stump infection Status: Acute (3) Anemia Status: Acute (4) Chronic kidney disease with end stage renal failure on dialysis Status: Acute (5) Hypoalbuminemia Status: Acute (6) Hypotension Status: Acute (7) Leukopenia Status: Acute (8) Uncontrolled diabetes mellitus Status: Acute (9) UTI (urinary tract infection) Status: Acute Current Medications Current Medications Current Medications Ceftriaxone Sodium (Rocephin) 1 gm 1X ONCE IVP Last administered on 12/26/18at 15:38; Start 12/26/18 at 15:00; Stop 12/26/18 at 15:01; Status DC Albumin Human 250 ml @ 62.5 mls/hr 1X ONCE IV Last administered on 12/26/18 15:39; Start 12/26/18 at 15:00; Stop 12/26/18 at 18:59; Status DC Sodium Chloride 500 ml @ 500 mls/hr 1X ONCE IV Last administered on 12/26/18at 15:39; Start 12/26/18 at 15:00; Stop 12/26/18 at 15:59; Status DC Aspirin (Ecotrin) 325 mg DAILYWBKFT PO Last administered on 12/27/18 08:40; Start 12/27/18 at 08:00 Buspirone HCl (Buspar) 10 mg TIDWMEALS PO Last administered on 12/27/18 08:38; Start 12/26/18 at 17:00 Diclofenac Sodium (Voltaren) 1 ronel BID TP Last administered on 12/27/18 08:36; Start 12/26/18 at 21:00 Gabapentin (Neurontin) 100 mg DAILY PO Last administered on 12/27/18 08:40; Start 12/27/18 at 09:00 Acetaminophen/ Hydrocodone Bitart (Lortab 325) 2 tab PRN Q6HRS PRN PO PAIN Last administered on 12/27/18 08:37; Start 12/26/18 at 17:00 Insulin Glargine (Lantus) 15 units DAILY SQ Last administered on 12/27/18 08:46; Start 12/27/18 at 09:00 Lactobacillus Rhamnosus (Culturelle) 1 cap BID PO Last administered on 12/27/18 08:38; Start 12/26/18 at 21:00 Lactulose (Lactulose) 10 gm PRN TID PRN PO CONSTIPATION; Start 12/26/18 at 17:00 Levothyroxine Sodium (Synthroid) 125 mcg DAILY06 PO Last administered on 12/27/18 05:41; Start 12/27/18 at 06:00 Lorazepam (Ativan) 0.5 mg PRN Q6HRS PRN PO ANXIETY / AGITATION; Start 12/26/18 at 17:00 Metoprolol Succinate (Toprol Xl) 25 mg DAILY PO ; Start 12/27/18 at 09:00 Rifaximin (Xifaxan) 550 mg Q12HR PO Last administered on 12/27/18 08:40; Start 12/26/18 at 21:00 Sertraline HCl (Zoloft) 75 mg DAILY PO Last administered on 12/27/18 08:40; Start 12/27/18 at 09:00 Sevelamer Carbonate (Renvela) 800 mg TIDWMEALS PO Last administered on 12/27/18 08:39; Start 12/26/18 at 17:00 Calcium Acetate (Phoslo) 667 mg TIDWMEALS PO Last administered on 12/27/18at 08:38; Start 12/26/18 at 17:00 Meclizine HCl (Antivert) 25 mg TID PO Last administered on 12/27/18at 08:38; Start 12/26/18 at 21:00 Non-Formulary Medication (Melatonin ) 6 mg QHS PO ; Start 12/26/18 at 21:00; Status UNV Multivitamins (Thera M Plus) 1 tab DAILY PO Last administered on 12/27/18at 08:39; Start 12/27/18 at 09:00 Non-Formulary Medication (Ondansetron Hcl (Zofran)) 1 tab Q6HRS PO ; Start 12/26/18 at 18:00; Status UNV Tizanidine HCl (Zanaflex) 4 mg PRN BID PRN PO MUSCLE SPASMS Last administered on 12/26/18at 20:29; Start 12/26/18 at 17:00 Pantoprazole Sodium (Protonix) 40 mg DAILYAC PO Last administered on 12/27/18at 08:40; Start 12/27/18 at 07:30 Piperacillin Sod/ Tazobactam Sod (Zosyn Per Pharmacy) 1 each PRN DAILY PRN MC SEE COMMENTS; Start 12/27/18 at 11:45; Status UNV Piperacillin Sod/ Tazobactam Sod 2.25 gm/Sodium Chloride 50 ml @ 100 mls/hr Q8HRS IV ; Start 12/27/18 at 13:00 Active Scripts Active Augmentin 875-125 Tablet (Amoxicillin/Potassium Clav) 1 Each Tablet 1 Tab PO BID 10 Days Culturelle (Lactobacillus Rhamnosus Gg) 1 Each Cap.sprink 1 Cap PO BID 10 Days [Pantoprazole] 40 MG Tablet.dr 40 Mg PO DAILYAC 30 Days Xifaxan (Rifaximin) 550 Mg Tablet 550 Mg PO Q12HR 30 Days Ativan (Lorazepam) 0.5 Mg Tablet 0.5 Mg PO PRN Q6HRS PRN 6 Days Hydrocodone-Apap 5-325 (Hydrocodone Bit/Acetaminophen) 1 Each Tablet 2 Tab PO PRN Q6HRS PRN 6 Days Zofran (Ondansetron Hcl) 4 Mg Tablet 1 Tab PO Q6HRS Lantus Solostar (Insulin Glargine,Hum.rec.anlog) 100 Unit/1 Ml Insuln.pen 15 Units SQ DAILY 28 Days Lactulose 20 Gm/30 Ml Solution 10 Gm PO PRN TID PRN 10 Days Aspirin Ec (Aspirin) 325 Mg Tablet.dr 325 Mg PO DAILYWBKFT 30 Days Reported Melatonin 3 Mg Tablet 6 Mg PO QHS Buspirone Hcl 10 Mg Tablet 10 Mg PO TIDWMEALS Calcium Acetate 667 Mg Tablet 667 Mg PO TIDWMEALS Tizanidine Hcl 2 Mg Capsule 2 Mg PO BID PRN Meclizine Hcl 25 Mg Tablet 1 Tab PO TID Voltaren (Diclofenac Sodium) 100 Gm Gel..gram. 1 Gm TP BID Clonidine Hcl 0.2 Mg Tablet 0.2 Mg PO DAILY Gabapentin (Gabapentin) 100 Mg Capsule 100 Mg PO DAILY Zoloft (Sertraline Hcl) 50 Mg Tablet 75 Mg PO DAILY Renvela (Sevelamer Carbonate) 800 Mg Tablet 1 Tab PO TIDWMEALS Levothyroxine Sodium 175 Mcg Tablet 125 Mcg PO DAILYAC Dialyvite [place] D Tablet (Multivitamin, Min Cmb#25/Fa/D3) 1 Each Tablet 1 Each PO DAILY Metoprolol Succinate ( Xl ) (Metoprolol Succinate) 25 Mg Tab.er.24h 25 Mg PO DAILY Isosorbide Dinitrate 30 Mg Tablet 1 Tab PO DAILY Allergies Allergies: Coded Allergies: adhesive (Verified Allergy, Intermediate, Rash, 10/15/18) TAPE ROS Review of System UNABLE TO OBTAIN Physical Exam General: Cooperative, mild distress HEENT: Atraumatic, PERRLA Lungs: Other (DECREASED AT BASES) Heart: Regular rate, Normal S1, Normal S2 Abdomen: Normal bowel sounds, Other (TENSE) Extremities: No clubbing Skin: No breakdown Neuro: Normal speech Psych/Mental Status: Other (CONFUSED) MUSCULOSKELETAL: No deformity, No swelling Vitals VITALS Vital Signs Date Time Temp Pulse Resp B/P (MAP) Pulse Ox O2 Delivery O2 Flow Rate FiO2 12/27/18 09:37 17 Room Air 12/27/18 07:00 98.1 56 125/46 (72 92 98.1 Labs Labs Laboratory Tests Test 12/26/18 13:25 12/26/18 14:45 12/26/18 14:57 12/26/18 17:13 White Blood Count 3.7 x10^3/uL (4.0-11.0) Red Blood Count 3.12 x10^6/uL (3.50-5.40) Hemoglobin 9.6 g/dL (12.0-15.5) Hematocrit 29.4 % (36.0-47.0) Mean Corpuscular Volume 94 fL (79-100) Mean Corpuscular Hemoglobin 31 pg (25-35) Mean Corpuscular Hemoglobin Concent 33 g/dL (31-37) Red Cell Distribution Width 19.4 % (11.5-14.5) Platelet Count 64 x10^3/uL (140-400) Neutrophils (%) (Auto) 66 % (31-73) Lymphocytes (%) (Auto) 17 % (24-48) Monocytes (%) (Auto) 11 % (0-9) Eosinophils (%) (Auto) 4 % (0-3) Basophils (%) (Auto) 1 % (0-3) Neutrophils # (Auto) 2.5 x10^3uL (1.8-7.7) Lymphocytes # (Auto) 0.6 x10^3/uL (1.0-4.8) Monocytes # (Auto) 0.4 x10^3/uL (0.0-1.1) Eosinophils # (Auto) 0.1 x10^3/uL (0.0-0.7) Basophils # (Auto) 0.1 x10^3/uL (0.0-0.2) Prothrombin Time 19.0 SEC (11.7-14.0) Prothromb Time International Ratio 1.6 (0.8-1.1) Sodium Level 142 mmol/L (136-145) Potassium Level 3.8 mmol/L (3.5-5.1) Chloride Level 106 mmol/L (98-107) Carbon Dioxide Level 27 mmol/L (21-32) Anion Gap 9 (6-14) Blood Urea Nitrogen 25 mg/dL (7-20) Creatinine 4.7 mg/dL (0.6-1.0) Estimated GFR (Cockcroft-Gault) 9.1 BUN/Creatinine Ratio 5 (6-20) Glucose Level 203 mg/dL (70-99) Lactic Acid Level 1.9 mmol/L (0.4-2.0) Calcium Level 8.0 mg/dL (8.5-10.1) Magnesium Level 1.8 mg/dL (1.8-2.4) Total Bilirubin 0.6 mg/dL (0.2-1.0) Aspartate Amino Transf (AST/SGOT) 25 U/L (15-37) Alanine Aminotransferase (ALT/SGPT) 16 U/L (14-59) Alkaline Phosphatase 165 U/L (46-116) Creatine Kinase 38 U/L (26-192) Troponin I Quantitative 0.043 ng/mL (0.000-0.055) Total Protein 5.6 g/dL (6.4-8.2) Albumin 1.7 g/dL (3.4-5.0) Albumin/Globulin Ratio 0.4 (1.0-1.7) Glucose (Fingerstick) 149 mg/dL (70-99) 151 mg/dL (70-99) Urine Collection Type U cath Urine Color Red Urine Clarity Turbid Urine pH 7.0 Urine Specific [place] 1.015 Urine Protein >=300 mg/dL (NEG-TRACE) Urine Glucose (UA) Negative mg/dL (NEG) Urine Ketones (Stick) Negative mg/dL (NEG) Urine Blood Large (NEG) Urine Nitrite Positive (NEG) Urine Bilirubin Negative (NEG) Urine Urobilinogen Dipstick 0.2 mg/dL (0.2 mg/dL) Urine Leukocyte Esterase Large (NEG) Urine RBC 3-5 /HPF (0-2) Urine WBC Tntc /HPF (0-4) Urine Bacteria Moderate /HPF (0-FEW) Test 12/26/18 19:23 12/27/18 07:16 12/27/18 12:16 Glucose (Fingerstick) 207 mg/dL (70-99) 251 mg/dL (70-99) 265 mg/dL (70-99) Laboratory Tests Test 12/26/18 13:25 12/26/18 14:45 12/26/18 14:57 12/26/18 17:13 White Blood Count 3.7 x10^3/uL (4.0-11.0) Red Blood Count 3.12 x10^6/uL (3.50-5.40) Hemoglobin 9.6 g/dL (12.0-15.5) Hematocrit 29.4 % (36.0-47.0) Mean Corpuscular Volume 94 fL (79-100) Mean Corpuscular Hemoglobin 31 pg (25-35) Mean Corpuscular Hemoglobin Concent 33 g/dL (31-37) Red Cell Distribution Width 19.4 % (11.5-14.5) Platelet Count 64 x10^3/uL (140-400) Neutrophils (%) (Auto) 66 % (31-73) Lymphocytes (%) (Auto) 17 % (24-48) Monocytes (%) (Auto) 11 % (0-9) Eosinophils (%) (Auto) 4 % (0-3) Basophils (%) (Auto) 1 % (0-3) Neutrophils # (Auto) 2.5 x10^3uL (1.8-7.7) Lymphocytes # (Auto) 0.6 x10^3/uL (1.0-4.8) Monocytes # (Auto) 0.4 x10^3/uL (0.0-1.1) Eosinophils # (Auto) 0.1 x10^3/uL (0.0-0.7) Basophils # (Auto) 0.1 x10^3/uL (0.0-0.2) Prothrombin Time 19.0 SEC (11.7-14.0) Prothromb Time International Ratio 1.6 (0.8-1.1) Sodium Level 142 mmol/L (136-145) Potassium Level 3.8 mmol/L (3.5-5.1) Chloride Level 106 mmol/L (98-107) Carbon Dioxide Level 27 mmol/L (21-32) Anion Gap 9 (6-14) Blood Urea Nitrogen 25 mg/dL (7-20) Creatinine 4.7 mg/dL (0.6-1.0) Estimated GFR (Cockcroft-Gault) 9.1 BUN/Creatinine Ratio 5 (6-20) Glucose Level 203 mg/dL (70-99) Lactic Acid Level 1.9 mmol/L (0.4-2.0) Calcium Level 8.0 mg/dL (8.5-10.1) Magnesium Level 1.8 mg/dL (1.8-2.4) Total Bilirubin 0.6 mg/dL (0.2-1.0) Aspartate Amino Transf (AST/SGOT) 25 U/L (15-37) Alanine Aminotransferase (ALT/SGPT) 16 U/L (14-59) Alkaline Phosphatase 165 U/L (46-116) Creatine Kinase 38 U/L (26-192) Troponin I Quantitative 0.043 ng/mL (0.000-0.055) Total Protein 5.6 g/dL (6.4-8.2) Albumin 1.7 g/dL (3.4-5.0) Albumin/Globulin Ratio 0.4 (1.0-1.7) Glucose (Fingerstick) 149 mg/dL (70-99) 151 mg/dL (70-99) Urine Collection Type U cath Urine Color Red Urine Clarity Turbid Urine pH 7.0 Urine Specific [place] 1.015 Urine Protein >=300 mg/dL (NEG-TRACE) Urine Glucose (UA) Negative mg/dL (NEG) Urine Ketones (Stick) Negative mg/dL (NEG) Urine Blood Large (NEG) Urine Nitrite Positive (NEG) Urine Bilirubin Negative (NEG) Urine Urobilinogen Dipstick 0.2 mg/dL (0.2 mg/dL) Urine Leukocyte Esterase Large (NEG) Urine RBC 3-5 /HPF (0-2) Urine WBC Tntc /HPF (0-4) Urine Bacteria Moderate /HPF (0-FEW) Test 12/26/18 19:23 12/27/18 07:16 12/27/18 12:16 Glucose (Fingerstick) 207 mg/dL (70-99) 251 mg/dL (70-99) 265 mg/dL (70-99) Assessment/Plan Assessment/Plan IMP HYPOTENSION CHRONIC LIVER DZ ASCITES ANEMIA ESRD MALNUTRITION RIGHT BKA STUMP WOUND PANCYTOPENIA DUE TO LIVER DISEASE ENCEPHALOPATHY PLAN WOUND CARE ANTIBIOTICS ARANESP PARACENTESIS SUGGEST SPA PRIOR TO TAP HD TTS OR SOONER IF NEEDED OPAL RUBI MD December 27, 2018 12:27
--- NOTE | 2018-12-27 13:05 | CONS ---
DATE OF CONSULTATION: 12/27/2018 REFERRING PHYSICIAN: Dr. Rosa Maria Cuellar. REASON FOR CONSULTATION: Chronic wound, right BKA. HISTORY OF PRESENT ILLNESS: This patient is a 73-year-old female with a history of diabetes mellitus, cirrhosis and chronic kidney disease, on hemodialysis, who was sent to the ER after she became unresponsive and hypotensive during dialysis. She improved with IV fluids. WBC count was 3.7. Lactic acid was 1.9 and glucose 203. A urinalysis was suggestive of infection. She was given one time dose of ceftriaxone. The patient also has a history of peripheral arterial disease and chronic right foot wound for which she underwent a below-knee amputation on 10/21/2018. The stump later dehisced and failed to heal. A revision or above-knee amputation was recommended by Vascular, but she and her family had refused. PAST MEDICAL HISTORY: History of urinary tract infections with growth of E. coli and Enterococcus penicillin sensitive, history of pseudomonas pansensitive wound infection, chronic kidney disease, on hemodialysis via AV fistula; peripheral arterial disease, cirrhosis with ascites, diabetes mellitus, cataracts, cerebrovascular accident, peripheral neuropathy, congestive heart failure, hyperlipidemia, hypothyroidism, hypertension, COPD, asthma, oxygen supplementation as needed for sleep apnea, obesity, GERD, arthritis, carpal tunnel syndrome, depression, anxiety, and pancytopenia. PAST SURGICAL HISTORY: Right below knee amputation 10/21/2018, cataract extraction, paracentesis, hysterectomy, and AV fistula creation. SOCIAL HISTORY: The patient lives in a longterm. She was on hospice prior to admission. She is . Former smoker. FAMILY HISTORY: Diabetes. ALLERGIES: ADHESIVE. MEDICATIONS: Reviewed on OCT. She received one time dose of ceftriaxone in the ER. REVIEW OF SYSTEMS: The patient says that she is feeling alright. She denies fevers. She feels a little cold though and is requesting to be covered up. She denies headache, nasal/sinus congestion or sore throat. Denies shortness of air, cough, or chest discomfort. Denies nausea, vomiting or diarrhea. She says she does not like it at the longterm and does not feel like she is well taken care of. She has administered that visits. PHYSICAL EXAMINATION: VITAL SIGNS: Temperature 98.1, blood pressure 125/46, heart rate 56, respiratory rate 17, pulse oximetry 92% on room air, and BMI 33. GENERAL: The patient is slightly propped up in bed, resting quietly, arouses easily to name. HEENT: Pupils equally round, reactive. Normal conjunctivae. Oral cavity: Pharynx pink and moist. Dentures are in place. NECK: Supple. LUNGS: Clear to auscultation. HEART: S1, S2. ABDOMEN: Mildly distended with ascites. Soft and nontender with bowel sounds present. She has a hernia. EXTREMITIES: No gross edema or cyanosis. Right BKA stump wound mildly erythematous with strong malodor and nonviable tissue and drainage. Right AV fistula is unremarkable. SKIN: Warm without generalized rash. NEUROLOGIC: Arouses easily to name and responds appropriately. LABORATORY DATA: Recent WBC 3.7, hemoglobin 9.6, and platelets 64,000. Sodium is 142, potassium 3.8, creatinine 4.7, BUN 25, and glucose 203. Total bilirubin is 0.6. AST is 25 and ALT. Troponin is 0.043. Albumin is 1.7. Urinalysis showed wbc's too numerous to count, large leukocyte esterase, positive nitrite with moderate bacteria. Urine and blood cultures are pending. MRSA screen is pending. Chest x-ray shows stable suspected left lower lobe atelectasis or infiltrate; stable pulmonary congestion; stable enlarged cardiac silhouette. Anaerobic-aerobic wound culture pending. IMPRESSION: 1. Infected nonhealing right below-knee stump. 2. Pyuria. 3. Hypotension, responsive to IV fluids. 4. Pancytopenia. 5. Cirrhosis with ascites. 6. Chronic kidney disease, on hemodialysis. 7. Diabetes mellitus type 2 with peripheral neuropathy. 8. Peripheral arterial disease. PLAN: Dose of Zosyn. She needs debridement. A revision/AKA was recommended in the past, but she had declined. She wants to talk to her family about what to do. Wound care team has been consulted, awaiting culture results. Thank you, Dr. Cuellar, for asking us to participate in this patient's care. Should you have further questions or concerns, please call. MARTIN ALONZO MD DR: RITIKA/susannah JOB#: [id number] / [id number]
--- NOTE | 2018-12-27 13:42 | PDOC2 ---
GI CONSULT Reason For Consult: End Stage Liver Disease HPI: HPI: Cecily Douglass is a 73 years old female patient with history of multiple co morbidities including hypertension,hyperlipidemia,diabetes mellitus, hypothyroidism,congestive heart failure,cerebrovascular accidents, chronic obstructive pulmonary disease,obstructive sleep apnea, decompensated end stage liver disease ( ? BILLINGS) complicated by ascites and encephalopathy, end stage renal disease on HD and peripheral vascular disease complicated by non healing wound in the leg s/p below-knee amputation on 10/21/2018. A revision of above- knee amputation was recommended for infected wound but both patient and her family had refused. Patient is currently admitted after she was brought to ER with concern of unresponsiveness while on HD. Patient could not tell how she felt at time of the event. She currently denies acute symptoms except abdominal distension. She reports she is passing both gas and stool. o nausea, vomiting or hematemesis. No melena or hematochezia. No fever, chills or sweating. No chest pain, sob or PND. EGD (Dr. Nuno) in 2006 w/ single non-bleeding ulcer. No record of colonoscopy. Has cancelled several office visits, also no-showed once. FH: Family History: DM Social History: ALCOHOL: none Drugs: None ROS: GEN: Denies fevers, chills, sweats HEENT: Denies blurred vision, sore throat CV: Denies chest pain RESP: Denies shortness of air, cough GI: Per HPI : Denies hematuria, dysuria ENDO: Denies weight changes NEURO: Denies confusion, dizziness MSK: Denies weakness, joint pain/swelling SKIN: Denies jaundice, pruritus Vitals: Vitals: Vital Signs Date Time Temp Pulse Resp B/P (MAP) Pulse Ox O2 Delivery O2 Flow Rate FiO2 12/27/18 11:00 98.3 60 16 136/46 (76) 94 Room Air 98.3 Labs: Labs: Laboratory Tests Test 12/26/18 14:45 12/26/18 14:57 12/26/18 17:13 12/26/18 19:23 Glucose (Fingerstick) 149 mg/dL (70-99) 151 mg/dL (70-99) 207 mg/dL (70-99) Urine Collection Type U cath Urine Color Red Urine Clarity Turbid Urine pH 7.0 Urine Specific [place] 1.015 Urine Protein >=300 mg/dL (NEG-TRACE) Urine Glucose (UA) Negative mg/dL (NEG) Urine Ketones (Stick) Negative mg/dL (NEG) Urine Blood Large (NEG) Urine Nitrite Positive (NEG) Urine Bilirubin Negative (NEG) Urine Urobilinogen Dipstick 0.2 mg/dL (0.2 mg/dL) Urine Leukocyte Esterase Large (NEG) Urine RBC 3-5 /HPF (0-2) Urine WBC Tntc /HPF (0-4) Urine Bacteria Moderate /HPF (0-FEW) Test 12/27/18 07:16 12/27/18 12:16 Glucose (Fingerstick) 251 mg/dL (70-99) 265 mg/dL (70-99) Allergies: Coded Allergies: adhesive (Verified Allergy, Intermediate, Rash, 10/15/18) TAPE Medications: Current Medications Medications (Trade) Dose Ordered Sig/Vijay Route PRN Reason Start Time Stop Time Status Last Admin Dose Admin Ceftriaxone Sodium (Rocephin) 1 gm 1X ONCE IVP 12/26/18 15:00 12/26/18 15:01 DC 12/26/18 15:38 Albumin Human 250 ml @ 62.5 mls/hr 1X ONCE IV 12/26/18 15:00 12/26/18 18:59 DC 12/26/18 15:39 Sodium Chloride 500 ml @ 500 mls/hr 1X ONCE IV 12/26/18 15:00 12/26/18 15:59 DC 12/26/18 15:39 Aspirin (Ecotrin) 325 mg DAILYWBKFT PO 12/27/18 08:00 12/27/18 08:40 Buspirone HCl (Buspar) 10 mg TIDWMEALS PO 12/26/18 17:00 12/27/18 12:33 Diclofenac Sodium (Voltaren) 1 ronel BID TP 12/26/18 21:00 12/27/18 08:36 Gabapentin (Neurontin) 100 mg DAILY PO 12/27/18 09:00 12/27/18 08:40 Acetaminophen/ Hydrocodone Bitart (Lortab /325) 2 tab PRN Q6HRS PRN PO PAIN 12/26/18 17:00 12/27/18 08:37 Insulin Glargine (Lantus) 15 units DAILY SQ 12/27/18 09:00 12/27/18 08:46 Lactobacillus Rhamnosus (Culturelle) 1 cap BID PO 12/26/18 21:00 12/27/18 08:38 Levothyroxine Sodium (Synthroid) 125 mcg DAILY06 PO 12/27/18 06:00 12/27/18 05:41 Rifaximin (Xifaxan) 550 mg Q12HR PO 12/26/18 21:00 12/27/18 08:40 Sertraline HCl (Zoloft) 75 mg DAILY PO 12/27/18 09:00 12/27/18 08:40 Sevelamer Carbonate (Renvela) 800 mg TIDWMEALS PO 12/26/18 17:00 12/27/18 12:33 Calcium Acetate (Phoslo) 667 mg TIDWMEALS PO 12/26/18 17:00 12/27/18 12:33 Meclizine HCl (Antivert) 25 mg TID PO 12/26/18 21:00 12/27/18 08:38 Multivitamins (Thera M Plus) 1 tab DAILY PO 12/27/18 09:00 12/27/18 08:39 Tizanidine HCl (Zanaflex) 4 mg PRN BID PRN PO MUSCLE SPASMS 12/26/18 17:00 12/26/18 20:29 Pantoprazole Sodium (Protonix) 40 mg DAILYAC PO 12/27/18 07:30 12/27/18 08:40 PE: GEN: NAD HEENT: Atraumatic, PERRLA LUNGS: CTAB HEART: Has systolic murmur. ABD: Abdomen is distended with visible bowel loops. There was evidence of moderate hernia that was reducible on exam. No guarding or rebound tenderness. EXTREMITY: S/p above knee amputation. There was evidence of open wound with area of necrosis. SKIN: No rashes, no jaundice NEURO/PSYCH: A & O 3 A/P: A/P: A 73 years old female patient with history of multiple co morbidities including hypertension,hyperlipidemia,diabetes mellitus, hypothyroidism,congestive heart failure,cerebrovascular accidents, chronic obstructive pulmonary disease,obstructive sleep apnea, decompensated end stage liver disease ( ? BILLINGS) complicated by ascites and encephalopathy, end stage renal disease on HD and peripheral vascular disease complicated by non healing wound in the leg s/p below-knee amputation on 10/21/2018. A revision of above-knee amputation was recommended for infected wound but both patient and her family had refused. Patient currently admitted after she was brought for non responsiveness likely from hypotension in setting of HD. * End stage liver disease:' High MELD score ( 25). Not an ideal candidate for OLT. * Abdominal dispersion: Visible bowel loops. No guarding or rebound tenderness. Reducible hernia. Please obtain KUB. * HCC screening: CT 12/06/2018 notable for nodular liver with low-attenuation lesions involving the inferior aspect of the right hepatic lobe. She needs to follow up as out patient with for another imaging in three months preferably with Eovist enhanced MRI to ensure stability of the lesions. * Hepatic encephalopathy: Stable at this time. I would hold on lactulose at this time with bowel distension on exam. May use miralax to titrate 3-4 bowel movement a day. Continue with [employer] Xifaxan. * Fluid management: Patient had refractory ascites in the past requiring parac entesis ( last on 12/07 when 4.5 L was removed). May continue to have paracentesis as needed. Low sodium diets ( <2 gram a day). * Esophageal varices surveillance: Needs to have EGD for surveillance.Defer the timing to . * Anemia: No overt bleeding at this time. * Infected wound: S/p above knee amputation. Patient advised to follow up with surgery for debridement /revision. GI available for any Q's. Thank you for involving us in the care of this interesting patient. JAVON FAUST MD December 27, 2018 13:42
--- NOTE | 2018-12-27 14:49 | PDOC ---
PROGRESS NOTES Chief Complaint Chief Complaint symptomatic hypotension hypotension on ESRD, at dialysis chronic liver disease severe malnutrition chronic RLE wound, poor wound healing with cellulits, ID History of Present Illness History of Present Illness ID consult rec debridement and IV abx, will follow, wound on RLE bp better renal following DNR Vitals Vitals Vital Signs Date Time Temp Pulse Resp B/P (MAP) Pulse Ox O2 Delivery O2 Flow Rate FiO2 12/27/18 11:00 98.3 60 16 136/46 (76) 94 Room Air 98.3 Physical Exam General: Cooperative, mild distress Heart: Regular rate, Normal S1, Normal S2 Lungs: Clear Abdomen: Normal bowel sounds, Other (TENSE) Extremities: No clubbing Skin: No breakdown Labs LABS Laboratory Tests Test 12/26/18 14:57 12/26/18 17:13 12/26/18 19:23 12/27/18 07:16 Urine Collection Type U cath Urine Color Red Urine Clarity Turbid Urine pH 7.0 Urine Specific [place] 1.015 Urine Protein >=300 mg/dL (NEG-TRACE) Urine Glucose (UA) Negative mg/dL (NEG) Urine Ketones (Stick) Negative mg/dL (NEG) Urine Blood Large (NEG) Urine Nitrite Positive (NEG) Urine Bilirubin Negative (NEG) Urine Urobilinogen Dipstick 0.2 mg/dL (0.2 mg/dL) Urine Leukocyte Esterase Large (NEG) Urine RBC 3-5 /HPF (0-2) Urine WBC Tntc /HPF (0-4) Urine Bacteria Moderate /HPF (0-FEW) Glucose (Fingerstick) 151 mg/dL (70-99) 207 mg/dL (70-99) 251 mg/dL (70-99) Test 12/27/18 12:16 Glucose (Fingerstick) 265 mg/dL (70-99) Assessment and Plan Assessmemt and Plan Problems Medical Problems: (1) Altered level of consciousness Status: Acute (2) Amputation stump infection Status: Acute (3) Anemia Status: Acute (4) Chronic kidney disease with end stage renal failure on dialysis Status: Acute (5) Hypoalbuminemia Status: Acute (6) Hypotension Status: Acute (7) Leukopenia Status: Acute (8) Uncontrolled diabetes mellitus Status: Acute (9) UTI (urinary tract infection) Status: Acute Comment Review of Relevant I have reviewed the following items karyn (where applicable) has been applied. Labs Laboratory Tests Test 12/26/18 13:25 12/26/18 14:45 12/26/18 14:57 12/26/18 17:13 White Blood Count 3.7 x10^3/uL (4.0-11.0) Red Blood Count 3.12 x10^6/uL (3.50-5.40) Hemoglobin 9.6 g/dL (12.0-15.5) Hematocrit 29.4 % (36.0-47.0) Mean Corpuscular Volume 94 fL (79-100) Mean Corpuscular Hemoglobin 31 pg (25-35) Mean Corpuscular Hemoglobin Concent 33 g/dL (31-37) Red Cell Distribution Width 19.4 % (11.5-14.5) Platelet Count 64 x10^3/uL (140-400) Neutrophils (%) (Auto) 66 % (31-73) Lymphocytes (%) (Auto) 17 % (24-48) Monocytes (%) (Auto) 11 % (0-9) Eosinophils (%) (Auto) 4 % (0-3) Basophils (%) (Auto) 1 % (0-3) Neutrophils # (Auto) 2.5 x10^3uL (1.8-7.7) Lymphocytes # (Auto) 0.6 x10^3/uL (1.0-4.8) Monocytes # (Auto) 0.4 x10^3/uL (0.0-1.1) Eosinophils # (Auto) 0.1 x10^3/uL (0.0-0.7) Basophils # (Auto) 0.1 x10^3/uL (0.0-0.2) Prothrombin Time 19.0 SEC (11.7-14.0) Prothromb Time International Ratio 1.6 (0.8-1.1) Sodium Level 142 mmol/L (136-145) Potassium Level 3.8 mmol/L (3.5-5.1) Chloride Level 106 mmol/L (98-107) Carbon Dioxide Level 27 mmol/L (21-32) Anion Gap 9 (6-14) Blood Urea Nitrogen 25 mg/dL (7-20) Creatinine 4.7 mg/dL (0.6-1.0) Estimated GFR (Cockcroft-Gault) 9.1 BUN/Creatinine Ratio 5 (6-20) Glucose Level 203 mg/dL (70-99) Lactic Acid Level 1.9 mmol/L (0.4-2.0) Calcium Level 8.0 mg/dL (8.5-10.1) Magnesium Level 1.8 mg/dL (1.8-2.4) Total Bilirubin 0.6 mg/dL (0.2-1.0) Aspartate Amino Transf (AST/SGOT) 25 U/L (15-37) Alanine Aminotransferase (ALT/SGPT) 16 U/L (14-59) Alkaline Phosphatase 165 U/L (46-116) Creatine Kinase 38 U/L (26-192) Troponin I Quantitative 0.043 ng/mL (0.000-0.055) Total Protein 5.6 g/dL (6.4-8.2) Albumin 1.7 g/dL (3.4-5.0) Albumin/Globulin Ratio 0.4 (1.0-1.7) Glucose (Fingerstick) 149 mg/dL (70-99) 151 mg/dL (70-99) Urine Collection Type U cath Urine Color Red Urine Clarity Turbid Urine pH 7.0 Urine Specific [place] 1.015 Urine Protein >=300 mg/dL (NEG-TRACE) Urine Glucose (UA) Negative mg/dL (NEG) Urine Ketones (Stick) Negative mg/dL (NEG) Urine Blood Large (NEG) Urine Nitrite Positive (NEG) Urine Bilirubin Negative (NEG) Urine Urobilinogen Dipstick 0.2 mg/dL (0.2 mg/dL) Urine Leukocyte Esterase Large (NEG) Urine RBC 3-5 /HPF (0-2) Urine WBC Tntc /HPF (0-4) Urine Bacteria Moderate /HPF (0-FEW) Test 12/26/18 19:23 12/27/18 07:16 12/27/18 12:16 Glucose (Fingerstick) 207 mg/dL (70-99) 251 mg/dL (70-99) 265 mg/dL (70-99) Laboratory Tests Test 12/26/18 14:57 12/26/18 17:13 12/26/18 19:23 12/27/18 07:16 Urine Collection Type U cath Urine Color Red Urine Clarity Turbid Urine pH 7.0 Urine Specific [place] 1.015 Urine Protein >=300 mg/dL (NEG-TRACE) Urine Glucose (UA) Negative mg/dL (NEG) Urine Ketones (Stick) Negative mg/dL (NEG) Urine Blood Large (NEG) Urine Nitrite Positive (NEG) Urine Bilirubin Negative (NEG) Urine Urobilinogen Dipstick 0.2 mg/dL (0.2 mg/dL) Urine Leukocyte Esterase Large (NEG) Urine RBC 3-5 /HPF (0-2) Urine WBC Tntc /HPF (0-4) Urine Bacteria Moderate /HPF (0-FEW) Glucose (Fingerstick) 151 mg/dL (70-99) 207 mg/dL (70-99) 251 mg/dL (70-99) Test 12/27/18 12:16 Glucose (Fingerstick) 265 mg/dL (70-99) Microbiology 12/26/18 Blood Culture - Preliminary, Resulted NO GROWTH AFTER 1 DAY Medications Current Medications Ceftriaxone Sodium (Rocephin) 1 gm 1X ONCE IVP Last administered on 12/26/18 15:38; Start 12/26/18 at 15:00; Stop 12/26/18 at 15:01; Status DC Albumin Human 250 ml @ 62.5 mls/hr 1X ONCE IV Last administered on 12/26/18at 15:39; Start 12/26/18 at 15:00; Stop 12/26/18 at 18:59; Status DC Sodium Chloride 500 ml @ 500 mls/hr 1X ONCE IV Last administered on 12/26/18at 15:39; Start 12/26/18 at 15:00; Stop 12/26/18 at 15:59; Status DC Aspirin (Ecotrin) 325 mg DAILYWBKFT PO Last administered on 12/27/18at 08:40; Start 12/27/18 at 08:00 Buspirone HCl (Buspar) 10 mg TIDWMEALS PO Last administered on 12/27/18at 12:33; Start 12/26/18 at 17:00 Diclofenac Sodium (Voltaren) 1 ronel BID TP Last administered on 12/27/18at 08:36; Start 12/26/18 at 21:00 Gabapentin (Neurontin) 100 mg DAILY PO Last administered on 12/27/18at 08:40; Start 12/27/18 at 09:00 Acetaminophen/ Hydrocodone Bitart (Lortab 5/325) 2 tab PRN Q6HRS PRN PO PAIN Last administered on 12/27/18 08:37; Start 12/26/18 at 17:00 Insulin Glargine (Lantus) 15 units DAILY SQ Last administered on 12/27/18 08:46; Start 12/27/18 at 09:00 Lactobacillus Rhamnosus (Culturelle) 1 cap BID PO Last administered on 12/27/18 08:38; Start 12/26/18 at 21:00 Lactulose (Lactulose) 10 gm PRN TID PRN PO CONSTIPATION; Start 12/26/18 at 17:00 Levothyroxine Sodium (Synthroid) 125 mcg DAILY06 PO Last administered on 12/27/18 05:41; Start 12/27/18 at 06:00 Lorazepam (Ativan) 0.5 mg PRN Q6HRS PRN PO ANXIETY / AGITATION; Start 12/26/18 at 17:00 Metoprolol Succinate (Toprol Xl) 25 mg DAILY PO ; Start 12/27/18 at 09:00 Rifaximin (Xifaxan) 550 mg Q12HR PO Last administered on 12/27/18 08:40; Start 12/26/18 at 21:00 Sertraline HCl (Zoloft) 75 mg DAILY PO Last administered on 12/27/18 08:40; Start 12/27/18 at 09:00 Sevelamer Carbonate (Renvela) 800 mg TIDWMEALS PO Last administered on 12/27/18 12:33; Start 12/26/18 at 17:00 Calcium Acetate (Phoslo) 667 mg TIDWMEALS PO Last administered on 12/27/18 12:33; Start 12/26/18 at 17:00 Meclizine HCl (Antivert) 25 mg TID PO Last administered on 12/27/18 08:38; Start 12/26/18 at 21:00 Non-Formulary Medication (Melatonin ) 6 mg QHS PO ; Start 12/26/18 at 21:00; Status UNV Multivitamins (Thera M Plus) 1 tab DAILY PO Last administered on 12/27/18at 08:39; Start 12/27/18 at 09:00 Non-Formulary Medication (Ondansetron Hcl (Zofran)) 1 tab Q6HRS PO ; Start 12/26/18 at 18:00; Status UNV Tizanidine HCl (Zanaflex) 4 mg PRN BID PRN PO MUSCLE SPASMS Last administered on 12/26/18at 20:29; Start 12/26/18 at 17:00 Pantoprazole Sodium (Protonix) 40 mg DAILYAC PO Last administered on 12/27/18at 08:40; Start 12/27/18 at 07:30 Piperacillin Sod/ Tazobactam Sod (Zosyn Per Pharmacy) 1 each PRN DAILY PRN MC SEE COMMENTS; Start 12/27/18 at 11:45 Piperacillin Sod/ Tazobactam Sod 2.25 gm/Sodium Chloride 50 ml @ 100 mls/hr Q8HRS IV ; Start 12/27/18 at 13:00 Darbepoetin Brandan (Aranesp) 60 mcg WEEKLYHS SQ ; Start 12/27/18 at 21:00 Active Scripts Active Augmentin 875-125 Tablet (Amoxicillin/Potassium Clav) 1 Each Tablet 1 Tab PO BID 10 Days Culturelle (Lactobacillus Rhamnosus Gg) 1 Each Cap.sprink 1 Cap PO BID 10 Days [Pantoprazole] 40 MG Tablet. 40 Mg PO DAILYAC 30 Days Xifaxan (Rifaximin) 550 Mg Tablet 550 Mg PO Q12HR 30 Days Ativan (Lorazepam) 0.5 Mg Tablet 0.5 Mg PO PRN Q6HRS PRN 6 Days Hydrocodone-Apap 5-325 (Hydrocodone Bit/Acetaminophen) 1 Each Tablet 2 Tab PO PRN Q6HRS PRN 6 Days Zofran (Ondansetron Hcl) 4 Mg Tablet 1 Tab PO Q6HRS Lantus Solostar (Insulin Glargine,Hum.rec.anlog) 100 Unit/1 Ml Insuln.pen 15 Units SQ DAILY 28 Days Lactulose 20 Gm/30 Ml Solution 10 Gm PO PRN TID PRN 10 Days Aspirin Ec (Aspirin) 325 Mg Tablet. 325 Mg PO DAILYWBKFT 30 Days Reported Melatonin 3 Mg Tablet 6 Mg PO QHS Buspirone Hcl 10 Mg Tablet 10 Mg PO TIDWMEALS Calcium Acetate 667 Mg Tablet 667 Mg PO TIDWMEALS Tizanidine Hcl 2 Mg Capsule 2 Mg PO BID PRN Meclizine Hcl 25 Mg Tablet 1 Tab PO TID Voltaren (Diclofenac Sodium) 100 Gm Gel..gram. 1 Gm TP BID Clonidine Hcl 0.2 Mg Tablet 0.2 Mg PO DAILY Gabapentin (Gabapentin) 100 Mg Capsule 100 Mg PO DAILY Zoloft (Sertraline Hcl) 50 Mg Tablet 75 Mg PO DAILY Renvela (Sevelamer Carbonate) 800 Mg Tablet 1 Tab PO TIDWMEALS Levothyroxine Sodium 175 Mcg Tablet 125 Mcg PO DAILYAC Dialyvite [place] D Tablet (Multivitamin, Min Cmb#25/Fa/D3) 1 Each Tablet 1 Each PO DAILY Metoprolol Succinate ( Xl ) (Metoprolol Succinate) 25 Mg Tab.er.24h 25 Mg PO DAILY Isosorbide Dinitrate 30 Mg Tablet 1 Tab PO DAILY Vitals/I & O Vital Sign - Last 24 Hours 12/26/18 12/26/18 12/26/18 12/26/18 15:06 15:21 15:36 15:51 Pulse 50 50 52 52 B/P (MAP) 79/37 (51) 83/40 (54) 91/43 (59) 91/42 (58) 12/26/18 12/26/18 12/26/18 12/26/18 16:10 16:45 17:10 17:20 Temp 97.6 97.6 Pulse 56 50 58 Resp 17 B/P (MAP) 100/54 (69) 92/39 (56) 110/38 (62) Pulse Ox 98 O2 Delivery Room Air Room Air 12/26/18 12/26/18 12/26/18 12/27/18 19:10 20:00 23:48 03:41 Temp 97.6 98.1 98.3 97.6 98.1 98.3 Pulse 57 53 55 Resp 18 16 16 B/P (MAP) 135/68 (90) 145/45 (78) 113/39 (63) Pulse Ox 96 92 92 O2 Delivery Room Air Room Air Room Air Room Air 12/27/18 12/27/18 12/27/18 12/27/18 07:00 08:00 08:37 09:37 Temp 98.1 98.1 Pulse 56 Resp 18 2 17 B/P (MAP) 125/46 (72) Pulse Ox 92 O2 Delivery Room Air Room Air Room Air Room Air 12/27/18 11:00 Temp 98.3 98.3 Pulse 60 Resp 16 B/P (MAP) 136/46 (76) Pulse Ox 94 O2 Delivery Room Air Intake and Output 12/26/18 12/26/18 12/27/18 15:00 23:00 07:00 Intake Total 170 ml 0 ml Balance 170 ml 0 ml ROB GAMEZ MD December 27, 2018 14:49
[2018-12-27 15:00] VITALS: BP 129/37
[2018-12-27] MEDS: PIPERACILLIN/TAZOBACTAM 2.25 GM in IV NORMAL SALINE 50ML 50 ML IV SCH ×2 (16:41→21:38)
[2018-12-27] MEDS ORDERED: VANCOMYCIN 2 GM in IV NORMAL SALINE 500ML BAG 500 ML IV ONE (18:00)
--- NOTE | 2018-12-27 19:18 | NUR ---
In speaking with family and the patient today, she is hoping to go to her granddaughters home on hospice services. She started palliative care about a week ago. Her hospice nurses name is Sy Hawkins and her # [phone]. The patient had a paracentesis a few weeks ago and a large amount of fluid was removed. The pts abdomen is again distended. If a tap needs to occur, the patient and were questioning possible placement of a peritoneal drain. The patient is not sure if she wants to attempt dialysis again. Family is also requesting a palliative care consult. Patient plans to continue IV antibiotics as long as her saline lock is patent.
[2018-12-27 19:47] VITALS: BP 131/40
[2018-12-27] MEDS ORDERED: DEXTROSE 50% 25 GM / 50ML DISP.SYRIN. IV PRN (20:30)
[2018-12-27] MEDS: VANCOMYCIN PER PHARMACY MC PRN (20:31)
--- NOTE | 2018-12-27 20:31 | NUR ---
Pharmacy Vancomycin Dosing Note S:Consulted to monitor and dose vancomycin started 12/27/18. O:YIN DIAZ is a 73 year old F with Sepsis HCAP UTI CHRONIC WOUNDS . Height: 5 feet, 0 inches Weight: 77.748600 kg [place] Body Weight: 45.50 Adjusted Body Weight: 58.10 Dosing Weight: Actual Other Antibiotics: ZOSYN LABS: Last BUN: 25 Last Creatinine: 4.7 Creatinine Clearance: HD mL/min Last WBC: 3.7 Last Procalcitonin: - Tmax (past 24 hours): 98.1 Microbiology: I/O: - Drug Levels: Last level: on at Last dose given 12/27/18 at 1800 Vancomycin Dosing: Loading Dose: x1 Dosing Weight: Actual Target Trough: 15-20 A: Based on: hd status and schedule, weight, P: 1. Give Vancomycin 2000 mg IV One Time 2. Follow up Random level on 12/29/18 at 0600 3. Pharmacy will continue to monitor, follow and adjust therapy as needed. RONNIE [facility], 12/27/182030
[2018-12-27] MEDS ORDERED: DARBEPOETIN ALFA 60 MCG/0.3 ML DISP.SYRIN. SQ SCH (21:00)
[2018-12-27] MEDS: INSULIN GLARGINE 300 UNITS/3 ML INSULN.PEN. SQ SCH (21:35)
[2018-12-27] MEDS: INSULIN LISPRO 300 UNITS/3 ML INSULN.PEN. SQ SCH (21:35)
[2018-12-27 23:33] VITALS: BP 171/69
[2018-12-28] VITALS (10 sets, daily range): BP systolic 109–174; BP diastolic 40–67
[2018-12-28 04:30] LABS: HEMATOCRIT 32.9 % (36.0-47.0); HEMOGLOBIN 10.7 g/dL (12.0-15.5); RED BLOOD COUNT 3.44 x10^6/uL (3.50-5.40); RED CELL DISTRIBUTION WIDTH 19.6 % (11.5-14.5)
[2018-12-28 05:28] LABS: CALCIUM 8.1 mg/dL (8.5-10.1); CREATININE 5.9 mg/dL (0.6-1.0); POTASSIUM 3.5 mmol/L (3.5-5.1)
[2018-12-28] MEDS: LEVOTHYROXINE 125 MCG TABLET PO SCH (06:22)
[2018-12-28] MEDS: PIPERACILLIN/TAZOBACTAM 2.25 GM in IV NORMAL SALINE 50ML 50 ML IV SCH ×3 (06:22→20:09)
[2018-12-28] MEDS: ASPIRIN ENTERIC COATED 325 MG TABLET.DR. PO SCH (08:00)
[2018-12-28] MEDS: INSULIN GLARGINE 300 UNITS/3 ML INSULN.PEN. SQ SCH ×2 (08:46→20:18)
[2018-12-28] MEDS: INSULIN LISPRO 300 UNITS/3 ML INSULN.PEN. SQ SCH ×4 (08:48→20:17)
[2018-12-28] MEDS: CALCIUM ACETATE 667 MG CAPSULE PO SCH ×3 (08:57→17:00)
[2018-12-28] MEDS: GABAPENTIN 100 MG CAPSULE. PO SCH (08:58)
[2018-12-28] MEDS: SEVELAMER CARBONATE 800 MG TABLET. PO SCH ×3 (08:58→17:00)
[2018-12-28] MEDS: busPIRone 10 MG TABLET. PO SCH ×3 (08:58→17:00)
[2018-12-28] MEDS: METOPROLOL SUCC 24HR ER 25 MG TAB.ER.24H. PO SCH (09:00)
[2018-12-28] MEDS: LACTOBACILLUS RHAMNOSUS GG 1 CAPSULE. PO SCH ×2 (09:00→20:09)
[2018-12-28] MEDS: MECLIZINE HCL 12.5 MG TABLET. PO SCH ×3 (09:00→20:09)
[2018-12-28] MEDS: rifAXIMin 550 MG TABLET PO SCH ×2 (09:00→20:09)
[2018-12-28] MEDS: PANTOPRAZOLE 40 MG TABLET.DR. PO SCH (09:01)
[2018-12-28] MEDS: MULTIVITAMIN with MINERAL TABLET. PO SCH (09:01)
--- NOTE | 2018-12-28 09:01 | PDOC2 ---
PALLIATIVE CARE Palliative Care Note Palliative Care Consult requested by Dr. Cuellar to address plan of care. Medical Assessment per medical record; Assessment/Plan symptomatic hypotension hypotension on ESRD, at dialysis chronic liver disease severe malnutrition chronic RLE wound, poor wound healing Patient in IR for Paracentesis Spoke with /DAVIDSANGEETA Brown. States they have had several conversations over the weekend and she wants to go home with [facility]. (have been working with them Palliative Care) DME; Bed, Val Lift, oxygen. Will confirm plan with patient. Code Status: DNR/DNI. spoke with John PARKER who will assist with discharge plan. 1300 Spoke with [facility] and Angela granddaughter.. Plan home with Hospice tomorrow. Additional DME; BSC, Bedside table. Outside the Hospital DNR/DNI form signed. VEDA SIEGEL December 28, 2018 09:01
[2018-12-28] MEDS: SERTRALINE 50 MG TABLET. PO SCH (09:02)
[2018-12-28] MEDS: DICLOFENAC SODIUM 1% TOPICAL GEL 100GM TUBE. TP SCH ×2 (09:02→20:09)
--- NOTE | 2018-12-28 09:10 | NUR ---
Patient refused morning Aspirin medication.
--- NOTE | 2018-12-28 09:10 | PDOC ---
Infectious Disease Note Subjective Subjective Feeling alright Denies pain No F/C Had a run of V-tach earlier ROS ROS per HPI Vital Sign Vital Signs Vital Signs Date Time Temp Pulse Resp B/P (MAP) Pulse Ox O2 Delivery O2 Flow Rate FiO2 12/28/18 07:00 98.2 58 16 174/67 (102) 100 Nasal Cannula 2.0 98.2 Physical Exam PHYSICAL EXAM GENERAL: Propped up in bed, alert, eating HEENT: Pupils equally round, reactive. Normal conjunctivae. Oral cavity/phar ynx pink and moist. Dentures NECK: Supple. LUNGS: Clear to auscultation. HEART: S1, S2. ABDOMEN: Mildly distended with ascites. Soft and nontender with bowel sounds present. She has a hernia. EXTREMITIES: No gross edema or cyanosis. Right BKA stump wound mildly erythematous with strong malodor and nonviable tissue and drainage. Right AV fistula is unremarkable. LLE 2+ edema SKIN: Warm without generalized rash. NEUROLOGIC: Alert, responding appropriately PIV ok Labs Lab Laboratory Tests Test 12/27/18 12:16 12/27/18 16:52 12/27/18 19:24 12/28/18 03:53 Glucose (Fingerstick) 265 mg/dL (70-99) 336 mg/dL (70-99) 320 mg/dL (70-99) White Blood Count 4.0 x10^3/uL (4.0-11.0) Red Blood Count 3.44 x10^6/uL (3.50-5.40) Hemoglobin 10.7 g/dL (12.0-15.5) Hematocrit 32.9 % (36.0-47.0) Mean Corpuscular Volume 96 fL (79-100) Mean Corpuscular Hemoglobin 31 pg (25-35) Mean Corpuscular Hemoglobin Concent 33 g/dL (31-37) Red Cell Distribution Width 19.6 % (11.5-14.5) Platelet Count 76 x10^3/uL (140-400) Sodium Level 142 mmol/L (136-145) Potassium Level 3.5 mmol/L (3.5-5.1) Chloride Level 105 mmol/L (98-107) Carbon Dioxide Level 26 mmol/L (21-32) Anion Gap 11 (6-14) Blood Urea Nitrogen 34 mg/dL (7-20) Creatinine 5.9 mg/dL (0.6-1.0) Estimated GFR (Cockcroft-Gault) 7.0 Glucose Level 341 mg/dL (70-99) Calcium Level 8.1 mg/dL (8.5-10.1) Test 12/28/18 07:31 Glucose (Fingerstick) 265 mg/dL (70-99) Micro BLOOD CULTURE Preliminary NO GROWTH AFTER 1 DAY Objective Assessment Infected nonhealing right below knee stump. cultures pending -surgery was 10/21/2018 -h/o PSA pansensitive Pyuria -h/o E. coli and enterococcus, PCN-S Hypotension, responsive to IVF Pancytopenia/ leukopenia better Cirrhosis with ascites CKD/HD via AVF DM II w/ peripheral neuropathy PAD run V-tach Plan Plan of Care vanc and Zosyn Needs debridement. She has declined revision/AKA in past. She wants to talk to family about what to do. Wound care team has been consulted. Awaiting cultures results Monitor labs/temp Patient seen, examined, I agree with above Assessment and plan by HAND SINGER. D/W daughter at bedside MATTJOELLE Laurel REBOLLEDO December 28, 2018 09:10 MARTIN ALONZO MD December 28, 2018 13:40
[2018-12-28] MEDS ORDERED: ALBUMIN HUMAN 25% 100 ML IV ONE ×2 (10:13→10:30)
[2018-12-28] MEDS ORDERED: ALBUMIN HUMAN 25% 50 ML IV ONE (11:00)
--- NOTE | 2018-12-28 11:03 | PDOC ---
Renal-Progress Notes Subjective Notes Notes NO NEW COMPLAINTS, REMAINS SOMNOLENT History of Present Illness Hx of present illness NOT ANY DIFFERENT Vitals Vitals Vital Signs Date Time Temp Pulse Resp B/P (MAP) Pulse Ox O2 Delivery O2 Flow Rate FiO2 12/28/18 10:35 62 20 109/46 (67) 99 Room Air 12/28/18 08:00 2.0 12/28/18 07:00 98.2 98.2 Weight Weight [ ] I.O. Intake and Output Intake and Output 12/28/18 07:00 Intake Total 900 ml Balance 900 ml Intake Oral 900 ml # Voids 1 # Bowel Movements 6 Labs Labs Laboratory Tests Test 12/27/18 12:16 12/27/18 16:52 12/27/18 19:24 12/28/18 03:53 Glucose (Fingerstick) 265 mg/dL (70-99) 336 mg/dL (70-99) 320 mg/dL (70-99) White Blood Count 4.0 x10^3/uL (4.0-11.0) Red Blood Count 3.44 x10^6/uL (3.50-5.40) Hemoglobin 10.7 g/dL (12.0-15.5) Hematocrit 32.9 % (36.0-47.0) Mean Corpuscular Volume 96 fL (79-100) Mean Corpuscular Hemoglobin 31 pg (25-35) Mean Corpuscular Hemoglobin Concent 33 g/dL (31-37) Red Cell Distribution Width 19.6 % (11.5-14.5) Platelet Count 76 x10^3/uL (140-400) Sodium Level 142 mmol/L (136-145) Potassium Level 3.5 mmol/L (3.5-5.1) Chloride Level 105 mmol/L (98-107) Carbon Dioxide Level 26 mmol/L (21-32) Anion Gap 11 (6-14) Blood Urea Nitrogen 34 mg/dL (7-20) Creatinine 5.9 mg/dL (0.6-1.0) Estimated GFR (Cockcroft-Gault) 7.0 Glucose Level 341 mg/dL (70-99) Calcium Level 8.1 mg/dL (8.5-10.1) Test 12/28/18 07:31 Glucose (Fingerstick) 265 mg/dL (70-99) Micro Micro Microbiology 12/26/18 Blood Culture - Preliminary, Resulted NO GROWTH AFTER 1 DAY Review of Systems Constitutional: yes: other (CONFUSED) Physical Exam General Appearance: no apparent distress Skin: warm Respiratory: decreased breath sounds Heart: S1S2, RRR Abdomen: distension, other (ASCITES) Musculoskeletal: Osteoarthritis Assessment Assessment IMP HYPOTENSION CHRONIC LIVER DZ ASCITES ANEMIA ESRD MALNUTRITION RIGHT BKA STUMP WOUND PANCYTOPENIA DUE TO LIVER DISEASE ENCEPHALOPATHY PLAN WOUND CARE ANTIBIOTICS ARANESP PARACENTESIS SUGGEST SPA PRIOR TO TAP HD TOMORROW OPAL RUBI MD December 28, 2018 11:03
--- NOTE | 2018-12-28 11:19 | NUR ---
FACULTY CO-SIGN I have reviewed the documentation by Loly Shine student services representative, [facility]: Addendum: 12/28/18 at 1120 by KADEEM CASTREJON RN Amended: Links added.
--- NOTE | 2018-12-28 11:33 | PDOC ---
PROGRESS NOTES Chief Complaint Chief Complaint Huge ascites, status post large volume paracentesis 12/28/18-5.2 L Status post albumin 150 mL DNR Hospice candidate ESRD on dialysis-we'll stop dialysis once on hospice Anemia of ESRD symptomatic hypotension hypotension on ESRD, at dialysis chronic liver disease severe malnutrition chronic RLE wound, poor wound healing with cellulits, ID History of Present Illness History of Present Illness right BKA Left leg chronic lichenification and swelling 5.2 L paracentesis today Getting 1 50 mL abdomen total today clinical rehab liaison's at bedside Plan we'll DC to home hospice tomorrow DNR stop dialysis But Moriah wishes to continue by mouth meds while on hospice Vitals Vitals Vital Signs Date Time Temp Pulse Resp B/P (MAP) Pulse Ox O2 Delivery O2 Flow Rate FiO2 12/28/18 10:35 62 20 109/46 (67) 99 Room Air 12/28/18 08:00 2.0 12/28/18 07:00 98.2 98.2 Physical Exam Physical Exam GENERAL: Propped up in bed, alert, eating HEENT: Pupils equally round, reactive. Normal conjunctivae. Oral cavity/pharynx pink and moist. Dentures NECK: Supple. LUNGS: Clear to auscultation. HEART: S1, S2. ABDOMEN: Mildly distended with ascites. Soft and nontender with bowel sounds present. She has a hernia. EXTREMITIES: No gross edema or cyanosis. Right BKA stump wound mildly erythematous with strong malodor and nonviable tissue and drainage. Right AV fistula is unremarkable. LLE 2+ edema SKIN: Warm without generalized rash. NEUROLOGIC: Alert, responding appropriately PIV ok General: Cooperative, mild distress Heart: Regular rate, Normal S1, Normal S2 Lungs: Clear Abdomen: Normal bowel sounds, Other (TENSE) Extremities: No clubbing Skin: No breakdown Labs LABS Laboratory Tests Test 12/27/18 12:16 12/27/18 16:52 12/27/18 19:24 12/28/18 03:53 Glucose (Fingerstick) 265 mg/dL (70-99) 336 mg/dL (70-99) 320 mg/dL (70-99) White Blood Count 4.0 x10^3/uL (4.0-11.0) Red Blood Count 3.44 x10^6/uL (3.50-5.40) Hemoglobin 10.7 g/dL (12.0-15.5) Hematocrit 32.9 % (36.0-47.0) Mean Corpuscular Volume 96 fL (79-100) Mean Corpuscular Hemoglobin 31 pg (25-35) Mean Corpuscular Hemoglobin Concent 33 g/dL (31-37) Red Cell Distribution Width 19.6 % (11.5-14.5) Platelet Count 76 x10^3/uL (140-400) Sodium Level 142 mmol/L (136-145) Potassium Level 3.5 mmol/L (3.5-5.1) Chloride Level 105 mmol/L (98-107) Carbon Dioxide Level 26 mmol/L (21-32) Anion Gap 11 (6-14) Blood Urea Nitrogen 34 mg/dL (7-20) Creatinine 5.9 mg/dL (0.6-1.0) Estimated GFR (Cockcroft-Gault) 7.0 Glucose Level 341 mg/dL (70-99) Calcium Level 8.1 mg/dL (8.5-10.1) Test 12/28/18 07:31 Glucose (Fingerstick) 265 mg/dL (70-99) Review of Systems Review of Systems A 14 point ROS was completed with the following noted as positive: Other systems reviewed and negative. \CONSTITUTIONAL: No fever or chills EYES: No recent changes SKIN: No rash or itching CARDIOVASCULAR: No chest pain, syncope, palpitations, or edema RESPIRATORY: No SOB or cough GASTROINTESTINAL: No nausea, vomiting or abdominal pain NEUROLOGICAL: No headaches or weakness ENDOCRINE: No cold or heat intolerance GENITOURINARY: No urgency or frequency of urination MUSCULOSKELETAL: No back pain or joint pain LYMPHATICS: No enlarged lymph nodes PSYCHIATRIC: No anxiety or depression Assessment and Plan Assessmemt and Plan Problems Medical Problems: (1) Altered level of consciousness Status: Acute (2) Amputation stump infection Status: Acute (3) Anemia Status: Acute (4) Chronic kidney disease with end stage renal failure on dialysis Status: Acute (5) Hypoalbuminemia Status: Acute (6) Hypotension Status: Acute (7) Leukopenia Status: Acute (8) Uncontrolled diabetes mellitus Status: Acute (9) UTI (urinary tract infection) Status: Acute Comment Review of Relevant I have reviewed the following items karyn (where applicable) has been applied. Labs Laboratory Tests Test 12/26/18 13:25 12/26/18 14:45 12/26/18 14:57 12/26/18 17:13 White Blood Count 3.7 x10^3/uL (4.0-11.0) Red Blood Count 3.12 x10^6/uL (3.50-5.40) Hemoglobin 9.6 g/dL (12.0-15.5) Hematocrit 29.4 % (36.0-47.0) Mean Corpuscular Volume 94 fL (79-100) Mean Corpuscular Hemoglobin 31 pg (25-35) Mean Corpuscular Hemoglobin Concent 33 g/dL (31-37) Red Cell Distribution Width 19.4 % (11.5-14.5) Platelet Count 64 x10^3/uL (140-400) Neutrophils (%) (Auto) 66 % (31-73) Lymphocytes (%) (Auto) 17 % (24-48) Monocytes (%) (Auto) 11 % (0-9) Eosinophils (%) (Auto) 4 % (0-3) Basophils (%) (Auto) 1 % (0-3) Neutrophils # (Auto) 2.5 x10^3uL (1.8-7.7) Lymphocytes # (Auto) 0.6 x10^3/uL (1.0-4.8) Monocytes # (Auto) 0.4 x10^3/uL (0.0-1.1) Eosinophils # (Auto) 0.1 x10^3/uL (0.0-0.7) Basophils # (Auto) 0.1 x10^3/uL (0.0-0.2) Prothrombin Time 19.0 SEC (11.7-14.0) Prothromb Time International Ratio 1.6 (0.8-1.1) Sodium Level 142 mmol/L (136-145) Potassium Level 3.8 mmol/L (3.5-5.1) Chloride Level 106 mmol/L (98-107) Carbon Dioxide Level 27 mmol/L (21-32) Anion Gap 9 (6-14) Blood Urea Nitrogen 25 mg/dL (7-20) Creatinine 4.7 mg/dL (0.6-1.0) Estimated GFR (Cockcroft-Gault) 9.1 BUN/Creatinine Ratio 5 (6-20) Glucose Level 203 mg/dL (70-99) Lactic Acid Level 1.9 mmol/L (0.4-2.0) Calcium Level 8.0 mg/dL (8.5-10.1) Magnesium Level 1.8 mg/dL (1.8-2.4) Total Bilirubin 0.6 mg/dL (0.2-1.0) Aspartate Amino Transf (AST/SGOT) 25 U/L (15-37) Alanine Aminotransferase (ALT/SGPT) 16 U/L (14-59) Alkaline Phosphatase 165 U/L (46-116) Creatine Kinase 38 U/L (26-192) Troponin I Quantitative 0.043 ng/mL (0.000-0.055) Total Protein 5.6 g/dL (6.4-8.2) Albumin 1.7 g/dL (3.4-5.0) Albumin/Globulin Ratio 0.4 (1.0-1.7) Glucose (Fingerstick) 149 mg/dL (70-99) 151 mg/dL (70-99) Urine Collection Type U cath Urine Color Red Urine Clarity Turbid Urine pH 7.0 Urine Specific [place] 1.015 Urine Protein >=300 mg/dL (NEG-TRACE) Urine Glucose (UA) Negative mg/dL (NEG) Urine Ketones (Stick) Negative mg/dL (NEG) Urine Blood Large (NEG) Urine Nitrite Positive (NEG) Urine Bilirubin Negative (NEG) Urine Urobilinogen Dipstick 0.2 mg/dL (0.2 mg/dL) Urine Leukocyte Esterase Large (NEG) Urine RBC 3-5 /HPF (0-2) Urine WBC Tntc /HPF (0-4) Urine Bacteria Moderate /HPF (0-FEW) Test 12/26/18 19:23 12/26/18 22:22 12/27/18 07:16 12/27/18 12:16 Glucose (Fingerstick) 207 mg/dL (70-99) 251 mg/dL (70-99) 265 mg/dL (70-99) Nasal Screen MRSA (PCR) Negative (Negative) Test 12/27/18 16:52 12/27/18 19:24 12/28/18 03:53 12/28/18 07:31 Glucose (Fingerstick) 336 mg/dL (70-99) 320 mg/dL (70-99) 265 mg/dL (70-99) White Blood Count 4.0 x10^3/uL (4.0-11.0) Red Blood Count 3.44 x10^6/uL (3.50-5.40) Hemoglobin 10.7 g/dL (12.0-15.5) Hematocrit 32.9 % (36.0-47.0) Mean Corpuscular Volume 96 fL (79-100) Mean Corpuscular Hemoglobin 31 pg (25-35) Mean Corpuscular Hemoglobin Concent 33 g/dL (31-37) Red Cell Distribution Width 19.6 % (11.5-14.5) Platelet Count 76 x10^3/uL (140-400) Sodium Level 142 mmol/L (136-145) Potassium Level 3.5 mmol/L (3.5-5.1) Chloride Level 105 mmol/L (98-107) Carbon Dioxide Level 26 mmol/L (21-32) Anion Gap 11 (6-14) Blood Urea Nitrogen 34 mg/dL (7-20) Creatinine 5.9 mg/dL (0.6-1.0) Estimated GFR (Cockcroft-Gault) 7.0 Glucose Level 341 mg/dL (70-99) Calcium Level 8.1 mg/dL (8.5-10.1) Laboratory Tests Test 12/27/18 12:16 12/27/18 16:52 12/27/18 19:24 12/28/18 03:53 Glucose (Fingerstick) 265 mg/dL (70-99) 336 mg/dL (70-99) 320 mg/dL (70-99) White Blood Count 4.0 x10^3/uL (4.0-11.0) Red Blood Count 3.44 x10^6/uL (3.50-5.40) Hemoglobin 10.7 g/dL (12.0-15.5) Hematocrit 32.9 % (36.0-47.0) Mean Corpuscular Volume 96 fL (79-100) Mean Corpuscular Hemoglobin 31 pg (25-35) Mean Corpuscular Hemoglobin Concent 33 g/dL (31-37) Red Cell Distribution Width 19.6 % (11.5-14.5) Platelet Count 76 x10^3/uL (140-400) Sodium Level 142 mmol/L (136-145) Potassium Level 3.5 mmol/L (3.5-5.1) Chloride Level 105 mmol/L (98-107) Carbon Dioxide Level 26 mmol/L (21-32) Anion Gap 11 (6-14) Blood Urea Nitrogen 34 mg/dL (7-20) Creatinine 5.9 mg/dL (0.6-1.0) Estimated GFR (Cockcroft-Gault) 7.0 Glucose Level 341 mg/dL (70-99) Calcium Level 8.1 mg/dL (8.5-10.1) Test 12/28/18 07:31 Glucose (Fingerstick) 265 mg/dL (70-99) Microbiology 12/26/18 Blood Culture - Preliminary, Resulted NO GROWTH AFTER 1 DAY Medications Current Medications Ceftriaxone Sodium (Rocephin) 1 gm 1X ONCE IVP Last administered on 12/26/18 15:38; Start 12/26/18 at 15:00; Stop 12/26/18 at 15:01; Status DC Albumin Human 250 ml @ 62.5 mls/hr 1X ONCE IV Last administered on 12/26/18 15:39; Start 12/26/18 at 15:00; Stop 12/26/18 at 18:59; Status DC Sodium Chloride 500 ml @ 500 mls/hr 1X ONCE IV Last administered on 12/26/18 15:39; Start 12/26/18 at 15:00; Stop 12/26/18 at 15:59; Status DC Aspirin (Ecotrin) 325 mg DAILYWBKFT PO Last administered on 12/27/18at 08:40; Start 12/27/18 at 08:00 Buspirone HCl (Buspar) 10 mg TIDWMEALS PO Last administered on 12/28/18at 08:58; Start 12/26/18 at 17:00 Diclofenac Sodium (Voltaren) 1 ronel BID TP Last administered on 12/28/18at 09:02; Start 12/26/18 at 21:00 Gabapentin (Neurontin) 100 mg DAILY PO Last administered on 12/28/18at 08:58; Start 12/27/18 at 09:00 Acetaminophen/ Hydrocodone Bitart (Lortab 5325) 2 tab PRN Q6HRS PRN PO PAIN Last administered on 12/27/18 17:52; Start 12/26/18 at 17:00 Insulin Glargine (Lantus) 15 units DAILY SQ Last administered on 12/27/18at 0 8:46; Start 12/27/18 at 09:00; Stop 12/27/18 at 21:05; Status DC Lactobacillus Rhamnosus (Culturelle) 1 cap BID PO Last administered on 12/28/18 09:00; Start 12/26/18 at 21:00 Lactulose (Lactulose) 10 gm PRN TID PRN PO CONSTIPATION; Start 12/26/18 at 17:00 Levothyroxine Sodium (Synthroid) 125 mcg DAILY06 PO Last administered on 12/28/18 06:22; Start 12/27/18 at 06:00 Lorazepam (Ativan) 0.5 mg PRN Q6HRS PRN PO ANXIETY / AGITATION; Start 12/26/18 at 17:00 Metoprolol Succinate (Toprol Xl) 25 mg DAILY PO Last administered on 12/28/18 09:00; Start 12/27/18 at 09:00 Rifaximin (Xifaxan) 550 mg Q12HR PO Last administered on 12/28/18 09:00; Start 12/26/18 at 21:00 Sertraline HCl (Zoloft) 75 mg DAILY PO Last administered on 12/28/18 09:02; Start 12/27/18 at 09:00 Sevelamer Carbonate (Renvela) 800 mg TIDWMEALS PO Last administered on 12/28/18 08:58; Start 12/26/18 at 17:00 Calcium Acetate (Phoslo) 667 mg TIDWMEALS PO Last administered on 12/28/18 08:57; Start 12/26/18 at 17:00 Meclizine HCl (Antivert) 25 mg TID PO Last administered on 12/28/18 09:00; Start 12/26/18 at 21:00 Non-Formulary Medication (Melatonin ) 6 mg QHS PO ; Start 12/26/18 at 21:00; Status UNV Multivitamins (Thera M Plus) 1 tab DAILY PO Last administered on 12/28/18 09:01; Start 12/27/18 at 09:00 Non-Formulary Medication (Ondansetron Hcl (Zofran)) 1 tab Q6HRS PO ; Start 12/26/18 at 18:00; Status UNV Tizanidine HCl (Zanaflex) 4 mg PRN BID PRN PO MUSCLE SPASMS Last administered on 12/26/18at 20:29; Start 12/26/18 at 17:00 Pantoprazole Sodium (Protonix) 40 mg DAILYAC PO Last administered on 12/28/18at 09:01; Start 12/27/18 at 07:30 Piperacillin Sod/ Tazobactam Sod (Zosyn Per Pharmacy) 1 each PRN DAILY PRN MC SEE COMMENTS; Start 12/27/18 at 11:45 Piperacillin Sod/ Tazobactam Sod 2.25 gm/Sodium Chloride 50 ml @ 100 mls/hr Q8HRS IV Last administered on 12/28/18at 06:22; Start 12/27/18 at 13:00 Darbepoetin Brandan (Aranesp) 60 mcg WEEKLYHS SQ Last administered on 12/27/18at 21:33; Start 12/27/18 at 21:00 Vancomycin HCl (Vanco Per Pharmacy) 1 each PRN DAILY PRN MC SEE COMMENTS Last administered on 12/27/18at 20:31; Start 12/27/18 at 18:00 Vancomycin HCl 2 gm/Sodium Chloride 500 ml @ 250 mls/hr 1X ONCE IV Last administered on 12/27/18at 18:00; Start 12/27/18 at 18:00; Stop 12/27/18 at 19:59; Status DC Vancomycin HCl (Vancomycin Random Level) 1 each 1X ONCE MC ; Start 12/29/18 at 06:00; Stop 12/29/18 at 06:01 Insulin Glargine (Lantus) 15 units BID SQ Last administered on 12/28/18at 08:46; Start 12/27/18 at 21:15 Insulin Human Lispro (HumaLOG) 0-7 UNITS TIDACHC SQ Last administered on 12/28/18at 08:48; Start 12/27/18 at 21:00 Dextrose (Dextrose 50%-Water Syringe) 12.5 gm PRN Q15MIN PRN IV SEE COMMENTS; Start 12/27/18 at 20:30 Albumin Human 100 ml @ As Directed STK-MED ONCE IV ; Start 12/28/18 at 10:13; Stop 12/28/18 at 10:14; Status DC Albumin Human 100 ml @ 100 mls/hr 1X ONCE IV Last administered on 12/28/18at 10:41; Start 12/28/18 at 10:30; Stop 12/28/18 at 11:29; Status DC Albumin Human 50 ml @ 50 mls/hr 1X ONCE IV Last administered on 12/28/18at 11:00; Start 12/28/18 at 11:00; Stop 12/28/18 at 11:59 Active Scripts Active Augmentin 875-125 Tablet (Amoxicillin/Potassium Clav) 1 Each Tablet 1 Tab PO BID 10 Days Culturelle (Lactobacillus Rhamnosus Gg) 1 Each Cap.sprink 1 Cap PO BID 10 Days [Pantoprazole] 40 MG Tablet.dr 40 Mg PO DAILYAC 30 Days Xifaxan (Rifaximin) 550 Mg Tablet 550 Mg PO Q12HR 30 Days Ativan (Lorazepam) 0.5 Mg Tablet 0.5 Mg PO PRN Q6HRS PRN 6 Days Hydrocodone-Apap 5-325 (Hydrocodone Bit/Acetaminophen) 1 Each Tablet 2 Tab PO PRN Q6HRS PRN 6 Days Zofran (Ondansetron Hcl) 4 Mg Tablet 1 Tab PO Q6HRS Lantus Solostar (Insulin Glargine,Hum.rec.anlog) 100 Unit/1 Ml Insuln.pen 15 Units SQ DAILY 28 Days Lactulose 20 Gm/30 Ml Solution 10 Gm PO PRN TID PRN 10 Days Aspirin Ec (Aspirin) 325 Mg Tablet.dr 325 Mg PO DAILYWBKFT 30 Days Reported Melatonin 3 Mg Tablet 6 Mg PO QHS Buspirone Hcl 10 Mg Tablet 10 Mg PO TIDWMEALS Calcium Acetate 667 Mg Tablet 667 Mg PO TIDWMEALS Tizanidine Hcl 2 Mg Capsule 2 Mg PO BID PRN Meclizine Hcl 25 Mg Tablet 1 Tab PO TID Voltaren (Diclofenac Sodium) 100 Gm Gel..gram. 1 Gm TP BID Clonidine Hcl 0.2 Mg Tablet 0.2 Mg PO DAILY Gabapentin (Gabapentin) 100 Mg Capsule 100 Mg PO DAILY Zoloft (Sertraline Hcl) 50 Mg Tablet 75 Mg PO DAILY Renvela (Sevelamer Carbonate) 800 Mg Tablet 1 Tab PO TIDWMEALS Levothyroxine Sodium 175 Mcg Tablet 125 Mcg PO DAILYAC Dialyvite [place] D Tablet (Multivitamin, Min Cmb#25/Fa/D3) 1 Each Tablet 1 Each PO DAILY Metoprolol Succinate ( Xl ) (Metoprolol Succinate) 25 Mg Tab.er.24h 25 Mg PO DAILY Isosorbide Dinitrate 30 Mg Tablet 1 Tab PO DAILY Vitals/I & O Vital Sign - Last 24 Hours 12/27/18 12/27/18 12/27/18 12/27/18 15:00 17:52 18:52 19:47 Temp 98.1 97.8 98.1 97.8 Pulse 55 57 Resp 16 18 16 B/P (MAP) 129/37 (67) 131/40 (70) Pulse Ox 93 93 95 O2 Delivery Room Air Room Air Room Air Room Air 12/27/18 12/27/18 12/28/18 12/28/18 20:00 23:33 03:22 07:00 Temp 98.8 98.6 98.2 98.8 98.6 98.2 Pulse 64 63 58 Resp 18 18 16 B/P (MAP) 171/69 (103) 151/59 (89) 174/67 (102) Pulse Ox 94 94 100 O2 Delivery Room Air Room Air Room Air Nasal Cannula O2 Flow Rate 2.0 12/28/18 12/28/18 12/28/18 12/28/18 08:00 09:00 09:44 09:56 Pulse 58 58 Resp 18 B/P (MAP) 174/67 136/62 (86) Pulse Ox 98 O2 Delivery Room Air Room Air Room Air O2 Flow Rate 2.0 12/28/18 12/28/18 12/28/18 12/28/18 10:06 10:20 10:30 10:35 Pulse 61 62 67 62 Resp 18 18 18 20 B/P (MAP) 132/56 (81) 122/53 (76) 110/40 (63) 109/46 (67) Pulse Ox 97 97 99 99 O2 Delivery Room Air Room Air Room Air Room Air Intake and Output 12/27/18 12/27/18 12/28/18 14:59 22:59 06:59 Intake Total 360 ml 390 ml 150 ml Balance 360 ml 390 ml 150 ml HANNA VILLEGAS MD December 28, 2018 11:33
--- NOTE | 2018-12-28 12:41 | RAD ---
Ultrasound-guided paracentesis 12/28/2018 12:38 PM Procedure: The risks and benefits of the procedure were discussed the patient. Informed consent was obtained. A timeout procedure was performed. Sonographic evaluation of the abdomen was performed demonstrating ascites . The right lower quadrant was prepped and draped using maximum sterile barrier technique. 1% lidocaine without epinephrine was administered for local anesthesia. Real-time ultrasonographic guidance was used in passing a 5 Indonesian Yueh catheter into the fluid collection. 5.2 L of serous ascites was removed. The catheter was removed and pressure held to achieve hemostasis. A sterile dressing was applied. Impression: Successful ultrasound-guided paracentesis
--- NOTE | 2018-12-28 13:32 | NUR ---
KEITH notified pt wants to go home with [facility]. KEITH phoned and faxed clinicals to [facility]. Spoke with Jewel regarding pt's family request for DME and she will be reaching out to family to coordinate discharge. Will continue to follow.
--- NOTE | 2018-12-28 14:29 | PDOC ---
Subjective: Subjective: "I feel great." Hungry for dinner already. Objective: Objective: Stools charted. Vital Signs: Vital Signs Date Time Temp Pulse Resp B/P (MAP) Pulse Ox O2 Delivery O2 Flow Rate FiO2 12/28/18 10:35 62 20 109/46 (67) 99 Room Air 12/28/18 08:00 2.0 12/28/18 07:00 98.2 98.2 Labs: Laboratory Tests Test 12/27/18 16:52 12/27/18 19:24 12/28/18 03:53 12/28/18 07:31 Glucose (Fingerstick) 336 mg/dL 320 mg/dL 265 mg/dL White Blood Count 4.0 x10^3/uL Red Blood Count 3.44 x10^6/uL Hemoglobin 10.7 g/dL Hematocrit 32.9 % Mean Corpuscular Volume 96 fL Mean Corpuscular Hemoglobin 31 pg Mean Corpuscular Hemoglobin Concent 33 g/dL Red Cell Distribution Width 19.6 % Platelet Count 76 x10^3/uL Sodium Level 142 mmol/L Potassium Level 3.5 mmol/L Chloride Level 105 mmol/L Carbon Dioxide Level 26 mmol/L Anion Gap 11 Blood Urea Nitrogen 34 mg/dL Creatinine 5.9 mg/dL Estimated GFR (Cockcroft-Gault) 7.0 Glucose Level 341 mg/dL Calcium Level 8.1 mg/dL Test 12/28/18 11:15 Glucose (Fingerstick) 279 mg/dL BLOOD CULTURE Preliminary NO GROWTH AFTER 2 DAYS PE: GEN: NAD LUNGS: room air HEART: RRR ABD: soft, non-tender NEURO/PSYCH: A & O 3, does seem drowsy A/P: Cirrhosis w/ ascites s/p paracentesis (5L) Chronic anemia, thrombocytopenia, coagulopathy ESRD on HD, s/p RBKA (nonhealing/infection), DM -- Continue Xifaxan and lactulose, also PPI. MELD 25 (on HD, etc.) Plans for home w/ Hospice per PC note. BRENDA DONOVAN December 28, 2018 14:29
[2018-12-28] MEDS: VANCOMYCIN PER PHARMACY MC PRN (16:19)
[2018-12-28] MEDS ORDERED: LOPERAMIDE 2 MG CAPSULE PO PRN (16:30)
--- NOTE | 2018-12-28 17:00 | NUR ---
1630 and 1700 medications had to be manually entered for administration due to computer dying in process of scanning all of them.
[2018-12-28] MEDS: HYDROcodone/APAP 5/325MG 1 TAB TABLET PO PRN (17:18)
[2018-12-29 04:00] LABS: RED BLOOD COUNT 3.27 x10^6/uL (3.50-5.40); RED CELL DISTRIBUTION WIDTH 19.5 % (11.5-14.5); WHITE BLOOD COUNT 3.8 x10^3/uL (4.0-11.0)
[2018-12-29 04:19] LABS: CALCIUM 8.1 mg/dL (8.5-10.1); CREATININE 6.3 mg/dL (0.6-1.0); GFR 6.5; POTASSIUM 3.6 mmol/L (3.5-5.1)
[2018-12-29] MEDS: LEVOTHYROXINE 125 MCG TABLET PO SCH (06:00)
[2018-12-29] MEDS ORDERED: VANCOMYCIN RANDOM LEVEL. MC ONE (06:00)
[2018-12-29] MEDS: PIPERACILLIN/TAZOBACTAM 2.25 GM in IV NORMAL SALINE 50ML 50 ML IV SCH ×2 (06:00→13:53)
[2018-12-29 07:00] VITALS: BP 151/59
[2018-12-29] MEDS: INSULIN LISPRO 300 UNITS/3 ML INSULN.PEN. SQ SCH ×2 (07:30→12:30)
--- NOTE | 2018-12-29 08:19 | SNU/HH DC ---
DISCHARGE WITH HOME HEALTH DISCHARGE INFORMATION: Discharge Date: December 29, 2018 Final Diagnosis: Problems Medical Problems: (1) Altered level of consciousness Status: Acute (2) Amputation stump infection Status: Acute (3) Anemia Status: Acute (4) Chronic kidney disease with end stage renal failure on dialysis Status: Acute (5) Hypoalbuminemia Status: Acute (6) Hypotension Status: Acute (7) Leukopenia Status: Acute (8) Uncontrolled diabetes mellitus Status: Acute (9) UTI (urinary tract infection) Status: Acute Condition on Discharge: Stable CODE STATUS: Code Status: DNR/DNI HOME HEALTH: Face to Face: I certify this patient is under my care and that I, or a nurse practitioner or physician's power plant assistant working with me, had a face to face encounter that meets the physician face to face encounter requirements with this patient on []. Medical Complications: Other (liver cirrhosis with ascites) RN For Eval/Treatment: Yes Home Health Aide For: Self-care Pt Meets Homebound Status: Other: (hospice - no more HD but cont meds including NON comfort meds) POST DISCHARGE ORDERS: Activity Instructions for Disc: Activity as tolerated Weight Bearing Status after Di: As tolerated Bathing Instructions: No Tub Bath until see Dr. GIFFORD AFTER DISCHARGE: Renal Wound/Incision Care: Change dressing CHECKS AFTER DISCHARGE: Checks after discharge: Check blood press - daily, Check your Temp as needed FOLLOW-UP: Follow up with: on hospice TREATMENT/EQUIPMENT ORDERS: Adaptive Equipment Issued: None Discharge Respiratory Equipmen: Oxygen CERTIFICATION STATEMENT: Certification Statement: Certification Statement: Based on the above finding, I certify that this patient is confined to the home and needs intermittent care home care, physical therapy and/or speech therapy, or continues to need occupational therapy.~ This patient is under my care, and I have initiated the establishment of the plan of care.~ This patient will be followed by myself or a community physician who will periodically review the plan of care. Home Meds Active Scripts Amoxicillin/Potassium Clav (AUGMENTIN 875-125 TABLET) 1 Each Tablet, 1 TAB PO BID for Cellulitis for 10 Days, #20 TAB Prov:IVIS SAWYER MD 12/09/18 Lactobacillus Rhamnosus Gg (CULTURELLE) 1 Each Cap.sprink, 1 CAP PO BID for diarrhea for 10 Days, #20 CAP Prov:IVIS SAWYER MD 12/09/18 [Pantoprazole] 40 MG TABLET. No Conflict Check, 40 MG PO DAILYAC for GERD for 30 Days, #30 2 Refills Prov:IVIS SAWYER MD 12/09/18 Rifaximin (XIFAXAN) 550 Mg Tablet, 550 MG PO Q12HR for cirrhosis for 30 Days, #60 TAB Prov:IVIS SAWYER MD 12/09/18 Lorazepam (ATIVAN) 0.5 Mg Tablet, 0.5 MG PO PRN Q6HRS PRN for ANXIETY / AGITATION for 6 Days, #18 TAB Prov:IVIS SAWYER MD 12/09/18 Hydrocodone Bit/Acetaminophen (HYDROCODONE-APAP 5-325 ) 1 Each Tablet, 2 TAB PO PRN Q6HRS PRN for PAIN for 6 Days, #24 TAB 0 Refills Prov:IVIS SAWYER MD 12/09/18 Ondansetron Hcl (ZOFRAN) 4 Mg Tablet, 1 TAB PO Q6HRS, #20 TAB Prov:VANIA CASAREZ APRN 10/15/18 Insulin Glargine,Hum.rec.anlog (LANTUS SOLOSTAR) 100 Unit/1 Ml Insuln.pen, 15 UNITS SQ DAILY for glucose for 28 Days, EACH Prov:FEROZ KELLY MD 09/11/18 Lactulose (LACTULOSE) 20 Gm/30 Ml Solution, 10 GM PO PRN TID PRN for CONSTIPATION for 10 Days, MISC Prov:HANNA VILLEGAS MD 06/20/18 Aspirin (ASPIRIN EC) 325 Mg Tablet., 325 MG PO DAILYWBKFT for 30 Days, #30 TAB.SR Prov:LETICIA BYRNES MD 03/18/17 Reported Medications Melatonin (MELATONIN) 3 Mg Tablet, 6 MG PO QHS for insomnia, TAB 12/06/18 Buspirone Hcl (BUSPIRONE HCL) 10 Mg Tablet, 10 MG PO TIDWMEALS for cirrhosis, TAB 12/06/18 Calcium Acetate (CALCIUM ACETATE) 667 Mg Tablet, 667 MG PO TIDWMEALS for SUPPLEMENT , CAP 10/15/18 Tizanidine Hcl (TIZANIDINE HCL) 2 Mg Capsule, 2 MG PO BID PRN for MUSCLE SPASMS, CAP 03/31/17 Meclizine Hcl (MECLIZINE HCL) 25 Mg Tablet, 1 TAB PO TID, #90 TAB 03/31/17 Diclofenac Sodium (VOLTAREN) 100 Gm Gel..gram., 1 GM TP BID, #100 GM 2 Refills 03/31/17 Clonidine Hcl (CLONIDINE HCL) 0.2 Mg Tablet, 0.2 MG PO DAILY, TAB 03/15/17 Gabapentin (GABAPENTIN ) 100 Mg Capsule, 100 MG PO DAILY, CAP 03/15/17 Sertraline Hcl (ZOLOFT) 50 Mg Tablet, 75 MG PO DAILY for ANTI-DEPRESSANT, TAB 0 Refills 03/15/17 Sevelamer Carbonate (RENVELA) 800 Mg Tablet, 1 TAB PO TIDWMEALS, #270 TAB 3 Refills 03/15/17 Levothyroxine Sodium (LEVOTHYROXINE SODIUM) 175 Mcg Tablet, 125 MCG PO DAILYAC for THYROID SUPPLEMENT, #30 TAB 0 Refills 03/15/17 Multivitamin, Min Cmb#25/Fa/D3 (DIALYVITE SUPREME D TABLET) 1 Each Tablet, 1 EACH PO DAILY, TAB 03/15/17 Metoprolol Succinate (METOPROLOL SUCCINATE ( XL )) 25 Mg Tab.er.24h, 25 MG PO DAILY for FOR HYPERTENSION, #30 TAB 0 Refills 12/05/16 Isosorbide Dinitrate (ISOSORBIDE DINITRATE) 30 Mg Tablet, 1 TAB PO DAILY 09/22/13 HANNA VILLEGAS MD December 29, 2018 08:19
[2018-12-29] MEDS: CALCIUM ACETATE 667 MG CAPSULE PO SCH ×2 (09:19→12:25)
[2018-12-29] MEDS: PANTOPRAZOLE 40 MG TABLET.DR. PO SCH (09:19)
[2018-12-29] MEDS: SERTRALINE 50 MG TABLET. PO SCH (09:19)
[2018-12-29] MEDS: GABAPENTIN 100 MG CAPSULE. PO SCH (09:19)
[2018-12-29] MEDS: SEVELAMER CARBONATE 800 MG TABLET. PO SCH ×2 (09:19→12:25)
[2018-12-29] MEDS: busPIRone 10 MG TABLET. PO SCH ×2 (09:19→12:26)
[2018-12-29] MEDS: MULTIVITAMIN with MINERAL TABLET. PO SCH (09:20)
[2018-12-29] MEDS: MECLIZINE HCL 12.5 MG TABLET. PO SCH ×2 (09:20→13:53)
[2018-12-29] MEDS: LACTOBACILLUS RHAMNOSUS GG 1 CAPSULE. PO SCH (09:20)
[2018-12-29] MEDS: ASPIRIN ENTERIC COATED 325 MG TABLET.DR. PO SCH (09:20)
[2018-12-29] MEDS: METOPROLOL SUCC 24HR ER 25 MG TAB.ER.24H. PO SCH (09:20)
[2018-12-29] MEDS: rifAXIMin 550 MG TABLET PO SCH (09:20)
[2018-12-29] MEDS: DICLOFENAC SODIUM 1% TOPICAL GEL 100GM TUBE. TP SCH (09:21)
[2018-12-29] MEDS: INSULIN GLARGINE 300 UNITS/3 ML INSULN.PEN. SQ SCH (09:30)
--- NOTE | 2018-12-29 10:05 | PDOC ---
Subjective: Subjective: Doing okay, had some loose stools - usually takes Imodium at home. Objective: Objective: D/w RN and ID - plans for home w/ hospice, has stopped dialysis. Vital Signs: Vital Signs Date Time Temp Pulse Resp B/P (MAP) Pulse Ox O2 Delivery O2 Flow Rate FiO2 12/29/18 09:20 62 151/59 12/29/18 07:00 98.2 14 98 Room Air 98.2 12/28/18 08:00 2.0 Labs: Laboratory Tests Test 12/28/18 11:15 12/28/18 16:38 12/28/18 20:08 12/29/18 03:15 Glucose (Fingerstick) 279 mg/dL 216 mg/dL 168 mg/dL White Blood Count 3.8 x10^3/uL Red Blood Count 3.27 x10^6/uL Hemoglobin 10.0 g/dL Hematocrit 31.0 % Mean Corpuscular Volume 95 fL Mean Corpuscular Hemoglobin 31 pg Mean Corpuscular Hemoglobin Concent 32 g/dL Red Cell Distribution Width 19.5 % Platelet Count 67 x10^3/uL Sodium Level 143 mmol/L Potassium Level 3.6 mmol/L Chloride Level 107 mmol/L Carbon Dioxide Level 25 mmol/L Anion Gap 11 Blood Urea Nitrogen 38 mg/dL Creatinine 6.3 mg/dL Estimated GFR (Cockcroft-Gault) 6.5 Glucose Level 138 mg/dL Calcium Level 8.1 mg/dL Random Vancomycin Level 20.3 mcg/mL Test 12/29/18 08:13 Glucose (Fingerstick) 102 mg/dL Urine and blood cs neg, leg cx pending PE: GEN: NAD LUNGS: CTAB HEART: RRR ABD: soft, non-tender NEURO/PSYCH: A & O 3, cheerful A/P: Cirrhosis, ESRD, nonhealing LE wound -- DC plans as above. BRENDA DONOVAN December 29, 2018 10:05
--- NOTE | 2018-12-29 10:07 | PDOC3 ---
Discharge Summary Visit Information Date of Admission: December 26, 2018 Date of Discharge: December 29, 2018 Admitting Diagnosis Comment: Huge ascites, status post large volume paracentesis 12/28/18-5.2 L Status post albumin 150 mL DNR Hospice candidate ESRD on dialysis-we'll stop dialysis once on hospice Anemia of ESRD symptomatic hypotension hypotension on ESRD, at dialysis chronic liver disease severe malnutrition chronic RLE wound, poor wound healing with cellulits, ID Hx C. difficile diarrhea-empirically treated vancomycin Final Diagnosis Problems Medical Problems: (1) Altered level of consciousness Status: Acute (2) Amputation stump infection Status: Acute (3) Anemia Status: Acute (4) Chronic kidney disease with end stage renal failure on dialysis Status: Acute (5) Hypoalbuminemia Status: Acute (6) Hypotension Status: Acute (7) Leukopenia Status: Acute (8) Uncontrolled diabetes mellitus Status: Acute (9) UTI (urinary tract infection) Status: Acute Brief Hospital Course Allergies Allergies Coded Allergies Type Severity Reaction Last Updated Verified adhesive Allergy Intermediate Rash 10/15/18 Yes Vital Signs Vital Signs Date Time Temp Pulse Resp B/P (MAP) Pulse Ox O2 Delivery O2 Flow Rate FiO2 12/29/18 09:20 62 151/59 12/29/18 07:00 98.2 14 98 Room Air 98.2 12/28/18 08:00 2.0 Lab Results Laboratory Tests Test 12/27/18 12:16 12/27/18 16:52 12/27/18 19:24 12/28/18 03:53 Glucose (Fingerstick) 265 mg/dL (70-99) 336 mg/dL (70-99) 320 mg/dL (70-99) White Blood Count 4.0 x10^3/uL (4.0-11.0) Red Blood Count 3.44 x10^6/uL (3.50-5.40) Hemoglobin 10.7 g/dL (12.0-15.5) Hematocrit 32.9 % (36.0-47.0) Mean Corpuscular Volume 96 fL (79-100) Mean Corpuscular Hemoglobin 31 pg (25-35) Mean Corpuscular Hemoglobin Concent 33 g/dL (31-37) Red Cell Distribution Width 19.6 % (11.5-14.5) Platelet Count 76 x10^3/uL (140-400) Sodium Level 142 mmol/L (136-145) Potassium Level 3.5 mmol/L (3.5-5.1) Chloride Level 105 mmol/L (98-107) Carbon Dioxide Level 26 mmol/L (21-32) Anion Gap 11 (6-14) Blood Urea Nitrogen 34 mg/dL (7-20) Creatinine 5.9 mg/dL (0.6-1.0) Estimated GFR (Cockcroft-Gault) 7.0 Glucose Level 341 mg/dL (70-99) Calcium Level 8.1 mg/dL (8.5-10.1) Test 12/28/18 07:31 12/28/18 11:15 12/28/18 16:38 12/28/18 20:08 Glucose (Fingerstick) 265 mg/dL (70-99) 279 mg/dL (70-99) 216 mg/dL (70-99) 168 mg/dL (70-99) Test 12/29/18 03:15 12/29/18 08:13 White Blood Count 3.8 x10^3/uL (4.0-11.0) Red Blood Count 3.27 x10^6/uL (3.50-5.40) Hemoglobin 10.0 g/dL (12.0-15.5) Hematocrit 31.0 % (36.0-47.0) Mean Corpuscular Volume 95 fL (79-100) Mean Corpuscular Hemoglobin 31 pg (25-35) Mean Corpuscular Hemoglobin Concent 32 g/dL (31-37) Red Cell Distribution Width 19.5 % (11.5-14.5) Platelet Count 67 x10^3/uL (140-400) Sodium Level 143 mmol/L (136-145) Potassium Level 3.6 mmol/L (3.5-5.1) Chloride Level 107 mmol/L (98-107) Carbon Dioxide Level 25 mmol/L (21-32) Anion Gap 11 (6-14) Blood Urea Nitrogen 38 mg/dL (7-20) Creatinine 6.3 mg/dL (0.6-1.0) Estimated GFR (Cockcroft-Gault) 6.5 Glucose Level 138 mg/dL (70-99) Calcium Level 8.1 mg/dL (8.5-10.1) Random Vancomycin Level 20.3 mcg/mL Glucose (Fingerstick) 102 mg/dL (70-99) Laboratory Tests Test 12/28/18 11:15 12/28/18 16:38 12/28/18 20:08 12/29/18 03:15 Glucose (Fingerstick) 279 mg/dL (70-99) 216 mg/dL (70-99) 168 mg/dL (70-99) White Blood Count 3.8 x10^3/uL (4.0-11.0) Red Blood Count 3.27 x10^6/uL (3.50-5.40) Hemoglobin 10.0 g/dL (12.0-15.5) Hematocrit 31.0 % (36.0-47.0) Mean Corpuscular Volume 95 fL (79-100) Mean Corpuscular Hemoglobin 31 pg (25-35) Mean Corpuscular Hemoglobin Concent 32 g/dL (31-37) Red Cell Distribution Width 19.5 % (11.5-14.5) Platelet Count 67 x10^3/uL (140-400) Sodium Level 143 mmol/L (136-145) Potassium Level 3.6 mmol/L (3.5-5.1) Chloride Level 107 mmol/L (98-107) Carbon Dioxide Level 25 mmol/L (21-32) Anion Gap 11 (6-14) Blood Urea Nitrogen 38 mg/dL (7-20) Creatinine 6.3 mg/dL (0.6-1.0) Estimated GFR (Cockcroft-Gault) 6.5 Glucose Level 138 mg/dL (70-99) Calcium Level 8.1 mg/dL (8.5-10.1) Random Vancomycin Level 20.3 mcg/mL Test 12/29/18 08:13 Glucose (Fingerstick) 102 mg/dL (70-99) Brief Hospital Course Ms. Douglass is a 73 old very pleasant white female known to me, ESRD dialysis, comes in maybe every 2 months for her centesis large volume. This time needed 5 L out and got albumin 150 mg total. She also has a right AKA stump which seem infected on admission and comanage with ID. She eventually decided on home with hospice, to stop dialysis but continue other meds even the non-40 once. Course remarkable for greater than 5 episodes loose diarrhea. I do remember she does have history of C. difficile. On file she was on vancomycin at one point in time Specimen is still pending. But we will start empirically vancomycin 4 times a day for 14 days or until further recommendations by ID Consults performed by ID, renal Dialysis , wound care Disposition home with home hospice Discharge Information Condition at Discharge: Stable Disposition/Orders: D/C to Home w/ Hospice Scheduled Amoxicillin/Potassium Clav (Augmentin 875-125 Tablet) 1 Each Tablet, 1 TAB PO BID for Cellulitis for 10 Days, #20 Prescribed by: IVIS SAWYER MD on 12/09/18 1306 Last Action: HELD on 12/26/181649 by ROB GAMEZ Aspirin (Aspirin Ec) 325 Mg Tablet.dr, 325 MG PO DAILYWBKFT for 30 Days, #30 Prescribed by: LETICIA BYRNES MD on 03/18/17 0910 Last Action: Continued on 12/26/181649 by ROB GAMEZ Buspirone Hcl (Buspirone Hcl) 10 Mg Tablet, 10 MG PO TIDWMEALS for cirrhosis, (Reported) Entered as Reported by: JOSH GARCIA on 12/06/182203 Last Action: Continued on 12/26/181649 by ROB GAMEZ Calcium Acetate (Calcium Acetate) 667 Mg Tablet, 667 MG PO TIDWMEALS for SUPPLEMENT , (Reported) Entered as Reported by: LESA MEDINA on 10/15/182104 Last Action: Converted on 12/26/181649 by ROB GAMEZ Clonidine Hcl (Clonidine Hcl) 0.2 Mg Tablet, 0.2 MG PO DAILY, (Reported) Entered as Reported by: ERNIE CHENG on 03/15/17148 Last Action: HELD on 12/26/181649 by ROB GAMEZ Diclofenac Sodium (Voltaren) 100 Gm Gel..gram., 1 GM TP BID, #100 Ref 2 (Repo rted) Entered as Reported by: Estefany Martinez on 03/31/17 0853 Last Action: Continued on 12/26/181649 by ROB GAMEZ Gabapentin (Gabapentin ) 100 Mg Capsule, 100 MG PO DAILY, (Reported) Entered as Reported by: ERNIE CHENG on 03/15/17148 Last Action: Continued on 12/26/181649 by ROB GAMEZ Insulin Glargine,Hum.rec.anlog (Lantus Solostar) 100 Unit/1 Ml Insuln.pen, 15 UNITS SQ DAILY for glucose for 28 Days Prescribed by: FEROZ KELLY MD on 09/11/18 1334 Last Action: Continued on 12/26/181649 by ROB GAMEZ Isosorbide Dinitrate (Isosorbide Dinitrate) 30 Mg Tablet, 1 TAB PO DAILY, (Reported) Entered as Reported by: NEAL GAINES on 09/22/13 0635 Last Action: HELD on 12/26/181649 by ROB GAMEZ Lactobacillus Rhamnosus Gg (Culturelle) 1 Each Cap.sprink, 1 CAP PO BID for diarrhea for 10 Days, #20 Prescribed by: IVIS SAWYER MD on 12/09/18 1306 Last Action: Continued on 12/26/181649 by ROB GAMEZ Levothyroxine Sodium (Levothyroxine Sodium) 175 Mcg Tablet, 125 MCG PO DAILYAC for THYROID SUPPLEMENT, #30 Ref 0 (Reported) Entered as Reported by: ERNIE CHENG on 03/15/17147 Last Action: Continued on 12/26/181649 by ROB GAMEZ Meclizine Hcl (Meclizine Hcl) 25 Mg Tablet, 1 TAB PO TID, #90 (Reported) Entered as Reported by: Estefany Martinez on 03/31/17 0853 Last Action: Converted on 12/26/181649 by ROB GAMEZ Melatonin (Melatonin) 3 Mg Tablet, 6 MG PO QHS for insomnia, (Reported) Entered as Reported by: JOSH GARCIA on 12/06/184 Last Action: Converted on 12/26/181649 by ROB GAMEZ Metoprolol Succinate (Metoprolol Succinate ( Xl )) 25 Mg Tab.er.24h, 25 MG PO DAILY for FOR HYPERTENSION, #30 Ref 0 (Reported) Entered as Reported by: ORVILLE SHORT on 12/05/162125 Last Action: Continued on 12/26/181649 by ROB GAMEZ Multivitamin, Min Cmb#25/Fa/D3 (Dialyvite Ali Molina D Tablet) 1 Each Tablet, 1 EACH PO DAILY, (Reported) Entered as Reported by: ERNIE CHENG on 03/15/17147 Last Action: Converted on 12/26/181649 by ROB GAMEZ Ondansetron Hcl (Zofran) 4 Mg Tablet, 1 TAB PO Q6HRS, #20 Prescribed by: Akanksha Lee APRN on 10/15/181737 Last Action: Converted on 12/26/181649 by ROB GAMEZ Rifaximin (Xifaxan) 550 Mg Tablet, 550 MG PO Q12HR for cirrhosis for 30 Days, #60 Prescribed by: IVIS SAWYER MD on 12/09/181305 Last Action: Continued on 12/26/181649 by ROB GAMEZ Sertraline Hcl (Zoloft) 50 Mg Tablet, 75 MG PO DAILY for ANTI-DEPRESSANT, Ref 0 (Reported) Entered as Reported by: ERNIE CHENG on 03/15/17148 Last Action: Continued on 12/26/181649 by ROB GAMEZ Sevelamer Carbonate (Renvela) 800 Mg Tablet, 1 TAB PO TIDWMEALS, #270 Ref 3 (Reported) Entered as Reported by: ERNIE CHENG on 03/15/17148 Last Action: Continued on 12/26/181649 by ROB GAMEZ [Pantoprazole] 40 MG TABLET.DR, 40 MG PO DAILYAC for GERD for 30 Days, #30 Ref 2 Prescribed by: IVIS SAWYER MD on 12/09/181305 Last Action: Converted on 12/26/181649 by ROB GAMEZ Scheduled PRN Hydrocodone Bit/Acetaminophen (Hydrocodone-Apap 5-325 ) 1 Each Tablet, 2 TAB PO PRN Q6HRS PRN for PAIN for 6 Days, #24 Ref 0 Prescribed by: IVIS SAWYER MD on 12/09/181305 Last Action: Continued on 12/26/181649 by ROB GAMEZ Lactulose (Lactulose) 20 Gm/30 Ml Solution, 10 GM PO PRN TID PRN for CONSTIPATION for 10 Days Prescribed by: HANNA VILLEGAS on 06/20/18 0944 Last Action: Continued on 12/26/181649 by ROB GAMEZ Lorazepam (Ativan) 0.5 Mg Tablet, 0.5 MG PO PRN Q6HRS PRN for ANXIETY / AGITATION for 6 Days, #18 Prescribed by: IVIS SAWYER MD on 4/17/19 1306 Last Action: Continued on 12/26/181649 by ROB GAMEZ Tizanidine Hcl (Tizanidine Hcl) 2 Mg Capsule, 2 MG PO BID PRN for MUSCLE SPASMS, (Reported) Entered as Reported by: Estefany Martinez on 03/31/17 0853 Last Action: Converted on 12/26/181649 by HANNA SAM MD December 29, 2018 10:07
[2018-12-29 11:00] VITALS: BP 171/57
--- NOTE | 2018-12-29 11:26 | PDOC ---
Renal-Progress Notes Subjective Notes Notes NONE History of Present Illness Hx of present illness NO CHANGE Vitals Vitals Vital Signs Date Time Temp Pulse Resp B/P (MAP) Pulse Ox O2 Delivery O2 Flow Rate FiO2 12/29/18 09:20 62 151/59 12/29/18 08:00 Room Air 2.0 12/29/18 07:00 98.2 14 98 98.2 Weight Weight [ ] I.O. Intake and Output Intake and Output 12/29/18 07:00 Intake Total 1407 ml Output Total 5200 ml Balance -3793 ml Intake Oral 1407 ml Output Drainage Total 5200 ml # Voids 3 # Bowel Movements 12 Labs Labs Laboratory Tests Test 12/28/18 16:38 12/28/18 20:08 12/29/18 03:15 12/29/18 08:13 Glucose (Fingerstick) 216 mg/dL (70-99) 168 mg/dL (70-99) 102 mg/dL (70-99) White Blood Count 3.8 x10^3/uL (4.0-11.0) Red Blood Count 3.27 x10^6/uL (3.50-5.40) Hemoglobin 10.0 g/dL (12.0-15.5) Hematocrit 31.0 % (36.0-47.0) Mean Corpuscular Volume 95 fL (79-100) Mean Corpuscular Hemoglobin 31 pg (25-35) Mean Corpuscular Hemoglobin Concent 32 g/dL (31-37) Red Cell Distribution Width 19.5 % (11.5-14.5) Platelet Count 67 x10^3/uL (140-400) Sodium Level 143 mmol/L (136-145) Potassium Level 3.6 mmol/L (3.5-5.1) Chloride Level 107 mmol/L (98-107) Carbon Dioxide Level 25 mmol/L (21-32) Anion Gap 11 (6-14) Blood Urea Nitrogen 38 mg/dL (7-20) Creatinine 6.3 mg/dL (0.6-1.0) Estimated GFR (Cockcroft-Gault) 6.5 Glucose Level 138 mg/dL (70-99) Calcium Level 8.1 mg/dL (8.5-10.1) Random Vancomycin Level 20.3 mcg/mL Micro Micro Microbiology 12/26/18 Blood Culture - Preliminary, Resulted NO GROWTH AFTER 2 DAYS 12/26/18 Urine Culture - Final, Complete 12/26/18 Urine Culture Result 1 (DARIN) - Final, Complete 12/26/18 Anaerobic/Aerobic Culture, Resulted Pending 12/26/18 Anaerobic Culture Result 1 (DARIN), Resulted Pending 12/26/18 Anaerobic Culture Result 2 (DARIN), Resulted Pending 12/26/18 Anaerobic Culture Result 3 (DARIN), Resulted Pending 12/26/18 Anaerobic Culture Result 4 (DARIN), Resulted Pending 12/26/18 Antimicrobic Susceptibility, Resulted Pending 12/26/18 Aerobic Culture, Resulted Pending 12/26/18 Aerobic Culture Result 1 (DRAIN), Resulted Pending 12/26/18 Aerobic Culture Result 2 (DARIN), Resulted Pending 12/26/18 Aerobic Culture Result 3 (DARIN), Resulted Pending 12/26/18 Aerobic Culture Result 4 (DARIN), Resulted Pending 12/26/18 Antimicrobic Susceptibility, Resulted Pending 12/26/18 Gram Stain - Final, Resulted 12/26/18 Gram Stain Result 1 (DARIN) - Final, Resulted 12/26/18 Gram Stain Result 2 (DARIN) - Final, Resulted 12/26/18 Gram Stain Result 3 (DARIN), Resulted Pending 12/26/18 Gram Stain Result 4 (DARIN), Resulted Pending Review of Systems Constitutional: yes: other (CONFUSED) Physical Exam General Appearance: no apparent distress Skin: warm Respiratory: decreased breath sounds Heart: S1S2, RRR Abdomen: distension, other (ASCITES) Musculoskeletal: Osteoarthritis Assessment Assessment IMP HYPOTENSION CHRONIC LIVER DZ ASCITES ANEMIA ESRD MALNUTRITION RIGHT BKA STUMP WOUND PANCYTOPENIA DUE TO LIVER DISEASE ENCEPHALOPATHY PLAN HOSPICE PLANS NOTED WILL SIGN OFF WILL NOTIFY OP HD CENTER OPAL RUBI MD December 29, 2018 11:26
[2018-12-29] MEDS: VANCOMYCIN 125 MG/2.5 ML ORAL SOLUTION. PO SCH ×2 (12:26→13:00)
--- NOTE | 2018-12-29 12:55 | PDOC ---
Infectious Disease Note Subjective: Subjective pt is doing ok going on hospice per team Vital Signs: Vital Signs Vital Signs Date Time Temp Pulse Resp B/P (MAP) Pulse Ox O2 Delivery O2 Flow Rate FiO2 12/29/18 11:00 98.4 63 14 171/57 (95) 91 Room Air 98.4 12/29/18 08:00 2.0 Physical Exam: PHYSICAL EXAM GENERAL: Propped up in bed, alert, HEENT: Pupils equally round, reactive. Normal conjunctivae. Oral cavity/pharynx pink and moist. Dentures NECK: Supple. LUNGS: Clear to auscultation. HEART: S1, S2. ABDOMEN: Mildly distended with ascites. Soft and nontender with bowel sounds present. She has a hernia. EXTREMITIES: No gross edema or cyanosis. Right BKA stump wound mildly erythematous with strong malodor and nonviable tissue and drainage. Right AV fistula is unremarkable. LLE 2+ edema SKIN: Warm without generalized rash. NEUROLOGIC: Alert, responding appropriately PIV ok Medications: Inpatient Meds: Current Medications Medications (Trade) Dose Ordered Sig/Vijay Start Time Stop Time Status Last Admin Dose Admin Acetaminophen/ Hydrocodone Bitart (Lortab 5/325) 2 tab PRN Q6HRS PRN 12/26/18 17:00 12/28/18 17:18 2 TAB Albumin Human 50 ml @ 50 mls/hr 1X ONCE 12/28/18 11:00 12/28/18 11:59 DC 12/28/18 11:00 50 MLS/HR Aspirin (Ecotrin) 325 mg DAILYWBKFT 12/27/18 08:00 12/29/18 09:20 325 MG Buspirone HCl (Buspar) 10 mg TIDWMEALS 12/26/18 17:00 12/29/18 12:26 10 MG Calcium Acetate (Phoslo) 667 mg TIDWMEALS 12/26/18 17:00 12/29/18 12:25 667 MG Ceftriaxone Sodium (Rocephin) 1 gm 1X ONCE 12/26/18 15:00 12/26/18 15:01 DC 12/26/18 15:38 1 GM Darbepoetin Brandan (Aranesp) 60 mcg WEEKLYHS 12/27/18 21:00 12/27/18 21:33 60 MCG Dextrose (Dextrose 50%-Water Syringe) 12.5 gm PRN Q15MIN PRN 12/27/18 20:30 Diclofenac Sodium (Voltaren) 1 ronel BID 12/26/18 21:00 12/29/18 09:21 1 RONEL Gabapentin (Neurontin) 100 mg DAILY 12/27/18 09:00 12/29/18 09:19 100 MG Insulin Glargine (Lantus) 15 units BID 12/27/18 21:15 12/29/18 09:30 15 UNITS Insulin Human Lispro (HumaLOG) 0-7 UNITS TIDACHC 12/27/18 21:00 12/29/18 12:30 3 UNITS Lactobacillus Rhamnosus (Culturelle) 1 cap BID 12/26/18 21:00 12/29/18 09:20 1 CAP Lactulose (Lactulose) 10 gm PRN TID PRN 12/26/18 17:00 Levothyroxine Sodium (Synthroid) 125 mcg DAILY06 12/27/18 06:00 12/29/18 06:00 125 MCG Loperamide HCl (Imodium) 2 mg PRN Q2HR PRN 12/28/18 16:30 12/28/18 17:18 2 MG Lorazepam (Ativan) 0.5 mg PRN Q6HRS PRN 12/26/18 17:00 Meclizine HCl (Antivert) 25 mg TID 12/26/18 21:00 12/29/18 09:20 25 MG Metoprolol Succinate (Toprol Xl) 25 mg DAILY 12/27/18 09:00 12/29/18 09:20 25 MG Multivitamins (Thera M Plus) 1 tab DAILY 12/27/18 09:00 12/29/18 09:20 1 TAB Non-Formulary Medication (Melatonin ) 6 mg QHS 12/26/18 21:00 UNV Non-Formulary Medication (Ondansetron Hcl (Zofran)) 1 tab Q6HRS 12/26/18 18:00 UNV Pantoprazole Sodium (Protonix) 40 mg DAILYAC 12/27/18 07:30 12/29/18 09:19 40 MG Piperacillin Sod/ Tazobactam Sod (Zosyn Per Pharmacy) 1 each PRN DAILY PRN 12/27/18 11:45 Piperacillin Sod/ Tazobactam Sod 2.25 gm/Sodium Chloride 50 ml @ 100 mls/hr Q8HRS 12/27/18 13:00 12/29/18 06:00 100 MLS/HR Rifaximin (Xifaxan) 550 mg Q12HR 12/26/18 21:00 12/29/18 09:20 550 MG Sertraline HCl (Zoloft) 75 mg DAILY 12/27/18 09:00 12/29/18 09:19 75 MG Sevelamer Carbonate (Renvela) 800 mg TIDWMEALS 12/26/18 17:00 12/29/18 12:25 800 MG Sodium Chloride 500 ml @ 500 mls/hr 1X ONCE 12/26/18 15:00 12/26/18 15:59 DC 12/26/18 15:39 500 MLS/HR Tizanidine HCl (Zanaflex) 4 mg PRN BID PRN 12/26/18 17:00 12/26/18 20:29 4 MG Vancomycin HCl (Vanco Per Pharmacy) 1 each PRN DAILY PRN 12/27/18 18:00 12/28/18 16:19 1 EACH Vancomycin HCl (Vancomycin Random Level) 1 each 1X ONCE 12/29/18 06:00 12/29/18 06:01 DC 12/29/18 06:00 1 EACH Vancomycin HCl (Vancomycin Oral Solution) 125 mg [id number] 12/29/18 10:30 12/29/18 12:26 125 MG Vancomycin HCl 2 gm/Sodium Chloride 500 ml @ 250 mls/hr 1X ONCE 12/27/18 18:00 12/27/18 19:59 DC 12/27/18 18:00 250 MLS/HR Labs: Lab Laboratory Tests Test 12/28/18 16:38 12/28/18 20:08 12/29/18 03:15 12/29/18 08:13 Glucose (Fingerstick) 216 mg/dL (70-99) 168 mg/dL (70-99) 102 mg/dL (70-99) White Blood Count 3.8 x10^3/uL (4.0-11.0) Red Blood Count 3.27 x10^6/uL (3.50-5.40) Hemoglobin 10.0 g/dL (12.0-15.5) Hematocrit 31.0 % (36.0-47.0) Mean Corpuscular Volume 95 fL (79-100) Mean Corpuscular Hemoglobin 31 pg (25-35) Mean Corpuscular Hemoglobin Concent 32 g/dL (31-37) Red Cell Distribution Width 19.5 % (11.5-14.5) Platelet Count 67 x10^3/uL (140-400) Sodium Level 143 mmol/L (136-145) Potassium Level 3.6 mmol/L (3.5-5.1) Chloride Level 107 mmol/L (98-107) Carbon Dioxide Level 25 mmol/L (21-32) Anion Gap 11 (6-14) Blood Urea Nitrogen 38 mg/dL (7-20) Creatinine 6.3 mg/dL (0.6-1.0) Estimated GFR (Cockcroft-Gault) 6.5 Glucose Level 138 mg/dL (70-99) Calcium Level 8.1 mg/dL (8.5-10.1) Random Vancomycin Level 20.3 mcg/mL Test 12/29/18 11:53 Glucose (Fingerstick) 164 mg/dL (70-99) Plan: Plan of Care as above in subjective call us with any questions MARTIN ALONZO MD December 29, 2018 12:55
[2018-12-29 15:00] VITALS: BP 170/60
--- NOTE | 2018-12-29 15:53 | NUR ---
SW following pt. Hospice orders faxed to [facility]. Spoke with Ivette at [facility] and confirmed equipment will be delivered today between [id number]. Pt's granddaughter, Angela requested for a transport time [phone] and KEITH arranged transport via [facility]. LATASHA RAYMUNDO.
--- NOTE | 2018-12-29 16:30 | NUR ---
Discharge Note: YIN DIAZ [address] [place] [address] Discharge instructions and discharge home medications reviewed with Patient and a copy given. All questions have been answered and understanding verbalized. Discontinued lines and drains: Peripheral IV intact. Patient discharged to Home with Hospice with Ambulance Personnel via [facility]. Notified patient granddaughter, Angela, via [phone].
== END 2018-12-29 16:30 | disposition hospice, home (50) | DRG 564 ==
LOC: ER 12:44 → 6 SOUTH 14:48
PROVIDERS: ADMIT Internal Medicine; ATTEND Internal Medicine
PROC: 0W9G3ZZ Drainage of Peritoneal Cavity, Percutaneous Approach (ICD-10-PCS; principal; 2018-12-28)
DX: T87.43 Infection of amputation stump, right lower extremity (principal); E43 Unspecified severe protein-calorie malnutrition; N18.6 End stage renal disease; I13.2 Hypertensive heart and chronic kidney disease with heart failure and with stage 5 chronic kidney disease, or end stage renal disease; N39.0 Urinary tract infection, site not specified; D61.818 Other pancytopenia; R18.8 Other ascites; I47.2 Ventricular tachycardia; L03.90 Cellulitis, unspecified; D68.9 Coagulation defect, unspecified; I95.3 Hypotension of hemodialysis; I50.9 Heart failure, unspecified; K74.60 Unspecified cirrhosis of liver; J44.9 Chronic obstructive pulmonary disease, unspecified; F41.9 Anxiety disorder, unspecified; E11.22 Type 2 diabetes mellitus with diabetic chronic kidney disease; E11.42 Type 2 diabetes mellitus with diabetic polyneuropathy; E11.65 Type 2 diabetes mellitus with hyperglycemia; E03.9 Hypothyroidism, unspecified; K75.9 Inflammatory liver disease, unspecified; F32.9 Major depressive disorder, single episode, unspecified; M65.30 Trigger finger, unspecified finger; H26.9 Unspecified cataract; G56.03 Carpal tunnel syndrome, bilateral upper limbs; D63.1 Anemia in chronic kidney disease; M19.90 Unspecified osteoarthritis, unspecified site; G47.00 Insomnia, unspecified; K21.9 Gastro-esophageal reflux disease without esophagitis; Y83.5 Amputation of limb(s) as the cause of abnormal reaction of the patient, or of later complication, without mention of misadventure at the time of the procedure; E11.51 Type 2 diabetes mellitus with diabetic peripheral angiopathy without gangrene; K72.90 Hepatic failure, unspecified without coma; E78.5 Hyperlipidemia, unspecified; Z66 Do not resuscitate; Z51.5 Encounter for palliative care; L28.0 Lichen simplex chronicus; Z86.73 Personal history of transient ischemic attack (TIA), and cerebral infarction without residual deficits; Z90.710 Acquired absence of both cervix and uterus; Z89.511 Acquired absence of right leg below knee; Z83.3 Family history of diabetes mellitus; Z99.2 Dependence on renal dialysis; Z89.611 Acquired absence of right leg above knee; Z87.440 Personal history of urinary (tract) infections; Z79.899 Other long term (current) drug therapy; Z79.4 Long term (current) use of insulin; Z87.891 Personal history of nicotine dependence; Z68.35 Body mass index [BMI] 35.0-35.9, adult
CPT/HCPCS: 36415; 49083; 71045; 80048; 80053; 80202; 81001; 82550; 82962; 83605; 83735; 84484; 85025; 85027; 85610; 87040; 87070; 87071; 87075; 87086; 87186; 87493; 87641; 93005; 96365; 96375; 99291; 99292; J0696; J0881; J1815; J2543; J3370; J7040; J8597; P9041; P9046